=== PATIENT | male | born 1940 | race Caucasian/White ===

== ENCOUNTER 2020-01-28 10:15 | Outpatient (REF) | payer MEDICARE, OTHER, SELFPAY ==
[2020-01-28 11:51] LABS: Glucose Urine UA NEG (NEG); Leukocyte Esterase Urine NEG (NEG); Nitrite Urine NEG (NEG); PH 6.5 (5.0-8.0); Urine Blood NEG (NEG); Urine Ketones NEG (NEG); Urine Protein NEG (NEG-TRACE)
[2020-01-28 11:57] LABS: Appearance Urine CLEAR; Color Urine YELLOW; UACC Culture Trigger NO
== END 2020-01-28 10:16 | disposition home or self-care (01) ==
LOC: HO.HMGCLDS 10:15
PROVIDERS: PCP Internal Medicine; Visit Provider Internal Medicine
DX: R35.1 Nocturia (principal)
CPT/HCPCS: 81003

== ENCOUNTER → 2020-03-16 13:49 | Outpatient (BNVA) | payer MEDICARE, OTHER, SELFPAY | PROVIDERS: PCP Internal Medicine; Referring Provider Internal Medicine; Visit Provider Urology | DX: N40.1 Benign prostatic hyperplasia with lower urinary tract symptoms (principal); N13.8 Other obstructive and reflux uropathy; R35.1 Nocturia | CPT/HCPCS: 51798; 99202 ==

== ENCOUNTER 2020-06-16 10:33 | Outpatient (REF) | payer MEDICARE, OTHER, SELFPAY ==
[2020-06-16 14:46] LABS: Alanine Aminotransferase 9 U/L (0-40); Albumin Level 4.1 g/dL (3.5-5.0); Alkaline Phosphatase 71 U/L (39-117); Anion Gap 13 (12-20); Aspartate Amino Transferase 17 U/L (5-37); Bilirubin Total 1.1 mg/dL (0.0-1.0); Blood Urea Nitrogen 14 mg/dL (9-16); Calcium 9.3 mg/dL (8.4-10.2); Carbon Dioxide 30 mmol/L (22-29); Chloride 104 mmol/L (96-108); Cholesterol 141 mg/dL; Estimated Glomerular Filt Rate > 60; Glucose Fasting 78 mg/dL (60-99); HDL Cholesterol 42 mg/dL; LDL Cholesterol Calculated 85 mg/dl; Potassium 4.9 mmol/L (3.3-5.1); Sodium 142 mmol/L (135-145); Total Protein 6.8 g/dL (6.5-8.0); Triglycerides 72 mg/dL
[2020-06-16 15:07] LABS: TSH reflex Free T4 0.63 uIU/mL (0.32-4.0)
== END 2020-06-16 10:34 | disposition home or self-care (01) ==
LOC: HO.HMGCLDS 10:33
PROVIDERS: PCP Internal Medicine; Visit Provider Internal Medicine
DX: E78.9 Disorder of lipoprotein metabolism, unspecified (principal); E03.8 Other specified hypothyroidism; I10 Essential (primary) hypertension
CPT/HCPCS: 36415; 80053; 80061; 84443

== ENCOUNTER 2020-07-05 08:11 | Outpatient (REF) | payer MEDICARE, OTHER, SELFPAY ==
--- NOTE | ~2020-07-05 | XR_ITS ---
EXAMINATION: XR SHOULDER, RIGHT CLINICAL INFORMATION: Right shoulder pain. COMPARISON: None TECHNIQUE: Three views of the right shoulder. FINDINGS: The bony alignments are intact. The cortices are intact. Mild osteophyte formation is noted at the articular surface of the glenohumeral joint. Soft tissues are unremarkable. Subacromial osteophyte formation is present. XR/XR shoulder RT min 2V IMPRESSION: 1. 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 2. Subacromial osteophyte.
== END 2020-07-05 08:12 | disposition home or self-care (01) ==
LOC: HO.HOSX 08:11
PROVIDERS: Visit Provider Orthopaedic Surgery
DX: M25.511 Pain in right shoulder (principal)
CPT/HCPCS: 73030; 99202

== ENCOUNTER 2020-08-19 13:00 | Outpatient (RCR) | payer MEDICARE, OTHER, SELFPAY ==
--- NOTE | 2020-07-22 14:34 | MHC.PT.EP ---
[facility] [place] Office [place] Office [place] Office [address] [phone] F: [phone] F: [phone] F: [phone] F: [phone] Physical Therapy Plan of Care Date of Evaluation: Date of Surgery: n/a Diagnosis: R rotator cuff tear Assessment: Patient is a 79 year old R handed male who presents with s/s consistent with rotator cuff tear R shoulder. 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 Patient past medical history includes HTN. Otherwise, PMH is non-contributory. Current impairments include pain, ROM, strength, safety, independence, activity tolerance and functional mobility. Functional limitations include decreased ability to walk, stand, transfer, negotiate stairs, and perform weight bearing activities.. Patient is motivated with good rehab potential. Skilled PT will address impairments and functional limitations in order to achieve goals. Frequency and Duration: The patient will be seen 2x/week for 5 weeks Short Term Goals: I with HEP - 2weeks flexion and abd to 140, pain free - 3 weeks minor pec tightness - 3 weeks Choke Setter Goals: SPADI 30/130 or less - 5 weeks Strength 4-/5 ER and abd - 5 weeks Max pain with ADLs 2/10 - 5 weeks Treatment Plan: Modalities to reduce pain, spasms and effusion. Manual therapy to restore motion and function. Therapeutic exercise to improve strength and flexibility. Neuromuscular re-education for posture and balance. Therapeutic activities to return to functional activities of daily living. Electronically signed by: Dimitris Laguna, PT Please sign and return to therapist. Thank you for your referral.
--- NOTE | 2020-08-19 14:10 | MHC.PT.DC ---
[facility] [place] Office [place] Office [place] Office [address] Corinna Sorai [address] [phone] F: [phone] F: [phone] F: [phone] F: [phone] Physical Therapy Discharge Report Diagnosis: R rotator cuff tear Date of Surgery: n/a Date of Evaluation: 07/22/20 Date of Discharge: 08/19/20 Treatments to Date: 9 Cancellations to Date: 0 No Shows to Date: 0 Discharge Status: Improved Function Independent with HEP Discharge Summary: Pt demonstrates compliance with HEP and good technique. Minimal-no cues needed. He has met most of his goals. His AROM in standing is ~100 and in supine is WFL. He is now able to perform grooming and reaching into overhead cabinets. Pt to be d/c to I HEP. Electronically signed by: Daysi Ashford PT Please sign and return to therapist. Thank you for your referral.
== END 2020-08-19 14:11 | disposition home or self-care (01) ==
LOC: HO.PTCHIC 13:00
PROVIDERS: PCP Internal Medicine; Visit Provider Orthopaedic Surgery
DX: M75.101 Unspecified rotator cuff tear or rupture of right shoulder, not specified as traumatic (principal)
CPT/HCPCS: 97110; 97140; 97161

== ENCOUNTER 2021-01-07 12:35 | Outpatient (REF) | payer MEDICARE, OTHER, SELFPAY ==
[2021-01-07 13:42] LABS: MANUAL DIFF FLAG NO
[2021-01-07 13:51] LABS: Basophils Absolute Auto 0.1 X10*3/uL (0.0-0.2); Eosinophils Absolute Auto 0.3 X10*3/uL (0.0-0.4); Eosinophils Percent Auto 3.6 % (0-4); Hemoglobin 11.3 g/dl (14.0-18.0); Imm Gran Abs Auto 0.02 X10*3/uL (0.00-0.03); Imm Gran Pct Auto 0.3 % (0.0-0.4); Lymphocytes Percent Auto 28.5 % (20-40); Mean Corpuscular HGB Conc 30.5 g/dl (31.0-36.0); Mean Corpuscular Hemoglobin 25.2 pg (27.0-33.0); Mean Corpuscular Volume 82.4 fL (80-98); Mean Platelet Volume 10.1 fL (9.4-12.4); Monocytes Absolute Auto 0.6 X10*3/uL (0.1-1.2); Monocytes Percent Auto 8.3 % (2-11); Neutrophils Absolute Auto 4.1 X10*3/uL (2.0-8.3); Neutrophils Percent Auto 58.3 % (45-73); Platelet Count 276 X10*3/uL (160-400); Red Blood Count 4.49 X10*6/uL (4.60-5.80); Red Cell Distribution Width 15.9 % (11.0-16.0)
[2021-01-07 14:28] LABS: Alanine Aminotransferase 12 U/L (0-40); Albumin Level 4.1 g/dL (3.5-5.0); Alkaline Phosphatase 68 U/L (39-117); Anion Gap 9 (12-20); Aspartate Amino Transferase 20 U/L (5-37); Bilirubin Total 0.6 mg/dL (0.0-1.0); Blood Urea Nitrogen 18 mg/dL (9-16); Calcium 9.4 mg/dL (8.4-10.2); Carbon Dioxide 28 mmol/L (22-29); Chloride 110 mmol/L (96-108); Estimated Glomerular Filt Rate > 60; Glucose Random 83 mg/dL (60-115); Iron 23 mcg/dL (45-160); Percent Iron Saturation 7 % (15-50); Potassium 4.4 mmol/L (3.3-5.1); Sodium 143 mmol/L (135-145); Total Iron Binding Capacity 338 mcg/dL (228-428); Total Protein 6.8 g/dL (6.5-8.0); Unsaturated Iron Binding 315 ug/dL
[2021-01-07 14:45] LABS: TSH reflex Free T4 0.36 uIU/mL (0.32-4.0)
[2021-01-07 15:09] LABS: Vitamin B12 158 pg/mL (200-900)
== END 2021-01-07 12:36 | disposition home or self-care (01) ==
LOC: HO.HMGCLDS 12:35
PROVIDERS: PCP Internal Medicine; Visit Provider Internal Medicine
DX: D64.9 Anemia, unspecified (principal); D35.2 Benign neoplasm of pituitary gland; E03.8 Other specified hypothyroidism; E78.9 Disorder of lipoprotein metabolism, unspecified; I10 Essential (primary) hypertension
CPT/HCPCS: 36415; 80053; 82607; 83540; 84443; 85025

== ENCOUNTER → 2021-02-07 14:05 | Outpatient (BNVA) | payer MEDICARE, OTHER, SELFPAY | PROVIDERS: PCP Internal Medicine; Visit Provider Orthopaedic Surgery | DX: M75.101 Unspecified rotator cuff tear or rupture of right shoulder, not specified as traumatic (principal) | CPT/HCPCS: 99212 ==

== ENCOUNTER 2021-03-10 12:11 | Outpatient (REF) | payer MEDICARE, OTHER, SELFPAY ==
[2021-03-10 14:33] LABS: Prostate Specific Antigen 1.41 ng/mL (<0.05-4.0)
== END 2021-03-10 12:12 | disposition home or self-care (01) ==
LOC: HO.HMGCLDS 12:11
PROVIDERS: PCP Internal Medicine; Visit Provider Urology
DX: Z12.5 Encounter for screening for malignant neoplasm of prostate (principal); N40.1 Benign prostatic hyperplasia with lower urinary tract symptoms; N13.8 Other obstructive and reflux uropathy
CPT/HCPCS: 36415; 84153

== ENCOUNTER → 2021-03-17 11:25 | Outpatient (BNVA) | payer MEDICARE, OTHER, SELFPAY | PROVIDERS: PCP Internal Medicine; Visit Provider Urology | DX: N40.1 Benign prostatic hyperplasia with lower urinary tract symptoms (principal); N13.8 Other obstructive and reflux uropathy; R35.1 Nocturia | CPT/HCPCS: 99212 ==

== ENCOUNTER 2021-07-08 11:57 | Outpatient (REF) | payer MEDICARE, OTHER, SELFPAY ==
[2021-07-08 13:42] LABS: MANUAL DIFF FLAG NO
[2021-07-08 13:43] LABS: Basophils Absolute Auto 0.1 X10*3/uL (0.0-0.2); Basophils Percent Auto 0.9 % (0-2); Eosinophils Absolute Auto 0.3 X10*3/uL (0.0-0.4); Eosinophils Percent Auto 3.9 % (0-4); Hematocrit 46.4 % (42.0-52.0); Imm Gran Abs Auto 0.02 X10*3/uL (0.00-0.03); Imm Gran Pct Auto 0.3 % (0.0-0.4); Mean Corpuscular HGB Conc 32.3 g/dl (31.0-36.0); Mean Corpuscular Hemoglobin 29.8 pg (27.0-33.0); Mean Corpuscular Volume 92.2 fL (80.0-98.0); Mean Platelet Volume 9.6 fL (9.4-12.4); Monocytes Absolute Auto 0.5 X10*3/uL (0.1-1.2); Monocytes Percent Auto 7.1 % (2-11); Neutrophils Percent Auto 58.8 % (45-73); Platelet Count 219 X10*3/uL (160-400); Red Blood Count 5.03 X10*6/uL (4.60-5.80); Red Cell Distribution Width 14.6 % (11.0-16.0); White Blood Count 6.9 X10*3/uL (4.8-10.8)
[2021-07-08 14:06] LABS: Alanine Aminotransferase 17 U/L (0-40); Albumin Level 3.9 g/dL (3.5-5.0); Alkaline Phosphatase 67 U/L (39-117); Anion Gap 10 (12-20); Aspartate Amino Transferase 19 U/L (5-37); Bilirubin Total 0.8 mg/dL (0.0-1.0); Blood Urea Nitrogen 19 mg/dL (9-16); Calcium 9.6 mg/dL (8.4-10.2); Carbon Dioxide 28 mmol/L (22-29); Chloride 108 mmol/L (96-108); Estimated Glomerular Filt Rate > 60; Glucose Random 113 mg/dL (60-115); Potassium 4.1 mmol/L (3.3-5.1); Sodium 142 mmol/L (135-145); Total Protein 6.6 g/dL (6.5-8.0)
[2021-07-08 14:21] LABS: Vitamin B12 755 pg/mL (200-900)
[2021-07-08 14:31] LABS: Ferritin 81 ng/mL (20-250); TSH reflex Free T4 0.44 uIU/mL (0.32-4.0)
== END 2021-07-08 11:58 | disposition home or self-care (01) ==
LOC: HO.HMGCLDS 11:57
PROVIDERS: Visit Provider Internal Medicine
DX: D64.9 Anemia, unspecified (principal); D35.2 Benign neoplasm of pituitary gland; E03.8 Other specified hypothyroidism; E66.09 Other obesity due to excess calories; E78.9 Disorder of lipoprotein metabolism, unspecified; I10 Essential (primary) hypertension; R35.1 Nocturia
CPT/HCPCS: 36415; 80053; 82607; 82728; 84443; 85025

== ENCOUNTER 2022-02-07 09:00 | Outpatient (REF) | payer MEDICARE, OTHER, SELFPAY ==
[2022-02-07 11:32] LABS: MANUAL DIFF FLAG NO
[2022-02-07 11:42] LABS: Basophils Absolute Auto 0.1 X10*3/uL (0.0-0.2); Basophils Percent Auto 0.8 % (0-2); Eosinophils Absolute Auto 0.3 X10*3/uL (0.0-0.4); Eosinophils Percent Auto 4.3 % (0-4); Hematocrit 49.4 % (42.0-52.0); Hemoglobin 15.8 g/dl (14.0-18.0); Imm Gran Abs Auto 0.01 X10*3/uL (0.00-0.03); Imm Gran Pct Auto 0.2 % (0.0-0.4); Lymphocytes Absolute Auto 1.7 X10*3/uL (1.2-4.9); Lymphocytes Percent Auto 26.4 % (20-40); Mean Corpuscular Hemoglobin 30.4 pg (27.0-33.0); Mean Corpuscular Volume 95.2 fL (80.0-98.0); Mean Platelet Volume 9.7 fL (9.4-12.4); Monocytes Absolute Auto 0.6 X10*3/uL (0.1-1.2); Monocytes Percent Auto 8.4 % (2-11); Neutrophils Absolute Auto 3.9 x10*3/uL (2.0-8.3); Neutrophils Percent Auto 59.9 % (45-73); Platelet Count 199 X10*3/uL (160-400); Red Blood Count 5.19 X10*6/uL (4.60-5.80); Red Cell Distribution Width 13.2 % (11.0-16.0); White Blood Count 6.6 X10*3/uL (4.8-10.8)
[2022-02-07 12:04] LABS: Alanine Aminotransferase 16 U/L (0-40); Albumin Level 4.4 g/dL (3.5-5.0); Alkaline Phosphatase 70 U/L (39-117); Anion Gap 12 (12-20); Aspartate Amino Transferase 18 U/L (5-37); Bilirubin Total 0.9 mg/dL (0.0-1.0); Blood Urea Nitrogen 22 mg/dL (9-16); Calcium 10.6 mg/dL (8.4-10.2); Carbon Dioxide 31 mmol/L (22-29); Chloride 105 mmol/L (96-108); Cholesterol 148 mg/dL; Estimated Glomerular Filt Rate > 60; Glucose Fasting 97 mg/dL (60-99); HDL Cholesterol 47 mg/dL; LDL Cholesterol Calculated 92 mg/dl; Potassium 4.6 mmol/L (3.3-5.1); Sodium 143 mmol/L (135-145); Total Protein 7.3 g/dL (6.5-8.0); Triglycerides 46 mg/dL
[2022-02-07 12:19] LABS: Ferritin 61 ng/mL (20-250)
[2022-02-07 12:32] LABS: Vitamin B12 341 pg/mL (200-900)
[2022-02-11 14:07] LABS: Vitamin D 25-OH, D2 <4 ng/mL; Vitamin D 25-OH, D3 31 ng/mL; Vitamin D 25-OH, Total 31 ng/mL (30-100)
== END 2022-02-07 09:01 | disposition home or self-care (01) ==
LOC: HO.HMGCLDS 09:00
PROVIDERS: PCP Internal Medicine; Visit Provider Internal Medicine
DX: D35.2 Benign neoplasm of pituitary gland (principal); D64.9 Anemia, unspecified; E03.8 Other specified hypothyroidism; E53.8 Deficiency of other specified B group vitamins; E55.9 Vitamin D deficiency, unspecified; E66.09 Other obesity due to excess calories; E78.9 Disorder of lipoprotein metabolism, unspecified; R35.1 Nocturia; I10 Essential (primary) hypertension
CPT/HCPCS: 36415; 80053; 80061; 82306; 82607; 82728; 84443; 85025

== ENCOUNTER 2022-03-16 09:23 | Outpatient (REF) | payer MEDICARE, OTHER, SELFPAY ==
[2022-03-17 07:26] LABS: Urine Cytology See Pathology rpt
== END 2022-03-16 09:24 | disposition home or self-care (01) ==
LOC: HO.LAB 09:23
PROVIDERS: PCP Internal Medicine; Visit Provider Nurse Practitioner Family
DX: R31.29 Other microscopic hematuria (principal); N40.1 Benign prostatic hyperplasia with lower urinary tract symptoms; N13.8 Other obstructive and reflux uropathy
CPT/HCPCS: 51798; 88112; 99212

== ENCOUNTER 2022-03-24 14:55 | Outpatient (REF) | payer MEDICARE, OTHER, SELFPAY ==
[2022-03-24 17:13] LABS: PSA,Total (Free>4and<10) 1.59 ng/mL (0.00-4.00)
== END 2022-03-24 14:56 | disposition home or self-care (01) ==
LOC: HO.HMGCLDS 14:55
PROVIDERS: PCP Internal Medicine; Visit Provider Nurse Practitioner Family
DX: E11.69 Type 2 diabetes mellitus with other specified complication (principal); N52.1 Erectile dysfunction due to diseases classified elsewhere; Z12.5 Encounter for screening for malignant neoplasm of prostate
CPT/HCPCS: 36415; 84153

== ENCOUNTER 2022-04-21 15:29 | Outpatient (REF) | payer MEDICARE, OTHER, SELFPAY ==
--- NOTE | ~2022-04-21 | XR_ITS ---
EXAMINATION: XR HIP, LEFT CLINICAL INFORMATION: Left hip pain COMPARISON: None TECHNIQUE: Two views of the left hip. FINDINGS: No fracture or dislocation. The hip is well aligned. Mild degenerative change with osteophyte formation. The left pelvis is intact. Phleboliths noted. XR/XR hip LT min 2V IMPRESSION: Mild degenerative changes of the left hip.
== END 2022-04-21 15:30 | disposition home or self-care (01) ==
LOC: HO.HMGCX 15:29
PROVIDERS: Visit Provider Internal Medicine
DX: M25.552 Pain in left hip (principal)
CPT/HCPCS: 73502

== ENCOUNTER 2022-05-30 14:07 | Outpatient (REF) | payer MEDICARE, OTHER, SELFPAY ==
--- NOTE | ~2022-05-30 | XR_ITS ---
EXAMINATION: XR PELVIS CLINICAL INFORMATION: Hip pain. COMPARISON: 04/21/2022 TECHNIQUE: AP view of the pelvis. FINDINGS: Mild bilateral hip degenerative joint changes are seen. There is no acute fracture or dislocation. The bony pelvis is intact. Mild transitional anatomy is seen on the right at L5 with articulation of the right transverse process with the right sacrum. XR/XR pelvis 1-2V IMPRESSION: 1. Mild bilateral hip osteoarthritis with similar appearance. 2. Mild transitional anatomy on the right at L5 with articulation of the right transverse process with the right sacrum.
== END 2022-05-30 14:08 | disposition home or self-care (01) ==
LOC: HO.HOSX 14:07
PROVIDERS: Visit Provider Physician Assistant
DX: M54.16 Radiculopathy, lumbar region (principal)
CPT/HCPCS: 72170; 99202

== ENCOUNTER → 2022-06-26 08:16 | Outpatient (BNVA) | payer MEDICARE, OTHER, SELFPAY | PROVIDERS: PCP Internal Medicine; Visit Provider Internal Medicine | DX: Q76.49 Other congenital malformations of spine, not associated with scoliosis (principal); M54.16 Radiculopathy, lumbar region; M75.101 Unspecified rotator cuff tear or rupture of right shoulder, not specified as traumatic | CPT/HCPCS: 99202 ==

== ENCOUNTER 2022-07-04 14:00 | Outpatient (RCR) | payer MEDICARE, OTHER, SELFPAY ==
--- NOTE | 2022-06-09 14:59 | MHC.PT.EP ---
[facility] [place] Office [place] Office [place] Office [address] Corinna Soria [address] [phone] F: [phone] F: [phone] F: [phone] F: [phone] Physical Therapy Plan of Care Date of Evaluation: Date of Surgery: n/a Diagnosis: lumbar radiculopathy Assessment: Patient is a 81 year old male presenting to PT with complaints of pain in his L hip/low back area. Pt reports onset of pain began Fall 2021 due to insidious onset. He presents today with impairments in pain, hip ROM, quad muscle length, core strength, hip strength. Pt's current occupation is retired, with baseline physical activities including ADLs, exercise class, volunteering, sleep, stair negotiation. 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 Clinical presentation today is most consistent with signs and sx associated with possible hip pain with possible contribution from low back and pt will benefit from skilled PT 2 week x 4 weeks to address the following problems and impairments noted upon evaluation: pain, hip ROM, quad muscle length, core strength, hip strength. These problems limit the patient with the following functional activities: ADLs, exercise class, volunteering, sleep, stair negotiation. The prescribed treatment plan of care is medically necessary. Co-morbidities of HTN were identified and taken into considerations of plan of care. Pt was educated on HEP, role of PT, prognosis, POC. Frequency and Duration: The patient will be seen 2 x week x 4 weeks Short Term Goals: Pt will demonstrate improved hip MMT strength by 1/3 grade in 2 weeks. Pt will demonstrate improved quad muscle length in 2 weeks. Pt will demonstrate ability to perform L hip ROM with no discomfort in 2 weeks. Director Of First Impressions Goals: Pt will demonstrate improved Soha score by 5% in 4 weeks for improved functional mobility. Pt will demonstrate ability to sleep on his R side with min to no pain or trouble sleeping in 4 weeks for improved QOL. Pt will demonstrate reports of improved ability to ascend stairs with the L leg in 4 weeks for improved ability to complete ADLs (laundry). Treatment Plan: Modalities to reduce pain, spasms and effusion. Manual therapy to restore motion and function. Therapeutic exercise to improve strength and flexibility. Neuromuscular re-education for posture and balance. Therapeutic activities to return to functional activities of daily living. Electronically signed by: Robyn Costa PT, DPT, ATC Please sign and return to therapist. Thank you for your referral.
--- NOTE | 2022-07-04 14:52 | MHC.PT.DC ---
[facility] [place] Office [place] Office [place] Office [address] Corinna Soria [address] [phone] F: [phone] F: [phone] F: [phone] F: [phone] Physical Therapy Discharge Report Diagnosis: lumbar radiculopathy Date of Surgery: n/a Date of Evaluation: 06/09/22 Date of Discharge: 07/04/22 Treatments to Date: 7 Cancellations to Date: 0 No Shows to Date: 0 Discharge Status: Achieved Goals Improved Function Independent with HEP Discharge Summary: 07/04/2022: Pt has made good progress since beginning skilled PT. He is no longer experiencing pain at the same severity. He is able to sleep without pain which was his biggest complaint initially. He is independent and compliant with his HEP at this time and he feels comfortable continuing with this at home. I feel he is ready for d/c to HEP and reviewed recommendation to continue half-way to maintain all gains. Electronically signed by: Robyn Costa, PT, DPT, ATC Please sign and return to therapist. Thank you for your referral.
== END 2022-07-04 14:52 | disposition home or self-care (01) ==
LOC: HO.PTCHIC 14:00
PROVIDERS: PCP Internal Medicine; Visit Provider Physician Assistant
DX: M54.16 Radiculopathy, lumbar region (principal)
CPT/HCPCS: 97110; 97161; 97530

== ENCOUNTER 2022-07-24 09:54 | Outpatient (REF) | payer MEDICARE, OTHER, SELFPAY ==
[2022-07-24 11:29] LABS: MANUAL DIFF FLAG NO
[2022-07-24 11:38] LABS: Basophils Absolute Auto 0.1 X10*3/uL (0.0-0.2); Eosinophils Absolute Auto 0.3 X10*3/uL (0.0-0.4); Eosinophils Percent Auto 4.2 % (0-4); Hematocrit 48.1 % (42.0-52.0); Hemoglobin 15.7 g/dl (14.0-18.0); Imm Gran Abs Auto 0.02 X10*3/uL (0.00-0.03); Imm Gran Pct Auto 0.3 % (0.0-0.4); Lymphocytes Absolute Auto 2.7 X10*3/uL (1.2-4.9); Lymphocytes Percent Auto 38.8 % (20-40); Mean Corpuscular HGB Conc 32.6 g/dl (31.0-36.0); Mean Corpuscular Hemoglobin 30.7 pg (27.0-33.0); Mean Corpuscular Volume 94.1 fL (80.0-98.0); Mean Platelet Volume 9.3 fL (9.4-12.4); Monocytes Absolute Auto 0.5 X10*3/uL (0.1-1.2); Monocytes Percent Auto 7.8 % (2-11); Neutrophils Absolute Auto 3.3 x10*3/uL (2.0-8.3); Neutrophils Percent Auto 47.9 % (45-73); Platelet Count 196 X10*3/uL (160-400); Red Blood Count 5.11 X10*6/uL (4.60-5.80); Red Cell Distribution Width 13.5 % (11.0-16.0); White Blood Count 6.9 X10*3/uL (4.8-10.8)
[2022-07-24 12:46] LABS: Alanine Aminotransferase 17 U/L (0-40); Albumin Level 3.9 g/dL (3.5-5.0); Alkaline Phosphatase 61 U/L (39-117); Anion Gap 9 (12-20); Aspartate Amino Transferase 19 U/L (5-37); Blood Urea Nitrogen 16 mg/dL (9-16); Calcium 9.6 mg/dL (8.4-10.2); Carbon Dioxide 32 mmol/L (22-29); Chloride 107 mmol/L (96-108); Cholesterol 150 mg/dL; Estimated Glomerular Filt Rate > 60; Glucose Fasting 88 mg/dL (60-99); HDL Cholesterol 43 mg/dL; LDL Cholesterol Calculated 96 mg/dl; Potassium 4.3 mmol/L (3.3-5.1); Sodium 144 mmol/L (135-145); Total Protein 6.6 g/dL (6.5-8.0); Triglycerides 59 mg/dL
[2022-07-24 13:03] LABS: TSH reflex Free T4 1.24 uIU/mL (0.32-4.0); Vitamin B12 286 pg/mL (200-900)
[2022-07-29 15:43] LABS: Vitamin D 25-OH, D2 <4 ng/mL; Vitamin D 25-OH, D3 22 ng/mL; Vitamin D 25-OH, Total 22 ng/mL (30-100)
== END 2022-07-24 09:55 | disposition home or self-care (01) ==
LOC: HO.HMGCLDS 09:54
PROVIDERS: PCP Internal Medicine; Visit Provider Internal Medicine
DX: E03.8 Other specified hypothyroidism (principal); E53.8 Deficiency of other specified B group vitamins; E55.9 Vitamin D deficiency, unspecified; E66.09 Other obesity due to excess calories; E78.9 Disorder of lipoprotein metabolism, unspecified; I10 Essential (primary) hypertension; R35.1 Nocturia; D35.2 Benign neoplasm of pituitary gland
CPT/HCPCS: 36415; 80053; 80061; 82306; 82607; 84443; 85025

== ENCOUNTER 2022-10-20 12:38 | Outpatient (AMB) | payer MEDICARE, OTHER, SELFPAY ==
--- NOTE | 2022-10-20 12:40 | MHC.PC.OV ---
Vital Signs 10/20/22 12:41 Height 5 ft 11 in Weight 212 lb BMI 29.6 BP 138/78 Blood Pressure Location Lt brachial Position Sitting Pulse 60 Pulse Source Pulse Oximeter Pulse Oximetry (%) 97 Intake Visit Reasons: 3m follow up Allergies morphine Allergy (Unknown, Verified 10/20/22 12:42) Unknown ENVIROMENTAL Allergy (Unknown, Uncoded 07/21/22 11:25) POST NASAL DRIP Medication List - Last Reconciled 10/20/22 by Wilfredo Bernard MD aspirin (Adult Aspirin Regimen) 81 mg PO DAILY bromocriptine 5 mg (2 x 2.5 mg) PO BEDTIME calcium carbonate-vitamin D3 600 mg-5 mcg (200 unit) 1 tab PO BID cetirizine (Allergy Relief (cetirizine)) 10 mg PO DAILY cholecalciferol (vitamin D3) 25 mcg PO DAILY levothyroxine 100 mcg PO QAM losartan 100 mg PO DAILY metoprolol succinate ER 50 mg PO DAILY 90 days pravastatin 40 mg PO DAILY tamsulosin 0.4 mg PO BEDTIME Tobacco use date assessed: 04/21/22 Fall risk assessment: No Falls in past year Last assessed Fall Risk: 10/20/22 Dental Screening Dental Screen Date: 10/20/22 Did you have a dental visit in the last 12 months?: Yes Did you have a dental problem in the last 6 months where you did not have access to dental care?: No Was dental information given to patient?: Patient has dentist HPI 3m follow up HPI Details Patient is 82-year-old gentleman came in today for his regular follow-up, he was recently at [facility] due to hypovolemia secondary to diarrhea He is doing well now back to his baseline however patient says that he does not have as much stamina as he used to last year. 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 Mother Colon cancer Brother No problems noted. Brother No problems noted. Sister No problems noted. Social History Housing: House Alcohol intake: never Patient Tobacco Use Status: Former Tobacco user Quit Date: 1984 e-Cigarette/Vaping Use: Never Used service: Yes Current occupational status: retired Cognitive needs: No Hearing needs: No Vision needs: No Questionnaire PHQ-9 Over the last 2 weeks, how often have you been bothered by any of the following problems? 1. Little interest or pleasure in doing things: not at all 2. Feeling down, depressed, or hopeless: not at all 3. Trouble falling or staying asleep, or sleeping too much: not at all 4. Feeling tired or having little energy: not at all 5. Poor appetite or overeating: not at all 6. Feeling bad about yourself - or that you are a failure or have let yourself or your family down: not at all 7. Trouble concentrating on things, such as reading the newspaper or watching television: not at all 8. Moving or speaking so slowly that other people could have noticed. Or the opposite - being so fidgety or restless that you have been moving around a lot more than usual: not at all 9. Thoughts that you would be better off or of hurting yourself in some way: not at all Total score: 0 Depression Screening Interpretation: Negative 71359 - PHQ-9 Billing: Yes Source: Developed by Drs. Judah Isabel, Willa Geiger, Farhad Malcolm and colleagues, with an educational maritza from [employer] Thrive Questionnaire Date Thrive assessed: 10/20/22 I am a: Patient What is your living situation today?: I have a steady place to live Within the past 12 months, did the food you bought not last and you didn't have the money to get more?: Never true Within the past 12 months, did you worry whether your food would run out before you got money to buy more?: Never true Do you have trouble paying for medicines?: No Do you have trouble getting transportation to medical appointments?: No Do you have trouble paying your heating and electricity bill?: No Do you have trouble taking care of your child, family member or friend?: No Do you have trouble with day-to-day activities such as bathing, preparing meals, shopping, managing finances, etc.?: No Are you currently unemployed and looking for a job?: No Are you interested in more education?: No Please select the resources that you would like help with: None Currently or been in a relationship where the following occur: no concerns reported DIPAK-7 AMB Questionnaire DIPAK-7 Date DIPAK - 7 assessed: 10/20/22 Feeling nervous, anxious, or on edge: 0 = Not at all Not being able to stop or control worryin = Not at all Worrying too much about different things: 0 = Not at all Trouble relaxin = Several days Being so restless that it is hard to sit still: 0 = Not at all Becoming easily annoyed or irritable: 0 = Not at all Feeling afraid as if something awful might happen: 0 = Not at all Total DIPAK-7 score (0-4 normal; 5-9 mild; 10-14 moderate; 15-21 severe): 1 Source: Developed by Drs. Judah Isabel, Willa Geiger, Farhad Malcolm and colleagues, with an educational maritza from [employer]). DIPAK-7 Assessment Billing DIPAK-7 Assessment Tool: DIPAK-7 Assessment 14873 Review of Systems Const Denies chills and Denies fever(s) ENT Denies epistaxis and Denies nasal discharge Card Denies chest pain Resp Denies chest congestion, Denies cough and Denies hemoptysis GI Denies diarrhea and Denies nausea Skin/Breast Denies rash Neuro Reports no additional complaints Psych Reports no additional complaints Endo Reports no additional complaints Physical exam (Primary Care) Vital Signs: Last Vital Signs Pulse 60 10/20/22 12:41 BP 138/78 10/20/22 12:41 Pulse Ox 97 10/20/22 12:41 BMI result Body Mass Index 29.6 Tobacco/Smoking Status: Tobacco use Status Tobacco use date assessed 04/21/22 10/20/22 12:43 Patient Tobacco Use Status Former Tobacco user 10/20/22 12:43 e-Cigarette/Vaping Use Never Used 10/20/22 12:43 PHQ-9: PHQ-9 Score PHQ-9: Total score 0 10/20/22 12:46 Depression Screening Interpretation: Negative Thrive Assessment: Date of Thrive Assessment Date Thrive assessed 10/20/22 10/20/22 12:46 Currently or been in a relationship where the following occur: no concerns reported Const General: cooperative, comfortable and no acute distress Orientation/consciousness: patient oriented x3 HENMT Head: Yes normocephalic Eyes General: appearance normal, both eyes and all related structures Neck Neck: Yes supple Resp Effort & Inspection: normal respiratory effort, no cough and no stridor Cardio Rhythm: regular rhythm Heart sounds: S1 normal heart sound present and S2 normal heart sound present Skin General skin exam: turgor normal Neuro General: patient oriented x3, tone normal and moves all extremities Extrem Right lower extremity: no edema Left lower extremity: no edema Assessment and Plan Assessment & Plan (1) Hypertension, essential: Code(s): I10 - Essential (primary) hypertension (2) 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 (3) Other specified hypothyroidism: Code(s): E03.8 - Other specified hypothyroidism (4) Lipid disorder: Code(s): E78.9 - Disorder of lipoprotein metabolism, unspecified (5) Nocturia: Code(s): R35.1 - Nocturia (6) Obesity due to excess calories: Code(s): E66.09 - Other obesity due to excess calories (7) B12 deficiency: Code(s): E53.8 - Deficiency of other specified B group vitamins (8) Vitamin D deficiency: Code(s): E55.9 - Vitamin D deficiency, unspecified (9) AAA (abdominal aortic aneurysm): Code(s): I71.40 - Abdominal aortic aneurysm, without rupture, unspecified (10) Family history of coronary artery disease: Code(s): Z82.49 - Family history of ischemic heart disease and other diseases of the circulatory system Plan Patient is 82-year-old gentleman came in today for his regular follow-up, he was recently at [facility] due to hypovolemia secondary to diarrhea He is doing well now back to his baseline however patient says that he does not have as much stamina as he used to last year. 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 Follow-up 3 months Orders: Referrals Cardiology Referral I71.40 - Abdominal aortic aneurysm, without rupture, unspecified, Z82.49 - Family history of ischemic heart disease and other diseases of the circulatory system Coding Level of Care Code Est Pt Level 4 (44880) Diagnoses Hypertension, essential I10 Prolactinoma D35.2 Other specified hypothyroidism E03.8 Lipid disorder E78.9 Nocturia R35.1 Obesity due to excess calories E66.09 B12 deficiency E53.8 Vitamin D deficiency E55.9 AAA (abdominal aortic aneurysm) I71.40 Family history of coronary artery disease Z82.49 Additional Codes DIPAK-7 Assessment Billing - DIPAK-7 Assessment Tool: DIPAK-7 Assessment [id number] ([id number])
[2022-10-20 12:41] VITALS: BP 138/78; PULSE 60; O2SAT 97; BMI 29.6
== END 2022-10-20 13:03 | disposition home or self-care (01) ==
PROVIDERS: PCP Internal Medicine; Visit Provider Internal Medicine
DX: I10 Essential (primary) hypertension (principal); D35.2 Benign neoplasm of pituitary gland; E03.8 Other specified hypothyroidism; I71.40 Abdominal aortic aneurysm, without rupture, unspecified; E66.09 Other obesity due to excess calories; R35.1 Nocturia; Z68.29 Body mass index [BMI] 29.0-29.9, adult; E78.9 Disorder of lipoprotein metabolism, unspecified; E53.8 Deficiency of other specified B group vitamins; E55.9 Vitamin D deficiency, unspecified; Z82.49 Family history of ischemic heart disease and other diseases of the circulatory system
CPT/HCPCS: 99214

== ENCOUNTER 2022-11-29 11:23 | Outpatient (AMB) | payer MEDICARE, OTHER, SELFPAY ==
[2022-11-29 11:31] VITALS: BP 110/76; PULSE 62; BMI 29.5
--- NOTE | 2022-11-29 11:31 | A.OFFVIS_ITS ---
Intake Vital Signs 11/29/22 11:31 Height 5 ft 11 in Weight 211 lb 10.3 oz BMI 29.5 BP 110/76 Blood Pressure Location Lt brachial Pulse 62 Intake Visit Reasons: Dr. garima Villalobos/ abdominal aortic aneurysm Intake Note: New patient Dr Tai dx AAA seen screening has grown c/o having trouble exercising [employer] Required: No Allergies morphine Allergy (Unknown, Verified 10/20/22 12:42) Unknown ENVIROMENTAL Allergy (Unknown, Uncoded 07/21/22 11:25) POST NASAL DRIP Medication List - Last Reconciled 11/29/22 by Regulo Kelly MD aspirin (Adult Aspirin Regimen) 81 mg PO DAILY bromocriptine 5 mg (2 x 2.5 mg) PO BEDTIME calcium carbonate-vitamin D3 600 mg-5 mcg (200 unit) 1 tab PO BID cetirizine (Allergy Relief (cetirizine)) 10 mg PO DAILY cholecalciferol (vitamin D3) 25 mcg PO DAILY levothyroxine 100 mcg PO QAM losartan 100 mg PO DAILY metoprolol succinate ER 50 mg PO DAILY 90 days pravastatin 40 mg PO DAILY tamsulosin 0.4 mg PO BEDTIME HPI HPI Comments History of Present Illness Details Thank you Delfo in cardiology consultation today for management of abdominal aortic aneurysm. He has [facility] and recently was noted to have increased abdominal aortic aneurysm size to 4.6 cm. He was recommended follow-up abdominal ultrasound in 6 months to see if there was rapid expansion that would require intervention. He has no abdominal discomfort. However he has noted that with exertion activity his functional capacity is quite diminished over the last many months. He complains of increasing exertional fatigue and shortness of breath. He has noted on EKG to have left bundle-branch block, he was not aware of the same. He is worried as he has strong family history of atherosclerotic heart disease in his brother. He also has prior history of hyperlipidemia. He also has longstanding history of hypertension which is currently treated. He is currently on low intensity statin therapy. 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 Mother Colon cancer Brother No problems noted. Brother No problems noted. Sister No problems noted. Social History Housing: House Alcohol intake: never Patient Tobacco Use Status: Former Tobacco user Quit Date: 1984 e-Cigarette/Vaping Use: Never Used service: Yes Current occupational status: retired Cognitive needs: No Hearing needs: No Vision needs: No Review of Systems Const Denies chills, Denies daytime sleepiness, Denies fatigue, Denies fever(s), Denies frequent falls, Denies poor appetite, Denies snoring, Denies stops breathing during sleep, Denies weakness, Denies weight gain and Denies weight loss Eyes Denies loss of vision ENT Denies dizziness and Denies hearing loss Card Denies chest pain, Denies claudication, Denies leg edema, Denies lightheadedness, Denies palpitations, Denies dyspnea, Denies dyspnea on exertion and Denies orthopnea Resp Denies cough, Denies excessive phlegm production, Denies dyspnea, Denies dyspnea on exertion, Denies snoring and Denies wheezing GI Denies abdominal pain, Denies hematochezia, Denies change in bowel habits, Denies nausea and Denies vomiting Denies dysuria and Denies urinary frequency Musc Denies arthralgias, Denies muscle weakness, Denies numbness and Denies other (frequent falls) Skin/Breast Denies nail changes and Denies rash Neuro Denies Abnormal speech present, Denies dizziness, Denies frequent falls, Denies loss of vision, Denies memory loss, Denies numbness and Denies weakness Psych Denies depression and Denies memory loss Endo Denies fatigue and Denies palpitations Ben/Lymph Reports easy bruising and Reports other (anemia) Aller/Immun Denies wheezing Physical Exam Vital Signs: Last Vital Signs Pulse 62 11/29/22 11:31 BP 110/76 11/29/22 11:31 BMI result Body Mass Index 29.5 Const General: cooperative, comfortable, no acute distress, alert, awake and well groomed Nutritional Appearance: overweight Orientation/consciousness: patient oriented x3 Limitations: no limitations HEENT Head: Yes normocephalic and Yes atraumatic Neck Neck: Yes trachea midline, Yes supple and Yes no JVD Resp Effort & Inspection: normal respiratory effort Auscultation: clear to auscultation bilaterally Cardio Jugular venous distension: no JVD Palpation: normal PMI Rate: regular rate Rhythm: regular rhythm Heart sounds: S1 normal heart sound present, S2 normal heart sound present, no click, no gallops, no murmurs and no rubs GI Auscultation: normal bowel sounds Skin General skin exam: no rashes or lesions noted Neuro General: patient oriented x3 and no focal motor deficits Speech: No Abnormal speech present Extrem General: Yes no clubbing, cyanosis or edema Psych Appearance: grossly normal Office Procedures EKG Details: EKG shows normal sinus rhythm with left bundle-branch block at 62 beats per minute [id number], Complete Assessment & Plan Assessment & Plan (1) LBBB (left bundle branch block): Code(s): I44.7 - Left bundle-branch block, unspecified Plan: Patient with left bundle-branch block of unclear duration. He was not aware of this. We discussed about pathophysiology of left bundle-branch block. Given symptoms exertional fatigue and shortness of breath as well as multiple risk factors including his own history of abdominal aortic aneurysm, hypertension, hyperlipidemia, family history as well as advanced age structural heart disease needs to be ruled out. There is high likelihood of underlying obstructive coronary artery disease. Would suggest him to undergo a vasodilating myocardial perfusion imaging in near future. Also suggest echocardiogram to evaluate LV systolic and diastolic function to evaluate for left ventricular hypertrophy. This was discussed with him. He understands agrees. Further treatment based on the findings. (2) AAA (abdominal aortic aneurysm): Code(s): I71.40 - Abdominal aortic aneurysm, without rupture, unspecified Plan: Abdominal aortic aneurysm being followed at outside facility. Agree with follow-up in the near future with abdominal ultrasound. If there is sudden increase in the size he will require repair of his abdominal aortic aneurysm and most likely with endovascular repair. This was discussed with him. Continue aggressive risk factor modification. Low-dose aspirin therapy is advised continue aggressive blood pressure control which is currently well optimized. LDL is not well optimized will switch him to Crestor 20 mg daily to target his goal LDL to less than 70 mg/dL. Follow up in the clinic after above-mentioned test. Thank you for allowing me to partake in his care Orders: Orders CA echo transthoracic complete 11/29/22 I44.7 - Left bundle-branch block, unspecified ECG 3 day holter monitor 11/29/22 I44.7 - Left bundle-branch block, unspecified Lipid Panel 6 Weeks I25.10 - Atherosclerotic heart disease of [place] coronary artery without angina pectoris, I71.40 - Abdominal aortic aneurysm, without rupture, unspecified CA lexiscan stress w soledad 11/29/22 I44.7 - Left bundle-branch block, unspecified Medications: New rosuvastatin (Crestor) 20 mg PO DAILY 30 tabs 5RF Discontinued pravastatin Discontinued Reason: Doctor's Order 40 mg PO DAILY 90 tabs 0RF Coding Level of Care Code New Pt Level 4 (97913) Diagnoses LBBB (left bundle branch block) I44.7 AAA (abdominal aortic aneurysm) I71.40 CPT Codes EKG - CPT: 20031-[id number], Complete ([id number])
== END 2022-11-29 12:16 | disposition home or self-care (01) ==
PROVIDERS: PCP Internal Medicine; Visit Provider Internal Medicine Cardiovascular Disease
DX: I44.7 Left bundle-branch block, unspecified (principal); I71.40 Abdominal aortic aneurysm, without rupture, unspecified
CPT/HCPCS: 93010; 99204

== ENCOUNTER → 2022-11-29 11:23 | Outpatient (BNVA) | payer MEDICARE, OTHER, SELFPAY | PROVIDERS: PCP Internal Medicine; Visit Provider Internal Medicine Cardiovascular Disease | DX: I71.40 Abdominal aortic aneurysm, without rupture, unspecified (principal); I44.7 Left bundle-branch block, unspecified; Z79.82 Long term (current) use of aspirin; Z79.899 Other long term (current) drug therapy | CPT/HCPCS: 93005; 99202 ==

== ENCOUNTER → 2022-12-28 07:49 | Outpatient (REF) | payer MEDICARE, OTHER, SELFPAY ==
--- NOTE | 2022-12-28 07:55 | HM_ITS ---
* Total monitoring time 3 days. * Underlying rhythm is sinus. Ventricular rate 63/Min. Range 39-104/Min. * Rare supraventricular ectopy with low burden. Very brief runs noted, upto 10 beats. * Rare ventricular ectopy with low burden. * No sustained arrhythmias. * No significant pauses or AV blocks. * No patient markers or events in diary. MTDD
== END ==
LOC: HO.CARD 07:49
PROVIDERS: PCP Internal Medicine; Visit Provider Internal Medicine Cardiovascular Disease
DX: I44.7 Left bundle-branch block, unspecified (principal)
CPT/HCPCS: 78452; 93017; 93242; 93306; A9500; J0280; J2785; Q9957

== ENCOUNTER → 2022-12-28 07:55 | Outpatient (BNV) | payer MEDICARE, OTHER, SELFPAY | PROVIDERS: PCP Internal Medicine; Visit Provider Nurse Practitioner Family | DX: I47.10 Supraventricular tachycardia, unspecified (principal) | CPT/HCPCS: 78452; 93016; 93018; 93244; 93306 ==

== ENCOUNTER 2023-01-04 08:38 | Outpatient (REF) | payer MEDICARE, OTHER, SELFPAY ==
[2023-01-04 12:11] LABS: Cholesterol 109 mg/dL (<200); HDL Cholesterol 40 mg/dL (>40); LDL Cholesterol Calculated 58 mg/dL (<100); Triglycerides 57 mg/dL (<150)
== END 2023-01-04 08:39 | disposition home or self-care (01) ==
LOC: HO.HMGCLDS 08:38
PROVIDERS: PCP Internal Medicine; Visit Provider Internal Medicine Cardiovascular Disease
DX: I25.10 Atherosclerotic heart disease of native coronary artery without angina pectoris (principal); I71.40 Abdominal aortic aneurysm, without rupture, unspecified
CPT/HCPCS: 36415; 80061

== ENCOUNTER 2023-01-08 13:26 | Outpatient (AMB) | payer MEDICARE, OTHER, SELFPAY ==
[2023-01-08 13:27] VITALS: BP 114/72; PULSE 67; BMI 29.5
--- NOTE | 2023-01-08 13:27 | MHC.OFFVIS ---
Intake Vital Signs 01/08/23 13:27 Height 5 ft 11 in Weight 211 lb 10.3 oz BMI 29.5 BP 114/72 Blood Pressure Location Lt brachial Position Sitting Pulse 67 Pulse Source Pulse Oximeter Intake Visit Reasons: 6 wk fu after mibi/echo/holter/lipids Intake Note: 6wk f/u after testing [employer] Inspector Required: No Allergies morphine Allergy (Unknown, Verified 01/08/23 13:30) Unknown ENVIROMENTAL Allergy (Unknown, Uncoded 07/21/22 11:25) POST NASAL DRIP Medication List - Last Reconciled 01/08/23 by Marsha Dominguez NP-C aspirin (Adult Aspirin Regimen) 81 mg PO DAILY bromocriptine 5 mg (2 x 2.5 mg) PO BEDTIME calcium carbonate-vitamin D3 600 mg-5 mcg (200 unit) 1 tab PO BID cetirizine (Allergy Relief (cetirizine)) 10 mg PO DAILY cholecalciferol (vitamin D3) 25 mcg PO DAILY levothyroxine 100 mcg PO QAM losartan 100 mg PO DAILY metoprolol succinate ER 50 mg PO DAILY 90 days rosuvastatin (Crestor) 20 mg PO DAILY tamsulosin 0.4 mg PO BEDTIME HPI 6 wk fu after mibi/echo/holter/lipids HPI Details Bandar is an 82-year-old male with past medical history of hypertension, hyperlipidemia, abdominal aortic aneurysm, left bundle branch block who presents for follow-up after recent echocardiogram and stress test. Today he reports that his primary complaint has been increasing fatigue with his same physical activity. He tells me that 2 years ago he was able to walk 10,000 steps. Now he is able to walk 5000 steps and needs to stop as he is fatigued. He denies having chest discomfort at rest or with activity. He says his breathing is primarily comfortable. No PND, orthopnea or edema. No palpitations, presyncope, syncope, falls. He is taking his meds as directed. He is concerned about his abdominal aortic aneurysm and states the last time it was checked was March. He has an appointment to have it reached checked in February at the [place] would prefer to have it checked here at [facility] [place]. [facility] Medical History Painful arc syndrome of right shoulder Nocturia Lipid disorder Other specified hypothyroidism Prolactinoma Hypertension, essential Surgical History History of biopsy History of surgery Family History Father No problems noted. Mother Colon cancer Brother No problems noted. Brother No problems noted. Sister No problems noted. Social History Housing: House Alcohol intake: never Patient Tobacco Use Status: Former Tobacco user Quit Date: 1984 e-Cigarette/Vaping Use: Never Used service: Yes Current occupational status: retired Cognitive needs: No Hearing needs: No Vision needs: No Review of Systems Const Details: Getting fatigued with physical activity such as walking over 5000 steps All systems reviewed & are unremarkable except as noted in HPI and below ENT Denies dizziness Card Denies chest pain, Denies chest pain at rest, Denies chest pain with activity, Denies rapid heart rate, Denies pedal edema, Denies edema, Denies leg edema, Denies lightheadedness, Denies palpitations, Denies dyspnea, Denies dyspnea on exertion and Denies orthopnea Resp Denies cough, Denies dyspnea and Denies dyspnea on exertion GI Denies hematochezia and Denies change in stool character Musc Denies abnormal gait, Denies limited range of motion, Denies muscle cramps, Denies muscle weakness, Denies numbness, Denies radiating pain into limb, Denies stiffness and Denies tingling Neuro Denies abnormal gait, Denies dizziness, Denies numbness and Denies tingling Endo Denies palpitations Physical Exam Vital Signs: Last Vital Signs Pulse 67 01/08/23 13:27 BP 114/72 01/08/23 13:27 BMI result Body Mass Index 29.5 Const General: cooperative, healthy appearing, comfortable and no acute distress Orientation/consciousness: patient oriented x3 Neck Neck: Yes normal visual inspection Resp Effort & Inspection: normal respiratory effort Auscultation: clear to auscultation bilaterally, no crackles, no rales, no rhonchi and no wheezes Cardio Jugular venous distension: no JVD Rate: regular rate Rhythm: regular rhythm Heart sounds: S1 normal heart sound present, S2 normal heart sound present, no murmurs and no rubs Neuro General: patient oriented x3 Extrem General: Yes normal to inspection Psych Appearance: grossly normal Mental Status: mental status grossly normal Speech and movement: Normal speech and movement present Assessment & Plan Assessment & Plan (1) AAA (abdominal aortic aneurysm): Code(s): I71.40 - Abdominal aortic aneurysm, without rupture, unspecified Plan: History of abdominal aortic aneurysm. According to last visit, per [place] records, abdominal aortic aneurysm 4.6 cm early this year. His next ultrasound is planned for February at the [place]. He is requesting to have the ultrasound here at [facility] since we will be following his aneurysm and treating it accordingly. Blood pressure is well controlled. LDL well controlled with rosuvastatin. No reports of abdominal discomfort. Will check abdominal ultrasound to assess aortic aneurysm. Plan to call him with results. Instructed on no heavy lifting. Light physical activity as tolerated. (2) LBBB (left bundle branch block): Code(s): I44.7 - Left bundle-branch block, unspecified Plan: Present on EKG. Echocardiogram done 12/28/2022 shows EF 54%, no valve abnormalities, mild increase in the LV wall thickness. Nuclear stress test done 12/29/2022 shows no clear ischemia or infarct, perfusion defects in the septum and inferior wall probably related to known left bundle branch block, normal EF. Reviewed results with him in detail. (3) Activity intolerance related to fatigue: Code(s): R53.83 - Other fatigue Plan: Cardiac testing done as above for reports of fatigue and decreased activity tolerance compared to prior levels. In the past he could walk 10,000 steps and feel good. Now he walks 5000 steps and feels fatigued. No anginal sounding symptoms. EF is normal and nuclear stress test shows no ischemia or infarct. Offered reassurance. He will continue to try to increase his walking. Orders: Orders US abdominal aortic aneurysm Today I71.40 - Abdominal aortic aneurysm, without rupture, unspecified Coding Level of Care Code Est Pt Level 3 (88008) Diagnoses AAA (abdominal aortic aneurysm) I71.40 LBBB (left bundle branch block) I44.7 Activity intolerance related to fatigue R53.83 Time Spent (min) 24
== END 2023-01-08 14:13 | disposition home or self-care (01) ==
PROVIDERS: PCP Internal Medicine; Visit Provider Nurse Practitioner Family
DX: I71.40 Abdominal aortic aneurysm, without rupture, unspecified (principal); I44.7 Left bundle-branch block, unspecified; R53.83 Other fatigue
CPT/HCPCS: 99213

== ENCOUNTER → 2023-01-08 13:26 | Outpatient (BNVA) | payer MEDICARE, OTHER, SELFPAY | PROVIDERS: PCP Internal Medicine; Visit Provider Nurse Practitioner Family | DX: I71.40 Abdominal aortic aneurysm, without rupture, unspecified (principal); I44.7 Left bundle-branch block, unspecified; R53.83 Other fatigue | CPT/HCPCS: 99212 ==

== ENCOUNTER 2023-01-10 08:47 | Outpatient (AMB) | payer MEDICARE, OTHER, SELFPAY ==
[2023-01-10 08:53] VITALS: BP 138/80; PULSE 59; O2SAT 95; BMI 29.9
--- NOTE | 2023-01-10 08:53 | A.OFFVIS_ITS ---
Intake Vital Signs 01/10/23 08:53 Height 5 ft 11 in Weight 214 lb 4 oz BMI 29.9 BP 138/80 Blood Pressure Location Lt brachial Position Sitting Pulse 59 Pulse Source Pulse Oximeter Pulse Oximetry (%) 95 Oxygen Delivery Method Room Air Intake Visit Reasons: V G0438 Allergies morphine Allergy (Unknown, Verified 01/10/23 08:53) Unknown ENVIROMENTAL Allergy (Unknown, Uncoded 07/21/22 11:25) POST NASAL DRIP Medication List - Last Reconciled 01/10/23 by Wilfredo Bernard MD aspirin (Adult Aspirin Regimen) 81 mg PO DAILY bromocriptine 5 mg (2 x 2.5 mg) PO BEDTIME calcium carbonate-vitamin D3 600 mg-5 mcg (200 unit) 1 tab PO BID cetirizine (Allergy Relief (cetirizine)) 10 mg PO DAILY cholecalciferol (vitamin D3) 25 mcg PO DAILY levothyroxine 100 mcg PO QAM losartan 100 mg PO DAILY metoprolol succinate ER 50 mg PO DAILY 90 days rosuvastatin (Crestor) 20 mg PO DAILY tamsulosin 0.4 mg PO BEDTIME HPI [facility] G0438 HPI Details Patient is 82-year-old male came in today for a follow-up appointment and Medicare wellness visit 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 Kelly for AAA size of 4.6 cm and left bundle branch block For the testing was ordered in the form of echocardiogram and [facility] imaging His lipid medication was changed to Crestor 20 mg He had lipid profile through Cardiology however other labs were missing so I have ordered those for the patient Hypertension:? Patient is on metoprolol to 50 mg daily he is to continue losartan 100 BPH stable with Flomax , seeing urologist Hypothyroidism: Continue levothyroxine 100 mcg daily . He is also taking bromocriptine 2.5 mg 2 tablets at night?for prolactinoma Follow-up 3 months HPI Comments History of Present Illness Details AWV Medical/social history reviewed Past medical history reviewed Kiana of care / care team list updated Surgical/ hospitalization history reviewed Current medications including OTC and supplements reviewed Family history reviewed Tobacco controlled form updated Alcohol use form updated Illicit drug use in social history reviewed Current diagnosis of depression ?screening updated Appropriate PHQ 2/PHQ-9 completed . Vital signs reviewed Alcohol tobacco drug use reviewed and discussed . MMSE completed . ? Fall risk: ?Assessed Fall history: ?None Have you had any falls with injury in the past year?? No Have you had 2 or more falls in the past year?? No Fall risk assessment completed Home safety discussed with the patient Functional ability assessed and discussed and documented Activities of daily living reviewed and appropriate actions taken . HRA filled out by the patient and reviewed by provider and scanned . Appropriate written screening schedule established . Any health advise needed provided . Advance care planning discussed with the patient , patient was not able to make a decision today so he took the paper with him Paperwork explained to patient in detail. Examination IPPE/AWE: Balance intact Romberg intact Tandem walk intact walk-in turn intact rise from sit to stand intact . ?Hearing ?whisper test pass . Medication list reviewed, patient is stable on medications All other providers patient is seeing discussed and noted . [facility] Medical History Painful arc syndrome of right shoulder Nocturia Lipid disorder Other specified hypothyroidism Prolactinoma Hypertension, essential Surgical History (Reviewed 01/10/23 @ :24 by Wilfredo Bernard MD) History of biopsy History of surgery Family History Father No problems noted. Mother Colon cancer Brother No problems noted. Brother No problems noted. Sister No problems noted. Social History Housing: House Alcohol intake: never Patient Tobacco Use Status: Former Tobacco user Quit Date: 1984 e-Cigarette/Vaping Use: Never Used service: Yes Current occupational status: retired Cognitive needs: No Hearing needs: No Vision needs: No Questionnaire Medicare Wellness Checkup What is your age?: 82 or older What gender do you identify with?: male During the past 4 weeks, how much have you been bothered by emotional problems such as feeling anxious, depressed, irritable, sad or downhearted, and blue?: not at all During the past 4 weeks, has your physical & emotional health limited your social activities with family, friends, neighbors, or groups?: not at all During the past 4 weeks, how much bodily pain have you generally had?: very mild pain During the past 4 weeks, was someone available to help you if you needed & wanted help?: yes, as much as I wanted During the past 4 weeks, what was the hardest physical activity you could do for at least 2 minutes?: moderate Can you get to places out of walking distance without help? (For eg., can you travel alone on buses, taxis or drive your car?): Yes Can you go shopping for groceries or clothes without someone's help?: Yes Can you prepare your own meals?: Yes Can you do your housework without help?: Yes Because of any health problems, do you need the help of another person with your personal care needs such as eating, bathing, dressing or getting around the house?: No Can you handle your own money without help?: Yes During the past 4 weeks, how would you rate your health in general?: very good During the past 4 weeks how have things been going for you?: very well; could hardly better Are you having difficulties driving your car?: no Do you always fasten your seat belt when you are in a car?: yes, usually During past 4 weeks, have you been bothered by the following: never: Falling or dizzy when standing up, Sexual problems?, Trouble eating well?, Teeth or denture problems? and Problems using the telephone? and sometimes: Tiredness or fatigue? Have you fallen 2 or more times in the past year?: No Are you afraid of falling?: No Are you a smoker?: no During the past 4 weeks, how many drinks of wine, beer, or other alcoholic beverages did you have?: 1 drink or less per week Do you exercise for about 20 minutes 3 or more times a week?: yes, most of the time Have you been given information to help with the following?: no: Hazards in your house that might hurt you? and no: Keeping track of your medications? How often do you have trouble taking medicines the way you have been told to take them?: I always take medicine as prescribed How confident are you that you can control & manage most of your health problems?: very confident What is your race?: White Mini Mental State Exam (MMSE) Orientation What is the (year) (season) (date) (day) (month)?: year, season, date, day and month Where are we (state) (county) (town or city) (hospital) (floor)?: state, county, town or city, hospital/clinic and floor Score Score: 10 Activity of Daily Living Bathing - sponge bath, tub bath or shower: receives no assistance (gets in/out by self, if usual bathing means Dressing - getting clothes from closets & drawers, including inner/outer garments & fasteners.: gets clothes & gets completely dressed without help Toileting - going to the 'toilet room' for urine/bowel elimination & cleaning self/arranging clothes: goes to toilet room, cleans self, arranges clothes without help Transfer: moves in & out of bed and chair without help (may use support object) Continence: controls urination/bowel movements completely by self Feeding: feeds self without help Total Score: 0 Information obtained from: patient Using telephone: independent Traveling: independent Shopping: independent Preparing meals: independent Housework: independent Taking medicine: independent Managing money: independent PHQ-9 Over the last 2 weeks, how often have you been bothered by any of the following problems? 1. Little interest or pleasure in doing things: not at all 2. Feeling down, depressed, or hopeless: not at all 3. Trouble falling or staying asleep, or sleeping too much: several days 4. Feeling tired or having little energy: several days 5. Poor appetite or overeating: not at all 6. Feeling bad about yourself - or that you are a failure or have let yourself or your family down: not at all 7. Trouble concentrating on things, such as reading the newspaper or watching television: not at all 8. Moving or speaking so slowly that other people could have noticed. Or the opposite - being so fidgety or restless that you have been moving around a lot more than usual: not at all 9. Thoughts that you would be better off or of hurting yourself in some way: not at all Total score: 2 Depression Screening Interpretation: Negative Depression Screening Done: Yes 93482 - PHQ-9 Billing: Yes Source: Developed by Drs. Judah Isabel, Willa Geiger, Farhad Malcolm and colleagues, with an educational maritza from [employer]. Review of Systems Const Denies chills and Denies fever(s) ENT Denies epistaxis and Denies nasal discharge Card Denies chest pain Resp Denies chest congestion, Denies cough and Denies hemoptysis GI Denies diarrhea and Denies nausea Skin/Breast Denies rash Neuro Reports no additional complaints Psych Reports no additional complaints Endo Reports no additional complaints Physical Exam Vital Signs: Last Vital Signs Pulse 59 01/10/23 08:53 BP 138/80 01/10/23 08:53 Pulse Ox 95 01/10/23 08:53 Oxygen Delivery Method Room Air 01/10/23 08:53 BMI result Body Mass Index 29.9 Const General: cooperative, comfortable and no acute distress Orientation/consciousness: patient oriented x3 HEENT Head: Yes normocephalic Eyes General: appearance normal, both eyes and all related structures Neck Other: Supple Neck: Yes supple Resp Effort & Inspection: normal respiratory effort, no cough and no stridor Cardio Rhythm: regular rhythm Heart sounds: S1 normal heart sound present and S2 normal heart sound present Skin General skin exam: turgor normal Neuro Other: Motor sensory intact General: patient oriented x3, tone normal and moves all extremities Extrem Other: No lower extremity swelling. 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 Kelly for AAA size of 4.6 cm and left bundle branch block For the testing was ordered in the form of echocardiogram and [facility] imaging His lipid medication was changed to Crestor 20 mg He had lipid profile through Cardiology however other labs were missing so I have ordered those for the patient Hypertension:? Patient is on metoprolol to 50 mg daily he is to continue losartan 100 BPH stable with Flomax , seeing urologist Hypothyroidism: Continue levothyroxine 100 mcg daily . He is also taking bromocriptine 2.5 mg 2 tablets at night?for prolactinoma Follow-up 3 months Orders: Orders Complete Blood Count Auto Diff Today D35.2 - Benign neoplasm of pituitary gland, E03.8 - Other specified hypothyroidism, E66.09 - Other obesity due to excess calories, E78.9 - Disorder of lipoprotein metabolism, unspecified, I10 - Essential (primary) hypertension Vitamin D 25-OH (D2 and D3) Today E53.8 - Deficiency of other specified B group vitamins, E55.9 - Vitamin D deficiency, unspecified Comprehensive Met. Panel Today D35.2 - Benign neoplasm of pituitary gland, E03.8 - Other specified hypothyroidism, E66.09 - Other obesity due to excess calories, E78.9 - Disorder of lipoprotein metabolism, unspecified, I10 - Essential (primary) hypertension TSH reflex Free T4 Today D35.2 - Benign neoplasm of pituitary gland, E03.8 - Other specified hypothyroidism, E66.09 - Other obesity due to excess calories, E78.9 - Disorder of lipoprotein metabolism, unspecified, I10 - Essential (primary) hypertension Transglutaminase Ab IgG Today E53.8 - Deficiency of other specified B group vitamins, E55.9 - Vitamin D deficiency, unspecified, K90.41 - Non-celiac gluten sensitivity Vitamin B12 Today E53.8 - Deficiency of other specified B group vitamins, E55.9 - Vitamin D deficiency, unspecified Quality Reporting (2019) Depression/Bipolar (159/160/161/177) PHQ-9: Total score: 2 Coding Level of Care Code Medicare First (G0438) Est Pt Level 4 (81369) Diagnoses Hypertension, essential I10 Prolactinoma D35.2 Other specified hypothyroidism E03.8 Lipid disorder E78.9 B12 deficiency E53.8 Vitamin D deficiency E55.9 CPT Codes Advance Care Planning - Time spent: 1-15 minutes, not on file ([id number]) Advance Care Planning Forms completed: Health Care Proxy and MOLST Time spent: 1-15 minutes, not on file
== END 2023-01-10 10:56 | disposition home or self-care (01) ==
PROVIDERS: Visit Provider Internal Medicine
DX: Z00.00 Encounter for general adult medical examination without abnormal findings (principal); I10 Essential (primary) hypertension; D35.2 Benign neoplasm of pituitary gland; E03.8 Other specified hypothyroidism; E78.9 Disorder of lipoprotein metabolism, unspecified; E53.8 Deficiency of other specified B group vitamins; E55.9 Vitamin D deficiency, unspecified
CPT/HCPCS: 1124F; G0439

== ENCOUNTER 2023-01-10 09:15 | Outpatient (REF) | payer MEDICARE, OTHER, SELFPAY ==
[2023-01-10 11:09] LABS: MANUAL DIFF FLAG NO
[2023-01-10 11:29] LABS: Basophils Absolute Auto 0.1 X10*3/uL (0.0-0.2); Basophils Percent Auto 0.9 % (0-2); Eosinophils Absolute Auto 0.3 X10*3/uL (0.0-0.4); Eosinophils Percent Auto 4.8 % (0-4); Hemoglobin 15.2 g/dl (14.0-18.0); Imm Gran Abs Auto 0.02 X10*3/uL (0.00-0.03); Imm Gran Pct Auto 0.3 % (0.0-0.4); Lymphocytes Percent Auto 30.4 % (20-40); Mean Corpuscular HGB Conc 32.3 g/dl (31.0-36.0); Mean Corpuscular Hemoglobin 30.8 pg (27.0-33.0); Mean Corpuscular Volume 95.1 fL (80.0-98.0); Mean Platelet Volume 9.6 fL (9.4-12.4); Monocytes Absolute Auto 0.5 X10*3/uL (0.1-1.2); Monocytes Percent Auto 7.2 % (2-11); Neutrophils Absolute Auto 3.8 x10*3/uL (2.0-8.3); Neutrophils Percent Auto 56.4 % (45-73); Platelet Count 199 X10*3/uL (160-400); Red Blood Count 4.94 X10*6/uL (4.60-5.80); Red Cell Distribution Width 13.2 % (11.0-16.0); White Blood Count 6.7 X10*3/uL (4.8-10.8)
[2023-01-10 11:44] LABS: Alanine Aminotransferase 23 U/L (0-40); Alkaline Phosphatase 69 U/L (39-117); Anion Gap 12 (12-20); Aspartate Amino Transferase 27 U/L (5-37); Bilirubin Total 0.9 mg/dL (0.0-1.0); Blood Urea Nitrogen 13 mg/dL (9-16); Calcium 10.3 mg/dL (8.4-10.2); Carbon Dioxide 28 mmol/L (22-29); Chloride 106 mmol/L (96-108); Estimated Glomerular Filt Rate > 60; Glucose Random 90 mg/dL (60-115); Potassium 4.2 mmol/L (3.3-5.1); Sodium 142 mmol/L (135-145); Total Protein 7.2 g/dL (6.5-8.0)
[2023-01-10 11:57] LABS: Vitamin B12 303 pg/mL (200-900)
[2023-01-11 17:59] LABS: Transglutaminase Ab IgG <1.0 U/mL
[2023-01-14 14:24] LABS: Vitamin D 25-OH, D2 <4 ng/mL; Vitamin D 25-OH, D3 34 ng/mL; Vitamin D 25-OH, Total 34 ng/mL (30-100)
== END 2023-01-10 09:16 | disposition home or self-care (01) ==
LOC: HO.HMGCLDS 09:15
PROVIDERS: PCP Internal Medicine; Visit Provider Internal Medicine
DX: I10 Essential (primary) hypertension (principal); D35.2 Benign neoplasm of pituitary gland; E03.8 Other specified hypothyroidism; E78.9 Disorder of lipoprotein metabolism, unspecified; E66.09 Other obesity due to excess calories; K90.41 Non-celiac gluten sensitivity; E53.8 Deficiency of other specified B group vitamins; E55.9 Vitamin D deficiency, unspecified
CPT/HCPCS: 36415; 80053; 82306; 82607; 84443; 85025; 86364

== ENCOUNTER 2023-01-25 08:37 | Outpatient (REF) | payer MEDICARE, OTHER, SELFPAY ==
--- NOTE | ~2023-01-25 | US_ITS ---
EXAMINATION: US RETROPERITONEAL LIMITED (AORTA) CLINICAL INFORMATION: Abdominal aortic aneurysm, without rupture, surveillance. COMPARISON: None available. TECHNIQUE: [place]-scale, color Doppler and spectral Doppler evaluation of the abdominal aorta. FINDINGS: The aorta is atherosclerotic. The measurements of the aorta in maximum AP and transverse dimensions respectively are as follows: Proximal: 3.1 x 2.9 cm. Mid: 2.1 x 1.8 cm. Distal: 4.7 x 4.4 cm. PSV: 117 cm/s. The measurements of the common iliac arteries in maximum AP and TRV dimensions are as follows: Right Common Iliac Artery: 1.5 x 0.8 cm. Left Common Iliac Artery: 1.2 x 1.1 cm. US/US abdominal aortic aneurysm IMPRESSION: 4.7 cm infrarenal abdominal aortic aneurysm. Best Practice Recommendation: Based on published guidelines in J Am Maxx Radiol 2013; 10(10):789-794 and J Vasc Surg. 2018; 67:2-77, the recommendation for an abdominal aortic aneurysm with diameter 4.5-5.4 cm is vascular consultation and subsequent follow-up every 6 months.
== END 2023-01-25 08:38 | disposition home or self-care (01) ==
LOC: HO.HMGCX 08:37
PROVIDERS: PCP Internal Medicine; Visit Provider Nurse Practitioner Family
DX: I71.40 Abdominal aortic aneurysm, without rupture, unspecified (principal)
CPT/HCPCS: 76706

== ENCOUNTER 2023-02-27 14:32 | Outpatient (AMB) | payer MEDICARE, OTHER, SELFPAY ==
--- NOTE | 2023-02-27 14:34 | MHC.OFFVIS ---
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 This was initially discovered as a screening ultrasound at the [facility] several years prior at 3 cm. It was lost to follow-up and again screened at the [facility] at 4.6 cm he presented to our cardiology team wound astutely ordered a repeat ultrasound noted to be at 4.7 cm. He is asymptomatic from this. He is being maintained on aspirin and statin. Now presents to us for vascular evaluation. [facility] Medical History Painful arc syndrome of right shoulder Nocturia Lipid disorder Other specified hypothyroidism Prolactinoma Hypertension, essential Surgical History History of biopsy History of surgery Family History Father No problems noted. Mother Colon cancer Brother No problems noted. Brother No problems noted. Sister No problems noted. Social History Housing: House Alcohol intake: never Patient Tobacco Use Status: Former Tobacco user Quit Date: 1984 e-Cigarette/Vaping Use: Never Used service: Yes Current occupational status: retired Cognitive needs: No Hearing needs: No Vision needs: No Review of Systems Const All systems reviewed & are unremarkable except as noted in HPI and below Reports no additional complaints ENT Reports Normal hearing present Card Denies chest pain, Denies chest pain at rest, Denies chest pain with activity and Denies pedal edema Resp Denies cough GI Denies abdominal pain Musc Denies abnormal gait, Denies muscle cramps and Denies radiating pain into limb Skin/Breast Denies skin ulcer and Denies wounds Neuro Reports Normal hearing present and Denies abnormal gait Psych Reports no additional complaints Physical Exam Vital Signs: BMI result Body Mass Index 30.0 Const General: cooperative, healthy appearing and comfortable Orientation/consciousness: oriented to person, oriented to place and oriented to time HEENT Head: Yes normal to inspection Neck Neck: Yes normal visual inspection Carotids: no bruits Chest Chest palpation & inspection: normal inspection of the chest Resp Effort & Inspection: normal respiratory effort and able to speak in complete sentences Auscultation: clear to auscultation bilaterally, no crackles, no rales, no rhonchi and no wheezes Cardio Rate: regular rate Rhythm: regular rhythm Heart sounds: S1 normal heart sound present and S2 normal heart sound present Bruits: no carotid bruits Peripheral pulses: Peripheral pulses 2+ throughout GI Inspection: Yes normal to inspection Skin Wounds: no wounds Hair: normal Neuro General: oriented to person, oriented to place and oriented to time Cranial nerves: Yes CN's II-XII intact bilaterally and Yes Normal hearing present Cognition (Neuro): normal cognition Motor exam (neuro): 5/5 motor strength present throughout Extrem Other: venous exam: No significant superficial varicosities or spider telangiectasias, minimal edema General: No clubbing, No cyanosis and No edema Psych Appearance: grossly normal Mental Status: mental status grossly normal Speech and movement: Normal speech and movement present Results Reviewed Results Reviewed: Ultrasound dated 01/25/2023 demonstrates a 4.7 cm infrarenal abdominal aortic aneurysm Assessment & Plan Assessment & Plan (1) AAA (abdominal aortic aneurysm): Code(s): I71.40 - Abdominal aortic aneurysm, without rupture, unspecified Qualifiers: Abdominal aorta location: infrarenal aorta Presence of rupture: without rupture Qualified Code(s): I71.43 - Infrarenal abdominal aortic aneurysm, without rupture Plan: In short patient has radiologic evidence of a AAA on 4.7 cm on ultrasound. We have discussed the pathophysiology of aortic aneurysms and the risk of ruptures. We have discussed rupture risk based on size. In addition we have discussed conservative measures and risk factor modification for prevention of increase in size of the aneurysm. In order to get a true estimate of this aneurysm I have taken the liberty of ordering a CT angiogram to better elucidate the true sac size and the morphology of this aneurysm. Thank you for allowing us to participate in the care of this patient Orders: Orders Blood Urea Nitrogen Today I71.43 - Infrarenal abdominal aortic aneurysm, without rupture Creatinine Today I71.43 - Infrarenal abdominal aortic aneurysm, without rupture CT angio abdomen pelvis 3 Days I71.43 - Infrarenal abdominal aortic aneurysm, without rupture Coding Level of Care Code New Pt Level 4 (88732) Diagnoses Infrarenal abdominal aortic aneurysm (AAA) without rupture I71.43 Abdominal aorta location: infrarenal aorta Presence of rupture: without rupture
== END 2023-02-27 14:56 | disposition home or self-care (01) ==
PROVIDERS: PCP Internal Medicine; Visit Provider Surgery Vascular Surgery
DX: I71.43 Infrarenal abdominal aortic aneurysm, without rupture (principal)
CPT/HCPCS: 99204

== ENCOUNTER → 2023-02-27 14:32 | Outpatient (BNVA) | payer MEDICARE, OTHER, SELFPAY | PROVIDERS: PCP Internal Medicine; Visit Provider Surgery Vascular Surgery | DX: I71.43 Infrarenal abdominal aortic aneurysm, without rupture (principal) | CPT/HCPCS: 99202 ==

== ENCOUNTER 2023-03-05 12:47 | Outpatient (REF) | payer MEDICARE, OTHER, SELFPAY ==
--- NOTE | ~2023-03-05 | CT_ITS ---
EXAMINATION: CTA ABDOMEN AND PELVIS CLINICAL INFORMATION: Infrarenal abdominal aortic aneurysm without rupture TECHNIQUE: Multiple axial images were obtained through the abdomen and pelvis before and after administration of 80 mL of Omnipaque intravenously. Images were evaluated on independent dedicated 3-D workstation and 3-D images were reconstructed with concurrent radiologist supervision and subsequently interpreted. Specific vascular measurements are placed directly on the 3-D rendered images and are documented and stored in PACS. This CT examination was performed using dose optimization techniques as appropriate, variously including the following: *Automated exposure control. *Adjustment of mA and/or kV according to patient size (this includes techniques or standardized protocols for targeted exams where dose is matched to indication/reason for exam, i.e., extremities or head). *Use of iterative reconstruction technique. COMPARISON: None DLP: 335 mGy-cm. FINDINGS: VASCULAR: Abdominal aorta: Infrarenal abdominal aortic aneurysm measuring 4.5 cm in diameter. Iliac arteries: Patent and normal in caliber. Coarse vascular calcifications Mesenteric arteries: The celiac artery is patent. The SMA is patent. The TRINA is patent. Renal arteries: Patent single bilateral renal arteries NONVASCULAR: Lung Bases: The lungs are clear with no evidence of inflammation or nodules. Liver, Gallbladder, Biliary Tree: The liver is normal in size, shape, and attenuation. Hyperenhancing lesion in the inferior right lobe with peripheral nodular enhancement suggestive of a hemangioma. The gallbladder is unremarkable with no evidence of radiopaque gallstones, gallbladder wall thickening, or pericholecystic inflammatory changes. Pancreas: Unremarkable. Spleen: Unremarkable. Adrenal Glands: Unremarkable. Kidneys and Ureters: The kidneys are normal in size, shape, and attenuation. No hydronephrosis or hydroureter or calculi seen. No perinephric stranding. Bladder: Multiple stones layering dependently within the gallbladder along the right posterior wall Gastrointestinal Tract: Moderate colonic diverticulosis. Large stool ball in the rectum. The large and small bowel are normal in caliber. Abdominal Wall: No hernia is demonstrated. Lymph Nodes: Normal. Pelvic Viscera: The prostate is enlarged. Osseous Structures: Multilevel degenerative changes throughout the thoracolumbar spine. Age indeterminate anterior height loss at L1 CT/CT angio abdomen pelvis IMPRESSION: Infrarenal abdominal aortic aneurysm measuring 4.5 cm in diameter. Recommend follow-up every 6 months and vascular specialist care. Reference: J Am Maxx Radiol 2013; 10 (10): 789-794.
[2023-03-05 14:31] LABS: Blood Urea Nitrogen 16 mg/dL (9-16); Estimated Glomerular Filt Rate > 60
[2023-03-05] MEDS: iohexoL 350 MG/ML 100 ML INFUS..BTL 85 ML IV (15:17)
== END 2023-03-05 12:48 | disposition home or self-care (01) ==
LOC: HO.CT 12:47
PROVIDERS: PCP Internal Medicine; Visit Provider Surgery Vascular Surgery
DX: I71.43 Infrarenal abdominal aortic aneurysm, without rupture (principal)
CPT/HCPCS: 36415; 74174; 82565; 84520; Q9967

== ENCOUNTER 2023-03-16 09:49 | Outpatient (AMB) | payer MEDICARE, OTHER, SELFPAY ==
--- NOTE | 2023-03-16 09:57 | A.OFFVIS_ITS ---
Intake Intake Visit Reasons: 1yr follow up/PSA Intake Note: Patient is present for BPH w urinary obs/LUTS/Nocturia Urology Medication: Tamsulosin Blood Thinner: Aspirin Post Void Residual: 39ml's J2Ee Android Developer Required: No Allergies morphine Allergy (Unknown, Verified 03/16/23 10:49) Unknown ENVIROMENTAL Allergy (Unknown, Uncoded 03/16/23 10:49) POST NASAL DRIP Medication List - Last Reconciled 03/16/23 by DEIDRE Deluna- aspirin (Adult Aspirin Regimen) 81 mg PO DAILY bromocriptine 5 mg (2 x 2.5 mg) PO BEDTIME calcium carbonate-vitamin D3 600 mg-5 mcg (200 unit) 1 tab PO BID cetirizine (Allergy Relief (cetirizine)) 10 mg PO DAILY cholecalciferol (vitamin D3) 25 mcg PO DAILY levothyroxine 100 mcg PO QAM lisinopril 5 mg PO DAILY losartan 100 mg PO DAILY metoprolol succinate ER 50 mg PO DAILY 90 days rosuvastatin (Crestor) 20 mg PO DAILY tamsulosin 0.4 mg PO BEDTIME HPI HPI Comments History of Present Illness Details Bandar is a pleasant 82 year old male patient who is a patient of Dr. Bernard. He has a past medical history of hypertension, prolactinoma, hyperlipidemia, and BPH. He presents to the office today for follow-up of his BPH and nocturia. When asked patient reports to be doing and feeling well. He reports compliance with Flomax 0.4 mg daily. He does report intermittent episodes of urinary urgency and frequency however does not find this bothersome as it is not consistent. He denies hematuria, dysuria, foul smelling urine, flank pain, fever, and or chills. He is happy with her current voiding parameters on 0.4mg of FLomax daily. He does report urinary dribbling. In office urinalysis results reviewed with the patient today. PVR--39ml's. He does discuss his ED however does not find this bothersome as he discusses his and him do not find this to be an issue. Patient offers no urological issues at this time. PSAs are as follows: 03/15--1.4 03/16--1.6 03/17--1.6 [facility] Medical History Painful arc syndrome of right shoulder Nocturia Lipid disorder Other specified hypothyroidism Prolactinoma Hypertension, essential Surgical History History of biopsy History of surgery Family History Father No problems noted. Mother Colon cancer Brother No problems noted. Brother No problems noted. Sister No problems noted. Social History Housing: House Alcohol intake: never Patient Tobacco Use Status: Former Tobacco user Quit Date: 1984 e-Cigarette/Vaping Use: Never Used service: Yes Current occupational status: retired Cognitive needs: No Hearing needs: No Vision needs: No Review of Systems Const Reports no additional complaints Eyes Reports no additional complaints ENT Reports no additional complaints Card Reports as per HPI Resp Reports no additional complaints GI Reports no additional complaints Reports as per HPI Musc Details: Reports no additional complaints Neuro Reports no additional complaints Physical Exam Const General: cooperative, comfortable, no acute distress, well developed, alert and awake Orientation/consciousness: patient oriented x3 HEENT Head: Yes normal to inspection, Yes normocephalic and Yes atraumatic Eyes General: appearance normal, both eyes and all related structures Neck Neck: Yes normal visual inspection and Yes trachea midline Chest Chest palpation & inspection: normal inspection of the chest Resp Effort & Inspection: normal respiratory effort and able to speak in complete sentences Cardio Rhythm: regular rhythm GI Inspection: Yes normal to inspection General: Yes no CVA tenderness Back/Spine/Pelvis Back: no CVA tenderness Neuro General: patient oriented x3 Psych Appearance: grossly normal and well kempt Mental Status: mental status grossly normal Speech and movement: Normal speech and movement present and Clear speech present Affect: normal affect Attitude: cooperative Thought process: Normal thought process present Thought content: Normal thought content present Insight: Fair insight present (Psych) Judgement: Fair judgement present (Psych) Office Procedures Post Void Residual Post Residual Void Post Void Residual (PVR): 39 [id number] Void Residual by ultrasound Results AMB Urinalysis, Automated UA Leukoctes 0 Foster/uL Last Edit by Kristel Marcelino on 03/16/23 10:37 UA Nitrite Negative Last Edit by Kristel Marcelino on 03/16/23 10:37 UA Urobilinogen 0.2 mg/dL Last Edit by Kristel Marcelino on 03/16/23 10:37 UA Protein 0 mg/dL Last Edit by Kristel Marcelino on 03/16/23 10:37 UA pH 7.0 Last Edit by Kristel Marcelino on 03/16/23 10:37 UA Blood 0 Tony/uL Last Edit by Kristel Marcelino on 03/16/23 10:37 UA Specific [place] 1.015 Last Edit by Kristel Marcelino on 03/16/23 10:37 UA Ketone Negative Last Edit by Kristel Marcelino on 03/16/23 10:37 UA Bilirubin 0 mg/dL Last Edit by Kristel Marcelino on 03/16/23 10:37 UA Glucose 0 mg/dL Last Edit by Kristel Marcelino on 03/16/23 10:37 Results Reviewed Results Reviewed: Laboratory Last Values Urine pH (Auto) 7.0 03/16/23 09:59 Specific [place] (Auto) 1.015 03/16/23 09:59 Urine Protein (Auto) 0 mg/dL 03/16/23 09:59 Glucose (UA)(Auto) 0 mg/dL 03/16/23 09:59 Urine Ketones (Auto) Negative 03/16/23 09:59 Urine Blood (Auto) 0 Tony/uL 03/16/23 09:59 Urine Nitrite (Auto) Negative 03/16/23 09:59 Urine Bilirubin (Auto) 0 mg/dL 03/16/23 09:59 Urine Urobilinogen (Auto) 0.2 mg/dL 03/16/23 09:59 Leukocyte Esterase (Auto) 0 Foster/uL 03/16/23 09:59 Assessment & Plan Assessment & Plan (1) BPH w urinary obs/LUTS: Code(s): N40.1 - Benign prostatic hyperplasia with lower urinary tract symptoms; N13.8 - Other obstructive and reflux uropathy (2) Nocturia: Code(s): R35.1 - Nocturia Plan In office urinalysis results reviewed with the patient today; as noted above. Cold PVR 39 mL. Continue Flomax 0.4 mg daily as discussed and prescribed. Patient reports be happy with current voiding parameters on 0.4 mg of Flomax daily. Discussed at length bladder triggers/irritants. Discussed limiting fluids 2-3 hours prior to bed to assist with decreasing episodes of nocturia. Information provided regarding pelvic floor exercises for men to assist with urinary dribbling Patient does report ED however is not interested in therapy at this time or further workup PSA results reviewed with the patient today; as noted above. Patient denies any bothersome urinary issues or concerns. Will obtain PSA in 1 year Follow-up in 1 year with PVR and lab or sooner with any issues, concerns, and or questions. Orders: Orders Prostate Specific Antigen 364 Days N13.8 - Other obstructive and reflux uropathy, N40.1 - Benign prostatic hyperplasia with lower urinary tract symptoms AMB Urinalysis Automated 03/16/23 Z13.9 - Encounter for screening, unspecified AMB Post Void Residual by ultrasound 03/16/23 N13.8 - Other obstructive and reflux uropathy, N40.1 - Benign prostatic hyperplasia with lower urinary tract symptoms Patient Instructions: The patient had an opportunity to ask questions regarding the treatment plan. All questions were answered. Physical exam, labs, and imaging were discussed and reviewed in detail. As well as risks, benefits, and discussion of treatment choices. No major barriers to understanding were identified. The patient expressed understanding and agreement with the above treatment plan. The patient was made aware they should contact our office by phone for worsening of their current condition, the appearance of new symptoms, or with any questions or concerns. Compliance is encouraged with any medications and follow up testing that is ordered. It is a privilege to be allowed the opportunity to participate in? your urological care.? Again, if you have any questions or concerns If you have any questions or concerns please do not hesitate to contact me. The office is [phone]. This note is constructed using voice recognition software. While every effort has been made to ensure accuracy triage nurse errors may have been included. Yours sincerely, GALINDO Deluna Coding Level of Care Code Est Pt Level 3 (84472) Diagnoses BPH w urinary obs/LUTS N40.1; N13.8 Nocturia R35.1 CPT Codes Post Residual Void - PVR CPT Code: 61388-Rtfg Void Residual by ultrasound ([id number])
== END 2023-03-16 10:49 | disposition home or self-care (01) ==
PROVIDERS: Visit Provider Nurse Practitioner Family
DX: N40.1 Benign prostatic hyperplasia with lower urinary tract symptoms (principal); N13.8 Other obstructive and reflux uropathy; R35.1 Nocturia
CPT/HCPCS: 99213

== ENCOUNTER → 2023-03-16 09:49 | Outpatient (BNVA) | payer MEDICARE, OTHER, SELFPAY | PROVIDERS: Visit Provider Nurse Practitioner Family | DX: N40.1 Benign prostatic hyperplasia with lower urinary tract symptoms (principal); N13.8 Other obstructive and reflux uropathy; R35.1 Nocturia | CPT/HCPCS: 51798; 81003; 99212 ==

== ENCOUNTER 2023-03-27 14:46 | Outpatient (AMB) | payer MEDICARE, OTHER, SELFPAY ==
[2023-03-27 14:55] VITALS: BP 148/80; PULSE 73; O2SAT 96; BMI 29.3
--- NOTE | 2023-03-27 14:55 | MHC.OFFVIS ---
Intake Vital Signs 03/27/23 14:55 Height 5 ft 11 in Weight 210 lb BMI 29.3 BP 148/80 H Blood Pressure Location Rt brachial Position Sitting Pulse 73 Pulse Source Pulse Oximeter Pulse Oximetry (%) 96 Oxygen Delivery Method Room Air Intake Visit Reasons: FU CTA ABD and Pelvis Intake Note: Pt presents to the office today for a follow up CTA ABD and pelvis. Pt states he is feeling well but states he tends to be tired more often. Allergies morphine Allergy (Unknown, Verified 03/27/23 14:55) Unknown ENVIROMENTAL Allergy (Unknown, Uncoded 03/27/23 14:55) POST NASAL DRIP HPI FU CTA ABD and Pelvis HPI Details Very pleasant 82-year-old gentleman presents for follow-up evaluation regarding abdominal aortic aneurysm. He had originally been [facility] to have [facility]. He had a repeat test by Cardiology team which noted that it was nearly 4.7 cm. In order to get a more accurate sizing and morphology of this aneurysm he has undergone CT angiogram. Now presents for follow-up. He has had no interval issues clinically. [facility] Medical History Painful arc syndrome of right shoulder Nocturia Lipid disorder Other specified hypothyroidism Prolactinoma Hypertension, essential Surgical History History of biopsy History of surgery Family History Father No problems noted. Mother Colon cancer Brother No problems noted. Brother No problems noted. Sister No problems noted. Social History Housing: House Alcohol intake: never Patient Tobacco Use Status: Former Tobacco user Quit Date: 1984 e-Cigarette/Vaping Use: Never Used service: Yes Current occupational status: retired Cognitive needs: No Hearing needs: No Vision needs: No Review of Systems Const All systems reviewed & are unremarkable except as noted in HPI and below Reports no additional complaints ENT Reports Normal hearing present Card Denies chest pain, Denies chest pain at rest, Denies chest pain with activity and Denies pedal edema Resp Denies cough GI Denies abdominal pain Musc Denies abnormal gait, Denies muscle cramps and Denies radiating pain into limb Skin/Breast Denies skin ulcer and Denies wounds Neuro Reports Normal hearing present and Denies abnormal gait Psych Reports no additional complaints Physical Exam Vital Signs: Last Vital Signs Pulse 73 03/27/23 14:55 BP 148/80 H 03/27/23 14:55 Pulse Ox 96 03/27/23 14:55 Oxygen Delivery Method Room Air 03/27/23 14:55 BMI result Body Mass Index 29.3 Const General: cooperative, healthy appearing and comfortable Orientation/consciousness: oriented to person, oriented to place and oriented to time HEENT Head: Yes normal to inspection Neck Neck: Yes normal visual inspection Carotids: no bruits Chest Chest palpation & inspection: normal inspection of the chest Resp Effort & Inspection: normal respiratory effort and able to speak in complete sentences Auscultation: clear to auscultation bilaterally, no crackles, no rales, no rhonchi and no wheezes Cardio Rate: regular rate Rhythm: regular rhythm Heart sounds: S1 normal heart sound present and S2 normal heart sound present Bruits: no carotid bruits Peripheral pulses: Peripheral pulses 2+ throughout GI Inspection: Yes normal to inspection Skin Wounds: no wounds Hair: normal Neuro General: oriented to person, oriented to place and oriented to time Cranial nerves: Yes CN's II-XII intact bilaterally and Yes Normal hearing present Cognition (Neuro): normal cognition Motor exam (neuro): 5/5 motor strength present throughout Extrem Other: venous exam: No significant superficial varicosities or spider telangiectasias, minimal edema General: No clubbing, No cyanosis and No edema Psych Appearance: grossly normal Mental Status: mental status grossly normal Speech and movement: Normal speech and movement present Results Reviewed Results Reviewed: CT angiogram dated 03/05/2023 demonstrates infrarenal abdominal aortic aneurysm measuring 4.5 cm. Assessment & Plan Assessment & Plan (1) AAA (abdominal aortic aneurysm): Code(s): I71.40 - Abdominal aortic aneurysm, without rupture, unspecified Qualifiers: Abdominal aorta location: infrarenal aorta Presence of rupture: without rupture Qualified Code(s): I71.43 - Infrarenal abdominal aortic aneurysm, without rupture Plan: In short patient has radiologic evidence of a AAA on CT scan of 4.5 cm. We have discussed the pathophysiology of aortic aneurysms and the risk of ruptures. We have discussed rupture risk based on size. In addition we have discussed conservative measures and risk factor modification for prevention of increase in size of the aneurysm. the patient is scheduled for surveillance follow-up in approximately 6 months with surveillance ultrasound. Thank you for allowing us to participate in the care of this patient Orders: Orders US abdominal aortic aneurysm 6 Months I71.43 - Infrarenal abdominal aortic aneurysm, without rupture Coding Level of Care Code Est Pt Level 4 (60897) Diagnoses Infrarenal abdominal aortic aneurysm (AAA) without rupture I71.43 Abdominal aorta location: infrarenal aorta Presence of rupture: without rupture
== END 2023-03-27 15:23 | disposition home or self-care (01) ==
PROVIDERS: PCP Internal Medicine; Visit Provider Surgery Vascular Surgery
DX: I71.43 Infrarenal abdominal aortic aneurysm, without rupture (principal)
CPT/HCPCS: 99213

== ENCOUNTER → 2023-03-27 14:46 | Outpatient (BNVA) | payer MEDICARE, OTHER, SELFPAY | PROVIDERS: PCP Internal Medicine; Visit Provider Surgery Vascular Surgery | DX: I71.43 Infrarenal abdominal aortic aneurysm, without rupture (principal) | CPT/HCPCS: 99212 ==

== ENCOUNTER 2023-04-24 09:48 | Outpatient (AMB) | payer MEDICARE, OTHER, SELFPAY ==
--- NOTE | 2023-04-24 09:52 | MHC.PC.OV ---
Vital Signs 04/24/23 09:53 Height 5 ft 11 in Weight 214 lb 4 oz BMI 29.9 BP 132/76 Blood Pressure Location Rt brachial Position Sitting Pulse 67 Pulse Source Pulse Oximeter Pulse Oximetry (%) 97 Oxygen Delivery Method Room Air Intake Visit Reasons: 6m Allergies morphine Allergy (Unknown, Verified 04/24/23 09:54) Unknown ENVIROMENTAL Allergy (Unknown, Uncoded 03/27/23 14:55) POST NASAL DRIP Medication List - Last Reconciled 04/24/23 by Wilfredo Bernard MD aspirin (Adult Aspirin Regimen) 81 mg PO DAILY bromocriptine 5 mg (2 x 2.5 mg) PO BEDTIME calcium carbonate-vitamin D3 600 mg-5 mcg (200 unit) 1 tab PO BID cetirizine (Allergy Relief (cetirizine)) 10 mg PO DAILY cholecalciferol (vitamin D3) 25 mcg PO DAILY levothyroxine 100 mcg PO QAM lisinopril 5 mg PO DAILY losartan 100 mg PO DAILY metoprolol succinate ER 50 mg PO DAILY 90 days rosuvastatin (Crestor) 20 mg PO DAILY tamsulosin 0.4 mg PO BEDTIME Tobacco use date assessed: 04/24/23 Fall risk assessment: No Falls in past year Last assessed Fall Risk: 04/24/23 Dental Screening Dental Screen Date: 04/24/23 Did you have a dental visit in the last 12 months?: Yes Did you have a dental problem in the last 6 months where you did not have access to dental care?: No Was dental information given to patient?: Patient has dentist HPI 6m HPI Details Patient is 82-year-old gentleman with a history of AAA, left bundle branch block, BPH, ED, lumbar radiculopathy, vitamin-D deficiency, vitamin-B deficiency and slightly low hemoglobin, Lipid disorder, hypothyroidism, prolactinoma, hypertension Came in today for his regular follow-up appointment Labs were done December of last year new set of lab order placed to be done before next visit in June Patient is in his usual state of health and offer no new complaint Taking all medications, medication list reviewed, no side effects BMI is elevated patient is having difficulty losing weight Providers patient seeing our Urology [facility] Cardiology [facility] Follow-up in June [facility] Medical History Painful arc syndrome of right shoulder Nocturia Lipid disorder Other specified hypothyroidism Prolactinoma Hypertension, essential Surgical History History of biopsy History of surgery Family History Father No problems noted. Mother Colon cancer Brother No problems noted. Brother No problems noted. Sister No problems noted. Social History Housing: House Alcohol intake: never Patient Tobacco Use Status: Former Tobacco user Quit Date: 1984 e-Cigarette/Vaping Use: Never Used service: Yes Current occupational status: retired Cognitive needs: No Hearing needs: No Vision needs: No Questionnaire PHQ-9 Over the last 2 weeks, how often have you been bothered by any of the following problems? 1. Little interest or pleasure in doing things: not at all 2. Feeling down, depressed, or hopeless: not at all 3. Trouble falling or staying asleep, or sleeping too much: several days 4. Feeling tired or having little energy: several days 5. Poor appetite or overeating: not at all 6. Feeling bad about yourself - or that you are a failure or have let yourself or your family down: not at all 7. Trouble concentrating on things, such as reading the newspaper or watching television: not at all 8. Moving or speaking so slowly that other people could have noticed. Or the opposite - being so fidgety or restless that you have been moving around a lot more than usual: not at all 9. Thoughts that you would be better off or of hurting yourself in some way: not at all Total score: 2 Depression Screening Interpretation: Negative Depression Screening Done: Yes 66610 - PHQ-9 Billing: Yes Source: Developed by Drs. Judah Isabel, Willa Geiger, Farhad Malcolm and colleagues, with an educational maritza from [employer]. Thrive Questionnaire Date Thrive assessed: 04/24/23 I am a: Patient What is your living situation today?: I have a steady place to live Within the past 12 months, did the food you bought not last and you didn't have the money to get more?: Never true Within the past 12 months, did you worry whether your food would run out before you got money to buy more?: Never true Do you have trouble paying for medicines?: No Do you have trouble getting transportation to medical appointments?: No Do you have trouble paying your heating and electricity bill?: No Do you have trouble taking care of your child, family member or friend?: No Do you have trouble with day-to-day activities such as bathing, preparing meals, shopping, managing finances, etc.?: No Are you currently unemployed and looking for a job?: No Are you interested in more education?: No Please select the resources that you would like help with: None Currently or been in a relationship where the following occur: no concerns reported THRIVE Score: 0 AUDIT C Alcohol Use Questionnaire (AUDIT-C) 1. How often do you have a drink containing alcohol?: Never 3. How often do you have six or more drinks on one occasion?: Never Total Score: 0 Score Reviewed/Action Taken: Yes DIPAK-7 AMB Questionnaire DIPAK-7 Date DIPAK - 7 assessed: 04/24/23 Feeling nervous, anxious, or on edge: 0 = Not at all Not being able to stop or control worryin = Not at all Worrying too much about different things: 0 = Not at all Trouble relaxin = Several days Being so restless that it is hard to sit still: 0 = Not at all Becoming easily annoyed or irritable: 0 = Not at all Feeling afraid as if something awful might happen: 0 = Not at all Total DIPAK-7 score (0-4 normal; 5-9 mild; 10-14 moderate; 15-21 severe): 1 Source: Developed by Drs. Judah Isabel, Willa Geiger, Farhad Malcolm and colleagues, with an educational maritza from [employer]. DIPAK-7 Assessment Billing DIPAK-7 Assessment Tool: DIPAK-7 Assessment 37466 Review of Systems Const Denies chills and Denies fever(s) ENT Denies epistaxis and Denies nasal discharge Card Denies chest pain Resp Denies chest congestion, Denies cough and Denies hemoptysis GI Denies diarrhea and Denies nausea Skin/Breast Denies rash Neuro Reports no additional complaints Psych Reports no additional complaints Endo Reports no additional complaints Physical exam (Primary Care) Vital Signs: Last Vital Signs Pulse 67 04/24/23 09:53 BP 132/76 04/24/23 09:53 Pulse Ox 97 04/24/23 09:53 Oxygen Delivery Method Room Air 04/24/23 09:53 BMI result Body Mass Index 29.9 Tobacco/Smoking Status: Tobacco use Status Tobacco use date assessed 04/24/23 04/24/23 09:57 Patient Tobacco Use Status Former Tobacco user 04/24/23 09:53 e-Cigarette/Vaping Use Never Used 04/24/23 09:53 PHQ-9: PHQ-9 Score PHQ-9: Total score 2 04/24/23 10:00 Depression Screening Interpretation: Negative Thrive Assessment: Date of Thrive Assessment Date Thrive assessed 04/24/23 04/24/23 10:00 Currently or been in a relationship where the following occur: no concerns reported Const General: cooperative, comfortable and no acute distress Orientation/consciousness: patient oriented x3 HENMT Head: Yes normocephalic Eyes General: appearance normal, both eyes and all related structures Neck Neck: Yes supple Resp Effort & Inspection: normal respiratory effort, no cough and no stridor Cardio Rhythm: regular rhythm Heart sounds: S1 normal heart sound present and S2 normal heart sound present Skin General skin exam: turgor normal Neuro General: patient oriented x3, tone normal and moves all extremities Extrem Right lower extremity: no edema Left lower extremity: no edema Assessment and Plan Assessment & Plan (1) Hypertension, essential: Code(s): I10 - Essential (primary) hypertension (2) 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 (3) Other specified hypothyroidism: Code(s): E03.8 - Other specified hypothyroidism (4) Lipid disorder: Code(s): E78.9 - Disorder of lipoprotein metabolism, unspecified (5) BPH w urinary obs/LUTS: Code(s): N40.1 - Benign prostatic hyperplasia with lower urinary tract symptoms; N13.8 - Other obstructive and reflux uropathy (6) B12 deficiency: Code(s): E53.8 - Deficiency of other specified B group vitamins (7) Vitamin D deficiency: Code(s): E55.9 - Vitamin D deficiency, unspecified (8) Low hemoglobin: Code(s): D64.9 - Anemia, unspecified (9) AAA (abdominal aortic aneurysm): Code(s): I71.40 - Abdominal aortic aneurysm, without rupture, unspecified Qualifiers: Abdominal aorta location: infrarenal aorta Presence of rupture: without rupture Qualified Code(s): I71.43 - Infrarenal abdominal aortic aneurysm, without rupture (10) LBBB (left bundle branch block): Code(s): I44.7 - Left bundle-branch block, unspecified Plan Patient is 82-year-old gentleman with a history of AAA, left bundle branch block, BPH, ED, lumbar radiculopathy, vitamin-D deficiency, vitamin-B deficiency and slightly low hemoglobin, Lipid disorder, hypothyroidism, prolactinoma, hypertension Came in today for his regular follow-up appointment Labs were done December of last year new set of lab order placed to be done before next visit in June Patient is in his usual state of health and offer no new complaint Taking all medications, medication list reviewed, no side effects BMI is elevated patient is having difficulty losing weight Providers patient seeing our Urology [facility] Cardiology [facility] Follow-up in June Orders: Orders TSH reflex Free T4 2 Months D35.2 - Benign neoplasm of pituitary gland, D64.9 - Anemia, unspecified, E03.8 - Other specified hypothyroidism, E53.8 - Deficiency of other specified B group vitamins, E55.9 - Vitamin D deficiency, unspecified, E66.09 - Other obesity due to excess calories, E78.9 - Disorder of lipoprotein metabolism, unspecified, I10 - Essential (primary) hypertension, I44.7 - Left bundle-branch block, unspecified, I71.40 - Abdominal aortic aneurysm, without rupture, unspecified, N13.8 - Other obstructive and reflux uropathy, N40.1 - Benign prostatic hyperplasia with lower urinary tract symptoms, N52.9 - Male erectile dysfunction, unspecified Lipid Panel 2 Months D35.2 - Benign neoplasm of pituitary gland, D64.9 - Anemia, unspecified, E03.8 - Other specified hypothyroidism, E53.8 - Deficiency of other specified B group vitamins, E55.9 - Vitamin D deficiency, unspecified, E66.09 - Other obesity due to excess calories, E78.9 - Disorder of lipoprotein metabolism, unspecified, I10 - Essential (primary) hypertension, I44.7 - Left bundle-branch block, unspecified, I71.40 - Abdominal aortic aneurysm, without rupture, unspecified, N13.8 - Other obstructive and reflux uropathy, N40.1 - Benign prostatic hyperplasia with lower urinary tract symptoms, N52.9 - Male erectile dysfunction, unspecified Vitamin B12 Today E53.8 - Deficiency of other specified B group vitamins, E55.9 - Vitamin D deficiency, unspecified Vitamin D 25-OH (D2 and D3) Today E53.8 - Deficiency of other specified B group vitamins, E55.9 - Vitamin D deficiency, unspecified Complete Blood Count Auto Diff 2 Months D35.2 - Benign neoplasm of pituitary gland, D64.9 - Anemia, unspecified, E03.8 - Other specified hypothyroidism, E53.8 - Deficiency of other specified B group vitamins, E55.9 - Vitamin D deficiency, unspecified, E66.09 - Other obesity due to excess calories, E78.9 - Disorder of lipoprotein metabolism, unspecified, I10 - Essential (primary) hypertension, I44.7 - Left bundle-branch block, unspecified, I71.40 - Abdominal aortic aneurysm, without rupture, unspecified, N13.8 - Other obstructive and reflux uropathy, N40.1 - Benign prostatic hyperplasia with lower urinary tract symptoms, N52.9 - Male erectile dysfunction, unspecified Comprehensive [place]. Panel Fast 2 Months D35.2 - Benign neoplasm of pituitary gland, D64.9 - Anemia, unspecified, E03.8 - Other specified hypothyroidism, E53.8 - Deficiency of other specified B group vitamins, E55.9 - Vitamin D deficiency, unspecified, E66.09 - Other obesity due to excess calories, E78.9 - Disorder of lipoprotein metabolism, unspecified, I10 - Essential (primary) hypertension, I44.7 - Left bundle-branch block, unspecified, I71.40 - Abdominal aortic aneurysm, without rupture, unspecified, N13.8 - Other obstructive and reflux uropathy, N40.1 - Benign prostatic hyperplasia with lower urinary tract symptoms, N52.9 - Male erectile dysfunction, unspecified Prostate Specific Antigen Today N13.8 - Other obstructive and reflux uropathy, N40.1 - Benign prostatic hyperplasia with lower urinary tract symptoms Coding Level of Care Code Est Pt Level 4 (97532) Diagnoses Hypertension, essential I10 Prolactinoma D35.2 Other specified hypothyroidism E03.8 Lipid disorder E78.9 BPH w urinary obs/LUTS N40.1; N13.8 B12 deficiency E53.8 Vitamin D deficiency E55.9 Low hemoglobin D64.9 Infrarenal abdominal aortic aneurysm (AAA) without rupture I71.43 Abdominal aorta location: infrarenal aorta Presence of rupture: without rupture LBBB (left bundle branch block) I44.7 Additional Codes DIPAK-7 Assessment Billing - DIPAK-7 Assessment Tool: DIPAK-7 Assessment 41311 ([id number])
[2023-04-24 09:53] VITALS: BP 132/76; PULSE 67; O2SAT 97; BMI 29.9
== END 2023-04-24 16:20 | disposition home or self-care (01) ==
PROVIDERS: PCP Internal Medicine; Visit Provider Internal Medicine
DX: I10 Essential (primary) hypertension (principal); D35.2 Benign neoplasm of pituitary gland; I71.43 Infrarenal abdominal aortic aneurysm, without rupture; E03.8 Other specified hypothyroidism; E78.9 Disorder of lipoprotein metabolism, unspecified; N40.1 Benign prostatic hyperplasia with lower urinary tract symptoms; N13.8 Other obstructive and reflux uropathy; E53.8 Deficiency of other specified B group vitamins; E55.9 Vitamin D deficiency, unspecified; D64.9 Anemia, unspecified; I44.7 Left bundle-branch block, unspecified
CPT/HCPCS: 99214

== ENCOUNTER 2023-07-17 07:56 | Outpatient (AMB) | payer MEDICARE, OTHER, SELFPAY ==
[2023-07-17 08:11] VITALS: BP 136/62; PULSE 70; BMI 29.5
--- NOTE | 2023-07-17 08:11 | A.OFFVIS_ITS ---
Vital Signs 07/17/23 08:11 Height 5 ft 11 in Weight 211 lb 10.3 oz BMI 29.5 BP 136/62 Blood Pressure Location Lt brachial Position Sitting Pulse 70 Pulse Source Pulse Oximeter Intake Visit Reasons: 6 mth f/up [employer] Required: No Accompanied by: Spouse Allergies morphine Allergy (Unknown, Verified 04/24/23 09:54) Unknown ENVIROMENTAL Allergy (Unknown, Uncoded 03/27/23 14:55) POST NASAL DRIP Medication List - Last Reconciled 07/17/23 by FELI CamachoC aspirin (Adult Aspirin Regimen) 81 mg PO DAILY bromocriptine 5 mg (2 x 2.5 mg) PO BEDTIME calcium carbonate-vitamin D3 600 mg-5 mcg (200 unit) 1 tab PO BID cetirizine (Allergy Relief (cetirizine)) 10 mg PO DAILY cholecalciferol (vitamin D3) 25 mcg PO DAILY levothyroxine 100 mcg PO QAM lisinopril 5 mg PO DAILY losartan 100 mg PO DAILY metoprolol succinate ER 50 mg PO DAILY 90 days rosuvastatin 20 mg PO DAILY tamsulosin 0.4 mg PO BEDTIME HPI HPI 6 mth f/up: Details: Bandar is an 82-year-old male with past medical history of hypertension, hyperlipidemia, abdominal aortic aneurysm, left bundle branch block who presents for follow-up. Today he reports that he is noticing increasing activity intolerance. Used to be able to do walking for exercise and now states he has fatigue and inability to push himself. Expresses concern about his heart due to family history of CAD. He tells me his younger brother recently had three-vessel coronary artery bypass grafting. His other brother and his sister each have coronary stents. Has no chest discomfort at rest or with activity. No heart palpitations, lightheadedness, shortness of breath, PND, orthopnea or edema. Takes his meds as directed. is present. [facility]LY [facility] Medical History Painful arc syndrome of right shoulder Nocturia Lipid disorder Other specified hypothyroidism Prolactinoma Hypertension, essential Surgical History History of biopsy History of surgery Family History Father No problems noted. Mother Colon cancer Brother No problems noted. Brother No problems noted. Sister No problems noted. Social History Housing: House Alcohol intake: never Patient Tobacco Use Status: Former Tobacco user Quit Date: 1984 e-Cigarette/Vaping Use: Never Used service: Yes Current occupational status: retired Cognitive needs: No Hearing needs: No Vision needs: No Review of Systems Const Details: decreased activity tolerance All systems reviewed & are unremarkable except as noted in HPI and below Denies chills, Denies fatigue, Denies fever(s), Denies frequent falls, Reports lethargy, Denies weakness, Denies weight gain and Denies weight loss ENT Denies dizziness Card Denies chest pain, Denies leg edema, Denies lightheadedness, Denies palpitations, Denies dyspnea and Denies dyspnea on exertion Resp Denies cough, Denies dyspnea and Denies dyspnea on exertion GI Denies hematochezia Musc Denies abnormal gait, Denies muscle weakness, Denies numbness, Denies radiating pain into limb and Denies tingling Neuro Denies abnormal gait, Denies dizziness, Denies frequent falls, Denies numbness, Denies tingling and Denies weakness Endo Denies fatigue and Denies palpitations Physical Exam Vital Signs: Last Vital Signs Pulse 70 07/17/23 08:11 BP 136/62 07/17/23 08:11 BMI result Body Mass Index 29.5 Const General: cooperative, healthy appearing, comfortable and no acute distress Orientation/consciousness: patient oriented x3 Neck Neck: Yes normal visual inspection and Yes no JVD Resp Effort & Inspection: normal respiratory effort Auscultation: clear to auscultation bilaterally, no crackles, no rales, no rhonchi and no wheezes Cardio Jugular venous distension: no JVD Rate: regular rate Rhythm: regular rhythm Heart sounds: S1 normal heart sound present, S2 normal heart sound present, no murmurs and no rubs Neuro General: patient oriented x3 Extrem General: Yes normal to inspection and No no pedal edema Psych Appearance: grossly normal Mental Status: mental status grossly normal Speech and movement: Normal speech and movement present Assessment & Plan Assessment & Plan (1) Activity intolerance related to fatigue: Code(s): R53.83 - Other fatigue Category: Medical Plan: Patient reports decreasing activity tolerance over the last year. He used to be able to walk up to 10,000 steps daily. Now he is doing only about 3000. He states he is not able to condition himself to do more. He has no chest discomfort or concerning shortness of breath. His EKG shows left bundle branch block which is not new. Echocardiogram done 12/28/2022 shows EF 54%, no valve abnormalities, mild increase in the LV wall thickness. Nuclear stress test done 12/29/2022 shows no clear ischemia or infarct, perfusion defects in the septum and inferior wall probably related to known left bundle branch block, normal EF. He describes family history of CAD in each of his 3 siblings. Cardiac risk factors of family history, age, hypertension, hyperlipidemia. Will check a CTA of the coronary arteries to evaluate for obstructive coronary disease. Will check a BMP prior to this test. Rationale for testing reviewed with him in de tail. He is agreeable to proceed. Continue aspirin, rosuvastatin, metoprolol. Current med list includes lisinopril and losartan. Instructed him to stop the lisinopril and further discuss with PCP. If blood pressure becomes elevated then amlodipine can be added. Cardiology follow-up 3 months, sooner if needed. ED care if ever needed for concerning symptoms. (2) LBBB (left bundle branch block): Code(s): I44.7 - Left bundle-branch block, unspecified Category: Medical Plan: Present on EKG. EKG nondiagnostic for ischemia. (3) AAA (abdominal aortic aneurysm): Code(s): I71.40 - Abdominal aortic aneurysm, without rupture, unspecified Category: Medical Qualifiers: Abdominal aorta location: infrarenal aorta Presence of rupture: without rupture Qualified Code(s): I71.43 - Infrarenal abdominal aortic aneurysm, without rupture Plan: History of abdominal aortic aneurysm. Abdominal ultrasound done 01/25/2023 showed a 4.7 infrarenal abdominal aortic aneurysm. A CTA of the abdomen and pelvis was done on 03/05/2023 showing abdominal aortic aneurysm 4.5 cm. Was evaluated by Dr. Odonnell in March. He is on aspirin and statin. [place] LDL goal less than 70. Labs done 01/04/2023 showed LDL 58. He will continue follow with Dr. Odonnell. Reviewed light physical activity and no heavy lifting. Orders: Orders CT Cardiac Coronary Angio Today I44.7 - Left bundle-branch block, unspecified, R53.83 - Other fatigue, Z82.49 - Family history of ischemic heart disease and other diseases of the circulatory system Basic Metabolic Panel Today I44.7 - Left bundle-branch block, unspecified, R53.83 - Other fatigue
== END 2023-07-17 08:46 | disposition home or self-care (01) ==
PROVIDERS: PCP Internal Medicine; Visit Provider Nurse Practitioner Family
DX: R53.83 Other fatigue (principal); I44.7 Left bundle-branch block, unspecified; I71.43 Infrarenal abdominal aortic aneurysm, without rupture
CPT/HCPCS: 99214

== ENCOUNTER → 2023-07-17 07:56 | Outpatient (BNVA) | payer MEDICARE, OTHER, SELFPAY | PROVIDERS: PCP Internal Medicine; Visit Provider Nurse Practitioner Family | DX: R53.83 Other fatigue (principal); I44.7 Left bundle-branch block, unspecified; I71.43 Infrarenal abdominal aortic aneurysm, without rupture; Z82.49 Family history of ischemic heart disease and other diseases of the circulatory system | CPT/HCPCS: 99212 ==

== ENCOUNTER 2023-07-20 09:21 | Outpatient (REF) | payer MEDICARE, OTHER, SELFPAY ==
[2023-07-20 10:20] LABS: MANUAL DIFF FLAG NO
[2023-07-20 10:33] LABS: Basophils Absolute Auto 0.1 X10*3/uL (0.0-0.2); Basophils Percent Auto 0.7 % (0-2); Eosinophils Absolute Auto 0.6 X10*3/uL (0.0-0.4); Eosinophils Percent Auto 8.7 % (0-4); Hematocrit 45.9 % (42.0-52.0); Hemoglobin 14.9 g/dl (14.0-18.0); Imm Gran Abs Auto 0.02 X10*3/uL (0.00-0.03); Imm Gran Pct Auto 0.3 % (0.0-0.4); Lymphocytes Absolute Auto 2.3 X10*3/uL (1.2-4.9); Lymphocytes Percent Auto 33.8 % (20-40); Mean Corpuscular HGB Conc 32.5 g/dl (31.0-36.0); Mean Corpuscular Hemoglobin 30.8 pg (27.0-33.0); Mean Corpuscular Volume 94.8 fL (80.0-98.0); Mean Platelet Volume 9.3 fL (9.4-12.4); Monocytes Absolute Auto 0.5 X10*3/uL (0.1-1.2); Monocytes Percent Auto 7.4 % (2-11); Neutrophils Absolute Auto 3.4 x10*3/uL (2.0-8.3); Neutrophils Percent Auto 49.1 % (45-73); Platelet Count 172 X10*3/uL (160-400); Red Blood Count 4.84 X10*6/uL (4.60-5.80); Red Cell Distribution Width 13.6 % (11.0-16.0); White Blood Count 6.9 X10*3/uL (4.8-10.8)
[2023-07-20 11:07] LABS: Alanine Aminotransferase 29 U/L (0-40); Albumin Level 3.9 g/dL (3.5-5.0); Alkaline Phosphatase 59 U/L (39-117); Anion Gap 8 (12-20); Aspartate Amino Transferase 31 U/L (5-37); Bilirubin Total 0.6 mg/dL (0.0-1.0); Blood Urea Nitrogen 18 mg/dL (9-16); Calcium 9.5 mg/dL (8.4-10.2); Carbon Dioxide 33 mmol/L (22-29); Chloride 107 mmol/L (96-108); Cholesterol 112 mg/dL (<200); Estimated Glomerular Filt Rate > 60; Glucose Fasting 97 mg/dL (60-99); HDL Cholesterol 42 mg/dL (>40); LDL Cholesterol Calculated 61 mg/dL (<100); Potassium 4.5 mmol/L (3.3-5.1); Sodium 143 mmol/L (135-145); TSH reflex Free T4 0.57 uIU/mL (0.32-4.0); Total Protein 6.9 g/dL (6.5-8.0); Triglycerides 47 mg/dL (<150)
[2023-07-20 12:33] LABS: Prostate Specific Antigen 1.37 ng/mL (<0.05-4.0); Vitamin B12 269 pg/mL (200-900)
[2023-07-25 13:34] LABS: Vitamin D 25-OH, D2 <4 ng/mL; Vitamin D 25-OH, D3 34 ng/mL; Vitamin D 25-OH, Total 34 ng/mL (30-100)
== END 2023-07-20 09:22 | disposition home or self-care (01) ==
LOC: HO.HMGCLDS 09:21
PROVIDERS: PCP Internal Medicine; Visit Provider Internal Medicine
DX: I10 Essential (primary) hypertension (principal); D35.2 Benign neoplasm of pituitary gland; E03.8 Other specified hypothyroidism; E78.9 Disorder of lipoprotein metabolism, unspecified; N40.1 Benign prostatic hyperplasia with lower urinary tract symptoms; N13.8 Other obstructive and reflux uropathy; E66.09 Other obesity due to excess calories; E53.8 Deficiency of other specified B group vitamins; E55.9 Vitamin D deficiency, unspecified; D64.9 Anemia, unspecified; I71.40 Abdominal aortic aneurysm, without rupture, unspecified; I44.7 Left bundle-branch block, unspecified; N52.9 Male erectile dysfunction, unspecified; Z12.5 Encounter for screening for malignant neoplasm of prostate
CPT/HCPCS: 36415; 80053; 80061; 82306; 82607; 84153; 84443; 85025

== ENCOUNTER 2023-07-24 10:14 | Outpatient (AMB) | payer MEDICARE, OTHER, SELFPAY ==
[2023-07-24 10:17] VITALS: BP 136/64; PULSE 69; O2SAT 96; BMI 29.8
--- NOTE | 2023-07-24 10:17 | A.OFFPC_ITS ---
Vital Signs 07/24/23 10:17 Height 5 ft 11 in Weight 214 lb BMI 29.8 BP 136/64 Blood Pressure Location Rt brachial Position Sitting Pulse 69 Pulse Source Pulse Oximeter Pulse Oximetry (%) 96 Oxygen Delivery Method Room Air Intake Visit Reasons: 9m Allergies morphine Allergy (Unknown, Verified 07/24/23 10:17) Unknown ENVIROMENTAL Allergy (Unknown, Uncoded 03/27/23 14:55) POST NASAL DRIP Medication List - Last Reconciled 07/24/23 by Wilfredo Bernard MD aspirin (Adult Aspirin Regimen) 81 mg PO DAILY bromocriptine 5 mg (2 x 2.5 mg) PO BEDTIME calcium carbonate-vitamin D3 600 mg-5 mcg (200 unit) 1 tab PO BID cetirizine (Allergy Relief (cetirizine)) 10 mg PO DAILY cholecalciferol (vitamin D3) 25 mcg PO DAILY levothyroxine 100 mcg PO QAM losartan 100 mg PO DAILY metoprolol succinate ER 50 mg PO DAILY 90 days rosuvastatin 20 mg PO DAILY tamsulosin 0.4 mg PO BEDTIME Tobacco use date assessed: 07/24/23 Fall risk assessment: No Falls in past year Last assessed Fall Risk: 07/24/23 Dental Screening Dental Screen Date: 07/24/23 Did you have a dental visit in the last 12 months?: Yes Did you have a dental problem in the last 6 months where you did not have access to dental care?: No Was dental information given to patient?: Patient has dentist HPI 9m HPI Details Patient is 82-year-old gentleman with a history of AAA, left bundle branch block, BPH, ED, lumbar radiculopathy, vitamin-D deficiency, vitamin-B deficiency and slightly low hemoglobin, Lipid disorder, hypothyroidism, prolactinoma, hypertension Patient recently had sleep study done through [facility] found to have mild sleep apnea He has appointment with fire fighting equipment specialist to discuss that further. Cardiology visit was recent Note reviewed Patient have ejection fraction of 56%, his stress nuclear test was negative last year However he continued to feel tired, CTA has been ordered to further evaluate Labs done recently reviewed, some of them are still pending His B12 level is 269, patient will get that [id number] and start taking that BMI is elevated patient is having difficulty losing weight Providers patient seeing are Urology [facility] Cardiology [facility] BPH: Patient is on tamsulosin 0.4 mg continued to have dribbling Had recent visit with Urology and pelvic floor exercises were recommended which patient already has been doing I have had it finasteride 5 mg to give it a try, if patient benefitted he will reach out to Urology for refill Follow-up in 4 [facility] Medical History Painful arc syndrome of right shoulder Nocturia Lipid disorder Other specified hypothyroidism Prolactinoma Hypertension, essential Surgical History History of biopsy History of surgery Family History Father No problems noted. Mother Colon cancer Brother No problems noted. Brother No problems noted. Sister No problems noted. Social History Housing: House Alcohol intake: never Patient Tobacco Use Status: Former Tobacco user Quit Date: 1984 e-Cigarette/Vaping Use: Never Used service: Yes Current occupational status: retired Cognitive needs: No Hearing needs: No Vision needs: No Questionnaire Thrive Questionnaire Date Thrive assessed: 04/24/23 AUDIT C Alcohol Use Questionnaire (AUDIT-C) 1. How often do you have a drink containing alcohol?: Monthly or less 2. How many drinks containing alcohol do you have on a typical day when you are drinking?: 1 or 2 3. How often do you have six or more drinks on one occasion?: Never Total Score: 1 Score Reviewed/Action Taken: Yes DIPAK-7 AMB Questionnaire DIPAK-7 Date DIPAK - 7 assessed: 04/24/23 Source: Developed by Drs. Judah Isabel, Willa Geiger, Farhad Malcolm and colleagues, with an educational maritza from [employer]. Review of Systems Const Denies chills and Denies fever(s) ENT Denies epistaxis and Denies nasal discharge Card Denies chest pain Resp Denies chest congestion, Denies cough and Denies hemoptysis GI Denies diarrhea and Denies nausea Skin/Breast Denies rash Neuro Reports no additional complaints Psych Reports no additional complaints Endo Reports no additional complaints Physical exam (Primary Care) Vital Signs: Last Vital Signs Pulse 69 07/24/23 10:17 BP 136/64 07/24/23 10:17 Pulse Ox 96 07/24/23 10:17 Oxygen Delivery Method Room Air 07/24/23 10:17 BMI result Body Mass Index 29.8 Tobacco/Smoking Status: Tobacco use Status Tobacco use date assessed 07/24/23 07/24/23 10:20 Patient Tobacco Use Status Former Tobacco user 07/24/23 10:20 e-Cigarette/Vaping Use Never Used 07/24/23 10:20 Thrive Assessment: Date of Thrive Assessment Date Thrive assessed 04/24/23 07/24/23 10:20 Const General: cooperative, comfortable and no acute distress Orientation/consciousness: patient oriented x3 HENMT Head: Yes normocephalic Eyes General: appearance normal, both eyes and all related structures Neck Neck: Yes supple Resp Effort & Inspection: normal respiratory effort, no cough and no stridor Cardio Rhythm: regular rhythm Heart sounds: S1 normal heart sound present and S2 normal heart sound present Skin General skin exam: turgor normal Neuro General: patient oriented x3, tone normal and moves all extremities Extrem Right lower extremity: no edema Left lower extremity: no edema Assessment and Plan Assessment & Plan (1) Hypertension, essential: Code(s): I10 - Essential (primary) hypertension (2) 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 (3) Other specified hypothyroidism: Code(s): E03.8 - Other specified hypothyroidism (4) Lipid disorder: Code(s): E78.9 - Disorder of lipoprotein metabolism, unspecified (5) BPH w urinary obs/LUTS: Code(s): N40.1 - Benign prostatic hyperplasia with lower urinary tract symptoms; N13.8 - Other obstructive and reflux uropathy (6) B12 deficiency: Code(s): E53.8 - Deficiency of other specified B group vitamins (7) Vitamin D deficiency: Code(s): E55.9 - Vitamin D deficiency, unspecified (8) AAA (abdominal aortic aneurysm): Code(s): I71.40 - Abdominal aortic aneurysm, without rupture, unspecified Qualifiers: Abdominal aorta location: infrarenal aorta Presence of rupture: without rupture Qualified Code(s): I71.43 - Infrarenal abdominal aortic aneurysm, without rupture (9) LBBB (left bundle branch block): Code(s): I44.7 - Left bundle-branch block, unspecified Plan Patient is 82-year-old gentleman with a history of AAA, left bundle branch block, BPH, ED, lumbar radiculopathy, vitamin-D deficiency, vitamin-B deficiency and slightly low hemoglobin, Lipid disorder, hypothyroidism, prolactinoma, hypertension Patient recently had sleep study done through [facility] found to have mild sleep apnea He has appointment with fire fighting equipment specialist to discuss that further. Cardiology visit was recent Note reviewed Patient have ejection fraction of 56%, his stress nuclear test was negative last year However he continued to feel tired, CTA has been ordered to further evaluate Labs done recently reviewed, some of them are still pending His B12 level is 269, patient will get that [id number] and start taking that BMI is elevated patient is having difficulty losing weight Providers patient seeing are Urology [facility] Cardiology [facility] BPH: Patient is on tamsulosin 0.4 mg continued to have dribbling Had recent visit with Urology and pelvic floor exercises were recommended which patient already has been doing I have had it finasteride 5 mg to give it a try, if patient benefitted he will reach out to Urology for refill Follow-up in 4 M Medications: New finasteride 5 mg PO DAILY 30 tabs 0RF Coding Level of Care Code Est Pt Level 4 (17049) Diagnoses Hypertension, essential I10 Prolactinoma D35.2 Other specified hypothyroidism E03.8 Lipid disorder E78.9 BPH w urinary obs/LUTS N40.1; N13.8 B12 deficiency E53.8 Vitamin D deficiency E55.9 Infrarenal abdominal aortic aneurysm (AAA) without rupture I71.43 Abdominal aorta location: infrarenal aorta Presence of rupture: without rupture LBBB (left bundle branch block) I44.7
== END 2023-07-24 10:43 | disposition home or self-care (01) ==
PROVIDERS: PCP Internal Medicine; Visit Provider Internal Medicine
DX: I10 Essential (primary) hypertension (principal); D35.2 Benign neoplasm of pituitary gland; I71.43 Infrarenal abdominal aortic aneurysm, without rupture; E03.8 Other specified hypothyroidism; E78.9 Disorder of lipoprotein metabolism, unspecified; N40.1 Benign prostatic hyperplasia with lower urinary tract symptoms; N13.8 Other obstructive and reflux uropathy; E53.8 Deficiency of other specified B group vitamins; E55.9 Vitamin D deficiency, unspecified; I44.7 Left bundle-branch block, unspecified
CPT/HCPCS: 99214

== ENCOUNTER 2023-09-25 08:16 | Outpatient (REF) | payer MEDICARE, OTHER, SELFPAY ==
--- NOTE | ~2023-09-25 | US_ITS ---
EXAMINATION: US RETROPERITONEAL LIMITED (AORTA) CLINICAL INFORMATION: Infrarenal abdominal aortic aneurysm, without rupture. Previous CT scan measures 4.5 cm. COMPARISON: CTA abdomen and pelvis 03/05/2023. Ultrasound retroperitoneal limited (aorta) 01/25/2023. TECHNIQUE: [place]-scale, color Doppler and spectral Doppler evaluation of the abdominal aorta. FINDINGS: Atherosclerotic plaque in the abdominal aorta. The measurements of the aorta in maximum AP and transverse dimensions respectively are as follows: Proximal: 2.9 x 3.1 cm. Mid: 3.2 x 3.3 cm. Distal: 4.4 x 4.3 cm. PSV: 115 cm/s. The measurements of the common iliac arteries in maximum AP and TRV dimensions are as follows: Right Common Iliac Artery: 1.1 x 0.88 cm. Left Common Iliac Artery: 1.1 x 1.2 cm. US/US abdominal aortic aneurysm IMPRESSION: Infrarenal abdominal aortic aneurysm measuring 4.4 cm, similar to prior exam. Best Practice Recommendation: Based on published guidelines in J Am Maxx Radiol 2013; 10(10):789-794 and J Vasc Surg. 2018; 67:2-77, the recommendation for an abdominal aortic aneurysm with diameter 4.0-4.4 cm is vascular consultation and subsequent follow-up every 12 months.
== END 2023-09-25 08:17 | disposition home or self-care (01) ==
LOC: HO.HMGCX 08:16
PROVIDERS: PCP Internal Medicine; Visit Provider Surgery Vascular Surgery
DX: I71.43 Infrarenal abdominal aortic aneurysm, without rupture (principal)
CPT/HCPCS: 76706

== ENCOUNTER 2023-10-09 10:43 | Outpatient (REF) | payer MEDICARE, OTHER, SELFPAY ==
[2023-10-09 13:25] LABS: Anion Gap 11 (12-20); Blood Urea Nitrogen 16 mg/dL (9-16); Calcium 9.9 mg/dL (8.4-10.2); Carbon Dioxide 28 mmol/L (22-29); Chloride 107 mmol/L (96-108); Estimated Glomerular Filt Rate > 60; Glucose Random 95 mg/dL (60-115); Sodium 142 mmol/L (135-145)
== END 2023-10-09 10:44 | disposition home or self-care (01) ==
LOC: HO.HMGCLDS 10:43
PROVIDERS: PCP Internal Medicine; Visit Provider Nurse Practitioner Family
DX: I44.7 Left bundle-branch block, unspecified (principal); R53.83 Other fatigue
CPT/HCPCS: 36415; 80048

== ENCOUNTER 2023-10-26 13:04 | Outpatient (AMB) | payer MEDICARE, OTHER, SELFPAY ==
--- NOTE | 2023-10-26 13:06 | A.OFFVIS_ITS ---
Vital Signs 10/26/23 13:07 Height 5 ft 11 in Weight 216 lb BMI 30.1 BP 130/68 Blood Pressure Location Lt brachial Position Sitting Pulse 64 Pulse Source Pulse Oximeter Intake Visit Reasons: 3 mth s/p cta at [facility] Allergies morphine Allergy (Unknown, Verified 07/24/23 10:17) Unknown ENVIROMENTAL Allergy (Unknown, Uncoded 03/27/23 14:55) POST NASAL DRIP Medication List - Last Reconciled 10/26/23 by Marsha Dominguez NP-C aspirin (Adult Aspirin Regimen) 81 mg PO DAILY bromocriptine 5 mg (2 x 2.5 mg) PO BEDTIME calcium carbonate-vitamin D3 600 mg-5 mcg (200 unit) 1 tab PO BID cetirizine (Allergy Relief (cetirizine)) 10 mg PO DAILY cholecalciferol (vitamin D3) 25 mcg PO DAILY finasteride 5 mg PO DAILY levothyroxine 100 mcg PO QAM losartan 100 mg PO DAILY metoprolol succinate ER 50 mg PO DAILY 90 days rosuvastatin 20 mg PO DAILY tamsulosin 0.4 mg PO BEDTIME HPI HPI 3 mth s/p cta at [facility]: Details: Bandar is an 83-year-old male with past medical history of hypertension, hyperlipidemia, abdominal aortic aneurysm, left bundle branch block who reported decreased activity tolerance and recently had a CTA of the coronaries and now presents for follow-up. Today he reports that he has been doing well since his last visit. He still believes his activity tolerance is lower than it had been. He currently walks about 5000 steps per day. Is trying to increase his walking to a goal of 10,000 steps per day. He does have some daytime fatigue but tells me he was recently diagnosed with sleep apnea. He now has a mask which he just got the other day. He is unsure yet if the mask is helpful. Has no chest discomfort at rest or w ith activity. No heart palpitations, lightheadedness, shortness of breath, PND, orthopnea or edema. Takes his meds as directed. is present. [facility] Medical History Painful arc syndrome of right shoulder Nocturia Lipid disorder Other specified hypothyroidism Prolactinoma Hypertension, essential Surgical History History of biopsy History of surgery Family History Father No problems noted. Mother Colon cancer Brother No problems noted. Brother No problems noted. Sister No problems noted. Social History Housing: House Alcohol intake: never Patient Tobacco Use Status: Former Tobacco user e-Cigarette/Vaping Use: Never Used service: Yes Current occupational status: retired Cognitive needs: No Hearing needs: No Vision needs: No Review of Systems Const All systems reviewed & are unremarkable except as noted in HPI and below Denies weakness ENT Denies dizziness Card Denies chest pain, Denies chest pain with activity, Denies syncope, Denies rapid heart rate, Denies pedal edema, Denies edema, Denies leg edema, Denies lightheadedness, Denies palpitations, Denies dyspnea, Denies dyspnea on exertion and Denies orthopnea Resp Denies cough, Denies dyspnea and Denies dyspnea on exertion GI Denies hematochezia and Denies change in stool character Musc Denies abnormal gait, Denies muscle cramps, Denies muscle weakness, Denies numbness, Denies radiating pain into limb and Denies tingling Neuro Denies abnormal gait, Denies dizziness, Denies syncope, Denies numbness, Denies tingling and Denies weakness Endo Denies palpitations Physical Exam Vital Signs: Last Vital Signs Pulse 64 10/26/23 13:07 BP 130/68 10/26/23 13:07 BMI result Body Mass Index 30.1 Const General: cooperative, healthy appearing, comfortable and no acute distress Orientation/consciousness: patient oriented x3 Neck Neck: Yes normal visual inspection and Yes no JVD Resp Effort & Inspection: normal respiratory effort Auscultation: clear to auscultation bilaterally, no crackles, no rales, no rhonchi and no wheezes Cardio Jugular venous distension: no JVD Rate: regular rate Rhythm: regular rhythm Heart sounds: S1 normal heart sound present, S2 normal heart sound present, no gallops, no murmurs and no rubs Peripheral pulses: Peripheral pulses 2+ throughout Neuro General: patient oriented x3 Extrem General: Yes normal to inspection and No no pedal edema Psych Appearance: grossly normal Mental Status: mental status grossly normal Speech and movement: Normal speech and movement present Assessment & Plan Assessment & Plan (1) Activity intolerance related to fatigue: Code(s): R53.83 - Other fatigue Category: Medical Plan: On prior visits Patient reported decreasing activity tolerance over the last year. He counts his steps and has been doing less than he had been in the past. He did not have reports of chest discomfort or shortness of breath. He has a strong family history of CAD in 3 of his siblings. His EKG shows left bundle branch block which is not new. Echocardiogram done 12/28/2022 shows EF 54%, no valve abnormalities, mild increase in the LV wall thickness. Nuclear stress test done 12/29/2022 shows no clear ischemia or infarct, perfusion defects in the septum and inferior wall probably related to known left bundle branch block, normal EF. Cardiac risk factors of family history, age, hypertension, hyperlipidemia. A CTA of the coronary arteries was done on 10/17/2023 showing nonobstructive coronary artery disease with minimal stenosis of the left main, mild stenosis of the proximal LAD and minimal stenosis of the mid LAD, mild scattered atherosclerotic plaque in the descending thoracic aorta. Test results reviewed with him in detail. Copy of the report provided to him. Informed of the diagnosis of nonobstructive coronary artery disease. He has no anginal symptoms. He is working on increasing his activity tolerance. Will continue on aspirin indefinitely. Continue rosuvastatin with ideal LDL goal less than 70. Continue metoprolol. Signs and symptoms of angina reviewed with him. Cardiology follow-up in 6 months, sooner if needed. (2) LBBB (left bundle branch block): Code(s): I44.7 - Left bundle-branch block, unspecified Category: Medical Plan: Present on EKG. Not new. EKG nondiagnostic for ischemia. (3) AAA (abdominal aortic aneurysm): Code(s): I71.40 - Abdominal aortic aneurysm, without rupture, unspecified Category: Medical Qualifiers: Abdominal aorta location: infrarenal aorta Presence of rupture: without rupture Qualified Code(s): I71.43 - Infrarenal abdominal aortic aneurysm, without rupture Plan: History of abdominal aortic aneurysm. Abdominal ultrasound done 01/25/2023 showed a 4.7 infrarenal abdominal aortic aneurysm. A CTA of the abdomen and pelvis was done on 03/05/2023 showing abdominal aortic aneurysm 4.5 cm. Was evaluated by Dr. Odonnell in March. He is on aspirin and statin. [place] LDL goal less than 70. Labs done 01/04/2023 showed LDL 58. He will continue follow with Dr. Odonnell. Reviewed light physical activity and no heavy lifting. Plan Time spent on chart review, documentation, interview and assessment Coding Level of Care Code Est Pt Level 3 (48888) Diagnoses Activity intolerance related to fatigue R53.83 LBBB (left bundle branch block) I44.7 Infrarenal abdominal aortic aneurysm (AAA) without rupture I71.43 Abdominal aorta location: infrarenal aorta Presence of rupture: without rupture Time Spent (min) 24
[2023-10-26 13:07] VITALS: BP 130/68; PULSE 64; BMI 30.1
== END 2023-10-26 14:09 | disposition home or self-care (01) ==
PROVIDERS: PCP Internal Medicine; Visit Provider Nurse Practitioner Family
DX: R53.83 Other fatigue (principal); I44.7 Left bundle-branch block, unspecified; I71.43 Infrarenal abdominal aortic aneurysm, without rupture
CPT/HCPCS: 99213

== ENCOUNTER → 2023-10-26 13:04 | Outpatient (BNVA) | payer MEDICARE, OTHER, SELFPAY | PROVIDERS: PCP Internal Medicine; Visit Provider Nurse Practitioner Family | DX: R53.83 Other fatigue (principal); I44.7 Left bundle-branch block, unspecified; I71.43 Infrarenal abdominal aortic aneurysm, without rupture | CPT/HCPCS: 99212 ==

== ENCOUNTER 2023-10-30 13:46 | Outpatient (AMB) | payer MEDICARE, OTHER, SELFPAY ==
[2023-10-30 13:49] VITALS: BP 136/84; BMI 30.1
--- NOTE | 2023-10-30 13:49 | A.OFFVIS_ITS ---
Vital Signs 10/30/23 13:49 Height 5 ft 11 in Weight 216 lb BMI 30.1 BP 136/84 Blood Pressure Location Rt brachial Position Sitting Intake Visit Reasons: 6m follow up s/p AAA US 09/25/23 Intake Note: Bandar is a 83 year old male who presents to the office today for a 6 month follow up s/p AAA US 09/25/23. Pt states his only complaint is being tired most of the time. Allergies morphine Allergy (Unknown, Verified 10/30/23 13:51) Unknown ENVIROMENTAL Allergy (Unknown, Uncoded 10/30/23 13:51) POST NASAL DRIP HPI HPI 6m follow up s/p AAA US 09/25/23: Details: Very pleasant 83-year-old gentleman presents for surveillance follow-up regarding aortic aneurysm. He was originally noted to have an [facility] on a [facility]. And then subsequently followed up with a CT scan. He has had no interval changes. He reports he is doing fairly well and fairly active. He is actually planning a trip to the [place] next year. Now for routine follow- up. [facility] Medical History Painful arc syndrome of right shoulder Nocturia Lipid disorder Other specified hypothyroidism Prolactinoma Hypertension, essential Surgical History History of biopsy History of surgery Family History Father No problems noted. Mother Colon cancer Brother No problems noted. Brother No problems noted. Sister No problems noted. Social History Housing: House Alcohol intake: never Patient Tobacco Use Status: Former Tobacco user e-Cigarette/Vaping Use: Never Used service: Yes Current occupational status: retired Cognitive needs: No Hearing needs: No Vision needs: No Review of Systems Const All systems reviewed & are unremarkable except as noted in HPI and below Reports no additional complaints ENT Reports Normal hearing present Card Denies chest pain, Denies chest pain at rest, Denies chest pain with activity and Denies pedal edema Resp Denies cough GI Denies abdominal pain Musc Denies abnormal gait, Denies muscle cramps and Denies radiating pain into limb Skin/Breast Denies skin ulcer and Denies wounds Neuro Reports Normal hearing present and Denies abnormal gait Psych Reports no additional complaints Physical Exam Vital Signs: Last Vital Signs BP 136/84 10/30/23 13:49 BMI result Body Mass Index 30.1 Const General: cooperative, healthy appearing and comfortable Orientation/consciousness: oriented to person, oriented to place and oriented to time HEENT Head: Yes normal to inspection Neck Neck: Yes normal visual inspection Carotids: no bruits Chest Chest palpation & inspection: normal inspection of the chest Resp Effort & Inspection: normal respiratory effort and able to speak in complete sentences Auscultation: clear to auscultation bilaterally, no crackles, no rales, no rhonchi and no wheezes Cardio Rate: regular rate Rhythm: regular rhythm Heart sounds: S1 normal heart sound present and S2 normal heart sound present Bruits: no carotid bruits Peripheral pulses: Peripheral pulses 2+ throughout GI Inspection: Yes normal to inspection Skin Wounds: no wounds Hair: normal Neuro General: oriented to person, oriented to place and oriented to time Cranial nerves: Yes CN's II-XII intact bilaterally and Yes Normal hearing presen t Cognition (Neuro): normal cognition Motor exam (neuro): 5/5 motor strength present throughout Extrem Other: venous exam: No significant superficial varicosities or spider telangiectasias, minimal edema General: No clubbing, No cyanosis and No edema Psych Appearance: grossly normal Mental Status: mental status grossly normal Speech and movement: Normal speech and movement present Results Reviewed Results Reviewed: Arterial ultrasound dated 09/25/2023 demonstrates aortic aneurysm of 4.4 cm. Written report and images were reviewed. Assessment & Plan Assessment & Plan (1) AAA (abdominal aortic aneurysm): Code(s): I71.40 - Abdominal aortic aneurysm, without rupture, unspecified Category: Medical Qualifiers: Abdominal aorta location: infrarenal aorta Presence of rupture: without rupture Qualified Code(s): I71.43 - Infrarenal abdominal aortic aneurysm, without rupture Plan: In short patient has radiologic evidence of a AAA on 4.5 cm on ultrasound. We have discussed the pathophysiology of aortic aneurysms and the risk of ruptures. We have discussed rupture risk based on size. In addition we have discussed conservative measures and risk factor modification for prevention of increase in size of the aneurysm. the patient is scheduled for surveillance follow-up in approximately 1 year. Thank you for allowing us to participate in the care of this patient Orders: Orders US abdominal aortic aneurysm 1 Year I71.43 - Infrarenal abdominal aortic aneurysm, without rupture Coding Level of Care Code Est Pt Level 4 (51974) Diagnoses Infrarenal abdominal aortic aneurysm (AAA) without rupture I71.43 Abdominal aorta location: infrarenal aorta Presence of rupture: without rupture
== END 2023-10-30 14:43 | disposition home or self-care (01) ==
PROVIDERS: PCP Internal Medicine; Visit Provider Surgery Vascular Surgery
DX: I71.43 Infrarenal abdominal aortic aneurysm, without rupture (principal)
CPT/HCPCS: 99214

== ENCOUNTER → 2023-10-30 13:46 | Outpatient (BNVA) | payer MEDICARE, OTHER, SELFPAY | PROVIDERS: PCP Internal Medicine; Visit Provider Surgery Vascular Surgery | DX: I71.43 Infrarenal abdominal aortic aneurysm, without rupture (principal) | CPT/HCPCS: 99212 ==

== ENCOUNTER 2023-11-06 09:37 | Outpatient (AMB) | payer MEDICARE, OTHER, SELFPAY ==
--- NOTE | 2023-11-06 09:41 | MHC.PC.OV ---
Vital Signs 11/06/23 09:42 Height 5 ft 11 in Weight 216 lb BMI 30.1 BP 132/70 Blood Pressure Location Rt brachial Position Sitting Pulse 64 Pulse Source Pulse Oximeter Pulse Oximetry (%) 97 Oxygen Delivery Method Room Air Intake Visit Reasons: 4M F/U Allergies morphine Allergy (Unknown, Verified 11/06/23 09:44) Unknown ENVIROMENTAL Allergy (Unknown, Uncoded 10/30/23 13:51) POST NASAL DRIP Medication List - Last Reconciled 11/06/23 by Wilfredo Bernard MD aspirin (Adult Aspirin Regimen) 81 mg PO DAILY bromocriptine 5 mg (2 x 2.5 mg) PO BEDTIME calcium carbonate-vitamin D3 600 mg-5 mcg (200 unit) 1 tab PO BID cetirizine (Allergy Relief (cetirizine)) 10 mg PO DAILY cholecalciferol (vitamin D3) 25 mcg PO DAILY finasteride 5 mg PO DAILY levothyroxine 100 mcg PO QAM losartan 100 mg PO DAILY metoprolol succinate ER 50 mg PO DAILY 90 days rosuvastatin 20 mg PO DAILY tamsulosin 0.4 mg PO BEDTIME Tobacco use date assessed: 11/06/23 Fall risk assessment: No Falls in past year Last assessed Fall Risk: 11/06/23 Dental Screening Dental Screen Date: 11/06/23 Did you have a dental visit in the last 12 months?: Yes Did you have a dental problem in the last 6 months where you did not have access to dental care?: No Was dental information given to patient?: Patient has dentist HPI 4M F/U HPI Details Patient is 83-year-old gentleman with a history of AAA, left bundle branch block, BPH, ED, lumbar radiculopathy, vitamin-D deficiency, vitamin-B deficiency and slightly low hemoglobin, Lipid disorder, hypothyroidism, prolactinoma, hypertension Recently had cataract surgery, doing well Labs are needed before next visit order placed Patient got sleep apnea machine however the mask is not fitting optimally and still having difficulty sleeping at night Continued to feel tired and sleepy during the day, he is in process of getting a new mask Patient is also seeing Cardiology, ejection fraction is 56% BMI is elevated patient is having difficulty losing weight BPH: Patient is taking tamsulosin and finasteride and is doing well Obesity: Having difficulty losing weight BMI is 30.1 Follow-up in 4 [facility] Medical History Painful arc syndrome of right shoulder Nocturia Lipid disorder Other specified hypothyroidism Prolactinoma Hypertension, essential Surgical History History of biopsy History of surgery Family History Father No problems noted. Mother Colon cancer Brother No problems noted. Brother No problems noted. Sister No problems noted. Social History Housing: House Alcohol intake: never Patient Tobacco Use Status: Former Tobacco user e-Cigarette/Vaping Use: Never Used service: Yes Current occupational status: retired Cognitive needs: No Hearing needs: No Vision needs: No Questionnaire PHQ-9 Over the last 2 weeks, how often have you been bothered by any of the following problems? 1. Little interest or pleasure in doing things: not at all 2. Feeling down, depressed, or hopeless: not at all 3. Trouble falling or staying asleep, or sleeping too much: not at all 4. Feeling tired or having little energy: several days 5. Poor appetite or overeating: not at all 6. Feeling bad about yourself - or that you are a failure or have let yourself or your family down: not at all 7. Trouble concentrating on things, such as reading the newspaper or watching television: not at all 8. Moving or speaking so slowly that other people could have noticed. Or the opposite - being so fidgety or restless that you have been moving around a lot more than usual: not at all 9. Thoughts that you would be better off or of hurting yourself in some way: not at all Total score: 1 Depression Screening Interpretation: Negative Depression Screening Done: Yes [id number] - PHQ-9 Billing: Yes Source: Developed by Drs. Judah Isabel, Willa Geiger, Farhad Malcolm and colleagues, with an educational maritza from [employer]. Thrive Questionnaire Date Thrive assessed: 11/06/23 I am a: Patient What is your living situation today?: I have a steady place to live Within the past 12 months, did the food you bought not last and you didn't have the money to get more?: Never true Within the past 12 months, did you worry whether your food would run out before you got money to buy more?: Never true Do you have trouble paying for medicines?: No Do you have trouble getting transportation to medical appointments?: No Do you have trouble paying your heating and electricity bill?: No Do you have trouble taking care of your child, family member or friend?: No Do you have trouble with day-to-day activities such as bathing, preparing meals, shopping, managing finances, etc.?: No Are you currently unemployed and looking for a job?: No Are you interested in more education?: No Please select the resources that you would like help with: Housing/[facility] Currently or been in a relationship where the following occur: No concerns reported THRIVE Score: 0 AUDIT C Alcohol Use Questionnaire (AUDIT-C) 1. How often do you have a drink containing alcohol?: Monthly or less 2. How many drinks containing alcohol do you have on a typical day when you are drinking?: 1 or 2 3. How often do you have six or more drinks on one occasion?: Never Total Score: 1 Score Reviewed/Action Taken: Yes DIPAK-7 AMB Questionnaire DIPAK-7 Date DIPAK - 7 assessed: 11/06/23 Feeling nervous, anxious, or on edge: 0 = Not at all Not being able to stop or control worryin = Not at all Worrying too much about different things: 0 = Not at all Trouble relaxin = Not at all Being so restless that it is hard to sit still: 0 = Not at all Becoming easily annoyed or irritable: 0 = Not at all Feeling afraid as if something awful might happen: 0 = Not at all Total DIPAK-7 score (0-4 normal; 5-9 mild; 10-14 moderate; 15-21 severe): 0 Source: Developed by Drs. Judah Isabel, Willa Geiger, Farhad Malcolm and colleagues, with an educational maritza from [employer]. DIPAK-7 Assessment Billing DIPAK-7 Assessment Tool: DIPAK-7 Assessment 41017 Review of Systems Const Denies chills and Denies fever(s) ENT Denies epistaxis and Denies nasal discharge Card Denies chest pain Resp Denies chest congestion, Denies cough and Denies hemoptysis GI Denies diarrhea and Denies nausea Skin/Breast Denies rash Neuro Reports no additional complaints Psych Reports no additional complaints Endo Reports no additional complaints Physical exam (Primary Care) Vital Signs: Last Vital Signs Pulse 64 11/06/23 09:42 BP 132/70 11/06/23 09:42 Pulse Ox 97 11/06/23 09:42 Oxygen Delivery Method Room Air 11/06/23 09:42 BMI result Body Mass Index 30.1 Tobacco/Smoking Status: Tobacco use Status Tobacco use date assessed 11/06/23 11/06/23 09:45 Patient Tobacco Use Status Former Tobacco user 11/06/23 09:45 e-Cigarette/Vaping Use Never Used 11/06/23 09:45 PHQ-9: PHQ-9 Score PHQ-9: Total score 1 11/06/23 10:09 Depression Screening Interpretation: Negative Thrive Assessment: Date of Thrive Assessment Date Thrive assessed 11/06/23 11/06/23 09:45 Currently or been in a relationship where the following occur: No concerns reported Const General: cooperative, comfortable and no acute distress Orientation/consciousness: patient oriented x3 HENMT Head: Yes normocephalic Eyes General: appearance normal, both eyes and all related structures Neck Neck: Yes supple Resp Effort & Inspection: normal respiratory effort, no cough and no stridor Cardio Rhythm: regular rhythm Heart sounds: S1 normal heart sound present and S2 normal heart sound present Skin General skin exam: turgor normal Neuro General: patient oriented x3, tone normal and moves all extremities Extrem Right lower extremity: no edema Left lower extremity: no edema Assessment and Plan Assessment & Plan (1) Hypertension, essential: Code(s): I10 - Essential (primary) hypertension (2) 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 (3) Other specified hypothyroidism: Code(s): E03.8 - Other specified hypothyroidism (4) Lipid disorder: Code(s): E78.9 - Disorder of lipoprotein metabolism, unspecified (5) BPH w urinary obs/LUTS: Code(s): N40.1 - Benign prostatic hyperplasia with lower urinary tract symptoms; N13.8 - Other obstructive and reflux uropathy (6) B12 deficiency: Code(s): E53.8 - Deficiency of other specified B group vitamins (7) Vitamin D deficiency: Code(s): E55.9 - Vitamin D deficiency, unspecified (8) AAA (abdominal aortic aneurysm): Code(s): I71.40 - Abdominal aortic aneurysm, without rupture, unspecified Qualifiers: Abdominal aorta location: infrarenal aorta Presence of rupture: without rupture Qualified Code(s): I71.43 - Infrarenal abdominal aortic aneurysm, without rupture (9) LBBB (left bundle branch block): Code(s): I44.7 - Left bundle-branch block, unspecified (10) Diet-controlled diabetes mellitus: Code(s): E11.9 - Type 2 diabetes mellitus without complications Plan Patient is 83-year-old gentleman with a history of AAA, left bundle branch block, BPH, ED, lumbar radiculopathy, vitamin-D deficiency, vitamin-B deficiency and slightly low hemoglobin, Lipid disorder, hypothyroidism, prolactinoma, hypertension Recently had cataract surgery, doing well Labs are needed before next visit order placed Patient got sleep apnea machine however the mask is not fitting optimally and still having difficulty sleeping at night Continued to feel tired and sleepy during the day, he is in process of getting a new mask Patient is also seeing Cardiology, ejection fraction is 56% BMI is elevated patient is having difficulty losing weight BPH: Patient is taking tamsulosin and finasteride and is doing well Obesity: Having difficulty losing weight BMI is 30.1 Follow-up in 4 M Orders: Orders Complete Blood Count Auto Diff Today E03.8 - Other specified hypothyroidism, E11.9 - Type 2 diabetes mellitus without complications, E78.9 - Disorder of lipoprotein metabolism, unspecified, I10 - Essential (primary) hypertension, N13.8 - Other obstructive and reflux uropathy, N40.1 - Benign prostatic hyperplasia with lower urinary tract symptoms Comprehensive [place]. Panel Fast Today E03.8 - Other specified hypothyroidism, E11.9 - Type 2 diabetes mellitus without complications, E78.9 - Disorder of lipoprotein metabolism, unspecified, I10 - Essential (primary) hypertension, N13.8 - Other obstructive and reflux uropathy, N40.1 - Benign prostatic hyperplasia with lower urinary tract symptoms Prostate Specific Antigen Today E03.8 - Other specified hypothyroidism, E11.9 - Type 2 diabetes mellitus without complications, E78.9 - Disorder of lipoprotein metabolism, unspecified, I10 - Essential (primary) hypertension, N13.8 - Other obstructive and reflux uropathy, N40.1 - Benign prostatic hyperplasia with lower urinary tract symptoms Lipid Panel Today E03.8 - Other specified hypothyroidism, E11.9 - Type 2 diabetes mellitus without complications, E78.9 - Disorder of lipoprotein metabolism, unspecified, I10 - Essential (primary) hypertension, N13.8 - Other obstructive and reflux uropathy, N40.1 - Benign prostatic hyperplasia with lower urinary tract symptoms TSH reflex Free T4 Today E03.8 - Other specified hypothyroidism, E11.9 - Type 2 diabetes mellitus without complications, E78.9 - Disorder of lipoprotein metabolism, unspecified, I10 - Essential (primary) hypertension, N13.8 - Other obstructive and reflux uropathy, N40.1 - Benign prostatic hyperplasia with lower urinary tract symptoms Hemoglobin A1c Today E11.9 - Type 2 diabetes mellitus without complications, E53.8 - Deficiency of other specified B group vitamins, E55.9 - Vitamin D deficiency, unspecified Vitamin D 25-OH (D2 and D3) Today E11.9 - Type 2 diabetes mellitus without complications, E53.8 - Deficiency of other specified B group vitamins, E55.9 - Vitamin D deficiency, unspecified Vitamin B12 Today E11.9 - Type 2 diabetes mellitus without complications, E53.8 - Deficiency of other specified B group vitamins, E55.9 - Vitamin D deficiency, unspecified Coding Level of Care Code Est Pt Level 4 (48816) Complex EM visit Add On G2211 Diagnoses Hypertension, essential I10 Prolactinoma D35.2 Other specified hypothyroidism E03.8 Lipid disorder E78.9 BPH w urinary obs/LUTS N40.1; N13.8 B12 deficiency E53.8 Vitamin D deficiency E55.9 Infrarenal abdominal aortic aneurysm (AAA) without rupture I71.43 Abdominal aorta location: infrarenal aorta Presence of rupture: without rupture LBBB (left bundle branch block) I44.7 Diet-controlled diabetes mellitus E11.9 Additional Codes DIPAK-7 Assessment Billing - DIPAK-7 Assessment Tool: DIPAK-7 Assessment [id number] ([id number])
[2023-11-06 09:42] VITALS: BP 132/70; PULSE 64; O2SAT 97; BMI 30.1
== END 2023-11-06 10:15 | disposition home or self-care (01) ==
PROVIDERS: PCP Internal Medicine; Visit Provider Internal Medicine
DX: I10 Essential (primary) hypertension (principal); D35.2 Benign neoplasm of pituitary gland; I71.43 Infrarenal abdominal aortic aneurysm, without rupture; E11.9 Type 2 diabetes mellitus without complications; E03.8 Other specified hypothyroidism; E78.9 Disorder of lipoprotein metabolism, unspecified; N40.1 Benign prostatic hyperplasia with lower urinary tract symptoms; N13.8 Other obstructive and reflux uropathy; E53.8 Deficiency of other specified B group vitamins; E55.9 Vitamin D deficiency, unspecified; I44.7 Left bundle-branch block, unspecified
CPT/HCPCS: 99214; G2211

== ENCOUNTER 2024-01-16 07:12 | Outpatient (REF) | payer MEDICARE, OTHER, SELFPAY ==
[2024-01-16 10:08] LABS: MANUAL DIFF FLAG NO
[2024-01-16 10:19] LABS: Basophils Absolute Auto 0.1 X10*3/uL (0.0-0.2); Eosinophils Absolute Auto 0.3 X10*3/uL (0.0-0.4); Eosinophils Percent Auto 4.7 % (0-4); Hematocrit 45.5 % (42.0-52.0); Hemoglobin 14.7 g/dl (14.0-18.0); Imm Gran Abs Auto 0.02 X10*3/uL (0.00-0.03); Imm Gran Pct Auto 0.3 % (0.0-0.4); Lymphocytes Absolute Auto 2.4 X10*3/uL (1.2-4.9); Lymphocytes Percent Auto 35.5 % (20-40); Mean Corpuscular HGB Conc 32.3 g/dl (31.0-36.0); Mean Corpuscular Hemoglobin 30.6 pg (27.0-33.0); Mean Corpuscular Volume 94.8 fL (80.0-98.0); Mean Platelet Volume 9.7 fL (9.4-12.4); Monocytes Absolute Auto 0.6 X10*3/uL (0.1-1.2); Monocytes Percent Auto 8.3 % (2-11); Neutrophils Absolute Auto 3.4 x10*3/uL (2.0-8.3); Neutrophils Percent Auto 50.2 % (45-73); Platelet Count 179 X10*3/uL (160-400); Red Cell Distribution Width 13.5 % (11.0-16.0); White Blood Count 6.7 X10*3/uL (4.8-10.8)
[2024-01-16 10:37] LABS: Estimated Average Glucose 100 mg/dL; Hemoglobin A1c % 5.1 % (<6.0); Total Hemoglobin (HGBA1C) 3568.4379 umol/L
[2024-01-16 12:06] LABS: Alanine Aminotransferase 32 U/L (0-40); Alkaline Phosphatase 62 U/L (39-117); Anion Gap 10 (12-20); Aspartate Amino Transferase 37 U/L (5-37); Bilirubin Total 0.7 mg/dL (0.0-1.0); Blood Urea Nitrogen 19 mg/dL (9-16); Calcium 10.1 mg/dL (8.4-10.2); Carbon Dioxide 31 mmol/L (22-29); Chloride 109 mmol/L (96-108); Cholesterol 121 mg/dL (<200); Estimated Glomerular Filt Rate > 60; Glucose Fasting 90 mg/dL (60-99); HDL Cholesterol 49 mg/dL (>40); LDL Cholesterol Calculated 63 mg/dL (<100); Potassium 3.8 mmol/L (3.3-5.1); Sodium 146 mmol/L (135-145); Total Protein 6.8 g/dL (6.5-8.0); Triglycerides 48 mg/dL (<150); Vitamin B12 526 pg/mL (200-900)
[2024-01-16 12:27] LABS: TSH reflex Free T4 0.91 uIU/mL (0.32-4.0)
[2024-01-20 16:59] LABS: Vitamin D 25-OH, D2 <4 ng/mL; Vitamin D 25-OH, D3 31 ng/mL; Vitamin D 25-OH, Total 31 ng/mL (30-100)
== END 2024-01-16 07:13 | disposition home or self-care (01) ==
LOC: HO.HMGCLDS 07:12
PROVIDERS: PCP Internal Medicine; Visit Provider Internal Medicine
DX: I10 Essential (primary) hypertension (principal); E03.8 Other specified hypothyroidism; E78.9 Disorder of lipoprotein metabolism, unspecified; E11.9 Type 2 diabetes mellitus without complications; N40.1 Benign prostatic hyperplasia with lower urinary tract symptoms; N13.8 Other obstructive and reflux uropathy; E55.9 Vitamin D deficiency, unspecified; E53.8 Deficiency of other specified B group vitamins; Z12.5 Encounter for screening for malignant neoplasm of prostate
CPT/HCPCS: 36415; 80053; 80061; 82306; 82607; 83036; 84153; 84443; 85025

== ENCOUNTER 2024-01-22 08:46 | Outpatient (AMB) | payer MEDICARE, OTHER, SELFPAY ==
[2024-01-22 08:49] VITALS: BP 130/74; PULSE 66; O2SAT 96; BMI 30.3
--- NOTE | 2024-01-22 08:49 | A.OFFVIS_ITS ---
Intake Vital Signs 01/22/24 08:49 Height 5 ft 11 in Weight 217 lb 2 oz BMI 30.3 BP 130/74 Blood Pressure Location Lt brachial Position Sitting Pulse 66 Pulse Source Pulse Oximeter Pulse Oximetry (%) 96 Oxygen Delivery Method Room Air Intake Visit Reasons: V [id number] Allergies morphine Allergy (Unknown, Verified 01/22/24 08:49) Unknown ENVIROMENTAL Allergy (Unknown, Uncoded 10/30/23 13:51) POST NASAL DRIP Medication List - Last Reconciled 01/22/24 by Wilfredo Bernard MD aspirin (Adult Aspirin Regimen) 81 mg PO DAILY bromocriptine 5 mg (2 x 2.5 mg) PO BEDTIME calcium carbonate-vitamin D3 600 mg-5 mcg (200 unit) 1 tab PO BID cetirizine (Allergy Relief (cetirizine)) 10 mg PO DAILY cholecalciferol (vitamin D3) 25 mcg PO DAILY finasteride 5 mg PO DAILY levothyroxine 100 mcg PO QAM losartan 100 mg PO DAILY metoprolol succinate ER 50 mg PO DAILY 90 days rosuvastatin 20 mg PO DAILY tamsulosin 0.4 mg PO BEDTIME Do you need a note to return to daycare/school/sports/work: No HPI [facility] [id number] HPI Details Patient is 83-year-old gentleman with a history of AAA, left bundle branch block, BPH, ED, lumbar radiculopathy, vitamin-D deficiency, vitamin-B deficiency and slightly low hemoglobin, Lipid disorder, hypothyroidism, prolactinoma, hypertension Patient is doing well, he is in his usual state of health Keeping up with all his appointments, eye exam was September Still working on his CPAP machine, he has appointment coming up with a specialist Continued to feel little bit more tired than usual Patient is also seeing Cardiology, ejection fraction is 56% BMI is elevated patient is aware of it and is trying to lose weight BPH: Patient is taking tamsulosin and finasteride and is doing well Labs done recently reviewed Follow-up in 4 M HPI Comments History of Present Illness Details AWV Medical/social history reviewed Past medical history reviewed False Pass of care / care team list updated Surgical/ hospitalization history reviewed Current medications including OTC and supplements reviewed Family history reviewed Tobacco controlled form updated Alcohol use form updated Illicit drug use in social history reviewed Current diagnosis of depression ?screening updated Appropriate PHQ 2/PHQ-9 completed . Vital signs reviewed Alcohol tobacco drug use reviewed and discussed . MMSE completed . ? Fall risk: ?Assessed Fall history: ?None Have you had any falls with injury in the past year?? No Have you had 2 or more falls in the past year?? No Fall risk assessment completed Home safety discussed with the patient Functional ability assessed and discussed and documented Activities of daily living reviewed and appropriate actions taken . HRA filled out by the patient and reviewed by provider and scanned . Appropriate written screening schedule established . Any health advise needed provided . Advance care planning discussed with the patient , necessary paperwork filled Examination IPPE/AWE: Balance intact Romberg intact Tandem walk failed walk-in turn intact rise from sit to stand intact . ?Hearing ?whisper test pass . Medication list reviewed, patient is stable on medications All other providers patient is seeing discussed and noted . [facility] Medical History Painful arc syndrome of right shoulder Nocturia Lipid disorder Other specified hypothyroidism Prolactinoma Hypertension, essential Surgical History History of biopsy History of surgery Family History Father No problems noted. Mother Colon cancer Brother No problems noted. Brother No problems noted. Sister No problems noted. Social History Housing: House Alcohol intake: never Patient Tobacco Use Status: Former Tobacco user e-Cigarette/Vaping Use: Never Used service: Yes Current occupational status: retired Cognitive needs: No Hearing needs: No Vision needs: No Questionnaire Medicare Wellness Checkup What is your age?: 82 or older What gender do you identify with?: male During the past 4 weeks, how much have you been bothered by emotional problems such as feeling anxious, depressed, irritable, sad or downhearted, and blue?: not at all During the past 4 weeks, has your physical & emotional health limited your social activities with family, friends, neighbors, or groups?: not at all During the past 4 weeks, how much bodily pain have you generally had?: very mild pain During the past 4 weeks, was someone available to help you if you needed & wanted help?: yes, as much as I wanted During the past 4 weeks, what was the hardest physical activity you could do for at least 2 minutes?: moderate Can you get to places out of walking distance without help? (For eg., can you travel alone on buses, taxis or drive your car?): Yes Can you go shopping for groceries or clothes without someone's help?: Yes Can you prepare your own meals?: Yes Can you do your housework without help?: Yes Because of any health problems, do you need the help of another person with your personal care needs such as eating, bathing, dressing or getting around the house?: No Can you handle your own money without help?: Yes During the past 4 weeks, how would you rate your health in general?: very good During the past 4 weeks how have things been going for you?: very well; could hardly better Are you having difficulties driving your car?: no Do you always fasten your seat belt when you are in a car?: yes, usually During past 4 weeks, have you been bothered by the following: never: Falling or dizzy when standing up, Sexual problems?, Trouble eating well?, Teeth or denture problems? and Problems using the telephone? and sometimes: Tiredness or fatigue? Have you fallen 2 or more times in the past year?: No Are you afraid of falling?: No Are you a smoker?: no During the past 4 weeks, how many drinks of wine, beer, or other alcoholic beverages did you have?: 1 drink or less per week Do you exercise for about 20 minutes 3 or more times a week?: yes, most of the time Have you been given information to help with the following?: no: Hazards in your house that might hurt you? and no: Keeping track of your medications? How often do you have trouble taking medicines the way you have been told to take them?: I always take medicine as prescribed How confident are you that you can control & manage most of your health problems?: very confident What is your race?: White Mini Mental State Exam (MMSE) Orientation What is the (year) (season) (date) (day) (month)?: year, season, date, day and month Where are we (state) (county) (town or city) (hospital) (floor)?: state, county, town or city, hospital/clinic and floor Score Score: 10 Activity of Daily Living Bathing - sponge bath, tub bath or shower: receives no assistance (gets in/out by self, if usual bathing means Dressing - getting clothes from closets & drawers, including inner/outer garments & fasteners.: gets clothes & gets completely dressed without help Toileting - going to the 'toilet room' for urine/bowel elimination & cleaning self/arranging clothes: goes to toilet room, cleans self, arranges clothes wit hout help Transfer: moves in & out of bed and chair without help (may use support object) Continence: has occasional 'accidents' Feeding: feeds self without help Total Score: 0 Information obtained from: patient Using telephone: independent Traveling: independent Shopping: independent Preparing meals: independent Housework: independent Taking medicine: independent Managing money: independent PHQ-9 Over the last 2 weeks, how often have you been bothered by any of the following problems? 1. Little interest or pleasure in doing things: not at all 2. Feeling down, depressed, or hopeless: not at all 3. Trouble falling or staying asleep, or sleeping too much: not at all 4. Feeling tired or having little energy: several days 5. Poor appetite or overeating: not at all 6. Feeling bad about yourself - or that you are a failure or have let yourself or your family down: not at all 7. Trouble concentrating on things, such as reading the newspaper or watching television: not at all 8. Moving or speaking so slowly that other people could have noticed. Or the opposite - being so fidgety or restless that you have been moving around a lot more than usual: not at all 9. Thoughts that you would be better off or of hurting yourself in some way: not at all Total score: 1 Depression Screening Interpretation: Negative Depression Screening Done: Yes 40737 - PHQ-9 Billing: Yes Source: Developed by Drs. Judah Isabel, Willa Geiger, Farhad Malcolm and colleagues, with an educational maritza from [employer]. Review of Systems Const Denies chills and Denies fever(s) ENT Denies epistaxis and Denies nasal discharge Card Denies chest pain Resp Denies chest congestion, Denies cough and Denies hemoptysis GI Denies diarrhea and Denies nausea Skin/Breast Denies rash Neuro Reports no additional complaints Psych Reports no additional complaints Endo Reports no additional complaints Physical Exam Vital Signs: Last Vital Signs Pulse 66 01/22/24 08:49 BP 130/74 01/22/24 08:49 Pulse Ox 96 01/22/24 08:49 Oxygen Delivery Method Room Air 01/22/24 08:49 BMI result Body Mass Index 30.3 Const General: cooperative, comfortable and no acute distress Orientation/consciousness: patient oriented x3 HEENT Head: Yes normocephalic Eyes General: appearance normal, both eyes and all related structures Neck Other: Supple Neck: Yes supple Resp Effort & Inspection: normal respiratory effort, no cough and no stridor Cardio Rhythm: regular rhythm Heart sounds: S1 normal heart sound present and S2 normal heart sound present Skin General skin exam: turgor normal Neuro Other: Motor sensory intact General: patient oriented x3, tone normal and moves all extremities Extrem Other: No lower extremity swelling. Right lower extremity: no edema Left lower extremity: no edema Psych Other: Normal effect, speech clear Assessment & Plan Assessment & Plan (1) Medicare annual wellness visit, subsequent: Code(s): Z00.00 - Encounter for general adult medical examination without abnormal findings (2) Diet-controlled diabetes mellitus: Code(s): E11.9 - Type 2 diabetes mellitus without complications (3) Hypertension, essential: Code(s): I10 - Essential (primary) hypertension (4) 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 (5) Other specified hypothyroidism: Code(s): E03.8 - Other specified hypothyroidism (6) Lipid disorder: Code(s): E78.9 - Disorder of lipoprotein metabolism, unspecified (7) BPH w urinary obs/LUTS: Code(s): N40.1 - Benign prostatic hyperplasia with lower urinary tract symptoms; N13.8 - Other obstructive and reflux uropathy (8) Obesity due to excess calories: Code(s): E66.09 - Other obesity due to excess calories Qualifiers: Body mass index: BMI 30.0-30.9 Obesity classification: adult class 1 (BMI 30 - 34.9) Serious obesity comorbidity presence: with serious comorbidity Qualified Code(s): E66.811 - Obesity, class 1; E66.09 - Other obesity due to excess calories; Z68.30 - Body mass index [BMI] 30.0-30.9, adult (9) AAA (abdominal aortic aneurysm): Code(s): I71.40 - Abdominal aortic aneurysm, without rupture, unspecified Qualifiers: Abdominal aorta location: infrarenal aorta Presence of rupture: without rupture Qualified Code(s): I71.43 - Infrarenal abdominal aortic aneurysm, without rupture Plan Patient is 83-year-old gentleman with a history of AAA, left bundle branch block, BPH, ED, lumbar radiculopathy, vitamin-D deficiency, vitamin-B deficiency , Lipid disorder, hypothyroidism, prolactinoma, hypertension Patient is doing well, he is in his usual state of health Keeping up with all his appointments, eye exam was in September of this year Still working on his CPAP machine, he has appointment coming up with a specialist Continued to feel little bit more tired than usual Patient is also seeing Cardiology, ejection fraction is 56% BMI is elevated patient is aware of it and is trying to lose weight BPH: Patient is taking tamsulosin and finasteride and is doing well Labs done recently reviewed Follow-up in 4 M Orders: Orders TSH reflex Free T4 3 Months E03.8 - Other specified hypothyroidism, E11.9 - Type 2 diabetes mellitus without complications, E78.9 - Disorder of lipoprotein metabolism, unspecified, I10 - Essential (primary) hypertension Complete Blood Count Auto Diff 3 Months E03.8 - Other specified hypothyroidism, E11.9 - Type 2 diabetes mellitus without complications, E78.9 - Disorder of lipoprotein metabolism, unspecified, I10 - Essential (primary) hypertension Hemoglobin A1c 3 Months E03.8 - Other specified hypothyroidism, E11.9 - Type 2 diabetes mellitus without complications, E78.9 - Disorder of lipoprotein metabolism, unspecified, I10 - Essential (primary) hypertension Comprehensive Met. Panel 3 Months E03.8 - Other specified hypothyroidism, E11.9 - Type 2 diabetes mellitus without complications, E78.9 - Disorder of lipoprotein metabolism, unspecified, I10 - Essential (primary) hypertension Quality Reporting (2019) Depression/Bipolar (159/160/161/177) PHQ-9: Total score: 1 Coding Level of Care Code Medicare Subsequent (G0439) Est Pt Level 3 (44523) Diagnoses Medicare annual wellness visit, subsequent Z00.00 Diet-controlled diabetes mellitus E11.9 Hypertension, essential I10 Prolactinoma D35.2 Other specified hypothyroidism E03.8 Lipid disorder E78.9 BPH w urinary obs/LUTS N40.1; N13.8 Class 1 obesity due to excess calories with serious comorbidity and body mass index (BMI) of 30.0 to 30.9 in adult E66.811; E66.09; Z68.30 Body mass index: BMI 30.0-30.9 Obesity classification: adult class 1 (BMI 30 - 34.9) Serious obesity comorbidity presence: with serious comorbidity Infrarenal abdominal aortic aneurysm (AAA) without rupture I71.43 Abdominal aorta location: infrarenal aorta Presence of rupture: without rupture CPT Codes Advance Care Planning - Time spent: 1-15 minutes, not on file ([id number]) Advance Care Planning Advance Care Planning discussion: Completed/Scanned Forms completed: MOLST Time spent: 1-15 minutes, not on file
== END 2024-01-22 09:33 | disposition home or self-care (01) ==
LOC: HO.HMCC 08:47
PROVIDERS: PCP Internal Medicine; Visit Provider Internal Medicine
DX: Z00.00 Encounter for general adult medical examination without abnormal findings (principal); E11.9 Type 2 diabetes mellitus without complications; D35.2 Benign neoplasm of pituitary gland; I71.43 Infrarenal abdominal aortic aneurysm, without rupture; I10 Essential (primary) hypertension; E03.8 Other specified hypothyroidism; E78.9 Disorder of lipoprotein metabolism, unspecified; N40.1 Benign prostatic hyperplasia with lower urinary tract symptoms; N13.8 Other obstructive and reflux uropathy; E66.811 Obesity, class 1; Z68.30 Body mass index [BMI] 30.0-30.9, adult

== ENCOUNTER → 2024-01-22 08:46 | Outpatient (BNVA) | payer MEDICARE, OTHER, SELFPAY | PROVIDERS: PCP Internal Medicine; Visit Provider Internal Medicine ==

== ENCOUNTER 2024-02-06 11:21 | Outpatient (AMB) | payer MEDICARE, OTHER, SELFPAY ==
--- NOTE | 2024-02-06 11:27 | MHC.PC.OV ---
Vital Signs 02/06/24 11:28 Height 5 ft 11 in Weight 218 lb BMI 30.4 BP 140/80 H Blood Pressure Location Lt brachial Position Sitting Pulse 58 Pulse Source Pulse Oximeter Pulse Oximetry (%) 97 Oxygen Delivery Method Room Air Intake Visit Reasons: Pain left leg , cannot walk Allergies morphine Allergy (Unknown, Verified 01/22/24 08:49) Unknown ENVIROMENTAL Allergy (Unknown, Uncoded 10/30/23 13:51) POST NASAL DRIP Medication List - Last Reconciled 02/06/24 by Wilfredo Bernard MD aspirin (Adult Aspirin Regimen) 81 mg PO DAILY bromocriptine 5 mg (2 x 2.5 mg) PO BEDTIME calcium carbonate-vitamin D3 600 mg-5 mcg (200 unit) 1 tab PO BID cetirizine (Allergy Relief (cetirizine)) 10 mg PO DAILY cholecalciferol (vitamin D3) 25 mcg PO DAILY finasteride 5 mg PO DAILY levothyroxine 100 mcg PO QAM losartan 100 mg PO DAILY metoprolol succinate ER 50 mg PO DAILY 90 days rosuvastatin 20 mg PO DAILY tamsulosin 0.4 mg PO BEDTIME Tobacco use date assessed: 02/06/24 Fall risk assessment: No Falls in past year Last assessed Fall Risk: 02/06/24 Dental Screening Dental Screen Date: 02/06/24 Did you have a dental visit in the last 12 months?: Yes Did you have a dental problem in the last 6 months where you did not have access to dental care?: Yes Was dental information given to patient?: Patient has dentist HPI Pain left leg , cannot walk HPI Details Patient is 83-year-old gentleman who has long history of lumbar radiculitis to left leg He was evaluated by pain management June of last year Note reviewed Patient says that he had done lot of activities recently He went to a museum as well after 3 days of activities requiring lot of walking He started having lumbar pain radiating to left leg. At 1 point he could not even lift his leg Patient took Excedrin which did help however he stopped because it in wanted to continue taking medication Today his exam is benign, he is having slight discomfort starting lower lumbar area radiating to left thigh posteriorly Plan: I have sent naproxen 500 mg to be taken with food b.i.d. for 7-10 days Was advised to cancel is activities for next 7-10 days until his pain is better. PFSH Medical History Painful arc syndrome of right shoulder Nocturia Lipid disorder Other specified hypothyroidism Prolactinoma Hypertension, essential Surgical History History of biopsy History of surgery Family History Father No problems noted. Mother Colon cancer Brother No problems noted. Brother No problems noted. Sister No problems noted. Social History Housing: House Alcohol intake: never Patient Tobacco Use Status: Former Tobacco user e-Cigarette/Vaping Use: Never Used service: Yes Current occupational status: retired Cognitive needs: No Hearing needs: No Vision needs: No Questionnaire Thrive Questionnaire Date Thrive assessed: 11/06/23 I am a: Patient What is your living situation today?: I have a steady place to live Within the past 12 months, did the food you bought not last and you didn't have the money to get more?: Never true Within the past 12 months, did you worry whether your food would run out before you got money to buy more?: Never true Do you have trouble paying for medicines?: No Do you have trouble getting transportation to medical appointments?: No Do you have trouble paying your heating and electricity bill?: No Do you have trouble taking care of your child, family member or friend?: No Do you have trouble with day-to-day activities such as bathing, preparing meals, shopping, managing finances, etc.?: No Are you currently unemployed and looking for a job?: No Are you interested in more education?: No Please select the resources that you would like help with: None Currently or been in a relationship where the following occur: No concerns reported THRIVE Score: 0 DIPAK-7 AMB Questionnaire DIPAK-7 Date DIPAK - 7 assessed: 11/06/23 Source: Developed by Drs. Judah Isabel, Willa Geiger, Farhad Malcolm and colleagues, with an educational maritza from [employer]. Review of Systems Const Denies chills and Denies fever(s) ENT Denies epistaxis and Denies nasal discharge Card Denies chest pain Resp Denies chest congestion, Denies cough and Denies hemoptysis GI Denies diarrhea and Denies nausea Skin/Breast Denies rash Neuro Reports no additional complaints Psych Reports no additional complaints Endo Reports no additional complaints Physical exam (Primary Care) Vital Signs: Last Vital Signs Pulse 58 02/06/24 11:28 BP 140/80 H 02/06/24 11:28 Pulse Ox 97 02/06/24 11:28 Oxygen Delivery Method Room Air 02/06/24 11:28 BMI result Body Mass Index 30.4 Tobacco/Smoking Status: Tobacco use Status Tobacco use date assessed 02/06/24 02/06/24 11:31 Patient Tobacco Use Status Former Tobacco user 02/06/24 11:27 e-Cigarette/Vaping Use Never Used 02/06/24 11:27 Thrive Assessment: Date of Thrive Assessment Date Thrive assessed 11/06/23 02/06/24 11:27 Currently or been in a relationship where the following occur: No concerns reported Const General: cooperative, comfortable and no acute distress Orientation/consciousness: patient oriented x3 HENMT Head: Yes normocephalic Eyes General: appearance normal, both eyes and all related structures Neck Neck: Yes supple Resp Effort & Inspection: normal respiratory effort, no cough and no stridor Cardio Rhythm: regular rhythm Heart sounds: S1 normal heart sound present and S2 normal heart sound present Back/Spine/Pelvis Other: No pain with lumbar spine percussion no pain over SI joint Skin General skin exam: turgor normal Neuro Other: Straight leg negative General: patient oriented x3, tone normal and moves all extremities Extrem Right lower extremity: no edema Left lower extremity: no edema Coding Level of Care Code Est Pt Level 3 (73522) Diagnoses Left lumbar radiculitis M54.16 Assessment & Plan Assessment & Plan (1) Left lumbar radiculitis: Code(s): M54.16 - Radiculopathy, lumbar region Category: Medical Plan Patient is 83-year-old gentleman who has long history of lumbar radiculitis to left leg He was evaluated by pain management June of last year Note reviewed Patient says that he had done lot of activities recently He went to a museum as well after 3 days of activities requiring lot of walking He started having lumbar pain radiating to left leg. At 1 point he could not even lift his leg Patient took Excedrin which did help however he stopped because it in wanted to continue taking medication Today his exam is benign, he is having slight discomfort starting lower lumbar area radiating to left thigh posteriorly Plan: I have sent naproxen 500 mg to be taken with food b.i.d. for 7-10 days Was advised to cancel is activities for next 7-10 days until his pain is better. Medications: New naproxen 500 mg PO BID 10 days 20 tabs 0RF pain
[2024-02-06 11:28] VITALS: BP 140/80; PULSE 58; O2SAT 97; BMI 30.4
== END 2024-02-06 15:47 | disposition home or self-care (01) ==
PROVIDERS: PCP Internal Medicine; Visit Provider Internal Medicine
DX: M54.16 Radiculopathy, lumbar region (principal)

== ENCOUNTER → 2024-02-06 11:21 | Outpatient (BNVA) | payer MEDICARE, OTHER, SELFPAY | PROVIDERS: PCP Internal Medicine; Visit Provider Internal Medicine | DX: M54.16 Radiculopathy, lumbar region (principal) | CPT/HCPCS: 99212 ==

== ENCOUNTER 2024-02-29 08:33 | Outpatient (REF) | payer MEDICARE, OTHER, SELFPAY ==
--- NOTE | ~2024-02-29 | XR_ITS ---
EXAMINATION: XR LEFT KNEE CLINICAL INFORMATION: Pain in left knee M25.562. COMPARISON: XR Knee bilateral 01/16/2013. TECHNIQUE: Two views of the left knee. FINDINGS: No acute fracture or dislocation. No significant joint space narrowing. Tiny patellofemoral compartment marginal osteophytes. No osseous erosion. Superior patellar enthesophyte. No joint effusion. XR/XR knee LT 2V IMPRESSION: Minimal patellofemoral arthrosis. Electronically signed by: Chris Mathias MD 03/21/2024 10:35 AM CHELSI DURAN
--- OUTSIDE RECORDS SUMMARY | 2024-03-05 06:02 | XMS_ITS | Encounter Summary ---
Author Name [facility] [place] [facility] [place] [facility] [place] Address [address] [place] [address] Care Team Providers Care Radiation Control Health Physicist Name Role Phone LEN MENDOZA Primary Care Provider Unavaila ble Insurance Providers: All historical and current Section Date Range: From patient's date of to the date document was created. This section includes the names of all active insurance providers for the patient. Insurance Provider Type of Coverage Plan Name Start of Policy Coverage End of Policy Coverage Group Number Member ID Insurance Provider's Telephone Number Policy Ybarra's Name Patient's Relationship to Policy Ybarra MEDICARE (WNR) MEDICARE (M) PART B Sep 23, 2014 PART B [id number] HARMONY MCCALL JR PATIENT MEDICARE (WNR) MEDICARE (M) PART A July 25, 2007 PART A [id number] HARMONY MCCALL JR PATIENT MEDICARE (WNR) MEDICARE (M) PART B July 25, 2007 PART B [id number] HARMONY MCCALL JR PATIENT MEDICARE (WNR) MEDICARE (M) PART A July 25, 2007 PART A [id number] HARMONY MCCALL JR PATIENT [facility] (OPT/PROF ) [facility] [place] * Jan 24, 2015 [id number] CAROLE MCCALL SPOUSE Selected Encounter This section includes the information on record at [place] for the Encounter. Date/Time Encounter Type Encounter Description Reason Provider Source Mar 05, 2023 11:30 AM SELF-MGMT EDUC & TRAIN 1 PT SLEEP MEDICINE ICD-10-CM G47.33 Obstructive sleep apnea (adult) (pediatric) SHELBI,CHRISTIANO E Encounter Template Text not used by [place] Assessments - Encounter Diagnoses This section includes the primary and secondary diagnoses documented for the Encounter. Date/Time Primary/Secondary Diagnosis Diagnosis Name Provider Source Mar 20, 2023 10:54 AM PRIMARY Obstructive sleep apnea (adult) (pediatric) SHELBI[facility]IANO [facility] Plan of Treatment: Future Appointments (+ 6 months) and Future Tests (+/- 45 days) The Plan of Treatment section includes future care activities for the patient from all [place] treatmentfacilities. This section includes future appointments and future orders which are active, pending or scheduled. Future Appointments This section includes appointments that were scheduled to occur 6 months from the date of the Encounter, up to a maximum of 20 appointments. The data comes from all [place] treatment facilities. Appointment Date/Time Appointment Type Appointme nt Facility Name Mar 08, 2023 11:00 AM [facility]ATORY - NONE [facility] Mar 15, 2023 11:00 AM [facility]ULATORY - NONE [facility] Mar 27, 2023 10:00 AM [facility]ONE [facility] Mar 29, 2023 11:00 AM AMBULATORY - NONE [facility] [facility] Apr 05, 2023 11:00 AM AMBULATORY - NONE [facility] Apr 10, 2023 10:00 AM [facility]ULATORY [facility] NONE [facility] [place] [facility] Apr 12, 2023 11:00 AM AMBULATORY - NONE [facility] [facility] Apr 19, 2023 11:00 AM AMBULATORY - NONE [facility] Apr 26, 2023 11:00 AM AMBULATORY - NONE [facility] [facility] May 03, 2023 11:00 AM AMBULATORY - NONE [facility] May 10, 2023 11:00 AM AMBULATORY - NONE [facility] May 15, 2023 10:00 AM [facility]ORY [facility]ONE [facility] [place] [facility] May 17, 2023 11:00 AM AMBULATORY - NONE [facility] [facility] May 24, 2023 11:00 AM AMBULATORY - NONE [facility] May 29, 2023 10:00 AM AM[facility]ULATORY - [facility]ONE [facility] [place] [facility] May 31, 2023 11:00 AM AMBULATORY - NONE [facility] Jun 07, 2023 11:00 AM AMBULATORY - NONE [facility] Jun 12, 2023 10:00 AM AM[facility]ULATORY - NONE [facility] [place] [facility] Jun 14, 2023 11:00 AM AMBULATORY - NONE [facility] Jun 21, 2023 11:00 AM AMBULATORY - NONE [facility] Social History: Smoking Status (Most current) and Tobacco Use (All prior to encounter date) This section includes the most current, and the historical, smoking and tobacco- related health factors from the [place] facility where the Encounter took place. Current Smoking Status This section includes the most current smoking, or tobacco-related health factor, from the [place] facility where the Encounter took place. Date/Time Current Smoking Status Comment Facil ity Jan 26, 2023 01:30 PM VA-TOBACCO FORMER USER [facility] [place] [facility] Tobacco Use History This section includes a history of the smoking, or tobacco-related health factors, that were collected on or before the date of the Encounter. The data comes from the [place] facility where the Encounter took place. Date/Time Smoking Status/Tobacco Use Comment F acility Jan 26, 2023 01:30 PM VA-TOBACCO QUIT 15 YRS OR MORE [facility] [place] [facility] Jan 27, 2022 11:00 AM VA-TOBACCO FORMER USER [facility] [place] [facility] Jan 27, 2022 11:00 AM VA-TOBACCO QUIT 15 YRS OR MORE [facility] [place] [facility] Sep 17, 2020 09:00 AM VA-TOBACCO FORMER USER [facility] [place] [facility] Sep 17, 2020 09:00 AM VA-TOBACCO QUIT 15 YRS OR MORE [facility] [place] [facility] Jun 04, 2019 02:57 PM VA-TOBACCO NEVER USED [facility] [place] [facility] Mar 14, 2018 11:23 AM VA-TOBACCO FORMER USER [facility] [place] [facility] Mar 14, 2018 11:23 AM VA-TOBACCO QUIT 15 YRS OR MORE [facility] Apr 04, 2017 12:30 PM QUIT TOBACCO USE > 7 YEARS AGO [facility] Apr 05, 2016 01:02 PM QUIT TOBACCO USE > 7 YEARS AGO quit in 1984 [facility] Encounter Notes: All associated encounter notes This section contains the clinical notes associated to the Encounter. Date/Time Encounter Note(s) Provider Source Mar 05, 2023 11:30 AM SLEEP MEDICINE CON SULT: LOCAL TITLE: SLEEP STUDY/CONSULT REPORT STANDARD TITLE: SLEEP MEDICINE CONSULT DATE OF NOTE: MAR 05, 2023@11:30 ENTRY DATE: MAR 05, 2023@14:05:29 AUTHOR: CHRISTIANO MARIO EXP COSIGNER: URGENCY: STATUS: COMPLETED Service Location [facility] [place] [address] Device Information DeviceName: [id number] DeviceSerialNumber: [id number] Education was provided about what sleep apnea is, how home sleep apnea testing is used to diagnose sleep apnea, and what treatment options are most commonly used to treat it. Patient attended an individual appointment for instruction on use of home sleep testing equipment. Device was given to patient with written instructions and contact information included. All questions were answered and the patient expressed understanding of the provided instructions and care plan. Other notes DIAGNOSIS-FATIGUE Restless sleeper To BR 3-4x/pm, a.m. fatigue, Occas. wakes gasping Minutes professional time spent providing care.: 30 min /johanny/ [employer] Signed: 03/05/2023 14:05 CHRISTIANO MARIO [facility]
--- OUTSIDE RECORDS SUMMARY | 2024-03-05 06:02 | XMS_ITS | Encounter Summary ---
Author Name [facility] [place] [facility] [place] Address [address] [place] [id number] Care Team Providers Care Utility Bill Collector Name Role Phone LEN MENDOZA Primary Care [...] PART B Sep 23, 2014 PART B [id number] [phone] HARMONY MCCALL JR PATIENT MEDICARE (WNR) MEDICARE (M) PART A July 25, 2007 PART A [id number] [phone] HARMONY MCCALL JR PATIENT MEDICARE (WNR) MEDICARE (M) PART B July 25, 2007 PART B [id number] HARMONY MCCALL JR PATIENT MEDICARE (WNR) MEDICARE (M) PART A July 25, 2007 PART A [id number] HARMONY MCCALL JR PATIENT [facility] MEDICAL EXPENSE (OPT/PROF ) [facility] [place] * Jan 24, 2015 [id number] CAROLE MCCALL SPOUSE Selected Encounter This section includes the information on record at [place] for the Encounter. Date/Time Encounter Type Encounter Description Reason Provider Source Mar 05, 2023 10:28 AM EXERCISE CLASS HEALTH/WELLBEING [facility] ICD-10-CM Z72.3 Lack of physical exercise JANIE LAZCANO [facility] Encounter Template Text not used by [place] Assessments - Encounter Diagnoses This section includes the primary and secondary diagnoses documented for the Encounter. Date/Time Primary/Secondary Diagnosis Diagnosis Name Provider Source Mar 05, 2023 11:03 AM PRIMARY Lack of physical exercise JANIE LAZCANO [facility] Plan of Treatment: Future Appointments (+ 6 months) and Future Tests (+/- 45 days) The Plan of Treatment section includes future care activities for the patient from all [place] treatmentfacilities. This section includes future appointments and future orders which are active, pending or scheduled. Future Appointments This section includes appointments that were scheduled to occur 6 months from the date of the Encounter, up to a maximum of 20 appointments. The data comes from all [place] treatment facilities. Appointment Date/Time Appointment Type Appointme nt Facility Name Mar 08, 2023 11:00 AM AMBULATORY - NONE [facility] Mar 15, 2023 11:00 AM [facility]ATORY - NONE [facility] Mar 27, 2023 10:00 AM [facility] Mar 29, 2023 11:00 AM [facility]ORY - NONE [facility] [facility] Apr 05, 2023 11:00 AM AMBULATORY - NONE [facility] [facility] Apr 10, 2023 10:00 AM AMBULATORY - NONE [facility] [place] [facility] Apr 12, 2023 11:00 AM AMBULATORY - NONE [facility] [facility] Apr 19, 2023 11:00 AM AMBULATORY - NONE [facility] [facility] Apr 26, 2023 11:00 AM AMBULATORY - NONE [facility] [facility] May 03, 2023 11:00 AM AMBULATORY - NONE [facility] [facility] May 10, 2023 11:00 AM AM[facility]ULATORY - NONE [facility] [facility] May 15, 2023 10:00 AM [facility] May 17, 2023 11:00 AM AM[facility]ATORY - NONE [facility] [facility] May 24, 2023 11:00 AM AMBULATORY - NONE [facility] [facility] May 29, 2023 10:00 AM AM[facility]ULATORY - NONE [facility] [place] [facility] May 31, 2023 11:00 AM AMBULATORY - NONE [facility] [facility] Jun 07, 2023 11:00 AM AMBULATORY - NONE [facility] [facility] Jun 12, 2023 10:00 AM AM[facility]ULATORY - NONE [facility] [place] [facility] Jun 14, 2023 11:00 AM AMBULATORY - NONE [facility] [facility] Jun 21, 2023 11:00 AM AMBULATORY - NONE [facility] Social History: Smoking Status (Most current) and Tobacco Use (All prior to encounter date) This section includes the most current, and the historical, smoking and tobacco- related health factors from the [place] facility where the Encounter took place. Current Smoking Status This section includes the most current smoking, or tobacco-related health factor, from the [place] facility where the Encounter took place. Date/Time Current Smoking Status Comment Facil ity Jan 26, 2023 01:30 PM VA-TOBACCO FORMER USER [facility] [facility] Tobacco Use History This section includes a history of the smoking, or tobacco-related health factors, that were collected on or before the date of the Encounter. The data comes from the [place] facility where the Encounter took place. Date/Time Smoking Status/Tobacco Use Comment F acility Jan 26, 2023 01:30 PM VA-TOBACCO QUIT 15 YRS OR MORE [facility] [place] [facility] Jan 27, 2022 11:00 AM VA-TOBACCO FORMER USER [facility] [place] [facility] Jan 27, 2022 11:00 AM VA-TOBACCO QUIT 15 YRS OR MORE [facility] [place] [facility] Sep 17, 2020 09:00 AM VA-TOBACCO FORMER USER [facility] [place] [facility] Sep 17, 2020 09:00 AM VA-TOBACCO QUIT 15 YRS OR MORE [facility] [place] [facility] Jun 04, 2019 02:57 PM VA-TOBACCO NEVER USED [facility] [place] [facility] Mar 14, 2018 11:23 AM VA-TOBACCO FORMER USER [facility] [place] [facility] Mar 14, 2018 11:23 AM VA-TOBACCO QUIT 15 YRS OR MORE [facility] Apr 04, 2017 12:30 PM QUIT TOBACCO USE > 7 YEARS AGO [facility] Apr 05, 2016 01:02 PM QUIT TOBACCO USE > 7 YEARS AGO quit in 1984 [facility] Encounter Notes: All associated encounter notes This section contains the clinical notes associated to the Encounter. Date/Time Encounter Note(s) Provider Source Mar 05, 2023 11:00 AM PHYSICAL MEDICINE REHAB NOTE: LOCAL TITLE: GEROFIT-SUPERVISED EXERCISE NOTE STANDARD TITLE: PHYSICAL MEDICINE REHAB NOTE DATE OF NOTE: MAR 05, 2023@11:00 ENTRY DATE: MAR 05, 2023@11:00:47 AUTHOR: JANIE LAZCANO EXP COSIGNER: URGENCY: STATUS: COMPLETED participated in the [facility] exercise program today. Activities were focused on progression of their individual exercise prescription (cardiorespiratory fitness training, strength training, etc.) and group based exercise sessions to include, but not limited to: flexibility training, balance training, functional circuit training, Curt Chi for arthritis, and other functional strength and neuromotor exercises. Exercise participation was supervised by [facility] staff and any questions/concerns were addressed with the patient. Modifications were made to programming as appropriate to suit Veterans individual needs, preferences, and whole health concerns. /es/ Janie Lazcano PT,DPT PHYSICAL THERAPIST Signed: 03/05/2023 11:08 JANIE LAZCANO [facility]
--- OUTSIDE RECORDS SUMMARY | 2024-03-05 06:02 | XMS_ITS | Continuity of Care Document ---
Author Name [facility] Organization [facility] Care Team Providers Care Toe Former Stitchdowns Name Role Phone [facility] Unavailable Unavailable Problems Combined list of problems from Department of Defense and Veterans Affairs facilities. It does not include entries that were removed or entered in error. Problem Status Onset Date Problem Type Date of Resolution Comments Source Abdominal aortic aneurysm Active Condition Feb 08, 2018 Entered By: Guzman MENDOZA Comment: FOLLOW UP UA due July 2018De2022 Entered By: Guzman MENDOZA Comment: non [place] U/S AAA AAA 4.7CM, follow up July 2023 [facility] Allergic rhinitis Active Condition [facility] Benign hypertension Active Condition [facility] COVID-19 Active Condition [facility] Exposure to potentially hazardous substance Active Condition [facility]astroesophageal reflux disease Active Condition [facility] Hypercholesterolemia Active Condition [facility] Hypothyroidism [facility] Iron deficiency anemia [facility] Osteoarthritis Active Condition [facility] Prolactinoma Active Condition [facility] Sleep apnea Active Condition [facility] Diagnosis: ICD-10-CM Z68.30 Body mass index [BMI] 30.0-30.9, adult Active Diagnosis [facility] Diagnosis: ICD-10-CM G47.33 Obstructive sleep apnea (adult) (pediatric) Active Diagnosis [facility] Diagnosis: ICD-10-CM E66.811 Obesity, class 1 Active Diagnosis [facility] Diagnosis: ICD-10-CM G47.30 Sleep apnea, unspecified Active Diagnosis [facility] Diagnosis: ICD-10-CM E66.09 Other obesity due to excess calories Active Diagnosis [facility] Diagnosis: ICD-10-CM Z71.3 Dietary counseling and surveillance Active Diagnosis [facility] Diagnosis: ICD-10-CM Z72.3 Lack of physical exercise Active Diagnosis [facility] Diagnosis: ICD-10-CM Z73.3 Stress, not elsewhere classified Active Diagnosis [facility] Diagnosis: ICD-10-CM Z68.29 Body mass index [BMI] 29.0-29.9, adult Active Diagnosis [facility] Diagnosis: ICD-10-CM Z46.0 Encounter for fit/adjst of spectacles and contact lenses Active Diagnosis [facility] Diagnosis: ICD-10-CM L71.8 Other rosacea Active Diagnosis [facility] Diagnosis: ICD-10-CM E66.3 Overweight Active Diagnosis [facility] Diagnosis: ICD-10-CM K21.9 Gastro-esophageal reflux disease without esophagitis Active Diagnosis [facility] Diagnosis: ICD-10-CM Z02.89 Encounter for other administrative examinations Active Diagnosis [facility] Diagnosis: ICD-10-CM M17.9 Osteoarthritis of knee, unspecified Active Diagnosis [facility] Medications Combined list of outpatient medications from Department of Defense and Veterans Affairs facilities.Medications provided include 1) outpatient medications from the last 15 months, and 2) patient-reported medications. Medication Details Route Status Patient Instructions Prescription Expires Prescription Number Last Dispense Date Ordering Provider Order Date Order Qty Source ASPIRIN 81MG TAB,CHEWABL E CHEW ONE TABLET BY MOUTH DAILY ORAL ACTIVE BRITT,2016 [facility] BROMOCRIPTI NE MESYLATE 0.8MG TAB TAKE THREE TABLETS BY MOUTH ONCE DAILY ORAL ACTIVE ,2016 [facility] CALCIUM 200MG (CA CITRATE-950 MG) TAB TAKE THREE TABLETS BY MOUTH DAILY ORAL ACTIVE ,2016 [facility] CARBOXYMETH YLCELLULOSE NA 0.5% SOLN,OPH INSTILL 1 DROP INTO EACH EYE FOUR TIMES A DAY FOR DRY EYE OPHTHA LMIC ACTIVE 09/25/2024 [id number] Cecily GEE ICHELE 2023 45 [facility] CETIRIZINE HCL 10MG TAB TAKE ONE TABLET BY MOUTH DAILY ORAL ACTIVE BRITT, [facility] CHOLECALCIF FORTINO 25MCG (1,000UNIT) TAB TAKE ONE TABLET BY MOUTH DAILY ORAL ACTIVE BRITT, [facility] LEVOTHYROXI NE NA 125MCG TAB (SYNTHROID) TAKE ONE TABLET BY MOUTH EVERY MORNING 30 MINUTES BEFORE BREAKFAS T ORAL ACTIVE LEN MENDOZA 2023 [facility] LISINOPRIL 5MG TAB TAKE ONE TABLET BY MOUTH ONCE DAILY TO CONTROL BLOOD PRESSURE ORAL 01/27/2024 [id number] LEN MENDOZA 2022 90 [facility] [place] POTASSIUM 100MG TAB TAKE ONE TABLET BY MOUTH ONCE DAILY ORAL ACTIVE LEN MENDOZA 2017 [facility] METOPROLOL SUCCINATE 50MG TAB,SA TAKE ONE TABLET BY MOUTH ONCE DAILY ORAL ACTIVE LEN MENDOZA 2022 [facility] OTHER CAP/TAB TAKE 5 MG BY MOUTH DAILY ORAL ACTIVE BALWINDER, [facility] 2016 [facility] TAMSULOSIN HCL 0.4MG CAP TAKE 1 CAPSULE BY MOUTH ONCE DAILY ORAL ACTIVE LEN MENDOZA 2019 [facility] IELD Immunizations Combined list of available immunizations from the Department of Defense and Veterans Affairs facilities. Immunization Series Date Given Administered By Site Reaction Lot Number CVX Code Drug Package Collector Status Comments Source INFLUENZA, HIGH-DOSE, TRIVALENT, PF 2023 SHE REID SSA H RIGHT DELTO ID [id number] 135 complet ed [facility] INFLUENZA, HIGH-DOSE, QUADRIVALENT 2022 BIENVENIDO BANKS LEFT DELTO ID [id number] 197 complet ed [facility] COVID-19 (MODERNA), MRNA, LNP-S, PF, 100 MCG/0.5ML DOSE OR 50 MCG/0.25ML DOSE 3 2021 207 complet ed MOD; [id number]; 2 [facility] COVID-19 (MODERNA), MRNA, LNP-S, PF, 100 MCG OR 50 MCG DOSE 3 2020 207 complet ed MOD; [id number]; 2 [facility] INFLUENZA VACCINE, QUADRIVALENT, ADJUVANTED 2020 205 complet ed [facility] COVID-19 (MODERNA), MRNA, LNP-S, PF, 100 MCG/0.5 ML DOSE 2 2020 207 complet ed MOD; [id number]; 1 [facility] COVID-19 (MODERNA), MRNA, LNP-S, PF, 100 MCG/0.5 ML DOSE 1 2020 207 complet ed MOD; [id number]; 1 [facility] INFLUENZA, INJECTABLE, QUADRIVALENT, PRESERVATIVE FREE 2019 150 complet ed [facility] ZOSTER RECOMBINANT 2 2019 187 complet ed [facility] INFLUENZA, INJECTABLE, QUADRIVALENT, PRESERVATIVE FREE 2018 150 complet ed Site: Right Deltoid [facility] PNEUMOCOCCAL POLYSACCHARID E PPV23 2018 33 complet ed [facility] INFLUENZA, SEASONAL, INJECTABLE 2017 141 complet ed Site: Left Deltoid [facility] INFLUENZA, SEASONAL, INJECTABLE 2017 141 complet ed Site: Left Deltoid [facility] [place] PNEUMOCOCCAL CONJUGATE PCV 13 2017 133 complet ed [facility] DTAP 2016 20 complet ed Site: Left Deltoid [facility] FLU,3 YRS (HISTORICAL) 2016 88 complet ed Site: Left Deltoid [facility] Results Combined list of recent chemistry, hematology and other laboratory results from Department of Defense and Veterans Affairs, ranging from 15 months to all on record, depending upon the facility. Order Name Results Value Reference Range Date Interpretation Specimen Comments Source BASIC METABOLIC PANEL (non-fast ing) UREA NITROGEN [MASS/VOLUM E] IN SERUM OR PLASMA 19 mg/dL 7 - 25 07/18 Specimen Type: SERUM No comment entered. Ordering Provider: ORACIO MENDOZA Report Released Date/Time: Jul 12, 2023 10:12 AM Reporting Lab: [facility] [address] Performing Lab: [facility] [place] [facility] [address] [facility] [address] [facility] BASIC METABOLIC PANEL (non-fast ing) GLUCOSE [MASS/VOLUM E] IN SERUM OR PLASMA 95 mg/dL 65 - 100 07/18 Specimen Type: SERUM No comment entered. Ordering Provider: ORACIO MENDOZA Report Released Date/Time: Jul 12, 2023 10:12 AM Reporting Lab: [facility] [address] Performing Lab: [facility] [place] [address] [address] [facility] [place] [facility] BASIC METABOLIC PANEL (non-fast ing) SODIUM [MOLES/VOLU ME] IN SERUM OR PLASMA 142 mmol/L 135 - 145 07/18 Specimen Type: SERUM No comment entered. Ordering Provider: ORACIO MENDOZA Report Released Date/Time: Jul 12, 2023 10:12 AM Reporting Lab: [facility] [address] Performing Lab: [facility] [place] [facility] [address] [facility] [address] [facility] BASIC METABOLIC PANEL (non-fast ing) POTASSIUM [MOLES/VOLU ME] IN SERUM OR PLASMA 4.7 mmol/L 3.5 - 5.0 07/18 Specimen Type: SERUM No comment entered. Ordering Provider: ORACIO MENDOZA Report Released Date/Time: Jul 12, 2023 10:12 AM Reporting Lab: [facility]TRN [facility] [address] [facility] [address] Performing Lab: [facility]ITAL[facility]N [facility] [address] [facility] [address] [facility] BASIC METABOLIC PANEL (non-fast ing) CHLORIDE [MOLES/VOLU ME] IN SERUM OR PLASMA 107 mmol/L 100 - 110 07/18 Specimen Type: SERUM No comment entered. Ordering Provider: ORACIO MENDOZA Report Released Date/Time: Jul 12, 2023 10:12 AM Reporting Lab: [facility] [address] [facility] [address] Performing Lab: [facility] [address] [facility] [address] [facility] BASIC METABOLIC PANEL (non-fast ing) CARBON DIOXIDE, TOTAL [MOLES/VOLU ME] IN SERUM OR PLASMA 28 meq/L 20 - 30 07/18 Specimen Type: SERUM No comment entered. Ordering Provider: ORACIO MENDOZA Report Released Date/Time: Jul 12, 2023 10:12 AM Reporting Lab: [facility]TRN [facility] [address] [facility] [address] Performing Lab: [facility]N [facility] [address] [facility] [address] [facility] BASIC METABOLIC PANEL (non-fast ing) CREATININE [MASS/VOLUM E] IN SERUM OR PLASMA 0.90 mg/dL 0.50 - 1.40 07/18 Specimen Type: SERUM No comment entered. Ordering Provider: ORACIO MENDOZA Report Released Date/Time: Jul 12, 2023 10:12 AM Reporting Lab: [facility] [place] [facility] [address] [facility] [address] Performing Lab: [facility] [place] [facility] [address] [facility] [address] [facility] [facility] BASIC METABOLIC PANEL (non-fast ing) GLOMERULAR FILTRATION RATE/1.73 SQ M.PREDICTED [VOLUME RATE/AREA] IN SERUM, PLASMA OR BLOOD BY CREATININE- BASED FORMULA (CKD-EPI 2020) 86 mL/min 60 07/18 Specimen Type: SERUM No comment entered. Ordering Provider: ORACIO MENDOZA Report Released Date/Time: Jul 12, 2023 10:12 AM Reporting Lab: [facility] [place] [address] [address] Performing Lab: [facility] [place] [address] [address] [facility] [facility] CBC LEUKOCYTES [#/VOLUME] IN BLOOD BY AUTOMATED COUNT 7.33 10*3/u L 4.50 - 11.00 07/18 Specimen Type: BLOOD No comment entered. Ordering Provider: ORACIO MENDOZA Report Released Date/Time: Jul 12, 2023 10:12 AM Reporting Lab: [facility] [place] [address] [address] Performing Lab: [facility] [place] [address] [address] [facility] [facility] CBC ERYTHROCYTE S [#/VOLUME] IN BLOOD BY AUTOMATED COUNT 4.94 10*6/u L 4.23 - 5.66 07/18 Specimen Type: BLOOD No comment entered. Ordering Provider: ORACIO MENDOZA Report Released Date/Time: Jul 12, 2023 10:12 AM Reporting Lab: [facility] [place] [address] [address] Performing Lab: [facility] [place] [address] [place] [address] [facility] [place] [facility] CBC HEMOGLOBIN [MASS/VOLUM E] IN BLOOD 15.1 g/dL 12.8 - 17 07/18 Specimen Type: BLOOD No comment entered. Ordering Provider: ORACIO MENDOZA Report Released Date/Time: Jul 12, 2023 10:12 AM Reporting Lab: [facility] [place] [facility] [address] [facility] [address] Performing Lab: [facility] [place] [facility] [address] [facility] [address] [facility] [facility] CBC HEMATOCRIT [VOLUME FRACTION] OF BLOOD BY AUTOMATED COUNT 46.2 39.2 - 50.4 07/18 Specimen Type: BLOOD No comment entered. Ordering Provider: ORACIO MENDOZA Report Released Date/Time: Jul 12, 2023 10:12 AM Reporting Lab: [facility] [place] [address] [address] Performing Lab: [facility] [place] [address] [address] [place] [facility] [place] [facility] CBC MCV [ENTITIC VOLUME] BY AUTOMATED COUNT 93.5 fL 82 - 99 07/18 Specimen Type: BLOOD No comment entered. Ordering Provider: ORACIO MENDOZA Report Released Date/Time: Jul 12, 2023 10:12 AM Reporting Lab: [facility] [place] [address] [address] Performing Lab: [facility] [place] [address] [address] [facility] [place] [facility] CBC MCHC [MASS/VOLUM E] BY AUTOMATED COUNT 32.7 g/dL 30.8 - 35.1 07/18 Specimen Type: BLOOD No comment entered. Ordering Provider: ORACIO MENDOZA Report Released Date/Time: Jul 12, 2023 10:12 AM Reporting Lab: [facility] [place] [address] [address] Performing Lab: [facility] [facility] [address] [facility] [address] [facility] CBC PLATELETS [#/VOLUME] IN BLOOD BY AUTOMATED COUNT 181 10*3/u L 140 - 360 07/18 Specimen Type: BLOOD No comment entered. Ordering Provider: ORACIO MENDOZA Report Released Date/Time: Jul 12, 2023 10:12 AM Reporting Lab: [facility] [address] [facility] [address] Performing Lab: [facility] [address] [facility] [address] [facility] [place] [facility] CBC ERYTHROCYTE DISTRIBUTIO N WIDTH [RATIO] BY AUTOMATED COUNT 13.2 12.0 - 16.0 07/18 Specimen Type: BLOOD No comment entered. Ordering Provider: ORACIO MENDOZA Report Released Date/Time: Jul 12, 2023 10:12 AM Reporting Lab: [facility] [address] [facility] [address] Performing Lab: [facility] [address] [facility] [address] [facility] [place] [facility] CBC MCH [ENTITIC MASS] BY AUTOMATED COUNT 30.6 pg 26.2 - 32.6 07/18 Specimen Type: BLOOD No comment entered. Ordering Provider: ORACIO MENDOZA Report Released Date/Time: Jul 12, 2023 10:12 AM Reporting Lab: [facility] [address] [facility] [address] Performing Lab: [facility] [address] [facility] [address] [facility] [place] [facility] LIPID PANEL, NON FASTING CHOLESTEROL [MASS/VOLUM E] IN SERUM OR PLASMA 119 mg/dL 07/18 Specimen Type: SERUM No comment entered. Ordering Provider: ORACIO MENDOZA Report Released Date/Time: Jul 12, 2023 10:12 AM Reporting Lab: [facility] [address] [facility] [address] Performing Lab: [facility]TRN [facility] [address] [facility] [address] [facility]ITAL[facility]N [facility] LIPID PANEL, NON FASTING TRIGLYCERID E [MASS/VOLUM E] IN SERUM OR PLASMA 48 mg/dL 0 - 150 07/18 Specimen Type: SERUM No comment entered. Ordering Provider: ORACIO MENDOZA Report Released Date/Time: Jul 12, 2023 10:12 AM Reporting Lab: [facility] TRN [facility] [address] [facility] [address] Performing Lab: [facility]ITAL[facility]AB [facility]N [facility] [address] [facility] [address] [facility] LIPID PANEL, NON FASTING CHOLESTEROL IN LDL [MASS/VOLUM E] IN SERUM OR PLASMA BY CALCULATION 63 mg/dL 0 - 129 07/18 Specimen Type: SERUM No comment entered. Ordering Provider: ORACIO MENDOZA Report Released Date/Time: Jul 12, 2023 10:12 AM Reporting Lab: [facility]N [facility] [address] [facility] [address] Performing Lab: [facility]N [facility] [address] [facility] [address] [facility] LIPID PANEL, NON FASTING CHOLESTEROL .TOTAL/CHOL ESTEROL IN HDL [MASS RATIO] IN SERUM OR PLASMA 2.6 07/18 Specimen Type: SERUM No comment entered. Ordering Provider: ORACIO MENDOZA Report Released Date/Time: Jul 12, 2023 10:12 AM Reporting Lab: [facility]ENTERTRN [facility] [address] [facility] [address] Performing Lab: [facility]RN[facility]ENTERTRN [facility] [address] [facility] [address] [facility] LIPID PANEL, NON FASTING CHOLESTEROL IN HDL [MASS/VOLUM E] IN SERUM OR PLASMA 46 mg/dL 40 - 60 07/18 Specimen Type: SERUM No comment entered. Ordering Provider: ORACIO MENDOZA Report Released Date/Time: Jul 12, 2023 10:12 AM Reporting Lab: [facility] [place] [facility] [address] [facility] [address] Performing Lab: [facility] [place] [facility] [address] [facility] [address] [facility] [place] LIVER FUNCTION PROTEIN [MASS/VOLUM E] IN SERUM OR PLASMA 6.7 g/dL 6.0 - 8.3 07/18 Specimen Type: SERUM No comment entered. Ordering Provider: ORACIO MENDOZA Report Released Date/Time: Jul 12, 2023 10:12 AM Reporting Lab: [facility] [place] [facility] [address] [facility] [address] Performing Lab: [facility] [place] [facility] [address] [facility] [address] [place] [facility] [place] [facility] LIVER FUNCTION ALBUMIN [MASS/VOLUM E] IN SERUM OR PLASMA 3.8 g/dL 3.5 - 5.0 07/18 Specimen Type: SERUM No comment entered. Ordering Provider: ORACIO MENDOZA Report Released Date/Time: Jul 12, 2023 10:12 AM Reporting Lab: [facility] [place] [facility] [address] [facility] [address] Performing Lab: [facility] [place] [facility] [address] [facility] [address] [place] [facility] [place] [facility] LIVER FUNCTION ALKALINE PHOSPHATASE [ENZYMATIC ACTIVITY/VO LUME] IN SERUM OR PLASMA 55 U/L 40 - 150 07/18 Specimen Type: SERUM No comment entered. Ordering Provider: ORACIO MENDOZA Report Released Date/Time: Jul 12, 2023 10:12 AM Reporting Lab: [facility] [place] [facility] [address] [facility] [address] Performing Lab: [facility] [place] [facility] [address] [facility] [address] [facility] [place] [facility] LIVER FUNCTION ASPARTATE AMINOTRANSF ERASE [ENZYMATIC ACTIVITY/VO LUME] IN SERUM OR PLASMA 26 U/L 5 - 34 07/18 Specimen Type: SERUM No comment entered. Ordering Provider: ORACIO MENDOZA Report Released Date/Time: Jul 12, 2023 10:12 AM Reporting Lab: [facility] [place] [facility] [address] [facility] [address] Performing Lab: [facility] [place] [facility] [address] [facility] [address] [facility] [place] [facility] LIVER FUNCTION ALANINE AMINOTRANSF ERASE [ENZYMATIC ACTIVITY/VO LUME] IN SERUM OR PLASMA 26 U/L 07/18 Specimen Type: SERUM No comment entered. Ordering Provider: ORACIO MENDOZA Report Released Date/Time: Jul 12, 2023 10:12 AM Reporting Lab: [facility] [place] [facility] [address] [facility] [address] Performing Lab: [facility] [place] [address] [address] [place] [facility] [place] [facility] LIVER FUNCTION BILIRUBIN.T OTAL [MASS/VOLUM E] IN SERUM OR PLASMA 0.6 mg/dL 0.2 - 1.2 07/18 Specimen Type: SERUM No comment entered. Ordering Provider: ORACIO MENDOZA Report Released Date/Time: Jul 12, 2023 10:12 AM Reporting Lab: [facility] [place] [address] [address] Performing Lab: [facility] [place] [facility] [address] [facility] [address] [facility] [place] [facility] TSH THYROTROPIN [UNITS/VOLU ME] IN SERUM OR PLASMA 0.67 u[IU]/ mL 0.35 - 5.00 07/18 Specimen Type: SERUM No comment entered. Ordering Provider: ORACIO MENDOZA Report Released Date/Time: Jul 12, 2023 10:12 AM Reporting Lab: [facility] [place] [address] [address] Performing Lab: [facility] [place] [address] [address] [facility] BASIC METABOLIC PANEL (fasting) UREA NITROGEN [MASS/VOLUM E] IN SERUM OR PLASMA 17 mg/dL 7 - 25 01/24 Specimen Type: SERUM No comment entered. Ordering Provider: ORACIO MENDOZA Report Released Date/Time: Jan 15, 2023 04:07 PM Reporting Lab: [facility]ENTERTRN [facility] [address] Performing Lab: [facility]ITALRL W[facility]N [facility] [address] [facility]ITALRUAB [facility]N [facility] BASIC METABOLIC PANEL (fasting) GLUCOSE [MASS/VOLUM E] IN SERUM OR PLASMA 94 mg/dL 65 - 100 01/24 Specimen Type: SERUM No comment entered. Ordering Provider: ORACIO MENDOZA Report Released Date/Time: Jan 15, 2023 04:07 PM Reporting Lab: [facility]RNORT[facility]ENTERTRN [facility] [address] Performing Lab: [facility] [address] [facility] BASIC METABOLIC PANEL (fasting) SODIUM [MOLES/VOLU ME] IN SERUM OR PLASMA 141 mmol/L 135 - 145 01/24 Specimen Type: SERUM No comment entered. Ordering Provider: ORACIO MENDOZA Report Released Date/Time: Jan 15, 2023 04:07 PM Reporting Lab: [facility] TRN [id number] [address] Performing Lab: [facility] [address] [address] [facility]ITALRUAB [facility]ITALN [facility] BASIC METABOLIC PANEL (fasting) POTASSIUM [MOLES/VOLU ME] IN SERUM OR PLASMA 3.8 mmol/L 3.5 - 5.0 01/24 Specimen Type: SERUM No comment entered. Ordering Provider: ORACIO MENDOZA Report Released Date/Time: Jan 15, 2023 04:07 PM Reporting Lab: [facility] TRN [id number] [address] Performing Lab: [facility] [address] [facility] [address] [facility] [facility] BASIC METABOLIC PANEL (fasting) CHLORIDE [MOLES/VOLU ME] IN SERUM OR PLASMA 107 mmol/L 100 - 110 01/24 Specimen Type: SERUM No comment entered. Ordering Provider: ORACIO MENDOZA Report Released Date/Time: Jan 15, 2023 04:07 PM Reporting Lab: [facility] [place] [facility] [address] [facility] [address] Performing Lab: [facility] [address] [facility] [address] [facility] BASIC METABOLIC PANEL (fasting) CARBON DIOXIDE, TOTAL [MOLES/VOLU ME] IN SERUM OR PLASMA 27 meq/L 20 - 30 01/24 Specimen Type: SERUM No comment entered. Ordering Provider: ORACIO MENDOZA Report Released Date/Time: Jan 15, 2023 04:07 PM Reporting Lab: [facility] [address] Performing Lab: [facility] [address] [facility] [address] [facility] BASIC METABOLIC PANEL (fasting) CREATININE [MASS/VOLUM E] IN SERUM OR PLASMA 0.90 mg/dL 0.50 - 1.40 01/24 Specimen Type: SERUM No comment entered. Ordering Provider: ORACIO MENDOZA Report Released Date/Time: Jan 15, 2023 04:07 PM Reporting Lab: [facility] [place] [facility] [address] [facility] [address] Performing Lab: [place] [facility] [facility] [address] [facility] BASIC METABOLIC PANEL (fasting) GLOMERULAR FILTRATION RATE/1.73 SQ M.PREDICTED [VOLUME RATE/AREA] IN SERUM, PLASMA OR BLOOD BY CREATININE- BASED FORMULA (CKD-EPI 2020) 86 mL/min 60 01/24 Specimen Type: SERUM No comment entered. Ordering Provider: ORACIO MENDOZA Report Released Date/Time: Jan 15, 2023 04:07 PM Reporting Lab: [facility] [place] [facility] [address] [facility] [address] Performing Lab: [facility] [place] [facility] [address] [facility] [address] [facility] [place] [facility] CBC LEUKOCYTES [#/VOLUME] IN BLOOD BY AUTOMATED COUNT 6.50 10*3/u L 4.50 - 11.00 01/24 Specimen Type: BLOOD No comment entered. Ordering Provider: ORACIO MENDOZA Report Released Date/Time: Jan 15, 2023 04:07 PM Reporting Lab: [facility] [place] [facility] [address] [facility] [address] Performing Lab: [facility] [place] [address] [address] [place] [facility] [facility] CBC ERYTHROCYTE S [#/VOLUME] IN BLOOD BY AUTOMATED COUNT 4.73 10*6/u L 4.23 - 5.66 01/24 Specimen Type: BLOOD No comment entered. Ordering Provider: ORACIO MENDOZA Report Released Date/Time: Jan 15, 2023 04:07 PM Reporting Lab: [facility] [place] [address] [address] Performing Lab: [facility] [place] [address] [address] [facility] [place] [facility] CBC HEMOGLOBIN [MASS/VOLUM E] IN BLOOD 14.7 g/dL 12.8 - 17 01/24 Specimen Type: BLOOD No comment entered. Ordering Provider: ORACIO MENDOZA Report Released Date/Time: Jan 15, 2023 04:07 PM Reporting Lab: [facility] [place] [address] [address] Performing Lab: [facility] [place] [address] [address] [facility] [place] [facility] CBC HEMATOCRIT [VOLUME FRACTION] OF BLOOD BY AUTOMATED COUNT 44.2 39.2 - 50.4 01/24 Specimen Type: BLOOD No comment entered. Ordering Provider: ORACIO MENDOZA Report Released Date/Time: Jan 15, 2023 04:07 PM Reporting Lab: [place] [facility] [address] [address] Performing Lab: [place] [facility] [place] [facility] [address] [facility] [address] [place] [facility] [facility] [facility] CBC MCV [ENTITIC VOLUME] BY AUTOMATED COUNT 93.4 fL 82 - 99 01/24 Specimen Type: BLOOD No comment entered. Ordering Provider: ORACIO MENDOZA Report Released Date/Time: Jan 15, 2023 04:07 PM Reporting Lab: [facility] [place] [address] [address] Performing Lab: [place] [facility] [address] [address] [facility] [place] [facility] CBC MCHC [MASS/VOLUM E] BY AUTOMATED COUNT 33.3 g/dL 30.8 - 35.1 01/24 Specimen Type: BLOOD No comment entered. Ordering Provider: ORACIO MENDOZA Report Released Date/Time: Jan 15, 2023 04:07 PM Reporting Lab: [facility] [place] [address] [address] Performing Lab: [place] [facility] [address] [address] [facility] [place] [facility] CBC PLATELETS [#/VOLUME] IN BLOOD BY AUTOMATED COUNT 194 10*3/u L 140 - 360 01/24 Specimen Type: BLOOD No comment entered. Ordering Provider: ORACIO MENDOZA Report Released Date/Time: Jan 15, 2023 04:07 PM Reporting Lab: [facility] [place] [address] [address] Performing Lab: [place] [facility] [address] [address] [facility] [facility] CBC ERYTHROCYTE DISTRIBUTIO N WIDTH [RATIO] BY AUTOMATED COUNT 13.0 12.0 - 16.0 01/24 Specimen Type: BLOOD No comment entered. Ordering Provider: ORACIO MENDOZA Report Released Date/Time: Jan 15, 2023 04:07 PM Reporting Lab: [facility] [place] [facility] [address] [facility] [address] Performing Lab: [facility] [facility] [address] [facility] [address] [facility] [place] [facility] CBC MCH [ENTITIC MASS] BY AUTOMATED COUNT 31.1 pg 26.2 - 32.6 01/24 Specimen Type: BLOOD No comment entered. Ordering Provider: ORACIO MENDOZA Report Released Date/Time: Jan 15, 2023 04:07 PM Reporting Lab: [facility] [place] [facility] [address] [facility] [address] Performing Lab: [facility] [facility] [address] [facility] [address] [place] [facility] [facility] THYROID T4 FREE(FT4) THYROXINE (T4) FREE [MASS/VOLUM E] IN SERUM OR PLASMA 1.30 ng/dL 0.6 - 1.6 01/24 Specimen Type: SERUM No comment entered. Ordering Provider: ORACIO MENDOZA Report Released Date/Time: Jan 15, 2023 04:07 PM Reporting Lab: [facility] [place] [facility] [address] [facility] [address] Performing Lab: [facility] [place] [facility] [address] [facility] [address] [facility] [place] [facility] TSH THYROTROPIN [UNITS/VOLU ME] IN SERUM OR PLASMA 0.36 u[IU]/ mL 0.35 - 5.00 01/24 Specimen Type: SERUM No comment entered. Ordering Provider: ORACIO MENDOZA Report Released Date/Time: Jan 15, 2023 04:07 PM Reporting Lab: [facility] [place] [facility] [address] [facility] [address] Performing Lab: [facility] [address] [facility] [address] [facility] VITAMIN D (25-OH) 25-HYDROXYV ITAMIN D3 [MASS/VOLUM E] IN SERUM OR PLASMA 46 ng/mL 20 - 50 01/24 Specimen Type: SERUM No comment entered. Ordering Provider: ORACIO MENDOZA Report Released Date/Time: Jan 15, 2023 04:07 PM Reporting Lab: [facility] [address] [facility] [address] Performing Lab: [facility] [address] [facility] [address] [facility] Vital Signs Combined list of inpatient and outpatient Vital Signs from Department of Defense and Veterans Affairs, ranging from 12 months to all on record, depending upon the facility. Vital Sign Value Date Comments Source WEIGHT 214.6 02/28/2024 11:00:00 [place] BMI 33kg/m2 02/28/2024 11:00:00 [place] WEIGHT 215.3 02/14/2024 12:02:24 [place] BMI 33kg/m2 02/14/2024 12:02:24 [place] WEIGHT 212.1 02/07/2024 11:41:04 [place] BMI 32kg/m2 02/07/2024 11:41:04 [place] WEIGHT 211.3 01/31/2024 14:49:37 [place] BMI 32kg/m2 01/31/2024 14:49:37 [place] WEIGHT 212 01/24/2024 12:45:59 [place] BMI 32kg/m2 01/24/2024 12:45:59 [place] Encounters Combined list of: 1) Encounters from Department of Veterans Affairs facilities going back up to thelast 18 months. 2) Encounters from the Department of Defense facilities going back up to 280 months. Location Location Details Encounter Type Encounter Number Reason For Visit Attending Provider ADM Date DC Date Status Disposition Source [facility] EXERCISE CLASS [id number] 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
CRISTAL LAZCANO 09/04 [facility] [place] EXERCISE CLASS [id number] 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
Cecily ONEILL SHANICE 09/06 [facility] [place] [facility] GROUP BEHAVE COUNS 2-10 [id number] Diagnos is: ICD-10- CM E66.09 Other obesity due to excess calorie s
EVAN KRAMER 09/07 [place] [facility] EXERCISE CLASS [id number] 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
Cecily ONEILL SHANICE 09/13 [facility] [place] [facility] WEIGHT MGMT CLASS [id number] Diagnos is: ICD-10- CM Z68.29 Body mass index [BMI] 29.0-29 .9, adult<b r/> GORDON PATHAK 09/14 [place] [facility] EXERCISE CLASS [id number] 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
CRISTAL LAZCANO LLY M 09/15 [facility] [place] [facility] [place] [facility] EXERCISE CLASS [id number] 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
CRISTAL LAZCANO LLY M 09/18 [facility] [place] [facility] [place] [facility] EXERCISE CLASS [id number] 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
Cecily ONEILL 09/20 [facility] [place] [facility] [place] GROUP BEHAVE COUNS 2-10 [id number] Diagnos is: ICD-10- CM E66.09 Other obesity due to excess calorie s
EVAN KRAMER P 09/21 [place] [facility] [place] [facility] EXERCISE CLASS [id number] 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
ILIANA UNDERWOOD 09/21 [facility] [place] [facility] [place] [facility] EXERCISE CLASS [id number] 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
Cecily ONEILL SHANICE 09/22 [facility] [place] [facility] [place] [facility] EXERCISE CLASS [id number] 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
CRISTAL LAZCANO LLCourtney M 09/25 [facility] [place] EXERCISE CLASS [id number] 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
CRISTAL LAZCANO M 10/02 [facility] [place] Out[facility] Encounter [id number] 10/03 [facility] [place] [place] En[facility] [id number] Guzman MENDOZA 10/03 [facility] [place] [facility] LD GROUP BEHAVE COUNS 2-10 [id number] Diagnos is: ICD-10- CM E66.09 Other obesity due to excess calorie s
EVAN KRAMER 10/05 [place] [facility] EXERCISE CLASS [id number] 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
CRISTAL LAZCANO M 10/06 [facility] [place] [facility] LD WEIGHT MGMT CLASS [id number] Diagnos is: ICD-10- CM E66.3 Overwei ght<br/ > GORDON PATHAK 10/12 [place] [facility] EXERCISE CLASS [id number] 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
CRISTAL LAZCANO M 10/16 [facility] [place] [place] EXERCISE CLASS [id number] 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
Cecily ONEILL 10/18 [facility] [place] [facility] [place] WEIGHT MGMT CLASS [id number] Diagnos is: ICD-10- CM Z68.29 Body mass index [BMI] 29.0-29 .9, adult<b r/> GORDON PATHAK 10/19 [place] [facility] EXERCISE CLASS [id number] 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
LARISA COATES 10/20 [facility] [place] [facility] [place] EXERCISE CLASS [id number] 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
LARISA COATES 10/23 [facility] [place] [facility] [place] [facility] NUTRITION CLASS [id number] Diagnos is: ICD-10- CM Z71.3 Dietary career development counselor ing and surveil nancy<b r/> RAKESH GRACIA 10/24 [facility] [place] [facility] [place] [facility] UNLISTED PHYSCL MED/[place] PX [id number] 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
LARISA COATES 10/24 [facility] [place] [facility] [place] EXERCISE CLASS [id number] 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
Cecily ONEILL 10/25 [facility] [place] [facility] WEIGHT MGMT CLASS [id number] Diagnos is: ICD-10- CM Z68.29 Body mass index [BMI] 29.0-29 .9, adult<b r/> GORDON PATHAK 10/26 [facility] [place] [facility] EXERCISE CLASS [id number] 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
LARISA COATES 10/27 [facility] [place] EXERCISE CLASS [id number] 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
Cecily ONEILL 10/30 [facility] Encounter [id number] 10/31 [facility] [place] EXERCISE CLASS [id number] 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
Cecily ONEILL 11/01 [facility] [place] EXERCISE CLASS [id number] 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
ILIANA UNDERWOOD 11/03 [facility] [place] EXERCISE CLASS [id number] 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
CRISTAL LAZCANO 11/06 [facility] [place] [facility] NUTRITION CLASS [id number] Diagnos is: ICD-10- CM Z71.3 Dietary career development counselor ing and surveil nancy<b r/> RAKESH GRACIA 11/07 [facility] [place] [facility] LD GROUP BEHAVE COUNS 2-10 [id number] Diagnos is: ICD-10- CM E66.09 Other obesity due to excess calorie s
EVAN KRAMER P 11/09 [facility] [place] [facility] EXERCISE CLASS [id number] 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
Cecily ONEILL 11/15 [facility] [place] [facility] WEIGHT MGMT CLASS [id number] Diagnos is: ICD-10- CM Z68.29 Body mass index [BMI] 29.0-29 .9, adult<b r/> GORDON PATHAK 11/16 [facility] [place] [facility] [place] EXERCISE CLASS [id number] 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
LARISA COATES 11/17 [facility] [place] [facility] EXERCISE CLASS [id number] 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
CRISTAL LAZCANO 11/20 [facility] [place] [facility] EXERCISE CLASS [id number] 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
Cecily ONEILL SHANICE 11/22 [facility] [place] [facility] LD GROUP BEHAVE COUNS 2-10 [id number] Diagnos is: ICD-10- CM E66.3 Overwei ght<br/ > EVAN KRAMER P 11/23 [place] [facility] [place] [facility] EXERCISE CLASS [id number] 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
ILIANA UNDERWOOD 11/23 [facility] [place] [facility] [place] [facility] NUTRITION CLASS [id number] Diagnos is: ICD-10- CM Z71.3 Dietary career development counselor ing and surveil nancy<b r/> RAKESH GRACIA 11/28 [facility] [place] [facility] [place] [facility] EXERCISE CLASS [id number] 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
CRISTAL LAZCANO 11/29 [facility] [place] [facility] Outpatient Encounter [id number] 11/29 [facility] [place] [facility] WEIGHT MGMT CLASS [id number] Diagnos is: ICD-10- CM Z68.29 Body mass index [BMI] 29.0-29 .9, adult<b r/> GORDON PATHAK 11/30 [facility] BEHAVE COUNS 2-10 [id number] Diagnos is: ICD-10- CM E66.3 Overwei ght<br/ > EVAN KRAMER P 12/07 [place] [facility] EXERCISE CLASS [id number] 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
Cecily ONEILL 12/13 [facility] [place] [facility] [place] WEIGHT MGMT CLASS [id number] Diagnos is: ICD-10- CM Z68.29 Body mass index [BMI] 29.0-29 .9, adult<b r/> [facility]AK [facility] EX[facility] CLASS [id number] 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
CHALLET,KE LLY M 12/15 [facility] EXERCISE CLASS [id number] 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
CHALLET,KE LLY M 12/18 [facility] EXERCISE CLASS [id number] 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
LARISA COATES B 12/20 [facility] [place] [facility] [place] WEIGHT MGMT CLASS [id number] Diagnos is: ICD-10- CM Z68.29 Body mass index [BMI] 29.0-29 .9, adult<b r/> GORDON PATHAK 12/21 [facility] [place] [facility] EXERCISE CLASS [id number] 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
CHALLET,KE LLY M 12/25 [facility] [place] Out[facility]counter [id number] 12/28 [facility] [place] [facility] [place] WEIGHT MGMT CLASS [id number] Diagnos is: ICD-10- CM Z68.29 Body mass index [BMI] 29.0-29 .9, adult<b r/> GORDON PATHAK 01/04 [facility] BEHAVE COUNS 2-10 [id number] Diagnos is: ICD-10- CM E66.3 Overwei ght<br/ > NIAEVAN CH CHAEL P 01/11 [facility] [place] [facility] EXERCISE CLASS [id number] 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
CRISTAL LAZCANO LLY M 01/12 [facility] EXERCISE CLASS [id number] 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
CRISTAL LAZCANO LLCourtney M 01/15 [facility] EXERCISE CLASS [id number] 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
Cecily ONEILL 01/17 [facility] LD GROUP BEHAVE COUNS 2-10 [id number] Diagnos is: ICD-10- CM E66.3 Overwei ght<br/ > NIAEVAN SORIANO CHAEL P 01/18 [facility] EXERCISE CLASS [id number] 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
ILIANA UNDERWOOD 01/18 [facility] Outpatient Encounter [id number] 01/18 [facility] EXERCISE CLASS [id number] 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
LARISA COATES 01/19 [facility] EXERCISE CLASS [id number] 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
Cecily ONEILL 01/24 [facility] Outpatient Encounter [id number] 01/25 [facility] [place] WEIGHT MGMT CLASS [id number] Diagnos is: ICD-10- CM Z68.29 Body mass index [BMI] 29.0-29 .9, adult<b r/> GORDON PATHAK Hellen 01/25 [place] [facility] EXERCISE CLASS [id number] 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
CRISTAL LAZCANO 01/26 [facility] OFFICE O/P EST MOD 30-39 MIN [id number] Diagnos is: ICD-10- CM M17.9 Osteoar thritis of knee, unspeci fied
Guzman MENDOZA 01/26 [facility] EXERCISE CLASS [id number] 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
CRISTAL LAZCANO M 01/29 [facility] PT EDUCATION NOC GROUP [id number] Diagnos is: ICD-10- CM Z71.3 Dietary career development counselor ing and surveil nancy<b r/> RAKESH GRACIA CHENTE 01/30 [facility] LD GROUP BEHAVE COUNS 2-10 [id number] [id number] Diagnos is: ICD-10- CM E66.09 Other obesity due to excess calorie s
NIAEVAN JOSH P 02/01 [facility] EXERCISE CLASS [id number] 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
CRISTAL LAZCANO M 02/05 [facility] EXERCISE CLASS [id number] [id number] 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
Cecily ONEILL 02/07 [facility] WEIGHT MGMT CLASS [id number] Diagnos is: ICD-10- CM Z68.29 Body mass index [BMI] 29.0-29 .9, adult<b r/> GORDON PATHAK 02[facility] EXERCISE CLASS [id number] 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
CRISTAL LAZCANO M 02/09 [facility] EXERCISE CLASS [id number] 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
CRISTAL LAZCANO M 02/12 [facility] SELF-MGMT EDUC/TRAIN 2-4 [place] [address]-4.63 [id number] Diagnos is: ICD-10- CM Z71.3 Dietary career development counselor ing and surveil nancy<b r/> RAKESH GRACIA 02/13 [facility] EXERCISE CLASS [id number] [id number] 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
Cecily ONEILL 02/14 [facility] EXERCISE CLASS 39295-9.63 [id number] 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
CRISTAL LAZCANO 02/19 [facility] EXERCISE CLASS [id number] [id number] 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
Cecily ONEILL 02/21 [facility] Outpatient Encounter [id number] [id number] Diagnos is: ICD-10- CM Z02.89 Encount er for other adminis trative examina tions<b r/> ZANDER SANCHEZ A 02/22 [facility] [place] WEIGHT MGMT CLASS 75222-1.63 [id number] Diagnos is: ICD-10- CM Z68.29 Body mass index [BMI] 29.0-29 .9, adult<b r/> GORDON PATHAK A 02/22 [place] [facility] EXERCISE CLASS 88746-2.63 [id number] 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
LARISA COATES 02/23 [facility] EXERCISE CLASS 91622-6.63 [id number] 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
CRISTAL LAZCANO LLY M 02/26 [facility] EXERCISE CLASS 09151-6.63 [id number] 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
LARISA COATES 02/27 [facility] EXERCISE CLASS 91343-6.63 [id number] 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
Cecily ONEILL 02/28 [facility] WEIGHT MGMT CLASS 08658-4.63 [id number] Diagnos is: ICD-10- CM Z68.29 Body mass index [BMI] 29.0-29 .9, adult<b r/> GORDON PATHAK 03/01 [place] [facility] Outpatient Encounter [id number] [id number] 03/05 [facility] EXERCISE CLASS 99439-4.63 [id number] 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
CRISTAL LAZCANO LLY M 03/05 [facility] Out[facility] Encounter [id number] [id number] 03/05 [facility] SELF-MGMT EDUC & TRAIN 1 [place] [address]-763 [id number] Diagnos is: ICD-10- CM G47.33 Obstruc tive sleep apnea (adult) ([facility])
SHELBIMATTEO Montoya AMPARO 03/05 [facility] EXERCISE CLASS 52299-2.63 [id number] 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
ILIANA UNDERWOOD 03/07 [facility] LD GROUP BEHAVE COUNS 2-10 18736-0.63 [id number] Diagnos is: ICD-10- CM E66.09 Other obesity due to excess calorie s
EVAN KRAMER P 03/08 [place] [facility] EXERCISE CLASS 66883-2.63 [id number] 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
LARISA COATES 03/09 [facility] EXERCISE CLASS 47284-0.63 [id number] 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
Cecily ONEILL 03/14 [facility] LD GROUP BEHAVE COUNS 2-10 56667-3.63 [id number] Diagnos is: ICD-10- CM E66.3 Overwei ght<br/ > EVAN KRAMER P 03/15 [place] [facility] SLEEP STUDY UNATT&RESP EFFT 37618-7.63 [id number] Diagnos is: ICD-10- CM G47.33 Obstruc tive sleep apnea (adult) ([facility])
SHELBIMATTEO AMPARO 03/16 [facility] EXERCISE CLASS 48212-4.63 [id number] 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
Cecily ONEILL SHANICE 03/21 [facility] EXERCISE CLASS [id number] [id number] 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
LARISA COATES 03/23 [facility] PT EDUCATION NOC GROUP 50282-2.63 [id number] Diagnos is: ICD-10- CM Z71.3 Dietary career development counselor ing and surveil nancy<b r/> RAKESH GRACIA 03/27 [facility] EXERCISE CLASS 03638-5.63 [id number] 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
Cecily ONEILL 03/28 [facility] SLEEP STUDY UNATT&RESP EFFT 69193-6.68 [id number] Diagnos is: ICD-10- CM G47.33 Obstruc tive sleep apnea (adult) ([facility] [place])
CURIOSO-UY VILMA 03/28 [facility] [place] LD GROUP BEHAVE COUNS 2-10 51839-4.63 [id number] Diagnos is: ICD-10- CM E66.3 Overwei ght<br/ > EVAN KRAMER P 03/29 [place] [facility] EXERCISE CLASS 12526-4.63 [id number] 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
Cecily ONEILL SHANICE 04/04 [facility] LD GROUP BEHAVE COUNS 2-10 46106-8.63 [id number] Diagnos is: ICD-10- CM E66.09 Other obesity due to excess calorie s
EVAN KRAMER P 04/05 [place] [facility] LD GROUP BEHAVE COUNS 2-10 72289-7.63 [id number] Diagnos is: ICD-10- CM E66.3 Overwei ght<br/ > EVAN KRAMER JOSH P 04/05 [facility] PT EDUCATION NOC GROUP [id number] [id number] Diagnos is: ICD-10- CM Z71.3 Dietary career development counselor ing and surveil nancy<b r/> RAKESH GRACIA 04/10 [facility] WEIGHT MGMT CLASS 85078-9.63 [id number] Diagnos is: ICD-10- CM Z68.29 Body mass index [BMI] 29.0-29 .9, adult<b r/> GORDON PATHAK 04/12 [facility] [place] [facility] EXERCISE CLASS 56781-2.63 [id number] 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
Cecily ONEILL SHANICE 04/18 [facility] WEIGHT MGMT CLASS 48322-3.63 [id number] Diagnos is: ICD-10- CM Z68.29 Body mass index [BMI] 29.0-29 .9, adult<b r/> GORDON PATHAK 04[facility]19 [facility] EXERCISE CLASS 24310-3.63 [id number] 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
ILIANA UNDERWOOD GEORGE 04/20 [facility] EXERCISE CLASS 31714-0.63 [id number] 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
Cecily ONEILL SHANICE 04/25 [facility] [place] WEIGHT MGMT CLASS 02142-0.63 [id number] Diagnos is: ICD-10- CM Z68.29 Body mass index [BMI] 29.0-29 .9, adult<b r/> GORDON PATHAK 04/26 [facility] [place] [facility] EXERCISE CLASS [id number] [id number] 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
CRISTAL LAZCANO M 04/27 [facility] EXERCISE CLASS [id number] [id number] 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
CRISTAL LAZCANO M 04/30 [facility] EXERCISE CLASS 30728-0.63 [id number] 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
Cecily ONEILL SHANICE 05/02 [facility] [place] WEIGHT MGMT CLASS 30346-7.63 [id number] Diagnos is: ICD-10- CM Z68.29 Body mass index [BMI] 29.0-29 .9, adult<b r/> PATHAKGORDON 05/03 [place] [facility] EXERCISE CLASS [id number] [id number] 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
LARISA COATES B 05/04 [facility] EXERCISE CLASS 58582-4.63 [id number] 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
CRISTAL LAZCANO M 05/07 [facility] EXERCISE CLASS 27091-7.63 [id number] 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
Cecily ONEILLIN 05/09 [facility] LD GROUP BEHAVE COUNS 2-10 37183-7.63 [id number] Diagnos is: ICD-10- CM E66.09 Other obesity due to excess calorie s
EVAN KRAMER P 05/10 [place] [facility] EXERCISE CLASS 86166-4.63 [id number] 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
NENOCRISTAL M 05/11 [facility] PT EDUCATION NOC GROUP 54721-7.63 [id number] Diagnos is: ICD-10- CM Z71.3 Dietary career development counselor ing and surveil nancy<b r/> RAKESH GRACIA 05/15 [facility] EXERCISE CLASS [id number] [id number] 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
Cecily ONEILL SHANICE 05/16 [facility] WEIGHT MGMT CLASS 26672-6.63 [id number].[id number] Diagnos is: ICD-10- CM Z68.29 Body mass index [BMI] 29.0-29 .9, adult<b r/> GORDON PATHAK 05/17 [facility] [place] [facility] EXERCISE CLASS 60908-7.63 [id number] 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
CRISTAL LAZCANO 05/21 [facility] LD GROUP BEHAVE COUNS 2-10 [id number] [id number] Diagnos is: ICD-10- CM E66.09 Other obesity due to excess calorie s
NIAEVAN CH [facility]OBBY [facility] PT EDUCATION NOC GROUP 94018-7.63 [id number] Diagnos is: ICD-10- CM Z71.3 Dietary career development counselor ing and surveil nancy<b r/> RAKESH GRACIA CHENTE 05/28 [facility] GROUP BEHAVE COUNS 2-10 83532-5.63 [id number] Diagnos is: ICD-10- CM E66.09 Other obesity due to excess calorie s
NIAEVAN CH CHABOBBY P 05/30 [facility] LD GROUP BEHAVE COUNS 2-10 22637-2.63 [id number] Diagnos is: ICD-10- CM E66.09 Other obesity due to excess calorie s
NIAEVAN CH CHABOBBY P 06/06 [facility] [place] [facility] PT EDUCATION NOC GROUP 27521-4.63 [id number] Diagnos is: ICD-10- CM Z71.3 Dietary career development counselor ing and surveil nancy<b r/> RAKESH GRACIA CHENTE 06/11 [facility] WEIGHT MGMT CLASS 20065-8.63 [id number] Diagnos is: ICD-10- CM E66.3 Overwei ght<br/ > GORDON PATHAK 06/13 [facility] WEIGHT MGMT CLASS 67196-2.63 [id number] Diagnos is: ICD-10- CM Z68.29 Body mass index [BMI] 29.0-29 .9, adult<b r/> GORDON PATHAK 06/20 [facility] PT EDUCATION NOC GROUP 04122-6.63 [id number] Diagnos is: ICD-10- CM 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 LD GROUP BEHAVE COUNS 2-10 20125-1.63 [id number].[id number] Diagnos is: ICD-10- CM E66.3 Overwei ght<br/ > EVAN KRAMER 07/04 [facility] [place] WEIGHT MGMT CLASS 66092-0.63 [id number].[id number] Diagnos is: ICD-10- CM Z68.29 Body mass index [BMI] 29.0-29 .9, adult<b r/> GORDON PATHAK 07/18 [facility] OFFICE O/P EST MOD 30 MIN 03888-5.63 [id number] Diagnos is: ICD-10- CM K21.9 Gastro- esophag eal reflux disease without esophag itis
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
Cecily ONEILL 08/21 [facility] LD WEIGHT MGMT CLASS 44015-3.63 [id number].[id number] Diagnos is: ICD-10- CM Z68.29 Body mass index [BMI] 29.0-29 .9, adult<b r/> GORDON PATHAK A 08/22 [place] [facility] EXERCISE CLASS 50183-3.63 [id number] 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
LARISA COATES 08/23 [facility] EXERCISE CLASS [id number] [id number] 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
Cecily ONEILL SHANICE 08/26 [facility] 49863-6.63 [id number] Diagnos is: ICD-10- CM Z68.29 Body mass index [BMI] 29.0-29 .9, adult<b r/> PATHAKGORDON Hellen 08[facility]29 [facility] EXERCISE CLASS [id number] [id number] 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
CHALLET,KE LLY M 08/30 [facility] EXERCISE CLASS 87421-7.63 [id number] 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
Cecily ONEILL SHANICE 09/04 [facility] WEIGHT MGMT CLASS 69549-1.63 [id number].[id number] Diagnos is: ICD-10- CM E66.09 Other obesity due to excess calorie s
LAWSON GORDON Hellen 09/05 [facility] EXERCISE CLASS 83255-1.63 [id number] 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
CHALLET,KE LLY M 09/06 [facility] [place] [place] [facility] LD GROUP BEHAVE COUNS 2-10 03483-0.63 [id number].[id number] Diagnos is: ICD-10- CM E66.09 Other obesity due to excess calorie s
EVAN KRAMER P 09/12 [facility] EXERCISE CLASS 63233-9.63 [id number] 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
LARISA COATES 09/20 [facility] EXERCISE CLASS 69287-3.63 [id number] 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
CRISTAL LAZCANO 09/23 [facility] COMPRE OPH EXAM EST PT /> 91693-8.63 [id number] Diagnos is: ICD-10- CM L71.8 Other rosacea
EVAN GEE OSMAN 09/24 [facility] FIT SPECTACLES MONOFOCAL 63679-5.63 [id number] Diagnos is: ICD-10- CM Z46.0 Encount er for fit/adj st of spectac les and contact lenses< br/> EVAN GEE OSMAN 09/24 [facility] EXERCISE CLASS 01072-2.63 [id number] 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
Cecily ONEILL 09/25 [facility] EXERCISE CLASS 51051-7.63 [id number] 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
CHALLET,KE LLY M 09/30 [facility] [place] [place] [facility] LD GROUP BEHAVE COUNS 2-10 26217-4.63 [id number] Diagnos is: ICD-10- CM E66.09 Other obesity due to excess calorie s
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
CHALLETKE LLY M 10/14 [facility] EXERCISE CLASS 35575-5.63 [id number] 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
Cecily ONEILL 10/16 [facility] [place] GROUP BEHAVE COUNS 2-10 98249-5.63 [id number] Diagnos is: ICD-10- CM E66.09 Other obesity due to excess calorie s
NIAEVAN CH CHAEL P 10/17 [place] [facility] EXERCISE CLASS 18023-5.63 [id number] 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
CHALLET,KE LLY M 10/18 [facility] [place] EXERCISE CLASS 41723-8.63 1. 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
CRISTAL LAZCANO 10/21 [facility] Outpatient Encounter [id number] [id number] Guzman MENDOZA 10/22 [facility] POS AIRWAY PRESSURE FILTER 00308-3.63 1. Diagnos is: ICD-10- CM G47.30 Sleep apnea, unspeci fied
KATHARINA PUCKETT E P 10/22 [facility] EXERCISE CLASS 23754-0.63 1. 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
Cecily ONEILL 10/23 [facility] [place] HLTH BHV IVNTJ GRP EA ADDL 79287-4.63 [id number] Diagnos is: ICD-10- CM Z68.30 Body mass index [BMI] 30.0-30 .9, adult<b r/> GORDON PATHAK 10/24 [place] [facility] UNLISTED PHYSCL MED/[place] PX [id number] [id number] 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
LARISA COATES 10/25 [facility] EXERCISE CLASS 77929-4.63 1. 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
CRISTAL LAZCANO M 10/25 [facility] Outpatient Encounter [id number] [id number] 10/25 [facility] Outpatient Encounter [id number] [id number] 10/25 [facility] EXERCISE CLASS 29617-9.63 [id number] 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
NENOKE LLY M 10/28 [facility] COLLJ & INTERPJ DATA EA 30 D 35917-4.63 [id number] Diagnos is: ICD-10- CM G47.30 Sleep apnea, unspeci fied
ST AMDAVID,KATHARINA E P 10/29 [facility] EXERCISE CLASS [id number] [id number] 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
Cecily ONEILL 10/30 [facility] [place] [place] [facility] BHV IVNTJ GRP EA ADDL 91548-9.63 [id number] Diagnos is: ICD-10- CM Z68.30 Body mass index [BMI] 30.0-30 .9, adult<b r/> LAWSON GORDON A 10/31 [place] [facility] EXERCISE CLASS 93627-5.63 [id number] 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
CRISTAL LAZCANO LLY M 11/01 [facility] EXERCISE CLASS 64196-9.63 [id number] 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
CRISTAL LAZCANO LLY M 11/04 [facility] [place] EXERCISE CLASS 73231-7.63 [id number] 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
MAI,M SHANICE 11/06 [facility] [place] GROUP BEHAVE COUNS 2-10 35624-8.63 [id number] Diagnos is: ICD-10- CM E66.09 Other obesity due to excess calorie s
EVAN KRAMER P 11[facility]07 [facility] [place] [facility] EXERCISE CLASS 92630-5.63 1. 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
MAI,M SHANICE 11/13 [facility] [place] HLTH BHV IVNTJ GRP EA ADDL 58395-3.63 [id number] Diagnos is: ICD-10- CM Z68.30 Body mass index [BMI] 30.0-30 .9, adult<b r/> GORDON PATHAK A 11[facility]14 [facility] EXERCISE CLASS 19671-5.63 [id number] 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
MAI,M SHANICE 11/15 [facility] [place] EXERCISE CLASS [id number] [id number] 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
CRISTAL LAZCANO LLY M 11/18 [facility] [place] EXERCISE CLASS 83362-4.63 1. 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
MAICecily SHANICE 11/20 [facility] [place] GROUP BEHAVE COUNS 2-10 15942-8.63 [id number] Diagnos is: ICD-10- CM E66.09 Other obesity due to excess calorie s
EVAN KRAMER P 11/21 [place] [facility] EXERCISE CLASS 23260-4.63 1. 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
Cecily ONEILL SHANICE 11/27 [facility] [place] HLTH BHV IVNTJ GRP EA ADDL 10729-4.63 [id number] Diagnos is: ICD-10- CM Z68.30 Body mass index [BMI] 30.0-30 .9, adult<b r/> [place]ON PATHAK [place] [facility] EXERCISE CLASS 99274-7.63 1. 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
LARISA COATES 11/29 [facility] [place] EXERCISE CLASS 79029-9.63 1. 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
CRISTAL LAZCANO M 12/02 [facility] [place] [facility] COLLJ & INTERPJ DATA EA 30 D 22575-9.63 [id number] Diagnos is: ICD-10- CM G47.30 Sleep apnea, unspeci fied
ST AMANT,KATHARINA E P 12/02 [facility] EXERCISE CLASS 76899-1.63 1. 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
CRISTAL LAZCANO M 12/04 [facility] [place] [facility] [place] [facility] BEHAVE COUNS 2-10 43352-1.63 [id number] Diagnos is: ICD-10- CM E66.09 Other obesity due to excess calorie s
NIAEVAN MORENO P 12/05 [place] [facility] PT EDUCATION NOC GROUP 29550-0.63 1. 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
CRISTAL LAZCANO M 12/16 [facility] [place] [facility] ADDL [id number] Diagnos is: ICD-10- CM Z68.30 Body mass index [BMI] 30.0-30 .9, adult<b r/> GORDON PATHAK 12/19 [facility] [place] [facility] PT EDUCATION NOC GROUP [id number] 1. 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
EVAN KRAMER CHAEL P 12/26 [facility]ELD [facility] LD ON LICENSE OF [facility] IVNTJ GRP EA ADDL [id number] Diagnos is: ICD-10- CM Z68.30 Body mass index [BMI] 30.0-30 .9, adult<b r/> GORDON PATHAK 01/02 [facility] [place] [facility] [place] [facility] PT EDUCATION NOC GROUP [id number] 1. 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 38 Diagnos is: ICD-10- CM E66.09 Other obesity due to excess calorie s
EVAN KRAMER CHAEL P 01[facility]09 [facility] IVNTJ GRP EA ADDL [id number] Diagnos is: ICD-10- CM Z68.30 Body mass index [BMI] 30.0-30 .9, adult<b r/> GORDON PATHAK Hellen 01/16 [facility] [place] [facility] OFFICE O/P EST MOD 30 MIN [id number] 1. Diagnos is: ICD-10- CM G47.30 Sleep apnea, unspeci fied
Guzman MENDOZA 01/20 [facility] [place] [facility] OFFICE O/P EST MOD 30 MIN [id number] Diagnos is: ICD-10- CM G47.33 Obstruc tive sleep apnea (adult) (pediat amparo)
NUNO,ARELIS 01/21 [place] [facility] [place] [facility] Outpatient Encounter [id number] Diagnos is: ICD-10- CM G47.33 Obstruc tive sleep apnea (adult) (pediat amparo)
NUNO,ARELIS 01/21 [place] [facility] [place] [facility] LD GROUP BEHAVE COUNS 2-10 [id number] 1BY. 47 Diagnos is: ICD-10- CM E66.811 Obesity , class 1
NIA,MI CHAEL P 01/23 [facility] LD GROUP BEHAVE COUNS 2-10 [id number] Diagnos is: ICD-10- CM E66.811 Obesity , class 1
NIA,MI CHAEL P 01/30 [facility] IVNTJ GRP EA ADDL [id number] Diagnos is: ICD-10- CM Z68.30 Body mass index [BMI] 30.0-30 .9, adult<b r/> GORDON PATHAK 02/06 [facility]P EA ADDL [id number] Diagnos is: ICD-10- CM Z68.30 Body mass index [BMI] 30.0-30 .9, adult<b r/> GORDON PATHAK 02[facility]13 [facility] MOD 30 MIN [id number] Diagnos is: ICD-10- CM G47.33 Obstruc tive sleep apnea (adult) (pediat amparo)
NUNO,ARELIS 02/25 [facility] [place] [facility] Outpatient Encounter [id number] Diagnos is: ICD-10- CM G47.33 Obstruc tive sleep apnea (adult) (pediat amparo)
ARELIS NUNO 02/25 [place] [facility] [place] [facility] IVNTJ GRP EA ADDL [id number] Diagnos is: ICD-10- CM Z68.30 Body mass index [BMI] 30.0-30 .9, adult<b r/> GORDON PATHAK 02/27 [facility] IELD Social History Combined list of available smoking, tobacco, and other social history from Department of Defense and Veterans Affairs facilities. Social History Type Response Date Comment Sourc e Tobacco smoking status NHIS VA-TOBACCO FORMER USER 01/21/2024 [place] [facility] [facility] of [facility] 01/21/2024 [place] [facility] [place] [facility] History of tobacco use [place]-TOBACCO FORMER USER 01/26/2023 [place] [facility] History of tobacco use TX-TOBACCO FORMER USER 01/27/2022 [place] [facility] [place] [facility] History of tobacco use VA-TOBACCO FORMER USER 09/17/2020 [place] [facility] [place] [facility] History of tobacco use TX-TOBACCO NEVER USED 06/04/2019 [place] [facility] [place] [facility] History of tobacco use TX-TOBACCO FORMER USER 03/14/2018 [place] [facility] [facility] History of tobacco use QUIT TOBACCO USE > 7 YEARS AGO 04/04/2017 [place] [facility] History of tobacco use QUIT TOBACCO USE > 7 YEARS AGO 04/05/2016 quit in 1984 [place] [facility] Plan of Care List of future care activities from Department of Veterans Affairs facilities. Additional future care activities may be listed in the Assessment and Plan section. Date/Time Care Activity Care Activity Detail Facili ty 07/21/2024 AMBULATORY - MEDICINE AMBULATORY - MEDICI NE [place] [facility]
--- OUTSIDE RECORDS SUMMARY | 2024-03-05 06:02 | XMS_ITS | Encounter Summary ---
Author Name [facility] [place] [facility] [place] Address [address] [place] [address] Care Team Providers Care Business Operations Coordinator Name Role Phone LUCAS STRATTON Primary Care Provider Unavaila ble Insurance Providers: [...] PART B Sep 23, 2014 PART B [id number] HARMONY MCCALL JR PATIENT MEDICARE (WNR) MEDICARE (M) PART A July 25, 2007 PART A [id number] [phone] HARMONY MCCALL JR PATIENT MEDICARE (WNR) MEDICARE (M) PART B July 25, 2007 PART B [id number] [phone] HARMONY MCCALL JR PATIENT MEDICARE (WNR) MEDICARE (M) PART A July 25, 2007 PART A [id number] HARMONY MCCALL JR PATIENT [facility] MEDICAL EXPENSE (OPT/PROF ) [facility] * Jan 24, 2015 [id number] CAROLE MCCALL SPOUSE Selected Encounter This section includes the information on record at [place] for the Encounter. Date/Time Encounter Type Encounter Description Reason Pro vider Source Mar 05, 2023 10:51 AM Outpatient Encounter PRIMARY CARE/MEDICINE IHE Encounter Template Text not used by [place] Plan of Treatment: Future Appointments (+ 6 months) and Future Tests (+/- 45 days) The Plan of Treatment section includes future care activities for the patient from all [place] treatmentfacilities. This section includes future appointments and future orders which are active, pending or scheduled. Future Appointments This section includes appointments that were scheduled to occur 6 months from the date of the Encounter, up to a maximum of 20 appointments. The data comes from all [place] treatment facilities. Appointment Date/Time Appointment Type Appointme nt Facility Name Mar 08, 2023 11:00 AM [facility]ORY [facility] [place] Mar 15, 2023 11:00 AM [facility]ATORY - N[place] Mar 27, 2023 10:00 AM AMBULATORY - NONE [facility] [place] [facility] Mar 29, 2023 11:00 AM [facility]ATORY [place] Apr 05, 2023 11:00 AM [facility]ATORY - NONE [place] Apr 10, 2023 10:00 AM AMBULATORY - NONE [facility] [place] [facility] Apr 12, 2023 11:00 AM AM[facility]ATORY - NONE [place] Apr 19, 2023 11:00 AM [facility]ATORY - NONE [place] Apr 26, 2023 11:00 AM [facility]ATORY - NONE [place] May 03, 2023 11:00 AM [facility]ATORY - NONE [place] May 10, 2023 11:00 AM [facility]ATORY - NONE [place] May 15, 2023 10:00 AM AMBULATORY - NONE [facility] [place] [facility] May 17, 2023 11:00 AM [facility]ATORY - NONE [place] May 24, 2023 11:00 AM AM[facility]ATORY - NONE [place] May 29, 2023 10:00 AM AMBULATORY - NONE [facility] [place] [facility] May 31, 2023 11:00 AM AM[facility]ATORY - NONE [place] Jun 07, 2023 11:00 AM [facility]ATORY - NONE [place] Jun 12, 2023 10:00 AM AMBULATORY - NONE [facility] [place] [facility] Jun 14, 2023 11:00 AM [facility]ATORY - NONE [place] Jun 21, 2023 11:00 AM [facility]ORY - [place]ONE [place] Social History: Smoking Status (Most current) and Tobacco Use (All prior to encounter date) This section includes the most current, and the historical, smoking and tobacco- related health factors from the [place] facility where the Encounter took place. Current Smoking Status This section includes the most current smoking, or tobacco-related health factor, from the [place] facility where the Encounter took place. Date/Time Current Smoking Status Comment Facil ity Jan 26, 2023 01:30 PM VA-TOBACCO FORMER USER [facility] [place] [facility] Tobacco Use History This section includes a history of the smoking, or tobacco-related health factors, that were collected on or before the date of the Encounter. The data comes from the [place] facility where the Encounter took place. Date/Time Smoking Status/Tobacco Use Comment F acility Jan 26, 2023 01:30 PM VA-TOBACCO QUIT 15 YRS OR MORE [facility] [place] [facility] Jan 27, 2022 11:00 AM VA-TOBACCO FORMER USER [facility] [place] [facility] Jan 27, 2022 11:00 AM VA-TOBACCO QUIT 15 YRS OR MORE [facility] [place] [facility] Sep 17, 2020 09:00 AM VA-TOBACCO FORMER USER [facility] [place] [facility] Sep 17, 2020 09:00 AM VA-TOBACCO QUIT 15 YRS OR MORE [facility] [place] [facility] Jun 04, 2019 02:57 PM VA-TOBACCO NEVER USED [facility] [place] [facility] Mar 14, 2018 11:23 AM VA-TOBACCO FORMER USER [facility] [place] [facility] Mar 14, 2018 11:23 AM VA-TOBACCO QUIT 15 YRS OR MORE [facility] [place] [facility] Apr 04, 2017 12:30 PM QUIT TOBACCO USE > 7 YEARS AGO [facility] [place] [facility] Apr 05, 2016 01:02 PM QUIT TOBACCO USE > 7 YEARS AGO quit in 1984 [place] [facility] [facility] Encounter Notes: All associated encounter notes This section contains the clinical notes associated to the Encounter. Date/Time Encounter Note(s) Provider Source Mar 05, 2023 10:51 AM ADMINISTRATIVE NOTE: LOCAL TITLE: FAX/MAIL RECEIVED STANDARD TITLE: ADMINISTRATIVE NOTE DATE OF NOTE: MAR 05, 2023@10:51 ENTRY DATE: MAR 05, 2023@10:51:51 AUTHOR: KAREN GARCIA EXP COSIGNER: URGENCY: STATUS: COMPLETED Document Received On: Feb Document Type: Lab Results/ULTRASOUND REPORT FOR REVIEW Date of Service: Feb Facility and or Provider: Contact Information: PCP of Record: LUCAS STRATTON Next visit with PCP: 03/05/2023 11:30 CWM/NO/HOMESLEEP 1 07/23/2023 14:30 CWM/NO/PACT 7 Primary Care May keep copies of this document for up to 14 days and send the original for scanning. /johanny/ KAREN GARCIA AMSA Signed: 03/05/2023 10:56 Receipt Acknowledged By: 03/05/2023 11:46 /johanny/ Lucas Stratton DNP, LUGGER-BC, CNL Primary Care Nurse Practitioner KAREN GARCIA [facility]
--- OUTSIDE RECORDS SUMMARY | 2024-03-05 06:02 | XMS_ITS | Encounter Summary ---
Author Name [facility] [place] [facility] [place] Address [address] [place] [id number] Care Team Providers Care Grain Sampler Name Role Phone LEN MENDOZA Primary Care [...] PART B Sep 23, 2014 PART B [id number] HARMONY MCCALL JR PATIENT MEDICARE (WNR) MEDICARE (M) PART A July 25, 2007 PART A [id number] HARMONY MCCALL JR PATIENT MEDICARE (WNR) MEDICARE (M) PART B July 25, 2007 PART B [id number] HARMONY MCCALL JR PATIENT MEDICARE (WNR) MEDICARE (M) PART A July 25, 2007 PART A [id number] [phone] [id number] HARMONY MCCALL JR PATIENT [facility] MEDICAL EXPENSE (OPT/PROF ) [facility] * Jan 24, 2015 [id number] CAROLE MCCALL SPOUSE Selected Encounter This section includes the information on record at [place] for the Encounter. Date/Time Encounter Type Encounter Description Reason Provider Source Oct 15, 2023 08:00 AM EXERCISE CLASS HEALTH/WELLBEING [facility] ICD-10-CM Z72.3 Lack of physical exercise JANIE LAZCANO IHErin Encounter Template Text not used by [facility] Assessments - Encounter Diagnoses This section includes the primary and secondary diagnoses documented for the Encounter. Date/Time Primary/Secondary Diagnosis Diagnosis Name Provider Source Oct 15, 2023 10:45 AM PRIMARY Lack of physical exercise DAMON ONEILL [place] [facility] [place] [facility] Plan of Treatment: Future Appointments (+ 6 months) and Future Tests (+/- 45 days) The Plan of Treatment section includes future care activities for the patient from all [place] treatmentfacilities. This section includes future appointments and future orders which are active, pending or scheduled. Future Appointments This section includes appointments that were scheduled to occur 6 months from the date of the Encounter, up to a maximum of 20 appointments. The data comes from all [place] treatment facilities. Appointment Date/Time Appointment Type Appointme nt Facility Name Oct 18, 2023 11:00 AM AM[facility]ULATORY - NONE [place] Oct 23, 2023 09:00 AM AMBULATORY - NONE [facility] [place] [facility] Oct 25, 2023 11:00 AM AMBULATORY - NONE [place] Nov 01, 2023 11:00 AM AMBULATORY - NONE [place] Nov 08, 2023 11:00 AM AMBULATORY - NONE [place] Nov 15, 2023 11:00 AM AMBULATORY - NONE [place] Nov 22, 2023 11:00 AM AMBULATORY - NONE [place] Nov 29, 2023 11:00 AM AMBULATORY - NONE [place] Dec 03, 2023 02:00 PM AMBULATORY - NONE [facility] [place] [facility] Dec 06, 2023 11:00 AM AM[facility]ULATORY - NONE [place] Dec 11, 2023 10:00 AM AMBULATORY - NONE [facility] [place] [facility] Dec 11, 2023 01:00 PM AMBULATORY - MEDICINE [facility] [place] [place] [facility] Dec 13, 2023 11:00 AM AM[facility]ATORY - NONE [place] Dec 20, 2023 11:00 AM AMBULATORY - NONE [place] Dec 25, 2023 10:00 AM AMBULATORY - NONE [facility] [place] [facility] Dec 27, 2023 11:00 AM AMBULATORY - NONE [place] Jan 03, 2024 11:00 AM AMBULATORY - NONE [place] Jan 08, 2024 10:00 AM AMBULATORY - NONE [facility] [place] [facility] Jan 10, 2024 11:00 AM AMB[facility]ATORY - NONE [place] Jan 17, 2024 11:00 AM AM[place]ATORY - NONE [place] Social History: Smoking Status (Most current) and Tobacco Use (All prior to encounter date) This section includes the most current, and the historical, smoking and tobacco- related health factors from the [place] facility where the Encounter took place. Current Smoking Status This section includes the most current smoking, or tobacco-related health factor, from the [place] facility where the Encounter took place. Date/Time Current Smoking Status Comment Facil ity Jan 26, 2023 01:30 PM VA-TOBACCO FORMER USER [facility] [place] [facility] Tobacco Use History This section includes a history of the smoking, or tobacco-related health factors, that were collected on or before the date of the Encounter. The data comes from the [place] facility where the Encounter took place. Date/Time Smoking Status/Tobacco Use Comment F acility Jan 26, 2023 01:30 PM VA-TOBACCO QUIT 15 YRS OR MORE [facility] [place] [facility] Jan 27, 2022 11:00 AM VA-TOBACCO FORMER USER [facility] [place] [facility] Jan 27, 2022 11:00 AM VA-TOBACCO QUIT 15 YRS OR MORE [facility] [place] [facility] Sep 17, 2020 09:00 AM VA-TOBACCO FORMER USER [facility] [place] [facility] Sep 17, 2020 09:00 AM VA-TOBACCO QUIT 15 YRS OR MORE [facility] [place] [facility] Jun 04, 2019 02:57 PM VA-TOBACCO NEVER USED [facility] [place] [facility] Mar 14, 2018 11:23 AM VA-TOBACCO FORMER USER [facility] [place] [facility] Mar 14, 2018 11:23 AM VA-TOBACCO QUIT 15 YRS OR MORE [facility] [place] [facility] Apr 04, 2017 12:30 PM QUIT TOBACCO USE > 7 YEARS AGO [facility] Apr 05, 2016 01:02 PM QUIT TOBACCO USE > 7 YEARS AGO quit in 1984 [facility] Encounter Notes: All associated encounter notes This section contains the clinical notes associated to the Encounter. Date/Time Encounter Note(s) Provider Source Oct 15, 2023 10:44 AM GERIATRIC MEDICINE NOTE: LOCAL TITLE: GEROFIT VCM/VVC/VOD TELEHEALTH SUPERVISED EXERCISE STANDARD TITLE: GERIATRIC MEDICINE NOTE DATE OF NOTE: OCT 15, 2023@10:44 ENTRY DATE: OCT 15, 2023@10:44:17 AUTHOR: DOUG ONEILL COSIGNER: URGENCY: STATUS: COMPLETED GEROFIT VVC/VCM/VOD Telehealth Supervised Exercise NOTE [place] Provided informed consent to receive treatment via Telehealth., [place] mailed and has been made verbally aware of [facility] [place] practices. [place]'s Location: address on record unless specified below. Emergency Contact: on record unless specified below. participated remotely in the [facility] exercise program today through [place] [employer]. Activities were focused on progression of their individual exercise prescription (cardiorespiratory fitness training, strength training, etc.) and group-based exercise sessions to include, but not limited to: flexibility training, balance training & functional circuit training. Exercise participation was supervised remotely by [facility] staff and any questions/concerns were addressed with the patient. Modifications were made to programming as appropriate to suit Veterans individual needs, preferences, and whole health concerns. /johanny/ VIOLETTA FINK LICENSE SERVICE LINE BUS CLEANER Signed: 10/15/2023 10:51 DOUG ONEILL [facility]
--- OUTSIDE RECORDS SUMMARY | 2024-03-05 06:02 | XMS_ITS | Encounter Summary ---
Author Name [facility] [place] Organization [facility] [place] Address [address] [place] [address] Care Team Providers Care Waste Management Engineer Name Role Phone LEN MENDOZA Primary Care [...] PART B Sep 23, 2014 PART B [id number] HARMONY MCCALL JR PATIENT MEDICARE (WNR) MEDICARE (M) PART A July 25, 2007 PART A [id number] HARMONY MCCALL JR PATIENT MEDICARE (WNR) MEDICARE (M) PART B July 25, 2007 PART B [id number] HARMONY MCCALL JR PATIENT MEDICARE (WNR) MEDICARE (M) PART A July 25, 2007 PART A [id number] [id number] HARMONY MCCALL JR PATIENT [facility] MEDICAL EXPENSE (OPT/PROF ) [facility] * Jan 24, 2015 [id number] 18 CAROLE MCCALL SPOUSE Selected Encounter This section includes the information on record at [place] for the Encounter. Date/Time Encounter Type Encounter Description Reason Provider Source Oct 17, 2023 08:00 AM EXERCISE CLASS HEALTH/WELLBEING [facility] ICD-10-CM Z72.3 Lack of physical exercise DAMON ONEILL IHE Encounter Template Text not used by [place] Assessments - Encounter Diagnoses This section includes the primary and secondary diagnoses documented for the Encounter. Date/Time Primary/Secondary Diagnosis Diagnosis Name Provider Source Oct 17, 2023 10:55 AM PRIMARY Lack of physical exercise DAMON ONEILL [place] [facility] [place] [facility] Plan of Treatment: Future Appointments (+ 6 months) and Future Tests (+/- 45 days) The Plan of Treatment section includes future care activities for the patient from all [place] treatmentfacilities. This section includes future appointments and future orders which are active, pending or scheduled. Future Appointments This section includes appointments that were scheduled to occur 6 months from the date of the Encounter, up to a maximum of 20 appointments. The data comes from all [place] treatment facilities. Appointment Date/Time Appointment Type Appointme nt Facility Name Oct 18, 2023 11:00 AM AMBULATORY - NONE [facility] Oct 23, 2023 09:00 AM AMBULATORY - NONE [facility] [place] [facility] Oct 25, 2023 11:00 AM AMBULATORY - [...] AMBULATORY - NONE [facility] [place] [facility] Dec 06, 2023 11:00 AM AMBULATORY - NONE [facility] [facility] Dec 11, 2023 10:00 AM AMBULATORY - NONE [facility] [place] [facility] Dec 11, 2023 01:00 PM AMBULATORY - MEDICINE [facility] [place] [facility] Dec 13, 2023 11:00 AM AMBULATORY - NONE [facility] [facility] Dec 20, 2023 11:00 AM AMBULATORY - NONE [facility] [facility] Dec 25, 2023 10:00 AM AMBULATORY - NONE [facility] [place] [facility] Dec 27, 2023 11:00 AM AMBULATORY - NONE [facility] [facility] Jan 03, 2024 11:00 AM AMBULATORY - NONE [facility] [facility] Jan 08, 2024 10:00 AM AMBULATORY - NONE [facility] [place] [facility] Jan 10, 2024 11:00 AM AMBULATORY - NONE [facility] [facility] Jan 17, 2024 11:00 AM AMBULATORY - NONE [place] [facility] Social History: Smoking Status (Most current) and Tobacco Use (All prior to encounter date) This section includes the most current, and the historical, smoking and tobacco- related health factors from the [place] facility where the Encounter took place. Current Smoking Status This section includes the most current smoking, or tobacco-related health factor, from the [place] facility where the Encounter took place. Date/Time Current Smoking Status Comment Facil ity Jan 26, 2023 01:30 PM VA-TOBACCO FORMER USER [facility] [place] [facility] Tobacco Use History This section includes a history of the smoking, or tobacco-related health factors, that were collected on or before the date of the Encounter. The data comes from the [place] facility where the Encounter took place. Date/Time Smoking Status/Tobacco Use Comment F acility Jan 26, 2023 01:30 PM VA-TOBACCO QUIT 15 YRS OR MORE [facility] [place] [facility] Jan 27, 2022 11:00 AM VA-TOBACCO FORMER USER [facility] [place] [facility] Jan 27, 2022 11:00 AM VA-TOBACCO QUIT 15 YRS OR MORE [facility] [place] [facility] Sep 17, 2020 09:00 AM VA-TOBACCO FORMER USER [facility] [place] [facility] Sep 17, 2020 09:00 AM VA-TOBACCO QUIT 15 YRS OR MORE [facility] [place] [facility] Jun 04, 2019 02:57 PM VA-TOBACCO NEVER USED [facility] [place] [facility] Mar 14, 2018 11:23 AM VA-TOBACCO FORMER USER [facility] [place] [facility] Mar 14, 2018 11:23 AM VA-TOBACCO QUIT 15 YRS OR MORE [facility] Apr 04, 2017 12:30 PM QUIT TOBACCO USE > 7 YEARS AGO [facility] Apr 05, 2016 01:02 PM QUIT TOBACCO USE > 7 YEARS AGO quit in 1984 [facility] Encounter Notes: All associated encounter notes This section contains the clinical notes associated to the Encounter. Date/Time Encounter Note(s) Provider Source Oct 17, 2023 10:53 AM GERIATRIC MEDICINE NOTE: LOCAL TITLE: GEROFIT VCM/VVC/VOD TELEHEALTH SUPERVISED EXERCISE STANDARD TITLE: GERIATRIC MEDICINE NOTE DATE OF NOTE: OCT 17, 2023@10:53 ENTRY DATE: OCT 17, 2023@10:53:21 AUTHOR: DOUG ONEILL COSIGNER: URGENCY: STATUS: COMPLETED GEROFIT VVC/VCM/VOD Telehealth Supervised Exercise NOTE [place] Provided informed consent to receive treatment via Telehealth., [place] mailed and has been made verbally aware of [facility] [place] practices. [place]'s Location: address on record unless specified below. Emergency Contact: on record unless specified below. [place] participated remotely in the [facility] exercise program today through [place] Virtual Tongue Carrier. Activities were focused on progression of their [...] whole health concerns. /johanny/ VIOLETTA FINK LICENSE ENVIRONMENTAL STUDIES DEPARTMENT CHAIR Signed: 10/17/2023 11:09 DOUG ONEILL [facility]
--- OUTSIDE RECORDS SUMMARY | 2024-03-05 06:03 | XMS_ITS ---
Author Name [facility] [place] [place] Organization [facility] [place] Address [address] [place] [address] Care Team Providers Care Gasfitter Name Role Phone LEN MENDOZA Primary Care Provider Unavail ble Insurance Providers: All historical and current [...] PART B Sep 23, 2014 PART B [id number] HARMONY MCCALL JR PATIENT MEDICARE (WNR) MEDICARE (M) PART A July 25, 2007 PART A [id number] HARMONY MCCALL JR PATIENT MEDICARE (WNR) MEDICARE (M) PART B July 25, 2007 PART B [id number] [id number] HARMONY MCCALL JR PATIENT MEDICARE (WNR) MEDICARE (M) PART A July 25, 2007 PART A [id number] HARMONY MCCALL JR PATIENT [facility] MEDICAL EXPENSE (OPT/PROF ) [facility] * Jan 24, 2015 [id number] 18 CAROLE MCCALL SPOUSE Selected Encounter This section includes the information on record at [place] for the Encounter. Date/Time Encounter Type Encounter Description Reason Provider Source Mar 16, 2023 09:20 AM SLEEP STUDY UNATT&RESP EFFT SLEEP STUDY ICD-10-CM G47.33 Obstructive sleep apnea (adult) (pediatric) SHELBI,CHRISTIANO IHE Encounter Template Text not used by [place] Assessments - Encounter Diagnoses This section includes the primary and secondary diagnoses documented for the Encounter. Date/Time Primary/Secondary Diagnosis Diagnosis Name Provider Source Mar 16, 2023 09:20 AM PRIMARY Obstructive sleep apnea (adult) (pediatric) SHELBI,CHRISTIANO [facility] Plan of Treatment: Future Appointments (+ 6 months) and Future Tests (+/- 45 days) The Plan of Treatment section includes future care activities for the patient from all [place] treatmentfacilities. This section includes future appointments and future orders which are active, pending or scheduled. Future Appointments This section includes appointments that were scheduled to occur 6 months from the date of the Encounter, up to a maximum of 20 appointments. The data comes from all [place] treatment facilities. Appointment Date/Time Appointment Type Appointme nt Facility Name Mar 27, 2023 10:00 AM [facility]ORY - NONE [place] [facility] Mar 29, 2023 11:00 AM AMBULATORY - NONE [facility] [facility] Apr 05, 2023 11:00 AM AMBULATORY - NONE [facility] [facility] Apr 10, 2023 10:00 AM [facility] Apr 12, 2023 11:00 AM AMBULATORY - NONE [facility] Apr 19, 2023 11:00 AM AMBULATORY - NONE [facility] [facility] Apr 26, 2023 11:00 AM AMBULATORY - NONE [facility] [facility] May 03, 2023 11:00 AM AMBULATORY - NONE [place] May 10, 2023 11:00 AM AMBULATORY - NONE [place] May 15, 2023 10:00 AM AMBULATORY - NONE [facility] [place] [facility] May 17, 2023 11:00 AM AMBULATORY - NONE [place] May 24, 2023 11:00 AM AMBULATORY - NONE [place] May 29, 2023 10:00 AM AMBULATORY - NONE [facility] [place] [facility] May 31, 2023 11:00 AM AMBULATORY - NONE [place] Jun 07, 2023 11:00 AM AMBULATORY - NONE [place] Jun 12, 2023 10:00 AM AMBULATORY - NONE [facility] [place] [facility] Jun 14, 2023 11:00 AM AMBULATORY - NONE [place] Jun 21, 2023 11:00 AM AMBULATORY - NONE [facility] Jun 26, 2023 10:00 AM AMBULATORY - NONE [facility] [place] [facility] Jun 28, 2023 11:00 AM AMBULATORY - NONE [place] Social History: Smoking Status (Most current) and Tobacco Use (All prior to encounter date) This section includes the most current, and the historical, smoking and tobacco- related health factors from the [place] facility where the Encounter took place. Current Smoking Status This section includes the most current smoking, or tobacco-related health factor, from the [place] facility where the Encounter took place. Date/Time Current Smoking Status Comment Facil ity Jan 26, 2023 01:30 PM VA-TOBACCO FORMER USER [facility] [place] [facility] Tobacco Use History This section includes a history of the smoking, or tobacco-related health factors, that were collected on or before the date of the Encounter. The data comes from the [place] facility where the Encounter took place. Date/Time Smoking Status/Tobacco Use Comment F acility Jan 26, 2023 01:30 PM VA-TOBACCO QUIT 15 YRS OR MORE [facility] [place] [facility] Jan 27, 2022 11:00 AM VA-TOBACCO FORMER USER [facility] [place] [facility] Jan 27, 2022 11:00 AM VA-TOBACCO QUIT 15 YRS OR MORE [facility] [place] [facility] Sep 17, 2020 09:00 AM VA-TOBACCO FORMER USER [facility] [place] [facility] Sep 17, 2020 09:00 AM VA-TOBACCO QUIT 15 YRS OR MORE [facility] [place] [facility] Jun 04, 2019 02:57 PM VA-TOBACCO NEVER USED [facility] [place] [facility] Mar 14, 2018 11:23 AM VA-TOBACCO FORMER USER [facility] [place] [facility] Mar 14, 2018 11:23 AM VA-TOBACCO QUIT [facility] YRS OR [facility] Apr 04, 2017 12:30 PM QUIT TOBACCO USE > 7 YEARS AGO [facility] Apr 05, 2016 01:02 PM QUIT TOBACCO USE > 7 YEARS AGO quit in 1984 [facility] Encounter Notes: All associated encounter notes This section contains the clinical notes associated to the Encounter. Date/Time Encounter Note(s) Provider Source Mar 16, 2023 09:20 AM SLEEP MEDICINE NOT E: LOCAL TITLE: SLEEP TEST SFT DATA UPLOAD STANDARD TITLE: SLEEP MEDICINE NOTE DATE OF NOTE: MAR 16, 2023@09:20:26 ENTRY DATE: MAR 16, 2023@09:20:27 AUTHOR: CHRISTIANO MARIO EXP COSIGNER: URGENCY: STATUS: COMPLETED Home sleep testing was completed by the patient and the device was returned. The data has been uploaded and reviewed for quality.: Data quality is: Acceptable Study to be scored and reviewed for interpretation Time spent: 30 min /johanny/ HERO BROOKS BAND SINGER Signed: 03/16/2023 09:20 CHRISTIANO MARIO [facility]
--- OUTSIDE RECORDS SUMMARY | 2024-03-05 06:03 | XMS_ITS | Encounter Summary ---
Author Name [facility] [place] Organization [facility] [place] Address [address] [place] [address] Care Team Providers Care Capacity Analyst Name Role Phone ELN MENDOZA Primary Care Provider Unavaila ble Insurance [...] PART B Sep 23, 2014 PART B [id number] [id number] HARMONY MCCALL JR PATIENT MEDICARE (WNR) MEDICARE (M) PART A July 25, 2007 PART A [id number] [id number] HARMONY MCCALL JR PATIENT MEDICARE (WNR) MEDICARE (M) PART B July 25, 2007 PART B [id number] [id number] HARMONY MCCALL JR PATIENT MEDICARE (WNR) MEDICARE (M) PART A July 25, 2007 PART A [id number] [id number] HARMONY MCCALL JR PATIENT [facility] MEDICAL EXPENSE (OPT/PROF ) [facility] * Jan 24, 2015 [id number] CAROLE MCCALL SPOUSE Selected Encounter This section includes the information on record at [place] for the Encounter. Date/Time Encounter Type Encounter Description Reason Provider Source Mar 07, 2023 08:00 AM EXERCISE CLASS HEALTH/WELLBEING [facility] ICD-10-CM Z72.3 Lack of physical exercise AMINATA UNDERWOOD IHE Encounter Template Text not used by [place] Assessments - Encounter Diagnoses This section includes the primary and secondary diagnoses documented for the Encounter. Date/Time Primary/Secondary Diagnosis Diagnosis Name Provider Source Mar 07, 2023 10:33 AM PRIMARY Lack of physical exercise AMINATA UNDERWOOD [facility] Plan of Treatment: Future Appointments (+ 6 months) and Future Tests (+/- 45 days) The Plan of Treatment section includes future care activities for the patient from all [place] treatmentfacilities. This section includes future appointments and future orders which are active, pending or scheduled. Future Appointments This section includes appointments that were scheduled to occur 6 months from the date of the Encounter, up to a maximum of 20 appointments. The data comes from all [place] treatment facilities. Appointment Date/Time Appointment Type Appointme nt Facility Name Mar 08, 2023 11:00 AM AMBULATORY - NONE [facility] [facility] Mar 15, 2023 11:00 AM AMBULATORY - NONE [facility] [facility] Mar 27, 2023 10:00 AM AMBULATORY - NONE [place] [facility] [place] [facility] Mar 29, 2023 11:00 AM AMBULATORY - NONE [place] Apr 05, 2023 11:00 AM AMBULATORY - NONE [place] Apr 10, 2023 10:00 AM AMBULATORY - NONE [facility] [place] [facility] Apr 12, 2023 11:00 AM AMBULATORY - NONE [place] Apr 19, 2023 11:00 AM AMBULATORY - NONE [place] Apr 26, 2023 11:00 AM AMBULATORY - NONE [facility] [facility] May 03, 2023 11:00 AM AMBULATORY - NONE [place] May 10, 2023 11:00 AM AMBULATORY - NONE [facility] May 15, 2023 10:00 AM AMBULATORY - NONE [place] [facility] [place] [facility] May 17, 2023 11:00 AM AMBULATORY - NONE [place] May 24, 2023 11:00 AM AMBULATORY - NONE [facility] May 29, 2023 10:00 AM AMBULATORY - NONE [facility] [place] [facility] May 31, 2023 11:00 AM AMBULATORY - NONE [place] Jun 07, 2023 11:00 AM AMBULATORY - NONE [place] Jun 12, 2023 10:00 AM AMBULATORY - NONE [facility] [place] [facility] Jun 14, 2023 11:00 AM AMBULATORY - NONE [facility] Jun 21, 2023 11:00 AM AMBULATORY - NONE [facility] Social History: Smoking Status (Most current) and Tobacco Use (All prior to encounter date) This section includes the most current, and the historical, smoking and tobacco- related health factors from the [place] facility where the Encounter took place. Current Smoking Status This section includes the most current smoking, or tobacco-related health factor, from the [place] facility where the Encounter took place. Date/Time Current Smoking Status Comment Facil ity Jan 26, 2023 01:30 PM VA-TOBACCO QUIT 15 YRS OR MORE [place] [facility] [place] [facility] Tobacco Use History This section includes a history of the smoking, or tobacco-related health factors, that were collected on or before the date of the Encounter. The data comes from the [place] facility where the Encounter took place. Date/Time Smoking Status/Tobacco Use Comment F acility Jan 26, 2023 01:30 PM VA-TOBACCO QUIT 15 YRS OR MORE [facility] [place] [facility] Jan 27, 2022 11:00 AM VA-TOBACCO FORMER USER [facility] [place] [facility] Jan 27, 2022 11:00 AM VA-TOBACCO QUIT 15 YRS OR MORE [facility] [place] [facility] Sep 17, 2020 09:00 AM VA-TOBACCO FORMER USER [facility] [place] [facility] Sep 17, 2020 09:00 AM VA-TOBACCO QUIT 15 YRS OR MORE [facility] [place] [facility] Jun 04, 2019 02:57 PM VA-TOBACCO NEVER USED [facility] [place] [facility] Mar 14, 2018 11:23 AM VA-TOBACCO FORMER USER [facility] [place] [facility] Mar 14, 2018 11:23 AM VA-TOBACCO QUIT 15 YRS OR MORE [facility] [place] [facility] Apr 04, 2017 12:30 PM QUIT TOBACCO USE > 7 YEARS AGO [facility] Apr 05, 2016 01:02 PM QUIT TOBACCO USE > 7 YEARS AGO quit in 1984 [facility] Encounter Notes: All associated encounter notes This section contains the clinical notes associated to the Encounter. Date/Time Encounter Note(s) Provider Source Mar 07, 2023 10:32 AM GERIATRIC MEDICINE NOTE: LOCAL TITLE: GEROFIT VCM/VVC/VOD TELEHEALTH SUPERVISED EXERCISE STANDARD TITLE: GERIATRIC MEDICINE NOTE DATE OF NOTE: MAR 07, 2023@10:32 ENTRY DATE: MAR 07, 2023@10:32:24 AUTHOR: AMINATA UNDERWOOD EXP COSIGNER: URGENCY: STATUS: COMPLETED Provided informed consent to receive treatment via Telehealth., [place] mailed and has been made verbally aware of [facility] [place] practices. 's Location: address on record unless specified below. Emergency Contact: on record unless specified below. participated remotely in the [facility] exercise program today through [place] Virtual Morphology Teacher. Activities were focused on progression of their individual exercise prescription (cardiorespiratory fitness training, strength training, etc.) and group-based exercise sessions to include, but not limited to: flexibility training, balance training & functional circuit training. Exercise participation was supervised remotely by [facility] staff and any questions/concerns were addressed with the patient. Modifications were made to programming as appropriate to suit Veterans individual needs, preferences, and whole health concerns. /johanny/ AMINATA UNDERWOOD PT PHYSICAL THERAPIST Signed: 03/07/2023 10:37 AMINATA UNDERWOOD [facility]
--- OUTSIDE RECORDS SUMMARY | 2024-03-05 06:03 | XMS_ITS | Encounter Summary ---
Author Name [place] Organization [place] Address [address] [place] [id number] Care Team Providers Care Handkerchief Cutter Name Role Phone LEN MENDOZA Primary Care [...] PART B Sep 23, 2014 PART B [id number] HARMONY MCCALL JR PATIENT MEDICARE (WNR) MEDICARE (M) PART A July 25, 2007 PART A [id number] HARMONY MCCALL JR PATIENT MEDICARE (WNR) MEDICARE (M) PART B July 25, 2007 PART B [id number] [id number] HARMONY MCCALL JR PATIENT MEDICARE (WNR) MEDICARE (M) PART A July 25, 2007 PART A [id number] HARMONY MCCALL JR PATIENT [facility] MEDICAL EXPENSE (OPT/PROF ) [facility] * Jan 24, 2015 [id number] 18 CAROLE MCCALL SPOUSE Selected Encounter This section includes the information on record at [place] for the Encounter. Date/Time Encounter Type Encounter Description Reason Provider Source Mar 14, 2023 08:00 AM EXERCISE CLASS HEALTH/WELLBEING SRVS ICD-10-CM Z72.3 Lack of physical exercise DAMON ONEILL IHE Encounter Template Text not used by [place] Assessments - Encounter Diagnoses This section includes the primary and secondary diagnoses documented for the Encounter. Date/Time Primary/Secondary Diagnosis Diagnosis Name Provider Source Mar 14, 2023 11:08 AM PRIMARY Lack of physical exercise [facility]ILL [facility] Plan of Treatment: Future Appointments (+ 6 months) and Future Tests (+/- 45 days) The Plan of Treatment section includes future care activities for the patient from all [place] treatmentfacilities. This section includes future appointments and future orders which are active, pending or scheduled. Future Appointments This section includes appointments that were scheduled to occur 6 months from the date of the Encounter, up to a maximum of 20 appointments. The data comes from all [place] treatment facilities. Appointment Date/Time Appointment Type Appointme nt Facility Name Mar 15, 2023 11:00 AM AMBULATORY - NONE [facility] Mar 27, 2023 10:00 AM AMBULATORY - NONE [facility] [place] [facility] Mar 29, 2023 11:00 AM AMBULATORY - NONE [facility] Apr 05, 2023 11:00 AM AMBULATORY - NONE [facility] Apr 10, 2023 10:00 AM AMBULATORY - NONE [facility] [place] [facility] Apr 12, 2023 11:00 AM AMBULATORY - NONE [facility] Apr 19, 2023 11:00 AM AMBULATORY - NONE [facility] Apr 26, 2023 11:00 AM AMBULATORY - NONE [facility] May 03, 2023 11:00 AM AMBULATORY - NONE [facility] May 10, 2023 11:00 AM AMBULATORY - NONE [facility] May 15, 2023 10:00 AM AMBULATORY - NONE [facility] [place] [facility] May 17, 2023 11:00 AM AMBULATORY - NONE [facility] May 24, 2023 11:00 AM AMBULATORY - NONE [facility] May 29, 2023 10:00 AM AMBULATORY - NONE [facility] [place] [facility] May 31, 2023 11:00 AM AMBULATORY - NONE [facility] Jun 07, 2023 11:00 AM AMBULATORY - NONE [facility] Jun 12, 2023 10:00 AM AMBULATORY - NONE [facility] [place] [facility] Jun 14, 2023 11:00 AM AMBULATORY - NONE [facility] Jun 21, 2023 11:00 AM AMBULATORY - NONE [facility] Jun 26, 2023 10:00 AM AMBULATORY - NONE [facility] [place] [facility] Social History: Smoking Status (Most current) and Tobacco Use (All prior to encounter date) This section includes the most current, and the historical, smoking and tobacco- related health factors from the [place] facility where the Encounter took place. Current Smoking Status This section includes the most current smoking, or tobacco-related health factor, from the [place] facility where the Encounter took place. Date/Time Current Smoking Status Comment Facil ity Jan 26, 2023 01:30 PM VA-TOBACCO FORMER USER [facility] [place] [facility] Tobacco Use History This section includes a history of the smoking, or tobacco-related health factors, that were collected on or before the date of the Encounter. The data comes from the [place] facility where the Encounter took place. Date/Time Smoking Status/Tobacco Use Comment F acility Jan 26, 2023 01:30 PM VA-TOBACCO QUIT 15 YRS OR MORE [facility] [place] [facility] Jan 27, 2022 11:00 AM VA-TOBACCO FORMER USER [facility] [place] [facility] Jan 27, 2022 11:00 AM VA-TOBACCO QUIT 15 YRS OR MORE [facility] [place] [facility] Sep 17, 2020 09:00 AM VA-TOBACCO FORMER USER [facility] [place] [facility] Sep 17, 2020 09:00 AM VA-TOBACCO QUIT 15 YRS OR MORE [facility] [place] [facility] Jun 04, 2019 02:57 PM VA-TOBACCO NEVER USED [facility] [place] [facility] Mar 14, 2018 11:23 AM VA-TOBACCO FORMER USER [facility] [place] [facility] Mar 14, 2018 11:23 AM VA-TOBACCO QUIT 15 YRS OR MORE [facility] Apr 04, 2017 12:30 PM QUIT TOBACCO USE > 7 YEARS AGO [facility] Apr 05, 2016 01:02 PM QUIT TOBACCO USE > 7 YEARS AGO quit in 1984 [facility] Encounter Notes: All associated encounter notes This section contains the clinical notes associated to the Encounter. Date/Time Encounter Note(s) Provider Source Mar 14, 2023 11:07 AM GERIATRIC MEDICINE NOTE: LOCAL TITLE: GEROFIT VCM/VVC/VOD TELEHEALTH SUPERVISED EXERCISE STANDARD TITLE: GERIATRIC MEDICINE NOTE DATE OF NOTE: MAR 14, 2023@11:07 ENTRY DATE: MAR 14, 2023@11:07:19 AUTHOR: DOUG ONEILL COSIGNER: URGENCY: STATUS: COMPLETED GEROFIT VVC/VCM/VOD Telehealth Supervised Exercise NOTE Provided informed consent to receive treatment via Telehealth., [place] mailed and has been made verbally aware of Telehealth Group [place] practices. 's Location: address on record unless specified below. Emergency Contact: on record unless specified below. [place] participated remotely in the Gerofit exercise program today through [place] Virtual Apartment Rental Clerk. Activities were focused on progression of their individual exercise prescription (cardiorespiratory fitness training, strength training, etc.) and group-based exercise sessions to include, but not limited to: flexibility training, balance training & functional circuit training. Exercise participation was supervised remotely by Gerofit staff and any questions/concerns were addressed with the patient. Modifications were made to programming as appropriate to suit Veterans individual needs, preferences, and whole health concerns. /johanny/ VIOLETTA FINK [employer] MACHINE OPERATOR Signed: 03/14/2023 11:13 DOUG ONEILL [facility]
--- OUTSIDE RECORDS SUMMARY | 2024-03-05 06:03 | XMS_ITS | Encounter Summary ---
Author Name Department [place] Organization [place] Address [address] [place] [address] Care Team Providers Care Tape Transferrer Name Role Phone LEN MENDOZA Primary Care [...] PART B Sep 23, 2014 PART B [id number] HARMONY MCCALL JR PATIENT MEDICARE (WNR) MEDICARE (M) PART A July 25, 2007 PART A [id number] [phone] HARMONY MCCALL JR PATIENT MEDICARE (WNR) MEDICARE (M) PART B July 25, 2007 PART B [id number] HARMONY MCCALL JR PATIENT MEDICARE (WNR) MEDICARE (M) PART A July 25, 2007 PART A [id number] HARMONY MCCALL JR PATIENT [facility] MEDICAL EXPENSE (OPT/PROF ) [facility] * Jan 24, 2015 [id number] CAROLE MCCALL SPOUSE Selected Encounter This section includes the information on record at [place] for the Encounter. Date/Time Encounter Type Encounter Description Reason Provider Source Mar 08, 2023 11:00 AM GROUP BEHAVE COUNS 2-10 WEIGHT MGMT & MOVE! PROG - GRP ICD-10-CM E66.09 Other obesity due to excess calories MIGUEL KRAMER Erin Encounter Template Text not used by [place] Assessments - Encounter Diagnoses This section includes the primary and secondary diagnoses documented for the Encounter. Date/Time Primary/Secondary Diagnosis Diagnosis Name Provider Source Mar 11, 2023 07:02 PM PRIMARY Other obesity due to excess calories SANTIAGO KRAMER Plan of Treatment: Future Appointments (+ 6 [...] 27, 2023 10:00 [facility] Mar 29, 2023 11:00 AM AMBULATORY - NONE [facility] Apr 05, 2023 11:00 AM AMBULATORY - NONE [facility] Apr 10, 2023 10:00 AM [facility] Apr 12, 2023 11:00 AM AMBULATORY - NONE [facility] Apr 19, 2023 11:00 AM AMBULATORY - NONE [facility] Apr 26, 2023 11:00 AM AMBULATORY - NONE [facility] May 03, 2023 11:00 AM AMBULATORY - NONE [facility] May 10, 2023 11:00 AM AMBULATORY - NONE [facility] May 15, 2023 10:00 AM AMBULATORY - NONE [facility] [place] [facility] May 17, 2023 11:00 AM AMBULATORY - NONE [facility] [facility] May 24, 2023 11:00 AM AMBULATORY - NONE [facility] May 29, 2023 10:00 AM AMBULATORY - NONE [facility] [place] [facility] May 31, 2023 11:00 AM AMBULATORY - NONE [facility] [facility] Jun 07, 2023 11:00 AM AMBULATORY - NONE [facility] Jun 12, 2023 10:00 AM AMBULATORY - NONE [facility] [place] [facility] Jun 14, 2023 11:00 AM AMBULATORY - NONE [facility] Jun 21, 2023 11:00 AM AMBULATORY - NONE [facility] Jun 26, 2023 10:00 AM AMBULATORY - NONE [facility] [place] [facility] Encounter Notes: All associated encounter notes This section contains the clinical notes associated to the Encounter. Date/Time Encounter Note(s) Provider Source Mar 08, 2023 11:00 AM MOVE NOTE: LOCAL TITLE: WEIGHT MANAGEMENT/MOVE! OUTPATIENT GROUP NOTE STANDARD TITLE: MOVE NOTE DATE OF NOTE: MAR 08, 2023@11:00 ENTRY DATE: MAR 11, 2023@18:30:37 AUTHOR: SANTIAGO KRAMER EXP COSIGNER: URGENCY: STATUS: COMPLETED participated in MOVE! Group Counseling via [facility] on March 08, 2023. The was provided with information on [facility] and has given verbal consent to use group V[place] services for their healthcare. The copy of the Group Telehealth Agreement has been mailed to the . The Veterans location/emergency contact number were confirmed. The Emergency Call Relay Center (E911) was available. The visit was locked for security and privacy. [place] identified with 2 identifiers: [ ] Full Name [ ] Address Veterans attended the [facility] MOVE! group session on this date. MOVE! is a program designed to provide education about weight management skills to overweight and obese Veterans. Group members combined to lose 6 pounds since their last attended group. Group members began today's session discussing goals for the holiday season. One group member had a question on managing diabetes and hyperglycemia. Majority of the session was spent reviewing the factors that influence blood glucose including medications, exercise and carbohydrates. Faciliators spent most time dicsussing different sources of carbohydrates and tips for increasing exercise. The next [facility] MOVE! group meeting will be held on February @ 11:00am. did not provide their ewight this wei. Dx: e66.3, z68.28 /es/ SANTIAGO KRAMER STAFF DIETITIAN Signed: 03/11/2023 19:02 Receipt Acknowledged By: 03/12/2023 11:24 /es/ GORDON PATHAK, Ph.D. CLINICAL PSYCHOLOGIST SANTIAGO KRAMERFIELD
--- OUTSIDE RECORDS SUMMARY | 2024-03-05 06:03 | XMS_ITS | Encounter Summary ---
Author Name Department of [place] Organization [place] Address [address] [place] [address] Care Team Providers Care Machine Specialist Name Role Phone LEN MENDOZA Primary Care [...] PART B Sep 23, 2014 PART B [id number] HARMONY MCCALL JR PATIENT MEDICARE (WNR) MEDICARE (M) PART A July 25, 2007 PART A [id number] HARMONY MCCALL JR PATIENT MEDICARE (WNR) MEDICARE (M) PART B July 25, 2007 PART B [id number] [phone] HARMONY MCCALL JR PATIENT MEDICARE (WNR) MEDICARE (M) PART A July 25, 2007 PART A [id number] HARMONY MCCALL JR PATIENT [facility] MEDICAL EXPENSE (OPT/PROF ) [facility] * Jan 24, 2015 [id number] 18 CAROLE MCCALL SPOUSE Selected Encounter This section includes the information on record at [place] for the Encounter. Date/Time Encounter Type Encounter Description Reason Provider Source Mar 09, 2023 08:00 AM EXERCISE CLASS HEALTH/WELLBEING SRVS ICD-10-CM Z72.3 Lack of physical exercise TERRY COATES E Encounter Template Text not used by [place] Assessments - Encounter Diagnoses This section includes the primary and secondary diagnoses documented for the Encounter. Date/Time Primary/Secondary Diagnosis Diagnosis Name Provider Source Mar 09, 2023 11:00 AM PRIMARY Lack of physical exercise TERRY COATES [facility] Plan of Treatment: Future Appointments (+ 6 months) and Future Tests (+/- 45 days) The Plan of Treatment section includes future care activities for the patient from all [place] treatmentfacilities. This section includes future appointments and future orders which are active, pending or scheduled. Future Appointments This section includes appointments that were scheduled to occur 6 months from the date of the Encounter, up to a maximum of 20 appointments. The data comes from all [place] treatment facilities. Appointment Date/Time Appointment Type Appointme nt Facility Name Mar 15, 2023 11:00 AM AMBULATORY - NONE [facility] Mar 27, 2023 10:00 AM AMBULATORY - NONE [facility] [place] [facility] Mar 29, 2023 11:00 AM AMBULATORY - NONE [facility] [facility] Apr 05, 2023 11:00 AM AMBULATORY - NONE [facility] Apr 10, 2023 10:00 AM AMBULATORY - NONE [facility] [place] [facility] Apr 12, 2023 11:00 AM [...] AMBULATORY - NONE [facility] [place] [facility] May 17, 2023 11:00 AM AMBULATORY - NONE [facility] May 24, 2023 11:00 AM AMBULATORY - NONE [facility] May 29, 2023 10:00 AM AMBULATORY - NONE [facility] [place] [facility] May 31, 2023 11:00 AM AMBULATORY - NONE [facility] Jun 07, 2023 11:00 AM AMBULATORY - NONE [facility] Jun 12, 2023 10:00 AM AMBULATORY - NONE [facility] [place] [facility] Jun 14, 2023 11:00 AM AMBULATORY - NONE [facility] Jun 21, 2023 11:00 AM AMBULATORY - NONE [facility] Jun 26, 2023 10:00 AM AMBULATORY - NONE [facility] [place] [facility] Social History: Smoking Status (Most current) and Tobacco Use (All prior to encounter date) This section includes the most current, and the historical, smoking and tobacco- related health factors from the [place] facility where the Encounter took place. Current Smoking Status This section includes the most current smoking, or tobacco-related health factor, from the [place] facility where the Encounter took place. Date/Time Current Smoking Status Comment Facil ity Jan 26, 2023 01:30 PM VA-TOBACCO QUIT 15 YRS OR MORE [facility] [place] [facility] Tobacco Use History This section includes a history of the smoking, or tobacco-related health factors, that were collected on or before the date of the Encounter. The data comes from the [place] facility where the Encounter took place. Date/Time Smoking Status/Tobacco Use Comment F acility Jan 26, 2023 01:30 PM VA-TOBACCO QUIT 15 YRS OR MORE [facility] [place] [facility] Jan 27, 2022 11:00 AM VA-TOBACCO FORMER USER [facility] [place] [facility] Jan 27, 2022 11:00 AM VA-TOBACCO QUIT 15 YRS OR MORE [facility] [place] [facility] Sep 17, 2020 09:00 AM VA-TOBACCO FORMER USER [facility] [place] [facility] Sep 17, 2020 09:00 AM VA-TOBACCO QUIT 15 YRS OR MORE [facility] [place] [facility] Jun 04, 2019 02:57 PM VA-TOBACCO NEVER USED [facility] [place] [facility] Mar 14, 2018 11:23 AM VA-TOBACCO FORMER USER [facility] [place] [facility] Mar 14, 2018 11:23 AM VA-TOBACCO QUIT 15 YRS OR MORE [facility] [place] [facility] Apr 04, 2017 12:30 PM QUIT TOBACCO USE > 7 YEARS AGO [facility] Apr 05, 2016 01:02 PM QUIT TOBACCO USE > 7 YEARS AGO quit in 1984 [facility] Encounter Notes: All associated encounter notes This section contains the clinical notes associated to the Encounter. Date/Time Encounter Note(s) Provider Source Mar 09, 2023 10:58 AM GERIATRIC MEDICINE NOTE: LOCAL TITLE: GEROFIT VCM/VVC/VOD TELEHEALTH SUPERVISED EXERCISE STANDARD TITLE: GERIATRIC MEDICINE NOTE DATE OF NOTE: MAR 09, 2023@10:58 ENTRY DATE: MAR 09, 2023@10:59:16 AUTHOR: TERRY COATES COSIGNER: URGENCY: STATUS: COMPLETED GEROFIT VVC/VCM/VOD Telehealth Supervised Exercise NOTE [place] Provided informed consent to receive treatment via Telehealth., mailed and has been made verbally aware of Telehealth Group [place] practices. [place]'s Location: address on record unless specified below. Emergency Contact: on record unless specified below. participated remotely in the Gerofit exercise program today through [place] Virtual [employer] Presser. Activities were focused on progression of their individual exercise prescription (cardiorespiratory fitness training, strength training, etc.) and group-based exercise sessions to include, but not limited to: flexibility training, balance training & functional circuit training. Exercise participation [facility] supervised [facility] and any questions/concerns were addressed with the patient. Modifications were made to programming as appropriate to suit Veterans individual needs, preferences, and whole health concerns. /johanny/ TERRY COATES, PT, DPT PHYSICAL THERAPIST Signed: 03/09/2023 11:04 TERRY COATES [facility]
--- OUTSIDE RECORDS SUMMARY | 2024-03-05 06:04 | XMS_ITS | Encounter Summary ---
Author Name [facility] [place] Organization [place] Address [address] [place] [address] Care Team Providers Care Behavioral Health Rn Name Role Phone LEN MENDOZA Primary Care [...] PART B Sep 23, 2014 PART B [id number] [id number] HARMONY MCCALL JR PATIENT MEDICARE (WNR) MEDICARE (M) PART A July 25, 2007 PART A [id number] [id number] HARMONY MCCALL JR PATIENT MEDICARE (WNR) MEDICARE (M) PART B July 25, 2007 PART B [id number] [id number] HARMONY MCCALL JR PATIENT MEDICARE (WNR) MEDICARE (M) PART A July 25, 2007 PART A [id number] [id number] HARMONY MCCALL JR PATIENT [facility] (OPT[facility]PROF ) [facility] * Jan 24, 2015 [id number] [phone] CAROLE MCCALL SPOUSE Selected Encounter This section includes the information on record at [place] for the Encounter. Date/Time Encounter Type Encounter Description Reason Provider Source Mar 15, 2023 11:00 AM GROUP BEHAVE COUNS 2-10 WEIGHT MGMT & MOVE! PROG - GRP ICD-10-CM E66.3 Overweight NIAMIGUEL IHErin Encounter Template Text not used by [place] Assessments - Encounter Diagnoses This section includes the primary and secondary diagnoses documented for the Encounter. Date/Time Primary/Secondary Diagnosis Diagnosis Name Provider Source Mar 16, 2023 09:30 AM PRIMARY Overweight SANTIAGO KRAMER Mar 16, 2023 09:30 AM SECONDARY Body mass index [BMI] 29.0-29.9, adult SANTIAGO KRAMER Plan of Treatment: Future Appointments (+ 6 months) and Future Tests (+/- 45 days) The Plan of Treatment section includes future care activities for the patient from all [place] treatmentfacilities. This section includes future appointments and future orders which are active, pending or scheduled. Future Appointments This section includes appointments that were scheduled to occur 6 months from the date of the Encounter, up to a maximum of 20 appointments. The data comes from all [place] treatment facilities. Appointment Date/Time Appointment Type Appointme nt Facility Name Mar 27, 2023 10:00 AM AMBULATORY - NONE [facility] Mar 29, 2023 11:00 AM AMBULATORY - NONE [facility] Apr 05, 2023 11:00 AM AMBULATORY - NONE [facility] Apr 10, 2023 10:00 AM AM[facility]UL[facility]ORY - [facility]ONE [facility] Apr 12, 2023 11:00 AM AMBULATORY - NONE [facility] Apr 19, 2023 11:00 AM AMBULATORY - NONE [facility] [facility] Apr 26, 2023 11:00 AM AMBULATORY - NONE [facility] [facility] May 03, 2023 11:00 AM AMBULATORY - NONE [facility] [facility] May 10, 2023 11:00 AM AMBULATORY - NONE [facility] [facility] May 15, 2023 10:00 AM [facility]ONE [facility] May 17, 2023 11:00 AM AMBULATORY - NONE [facility] [facility] May 24, 2023 11:00 AM AMBULATORY - NONE [facility] [facility] May 29, 2023 10:00 AM AMBULATORY - NONE [facility] [place] [facility] May 31, 2023 11:00 AM AMBULATORY - NONE [place] Jun 07, 2023 11:00 AM AMBULATORY - NONE [facility] [facility] Jun 12, 2023 10:00 AM AMBULATORY - NONE [facility] [place] [facility] Jun 14, 2023 11:00 AM AMBULATORY - NONE [place] Jun 21, 2023 11:00 AM AMBULATORY - NONE [facility] Jun 26, 2023 10:00 AM AMBULATORY - NONE [facility] [place] [facility] Jun 28, 2023 11:00 AM AMBULATORY - NONE [facility] Encounter Notes: All associated encounter notes This section contains the clinical notes associated to the Encounter. Date/Time Encounter Note(s) Provider Source Mar 15, 2023 11:00 AM MOVE NOTE: LOCAL TITLE: WEIGHT MANAGEMENT/MOVE! OUTPATIENT GROUP NOTE STANDARD TITLE: MOVE NOTE DATE OF NOTE: MAR 15, 2023@11:00 ENTRY DATE: MAR 16, 2023@09:22:24 AUTHOR: SANTIAGO KRAMER COSIGNER: URGENCY: STATUS: COMPLETED [place] participated in MOVE! Group Counseling via [facility] on March 15, 2023. The [place] was provided with information on [facility] and has given verbal consent to use group [facility] services for their healthcare. The copy of the Group Telehealth Agreement has been mailed to the . The Veterans location/emergency contact number were confirmed. The Emergency Call Relay Center (E911) was available. The visit was locked for security and privacy. [place] identified with 2 identifiers: [ ] Full Name [ ] Address Veterans attended the [facility] MOVE! group session on this date. MOVE! is a program designed to provide education about weight management skills to overweight and obese Veterans. Group members combined to gain 2.5 pounds since their last attended group. Group members began today's session discussing goals for the holiday season. Facilitators led a discussion on tips to maintain weight during the holidays. Group members shared their plans and facilitators encouraged them to focus more on the people and less on the food. Facilitators wished group members a happy holiday and reviewed the schedule after the new year. The next [facility] MOVE! group meeting will be held on March @ 11:00am. Wt: 205.9 lbs [place] lost 0.5 lb since last session attended. Dx: e66.3, z68.29 /johanny/ SANTIAGO KRAMER STAFF DIETITIAN Signed: 03/16/2023 09:30 Receipt Acknowledged By: 03/16/2023 14:38 /johanny/ GORDON PATHAK, Ph.D. CLINICAL PSYCHOLOGIST SANTIAGO KRAMERFIELD
--- OUTSIDE RECORDS SUMMARY | 2024-03-05 06:05 | XMS_ITS | Encounter Summary ---
Author Name [facility] [place] [place] Organization [facility] [place] [facility] [place] Address [address] [place] [id number] Care Team Providers Care Director Of Vendor Management Name Role Phone LEN MENDOZA Primary Care [...] PART B Sep 23, 2014 PART B [id number] HARMONY MCCALL JR PATIENT MEDICARE (WNR) MEDICARE (M) PART A July 25, 2007 PART A [id number] HARMONY CMCALL JR PATIENT MEDICARE (WNR) MEDICARE (M) PART B July 25, 2007 PART B [id number] HARMONY MCCALL JR PATIENT MEDICARE (WNR) MEDICARE (M) PART A July 25, 2007 PART A [id number] HARMONY MCCALL JR PATIENT [facility] MEDICAL EXPENSE (OPT/PROF ) [facility] * Jan 24, 2015 [id number] 18 CAROLE MCCALL SPOUSE Selected Encounter This section includes the information on record at [place] for the Encounter. Date/Time Encounter Type Encounter Description Reason Provider Source Mar 23, 2023 08:00 AM EXERCISE CLASS HEALTH/WELLBEING [facility] ICD-10-CM Z72.3 Lack of physical exercise TERRY COATES [facility] Encounter Template Text not used by [place] Assessments - Encounter Diagnoses This section includes the primary and secondary diagnoses documented for the Encounter. Date/Time Primary/Secondary Diagnosis Diagnosis Name Provider Source Mar 23, 2023 10:27 AM PRIMARY Lack of physical exercise DAMON ONEILL [facility] [place] [facility] Plan of Treatment: Future Appointments (+ 6 months) and Future Tests (+/- 45 days) The Plan of Treatment section includes future care activities for the patient from all [place] treatmentfacilities. This section includes future appointments and future orders which are active, pending or scheduled. Future Appointments This section includes appointments that were scheduled to occur 6 months from the date of the Encounter, up to a maximum of 20 appointments. The data comes from all [place] treatment facilities. Appointment Date/Time Appointment Type Appointme nt Facility Name Mar 27, 2023 10:00 AM AMBULATORY - NONE [facility] [place] [facility] Mar 29, 2023 11:00 AM AMBULATORY - NONE [place] Apr 05, 2023 11:00 AM AMBULATORY - NONE [place] Apr 10, 2023 10:00 AM AMBULATORY - NONE [facility] [place] [facility] Apr 12, 2023 11:00 AM AMBULATORY - NONE [place] Apr 19, 2023 11:00 AM AMBULATORY - NONE [place] Apr 26, 2023 11:00 AM AMBULATORY - NONE [place] May 03, 2023 11:00 AM AMBULATORY - NONE [place] May 10, 2023 11:00 AM AMBULATORY - NONE [place] May 15, 2023 10:00 AM AMBULATORY - NONE [facility] [place] [facility] May 17, 2023 11:00 AM AMBULATORY - NONE [place] May 24, 2023 11:00 AM AMBULATORY - NONE [place] May 29, 2023 10:00 AM AMBULATORY - NONE [facility] [place] [facility] May 31, 2023 11:00 AM AMBULATORY - NONE [place] Jun 07, 2023 11:00 AM AMBULATORY - NONE [place] Jun 12, 2023 10:00 AM AMBULATORY - NONE [facility] [place] [facility] Jun 14, 2023 11:00 AM AMBULATORY - NONE [place] Jun 21, 2023 11:00 AM AMBULATORY - NONE [place] Jun 26, 2023 10:00 AM AMBULATORY - NONE [facility] [place] [facility] Jun 28, 2023 11:00 AM AMBULATORY - NONE [place] Social History: Smoking Status (Most current) and Tobacco Use (All prior to encounter date) This section includes the most current, and the historical, smoking and tobacco- related health factors from the [place] facility where the Encounter took place. Current Smoking Status This section includes the most current smoking, or tobacco-related health factor, from the [place] facility where the Encounter took place. Date/Time Current Smoking Status Comment Facil ity Jan 26, 2023 01:30 PM VA-TOBACCO QUIT 15 YRS OR MORE [facility] [place] [facility] Tobacco Use History This section includes a history of the smoking, or tobacco-related health factors, that were collected on or before the date of the Encounter. The data comes from the [place] facility where the Encounter took place. Date/Time Smoking Status/Tobacco Use Comment F acility Jan 26, 2023 01:30 PM VA-TOBACCO QUIT 15 YRS OR MORE [facility] [place] [facility] Jan 27, 2022 11:00 AM VA-TOBACCO FORMER USER [facility] [place] [facility] Jan 27, 2022 11:00 AM VA-TOBACCO QUIT 15 YRS OR MORE [facility] [place] [facility] Sep 17, 2020 09:00 AM VA-TOBACCO FORMER USER [facility] [place] [facility] Sep 17, 2020 09:00 AM VA-TOBACCO QUIT 15 YRS OR MORE [facility] [place] [facility] Jun 04, 2019 02:57 PM VA-TOBACCO NEVER USED [facility] [place] [facility] Mar 14, 2018 11:23 AM VA-TOBACCO FORMER USER [facility] [place] [facility] Mar 14, 2018 11:23 AM VA-TOBACCO QUIT 15 YRS OR MORE [facility] Apr 04, 2017 12:30 PM QUIT TOBACCO USE > 7 YEARS AGO [facility] Apr 05, 2016 01:02 PM QUIT TOBACCO USE > 7 YEARS AGO quit in 1984 [facility] Encounter Notes: All associated encounter notes This section contains the clinical notes associated to the Encounter. Date/Time Encounter Note(s) Provider Source Mar 23, 2023 10:26 AM GERIATRIC MEDICINE NOTE: LOCAL TITLE: GEROFIT VCM/VVC/VOD TELEHEALTH SUPERVISED EXERCISE STANDARD TITLE: GERIATRIC MEDICINE NOTE DATE OF NOTE: MAR 23, 2023@10:26 ENTRY DATE: MAR 23, 2023@10:26:24 AUTHOR: DOUG ONEILL COSIGNER: URGENCY: STATUS: COMPLETED GEROFIT VVC/VCM/VOD Telehealth Supervised Exercise NOTE Tropic Provided informed consent to receive treatment via Telehealth., Tropic mailed and has been made verbally aware of Telehealth Group [place] practices. 's Location: address on record unless specified below. Emergency Contact: on record unless specified below. Tropic participated remotely in the Gerofit exercise program today through [place] [facility]. Activities were focused on progression of their [...] whole health concerns. /johanny/ VIOLETTA FINK LICENSE OPINION POLLS SURVEY WORKER Signed: 03/23/2023 10:32 DOUG ONEILL [facility]
--- OUTSIDE RECORDS SUMMARY | 2024-03-05 06:05 | XMS_ITS | Encounter Summary ---
Author Name [facility] [place] Organization [place] Address [address] [place] [address] Care Team Providers Care Waiter/Waitress Tavern Name Role Phone LEN MENDOZA Primary Care [...] PART B Sep 23, 2014 PART B [id number] [id number] HARMONY MCCALL JR PATIENT MEDICARE (WNR) MEDICARE (M) PART A July 25, 2007 PART A [id number] [id number] [phone] HARMONY MCCALL JR PATIENT MEDICARE (WNR) MEDICARE (M) PART B July 25, 2007 PART B [id number] [id number] [phone] HARMONY MCCALL JR PATIENT MEDICARE (WNR) MEDICARE (M) PART A July 25, 2007 PART A [id number] [id number] HARMONY MCCALL JR PATIENT [facility] MEDICAL EXPENSE (OPT/PROF ) [facility] * Jan 24, 2015 [id number] 18 CAROLE MCCALL SPOUSE Selected Encounter This section includes the information on record at [place] for the Encounter. Date/Time Encounter Type Encounter Description Reason Provider Source Mar 27, 2023 10:00 AM PT EDUCATION NOC GROUP NUTRITION/DIETETI CS-GROUP ICD-10-CM Z71.3 Dietary counseling and surveillance CURTIS GRACIA Erin Encounter Template Text not used by [place] Assessments - Encounter Diagnoses This section includes the primary and secondary diagnoses documented for the Encounter. Date/Time Primary/Secondary Diagnosis Diagnosis Name Provider Source Mar 27, 2023 12:20 PM PRIMARY Dietary counseling and surveillance CURTIS GRACIA [facility] Plan of Treatment: Future Appointments (+ 6 months) and Future Tests (+/- 45 days) The Plan of Treatment section includes future care activities for the patient from all [place] treatmentfacilities. This section includes future appointments and future orders which are active, pending or scheduled. Future Appointments This section includes appointments that were scheduled to occur 6 months from the date of the Encounter, up to a maximum of 20 appointments. The data comes from all [place] treatment facilities. Appointment Date/Time Appointment Type Appointme nt Facility Name Mar 29, 2023 11:00 AM AMBULATORY - NONE [place] Apr 05, 2023 11:00 AM AMBULATORY - NONE [place] Apr 10, 2023 10:00 AM AMBULATORY - NONE [facility] [place] [facility] Apr 12, 2023 11:00 AM AMBULATORY - NONE [place] Apr 19, 2023 11:00 AM AMBULATORY - NONE [place] Apr 26, 2023 11:00 AM AMBULATORY - NONE [place] May 03, 2023 11:00 AM AMBULATORY - NONE [place] May 10, 2023 11:00 AM AMBULATORY - NONE [place] May 15, 2023 10:00 AM AMBULATORY - NONE [facility] [place] [facility] May 17, 2023 11:00 AM AMBULATORY - NONE [place] May 24, 2023 11:00 AM AMBULATORY - NONE [place] May 29, 2023 10:00 AM AMBULATORY - NONE [place] [facility] [place] [facility] May 31, 2023 11:00 AM AMBULATORY - NONE [place] Jun 07, 2023 11:00 AM AMBULATORY - NONE [place] Jun 12, 2023 10:00 AM AMBULATORY - NONE [facility] [place] [facility] Jun 14, 2023 11:00 AM AMBULATORY - NONE [place] Jun 21, 2023 11:00 AM AMBULATORY - NONE [place] Jun 26, 2023 10:00 AM AMBULATORY - NONE [facility] [facility] Jun 28, 2023 11:00 AM AMBULATORY - NONE [place] Jul 05, 2023 11:00 AM AMBULATORY - NONE [place] Social History: Smoking Status (Most current) and Tobacco Use (All prior to encounter date) This section includes the most current, and the historical, smoking and tobacco- related health factors from the [place] facility where the Encounter took place. Current Smoking Status This section includes the most current smoking, or tobacco-related health factor, from the [place] facility where the Encounter took place. Date/Time Current Smoking Status Comment Facil ity Jan 26, 2023 01:30 PM VA-TOBACCO QUIT 15 YRS OR MORE [facility] [place] [facility] Tobacco Use History This section includes a history of the smoking, or tobacco-related health factors, that were collected on or before the date of the Encounter. The data comes from the [place] facility where the Encounter took place. Date/Time Smoking Status/Tobacco Use Comment F acility Jan 26, 2023 01:30 PM VA-TOBACCO QUIT 15 YRS OR MORE [facility] [place] [facility] Jan 27, 2022 11:00 AM VA-TOBACCO FORMER USER [facility] [place] [facility] Jan 27, 2022 11:00 AM VA-TOBACCO QUIT 15 YRS OR MORE [facility] [facility] Sep 17, 2020 09:00 AM VA-TOBACCO FORMER USER [facility] [place] [facility] Sep 17, 2020 09:00 AM VA-TOBACCO QUIT 15 YRS OR MORE [facility] [place] [facility] Jun 04, 2019 02:57 PM VA-TOBACCO NEVER USED [facility] [place] [facility] Mar 14, 2018 11:23 AM VA-TOBACCO FORMER USER [facility] [place] [facility] Mar 14, 2018 11:23 AM VA-TOBACCO QUIT 15 YRS OR MORE [facility] Apr 04, 2017 12:30 PM QUIT TOBACCO USE > 7 YEARS AGO [facility] Apr 05, 2016 01:02 PM QUIT TOBACCO USE > 7 YEARS AGO quit in 1984 [facility] Encounter Notes: All associated encounter notes This section contains the clinical notes associated to the Encounter. Date/Time Encounter Note(s) Provider Source Mar 27, 2023 10:00 AM NUTRITION GROUP COUNSELING NOTE: LOCAL TITLE: NUTRITION GROUP NOTE STANDARD TITLE: NUTRITION GROUP COUNSELING NOTE DATE OF NOTE: MAR 27, 2023@10:00 ENTRY DATE: MAR 27, 2023@12:17:35 AUTHOR: CUTRIS GRACIA EXP COSIGNER: URGENCY: STATUS: COMPLETED Veterans participated in HTK via [facility] on: 03/27/23. The was provided with information on [facility] and has given verbal consent to use group [facility] services for their healthcare. The copy of the Group Telehealth Agreement has been mailed to the Gleason. The 's location/emergency contact number were confirmed. The Emergency Call Relay Center (E911) was available. The visit was locked for security and privacy. Gleason identified with 2 identifiers: [x] Full Name [x] Address This class was taught by one Registered Dietitian with one co-host dietitian Dx: Z71.3 Time Spent: 60 minutes Participants: 6 Veterans Nutrition Education Topics: Intro to [facility] HTK, Nutrient content of recipe ingredients Cooking demonstration: Cabbage Soup, Baked Chicken Veterans attended the 64th class of the [facility] Healthy Teaching Kitchen. Today we went over the Group Telehealth Agreement, how HTK via [facility] works, food safety, knife safety, and creating delicious food by balancing different basic taste and textures. All Veterans were mailed a copy of the Group Telehealth Agreement and copies of the recipes created during todays class. The recipes today were reviewed and the nutrients contained within the ingredients were explained. We discussed ways to alter the recipes to customize it to the Veterans preference. Next Class: 04/10/23 Participation was: [ ] minimal [ x ] active and appropriate [ ] over-productive /es/ CURTIS GRACIA, MS, RDN, LDN Staff Dietitian Signed: 03/27/2023 12:22 CURTIS GRACIA [facility]
--- OUTSIDE RECORDS SUMMARY | 2024-03-05 06:07 | XMS_ITS ---
Author Name [place] Address [address] [place] [address] Care Team Providers Care Advertising Rep Name Role Phone LEN MENDOZA Primary Care [...] PART B Sep 23, 2014 PART B [id number] HARMONY MCCALL JR PATIENT MEDICARE (WNR) MEDICARE (M) PART A July 25, 2007 PART A [id number] [id number] HARMONY MCCALL JR PATIENT MEDICARE (WNR) MEDICARE (M) PART B July 25, 2007 PART B [id number] [id number] HARMONY MCCALL JR PATIENT MEDICARE (WNR) MEDICARE (M) PART A July 25, 2007 PART A [id number] [id number] HARMONY MCCALL JR PATIENT [facility] MEDICAL EXPENSE (OPT/PROF ) [facility] * Jan 24, 2015 [id number] 18 CAROLE MCCALL SPOUSE Selected Encounter This section includes the information on record at [place] for the Encounter. Date/Time Encounter Type Encounter Description Reason Provider Source Apr 10, 2023 10:00 AM PT EDUCATION NOC GROUP NUTRITION/DIETETI CS-GROUP ICD-10-CM Z71.3 Dietary counseling and surveillance CURTIS GRACIA Erin Encounter Template Text not used by [place] Assessments - Encounter Diagnoses This section includes the primary and secondary diagnoses documented for the Encounter. Date/Time Primary/Secondary Diagnosis Diagnosis Name Provider Source Apr 11, 2023 03:18 PM PRIMARY Dietary counseling and surveillance [facility] Plan of Treatment: Future Appointments (+ 6 months) and Future Tests (+/- 45 days) The Plan of Treatment section includes future care activities for the patient from all [place] treatmentfacilities. This section includes future appointments and future orders which are active, pending or scheduled. Future Appointments This section includes appointments that were scheduled to occur 6 months from the date of the Encounter, up to a maximum of 20 appointments. The data comes from all [place] treatment facilities. Appointment Date/Time Appointment Type Appointme nt Facility Name Apr 12, 2023 11:00 AM AMBULATORY - NONE [place] Apr 19, 2023 11:00 AM AMBULATORY - NONE [place] Apr 26, 2023 11:00 AM AMBULATORY - NONE [place] May 03, 2023 11:00 AM AMBULATORY - NONE [place] May 10, 2023 11:00 AM AMBULATORY - NONE [place] May 15, 2023 10:00 AM AMBULATORY - NONE [facility] [place] [facility] May 17, 2023 11:00 AM AMBULATORY - NONE [place] May 24, 2023 11:00 AM AMBULATORY - NONE [place] May 29, 2023 10:00 AM AMBULATORY - NONE [facility] [place] [facility] May 31, 2023 11:00 AM AMBULATORY - NONE [place] Jun 07, 2023 11:00 AM AMBULATORY - NONE [place] Jun 12, 2023 10:00 AM AMBULATORY - NONE [facility] [place] [facility] Jun 14, 2023 11:00 AM AMBULATORY - NONE [place] Jun 21, 2023 11:00 AM AMBULATORY - NONE [place] Jun 26, 2023 10:00 AM AMBULATORY - NONE [facility] [facility] Jun 28, 2023 11:00 AM AMBULATORY - NONE [place] Jul 05, 2023 11:00 AM AMBULATORY - NONE [place] Jul 19, 2023 11:00 AM AMBULATORY - NONE [place] Jul 23, 2023 02:30 PM AMBULATORY - MEDICINE [facility] [place] [facility] July 26, 2023 11:00 AM AMBULATORY - NONE [place] Social History: Smoking Status (Most current) and Tobacco Use (All prior to encounter date) This section includes the most current, and the historical, smoking and tobacco- related health factors from the [place] facility where the Encounter took place. Current Smoking Status This section includes the most current smoking, or tobacco-related health factor, from the [place] facility where the Encounter took place. Date/Time Current Smoking Status Comment Facil ity Jan 26, 2023 01:30 PM VA-TOBACCO FORMER USER [facility] [place] [facility] Tobacco Use History This section includes a history of the smoking, or tobacco-related health factors, that were collected on or before the date of the Encounter. The data comes from the [place] facility where the Encounter took place. Date/Time Smoking Status/Tobacco Use Comment F acility Jan 26, 2023 01:30 PM VA-TOBACCO QUIT 15 YRS OR MORE [facility] [place] [facility] Jan 27, 2022 11:00 AM VA-TOBACCO FORMER USER [facility] [place] [facility] Jan 27, 2022 11:00 AM VA-TOBACCO QUIT 15 YRS OR MORE [facility] [place] [facility] Sep 17, 2020 09:00 AM VA-TOBACCO FORMER USER [facility] [facility] Sep 17, 2020 09:00 AM VA-TOBACCO QUIT 15 YRS OR MORE [facility] [place] [facility] Jun 04, 2019 02:57 PM VA-TOBACCO NEVER USED [facility] [place] [facility] Mar 14, 2018 11:23 AM VA-TOBACCO FORMER USER [facility] [place] [facility] Mar 14, 2018 11:23 AM VA-TOBACCO QUIT 15 YRS OR MORE [facility] [place] [facility] Apr 04, 2017 12:30 PM QUIT TOBACCO USE > 7 YEARS AGO [facility] Apr 05, 2016 01:02 PM QUIT TOBACCO USE > 7 YEARS AGO quit in 1984 [facility] Encounter Notes: All associated encounter notes This section contains the clinical notes associated to the Encounter. Date/Time Encounter Note(s) Provider Source Apr 10, 2023 10:00 AM NUTRITION GROUP COUNSELING NOTE: LOCAL TITLE: NUTRITION GROUP NOTE STANDARD TITLE: NUTRITION GROUP COUNSELING NOTE DATE OF NOTE: APR 10, 2023@10:00 ENTRY DATE: APR 11, 2023@15:16:45 AUTHOR: CURTIS GRACIA EXP COSIGNER: URGENCY: STATUS: COMPLETED Veterans participated in HTK via [facility] on: 04/10/23. The was provided with information on [facility] and has given verbal consent to use group [facility] services for their healthcare. The copy of the Group Telehealth Agreement has been mailed to the . The Sylvester's location/emergency contact number were confirmed. The Emergency Call Relay Center (E911) was available. The visit was locked for security and privacy. identified with 2 identifiers: [x] Full Name [x] Address This class was taught by one Registered Dietitian with one co-host dietitian Dx: Z71.3 Time Spent: 60 minutes Participants: 6 Veterans Nutrition Education Topics: Intro to [facility] HTK, Nutrient content of recipe ingredients Cooking demonstration: Vegan Cashew Queso, Guacamole, Baked Black Frausto Tacos Veterans attended the 64th class of the [facility] Healthy Teaching Kitchen. Today we went over the Group Telehealth Agreement, how HTK via [facility] works, food safety, knife safety, and [...] it to the Veterans preference. Next Class: 05/15/23 Participation was: [ ] minimal [ x ] active and appropriate [ ] over-productive /es/ CURTIS GRACIA, MS, RDN, LDN Staff Dietitian Signed: 04/11/2023 15:[address] [facility]
--- OUTSIDE RECORDS SUMMARY | 2024-03-05 06:07 | XMS_ITS | Encounter Summary ---
Author Name [facility] [place] Address [address] [place] [address] Care Team Providers Care Last Remodeler Repairer Name Role Phone LEN MENDOZA Primary Care [...] PART B Sep 23, 2014 PART B [id number] [phone] 4 HARMONY MCCALL JR PATIENT MEDICARE (WNR) MEDICARE (M) PART A July 25, 2007 PART A [id number] [id number] HARMONY MCCALL JR PATIENT MEDICARE (WNR) MEDICARE (M) PART B July 25, 2007 PART B [id number] [id number] HARMONY MCCALL JR PATIENT MEDICARE (WNR) MEDICARE (M) PART A July 25, 2007 PART A [id number] [id number] [id number] HARMONY MCCALL JR PATIENT [facility] MEDICAL EXPENSE (OPT/PROF ) [facility] * Jan 24, 2015 [id number] [phone] CAROLE MCCALL SPOUSE Selected Encounter This section includes the information on record at [place] for the Encounter. Date/Time Encounter Type Encounter Description Reason Provider Source Apr 05, 2023 11:00 AM GROUP BEHAVE COUNS 2-10 WEIGHT MGMT & MOVE! PROG - GRP ICD-10-CM E66.09 Other obesity due to excess calories MIGUEL KRAMER Erin Encounter Template Text not used by [place] Assessments - Encounter Diagnoses This section includes the primary and secondary diagnoses documented for the Encounter. Date/Time Primary/Secondary Diagnosis Diagnosis Name Provider Source Apr 05, 2023 11:00 AM PRIMARY Other obesity due to excess calories [...] Appointment Type Appointme nt Facility Name Apr 10, 2023 10:00 AM AMBULATORY - NONE [facility] [place] [facility] Apr 12, 2023 11:00 AM [...] AMBULATORY - NONE [facility] [place] [facility] May 17, 2023 11:00 AM AMBULATORY - NONE [place] May 24, 2023 11:00 AM AMBULATORY - NONE [place] May 29, 2023 10:00 AM AMBULATORY - NONE [facility] [place] [facility] May 31, 2023 11:00 AM AMBULATORY - NONE [place] Jun 07, 2023 11:00 AM AMBULATORY - NONE [place] Jun 12, 2023 10:00 AM AMBULATORY - NONE [facility] [place] [facility] Jun 14, 2023 11:00 AM AMBULATORY - NONE [place] Jun 21, 2023 11:00 AM AMBULATORY - NONE [place] Jun 26, 2023 10:00 AM AMBULATORY - NONE [facility] Jun 28, 2023 11:00 AM AMBULATORY - NONE [place] Jul 05, 2023 11:00 AM AMBULATORY - NONE [place] Jul 19, 2023 11:00 AM AMBULATORY - NONE [place] Jul 23, 2023 02:30 PM AMBULATORY - MEDICINE [facility]
--- OUTSIDE RECORDS SUMMARY | 2024-03-05 06:07 | XMS_ITS | Encounter Summary ---
Author Name [facility] [place] Organization [place] Address [address] [place] [id number] Care Team Providers Care Blunger Name Role Phone LEN MENDOZA Primary Care [...] PART B Sep 23, 2014 PART B [id number] HARMONY MCCALL JR PATIENT MEDICARE (WNR) MEDICARE (M) PART A July 25, 2007 PART A [id number] HARMONY MCCALL JR PATIENT MEDICARE (WNR) MEDICARE (M) PART B July 25, 2007 PART B [id number] HARMONY MCCALL JR PATIENT MEDICARE (WNR) MEDICARE (M) PART A July 25, 2007 PART A [id number] HARMONY MCCALL JR PATIENT [facility] MED[facility] EXPENSE (OPT/PROF ) [facility] * Jan 24, 2015 [id number] CAROLE MCCALL SPOUSE Selected Encounter This section includes the information on record at [place] for the Encounter. Date/Time Encounter Type Encounter Description Reason Provider Source Mar 28, 2023 08:00 AM EXERCISE CLASS HEALTH/WELLBEING SRVS ICD-10-CM Z72.3 Lack of physical exercise DAMON ONEILL IHE Encounter Template Text not used by [place] Assessments - Encounter Diagnoses This section includes the primary and secondary diagnoses documented for the Encounter. Date/Time Primary/Secondary Diagnosis Diagnosis Name Provider Source Mar 28, 2023 12:41 PM PRIMARY Lack of physical exercise DAMON ONEILL [place] [facility] [place] [facility] Plan of Treatment: Future Appointments (+ 6 months) and Future Tests (+/- 45 days) The Plan of Treatment section includes future care activities for the patient from all [place] treatmentfacilities. This section includes future appointments and future orders which are active, pending or scheduled. Future Appointments This section includes appointments that were scheduled to occur 6 months from the date of the Encounter, up to a maximum of 20 appointments. The data comes from all [place] treatment facilities. Appointment Date/Time Appointment Type Appointme nt Facility Name Mar 29, 2023 11:00 AM AMBULATORY - NONE [place] Apr 05, 2023 11:00 AM AMBULATORY - NONE [place] Apr 10, 2023 10:00 AM AMBULATORY - NONE [facility] [place] [facility] Apr 12, 2023 11:00 AM [...] AMBULATORY - NONE [facility] [place] [facility] May 17, 2023 11:00 AM AMBULATORY - NONE [place] May 24, 2023 11:00 AM AMBULATORY - NONE [place] May 29, 2023 10:00 AM AMBULATORY - NONE [facility] [place] [facility] May 31, 2023 11:00 AM AMBULATORY - NONE [place] Jun 07, 2023 11:00 AM AMBULATORY - NONE [place] Jun 12, 2023 10:00 AM AMBULATORY - NONE [facility] [place] [facility] Jun 14, 2023 11:00 AM AMBULATORY - NONE [place] Jun 21, 2023 11:00 AM AMBULATORY - NONE [place] Jun 26, 2023 10:00 AM AMBULATORY - NONE [facility] [place] [facility] Jun 28, 2023 11:00 AM AMBULATORY - NONE [place] Jul 05, 2023 11:00 AM AMBULATORY - NONE [place] Social History: Smoking Status (Most current) and Tobacco Use (All prior to encounter date) This section includes the most current, and the historical, smoking and tobacco- related health factors from the [place] facility where the Encounter took place. Current Smoking Status This section includes the most current smoking, or tobacco-related health factor, from the [place] facility where the Encounter took place. Date/Time Current Smoking Status Comment Facil ity Jan 26, 2023 01:30 PM VA-TOBACCO FORMER USER [facility] [place] [facility] Tobacco Use History This section includes a history of the smoking, or tobacco-related health factors, that were collected on or before the date of the Encounter. The data comes from the [place] facility where the Encounter took place. Date/Time Smoking Status/Tobacco Use Comment F acility Jan 26, 2023 01:30 PM VA-TOBACCO QUIT 15 YRS OR MORE [facility] [place] [facility] Jan 27, 2022 11:00 AM VA-TOBACCO FORMER USER [facility] [place] [facility] Jan 27, 2022 11:00 AM VA-TOBACCO QUIT 15 YRS OR MORE [facility] [place] [facility] Sep 17, 2020 09:00 AM VA-TOBACCO FORMER USER [facility] [place] [facility] Sep 17, 2020 09:00 AM VA-TOBACCO QUIT 15 YRS OR MORE [facility] [place] [facility] Jun 04, 2019 02:57 PM VA-TOBACCO NEVER USED [facility] [place] [facility] Mar 14, 2018 11:23 AM VA-TOBACCO FORMER USER [facility] [place] [facility] Mar 14, 2018 11:23 AM VA-TOBACCO QUIT 15 YRS OR MORE [facility] [place] [facility] Apr 04, 2017 12:30 PM QUIT TOBACCO USE > 7 YEARS AGO [facility] Apr 05, 2016 01:02 PM QUIT TOBACCO USE > 7 YEARS AGO quit in 1984 [facility] Encounter Notes: All associated encounter notes This section contains the clinical notes associated to the Encounter. Date/Time Encounter Note(s) Provider Source Mar 28, 2023 12:39 PM GERIATRIC MEDICINE NOTE: LOCAL TITLE: GEROFIT VCM/VVC/VOD TELEHEALTH SUPERVISED EXERCISE STANDARD TITLE: GERIATRIC MEDICINE NOTE DATE OF NOTE: MAR 28, 2023@12:39 ENTRY DATE: MAR 28, 2023@12:40:07 AUTHOR: DOUG ONEILL COSIGNER: URGENCY: STATUS: COMPLETED GEROFIT VVC/VCM/VOD Telehealth Supervised Exercise NOTE Provided informed consent to receive treatment via Telehealth., [place] mailed and has been made verbally aware of Telehealth Group [place] practices. 's Location: address on record unless specified below. Emergency Contact: on record unless specified below. participated remotely in the Gerofit exercise program today through [place] Virtual Retail Sales Advisor. Activities were focused on progression of their individual exercise prescription (cardiorespiratory fitness training, strength training, etc.) and group-based exercise sessions to include, but not limited to: flexibility training, balance training & functional circuit training. Exercise participation was supervised [facility] and any questions/concerns were addressed with the patient. Modifications were made to programming as appropriate to suit Veterans individual needs, preferences, and whole health concerns. /johanny/ VIOLETTA FINK LICENSE SPEED BELT SANDER TENDER Signed: 03/28/2023 12:47 DOUG ONEILL [facility]
--- OUTSIDE RECORDS SUMMARY | 2024-03-05 06:07 | XMS_ITS | Encounter Summary ---
Author Name [facility] [place] Organization [place] Address [address] [place] [address] Care Team Providers Care Career Education Teacher Name Role Phone LEN MENDOZA Primary Care [...] PART B Sep 23, 2014 PART B [id number] [id number] [phone] 4 HARMONY MCCALL JR PATIENT MEDICARE (WNR) MEDICARE (M) PART A July 25, 2007 PART A [id number] [id number] HARMONY MCCALL JR PATIENT MEDICARE (WNR) MEDICARE (M) PART B July 25, 2007 PART B [id number] [id number] HARMONY MCCALL JR PATIENT MEDICARE (WNR) MEDICARE (M) PART A July 25, 2007 PART A [id number] [phone] 4 HARMONY MCCALL JR PATIENT COUNT INCLUDES [facility] MEDICAL EXPENSE (OPT/PROF ) [facility] * Jan 24, 2015 [id number] [phone] CAROLE MCCALL SPOUSE Selected Encounter This section includes the information on record at [place] for the Encounter. Date/Time Encounter Type Encounter Description Reason Provider Source Mar 29, 2023 11:00 AM GROUP BEHAVE COUNS 2-10 WEIGHT MGMT & MOVE! PROG - GRP ICD-10-CM E66.3 Overweight NIAMIGUEL Jarvis IHErin Encounter Template Text not used by [place] Assessments - Encounter Diagnoses This section includes the primary and secondary diagnoses documented for the Encounter. Date/Time Primary/Secondary Diagnosis Diagnosis Name Provider Source Mar 30, 2023 11:11 AM PRIMARY Overweight NIASANTIAGO Plan of Treatment: Future Appointments (+ 6 [...] Appointment Type Appointme nt Facility Name Apr 05, 2023 11:00 AM AMBULATORY - NONE [place] Apr 10, 2023 10:00 AM AMBULATORY - NONE [facility] [place] [facility] Apr 12, 2023 11:00 AM [...] AMBULATORY - NONE [facility] [place] [facility] May 17, 2023 11:00 AM AMBULATORY - NONE [place] May 24, 2023 11:00 AM AMBULATORY - NONE [place] May 29, 2023 10:00 AM AMBULATORY - NONE [facility] [place] [facility] May 31, 2023 11:00 AM AMBULATORY - NONE [place] Jun 07, 2023 11:00 AM AMBULATORY - NONE [place] Jun 12, 2023 10:00 AM AMBULATORY - NONE [facility] [place] [facility] Jun 14, 2023 11:00 AM AMBULATORY - NONE [place] Jun 21, 2023 11:00 AM AMBULATORY - NONE [place] Jun 26, 2023 10:00 AM AMBULATORY - NONE [facility] [place] [facility] Jun 28, 2023 11:00 AM AMBULATORY - NONE [place] Jul 05, 2023 11:00 AM AMBULATORY - NONE [place] Jul 19, 2023 11:00 AM AMBULATORY - NONE [place] Vital Signs: All taken on the encounter date This section contains inpatient and outpatient Vital Signs collected on the date of the Encounter. Date/Time Temperature Pulse Blood Pressure Respiratory Rate SP02 Pain Height Weight Body Mass Index Source Mar 29, 2023 11:17 AM 207.2 lb 32 [place] Encounter Notes: All associated encounter notes This section contains the clinical notes associated to the Encounter. Date/Time Encounter Note(s) Provider Source Mar 29, 2023 11:00 AM MOVE NOTE: LOCAL TITLE: WEIGHT MANAGEMENT/MOVE! OUTPATIENT GROUP NOTE STANDARD TITLE: MOVE NOTE DATE OF NOTE: MAR 29, 2023@11:00 ENTRY DATE: MAR 30, 2023@10:33:13 AUTHOR: SANTIAGO KRAMER COSIGNER: URGENCY: STATUS: COMPLETED [place] participated in MOVE! Group Counseling via [facility] on March 29, 2023. The [place] was provided with information on [facility] and has given verbal consent to use group VV services for their healthcare. The copy of the Group Telehealth Agreement has been mailed to the [place]. The Veterans location/emergency contact number were confirmed. The Emergency Call Relay Center ([phone]) was available. The visit was locked for security and privacy. identified with 2 identifiers: [ ] Full Name [ ] Address Veterans attended the [facility] MOVE! group session on this date. MOVE! is a program designed to provide education about weight management skills to overweight and obese Veterans. Facilitators welcomed group members back to the new year. New group members were introduced and group members took the time to introduce themselves. Group members shared their success and struggles with weight loss. Facilitators encouraged group members to set goals for the new if they wanted. Some group members shared their upcoming goals. The next [facility] MOVE! group meeting will be held on March @ 11:00am. Wt: 207.2 lbs Dx: e66.3, z68.29 /johanny/ SANTIAGO KRAMER STAFF DIETITIAN Signed: 03/30/2023 11:11 Receipt Acknowledged By: 04/10/2023 15:12 /johanny/ GORDON PATHAK, Ph.D. CLINICAL PSYCHOLOGIST [place] [place]
--- OUTSIDE RECORDS SUMMARY | 2024-03-05 06:07 | XMS_ITS | Encounter Summary ---
Author Name [place] Organization [place] Address [address] [place] [address] Care Team Providers Care Cigar Patcher Name Role Phone LEN MENDOZA Primary Care [...] PART B Sep 23, 2014 PART B [id number] [id number] [phone] 4 HARMONY MCCALL JR PATIENT MEDICARE (WNR) MEDICARE (M) PART A July 25, 2007 PART A [id number] [id number] HARMONY MCCALL JR PATIENT MEDICARE (WNR) MEDICARE (M) PART B July 25, 2007 PART B [id number] [id number] HARMONY MCCALL JR PATIENT MEDICARE (WNR) MEDICARE (M) PART A July 25, 2007 PART A [id number] [id number] HARMONY MCCALL JR PATIENT [facility] MEDICAL EXPENSE (OPT/PROF ) [facility] * Jan 24, 2015 [id number] CAROLE MCCALL SPOUSE Selected Encounter This section includes the information on record at [place] for the Encounter. Date/Time Encounter Type Encounter Description Reason Provider Source Apr 04, 2023 08:00 AM EXERCISE CLASS HEALTH/WELLBEING SRVS ICD-10-CM Z72.3 Lack of physical exercise DAMON ONEILL IHE Encounter Template Text not used by [place] Assessments - Encounter Diagnoses This section includes the primary and secondary diagnoses documented for the Encounter. Date/Time Primary/Secondary Diagnosis Diagnosis Name Provider Source Apr 04, 2023 11:00 AM PRIMARY Lack of physical exercise DAMON ONEILL [place] [facility] [place] [facility] Plan of Treatment: Future Appointments (+ 6 months) and Future Tests (+/- 45 days) The Plan of Treatment section includes future care activities for the patient from all [place] treatmentfacilities. This section includes future appointments and future orders which are active, pending or scheduled. Future Appointments This section includes appointments that were scheduled to occur 6 months from the date of the Encounter, up to a maximum of 20 appointments. The data comes from all [place] treatment facilities. Appointment Date/Time Appointment Type Appointme nt Facility Name Apr 05, 2023 11:00 AM AMBULATORY - NONE [place] Apr 10, 2023 10:00 AM AMBULATORY - NONE [facility] [place] [facility] Apr 12, 2023 11:00 [...] [facility] [place] [facility] Jun 28, 2023 11:00 AM AMBULATORY - NONE [place] Jul 05, 2023 11:00 AM AMBULATORY - NONE [place] Jul 19, 2023 11:00 AM AMBULATORY - NONE [place] Social History: Smoking Status (Most current) and Tobacco Use (All prior to encounter date) This section includes the most current, and the historical, smoking and tobacco- related health factors from the [place] facility where the Encounter took place. Current Smoking Status This section includes the most current smoking, or tobacco-related health factor, from the [place] facility where the Encounter took place. Date/Time Current Smoking Status Comment Facil ity Jan 26, 2023 01:30 PM VA-TOBACCO QUIT 15 YRS OR MORE [place] [facility] [place] [facility] Tobacco Use History This section includes a history of the smoking, or tobacco-related health factors, that were collected on or before the date of the Encounter. The data comes from the [place] facility where the Encounter took place. Date/Time Smoking Status/Tobacco Use Comment F acility Jan 26, 2023 01:30 PM VA-TOBACCO QUIT 15 YRS OR MORE [facility] [place] [facility] Jan 27, 2022 11:00 AM VA-TOBACCO FORMER USER [facility] [place] [facility] Jan 27, 2022 11:00 AM VA-TOBACCO QUIT 15 YRS OR MORE [facility] [place] [facility] Sep 17, 2020 09:00 AM VA-TOBACCO FORMER USER [facility] [place] [facility] Sep 17, 2020 09:00 AM VA-TOBACCO QUIT 15 YRS OR MORE [facility] [place] [facility] Jun 04, 2019 02:57 PM VA-TOBACCO NEVER USED [facility] [place] [facility] Mar 14, 2018 11:23 AM VA-TOBACCO FORMER USER [facility] [place] [facility] Mar 14, 2018 11:23 AM VA-TOBACCO QUIT 15 YRS OR MORE [facility] Apr 04, 2017 12:30 PM QUIT TOBACCO USE > [facility] A[facility] Apr 05, 2016 01:02 PM QUIT TOBACCO USE > 7 YEARS AGO quit in 1984 [facility] Encounter Notes: All associated encounter notes This section contains the clinical notes associated to the Encounter. Date/Time Encounter Note(s) Provider Source Apr 04, 2023 10:56 AM GERIATRIC MEDICINE NOTE: LOCAL TITLE: GEROFIT VCM/VVC/VOD TELEHEALTH SUPERVISED EXERCISE STANDARD TITLE: GERIATRIC MEDICINE NOTE DATE OF NOTE: APR 04, 2023@10:56 ENTRY DATE: APR 04, 2023@10:56:47 AUTHOR: DOUG ONEILL COSIGNER: URGENCY: STATUS: COMPLETED GEROFIT VVC/VCM/VOD Telehealth Supervised Exercise NOTE Provided informed consent to receive treatment via Telehealth., mailed and has been made verbally aware of [facility] [place] practices. 's Location: address on record unless specified below. Emergency Contact: on record unless specified below. [place] participated remotely in the Gerofit exercise program today through [place] Virtual Residential Monitor. Activities were focused on progression of their [...] whole health concerns. /johanny/ VIOLETTA FINK LICENSE LOAN EXPEDITOR Signed: 04/04/2023 11:08 DOUG ONEILL [facility]
--- OUTSIDE RECORDS SUMMARY | 2024-03-05 06:08 | XMS_ITS | Encounter Summary ---
Author Name [place] Address [address] [place] [id number] Care Team Providers Care Mangle Roll Operator Name Role Phone LEN MENDOZA Primary Care [...] PART B Sep 23, 2014 PART B [id number] [id number] HARMONY MCCALL JR PATIENT MEDICARE (WNR) MEDICARE (M) PART A July 25, 2007 PART A [id number] [id number] HARMONY MCCALL JR PATIENT MEDICARE (WNR) MEDICARE (M) PART B July 25, 2007 PART B [id number] [id number] HARMONY MCCALL JR PATIENT MEDICARE (WNR) MEDICARE (M) PART A July 25, 2007 PART A [id number] [id number] HARMONY MCCALL JR PATIENT [facility] MEDICAL EXPENSE (OPT/PROF ) [facility] * Jan 24, 2015 [id number] CAROLE MCCALL SPOUSE Selected Encounter This section includes the information on record at [place] for the Encounter. Date/Time Encounter Type Encounter Description Reason Provider Source Apr 18, 2023 08:00 AM EXERCISE CLASS HEALTH/WELLBEING SRVS ICD-10-CM Z72.3 Lack of physical exercise DAMON ONEILL IHE Encounter Template Text not used by CT Assessments - Encounter Diagnoses This section includes the primary and secondary diagnoses documented for the Encounter. Date/Time Primary/Secondary Diagnosis Diagnosis Name Provider Source Apr 18, 2023 10:49 AM PRIMARY Lack of physical exercise DAMON ONEILL [facility] [place] [facility] Plan of Treatment: Future Appointments (+ 6 months) and Future Tests (+/- 45 days) The Plan of Treatment section includes future care activities for the patient from all [place] treatmentfacilities. This section includes future appointments and future orders which are active, pending or scheduled. Future Appointments This section includes appointments that were scheduled to occur 6 months from the date of the Encounter, up to a maximum of 20 appointments. The data comes from all [place] treatment facilities. Appointment Date/Time Appointment Type Appointme nt Facility Name Apr 19, 2023 11:00 AM AMBULATORY - NONE [place] Apr 26, 2023 11:00 AM AMBULATORY - NONE [place] May 03, 2023 11:00 AM AMBULATORY - NONE [place] May 10, 2023 11:00 AM AMBULATORY - NONE [place] May 15, 2023 10:00 AM AMBULATORY - NONE [facility] [place] [facility] May 17, 2023 11:00 AM AMBULATORY - NONE [place] May 24, 2023 11:00 AM AMBULATORY - NONE [place] May 29, 2023 10:00 AM AMBULATORY - NONE [facility] [place] [facility] May 31, 2023 11:00 AM AMBULATORY - NONE [place] Jun 07, 2023 11:00 AM AMBULATORY - NONE [place] Jun 12, 2023 10:00 AM AMBULATORY - NONE [facility] [place] [facility] Jun 14, 2023 11:00 AM AMBULATORY - NONE [place] Jun 21, 2023 11:00 AM AMBULATORY - NONE [place] Jun 26, 2023 10:00 AM AMBULATORY - NONE [facility] [place] [facility] Jun 28, 2023 11:00 AM AMBULATORY - NONE [place] Jul 05, 2023 11:00 AM AMBULATORY - NONE [place] Jul 19, 2023 11:00 AM AMBULATORY - NONE [place] Jul 23, 2023 02:30 PM AMBULATORY - MEDICINE [facility] [place] [facility] July 26, 2023 11:00 AM AMBULATORY - NONE [place] July 31, 2023 10:00 AM AMBULATORY - NONE [facility] [place] [facility] Social History: Smoking Status (Most current) and Tobacco Use (All prior to encounter date) This section includes the most current, and the historical, smoking and tobacco- related health factors from the [place] facility where the Encounter took place. Current Smoking Status This section includes the most current smoking, or tobacco-related health factor, from the [place] facility where the Encounter took place. Date/Time Current Smoking Status Comment Facil ity Jan 26, 2023 01:30 PM VA-TOBACCO FORMER USER [facility] [place] [facility] Tobacco Use History This section includes a history of the smoking, or tobacco-related health factors, that were collected on or before the date of the Encounter. The data comes from the [place] facility where the Encounter took place. Date/Time Smoking Status/Tobacco Use Comment F acility Jan 26, 2023 01:30 PM VA-TOBACCO QUIT 15 YRS OR MORE [facility] [place] [facility] Jan 27, 2022 11:00 AM VA-TOBACCO FORMER USER [facility] [place] [facility] Jan 27, 2022 11:00 AM VA-TOBACCO QUIT 15 YRS OR MORE [facility] [place] [facility] Sep 17, 2020 09:00 AM VA-TOBACCO FORMER USER [facility] [place] [facility] Sep 17, 2020 09:00 AM VA-TOBACCO QUIT 15 YRS OR MORE [facility] [place] [facility] Jun 04, 2019 02:57 PM VA-TOBACCO NEVER USED [facility] [place] [facility] Mar 14, 2018 11:23 AM VA-TOBACCO FORMER USER [facility] [place] [facility] Mar 14, 2018 11:23 AM VA-TOBACCO QUIT 15 YRS OR MORE [facility] Apr 04, 2017 12:30 PM QUIT TOBACCO USE > 7 YEARS AGO [facility] Apr 05, 2016 01:02 PM QUIT TOBACCO USE > 7 YEARS AGO quit in 1984 [facility] Encounter Notes: All associated encounter notes This section contains the clinical notes associated to the Encounter. Date/Time Encounter Note(s) Provider Source Apr 18, 2023 10:47 AM GERIATRIC MEDICINE NOTE: LOCAL TITLE: GEROFIT VCM/VVC/VOD TELEHEALTH SUPERVISED EXERCISE STANDARD TITLE: GERIATRIC MEDICINE NOTE DATE OF NOTE: APR 18, 2023@10:47 ENTRY DATE: APR 18, 2023@10:47:57 AUTHOR: DOUG ONEILL COSIGNER: URGENCY: STATUS: COMPLETED GEROFIT VVC/VCM/VOD Telehealth Supervised Exercise NOTE [place] Provided informed consent to receive treatment via Telehealth., [place] mailed and has been made verbally aware of Telehealth Group [place] practices. [place]'s Location: address on record unless specified below. Emergency Contact: on record unless specified below. [place] participated remotely in the Gerofit exercise program today through [place] Virtual Director Of Rehabilitative Services. Activities were focused on progression of their [...] whole health concerns. /johanny/ VIOLETTA FINK LICENSE HEALTH EDUCATION DIRECTOR Signed: 04/18/2023 10:55 DOUG ONEILL [facility]
--- OUTSIDE RECORDS SUMMARY | 2024-03-05 06:08 | XMS_ITS | Encounter Summary ---
Author Name [facility] [place] [facility] [place] Organization [facility] [facility] [place] Address [address] [place] [id number] Care Team Providers Care Affirmative Action Specialist Name Role Phone LEN MENDOZA Primary [...] PART B Sep 23, 2014 PART B [id number] HARMONY MCCALL JR PATIENT MEDICARE (WNR) MEDICARE (M) PART A July 25, 2007 PART A [id number] HARMONY MCCALL JR PATIENT MEDICARE (WNR) MEDICARE (M) PART B July 25, 2007 PART B [id number] [phone] HARMONY MCCALL JR PATIENT MEDICARE (WNR) MEDICARE (M) PART A July 25, 2007 PART A [id number] HARMONY MCCALL JR PATIENT [facility] MEDICAL EXPENSE (OPT/PROF ) [facility] * Jan 24, 2015 [id number] 18 CAROLE MCCALL SPOUSE Selected Encounter This section includes the information on record at OR for the Encounter. Date/Time Encounter Type Encounter Description Reason Provider Source Apr 12, 2023 11:00 AM WEIGHT MGMT CLASS WEIGHT MGMT & MOVE! PROG - GRP ICD-10-CM Z68.29 Body mass index [BMI] 29.0-29.9, adult GORDON PATHAK [facility] Encounter Template Text not used by [facility] Assessments - Encounter Diagnoses This section includes the primary and secondary diagnoses documented for the Encounter. Date/Time Primary/Secondary Diagnosis Diagnosis Name Provider Source Apr 14, 2023 02:02 PM PRIMARY Body mass index [BMI] 29.0-29.9, adult GORDON PATHAK Apr 14, 2023 02:02 PM SECONDARY Overweight GORDON PATHAK Plan of Treatment: Future Appointments (+ 6 months) and Future Tests (+/- 45 days) The Plan of Treatment section includes future care activities for the patient from all [place] treatmentfacilities. This section includes future appointments and future orders which are active, pending or scheduled. Future Appointments This section includes appointments that were scheduled to occur 6 months from the date of the Encounter, up to a maximum of 20 appointments. The data comes from all [place] treatment facilities. Appointment Date/Time Appointment Type Appointme nt Facility Name Apr 19, 2023 11:00 AM AMBULATORY - NONE [place] Apr 26, 2023 11:00 AM AMBULATORY - NONE [place] May 03, 2023 11:00 AM AMBULATORY - NONE [place] May 10, 2023 11:00 AM AMBULATORY - NONE [place] May 15, 2023 10:00 AM [facility] [place] [facility] May 17, 2023 11:00 AM AMBULATORY - NONE [place] May 24, 2023 11:00 AM AMBULATORY - NONE [place] May 29, 2023 10:00 AM AM[facility]UL[facility]ORY [facility]ONE [facility] [place] [facility] May 31, 2023 11:00 AM AMBULATORY - NONE [place] Jun 07, 2023 11:00 AM AMBULATORY - NONE [place] Jun 12, 2023 10:00 AM AM[facility]UL[facility]ORY [facility]ONE [facility] [place] [facility] Jun 14, 2023 11:00 AM AMBULATORY - NONE [place] Jun 21, 2023 11:00 AM AMBULATORY - NONE [place] Jun 26, 2023 10:00 AM AM[facility]ULATORY [facility]ONE [facility] [place] [facility] Jun 28, 2023 11:00 AM AMBULATORY - NONE [place] Jul 05, 2023 11:00 AM AMBULATORY - NONE [place] Jul 19, 2023 11:00 AM AMBULATORY - NONE [place] Jul 23, 2023 02:30 PM AMBULATORY [facility]ICINE [facility] [place] [facility] July 26, 2023 11:00 AM AMBULATORY - NONE [place] July 31, 2023 10:00 AM AMBULATORY - NONE [facility] [place] [facility] Vital Signs: All taken on the encounter date This section contains inpatient and outpatient Vital Signs collected on the date of the Encounter. Date/Time Temperature Pulse Blood Pressure Respiratory Rate SP02 Pain Height Weight Body Mass Index Source Apr 12, 2023 11:21 AM 207 lb 32 [place] Encounter Notes: All associated encounter notes This section contains the clinical notes associated to the Encounter. Date/Time Encounter Note(s) Provider Source Apr 14, 2023 01:57 PM MOVE NOTE: LOCAL TITLE: WEIGHT MANAGEMENT/MOVE! OUTPATIENT GROUP NOTE STANDARD TITLE: MOVE NOTE DATE OF NOTE: APR 14, 2023@13:57 ENTRY DATE: APR 14, 2023@13:57:15 AUTHOR: GORDON PATHAK COSIGNER: URGENCY: STATUS: COMPLETED participated in MOVE! Group Counseling via VV on April 12, 2023. The was provided with information on [facility] and has given verbal consent to use group VVC services for their healthcare. The copy of the Group Telehealth Agreement has been mailed to the [place]. The Veterans location/emergency contact number were confirmed. The Emergency Call Relay Center (E911) was available. The visit was locked for security and privacy. [place] identified with 2 identifiers: [ ] Full Name [ ] Address Veterans attended the [facility] MOVE! group session on this date. MOVE! is a program designed to provide education about weight management skills to overweight and obese Veterans. Group members combined to gain 5.1 pounds since their last attended group. Group members began today's session asking about the health of one of the group members who was recently hospitalized due to heart problems. The [place] later joined the group to tell them that he is recovering and will be released from the hospital to return home later today. Veterans wanted to discuss the importance of eating three meals a day or is it ok to eat fewer meals. Group facilitators emphasized the importance of reducing high caloric foods and eating when one is hungry. The group talked about fiber and the foods which contain higher amounts of this nutrient. Group members shared their individual goals for the next week. The next [facility] MOVE! group meeting will be held on March @ 11:00am. [place]'s reported weight was 207.0 lbs. and lost 0.9 pounds since last group attended. Dx: Overweight Obesity E66.3 BMI 29.0-29.9 The session lasted for 1 hour in duration. /johanny/ GORDON PATHAK, Ph.D. CLINICAL PSYCHOLOGIST Signed: 04/14/2023 14:07 Receipt Acknowledged By: 04/17/2023 10:47 /johanny/ SANTIAGO KRAMER STAFF DIETITIAN GORDON PATHAK
--- OUTSIDE RECORDS SUMMARY | 2024-03-05 06:10 | XMS_ITS | Encounter Summary ---
Author Name [facility] [place] [facility] [place] Address [address] [place] [id number] Care Team Providers Care [employer] Safety Engineer Name Role Phone LEN MENDOZA Primary [...] PART B Sep 23, 2014 PART B [id number] HARMONY MCCALL JR PATIENT MEDICARE (WNR) MEDICARE (M) PART A July 25, 2007 PART A [id number] HARMONY MCCALL JR PATIENT MEDICARE (WNR) MEDICARE (M) PART B July 25, 2007 PART B [id number] [phone] HARMONY MCCALL JR PATIENT MEDICARE (WNR) MEDICARE (M) PART A July 25, 2007 PART A [id number] HARMONY MCCALL JR PATIENT [facility] MEDICAL EXPENSE (OPT/PROF ) [facility] * Jan 24, 2015 [id number] CAROLE MCCALL SPOUSE Selected Encounter This section includes the information on record at [place] for the Encounter. Date/Time Encounter Type Encounter Description Reason Provider Source Apr 27, 2023 10:56 AM EXERCISE CLASS HEALTH/WELLBEING [facility] ICD-10-CM Z72.3 Lack of physical exercise JANIE LAZCANO [facility] Encounter Template Text not used by [place] Assessments - Encounter Diagnoses This section includes the primary and secondary diagnoses documented for the Encounter. Date/Time Primary/Secondary Diagnosis Diagnosis Name Provider Source Apr 27, 2023 11:29 AM PRIMARY Lack of physical exercise JANIE LAZCANO [facility] [place] [facility] Plan of Treatment: Future Appointments [...] Date/Time Appointment Type Appointme nt Facility Name May 03, 2023 11:00 AM AMBULATORY - NONE [place] May 10, 2023 11:00 AM AMBULATORY - NONE [place] May 15, 2023 10:00 AM AM[facility] NONE [facility] [place] [facility] May 17, 2023 11:00 AM AMBULATORY - NONE [place] May 24, 2023 11:00 AM AMBULATORY - NONE [place] May 29, 2023 10:00 AM AMBULATORY - NONE [facility] [place] [facility] May 31, 2023 11:00 AM AMBULATORY - NONE [place] Jun 07, 2023 11:00 AM AMBULATORY - NONE [place] Jun 12, 2023 10:00 AM AMBULATORY - NONE [facility] [place] [facility] Jun 14, 2023 11:00 AM AMBULATORY - NONE [place] Jun 21, 2023 11:00 AM AMBULATORY - NONE [place] Jun 26, 2023 10:00 AM AMBULATORY - NONE [facility] [place] [facility] Jun 28, 2023 11:00 AM AMBULATORY - NONE [place] Jul 05, 2023 11:00 AM AMBULATORY - NONE [place] Jul 19, 2023 11:00 AM AMBULATORY - NONE [place] Jul 23, 2023 02:30 PM AMBULATORY - MEDICINE [facility] [place] [facility] July 26, 2023 11:00 AM AMBULATORY - NONE [place] July 31, 2023 10:00 AM AMBULATORY - NONE [facility] [place] [facility] August 02, 2023 11:00 AM AMBULATORY - NONE [place] August 09, 2023 11:00 AM AM[facility]ULATORY - NONE [place] [...] VA-TOBACCO FORMER USER [facility] [place] [facility] Tobacco Use History This section includes a history of the smoking, or tobacco-related health factors, that were collected on or before the date of the Encounter. The data comes from the [place] facility where the Encounter took place. Date/Time Smoking Status/Tobacco Use Comment F acility Jan 26, 2023 01:30 PM VA-TOBACCO QUIT 15 YRS OR MORE [facility] [place] [facility] Jan 27, 2022 11:00 AM VA-TOBACCO FORMER USER [facility] [place] [facility] Jan 27, 2022 11:00 AM VA-TOBACCO QUIT 15 YRS OR MORE [facility] [place] [facility] Sep 17, 2020 09:00 AM VA-TOBACCO FORMER USER [facility] [place] [facility] Sep 17, 2020 09:00 AM VA-TOBACCO QUIT 15 YRS OR MORE [facility] [place] [facility] Jun 04, 2019 02:57 PM VA-TOBACCO NEVER USED [facility] [place] [facility] Mar 14, 2018 11:23 AM VA-TOBACCO FORMER USER [facility] [place] [facility] Mar 14, 2018 11:23 AM VA-TOBACCO QUIT 15 YRS OR MORE [facility] [place] [facility] Apr 04, 2017 12:30 PM QUIT TOBACCO USE > 7 YEARS AGO [facility] Apr 05, 2016 01:02 PM QUIT TOBACCO USE > 7 YEARS AGO quit in 1984 [facility] Encounter Notes: All associated encounter notes This section contains the clinical notes associated to the Encounter. Date/Time Encounter Note(s) Provider Source Apr 27, 2023 11:25 AM GERIATRIC MEDICINE NOTE: LOCAL TITLE: GEROFIT VCM/VVC/VOD TELEHEALTH SUPERVISED EXERCISE STANDARD TITLE: GERIATRIC MEDICINE NOTE DATE OF NOTE: APR 27, 2023@11:25 ENTRY DATE: APR 27, 2023@11:25:30 AUTHOR: JANIE LAZCANO EXP COSIGNER: URGENCY: STATUS: COMPLETED [place] Provided informed consent to receive treatment via Telehealth., mailed and has been made verbally aware of Telehealth Group [place] practices. 's Location: address on record unless specified below. Emergency Contact: on record unless specified below. [place] participated remotely in the [facility] exercise program today through [place] Virtual Shoulder [employer]. Activities were focused on progression of their individual exercise prescription (cardiorespiratory fitness training, strength training, etc.) and group-based exercise sessions to include, but not limited to: flexibility training, balance training & functional circuit training. Exercise participation was supervised remotely by [facility] staff and any questions/concerns were addressed with the patient. Modifications were made to programming as appropriate to suit Veterans individual needs, preferences, and whole health concerns. /es/ Janie Lazcano PT,DPT PHYSICAL THERAPIST Signed: 04/27/2023 11:38 JANIE LAZCANO [facility]
--- OUTSIDE RECORDS SUMMARY | 2024-03-05 06:10 | XMS_ITS | Encounter Summary ---
Author Name [facility] [place] [facility] [place] Organization [facility] [place] Address [address] [place] [id number] Care Team Providers Care Agricultural Production Engineer Name Role Phone LEN MENDOZA Primary [...] PART B Sep 23, 2014 PART B [id number] [id number] [phone] [id number] HARMONY MCCALL JR PATIENT MEDICARE (WNR) MEDICARE (M) PART A July 25, 2007 PART A [id number] [phone] HARMONY MCCALL JR PATIENT MEDICARE (WNR) MEDICARE (M) PART B July 25, 2007 PART B [id number] HARMONY MCCALL JR PATIENT MEDICARE (WNR) MEDICARE (M) PART A July 25, 2007 PART A [id number] HARMONY MCCALL JR PATIENT [facility] MEDICAL EXPENSE (OPT/PROF ) [facility] * Jan 24, 2015 [id number] 18 CAROLE MCCALL SPOUSE Selected Encounter This section includes the information on record at [place] for the Encounter. Date/Time Encounter Type Encounter Description Reason Provider Source Apr 26, 2023 11:00 AM WEIGHT MGMT CLASS WEIGHT MGMT & MOVE! PROG - GRP ICD-10-CM Z68.29 Body mass index [BMI] 29.0-29.9, adult GORDON PATHAK [facility] Encounter Template Text not used by VA Assessments - Encounter Diagnoses This section includes the primary and secondary diagnoses documented for the Encounter. Date/Time Primary/Secondary Diagnosis Diagnosis Name Provider Source Apr 26, 2023 02:19 PM PRIMARY Body mass index [BMI] 29.0-29.9, adult GORDON PATHAK Apr 26, 2023 02:19 PM SECONDARY Overweight GORDON PATHAK [facility] Plan of Treatment: Future Appointments (+ 6 months) and Future Tests (+/- 45 days) The Plan of Treatment section includes future care activities for the patient from all [place] treatmentfacilities. This section includes future appointments and future orders which are active, pending or scheduled. Future Appointments This section includes appointments that were scheduled to occur 6 months from the date of the Encounter, up to a maximum of 20 appointments. The data comes from all [place] treatment facilities. Appointment Date/Time Appointment Type Appointme nt Facility Name May 03, 2023 11:00 AM AMBULATORY - NONE [place] May 10, 2023 11:00 AM AMBULATORY - NONE [place] May 15, 2023 10:00 AM AM[facility]ONE [facility] [place] [facility] May 17, 2023 11:00 AM AMBULATORY - NONE [place] May 24, 2023 11:00 AM AMBULATORY - NONE [place] May 29, 2023 10:00 AM AMBULATORY - NONE [facility] [place] [facility] May 31, 2023 11:00 AM AMBULATORY - NONE [place] Jun 07, 2023 11:00 AM AMBULATORY - NONE [place] Jun 12, 2023 10:00 AM AMBULATORY - NONE [facility] [place] [facility] Jun 14, 2023 11:00 AM AMBULATORY - NONE [place] Jun 21, 2023 11:00 AM AMBULATORY - NONE [place] Jun 26, 2023 10:00 AM AMBULATORY - NONE [facility] [place] [facility] Jun 28, 2023 11:00 AM AMBULATORY - NONE [place] Jul 05, 2023 11:00 AM AMBULATORY - NONE [place] Jul 19, 2023 11:00 AM AMBULATORY - NONE [place] Jul 23, 2023 02:30 PM AMBULATORY - MEDICINE [facility] [place] [facility] July 26, 2023 11:00 AM AMBULATORY - NONE [place] July 31, 2023 10:00 AM AMBULATORY - NONE [place] [facility] [place] [facility] August 02, 2023 11:00 AM AMBULATORY - NONE [place] August 09, 2023 11:00 AM AMBULATORY - NONE [place] Encounter Notes: All associated encounter notes This section contains the clinical notes associated to the Encounter. Date/Time Encounter Note(s) Provider Source Apr 26, 2023 02:14 PM MOVE NOTE: LOCAL TITLE: WEIGHT MANAGEMENT/MOVE! OUTPATIENT GROUP NOTE STANDARD TITLE: MOVE NOTE DATE OF NOTE: APR 26, 2023@14:14 ENTRY DATE: APR 26, 2023@14:14:28 AUTHOR: GORDON PATHAK COSIGNER: URGENCY: STATUS: COMPLETED [place] participated in MOVE! Group Counseling via [facility] on April 26, 2023. The [place] was provided with information on [facility] and has given verbal consent to use group VV services for their healthcare. The copy of the Group Telehealth Agreement has been mailed to the . The Veterans location/emergency contact number were confirmed. The Emergency Call Relay Center (E911) was available. The visit was locked for security and privacy. [place] identified with 2 identifiers: [ ] Full Name [ ] Address Veterans attended the [facility] MOVE! group session on this date. MOVE! is a program designed to provide education about weight management skills to overweight and obese Veterans. Group members combined to gained 2.2 pounds since their last attended group. Group members began today's session talking about the lower level of energy and motivation that they experience during the winter. Group members talked about seasonal affective disorder and benefits of light therapy. Veterans also talked about the challenges of watching the Super Bowl without giving into temptation for Red- Light foods. Some group members talked about the difficulty they have with their spouses bringing tempting unhealthy foods into the house. Group facilitators recommended talking to family members about their concerns. Group members shared their individual goals for the next week. The next [facility] MOVE! group meeting will be held on April @ 11:00am. [place]'s reported weight was 205.0 lbs. and lost 0.9 pounds since last group attended. Dx: Overweight Obesity E66.3 BMI 29.0-29.9 The session lasted for 1 hour in duration. /johanny/ GORDON PATHAK, Ph.D. CLINICAL PSYCHOLOGIST Signed: 04/26/2023 14:24 Receipt Acknowledged By: 04/30/2023 12:38 /johanny/ SANTIAGO KRAMER STAFF DIETITIAN GORDON PATHAK Apr 05, 2023 11:00 AM MOVE NOTE: LOCAL TITLE: WEIGHT MANAGEMENT/MOVE! OUTPATIENT GROUP NOTE STANDARD TITLE: MOVE NOTE DATE OF NOTE: APR 05, 2023@11:00 ENTRY DATE: APR 30, 2023@07:39:03 AUTHOR: SANTIAGO KRAMER EXP COSIGNER: URGENCY: STATUS: COMPLETED [place] participated in MOVE! Group Counseling via [facility] on April 05, 2023. The was provided with information on [facility] and has given verbal consent to use group VVC services for their healthcare. The copy of the Group Telehealth Agreement has been mailed to the . The Veterans location/emergency contact number were confirmed. The Emergency Call Relay Center (E911) was available. The visit was locked for security and privacy. [place] identified with 2 identifiers: [ ] Full Name [ ] Address Veterans attended the [facility] MOVE! group session on this date. MOVE! is a program designed to provide education about weight management skills to overweight and obese Veterans. Group members started the session discussing their progress over past week. Facilitators led a discussion on motivation and how to get on track or started with weight loss. Facilitators discussed options for keeping a food and beverage log. The next [facility] MOVE! group meeting will be held on March @ 11:00am. Wt: 207.9 lbs lost 0.7 lbs. since last session. Dx: e66.3, z68.29 /johanny/ SANTIAGO KRAMER STAFF DIETITIAN Signed: 04/30/2023 07:40 SANTIAGO KRAMER
--- OUTSIDE RECORDS SUMMARY | 2024-03-05 06:10 | XMS_ITS | Encounter Summary ---
Author Name [facility] [place] Address [address] [place] [id number] Care Team Providers Care Research Clerk Name Role Phone LEN MENDOZA Primary Care [...] PART B Sep 23, 2014 PART B [id number] HARMONY MCCLAL JR PATIENT MEDICARE (WNR) MEDICARE (M) PART A July 25, 2007 PART A [id number] [phone] HARMONY MCCALL JR PATIENT MEDICARE (WNR) MEDICARE (M) PART B July 25, 2007 PART B [id number] HARMONY MCCALL JR PATIENT MEDICARE (WNR) MEDICARE (M) PART A July 25, 2007 PART A [id number] HARMONY MCCALL JR PATIENT [facility] MEDICAL EXPENSE (OPT/PROF ) [facility] * Jan 24, 2015 [id number] 18 CAROLE MCCALL SPOUSE Selected Encounter This section includes the information on record at [place] for the Encounter. Date/Time Encounter Type Encounter Description Reason Provider Source Apr 20, 2023 08:00 AM EXERCISE CLASS HEALTH/WELLBEING SRVS ICD-10-CM Z72.3 Lack of physical exercise AMINATA UNDERWOOD IHE Encounter Template Text not used by [place] Assessments - Encounter Diagnoses This section includes the primary and secondary diagnoses documented for the Encounter. Date/Time Primary/Secondary Diagnosis Diagnosis Name Provider Source Apr 20, 2023 11:09 AM PRIMARY Lack of physical exercise AMINATA UNDERWOOD [place] [facility] [place] [facility] Plan of Treatment: Future Appointments (+ 6 months) and Future Tests (+/- 45 days) The Plan of Treatment section includes future care activities for the patient from all [place] treatmentfacilities. This section includes future appointments and future orders which are active, pending or scheduled. Future Appointments This section includes appointments that were scheduled to occur 6 months from the date of the Encounter, up to a maximum of 20 appointments. The data comes from all [place] treatment facilities. Appointment Date/Time Appointment Type Appointme nt Facility Name Apr 26, 2023 11:00 AM [facility]ULATORY - NONE [place] [facility] May 03, 2023 11:00 AM AMBULATORY - NONE [place] May 10, 2023 11:00 AM AMBULATORY - NONE [place] May 15, 2023 10:00 AM AMBULATORY - NONE [facility] [place] [facility] May 17, 2023 11:00 AM AMBULATORY - NONE [place] May 24, 2023 11:00 AM AMBULATORY - NONE [place] May 29, 2023 10:00 AM AMBULATORY - NONE [facility] [place] [facility] May 31, 2023 11:00 AM AMBULATORY - NONE [place] Jun 07, 2023 11:00 AM AMBULATORY - NONE [place] Jun 12, 2023 10:00 AM AMBULATORY - NONE [facility] [place] [facility] Jun 14, 2023 11:00 AM AMBULATORY - NONE [place] Jun 21, 2023 11:00 AM AMBULATORY - NONE [place] Jun 26, 2023 10:00 AM AMBULATORY - NONE [facility] [place] [facility] Jun 28, 2023 11:00 AM AMBULATORY - NONE [place] Jul 05, 2023 11:00 AM AMBULATORY - NONE [place] Jul 19, 2023 11:00 AM AMBULATORY - NONE [place] Jul 23, 2023 02:30 PM AMBULATORY - MEDICINE [facility] [place] [facility] July 26, 2023 11:00 AM AMBULATORY - NONE [place] July 31, 2023 10:00 AM AMBULATORY - NONE [facility] [place] [facility] August 02, 2023 11:00 AM AMBULATORY - NONE [place] Social History: Smoking Status (Most current) and Tobacco Use (All prior to encounter date) This section includes the most current, and the historical, smoking and tobacco- related health factors from the [place] facility where the Encounter took place. Current Smoking Status This section includes the most current smoking, or tobacco-related health factor, from the [place] facility where the Encounter took place. Date/Time Current Smoking Status Comment Facil ity Jan 26, 2023 01:30 PM VA-TOBACCO QUIT 15 YRS OR MORE [place] [facility] [place] [facility] Tobacco Use History This section includes a history of the smoking, or tobacco-related health factors, that were collected on or before the date of the Encounter. The data comes from the [place] facility where the Encounter took place. Date/Time Smoking Status/Tobacco Use Comment F acility Jan 26, 2023 01:30 PM VA-TOBACCO QUIT 15 YRS OR MORE [facility] [place] [facility] Jan 27, 2022 11:00 AM VA-TOBACCO FORMER USER [facility] [place] [facility] Jan 27, 2022 11:00 AM VA-TOBACCO QUIT 15 YRS OR MORE [facility] [place] [facility] Sep 17, 2020 09:00 AM VA-TOBACCO FORMER USER [facility] [place] [facility] Sep 17, 2020 09:00 AM VA-TOBACCO QUIT 15 YRS OR MORE [facility] [place] [facility] Jun 04, 2019 02:57 PM VA-TOBACCO NEVER USED [facility] [place] [facility] Mar 14, 2018 11:23 AM VA-TOBACCO FORMER USER [facility] [place] [facility] Mar 14, 2018 11:23 AM VA-TOBACCO QUIT 15 YRS OR MORE [facility] Apr 04, 2017 12:30 PM QUIT TOBACCO USE > 7 YEARS AGO [facility] Apr 05, 2016 01:02 PM QUIT TOBACCO USE > 7 YEARS AGO quit in 1985 [facility] Encounter Notes: All associated encounter notes This section contains the clinical notes associated to the Encounter. Date/Time Encounter Note(s) Provider Source Apr 20, 2023 10:58 AM GERIATRIC MEDICINE NOTE: LOCAL TITLE: GEROFIT VCM/VVC/VOD TELEHEALTH SUPERVISED EXERCISE STANDARD TITLE: GERIATRIC MEDICINE NOTE DATE OF NOTE: APR 20, 2023@10:58 ENTRY DATE: APR 20, 2023@10:59:24 AUTHOR: AMINATA UNDERWOOD EXP COSIGNER: URGENCY: STATUS: COMPLETED GEROFIT VVC/VCM/VOD Telehealth Supervised Exercise NOTE [place] Provided informed consent to receive treatment via Telehealth., [place] mailed and has been made verbally aware of [facility] [place] practices. [place]'s Location: address on record unless specified below. Emergency Contact: on record unless specified below. [facility] through [place] Virtual Social Worker. Activities were focused on progression of their individual exercise prescription (cardiorespiratory fitness training, strength training, etc.) and group-based exercise sessions to include, but not limited to: flexibility training, balance training & functional circuit training. Exercise participation was supervised remotely by [facility] staff and any questions/concerns were addressed with the patient. Modifications were made to programming as appropriate to suit Veterans individual needs, preferences, and whole health concerns. /johanny/ AMINATA UNDERWOOD PT PHYSICAL THERAPIST Signed: 04/20/2023 11:12 AMINATA UNDERWOOD [facility]
--- OUTSIDE RECORDS SUMMARY | 2024-03-05 06:10 | XMS_ITS | Encounter Summary ---
Author Name [place] Address [address] [place] [id number] Care Team Providers Care Boil Off Machine Operator Cloth Name Role Phone LEN MENDOZA Primary Care [...] PART B Sep 23, 2014 PART B [id number] HARMONY MCCALL JR PATIENT MEDICARE (WNR) MEDICARE (M) PART A July 25, 2007 PART A [id number] [phone] HARMONY MCCALL JR PATIENT MEDICARE (WNR) MEDICARE (M) PART B July 25, 2007 PART B [id number] HARMONY MCCALL JR PATIENT MEDICARE (WNR) MEDICARE (M) PART A July 25, 2007 PART A [id number] HARMONY MCCALL JR PATIENT [facility] MEDICAL EXPENSE (OPT/PROF ) [facility] * Jan 24, 2015 [id number] CAROLE MCCALL SPOUSE Selected Encounter This section includes the information on record at [place] for the Encounter. Date/Time Encounter Type Encounter Description Reason Provider Source Apr 30, 2023 10:18 AM EXERCISE CLASS HEALTH/WELLBEING SRVS ICD-10-CM Z72.3 Lack of physical exercise JANIE LAZCANO [facility] Encounter Template Text not used by [place] Assessments - Encounter Diagnoses This section includes the primary and secondary diagnoses documented for the Encounter. Date/Time Primary/Secondary Diagnosis Diagnosis Name Provider Source Apr 30, 2023 10:35 AM PRIMARY Lack of physical exercise JANIE LAZCANO [place] [facility] [place] [facility] Plan of Treatment: Future Appointments (+ 6 months) and Future Tests (+/- 45 days) The Plan of Treatment section includes future care activities for the patient from all [place] treatmentfacilities. This section includes future appointments and future orders which are active, pending or scheduled. Future Appointments This section includes appointments that were scheduled to occur 6 months from the date of the Encounter, up to a maximum of 20 appointments. The data comes from all [place] treatment facilities. Appointment Date/Time Appointment Type Appointme nt Facility Name May 03, 2023 11:00 AM AMBULATORY - NONE [place] May 10, 2023 11:00 AM AMBULATORY - NONE [place] May 15, 2023 10:00 AM AMBULATORY - NONE [facility] [place] [facility] May 17, 2023 11:00 AM AMBULATORY - NONE [place] May 24, 2023 11:00 AM AMBULATORY - NONE [place] May 29, 2023 10:00 AM AMBULATORY - NONE [facility] [place] [facility] May 31, 2023 11:00 AM AMBULATORY - NONE [place] Jun 07, 2023 11:00 AM AMBULATORY - NONE [place] Jun 12, 2023 10:00 AM AMBULATORY - NONE [facility] [place] [facility] Jun 14, 2023 11:00 AM AMBULATORY - NONE [place] Jun 21, 2023 11:00 AM AMBULATORY - NONE [place] Jun 26, 2023 10:00 AM AMBULATORY - NONE [facility] [place] [facility] Jun 28, 2023 11:00 AM AMBULATORY - NONE [place] Jul 05, 2023 11:00 AM AMBULATORY - NONE [place] Jul 19, 2023 11:00 AM AMBULATORY - NONE [place] Jul 23, 2023 02:30 PM AMBULATORY - MEDICINE [facility] [place] [facility] July 26, 2023 11:00 AM AMBULATORY - NONE [place] July 31, 2023 10:00 AM AMBULATORY - NONE [facility] [place] [facility] August 02, 2023 11:00 AM AMBULATORY - NONE [place] August 09, 2023 11:00 AM AMBULATORY - NONE [place] Social History: Smoking Status (Most current) and Tobacco Use (All prior to encounter date) This section includes the most current, and the historical, smoking and tobacco- related health factors from the [place] facility where the Encounter took place. Current Smoking Status This section includes the most current smoking, or tobacco-related health factor, from the [place] facility where the Encounter took place. Date/Time Current Smoking Status Comment Facil ity Jan 26, 2023 01:30 PM VA-TOBACCO FORMER USER [facility] [place] [facility] Tobacco Use History This section includes a history of the smoking, or tobacco-related health factors, that were collected on or before the date of the Encounter. The data comes from the [place] facility where the Encounter took place. Date/Time Smoking Status/Tobacco Use Comment F acility Jan 26, 2023 01:30 PM VA-TOBACCO QUIT 15 YRS OR MORE [facility] [place] [facility] Jan 27, 2022 11:00 AM VA-TOBACCO FORMER USER [facility] [place] [facility] Jan 27, 2022 11:00 AM VA-TOBACCO QUIT 15 YRS OR MORE [facility] [place] [facility] Sep 17, 2020 09:00 AM VA-TOBACCO FORMER USER [facility] [place] [facility] Sep 17, 2020 09:00 AM VA-TOBACCO QUIT 15 YRS OR MORE [facility] [place] [facility] Jun 04, 2019 02:57 PM VA-TOBACCO NEVER USED [facility] [place] [facility] Mar 14, 2018 11:23 AM VA-TOBACCO FORMER USER [facility] [place] [facility] Mar 14, 2018 11:23 AM VA-TOBACCO QUIT 15 YRS OR MORE [facility] [place] [facility] Apr 04, 2017 12:30 PM QUIT TOBACCO USE > 7 YEARS AGO [facility] Apr 05, 2016 01:02 PM QUIT TOBACCO USE > 7 YEARS AGO quit in 1984 [facility] Encounter Notes: All associated encounter notes This section contains the clinical notes associated to the Encounter. Date/Time Encounter Note(s) Provider Source Apr 30, 2023 10:32 AM GERIATRIC MEDICINE NOTE: LOCAL TITLE: GEROFIT VCM/VVC/VOD TELEHEALTH SUPERVISED EXERCISE STANDARD TITLE: GERIATRIC MEDICINE NOTE DATE OF NOTE: APR 30, 2023@10:32 ENTRY DATE: APR 30, 2023@10:33:44 AUTHOR: JANIE LAZCANO EXP COSIGNER: URGENCY: STATUS: COMPLETED [place] Provided informed consent to receive treatment via Telehealth., mailed and has been made verbally aware of [facility] [place] practices. 's Location: address on record unless specified below. Emergency Contact: on record unless specified below. [place] participated remotely in the [facility] exercise program today through [place] Virtual Outdoor Advertising Leasing Agent. Activities were focused on progression of their individual exercise prescription (cardiorespiratory fitness training, strength training, etc.) and group-based exercise sessions to include, but not limited to: flexibility training, balance training & functional circuit training. Exercise participation was supervised remotely by [facility] staff and any questions/concerns were addressed with the patient. Modifications were made to programming as appropriate to suit Veterans individual needs, preferences, and whole health concerns. /es/ Janie Lazcano PT,DPT PHYSICAL THERAPIST Signed: 04/30/2023 10:42 JANIE LAZCANO [facility]
--- OUTSIDE RECORDS SUMMARY | 2024-03-05 06:10 | XMS_ITS | Encounter Summary ---
Author Name [place] Address [address] [place] [id number] Care Team Providers Care Scale Assembly Set Up Worker Name Role Phone LEN MENDOZA Primary Care [...] PART B Sep 23, 2014 PART B [id number] HARMONY MCCALL JR PATIENT MEDICARE (WNR) MEDICARE (M) PART A July 25, 2007 PART A [id number] HARMONY MCCALL JR PATIENT MEDICARE (WNR) MEDICARE (M) PART B July 25, 2007 PART B [id number] [phone] HARMONY MCCALL JR PATIENT MEDICARE (WNR) MEDICARE (M) PART A July 25, 2007 PART A [id number] HARMONY MCCALL JR PATIENT [facility] MEDICAL EXPENSE (OPT/PROF ) [facility] * Jan 24, 2015 [id number] 18 CAROLE MCCALL SPOUSE Selected Encounter This section includes the information on record at [place] for the Encounter. Date/Time Encounter Type Encounter Description Reason Provider Source Apr 25, 2023 08:00 AM EXERCISE CLASS HEALTH/WELLBEING SRVS ICD-10-CM Z72.3 Lack of physical exercise DAMON ONEILL IHE Encounter Template Text not used by [place] Assessments - Encounter Diagnoses This section includes the primary and secondary diagnoses documented for the Encounter. Date/Time Primary/Secondary Diagnosis Diagnosis Name Provider Source Apr 25, 2023 11:44 AM PRIMARY Lack of physical exercise DAMON ONEILL [place] [facility] [place] [facility] Plan of Treatment: Future Appointments (+ 6 months) and Future Tests (+/- 45 days) The Plan of Treatment section includes future care activities for the patient from all [place] treatmentfacilities. This section includes future appointments and future orders which are active, pending or scheduled. Future Appointments This section includes appointments that were scheduled to occur 6 months from the date of the Encounter, up to a maximum of 20 appointments. The data comes from all [place] treatment facilities. Appointment Date/Time Appointment Type Appointme nt Facility Name Apr 26, 2023 11:00 AM AMBULATORY - NONE [place] May 03, 2023 11:00 AM AMBULATORY - NONE [place] May 10, 2023 11:00 AM AMBULATORY - NONE [place] May 15, 2023 10:00 AM AMBULATORY - NONE [facility] [place] [facility] May 17, 2023 11:00 AM AMBULATORY - NONE [place] May 24, 2023 11:00 AM AMBULATORY - NONE [place] May 29, 2023 10:00 AM AMBULATORY - NONE [facility] [place] [facility] May 31, 2023 11:00 AM AMBULATORY - NONE [place] Jun 07, 2023 11:00 AM AMBULATORY - NONE [place] Jun 12, 2023 10:00 AM AMBULATORY - NONE [facility] [place] [facility] Jun 14, 2023 11:00 AM AMBULATORY - NONE [place] Jun 21, 2023 11:00 AM AMBULATORY - NONE [place] Jun 26, 2023 10:00 AM AMBULATORY - NONE [facility] [place] [facility] Jun 28, 2023 11:00 AM AMBULATORY - NONE [place] Jul 05, 2023 11:00 AM AMBULATORY - NONE [place] Jul 19, 2023 11:00 AM AMBULATORY - NONE [place] Jul 23, 2023 02:30 PM AMBULATORY - MEDICINE [facility] [place] [facility] July 26, 2023 11:00 AM AMBULATORY - NONE [place] July 31, 2023 10:00 AM AMBULATORY - NONE [facility] [place] [facility] August 02, 2023 11:00 AM AMBULATORY - NONE [place] Social History: Smoking Status (Most current) and Tobacco Use (All prior to encounter date) This section includes the most current, and the historical, smoking and tobacco- related health factors from the [place] facility where the Encounter took place. Current Smoking Status This section includes the most current smoking, or tobacco-related health factor, from the [place] facility where the Encounter took place. Date/Time Current Smoking Status Comment Facil ity Jan 26, 2023 01:30 PM VA-TOBACCO FORMER USER [facility] [place] [facility] Tobacco Use History This section includes a history of the smoking, or tobacco-related health factors, that were collected on or before the date of the Encounter. The data comes from the [place] facility where the Encounter took place. Date/Time Smoking Status/Tobacco Use Comment F acility Jan 26, 2023 01:30 PM VA-TOBACCO QUIT 15 YRS OR MORE [facility] [place] [facility] Jan 27, 2022 11:00 AM VA-TOBACCO FORMER USER [facility] [place] [facility] Jan 27, 2022 11:00 AM VA-TOBACCO QUIT 15 YRS OR MORE [facility] [place] [facility] Sep 17, 2020 09:00 AM VA-TOBACCO FORMER USER [facility] [place] [facility] Sep 17, 2020 09:00 AM VA-TOBACCO QUIT 15 YRS OR MORE [facility] [place] [facility] Jun 04, 2019 02:57 PM VA-TOBACCO NEVER USED [facility] [place] [facility] Mar 14, 2018 11:23 AM VA-TOBACCO FORMER USER [facility] [place] [facility] Mar 14, 2018 11:23 AM VA-TOBACCO QUIT 15 YRS OR MORE [facility] Apr 04, 2017 12:30 PM QUIT TOBACCO USE > 7 YEARS AGO [facility] Apr 05, 2016 01:02 PM QUIT TOBACCO USE > 7 YEARS AGO quit in 1984 [facility] Encounter Notes: All associated encounter notes This section contains the clinical notes associated to the Encounter. Date/Time Encounter Note(s) Provider Source Apr 25, 2023 11:41 AM GERIATRIC MEDICINE NOTE: LOCAL TITLE: GEROFIT VCM/VVC/VOD TELEHEALTH SUPERVISED EXERCISE STANDARD TITLE: GERIATRIC MEDICINE NOTE DATE OF NOTE: APR 25, 2023@11:41 ENTRY DATE: APR 25, 2023@11:42:04 AUTHOR: DOUG ONEILL COSIGNER: URGENCY: STATUS: COMPLETED GEROFIT VVC/VCM/VOD Telehealth Supervised Exercise NOTE [place] Provided informed consent to receive treatment via Telehealth., [place] mailed and has been made verbally aware of [facility] [place] practices. [place]'s Location: address on record unless specified below. Emergency Contact: on record unless specified below. [place] participated remotely in the [facility] exercise program today through [place] Virtual Administration Dean. Activities were focused on progression of their [...] whole health concerns. /johanny/ VIOLETTA FINK LICENSE ESL TUTOR Signed: 04/25/2023 11:53 DOUG ONEILL [facility]
--- OUTSIDE RECORDS SUMMARY | 2024-03-05 06:10 | XMS_ITS | Encounter Summary ---
Author Name [facility] [place] [facility] [place] Address [address] [place] [id number] Care Team Providers Care Survey Coordinator Name Role Phone LEN MENDOZA Primary Care [...] PART B Sep 23, 2014 PART B [id number] HARMONY MCCALL JR PATIENT MEDICARE (WNR) MEDICARE (M) PART A July 25, 2007 PART A [id number] HARMONY MCCALL JR PATIENT MEDICARE (WNR) MEDICARE (M) PART B July 25, 2007 PART B [id number] [phone] HARMONY MCCALL JR PATIENT MEDICARE (WNR) MEDICARE (M) PART A July 25, 2007 PART A [id number] HARMONY MCCALL JR PATIENT [facility] EXPENSE (OPT/PROF ) [facility] * Jan 24, 2015 [id number] CAROLE MCCALL SPOUSE Selected Encounter This section includes the information on record at [place] for the Encounter. Date/Time Encounter Type Encounter Description Reason Provider Source Apr 19, 2023 11:00 AM WEIGHT MGMT CLASS WEIGHT MGMT & MOVE! PROG - GRP ICD-10-CM Z68.29 Body mass index [BMI] 29.0-29.9, adult GORDON PATHAK [facility] Encounter Template Text not used by [facility] Assessments - Encounter Diagnoses This section includes the primary and secondary diagnoses documented for the Encounter. Date/Time Primary/Secondary Diagnosis Diagnosis Name Provider Source Apr 20, 2023 09:10 AM PRIMARY Body mass index [BMI] 29.0-29.9, adult GORDON PATHAK Apr 20, 2023 09:10 AM SECONDARY Overweight GORDON PATHAK Plan of Treatment: Future Appointments (+ 6 months) and Future Tests (+/- 45 days) The Plan of Treatment section includes future care activities for the patient from all [place] treatmentfacilities. This section includes future appointments and future orders which are active, pending or scheduled. Future Appointments This section includes appointments that were scheduled to occur 6 months from the date of the Encounter, up to a maximum of 20 appointments. The data comes from all [place] treatment facilities. Appointment Date/Time Appointment Type Appointme nt Facility Name Apr 26, 2023 11:00 AM AMBULATORY - NONE [place] May 03, 2023 11:00 AM AMBULATORY - NONE [place] May 10, 2023 11:00 AM AMBULATORY - NONE [place] May 15, 2023 10:00 AM AM[facility]ULATORY [facility] NONE [facility] [place] [facility] May 17, 2023 11:00 AM AMBULATORY - NONE [place] May 24, 2023 11:00 AM AMBULATORY - NONE [place] May 29, 2023 10:00 AM AMBULATORY - NONE [facility] [place] [facility] May 31, 2023 11:00 AM AMBULATORY - NONE [place] Jun 07, 2023 11:00 AM AMBULATORY - NONE [place] Jun 12, 2023 10:00 AM AMBULATORY - NONE [facility] [place] [facility] Jun 14, 2023 11:00 AM AMBULATORY - NONE [place] Jun 21, 2023 11:00 AM AMBULATORY - NONE [place] Jun 26, 2023 10:00 AM AMBULATORY - NONE [facility] [place] [facility] Jun 28, 2023 11:00 AM AMBULATORY - NONE [place] Jul 05, 2023 11:00 AM AMBULATORY - NONE [place] Jul 19, 2023 11:00 AM AMBULATORY - NONE [place] Jul 23, 2023 02:30 PM AMBULATORY - MEDICINE [facility] [place] [facility] July 26, 2023 11:00 AM AMBULATORY - NONE [place] July 31, 2023 10:00 AM AMBULATORY - NONE [facility] [place] [facility] August 02, 2023 11:00 AM AMBULATORY - NONE [place] Encounter Notes: All associated encounter notes This section contains the clinical notes associated to the Encounter. Date/Time Encounter Note(s) Provider Source Apr 20, 2023 08:55 AM MOVE NOTE: LOCAL TITLE: WEIGHT MANAGEMENT/MOVE! OUTPATIENT GROUP NOTE STANDARD TITLE: MOVE NOTE DATE OF NOTE: APR 20, 2023@08:55 ENTRY DATE: APR 20, 2023@08:55:25 AUTHOR: GORDON PATHAK COSIGNER: URGENCY: STATUS: COMPLETED [place] participated in MOVE! Group Counseling via [facility] on April 19, 2023. The [place] was provided with information on [facility] and has given verbal consent to use group VVC services for their healthcare. The copy of the Group Telehealth Agreement has been mailed to the . The Veterans location/emergency contact number were confirmed. The Emergency Call Relay Center (E911) was available. The visit was locked for security and privacy. [place] identified with 2 identifiers: [ ] Full Name [ ] Address Veterans attended the [facility] MOVE! group session on this date. MOVE! is a program designed to provide education about weight management skills to overweight and obese Veterans. Group members combined to lose 9.4 pounds since their last attended group. Group members began today's session talking about the dual challenge of trying to lose weight while also managing other health concerns like improving blood glucose levels with diabetes. Facilitators and Veterans both had suggestions of swaps that one could make with food choices to tackle both tasks like substitutions of cauliflower rice and vegetable pasta instead of traditional high calorie/high carbohydrate options. Finding ways to incorporate more nonstarchy vegetables into one's diet was highlighted as a way to get more bites of food with lower calories and more fiber which will also better control blood glucose readings. Group members shared their individual goals for the next week. The next [facility] MOVE! group meeting will be held on April @ 11:00am. 's reported weight was 205.9 lbs. and lost 1.1 pounds since last group attended. Dx: Overweight Obesity E66.3 BMI 29.0-29.9 The session lasted for 1 hour in duration. /johanny/ GORDON PATHAK, Ph.D. CLINICAL PSYCHOLOGIST Signed: 04/20/2023 09:22 Receipt Acknowledged By: 04/24/2023 10:40 /es/ SANTIAGO KRAMER STAFF DIETITIAN GORDON PATHAK
--- OUTSIDE RECORDS SUMMARY | 2024-03-05 06:10 | XMS_ITS | Encounter Summary ---
Author Name [facility] [place] [facility] [place] [facility] [place] Address [address] [place] [address] Care Team Providers Care Foster Parent Name Role Phone LEN MENDOZA Primary Care [...] PART B Sep 23, 2014 PART B [id number] HARMONY MCCALL JR PATIENT MEDICARE (WNR) MEDICARE (M) PART A July 25, 2007 PART A [id number] [phone] HARMONY MCCALL JR PATIENT MEDICARE (WNR) MEDICARE (M) PART B July 25, 2007 PART B [id number] HARMONY MCCALL JR PATIENT MEDICARE (WNR) MEDICARE (M) PART A July 25, 2007 PART A [id number] HARMONY MCCALL JR PATIENT [facility] MEDICAL EXPENSE (OPT/PROF ) [facility] * Jan 24, 2015 [id number] [phone] CAROLE MCCALL SPOUSE Selected Encounter This section includes the information on record at [place] for the Encounter. Date/Time Encounter Type Encounter Description Reason Provider Source Apr 05, 2023 11:00 AM GROUP BEHAVE COUNS 2-10 WEIGHT MGMT & MOVE! PROG - GRP ICD-10-CM E66.3 Overweight NIAMIGUEL Jarvis IHErin Encounter Template Text not used by [place] Assessments - Encounter Diagnoses This section includes the primary and secondary diagnoses documented for the Encounter. Date/Time Primary/Secondary Diagnosis Diagnosis Name Provider Source May 03, 2023 08:45 AM PRIMARY Overweight NIASANTIAGO TIAN Plan of Treatment: Future Appointments (+ 6 months) and Future Tests (+/- 45 days) The Plan of Treatment section includes future care activities for the patient from all [place] treatmentfacilities. This section includes future appointments and future orders which are active, pending or scheduled. Future Appointments This section includes appointments that were scheduled to occur 6 months from the date of the Encounter, up to a maximum of 20 appointments. The data comes from all [place] treatment facilities. Appointment Date/Time Appointment Type Appointme nt Facility Name Apr 10, 2023 10:00 AM AMBULATORY [facility] NONE [facility] [place] [facility] Apr 12, 2023 11:00 AM [...] AMBULATORY - NONE [facility] [place] [facility] May 17, 2023 11:00 AM AMBULATORY - NONE [place] May 24, 2023 11:00 AM AMBULATORY - NONE [place] May 29, 2023 10:00 AM AMBULATORY - NONE [facility] [place] [facility] May 31, 2023 11:00 AM AMBULATORY - NONE [place] Jun 07, 2023 11:00 AM AMBULATORY - NONE [place] Jun 12, 2023 10:00 AM AMBULATORY - NONE [facility] [place] [facility] Jun 14, 2023 11:00 AM AMBULATORY - NONE [place] Jun 21, 2023 11:00 AM AMBULATORY - NONE [place] Jun 26, 2023 10:00 AM AMBULATORY - NONE [place] [facility] Jun 28, 2023 11:00 AM AMBULATORY - NONE [place] Jul 05, 2023 11:00 AM AMBULATORY - NONE [place] Jul 19, 2023 11:00 AM AMBULATORY - NONE [place] Jul 23, 2023 02:30 PM AMBULATORY - MEDICINE [facility] Encounter Notes: All associated encounter notes This section contains the clinical notes associated to the Encounter. Date/Time Encounter Note(s) Provider Source Apr 05, 2023 11:00 AM MOVE NOTE: LOCAL TITLE: WEIGHT MANAGEMENT/MOVE! OUTPATIENT GROUP NOTE STANDARD TITLE: MOVE NOTE DATE OF NOTE: APR 05, 2023@11:00 ENTRY DATE: APR 06, 2023@09:30:51 AUTHOR: SANTIAGO KRAMER COSIGNER: URGENCY: STATUS: COMPLETED [place] participated in MOVE! Group Counseling via [facility] on April 05, 2023. The was provided with information on [facility] and has given verbal consent to use group VVC services for their healthcare. The copy of the Group Telehealth Agreement has been mailed to the [place]. The Veterans location/emergency contact number were confirmed. The Emergency Call Relay Center (E911) was available. The visit was locked for security and privacy. identified with 2 identifiers: [ ] Full Name [ ] Address Veterans attended the [facility] MOVE! group session on this [...] a food and beverage log. The next [facility] MOVE! group meeting will be held on March @ 11:00am. Wt: 207.9 lbs lost 0.7 lbs. since last session. Dx: e66.3, z68.29 /es/ SANTIAGO KRAMER STAFF DIETITIAN Signed: 04/06/2023 09:59 SANTIAGO KRAMER [place]
--- OUTSIDE RECORDS SUMMARY | 2024-03-05 06:11 | XMS_ITS | Encounter Summary ---
Author Name [facility] [place] Organization [facility] [place] Address [address] [place] [address] Care Team Providers Care Orientor Name Role Phone LEN MENDOZA Primary Care [...] PART B Sep 23, 2014 PART B [id number] HARMONY MCCALL JR PATIENT MEDICARE (WNR) MEDICARE (M) PART A July 25, 2007 PART A [id number] [id number] [phone] HARMONY MCCALL JR PATIENT MEDICARE (WNR) MEDICARE (M) PART B July 25, 2007 PART B [id number] [phone] HARMONY MCCALL JR PATIENT MEDICARE (WNR) MEDICARE (M) PART A July 25, 2007 PART A [id number] HARMONY MCCALL JR PATIENT [facility] MEDICAL EXPENSE (OPT/PROF ) [facility] * Jan 24, 2015 [id number] CAROLE MCCALL SPOUSE Selected Encounter This section includes the information on record at [place] for the Encounter. Date/Time Encounter Type Encounter Description Reason Provider Source May 07, 2023 08:00 AM EXERCISE CLASS HEALTH/WELLBEING [facility] ICD-10-CM Z72.3 Lack of physical exercise JANIE LAZCANO E Encounter Template Text not used by [place] Assessments - Encounter Diagnoses This section includes the primary and secondary diagnoses documented for the Encounter. Date/Time Primary/Secondary Diagnosis Diagnosis Name Provider Source May 07, 2023 10:46 AM PRIMARY Lack of physical exercise DAMON ONEILL [place] [facility] [place] [facility] Plan of Treatment: Future Appointments (+ [...] Appointment Type Appointme nt Facility Name May 10, 2023 11:00 AM AMBULATORY - NONE [place] May 15, 2023 10:00 AM AMBULATORY - NONE [facility] [place] [facility] May 17, 2023 11:00 AM AMBULATORY - NONE [place] May 24, 2023 11:00 AM AMBULATORY - NONE [place] May 29, 2023 10:00 AM AMBULATORY - NONE [facility] [place] [facility] May 31, 2023 11:00 AM AMBULATORY - NONE [place] Jun 07, 2023 11:00 AM AMBULATORY - NONE [place] Jun 12, 2023 10:00 AM AMBULATORY - NONE [facility] [place] [facility] Jun 14, 2023 11:00 AM AMBULATORY - NONE [place] Jun 21, 2023 11:00 AM AMBULATORY - NONE [place] Jun 26, 2023 10:00 AM AMBULATORY - NONE [facility] [place] [facility] Jun 28, 2023 11:00 AM AMBULATORY - NONE [place] Jul 05, 2023 11:00 AM AMBULATORY - NONE [place] Jul 19, 2023 11:00 AM AMBULATORY - NONE [place] Jul 23, 2023 02:30 PM AMBULATORY - MEDICINE [facility] [place] [facility] July 26, 2023 11:00 AM AMBULATORY - NONE [place] July 31, 2023 10:00 AM AMBULATORY - NONE [facility] [place] [facility] August 02, 2023 11:00 AM AMBULATORY - NONE [place] August 09, 2023 11:00 AM AMBULATORY - NONE [place] August 23, 2023 11:00 AM AMBULATORY - NONE [place] Social History: Smoking Status (Most current) and Tobacco Use (All prior to encounter date) This section includes the most current, and the historical, smoking and tobacco- related health factors from the [place] facility where the Encounter took place. Current Smoking Status This section includes the most current smoking, or tobacco-related health factor, from the [place] facility where the Encounter took place. Date/Time Current Smoking Status Comment Facil ity Jan 26, 2023 01:30 PM VA-TOBACCO FORMER USER [facility] [place] [facility] Tobacco Use History This section includes a history of the smoking, or tobacco-related health factors, that were collected on or before the date of the Encounter. The data comes from the [place] facility where the Encounter took place. Date/Time Smoking Status/Tobacco Use Comment F acility Jan 26, 2023 01:30 PM VA-TOBACCO QUIT 15 YRS OR MORE [facility] [place] [facility] Jan 27, 2022 11:00 AM VA-TOBACCO FORMER USER [facility] [place] [facility] Jan 27, 2022 11:00 AM VA-TOBACCO QUIT 15 YRS OR MORE [facility] [place] [facility] Sep 17, 2020 09:00 AM VA-TOBACCO FORMER USER [facility] [place] [facility] Sep 17, 2020 09:00 AM VA-TOBACCO QUIT 15 YRS OR MORE [facility] [place] [facility] Jun 04, 2019 02:57 PM VA-TOBACCO NEVER USED [facility] [place] [facility] Mar 14, 2018 11:23 AM VA-TOBACCO FORMER USER [facility] [place] [facility] Mar 14, 2018 11:23 AM VA-TOBACCO QUIT 15 YRS OR MORE [facility] [place] [facility] Apr 04, 2017 12:30 PM QUIT TOBACCO USE > 7 YEARS AGO [facility] Apr 05, 2016 01:02 PM QUIT TOBACCO USE > 7 YEARS AGO quit in 1984 [facility] Encounter Notes: All associated encounter notes This section contains the clinical notes associated to the Encounter. Date/Time Encounter Note(s) Provider Source May 07, 2023 10:45 AM GERIATRIC MEDICINE NOTE: LOCAL TITLE: GEROFIT VCM/VVC/VOD TELEHEALTH SUPERVISED EXERCISE STANDARD TITLE: GERIATRIC MEDICINE NOTE DATE OF NOTE: MAY 07, 2023@10:45 ENTRY DATE: MAY 07, 2023@10:45:32 AUTHOR: DOUG ONEILL COSIGNER: URGENCY: STATUS: COMPLETED GEROFIT VVC/VCM/VOD Telehealth Supervised Exercise NOTE [place] Provided informed consent to receive treatment via Telehealth., [place] mailed and has been made verbally aware of Telehealth Group [place] practices. [place]'s Location: address on record unless specified below. Emergency Contact: on record unless specified below. participated remotely in the Gerofit exercise program today through [place] Virtual Research Administrator. Activities were focused on progression of their [...] whole health concerns. /johanny/ VIOLETTA FINK LICENSE SOIL CHEMIST Signed: 05/07/2023 10:55 DOUG ONEILL [facility]
--- OUTSIDE RECORDS SUMMARY | 2024-03-05 06:11 | XMS_ITS | Encounter Summary ---
Author Name [facility] [place] Address [address] [place] [address] Care Team Providers Care Annual Campaign Manager Name Role Phone LEN MENDOZA Primary Care [...] PART B Sep 23, 2014 PART B [id number] HARMONY MCCALL JR PATIENT MEDICARE (WNR) MEDICARE (M) PART A July 25, 2007 PART A [id number] [id number] [phone] 00 HARMONY MCCALL JR PATIENT MEDICARE (WNR) MEDICARE (M) PART B July 25, 2007 PART B [id number] HARMONY MCCALL JR PATIENT MEDICARE (WNR) MEDICARE (M) PART A July 25, 2007 PART A [id number] HARMONY MCCALL JR PATIENT [facility] MEDICAL EXPENSE (OPT/PROF ) [facility] * Jan 24, 2015 [id number] CAROLE MCCALL SPOUSE Selected Encounter This section includes the information on record at [place] for the Encounter. Date/Time Encounter Type Encounter Description Reason Provider Source May 03, 2023 11:00 AM WEIGHT MGMT CLASS WEIGHT MGMT & MOVE! PROG - GRP ICD-10-CM Z68.29 Body mass index [BMI] 29.0-29.9, adult GORDON PATHAK [facility] Encounter Template Text not used by [place] Assessments - Encounter Diagnoses This section includes the primary and secondary diagnoses documented for the Encounter. Date/Time Primary/Secondary Diagnosis Diagnosis Name Provider Source May 04, 2023 09:43 AM PRIMARY Body mass index [BMI] 29.0-29.9, adult GORDON PATHAK May 04, 2023 09:43 AM SECONDARY Overweight GORDON PATHAK Plan of Treatment: Future Appointments (+ 6 months) and Future Tests (+/- 45 days) The Plan of Treatment section includes future care activities for the patient from all [place] treatmentfacilities. This section includes future appointments and future orders which are active, pending or scheduled. Future Appointments This section includes appointments that were scheduled to occur 6 months from the date of the Encounter, up to a maximum of 20 appointments. The data comes from all [place] treatment facilities. Appointment Date/Time Appointment Type Appointme nt Facility Name May 10, 2023 11:00 AM AMBULATORY - NONE [place] May 15, 2023 10:00 AM AMBULATORY - NONE [facility] [place] [facility] May 17, 2023 11:00 AM AMBULATORY - NONE [place] May 24, 2023 11:00 AM AMBULATORY - NONE [place] May 29, 2023 10:00 AM AMBULATORY - NONE [facility] [place] [facility] May 31, 2023 11:00 AM AMBULATORY - NONE [place] Jun 07, 2023 11:00 AM AMBULATORY - NONE [place] Jun 12, 2023 10:00 AM AMBULATORY - NONE [facility] [place] [facility] Jun 14, 2023 11:00 AM AMBULATORY - NONE [place] Jun 21, 2023 11:00 AM AMBULATORY - NONE [place] Jun 26, 2023 10:00 AM AMBULATORY - NONE [facility] [place] [facility] Jun 28, 2023 11:00 AM AMBULATORY - NONE [place] Jul 05, 2023 11:00 AM AMBULATORY - NONE [place] Jul 19, 2023 11:00 AM AMBULATORY - NONE [place] Jul 23, 2023 02:30 PM AMBULATORY - MEDICINE [place] [facility] July 26, 2023 11:00 AM AMBULATORY - NONE [place] July 31, 2023 10:00 AM AMBULATORY - NONE [place] [facility] August 02, 2023 11:00 AM AMBULATORY - NONE [place] August 09, 2023 11:00 AM AMBULATORY - NONE [place] August 23, 2023 11:00 AM AMBULATORY - NONE [place] Encounter Notes: All associated encounter notes This section contains the clinical notes associated to the Encounter. Date/Time Encounter Note(s) Provider Source May 04, 2023 09:34 AM MOVE NOTE: LOCAL TITLE: WEIGHT MANAGEMENT/MOVE! OUTPATIENT GROUP NOTE STANDARD TITLE: MOVE NOTE DATE OF NOTE: MAY 04, 2023@09:34 ENTRY DATE: MAY 04, 2023@09:34:54 AUTHOR: GORDON PATHAK COSIGNER: URGENCY: STATUS: COMPLETED [place] participated in MOVE! Group Counseling via [facility] on May 03, 2023. The [place] was provided with information on [facility] and has given verbal consent to use group [place] services for their healthcare. The copy of the Group Telehealth Agreement has been mailed to the . The Veterans location/emergency contact number were confirmed. The Emergency Call Relay Center (E911) was available. The visit was locked for security and privacy. [place] identified with 2 identifiers: [ ] Full Name [ ] Address Veterans attended the [facility] MOVE! group session on this date. MOVE! is a program designed to provide education about weight management skills to overweight and obese Veterans. Group members combined to lost 0.9 pounds since their last attended group. Group members began today's session talking about the upcoming Super Bowl and ways to adhere to their healthy eating plan despite the temptations that come with the event. Veterans plan to treat the day as any other and increase their physical activity in the coming week. Group members asked about Ozempic and if there is any benefit from weighing yourself every day. Veterans discussed the desire to lose a lot of weight quickly but recognized the need to make lasting changes to habits in order to see long-term consistent weight loss. Group members shared their individual goals for the next week. The next [facility] MOVE! group meeting will be held on April @ 11:00am. 's reported weight was 206.3 lbs. and gained 1.3 pounds since last group attended. Dx: Overweight Obesity E66.3 BMI 29.0-29.9 The session lasted for 1 hour in duration. /johanny/ GORDON PATHAK, Ph.D. CLINICAL PSYCHOLOGIST Signed: 05/04/2023 09:52 Receipt Acknowledged By: 05/08/2023 08:41 /johanny/ SANTIAGO KRAMER STAFF DIETITIAN GORDON PATHAK
--- OUTSIDE RECORDS SUMMARY | 2024-03-05 06:11 | XMS_ITS | Encounter Summary ---
Author Name Department of Vetera Affairs ([place]) Organization [facility] [place] [place] [facility] [place] Address [address] [place] [id number] Care Team Providers Care Pacu Nurse Name Role Phone LEN MENDOZA Primary Care [...] PART B Sep 23, 2014 PART B [id number] HARMONY MCCALL JR PATIENT MEDICARE (WNR) MEDICARE (M) PART A July 25, 2007 PART A [id number] HARMONY MCCALL JR PATIENT MEDICARE (WNR) MEDICARE (M) PART B July 25, 2007 PART B [id number] HARMONY MCCALL JR PATIENT MEDICARE (WNR) MEDICARE (M) PART A July 25, 2007 PART A [id number] HARMONY MCCALL JR PATIENT [facility] MEDICAL EXPENSE (OPT/PROF ) [facility] * Jan 24, 2015 [id number] 18 CAROLE MCCALL SPOUSE Selected Encounter This section includes the information on record at ID for the Encounter. Date/Time Encounter Type Encounter Description Reason Provider Source May 04, 2023 08:00 AM EXERCISE CLASS HEALTH/WELLBEING SRVS ICD-10-CM Z72.3 Lack of physical exercise TERRY COATES [facility] Encounter Template Text not used by [place] Assessments - Encounter Diagnoses This section includes the primary and secondary diagnoses documented for the Encounter. Date/Time Primary/Secondary Diagnosis Diagnosis Name Provider Source May 04, 2023 10:48 AM PRIMARY Lack of physical exercise TERRY COATES [place] [facility] [place] [facility] Plan of Treatment: Future Appointments (+ [...] [facility] [place] [facility] May 17, 2023 11:00 AM AMBULATORY [...] - MEDICINE [facility] [place] [facility] July 26, 2023 11:00 AM AMBULATORY - NONE [place] July 31, 2023 10:00 AM AMBULATORY - NONE [facility] [place] [facility] August 02, 2023 11:00 AM AMBULATORY [...] VA-TOBACCO FORMER USER [facility] [place] [facility] Tobacco Use History This section includes a history of the smoking, or tobacco-related health factors, that were collected on or before the date of the Encounter. The data comes from the ID facility where the Encounter took place. Date/Time Smoking Status/Tobacco Use Comment F acility Jan 26, 2023 01:30 PM VA-TOBACCO QUIT 15 YRS OR MORE [facility] [place] [facility] Jan 27, 2022 11:00 AM VA-TOBACCO FORMER USER [facility] [place] [facility] Jan 27, 2022 11:00 AM VA-TOBACCO QUIT 15 YRS OR MORE [facility] [place] [facility] Sep 17, 2020 09:00 AM VA-TOBACCO FORMER USER [facility] [place] [facility] Sep 17, 2020 09:00 AM VA-TOBACCO QUIT 15 YRS OR MORE [facility] [place] [facility] Jun 04, 2019 02:57 PM VA-TOBACCO NEVER USED [facility] [place] [facility] Mar 14, 2018 11:23 AM VA-TOBACCO FORMER USER [facility] [place] [facility] Mar 14, 2018 11:23 AM VA-TOBACCO QUIT 15 YRS OR MORE [facility] Apr 04, 2017 12:30 PM QUIT TOBACCO USE > 7 YEARS AGO [facility] Apr 05, 2016 01:02 PM QUIT TOBACCO USE > 7 YEARS AGO quit in 1984 [facility] Encounter Notes: All associated encounter notes This section contains the clinical notes associated to the Encounter. Date/Time Encounter Note(s) Provider Source May 04, 2023 10:45 AM GERIATRIC MEDICINE NOTE: LOCAL TITLE: GEROFIT VCM/VVC/VOD TELEHEALTH SUPERVISED EXERCISE STANDARD TITLE: GERIATRIC MEDICINE NOTE DATE OF NOTE: MAY 04, 2023@10:45 ENTRY DATE: MAY 04, 2023@10:45:19 AUTHOR: TERRY COATES COSIGNER: URGENCY: STATUS: COMPLETED GEROFIT VVC/VCM/VOD Telehealth Supervised Exercise NOTE [place] Provided informed consent to receive treatment via Telehealth., mailed and has been made verbally aware of Telehealth Group [place] practices. [place]'s Location: address on record unless specified below. Emergency Contact: on record unless specified below. [place] participated remotely in the Gerofit exercise program today through [place] Virtual Traffic Maintenance Officer. Activities were focused on progression of their individual exercise prescription (cardiorespiratory fitness training, strength training, etc.) and group-based exercise sessions to include, but not limited to: flexibility training, balance training & functional circuit training. Exercise participation was supervised remotely by [facility] staff and any questions/concerns were addressed with the patient. Modifications were made to programming as appropriate to suit Veterans individual needs, preferences, and whole health concerns. /johanny/ TERRY COATES PT, DPT PHYSICAL THERAPIST Signed: 05/04/2023 10:50 TERRY COATES [facility]
--- OUTSIDE RECORDS SUMMARY | 2024-03-05 06:13 | XMS_ITS | Encounter Summary ---
Author Name Department of Vetera Affairs ([place]) Organization Department of Veter[place] Address [address] [place] [id number] Care Team Providers Care Bow Making Machine Operator Name Role Phone LEN MENDOZA Primary [...] PART B Sep 23, 2014 PART B [id number] HARMONY MCCALL JR PATIENT MEDICARE (WNR) MEDICARE (M) PART A July 25, 2007 PART A [id number] [id number] HARMONY MCCALL JR PATIENT MEDICARE (WNR) MEDICARE (M) PART B July 25, 2007 PART B [id number] [id number] HARMONY MCCALL JR PATIENT MEDICARE (WNR) MEDICARE (M) PART A July 25, 2007 PART A [id number] HARMONY MCCALL JR PATIENT [facility] MEDICAL EXPENSE (OPT/PROF ) [facility] * Jan 24, 2015 [id number] [id number] 18 CAROLE MCCALL SPOUSE Selected Encounter This section includes the information on record at [place] for the Encounter. Date/Time Encounter Type Encounter Description Reason Provider Source May 11, 2023 10:20 AM EXERCISE CLASS HEALTH/WELLBEING SRVS ICD-10-CM Z72.3 Lack of physical exercise JANIE LAZCANO [facility] Encounter Template Text not used by [place] Assessments - Encounter Diagnoses This section includes the primary and secondary diagnoses documented for the Encounter. Date/Time Primary/Secondary Diagnosis Diagnosis Name Provider Source May 11, 2023 10:29 AM PRIMARY Lack of physical exercise JANIE LAZCANO [place] [facility] [place] [facility] Plan of Treatment: Future Appointments (+ [...] Appointment Type Appointme nt Facility Name May 15, 2023 10:00 AM AMBULATORY - [...] [facility] [place] [facility] Jun 28, 2023 11:00 AM AMBULATORY - NONE [place] Jul 05, 2023 11:00 AM AMBULATORY - NONE [place] Jul 19, 2023 11:00 AM AMBULATORY - NONE [place] Jul 23, 2023 02:30 PM AMBULATORY - MEDICINE [facility] [place] [facility] July 26, 2023 11:00 AM AMBULATORY - NONE [place] July 31, 2023 10:00 AM AMBULATORY - NONE [facility] [place] [facility] August 02, 2023 11:00 AM AMBULATORY - NONE [place] August 09, 2023 11:00 AM AMBULATORY - NONE [place] August 23, 2023 11:00 AM AMBULATORY - NONE [place] Aug 30, 2023 11:00 AM AMBULATORY - NONE [place] Social History: Smoking Status (Most current) and Tobacco Use (All prior to encounter date) This section includes the most current, and the historical, smoking and tobacco- related health factors from the [place] facility where the Encounter took place. Current Smoking Status This section includes the most current smoking, or tobacco-related health factor, from the [place] facility where the Encounter took place. Date/Time Current Smoking Status Comment Facil ity Jan 26, 2023 01:30 PM VA-TOBACCO QUIT 15 YRS OR MORE [place] [facility] [place] [facility] Tobacco Use History This section includes a history of the smoking, or tobacco-related health factors, that were collected on or before the date of the Encounter. The data comes from the [place] facility where the Encounter took place. Date/Time [...] AM VA-TOBACCO QUIT 15 YRS OR MORE [facility] Apr 04, 2017 12:30 PM QUIT TOBACCO USE > 7 YEARS AGO [facility] Apr 05, 2016 01:02 PM QUIT TOBACCO USE > 7 YEARS AGO quit in 1984 [facility] Encounter Notes: All associated encounter notes This section contains the clinical notes associated to the Encounter. Date/Time Encounter Note(s) Provider Source May 11, 2023 10:26 AM GERIATRIC MEDICINE NOTE: LOCAL TITLE: GEROFIT VCM/VVC/VOD TELEHEALTH SUPERVISED EXERCISE STANDARD TITLE: GERIATRIC MEDICINE NOTE DATE OF NOTE: MAY 11, 2023@10:26 ENTRY DATE: MAY 11, 2023@10:27:13 AUTHOR: JANIE LAZCANO EXP COSIGNER: URGENCY: STATUS: COMPLETED Provided informed consent to receive treatment via Telehealth., [place] mailed and has been made verbally aware of Telehealth Group [place] practices. 's Location: address on record unless specified below. Emergency Contact: on record unless specified below. [place] participated remotely in the [facility] exercise program today through [place] Virtual Sleeve Maker. Activities were focused on progression of their individual exercise prescription (cardiorespiratory fitness training, strength training, etc.) and group-based exercise sessions to include, but not limited to: flexibility training, balance training & functional circuit training. Exercise participation was supervised remotely by [facility] staff and any questions/concerns were addressed with the patient. Modifications were made to programming as appropriate to suit Veterans individual needs, preferences, and whole health concerns. /es/ Janie Lazcano PT,DPT PHYSICAL THERAPIST Signed: 05/11/2023 10:36 JANIE LAZCANO [facility]
--- OUTSIDE RECORDS SUMMARY | 2024-03-05 06:13 | XMS_ITS | Encounter Summary ---
Author Name Department of [place] Organization [place] Address [address] [place] [id number] Care Team Providers Care Hall Director Name Role Phone LEN MENDOZA Primary Care [...] PART B Sep 23, 2014 PART B [id number] HARMONY MCCALL JR PATIENT MEDICARE (WNR) MEDICARE (M) PART A July 25, 2007 PART A [id number] [id number] HARMONY MCCALL JR PATIENT MEDICARE (WNR) MEDICARE (M) PART B July 25, 2007 PART B [id number] [id number] HARMONY MCCALL JR PATIENT MEDICARE (WNR) MEDICARE (M) PART A July 25, 2007 PART A [id number] [id number] HARMONY MCCALL JR PATIENT [facility] MEDICAL EXPENSE (OPT/PROF ) [facility] * Jan 24, 2015 [id number] 18 CAROLE MCCALL SPOUSE Selected Encounter This section includes the information on record at [place] for the Encounter. Date/Time Encounter Type Encounter Description Reason Provider Source May 09, 2023 08:00 AM EXERCISE CLASS HEALTH/WELLBEING SRVS ICD-10-CM Z72.3 Lack of physical exercise DAMON ONEILL [facility] Encounter Template Text not used by [place] Assessments - Encounter Diagnoses This section includes the primary and secondary diagnoses documented for the Encounter. Date/Time Primary/Secondary Diagnosis Diagnosis Name Provider Source May 09, 2023 10:57 AM PRIMARY Lack of physical exercise DAMON ONEILL [place] [facility] [place] [facility] Plan of Treatment: Future Appointments (+ 6 months) and Future Tests (+/- 45 days) The Plan of Treatment section includes future care activities for the patient from all [place] treatmentfacilities. This section includes future appointments and future orders which are active, pending or scheduled. Future Appointments This section includes appointments that were scheduled to occur 6 months from the date of the Encounter, up to a maximum of 20 appointments. The data comes from all [place] treatment facilities. Appointment Date/Time Appointment Type Appointme nt Facility Name May 10, 2023 11:00 AM AMBULATORY - NONE [place] May 15, 2023 10:00 AM AMBULATORY - NONE [facility] [place] [facility] May 17, 2023 11:00 AM AMBULATORY - NONE [place] May 24, 2023 11:00 AM AMBULATORY - NONE [place] May 29, 2023 10:00 AM AMBULATORY - NONE [facility] [place] [facility] May 31, 2023 11:00 AM AMBULATORY - NONE [place] Jun 07, 2023 11:00 AM AMBULATORY - NONE [place] Jun 12, 2023 10:00 AM AMBULATORY - NONE [facility] [place] [facility] Jun 14, 2023 11:00 AM AMBULATORY - NONE [place] Jun 21, 2023 11:00 AM AMBULATORY - NONE [place] Jun 26, 2023 10:00 AM AMBULATORY - NONE [facility] [place] [facility] Jun 28, 2023 11:00 AM AMBULATORY - NONE [place] Jul 05, 2023 11:00 AM AMBULATORY - NONE [place] Jul 19, 2023 11:00 AM AMBULATORY - NONE [place] Jul 23, 2023 02:30 PM AMBULATORY - MEDICINE [facility] [place] [facility] July 26, 2023 11:00 AM AMBULATORY - NONE [place] July 31, 2023 10:00 AM AMBULATORY - NONE [facility] [place] [facility] August 02, 2023 11:00 AM AMBULATORY - NONE [place] August 09, 2023 11:00 AM AMBULATORY - NONE [place] August 23, 2023 11:00 AM AMBULATORY - NONE [place] Social History: Smoking Status (Most current) and Tobacco Use (All prior to encounter date) This section includes the most current, and the historical, smoking and tobacco- related health factors from the [place] facility where the Encounter took place. Current Smoking Status This section includes the most current smoking, or tobacco-related health factor, from the [place] facility where the Encounter took place. Date/Time Current Smoking Status Comment Facil ity Jan 26, 2023 01:30 PM VA-TOBACCO FORMER USER [facility] [place] [facility] Tobacco Use History This section includes a history of the smoking, or tobacco-related health factors, that were collected on or before the date of the Encounter. The data comes from the [place] facility where the Encounter took place. Date/Time Smoking Status/Tobacco Use Comment F acility Jan 26, 2023 01:30 PM VA-TOBACCO QUIT 15 YRS OR MORE [facility] [place] [facility] Jan 27, 2022 11:00 AM VA-TOBACCO FORMER USER [facility] [place] [facility] Jan 27, 2022 11:00 AM VA-TOBACCO QUIT 15 YRS OR MORE [facility] [place] [facility] Sep 17, 2020 09:00 AM VA-TOBACCO FORMER USER [facility] [place] [facility] Sep 17, 2020 09:00 AM VA-TOBACCO QUIT 15 YRS OR MORE [facility] [place] [facility] Jun 04, 2019 02:57 PM VA-TOBACCO NEVER USED [facility] [place] [facility] Mar 14, 2018 11:23 AM VA-TOBACCO FORMER USER [facility] [place] [facility] Mar 14, 2018 11:23 AM VA-TOBACCO QUIT 15 YRS OR MORE [facility] Apr 04, 2017 12:30 PM QUIT TOBACCO USE > 7 YEARS AGO [facility] Apr 05, 2016 01:02 PM QUIT TOBACCO USE > 7 YEARS AGO quit in 1984 [facility] Encounter Notes: All associated encounter notes This section contains the clinical notes associated to the Encounter. Date/Time Encounter Note(s) Provider Source May 09, 2023 10:56 AM GERIATRIC MEDICINE NOTE: LOCAL TITLE: GEROFIT VCM/VVC/VOD TELEHEALTH SUPERVISED EXERCISE STANDARD TITLE: GERIATRIC MEDICINE NOTE DATE OF NOTE: MAY 09, 2023@10:56 ENTRY DATE: MAY 09, 2023@10:56:35 AUTHOR: DOUG ONEILL COSIGNER: URGENCY: STATUS: COMPLETED GEROFIT VVC/VCM/VOD Telehealth Supervised Exercise NOTE [place] Provided informed consent to receive treatment via Telehealth., [place] mailed and has been made verbally aware of [facility] [place] practices. [place]'s Location: address on record unless specified below. Emergency Contact: on record unless specified below. [place] participated remotely in the Gerofit exercise program today through [place] Virtual Chief Mechanical Officer. Activities were focused on progression of [...] whole health concerns. /johanny/ VIOLETTA FINK LICENSE WASH PLANT OPERATOR Signed: 05/09/2023 11:05 DOUG ONEILL [facility]
--- OUTSIDE RECORDS SUMMARY | 2024-03-05 06:14 | XMS_ITS | Encounter Summary ---
Author Name Department of [place] Organization [place] Address [address] [place] [address] Care Team Providers Care Banner Painter Name Role Phone LEN MENDOZA Primary Care [...] PART B Sep 23, 2014 PART B [id number] HARMONY MCCALL JR PATIENT MEDICARE (WNR) MEDICARE (M) PART A July 25, 2007 PART A [id number] [phone] HARMONY MCCALL JR PATIENT MEDICARE (WNR) MEDICARE (M) PART B July 25, 2007 PART B [id number] [phone] HARMONY MCCALL JR PATIENT MEDICARE (WNR) MEDICARE (M) PART A July 25, 2007 PART A [id number] HARMONY MCCALL JR PATIENT [facility] MEDICAL EXPENSE (OPT/PROF ) [facility] * Jan 24, 2015 [id number] 18 CAROLE MCCALL SPOUSE Selected Encounter This section includes the information on record at [place] for the Encounter. Date/Time Encounter Type Encounter Description Reason Provider Source May 15, 2023 10:00 AM PT EDUCATION NOC GROUP NUTRITION/DIETETI CS-GROUP ICD-10-CM Z71.3 Dietary counseling and surveillance CURTIS GRACIA Erin Encounter Template Text not used by [place] Assessments - Encounter Diagnoses This section includes the primary and secondary diagnoses documented for the Encounter. Date/Time Primary/Secondary Diagnosis Diagnosis Name Provider Source May 15, 2023 12:50 PM PRIMARY Dietary counseling and surveillance CURTIS GRACIA [place] [facility] [place] [facility] Plan of Treatment: Future Appointments (+ 6 months) and Future Tests (+/- 45 days) The Plan of Treatment section includes future care activities for the patient from all [place] treatmentfacilities. This section includes future appointments and future orders which are active, pending or scheduled. Future Appointments This section includes appointments that were scheduled to occur 6 months from the date of the Encounter, up to a maximum of 20 appointments. The data comes from all [place] treatment facilities. Appointment Date/Time Appointment Type Appointme nt Facility Name May 17, 2023 11:00 AM AMBULATORY - NONE [place] May 24, 2023 11:00 AM AMBULATORY - NONE [place] May 29, 2023 10:00 AM AMBULATORY - NONE [place] [facility] [place] [facility] May [...] 11:00 AM AMBULATORY - NONE [place] Sep 06, 2023 11:00 AM AMBULATORY - NONE [place] Social History: Smoking Status (Most current) and Tobacco Use (All prior to encounter date) This section includes the most current, and the historical, smoking and tobacco- related health factors from the [place] facility where the Encounter took place. Current Smoking Status This section includes the most current smoking, or tobacco-related health factor, from the [place] facility where the Encounter took place. Date/Time Current Smoking Status Comment Facil ity Jan 26, 2023 01:30 PM VA-TOBACCO FORMER USER [place] [facility] [place] [facility] Tobacco Use History This section includes a history of the smoking, or tobacco-related health factors, that were collected on or before the date of the Encounter. The data comes from the [place] facility where the Encounter took place. Date/Time [...] TOBACCO USE > 7 YEARS AGO [facility] Apr 05, 2016 01:02 PM QUIT TOBACCO USE > 7 YEARS AGO quit in 1984 [facility] Encounter Notes: All associated encounter notes This section contains the clinical notes associated to the Encounter. Date/Time Encounter Note(s) Provider Source May 15, 2023 10:00 AM NUTRITION GROUP COUNSELING NOTE: LOCAL TITLE: NUTRITION GROUP NOTE STANDARD TITLE: NUTRITION GROUP COUNSELING NOTE DATE OF NOTE: MAY 15, 2023@10:00 ENTRY DATE: MAY 15, 2023@12:48:41 AUTHOR: CURTIS GRACIA EXP COSIGNER: URGENCY: STATUS: COMPLETED Veterans participated in HTK via [facility] on: 05/15/23. The was provided with information on [facility] and has given verbal consent to use group [facility] services for their healthcare. The copy of the Group Telehealth Agreement has been mailed to the . The [place]'s location/emergency contact number were confirmed. The Emergency Call Relay Center ([phone]) was available. The visit was locked for security and privacy. identified with 2 identifiers: [x] Full Name [x] Address This class was taught by one Registered Dietitian with one co-host dietitian Dx: Z71.3 Time Spent: 60 minutes Participants: 15 Veterans Nutrition Education Topics: Intro to [facility] HTK, Nutrient content of recipe ingredients Cooking demonstration: Sesame Noodles with Wilted Greens, Roasted Phillips Cauliflower Veterans attended the 65th class of the [facility] Healthy Teaching Kitchen. Today we went over the Group Telehealth Agreement, how HTK via [facility] works, food safety, knife safety, and creating [...] it to the Veterans preference. Next Class: 05/29/23 Participation was: [ ] minimal [ x ] active and appropriate [ ] over-productive /es/ CURTIS GRACIA, MS, RDN, LDN Staff Dietitian Signed: 05/15/2023 12:52 [facility] GRACIA [facility]
--- OUTSIDE RECORDS SUMMARY | 2024-03-05 06:14 | XMS_ITS | Encounter Summary ---
Author Name [facility] [place] Address [address] [place] [id number] Care Team Providers Care Cna Name Role Phone LEN MENDOZA Primary Care [...] PART B Sep 23, 2014 PART B [id number] HARMONY MCCALL JR PATIENT MEDICARE (WNR) MEDICARE (M) PART A July 25, 2007 PART A [id number] HARMONY MCCALL JR PATIENT MEDICARE (WNR) MEDICARE (M) PART B July 25, 2007 PART B [id number] [id number] HARMONY MCCALL JR PATIENT MEDICARE (WNR) MEDICARE (M) PART A July 25, 2007 PART A [id number] HARMONY MCCALL JR PATIENT [facility] MEDICAL EXPENSE (OPT/PROF ) [facility] [place] * Jan 24, 2015 [id number] CAROLE MCCALL SPOUSE Selected Encounter This section includes the information on record at [place] for the Encounter. Date/Time Encounter Type Encounter Description Reason Provider Source May 16, 2023 08:00 AM EXERCISE CLASS HEALTH/WELLBEING [facility] ICD-10-CM Z72.3 Lack of physical exercise DAMON ONEILL IHE Encounter Template Text not used by [place] Assessments - Encounter Diagnoses This section includes the primary and secondary diagnoses documented for the Encounter. Date/Time Primary/Secondary Diagnosis Diagnosis Name Provider Source May 16, 2023 10:56 AM PRIMARY Lack of physical exercise DAMON ONEILL [place] [facility] [place] [facility] Plan of Treatment: Future Appointments (+ 6 months) and Future Tests (+/- 45 days) The Plan of Treatment section includes future care activities for the patient from all [place] treatmentfacilities. This section includes future appointments and future orders which are active, pending or scheduled. Future Appointments This section includes appointments that were scheduled to occur 6 months from the date of the Encounter, up to a maximum of 20 appointments. The data comes from all [place] treatment facilities. Appointment Date/Time Appointment Type Appointme nt Facility Name May 17, 2023 11:00 AM AMBULATORY - NONE [facility] [facility] May 24, 2023 11:00 AM AMBULATORY - NONE [place] [facility] May 29, 2023 10:00 AM AMBULATORY - NONE [facility] [place] [facility] May 31, 2023 11:00 AM AMBULATORY - NONE [place] Jun 07, 2023 11:00 AM AMBULATORY - NONE [place] Jun 12, 2023 10:00 AM AMBULATORY - NONE [facility] [place] [facility] Jun 14, 2023 11:00 AM AMBULATORY - NONE [place] Jun 21, 2023 11:00 AM AMBULATORY - NONE [place] Jun 26, 2023 10:00 AM AMBULATORY - NONE [facility] [place] [facility] Jun 28, 2023 11:00 AM AMBULATORY - NONE [place] Jul 05, 2023 11:00 AM AMBULATORY - NONE [place] Jul 19, 2023 11:00 AM AMBULATORY - NONE [place] Jul 23, 2023 02:30 PM AMBULATORY - MEDICINE [facility] [place] [facility] July 26, 2023 11:00 AM AMBULATORY - NONE [place] July 31, 2023 10:00 AM AMBULATORY - NONE [facility] [place] [facility] August 02, 2023 11:00 AM [...] and tobacco- related health factors from the [place] facility where the Encounter took place. Current Smoking Status This section includes the most current smoking, or tobacco-related health factor, from the [place] facility where the Encounter took place. Date/Time Current Smoking Status Comment Facil ity Jan 26, 2023 01:30 PM VA-TOBACCO FORMER USER [facility] [place] [facility] Tobacco Use History This section includes a history of the smoking, or tobacco-related health factors, that were collected on or before the date of the Encounter. The data comes from the [place] facility where the Encounter took place. Date/Time Smoking Status/Tobacco Use Comment F acility Jan 26, 2023 01:30 PM VA-TOBACCO QUIT 15 YRS OR MORE [facility] [place] [facility] Jan 27, 2022 11:00 AM VA-TOBACCO FORMER USER [facility] [place] [facility] Jan 27, 2022 11:00 AM VA-TOBACCO QUIT 15 YRS OR MORE [facility] [place] [facility] Sep 17, 2020 09:00 AM VA-TOBACCO FORMER USER [facility] [place] [facility] Sep 17, 2020 09:00 AM VA-TOBACCO QUIT 15 YRS OR MORE [facility] [place] [facility] Jun 04, 2019 02:57 PM VA-TOBACCO NEVER USED [facility] [place] [facility] Mar 14, 2018 11:23 AM VA-TOBACCO FORMER USER [facility] [place] [facility] Mar 14, 2018 11:23 AM VA-TOBACCO QUIT 15 YRS OR MORE [facility] [place] [facility] Apr 04, 2017 12:30 PM [facility] Apr 05, 2016 01:02 PM QUIT TOBACCO USE > 7 YEARS AGO quit in 1984 [facility] Encounter Notes: All associated encounter notes This section contains the clinical notes associated to the Encounter. Date/Time Encounter Note(s) Provider Source May 16, 2023 10:55 AM GERIATRIC MEDICINE NOTE: LOCAL TITLE: GEROFIT VCM/VVC/VOD TELEHEALTH SUPERVISED EXERCISE STANDARD TITLE: GERIATRIC MEDICINE NOTE DATE OF NOTE: MAY 16, 2023@10:55 ENTRY DATE: MAY 16, 2023@10:55:42 AUTHOR: DOUG ONEILL COSIGNER: URGENCY: STATUS: COMPLETED GEROFIT VVC/VCM/VOD Telehealth Supervised Exercise NOTE Provided informed consent to receive treatment via Telehealth., [place] mailed and has been made verbally aware of [facility] [place] practices. 's Location: address on record unless specified below. Emergency Contact: on record unless specified below. [place] participated remotely in the Gerofit exercise program today through [place] [employer]. Activities were focused on progression of [...] whole health concerns. /johanny/ VIOLETTA FINK LICENSE DANCE ENTERTAINER Signed: 05/16/2023 11:02 DOUG ONEILL [facility]
--- OUTSIDE RECORDS SUMMARY | 2024-03-05 06:14 | XMS_ITS | Encounter Summary ---
Author Name [facility] [place] Organization [place] Address [address] [place] [id number] Care Team Providers Care Hvac Technician Name Role Phone LEN MENDOZA Primary Care [...] PART B Sep 23, 2014 PART B [id number] HARMONY MCCALL JR PATIENT MEDICARE (WNR) MEDICARE (M) PART A July 25, 2007 PART A [id number] [id number] HARMONY MCCALL JR PATIENT MEDICARE (WNR) MEDICARE (M) PART B July 25, 2007 PART B [id number] [id number] HARMONY MCCALL JR PATIENT MEDICARE (WNR) MEDICARE (M) PART A July 25, 2007 PART A [id number] HARMONY MCCALL JR [facility]IENT [facility] ([facility]PROF ) [facility] [place] * Jan 24, 2015 [id number] CAROLE MCCALL SPOUSE Selected Encounter This section includes the information on record at [place] for the Encounter. Date/Time Encounter Type Encounter Description Reason Provider Source May 21, 2023 10:17 AM EXERCISE CLASS HEALTH/WELLBEING [facility] ICD-10-CM Z72.3 Lack of physical exercise JANIE LAZCANO [facility] Encounter Template Text not used by [place] Assessments - Encounter Diagnoses This section includes the primary and secondary diagnoses documented for the Encounter. Date/Time Primary/Secondary Diagnosis Diagnosis Name Provider Source May 21, 2023 10:32 AM PRIMARY Lack of physical exercise JANIE LAZCANO [place] [facility] [place] [facility] Plan of Treatment: Future Appointments (+ 6 months) and Future Tests (+/- 45 days) The Plan of Treatment section includes future care activities for the patient from all [place] treatmentfacilities. This section includes future appointments and future orders which are active, pending or scheduled. Future Appointments This section includes appointments that were scheduled to occur 6 months from the date of the Encounter, up to a maximum of 20 appointments. The data comes from all [place] treatment facilities. Appointment Date/Time Appointment Type Appointme nt Facility Name May 24, 2023 11:00 AM AMBULATORY - NONE [facility] May 29, 2023 10:00 AM AMBULATORY - NONE [facility] [place] [facility] May 31, 2023 11:00 AM AMBULATORY - NONE [place] Jun 07, 2023 11:00 AM AMBULATORY - NONE [place] Jun 12, 2023 10:00 AM AMBULATORY - NONE [facility] [place] [facility] Jun 14, 2023 11:00 AM AMBULATORY - NONE [place] Jun 21, 2023 11:00 AM AMBULATORY - NONE [place] Jun 26, 2023 10:00 AM AMBULATORY - NONE [facility] [place] [facility] Jun 28, 2023 11:00 AM AMBULATORY - NONE [place] Jul 05, 2023 11:00 AM AMBULATORY - NONE [place] Jul 19, 2023 11:00 AM AMBULATORY - NONE [place] Jul 23, 2023 02:30 PM AMBULATORY - MEDICINE [facility] [place] [facility] July 26, 2023 11:00 AM AMBULATORY - NONE [place] July 31, 2023 10:00 AM AMBULATORY - NONE [facility] [place] [facility] August 02, 2023 11:00 AM AMBULATORY - NONE [place] August 09, 2023 11:00 AM AMBULATORY - NONE [place] August 23, 2023 11:00 AM AMBULATORY - NONE [place] Aug 30, 2023 11:00 AM AMBULATORY - NONE [place] Sep 06, 2023 11:00 AM AMBULATORY - NONE [place] Sep 13, 2023 11:00 AM AMBULATORY - NONE [place] Social History: Smoking Status (Most current) and Tobacco Use (All prior to encounter date) This section includes the most current, and the historical, smoking and tobacco- related health factors from the [place] facility where the Encounter took place. Current Smoking Status This section includes the most current smoking, or tobacco-related health factor, from the [place] facility where the Encounter took place. Date/Time Current Smoking Status Comment Facil ity Jan 26, 2023 01:30 PM VA-TOBACCO QUIT 15 YRS OR MORE [place] [facility] [place] [facility] Tobacco Use History This section includes a history of the smoking, or tobacco-related health factors, that were collected on or before the date of the Encounter. The data comes from the [place] facility where the Encounter took place. Date/Time Smoking Status/Tobacco Use Comment F acility Jan 26, 2023 01:30 PM VA-TOBACCO QUIT 15 YRS OR MORE [facility] [place] [facility] Jan 27, 2022 11:00 AM VA-TOBACCO FORMER USER [facility] [place] [facility] Jan 27, 2022 11:00 AM VA-TOBACCO QUIT 15 YRS OR MORE [facility] [place] [facility] Sep 17, 2020 09:00 AM VA-TOBACCO FORMER USER [facility] [place] [facility] Sep 17, 2020 09:00 AM VA-TOBACCO QUIT 15 YRS OR MORE [facility] [place] [facility] Jun 04, 2019 02:57 PM VA-TOBACCO NEVER USED [facility] [place] [facility] Mar 14, 2018 11:23 AM VA-TOBACCO FORMER USER [facility] [place] [facility] Mar 14, 2018 11:23 AM VA-TOBACCO QUIT 15 YRS OR MORE [facility] [place] [facility] Apr 04, 2017 12:30 PM QUIT TOBACCO USE > 7 YEARS AGO [place] [facility] [place] [place] [facility] Apr 05, 2016 01:02 PM QUIT TOBACCO USE > 7 YEARS AGO [facility] Encounter Notes: All associated encounter notes This section contains the clinical notes associated to the Encounter. Date/Time Encounter Note(s) Provider Source August 14, 2023 04:06 PM ADDENDUM: LOCAL TITLE: Addendum STANDARD TITLE: ADDENDUM DATE OF NOTE: AUGUST 14, 2023@16:06:06 ENTRY DATE: AUGUST 14, 2023@16:06:08 AUTHOR: JANIE LAZCANO EXP COSIGNER: URGENCY: STATUS: COMPLETED Called pt to discuss Gerofit, hasn't been to class recently. Pt reports he is on a later sleep schedule and plans to begin waking up early again to attend Gerofit classes. Reports he's on a bad schedule and is still motivated to participate. Plans to try to attend in the next few weeks. /johanny/ Janie Lazcano PT,DPT PHYSICAL THERAPIST Signed: 08/14/2023 16:10 Receipt Acknowledged By: 08/15/2023 07:11 /johanny/ TERRY COATES PT DPT PHYSICAL THERAPIST === --- Original Document --- 05/21/23 GEROFIT VCM/VVC/VOD TELEHEALTH SUPERVISED EXERCISE NOTE: [place] Provided informed consent to receive treatment via Telehealth., [place] mailed and has been made verbally aware of [facility] [place] practices. 's Location: address on record unless specified below. Emergency Contact: on record unless specified below. participated remotely in the Gerofit exercise program today through [place] Virtual Weed [employer]. Activities were focused on progression of their [...] individual needs, preferences, and whole health concerns. /evie Lazcano PT,DPT PHYSICAL THERAPIST Signed: 05/21/2023 10:36 JANIE LAZCANO [facility] [place] [facility] May 21, 2023 10:29 AM GERIATRIC MEDICINE NOTE: LOCAL TITLE: GEROFIT VCM/VVC/VOD TELEHEALTH SUPERVISED EXERCISE STANDARD TITLE: GERIATRIC MEDICINE NOTE DATE OF NOTE: MAY 21, 2023@10:29 ENTRY DATE: MAY 21, 2023@10:29:42 AUTHOR: JANIE LAZCANO EXP COSIGNER: URGENCY: STATUS: COMPLETED GEROFIT VCM/VVC/VOD TELEHEALTH SUPERVISED EXERCISE NOTE Has ADDENDA [place] Provided informed consent to receive treatment via Telehealth., [place] mailed and has been made verbally aware of [facility] [place] practices. 's Location: address on record unless specified below. Emergency Contact: on record unless specified below. participated remotely in the Gerofit exercise program today through [place] Virtual Weed [employer]. Activities were focused on progression of their [...] individual needs, preferences, and whole health concerns. /evie Lazcano PT,DPT PHYSICAL THERAPIST Signed: 05/21/2023 10:36 08/14/2023 ADDENDUM STATUS: COMPLETED Called pt to discuss Gerofit, hasn't been to class recently. Pt reports he is on a later sleep schedule and plans to begin waking up early again to attend Gerofit classes. Reports he's on a bad schedule and is still motivated to participate. Plans to try to attend in the next few weeks. /evie Lazcano PT,DPT PHYSICAL THERAPIST Signed: 08/14/2023 16:10 Receipt Acknowledged By: * AWAITING SIGNATURE * TERRY COATES KELLY M [facility]
--- OUTSIDE RECORDS SUMMARY | 2024-03-05 06:14 | XMS_ITS | Encounter Summary ---
Author Name [facility] [place] Organization [place] Address [address] [place] [address] Care Team Providers Care Security Researcher Name Role Phone LEN MENDOZA Primary Care [...] PART B Sep 23, 2014 PART B [id number] HARMONY MCCALL JR PATIENT MEDICARE (WNR) MEDICARE (M) PART A July 25, 2007 PART A [id number] [id number] HARMONY MCCALL JR PATIENT MEDICARE (WNR) MEDICARE (M) PART B July 25, 2007 PART B [id number] [id number] HARMONY MCCALL JR PATIENT MEDICARE (WNR) MEDICARE (M) PART A July 25, 2007 PART A [id number] HARMONY MCCALL JR PATIENT [facility] MEDICAL EXPENSE (OPT/PROF ) [facility] [place] * Jan 24, 2015 [id number] [phone] CAROLE MCCALL SPOUSE Selected Encounter This section includes the information on record at [place] for the Encounter. Date/Time Encounter Type Encounter Description Reason Provider Source May 24, 2023 11:00 AM GROUP BEHAVE COUNS 2-10 WEIGHT MGMT & MOVE! PROG - GRP ICD-10-CM E66.09 Other obesity due to excess calories MIGUEL KRAMER Erin Encounter Template Text not used by [place] Assessments - Encounter Diagnoses This section includes the primary and secondary diagnoses documented for the Encounter. Date/Time Primary/Secondary Diagnosis Diagnosis Name Provider Source May 27, 2023 07:29 PM PRIMARY Other obesity due to excess calories SANTIAGO KRAMER Plan of Treatment: Future Appointments (+ 6 months) and Future Tests (+/- 45 days) The Plan of Treatment section includes future care activities for the patient from all [place] treatmentfacilities. This section includes future appointments and future orders which are active, pending or scheduled. Future Appointments This section includes appointments that were scheduled to occur 6 months from the date of the Encounter, up to a maximum of 20 appointments. The data comes from all [place] treatment facilities. Appointment Date/Time Appointment Type Appointme nt Facility Name May 29, 2023 10:00 AM AMBULATORY - NONE [facility] [place] [facility] May 31, 2023 11:00 AM AMBULATORY - NONE [place] Jun 07, 2023 11:00 AM AMBULATORY - NONE [place] Jun 12, 2023 10:00 AM AMBULATORY - NONE [facility] [place] [facility] Jun 14, 2023 11:00 AM AMBULATORY - NONE [place] Jun 21, 2023 11:00 AM AMBULATORY - NONE [place] Jun 26, 2023 10:00 AM AMBULATORY - NONE [facility] [place] [facility] Jun 28, 2023 11:00 AM AMBULATORY - NONE [place] Jul 05, 2023 11:00 AM AMBULATORY - NONE [place] Jul 19, 2023 11:00 AM AMBULATORY - NONE [place] Jul 23, 2023 02:30 PM AMBULATORY - MEDICINE [facility] [place] [facility] July 26, 2023 11:00 AM AMBULATORY - NONE [place] July 31, 2023 10:00 AM AMBULATORY - NONE [facility] [place] [facility] August 02, 2023 11:00 AM AMBULATORY - NONE [place] August 09, 2023 11:00 AM AMBULATORY - NONE [place] August 23, 2023 11:00 AM AMBULATORY - NONE [place] Aug 30, 2023 11:00 AM AMBULATORY - NONE [place] Sep 06, 2023 11:00 AM AMBULATORY - NONE [place] Sep 13, 2023 11:00 AM AMBULATORY - NONE [place] Sep 20, 2023 11:00 AM AMBULATORY - NONE [place] Vital Signs: All taken on the encounter date This section contains inpatient and outpatient Vital Signs collected on the date of the Encounter. Date/Time Temperature Pulse Blood Pressure Respiratory Rate SP02 Pain Height Weight Body Mass Index Source May 24, 2023 11:28 AM 204.4 31 [place] Encounter Notes: All associated encounter notes This section contains the clinical notes associated to the Encounter. Date/Time Encounter Note(s) Provider Source May 24, 2023 11:00 AM MOVE NOTE: LOCAL TITLE: WEIGHT MANAGEMENT/MOVE! OUTPATIENT GROUP NOTE STANDARD TITLE: MOVE NOTE DATE OF NOTE: MAY 24, 2023@11:00 ENTRY DATE: MAY 27, 2023@19:04:30 AUTHOR: SANTIAGO KRAMER COSIGNER: URGENCY: STATUS: COMPLETED [place] participated in MOVE! Group Counseling via [facility] on May 17, 2023. The was provided with information on [facility] and has given verbal consent to use group VV services for their healthcare. The copy of the Group Telehealth Agreement has been mailed to the [place]. The Veterans location/emergency contact number were confirmed. The Emergency Call Relay Center ([phone]) was available. The visit was locked for security and privacy. identified with 2 identifiers: [ ] Full Name [ ] Address Veterans attended the [facility] MOVE! group session on this date. MOVE! is a program designed to provide education about weight management skills to overweight and obese Veterans. Group members combined to gain 5.3 pounds since their last attended group. Group members began today's session talking about their struggles this past week. Some members were suprised with their weight gain over past week. Faciliatators led a discussion on getting back on track. Overall the group was pretty quite. The next [facility] MOVE! group meeting will be held on 2023 @ 11:00am. 's reported weight was 204.4 lbs. and gained 0.1 pounds since last group attended. Dx: e66.3 z68.29 The session lasted for 30 minutes in duration. /johanny/ SANTIAGO KRAMER STAFF DIETITIAN Signed: 05/27/2023 19:29 Receipt Acknowledged By: 05/31/2023 11:38 /johanny/ GORDON PATHAK, Ph.D. CLINICAL PSYCHOLOGIST [place] [place]
--- OUTSIDE RECORDS SUMMARY | 2024-03-05 06:14 | XMS_ITS | Encounter Summary ---
Author Name [facility] [facility] [place] [facility] [place] Address [address] [place] [id number] Care Team Providers Care Industrial Rehabilitation Consultant Name Role Phone LEN MENDOZA Primary Care [...] PART B Sep 23, 2014 PART B [id number] HARMONY MCCALL JR PATIENT MEDICARE (WNR) MEDICARE (M) PART A July 25, 2007 PART A [id number] HARMONY MCCALL JR PATIENT MEDICARE (WNR) MEDICARE (M) PART B July 25, 2007 PART B [id number] HARMONY MCCALL JR PATIENT MEDICARE (WNR) MEDICARE (M) PART A July 25, 2007 PART A [id number] HARMONY MCCALL JR PATIENT [facility] MEDICAL EXPENSE (OPT/PROF ) [facility] * Jan 24, 2015 [id number] 18 CAROLE MCCALL SPOUSE Selected Encounter This section includes the information on record at [place] for the Encounter. Date/Time Encounter Type Encounter Description Reason Provider Source May 17, 2023 11:00 AM WEIGHT MGMT CLASS WEIGHT MGMT & MOVE! PROG - GRP ICD-10-CM Z68.29 Body mass index [BMI] 29.0-29.9, adult GORDON PATHAK [facility] Encounter Template Text not used by [facility] Assessments - Encounter Diagnoses This section includes the primary and secondary diagnoses documented for the Encounter. Date/Time Primary/Secondary Diagnosis Diagnosis Name Provider Source May 18, 2023 03:22 PM PRIMARY Body mass index [BMI] 29.0-29.9, adult GORDON PATHAK May 18, 2023 03:22 PM SECONDARY Overweight GORDON PATHAK Plan of Treatment: Future Appointments (+ 6 months) and Future Tests (+/- 45 days) The Plan of Treatment section includes future care activities for the patient from all [place] treatmentfacilities. This section includes future appointments and future orders which are active, pending or scheduled. Future Appointments This section includes appointments that were scheduled to occur 6 months from the date of the Encounter, up to a maximum of 20 appointments. The data comes from all [place] treatment facilities. Appointment Date/Time Appointment Type Appointme nt Facility Name May 24, 2023 11:00 AM AMBULATORY - NONE [place] May 29, 2023 10:00 AM AMBULATORY - NONE [place] [facility] [place] [facility] May 31, 2023 11:00 AM AMBULATORY - NONE [place] Jun 07, 2023 11:00 AM AMBULATORY - NONE [place] Jun 12, 2023 10:00 AM AMBULATORY - NONE [facility] [place] [facility] Jun 14, 2023 11:00 AM AMBULATORY - NONE [place] Jun 21, 2023 11:00 AM AMBULATORY - NONE [place] Jun 26, 2023 10:00 AM AMBULATORY - NONE [facility] [place] [facility] Jun 28, 2023 11:00 AM AMBULATORY - NONE [place] Jul 05, 2023 11:00 AM AMBULATORY - NONE [place] Jul 19, 2023 11:00 AM AMBULATORY - NONE [place] Jul 23, 2023 02:30 PM AM[facility]UL[facility] July 26, 2023 11:00 AM AM[facility]ULATORY - NONE [place] July 31, 2023 10:00 AM [facility] August 02, 2023 11:00 AM AMBULATORY [...] Encounter. Date/Time Encounter Note(s) Provider Source May 18, 2023 03:13 PM MOVE NOTE: LOCAL TITLE: WEIGHT MANAGEMENT/MOVE! OUTPATIENT GROUP NOTE STANDARD TITLE: MOVE NOTE DATE OF NOTE: MAY 18, 2023@15:13 ENTRY DATE: MAY 18, 2023@15:13:05 AUTHOR: GORDON PATHAK COSIGNER: URGENCY: STATUS: COMPLETED [place] participated in MOVE! Group Counseling via [facility] on May 17, 2023. The [place] was provided with information on [facility] and has given verbal consent to [...] Name [ ] Address Veterans attended the [facility] MOVE! group session on this date. MOVE! is a program designed to provide education about weight management skills to overweight and obese Veterans. Group members combined to lost 10.6 pounds since their last attended group. Group members began today's session talking about how being fit feels better than one's favorite unhealthy snack. Veterans talked about how difficult it is to really embrace a healthier lifestyle and keep it going once you've reached your goal weight. They discussed some of the challenges that they face such as nighttime snacking. Some group members have noticed a ripple effect that the MOVE program has had on their family members who are starting to eat healthier and bring healthier food options to cookouts and family meals. Veterans talked about recent examples where their primary care doctors treated them as equals in a Shared Decision Making approach and how much they liked that way of communicating. Group members shared their individual goals for the next week. The next [facility] MOVE! group meeting will be held on May 24, 2023 @ 11:00am. 's reported weight was 203.3 lbs. and lost 3.0 pounds since last group attended. Dx: Overweight Obesity E66.3 BMI 29.0-29.9 The session lasted for 1 hour in duration. /johanny/ GORDON PATHAK, Ph.D. CLINICAL PSYCHOLOGIST Signed: 05/18/2023 15:35 GORDON PATHAK
--- OUTSIDE RECORDS SUMMARY | 2024-03-05 06:15 | XMS_ITS ---
Author Name [facility] [place] Address [address] [place] [address] Care Team Providers Care Hardware Manager Name Role Phone LEN MENDOZA Primary [...] PART B Sep 23, 2014 PART B [id number] HARMONY MCCALL JR PATIENT MEDICARE (WNR) MEDICARE (M) PART A July 25, 2007 PART A [id number] HARMONY MCCALL JR PATIENT MEDICARE (WNR) MEDICARE (M) PART B July 25, 2007 PART B [id number] [phone] HARMONY MCCALL JR PATIENT MEDICARE (WNR) MEDICARE (M) PART A July 25, 2007 PART A [id number] HARMONY MCCALL JR PATIENT [facility] MEDICAL EXPENSE (OPT/PROF ) [facility] * Jan 24, 2015 [id number] CAROLE MCCALL SPOUSE Selected Encounter This section includes the information on record at [place] for the Encounter. Date/Time Encounter Type Encounter Description Reason Provider Source May 29, 2023 10:00 AM PT EDUCATION NOC GROUP NUTRITION/DIETETI CS-GROUP ICD-10-CM Z71.3 Dietary counseling and surveillance CURTIS GRACIA Erin Encounter Template Text not used by [place] Assessments - Encounter Diagnoses This section includes the primary and secondary diagnoses documented for the Encounter. Date/Time Primary/Secondary Diagnosis Diagnosis Name Provider Source May 31, 2023 09:04 AM PRIMARY Dietary counseling and surveillance [facility]TIS [facility]ACIA [facility] Plan of Treatment: Future Appointments (+ 6 months) and Future Tests (+/- 45 days) The Plan of Treatment section includes future care activities for the patient from all [place] treatmentfacilities. This section includes future appointments and future orders which are active, pending or scheduled. Future Appointments This section includes appointments that were scheduled to occur 6 months from the date of the Encounter, up to a maximum of 20 appointments. The data comes from all [place] treatment facilities. Appointment Date/Time Appointment Type Appointme nt Facility Name May 31, 2023 11:00 AM AMBULATORY - NONE [place] Jun 07, 2023 11:00 AM AMBULATORY - NONE [place] Jun 12, 2023 10:00 AM AMBULATORY - NONE [place] [facility] [place] [facility] Jun 14, 2023 11:00 AM AMBULATORY - NONE [place] Jun 21, 2023 11:00 AM AMBULATORY - NONE [place] Jun 26, 2023 10:00 AM AMBULATORY - NONE [facility] [place] [facility] Jun 28, 2023 11:00 AM AMBULATORY - NONE [place] Jul 05, 2023 11:00 AM AMBULATORY - NONE [place] Jul 19, 2023 11:00 AM AMBULATORY - NONE [place] Jul 23, 2023 02:30 PM AMBULATORY - MEDICINE [place] [facility] [place] [facility] July 26, 2023 11:00 AM AMBULATORY - NONE [place] July 31, 2023 10:00 AM AMBULATORY - NONE [facility] [place] [facility] August 02, 2023 11:00 AM AMBULATORY - NONE [place] August 09, 2023 11:00 AM AM[facility]ATORY - NONE [place] August 23, 2023 11:00 AM AM[facility]ATORY - NONE [place] Aug 30, 2023 11:00 AM AM[facility]ORY - NONE [place] Sep 06, 2023 11:00 AM AMBULATORY - NONE [place] Sep 13, 2023 11:00 AM AM[facility]ORY - NONE [place] Sep 20, 2023 11:00 AM AM[facility]ORY - NONE [place] Sep 25, 2023 11:30 AM AMBULATORY - MEDICINE [facility] [place] [facility] Social History: Smoking Status (Most current) and Tobacco Use (All prior to encounter date) This section includes the most current, and the historical, smoking and tobacco- related health factors from the [place] facility where the Encounter took place. Current Smoking Status This section includes the most current smoking, or tobacco-related health factor, from the [place] facility where the Encounter took place. Date/Time Current Smoking Status Comment Facil ity Jan 26, 2023 01:30 PM VA-TOBACCO FORMER USER [facility] [place] [facility] Tobacco Use History This section includes a history of the smoking, or tobacco-related health factors, that were collected on or before the date of the Encounter. The data comes from the [place] facility where the Encounter took place. Date/Time Smoking Status/Tobacco Use Comment F acility Jan 26, 2023 01:30 PM VA-TOBACCO QUIT 15 YRS OR MORE [facility] [place] [facility] Jan 27, 2022 11:00 AM VA-TOBACCO FORMER USER [facility] [place] [facility] Jan 27, 2022 11:00 AM VA-TOBACCO QUIT 15 YRS OR MORE [facility] [place] [facility] Sep 17, 2020 09:00 AM VA-TOBACCO FORMER USER [facility] [place] [facility] Sep 17, 2020 09:00 AM VA-TOBACCO QUIT 15 YRS OR MORE [facility] [place] [facility] Jun 04, 2019 02:57 PM VA-TOBACCO NEVER USED [facility] [place] [facility] Mar 14, 2018 11:23 AM VA-TOBACCO FORMER USER [facility] [place] [facility] Mar 14, 2018 11:23 AM VA-TOBACCO QUIT 15 YRS OR MORE [facility] [place] [facility] Apr 04, 2017 12:30 PM QUIT TOBACCO USE > 7 YEARS AGO [facility] Apr 05, 2016 01:02 PM QUIT TOBACCO USE > 7 YEARS AGO quit in 1984 [facility] Encounter Notes: All associated encounter notes This section contains the clinical notes associated to the Encounter. Date/Time Encounter Note(s) Provider Source May 29, 2023 10:00 AM NUTRITION GROUP COUNSELING NOTE: LOCAL TITLE: NUTRITION GROUP NOTE STANDARD TITLE: NUTRITION GROUP COUNSELING NOTE DATE OF NOTE: MAY 29, 2023@10:00 ENTRY DATE: MAY 31, 2023@09:03:21 AUTHOR: CURTIS GRACIA EXP COSIGNER: URGENCY: STATUS: COMPLETED Veterans participated in HTK via [facility] on: 05/29/23. The was provided with information on [facility] and has given verbal consent to use group [facility] services for their healthcare. The copy of the Group Telehealth Agreement has been mailed to the [place]. The [place]'s location/emergency contact number were confirmed. The Emergency Call Relay Center (E911) was available. The visit was locked for security and privacy. [place] identified with 2 identifiers: [x] Full Name [x] Address This class was taught by one Registered Dietitian with one co-host dietitian Dx: Z71.3 Time Spent: 60 minutes Participants: 8 Veterans Nutrition Education Topics: Intro to [facility] HTK, Nutrient content of recipe ingredients Cooking demonstration: Lemon Poppy Seed Muffins, Shrimp and Broccoli Pasta, HTK [place] Veterans attended the 66th class of the [facility] Healthy Teaching Kitchen. Today we went over the Group Telehealth Agreement, how HTK via [facility] works, food safety, knife safety, and [...] it to the Veterans preference. Next Class: 06/12/23 Participation was: [ ] minimal [ x ] active and appropriate [ ] over-productive /es/ CURTIS GRACIA, MS, RDN, LDN Staff Dietitian Signed: 05/31/2023 09:05 CURTIS GRACIA [facility]
--- OUTSIDE RECORDS SUMMARY | 2024-03-05 06:17 | XMS_ITS | Encounter Summary ---
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 Operator Name Role Phone LEN MENDOZA [...] PART B Sep 23, 2014 PART B [id number] HARMONY MCCALL JR PATIENT MEDICARE (WNR) MEDICARE (M) PART A July 25, 2007 PART A [id number] HARMONY MCCALL JR PATIENT MEDICARE (WNR) MEDICARE (M) PART B July 25, 2007 PART B [id number] [phone] [id number] HARMONY MCCALL JR PATIENT MEDICARE (WNR) MEDICARE (M) PART A July 25, 2007 PART A [id number] HARMONY MCCALL JR PATIENT [facility] MEDICAL EXPENSE (OPT/PROF ) [facility] * Jan 24, 2015 [id number] 18 CAROLE MCCALL SPOUSE Selected Encounter This section includes the information on record at [place] for the Encounter. Date/Time Encounter Type Encounter Description Reason Provider Source Jun 21, 2023 11:00 AM WEIGHT MGMT CLASS WEIGHT MGMT & MOVE! PROG - GRP ICD-10-CM Z68.29 Body mass index [BMI] 29.0-29.9, adult GORDON PATHAK [facility] Encounter Template Text not used by [place] Assessments - Encounter Diagnoses This section includes the primary and secondary diagnoses documented for the Encounter. Date/Time Primary/Secondary Diagnosis Diagnosis Name Provider Source Jun 22, 2023 07:03 PM PRIMARY Body mass index [BMI] 29.0-29.9, adult GORDON PATHAK Jun 22, 2023 07:03 PM SECONDARY Overweight GORDON PATHAK Plan of Treatment: Future Appointments (+ 6 months) and Future Tests (+/- 45 days) The Plan of Treatment section includes future care activities for the patient from all [place] treatmentfacilities. This section includes future appointments and future orders which are active, pending or scheduled. Future Appointments This section includes appointments that were scheduled to occur 6 months from the date of the Encounter, up to a maximum of 20 appointments. The data comes from all [place] treatment facilities. Appointment Date/Time Appointment Type Appointme nt Facility Name Jun 26, 2023 10:00 [facility] Jun 28, 2023 11:00 AM AM[facility]ATORY - NONE [place] Jul 05, 2023 11:00 AM AMBULATORY - NONE [place] Jul 19, 2023 11:00 AM AM[facility]ULATORY - NONE [place] Jul 23, 2023 02:30 PM [facility] July 26, 2023 11:00 AM [facility]ORY - NONE [place] July 31, 2023 10:00 AM [facility] August 02, 2023 11:00 AM AMBULATORY [...] AM AMBULATORY - NONE [place] Sep 25, 2023 11:30 AM AMBULATORY - MEDICINE [facility] [place] [facility] Oct 04, 2023 11:00 AM AMBULATORY - NONE [place] Oct 11, 2023 11:00 AM AMBULATORY - NONE [place] Oct 18, 2023 11:00 AM AMBULATORY - NONE [place] Oct 23, 2023 09:00 AM AMBULATORY - NONE [facility] [place] [facility] Oct 25, 2023 11:00 AM AMBULATORY - NONE [place] Lab Results: +/- 30 days of the encounter This section includes the Chemistry and Hematology Lab Results on record with [place] for the patient. Radiology Reports and Pathology Reports are provided separately, in subsequent sections. Lab Results This section contains the Chemistry/Hematology Results that were resulted 30 days before or 30 daysafter the date of the Encounter. Date/Time Source Result Type Result - Unit Interpretation Reference Range Comment Jul 19, 2023 09:25 AM [facility] TSH Specimen Type: SERUM No comment entered. Ordering Provider: JANE MENDOZA Report Released Date/Time: Jul 12, 2023 10:12 AM Reporting Lab: [facility]ITALRUN[facility]N [facility] [address] [facility] [address] Performing Lab: [facility]ITALRBRY[facility]ITALTRN [facility] [address] [facility] [address] TSH 0.67 u[IU]/mL 0.35-5.00 Jul 19, 2023 09:25 AM [facility]ITALRUN[facility]ITALN [facility] LIPID PANEL, NON FASTING Specimen Type: SERUM No comment entered. Ordering Provider: JANE MENDOZA Report Released Date/Time: Jul 12, 2023 10:12 AM Reporting Lab: [facility]ITALRUNITED [facility]INE HOSPITALN [facility]USE[facility] [address] [facility] [address] Performing Lab: [facility] [address] [facility] [address] CHOLESTEROL 119 mg/dL TRIGLYCERIDE 48 mg/dL 0-150 LDL calculated 63 mg/dL 0-129 CHOL/HDL 2.6 HDL CHOLESTEROL 46 mg/dL 40-60 Jul 19, 2023 09:25 AM [facility] LIVER FUNCTION Specimen Type: SERUM No comment entered. Ordering Provider: JANE MENDOZA Report Released Date/Time: Jul 12, 2023 10:12 AM Reporting Lab: [facility] [address] [facility] [address] Performing Lab: [facility] [address] [facility] [address] PROTEIN,TOTAL 6.7 g/dL 6.0-8.3 ALBUMIN 3.8 g/dL 3.5-5.0 ALKALINE PHOSPHATASE 55 U/L 40-150 AST 26 U/L 5-34 ALT 26 U/L BILIRUBIN, TOTAL 0.6 mg/dL 0.2-1.2 Jul 19, 2023 09:25 AM [facility] BASIC METABOLIC PANEL (non-fasting) Specimen Type: SERUM No comment entered. Ordering Provider: JANE MENDOZA Report Released Date/Time: Jul 12, 2023 10:12 AM Reporting Lab: [facility] [address] [facility] [address] Performing Lab: [facility] [address] [facility] [address] UREA NITROGEN 19 mg/dL 7-25 GLUCOSE 95 mg/dL 65-100 SODIUM 142 mmol/L 135-145 POTASSIUM 4.7 mmol/L 3.5-5.0 CHLORIDE 107 mmol/L 100-110 CO2 28 meq/L 20-30 CREATININE, Serum 0.90 mg/dL 0.50-1.40 eGFR(CKD-EPI 2020) 86 mL/min >60 Jul 19, 2023 09:25 AM [facility] CBC Specimen Type: BLOOD No comment entered. Ordering Provider: JANE MENDOZA Report Released Date/Time: Jul 12, 2023 10:12 AM Reporting Lab: [facility] [address] [facility] [address] Performing Lab: [address] [address] WBC 7.33 10*3/uL 4.50-11.00 RBC 4.94 10*6/uL 4.23-5.66 HGB 15.1 g/dL 12.8-17 HCT 46.2 39.2-50.4 MCV 93.5 fL 82-99 MCHC 32.7 g/dL 30.8-35.1 PLT 181 10*3/uL 140-360 RDW-CV 13.2 12.0-16.0 MCH 30.6 pg 26.2-32.6 Vital Signs: All taken on the encounter date This section contains inpatient and outpatient Vital Signs collected on the date of the Encounter. Date/Time Temperature Pulse Blood Pressure Respiratory Rate SP02 Pain Height Weight Body Mass Index Source Jun 21, 2023 11:22 AM 204.4 31 [place] Encounter Notes: All associated encounter notes This section contains the clinical notes associated to the Encounter. Date/Time Encounter Note(s) Provider Source Jun 22, 2023 06:57 PM MOVE NOTE: LOCAL TITLE: WEIGHT MANAGEMENT/MOVE! OUTPATIENT GROUP NOTE STANDARD TITLE: MOVE NOTE DATE OF NOTE: JUN 22, 2023@18:57 ENTRY DATE: JUN 22, 2023@18:58 AUTHOR: GORDON PATHAK COSIGNER: URGENCY: STATUS: COMPLETED participated in MOVE! Group Counseling via [facility] on June 21, 2023. The [place] was provided with information on [facility] and has given verbal consent to use group [facility] services for their healthcare. The copy of the Group Telehealth Agreement has been mailed to the . The Veterans location/emergency contact number were confirmed. The Emergency Call Relay Center (E911) was available. The visit was locked for security and privacy. identified with 2 identifiers: [ ] Full Name [ ] Address Veterans attended the [facility] MOVE! group session on this date. MOVE! is a program designed to provide education about weight management skills to overweight and obese Veterans. Group members combined to lost 1.0 pound since their last attended group. Group members began today's session talking about health concerns related to diabetes and heart conditions. Some Veterans wanted to discuss strategies for overcoming the temptations associated with holidays like the upcoming . Group members asked for data comparing their weight loss success for the first three months of 2023 vs. the first three months of 2022. In 2022, the group lost approximately 75 pounds during the first three months and this year the group is up approximately 2 pounds. Group members discussed these results and related them to their differing goals. Some Veterans are looking to maintain their weight while others have significant weight loss that they hope to achieve. Group members shared their individual goals for the next week. The next [facility] MOVE! group meeting will be held on June @ 11:00am. 's reported weight was 204.4 lbs. and lost 0.4 pounds since last group attended. Dx: Overweight Obesity E66.3 BMI 29.0-29.9 The session lasted for 1 hour in duration. /johanny/ GORDON PATHAK, Ph.D. CLINICAL PSYCHOLOGIST Signed: 06/22/2023 19:09 Receipt Acknowledged By: 06/26/2023 11:45 /johanny/ SANTIAGO KRAMER STAFF DIETITIAN GORDON PATHAK
--- OUTSIDE RECORDS SUMMARY | 2024-03-05 06:17 | XMS_ITS | Encounter Summary ---
Author Name [facility] [place] Address [address] [place] [address] Care Team Providers Care Research Agricultural Engineer Name Role Phone LEN MENDOZA Primary [...] PART B Sep 23, 2014 PART B [id number] HARMONY MCCALL JR PATIENT MEDICARE (WNR) MEDICARE (M) PART A July 25, 2007 PART A [id number] HARMONY MCCALL JR PATIENT MEDICARE (WNR) MEDICARE (M) PART B July 25, 2007 PART B [id number] HARMONY MCCALL JR PATIENT MEDICARE (WNR) MEDICARE (M) PART A July 25, 2007 PART A [id number] HARMONY MCCALL JR PATIENT [facility] MEDICAL EXPENSE (OPT/PROF ) [facility] * Jan 24, 2015 [id number] 18 CAROLE MCCALL SPOUSE Selected Encounter This section includes the information on record at [place] for the Encounter. Date/Time Encounter Type Encounter Description Reason Provider Source Jun 26, 2023 10:00 AM PT EDUCATION NOC GROUP NUTRITION/DIETETI CS-GROUP ICD-10-CM Z71.3 Dietary counseling and surveillance CURTIS GRACIA [facility] Encounter Template Text not used by [place] Assessments - Encounter Diagnoses This section includes the primary and secondary diagnoses documented for the Encounter. Date/Time Primary/Secondary Diagnosis Diagnosis Name Provider Source Jun 26, 2023 12:43 PM PRIMARY Dietary counseling and surveillance CURTIS GRACIA [facility] Plan of Treatment: Future Appointments [...] Appointment Type Appointme nt Facility Name Jun 28, 2023 11:00 AM AMBULATORY - NONE [place] Jul 05, 2023 11:00 AM AMBULATORY - NONE [place] Jul 19, 2023 11:00 AM AMBULATORY - NONE [place] Jul 23, 2023 02:30 PM AMBULATORY - MEDICINE [facility] July 26, 2023 11:00 AM AMBULATORY - NONE [place] July 31, 2023 10:00 AM AMBULATORY - NONE [facility] August 02, 2023 11:00 AM AMBULATORY [...] - MEDICINE [facility] [place] [facility] Oct 04, 2023 11:00 AM AMBULATORY - NONE [place] Oct 11, 2023 11:00 AM AMBULATORY - NONE [place] Oct 18, 2023 11:00 AM AMBULATORY - NONE [place] Oct 23, 2023 09:00 AM AMBULATORY - NONE [facility] [place] [facility] Oct 25, 2023 11:00 AM AMBULATORY - NONE [place] Nov 01, 2023 11:00 AM AMBULATORY - NONE [place] Lab Results: +/- 30 days of the encounter This section includes the Chemistry and Hematology Lab Results on record with [place] for the patient. Radiology Reports and Pathology Reports are provided separately, in subsequent sections. Lab Results This section contains the Chemistry/Hematology Results that were resulted 30 days before or 30 daysafter the date of the Encounter. Date/Time Source Result Type Result - Unit Interpretation Reference Range Comment Jul 19, 2023 09:25 AM [place] [facility] TSH Specimen Type: SERUM No comment entered. Ordering Provider: JANE MENDOZA Report Released Date/Time: Jul 12, 2023 10:12 AM Reporting Lab: [place] [facility] [address] [facility] [address] Performing Lab: [place] [facility] [address] [facility] [address] TSH 0.67 u[IU]/mL 0.35-5.00 Jul 19, 2023 09:25 AM [facility] LIPID PANEL, NON FASTING Specimen Type: SERUM No comment entered. Ordering Provider: JANE MENDOZA Report Released Date/Time: Jul 12, 2023 10:12 AM Reporting Lab: [facility] [address] [facility] [address] Performing Lab: [facility] [address] [facility] [address] CHOLESTEROL 119 mg/dL TRIGLYCERIDE 48 mg/dL 0-150 LDL calculated 63 mg/dL 0-129 CHOL/HDL 2.6 HDL CHOLESTEROL 46 mg/dL 40-60 Jul 19, 2023 09:25 AM [facility] LIVER FUNCTION Specimen Type: SERUM No comment entered. Ordering Provider: JANE MENDOZA Report Released Date/Time: Jul 12, 2023 10:12 AM Reporting Lab: [facility] [address] [facility] [address] Performing Lab: [address] [address] PROTEIN,TOTAL 6.7 g/dL 6.0-8.3 ALBUMIN 3.8 g/dL 3.5-5.0 ALKALINE PHOSPHATASE 55 U/L 40-150 AST 26 U/L 5-34 ALT 26 U/L BILIRUBIN, TOTAL 0.6 mg/dL 0.2-1.2 Jul 19, 2023 09:25 AM [facility] BASIC METABOLIC PANEL (non-fasting) Specimen Type: SERUM No comment entered. Ordering Provider: JANE MENDOZA Report Released Date/Time: Jul 12, 2023 10:12 AM Reporting Lab: [address] [address] Performing Lab: [address] [address] UREA NITROGEN 19 mg/dL 7-25 GLUCOSE 95 mg/dL 65-100 SODIUM 142 mmol/L 135-145 POTASSIUM 4.7 mmol/L 3.5-5.0 CHLORIDE 107 mmol/L 100-110 CO2 28 meq/L 20-30 CREATININE, Serum 0.90 mg/dL 0.50-1.40 eGFR(CKD-EPI 2020) 86 mL/min >60 Jul 19, 2023 09:25 AM [facility] CBC Specimen Type: BLOOD No comment entered. Ordering Provider: JANE MENDOZA Report Released Date/Time: Jul 12, 2023 10:12 AM Reporting Lab: [address] [address] Performing Lab: [address] [address] WBC 7.33 10*3/uL 4.50-11.00 RBC 4.94 10*6/uL 4.23-5.66 HGB 15.1 g/dL 12.8-17 HCT 46.2 39.2-50.4 MCV 93.5 fL 82-99 MCHC 32.7 g/dL 30.8-35.1 PLT 181 10*3/uL 140-360 RDW-CV 13.2 12.0-16.0 MCH 30.6 pg 26.2-32.6 Social History: Smoking Status (Most current) and [...] 26, 2023 01:30 PM VA-TOBACCO FORMER USER [place] [facility] [place] [facility] Tobacco Use History This section includes a history of the smoking, or tobacco-related health factors, that were collected on or before the date of the Encounter. The data comes from the [place] facility where the Encounter took place. Date/Time Smoking Status/Tobacco Use Comment F acility Jan 26, 2023 01:30 PM VA-TOBACCO QUIT 15 YRS OR MORE [facility] [place] [facility] Jan 27, 2022 11:00 AM VA-TOBACCO FORMER USER [facility] [place] [facility] Jan 27, 2022 11:00 AM VA-TOBACCO QUIT 15 YRS OR MORE [facility] [place] [facility] Sep 17, 2020 09:00 AM VA-TOBACCO FORMER USER [facility] [place] [facility] Sep 17, 2020 09:00 AM VA-TOBACCO QUIT 15 YRS OR MORE [facility] [place] [facility] Jun 04, 2019 02:57 PM VA-TOBACCO NEVER USED [facility] [place] [facility] Mar 14, 2018 11:23 AM VA-TOBACCO FORMER USER [facility] [place] [facility] Mar 14, 2018 11:23 AM VA-TOBACCO QUIT 15 YRS OR MORE [facility] [place] [facility] Apr 04, 2017 12:30 PM QUIT TOBACCO USE > 7 YEARS AGO [facility] [place] [facility] Apr 05, 2016 01:02 PM QUIT TOBACCO USE > 7 YEARS AGO quit in 1984 [facility] Encounter Notes: All associated encounter notes This section contains the clinical notes associated to the Encounter. Date/Time Encounter Note(s) Provider Source Jun 26, 2023 10:00 AM NUTRITION GROUP COUNSELING NOTE: LOCAL TITLE: NUTRITION GROUP NOTE STANDARD TITLE: NUTRITION GROUP COUNSELING NOTE DATE OF NOTE: JUN 26, 2023@10:00 ENTRY DATE: JUN 26, 2023@12:40:02 AUTHOR: CURTIS GRACIA EXP COSIGNER: URGENCY: STATUS: COMPLETED Veterans participated in HTK via VVC on: 06/26/23. The was provided with information on [facility] and has given verbal consent to use group [facility] services for their healthcare. The copy of the Group Telehealth Agreement has been mailed to the [place]. The 's location/emergency contact number were confirmed. The Emergency Call Relay Center (E911) was available. The visit was locked for security and privacy. [place] identified with 2 identifiers: [x] Full Name [x] Address This class was taught by one Registered Dietitian with one co-host dietitian Dx: Z71.3 Time Spent: 60 minutes Participants: 13 Veterans, 2 collaterals Nutrition Education Topics: Intro to [facility] HTK, Nutrient content of recipe ingredients Cooking demonstration: Crispy Garlic-Johanny Tofu, Mediterranean Quinoa Salad Veterans attended the 68th class of the [facility] Healthy Teaching Kitchen. Today we went over the Group Telehealth Agreement, how HTK via VVC works, food safety, knife safety, and creating [...] it to the Veterans preference. Next Class: 07/10/23 Participation was: [ ] minimal [ x ] active and appropriate [ ] over-productive /es/ CURTIS GRACIA MS, RDN, LDN Staff Dietitian Signed: 06/26/2023 12:45 CURTIS GRACIA [facility]
--- OUTSIDE RECORDS SUMMARY | 2024-03-05 06:17 | XMS_ITS | Encounter Summary ---
Author Name [facility] [place] Organization [place] Address [address] [place] [id number] Care Team Providers Care Tobacco Sample Puller Name Role Phone LEN MENDOZA Primary Care [...] PART B Sep 23, 2014 PART B [id number] HARMONY MCCALL JR PATIENT MEDICARE (WNR) MEDICARE (M) PART A July 25, 2007 PART A [id number] HARMONY MCCALL JR PATIENT MEDICARE (WNR) MEDICARE (M) PART B July 25, 2007 PART B [id number] [phone] [id number] HARMONY MCCALL JR PATIENT MEDICARE (WNR) MEDICARE (M) PART A July 25, 2007 PART A [id number] HARMONY MCCALL JR PATIENT [facility] MEDICAL EXPENSE (OPT/PROF ) [facility] * Jan 24, 2015 [id number] 18 CAROLE MCCALL SPOUSE Selected Encounter This section includes the information on record at [place] for the Encounter. Date/Time Encounter Type Encounter Description Reason Provider Source Jun 14, 2023 11:00 AM WEIGHT MGMT CLASS WEIGHT MGMT & MOVE! PROG - GRP ICD-10-CM E66.3 Overweight GORDON PATHAK [facility] Encounter Template Text not used by [facility] Assessments - Encounter Diagnoses This section includes the primary and secondary diagnoses documented for the Encounter. Date/Time Primary/Secondary Diagnosis Diagnosis Name Provider Source Jun 14, 2023 03:52 PM PRIMARY Overweight GORDON PATHAK ASMITA Jun 14, 2023 03:52 PM SECONDARY Body mass index [BMI] 29.0-29.9, adult LAWSONGORDON Hellen ASMITA Plan of Treatment: Future Appointments (+ [...] Appointment Type Appointme nt Facility Name Jun 21, 2023 11:00 AM AMBULATORY - NONE [place] Jun 26, 2023 10:00 [facility] Jun 28, 2023 11:00 AM AMBULATORY - NONE [place] Jul 05, 2023 11:00 AM AMBULATORY - NONE [place] Jul 19, 2023 11:00 AM AMBULATORY - NONE [place] Jul 23, 2023 02:30 PM [facility] July 26, 2023 11:00 AM AMBULATORY - NONE [place] July 31, 2023 10:00 AM AMBULATORY - NONE [facility] August 02, 2023 11:00 AM [...] 25, 2023 11:30 AM AM[facility]UL[facility] Oct 04, 2023 11:00 AM AMBULATORY - NONE [place] Oct 11, 2023 11:00 AM AMBULATORY - NONE [place] Oct 18, 2023 11:00 AM AMBULATORY - NONE [place] Oct 23, 2023 09:00 AM AMBULATORY - NONE [facility] Vital Signs: All taken on the encounter date This section contains inpatient and outpatient Vital Signs collected on the date of the Encounter. Date/Time Temperature Pulse Blood Pressure Respiratory Rate SP02 Pain Height Weight Body Mass Index Source Jun 14, 2023 11:17 AM 204.8 31 [place] Encounter Notes: All associated encounter notes This section contains the clinical notes associated to the Encounter. Date/Time Encounter Note(s) Provider Source Jun 14, 2023 03:34 PM MOVE NOTE: LOCAL TITLE: WEIGHT MANAGEMENT/MOVE! OUTPATIENT GROUP NOTE STANDARD TITLE: MOVE NOTE DATE OF NOTE: JUN 14, 2023@15:34 ENTRY DATE: JUN 14, 2023@15:35:01 AUTHOR: GORDON PATHAK COSIGNER: URGENCY: STATUS: COMPLETED [place] participated in MOVE! Group Counseling via VV on June 14, 2023. The [place] was provided with information on [facility] and has given verbal consent to use group [facility] services for their healthcare. The copy of the Group Telehealth Agreement has been mailed to the [place]. The Veterans location/emergency contact number were confirmed. The Emergency Call Relay Center (E911) was available. The visit was locked for security and privacy. [place] identified with 2 identifiers: [ ] Full Name [ ] Address Veterans attended the [facility] MOVE! group session on this date. MOVE! is a program designed to provide education about weight management skills to overweight and obese Veterans. Group members combined to lost 6.9 pounds since their last attended group. Group members began today's session talking about the beginning of spring and becoming more active. Veterans utilized the group mostly to catch up with one another, talking about sports and real estate. Folks talked about how it is satisfying to maintain one's weight during weeks where they have indulged quite a bit due to special events like eating out, vacation, birthdays, and holidays. A couple of group members have important medical appointments coming up in the near future and talked about their feelings about that. Group members showed their appreciation for the presentation given last week by the dietitian editing internship and shared positive feedback. Group members shared their individual goals for the next week. The next [facility] MOVE! group meeting will be held on May @ 11:00am. [place]'s reported weight was 204.8 lbs. and gained 2.2 pounds since last group attended. Dx: Overweight Obesity E66.3 BMI 29.0-29.9 The session lasted for 1 hour in duration. /johanny/ GORDON PATHAK, Ph.D. CLINICAL PSYCHOLOGIST Signed: 06/14/2023 15:57 Receipt Acknowledged By: 06/19/2023 09:59 /johanny/ SANTIAGO KRAMER STAFF DIETITIAN GORDON PATHAK
--- OUTSIDE RECORDS SUMMARY | 2024-03-05 06:17 | XMS_ITS ---
Author Name [place] Address [address] [place] [address] Care Team Providers Care Laborer [place] Name Role Phone LEN MENDOZA Primary Care [...] PART B Sep 23, 2014 PART B [id number] [phone] [id number] HARMONY MCCALL JR PATIENT MEDICARE (WNR) MEDICARE (M) PART A July 25, 2007 PART A [id number] [phone] HARMONY MCCALL JR PATIENT MEDICARE (WNR) MEDICARE (M) PART B July 25, 2007 PART B [id number] HARMONY MCCALL JR PATIENT MEDICARE (WNR) MEDICARE (M) PART A July 25, 2007 PART A [id number] HARMONY MCCALL JR PATIENT [facility] MEDICAL EXPENSE (OPT/PROF ) [facility] * Jan 24, 2015 [id number] 18 CAROLE MCCALL SPOUSE Selected Encounter This section includes the information on record at [place] for the Encounter. Date/Time Encounter Type Encounter Description Reason Provider Source Jun 12, 2023 10:00 AM PT EDUCATION NOC GROUP NUTRITION/DIETETI CS-GROUP ICD-10-CM Z71.3 Dietary counseling and surveillance CURTIS GRACIA Erin Encounter Template Text not used by [place] Assessments - Encounter Diagnoses This section includes the primary and secondary diagnoses documented for the Encounter. Date/Time Primary/Secondary Diagnosis Diagnosis Name Provider Source Jun 12, 2023 03:57 PM PRIMARY Dietary counseling and surveillance [facility] Plan of Treatment: Future Appointments [...] Appointment Type Appointme nt Facility Name Jun 14, 2023 11:00 AM AMBULATORY - NONE [place] Jun 21, 2023 11:00 AM AMBULATORY - NONE [place] Jun 26, 2023 10:00 [facility] [place] [facility] Jun 28, 2023 11:00 AM AMBULATORY - NONE [place] Jul 05, 2023 11:00 AM AMBULATORY - NONE [place] Jul 19, 2023 11:00 AM AMBULATORY - NONE [place] Jul 23, 2023 02:30 PM AMBULATORY - MEDICINE [facility] [place] [facility] July 26, 2023 11:00 AM AMBULATORY - NONE [place] July 31, 2023 10:00 AM AMBULATORY - NONE [place] [facility] [facility] [facility] August 02, 2023 11:00 AM [...] - MEDICINE [facility] [place] [facility] Oct 04, 2023 11:00 AM AMBULATORY - NONE [place] Oct 11, 2023 11:00 AM AMBULATORY - NONE [place] Oct 18, 2023 11:00 AM AMBULATORY - NONE [place] Social History: Smoking Status (Most current) and Tobacco Use (All prior to encounter date) This section includes the most current, and the historical, smoking and tobacco- related health factors from the [place] facility where the Encounter took place. Current Smoking Status This section includes the most current smoking, or tobacco-related health factor, from the [place] facility where the Encounter took place. Date/Time Current Smoking Status Comment Facil ity Jan 26, 2023 01:30 PM VA-TOBACCO FORMER USER [facility] [place] [facility] Tobacco Use History This section includes a history of the smoking, or tobacco-related health factors, that were collected on or before the date of the Encounter. The data comes from the [place] facility where the Encounter took place. Date/Time Smoking Status/Tobacco Use Comment F acility Jan 26, 2023 01:30 PM VA-TOBACCO QUIT 15 YRS OR MORE [facility] [place] [facility] Jan 27, 2022 11:00 AM VA-TOBACCO FORMER USER [facility] [place] [facility] Jan 27, 2022 11:00 AM VA-TOBACCO QUIT 15 YRS OR MORE [facility] [place] [facility] Sep 17, 2020 09:00 AM VA-TOBACCO FORMER USER [facility] [place] [facility] Sep 17, 2020 09:00 AM VA-TOBACCO QUIT 15 YRS OR MORE [facility] [place] [facility] Jun 04, 2019 02:57 PM VA-TOBACCO NEVER USED [facility] [place] [facility] Mar 14, 2018 11:23 AM VA-TOBACCO FORMER USER [facility] [place] [facility] Mar 14, 2018 11:23 AM VA-TOBACCO QUIT 15 YRS OR MORE [facility] [place] [facility] Apr 04, 2017 12:30 PM QUIT TOBACCO USE > 7 [facility] Apr 05, 2016 01:02 PM QUIT TOBACCO USE > 7 YEARS AGO quit in 1984 [facility] Encounter Notes: All associated encounter notes This section contains the clinical notes associated to the Encounter. Date/Time Encounter Note(s) Provider Source Jun 12, 2023 10:00 AM NUTRITION GROUP COUNSELING NOTE: LOCAL TITLE: NUTRITION GROUP NOTE STANDARD TITLE: NUTRITION GROUP COUNSELING NOTE DATE OF NOTE: JUN 12, 2023@10:00 ENTRY DATE: JUN 12, 2023@15:53:19 AUTHOR: CURTIS GRACIA EXP COSIGNER: URGENCY: STATUS: COMPLETED Veterans participated in HTK via [facility] on: 06/12/23. The [place] was provided with information on [facility] and has given verbal consent to use group [facility] services for their healthcare. The copy of the Group Telehealth Agreement has been mailed to the [place]. The 's location/emergency contact number were confirmed. The Emergency Call Relay Center (E911) was available. The visit was locked for security and privacy. [place] identified with 2 identifiers: [x] Full Name [x] Address This class was taught by one Registered Dietitian with one co-host dietitian Dx: Z71.3 Time Spent: 60 minutes Participants: 13 Veterans, 2 collaterals Nutrition Education Topics: Intro to [facility] HTK, Nutrient content of recipe ingredients Cooking demonstration: Mini Meatloaf with Roasted Vegetables, Microwave Vegetable Omelet, Microwave Flax Seed [place] Veterans attended the 67th class of the [facility] Healthy Teaching Kitchen. Today we went over the Group Telehealth Agreement, how HTK via [facility] works, food safety, knife safety, [...] it to the Veterans preference. Next Class: 06/26/23 Participation was: [ ] minimal [ x ] active and appropriate [ ] over-productive /es/ CURTIS GRACIA, MS, RDN, LDN Staff Dietitian Signed: 06/12/2023 15:58 CURTIS GRACIA [facility]
--- OUTSIDE RECORDS SUMMARY | 2024-03-05 06:18 | XMS_ITS | Encounter Summary ---
Author Name [facility] [facility] [place] [facility] [place] Address [address] [place] [id number] Care Team Providers Care Hoist Operator Name Role Phone LEN MENDOZA Primary [...] PART B Sep 23, 2014 PART B [id number] HARMONY MCCALL JR PATIENT MEDICARE (WNR) MEDICARE (M) PART A July 25, 2007 PART A [id number] HARMONY MCCALL JR PATIENT MEDICARE (WNR) MEDICARE (M) PART B July 25, 2007 PART B [id number] HARMONY MCCALL JR PATIENT MEDICARE (WNR) MEDICARE (M) PART A July 25, 2007 PART A [id number] HARMONY MCCALL JR PATIENT [facility] MEDICAL EXPENSE (OPT/PROF ) [facility] * Jan 24, 2015 [id number] CAROLE MCCALL SPOUSE Selected Encounter This section includes the information on record at [place] for the Encounter. Date/Time Encounter Type Encounter Description Reason Provider Source Jul 19, 2023 11:00 AM WEIGHT MGMT CLASS WEIGHT MGMT & MOVE! PROG - GRP ICD-10-CM Z68.29 Body mass index [BMI] 29.0-29.9, adult GORDON PATHAK [facility] Encounter Template Text not used by [place] Assessments - Encounter Diagnoses This section includes the primary and secondary diagnoses documented for the Encounter. Date/Time Primary/Secondary Diagnosis Diagnosis Name Provider Source Jul 20, 2023 03:18 PM PRIMARY Body mass index [BMI] 29.0-29.9, adult GORDON PATHAK Jul 20, 2023 03:18 PM SECONDARY Overweight GORDON PATHAK Plan of Treatment: Future Appointments (+ 6 months) and Future Tests (+/- 45 days) The Plan of Treatment section includes future care activities for the patient from all [place] treatmentfacilities. This section includes future appointments and future orders which are active, pending or scheduled. Future Appointments This section includes appointments that were scheduled to occur 6 months from the date of the Encounter, up to a maximum of 20 appointments. The data comes from all [place] treatment facilities. Appointment Date/Time Appointment Type Appointme nt Facility Name Jul 23, 2023 02:30 PM [facility] July 26, 2023 11:00 AM AMBULATORY - NONE [place] July 31, 2023 10:00 AM [facility] August 02, 2023 11:00 AM AMBULATORY [...] 25, 2023 11:30 AM [facility] Oct 04, 2023 11:00 AM AMBULATORY - NONE [place] Oct 11, 2023 11:00 AM AMBULATORY - NONE [place] Oct 18, 2023 11:00 AM AMBULATORY - NONE [place] Oct 23, 2023 09:00 AM [facility] Oct 25, 2023 11:00 AM AMBULATORY [...] and Hematology Lab Results on record with [place] for the patient. Radiology Reports and Pathology Reports are provided separately, in subsequent sections. Lab Results This section contains the Chemistry/Hematology Results that were resulted 30 days before or 30 daysafter the date of the Encounter. Date/Time Source Result Type Result - Unit Interpretation Reference Range Comment Jul 19, 2023 09:25 AM [facility] CBC Specimen Type: BLOOD No comment entered. Ordering Provider: JANE MENDOZA Report Released Date/Time: Jul 12, 2023 10:12 AM Reporting Lab: [facility] [address] [facility] [address] Performing Lab: [address] [address] WBC 7.33 10*3/uL 4.50-11.00 RBC 4.94 10*6/uL 4.23-5.66 HGB 15.1 g/dL 12.8-17 HCT 46.2 39.2-50.4 MCV 93.5 fL 82-99 MCHC 32.7 g/dL 30.8-35.1 PLT 181 10*3/uL 140-360 RDW-CV 13.2 12.0-16.0 MCH 30.6 pg 26.2-32.6 Jul 19, 2023 09:25 AM [facility] BASIC METABOLIC PANEL (non-fasting) Specimen Type: SERUM No comment entered. Ordering Provider: JANE MENDOZA Report Released Date/Time: Jul 12, 2023 10:12 AM Reporting Lab: [facility] [address] [facility] [address] Performing Lab: [facility] [address] [facility] [address] UREA NITROGEN 19 mg/dL 7-25 GLUCOSE 95 mg/dL 65-100 SODIUM 142 mmol/L 135-145 POTASSIUM 4.7 mmol/L 3.5-5.0 CHLORIDE 107 mmol/L 100-110 CO2 28 meq/L 20-30 CREATININE, Serum 0.90 mg/dL 0.50-1.40 eGFR(CKD-EPI 2020) 86 mL/min >60 Jul 19, 2023 09:25 AM [facility] LIPID PANEL, NON FASTING Specimen Type: SERUM No comment entered. Ordering Provider: JANE MENDOZA Report Released Date/Time: Jul 12, 2023 10:12 AM Reporting Lab: [address] [address] Performing Lab: [address] [address] CHOLESTEROL 119 mg/dL TRIGLYCERIDE 48 mg/dL 0-150 LDL calculated 63 mg/dL 0-129 CHOL/HDL 2.6 HDL CHOLESTEROL 46 mg/dL 40-60 Jul 19, 2023 09:25 AM [facility] LIVER FUNCTION Specimen Type: SERUM No comment entered. Ordering Provider: JANE MENDOZA Report Released Date/Time: Jul 12, 2023 10:12 AM Reporting Lab: [facility] [address] [facility] [address] Performing Lab: [address] [address] PROTEIN,TOTAL 6.7 g/dL 6.0-8.3 ALBUMIN 3.8 g/dL 3.5-5.0 ALKALINE PHOSPHATASE 55 U/L 40-150 AST 26 U/L 5-34 ALT 26 U/L BILIRUBIN, TOTAL 0.6 mg/dL 0.2-1.2 Jul 19, 2023 09:25 AM [facility] TSH Specimen Type: SERUM No comment entered. Ordering Provider: JANE MENDOZA Report Released Date/Time: Jul 12, 2023 10:12 AM Reporting Lab: [facility] [address] [facility] [address] Performing [facility]: [facility] [address] [facility] [address] TSH 0.67 u[IU]/mL 0.35-5.00 Vital Signs: All taken on the encounter date This section contains inpatient and outpatient Vital Signs collected on the date of the Encounter. Date/Time Temperature Pulse Blood Pressure Respiratory Rate SP02 Pain Height Weight Body Mass Index Source Jul 19, 2023 11:00 AM 207.2 32 [place] Encounter Notes: All associated encounter notes This section contains the clinical notes associated to the Encounter. Date/Time Encounter Note(s) Provider Source Jul 20, 2023 03:10 PM MOVE NOTE: LOCAL TITLE: WEIGHT MANAGEMENT/MOVE! OUTPATIENT GROUP NOTE STANDARD TITLE: MOVE NOTE DATE OF NOTE: JUL 20, 2023@15:10 ENTRY DATE: JUL 20, 2023@15:10:15 AUTHOR: GORDON PATHAK COSIGNER: URGENCY: STATUS: COMPLETED participated in MOVE! Group Counseling via [facility] on July 19, 2023. [place] was provided with information on [facility] and has given verbal consent [...] Name [ ] Address Veterans attended the [facility] MOVE! group session on this date. MOVE! is a program designed to provide education about weight management skills to overweight and obese Veterans. Group members combined to gain 7.5 pounds since their last attended group. Group members were introduced to a phd internship who will be joining the group for the next two weeks. Veterans were asked about topics that they would be interested in learning more about that she could present to them next week. Veterans agreed that they would like to hear more about weight loss medications, how they work, potential side effects, what reasonable weight loss goals could be expected, and how long people are recommended to continue to take them. Veterans talked about upcoming medical appointments that they have in the next month and began talking about weight loss goals to set for the rest of the calendar year. Group members were also encouraged by facilitators to invite their loved ones, significant others, or friends to join them in group for additional support. Group members shared their individual goals for the next week. The next [facility] MOVE! group meeting will be held on July @ 11:00am. 's reported weight was 207.2 lbs. and gained 2.2 pounds since last group attended. Dx: Overweight Obesity E66.3 BMI 29.0-29.9 The session lasted for 1 hour in duration. /johanny/ GORDON PATHAK, Ph.D. CLINICAL PSYCHOLOGIST Signed: 07/20/2023 15:29 Receipt Acknowledged By: 07/23/2023 09:50 /johanny/ SANTIAGO KRAMER STAFF DIETITIAN GORDON PATHAK
--- OUTSIDE RECORDS SUMMARY | 2024-03-05 06:18 | XMS_ITS | Encounter Summary ---
Author Name [facility] [place] [facility] [place] [facility] [place] Address [address] [place] [id number] Care Team Providers Care Culture Manager Name Role Phone LEN MENDZOA Primary Care Provider Unavaila ble Insurance Providers: [...] PART B Sep 23, 2014 PART B [id number] PK04 [phone] HARMONY MCCALL JR PATIENT MEDICARE (WNR) MEDICARE (M) PART A July 25, 2007 PART A [id number] HARMONY MCCALL JR PATIENT MEDICARE (WNR) MEDICARE (M) PART B July 25, 2007 PART B [id number] HARMONY MCCALL JR PATIENT MEDICARE (WNR) MEDICARE (M) PART A July 25, 2007 PART A [id number] HARMONY MCCALL JR PATIENT [facility] MEDICAL EXPENSE (OPT/PROF ) [facility] * Jan 24, 2015 [id number] CAROLE MCCALL SPOUSE Selected Encounter This section includes the information on record at [place] for the Encounter. Date/Time Encounter Type Encounter Description Reason Provider Source Jun 28, 2023 11:00 AM WEIGHT MGMT CLASS WEIGHT MGMT & MOVE! PROG - GRP ICD-10-CM Z68.29 Body mass index [BMI] 29.0-29.9, adult GORDON PATHAK [facility] Encounter Template Text not used by [place] Assessments - Encounter Diagnoses This section includes the primary and secondary diagnoses documented for the Encounter. Date/Time Primary/Secondary Diagnosis Diagnosis Name Provider Source Jun 28, 2023 03:49 PM PRIMARY Body mass index [BMI] 29.0-29.9, adult GORDON PATHAK Jun 28, 2023 03:49 PM SECONDARY Overweight GORDON PATHAK Plan of Treatment: Future Appointments (+ 6 months) and Future Tests (+/- 45 days) The Plan of Treatment section includes future care activities for the patient from all [place] treatmentfacilities. This section includes future appointments and future orders which are active, pending or scheduled. Future Appointments This section includes appointments that were scheduled to occur 6 months from the date of the Encounter, up to a maximum of 20 appointments. The data comes from all [place] treatment facilities. Appointment Date/Time Appointment Type Appointme nt Facility Name Jul 05, 2023 11:00 AM AMBULATORY - NONE [place] Jul 19, 2023 11:00 AM AMBULATORY - NONE [place] Jul 23, 2023 02:30 PM AMBULATORY - MEDICINE [facility] July 26, 2023 11:00 AM AMBULATORY - NONE [place] July 31, 2023 10:00 AM AMBULATORY - NONE [facility] August 02, 2023 11:00 AM AMBULATORY [...] [facility] [place] [facility] Oct 04, 2023 11:00 AM AMBULATORY - NONE [place] Oct 11, 2023 11:00 AM AMBULATORY - NONE [place] Oct 18, 2023 11:00 AM AMBULATORY - NONE [place] Oct 23, 2023 09:00 AM [facility] [place] [facility] Oct 25, 2023 11:00 AM AMBULATORY - NONE [place] Nov 01, 2023 11:00 AM AMBULATORY - NONE [place] Nov 08, 2023 11:00 AM AMBULATORY - NONE [place] Lab Results: +/- 30 days of the encounter This section includes the Chemistry and Hematology Lab Results on record with [place] for the patient. Radiology Reports and Pathology Reports are provided separately, in subsequent sections. Lab Results This section contains the Chemistry/Hematology Results that were resulted 30 days before or 30 daysafter the date of the Encounter. Date/Time Source Result Type Result - Unit Interpretation Reference Range Comment Jul 19, 2023 09:25 AM [facility] TSH Specimen Type: SERUM No comment entered. Ordering Provider: JANE MENDOZA Report Released Date/Time: Jul 12, 2023 10:12 AM Reporting Lab: [facility] [address] [facility] [address] Performing Lab: [place] [facility] [place] [facility] [address] [facility] [address] TSH 0.67 u[IU]/mL 0.35-5.00 Jul 19, 2023 09:25 AM [facility] LIPID PANEL, NON FASTING Specimen Type: SERUM No comment entered. Ordering Provider: JANE MENDOZA Report Released Date/Time: Jul 12, 2023 10:12 AM Reporting Lab: [facility] [address] [facility] [address] Performing Lab: [facility] [address] [facility] [address] CHOLESTEROL 119 mg/dL TRIGLYCERIDE 48 mg/dL 0-150 LDL calculated 63 mg/dL 0-129 CHOL/HDL 2.6 HDL CHOLESTEROL 46 mg/dL 40-60 Jul 19, 2023 09:25 AM [facility] LIVER FUNCTION Specimen Type: SERUM No comment entered. Ordering Provider: JANE MENDOZA Report Released Date/Time: Jul 12, 2023 10:12 AM Reporting Lab: [facility] [address] [facility] [address] Performing Lab: [address] [address] PROTEIN,TOTAL 6.7 g/dL 6.0-8.3 ALBUMIN 3.8 g/dL 3.5-5.0 ALKALINE PHOSPHATASE 55 U/L 40-150 AST 26 U/L 5-34 ALT 26 U/L BILIRUBIN, TOTAL 0.6 mg/dL 0.2-1.2 Jul 19, 2023 09:25 AM [facility] BASIC METABOLIC PANEL (non-fasting) Specimen Type: SERUM No comment entered. Ordering Provider: JANE MENDOZA Report Released Date/Time: Jul 12, 2023 10:12 AM Reporting Lab: [facility] [address] [facility] [address] Performing Lab: [address] [address] UREA NITROGEN 19 mg/dL 7-25 GLUCOSE 95 mg/dL 65-100 SODIUM 142 mmol/L 135-145 POTASSIUM 4.7 mmol/L 3.5-5.0 CHLORIDE 107 mmol/L 100-110 CO2 28 meq/L 20-30 CREATININE, Serum 0.90 mg/dL 0.50-1.40 eGFR(CKD-EPI 2020) 86 mL/min >60 Jul 19, 2023 09:25 AM [facility] CBC Specimen Type: BLOOD No comment entered. Ordering Provider: JANE MENDOZA Report Released Date/Time: Jul 12, 2023 10:12 AM Reporting Lab: [facility] [address] [facility] [address] Performing Lab: [address] [address] WBC 7.33 10*3/uL 4.50-11.00 RBC 4.94 10*6/uL [...] Height Weight Body Mass Index Source Jun 28, 2023 11:27 AM 204.4 31 [place] Encounter Notes: All associated encounter notes This section contains the clinical notes associated to the Encounter. Date/Time Encounter Note(s) Provider Source Jun 28, 2023 03:33 PM MOVE NOTE: LOCAL TITLE: WEIGHT MANAGEMENT/MOVE! OUTPATIENT GROUP NOTE STANDARD TITLE: MOVE NOTE DATE OF NOTE: JUN 28, 2023@15:33 ENTRY DATE: JUN 28, 2023@15:34:01 AUTHOR: GORDON PATHAK COSIGNER: URGENCY: STATUS: COMPLETED participated in MOVE! Group Counseling via [facility] on June 28, 2023. The [place] was provided with information on [facility] and has given verbal consent [...] Name [ ] Address Veterans attended the [facility] MOVE! group session on this date. MOVE! is a program designed to provide education about weight management skills to overweight and obese Veterans. Group members combined to gained 3.0 pounds since their last attended group. Group members began today's session talking about exercising less due to the wintry weather and eating more calories this past week due to the holiday. Group members talked about how some of them still want to lose weight while others wish to maintain their current weight loss. Facilitators emphasized the importance of turning to daily treats and sources of entertainment to replace the need to snack on unhealthy, high caloric foods. Group members shared their individual goals for the next week. The next [facility] MOVE! group meeting will be held on June @ 11:00am. 's reported weight was 204.4 lbs. and maintained the same weight since last group attended. Dx: Overweight Obesity E66.3 BMI 29.0-29.9 The session lasted for 1 hour in duration. /johanny/ GORDON PATHAK, Ph.D. CLINICAL PSYCHOLOGIST Signed: 06/28/2023 15:59 Receipt Acknowledged By: 07/03/2023 10:19 /johanny/ SANTIAGO KRAMER STAFF DIETITIAN GORDON PATHAK
--- OUTSIDE RECORDS SUMMARY | 2024-03-05 06:18 | XMS_ITS | Encounter Summary ---
Author Name [facility] [place] Organization [facility] [place] [place] [facility] [place] Address [address] [place] [address] Care Team Providers Care Corn Husk Baler Name Role Phone LUCAS TSRATTON Primary Care Provider Unavaila ble Insurance Providers: [...] PART B Sep 23, 2014 PART B [id number] HARMONY MCCALL JR PATIENT MEDICARE (WNR) MEDICARE (M) PART A July 25, 2007 PART A [id number] [phone] HARMONY MCCALL JR PATIENT MEDICARE (WNR) MEDICARE (M) PART B July 25, 2007 PART B [id number] [phone] HARMONY MCCALL JR PATIENT MEDICARE (WNR) MEDICARE (M) PART A July 25, 2007 PART A [id number] [phone] HARMONY MCCALL JR PATIENT [facility] MEDICAL EXPENSE (OPT/PROF ) [facility] * Jan 24, 2015 [id number] CAROLE MCCALL SPOUSE Selected Encounter This section includes the information on record at [place] for the Encounter. Date/Time Encounter Type Encounter Description Reason Provider Source Jul 23, 2023 02:30 PM OFFICE O/P EST MOD 30 MIN PRIMARY CARE/MEDICINE ICD-10-CM K21.9 Gastro-esophageal reflux disease without esophagitis ELIAN STRATTON AM Erin Encounter Template Text not used by [place] Assessments - Encounter Diagnoses This section includes the primary and secondary diagnoses documented for the Encounter. Date/Time Primary/Secondary Diagnosis Diagnosis Name Provider Source August 13, 2023 03:32 PM PRIMARY Gastro-esophageal reflux disease without esophagitis STRATTON,[facility]ILL [facility] August 13, 2023 03:32 PM SECONDARY Abdominal aortic aneurysm, without rupture, unspecified STRATTON,WILL [facility] August 13, 2023 03:32 PM SECONDARY Contact with and exposure to other hazardous substances STRATTON,WILL [facility] August 13, 2023 03:32 PM SECONDARY Essential (primary) hypertension STRATTON,WILL [facility] August 13, 2023 03:32 PM SECONDARY Hypothyroidism, unspecified STRATTON,WILL [facility] August 13, 2023 03:32 PM SECONDARY Sleep apnea, unspecified STRATTON,WILL [facility] Plan of Treatment: Future Appointments (+ 6 months) and Future Tests (+/- 45 days) The Plan of Treatment section includes future care activities for the patient from all [place] treatmentcilities. This section includes future appointments and future orders which are active, pending or scheduled. Future Appointments This section includes appointments that were scheduled to occur 6 months from the date of the Encounter, up to a maximum of 20 appointments. The data comes from all [facility] facilities. Appointment Date/Time Appointment Type Appointme nt Facility Name July 26, 2023 11:00 AM [facility] July 31, 2023 10:00 AM AMBULATORY - NONE [facility] August 02, 2023 11:00 AM AMBULATORY [...] - MEDICINE [facility] [place] [facility] Oct 04, 2023 11:00 AM AMBULATORY - NONE [facility] [facility] Oct 11, 2023 11:00 AM AMBULATORY - NONE [place] Oct 18, 2023 11:00 AM [facility]ATORY - NONE [place] Oct 23, 2023 09:00 AM AMBULATORY - NONE [facility] [place] [facility] Oct 25, 2023 11:00 AM [...] and Hematology Lab Results on record with MS for the patient. Radiology Reports and Pathology Reports are provided separately, in subsequent sections. Lab Results This section contains the Chemistry/Hematology Results that were resulted 30 days before or 30 daysafter the date of the Encounter. Date/Time Source Result Type Result - Unit Interpretation Reference Range Comment Jul 19, 2023 09:25 AM [facility] LIPID PANEL, NON FASTING Specimen Type: SERUM No comment entered. Ordering Provider: JANE STRATTON Report Released Date/Time: Jul 12, 2023 10:12 AM Reporting Lab: [facility] [address] [facility] [address] Performing Lab: [facility] [address] [address] CHOLESTEROL 119 mg/dL TRIGLYCERIDE 48 mg/dL 0-150 LDL calculated 63 mg/dL 0-129 CHOL/HDL 2.6 HDL CHOLESTEROL 46 mg/dL 40-60 Jul 19, 2023 09:25 AM [facility] TSH Specimen Type: SERUM No comment entered. Ordering Provider: JANE STRATTON Report Released Date/Time: Jul 12, 2023 10:12 AM Reporting Lab: [address] [address] Performing Lab: [address] [address] TSH 0.67 u[IU]/mL 0.35-5.00 Jul 19, 2023 09:25 AM [facility] LIVER FUNCTION Specimen Type: SERUM No comment entered. Ordering Provider: JANE STRATTON Report Released Date/Time: Jul 12, 2023 10:12 AM Reporting Lab: [address] [address] Performing Lab: [address] [address] PROTEIN,TOTAL 6.7 g/dL 6.0-8.3 ALBUMIN 3.8 g/dL 3.5-5.0 ALKALINE PHOSPHATASE 55 U/L 40-150 AST 26 U/L 5-34 ALT 26 U/L BILIRUBIN, TOTAL 0.6 mg/dL 0.2-1.2 Jul 19, 2023 09:25 AM [facility] BASIC METABOLIC PANEL (non-fasting) Specimen Type: SERUM No comment entered. Ordering Provider: JANE STRATTON Report Released Date/Time: Jul 12, 2023 10:12 AM Reporting Lab: [address] [address] Performing Lab: [address] [address] UREA NITROGEN 19 mg/dL 7-25 GLUCOSE 95 mg/dL 65-100 SODIUM 142 mmol/L 135-145 POTASSIUM 4.7 mmol/L 3.5-5.0 CHLORIDE 107 mmol/L 100-110 CO2 28 meq/L 20-30 CREATININE, Serum 0.90 mg/dL 0.50-1.40 eGFR(CKD-EPI 2020) 86 mL/min >60 Jul 19, 2023 09:25 AM [facility] CBC Specimen Type: BLOOD No comment entered. Ordering Provider: JANE STRATTON Report Released Date/Time: Jul 12, 2023 10:12 AM Reporting Lab: [facility] [address] [facility] [address] Performing Lab: [facility] [address] [facility] [address] WBC 7.33 10*3/uL 4.50-11.00 RBC 4.94 10*6/uL [...] Height Weight Body Mass Index Source Jul 23, 2023 02:43 PM 138/74 [facility] Jul 23, 2023 02:09 PM 98.2 66 146/73 20 96 2 68 214 33 [facility] Social History: Smoking Status (Most current) and Tobacco Use (All prior to encounter date) This section includes the most current, and the historical, smoking and tobacco- related health factors from the [place] facility where the Encounter took place. Current Smoking Status This section includes the most current smoking, or tobacco-related health factor, from the [place] facility where the Encounter took place. Date/Time Current Smoking Status Comment Mary cerrato Jan 26, 2023 01:30 PM VA-TOBACCO FORMER USER [facility] Tobacco Use History This section includes a history of the smoking, or tobacco-related health factors, that were collected on or before the date of the Encounter. The data comes from the [place] facility where the Encounter took place. Date/Time Smoking Status/Tobacco Use Comment F acility Jan 26, 2023 01:30 PM VA-TOBACCO QUIT 15 YRS OR MORE [facility] [place] [facility] Jan 27, 2022 11:00 AM VA-TOBACCO FORMER USER [facility] [place] [facility] Jan 27, 2022 11:00 AM VA-TOBACCO QUIT 15 YRS OR MORE [facility] [place] [facility] Sep 17, 2020 09:00 AM VA-TOBACCO FORMER USER [facility] [place] [facility] Sep 17, 2020 09:00 AM VA-TOBACCO QUIT 15 YRS OR MORE [facility] [place] [facility] Jun 04, 2019 02:57 PM VA-TOBACCO NEVER USED [facility] [place] [facility] Mar 14, 2018 11:23 AM VA-TOBACCO FORMER USER [facility] [place] [facility] Mar 14, 2018 11:23 AM VA-TOBACCO QUIT 15 YRS OR MORE [facility] [place] [facility] Apr 04, 2017 12:30 PM QUIT TOBACCO USE > 7 YEARS AGO [facility] [place] [facility] Apr 05, 2016 01:02 PM QUIT TOBACCO USE > 7 YEARS AGO quit in 1984 [facility] [place] [facility] Encounter Notes: All associated encounter notes This section contains the clinical notes associated to the Encounter. Date/Time Encounter Note(s) Provider Source Jul 23, 2023 02:36 PM PRIMARY CARE NURSE PRACTITIONER OUTPATIENT NOTE: LOCAL TITLE: NURSE PRACTITIONER OUTPATIENT NOTE STANDARD TITLE: PRIMARY CARE NURSE PRACTITIONER OUTPATIENT NOTE DATE OF NOTE: JUL 23, 2023@14:36 ENTRY DATE: JUL 23, 2023@14:36:54 AUTHOR: LUCAS STRATTON COSIGNER: URGENCY: STATUS: COMPLETED Chief complaint: Patient is a 82 year old [place]. HPI: Pleasant male [place] here to follow up. He notes slowing down... He reports he gets tired more easily. He is followed by non va cardiology and testing so far has been fine. It sounds like he has some nuclear imaging scheduled. We did get a sleep study showing mild sleep apnea and with htn history cpap recommended. He is in agreement with trial. Allergies: Patient has answered NKA The following VA and Non-VA meds were reconciled with patient. The patient was educated on the use of the medications including indication and side effects. Active and Recently Outpatient Medications (excluding Supplies): Active Outpatient Medications Status 1) LISINOPRIL 5MG TAB TAKE ONE TABLET BY MOUTH ONCE ACTIVE DAILY TO CONTROL BLOOD PRESSURE Active Non-VA Medications Status 1) Non-VA ASPIRIN 81MG CHEW TAB 81MG BY MOUTH DAILY ACTIVE 2) Non-VA BROMOCRIPTINE MESYLATE 0.8MG TAB 2.4MG BY ACTIVE MOUTH ONCE DAILY 3) Non-VA CALCIUM 200MG (CA CITRATE-950MG) TAB 600 MG BY ACTIVE MOUTH DAILY 4) Non-VA CETIRIZINE HCL 10MG TAB 10MG BY MOUTH DAILY ACTIVE 5) Non-VA CHOLECALCIF 25MCG (D3-1,000UNIT) TAB 1000UNIT ACTIVE BY MOUTH DAILY 6) Non-VA LEVOTHYROXINE NA (SYNTHROID) 125MCG TAB 125MCG ACTIVE BY MOUTH EVERY MORNING 30 MINUTES BEFORE BREAKFAST 7) Non-VA LOSARTAN 100MG TAB 100MG BY MOUTH ONCE DAILY ACTIVE 8) Non-VA METOPROLOL SUCCINATE 50MG SA TAB 50MG BY MOUTH ACTIVE ONCE DAILY 9) Non-VA OTHER CAP/TAB 5 MG BY MOUTH DAILY ACTIVE 10) Non-VA TAMSULOSIN HCL 0.4MG CAP 0.4MG BY MOUTH ONCE ACTIVE DAILY 11 Total Medications Review of Systems: Constitutional: (-)for Fevers, chills, weakness, nights sweats On examination: 98.2 F [36.8 C] (07/23/2023 14:09)146/73 (07/23/2023 14:09)66 (07/23/2023 14:09) 20 (07/23/2023 14:09)2 (07/23/2023 14:09)BMI: 32.6214 lb [97.07 kg] (07/23/2023 14:09) is alert and oriented X3 Neck: supple without masses, trachea midline, ln not palpable, no thyromegaly Cardiovasc: 2plus carotids without bruits, no JVD Heart Reguler rate and rhythm NL S1S2 no S3 or murmur Respiration: Normal respiratory effort, lungs clear ABD: Benign normal active bowel sounds no HSM no rebound or referred pain EXT: no clubbing, edema, or cyanosis All diagnostics from past month were reviewed with patient. Assessment/plan: Active problems - Computerized Problem List is the source for the followin. Abdominal aortic aneurysm - follows with imaging every 6 mos, non va cardiology. 2. Gastroesophageal reflux disease - stable 3. Benign hypertension - repeat 138/74 4. Hypothyroidism - euthroid 5. sleep apnea - see above Review of medial record = 5mins Time spent with Patient including shared decision making = 20 mins Post visit documentation = 5mins Total time = 30 mins Follow up visit in 6 mos. Alert to PACT RN - Labs as necessary to address clinical status. 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 Printed information was offered and provided if desired. /caregiver has no health or medical concerns related to their concern of environmental exposure. No questions at this time [place]/caregiver was informed of local points of contact. Contact information for local resources: Benefits/Claim for Disability Compensation Questions:National VBA [place] Healthcare Enrollment: [facility] Eligibility direct dialed at [phone] Registry: [facility] Coordinator ext [phone] The following connections were provided to the /caregiver: No connections needed at this time HTN Assess for Elevated BP>=140/90: Repeat blood pressure: 138/74 The patient's blood pressure is usually adequately controlled. No medication changes are indicated at this time. Medication Reconciliation: Outpatient: Has the patient been taking medications as documented in the EMLR? YES: The patient has been taking medications as documented in the EMLR. Essential Medication List for Review used to complete this medication reconciliation. INCLUDED IN THIS LIST: Alphabetical list of active outpatient prescriptions dispensed from this [place] (local) and dispensed from another VA or DoD facility (remote) as well as inpatient orders (local, pending and active), local clinic medications, locally documented non-VA medications, and local prescriptions that have or been discontinued in the past 90 days. - All changes in medications, including all non-VA/Herbal/OTC medications were entered into CPRS. - If there were any medications the patient should no longer take, they were discontinued. - The patient/caregiver was instructed to update this list, discard old lists, and take this list to the next appointment, whether with a VA or non-VA provider. /johanny/ Lucas Stratton DNP, SOCCER PLAYER-BC, CNL Primary Care Nurse Practitioner Signed: 07/23/2023 14:43 LUCAS STRATTON [facility] [place] [facility] Jul 23, 2023 02:12 PM PREVENTIVE MEDICINE NURSING NOTE: LOCAL TITLE: CLINICAL REMINDERS/NURSING STANDARD TITLE: PREVENTIVE MEDICINE NURSING NOTE DATE OF NOTE: JUL 23, 2023@14:12 ENTRY DATE: JUL 23, 2023@14:12:07 AUTHOR: ARRON AUGUSTINIGNER: URGENCY: STATUS: COMPLETED Suicide Screen: C-SSRS Screening [place]-Suicide Severity Rating Scale (C-SSRS Screener) 1. Over the past month, have you wished you were or wished you could go to sleep and not wake up? No 2. Over the past month, have you had any actual thoughts of killing yourself? No 3. Over the past month, have you been thinking about how you might do this? Response not required due to responses to other questions. 4. Over the past month, have you had these thoughts and had some intention of acting on them? Response not required due to responses to other questions. 5. Over the past month, have you started to work out or worked out the details of how to kill yourself? Response not required due to responses to other questions. 6. If yes, at any time in the past month did you intend to carry out this plan? Response not required due to responses to other questions. 7. In your lifetime, have you ever done anything, started to do anything, or prepared to do anything to end your life (for example, collected pills, obtained a gun, gave away valuables, went to the roof but didn't jump)? No 8. If YES, was this within the past 3 months? Response not required due to responses to other questions. Homelessness/Food Insecurity Screen: In the past 2 months, have you been living in stable housing that you own, rent, or stay in as part of a household? Yes - Living in stable housing. Are you worried or concerned that in the next 2 months you may NOT have stable housing that you own, rent, or stay in as part of a household? No - Not worried about housing near future The reports the following: Within the past 12 months, you worried whether your food would run out before you got money to buy more. Never true Within the past 12 months, the food you bought just didn't last and you didn't have money to get more. Never true /johanny/ Arron [facility] Slice Cutting Machine Operator SOFTWARE DEVELOPMENT COORDINATOR,PRIMARY CARE Signed: 07/23/2023 14:13 ARRON AUGUSTIN [facility]
--- OUTSIDE RECORDS SUMMARY | 2024-03-05 06:18 | XMS_ITS | Encounter Summary ---
Author Name [facility] [place] Organization [facility] [place] Address [address] [place] [address] Care Team Providers Care Hand Trimmer Name Role Phone LEN MENDOZA Primary Care [...] PART B Sep 23, 2014 PART B [id number] HARMONY MCCALL JR PATIENT MEDICARE (WNR) MEDICARE (M) PART A July 25, 2007 PART A [id number] HARMONY MCCALL JR PATIENT MEDICARE (WNR) MEDICARE (M) PART B July 25, 2007 PART B [id number] HARMONY MCCALL JR PATIENT MEDICARE (WNR) MEDICARE (M) PART A July 25, 2007 PART A [id number] HARMONY MCCALL JR PATIENT [facility] MEDICAL EXPENSE (OPT/PROF ) [facility] * Jan 24, 2015 [id number] [phone] CAROLE MCCALL SPOUSE Selected Encounter This section includes the information on record at [place] for the Encounter. Date/Time Encounter Type Encounter Description Reason Provider Source Jul 05, 2023 11:00 AM GROUP BEHAVE COUNS 2-10 WEIGHT MGMT & MOVE! PROG - GRP ICD-10-CM E66.3 Overweight NIA,MIGUEL Jarvis IHErin Encounter Template Text not used by [place] Assessments - Encounter Diagnoses This section includes the primary and secondary diagnoses documented for the Encounter. Date/Time Primary/Secondary Diagnosis Diagnosis Name Provider Source Jul 06, 2023 01:14 PM PRIMARY Overweight SANTIAGO KRAMER Jul 06, 2023 01:14 PM SECONDARY Body mass index [BMI] 29.0-29.9, [...] Appointment Type Appointme nt Facility Name Jul 19, 2023 11:00 AM AMBULATORY - NONE [facility] [facility] Jul 23, 2023 02:30 PM AMBULATORY - MEDICINE [facility] July 26, 2023 11:00 AM AMBULATORY - NONE [place] July 31, 2023 10:00 AM AMBULATORY - NONE [facility] August 02, 2023 11:00 AM [...] 25, 2023 11:30 AM AMBULATORY - MEDICINE [facility] Oct 04, 2023 11:00 AM AMBULATORY - NONE [place] Oct 11, 2023 11:00 AM AMBULATORY - NONE [place] Oct 18, 2023 11:00 AM AMBULATORY - NONE [place] Oct 23, 2023 09:00 AM AMBULATORY - NONE [facility] [place] [facility] Oct 25, 2023 11:00 AM AMBULATORY - NONE [place] Nov 01, 2023 11:00 AM AMBULATORY - NONE [place] Nov 08, 2023 11:00 AM AMBULATORY - NONE [place] Nov 15, 2023 11:00 AM AMBULATORY - NONE [facility] [facility] Lab Results: +/- 30 days of the encounter This section includes the Chemistry and Hematology Lab Results on record with VA for the patient. Radiology Reports and Pathology Reports are provided separately, in subsequent sections. Lab Results This section contains the Chemistry/Hematology Results that were resulted 30 days before or 30 daysafter the date of the Encounter. Date/Time Source Result Type Result - Unit Interpretation Reference Range Comment Jul 19, 2023 09:25 AM [facility] TSH Specimen Type: SERUM No comment entered. Ordering Provider: JANE MENDOZA Report Released Date/Time: Jul 12, 2023 10:12 AM Reporting Lab: [facility] [address] [facility] [address] Performing Lab: [facility] [address] [facility] [address] TSH 0.67 u[IU]/mL 0.35-5.00 Jul 19, 2023 09:25 AM [facility] LIPID PANEL, NON FASTING Specimen Type: SERUM No comment entered. Ordering Provider: JANE MENDOZA Report Released Date/Time: Jul 12, 2023 10:12 AM Reporting Lab: [facility] [address] [facility] [address] Performing Lab: [facility] [address] [facility] [address] CHOLESTEROL 119 mg/dL TRIGLYCERIDE 48 mg/dL 0-150 LDL calculated 63 mg/dL 0-129 CHOL/HDL 2.6 HDL CHOLESTEROL 46 mg/dL 40-60 Jul 19, 2023 09:25 AM [facility] LIVER FUNCTION Specimen Type: SERUM No comment entered. Ordering Provider: JANE MENDOZA Report Released Date/Time: Jul 12, 2023 10:12 AM Reporting Lab: [facility] [address] [facility] [address] Performing Lab: [address] [address] PROTEIN,TOTAL 6.7 g/dL 6.0-8.3 ALBUMIN 3.8 g/dL 3.5-5.0 ALKALINE PHOSPHATASE 55 U/L 40-150 AST 26 U/L 5-34 ALT 26 U/L BILIRUBIN, TOTAL 0.6 mg/dL 0.2-1.2 Jul 19, 2023 09:25 AM [facility] BASIC METABOLIC PANEL (non-fasting) Specimen Type: SERUM No comment entered. Ordering Provider: JANE MENDOZA Report Released Date/Time: Jul 12, 2023 10:12 AM Reporting Lab: [facility] [address] [facility] [address] Performing Lab: [address] [address] UREA NITROGEN 19 mg/dL 7-25 GLUCOSE 95 mg/dL 65-100 SODIUM 142 mmol/L 135-145 POTASSIUM 4.7 mmol/L 3.5-5.0 CHLORIDE 107 mmol/L 100-110 CO2 28 meq/L 20-30 CREATININE, Serum 0.90 mg/dL 0.50-1.40 eGFR(CKD-EPI 2020) 86 mL/min >60 Jul 19, 2023 09:25 AM [facility] CBC Specimen Type: BLOOD No comment entered. Ordering Provider: JANE MENDOZA Report Released Date/Time: Jul 12, 2023 10:12 AM Reporting Lab: [facility] [address] [facility] [address] Performing Lab: [address] [address] WBC 7.33 10*3/uL 4.50-11.00 RBC 4.94 10*6/uL 4.23-5.66 HGB 15.1 g/dL 12.8-17 HCT 46.2 39.2-50.4 MCV 93.5 fL 82-99 MCHC 32.7 g/dL 30.8-35.1 PLT 181 10*3/uL 140-360 RDW-CV 13.2 12.0-16.0 MCH 30.6 pg 26.2-32.6 Encounter Notes: All associated encounter notes This section contains the clinical notes associated to the Encounter. Date/Time Encounter Note(s) Provider Source Jul 05, 2023 11:00 AM MOVE NOTE: LOCAL TITLE: WEIGHT MANAGEMENT/MOVE! OUTPATIENT GROUP NOTE STANDARD TITLE: MOVE NOTE DATE OF NOTE: JUL 05, 2023@11:00 ENTRY DATE: JUL 06, 2023@09:44:27 AUTHOR: SANTIAGO KRAMER COSIGNER: URGENCY: STATUS: COMPLETED participated in MOVE! Group Counseling via VV on July 05, 2023. The was provided with information on [facility] and has given verbal consent to use group VV services for their healthcare. The copy of the Group Telehealth Agreement has been mailed to the [place]. The Veterans location/emergency contact number were confirmed. The Emergency Call Relay Center (E911) was available. The visit was locked for security and privacy. [place] identified with 2 identifiers: [ ] Full Name [ ] Address Veterans attended the [facility] MOVE! group session on this date. MOVE! is a program designed to provide education about weight management skills to overweight and obese Veterans. Group members combined to gained 1.9 pounds since their last attended group. Group members began today's session talking about their past week and some members shared their current health concerns. Some group members shared their experience with the eclipse and led to a discussion about eating out of the house. Facilitators encouraged veterans to focus on the variables the can control like exercising. Overall group members were rather quiet today. The next [facility] MOVE! group meeting will be held on June @ 11:00am. [place]'s reported weight was 205 lbs. and gained 0.6 lbs since last group attended. Dx: Overweight E66.3 BMI 29.0-29.9 The session lasted for 1 hour in duration. WHOLE HEALTH ====== WHOLE HEALTH EDUCATION ====== Whole Health Education was provided. /johanny/ SANTIAGO KRAMER STAFF DIETITIAN Signed: 07/06/2023 13:15 Receipt Acknowledged By: 07/09/2023 14:10 /johanny/ GORDON PATHAK, Ph.D. CLINICAL PSYCHOLOGIST SANTIAGO KRAMER
--- OUTSIDE RECORDS SUMMARY | 2024-03-05 06:19 | XMS_ITS ---
Author Name [place] Address [address] [place] [address] Care Team Providers Care Lockstitch Binder Name Role Phone LEN MENDOZA Primary Care [...] PART B Sep 23, 2014 PART B [id number] HARMONY MCCALL JR PATIENT MEDICARE (WNR) MEDICARE (M) PART A July 25, 2007 PART A [id number] [phone] HARMONY MCCALL JR PATIENT MEDICARE (WNR) MEDICARE (M) PART B July 25, 2007 PART B [id number] [phone] HARMONY MCCALL JR PATIENT MEDICARE (WNR) MEDICARE (M) PART A July 25, 2007 PART A [id number] HARMONY MCCALL JR PATIENT [facility] (OPT/PROF ) [facility] * Jan 24, 2015 [id number] CAROLE MCCALL SPOUSE Selected Encounter This section includes the information on record at [place] for the Encounter. Date/Time Encounter Type Encounter Description Reason Provider Source July 31, 2023 10:00 AM PT EDUCATION NOC GROUP NUTRITION/DIETETI CS-GROUP ICD-10-CM Z71.3 Dietary counseling and surveillance CURTIS GRACIA [facility] Encounter Template Text not used by [place] Assessments - Encounter Diagnoses This section includes the primary and secondary diagnoses documented for the Encounter. Date/Time Primary/Secondary Diagnosis Diagnosis Name Provider Source July 31, 2023 03:34 PM PRIMARY Dietary counseling and surveillance CURTIS GRACIA [facility] Plan of Treatment: Future Appointments [...] Date/Time Appointment Type Appointme nt Facility Name August 02, 2023 11:00 AM AMBULATORY - [...] 25, 2023 11:30 AM [facility] Oct 04, 2023 11:00 AM AMBULATORY - NONE [place] Oct 11, 2023 11:00 AM AMBULATORY - NONE [place] Oct 18, 2023 11:00 AM AMBULATORY - NONE [place] Oct 23, 2023 09:00 AM [facility] [place] [facility] Oct 25, 2023 11:00 AM [...] 2023 02:00 PM [facility]UL[facility] - NONE [facility] [place] [facility] Dec 06, 2023 11:00 AM AMBULATORY - NONE [place] Lab Results: +/- 30 days of the encounter This section includes the Chemistry and Hematology Lab Results on record with [place] for the patient. Radiology Reports and Pathology Reports are provided separately, in subsequent sections. Lab Results This section contains the Chemistry/Hematology Results that were resulted 30 days before or 30 daysafter the date of the Encounter. Date/Time Source Result Type Result - Unit Interpretation Reference Range Comment Jul 19, 2023 09:25 AM [facility] LIPID PANEL, NON FASTING Specimen Type: SERUM No comment entered. Ordering Provider: JANE MENDOZA Report Released Date/Time: Jul 12, 2023 10:12 AM Reporting Lab: [facility] [address] [address] Performing Lab: [facility] [address] [address] CHOLESTEROL 119 mg/dL TRIGLYCERIDE 48 mg/dL 0-150 LDL calculated 63 mg/dL 0-129 CHOL/HDL 2.6 HDL CHOLESTEROL 46 mg/dL 40-60 Jul 19, 2023 09:25 AM [facility] TSH Specimen Type: SERUM No comment entered. Ordering Provider: JANE MENDOZA Report Released Date/Time: Jul 12, 2023 10:12 AM Reporting Lab: [facility] [place] [facility] [address] [address] Performing Lab: [facility] [address] [address] TSH 0.67 u[IU]/mL 0.35-5.00 Jul 19, 2023 09:25 AM [facility] LIVER FUNCTION Specimen Type: SERUM No comment entered. Ordering Provider: JANE MENDOZA Report Released Date/Time: Jul 12, 2023 10:12 AM Reporting Lab: [facility] [address] [address] Performing Lab: [address] [address] PROTEIN,TOTAL 6.7 g/dL 6.0-8.3 ALBUMIN 3.8 g/dL 3.5-5.0 ALKALINE PHOSPHATASE 55 U/L 40-150 AST 26 U/L 5-34 ALT 26 U/L BILIRUBIN, TOTAL 0.6 mg/dL 0.2-1.2 Jul 19, 2023 09:25 AM [facility] BASIC METABOLIC PANEL (non-fasting) Specimen Type: SERUM No comment entered. Ordering Provider: JANE MENDOZA Report Released Date/Time: Jul 12, 2023 10:12 AM Reporting Lab: [address] [address] Performing Lab: [address] [address] UREA NITROGEN 19 mg/dL 7-25 GLUCOSE 95 mg/dL 65-100 SODIUM 142 mmol/L 135-145 POTASSIUM 4.7 mmol/L 3.5-5.0 CHLORIDE 107 mmol/L 100-110 CO2 28 meq/L 20-30 CREATININE, Serum 0.90 mg/dL 0.50-1.40 eGFR(CKD-EPI 2020) 86 mL/min >60 Jul 19, 2023 09:25 AM [facility] CBC Specimen Type: BLOOD No comment entered. Ordering Provider: JANE MENDOZA Report Released Date/Time: Jul 12, 2023 10:12 AM Reporting Lab: [address] [address] Performing Lab: [address] [address] WBC 7.33 10*3/uL 4.50-11.00 RBC 4.94 10*6/uL [...] and tobacco- related health factors from the [place] facility where the Encounter took place. Current Smoking Status This section includes the most current smoking, or tobacco-related health factor, from the [place] facility where the Encounter took place. Date/Time Current Smoking Status Comment Facil ity Jan 26, 2023 01:30 PM VA-TOBACCO FORMER USER [place] [facility] [place] [facility] Tobacco Use History This section includes a history of the smoking, or tobacco-related health factors, that were collected on or before the date of the Encounter. The data comes from the [place] facility where the Encounter took place. Date/Time Smoking Status/Tobacco Use Comment F acility Jan 26, 2023 01:30 PM VA-TOBACCO QUIT 15 YRS OR MORE [place] [facility] [place] [facility] Jan 27, 2022 11:00 AM VA-TOBACCO FORMER USER [facility] [place] [facility] Jan 27, 2022 11:00 AM VA-TOBACCO QUIT 15 YRS OR MORE [facility] [facility] Sep 17, 2020 09:00 AM VA-TOBACCO FORMER USER [facility] [facility] Sep 17, 2020 09:00 AM VA-TOBACCO QUIT 15 YRS OR MORE [facility] [place] [facility] Jun 04, 2019 02:57 PM VA-TOBACCO NEVER USED [facility] [place] [facility] Mar 14, 2018 11:23 AM VA-TOBACCO FORMER USER [facility] [place] [facility] Mar 14, 2018 11:23 AM VA-TOBACCO QUIT 15 YRS OR MORE [facility] [place] [facility] Apr 04, 2017 12:30 PM QUIT TOBACCO USE > 7 YEARS AGO [facility] [place] [facility] Apr 05, 2016 01:02 PM QUIT TOBACCO USE > 7 YEARS AGO quit in 1984 [facility] Encounter Notes: All associated encounter notes This section contains the clinical notes associated to the Encounter. Date/Time Encounter Note(s) Provider Source July 31, 2023 10:00 AM NUTRITION GROUP COUNSELING NOTE: LOCAL TITLE: NUTRITION GROUP NOTE STANDARD TITLE: NUTRITION GROUP COUNSELING NOTE DATE OF NOTE: JULY 31, 2023@10:00 ENTRY DATE: JULY 31, 2023@15:32:43 AUTHOR: CURTIS GRACIA EXP COSIGNER: URGENCY: STATUS: COMPLETED Veterans participated in HTK via VV on: 07/31/23. The [place] was provided with information on [facility] and has given verbal consent to use group [facility] services for their healthcare. The copy of the Group Telehealth Agreement has been mailed to the . The 's location/emergency contact number were confirmed. The Emergency Call Relay Center (E911) was available. The visit was locked for security and privacy. identified with 2 identifiers: [x] Full Name [x] Address This class was taught by one Registered Dietitian with one co-host dietitian Dx: Z71.3 Time Spent: 60 minutes Participants: 7 Veterans, 1 collaterals Nutrition Education Topics: Intro to [facility] HTK, Nutrient content of recipe ingredients Cooking demonstration: Cheesy Broccoli Rice, Blackened [place] [employer] Veterans attended the 69th class of the [facility] Healthy Teaching Kitchen. Today we went over the Group Telehealth Agreement, how HTK via VV works, food safety, knife safety, and creating [...] it to the Veterans preference. Next Class: 08/14/23 Participation was: [ ] minimal [ x ] active and appropriate [ ] over-productive /es/ CURTIS GRACIA, MS, RDN, LDN Staff Dietitian Signed: 07/31/2023 15:36 CURTIS GRACIA [facility]
--- OUTSIDE RECORDS SUMMARY | 2024-03-05 06:19 | XMS_ITS | Encounter Summary ---
Author Name [facility] [place] Address [address] [place] [address] Care Team Providers Care Social Media Designer Name Role Phone LEN MENDOZA Primary Care [...] PART B Sep 23, 2014 PART B [id number] HARMONY MCCALL JR PATIENT MEDICARE (WNR) MEDICARE (M) PART A July 25, 2007 PART A [id number] [phone] HARMONY MCCALL JR PATIENT MEDICARE (WNR) MEDICARE (M) PART B July 25, 2007 PART B [id number] HARMONY MCCALL JR PATIENT MEDICARE (WNR) MEDICARE (M) PART A July 25, 2007 PART A [id number] HARMONY MCCALL JR PATIENT [facility] (OPT/PROF ) [facility] * Jan 24, 2015 [id number] [phone] CAROLE MCCALL SPOUSE Selected Encounter This section includes the information on record at [place] for the Encounter. Date/Time Encounter Type Encounter Description Reason Provider Source July 26, 2023 11:00 AM GROUP BEHAVE COUNS 2-10 WEIGHT MGMT & MOVE! PROG - GRP ICD-10-CM E66.3 Overweight NIAMIGUEL IHErin Encounter Template Text not used by [place] Assessments - Encounter Diagnoses This section includes the primary and secondary diagnoses documented for the Encounter. Date/Time Primary/Secondary Diagnosis Diagnosis Name Provider Source July 27, 2023 10:02 AM PRIMARY Overweight SANTIAGO KRAMER July 27, 2023 10:02 AM SECONDARY Body mass index [BMI] 29.0-29.9, [...] Appointment Type Appointme nt Facility Name July 31, 2023 10:00 AM [facility] August 02, 2023 11:00 AM AMBULATORY [...] 25, 2023 11:30 AM [facility] Oct 04, 2023 11:00 AM AMBULATORY - NONE [place] Oct 11, 2023 11:00 AM AMBULATORY - NONE [place] Oct 18, 2023 11:00 AM AMBULATORY - NONE [place] Oct 23, 2023 09:00 AM AMBULATORY - NONE [facility] [place] [facility] Oct [...] 2023 02:00 PM [facility] - NONE [facility] Lab Results: +/- 30 days of the encounter This section includes the Chemistry and Hematology Lab Results on record with [place] for the patient. Radiology Reports and Pathology Reports are provided separately, in subsequent sections. Lab Results This section contains the Chemistry/Hematology Results that were resulted 30 days before or 30 daysafter the date of the Encounter. Date/Time Source Result Type Result - Unit Interpretation Reference Range Comment Jul 19, 2023 09:25 AM [facility] TSH Specimen Type: SERUM No comment entered. Ordering Provider: JANE MENDOZA Report Released Date/Time: Jul 12, 2023 10:12 AM Reporting Lab: [facility] [address] [address] Performing Lab: [facility] [address] [address] TSH 0.67 u[IU]/mL 0.35-5.00 Jul 19, 2023 09:25 AM [facility] LIPID PANEL, NON FASTING Specimen Type: SERUM No comment entered. Ordering Provider: JANE MENDOZA Report Released Date/Time: Jul 12, 2023 10:12 AM Reporting Lab: [facility] [address] [address] Performing Lab: [facility] [address] [address] CHOLESTEROL 119 mg/dL TRIGLYCERIDE 48 mg/dL 0-150 LDL calculated 63 mg/dL 0-129 CHOL/HDL 2.6 HDL CHOLESTEROL 46 mg/dL 40-60 Jul 19, 2023 09:25 AM [facility] LIVER FUNCTION Specimen Type: SERUM No comment entered. Ordering Provider: JANE MENDOZA Report Released Date/Time: Jul 12, 2023 10:12 AM Reporting Lab: [facility] [address] [address] Performing Lab: [address] [address] PROTEIN,TOTAL 6.7 g/dL 6.0-8.3 ALBUMIN 3.8 g/dL 3.5-5.0 ALKALINE PHOSPHATASE 55 U/L 40-150 AST 26 U/L 5-34 ALT 26 U/L BILIRUBIN, TOTAL 0.6 mg/dL 0.2-1.2 Jul 19, 2023 09:25 AM [facility] BASIC METABOLIC PANEL (non-fasting) Specimen Type: SERUM No comment entered. Ordering Provider: JANE MENDOZA Report Released Date/Time: Jul 12, 2023 10:12 AM Reporting Lab: [facility] [address] [address] Performing Lab: [address] [address] UREA NITROGEN 19 mg/dL 7-25 GLUCOSE 95 mg/dL 65-100 SODIUM 142 mmol/L 135-145 POTASSIUM 4.7 mmol/L 3.5-5.0 CHLORIDE 107 mmol/L 100-110 CO2 28 meq/L 20-30 CREATININE, Serum 0.90 mg/dL 0.50-1.40 eGFR(CKD-EPI 2020) 86 mL/min >60 Jul 19, 2023 09:25 AM [facility] CBC Specimen Type: BLOOD No comment entered. Ordering Provider: JANE MENDOZA Report Released Date/Time: Jul 12, 2023 10:12 AM Reporting Lab: [facility] [address] [address] Performing Lab: [address] [address] WBC 7.33 10*3/uL 4.50-11.00 RBC 4.94 10*6/uL [...] Pain Height Weight Body Mass Index Source July 26, 2023 11:00 AM 208.1 [address] [place] Encounter Notes: All associated encounter notes This section contains the clinical notes associated to the Encounter. Date/Time Encounter Note(s) Provider Source July 26, 2023 11:00 AM MOVE NOTE: LOCAL TITLE: WEIGHT MANAGEMENT/MOVE! OUTPATIENT GROUP NOTE STANDARD TITLE: MOVE NOTE DATE OF NOTE: JULY 26, 2023@11:00 ENTRY DATE: JULY 27, 2023@09:56:24 AUTHOR: SANTIAGO KRAMER COSIGNER: URGENCY: STATUS: COMPLETED participated in MOVE! Group Counseling via [facility] on July 19, 2023. The was provided with information on [facility] and has given verbal consent to use group [facility] services for their healthcare. The copy of the Group Telehealth Agreement has been mailed to the . The Veterans location/emergency contact number were confirmed. The Emergency Call Relay Center (E911) was available. The visit was locked for security and privacy. [place] identified with 2 identifiers: [ ] Full Name [ ] Address Veterans attended the [facility] MOVE! group session on this date. MOVE! is a program designed to provide education about weight management skills to overweight and obese Veterans. Group members combined to gain 7.7 pounds since their last attended group. Group members initially discussed their past week's successes and areas for improvement. sport intern then presented on weight loss medications. Group members asked questions. One group members shared their experience and success using weight loss meds. Faciliators reminded veterans if they are interested to discuss with their provider. Faciliators also encouraged lifestyle changes in addition to using these medications. The next [facility] MOVE! group meeting will be held on July @ 11:00am. eteran's reported weight was 208.1 lbs. and gained 0.9 pounds since last group attended. Dx: Overweight E66.3 BMI 29.0-29.9 The session lasted for 1 hour in duration. /johanny/ SANTIAGO KRAMER STAFF DIETITIAN Signed: 07/27/2023 10:03 Receipt Acknowledged By: 08/02/2023 23:07 /johanny/ GORDON PATHAK, Ph.D. CLINICAL PSYCHOLOGIST SANTIAGO KRAMERFIELD
--- OUTSIDE RECORDS SUMMARY | 2024-03-05 06:19 | XMS_ITS | Encounter Summary ---
Author Name [facility] [place] Address [address] [place] [address] Care Team Providers Care Tool Builder Name Role Phone LEN MENDOZA Primary Care Provider Unavailcamryn ble Insurance Providers: All historical and current [...] PART B Sep 23, 2014 PART B [id number] HARMONY MCCALL JR PATIENT MEDICARE (WNR) MEDICARE (M) PART A July 25, 2007 PART A [id number] HARMONY MCCALL JR PATIENT MEDICARE (WNR) MEDICARE (M) PART B July 25, 2007 PART B [id number] [id number] HARMONY MCCALL JR PATIENT MEDICARE (WNR) MEDICARE (M) PART A July 25, 2007 PART A [id number] [id number] HARMONY MCCALL JR [facility] ) [facility] * Jan 24, 2015 [id number] CAROLE MCCALL SPOUSE Selected Encounter This section includes the information on record at [place] for the Encounter. Date/Time Encounter Type Encounter Description Reason Pro vider Source Jul 24, 2023 11:39 AM Outpatient Encounter ADMIN PAT ACTIVTIES (MASNONCT) IHE Encounter Template Text not used by [place] Plan of Treatment: Future Appointments (+ 6 [...] 31, 2023 10:00 AM AMBULATORY - NONE [facility] August 02, 2023 11:00 AM AMBULATORY [...] 25, 2023 11:30 AM [facility] Oct 04, 2023 11:00 AM AMBULATORY - NONE [place] Oct 11, 2023 11:00 AM AMBULATORY - NONE [place] Oct 18, 2023 11:00 AM AMBULATORY - NONE [place] Oct 23, 2023 09:00 AM [facility] Oct 25, 2023 11:00 AM AMBULATORY - [...] Range Comment Jul 19, 2023 09:25 AM [facility] TSH Specimen Type: SERUM No comment entered. Ordering Provider: JANE MENDOZA Report Released Date/Time: Jul 12, 2023 10:12 AM Reporting Lab: [facility] [place] [facility] [address] [address] Performing Lab: [facility] [address] TSH 0.67 u[IU]/mL 0.35-5.00 Jul 19, 2023 09:25 AM [facility] LIPID PANEL, NON FASTING Specimen Type: SERUM No comment entered. Ordering Provider: JANE MENDOZA Report Released Date/Time: Jul 12, 2023 10:12 AM Reporting Lab: [facility] [place] [facility] [address] [facility] [address] Performing Lab: [facility] [address] [address] CHOLESTEROL 119 mg/dL TRIGLYCERIDE 48 mg/dL 0-150 LDL calculated 63 mg/dL 0-129 CHOL/HDL 2.6 HDL CHOLESTEROL 46 mg/dL 40-60 Jul 19, 2023 09:25 AM [facility] LIVER FUNCTION Specimen Type: SERUM No comment entered. Ordering Provider: JANE MENDOZA Report Released Date/Time: Jul 12, 2023 10:12 AM Reporting Lab: [facility] [address] [address] Performing Lab: [facility] [address] [address] PROTEIN,TOTAL 6.7 g/dL 6.0-8.3 ALBUMIN 3.8 g/dL 3.5-5.0 ALKALINE PHOSPHATASE 55 U/L 40-150 AST 26 U/L 5-34 ALT 26 U/L BILIRUBIN, TOTAL 0.6 mg/dL 0.2-1.2 Jul 19, 2023 09:25 AM [facility] BASIC METABOLIC PANEL (non-fasting) Specimen Type: SERUM No comment entered. Ordering Provider: JANE MENDOZA Report Released Date/Time: Jul 12, 2023 10:12 AM Reporting Lab: [address] [address] Performing Lab: [address] [address] UREA NITROGEN 19 mg/dL 7-25 GLUCOSE 95 mg/dL 65-100 SODIUM 142 mmol/L 135-145 POTASSIUM 4.7 mmol/L 3.5-5.0 CHLORIDE 107 mmol/L 100-110 CO2 28 meq/L 20-30 CREATININE, Serum 0.90 mg/dL 0.50-1.40 eGFR(CKD-EPI 2020) 86 mL/min >60 Jul 19, 2023 09:25 AM [facility] CBC Specimen Type: BLOOD No comment entered. Ordering Provider: JANE MENDOZA Report Released Date/Time: Jul 12, 2023 10:12 AM Reporting Lab: [address] [address] Performing Lab: [address] [address] WBC 7.33 10*3/uL 4.50-11.00 RBC 4.94 10*6/uL [...] 2023 01:30 PM VA-TOBACCO FORMER USER [place] [facility] [place] [facility] Tobacco Use History This section includes a history of the smoking, or tobacco-related health factors, that were collected on or before the date of the Encounter. The data comes from the [place] facility where the Encounter took place. Date/Time Smoking Status/Tobacco Use Comment F acility Jan 26, 2023 01:30 PM VA-TOBACCO QUIT 15 YRS OR MORE [place] [facility] [place] [facility] Jan 27, 2022 11:00 AM VA-TOBACCO FORMER USER [place] [facility] [place] [facility] Jan 27, 2022 11:00 AM VA-TOBACCO QUIT 15 YRS OR MORE [place] [facility] [place] [facility] Sep 17, 2020 09:00 AM VA-TOBACCO FORMER USER [place] [facility] [place] [facility] Sep 17, 2020 09:00 AM VA-TOBACCO QUIT 15 YRS OR MORE [place] [facility] [place] [facility] Jun 04, 2019 02:57 PM VA-TOBACCO NEVER USED [place] [facility] [place] [facility] Mar 14, 2018 11:23 AM VA-TOBACCO FORMER USER [place] [facility] [place] [facility] Mar 14, 2018 11:23 AM VA-TOBACCO QUIT 15 YRS OR MORE [place] [facility] [place] [facility] Apr 04, 2017 12:30 PM QUIT TOBACCO USE > 7 YEARS AGO [place] [facility] [place] [facility] Apr 05, 2016 01:02 PM QUIT TOBACCO USE > 7 YEARS AGO quit in 1984 [place] [facility] [place] [facility] Encounter Notes: All associated encounter notes This section contains the clinical notes associated to the Encounter. Date/Time Encounter Note(s) Provider Source Jul 24, 2023 11:39 AM ADMINISTRATIVE NOTE: LOCAL TITLE: CCC: SCHEDULING ADMINISTRATION STANDARD TITLE: ADMINISTRATIVE NOTE DATE OF NOTE: JUL 24, 2023@11:39:23 ENTRY DATE: JUL 24, 2023@11:39:23 AUTHOR: ARTURO BHATT COSIGNER: URGENCY: STATUS: COMPLETED CCC: SCHEDULING ADMINISTRATION Has ADDENDA Patient Demographics Patient Name: HARMONY MCCALL Patient Primary Phone: [phone] Patient Primary [address] [address] [place] [address] Patient : 1940 Patient Age: 82 Caller/Recipient Relation to Patient: Self Administrative Administrative Note Reason: Paperwork Request /johanny/ ARTURO BHATT VISFaina 1 CCC AMSA Signed: 07/24/2023 11:39 Receipt Acknowledged By: 07/30/2023 11:25 /johanny/ Arron Olmedo, [facility] [employer] [place] Truck Driver CLINICAL COURIER,PRIMARY CARE 07/24/2023 13:25 /johanny/ Terri GARCIA RN CNL Primary Care RN 07/24/2023 ADDENDUM STATUS: COMPLETED Vet needs documentation of influenza vaccine this year. RN printed documentation and mailed to [facility]. /johanny/ Terri Finn MSN RN CNL Primary Care RN Signed: 07/24/2023 13:25 [facility]ATT [facility]
--- OUTSIDE RECORDS SUMMARY | 2024-03-05 06:20 | XMS_ITS | Encounter Summary ---
Author Name [facility] Organization [facility] [place] Address [address] [place] [address] Care Team Providers Care Cosmetic Counselor Name Role Phone LEN MENDOZA Primary Care [...] PART B Sep 23, 2014 PART B [id number] [phone] 4 HARMONY MCCALL JR PATIENT MEDICARE (WNR) MEDICARE (M) PART A July 25, 2007 PART A [id number] HARMONY MCCALL JR PATIENT MEDICARE (WNR) MEDICARE (M) PART B July 25, 2007 PART B [id number] HARMONY MCCALL JR PATIENT MEDICARE (WNR) MEDICARE (M) PART A July 25, 2007 PART A [id number] HARMONY MCCALL JR PATIENT [facility] MEDICAL EXPENSE (OPT/PROF ) [facility] * Jan 24, 2015 [id number] 18 CAROLE MCCALL SPOUSE Selected Encounter This section includes the information on record at [place] for the Encounter. Date/Time Encounter Type Encounter Description Reason Provider Source August 09, 2023 11:00 AM GROUP BEHAVE COUNS 2-10 WEIGHT MGMT & MOVE! PROG - GRP ICD-10-CM E66.3 Overweight NIAMIGUEL IHErin Encounter Template Text not used by [place] Assessments - Encounter Diagnoses This section includes the primary and secondary diagnoses documented for the Encounter. Date/Time Primary/Secondary Diagnosis Diagnosis Name Provider Source August 10, 2023 09:05 AM PRIMARY Overweight SANTIAGO KRAMER August 10, 2023 09:05 AM SECONDARY Body mass index [BMI] 29.0-29.9, [...] Appointment Type Appointme nt Facility Name August 23, 2023 11:00 AM AMBULATORY - NONE [place] Aug 30, 2023 11:00 AM AMBULATORY - NONE [place] Sep 06, 2023 11:00 AM AMBULATORY - NONE [place] Sep 13, 2023 11:00 AM AMBULATORY - NONE [place] Sep 20, 2023 11:00 AM AMBULATORY - NONE [place] Sep 25, 2023 11:30 AM [facility] Oct 04, 2023 11:00 AM AMBULATORY - NONE [place] Oct 11, 2023 11:00 AM AMBULATORY - NONE [place] Oct 18, 2023 11:00 AM AMBULATORY - NONE [place] Oct 23, 2023 09:00 AM AMBULATORY - NONE [facility] [place] [facility] Oct 25, 2023 11:00 AM AMBULATORY [...] AMBULATORY - NONE [facility] [place] [facility] Dec 06, 2023 11:00 AM AMBULATORY - NONE [place] Dec 11, 2023 10:00 AM AMBULATORY - NONE [facility] [place] [facility] Dec 11, 2023 01:00 PM AMBULATORY - MEDICINE [facility] [place] [facility] Lab Results: +/- 30 days of the encounter This section includes the Chemistry and Hematology Lab Results on record with [place] for the patient. Radiology Reports and Pathology Reports are provided separately, in subsequent sections. Lab Results This section contains the Chemistry/Hematology Results that were resulted 30 days before or 30 daysafter the date of the Encounter. Date/Time Source Result Type Result - Unit Interpretation Reference Range Comment Jul 19, 2023 09:25 AM [facility] TSH Specimen Type: SERUM No comment entered. Ordering Provider: JANE MENDOZA Report Released Date/Time: Jul 12, 2023 10:12 AM Reporting Lab: [facility] [address] [facility] [id number] Performing Lab: [facility] [address] [facility] [id number] TSH 0.67 u[IU]/mL 0.35-5.00 Jul 19, 2023 09:25 AM [facility] LIPID PANEL, NON FASTING Specimen Type: SERUM No comment entered. Ordering Provider: JANE MENDOZA Report Released Date/Time: Jul 12, 2023 10:12 AM Reporting Lab: [facility] [address] [facility] [address] Performing Lab: [facility] [address] [facility] [address] CHOLESTEROL 119 mg/dL TRIGLYCERIDE 48 mg/dL 0-150 LDL calculated 63 mg/dL 0-129 CHOL/HDL 2.6 HDL CHOLESTEROL 46 mg/dL 40-60 Jul 19, 2023 09:25 AM [facility] LIVER FUNCTION Specimen Type: SERUM No comment entered. Ordering Provider: JANE MENDOZA Report Released Date/Time: Jul 12, 2023 10:12 AM Reporting Lab: [facility] [address] [facility] [phone] Performing Lab: [facility] [address] [facility] [address] PROTEIN,TOTAL 6.7 g/dL 6.0-8.3 ALBUMIN 3.8 g/dL 3.5-5.0 ALKALINE PHOSPHATASE 55 U/L 40-150 AST 26 U/L 5-34 ALT 26 U/L BILIRUBIN, TOTAL 0.6 mg/dL 0.2-1.2 Jul 19, 2023 09:25 AM [facility] BASIC METABOLIC PANEL (non-fasting) Specimen Type: SERUM No comment entered. Ordering Provider: JANE MENDOZA Report Released Date/Time: Jul 12, 2023 10:12 AM Reporting Lab: [facility] [address] [facility] [address] Performing Lab: [facility] [address] [facility] [address] UREA NITROGEN 19 mg/dL 7-25 GLUCOSE 95 mg/dL 65-100 SODIUM 142 mmol/L 135-145 POTASSIUM 4.7 mmol/L 3.5-5.0 CHLORIDE 107 mmol/L 100-110 CO2 28 meq/L 20-30 CREATININE, Serum 0.90 mg/dL 0.50-1.40 eGFR(CKD-EPI 2020) 86 mL/min >60 Jul 19, 2023 09:25 AM [facility] CBC Specimen Type: BLOOD No comment entered. Ordering Provider: JANE MENDOZA Report Released Date/Time: Jul 12, 2023 10:12 AM Reporting Lab: [facility] [address] [facility] [address] Performing Lab: [address] [address] WBC 7.33 10*3/uL 4.50-11.00 RBC 4.94 10*6/uL [...] Pain Height Weight Body Mass Index Source August 09, 2023 11:00 AM 208.3 32 [place] Encounter Notes: All associated encounter notes This section contains the clinical notes associated to the Encounter. Date/Time Encounter Note(s) Provider Source August 09, 2023 11:00 AM MOVE NOTE: LOCAL TITLE: WEIGHT MANAGEMENT/MOVE! OUTPATIENT GROUP NOTE STANDARD TITLE: MOVE NOTE DATE OF NOTE: AUGUST 09, 2023@11:00 ENTRY DATE: AUGUST 10, 2023@08:59:06 AUTHOR: SANTIAGO KRAMER COSIGNER: URGENCY: STATUS: COMPLETED [place] participated in MOVE! Group Counseling via VV on August 09, 2023. The [place] was provided with information on VV and has given verbal consent to use group VVC services for their healthcare. The copy of the Group Telehealth Agreement has been mailed to the [place]. The Veterans location/emergency contact number were confirmed. The Emergency Call Relay Center (E911) was available. The visit was locked for security and privacy. identified with 2 identifiers: [ ] Full Name [ ] Address Veterans attended the [facility] MOVE! group session on this date. MOVE! is a program designed to provide education about weight management skills to overweight and obese Veterans. Group members combined to lose 4.1 pounds since their last attended group. Facilitators welcomed back group members and introduced new group members. Last weeks topic on [place] 3 and [place] 6 fatty acids was reviewed. Group members shared their goals from last week and results. 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 Facilitators encouraged group members to set goals for healthy eating and exercise for the next week. The next [facility] MOVE! group meeting will be held on July @ 11:00am. [place]'s reported weight was 208.3 lbs. and gained 0.6 pounds since last group attended. Dx: Overweight E66.3 z 68.29 The session lasted for 1 hour in duration. /johanny/ SANTIAGO KRAMER STAFF DIETITIAN Signed: 08/10/2023 09:05 SANTIAGO KRAMER [place]
--- OUTSIDE RECORDS SUMMARY | 2024-03-05 06:20 | XMS_ITS | Encounter Summary ---
Author Name [facility] [place] Organization [place] Address [address] [place] [address] Care Team Providers Care Latin American Studies Director Name Role Phone LEN MENDOZA Primary [...] PART B Sep 23, 2014 PART B [id number] [id number] HARMONY MCCALL JR PATIENT MEDICARE (WNR) MEDICARE (M) PART A July 25, 2007 PART A [id number] [id number] HARMONY MCCALL JR PATIENT MEDICARE (WNR) MEDICARE (M) PART B July 25, 2007 PART B [id number] [id number] HARMONY MCCALL JR PATIENT MEDICARE (WNR) MEDICARE (M) PART A July 25, 2007 PART A [id number] [id number] HARMONY MCCALL JR PATIENT [facility] MEDICAL EXPENSE (OPT/PROF ) [facility] * Jan 24, 2015 [id number] 18 CAROLE MCCALL SPOUSE Selected Encounter This section includes the information on record at [place] for the Encounter. Date/Time Encounter Type Encounter Description Reason Provider Source August 22, 2023 08:00 AM EXERCISE CLASS HEALTH/WELLBEING SRVS ICD-10-CM Z72.3 Lack of physical exercise DAMON ONEILL IHE Encounter Template Text not used by [place] Assessments - Encounter Diagnoses This section includes the primary and secondary diagnoses documented for the Encounter. Date/Time Primary/Secondary Diagnosis Diagnosis Name Provider Source August 22, 2023 11:02 AM PRIMARY Lack of physical exercise DAMON ONEILL [facility] Plan of Treatment: Future Appointments (+ [...] 25, 2023 11:30 AM AMBULATORY - MEDICINE [facility] [place] [facility] Oct 04, 2023 11:00 AM AMBULATORY - NONE [place] Oct 11, 2023 11:00 AM AMBULATORY - NONE [place] Oct 18, 2023 11:00 AM AMBULATORY - NONE [place] Oct 23, 2023 09:00 AM AMBULATORY - NONE [place] [facility] [place] [facility] Oct 25, 2023 11:00 AM AMBULATORY [...] AMBULATORY - NONE [facility] [place] [facility] Dec 06, 2023 11:00 AM AMBULATORY - NONE [place] Dec 11, 2023 10:00 AM AMBULATORY - NONE [facility] [place] [facility] Dec 11, 2023 01:00 PM AMBULATORY - MEDICINE [facility] [place] [facility] Social History: Smoking Status (Most current) [...] VA-TOBACCO FORMER USER [facility] [place] [facility] Tobacco Use History This section includes a history of the smoking, or tobacco-related health factors, that were collected on or before the date of the Encounter. The data comes from the [place] facility where the Encounter took place. Date/Time Smoking Status/Tobacco Use Comment F acility Jan 26, 2023 01:30 PM VA-TOBACCO QUIT 15 YRS OR MORE [facility] [place] [facility] Jan 27, 2022 11:00 AM VA-TOBACCO FORMER USER [facility] [place] [facility] Jan 27, 2022 11:00 AM VA-TOBACCO QUIT 15 YRS OR MORE [facility] [place] [facility] Sep 17, 2020 09:00 AM VA-TOBACCO FORMER USER [facility] [place] [facility] Sep 17, 2020 09:00 AM VA-TOBACCO QUIT 15 YRS OR MORE [facility] [place] [facility] Jun 04, 2019 02:57 PM VA-TOBACCO NEVER USED [facility] [place] [facility] Mar 14, 2018 11:23 AM VA-TOBACCO FORMER USER [facility] [place] [facility] Mar 14, 2018 11:23 AM VA-TOBACCO QUIT 15 YRS OR MORE [facility] [place] [facility] Apr 04, 2017 12:30 PM QUIT TOBACCO USE > 7 YEARS AGO [facility] Apr 05, 2016 01:02 PM QUIT TOBACCO USE > 7 YEARS AGO quit in 1984 [facility] Encounter Notes: All associated encounter notes This section contains the clinical notes associated to the Encounter. Date/Time Encounter Note(s) Provider Source August 22, 2023 11:00 AM GERIATRIC MEDICINE NOTE: LOCAL TITLE: GEROFIT VCM/VVC/VOD TELEHEALTH SUPERVISED EXERCISE STANDARD TITLE: GERIATRIC MEDICINE NOTE DATE OF NOTE: AUGUST 22, 2023@11:00 ENTRY DATE: AUGUST 22, 2023@11:01:06 AUTHOR: DOUG ONEILL EXP COSIGNER: URGENCY: STATUS: COMPLETED GEROFIT VVC/VCM/VOD Telehealth Supervised Exercise NOTE Provided informed consent to receive treatment via Telehealth., mailed and has been made verbally aware of Telehealth Group [place] practices. [place]'s Location: address on record unless specified below. Emergency Contact: on record unless specified below. [place] participated remotely in the [facility] exercise program today through [place] Virtual Formal Service Waiter. Activities were focused on progression of their individual exercise prescription (cardiorespiratory fitness training, strength training, etc.) and group-based exercise sessions to include, but not limited to: flexibility training, balance training & functional circuit training. Exercise participation was supervised [facility] and any questions/concerns were addressed with the patient. Modifications were made to programming as appropriate to suit Veterans individual needs, preferences, and whole health concerns. /johanny/ VIOLETTA FINK LICENSE FACTORY SUPERINTENDENT Signed: 08/22/2023 11:07 DOUG ONEILL [facility]
--- OUTSIDE RECORDS SUMMARY | 2024-03-05 06:21 | XMS_ITS | Encounter Summary ---
Author Name [facility] [place] Address [address] [place] [address] Care Team Providers Care Metal Sponge Making Machine Operator Name Role Phone LEN [...] PART B Sep 23, 2014 PART B [id number] HARMONY MCCALL JR PATIENT MEDICARE (WNR) MEDICARE (M) PART A July 25, 2007 PART A [id number] [id number] HARMONY MCCALL JR PATIENT MEDICARE (WNR) MEDICARE (M) PART B July 25, 2007 PART B [id number] HARMONY MCCALL JR PATIENT MEDICARE (WNR) MEDICARE (M) PART A July 25, 2007 PART A [id number] [id number] HARMONY MCCALL JR PATIENT [facility] MEDICAL EXPENSE (OPT/PROF ) [facility] * Jan 24, 2015 [id number] 18 CAROLE MCCALL SPOUSE Selected Encounter This section includes the information on record at [place] for the Encounter. Date/Time Encounter Type Encounter Description Reason Provider Source August 23, 2023 11:00 AM WEIGHT MGMT CLASS WEIGHT MGMT & MOVE! PROG - GRP ICD-10-CM Z68.29 Body mass index [BMI] 29.0-29.9, adult GORDON PATHAK [facility] Encounter Template Text not used by [place] Assessments - Encounter Diagnoses This section includes the primary and secondary diagnoses documented for the Encounter. Date/Time Primary/Secondary Diagnosis Diagnosis Name Provider Source August 24, 2023 05:45 PM PRIMARY Body mass index [BMI] 29.0-29.9, adult GORDON PATHAK August 24, 2023 05:45 PM SECONDARY Overweight GORDON PATHAK Plan of [...] Date/Time Appointment Type Appointme nt Facility Name Aug 30, 2023 11:00 AM AMBULATORY - NONE [place] Sep 06, 2023 11:00 AM AMBULATORY - NONE [place] Sep 13, 2023 11:00 AM AMBULATORY - NONE [place] Sep 20, 2023 11:00 AM AMBULATORY - NONE [place] Sep 25, 2023 11:30 AM [facility] Oct 04, 2023 11:00 AM AMBULATORY - NONE [place] Oct 11, 2023 11:00 AM AMBULATORY - NONE [place] Oct 18, 2023 11:00 AM AMBULATORY - NONE [place] Oct 23, 2023 09:00 AM AMBULATORY - NONE [facility] [place] [facility] Oct 25, 2023 11:00 AM AMBULATORY [...] AMBULATORY - NONE [facility] [place] [facility] Dec 06, 2023 11:00 AM AMBULATORY - NONE [place] Dec 11, 2023 10:00 AM AMBULATORY - NONE [facility] [place] [facility] Dec 11, 2023 01:00 PM AMBULATORY - MEDICINE [facility] [place] [facility] Dec 13, 2023 11:00 AM AMBULATORY - NONE [place] Vital Signs: All taken on the encounter date This section contains inpatient and outpatient Vital Signs collected on the date of the Encounter. Date/Time Temperature Pulse Blood Pressure Respiratory Rate SP02 Pain Height Weight Body Mass Index Source August 23, 2023 11:44 AM 208.5 32 [place] Encounter Notes: All associated encounter notes This section contains the clinical notes associated to the Encounter. Date/Time Encounter Note(s) Provider Source August 24, 2023 05:33 PM MOVE NOTE: LOCAL TITLE: WEIGHT MANAGEMENT/MOVE! OUTPATIENT GROUP NOTE STANDARD TITLE: MOVE NOTE DATE OF NOTE: AUGUST 24, 2023@17:33 ENTRY DATE: AUGUST 24, 2023@17:33:54 AUTHOR: GORDON PATHAK COSIGNER: URGENCY: STATUS: COMPLETED [place] participated in MOVE! Group Counseling via [facility] on August 23, 2023. The was provided with information on VV and [...] Name [ ] Address Veterans attended the [facility] MOVE! group session on this date. MOVE! is a program designed to provide education about weight management skills to overweight and obese Veterans. Group members combined to gained 1.2 pounds since their last attended group. Group members were quieter than usual in today's session. 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 Group members shared that they struggled staying away from high calorie Red-Light foods over the long weekend. Group members talked about sporting events (particularly the Celtics' playoff run) and the economy. Group members asked about hearing more about the benefits and concerns around a vegetarian diet which will be discussed in a future session. Group members shared their individual goals for the next week. The next [facility] MOVE! group meeting will be held on August @ 11:00am. [place]'s reported weight was 208.5 lbs. and gained 0.2 pounds since last group attended. Dx: Overweight Obesity E66.3 BMI 29.0-29.9 The session lasted for 1 hour in duration. /johanny/ GORDON PATHAK, Ph.D. CLINICAL PSYCHOLOGIST Signed: 08/24/2023 17:51 Receipt Acknowledged By: 08/28/2023 10:40 /johanny/ SANTIAGO KRAMER STAFF DIETITIAN GORDON PATHAK
--- OUTSIDE RECORDS SUMMARY | 2024-03-05 06:21 | XMS_ITS | Encounter Summary ---
Author Name [facility] [place] Organization [place] Address [address] [place] [address] Care Team Providers Care Brick Mason Name Role Phone LEN MENDOZA Primary Care [...] PART B Sep 23, 2014 PART B [id number] [id number] HARMONY MCCALL JR PATIENT MEDICARE (WNR) MEDICARE (M) PART A July 25, 2007 PART A [id number] [id number] HARMONY MCCALL JR PATIENT MEDICARE (WNR) MEDICARE (M) PART B July 25, 2007 PART B [id number] [id number] HARMONY MCCALL JR PATIENT MEDICARE (WNR) MEDICARE (M) PART A July 25, 2007 PART A [id number] [id number] HARMONY MCCALL JR PATIENT [facility] MEDICAL EXPENSE (OPT/PROF ) [facility] * Jan 24, 2015 [id number] 18 CAROLE MCCALL SPOUSE Selected Encounter This section includes the information on record at [place] for the Encounter. Date/Time Encounter Type Encounter Description Reason Provider Source August 24, 2023 08:00 AM EXERCISE CLASS HEALTH/WELLBEING SRVS ICD-10-CM Z72.3 Lack of physical exercise TERRY COATES [facility] Encounter Template Text not used by [place] Assessments - Encounter Diagnoses This section includes the primary and secondary diagnoses documented for the Encounter. Date/Time Primary/Secondary Diagnosis Diagnosis Name Provider Source August 24, 2023 10:40 AM PRIMARY Lack of physical exercise TERRY COATES [facility] Plan of Treatment: Future Appointments (+ [...] 25, 2023 11:30 AM [facility] [place] [facility] Oct 04, 2023 11:00 AM AMBULATORY - NONE [place] Oct 11, 2023 11:00 AM AMBULATORY - NONE [place] Oct 18, 2023 11:00 AM AMBULATORY - NONE [place] Oct 23, 2023 09:00 AM AMBULATORY - NONE [place] [facility] [place] [facility] Oct 25, 2023 11:00 AM AMBULATORY [...] AMBULATORY - NONE [facility] [place] [facility] Dec 06, 2023 11:00 AM AMBULATORY - NONE [place] Dec 11, 2023 10:00 AM AMBULATORY - NONE [facility] [place] [facility] Dec 11, 2023 01:00 PM AMBULATORY - MEDICINE [facility] [place] [facility] Dec 13, 2023 11:00 AM AMBULATORY - NONE [place] Social History: Smoking Status (Most current) and Tobacco Use (All prior to encounter date) This section includes the most current, and the historical, smoking and tobacco- related health factors from the [place] facility where the Encounter took place. Current Smoking Status This section includes the most current smoking, or tobacco-related health factor, from the [place] facility where the Encounter took place. Date/Time Current Smoking Status Comment Facil ity Jan 26, 2023 01:30 PM VA-TOBACCO FORMER USER [facility] [place] [facility] Tobacco Use History This section includes a history of the smoking, or tobacco-related health factors, that were collected on or before the date of the Encounter. The data comes from the [place] facility where the Encounter took place. Date/Time Smoking Status/Tobacco Use Comment F acility Jan 26, 2023 01:30 PM VA-TOBACCO QUIT 15 YRS OR MORE [facility] [place] [facility] Jan 27, 2022 11:00 AM VA-TOBACCO FORMER USER [facility] [place] [facility] Jan 27, 2022 11:00 AM VA-TOBACCO QUIT 15 YRS OR MORE [facility] [place] [facility] Sep 17, 2020 09:00 AM VA-TOBACCO FORMER USER [facility] [place] [facility] Sep 17, 2020 09:00 AM VA-TOBACCO QUIT 15 YRS OR MORE [facility] [place] [facility] Jun 04, 2019 02:57 PM VA-TOBACCO NEVER USED [facility] [place] [facility] Mar 14, 2018 11:23 AM VA-TOBACCO FORMER USER [facility] [place] [facility] Mar 14, 2018 11:23 AM VA-TOBACCO QUIT 15 YRS OR MORE [facility] [place] [facility] Apr 04, 2017 12:30 PM QUIT TOBACCO USE > 7 YEARS AGO [facility] Apr 05, 2016 01:02 PM QUIT TOBACCO USE > 7 YEARS AGO quit in 1985 [facility] Encounter Notes: All associated encounter notes This section contains the clinical notes associated to the Encounter. Date/Time Encounter Note(s) Provider Source August 24, 2023 10:39 AM GERIATRIC MEDICINE NOTE: LOCAL TITLE: GEROFIT VCM/VVC/VOD TELEHEALTH SUPERVISED EXERCISE STANDARD TITLE: GERIATRIC MEDICINE NOTE DATE OF NOTE: AUGUST 24, 2023@10:39 ENTRY DATE: AUGUST 24, 2023@10:39:42 AUTHOR: TERRY COATES EXP COSIGNER: URGENCY: STATUS: COMPLETED [place] Provided informed consent to receive treatment via Telehealth., [place] mailed and has been made verbally aware of Telehealth Group [place] practices. [place]'s Location: address on record unless specified below. Emergency Contact: on record unless specified below. [place] participated remotely in the [facility] exercise program today through [place] Virtual Trekking Guide. Activities were focused on progression of their individual exercise prescription (cardiorespiratory fitness training, strength training, etc.) and group-based exercise sessions to include, but not limited to: flexibility training, balance training & functional circuit training. Exercise participation was supervised remotely by [facility] staff and any questions/concerns were addressed with the patient. Modifications were made to programming as appropriate to suit Veterans individual needs, preferences, and whole health concerns. /johanny/ TERRY COATES PT, DPT PHYSICAL THERAPIST Signed: 08/24/2023 10:42 TERRY COATES [facility]
--- OUTSIDE RECORDS SUMMARY | 2024-03-05 06:21 | XMS_ITS | Encounter Summary ---
Author Name [place] Address [address] [place] [id number] Care Team Providers Care Project Mgr Name Role Phone LEN MENDOZA Primary Care [...] PART B Sep 23, 2014 PART B [id number] HARMONY MCCALL JR PATIENT MEDICARE (WNR) MEDICARE (M) PART A July 25, 2007 PART A [id number] [phone] HARMONY MCCALL JR PATIENT MEDICARE (WNR) MEDICARE (M) PART B July 25, 2007 PART B [id number] HARMONY MCCALL JR PATIENT MEDICARE (WNR) MEDICARE (M) PART A July 25, 2007 PART A [id number] HARMONY MCCALL JR [facility]IENT [facility] (OPT/PROF ) [facility] * Jan 24, 2015 [id number] 18 CAROLE MCCALL SPOUSE Selected Encounter This section includes the information on record at [place] for the Encounter. Date/Time Encounter Type Encounter Description Reason Provider Source Aug 27, 2023 08:00 AM EXERCISE CLASS HEALTH/WELLBEING SRVS ICD-10-CM Z72.3 Lack of physical exercise DAMON ONEILL IHE Encounter Template Text not used by [place] Assessments - Encounter Diagnoses This section includes the primary and secondary diagnoses documented for the Encounter. Date/Time Primary/Secondary Diagnosis Diagnosis Name Provider Source Aug 27, 2023 10:48 AM PRIMARY Lack of physical exercise DAMON ONEILL [facility] Plan of Treatment: Future Appointments (+ 6 [...] 25, 2023 11:30 AM AMBULATORY - MEDICINE [facility] [place] [facility] Oct 04, 2023 11:00 AM AMBULATORY - NONE [place] Oct 11, 2023 11:00 AM AMBULATORY - NONE [place] Oct 18, 2023 11:00 AM AMBULATORY - NONE [place] Oct 23, 2023 09:00 AM AMBULATORY - NONE [place] [facility] Oct 25, 2023 11:00 AM AMBULATORY [...] AMBULATORY - NONE [facility] [place] [facility] Dec 06, 2023 11:00 AM AMBULATORY - NONE [place] Dec 11, 2023 10:00 AM AMBULATORY - NONE [facility] [place] [facility] Dec 11, 2023 01:00 PM AMBULATORY - MEDICINE [facility] [place] [facility] Dec 13, 2023 11:00 AM AMBULATORY - NONE [place] Social History: Smoking Status (Most current) [...] YRS OR MORE [facility] [place] [place] [facility] Tobacco Use History This section includes a history of the smoking, or tobacco-related health factors, that were collected on or before the date of the Encounter. The data comes from the [place] facility where the Encounter took place. Date/Time Smoking Status/Tobacco Use Comment F acility Jan 26, 2023 01:30 PM VA-TOBACCO QUIT 15 YRS OR MORE [facility] [place] [facility] Jan 27, 2022 11:00 AM VA-TOBACCO FORMER USER [facility] [place] [facility] Jan 27, 2022 11:00 AM VA-TOBACCO QUIT 15 YRS OR MORE [facility] [place] [facility] Sep 17, 2020 09:00 AM VA-TOBACCO FORMER USER [facility] [place] [facility] Sep 17, 2020 09:00 AM VA-TOBACCO QUIT 15 YRS OR MORE [facility] [place] [facility] Jun 04, 2019 02:57 PM VA-TOBACCO NEVER USED [facility] [place] [facility] Mar 14, 2018 11:23 AM VA-TOBACCO FORMER USER [facility] [place] [facility] Mar 14, 2018 11:23 AM VA-TOBACCO QUIT 15 YRS OR MORE [facility] [place] [facility] Apr 04, 2017 12:30 PM QUIT TOBACCO USE > 7 YEARS AGO [facility] Apr 05, 2016 01:02 PM QUIT TOBACCO USE > 7 YEARS AGO quit in 1985 [facility] Encounter Notes: All associated encounter notes This section contains the clinical notes associated to the Encounter. Date/Time Encounter Note(s) Provider Source Aug 27, 2023 10:47 AM GERIATRIC MEDICINE NOTE: LOCAL TITLE: GEROFIT VCM/VVC/VOD TELEHEALTH SUPERVISED EXERCISE STANDARD TITLE: GERIATRIC MEDICINE NOTE DATE OF NOTE: AUG 27, 2023@10:47 ENTRY DATE: AUG 27, 2023@10:47:26 AUTHOR: DOUG ONEILL COSIGNER: URGENCY: STATUS: COMPLETED GEROFIT VVC/VCM/VOD Telehealth Supervised Exercise NOTE Provided informed consent to receive treatment via Telehealth., [place] mailed and has been made verbally aware of [facility] [place] practices. 's Location: address on record unless specified below. Emergency Contact: on record unless specified below. [place] participated remotely in the Gerofit exercise program today through [place] Virtual Recovery Assistant. Activities were focused on progression of their individual exercise prescription (cardiorespiratory fitness training, strength training, etc.) and group-based exercise sessions to include, but not limited to: flexibility training, balance training & functional circuit training. Exercise participation was supervised remotely by [facility] staff and any questions/concerns were addressed with the patient. Modifications were made to programming as appropriate to suit Veterans individual needs, preferences, and whole health concerns. /johanny/ VIOLETTA FINK LICENSE CIGAR BINDER Signed: 08/27/2023 10:57 DOUG ONEILL [facility]
--- OUTSIDE RECORDS SUMMARY | 2024-03-05 06:22 | XMS_ITS | Encounter Summary ---
Author Name [facility] [place] Address [address] [place] [address] Care Team Providers Care Lime Vat Tender Name Role Phone LEN MENDOZA Primary Care [...] PART B Sep 23, 2014 PART B [id number] HARMONY MCCALL JR PATIENT MEDICARE (WNR) MEDICARE (M) PART A July 25, 2007 PART A [id number] HARMONY MCCALL JR PATIENT MEDICARE (WNR) MEDICARE (M) PART B July 25, 2007 PART B [id number] [phone] HARMONY MCCALL JR PATIENT MEDICARE (WNR) MEDICARE (M) PART A July 25, 2007 PART A [id number] HARMONY MCCALL JR PATIENT [facility] (OPT/PROF ) [facility] * Jan 24, 2015 [id number] 18 CAROLE MCCALL SPOUSE Selected Encounter This section includes the information on record at [place] for the Encounter. Date/Time Encounter Type Encounter Description Reason Provider Source Aug 30, 2023 11:00 AM WEIGHT MGMT CLASS WEIGHT MGMT & MOVE! PROG - GRP ICD-10-CM Z68.29 Body mass index [BMI] 29.0-29.9, adult GORDON PATHAK [facility] Encounter Template Text not used by [place] Assessments - Encounter Diagnoses This section includes the primary and secondary diagnoses documented for the Encounter. Date/Time Primary/Secondary Diagnosis Diagnosis Name Provider Source Sep 02, 2023 12:04 PM PRIMARY Body mass index [BMI] 29.0-29.9, adult GORDON PATHAK [facility] Sep 02, 2023 12:04 PM SECONDARY Overweight GORDON PATHAK [place] Plan of Treatment: Future Appointments (+ 6 [...] Date/Time Appointment Type Appointme nt Facility Name Sep 06, 2023 11:00 AM AMBULATORY - NONE [place] Sep 13, 2023 11:00 AM AMBULATORY - NONE [place] Sep 20, 2023 11:00 AM AMBULATORY - NONE [place] Sep 25, 2023 11:30 AM [facility] Oct 04, 2023 11:00 AM AMBULATORY - NONE [place] Oct 11, 2023 11:00 AM AMBULATORY - NONE [place] Oct 18, 2023 11:00 AM AMBULATORY - NONE [place] Oct 23, 2023 09:00 AM [facility] Oct 25, 2023 11:00 AM AMBULATORY [...] AMBULATORY - NONE [facility] [place] [facility] Dec 06, 2023 11:00 AM AMBULATORY - NONE [place] Dec 11, 2023 10:00 AM AMBULATORY - NONE [facility] [place] [facility] Dec 11, 2023 01:00 PM AMBULATORY - MEDICINE [facility] [place] [facility] Dec 13, 2023 11:00 AM AMBULATORY - NONE [place] Dec 20, 2023 11:00 AM AMBULATORY - NONE [place] Encounter Notes: All associated encounter notes This section contains the clinical notes associated to the Encounter. Date/Time Encounter Note(s) Provider Source Sep 02, 2023 11:58 AM MOVE NOTE: LOCAL TITLE: WEIGHT MANAGEMENT/MOVE! OUTPATIENT GROUP NOTE STANDARD TITLE: MOVE NOTE DATE OF NOTE: SEP 02, 2023@11:58 ENTRY DATE: SEP 02, 2023@11:58:33 AUTHOR: GORDON PATHAK COSIGNER: URGENCY: STATUS: COMPLETED [place] participated in MOVE! Group Counseling via [facility] on August 30, 2023. The [place] was provided with information on [facility] and has given verbal consent to use group [facility] services for their healthcare. The copy of the Group Telehealth Agreement has been mailed to the . The Veterans location/emergency contact number were confirmed. The Emergency Call Relay Center ([phone]) was available. The visit was locked for security and privacy. identified with 2 identifiers: [ ] Full Name [ ] Address Veterans attended the [facility] MOVE! group session on this date. MOVE! is a program designed to provide education about weight management skills to overweight and obese Veterans. Group members combined to gained 8.4 pounds since their last attended group. Group members focused discussion around the Healthy Plate model of meals. They wanted to discuss what they usually eat for breakfast and how they might alter their meals to close the gap between what they are currently consuming and what the ideal plate of food should look like in order to maximize their health. They became aware of the lack of protein and non-starchy vegetables in many of their traditional breakfast meals. Facilitators focused upon showing progress rather than focusing on changing everything at once. The valdovinos is to find changes that are improvements that one is happy to continue indefinitely. Group members played around with some possibilities of what they will work on during the coming week. Group members shared their individual goals for the next week. The next [facility] MOVE! group meeting will be held on August @ 11:00am. [place]'s reported weight was 208.3 lbs. and lost 0.2 pounds since last group attended. Dx: Overweight Obesity E66.3 BMI 29.0-29.9 The session lasted for 1 hour in duration. /johanny/ GORDON PATHAK, Ph.D. CLINICAL PSYCHOLOGIST Signed: 09/02/2023 12:10 Receipt Acknowledged By: 09/04/2023 10:44 /johanny/ SANTIAGO KRAMER STAFF DIETITIAN GORDON PATHAK
--- OUTSIDE RECORDS SUMMARY | 2024-03-05 06:23 | XMS_ITS | Encounter Summary ---
Author Name [facility] [place] Address [address] [place] [address] Care Team Providers Care Farm Boss Name Role Phone LEN MENDOZA Primary Care [...] Policy Ybarra's Name Patient's Relationship to Policy Byarra MEDICARE (WNR) MEDICARE (M) PART B Sep 23, 2014 PART B [id number] HARMONY MCCALL JR PATIENT MEDICARE (WNR) MEDICARE (M) PART A July 25, 2007 PART A [id number] HARMONY MCCALL JR PATIENT MEDICARE (WNR) MEDICARE (M) PART B July 25, 2007 PART B [id number] [phone] HARMONY MCCALL JR PATIENT MEDICARE (WNR) MEDICARE (M) PART A July 25, 2007 PART A [id number] HARMONY MCCALL JR PATIENT [facility] MEDICAL EXPENSE (OPT/PROF ) [facility] * Jan 24, 2015 [id number] 18 CAROLE MCCALL SPOUSE Selected Encounter This section includes the information on record at [place] for the Encounter. Date/Time Encounter Type Encounter Description Reason Provider Source Sep 07, 2023 11:02 AM EXERCISE CLASS HEALTH/WELLBEING SRVS ICD-10-CM Z72.3 Lack of physical exercise JANIE LAZCANO [facility] Encounter Template Text not used by [place] Assessments - Encounter Diagnoses This section includes the primary and secondary diagnoses documented for the Encounter. Date/Time Primary/Secondary Diagnosis Diagnosis Name Provider Source Sep 07, 2023 11:22 AM PRIMARY Lack of physical exercise [facility] Plan of Treatment: Future Appointments (+ [...] Appointment Type Appointme nt Facility Name Sep 13, 2023 11:00 AM AMBULATORY - NONE [place] Sep 20, 2023 11:00 AM AMBULATORY - NONE [place] Sep 25, 2023 11:30 AM [facility] [place] [facility] Oct 04, 2023 11:00 AM AMBULATORY - NONE [place] Oct 11, 2023 11:00 AM AMBULATORY - NONE [place] Oct 18, 2023 11:00 AM AMBULATORY - NONE [place] Oct 23, 2023 09:00 AM [facility] [place] [facility] Oct 25, 2023 11:00 AM AMBULATORY [...] 03, 2023 02:00 PM AMBULATORY - NONE [place] [facility] [place] [facility] Dec 06, 2023 11:00 AM AMBULATORY - NONE [place] Dec 11, 2023 10:00 AM AMBULATORY - NONE [facility] [place] [facility] Dec 11, 2023 01:00 PM AMBULATORY - MEDICINE [facility] [place] [facility] Dec 13, 2023 11:00 AM AMBULATORY - NONE [place] Dec 20, 2023 11:00 AM AMBULATORY - NONE [place] Dec 25, 2023 10:00 AM AMBULATORY - NONE [facility] [place] [facility] Social History: Smoking Status (Most current) [...] VA-TOBACCO FORMER USER [facility] [facility] Tobacco Use History This section includes a history of the smoking, or tobacco-related health factors, that were collected on or before the date of the Encounter. The data comes from the [place] facility where the Encounter took place. Date/Time Smoking Status/Tobacco Use Comment F acility Jan 26, 2023 01:30 PM VA-TOBACCO QUIT 15 YRS OR MORE [facility] [place] [facility] Jan 27, 2022 11:00 AM VA-TOBACCO FORMER USER [facility] [facility] Jan 27, 2022 11:00 AM VA-TOBACCO QUIT 15 YRS OR MORE [facility] [place] [facility] Sep 17, 2020 09:00 AM VA-TOBACCO FORMER USER [facility] [place] [facility] Sep 17, 2020 09:00 AM VA-TOBACCO QUIT 15 YRS OR MORE [facility] [place] [facility] Jun 04, 2019 02:57 PM VA-TOBACCO NEVER USED [facility] [place] [facility] Mar 14, 2018 11:23 AM VA-TOBACCO FORMER USER [facility] [facility] Mar 14, 2018 11:23 AM VA-TOBACCO QUIT 15 YRS OR MORE [facility] [place] [facility] Apr 04, 2017 12:30 PM QUIT TOBACCO USE > 7 YEARS AGO [facility] Apr 05, 2016 01:02 PM QUIT TOBACCO USE > 7 YEARS AGO quit in 1984 [facility] Encounter Notes: All associated encounter notes This section contains the clinical notes associated to the Encounter. Date/Time Encounter Note(s) Provider Source Sep 07, 2023 11:15 AM GERIATRIC MEDICINE NOTE: LOCAL TITLE: GEROFIT VCM/VVC/VOD TELEHEALTH SUPERVISED EXERCISE STANDARD TITLE: GERIATRIC MEDICINE NOTE DATE OF NOTE: SEP 07, 2023@11:15 ENTRY DATE: SEP 07, 2023@11:16:12 AUTHOR: JANIE LAZCANO EXP COSIGNER: URGENCY: STATUS: COMPLETED [place] Provided informed consent to receive treatment via Telehealth., [place] mailed and has been made verbally aware of [facility] [place] practices. [place]'s Location: address on record unless specified below. Emergency Contact: on record unless specified below. [place] participated remotely in the [facility] exercise program today through [place] Virtual Obstetrical Anesthesiologist. Activities were focused on progression of their individual exercise prescription (cardiorespiratory fitness training, strength training, etc.) and group-based exercise sessions to include, but not limited to: flexibility training, balance training & functional circuit training. Exercise participation was supervised remotely by [facility] staff and any questions/concerns were addressed with the patient. Modifications were made to programming as appropriate to suit Veterans individual needs, preferences, and whole health concerns. /es/ Janie Lazcano PT,DPT PHYSICAL THERAPIST Signed: 09/07/2023 11:26 JANIE LAZCANO [facility]
--- OUTSIDE RECORDS SUMMARY | 2024-03-05 06:24 | XMS_ITS | Encounter Summary ---
Author Name [place] Address [address] [place] [address] Care Team Providers Care Welding Production Supervisor Name Role Phone LEN MENDOZA Primary Care [...] PART B Sep 23, 2014 PART B [id number] HARMONY MCCALL JR PATIENT MEDICARE (WNR) MEDICARE (M) PART A July 25, 2007 PART A [id number] HARMONY MCCALL JR PATIENT MEDICARE (WNR) MEDICARE (M) PART B July 25, 2007 PART B [id number] [id number] HARMONY MCCALL JR PATIENT MEDICARE (WNR) MEDICARE (M) PART A July 25, 2007 PART A [id number] [id number] [phone] [id number] HARMONY MCCALL JR PATIENT [facility] MEDICAL EXPENSE (OPT/PROF ) [facility] * Jan 24, 2015 [id number] 18 CAROLE MCCALL SPOUSE Selected Encounter This section includes the information on record at [place] for the Encounter. Date/Time Encounter Type Encounter Description Reason Provider Source Sep 21, 2023 08:00 AM EXERCISE CLASS HEALTH/WELLBEING SRVS ICD-10-CM Z72.3 Lack of physical exercise TERRY COATES [facility] Encounter Template Text not used by [place] Assessments - Encounter Diagnoses This section includes the primary and secondary diagnoses documented for the Encounter. Date/Time Primary/Secondary Diagnosis Diagnosis Name Provider Source Sep 21, 2023 10:42 AM PRIMARY Lack of physical exercise [facility] Plan of Treatment: Future Appointments (+ [...] Appointment Type Appointme nt Facility Name Sep 25, 2023 11:30 AM AMBULATORY - MEDICINE [facility] Oct 04, 2023 11:00 AM AMBULATORY - NONE [place] Oct 11, 2023 11:00 AM AMBULATORY - NONE [place] Oct 18, 2023 11:00 AM AMBULATORY - NONE [place] Oct 23, 2023 09:00 AM AMBULATORY - NONE [place] [facility] [facility] Oct 25, [...] 03, 2023 02:00 PM AMBULATORY - NONE [place] [facility] [place] [facility] Dec 06, 2023 11:00 AM AMBULATORY - NONE [place] Dec 11, 2023 10:00 AM AMBULATORY - NONE [facility] [place] [facility] Dec 11, 2023 01:00 PM AMBULATORY - MEDICINE [facility] [place] [facility] Dec 13, 2023 11:00 AM [place] [place] Dec 20, 2023 11:00 AM AMBULATORY - NONE [place] Dec 25, 2023 10:00 AM AMBULATORY - NONE [facility] [place] [facility] Dec 27, 2023 11:00 AM AMBULATORY - NONE [place] Jan 03, 2024 11:00 [facility] Social History: Smoking Status (Most current) and Tobacco Use (All prior to encounter date) This section includes the most current, and the historical, smoking and tobacco- related health factors from the [place] facility where the Encounter took place. Current Smoking Status This section includes the most current smoking, or tobacco-related health factor, from the [place] facility where the Encounter took place. Date/Time Current Smoking Status Comment Facil ity Jan 26, 2023 01:30 PM VA-TOBACCO QUIT 15 YRS OR MORE [place] [facility] [place] [facility] Tobacco Use History This section includes a history of the smoking, or tobacco-related health factors, that were collected on or before the date of the Encounter. The data comes from the [place] facility where the Encounter took place. Date/Time [...] 15 YRS OR MORE [facility] Apr 04, 2017 12:30 PM QUIT TOBACCO USE > 7 YEARS AGO [facility] Apr 05, 2016 01:02 PM QUIT TOBACCO USE > 7 YEARS AGO quit in 1984 [facility] Encounter Notes: All associated encounter notes This section contains the clinical notes associated to the Encounter. Date/Time Encounter Note(s) Provider Source Sep 21, 2023 10:40 AM GERIATRIC MEDICINE NOTE: LOCAL TITLE: GEROFIT VCM/VVC/VOD TELEHEALTH SUPERVISED EXERCISE STANDARD TITLE: GERIATRIC MEDICINE NOTE DATE OF NOTE: SEP 21, 2023@10:40 ENTRY DATE: SEP 21, 2023@10:41:26 AUTHOR: DOUG ONEILL COSIGNER: URGENCY: STATUS: COMPLETED GEROFIT VVC/VCM/VOD Telehealth Supervised Exercise NOTE Provided informed consent to receive treatment via Telehealth., mailed and has been made verbally aware of [facility] [place] practices. [place]'s Location: address on record unless specified below. Emergency Contact: on record unless specified below. participated remotely in the Gerofit exercise program today through [place] Virtual Die Cutting Machine Operator. Activities were focused on progression of their [...] whole health concerns. /johanny/ VIOLETTA FINK LICENSE WOOD BORING MACHINE OPERATOR Signed: 09/21/2023 10:48 DOUG ONEILL [facility]
--- OUTSIDE RECORDS SUMMARY | 2024-03-05 06:24 | XMS_ITS | Encounter Summary ---
Author Name [facility] [facility] [place] Organization [facility] [place] [facility] [place] Address [address] [place] [address] Care Team Providers Care Bricklayer Tender Name Role Phone LEN MENDOZA Primary [...] PART B Sep 23, 2014 PART B [id number] HARMONY MCCALL JR PATIENT MEDICARE (WNR) MEDICARE (M) PART A July 25, 2007 PART A [id number] [phone] HARMONY MCCALL JR PATIENT MEDICARE (WNR) MEDICARE (M) PART B July 25, 2007 PART B [id number] [phone] HARMONY MCCALL JR PATIENT MEDICARE (WNR) MEDICARE (M) PART A July 25, 2007 PART A [id number] HARMONY MCCALL JR PATIENT [facility] (OPT/PROF ) [facility] * Jan 24, 2015 [id number] CAROLE MCCALL SPOUSE Selected Encounter This section includes the information on record at [place] for the Encounter. Date/Time Encounter Type Encounter Description Reason Provider Source Sep 20, 2023 11:00 AM WEIGHT MGMT CLASS WEIGHT MGMT & MOVE! PROG - GRP ICD-10-CM Z68.30 Body mass index [BMI] 30.0-30.9, adult GORDON PATHAK [facility] Encounter Template Text not used by [place] Assessments - Encounter Diagnoses This section includes the primary and secondary diagnoses documented for the Encounter. Date/Time Primary/Secondary Diagnosis Diagnosis Name Provider Source Sep 21, 2023 10:03 AM PRIMARY Body mass index [BMI] 30.0-30.9, adult GORDON PATHAK Sep 21, 2023 10:03 AM SECONDARY Other obesity due to excess calories GORDON PATHAK Plan of Treatment: Future Appointments [...] 25, 2023 11:30 AM AMBULATORY - MEDICINE [facility] Oct 04, 2023 11:00 AM AMBULATORY - NONE [place] Oct 11, 2023 11:00 AM AMBULATORY - NONE [place] Oct 18, 2023 11:00 AM AMBULATORY - NONE [place] Oct 23, 2023 09:00 AM AMBULATORY - NONE [facility] Oct 25, 2023 11:00 AM AMBULATORY [...] 03, 2023 02:00 PM [facility] Dec 06, 2023 11:00 AM AMBULATORY - NONE [place] Dec 11, 2023 10:00 AM [facility] [place] [facility] Dec 11, 2023 01:00 PM AMBULATORY [facility] [place] [facility] Dec 13, 2023 11:00 AM AMBULATORY - NONE [place] Dec 20, 2023 11:00 AM AMBULATORY - NONE [place] Dec 25, 2023 10:00 AM AMBULATORY [facility] NONE [facility] [place] [facility] Dec 27, 2023 11:00 AM AMBULATORY - NONE [place] Jan 03, 2024 11:00 AM AMBULATORY - NONE [place] Vital Signs: All taken on the encounter date This section contains inpatient and outpatient Vital Signs collected on the date of the Encounter. Date/Time Temperature Pulse Blood Pressure Respiratory Rate SP02 Pain Height Weight Body Mass Index Source Sep 20, 2023 11:17 AM 210.1 32 [place] Encounter Notes: All associated encounter notes This section contains the clinical notes associated to the Encounter. Date/Time Encounter Note(s) Provider Source Sep 21, 2023 09:56 AM MOVE NOTE: LOCAL TITLE: WEIGHT MANAGEMENT/MOVE! OUTPATIENT GROUP NOTE STANDARD TITLE: MOVE NOTE DATE OF NOTE: SEP 21, 2023@09:56 ENTRY DATE: SEP 21, 2023@09:56:20 AUTHOR: GORDON PATHAK COSIGNER: URGENCY: STATUS: COMPLETED participated in MOVE! Group Counseling via [facility] on September 20, 2023. The was provided with information on [facility] and has given verbal consent to use group VV services for their healthcare. The copy of the Group Telehealth Agreement has been mailed to the [place]. The Veterans location/emergency contact number were confirmed. The Emergency Call Relay Center (E911) was available. The visit was locked for security and privacy. identified with 2 identifiers: [ ] Full Name [ ] Address Veterans attended the [facility] MOVE! group session on this date. MOVE! is a program designed to provide education about weight management skills to overweight and obese Veterans. Group members combined to lose 0.7 pounds since their last attended group. Group members began today's discussion with one expressing concern about potentially losing too much weight. Facilitators recommended having a conversation with their provider to set healthy weight loss goals. Group talked about medical conditions that could cause excessive weight loss and dietitian shared some strategies of how to gain weight in such circumstances. One strategy involved consumption of peanut butter which surprised group members who eat it while trying to lose weight. One [place] shared that he plans to throw out his peanut butter because it might be contributing to his weight being higher than he wants it to be. Group discussed strategies to recommit to weight loss including returning to food tracking and the Healthy Plate model for meals. Group members shared their individual goals for the next week. The next [facility] MOVE! group meeting will be held on September @ 11:00am due to the September 26 holiday falling on a next week. Veterans were made aware of the schedule change in today's group. 's reported weight was 210.1 lbs. and gained 0.6 pounds since last group attended. Dx: Obesity d/t Excess Calories Obesity E66.09 BMI 30.0-30.9 The session lasted for 1 hour in duration. /johanny/ GORDON PATHAK, Ph.D. CLINICAL PSYCHOLOGIST Signed: 09/21/2023 10:08 Receipt Acknowledged By: 09/24/2023 10:32 /es/ SANTIAGO KRAMER STAFF DIETITIAN GORDON PATHAK
--- OUTSIDE RECORDS SUMMARY | 2024-03-05 06:24 | XMS_ITS | Encounter Summary ---
Author Name [facility] [place] Organization [facility] [place] Address [address] [place] [id number] Care Team Providers Care Dispensing Optician Apprentice Name Role Phone LEN MENDOZA Primary Care [...] PART B Sep 23, 2014 PART B [id number] HARMONY MCCALL JR PATIENT MEDICARE (WNR) MEDICARE (M) PART A July 25, 2007 PART A [id number] HARMONY MCCALL JR PATIENT MEDICARE (WNR) MEDICARE (M) PART B July 25, 2007 PART B [id number] HARMONY MCCALL JR PATIENT MEDICARE (WNR) MEDICARE (M) PART A July 25, 2007 PART A [id number] [id number] HARMONY MCCALL JR PATIENT [facility] MEDICAL EXPENSE (OPT/PROF ) [facility] * Jan 24, 2015 [id number] CAROLE MCCALL SPOUSE Selected Encounter This section includes the information on record at [place] for the Encounter. Date/Time Encounter Type Encounter Description Reason Provider Source Sep 14, 2023 08:00 AM EXERCISE CLASS HEALTH/WELLBEING SRVS ICD-10-CM Z72.3 Lack of physical exercise TERRY COATES [facility] Encounter Template Text not used by [place] Assessments - Encounter Diagnoses This section includes the primary and secondary diagnoses documented for the Encounter. Date/Time Primary/Secondary Diagnosis Diagnosis Name Provider Source Sep 14, 2023 11:03 AM PRIMARY Lack of physical exercise [facility] Plan of Treatment: Future Appointments (+ [...] Appointment Type Appointme nt Facility Name Sep 20, 2023 11:00 AM AMBULATORY - NONE [place] Sep 25, 2023 11:30 AM AMBULATORY - MEDICINE [facility] [place] [place] [facility] Oct 04, 2023 11:00 AM AMBULATORY - NONE [place] Oct 11, 2023 11:00 AM AMBULATORY - NONE [place] Oct 18, 2023 11:00 AM AMBULATORY - NONE [place] Oct 23, 2023 09:00 AM AMBULATORY [facility] NONE [facility] [place] [facility] Oct 25, 2023 11:00 AM AMBULATORY - [...] 03, 2023 02:00 PM AMBULATORY - NONE [facility] [place] [facility] Dec 06, 2023 11:00 AM AMBULATORY - NONE [place] Dec 11, 2023 10:00 AM AMBULATORY - NONE [facility] [place] [facility] Dec 11, 2023 01:00 PM AMBULATORY [facility] MEDICINE [facility] [place] [facility] Dec 13, 2023 11:00 AM AMBULATORY - NONE [place] Dec 20, 2023 11:00 AM AMBULATORY - NONE [place] Dec 25, 2023 10:00 AM AMBULATORY - NONE [facility] [place] [facility] Dec 27, 2023 11:00 AM AMBULATORY - NONE [place] Social History: Smoking Status (Most current) and Tobacco Use (All prior to encounter date) This section includes the most current, and the historical, smoking and tobacco- related health factors from the [place] facility where the Encounter took place. Current Smoking Status This section includes the most current smoking, or tobacco-related health factor, from the [place] facility where the Encounter took place. Date/Time Current Smoking Status Comment Facil ity Jan 26, 2023 01:30 PM VA-TOBACCO QUIT 15 YRS OR MORE [facility] [place] [facility] Tobacco Use History This section includes a history of the smoking, or tobacco-related health factors, that were collected on or before the date of the Encounter. The data comes from the [place] facility where the Encounter took place. Date/Time Smoking Status/Tobacco Use Comment F acility Jan 26, 2023 01:30 PM VA-TOBACCO QUIT 15 YRS OR MORE [facility] [place] [facility] Jan 27, 2022 11:00 AM VA-TOBACCO FORMER USER [facility] [place] [facility] Jan 27, 2022 11:00 AM VA-TOBACCO QUIT 15 YRS OR MORE [facility] [place] [facility] Sep 17, 2020 09:00 AM VA-TOBACCO FORMER USER [facility] [place] [facility] Sep 17, 2020 09:00 AM VA-TOBACCO QUIT 15 YRS OR MORE [facility] [place] [facility] Jun 04, 2019 02:57 PM VA-TOBACCO NEVER USED [facility] [place] [facility] Mar 14, 2018 11:23 AM VA-TOBACCO FORMER USER [facility] [place] [facility] Mar 14, 2018 11:23 AM VA-TOBACCO QUIT 15 YRS OR MORE [facility] [place] [facility] Apr 04, 2017 12:30 PM QUIT TOBACCO USE > 7 YEARS AGO [facility] Apr 05, 2016 01:02 PM QUIT TOBACCO USE > 7 YEARS AGO quit in 1984 [facility] Encounter Notes: All associated encounter notes This section contains the clinical notes associated to the Encounter. Date/Time Encounter Note(s) Provider Source Sep 14, 2023 11:01 AM GERIATRIC MEDICINE NOTE: LOCAL TITLE: GEROFIT VCM/VVC/VOD TELEHEALTH SUPERVISED EXERCISE STANDARD TITLE: GERIATRIC MEDICINE NOTE DATE OF NOTE: SEP 14, 2023@11:01 ENTRY DATE: SEP 14, 2023@11:01:24 AUTHOR: TERRY COATES COSIGNER: URGENCY: STATUS: COMPLETED TIMO FIT VVC/VCM/VOD Telehealth Supervised Exercise NOTE [place] Provided informed consent to receive treatment via Telehealth., [place] mailed and has been made verbally aware of Telehealth Group [place] practices. [place]'s Location: address on record unless specified below. Emergency Contact: on record unless specified below. [place] participated remotely in the [facility] exercise program today through [place] Virtual Bulb Grader. Activities were focused on progression of their [...] TERRY COATES, PT, DPT PHYSICAL THERAPIST Signed: 09/14/2023 11:05 TERRY COATES [facility]
--- OUTSIDE RECORDS SUMMARY | 2024-03-05 06:24 | XMS_ITS | Encounter Summary ---
Author Name [facility] of [place] Organization [place] Address [address] [place] [address] Care Team Providers Care Computer Aided Drafter Name Role Phone LEN MENDOZA Primary Care [...] PART B Sep 23, 2014 PART B [id number] HARMONY MCCALL JR PATIENT MEDICARE (WNR) MEDICARE (M) PART A July 25, 2007 PART A [id number] HARMONY MCCALL JR PATIENT MEDICARE (WNR) MEDICARE (M) PART B July 25, 2007 PART B [id number] [id number] HARMONY MCCALL JR PATIENT MEDICARE (WNR) MEDICARE (M) PART A July 25, 2007 PART A [id number] HARMONY MCCALL JR PATIENT [facility] MEDICAL EXPENSE (OPT/PROF ) [facility] * Jan 24, 2015 [id number] [phone] CAROLE MCCALL SPOUSE Selected Encounter This section includes the information on record at [place] for the Encounter. Date/Time Encounter Type Encounter Description Reason Provider Source Sep 13, 2023 11:00 AM GROUP BEHAVE COUNS 2-10 WEIGHT MGMT & MOVE! PROG - GRP ICD-10-CM E66.09 Other obesity due to excess calories MIGUEL KRAMER Erin Encounter Template Text not used by [place] Assessments - Encounter Diagnoses This section includes the primary and secondary diagnoses documented for the Encounter. Date/Time Primary/Secondary Diagnosis Diagnosis Name Provider Source Sep 16, 2023 06:17 PM PRIMARY Other obesity due to excess calories SANTIAGO KRAMER Sep 16, 2023 06:17 PM SECONDARY Body mass index [BMI] 30.0-30.9, adult SANTIAGO KRAMER Plan of Treatment: Future Appointments (+ 6 months) and Future Tests (+/- 45 days) The Plan of Treatment section includes future care activities for the patient from all [place] treatmentfacilities. This section includes future appointments and future orders which are active, pending or scheduled. Future Appointments This section includes appointments that were scheduled to occur 6 months from the date of the Encounter, up to a maximum of 20 appointments. The data comes from all [place] treatment facilities. Appointment Date/Time Appointment Type Appointme nt Facility Name Sep 20, 2023 11:00 AM AMBULATORY - NONE [place] Sep 25, 2023 11:30 AM AM[facility]UL[facility] - MED[facility] Oct 04, 2023 11:00 AM AMBULATORY - NONE [place] Oct 11, 2023 11:00 AM AMBULATORY - NONE [place] Oct 18, 2023 11:00 AM AMBULATORY - NONE [place] Oct 23, 2023 09:00 AM [facility]ONE [facility] Oct 25, 2023 11:00 AM AMBULATORY - [...] AMBULATORY - NONE [facility] [place] [facility] Dec 06, 2023 11:00 AM AMBULATORY - NONE [place] Dec 11, 2023 10:00 AM AMBULATORY - NONE [facility] [place] [facility] Dec 11, 2023 01:00 PM AMBULATORY [facility] MEDICINE [facility] [place] [facility] Dec 13, 2023 11:00 AM AMBULATORY - NONE [place] Dec 20, 2023 11:00 AM AMBULATORY - NONE [place] Dec 25, 2023 10:00 AM AMBULATORY - NONE [facility] [place] [facility] Dec 27, 2023 11:00 AM AMBULATORY - NONE [place] Vital Signs: All taken on the encounter date This section contains inpatient and outpatient Vital Signs collected on the date of the Encounter. Date/Time Temperature Pulse Blood Pressure Respiratory Rate SP02 Pain Height Weight Body Mass Index Source Sep 13, 2023 12:14 PM 209.5 32 [place] Encounter Notes: All associated encounter notes This section contains the clinical notes associated to the Encounter. Date/Time Encounter Note(s) Provider Source Sep 13, 2023 11:00 AM MOVE NOTE: LOCAL TITLE: WEIGHT MANAGEMENT/MOVE! OUTPATIENT GROUP NOTE STANDARD TITLE: MOVE NOTE DATE OF NOTE: SEP 13, 2023@11:00 ENTRY DATE: SEP 16, 2023@17:58:30 AUTHOR: SANTIAGO KRAMER COSIGNER: URGENCY: STATUS: COMPLETED [place] participated in MOVE! Group Counseling via [facility] on September 13, 2023. The was provided with information on [facility] and has given verbal consent to use group VVC services for their healthcare. The copy of the Group Telehealth Agreement has been mailed to the . The Veterans location/emergency contact number were confirmed. The Emergency Call Relay Center (E911) was available. The visit was locked for security and privacy. [place] identified with 2 identifiers: [ ] Full Name [ ] Address Veterans attended the [facility] MOVE! group session on this date. MOVE! is a program designed to provide education about weight management skills to overweight and obese Veterans. Group members combined to gained 8.2 pounds since their last attended group. Group members began today's discussion talking about their challenges over past week in particular with exercise. They note their overall weight trending up and some made a committment to increasing their exercise this upcoming week. Facilitators presented on plant based foods. The next [facility] MOVE! group meeting will be held on August @ 11:00am. [place]'s reported weight was 209.5 lbs. and gained 1.2 pounds since last group attended. Dx: e66.09 z68.30 The session lasted for 1 hour in duration. /johanny/ SANTIAGO KRAMER STAFF DIETITIAN Signed: 09/16/2023 18:18 SANTIAGO KRAMER [place]
--- OUTSIDE RECORDS SUMMARY | 2024-03-05 06:25 | XMS_ITS | Encounter Summary ---
Author Name [place] Organization [place] Address [address] [place] [address] Care Team Providers Care Thin Film Technician Name Role Phone LEN MENDOZA Primary [...] PART B Sep 23, 2014 PART B [id number] [phone] HARMONY MCCALL JR PATIENT MEDICARE (WNR) MEDICARE (M) PART A July 25, 2007 PART A [id number] HARMONY MCCALL JR PATIENT MEDICARE (WNR) MEDICARE (M) PART B July 25, 2007 PART B [id number] [phone] HARMONY MCCALL JR PATIENT MEDICARE (WNR) MEDICARE (M) PART A July 25, 2007 PART A [id number] [phone] HARMONY MCCALL JR PATIENT [facility] MEDICAL EXPENSE (OPT/PROF ) [facility] * Jan 24, 2015 [id number] CAROLE MCCALL SPOUSE Selected Encounter This section includes the information on record at [place] for the Encounter. Date/Time Encounter Type Encounter Description Reason Provider Source Sep 24, 2023 08:00 AM EXERCISE CLASS HEALTH/WELLBEING SRVS ICD-10-CM Z72.3 Lack of physical exercise JANIE LAZCANO E Encounter Template Text not used by [place] Assessments - Encounter Diagnoses This section includes the primary and secondary diagnoses documented for the Encounter. Date/Time Primary/Secondary Diagnosis Diagnosis Name Provider Source Sep 24, 2023 10:25 AM PRIMARY Lack of physical exercise DAMON ONEILL [facility] Plan of Treatment: Future Appointments (+ [...] 25, 2023 11:30 AM [facility]UL[facility] Oct 04, 2023 11:00 AM AMBULATORY - NONE [place] Oct 11, 2023 11:00 AM AMBULATORY - NONE [place] Oct 18, 2023 11:00 AM AMBULATORY - NONE [place] Oct 23, 2023 09:00 AM AMBULATORY - NONE [facility] Oct 25, 2023 11:00 AM AMBULATORY [...] 03, 2023 02:00 PM AMBULATORY - NONE [place] [facility] [place] [facility] Dec 06, 2023 11:00 AM AMBULATORY - NONE [place] Dec 11, 2023 10:00 AM AMBULATORY - NONE [facility] [place] [facility] Dec 11, 2023 01:00 PM AMBULATORY - MEDICINE [facility] [place] [place] [facility] Dec 13, 2023 11:00 AM AM[place]ULATORY - NONE [place] Dec 20, 2023 11:00 AM AMBULATORY - NONE [place] Dec 25, 2023 10:00 AM AMBULATORY - NONE [facility] [place] [facility] Dec 27, 2023 11:00 AM AM[facility]ATORY - NONE [place] Jan 03, 2024 11:00 [facility] Social History: Smoking Status (Most current) [...] QUIT TOBACCO USE > 7 YEARS AGO [facility] Apr 05, 2016 01:02 PM QUIT TOBACCO USE > 7 YEARS AGO quit in 1984 [facility] Encounter Notes: All associated encounter notes This section contains the clinical notes associated to the Encounter. Date/Time Encounter Note(s) Provider Source Sep 24, 2023 10:24 AM GERIATRIC MEDICINE NOTE: LOCAL TITLE: GEROFIT VCM/VVC/VOD TELEHEALTH SUPERVISED EXERCISE STANDARD TITLE: GERIATRIC MEDICINE NOTE DATE OF NOTE: SEP 24, 2023@10:24 ENTRY DATE: SEP 24, 2023@10:24:47 AUTHOR: DOUG ONEILL COSIGNER: URGENCY: STATUS: COMPLETED GEROFIT VVC/VCM/VOD Telehealth Supervised Exercise NOTE [place] Provided informed consent to receive treatment via Telehealth., mailed and has been made verbally aware of Telehealth Group [place] practices. 's Location: address on record unless specified below. Emergency Contact: on record unless specified below. [place] participated remotely in the [facility] exercise program today through [place] Virtual Digital Art Director. Activities were focused on progression of their [...] whole health concerns. /johanny/ VIOLETTA FINK LICENSE DIE CUT OPERATOR Signed: 09/24/2023 10:34 DOUG ONEILL [facility]
--- OUTSIDE RECORDS SUMMARY | 2024-03-05 06:26 | XMS_ITS ---
Author Name [place] Address [address] [place] [address] Care Team Providers Care Passenger Representative Name Role Phone LEN MENDOZA Primary Care [...] PART B Sep 23, 2014 PART B [id number] [phone] HARMONY MCCALL JR PATIENT MEDICARE (WNR) MEDICARE (M) PART A July 25, 2007 PART A [id number] HARMONY MCCALL JR PATIENT MEDICARE (WNR) MEDICARE (M) PART B July 25, 2007 PART B [id number] [phone] HARMONY MCCALL JR PATIENT MEDICARE (WNR) MEDICARE (M) PART A July 25, 2007 PART A [id number] HARMONY MCCALL JR [facility] ([facility]PROF ) [facility] * Jan 24, 2015 [id number] CAROLE MCCALL SPOUSE Selected Encounter This section includes the information on record at [place] for the Encounter. Date/Time Encounter Type Encounter Description Reason Provider Source Sep 25, 2023 12:22 PM FIT SPECTACLES MONOFOCAL OPTOMETRY ICD-10-CM Z46.0 Encounter for fit/adjst of spectacles and contact lenses NIMO GEE Erin Encounter Template Text not used by [place] Assessments - Encounter Diagnoses This section includes the primary and secondary diagnoses documented for the Encounter. Date/Time Primary/Secondary Diagnosis Diagnosis Name Provider Source Sep 25, 2023 12:22 PM PRIMARY Encounter for fit/adjst of spectacles and contact lenses CARYN MARIA [facility] Plan of Treatment: Future Appointments (+ 6 [...] Appointment Type Appointme nt Facility Name Oct 04, 2023 11:00 AM AMBULATORY - NONE [place] Oct 11, 2023 11:00 AM AMBULATORY - NONE [place] Oct 18, 2023 11:00 AM AMBULATORY - NONE [place] Oct 23, 2023 09:00 [facility] Oct 25, 2023 11:00 AM AMBULATORY [...] 03, 2023 02:00 PM AMBULATORY - NONE [place] [facility] [place] [facility] Dec 06, 2023 11:00 AM AMBULATORY - NONE [place] Dec 11, 2023 10:00 AM AMBULATORY - NONE [place] [facility] [place] [facility] Dec 11, 2023 01:00 PM AMBULATORY - MEDICINE [place] [facility] [place] [facility] Dec 13, 2023 11:00 AM AMBULATORY - NONE [place] Dec 20, 2023 11:00 AM AMBULATORY - NONE [place] Dec 25, 2023 10:00 AM AMBULATORY - NONE [facility] [place] [facility] Dec 27, 2023 11:00 AM AMBULATORY - NONE [place] Jan 03, 2024 11:00 AM AMBULATORY - NONE [place] Jan 08, 2024 10:00 AM AMBULATORY - NONE [place] [facility] [place] [facility] Social History: Smoking Status (Most [...] FORMER USER [facility] [place] [facility] Tobacco Use History This [...] OR MORE [facility] [place] [facility] Jan 27, 2022 11:00 AM VA-TOBACCO FORMER USER [facility] [place] [facility] Jan 27, 2022 11:00 AM VA-TOBACCO QUIT 15 YRS OR MORE [facility] [place] [facility] Sep 17, 2020 09:00 AM VA-TOBACCO FORMER USER [facility] [place] [facility] Sep 17, 2020 09:00 AM VA-TOBACCO QUIT 15 YRS OR MORE [facility] [place] [facility] Jun 04, 2019 02:57 PM VA-TOBACCO NEVER USED [facility] [place] [facility] Mar 14, 2018 11:23 AM VA-TOBACCO FORMER USER [facility] [place] [facility] Mar 14, 2018 11:23 AM VA-TOBACCO QUIT 15 YRS OR MORE [place] [facility] [place] [facility] Apr 04, 2017 12:30 PM QUIT TOBACCO USE > 7 YEARS AGO [place] [facility] [place] [facility] Apr 05, 2016 01:02 PM QUIT TOBACCO USE > 7 YEARS AGO quit in 1984 [place] [facility] [place] [facility] Encounter Notes: All associated encounter notes This section contains the clinical notes associated to the Encounter. Date/Time Encounter Note(s) Provider Source Sep 25, 2023 12:22 PM OPTOMETRY NOTE: LOCAL TITLE: OPTOMETRY NOTE STANDARD TITLE: OPTOMETRY NOTE DATE OF NOTE: SEP 25, 2023@12:22 ENTRY DATE: SEP 25, 2023@12:22:15 AUTHOR: SILVANA HUSTON EXP COSIGNER: URGENCY: STATUS: COMPLETED OPTOMETRY NOTE Has ADDENDA The quote provided below is for informational purposes only. Please verify prior to the creation of a purchase order. [facility] 4038 RX INFORMATION OD +2.50 0.00 X Add:0.00 Pzm:0.00 Dir: Prz2:0.00 Dir2: OS +2.50 0.00 X Add:0.00 Pzm:0.00 Dir: Prz2:0.00 Dir2: FITTING INFORMATION FPD:59 NPD:59 [place]:R: L: SEG HT:R: L: Tint:None Shade:None VA Billable Items FRAME: US59 BLACK [id number] Right Lens: POLY SINGLE VISION 1.586 POLY Left Lens: POLY SINGLE VISION 1.586 POLY /johanny/ BRIANA MCINTYRE SPECIAL DELIVERY CLERK Signed: 09/25/2023 12:22 Receipt Acknowledged By: 09/25/2023 13:00 /johanny/ Chata Hendrickson [facility] Electronic News Gathering Editor 09/25/2023 ADDENDUM STATUS: COMPLETED PDS compressor assembler fit 1 SV eyeglasses on 09/25/2023. OPT HT entered consult(s) as requested for provider signature. /johanny/ Caryn Maria LPN Licensed Practical Nurse Signed: 09/25/2023 12:54 SILVANA HUSTON [place] [facility] [place] [facility]
--- OUTSIDE RECORDS SUMMARY | 2024-03-05 06:27 | XMS_ITS | Encounter Summary ---
Author Name [place] Address [address] [place] [id number] Care Team Providers Care Employee Development Director Name Role Phone LEN MENDOZA Primary [...] PART B Sep 23, 2014 PART B [id number] HARMONY MCCALL JR PATIENT MEDICARE (WNR) MEDICARE (M) PART A July 25, 2007 PART A [id number] HARMONY MCCALL JR PATIENT MEDICARE (WNR) MEDICARE (M) PART B July 25, 2007 PART B [id number] HARMONY MCCALL JR PATIENT MEDICARE (WNR) MEDICARE (M) PART A July 25, 2007 PART A [id number] [id number] [phone] [id number] HARMONY MCCALL JR PATIENT COUNTS INCLUDE 234 BEDS AT [facility] MEDICAL EXPENSE (OPT/PROF ) [facility] * Jan 24, 2015 [id number] 18 CAROLE MCCALL SPOUSE Selected Encounter This section includes the information on record at [place] for the Encounter. Date/Time Encounter Type Encounter Description Reason Provider Source Oct 01, 2023 08:00 AM EXERCISE CLASS HEALTH/WELLBEING [facility]VS ICD-10-CM Z72.3 Lack of physical exercise JANIE LAZCANO Erin Encounter Template Text not used by [place] Assessments - Encounter Diagnoses This section includes the primary and secondary diagnoses documented for the Encounter. Date/Time Primary/Secondary Diagnosis Diagnosis Name Provider Source Oct 01, 2023 10:52 AM PRIMARY Lack of physical exercise DAMON ONEILL [place] [facility] [place] [facility] Plan of Treatment: Future Appointments (+ 6 months) and Future Tests (+/- 45 days) The Plan of Treatment section includes future care activities for the patient from all [place] treatmentfacilities. This section includes future appointments and future orders which are active, pending or scheduled. Future Appointments This section includes appointments that were scheduled to occur 6 months from the date of the Encounter, up to a maximum of 20 appointments. The data comes from all [place] treatment facilities. Appointment Date/Time Appointment Type Appointme nt Facility Name Oct 04, 2023 11:00 AM AMBULATORY - NONE [place] Oct 11, 2023 11:00 AM AMBULATORY - NONE [place] Oct 18, 2023 11:00 AM AMBULATORY - NONE [place] Oct 23, 2023 09:00 AM AMBULATORY - NONE [place] [facility] [place] [facility] Oct 25, 2023 11:00 AM [...] - NONE [place] [facility] [place] [facility] Dec 06, 2023 11:00 AM AMBULATORY - NONE [place] Dec 11, 2023 10:00 AM AMBULATORY - NONE [facility] [place] [facility] Dec 11, 2023 01:00 PM AMBULATORY - MEDICINE [facility] [place] [facility] Dec 13, 2023 11:00 AM AMBULATORY - NONE [place] Dec 20, 2023 11:00 AM AMBULATORY - NONE [place] Dec 25, 2023 10:00 AM AMBULATORY - NONE [facility] [place] [facility] Dec 27, 2023 11:00 AM AMBULATORY - NONE [place] Jan 03, 2024 11:00 AM AMBULATORY - NONE [place] Jan 08, 2024 10:00 AM AMBULATORY - NONE [place] [facility] [place] [facility] Social History: Smoking Status (Most current) and Tobacco Use (All prior to encounter date) This section includes the most current, and the historical, smoking and tobacco- related health factors from the [place] facility where the Encounter took place. Current Smoking Status This section includes the most current smoking, or tobacco-related health factor, from the [place] facility where the Encounter took place. Date/Time Current Smoking Status Comment Facil ity Jan 26, 2023 01:30 PM VA-TOBACCO QUIT 15 YRS OR MORE [place] [facility] [place] [facility] Tobacco Use History This section includes a history of the smoking, or tobacco-related health factors, that were collected on or before the date of the Encounter. The data comes from the [place] facility where the Encounter took place. Date/Time Smoking Status/Tobacco Use Comment F acility Jan 26, 2023 01:30 PM VA-TOBACCO QUIT 15 YRS OR MORE [facility] [place] [facility] Jan 27, 2022 11:00 AM VA-TOBACCO FORMER USER [facility] [place] [facility] Jan 27, 2022 11:00 AM VA-TOBACCO QUIT 15 YRS OR MORE [facility] [place] [facility] Sep 17, 2020 09:00 AM VA-TOBACCO FORMER USER [facility] [place] [facility] Sep 17, 2020 09:00 AM VA-TOBACCO QUIT 15 YRS OR MORE [facility] [place] [facility] Jun 04, 2019 02:57 PM VA-TOBACCO NEVER USED [facility] [place] [facility] Mar 14, 2018 11:23 AM VA-TOBACCO FORMER USER [facility] [place] [facility] Mar 14, 2018 11:23 AM VA-TOBACCO QUIT 15 YRS OR MORE [facility] Apr 04, 2017 12:30 PM QUIT TOBACCO USE > 7 [facility] A[facility] Apr 05, 2016 01:02 PM QUIT TOBACCO USE > 7 YEARS AGO quit in 1984 [facility] Encounter Notes: All associated encounter notes This section contains the clinical notes associated to the Encounter. Date/Time Encounter Note(s) Provider Source Oct 01, 2023 10:50 AM GERIATRIC MEDICINE NOTE: LOCAL TITLE: GEROFIT VCM/VVC/VOD TELEHEALTH SUPERVISED EXERCISE STANDARD TITLE: GERIATRIC MEDICINE NOTE DATE OF NOTE: OCT 01, 2023@10:50 ENTRY DATE: OCT 01, 2023@10:50:52 AUTHOR: DOUG ONEILL COSIGNER: URGENCY: STATUS: COMPLETED GEROFIT VVC/VCM/VOD Telehealth Supervised Exercise NOTE Provided informed consent to receive treatment via Telehealth., [place] mailed and has been made verbally aware of Telehealth Group [place] practices. [place]'s Location: address on record unless specified below. Emergency Contact: on record unless specified below. [place] participated remotely in the Gerofit exercise program today through [place] Virtual Postal Support Employee. Activities were focused on progression of their [...] whole health concerns. /johanny/ VIOLETTA FINK LICENSE HYDROMETEOROLOGIST Signed: 10/01/2023 10:59 DOUG ONEILL [facility]
--- OUTSIDE RECORDS SUMMARY | 2024-03-05 06:27 | XMS_ITS | Encounter Summary ---
Author Name Department [place] Organization [place] Address [address] [place] [id number] Care Team Providers Care Pig Farmer Name Role Phone LEN MENDOZA Primary Care [...] PART B Sep 23, 2014 PART B [id number] HARMONY MCCALL JR PATIENT MEDICARE (WNR) MEDICARE (M) PART A July 25, 2007 PART A [id number] HARMONY MCCALL JR PATIENT MEDICARE (WNR) MEDICARE (M) PART B July 25, 2007 PART B [id number] [id number] HARMONY MCCALL JR PATIENT MEDICARE (WNR) MEDICARE (M) PART A July 25, 2007 PART A [id number] [id number] HARMONY MCCALL JR PATIENT [facility] MEDICAL EXPENSE (OPT/PROF ) [facility] * Jan 24, 2015 [id number] CAROLE MCCALL SPOUSE Selected Encounter This section includes the information on record at [place] for the Encounter. Date/Time Encounter Type Encounter Description Reason Provider Source Sep 26, 2023 08:00 AM EXERCISE CLASS HEALTH/WELLBEING SRVS ICD-10-CM Z72.3 Lack of physical exercise DAMON ONEILL IHE Encounter Template Text not used by [place] Assessments - Encounter Diagnoses This section includes the primary and secondary diagnoses documented for the Encounter. Date/Time Primary/Secondary Diagnosis Diagnosis Name Provider Source Sep 26, 2023 10:42 AM PRIMARY Lack of physical exercise DAMON ONEILL [place] [facility] [place] [facility] Plan of Treatment: Future Appointments (+ 6 [...] AMBULATORY - NONE [place] [facility] [place] [facility] Oct 25, 2023 11:00 AM AMBULATORY - [...] AMBULATORY - NONE [place] [facility] [place] [facility] Dec 06, 2023 11:00 AM AMBULATORY - NONE [place] Dec 11, 2023 10:00 AM AMBULATORY - NONE [facility] [place] [facility] Dec 11, 2023 01:00 PM AMBULATORY - MEDICINE [facility] [place] [facility] Dec 13, 2023 11:00 AM AMBULATORY - NONE [place] Dec 20, 2023 11:00 AM AMBULATORY - NONE [place] Dec 25, 2023 10:00 AM AMBULATORY - NONE [facility] [place] [facility] Dec 27, 2023 11:00 AM AMBULATORY - NONE [place] Jan 03, 2024 11:00 AM AMBULATORY - NONE [place] Jan 08, 2024 10:00 AM AMBULATORY - NONE [place] [facility] [place] [facility] Social History: Smoking Status (Most current) and [...] VA-TOBACCO FORMER USER [facility] [place] [facility] Tobacco Use History This section includes a history of the smoking, or tobacco-related health factors, that were collected on or before the date of the Encounter. The data comes from the [place] facility where the Encounter took place. Date/Time Smoking Status/Tobacco Use Comment F acility Jan 26, 2023 01:30 PM VA-TOBACCO QUIT 15 YRS OR MORE [facility] [place] [facility] Jan 27, 2022 11:00 AM VA-TOBACCO FORMER USER [facility] [place] [facility] Jan 27, 2022 11:00 AM VA-TOBACCO QUIT 15 YRS OR MORE [facility] [place] [facility] Sep 17, 2020 09:00 AM VA-TOBACCO FORMER USER [facility] [place] [facility] Sep 17, 2020 09:00 AM VA-TOBACCO QUIT 15 YRS OR MORE [facility] [place] [facility] Jun 04, 2019 02:57 PM VA-TOBACCO NEVER USED [facility] [place] [facility] Mar 14, 2018 11:23 AM VA-TOBACCO FORMER USER [facility] [place] [facility] Mar 14, 2018 11:23 AM VA-TOBACCO QUIT 15 YRS OR MORE [facility] Apr 04, 2017 12:30 PM QUIT TOBACCO USE > [facility] Apr 05, 2016 01:02 PM QUIT TOBACCO USE > 7 YEARS AGO quit in 1984 [facility] Encounter Notes: All associated encounter notes This section contains the clinical notes associated to the Encounter. Date/Time Encounter Note(s) Provider Source Sep 26, 2023 10:41 AM GERIATRIC MEDICINE NOTE: LOCAL TITLE: GEROFIT VCM/VVC/VOD TELEHEALTH SUPERVISED EXERCISE STANDARD TITLE: GERIATRIC MEDICINE NOTE DATE OF NOTE: SEP 26, 2023@10:41 ENTRY DATE: SEP 26, 2023@10:41:42 AUTHOR: DOUG ONEILL COSIGNER: URGENCY: STATUS: COMPLETED GEROFIT VVC/VCM/VOD Telehealth Supervised Exercise NOTE [place] Provided informed consent to receive treatment via Telehealth., [place] mailed and has been made verbally aware of Telehealth Group [place] practices. [place]'s Location: address on record unless specified below. Emergency Contact: on record unless specified below. [place] participated remotely in the Gerofit exercise program today through [place] Virtual Blending Coordinator. Activities were focused on progression of their [...] whole health concerns. /johanny/ VIOLETTA FINK LICENSE MANAGER FOREIGN Signed: 09/26/2023 10:47 DOUG ONEILL [facility]
--- OUTSIDE RECORDS SUMMARY | 2024-03-05 06:27 | XMS_ITS | Encounter Summary ---
Author Name [facility] [place] Address [address] [place] [address] Care Team Providers Care Inpatient Services Rn Name Role Phone LEN MENDOZA Primary [...] PART B Sep 23, 2014 PART B [id number] [phone] 4 HARMONY MCCALL JR PATIENT MEDICARE (WNR) MEDICARE ([place]) PART A July 25, 2007 PART A [id number] HARMONY MCCALL JR PATIENT MEDICARE (WNR) MEDICARE ([place]) PART B July 25, 2007 PART B [id number] [id number] HARMONY MCCALL JR PATIENT MEDICARE (WNR) MEDICARE (M) PART A July 25, 2007 PART A [id number] [phone] 4 HARMONY MCCALL JR PATIENT [facility] MEDICAL EXPENSE (OPT/PROF ) [facility] * Jan 24, 2015 [id number] [phone] CAROLE MCCALL SPOUSE Selected Encounter This section includes the information on record at [place] for the Encounter. Date/Time Encounter Type Encounter Description Reason Provider Source Oct 04, 2023 11:00 AM GROUP BEHAVE COUNS 2-10 WEIGHT MGMT & MOVE! PROG - GRP ICD-10-CM E66.09 Other obesity due to excess calories MIGUEL KRAMER Erin Encounter Template Text not used by [place] Assessments - Encounter Diagnoses This section includes the primary and secondary diagnoses documented for the Encounter. Date/Time Primary/Secondary Diagnosis Diagnosis Name Provider Source Oct 05, 2023 12:47 PM PRIMARY Other obesity due to excess calories SANTIAGO KRAMER Oct 05, 2023 12:47 PM SECONDARY Body mass index [BMI] 30.0-30.9, [...] Appointment Type Appointme nt Facility Name Oct 11, 2023 11:00 AM AMBULATORY - NONE [place] Oct 18, 2023 11:00 AM AMBULATORY - NONE [place] Oct 23, 2023 09:00 AM [facility] Oct 25, 2023 11:00 AM AMBULATORY [...] 03, 2023 02:00 PM [facility] NONE [facility] Dec 06, 2023 11:00 AM AMBULATORY - NONE [place] Dec 11, 2023 10:00 AM AMBULATORY - NONE [place] [facility] [place] [facility] Dec 11, 2023 01:00 PM AMBULATORY - MEDICINE [facility] [place] [facility] Dec 13, 2023 11:00 AM AMBULATORY - NONE [place] Dec 20, 2023 11:00 AM AMBULATORY - NONE [place] Dec 25, 2023 10:00 AM AMBULATORY - NONE [facility] [place] [facility] Dec 27, 2023 11:00 AM AMBULATORY - NONE [place] Jan 03, 2024 11:00 AM AMBULATORY - NONE [place] Jan 08, 2024 10:00 AM AMBULATORY - NONE [facility] [place] [facility] Jan 10, 2024 11:00 AM AMBULATORY - NONE [place] Vital Signs: All taken on the encounter date This section contains inpatient and outpatient Vital Signs collected on the date of the Encounter. Date/Time Temperature Pulse Blood Pressure Respiratory Rate SP02 Pain Height Weight Body Mass Index Source Oct 04, 2023 11:00 AM 209 32 [place] Encounter Notes: All associated encounter notes This section contains the clinical notes associated to the Encounter. Date/Time Encounter Note(s) Provider Source Oct 04, 2023 11:00 AM MOVE NOTE: LOCAL TITLE: WEIGHT MANAGEMENT/MOVE! OUTPATIENT GROUP NOTE STANDARD TITLE: MOVE NOTE DATE OF NOTE: OCT 04, 2023@11:00 ENTRY DATE: OCT 05, 2023@12:36:35 AUTHOR: SANTIAGO KRAMER COSIGNER: URGENCY: STATUS: COMPLETED [place] participated in MOVE! Group Counseling via [facility] on October 04, 2023. The was provided with information on [facility] and has given verbal consent [...] Name [ ] Address Veterans attended the [facility] MOVE! group session on this date. MOVE! is a program designed to provide education about weight management skills to overweight and obese Veterans. Group members combined to lose 5.4 pounds since their last attended group. Group members began today's discussion with their success over past couple of weeks. Members shared there 26 of September experiences. Faciliators led a discussion on in season fruits and vegetables available now. Group members shared their individual goals for the next week. The next [facility] MOVE! group meeting will be held on September @ 11:00am due to the September 26 holiday falling on a next week. Veterans were made aware of the schedule change in today's group. [place]'s reported weight was 209 lbs. and lost 1.1 pounds since last group attended. Dx: e66.09 z68.30 The session lasted for 1 hour in duration. /johanny/ SANTIAGO KRAMER STAFF DIETITIAN Signed: 10/05/2023 12:48 SANTIAGO KRAMER [place]
--- OUTSIDE RECORDS SUMMARY | 2024-03-05 06:30 | XMS_ITS | Encounter Summary ---
Author Name [facility] [place] Address [address] [place] [address] Care Team Providers Care Equipment Maintenance Engineer Name Role Phone LEN MENDOZA Primary [...] PART B Sep 23, 2014 PART B [id number] HARMONY MCCALL JR PATIENT MEDICARE (WNR) MEDICARE (M) PART A July 25, 2007 PART A [id number] HARMONY MCCALL JR PATIENT MEDICARE (WNR) MEDICARE (M) PART B July 25, 2007 PART B [id number] [id number] HARMONY MCCALL JR PATIENT MEDICARE (WNR) MEDICARE (M) PART A July 25, 2007 PART A [id number] [id number] HARMONY MCCALL JR PATIENT [facility] MEDICAL EXPENSE (OPT/PROF ) [facility] * Jan 24, 2015 [id number] 18 CAROLE MCCALL SPOUSE Selected Encounter This section includes the information on record at [place] for the Encounter. Date/Time Encounter Type Encounter Description Reason Provider Source Feb 07, 2024 11:00 AM HLTH BHV IVNTJ GRP EA ADDL WEIGHT MGMT & MOVE! PROG - GRP ICD-10-CM Z68.30 Body mass index [BMI] 30.0-30.9, adult GORDON PATHAK [facility] Encounter Template Text not used by [place] Assessments - Encounter Diagnoses This section includes the primary and secondary diagnoses documented for the Encounter. Date/Time Primary/Secondary Diagnosis Diagnosis Name Provider Source Feb 08, 2024 12:42 PM PRIMARY Body mass index [BMI] 30.0-30.9, adult GORDON PATHAK ASM[facility] Feb 08, 2024 12:42 PM SECONDARY Obesity, class 1 GORDON PATHAK Plan of Treatment: Future Appointments (+ 6 months) and Future Tests (+/- 45 days) The Plan of Treatment section includes future care activities for the patient from all [place] [facility]. This section includes future appointments and future orders which are active, pending or scheduled. Future Appointments This section includes appointments that were scheduled to occur 6 months from the date of the Encounter, up to a maximum of 20 appointments. The data comes from all [place] treatment facilities. Appointment Date/Time Appointment Type Appointme nt Facility Name Feb 14, 2024 11:00 AM AMBULATORY - NONE [facility] Feb 26, 2024 08:30 [facility] Feb 26, 2024 08:30 AM AM[facility]UL[facility] - MEDICINE [facility] Feb 28, 2024 11:00 AM AMBULATORY - NONE [facility] Jul 21, 2024 10:00 AM AM[place]ULATORY - [place]ICINE [place] [facility] Active, Pending, and Scheduled Orders This section includes a listing of several types of active, pending, and scheduled orders, including clinic medications orders, diagnostic test orders, procedure orders and consult orders; where the start date of the order is 45 days before the date of the Encounter or 45 days after the date of theEncounter. The data comes from all [place] treatment [facility]. Test Date/Time Test Type Test Details Facility Name Jan 10, 2024 12:00 AM Laboratory - Chemi stry Order LIVER FUNCTION BLOOD (SST-SERUM) [facility] Jan 10, 2024 12:00 AM Laboratory - Chemi stry Order CBC BLOOD (LAV-BLOOD) [facility] Jan 10, 2024 12:00 AM Laboratory - Chemi stry Order BASIC METABOLIC PANEL (non-fasting) BLOOD (SST-SERUM) [facility] Jan 10, 2024 12:00 AM Laboratory - Chemi stry Order LIPID PANEL, NON FASTING BLOOD (SST-SERUM) [facility] Jan 10, 2024 12:00 AM Laboratory - Chemi stry Order TSH BLOOD (SST-SERUM) [facility] Jan 10, 2024 12:00 AM Laboratory - Chemi stry Order FERRITIN BLOOD (SST-SERUM) [facility] Jan 10, 2024 12:00 AM Laboratory - Chemi stry Order VITAMIN B12 BLOOD (SST-SERUM) [facility] Jan 10, 2024 12:00 AM Laboratory - Chemi stry Order IRON & TIBC PANEL BLOOD (SST-SERUM) [facility] Vital Signs: All taken on the encounter date This section contains inpatient and outpatient Vital Signs collected on the date of the Encounter. Date/Time Temperature Pulse Blood Pressure Respiratory Rate SP02 Pain Height Weight Body Mass Index Source Feb 07, 2024 11:41 AM 212.1 32 [place] Encounter Notes: All associated encounter notes This section contains the clinical notes associated to the Encounter. Date/Time Encounter Note(s) Provider Source Feb 08, 2024 12:36 PM MOVE NOTE: LOCAL TITLE: WEIGHT MANAGEMENT/MOVE! OUTPATIENT GROUP NOTE STANDARD TITLE: MOVE NOTE DATE OF NOTE: FEB 08, 2024@12:36 ENTRY DATE: FEB 08, 2024@12:36:46 AUTHOR: GORDON PATHAK COSIGNER: URGENCY: STATUS: COMPLETED [place] participated in MOVE! Group Counseling via [facility] on February 07, 2024. The [place] was provided with information on [facility] and has given verbal consent to use group [facility] services for their healthcare. The copy of the Group Telehealth Agreement has been mailed to the [place]. The Veterans location/emergency contact number were confirmed. The Emergency Call Relay Center (E911) was available. The visit was locked for security and privacy. [place] identified with 2 identifiers: [ ] Full Name [ ] Address Veterans attended the [facility] MOVE! group session on this date. MOVE! is a program designed to provide education about weight management skills to overweight and obese Veterans. Group members combined to gain 1.4 pounds since their last attended group. Group members began talking about poor food choices that they made this past week during 's Day with some partaking in free meals in restaurants. The trend of weight gain for the group continued this past week. Veterans shared that they think they will continue this pattern through the cold months to come. Facilitators shared that some of our most successful groups occurred during the winter months and reminded Veterans to focus on what they can control-- specifically, exercising and eating healthy. Facilitators reminded Veterans about the importance of modeling meals and snacks off of the Healthy Plate model which recommends a half of the plate contain non-starchy vegetables. The next [facility] MOVE! group meeting will be held on January @ 11:00am. [place]'s reported weight was 212.1 lbs. and gained 0.8 pounds since last group attended. Dx: Obesity Class 1 BMI 30.0-30.9 The session lasted for 1 hour in duration. /johanny/ GORDON PATHAK, Ph.D. CLINICAL PSYCHOLOGIST Signed: 02/08/2024 12:55 Receipt Acknowledged By: 02/11/2024 08:09 /johanny/ SANTIAGO KRAMER STAFF DIETITIAN GORDON PATHAK
--- OUTSIDE RECORDS SUMMARY | 2024-03-05 06:30 | XMS_ITS | Encounter Summary ---
Author Name [facility] [place] Organization [facility] [place] Address [address] [place] [address] Care Team Providers Care Holistic Nutritionist Name Role Phone LEN MENDOZA Primary Care [...] PART B Sep 23, 2014 PART B [id number] [id number] HARMONY MCCALL JR PATIENT MEDICARE (WNR) MEDICARE (M) PART A July 25, 2007 PART A [id number] [id number] HARMONY MCCALL JR PATIENT MEDICARE (WNR) MEDICARE (M) PART B July 25, 2007 PART B [id number] [id number] HARMONY MCCALL JR PATIENT MEDICARE (WNR) MEDICARE (M) PART A July 25, 2007 PART A [id number] PK04 HARMONY MCCALL JR PATIENT [facility] MEDICAL EXPENSE (OPT/PROF ) [facility] * Jan 24, 2015 [id number] 18 CAROLE MCCALL SPOUSE Selected Encounter This section includes the information on record at [place] for the Encounter. Date/Time Encounter Type Encounter Description Reason Provider Source Feb 14, 2024 11:00 AM HLTH BHV IVNTJ GRP EA ADDL WEIGHT MGMT & MOVE! PROG - GRP ICD-10-CM Z68.30 Body mass index [BMI] 30.0-30.9, adult GORDON PATHAK [facility] Encounter Template Text not used by [place] Assessments - Encounter Diagnoses This section includes the primary and secondary diagnoses documented for the Encounter. Date/Time Primary/Secondary Diagnosis Diagnosis Name Provider Source Feb 15, 2024 10:10 AM PRIMARY Body mass index [BMI] 30.0-30.9, adult GORDON PATHAK Feb 15, 2024 10:10 AM SECONDARY Obesity, class 1 GORDON PATHAK Plan of Treatment: Future Appointments (+ 6 months) and Future Tests (+/- 45 days) The Plan of Treatment section includes future care activities for the patient from all [place] [facility] This section includes future appointments and future orders which are active, pending or scheduled. Future Appointments This section includes appointments that were scheduled to occur 6 months from the date of the Encounter, up to a maximum of 20 appointments. The data comes from all [place] treatment facilities. Appointment Date/Time Appointment Type Appointme nt Facility Name Feb 26, 2024 08:30 AM AMBULATORY - NONE [facility] Feb 26, 2024 08:30 AM AMBULATORY - MEDICINE [facility] Feb 28, 2024 11:00 AM AMBULATORY - NONE [facility] Jul 21, 2024 10:00 AM AMBULATORY - MEDICINE [facility] Active, Pending, and Scheduled Orders This section includes a listing of several types of active, pending, and scheduled orders, including clinic medications orders, diagnostic test orders, procedure orders and consult orders; where the start date of the order is 45 days before the date of the Encounter or 45 days after the date of theEncounter. The data comes from all [place] treatment [facility]. Test Date/Time Test Type Test Details Facility Name Jan 10, 2024 12:00 AM Laboratory - Chemi stry Order CBC BLOOD (LAV-BLOOD) [facility] Jan 10, 2024 12:00 AM Laboratory - Chemi stry Order BASIC METABOLIC PANEL (non-fasting) BLOOD (SST-SERUM) [facility] Jan 10, 2024 12:00 AM Laboratory - Chemi stry Order LIPID PANEL, NON FASTING BLOOD (SST-SERUM) [facility] Jan 10, 2024 12:00 AM Laboratory - Chemi stry Order LIVER FUNCTION BLOOD (SST-SERUM) [facility] Jan 10, 2024 12:00 AM Laboratory - Chemi stry Order TSH BLOOD (SST-SERUM) [facility] Jan 10, 2024 12:00 AM Laboratory - Chemi stry Order FERRITIN BLOOD (SST-SERUM) [facility] Jan 10, 2024 12:00 AM Laboratory - Chemi stry Order VITAMIN B12 BLOOD (SST-SERUM) [facility] Jan 10, 2024 12:00 AM Laboratory - Chemi stry Order IRON & TIBC PANEL BLOOD (SST-SERUM) [facility] Vital Signs: All taken on the encounter date This section contains inpatient and outpatient Vital Signs collected on the date of the Encounter. Date/Time Temperature Pulse Blood Pressure Respiratory Rate SP02 Pain Height Weight Body Mass Index Source Feb 14, 2024 12:02 PM 215.3 33 [place] Encounter Notes: All associated encounter notes This section contains the clinical notes associated to the Encounter. Date/Time Encounter Note(s) Provider Source Feb 15, 2024 10:02 AM MOVE NOTE: LOCAL TITLE: WEIGHT MANAGEMENT/MOVE! OUTPATIENT GROUP NOTE STANDARD TITLE: MOVE NOTE DATE OF NOTE: FEB 15, 2024@10:02 ENTRY DATE: FEB 15, 2024@10:02:40 AUTHOR: GORDON PATHAK COSIGNER: URGENCY: STATUS: COMPLETED participated in MOVE! Group Counseling via [facility] on February 14, 2024. The was provided with information on [facility] and has given verbal consent to use group [facility] services for their healthcare. The copy of the Group Telehealth Agreement has been mailed to the . The Veterans location/emergency contact number were confirmed. The Emergency Call Relay Center (E911) was available. The visit was locked for security and privacy. [place] identified with 2 identifiers: [ ] Full Name [ ] Address Veterans attended the [facility] MOVE! group session on this date. MOVE! is a program designed to provide education about weight management skills to overweight and obese Veterans. Group members combined to lost 4.9 pounds since their last attended group. Group members began today's discussion talking about difficult it is to lose weight while rehabbing from an injury. Veterans noticed the lack of normal physical activity takes a toll on one's ability to burn calories and facilitate the weight loss process. Veterans asked questions and discussed the merits of joining a gym or an exercise program like [employer]. Those individuals who have participated in such programs answered questions and supported the idea as they found such opportunities very helpful in the past. Veterans shared their plans for the upcoming and concerns that such a special occasion might derail their healthier eating habits. Due to the upcoming next , the next [facility] MOVE! group meeting will be held on February @ 11:00am. [place]'s reported weight was 215.3 lbs. and gained 3.2 pounds since last group attended. Dx: Obesity Class 1 BMI 30.0-30.9 The session lasted for 1 hour in duration. /johanny/ GORDON PATHAK, Ph.D. CLINICAL PSYCHOLOGIST Signed: 02/15/2024 10:16 Receipt Acknowledged By: 02/17/2024 20:44 /johanny/ SANTIAGO KRAMER STAFF DIETITIAN GORDON PATHAK
--- OUTSIDE RECORDS SUMMARY | 2024-03-05 06:30 | XMS_ITS | Encounter Summary ---
Author Name [facility] [place] Address [address] [place] [address] Care Team Providers Care Mixer Tender Name Role Phone LEN MENDOZA Primary [...] PART B Sep 23, 2014 PART B [id number] HARMONY MCCALL JR PATIENT MEDICARE (WNR) MEDICARE (M) PART A July 25, 2007 PART A [id number] HARMONY MCCALL JR PATIENT MEDICARE (WNR) MEDICARE (M) PART B July 25, 2007 PART B [id number] [id number] HARMONY MCCALL JR PATIENT MEDICARE (WNR) MEDICARE (M) PART A July 25, 2007 PART A [id number] [id number] HARMONY MCCALL JR PATIENT [facility] MEDICAL EXPENSE (OPT/PROF ) [facility] * Jan 24, 2015 [id number] 18 CAROLE MCCALL SPOUSE Selected Encounter This section includes the information on record at [place] for the Encounter. Date/Time Encounter Type Encounter Description Reason Pro vider Source Mar 05, 2023 12:00 AM Outpatient Encounter EVENT (HISTORICAL) [facility] Encounter Template Text not used by [place] Plan of Treatment: Future Appointments (+ 6 months) and Future Tests (+/- 45 days) The Plan of Treatment section includes future care activities for the patient from all [place] treatment[facility]. This section includes future appointments and [...] AMBULATORY - NONE [facility] [place] [facility] Mar 29, 2023 11:00 AM AMBULATORY - NONE [place] Apr 05, 2023 11:00 AM AMBULATORY - NONE [place] Apr 10, 2023 10:00 AM AMBULATORY [facility] NONE [facility] [place] [facility] Apr 12, 2023 11:00 AM AMBULATORY - NONE [place] Apr 19, 2023 11:00 AM AMBULATORY - NONE [place] Apr 26, 2023 11:00 AM AMBULATORY - NONE [place] May 03, 2023 11:00 AM AMBULATORY - NONE [place] May 10, 2023 11:00 AM AMBULATORY - NONE [place] May 15, 2023 10:00 AM AMBULATORY [facility]ONE [facility] [place] [facility] May 17, 2023 11:00 AM AMBULATORY - NONE [place] May 24, 2023 11:00 AM AMBULATORY - NONE [place] May 29, 2023 10:00 AM AMBULATORY [facility] NONE [facility] [place] [facility] May 31, 2023 11:00 AM AMBULATORY - NONE [place] Jun 07, 2023 11:00 AM AMBULATORY - NONE [place] Jun 12, 2023 10:00 AM AMBULATORY [facility] NONE [facility] [place] [facility] Jun 14, 2023 11:00 AM AMBULATORY [...] YRS OR MORE [place] [facility] [place] [facility] Tobacco Use History This section includes a history of the smoking, or tobacco-related health factors, that were collected on or before the date of the Encounter. The data comes from the [place] facility where the Encounter took place. Date/Time Smoking Status/Tobacco Use Comment F acility Jan 26, 2023 01:30 PM VA-TOBACCO QUIT 15 YRS OR MORE [facility] [place] [facility] Jan 27, 2022 11:00 AM VA-TOBACCO FORMER USER [facility] [place] [facility] Jan 27, 2022 11:00 AM VA-TOBACCO QUIT 15 YRS OR MORE [facility] [place] [facility] Sep 17, 2020 09:00 AM VA-TOBACCO FORMER USER [facility] [place] [facility] Sep 17, 2020 09:00 AM VA-TOBACCO QUIT 15 YRS OR MORE [facility] [place] [facility] Jun 04, 2019 02:57 PM VA-TOBACCO NEVER USED [facility] [place] [facility] Mar 14, 2018 11:23 AM VA-TOBACCO FORMER USER [facility] [place] [facility] Mar 14, 2018 11:23 AM VA-TOBACCO QUIT 15 YRS OR MORE [facility] [place] [facility] Apr 04, 2017 12:30 PM QUIT TOBACCO USE > 7 YEARS AGO [facility] [place] [facility] Apr 05, 2016 01:02 PM QUIT TOBACCO USE > 7 YEARS AGO quit in 1984 [place] [facility] [place] [facility] Encounter Notes: All associated encounter notes This section contains the clinical notes associated to the Encounter. Date/Time Encounter Note(s) Provider Source Mar 05, 2023 12:00 AM RADIOLOGY NONVA NO TE: LOCAL TITLE: NON-VA RADIOLOGY STANDARD TITLE: RADIOLOGY NONVA NOTE DATE OF NOTE: MAR 05, 2023 ENTRY DATE: FEB 15, 2024@06:20:36 AUTHOR: MELISSA DONOVAN EXP COSIGNER: URGENCY: STATUS: COMPLETED VistA Imaging - Scanned Document SCANNED DOCUMENT SIGNATURE NOT REQUIRED Electronically Filed: 02/15/2024 by: MELISSA PARKS [place] [facility]
--- OUTSIDE RECORDS SUMMARY | 2024-03-05 06:31 | XMS_ITS | Encounter Summary ---
Author Name [facility] [place] Address [address] [place] [address] Care Team Providers Care Hand Fur Cleaner Name Role Phone LEN MENDOZA Primary Care [...] PART B Sep 23, 2014 PART B [id number] HARMONY MCCALL JR PATIENT MEDICARE (WNR) MEDICARE (M) PART A July 25, 2007 PART A [id number] [phone] HARMONY MCCALL JR PATIENT MEDICARE (WNR) MEDICARE (M) PART B July 25, 2007 PART B [id number] [phone] HARMONY MCCALL JR PATIENT MEDICARE (WNR) MEDICARE (M) PART A July 25, 2007 PART A [id number] HARMONY MCCALL JR PATIENT [facility] MEDICAL EXPENSE (OPT/PROF ) [facility] * Jan 24, 2015 [id number] 18 CAROLE MCCALL SPOUSE Selected Encounter This section includes the information on record at [place] for the Encounter. Date/Time Encounter Type Encounter Description Reason Provider Source Feb 28, 2024 11:00 AM HLTH BHV IVNTJ GRP EA ADDL WEIGHT MGMT & MOVE! PROG - GRP ICD-10-CM Z68.30 Body mass index [BMI] 30.0-30.9, adult GORDON PATHAK [facility] Encounter Template Text not used by [place] Assessments - Encounter Diagnoses This section includes the primary and secondary diagnoses documented for the Encounter. Date/Time Primary/Secondary Diagnosis Diagnosis Name Provider Source Feb 29, 2024 01:42 PM PRIMARY Body mass index [BMI] 30.0-30.9, adult GORDON PATHAK Feb 29, 2024 01:42 PM SECONDARY Obesity, class 1 GORDON PATHAK [...] Appointment Type Appointme nt Facility Name Jul 21, 2024 10:00 AM [place]UL[place]ORY [place] [facility] Vital Signs: All taken on the encounter date This section contains inpatient and outpatient Vital Signs collected on the date of the Encounter. Date/Time Temperature Pulse Blood Pressure Respiratory Rate SP02 Pain Height Weight Body Mass Index Source Feb 28, 2024 11:00 AM 214.6 33 [place] Encounter Notes: All associated encounter notes This section contains the clinical notes associated to the Encounter. Date/Time Encounter Note(s) Provider Source Feb 29, 2024 01:28 PM MOVE NOTE: LOCAL TITLE: WEIGHT MANAGEMENT/MOVE! OUTPATIENT GROUP NOTE STANDARD TITLE: MOVE NOTE DATE OF NOTE: FEB 29, 2024@13:28 ENTRY DATE: FEB 29, 2024@13:28:56 AUTHOR: GORDON PATHAK EXP COSIGNER: URGENCY: STATUS: COMPLETED participated in MOVE! Group Counseling via [facility] on February 28, 2024. The [place] was provided with information on [facility] and has given verbal consent to use group [facility] services for their healthcare. The copy of the Group Telehealth Agreement has been mailed to the [place]. The Veterans location/emergency contact number were confirmed. The Emergency Call Relay Center (E911) was available. The visit was locked for security and privacy. identified with 2 identifiers: [ ] Full Name [ ] Address Veterans attended the [facility] MOVE! group session on this date. MOVE! is a program designed to provide education about weight management skills to overweight and obese Veterans. Group members combined to lose 4.9 pounds since their last attended group. Group members began today's discussion talking about their successes in managing their food intake over the previous week's . They reported that it is particularly important to do so given the cold weather and their relative inactivity compared to warmer months of the year. Facilitators introduced a new manager of international who is attemding this group for two weeks as a part of her training. Group members shared that they would like her to present on the nutrition facts and recommendations concerning nuts and seeds during next week's group discussion. Veterans shared their strategies for the upcoming week. The next [facility] MOVE! group meeting will be held on February @ 11:00am. [place]'s reported weight was 214.6 lbs. and lost 0.7 pounds since last group attended. Dx: Obesity Class 1 BMI 30.0-30.9 The session lasted for 1 hour in duration. /johanny/ GORDON PATHAK, Ph.D. CLINICAL PSYCHOLOGIST Signed: 02/29/2024 13:46 Receipt Acknowledged By: 03/03/2024 08:02 /johanny/ SANTIAGO KRAMER STAFF DIETITIAN GORDON PATHAK
--- OUTSIDE RECORDS SUMMARY | 2024-03-05 06:31 | XMS_ITS | Encounter Summary ---
Author Name [facility] [place] [facility] [place] [facility] [place] Address [address] [place] [id number] Care Team Providers Care Test Carrier Name Role Phone LEN MENDOZA Primary Care [...] PART B Sep 23, 2014 PART B [id number] [phone] HARMONY MCCALL JR PATIENT MEDICARE (WNR) MEDICARE (M) PART A July 25, 2007 PART A [id number] HARMONY MCCALL JR PATIENT MEDICARE (WNR) MEDICARE (M) PART B July 25, 2007 PART B [id number] [phone] HARMONY MCCALL JR PATIENT MEDICARE (WNR) MEDICARE (M) PART A July 25, 2007 PART A [id number] [phone] HARMONY MCCALL JR PATIENT [facility] MEDICAL EXPENSE (OPT/PROF ) [facility] * Jan 24, 2015 [id number] CRAOLE MCCALL SPOUSE Selected Encounter This section includes the information on record at [place] for the Encounter. Date/Time Encounter Type Encounter Description Reason Provider Source Oct 19, 2023 10:22 AM EXERCISE CLASS HEALTH/WELLBEING [facility] ICD-10-CM Z72.3 Lack of physical exercise JANIE LAZCANO E Encounter Template Text not used by [facility] Assessments - Encounter Diagnoses This section includes the primary and secondary diagnoses documented for the Encounter. Date/Time Primary/Secondary Diagnosis Diagnosis Name Provider Source Oct 19, 2023 10:36 AM PRIMARY Lack of physical exercise JANIE LAZCANO [place] [facility] [place] [facility] Plan of Treatment: Future Appointments [...] Appointment Type Appointme nt Facility Name Oct 23, 2023 09:00 AM AMBULATORY - NONE [facility] [place] [facility] Oct 25, 2023 11:00 AM [...] [place] [facility] Dec 06, 2023 11:00 AM [...] AM AMBULATORY - NONE [place] [facility] Jan 21, 2024 11:00 AM AMBULATORY - MEDICINE [facility] [place] [facility] Social History: Smoking Status (Most [...] VA-TOBACCO FORMER USER [facility] [place] [facility] Tobacco Use History This section includes a history of the smoking, or tobacco-related health factors, that were collected on or before the date of the Encounter. The data comes from the [place] facility where the Encounter took place. Date/Time Smoking Status/Tobacco Use Comment F acility Jan 26, 2023 01:30 PM VA-TOBACCO QUIT 15 YRS OR MORE [facility] [place] [facility] Jan 27, 2022 11:00 AM VA-TOBACCO FORMER USER [facility] [place] [facility] Jan 27, 2022 11:00 AM VA-TOBACCO QUIT 15 YRS OR MORE [facility] [place] [facility] Sep 17, 2020 09:00 AM VA-TOBACCO FORMER USER [facility] [place] [facility] Sep 17, 2020 09:00 AM VA-TOBACCO QUIT 15 YRS OR MORE [facility] [place] [facility] Jun 04, 2019 02:57 PM VA-TOBACCO NEVER USED [facility] [place] [facility] Mar 14, 2018 11:23 AM VA-TOBACCO FORMER USER [facility] [place] [facility] Mar 14, 2018 11:23 AM VA-TOBACCO QUIT 15 YRS OR MORE [facility] Apr 04, 2017 12:30 PM QUIT TOBACCO USE > 7 YEARS AGO [facility] Apr 05, 2016 01:02 PM QUIT TOBACCO USE > 7 YEARS AGO quit in 1984 [facility] Encounter Notes: All associated encounter notes This section contains the clinical notes associated to the Encounter. Date/Time Encounter Note(s) Provider Source Oct 19, 2023 10:29 AM GERIATRIC MEDICINE NOTE: LOCAL TITLE: GEROFIT VCM/VVC/VOD TELEHEALTH SUPERVISED EXERCISE STANDARD TITLE: GERIATRIC MEDICINE NOTE DATE OF NOTE: OCT 19, 2023@10:29 ENTRY DATE: OCT 19, 2023@10:30:03 AUTHOR: JANIE LAZCANO EXP COSIGNER: URGENCY: STATUS: COMPLETED GEROFIT VVC/VCM/VOD Telehealth Supervised Exercise NOTE Provided informed consent to receive treatment via Telehealth., mailed and has been made verbally aware of [facility] [place] practices. 's Location: address on record unless specified below. Emergency Contact: on record unless specified below. [place] participated remotely in the Gerofit exercise program today through [place] [facility] [employer]. Activities were focused on progression of their [...] /es/ Janie Lazcano PT,DPT PHYSICAL THERAPIST Signed: 10/19/2023 10:39 JANIE LAZCANO [facility]
--- OUTSIDE RECORDS SUMMARY | 2024-03-05 06:31 | XMS_ITS | Encounter Summary ---
Author Name [facility] [place] Organization [facility] [place] Address [address] [place] [address] Care Team Providers Care Unit Manager Rn Name Role Phone LNE MENDOZA Primary Care Provider Unavailcamryn ble Insurance [...] PART B Sep 23, 2014 PART B [id number] HARMONY MCCALL JR PATIENT MEDICARE (WNR) MEDICARE (M) PART A July 25, 2007 PART A [id number] HARMONY MCCALL JR PATIENT MEDICARE (WNR) MEDICARE (M) PART B July 25, 2007 PART B [id number] HARMONY MCCALL JR PATIENT MEDICARE (WNR) MEDICARE (M) PART A July 25, 2007 PART A [id number] HARMON[facility]CCALL JR [facility] * Jan 24, 2015 [id number] CAROLE MCCALL SPOUSE Selected Encounter This section includes the information on record at [place] for the Encounter. Date/Time Encounter Type Encounter Description Reason Provider Source Feb 26, 2024 08:30 AM Outpatient Encounter ADMIN PAT ACTIVTIES (MASNONCT) ICD-10-CM G47.33 Obstructive sleep apnea (adult) (pediatric) ARELIS NUNO Erin Encounter Template Text not used by [place] Assessments - Encounter Diagnoses This section includes the primary and secondary diagnoses documented for the Encounter. Date/Time Primary/Secondary Diagnosis Diagnosis Name Provider Source Feb 26, 2024 10:26 AM PRIMARY Obstructive sleep apnea (adult) (pediatric) ARELIS NUNO [facility] Plan of Treatment: Future Appointments (+ [...] Appointment Type Appointme nt Facility Name Feb 28, 2024 11:00 AM AMBULATORY - NONE [facility] Jul 21, 2024 10:00 AM AMBULATORY - MEDICINE [facility] Social History: Smoking Status (Most current) and Tobacco Use (All prior to encounter date) This section includes the most current, and the historical, smoking and tobacco- related health factors from the [place] facility where the Encounter took place. Current Smoking Status This section includes the most current smoking, or tobacco-related health factor, from the [place] facility where the Encounter took place. Date/Time Current Smoking Status Comment Facil ity Jan 21, 2024 11:00 AM [place]-TOBACCO FORMER USER [facility] Tobacco Use History This section includes a history of the smoking, or tobacco-related health factors, that were collected on or before the date of the Encounter. The data comes from the [place] facility where the Encounter took place. Date/Time Smoking Status/Tobacco Use Comment F acility Jan 21, 2024 11:00 AM VA-TOBACCO QUIT 15 YRS OR MORE [facility] [place] [facility] Jan 26, 2023 01:30 PM VA-TOBACCO FORMER USER [facility] [place] [facility] Jan 26, 2023 01:30 PM VA-TOBACCO QUIT 15 YRS OR MORE [facility] [place] [facility] Jan 27, 2022 11:00 AM VA-TOBACCO FORMER USER [facility] [place] [facility] Jan 27, 2022 11:00 AM VA-TOBACCO QUIT 15 YRS OR MORE [facility] [place] [facility] Sep 17, 2020 09:00 AM VA-TOBACCO FORMER USER [facility] [place] [facility] Sep 17, 2020 09:00 AM VA-TOBACCO QUIT 15 YRS OR MORE [facility] [place] [facility] Jun 04, 2019 02:57 PM VA-TOBACCO NEVER USED [place] [facility] [place] [facility] Mar 14, 2018 11:23 AM VA-TOBACCO FORMER USER [facility] [place] [facility] Mar 14, 2018 11:23 AM VA-TOBACCO QUIT 15 YRS OR MORE [facility] [place] [facility] Apr 04, 2017 12:30 PM QUIT TOBACCO USE > 7 YEARS AGO [facility] [place] [facility] Apr 05, 2016 01:02 PM QUIT TOBACCO USE > 7 YEARS AGO quit in 1984 [place] [facility] [place] [facility] Encounter Notes: All associated encounter notes This section contains the clinical notes associated to the Encounter. Date/Time Encounter Note(s) Provider Source Feb 26, 2024 10:26 AM SLEEP MEDICINE NOT E: LOCAL TITLE: SLEEP DISORDER FOLLOW UP NOTE STANDARD TITLE: SLEEP MEDICINE NOTE DATE OF NOTE: FEB 26, 2024@10:26 ENTRY DATE: FEB 26, 2024@10:26:06 AUTHOR: ARELIS NUNO EXP COSIGNER: URGENCY: STATUS: COMPLETED SLEEP MEDICINE TELEMEDICINE FOLLOW UP (VVC) This visit was conducted in [facility] clinic. -Consent for video telehealth visit obtained from /caregiver -Address on file as well as 's current location were confirmed -Phone number ( ) current as posted in [facility] demographics -Pt is located at home -Safety and emergency procedures addressed during visit -Environment surveyed for participants -[facility] conference locked [place] identified with 2 identifiers: [X] Full Name [X] Date of [ ] VA ID Card HPI: The patient is a 83 year old with a history of elevated BMI (32), HTN, AAA, hypothyroidism, and mild YARELI on PAP who presents for 1 month follow up. He initially presented in 01/22/24 with the chief complaint of excessive daytime sleepiness. He was initially referred to have a sleep study due to restless sleep, EDS (ESS 15). HSAT done on 03/06/2023 which revealed mild YARELI with JENNIFER of 12/hr, mean SpO2 of 91.3%, billy 84%, and T<90% of 101 min (22%). He was set up with APAP 5-20 cmH20 on 10/23/2023. Download at our visit in December showed only 16/30 days of usage, avg use 2h40m, residual AHI of 0.9/hr. He reports that when he was using CPAP, he found it waking him up after about 4 hours (according to the download, it was closer to 2hr before usage would cease). He recalls that the mask would start leaking around the edges. During the time he did use CPAP, he did not perceive any improvements. He went to CPAP clinic and was referred to sleep clinic. His only sleep-related concern is that he can feel quite sleepy when he's not active. He reports that he would easily fall asleep if sedentary during the day (i.e., sitting in a chair). He generally stays active during the day, participates in multiple volunteer roles. His does not complain about his snoring. Interval History: At our last visit, his APAP pressures were narrowed from 5-20 to 5-10 cmH20, and he was asked to use CPAP consistently for a month and decide whether he is noticing improvement in daytime sleepiness. Download shows 100% usage, averaging 6h15m with a residual AHI of 1.6/hr. He reports improvement in daytime sleepiness. Before he would fall asleep if he sits in the chair, now he infrequently does so. He is tolerating therapy well, and the mask is comfortable, and leaks have subsided with the lower pressures and tightening of the straps. Current sleep-wake cycle (updated): Frequently will fall asleep in chair between MN-1am, will wake up and go to bed around 2am Bedtime: see above Sleep latency: quickly half the time the other half of the time, i may be fretting about something # of awakenings/how lon-3x/night to urinate, SL quick Rise time: 8-9am Bedpartner: Napping: much less dozing off in the chair Drowsy Driving: No EPWORTH SLEEPINESS SCALE: TOTAL 05/19 Sitting and Reading 0 score Watching Television 1 score Sitting inactive in a public place 0 score Sitting as a passenger in a car 1 hour without a break 1 score Lying down to rest in the afternoon _0 score Sitting and talking to someone ___ 0 score Sitting quietly after lunch without alcohol 0 score In a car, stopped for a few minutes in traffic 0 score Pertinent Social Hx: Caffeine: 1 cup of coffee in the AM ETOH: occasional social Smoking: no Occupation: retired, but involved in many volunteer activities Marital Status: PMH: Exposure to potentially hazardous substance Sleep apnea (disorder) Abdominal aortic aneurysm (disorder) COVID-19 Iron deficiency anemia (disorder) Hypothyroidism (disorder) Hypercholesterolemia (disorder) Allergic rhinitis (disorder) Osteoarthritis (disorder) Gastroesophageal reflux disease (disorder) Prolactinoma (disorder) Benign hypertension (disorder) MEDS: CARBOXYMETHYLCELLULOSE NA 0.5% OPH SOLN BROMOCRIPTINE (CYCLOSET) TAB, NON-VA (Patient/Family Reported) VITAMIN D3 (CHOLECALCIFEROL) TAB, NON-VA (Patient/Family Reported) CALCIUM CITRATE TAB, NON-VA (Patient/Family Reported) ASPIRIN TAB,CHEWABLE, NON-VA (Patient/Family Reported) CETIRIZINE HCL TAB, NON-VA (Patient/Family Reported) OTHER CAP/TAB, NON-VA (Patient/Family Reported) LOSARTAN POTASSIUM TAB, NON-VA (Patient/Family Reported) TAMSULOSIN (1ST LINE ALPHA KARL) CAP,ORAL, NON-VA (Patient/Family Reported) METOPROLOL SUCCINATE TAB,SA, NON-VA (Patient/Family Reported) LEVOTHYROXINE NA (SYNTHROID) TAB, NON-VA (Patient/Family Reported) ALLERGIES: NKDA PE: 02/14/24 12:02 Wt: 215.30 lb (97.66 kg) Body Mass Index: 33* GEN: well appearing, in NAD NEURO: awake, alert PSYCH: normal mood and affect PRIOR SLEEP STUDIES: HOME SLEEP APNEA TEST- NOX T3 DEVICE Name (Last, First): HARMONY MCCALL : 1940 Study date: 03/06/2023 Requesting Provider: LEN MENDOZA PATIENT HISTORY: 82 year old Male with BMI of 31 (weight 207 lbs, height 68 inches) ESS: 15 Symptoms: restless sleep, daytme tiredness Co-Morbidities: Hypertension, Obesity, Hypothyroidism Medication(s): LISINOPRIL 5MG TAB, ASPIRIN TAB,CHEWABLE, BROMOCRIPTINE (CYCLOSET) TAB, CALCIUM CITRATE TAB, CETIRIZINE HCL TAB, LEVOTHYROXINE NA (SYNTHROID) TAB, LOSARTAN POTASSIUM TAB, METOPROLOL SUCCINATE TAB,SA, OTHER CAP/TAB, TAMSULOSIN (1ST LINE ALPHA KARL) CAP,ORAL, VITAMIN D3 (CHOLECALCIFEROL) TAB STUDY DETAILS: - Total recording time was 600.0 minutes - Valid monitoring time (MT) was 472.7 minutes - Study start time was 12:13 AM - Study stop time was 8:05 AM BODY POSITION - Supine sleep was 133.3 minutes (28.2% of MT) - Non-Supine sleep was 335.4 minutes (71.0% of MT) RESPIRATORY PARAMETERS: - Respiratory Event Index (HST-JENNIFER 3%) was 12.3 events per hour. - Supine HST-JENNIFER was 18.0 events per hour. - Non-Supine HST-JENNIFER was 10.0 events per hour. - Central Apnea Index was 0.0 events per hour. - Total respiratory events included 94 hypopneas (3% rule), 1 obstructive apneas, 1 mixed apneas, and 0 central apneas. - Patient snored for 6.6 minutes during the study. - NEWTON-3% was 12.2 per hour. - Mean Oxygen Saturation was 91.3% - Lowest Oxygen Saturation was 84.0% - Saturations < 90%: 101.4 minutes (21.6% of MT) - Saturations <= 88%: 40.4 minutes (8.6% of MT) HEART RATE STATISTICS (BPM) - Mean: 57.4; Min: 44.0; Max: 86.0 IMPRESSION: - Mild Obstructive Sleep apnea (YARELI). This study showed an overall JENNIFER of 12.3 events per hour. The mean arterial oxygen saturation was 91.3% with billy saturation of 84.0%. The saturations < 90% was 101.4 minutes and 21.6% of recording time. - Study demonstrated adequate sampling of recording time with sufficient technical quality. HARMONY MCCALL 01/26/2024 - 02/24/2024 : 1940 Age: 83 years [place] Compliance Report Compliance Payor [facility] Usage 01/26/2024 - 02/24/2024 Usage days 30/30 days (100%) >= 4 hours 28 days (93%) < 4 hours 2 days (7%) Usage hours 187 hours 38 minutes Average usage (total days) 6 hours 15 minutes Average usage (days used) 6 hours 15 minutes Median usage (days used) 6 hours 17 minutes Total used hours (value since last reset - 02/24/2024) 256 hours AirSense 11 AutoSet Serial number [id number] Mode AutoSet Min Pressure 5 cmH2O Max Pressure 10 cmH2O EPR Fulltime EPR level 3 Response Soft Therapy Pressure - cmH2O Median: 7.2 95th percentile: 9.5 Maximum: 9.8 Leaks - L/min Median: 0.1 95th percentile: 0.2 Maximum: 3.2 Events per hour AI: 1.0 HI: 0.6 AHI: 1.6 Apnea Index Central: 0.3 Obstructive: 0.7 Unknown: 0.0 RERA Index 0.1 Brandyn-Lind respiration (average duration per night) 0 minutes (0%) Impression: 83 year old with 1) Mild YARELI with daytime sleepiness. He was initiated on APAP which he initially tried and stopped using due the mask waking him up during the night. We've since reduced his pressure settings to APAP 5-10 cmh20 and he's tightened his mask, and now tolerating therapy very well. He is 100% adherent and his residual AHI is low. He is also noticing significant improvement in his daytime sleepiness, no longer nodding off on the recliner. His ESS score is down from 15 to 2. Plan: - cont with excellent use of PAP - reviewed proper cleaning of supplies - ordered more AirFit F20 large mask/cushions and discussed interval of replacement RTC in 12 months. Total time spent during this encounter 30 min. /johanny/ ARELIS NUNO MD ATTENDING Signed: 02/26/2024 10:26 ARELIS NUNO [facility]
--- OUTSIDE RECORDS SUMMARY | 2024-03-05 06:31 | XMS_ITS | Encounter Summary ---
Author Name [facility] [place] Organization [facility] [place] Address [address] [place] [id number] Care Team Providers Care Water Meter Mechanic Name Role Phone LEN MENDOZA Primary Care [...] PART B Sep 23, 2014 PART B [id number] HARMONY MCCALL JR PATIENT MEDICARE (WNR) MEDICARE (M) PART A July 25, 2007 PART A [id number] HARMONY MCCALL JR PATIENT MEDICARE (WNR) MEDICARE (M) PART B July 25, 2007 PART B [id number] [phone] HARMONY MCCALL JR PATIENT MEDICARE (WNR) MEDICARE (M) PART A July 25, 2007 PART A [id number] HARMONY MCCALL JR PATIENT [facility] MEDICAL EXPENSE (OPT/PROF ) [facility] * Jan 24, 2015 [id number] 18 CAROLE MCCALL SPOUSE Selected Encounter This section includes the information on record at [place] for the Encounter. Date/Time Encounter Type Encounter Description Reason Pro vider Source IHE Encounter Template Text not used by VA
--- OUTSIDE RECORDS SUMMARY | 2024-03-05 06:31 | XMS_ITS | Encounter Summary ---
Author Name [facility] [place] Address [address] [place] [id number] Care Team Providers Care Base Wad Operator Adjuster Name Role Phone LEN MENDOZA Primary Care [...] PART B Sep 23, 2014 PART B [id number] HARMONY MCCALL JR PATIENT MEDICARE (WNR) MEDICARE (M) PART A July 25, 2007 PART A [id number] HARMONY MCCALL JR PATIENT MEDICARE (WNR) MEDICARE (M) PART B July 25, 2007 PART B [id number] HARMONY MCCALL JR PATIENT MEDICARE (WNR) MEDICARE (M) PART A July 25, 2007 PART A [id number] HARMONY MCCALL JR PATIENT [facility] MEDICAL EXPENSE (OPT/PROF ) [facility] * Jan 24, 2015 [id number] CAROLE MCCALL SPOUSE Selected Encounter This section includes the information on record at [place] for the Encounter. Date/Time Encounter Type Encounter Description Reason Provider Source Jan 22, 2024 11:00 AM OFFICE O/P EST MOD 30 MIN SLEEP MEDICINE ICD-10-CM G47.33 Obstructive sleep apnea (adult) (pediatric) ARELIS NUNO Erin Encounter Template Text not used by [place] Assessments - Encounter Diagnoses This section includes the primary and secondary diagnoses documented for the Encounter. Date/Time Primary/Secondary Diagnosis Diagnosis Name Provider Source Jan 22, 2024 12:18 PM PRIMARY Obstructive sleep apnea (adult) (pediatric) ARELIS NUNO [facility] Plan of Treatment: Future Appointments (+ 6 months) and Future Tests (+/- 45 days) The Plan of Treatment section includes future care activities for the patient from all [place] treatmentfacilities. This section includes future appointments and future orders which are active, pending or scheduled. Future Appointments This section includes appointments that were scheduled to occur 6 months from the date of the Encounter, up to a maximum of 20 appointments. The data comes from all [place] treatment facilities. Appointment Date/Time Appointment Type Appointme nt Facility Name Jan 24, 2024 11:00 AM AMBULATORY - NONE [facility] Jan 31, 2024 11:00 AM AMBULATORY - NONE [facility] Feb 07, 2024 11:00 AM AMBULATORY - NONE [facility] Feb 14, 2024 11:00 AM AMBULATORY - NONE [facility] [facility] Feb 26, 2024 08:30 AM AM[place] [place]ONE [place] [facility] Feb 26, 2024 08:30 AM AMBULATORY - MEDICINE [facility] Feb 28, 2024 11:00 AM AMBULATORY - NONE [facility] [facility] Jul 21, 2024 10:00 AM AMBULATORY - [place]ICINE [place] [facility] Active, Pending, and Scheduled Orders This section includes a listing of several types of active, pending, and scheduled orders, including clinic medications orders, diagnostic test orders, procedure orders and consult orders; where the start date of the order is 45 days before the date of the Encounter or 45 days after the date of theEncounter. The data comes from all [place] treatment facilities. Test Date/Time Test Type Test Details Facility Name Jan 10, 2024 12:00 AM Laboratory - Chemi stry Order CBC BLOOD (LAV-BLOOD) [facility] Jan 10, 2024 12:00 AM Laboratory - Chemi stry Order LIPID PANEL, NON FASTING BLOOD (SST-SERUM) [facility] Jan 10, 2024 12:00 AM Laboratory - Chemi stry Order BASIC METABOLIC PANEL (non-fasting) BLOOD (SST-SERUM) [facility] Jan 10, 2024 12:00 AM Laboratory - Chemi stry Order LIVER FUNCTION BLOOD (SST-SERUM) [facility] Jan 10, 2024 12:00 AM Laboratory - Chemi stry Order TSH BLOOD (SST-SERUM) [facility] Jan 10, 2024 12:00 AM Laboratory - Chemi stry Order FERRITIN BLOOD (SST-SERUM) [facility] Jan 10, 2024 12:00 AM Laboratory - Chemi stry Order VITAMIN B12 BLOOD (SST-SERUM) [facility] Jan 10, 2024 12:00 AM Laboratory - Chemi stry Order IRON & TIBC PANEL BLOOD (SST-SERUM) [facility] Encounter Notes: All associated encounter notes This section contains the clinical notes associated to the Encounter. Date/Time Encounter Note(s) Provider Source Jan 22, 2024 11:18 AM SLEEP MEDICINE CON SULT: LOCAL TITLE: SLEEP DISORDER INITIAL CONSULT NOTE STANDARD TITLE: SLEEP MEDICINE CONSULT DATE OF NOTE: JAN 22, 2024@11:18 ENTRY DATE: JAN 22, 2024@11:18:59 AUTHOR: ARELIS NUNO EXP COSIGNER: URGENCY: STATUS: COMPLETED SLEEP MEDICINE TELEMEDICINE CONSULT (VVC) This visit was conducted in VVC clinic. -Consent for video telehealth visit obtained from /caregiver -Address on file as well as 's current location were confirmed -Phone number ( ) current as posted in CPRS demographics -Pt is located at home -Safety and emergency procedures addressed during visit -Environment surveyed for participants -VVC conference locked [place] identified with 2 identifiers: [X] Full Name [X] Date of [ ] [facility] ID Card Reason for referral: has many questions regarding his sleep apnea, weight loss, need for treatment, expectations of treatment. He stopped use after 16 days as he did not feel any different. HPI: The patient is a 83 year old with a history of elevated BMI (32), HTN, AAA, hypothyroidism, and mild YARELI who presents with the main sleep-related concern(s) of excessive daytime sleepiness. He was initially referred to have a sleep study due to restless sleep, daytme tiredness (ESS 15). HSAT done on 03/06/2023 which revealed mild YARELI with JENNIFER of 12/hr, mean SpO2 of 91.3%, billy 84%, and T<90% of 101 min (22%). He was set up with APAP 5-20 cmH20 on 10/23/2023. Download shows days of usage, avg use 2h40m, residual [...] His does not complain about his snoring. Current sleep-wake cycle: Frequently will fall asleep in chair between MN-1am, will wake up and go to bed around 2-2:30am Bedtime: see above Sleep latency: quickly half the time the other half of the time, i may be fretting about something # of awakenings/how lonx/night to urinate, SL quick Rise time: 8-9am Bedpartner: Napping: sometimes, if sedentary, will fall asleep in the chair Drowsy Driving: No Pertinent Social Hx: Caffeine: 1 cup of [...] (disorder) MEDS: CARBOXYMETHYLCELLULOSE NA 0.5% OPH SOLN LISINOPRIL 5MG TAB BROMOCRIPTINE (CYCLOSET) TAB, NON-VA (Patient/Family Reported) VITAMIN [...] TAB, NON-VA (Patient/Family Reported) ALLERGIES: NKDA PE: 01/21/24 Ht: 68.00 in (172.72 cm) Wt: 212.00 lb (96.16 kg) Body Mass Index: 32*GEN: well appearing, in NAD NEURO: awake, alert PSYCH: normal mood and affect PERTINENT LABS: bicarb 28 PRIOR SLEEP STUDIES: HOME SLEEP APNEA TEST- [...] time with sufficient technical quality. HARMONY MCCALL 10/20/2023 - 11/18/2023 : 1940 Age: 83 years [place] Compliance Report Compliance Payor [facility] Usage 10/20/2023 - 11/18/2023 Usage days 16/30 days (53%) >= 4 hours 4 days (13%) < 4 hours 12 days (40%) Usage hours 42 hours 33 minutes Average usage (total days) 1 hours 25 minutes Average usage (days used) 2 hours 40 minutes Median usage (days used) 2 hours 1 minutes Total used hours (value since last reset - 11/18/2023) 42 hours AirSense 11 AutoSet Serial number [id number] Mode AutoSet Min Pressure 5 cmH2O Max Pressure 20 cmH2O EPR Fulltime EPR level 3 Response Soft Therapy Pressure - cmH2O Median: 6.6 95th percentile: 8.1 Maximum: 9.2 Leaks - L/min Median: 0.4 95th percentile: 1.7 Maximum: 9.1 Events per hour AI: 0.6 HI: 0.3 AHI: 0.9 Apnea Index Central: 0.4 Obstructive: 0.2 Unknown: 0.0 RERA Index 0.0 Brandyn-Lind respiration (average duration per night) 0 minutes (0%) Impression: 83 year old with 1) Mild YARELI with daytime sleepiness. He was initiated on APAP which he used for 16 days (averaging only 2-3 hr of use time), stopped using due the mask waking him up during the night. We discussed that the role of CPAP in mild YARELI is only to ameliorate symptoms related to YARELI. That said, he would like to try CPAP consistently to see if he can feel less sleepy during the day. We spent 20 minutes reviewing the proper application of his AirFit F20 mask (size large), ensuring that the straps are tightened, that the seal rests just below the lower lip. I provided him with a video to reinforce the proper appication of the Resmed AirFit F20 mask. Plan: - trial of CPAP with consistent use for 1 month - APAP pressures were narrowed from 5-20 to 5-10 cmH20 - provided video for reinforcement (https://[email or web address]/watch?v=[email or web address]) - if no improvement in daytime sleepiness after 1 month of consistent use, he may discontinue CPAP RTC in 1 months. Total time spent during this encounter 45 min. /johanny/ ARELIS NUNO MD ATTENDING Signed: 01/22/2024 12:18 ARELIS NUNO [facility]
--- OUTSIDE RECORDS SUMMARY | 2024-03-05 06:31 | XMS_ITS | Encounter Summary ---
Author Name [facility] [place] [facility] [place] Address [address] [place] [address] Care Team Providers Care Prepress Technician Name Role Phone LEN MENDOZA Primary [...] PART B Sep 23, 2014 PART B [id number] HARMONY MCCALL JR PATIENT MEDICARE (WNR) MEDICARE (M) PART A July 25, 2007 PART A [id number] HARMONY MCCALL JR PATIENT MEDICARE (WNR) MEDICARE (M) PART B July 25, 2007 PART B [id number] HARMONY MCCALL JR PATIENT MEDICARE (WNR) MEDICARE (M) PART A July 25, 2007 PART A [id number] HARMONY MCCALL JR PATIENT [facility] MEDICAL EXPENSE (OPT/PROF ) [facility] * Jan 24, 2015 [id number] [phone] CAROLE MCCALL SPOUSE Selected Encounter This section includes the information on record at [place] for the Encounter. Date/Time Encounter Type Encounter Description Reason Provider Source Oct 18, 2023 11:00 AM GROUP BEHAVE COUNS 2-10 WEIGHT MGMT & MOVE! PROG - GRP ICD-10-CM E66.09 Other obesity due to excess calories MIGUEL KRAMER Erin Encounter Template Text not used by [place] Assessments - Encounter Diagnoses This section includes the primary and secondary diagnoses documented for the Encounter. Date/Time Primary/Secondary Diagnosis Diagnosis Name Provider Source Oct 19, 2023 09:32 AM PRIMARY Other obesity due to excess calories SANTIAGO KRAMER Oct 19, 2023 09:32 AM SECONDARY Body mass index [BMI] 30.0-30.9, adult [...] AMBULATORY - NONE [facility] [place] [facility] Oct 25, 2023 11:00 AM [...] AMBULATORY - NONE [facility] [place] Dec 06, 2023 11:00 AM AMBULATORY - NONE [facility] [facility] Dec 11, 2023 10:00 AM AMBULATORY - NONE [facility] Dec 11, 2023 01:00 PM AMBULATORY - MEDICINE [facility] [place] Dec 13, 2023 11:00 AM AMBULATORY - NONE [facility] [facility] Dec 20, 2023 11:00 AM AMBULATORY - NONE [facility] [facility] Dec 25, 2023 10:00 AM AMBULATORY - NONE [facility] [place] Dec 27, 2023 11:00 AM AMBULATORY - NONE [facility] [facility] Jan 03, 2024 11:00 AM AMBULATORY - NONE [facility] [facility] Jan 08, 2024 10:00 AM AMBULATORY - NONE [facility] Jan 10, 2024 11:00 AM AMBULATORY - NONE [facility] [facility] Jan 17, 2024 11:00 AM AMBULATORY - NONE [facility] [facility] Jan 21, 2024 11:00 AM AM[facility]ORY [facility]ICINE [facility] Encounter Notes: All associated encounter notes This section contains the clinical notes associated to the Encounter. Date/Time Encounter Note(s) Provider Source Oct 18, 2023 11:00 AM MOVE NOTE: LOCAL TITLE: WEIGHT MANAGEMENT/MOVE! OUTPATIENT GROUP NOTE STANDARD TITLE: MOVE NOTE DATE OF NOTE: OCT 18, 2023@11:00 ENTRY DATE: OCT 19, 2023@09:16:38 AUTHOR: SANTIAGO KRAMER COSIGNER: URGENCY: STATUS: COMPLETED [place] participated in MOVE! Group Counseling via [facility] on October 18, 2023. The was provided with information on [facility] and has given verbal consent to use group [facility] services for their healthcare. The copy of the Group Telehealth Agreement has been mailed to the . The Veterans location/emergency contact number were confirmed. The Emergency Call Relay Center ([phone]) was available. The visit was locked for security and privacy. [place] identified with 2 identifiers: [ ] Full Name [ ] Address Veterans attended the [facility] MOVE! group session on this date. MOVE! is a program designed to provide education about weight management skills to overweight and obese Veterans. Group members combined to lose 1.3 pounds since their last attended group. Group members began today's discussion by discussing their past week struggles with eating out of the house at family functions. Group members asked questions on dragon fruit and purple potatoes. Facilitators provided info and feedback. Group members shared their individual goals for the next week. The next [facility] MOVE! group meeting will be held on October @ 11:00am. Taiban's reported weight was 209.5 lbs. and gained 0.9 pounds since last group attended. Dx:e66.09 z68.30 The session lasted for 1 hour in duration. /johanny/ SANTIAGO KRAMRE STAFF DIETITIAN Signed: 10/19/2023 09:33 Receipt Acknowledged By: 10/19/2023 23:19 /johanny/ GORDON PATHAK, Ph.D. CLINICAL PSYCHOLOGIST SANTIAGO KRAMERFIELD
--- OUTSIDE RECORDS SUMMARY | 2024-03-05 06:31 | XMS_ITS | Encounter Summary ---
Author Name [place] Address [address] [place] [address] Care Team Providers Care Route Sales Delivery Drivers Supervisor Name Role Phone LEN MENDOZA Primary [...] PART B Sep 23, 2014 PART B [id number] [phone] HARMONY MCCALL JR PATIENT MEDICARE (WNR) MEDICARE (M) PART A July 25, 2007 PART A [id number] HARMONY MCCALL JR PATIENT MEDICARE (WNR) MEDICARE (M) PART B July 25, 2007 PART B [id number] [id number] [phone] HARMONY MCCALL JR PATIENT MEDICARE (WNR) MEDICARE (M) PART A July 25, 2007 PART A [id number] HARMONY MCCALL JR PATIENT [facility] MEDICAL EXPENSE (OPT/PROF ) [facility] * Jan 24, 2015 [id number] CAROLE MCCALL SPOUSE Selected Encounter This section includes the information on record at [place] for the Encounter. Date/Time Encounter Type Encounter Description Reason Provider Source Feb 26, 2024 08:30 AM OFFICE O/P EST MOD 30 MIN SLEEP MEDICINE ICD-10-CM G47.33 Obstructive sleep apnea (adult) (pediatric) ARELIS NUNO E Encounter Template Text not used by [place] Assessments - Encounter Diagnoses This section includes the primary and secondary diagnoses documented for the Encounter. Date/Time Primary/Secondary Diagnosis Diagnosis Name Provider Source Feb 26, 2024 10:25 AM PRIMARY Obstructive sleep apnea (adult) (pediatric) ARELIS NUNO [facility] Plan of Treatment: Future Appointments (+ [...] 28, 2024 11:00 AM AMBULATORY - NONE [facility] Jul 21, 2024 10:00 AM [facility] Encounter Notes: All associated encounter notes This section contains the clinical notes associated to the Encounter. Date/Time Encounter Note(s) Provider Source Feb 26, 2024 08:51 AM SLEEP MEDICINE NOT E: LOCAL TITLE: SLEEP DISORDER FOLLOW-UP NOTE STANDARD TITLE: SLEEP MEDICINE NOTE DATE OF NOTE: FEB 26, 2024@08:51 ENTRY DATE: FEB 26, 2024@08:52 AUTHOR: ARELIS NUNO EXP COSIGNER: URGENCY: STATUS: COMPLETED SLEEP MEDICINE TELEMEDICINE FOLLOW UP (VVC) This visit was conducted in VVC clinic. -Consent for video telehealth visit obtained from /caregiver -Address on file as well as 's current location were confirmed -Phone number ( ) current as posted in CPRS demographics -Pt is located at home -Safety and emergency procedures addressed during visit -Environment surveyed for participants -VV conference locked [place] identified with 2 identifiers: [X] Full Name [X] Date of [ ] [place] ID Card HPI: The patient is a 83 year old with a history of elevated BMI (32), HTN, AAA, hypothyroidism, and mild YAREIL on PAP who presents for 1 month [...] Lying down to rest in the afternoon 0 score Sitting and talking to someone 0 score Sitting quietly after lunch without [...] - 02/24/2024 : 1940 Age: 83 years 631-[place] Compliance Report Compliance Payor [place] [facility] Usage 01/26/2024 - 02/24/2024 Usage days [...] 256 hours AirSense 11 AutoSet Serial number [id number] Mode AutoSet Min Pressure 5 cmH2O Max [...] /johanny/ ARELIS NUNO MD ATTENDING Signed: 02/26/2024 10:25 ARELIS NUNO [facility]
--- OUTSIDE RECORDS SUMMARY | 2024-03-05 06:32 | XMS_ITS | Encounter Summary ---
Author Name Department of [place] [place] Organization [facility] [place] Address [address] [place] [address] Care Team Providers Care Call Center Supervisor Name Role Phone LEN MENDOZA Primary [...] PART B Sep 23, 2014 PART B [id number] HARMONY MCCALL JR PATIENT MEDICARE (WNR) MEDICARE (M) PART A July 25, 2007 PART A [id number] [phone] HARMONY MCCALL JR PATIENT MEDICARE (WNR) MEDICARE (M) PART B July 25, 2007 PART B [id number] [phone] HARMONY MCCALL JR PATIENT MEDICARE (WNR) MEDICARE (M) PART A July 25, 2007 PART A [id number] HARMONY MCCALL JR PATIENT [facility] MEDICAL EXPENSE (OPT/PROF ) [facility] * Jan 24, 2015 [id number] CAROLE MCCALL SPOUSE Selected Encounter This section includes the information on record at [place] for the Encounter. Date/Time Encounter Type Encounter Description Reason Provider Source Oct 23, 2023 09:00 AM POS AIRWAY PRESSURE FILTER SLEEP MEDICINE ICD-10-CM G47.[address], [address] [facility],CURTIS P IHE Encounter Template Text not used by [place] Assessments - Encounter Diagnoses This section includes the primary and secondary diagnoses documented for the Encounter. Date/Time Primary/Secondary Diagnosis Diagnosis Name Provider Source Nov 19, 2023 08:19 AM PRIMARY Sleep apnea, unspecified [facility] AMANT[facility]TIS P [place] [facility] [place] [facility] Plan of Treatment: Future Appointments (+ 6 [...] Appointment Type Appointme nt Facility Name Oct 25, 2023 11:00 AM AMBULATORY - [...] AMBULATORY - NONE [facility] [place] [facility] Dec 06, 2023 11:00 AM AMBULATORY - NONE [facility] [facility] Dec 11, 2023 10:00 AM AMBULATORY - NONE [facility] [place] [facility] Dec 11, 2023 01:00 PM AMBULATORY - MEDICINE [facility] [place] [facility] Dec 13, 2023 11:00 AM AMBULATORY - NONE [place] Dec 20, 2023 11:00 AM AMBULATORY - NONE [facility] Dec 25, 2023 10:00 AM AMBULATORY - NONE [facility] [place] [facility] Dec 27, 2023 11:00 AM AMBULATORY - NONE [place] Jan 03, 2024 11:00 AM AMBULATORY - NONE [facility] [facility] Jan 08, 2024 10:00 AM AMBULATORY - NONE [facility] [place] [facility] Jan 10, 2024 11:00 AM AMBULATORY - NONE [place] Jan 17, 2024 11:00 AM AMBULATORY - NONE [facility] Jan 21, 2024 11:00 AM AMBULATORY - MEDICINE [facility] [place] [facility] Jan 22, 2024 11:00 AM AMBULATORY - MEDICINE [facility] Social History: Smoking Status (Most current) and [...] VA-TOBACCO FORMER USER [facility] [place] [facility] Tobacco Use History This section includes a history of the smoking, or tobacco-related health factors, that were collected on or before the date of the Encounter. The data comes from the [place] facility where the Encounter took place. Date/Time Smoking Status/Tobacco Use Comment F acility Jan 26, 2023 01:30 PM VA-TOBACCO QUIT 15 YRS OR MORE [facility] [place] [facility] Jan 27, 2022 11:00 AM VA-TOBACCO FORMER USER [facility] [place] [facility] Jan 27, 2022 11:00 AM VA-TOBACCO QUIT 15 YRS OR MORE [facility] [place] [facility] Sep 17, 2020 09:00 AM VA-TOBACCO FORMER USER [facility] [place] [facility] Sep 17, 2020 09:00 AM VA-TOBACCO QUIT 15 YRS OR MORE [facility] [place] [facility] Jun 04, 2019 02:57 PM VA-TOBACCO NEVER USED [facility] [place] [facility] Mar 14, 2018 11:23 AM VA-TOBACCO FORMER USER [facility] [place] [facility] Mar 14, 2018 11:23 AM VA-TOBACCO QUIT 15 YRS OR MORE [facility] Apr 04, 2017 12:30 PM QUIT TOBACCO USE > 7 YEARS AGO [facility] Apr 05, 2016 01:02 PM QUIT TOBACCO USE > 7 YEARS AGO quit in 1984 [facility] Encounter Notes: All associated encounter notes This section contains the clinical notes associated to the Encounter. Date/Time Encounter Note(s) Provider Source Oct 23, 2023 10:09 AM RESPIRATORY THERAP Y CONSULT: LOCAL TITLE: CONSULT REPORT/RESPIRATORY THERAPY STANDARD TITLE: RESPIRATORY THERAPY CONSULT DATE OF NOTE: OCT 23, 2023@10:09 ENTRY DATE: OCT 23, 2023@10:09:10 AUTHOR: CURTIS PUCKETT EXP COSIGNER: URGENCY: STATUS: COMPLETED [place] with diagnosis of sleep apnea was seen in clinic for Auto-CPAP set up. Home sleep test on 03/06/2023 with AHI 12.3. As recommended Vet was issued a ResMed Airsense 11 set to APAP @ 5-20 cmH2O, with tub, tubing and filters. [place] instructed on proper operation and cleaning of all equipment and given manuals. Vet was fit with F20 largeand instructed in application and adjustments. [place] demonstrated understanding of all instructions. We discussed ways to acclimate to therapy and the dangers of untreated sleep apnea. [place] will have 1&4 week data checks in AirView. Self-alert placed for yearly renewal. Written instructions for care and cleaning and contact information for department was given. [place] was encouraged to call with any issues. Vet will be added to Airview. RTC placed for follow up. /johanny/ CURTIS PUCKETT RESPIRATORY THERAPIST Signed: 10/23/2023 10:15 Receipt Acknowledged By: 10/24/2023 11:07 /johanny/ CURTIS COLLINS [facility]
--- OUTSIDE RECORDS SUMMARY | 2024-03-05 06:32 | XMS_ITS | Encounter Summary ---
Author Name [facility] [place] Address [address] [place] [id number] Care Team Providers Care Operations Research Group Manager Name Role Phone LEN MENDOZA Primary [...] PART B Sep 23, 2014 PART B [id number] HARMONY MCCALL JR PATIENT MEDICARE (WNR) MEDICARE (M) PART A July 25, 2007 PART A [id number] [phone] HARMONY MCCALL JR PATIENT MEDICARE (WNR) MEDICARE (M) PART B July 25, 2007 PART B [id number] HARMONY MCCALL JR PATIENT MEDICARE (WNR) MEDICARE (M) PART A July 25, 2007 PART A [id number] [id number] HARMONY MCCALL JR PATIENT [facility]MERLY [facility] MEDICAL EXPENSE (OPT/PROF ) [facility] * Jan 24, 2015 [id number] CAROLE MCCALL SPOUSE Selected Encounter This section includes the information on record at [place] for the Encounter. Date/Time Encounter Type Encounter Description Reason Provider Source Oct 24, 2023 08:00 AM EXERCISE CLASS HEALTH/WELLBEING SRVS ICD-10-CM Z72.3 Lack of physical exercise DAMON ONEILL I[facility] Encounter Template Text not used by [place] Assessments - Encounter Diagnoses This section includes the primary and secondary diagnoses documented for the Encounter. Date/Time Primary/Secondary Diagnosis Diagnosis Name Provider Source Oct 24, 2023 10:52 AM PRIMARY Lack of physical exercise DAMON ONEILL [place] [facility] [place] [facility] Plan of Treatment: Future Appointments (+ [...] - NONE [facility] [place] [facility] Dec 06, 2023 11:00 AM AM[place]ULATORY - NONE [place] Dec 11, 2023 10:00 AM AMBULATORY - NONE [facility] [place] [facility] Dec 11, 2023 01:00 PM AMBULATORY - MEDICINE [facility] [place] [facility] Dec 13, 2023 11:00 AM AMBULATORY - NONE [place] Dec 20, 2023 11:00 AM AMBULATORY - NONE [place] Dec 25, 2023 10:00 AM AMBULATORY - NONE [facility] [place] [facility] Dec 27, 2023 11:00 AM AMBULATORY - NONE [place] Jan 03, 2024 11:00 AM AMBULATORY - NONE [place] Jan 08, 2024 10:00 AM AMBULATORY - NONE [facility] [place] [facility] Jan 10, 2024 11:00 AM AMBULATORY - NONE [place] Jan 17, 2024 11:00 AM AMBULATORY - NONE [place] Jan 21, 2024 11:00 AM AMBULATORY - MEDICINE [facility] [place] [facility] Jan 22, 2024 11:00 AM AMBULATORY - MEDICINE [facility] Social History: Smoking Status (Most current) and Tobacco Use (All prior to encounter date) This section includes the most current, and the historical, smoking and tobacco- related health factors from the [place] facility where the Encounter took place. Current Smoking Status This section includes the most current smoking, or tobacco-related health factor, from the [place] facility where the Encounter took place. Date/Time Current Smoking Status Comment Facil ity Jan 26, 2023 01:30 PM VA-TOBACCO FORMER USER [facility] [place] [facility] Tobacco Use History This section includes a history of the smoking, or tobacco-related health factors, that were collected on or before the date of the Encounter. The data comes from the [place] facility where the Encounter took place. Date/Time Smoking Status/Tobacco Use Comment F acility Jan 26, 2023 01:30 PM VA-TOBACCO QUIT 15 YRS OR MORE [facility] [place] [facility] Jan 27, 2022 11:00 AM VA-TOBACCO FORMER USER [facility] [place] [facility] Jan 27, 2022 11:00 AM VA-TOBACCO QUIT 15 YRS OR MORE [facility] [place] [facility] Sep 17, 2020 09:00 AM VA-TOBACCO FORMER USER [facility] [place] [facility] Sep 17, 2020 09:00 AM VA-TOBACCO QUIT 15 YRS OR MORE [facility] [place] [facility] Jun 04, 2019 02:57 PM VA-TOBACCO NEVER USED [facility] [place] [facility] Mar 14, 2018 11:23 AM VA-TOBACCO FORMER USER [facility] [place] [facility] Mar 14, 2018 11:23 AM VA-TOBACCO QUIT 15 YRS OR MORE [facility] Apr 04, 2017 12:30 PM QUIT TOBACCO USE > 7 [facility]ARS AGO [facility] Apr 05, 2016 01:02 PM QUIT TOBACCO USE > 7 YEARS AGO quit in 1984 [facility] Encounter Notes: All associated encounter notes This section contains the clinical notes associated to the Encounter. Date/Time Encounter Note(s) Provider Source Oct 24, 2023 10:51 AM GERIATRIC MEDICINE NOTE: LOCAL TITLE: GEROFIT VCM/VVC/VOD TELEHEALTH SUPERVISED EXERCISE STANDARD TITLE: GERIATRIC MEDICINE NOTE DATE OF NOTE: OCT 24, 2023@10:51 ENTRY DATE: OCT 24, 2023@10:51:10 AUTHOR: DOUG ONEILL COSIGNER: URGENCY: STATUS: COMPLETED GEROFIT VVC/VCM/VOD Telehealth Supervised Exercise NOTE Provided informed consent to receive treatment via Telehealth., mailed and has been made verbally aware of Telehealth Group [place] practices. [place] Location: address on record unless specified below. Emergency Contact: on record unless specified below. participated remotely in the Gerofit exercise program today through [place] Virtual Underground [employer] Section Foreman. Activities were focused on progression of their [...] whole health concerns. /johanny/ VIOLETTA FINK LICENSE COMMAND AND CONTROL Signed: 10/24/2023 10:57 DOUG ONEILL [facility]
--- OUTSIDE RECORDS SUMMARY | 2024-03-05 06:33 | XMS_ITS | Encounter Summary ---
Author Name [facility] [place] Organization [place] Address [address] [place] [address] Care Team Providers Care Wet End Helper Name Role Phone LUCAS STRATTON Primary Care Provider Unavail ble Insurance Providers: [...] PART B Sep 23, 2014 PART B [id number] HARMONY MCCALL JR PATIENT MEDICARE (WNR) MEDICARE (M) PART A July 25, 2007 PART A [id number] HARMONY MCCALL JR PATIENT MEDICARE (WNR) MEDICARE (M) PART B July 25, 2007 PART B [id number] AHRMONY MCCALL JR PATIENT MEDICARE (WNR) MEDICARE (M) PART A July 25, 2007 PART A [id number] HARMONY MCCALL JR PATIENT [facility] MEDICAL EXPENSE (OPT/PROF ) [facility] * Jan 24, 2015 [id number] 18 CAROLE MCCALL SPOUSE Selected Encounter This section includes the information on record at [place] for the Encounter. Date/Time Encounter Type Encounter Description Reason Provider Source Oct 26, 2023 10:00 AM UNLISTED PHYSCL MED/REHAB PX HEALTH/WELLBEING SRVS ICD-10-CM Z72.3 Lack of physical exercise TERRY COATES [facility] Encounter Template Text not used by [place] Assessments - Encounter Diagnoses This section includes the primary and secondary diagnoses documented for the Encounter. Date/Time Primary/Secondary Diagnosis Diagnosis Name Provider Source Oct 26, 2023 10:44 AM PRIMARY Lack of physical exercise TERRY COATES [place] [facility] [place] [facility] Plan of Treatment: Future Appointments (+ 6 months) and Future Tests (+/- 45 days) The Plan of Treatment section includes future care activities for the patient from all [place] treatmentfacilities. This section includes future appointments and future orders which are active, pending or scheduled. Future Appointments This section includes appointments that were scheduled to occur 6 months from the date of the Encounter, up to a maximum of 20 appointments. The data comes from all [place] treatment facilities. Appointment Date/Time Appointment Type Appointme nt Facility Name Nov 01, 2023 11:00 AM AMBULATORY - [...] [facility] [place] [facility] Dec 06, 2023 11:00 AM AMBULATORY - NONE [place] Dec 11, 2023 10:00 AM AMBULATORY - NONE [facility] [place] [facility] Dec 11, 2023 01:00 PM AMBULATORY - MEDICINE [facility] [place] [facility] Dec 13, 2023 11:00 AM AMBULATORY - NONE [place] Dec 20, 2023 11:00 AM AMBULATORY - NONE [place] Dec 25, 2023 10:00 AM AMBULATORY - NONE [facility] [place] [facility] Dec 27, 2023 11:00 AM AMBULATORY - NONE [place] Jan 03, 2024 11:00 AM AMBULATORY - NONE [place] Jan 08, 2024 10:00 AM AMBULATORY - NONE [facility] [place] [facility] Jan 10, 2024 11:00 AM AMBULATORY - NONE [place] Jan 17, 2024 11:00 AM AMBULATORY - NONE [place] Jan 21, 2024 11:00 AM AMBULATORY - MEDICINE [facility] [place] [facility] Jan 22, 2024 11:00 AM AM[facility]ORY - [place]IC[place] [facility] [place] [facility] Jan 22, 2024 11:00 AM AMBULATORY - NONE [facility] [place] [facility] Social History: Smoking Status (Most current) and Tobacco Use (All prior to encounter date) This section includes the most current, and the historical, smoking and tobacco- related health factors from the [place] facility where the Encounter took place. Current Smoking Status This section includes the most current smoking, or tobacco-related health factor, from the [place] facility where the Encounter took place. Date/Time Current Smoking Status Comment Facil ity Jan 26, 2023 01:30 PM VA-TOBACCO QUIT 15 YRS OR MORE [place] [facility] [place] [facility] Tobacco Use History This section includes a history of the smoking, or tobacco-related health factors, that were collected on or before the date of the Encounter. The data comes from the [place] facility where the Encounter took place. Date/Time [...] AM VA-TOBACCO QUIT 15 YRS OR MORE [facility] Apr 04, 2017 12:30 PM QUIT TOBACCO USE > 7 YEARS AGO [facility] Apr 05, 2016 01:02 PM QUIT TOBACCO USE > 7 YEARS AGO quit in 1984 [facility] Encounter Notes: All associated encounter notes This section contains the clinical notes associated to the Encounter. Date/Time Encounter Note(s) Provider Source Oct 26, 2023 10:56 AM INTEGRATIVE HEALTH NOTE: LOCAL TITLE: WHOLE HEALTH PERSONAL HEALTH INVENTORY STANDARD TITLE: INTEGRATIVE HEALTH NOTE DATE OF NOTE: OCT 26, 2023@10:56 ENTRY DATE: OCT 26, 2023@10:56:40 AUTHOR: TERRY COATES: URGENCY: STATUS: COMPLETED Q33. What really matters most to you in your life? 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 Q34. What activities would you like (or need) to do, that you are currently having difficulties with? I do not have any truly needed activies that I can not do. Q35. What are you trying to be healthy for? Family events and travel to see the [place] and the world. Q36. Please rate yourself on a scale of 1 (low) to 5 (high) where you are now and where you would like to be: Q37. Working on the body: How physically active are you? Where are you now? 3 - moderate Where would you like to be? 4 Q38. Recharge: How well do you sleep, relax and recover? Where are you now? 4 Where would you like to be? 5 - High Q39. Food and Drink: Do you consider your eating habits healthy? Where are you now? 4 Where would you like to be? 4 Q40. Power of the mind: How well do you maintain a positive outlook, healthy relationships and caring for your mental health? Where are you now? 4 Where would you like to be? 5 - High Q41. What are your Gerofit exercise goal(s) in the next 3 months? Make the goal specific, measurable, achievable, relevant, time-based. Just make the classes every time. If I maintain the programs, I am fine. When I schedule out and lose the routine I slow down and it takes more effort to start again. Q45. Whole Health Coaching is designed to assist Veterans who may be struggling with motivation to make changes: such as, exercise, diet, mindfulness, personal development etc. Coaching will include brief individual and/or group meetings to help support the Criders with reaching their desired goals. Are you interested in receiving Whole Health Coaching outside of the GeroFit program? Yes /johanny/ TERRY COATES PT, DPT PHYSICAL THERAPIST Signed: 10/26/2023 11:00 TERRY COATES [place] [facility] Oct 26, 2023 10:38 AM GERIATRIC MEDICINE NOTE: LOCAL TITLE: GEROFIT REMOTE PHYSICAL FUNCTIONAL TESTING NOTE STANDARD TITLE: GERIATRIC MEDICINE NOTE DATE OF NOTE: OCT 26, 2023@10:38 ENTRY DATE: OCT 26, 2023@10:38:45 AUTHOR: TERRY COATES COSIGNER: URGENCY: STATUS: COMPLETED GEROFIT REMOTE PHYSICAL FUNCTIONAL TESTING NOTE Has ADDENDA GEROFIT REMOTE PHYSICAL FUNCTIONAL TESTING We like to keep the patient's primary care provider involved with veterans participation in the Gerofit Exercise Program. HARMONY MCCALL JR completed their Annual physical function test for Gerofit. These tasks measure strength and endurance by assessing different components of physical activity done throughout the day. HARMONY York JR ranked as follows: Test What it measures Percentile Ranking Arm curl Upper body strength 95 Above normal Chair stands Leg strength 40 Normal range 2-minute step Endurance 15 Below average In general, these tasks indicate Maintenance from previous tests. The Gerofit team will work with this patient to improve veterans current functional status developing a personally tailored exercise prescription that addresses their underlying functional status and integrates evidenced based components of physical activity programming to achieve optimal fitness and functioning. They will be encouraged to attend remotely via telehealth technology 3 times per week as schedule permits. PROVIDER: Is this patients health status appropriate to participate in the Gerofit exercise program this coming year? After signing this note, please addend YES or NO. /evie COATES PT, DPT PHYSICAL THERAPIST Signed: 10/26/2023 10:44 Receipt Acknowledged By: 10/29/2023 09:27 /johanny/ Lucas Stratton DNP, LOCOMOTIVE MECHANIC APPRENTICE-BC, CNL Primary Care Nurse Practitioner 10/29/2023 ADDENDUM STATUS: COMPLETED yes /es/ Lucas Stratton DNP, LOCOMOTIVE MECHANIC APPRENTICE-BC, CNL Primary Care Nurse Practitioner Signed: 10/29/2023 09:27 TERRY COATES [facility]
--- OUTSIDE RECORDS SUMMARY | 2024-03-05 06:33 | XMS_ITS | Encounter Summary ---
Author Name Department of [place] Organization [place] Address [address] [place] [address] Care Team Providers Care Cloth Finishing Range Operator Chief Name Role Phone LEN MENDOZA Primary Care [...] PART B Sep 23, 2014 PART B [id number] HARMONY MCCALL JR PATIENT MEDICARE (WNR) MEDICARE (M) PART A July 25, 2007 PART A [id number] HARMONY MCCALL JR PATIENT MEDICARE (WNR) MEDICARE (M) PART B July 25, 2007 PART B [id number] [phone] HARMONY MCCALL JR PATIENT MEDICARE (WNR) MEDICARE (M) PART A July 25, 2007 PART A [id number] HARMONY MCCALL JR PATIENT PENDING SALE TO [facility] MEDICAL EXPENSE (OPT/PROF ) [facility] * Jan 24, 2015 [id number] 18 CAROLE MCCALL SPOUSE Selected Encounter This section includes the information on record at [place] for the Encounter. Date/Time Encounter Type Encounter Description Reason Pro vider Source Oct 26, 2023 02:30 PM Outpatient Encounter HEALTH/WELLBEING [facility] IHE Encounter Template Text not used by [place] Plan of Treatment: Future Appointments (+ 6 [...] AMBULATORY - NONE [facility] [place] [facility] Dec 06, 2023 11:00 AM AMBULATORY - NONE [place] Dec 11, 2023 10:00 AM AMBULATORY - NONE [facility] [place] [facility] Dec 11, 2023 01:00 PM AMBULATORY - MEDICINE [facility] [place] [facility] Dec 13, 2023 11:00 AM AMBULATORY - NONE [place] Dec 20, 2023 11:00 AM AMBULATORY - NONE [place] Dec 25, 2023 10:00 AM AMBULATORY - NONE [facility] [place] [facility] Dec 27, 2023 11:00 AM AMBULATORY - NONE [place] Jan 03, 2024 11:00 AM AMBULATORY - NONE [place] Jan 08, 2024 10:00 AM AMBULATORY - NONE [facility] [place] [facility] Jan 10, 2024 11:00 AM AMBULATORY - NONE [place] Jan 17, 2024 11:00 AM AMBULATORY - NONE [place] Jan 21, 2024 11:00 AM AMBULATORY - MEDICINE [facility] [place] [facility] Jan 22, 2024 11:00 AM [facility]ORY - [facility] Jan 22, 2024 11:00 AM AMBULATORY - NONE [facility] [place] [facility] Social History: Smoking Status (Most current) and [...] YRS OR MORE [facility] [place] [facility] Tobacco Use History This section includes a history of the smoking, or tobacco-related health factors, that were collected on or before the date of the Encounter. The data comes from the [place] facility where the Encounter took place. Date/Time Smoking Status/Tobacco Use Comment F acility Jan 26, 2023 01:30 PM VA-TOBACCO QUIT 15 YRS OR MORE [facility] [place] [facility] Jan 27, 2022 11:00 AM VA-TOBACCO FORMER USER [facility] [place] [facility] Jan 27, 2022 11:00 AM VA-TOBACCO QUIT 15 YRS OR MORE [facility] [place] [facility] Sep 17, 2020 09:00 AM VA-TOBACCO FORMER USER [facility] [place] [facility] Sep 17, 2020 09:00 AM VA-TOBACCO QUIT 15 YRS OR MORE [facility] [place] [facility] Jun 04, 2019 02:57 PM VA-TOBACCO NEVER USED [facility] [place] [facility] Mar 14, 2018 11:23 AM VA-TOBACCO FORMER USER [facility] [place] [facility] Mar 14, 2018 11:23 AM VA-TOBACCO QUIT 15 YRS OR MORE [facility] [place] [facility] Apr 04, 2017 12:30 PM QUIT TOBACCO USE > 7 YEARS AGO [facility] [place] [facility] Apr 05, 2016 01:02 PM QUIT TOBACCO USE > 7 YEARS AGO quit in 1984 [facility] [place] [facility] Encounter Notes: All associated encounter notes This section contains the clinical notes associated to the Encounter. Date/Time Encounter Note(s) Provider Source Oct 26, 2023 02:30 PM LETTERS: LOCAL TITLE: PATIENT LETTER (B) STANDARD TITLE: LETTERS DATE OF NOTE: OCT 26, 2023@14:30 ENTRY DATE: OCT 26, 2023@14:30:44 AUTHOR: JOSI TALBERT EXP COSIGNER: URGENCY: STATUS: COMPLETED [facility] Toll Free Number [facility] scheduling can be reached at ext. [phone] [facility]- ext. [phone] [facility]- ext. [phone] [facility]- ext. [phone] OCT 26, 2023 HARMONY MCCALL [address] [place] [id number] Dear HARMONY MCCALL JR We would like to assist you in scheduling a Whole Health Coaching COnsult appointment at the ID. We have been unable to reach you by phone. To schedule this appointment please call us at [phone]. [phone]. Our booking appointment hours are Sunday through Sunday from 8:00 am to 4:00 pm. Please leave a message if you receive voicemail and let us know a good time and telephone number where we can reach you. If we dont hear back from you within 14 days from the date of this letter we will discontinue the request. If you have already scheduled this appointment, please disregard this letter. Your health is important to us. Sincerely, [facility] [address] [facility] [address] [place] [address] [place] [address] [facility] [address] [facility] [address] [place] [address] [place] [address] ext. [phone] [facility] [address] [facility] [address] [place] [address] [place] [address] ext. [phone] [address] ext. [phone] JOSI TALBERT [facility]
--- OUTSIDE RECORDS SUMMARY | 2024-03-05 06:33 | XMS_ITS ---
Author Name [facility] [place] Address [address] [place] [id number] Care Team Providers Care Deputy Sheriff Lieutenant Name Role Phone LEN MENDOZA Primary Care [...] PART B Sep 23, 2014 PART B [id number] [phone] HARMONY MCCALL JR PATIENT MEDICARE (WNR) MEDICARE (M) PART A July 25, 2007 PART A [id number] HARMONY MCCALL JR PATIENT MEDICARE (WNR) MEDICARE (M) PART B July 25, 2007 PART B [id number] [phone] HARMONY MCCALL JR PATIENT MEDICARE (WNR) MEDICARE (M) PART A July 25, 2007 PART A [id number] HARMONY MCCALL JR PATIENT ON LICENSE OF [facility] MEDICAL EXPENSE (OPT/PROF ) [facility] * Jan 24, 2015 [id number] 18 CAROLE MCCALL SPOUSE Selected Encounter This section includes the information on record at [place] for the Encounter. Date/Time Encounter Type Encounter Description Reason Provider Source Oct 30, 2023 12:42 PM COLLJ & INTERPJ DATA EA 30 D SLEEP MEDICINE ICD-10-CM G47.[address], [address] CURTIS ARVIZU IHE Encounter Template Text not used by [place] Assessments - Encounter Diagnoses This section includes the primary and secondary diagnoses documented for the Encounter. Date/Time Primary/Secondary Diagnosis Diagnosis Name Provider Source Oct 30, 2023 12:43 PM PRIMARY Sleep apnea, unspecified CURTIS PUCKETT [place] [facility] [place] [facility] Plan of Treatment: Future Appointments [...] - NONE [facility] [place] [facility] Dec 06, 2023 11:00 AM AMBULATORY - NONE [place] Dec 11, 2023 10:00 AM AMBULATORY - NONE [facility] [place] [facility] Dec 11, 2023 01:00 PM AMBULATORY - MEDICINE [facility] [place] [facility] Dec 13, 2023 11:00 AM AMBULATORY - NONE [place] Dec 20, 2023 11:00 AM AMBULATORY - NONE [place] Dec 25, 2023 10:00 AM AMBULATORY - NONE [facility] [place] [facility] Dec 27, 2023 11:00 AM AMBULATORY - NONE [place] Jan 03, 2024 11:00 AM AMBULATORY - NONE [place] Jan 08, 2024 10:00 AM AMBULATORY - NONE [facility] [place] [facility] Jan 10, 2024 11:00 AM AMBULATORY - NONE [place] Jan 17, 2024 11:00 AM AMBULATORY - NONE [place] Jan 21, 2024 11:00 AM AMBULATORY - MEDICINE [facility] [place] [facility] Jan 22, 2024 11:00 AM AM[place]ORY - [place]IC[place] [facility] Jan 22, 2024 11:00 AM AMBULATORY - NONE [facility] [place] [facility] Social History: Smoking Status (Most [...] FORMER USER [facility] [place] [facility] Tobacco Use History This section includes a history of the smoking, or tobacco-related health factors, that were collected on or before the date of the Encounter. The data comes from the [place] facility where the Encounter took place. Date/Time Smoking Status/Tobacco Use Comment F acility Jan 26, 2023 01:30 PM VA-TOBACCO QUIT 15 YRS OR MORE [facility] [place] [facility] Jan 27, 2022 11:00 AM VA-TOBACCO FORMER USER [facility] [place] [facility] Jan 27, 2022 11:00 AM VA-TOBACCO QUIT 15 YRS OR MORE [facility] [place] [facility] Sep 17, 2020 09:00 AM VA-TOBACCO FORMER USER [facility] [place] [facility] Sep 17, 2020 09:00 AM VA-TOBACCO QUIT 15 YRS OR MORE [facility] [place] [facility] Jun 04, 2019 02:57 PM VA-TOBACCO NEVER USED [facility] [place] [facility] Mar 14, 2018 11:23 AM VA-TOBACCO FORMER USER [facility] [place] [facility] Mar 14, 2018 11:23 AM VA-TOBACCO QUIT 15 YRS OR MORE [place] [facility] Apr 04, 2017 12:30 PM QUIT TOBACCO USE > 7 YEARS AGO [place] [facility] Apr 05, 2016 01:02 PM QUIT TOBACCO USE > 7 YEARS AGO quit in [facility] Encounter Notes: All associated encounter notes This section contains the clinical notes associated to the Encounter. Date/Time Encounter Note(s) Provider Source Oct 30, 2023 12:42 PM RESPIRATORY THERAP Y NOTE: LOCAL TITLE: RESPIRATORY THERAPY NOTE(BLANK) STANDARD TITLE: RESPIRATORY THERAPY NOTE DATE OF NOTE: OCT 30, 2023@12:42 ENTRY DATE: OCT 30, 2023@12:42:38 AUTHOR: CURTIS PUCKETT EXP COSIGNER: URGENCY: STATUS: COMPLETED diagnosed with sleep apnea had Airview data download 1 week after set up appointment. AirView Compliance Report Usage 10/23/2023 - 10/29/2023 Usage days 7/7 days (100%) >= 4 hours 1 days (14%) < 4 hours 6 days (86%) Usage hours 14 hours 35 minutes Average usage (total days) 2 hours 5 minutes Average usage (days used) 2 hours 5 minutes Median usage (days used) 1 hours 40 minutes Total used hours (value since last reset - 10/29/2023) 14 hours AirSense 11 AutoSet Serial number [id number] Mode AutoSet Min Pressure 5 cmH2O Max Pressure 20 cmH2O EPR Fulltime EPR level 3 Response Soft Therapy Pressure - cmH2O Median: 6.7 95th percentile: 8.4 Maximum: 9.0 Leaks - L/min Median: 0.9 95th percentile: 2.2 Maximum: 9.1 Events per hour AI: 0.3 HI: 0.2 AHI: 0.5 Apnea Index Central: 0.3 Obstructive: 0.1 Unknown: 0.0 RERA Index 0.0 Brandyn-Lind respiration (average duration per night) 0 minutes (0%) /johanny/ CURTIS PUCKETT RESPIRATORY THERAPIST Signed: 10/30/2023 12:43 CURTIS PUCKETT [facility]
--- OUTSIDE RECORDS SUMMARY | 2024-03-05 06:33 | XMS_ITS | Encounter Summary ---
Author Name [facility] [place] Organization [place] Address [address] [place] [address] Care Team Providers Care Casing Soaker Name Role Phone LEN MENDOZA Primary Care Provider [facility] Insurance Providers: All historical and current Section Date Range: From patient's date of to the date document was created. This section includes the names of all active insurance providers for the patient. Insurance Provider Type of Coverage Plan Name Start of Policy Coverage End of Policy Coverage Group Number Member ID Insurance Provider's Telephone Number Policy Ybarra's Name Patient's Relationship to Policy Ybarar MEDICARE (WNR) MEDICARE (M) PART B Sep 23, 2014 PART B [id number] HARMONY MCCALL JR PATIENT MEDICARE (WNR) MEDICARE (M) PART A July 25, 2007 PART A [id number] HARMONY MCCALL JR PATIENT MEDICARE (WNR) MEDICARE (M) PART B July 25, 2007 PART B [id number] [phone] HARMONY MCCALL JR PATIENT MEDICARE (WNR) MEDICARE (M) PART A July 25, 2007 PART A [id number] HARMONY MCCALL JR PATIENT [facility] MEDICAL EXPENSE (OPT/PROF ) [facility] * Jan 24, 2015 [id number] 18 CAROLE MCCALL SPOUSE Selected Encounter This section includes the information on record at [place] for the Encounter. Date/Time Encounter Type Encounter Description Reason Pro vider Source Oct 26, 2023 01:24 PM Outpatient Encounter TELEPHONE/ANCILLARY IHE Encounter Template Text not used by [place] Plan of Treatment: Future Appointments (+ 6 [...] AMBULATORY - NONE [facility] [place] [facility] Dec 06, 2023 11:00 AM AMBULATORY - NONE [place] Dec 11, 2023 10:00 AM AMBULATORY - NONE [facility] [place] [facility] Dec 11, 2023 01:00 PM AMBULATORY - MEDICINE [place] [facility] [place] [facility] Dec 13, 2023 11:00 AM AMBULATORY - NONE [place] Dec 20, 2023 11:00 AM AMBULATORY - NONE [place] Dec 25, 2023 10:00 AM AMBULATORY - NONE [facility] [place] [facility] Dec 27, 2023 11:00 AM AMBULATORY - NONE [place] Jan 03, 2024 11:00 AM AMBULATORY - NONE [place] Jan 08, 2024 10:00 AM AMBULATORY - NONE [facility] [place] [facility] Jan 10, 2024 11:00 AM AMBULATORY - NONE [place] Jan 17, 2024 11:00 AM AMBULATORY - NONE [place] Jan 21, 2024 11:00 AM AMBULATORY - MEDICINE [place] [facility] [place] [facility] Jan 22, 2024 11:00 AM AM[place]ULATORY - [place]IC[place] [facility] Jan 22, 2024 11:00 AM AMBULATORY - NONE [place] [facility] [place] [facility] Social History: Smoking Status (Most [...] PM VA-TOBACCO QUIT 15 YRS OR MORE [place] [facility] Tobacco Use History This section includes a history of the smoking, or tobacco-related health factors, that were collected on or before the date of the Encounter. The data comes from the [place] facility where the Encounter took place. Date/Time Smoking Status/Tobacco Use Comment F acility Jan 26, 2023 01:30 PM VA-TOBACCO QUIT 15 YRS OR MORE [place] [facility] [place] [facility] Jan 27, 2022 11:00 AM VA-TOBACCO FORMER USER [place] [facility] [place] [facility] Jan 27, 2022 11:00 AM VA-TOBACCO QUIT 15 YRS OR MORE [place] [facility] [place] [facility] Sep 17, 2020 09:00 AM VA-TOBACCO FORMER USER [place] [facility] [place] [facility] Sep 17, 2020 09:00 AM VA-TOBACCO QUIT 15 YRS OR MORE [place] [facility] [place] [facility] Jun 04, 2019 02:57 PM VA-TOBACCO NEVER USED [facility] [place] [facility] Mar 14, 2018 11:23 AM VA-TOBACCO FORMER USER [place] [facility] [place] [facility] Mar 14, 2018 11:23 AM VA-TOBACCO QUIT 15 YRS OR MORE [place] [facility] [place] [facility] Apr 04, 2017 12:30 PM QUIT TOBACCO USE > 7 YEARS AGO [place] [facility] [place] [facility] Apr 05, 2016 01:02 PM QUIT TOBACCO USE > 7 YEARS AGO quit in 1984 [place] [facility] [place] [facility]
--- OUTSIDE RECORDS SUMMARY | 2024-03-05 06:33 | XMS_ITS | Encounter Summary ---
Author Name [place] Address [address] [place] [address] Care Team Providers Care Electrical Technology Instructor Name Role Phone LEN MENDOZA Primary Care [...] PART B Sep 23, 2014 PART B [id number] HARMONY MCCALL JR PATIENT MEDICARE (WNR) MEDICARE (M) PART A July 25, 2007 PART A [id number] HARMONY MCCALL JR PATIENT MEDICARE (WNR) MEDICARE (M) PART B July 25, 2007 PART B [id number] HARMONY MCCALL JR PATIENT MEDICARE (WNR) MEDICARE (M) PART A July 25, 2007 PART A [id number] [phone] [id number] HARMONY MCCALL JR PATIENT [facility] MEDICAL EXPENSE (OPT/PROF ) [facility] * Jan 24, 2015 [id number] 18 CAROLE MCCALL SPOUSE Selected Encounter This section includes the information on record at [place] for the Encounter. Date/Time Encounter Type Encounter Description Reason Provider Source Oct 26, 2023 10:32 AM EXERCISE CLASS HEALTH/WELLBEING SRVS ICD-10-CM Z72.3 Lack of physical exercise JANIE LAZCANO [facility] Encounter Template Text not used by [place] Assessments - Encounter Diagnoses This section includes the primary and secondary diagnoses documented for the Encounter. Date/Time Primary/Secondary Diagnosis Diagnosis Name Provider Source Oct 26, 2023 11:01 AM PRIMARY Lack of physical exercise JANIE LAZCANO [place] [facility] [place] [facility] Plan of [...] [place] [facility] [place] [facility] Dec 06, 2023 11:00 AM AMBULATORY - NONE [place] Dec 11, 2023 10:00 AM AMBULATORY - NONE [place] [facility] [place] [facility] Dec 11, 2023 01:00 PM AMBULATORY - MEDICINE [place] [facility] [place] [facility] Dec 13, 2023 11:00 AM AMBULATORY - NONE [place] Dec 20, 2023 11:00 AM AMBULATORY - NONE [place] Dec 25, 2023 10:00 AM AMBULATORY - NONE [place] [facility] [place] [facility] Dec 27, 2023 11:00 AM AMBULATORY - NONE [place] Jan 03, 2024 11:00 AM AMBULATORY - NONE [place] Jan 08, 2024 10:00 AM AMBULATORY - NONE [place] [facility] [place] [facility] Jan 10, 2024 11:00 AM AMBULATORY - NONE [place] Jan 17, 2024 11:00 AM AMBULATORY - NONE [place] Jan 21, 2024 11:00 AM AMBULATORY - MEDICINE [place] [facility] [place] [facility] Jan 22, 2024 11:00 AM AMBULATORY - [place]IC[place] [facility] Jan 22, 2024 11:00 AM AMBULATORY - NONE [place] [facility] [place] [facility] Social History: Smoking Status (Most current) [...] AM VA-TOBACCO QUIT 15 YRS OR MORE [facility] Apr 04, 2017 12:30 PM QUIT TOBACCO USE > 7 YEARS AGO [facility] Apr 05, 2016 01:02 PM QUIT TOBACCO USE > 7 YEARS AGO quit in 1984 [facility] Encounter Notes: All associated encounter notes This section contains the clinical notes associated to the Encounter. Date/Time Encounter Note(s) Provider Source Oct 26, 2023 10:59 AM GERIATRIC MEDICINE NOTE: LOCAL TITLE: GEROFIT VCM/VVC/VOD TELEHEALTH SUPERVISED EXERCISE STANDARD TITLE: GERIATRIC MEDICINE NOTE DATE OF NOTE: OCT 26, 2023@10:59 ENTRY DATE: OCT 26, 2023@10:59:20 AUTHOR: JANIE LAZCANO EXP COSIGNER: URGENCY: STATUS: COMPLETED Provided informed consent to receive treatment via Telehealth., [place] mailed and has been made verbally aware of [facility] [place] practices. 's Location: address on record unless specified below. Emergency Contact: on record unless specified below. participated remotely in the [facility] exercise program today through [place] [employer]. Activities were focused on progression of their individual exercise prescription (cardiorespiratory fitness training, strength training, etc.) and group-based exercise sessions to include, but not limited to: flexibility training, balance training & functional circuit training. Exercise participation was supervised [facility] and any questions/concerns were addressed with the patient. Modifications were made to programming as appropriate to suit Veterans individual needs, preferences, and whole health concerns. /es/ Janie Lazcano PT,DPT PHYSICAL THERAPIST Signed: 10/26/2023 11:03 JANIE LAZCANO [facility]
--- OUTSIDE RECORDS SUMMARY | 2024-03-05 06:33 | XMS_ITS | Encounter Summary ---
Author Name Department of [place] Organization [place] Address [address] [place] [id number] Care Team Providers Care Media Executive Name Role Phone LEN MENDOZA Primary Care [...] PART B Sep 23, 2014 PART B [id number] HARMONY MCCALL JR PATIENT MEDICARE (WNR) MEDICARE (M) PART A July 25, 2007 PART A [id number] [phone] HARMONY MCCALL JR PATIENT MEDICARE (WNR) MEDICARE (M) PART B July 25, 2007 PART B [id number] HARMONY MCCALL JR PATIENT MEDICARE (WNR) MEDICARE (M) PART A July 25, 2007 PART A [id number] HARMONY MCCALL JR PATIENT [facility] MEDICAL EXPENSE (OPT/PROF ) [facility] * Jan 24, 2015 [id number] 18 CAROLE MCCALL SPOUSE Selected Encounter This section includes the information on record at [place] for the Encounter. Date/Time Encounter Type Encounter Description Reason Provider Source Oct 29, 2023 08:00 AM EXERCISE CLASS HEALTH/WELLBEING SRVS ICD-10-CM Z72.3 Lack of physical exercise JANIE LAZCANO E Encounter Template Text not used by [place] Assessments - Encounter Diagnoses This section includes the primary and secondary diagnoses documented for the Encounter. Date/Time Primary/Secondary Diagnosis Diagnosis Name Provider Source Oct 29, 2023 10:32 AM PRIMARY Lack of physical exercise DAMON ONEILL [place] [facility] [place] [facility] Plan of Treatment: Future Appointments [...] AMBULATORY - NONE [place] [facility] [place] [facility] Dec 06, 2023 11:00 AM AMBULATORY - NONE [place] Dec 11, 2023 10:00 AM AMBULATORY - NONE [place] [facility] [place] [facility] Dec 11, 2023 01:00 PM AMBULATORY - MEDICINE [place] [facility] [place] [facility] Dec 13, 2023 11:00 AM AMBULATORY - NONE [place] Dec 20, 2023 11:00 AM AMBULATORY - NONE [place] Dec 25, 2023 10:00 AM AMBULATORY - NONE [place] [facility] [place] [facility] Dec 27, 2023 11:00 AM AMBULATORY - NONE [place] Jan 03, 2024 11:00 AM AMBULATORY - NONE [place] Jan 08, 2024 10:00 AM AMBULATORY - NONE [place] [facility] [place] [facility] Jan 10, 2024 11:00 AM AMBULATORY - NONE [place] Jan 17, 2024 11:00 AM AMBULATORY - NONE [place] Jan 21, 2024 11:00 AM AMBULATORY - MEDICINE [place] [facility] [place] [facility] Jan 22, 2024 11:00 AM AM[place]ULATORY - [place]IC[place] [facility] Jan 22, 2024 11:00 AM AMBULATORY - NONE [place] [facility] [place] [facility] Social History: Smoking Status (Most [...] YRS OR MORE [place] [facility] [place] [facility] Tobacco Use History This section includes a history of the smoking, or tobacco-related health factors, that were collected on or before the date of the Encounter. The data comes from the [place] facility where the Encounter took place. Date/Time Smoking Status/Tobacco Use Comment F acility Jan 26, 2023 01:30 PM VA-TOBACCO QUIT 15 YRS OR MORE [place] [facility] [facility] Jan 27, 2022 11:00 AM VA-TOBACCO FORMER USER [facility] [facility] Jan 27, 2022 11:00 AM VA-TOBACCO QUIT 15 YRS OR MORE [place] [facility] [place] [facility] Sep 17, 2020 09:00 AM VA-TOBACCO FORMER USER [place] [facility] [place] [facility] Sep 17, 2020 09:00 AM VA-TOBACCO QUIT 15 YRS OR MORE [facility] [place] [facility] Jun 04, 2019 02:57 PM VA-TOBACCO NEVER USED [place] [facility] [place] [facility] Mar 14, 2018 11:23 AM VA-TOBACCO FORMER USER [facility] [place] [facility] Mar 14, 2018 11:23 AM VA-TOBACCO QUIT 15 YRS OR MORE [facility] Apr 04, 2017 12:30 PM QUIT TOBACCO USE > 7 YEARS AGO [facility] Apr 05, 2016 01:02 PM QUIT TOBACCO USE > 7 YEARS AGO quit in 1984 [facility] Encounter Notes: All associated encounter notes This section contains the clinical notes associated to the Encounter. Date/Time Encounter Note(s) Provider Source Oct 29, 2023 10:30 AM GERIATRIC MEDICINE NOTE: LOCAL TITLE: GEROFIT VCM/VVC/VOD TELEHEALTH SUPERVISED EXERCISE STANDARD TITLE: GERIATRIC MEDICINE NOTE DATE OF NOTE: OCT 29, 2023@10:30 ENTRY DATE: OCT 29, 2023@10:30:34 AUTHOR: DOUG ONEILL COSIGNER: URGENCY: STATUS: COMPLETED GEROFIT VVC/VCM/VOD Telehealth Supervised Exercise NOTE [place] Provided informed consent to receive treatment via Telehealth., [place] mailed and has been made verbally aware of [facility] [place] practices. 's Location: address on record unless specified below. Emergency Contact: on record unless specified below. participated remotely in the [facility] exercise program today through [place] [employer]. Activities were focused on progression of their [...] whole health concerns. /johanny/ VIOLETTA FINK LICENSE ASSET ACCOUNTANT Signed: 10/29/2023 10:42 DOUG ONEILL [facility]
--- OUTSIDE RECORDS SUMMARY | 2024-03-05 06:33 | XMS_ITS | Encounter Summary ---
Author Name [facility] [place] Address [address] [place] [id number] Care Team Providers Care Urban Anthropologist Name Role Phone LEN MENDOZA Primary Care [...] PART B Sep 23, 2014 PART B [id number] HARMONY MCCALL JR PATIENT MEDICARE (WNR) MEDICARE (M) PART A July 25, 2007 PART A [id number] HARMONY MCCALL JR PATIENT MEDICARE (WNR) MEDICARE (M) PART B July 25, 2007 PART B [id number] [phone] HARMONY MCCALL JR PATIENT MEDICARE (WNR) MEDICARE (M) PART A July 25, 2007 PART A [id number] HARMONY MCCALL JR PATIENT [facility] MEDICAL EXPENSE (OPT/PROF ) [facility] * Jan 24, 2015 [id number] [id number] 18 CAROLE MCCALL SPOUSE Selected Encounter This section includes the information on record at [place] for the Encounter. Date/Time Encounter Type Encounter Description Reason Provider Source Oct 25, 2023 11:00 AM HLTH BHV IVNTJ GRP EA ADDL WEIGHT MGMT & MOVE! PROG - GRP ICD-10-CM Z68.30 Body mass index [BMI] 30.0-30.9, adult GORDON PATHAK [facility] Encounter Template Text not used by [place] Assessments - Encounter Diagnoses This section includes the primary and secondary diagnoses documented for the Encounter. Date/Time Primary/Secondary Diagnosis Diagnosis Name Provider Source Oct 27, 2023 06:20 PM PRIMARY Body mass index [BMI] 30.0-30.9, adult GORDON PATHAK [place] Oct 27, 2023 06:20 PM SECONDARY Other obesity due to excess calories GORDON PATHAKFIELD Plan of Treatment: Future Appointments (+ 6 months) and Future Tests (+/- 45 days) The Plan of Treatment section includes future care activities for the patient from all [place] treatmentfacilities. This section includes future appointments and future orders which are active, pending or scheduled. Future Appointments This section includes appointments that were scheduled to occur 6 months from the date of the Encounter, up to a maximum of 20 appointments. The data comes from all [place] treatment facilities. Appointment Date/Time Appointment Type Appointme [...] AMBULATORY - NONE [facility] [place] [facility] Dec 06, 2023 11:00 AM AMBULATORY - NONE [place] Dec 11, 2023 10:00 AM AMBULATORY - NONE [facility] [place] [facility] Dec 11, 2023 01:00 PM AMBULATORY - MEDICINE [facility] [place] [facility] Dec 13, 2023 11:00 AM AMBULATORY - NONE [place] Dec 20, 2023 11:00 AM AMBULATORY - NONE [place] Dec 25, 2023 10:00 AM AMBULATORY - NONE [facility] [place] [facility] Dec 27, 2023 11:00 AM AMBULATORY - NONE [place] Jan 03, 2024 11:00 AM AMBULATORY - NONE [place] Jan 08, 2024 10:00 AM AMBULATORY - NONE [facility] [place] [facility] Jan 10, 2024 11:00 AM AMBULATORY - NONE [place] Jan 17, 2024 11:00 AM AMBULATORY - NONE [place] Jan 21, 2024 11:00 AM AM[facility]ULATORY [facility]ICINE [facility] [place] [facility] Jan 22, 2024 11:00 AM [place] [facility] Jan 22, 2024 11:00 AM AMBULATORY - NONE [facility] [place] [facility] Vital Signs: All taken on the encounter date This section contains inpatient and outpatient Vital Signs collected on the date of the Encounter. Date/Time Temperature Pulse Blood Pressure Respiratory Rate SP02 Pain Height Weight Body Mass Index Source Oct 25, 2023 11:41 AM 211 32 IELD Encounter Notes: All associated encounter notes This section contains the clinical notes associated to the Encounter. Date/Time Encounter Note(s) Provider Source Oct 27, 2023 06:12 PM MOVE NOTE: LOCAL TITLE: WEIGHT MANAGEMENT/MOVE! OUTPATIENT GROUP NOTE STANDARD TITLE: MOVE NOTE DATE OF NOTE: OCT 27, 2023@18:12 ENTRY DATE: OCT 27, 2023@18:12:20 AUTHOR: GORDON PATHAK COSIGNER: URGENCY: STATUS: COMPLETED participated in MOVE! Group Counseling via [facility] on October 25, 2023. The was provided with information on [facility] and has given verbal consent to use group VVC services for their healthcare. The copy of the Group Telehealth Agreement has been mailed to the [place]. The Veterans location/emergency contact number were confirmed. The Emergency Call Relay Center ([id number]) was available. The visit was locked for security and privacy. [place] identified with 2 identifiers: [ ] Full Name [ ] Address Veterans attended the [facility] MOVE! group session on this date. MOVE! is a program designed to provide education about weight management skills to overweight and obese Veterans. Group members combined to gain 3.0 pounds since their last attended group. Group members began today's discussion by sharing the importance of not bringing high caloric foods into the house. It is important to complete grocery shopping when feeling particularly motivated to lose weight and make healthy choices. Veterans wanted to talk about ways to relieve stress that do not involve eating. Group members shared that when they feel stressed they also feel helpless at times, angry, depressed, and scared. They shared that when they eat to deal with these emotions they never feel accomplished in reducing their anxiety or depression and often feel worse for having coped by overeating. When asked what strategies have worked successfully, Veterans shared talking to a friend or therapist, this group, going for a walk, engaging in a fun hobby and distracting oneself with entertainment. Veterans welcomed practicing such strategies this week. Group members shared their individual goals for the next week. The next [facility] MOVE! group meeting will be held on October @ 11:00am. 's reported weight was 211.0 lbs. and gained 1.5 pounds since last group attended. Dx: Obesity d/t Excess Calories Obesity E66.09 BMI 30.0-30.9 The session lasted for 1 hour in duration. /johanny/ GORDON PATHAK, Ph.D. CLINICAL PSYCHOLOGIST Signed: 10/27/2023 18:25 Receipt Acknowledged By: 10/28/2023 20:58 /johanny/ SANTIAGO KRAMER STAFF DIETITIAN GORDON PATHAK
--- OUTSIDE RECORDS SUMMARY | 2024-03-05 06:34 | XMS_ITS | Encounter Summary ---
Author Name [facility] [place] Address [address] [place] [id number] Care Team Providers Care Comb Winder Name Role Phone LEN MENDOZA Primary Care [...] PART B Sep 23, 2014 PART B [id number] [id number] [phone] HARMONY MCCALL JR PATIENT MEDICARE (WNR) MEDICARE (M) PART A July 25, 2007 PART A [id number] [phone] HARMONY MCCALL JR PATIENT MEDICARE (WNR) MEDICARE (M) PART B July 25, 2007 PART B [id number] HARMONY MCCALL JR PATIENT MEDICARE (WNR) MEDICARE (M) PART A July 25, 2007 PART A [id number] HARMONY MCCALL JR PATIENT [facility] MEDICAL EXPENSE (OPT/PROF ) [facility] * Jan 24, 2015 [id number] 18 CAROLE MCCALL SPOUSE Selected Encounter This section includes the information on record at [place] for the Encounter. Date/Time Encounter Type Encounter Description Reason Provider Source Oct 31, 2023 08:00 AM EXERCISE CLASS HEALTH/WELLBEING SRVS ICD-10-CM Z72.3 Lack of physical exercise DAMON ONEILL [facility] Encounter Template Text not used by [place] Assessments - Encounter Diagnoses This section includes the primary and secondary diagnoses documented for the Encounter. Date/Time Primary/Secondary Diagnosis Diagnosis Name Provider Source Oct 31, 2023 10:57 AM PRIMARY Lack of physical exercise DAMON ONEILL [place] [facility] [place] [facility] Plan of Treatment: Future Appointments (+ [...] AMBULATORY - NONE [facility] [place] [facility] Dec 06, 2023 11:00 AM AMBULATORY - NONE [place] Dec 11, 2023 10:00 AM AMBULATORY - NONE [facility] [place] [facility] Dec 11, 2023 01:00 PM AMBULATORY - MEDICINE [facility] [place] [facility] Dec 13, 2023 11:00 AM AMBULATORY - NONE [place] Dec 20, 2023 11:00 AM AMBULATORY - NONE [place] Dec 25, 2023 10:00 AM AMBULATORY - NONE [facility] [place] [facility] Dec 27, 2023 11:00 AM AMBULATORY - NONE [place] Jan 03, 2024 11:00 AM AMBULATORY - NONE [place] Jan 08, 2024 10:00 AM AMBULATORY - NONE [facility] [place] [facility] Jan 10, 2024 11:00 AM AMBULATORY - NONE [place] Jan 17, 2024 11:00 AM AMBULATORY - NONE [place] Jan 21, 2024 11:00 AM AMBULATORY [facility] MEDICINE [facility] [place] [facility] Jan 22, 2024 11:00 AM [facility] [place] [facility] Jan 22, 2024 11:00 AM AMBULATORY - NONE [facility] [place] [facility] Social History: Smoking Status (Most current) and Tobacco Use (All prior to encounter date) This section includes the most current, and the historical, smoking and tobacco- related health factors from the [place] facility where the Encounter took place. Current Smoking Status This section includes the most current smoking, or tobacco-related health factor, from the [place] facility where the Encounter took place. Date/Time Current Smoking Status Comment Facil ity Jan 26, 2023 01:30 PM VA-TOBACCO FORMER USER [facility] [place] [facility] Tobacco Use History This section includes a history of the smoking, or tobacco-related health factors, that were collected on or before the date of the Encounter. The data comes from the [place] facility where the Encounter took place. Date/Time Smoking Status/Tobacco Use Comment F acility Jan 26, 2023 01:30 PM VA-TOBACCO QUIT 15 YRS OR MORE [facility] [place] [facility] Jan 27, 2022 11:00 AM VA-TOBACCO FORMER USER [facility] [place] [facility] Jan 27, 2022 11:00 AM VA-TOBACCO QUIT 15 YRS OR MORE [facility] [place] [facility] Sep 17, 2020 09:00 AM VA-TOBACCO FORMER USER [facility] [place] [facility] Sep 17, 2020 09:00 AM VA-TOBACCO QUIT 15 YRS OR MORE [facility] [place] [facility] Jun 04, 2019 02:57 PM VA-TOBACCO NEVER USED [facility] [place] [facility] Mar 14, 2018 11:23 AM VA-TOBACCO FORMER USER [facility] [place] [facility] Mar 14, 2018 11:23 AM VA-TOBACCO QUIT 15 YRS OR MORE [facility] Apr 04, 2017 12:30 PM QUIT TOBACCO USE > 7 YEARS AGO [facility] Apr 05, 2016 01:02 PM QUIT TOBACCO USE > 7 YEARS AGO quit in 1984 [facility] Encounter Notes: All associated encounter notes This section contains the clinical notes associated to the Encounter. Date/Time Encounter Note(s) Provider Source Oct 31, 2023 10:56 AM GERIATRIC MEDICINE NOTE: LOCAL TITLE: GEROFIT VCM/VVC/VOD TELEHEALTH SUPERVISED EXERCISE STANDARD TITLE: GERIATRIC MEDICINE NOTE DATE OF NOTE: OCT 31, 2023@10:56 ENTRY DATE: OCT 31, 2023@10:57:03 AUTHOR: DOUG ONEILL COSIGNER: URGENCY: STATUS: COMPLETED GEROFIT VVC/VCM/VOD Telehealth Supervised Exercise NOTE [place] Provided informed consent to receive treatment via Telehealth., mailed and has been made verbally aware of Telehealth Group [place] practices. [place]'s Location: address on record unless specified below. Emergency Contact: on record unless specified below. participated remotely in the Gerofit exercise program today through [place] [employer]. Activities were focused on progression of their [...] whole health concerns. /johanny/ VIOLETTA FINK LICENSE [employer]ARD[employer] Signed: 10/31/2023 11:03 DOUG ONEILL [facility]
--- OUTSIDE RECORDS SUMMARY | 2024-03-05 06:35 | XMS_ITS | Encounter Summary ---
Author Name [facility] [place] Organization [place] Address [address] [place] [address] Care Team Providers Care Aerologist Name Role Phone LEN MENDOZA Primary Care [...] PART B Sep 23, 2014 PART B [id number] HARMONY MCCALL JR PATIENT MEDICARE (WNR) MEDICARE (M) PART A July 25, 2007 PART A [id number] [id number] [phone] HARMONY MCCALL JR PATIENT MEDICARE (WNR) MEDICARE (M) PART B July 25, 2007 PART B [id number] HARMONY MCCALL JR PATIENT MEDICARE (WNR) MEDICARE (M) PART A July 25, 2007 PART A [id number] HARMONY MCCALL JR PATIENT [facility] MEDICAL EXPENSE (OPT/PROF ) [facility] [place] * Jan 24, 2015 [id number] 18 CAROLE MCCALL SPOUSE Selected Encounter This section includes the information on record at [place] for the Encounter. Date/Time Encounter Type Encounter Description Reason Provider Source Nov 01, 2023 11:00 AM HLTH BHV IVNTJ GRP EA ADDL WEIGHT MGMT & MOVE! PROG - GRP ICD-10-CM Z68.30 Body mass index [BMI] 30.0-30.9, adult GORDON PATHAK [facility] Encounter Template Text not used by [place] Assessments - Encounter Diagnoses This section includes the primary and secondary diagnoses documented for the Encounter. Date/Time Primary/Secondary Diagnosis Diagnosis Name Provider Source Nov 02, 2023 05:28 PM PRIMARY Body mass index [BMI] 30.0-30.9, adult GORDON PATHAK [place] Nov 02, 2023 05:28 PM SECONDARY Other obesity due to excess calories GORDON PATHAK [place] Plan of Treatment: Future Appointments (+ 6 [...] Appointment Type Appointme nt Facility Name Nov 08, 2023 11:00 AM AMBULATORY - NONE [place] Nov 15, 2023 11:00 AM AMBULATORY - NONE [place] Nov 22, 2023 11:00 AM AMBULATORY - NONE [place] Nov 29, 2023 11:00 AM AMBULATORY - NONE [place] Dec 03, 2023 02:00 PM AMBULATORY - NONE [facility] [place] [facility] Dec 06, 2023 11:00 AM AMBULATORY - NONE [place] Dec 11, 2023 10:00 AM AMBULATORY - NONE [facility] [place] [facility] Dec 11, 2023 01:00 PM AMBULATORY - MEDICINE [facility] [place] [facility] Dec 13, 2023 11:00 AM AMBULATORY - NONE [place] Dec 20, 2023 11:00 AM AMBULATORY - NONE [place] Dec 25, 2023 10:00 AM AMBULATORY - NONE [facility] [place] [facility] Dec 27, 2023 11:00 AM AMBULATORY - NONE [place] Jan 03, 2024 11:00 AM AMBULATORY - NONE [place] Jan 08, 2024 10:00 AM AMBULATORY - NONE [facility] [place] [facility] Jan 10, 2024 11:00 AM AMBULATORY - NONE [place] Jan 17, 2024 11:00 AM AMBULATORY - NONE [place] Jan 21, 2024 11:00 AM AMBULATORY [facility] MEDICINE [facility] [place] [facility] Jan 22, 2024 11:00 AM AM[facility]ORY - [place]IC[place] [facility] Jan 22, 2024 11:00 AM AMBULATORY - NONE [facility] [place] [facility] Jan 24, 2024 11:00 AM AMBULATORY - NONE [place] Encounter Notes: All associated encounter notes This section contains the clinical notes associated to the Encounter. Date/Time Encounter Note(s) Provider Source Nov 02, 2023 05:20 PM MOVE NOTE: LOCAL TITLE: WEIGHT MANAGEMENT/MOVE! OUTPATIENT GROUP NOTE STANDARD TITLE: MOVE NOTE DATE OF NOTE: NOV 02, 2023@17:20 ENTRY DATE: NOV 02, 2023@17:20:51 AUTHOR: GORDON PATHAK COSIGNER: URGENCY: STATUS: COMPLETED [place] participated in MOVE! Group Counseling via [facility] on November 01, 2023. The [place] was provided with information on [facility] and has given verbal consent to use group VVC services for their healthcare. The copy of the Group Telehealth Agreement has been mailed to the [place]. The Veterans location/emergency contact number were confirmed. The Emergency Call Relay Center ([phone]) was available. The visit was locked for security and privacy. [place] identified with 2 identifiers: [ ] Full Name [ ] Address Veterans attended the [facility] MOVE! group session on this date. MOVE! is a program designed to provide education about weight management skills to overweight and obese Veterans. Group members combined to gain 2.6 pounds since their last attended group. Group members began today's discussion by asking how their weight has trended since the beginning of the calendar year. School Crossing Guard shared that the group has gained over 30 pounds during the past seven months. Group members attributed this weight gain to less physical activity and overeating at night. Veterans shared that they are certain that they would have gained considerably more weight during the same time span if not for this support group. Veterans shared some healthy alternatives for late night snacking including carrots and cauliflower. School Crossing Guard shared the importance of a paradigm shift specifically suggesting that any unnecessary food should be avoided. The group was able to redefine hunger to include hunger for fun, companionship, entertainment, relaxation, etc. and learned that food will not cure any of these human needs. One [place] shared that eating when depressed doesn't make them feel less depressed (rather they are more depressed and ashamed of their coping strategy). Group members had difficulty identifying activities that would be fun in which to participate and stated that they would work this week on performing some of them. Group members shared their individual goals for the next week. The next [facility] MOVE! group meeting will be held on October @ 11:00am. [place]'s reported weight was 209.7 lbs. and lost 1.3 pounds since last group attended. Dx: Obesity d/t Excess Calories Obesity E66.09 BMI 30.0-30.9 The session lasted for 1 hour in duration. /johanny/ GORDON PATHAK, Ph.D. CLINICAL PSYCHOLOGIST Signed: 11/02/2023 17:32 GORDON PATHAK
--- OUTSIDE RECORDS SUMMARY | 2024-03-05 06:35 | XMS_ITS | Encounter Summary ---
Author Name [facility] [place] Organization [facility] [place] Address [address] [place] [address] Care Team Providers Care Middle School Director Name Role Phone LEN MENDOZA Primary [...] PART B Sep 23, 2014 PART B [id number] HARMONY MCCALL JR PATIENT MEDICARE (WNR) MEDICARE (M) PART A July 25, 2007 PART A [id number] [phone] HARMONY MCCALL JR PATIENT MEDICARE (WNR) MEDICARE (M) PART B July 25, 2007 PART B [id number] [phone] HARMONY MCCALL JR PATIENT MEDICARE (WNR) MEDICARE (M) PART A July 25, 2007 PART A [id number] HARMONY MCCALL JR PATIENT [facility] MEDICAL EXPENSE (OPT/PROF ) [facility] [place] * Jan 24, 2015 [id number] 18 CAROLE MCCALL SPOUSE Selected Encounter This section includes the information on record at [place] for the Encounter. Date/Time Encounter Type Encounter Description Reason Provider Source Nov 02, 2023 10:34 AM EXERCISE CLASS HEALTH/WELLBEING SRVS ICD-10-CM Z72.3 Lack of physical exercise JAINE LAZCANO E Encounter Template Text not used by [place] Assessments - Encounter Diagnoses This section includes the primary and secondary diagnoses documented for the Encounter. Date/Time Primary/Secondary Diagnosis Diagnosis Name Provider Source Nov 02, 2023 10:40 AM PRIMARY Lack of physical exercise JANIE LAZCANO [place] [facility] [place] [facility] [place] [facility] Jan 22, 2024 11:00 AM AM[place]ORY - [place]IC[place] [facility] Jan 22, 2024 11:00 AM AMBULATORY - NONE [facility] [place] [facility] Jan 24, 2024 11:00 AM AMBULATORY - [...] AM VA-TOBACCO QUIT 15 YRS OR MORE [facility] Apr 04, 2017 12:30 PM QUIT TOBACCO USE > 7 YEARS AGO [facility] Apr 05, 2016 01:02 PM QUIT TOBACCO USE > 7 YEARS AGO quit in 1984 [facility] Encounter Notes: All associated encounter notes This section contains the clinical notes associated to the Encounter. Date/Time Encounter Note(s) Provider Source Nov 02, 2023 10:34 AM GERIATRIC MEDICINE NOTE: LOCAL TITLE: GEROFIT VCM/VVC/VOD TELEHEALTH SUPERVISED EXERCISE STANDARD TITLE: GERIATRIC MEDICINE NOTE DATE OF NOTE: NOV 02, 2023@10:34 ENTRY DATE: NOV 02, 2023@10:35:03 AUTHOR: JANIE LAZCANO EXP COSIGNER: URGENCY: STATUS: COMPLETED Provided informed consent to receive treatment via Telehealth., [place] mailed and has been made verbally aware of Telehealth Group [place] practices. 's Location: address on record unless specified below. Emergency Contact: on record unless specified below. participated remotely in the [facility] exercise program today through [place] [employer]. Activities were focused on progression of their individual exercise prescription (cardiorespiratory fitness training, strength training, etc.) and group-based exercise sessions to include, but not limited to: flexibility training, balance training & functional circuit training. Exercise participation was supervised remotely by [facility] staff and any questions/concerns were addressed with the patient. Modifications were made to programming as appropriate to suit Veterans individual needs, preferences, and whole health concerns. /es/ Janie Lazcano PT,DPT PHYSICAL THERAPIST Signed: 11/02/2023 10:44 JANIE LAZCANO [facility]
--- OUTSIDE RECORDS SUMMARY | 2024-03-05 06:36 | XMS_ITS | Encounter Summary ---
Author Name [facility] [place] Organization [place] Address [address] [place] [id number] Care Team Providers Care Windows Phone Developer Name Role Phone LEN MENDOZA Primary Care [...] PART B Sep 23, 2014 PART B [id number] [phone] 4 HARMONY MCCALL JR PATIENT MEDICARE (WNR) MEDICARE (M) PART A July 25, 2007 PART A [id number] HARMONY MCACLL JR PATIENT MEDICARE (WNR) MEDICARE (M) PART B July 25, 2007 PART B [id number] [id number] HARMONY MCCALL JR PATIENT MEDICARE (WNR) MEDICARE (M) PART A July 25, 2007 PART A [id number] [id number] [phone] 4 HARMONY MCCALL JR PATIENT PENDING SALE TO [facility] MEDICAL EXPENSE (OPT/PROF ) [facility] * Jan 24, 2015 [id number] 18 CAROLE MCCALL SPOUSE Selected Encounter This section includes the information on record at [place] for the Encounter. Date/Time Encounter Type Encounter Description Reason Provider Source Nov 07, 2023 08:00 AM EXERCISE CLASS HEALTH/WELLBEING SRVS ICD-10-CM Z72.3 Lack of physical exercise DAMON ONEILL IHE Encounter Template Text not used by [place] Assessments - Encounter Diagnoses This section includes the primary and secondary diagnoses documented for the Encounter. Date/Time Primary/Secondary Diagnosis Diagnosis Name Provider Source Nov 07, 2023 11:24 AM PRIMARY Lack of physical exercise DAMON ONEILL [place] [facility] [place] [facility] Plan of Treatment: Future Appointments (+ 6 months) and Future Tests (+/- 45 days) The Plan of Treatment section includes future care activities for the patient from all [place] treatmentfacilities. This section includes future appointments and future orders which are active, pending or scheduled. Future Appointments This section includes appointments that were scheduled to occur 6 months from the date of the Encounter, up to a maximum of 20 appointments. The data comes from all [place] treatment facilities. Appointment Date/Time Appointment Type Appointme nt Facility Name Nov 08, 2023 11:00 AM AMBULATORY - NONE [place] Nov 15, 2023 11:00 AM AMBULATORY - NONE [place] Nov 22, 2023 11:00 AM AMBULATORY - NONE [place] Nov 29, 2023 11:00 AM AMBULATORY - NONE [place] Dec 03, 2023 02:00 PM AMBULATORY - NONE [facility] [place] [facility] Dec 06, 2023 11:00 AM AMBULATORY - NONE [place] Dec 11, 2023 10:00 AM AMBULATORY - NONE [facility] [place] [facility] Dec 11, 2023 01:00 PM AMBULATORY - MEDICINE [facility] [place] [facility] Dec 13, 2023 11:00 AM AMBULATORY - NONE [place] Dec 20, 2023 11:00 AM AMBULATORY - NONE [place] Dec 25, 2023 10:00 AM AMBULATORY - NONE [facility] [place] [facility] Dec 27, 2023 11:00 AM AMBULATORY - NONE [place] Jan 03, 2024 11:00 AM AMBULATORY - NONE [place] Jan 08, 2024 10:00 AM AMBULATORY - NONE [facility] [place] [facility] Jan 10, 2024 11:00 AM AMBULATORY - NONE [place] Jan 17, 2024 11:00 AM AMBULATORY - NONE [place] Jan 21, 2024 11:00 AM AMBULATORY - MEDICINE [facility] [place] [facility] Jan 22, 2024 11:00 AM AM[place]ORY - [place]IC[place] [facility] Jan 22, 2024 11:00 AM AMBULATORY - NONE [facility] [place] [facility] Jan 24, 2024 11:00 AM AMBULATORY - NONE [place] Social History: Smoking Status (Most current) and Tobacco Use (All prior to encounter date) This section includes the most current, and the historical, smoking and tobacco- related health factors from the [place] facility where the Encounter took place. Current Smoking Status This section includes the most current smoking, or tobacco-related health factor, from the [place] facility where the Encounter took place. Date/Time Current Smoking Status Comment Facil ity Jan 26, 2023 01:30 PM VA-TOBACCO FORMER USER [facility] [place] [facility] Tobacco Use History This section includes a history of the smoking, or tobacco-related health factors, that were collected on or before the date of the Encounter. The data comes from the [place] facility where the Encounter took place. Date/Time Smoking Status/Tobacco Use Comment F acility Jan 26, 2023 01:30 PM VA-TOBACCO QUIT 15 YRS OR MORE [facility] [place] [facility] Jan 27, 2022 11:00 AM VA-TOBACCO FORMER USER [facility] [place] [facility] Jan 27, 2022 11:00 AM VA-TOBACCO QUIT 15 YRS OR MORE [facility] [place] [facility] Sep 17, 2020 09:00 AM VA-TOBACCO FORMER USER [facility] [place] [facility] Sep 17, 2020 09:00 AM VA-TOBACCO QUIT 15 YRS OR MORE [facility] [place] [facility] Jun 04, 2019 02:57 PM VA-TOBACCO NEVER USED [facility] [place] [facility] Mar 14, 2018 11:23 AM VA-TOBACCO FORMER USER [facility] [place] [facility] Mar 14, 2018 11:23 AM VA-TOBACCO QUIT 15 YRS OR MORE [facility] Apr 04, 2017 12:30 PM QUIT TOBACCO USE > 7 YEARS AGO [facility] Apr 05, 2016 01:02 PM QUIT TOBACCO USE > 7 YEARS AGO quit in 1984 [facility] Encounter Notes: All associated encounter notes This section contains the clinical notes associated to the Encounter. Date/Time Encounter Note(s) Provider Source Nov 07, 2023 11:22 AM GERIATRIC MEDICINE NOTE: LOCAL TITLE: GEROFIT VCM/VVC/VOD TELEHEALTH SUPERVISED EXERCISE STANDARD TITLE: GERIATRIC MEDICINE NOTE DATE OF NOTE: NOV 07, 2023@11:22 ENTRY DATE: NOV 07, 2023@11:22:34 AUTHOR: DOUG ONEILL COSIGNER: URGENCY: STATUS: COMPLETED GEROFIT VVC/VCM/VOD Telehealth Supervised Exercise NOTE [place] Provided informed consent to receive treatment via Telehealth., mailed and has been made verbally aware of [facility] [place] practices. [place]'s Location: address on record unless specified below. Emergency Contact: on record unless specified below. participated remotely in the Gerofit exercise program today through [place] Virtual Senior Infrastructure Engineer. Activities were focused on progression of their [...] health concerns. /johanny/ VIOLETTA FINK LICENSE MANAGER COMMUNITY OUTREACH Signed: 11/07/2023 11:27 DOUG ONEILL [facility]
--- OUTSIDE RECORDS SUMMARY | 2024-03-05 06:37 | XMS_ITS | Encounter Summary ---
Author Name [place] Address [address] [place] [address] Care Team Providers Care Regulatory Specialist Name Role Phone LEN MENDOZA Primary [...] PART B Sep 23, 2014 PART B [id number] [id number] HARMONY MCCALL JR PATIENT MEDICARE (WNR) MEDICARE (M) PART A July 25, 2007 PART A [id number] [id number] HARMONY MCCALL JR PATIENT MEDICARE (WNR) MEDICARE (M) PART B July 25, 2007 PART B [id number] [id number] HARMONY MCCALL JR PATIENT MEDICARE (WNR) MEDICARE (M) PART A July 25, 2007 PART A [id number] [id number] [id number] HARMONY MCCALL JR PATIENT [facility] MEDICAL EXPENSE (OPT/PROF ) [facility] * Jan 24, 2015 [id number] [id number] 18 CAROLE MCCALL SPOUSE Selected Encounter This section includes the information on record at [place] for the Encounter. Date/Time Encounter Type Encounter Description Reason Provider Source Nov 14, 2023 08:00 AM EXERCISE CLASS HEALTH/WELLBEING SRVS ICD-10-CM Z72.3 Lack of physical exercise DAMON ONEILL IHE Encounter Template Text not used by [place] Assessments - Encounter Diagnoses This section includes the primary and secondary diagnoses documented for the Encounter. Date/Time Primary/Secondary Diagnosis Diagnosis Name Provider Source Nov 14, 2023 10:58 AM PRIMARY Lack of physical exercise DAMON ONEILL [place] [facility] [place] [facility] Plan of Treatment: Future Appointments (+ 6 months) and Future Tests (+/- 45 days) The Plan of Treatment section includes future care activities for the patient from all [place] treatmentfacilities. This section includes future appointments and future orders which are active, pending or scheduled. Future Appointments This section includes appointments that were scheduled to occur 6 months from the date of the Encounter, up to a maximum of 20 appointments. The data comes from all [place] treatment facilities. Appointment Date/Time Appointment Type Appointme nt Facility Name Nov 15, 2023 11:00 AM AMBULATORY - NONE [place] Nov 22, 2023 11:00 AM AMBULATORY - NONE [place] Nov 29, 2023 11:00 AM AMBULATORY - NONE [place] Dec 03, 2023 02:00 PM AMBULATORY - NONE [facility] [place] [facility] Dec 06, 2023 11:00 AM AMBULATORY - NONE [place] Dec 11, 2023 10:00 AM AMBULATORY - NONE [facility] [place] [facility] Dec 11, 2023 01:00 PM AMBULATORY - MEDICINE [facility] [place] [place] [facility] Dec 13, 2023 11:00 AM AMBULATORY - NONE [place] Dec 20, 2023 11:00 AM AMBULATORY - NONE [place] Dec 25, 2023 10:00 AM AMBULATORY - NONE [facility] [place] [facility] Dec 27, 2023 11:00 AM AMBULATORY - NONE [place] Jan 03, 2024 11:00 AM AMBULATORY - NONE [place] Jan 08, 2024 10:00 AM AMBULATORY - NONE [facility] [place] [facility] Jan 10, 2024 11:00 AM AMBULATORY - NONE [place] Jan 17, 2024 11:00 AM AMBULATORY - NONE [place] Jan 21, 2024 11:00 AM AMBULATORY - MEDICINE [facility] [place] [place] [facility] Jan 22, 2024 11:00 AM AM[place]ULATORY - [place]IC[place] [facility] Jan 22, 2024 11:00 AM AMBULATORY - NONE [facility] [place] [facility] Jan 24, 2024 11:00 AM AMBULATORY - NONE [place] Jan 31, 2024 11:00 AM AMBULATORY - NONE [place] Social History: Smoking Status (Most current) and Tobacco Use (All prior to encounter date) This section includes the most current, and the historical, smoking and tobacco- related health factors from the [place] facility where the Encounter took place. Current Smoking Status This section includes the most current smoking, or tobacco-related health factor, from the [place] facility where the Encounter took place. Date/Time Current Smoking Status Comment Facil ity Jan 26, 2023 01:30 PM VA-TOBACCO FORMER USER [facility] [place] [facility] Tobacco Use History This section includes a history of the smoking, or tobacco-related health factors, that were collected on or before the date of the Encounter. The data comes from the [place] facility where the Encounter took place. Date/Time Smoking Status/Tobacco Use Comment F acility Jan 26, 2023 01:30 PM VA-TOBACCO QUIT 15 YRS OR MORE [facility] [place] [facility] Jan 27, 2022 11:00 AM VA-TOBACCO FORMER USER [facility] [place] [facility] Jan 27, 2022 11:00 AM VA-TOBACCO QUIT 15 YRS OR MORE [facility] [place] [facility] Sep 17, 2020 09:00 AM VA-TOBACCO FORMER USER [facility] [place] [facility] Sep 17, 2020 09:00 AM VA-TOBACCO QUIT 15 YRS OR MORE [facility] [place] [facility] Jun 04, 2019 02:57 PM VA-TOBACCO NEVER USED [facility] [place] [facility] Mar 14, 2018 11:23 AM VA-TOBACCO FORMER USER [facility] [place] [facility] Mar 14, 2018 11:23 AM VA-TOBACCO QUIT 15 YRS OR [facility] Apr 04, 2017 12:30 PM QUIT TOBACCO USE > 7 [facility] AGO [facility] Apr 05, 2016 01:02 PM QUIT TOBACCO USE > 7 YEARS AGO quit in 1984 [facility] Encounter Notes: All associated encounter notes This section contains the clinical notes associated to the Encounter. Date/Time Encounter Note(s) Provider Source Nov 14, 2023 10:56 AM GERIATRIC MEDICINE NOTE: LOCAL TITLE: GEROFIT VCM/VVC/VOD TELEHEALTH SUPERVISED EXERCISE STANDARD TITLE: GERIATRIC MEDICINE NOTE DATE OF NOTE: NOV 14, 2023@10:56 ENTRY DATE: NOV 14, 2023@10:56:44 AUTHOR: DOUG ONEILL COSIGNER: URGENCY: STATUS: COMPLETED GEROFIT VVC/VCM/VOD Telehealth Supervised Exercise NOTE [place] Provided informed consent to receive treatment via Telehealth., mailed and has been made verbally aware of [facility] [place] practices. [place]'s Location: address on record unless specified below. Emergency Contact: on record unless specified below. participated remotely in the Gerofit exercise program today through [place] Virtual Commercial Illustrator. Activities were focused on progression of their [...] whole health concerns. /johanny/ VIOLETTA FINK LICENSE FIRE CLAIMS ADJUSTER Signed: 11/14/2023 11:07 DOUG ONEILL [facility]
--- OUTSIDE RECORDS SUMMARY | 2024-03-05 06:38 | XMS_ITS | Encounter Summary ---
Author Name [place] Address [address] [place] [address] Care Team Providers Care Commercial Housekeeper Name Role Phone LEN MENDOZA Primary Care [...] PART B Sep 23, 2014 PART B [id number] HARMONY MCCALL JR PATIENT MEDICARE (WNR) MEDICARE (M) PART A July 25, 2007 PART A [id number] [id number] HARMONY MCCALL JR PATIENT MEDICARE (WNR) MEDICARE (M) PART B July 25, 2007 PART B [id number] [id number] HARMONY MCCALL JR PATIENT MEDICARE (WNR) MEDICARE (M) PART A July 25, 2007 PART A [id number] [id number] HARMONY MCCALL JR PATIENT [facility] MEDICAL EXPENSE (OPT/PROF ) [facility] * Jan 24, 2015 [id number] 18 CAROLE MCCALL SPOUSE Selected Encounter This section includes the information on record at [place] for the Encounter. Date/Time Encounter Type Encounter Description Reason Provider Source Nov 21, 2023 08:00 AM EXERCISE CLASS HEALTH/WELLBEING SRVS ICD-10-CM Z72.3 Lack of physical exercise DAMON ONEILL IHE Encounter Template Text not used by [place] Assessments - Encounter Diagnoses This section includes the primary and secondary diagnoses documented for the Encounter. Date/Time Primary/Secondary Diagnosis Diagnosis Name Provider Source Nov 21, 2023 10:58 AM PRIMARY Lack of physical exercise DAMON ONEILL [place] [facility] [place] [place] [facility] Plan of Treatment: Future Appointments [...] Appointment Type Appointme nt Facility Name Nov 22, 2023 11:00 AM AMBULATORY - NONE [place] Nov 29, 2023 11:00 AM AMBULATORY - NONE [place] Dec 03, 2023 02:00 PM AMBULATORY - NONE [facility] [place] [place] [facility] Dec 06, 2023 11:00 AM AMBULATORY - NONE [place] Dec 11, 2023 10:00 AM AMBULATORY - NONE [facility] [place] [place] [facility] Dec 11, 2023 01:00 PM AMBULATORY - MEDICINE [facility] [place] [place] [facility] Dec 13, 2023 11:00 AM AMBULATORY - NONE [place] Dec 20, 2023 11:00 AM AMBULATORY - NONE [place] Dec 25, 2023 10:00 AM AMBULATORY - NONE [facility] [place] [place] [facility] Dec 27, 2023 11:00 AM AMBULATORY - NONE [place] Jan 03, 2024 11:00 AM AMBULATORY - NONE [place] Jan 08, 2024 10:00 AM AMBULATORY - NONE [facility] [place] [facility] Jan 10, 2024 11:00 AM AMBULATORY - NONE [place] Jan 17, 2024 11:00 AM AMBULATORY - NONE [place] Jan 21, 2024 11:00 AM AMBULATORY - MEDICINE [facility] [place] [place] [facility] Jan 22, 2024 11:00 AM AMBULATORY - [place]ICINE [place] [facility] Jan 22, 2024 11:00 AM AMBULATORY - NONE [facility] [place] [facility] Jan 24, 2024 11:00 AM [...] PM VA-TOBACCO QUIT 15 YRS OR MORE [place] [facility] [place] [facility] Tobacco Use History This section includes a history of the smoking, or tobacco-related health factors, that were collected on or before the date of the Encounter. The data comes from the [place] facility where the Encounter took place. Date/Time Smoking Status/Tobacco Use Comment F acility Jan 26, 2023 01:30 PM VA-TOBACCO QUIT 15 YRS OR MORE [facility] [place] [facility] Jan 27, 2022 11:00 AM VA-TOBACCO FORMER USER [facility] [place] [facility] Jan 27, 2022 11:00 AM VA-TOBACCO QUIT 15 YRS OR MORE [facility] [place] [facility] Sep 17, 2020 09:00 AM VA-TOBACCO FORMER USER [facility] [place] [facility] Sep 17, 2020 09:00 AM VA-TOBACCO QUIT 15 YRS OR MORE [facility] [place] [facility] Jun 04, 2019 02:57 PM VA-TOBACCO NEVER USED [facility] [place] [facility] Mar 14, 2018 11:23 AM VA-TOBACCO FORMER USER [facility] [place] [facility] Mar 14, 2018 11:23 AM VA-TOBACCO QUIT 15 YRS OR MORE [facility] Apr 04, 2017 12:30 PM QUIT TOBACCO USE > 7 YEARS AGO [facility] Apr 05, 2016 01:02 PM QUIT TOBACCO USE > 7 YEARS AGO quit in 1984 [facility] Encounter Notes: All associated encounter notes This section contains the clinical notes associated to the Encounter. Date/Time Encounter Note(s) Provider Source Nov 21, 2023 10:57 AM GERIATRIC MEDICINE NOTE: LOCAL TITLE: GEROFIT VCM/VVC/VOD TELEHEALTH SUPERVISED EXERCISE STANDARD TITLE: GERIATRIC MEDICINE NOTE DATE OF NOTE: NOV 21, 2023@10:57 ENTRY DATE: NOV 21, 2023@10:57:55 AUTHOR: DOUG ONEILL COSIGNER: URGENCY: STATUS: COMPLETED GEROFIT VVC/VCM/VOD Telehealth Supervised Exercise NOTE [place] Provided informed consent to receive treatment via Telehealth., [place] mailed and has been made verbally aware of [facility] [place] practices. 's Location: address on record unless specified below. Emergency Contact: on record unless specified below. [facility] through [place] Virtual Parts Sales Representative. Activities were focused on progression of their individual exercise prescription (cardiorespiratory fitness training, strength training, etc.) and group-based exercise sessions to include, but not limited to: flexibility training, balance training & functional circuit training. Exercise participation was supervised remotely by [facility] staff and any questions/concerns were addressed with the patient. Modifications were made to programming as appropriate to suit Veterans individual needs, preferences, and whole health concerns. /johanny/ VIOLETTA FINK LICENSE ASSISTANT PROFESSOR SCULPTURE Signed: 11/21/2023 11:04 DOUG ONEILL [facility]
--- OUTSIDE RECORDS SUMMARY | 2024-03-05 06:38 | XMS_ITS | Encounter Summary ---
Author Name [place] Address [address] [place] [address] Care Team Providers Care Export Traffic Department Manager Name Role Phone LEN MENDOZA Primary [...] PART B Sep 23, 2014 PART B [id number] [id number] [phone] 4 HARMONY MCCALL JR PATIENT MEDICARE (WNR) MEDICARE (M) PART A July 25, 2007 PART A [id number] [phone] HARMONY MCCALL JR PATIENT MEDICARE (WNR) MEDICARE (M) PART B July 25, 2007 PART B [id number] [id number] [phone] HARMONY MCCALL JR PATIENT MEDICARE (WNR) MEDICARE (M) PART A July 25, 2007 PART A [id number] HARMONY MCCALL JR PATIENT [facility] MEDICAL EXPENSE (OPT/PROF ) [facility] * Jan 24, 2015 [id number] 18 CAROLE MCCALL SPOUSE Selected Encounter This section includes the information on record at [place] for the Encounter. Date/Time Encounter Type Encounter Description Reason Provider Source Nov 15, 2023 11:00 AM HLTH BHV IVNTJ GRP EA ADDL WEIGHT MGMT & MOVE! PROG - GRP ICD-10-CM Z68.30 Body mass index [BMI] 30.0-30.9, adult GORDON PATHAK [facility] Encounter Template Text not used by [place] Assessments - Encounter Diagnoses This section includes the primary and secondary diagnoses documented for the Encounter. Date/Time Primary/Secondary Diagnosis Diagnosis Name Provider Source Nov 17, 2023 02:15 PM PRIMARY Body mass index [BMI] 30.0-30.9, adult GORDON PATHAK [place] Nov 17, 2023 02:15 PM SECONDARY Other obesity due to excess [...] [facility] [place] [facility] Dec 06, 2023 11:00 AM AMBULATORY - NONE [place] Dec 11, 2023 10:00 AM AMBULATORY - NONE [facility] [place] [facility] Dec 11, 2023 01:00 PM AMBULATORY - MEDICINE [facility] [place] [facility] Dec 13, 2023 11:00 AM AMBULATORY - NONE [place] Dec 20, 2023 11:00 AM AMBULATORY - NONE [place] Dec 25, 2023 10:00 AM AMBULATORY - NONE [facility] [place] [facility] Dec 27, 2023 11:00 AM AMBULATORY - NONE [place] Jan 03, 2024 11:00 AM AMBULATORY - NONE [place] Jan 08, 2024 10:00 AM AMBULATORY - NONE [facility] [place] [facility] Jan 10, 2024 11:00 AM AMBULATORY - NONE [place] Jan 17, 2024 11:00 AM AMBULATORY - NONE [place] Jan 21, 2024 11:00 AM AMBULATORY - MEDICINE [facility] [place] [facility] Jan 22, 2024 11:00 AM AMBULATORY - [place]ICINE [place] [facility] Jan 22, 2024 11:00 AM AMBULATORY - NONE [facility] [place] [facility] Jan 24, 2024 11:00 AM [...] Pain Height Weight Body Mass Index Source Nov 15, 2023 12:23 PM 210.1 32 [place] Encounter Notes: All associated encounter notes This section contains the clinical notes associated to the Encounter. Date/Time Encounter Note(s) Provider Source Nov 17, 2023 02:10 PM MOVE NOTE: LOCAL TITLE: WEIGHT MANAGEMENT/MOVE! OUTPATIENT GROUP NOTE STANDARD TITLE: MOVE NOTE DATE OF NOTE: NOV 17, 2023@14:10 ENTRY DATE: NOV 17, 2023@14:10:19 AUTHOR: GORDON PATHAK COSIGNER: URGENCY: STATUS: COMPLETED [place] participated in MOVE! Group Counseling via [facility] on November 15, 2023. The was provided with information on [facility] and has given verbal consent to use group VVC services for their healthcare. The copy of the Group Telehealth Agreement has been mailed to the [place]. The Veterans location/emergency contact number were confirmed. The Emergency Call Relay Center ([id number]) was available. The visit was locked for security and privacy. [place] identified with 2 identifiers: [ ] Full Name [ ] Address Veterans attended the [facility] MOVE! group session on this date. MOVE! is a program designed to provide education about weight management skills to overweight and obese Veterans. Group members combined to gain 3.1 pounds since their last attended group. Group members began today's discussion by different strategies that they would be working on this coming week in order to turn around the group trend of weight gain. Some talked about exercising more and inquired about the FitVet and GeroFit groups. Others talked about weight loss drugs and how to proceed in discussing such possibilities with their providers. Some Veterans shared their desire to purchase healthier foods and cut down on portion sizes. Group members shared their individual goals for the next week. The next [facility] MOVE! group meeting will be held on October @ 11:00am. 's reported weight was 210.1 lbs. and gained 1.3 pounds since last group attended. Dx: Obesity d/t Excess Calories Obesity E66.09 BMI 30.0-30.9 The session lasted for 1 hour in duration. /johanny/ GORDON PATHAK, Ph.D. CLINICAL PSYCHOLOGIST Signed: 11/17/2023 14:19 Receipt Acknowledged By: 11/20/2023 09:59 /johanny/ SANTIAGO KRAMER STAFF DIETITIAN GORDON PATHAK
--- OUTSIDE RECORDS SUMMARY | 2024-03-05 06:38 | XMS_ITS | Encounter Summary ---
Author Name [facility] [place] [facility] [place] Organization [place] Address [address] [place] [id number] Care Team Providers Care Project Engineering Manager Name Role Phone LEN MENDOZA Primary [...] PART B Sep 23, 2014 PART B [id number] [phone] 4 HARMONY MCCALL JR PATIENT MEDICARE (WNR) MEDICARE (M) PART A July 25, 2007 PART A [id number] HARMONY MCCALL JR PATIENT MEDICARE (WNR) MEDICARE (M) PART B July 25, 2007 PART B [id number] [id number] HARMONY MCCALL JR PATIENT MEDICARE (WNR) MEDICARE (M) PART A July 25, 2007 PART A [id number] HARMONY MCCALL JR PATIENT [facility] MEDICAL EXPENSE (OPT/PROF ) [facility] [place] * Jan 24, 2015 [id number] CAROLE MCCALL SPOUSE Selected Encounter This section includes the information on record at [place] for the Encounter. Date/Time Encounter Type Encounter Description Reason Pro vider Source IHE Encounter Template Text not used by VA
--- OUTSIDE RECORDS SUMMARY | 2024-03-05 06:38 | XMS_ITS | Encounter Summary ---
Author Name [place] Address [address] [place] [id number] Care Team Providers Care Electrotype Servicer Name Role Phone LEN MENDOZA Primary Care [...] PART B Sep 23, 2014 PART B [id number] HARMONY MCCALL JR PATIENT MEDICARE (WNR) MEDICARE (M) PART A July 25, 2007 PART A [id number] [id number] HARMONY MCCALL JR PATIENT MEDICARE (WNR) MEDICARE (M) PART B July 25, 2007 PART B [id number] [id number] HARMONY MCCALL JR PATIENT MEDICARE (WNR) MEDICARE (M) PART A July 25, 2007 PART A [id number] [id number] HARMONY MCCALL JR PATIENT [facility] MEDICAL EXPENSE (OPT/PROF ) [facility] [place] * Jan 24, 2015 [id number] 18 CAROLE MCCALL SPOUSE Selected Encounter This section includes the information on record at [place] for the Encounter. Date/Time Encounter Type Encounter Description Reason Provider Source Nov 30, 2023 08:00 AM EXERCISE CLASS HEALTH/WELLBEING [facility] ICD-10-CM Z72.3 Lack of physical exercise TERRY COATES IHE Encounter Template Text not used by [facility] Assessments - Encounter Diagnoses This section includes the primary and secondary diagnoses documented for the Encounter. Date/Time Primary/Secondary Diagnosis Diagnosis Name Provider Source Nov 30, 2023 01:47 PM PRIMARY Lack of physical exercise JAXONTERRY [place] [facility] [place] [facility] Plan of Treatment: Future Appointments (+ 6 [...] Date/Time Appointment Type Appointme nt Facility Name Dec 03, 2023 02:00 PM AMBULATORY - NONE [facility] [place] [facility] Dec 06, 2023 11:00 AM AMBULATORY - NONE [place] Dec 11, 2023 10:00 AM AMBULATORY - NONE [facility] [place] [facility] Dec 11, 2023 01:00 PM AMBULATORY - MEDICINE [facility] [place] [facility] Dec 13, 2023 11:00 AM AMBULATORY - NONE [place] Dec 20, 2023 11:00 AM AMBULATORY - NONE [place] Dec 25, 2023 10:00 AM AMBULATORY - NONE [facility] [place] [facility] Dec 27, 2023 11:00 AM AMBULATORY - NONE [place] Jan 03, 2024 11:00 AM AMBULATORY - NONE [place] Jan 08, 2024 10:00 AM AMBULATORY - NONE [facility] [place] [facility] Jan 10, 2024 11:00 AM AMBULATORY - NONE [place] Jan 17, 2024 11:00 AM AMBULATORY - NONE [place] Jan 21, 2024 11:00 AM AMBULATORY - MEDICINE [facility] [place] [facility] Jan 22, 2024 11:00 AM AMBULATORY - MEDICINE [facility] [place] Jan 22, 2024 11:00 AM AMBULATORY - NONE [facility] Jan 24, 2024 11:00 AM AMBULATORY - NONE [place] Jan 31, 2024 11:00 AM AMBULATORY - NONE [place] Feb 07, 2024 11:00 AM AMBULATORY - NONE [place] Feb 14, 2024 11:00 AM AMBULATORY - NONE [place] Feb 26, 2024 08:30 AM [facility] Active, Pending, and Scheduled Orders This section includes a listing of several types of active, pending, and scheduled orders, including clinic medications orders, diagnostic test orders, procedure orders and consult orders; where the start date of the order is 45 days before the date of the Encounter or 45 days after the date of theEncounter. The data comes from all [place] treatment facilities. Test Date/Time Test Type Test Details Facility Name Jan 10, 2024 12:00 AM Laboratory - Chemi stry Order [facility] Jan 10, 2024 12:00 AM Laboratory - Chemi stry Order LIPID PANEL, NON FASTING BLOOD (SST-SERUM) [facility] Jan 10, 2024 12:00 AM Laboratory - Chemi stry Order BASIC METABOLIC PANEL (non-fasting) BLOOD (SST-SERUM) [facility] Jan 10, 2024 12:00 AM Laboratory - Chemi stry Order TSH BLOOD (SST-SERUM) [facility] Jan 10, 2024 12:00 AM Laboratory - Chemi stry Order LIVER FUNCTION BLOOD (SST-SERUM) [facility] Jan 10, 2024 12:00 AM Laboratory - Chemi stry Order FERRITIN BLOOD (SST-SERUM) [facility] Jan 10, 2024 12:00 AM Laboratory - Chemi stry Order VITAMIN B12 BLOOD (SST-SERUM) [facility] Jan 10, 2024 12:00 AM Laboratory - Chemi stry Order IRON & TIBC PANEL BLOOD (SST-SERUM) [facility] [place] [facility] [place] [facility] Social History: Smoking Status (Most current) and [...] 26, 2023 01:30 PM VA-TOBACCO FORMER USER [place] [facility] Tobacco Use History This section includes a history of the smoking, or tobacco-related health factors, that were collected on or before the date of the Encounter. The data comes from the [place] facility where the Encounter took place. Date/Time Smoking Status/Tobacco Use Comment F acility Jan 26, 2023 01:30 PM VA-TOBACCO QUIT 15 YRS OR MORE [place] [facility] [place] [facility] Jan 27, 2022 11:00 AM VA-TOBACCO FORMER USER [place] [facility] [place] [facility] Jan 27, 2022 11:00 AM VA-TOBACCO QUIT 15 YRS OR MORE [facility] [place] [facility] Sep 17, 2020 09:00 AM VA-TOBACCO FORMER USER [place] [facility] [place] [facility] Sep 17, 2020 09:00 AM VA-TOBACCO QUIT 15 YRS OR MORE [facility] [place] [facility] Jun 04, 2019 02:57 PM VA-TOBACCO NEVER USED [place] [facility] [place] [facility] Mar 14, 2018 11:23 AM VA-TOBACCO FORMER USER [place] [facility] [place] [facility] Mar 14, 2018 11:23 AM VA-TOBACCO QUIT 15 YRS OR MORE [facility] [place] [facility] Apr 04, 2017 12:30 PM QUIT TOBACCO USE > 7 YEARS AGO [facility] [place] [facility] Apr 05, 2016 01:02 PM QUIT TOBACCO USE > 7 YEARS AGO quit in 1984 [place] [facility] [place] [facility] Encounter Notes: All associated encounter notes This section contains the clinical notes associated to the Encounter. Date/Time Encounter Note(s) Provider Source Nov 30, 2023 01:46 PM GERIATRIC MEDICINE NOTE: LOCAL TITLE: GEROFIT VCM/VVC/VOD TELEHEALTH SUPERVISED EXERCISE STANDARD TITLE: GERIATRIC MEDICINE NOTE DATE OF NOTE: NOV 30, 2023@13:46 ENTRY DATE: NOV 30, 2023@13:46:34 AUTHOR: TERRY COATES COSIGNER: URGENCY: STATUS: COMPLETED Provided informed consent to receive treatment via Telehealth., [place] mailed and has been made verbally aware of Telehealth Group [place] practices. 's Location: address on record unless specified below. Emergency Contact: on record unless specified below. participated remotely in the Gerofit exercise program today through [place] Virtual Director Of Channel Marketing. Activities were focused on progression of their [...] TERRY COATES PT, DPT PHYSICAL THERAPIST Signed: 11/30/2023 13:48 TERRY COATES [place] [facility]
--- OUTSIDE RECORDS SUMMARY | 2024-03-05 06:38 | XMS_ITS | Encounter Summary ---
Author Name [facility] [place] Address [address] [place] [address] Care Team Providers Care Turntable Engineer Name Role Phone LEN MENDOZA Primary [...] PART B Sep 23, 2014 PART B [id number] HARMONY MCCALL JR PATIENT MEDICARE (WNR) MEDICARE (M) PART A July 25, 2007 PART A [id number] [id number] HARMONY MCCALL JR PATIENT MEDICARE (WNR) MEDICARE (M) PART B July 25, 2007 PART B [id number] [id number] HAROMNY MCCALL JR PATIENT MEDICARE (WNR) MEDICARE (M) PART A July 25, 2007 PART A [id number] [id number] HARMONY MCCALL JR PATIENT [facility] MEDICAL EXPENSE (OPT/PROF ) [facility] [place] * Jan 24, 2015 [id number] 18 CAROLE MCCALL SPOUSE Selected Encounter This section includes the information on record at [place] for the Encounter. Date/Time Encounter Type Encounter Description Reason Provider Source Nov 22, 2023 11:00 AM GROUP BEHAVE COUNS 2-10 WEIGHT MGMT & MOVE! PROG - GRP ICD-10-CM E66.09 Other obesity due to excess calories MIGUEL KRAMER Erin Encounter Template Text not used by [place] Assessments - Encounter Diagnoses This section includes the primary and secondary diagnoses documented for the Encounter. Date/Time Primary/Secondary Diagnosis Diagnosis Name Provider Source Nov 23, 2023 08:48 AM PRIMARY Other obesity due to excess calories SANTIAGO KRAMER Nov 23, 2023 08:48 AM SECONDARY Body mass index [BMI] 30.0-30.9, [...] Appointment Type Appointme nt Facility Name Nov 29, 2023 11:00 AM AMBULATORY - NONE [place] Dec 03, 2023 02:00 PM AMBULATORY - NONE [facility] [place] [facility] Dec 06, 2023 11:00 AM AMBULATORY - NONE [place] Dec 11, 2023 10:00 AM AMBULATORY - NONE [facility] [place] [facility] Dec 11, 2023 01:00 PM AMBULATORY - MEDICINE [facility] [place] [facility] Dec 13, 2023 11:00 AM AMBULATORY - NONE [place] Dec 20, 2023 11:00 AM AMBULATORY - NONE [place] Dec 25, 2023 10:00 AM AMBULATORY - NONE [facility] [place] [facility] Dec 27, 2023 11:00 AM AMBULATORY - NONE [place] Jan 03, 2024 11:00 AM AMBULATORY - NONE [place] Jan 08, 2024 10:00 AM AMBULATORY - NONE [facility] [place] [facility] Jan 10, 2024 11:00 AM AMBULATORY - NONE [place] Jan 17, 2024 11:00 AM AMBULATORY - NONE [place] Jan 21, 2024 11:00 AM AMBULATORY - MEDICINE [facility] [place] [facility] Jan 22, 2024 11:00 AM AMBULATORY - [place]ICINE [place] [facility] Jan 22, 2024 11:00 AM AMBULATORY - NONE [facility] [place] [facility] Jan 24, 2024 11:00 AM AMBULATORY - NONE [place] Jan 31, 2024 11:00 AM AMBULATORY - NONE [place] Feb 07, 2024 11:00 AM AMBULATORY - NONE [place] Feb 14, 2024 11:00 AM AMBULATORY - NONE [place] Encounter Notes: All associated encounter notes This section contains the clinical notes associated to the Encounter. Date/Time Encounter Note(s) Provider Source Nov 22, 2023 11:00 AM MOVE NOTE: LOCAL TITLE: WEIGHT MANAGEMENT/MOVE! OUTPATIENT GROUP NOTE STANDARD TITLE: MOVE NOTE DATE OF NOTE: NOV 22, 2023@11:00 ENTRY DATE: NOV 23, 2023@08:28:19 AUTHOR: SANTIAGO KRAMER COSIGNER: URGENCY: STATUS: COMPLETED participated in MOVE! Group Counseling via [facility] on November 22, 2023. The [place] was provided with information on [facility] and has given verbal consent to use group [facility] services for their healthcare. The copy of the Group Telehealth Agreement has been mailed to the [place]. The Veterans location/emergency contact number were confirmed. The Emergency Call Relay Center ([phone]) was available. The visit was locked for security and privacy. identified with 2 identifiers: [ ] Full Name [ ] Address Veterans attended the [facility] MOVE! group session on this date. MOVE! is a program designed to provide education about weight management skills to overweight and obese Veterans. Group members combined to gain 10 pounds since their last attended group. Group members began today's discussion by discussing their recent weight gain. Members stated plans to get back on track. Group members then shared their different volunteer positions and organizations. Group members also shared their different hobbies and interests. Facilitators noted thatn when group members are doing the activities they care about they are not thinking about food and doing more of these can help with weight loss. The next [facility] MOVE! group meeting will be held on November @ 11:00am. 's reported weight was 210.5 lbs. and gained 0.4 pounds since last group attended. Dx: Obesity d/t Excess Calories Obesity E66.09 BMI 30.0-30.9 The session lasted for 1 hour in duration. /johanny/ SANTIAGO KRAMER STAFF DIETITIAN Signed: 11/23/2023 08:49 Receipt Acknowledged By: 11/30/2023 10:00 /johanny/ GORDON PATHAK, Ph.D. CLINICAL PSYCHOLOGIST SANTIAGO KRAMERFIELD
--- OUTSIDE RECORDS SUMMARY | 2024-03-05 06:38 | XMS_ITS | Encounter Summary ---
Author Name [facility] [place] Address [address] [place] [address] Care Team Providers Care Ship Joiner Name Role Phone LEN MENDOZA Primary Care [...] PART B Sep 23, 2014 PART B [id number] [id number] HARMONY MCCALL JR PATIENT MEDICARE (WNR) MEDICARE (M) PART A July 25, 2007 PART A [id number] [id number] HARMONY MCCALL JR PATIENT MEDICARE (WNR) MEDICARE (M) PART B July 25, 2007 PART B [id number] [id number] HARMONY MCCALL JR PATIENT MEDICARE (WNR) MEDICARE (M) PART A July 25, 2007 PART A [id number] [phone] 4 HARMONY MCCALL JR PATIENT [facility] MEDICAL EXPENSE (OPT/PROF ) [facility] [place] * Jan 24, 2015 [id number] 18 CAROLE MCCALL SPOUSE Selected Encounter This section includes the information on record at [place] for the Encounter. Date/Time Encounter Type Encounter Description Reason Provider Source Nov 29, 2023 11:00 AM HLTH BHV IVNTJ GRP EA ADDL WEIGHT MGMT & MOVE! PROG - GRP ICD-10-CM Z68.30 Body mass index [BMI] 30.0-30.9, adult GORDON PATHAK [facility] Encounter Template Text not used by [place] Assessments - Encounter Diagnoses This section includes the primary and secondary diagnoses documented for the Encounter. Date/Time Primary/Secondary Diagnosis Diagnosis Name Provider Source Nov 30, 2023 10:21 AM PRIMARY Body mass index [BMI] 30.0-30.9, adult GORDON PATHAK [place] Nov 30, 2023 10:21 AM SECONDARY Other obesity due to excess calories GORDON PATHAK [place] Plan of Treatment: Future Appointments (+ 6 [...] AMBULATORY - NONE [facility] [place] [facility] Dec 06, 2023 11:00 AM AMBULATORY - NONE [place] Dec 11, 2023 10:00 AM AMBULATORY - NONE [facility] [place] [facility] Dec 11, 2023 01:00 PM AMBULATORY - MEDICINE [facility] [place] [facility] Dec 13, 2023 11:00 AM AMBULATORY - NONE [place] Dec 20, 2023 11:00 AM AMBULATORY - NONE [place] Dec 25, 2023 10:00 AM AMBULATORY - NONE [facility] [place] [facility] Dec 27, 2023 11:00 AM AMBULATORY - NONE [place] Jan 03, 2024 11:00 AM AMBULATORY - NONE [place] Jan 08, 2024 10:00 AM AMBULATORY - NONE [facility] [place] [facility] Jan 10, 2024 11:00 AM AMBULATORY - NONE [place] Jan 17, 2024 11:00 AM AMBULATORY - NONE [place] Jan 21, 2024 11:00 AM AMBULATORY [place] MEDICINE [facility] [place] [place] [facility] Jan 22, 2024 11:00 AM AMBULATORY - [place]ICINE [place] [facility] Jan 22, 2024 11:00 AM AMBULATORY - NONE [facility] [place] [facility] Jan 24, 2024 11:00 AM AMBULATORY - NONE [place] Jan 31, 2024 11:00 AM AMBULATORY - NONE [place] Feb 07, 2024 11:00 AM AMBULATORY - NONE [place] Feb 14, 2024 11:00 AM AMBULATORY - NONE [place] Feb 26, 2024 08:30 AM AMBULATORY - NONE [facility] Active, Pending, and Scheduled Orders This section includes a listing of several types of active, pending, and scheduled orders, including clinic medications orders, diagnostic test orders, procedure orders and consult orders; where the start date of the order is 45 days before the date of the Encounter or 45 days after the date of theEncounter. The data comes from all [place] treatment facilities. Test Date/Time Test Type Test Details Facility Name Jan 10, 2024 12:00 AM Laboratory - Chemi stry Order BASIC METABOLIC PANEL (non-fasting) BLOOD (SST-SERUM) [facility] Jan 10, 2024 12:00 AM Laboratory - Chemi stry Order CBC BLOOD (LAV-BLOOD) [facility] [place] [facility] Jan 10, 2024 12:00 AM Laboratory - Chemi stry Order LIVER FUNCTION BLOOD (SST-SERUM) [facility] [place] [facility] Jan 10, 2024 12:00 AM Laboratory - Chemi stry Order TSH BLOOD (SST-SERUM) [facility] [place] [facility] Jan 10, 2024 12:00 AM Laboratory - Chemi stry Order LIPID PANEL, NON FASTING BLOOD (SST-SERUM) [facility] Jan 10, 2024 12:00 AM Laboratory - Chemi stry Order FERRITIN BLOOD (SST-SERUM) [facility] Jan 10, 2024 12:00 AM Laboratory - Chemi stry Order VITAMIN B12 BLOOD (SST-SERUM) [facility] Jan 10, 2024 12:00 AM Laboratory - Chemi stry Order IRON & TIBC PANEL BLOOD (SST-SERUM) [facility] Vital Signs: All taken on the encounter date This section contains inpatient and outpatient Vital Signs collected on the date of the Encounter. Date/Time Temperature Pulse Blood Pressure Respiratory Rate SP02 Pain Height Weight Body Mass Index Source Nov 29, 2023 11:24 AM 211 32 [place] Encounter Notes: All associated encounter notes This section contains the clinical notes associated to the Encounter. Date/Time Encounter Note(s) Provider Source Nov 30, 2023 10:10 AM MOVE NOTE: LOCAL TITLE: WEIGHT MANAGEMENT/MOVE! OUTPATIENT GROUP NOTE STANDARD TITLE: MOVE NOTE DATE OF NOTE: NOV 30, 2023@10:10 ENTRY DATE: NOV 30, 2023@10:10:42 AUTHOR: GORDON PATHAK COSIGNER: URGENCY: STATUS: COMPLETED [place] participated in MOVE! Group Counseling via [facility] on November 29, 2023. The [place] was provided with information on [facility] and has given verbal consent [...] Name [ ] Address Veterans attended the [facility] MOVE! group session on this date. MOVE! is a program designed to provide education about weight management skills to overweight and obese Veterans. Group members combined to gain 2.9 pounds since their last attended group. Group members began today's discussion expressing concern that their collective weight has been trending up in the last several months. Facilitators shared that their perception was accurate and that the total weight gain of the group was over 50 pounds since the start of the calendar year. Veterans appeared to believe that such weight gain was somewhat out of their control. Upon further review, however, each group member was able to identify specific actions and choices that they routinely make which contributes to their lack of weight loss. Some members shared that they want to do something about it immediately. With the advice of taking one week at a time to establish healthier habits, facilitators reminded group members about the importance of daily exercise and modeling their meals after the healthy plate model. Veterans were encouraged to participate in the grocery shopping and meal preparation process. Group members shared their individual goals for the next week. The next [facility] MOVE! group meeting will be held on November @ 11:00am. 's reported weight was 211.0 lbs. and gained 0.5 pounds since last group attended. Dx: Obesity d/t Excess Calories Obesity E66.09 BMI 30.0-30.9 The session lasted for 1 hour in duration. /johanny/ GORDON PATHAK, Ph.D. CLINICAL PSYCHOLOGIST Signed: 11/30/2023 10:26 Receipt Acknowledged By: 11/30/2023 15:29 /johanny/ SANTIAGO KRAMER STAFF DIETITIAN GORDON PATHAK
--- OUTSIDE RECORDS SUMMARY | 2024-03-05 06:38 | XMS_ITS | Encounter Summary ---
Author Name [place] Address [address] [place] [address] Care Team Providers Care Racing Driver Name Role Phone LEN MENDOZA Primary Care [...] PART B Sep 23, 2014 PART B [id number] HARMONY MCCALL JR PATIENT MEDICARE (WNR) MEDICARE (M) PART A July 25, 2007 PART A [id number] HARMONY MCCALL JR PATIENT MEDICARE (WNR) MEDICARE (M) PART B July 25, 2007 PART B [id number] HARMONY MCCALL JR PATIENT MEDICARE (WNR) MEDICARE (M) PART A July 25, 2007 PART A [id number] HARMONY MCCALL JR PATIENT [facility] MEDICAL EXPENSE (OPT/PROF ) [facility] * Jan 24, 2015 [id number] CAROLE MCCALL SPOUSE Selected Encounter This section includes the information on record at [place] for the Encounter. Date/Time Encounter Type Encounter Description Reason Provider Source Nov 16, 2023 08:00 AM EXERCISE CLASS HEALTH/WELLBEING SRVS ICD-10-CM Z72.3 Lack of physical exercise DAMON ONEILL IHE Encounter Template Text not used by [place] Assessments - Encounter Diagnoses This section includes the primary and secondary diagnoses documented for the Encounter. Date/Time Primary/Secondary Diagnosis Diagnosis Name Provider Source Nov 16, 2023 10:46 AM PRIMARY Lack of physical exercise DAMON ONEILL [place] [facility] [place] [facility] Plan of Treatment: Future Appointments (+ [...] [facility] [place] [facility] Dec 27, 2023 11:00 AM AM[place]ULATORY - NONE [place] Jan 03, 2024 11:00 AM AMBULATORY - NONE [place] Jan 08, 2024 10:00 AM AMBULATORY - NONE [place] [facility] [place] [facility] Jan 10, 2024 11:00 AM AMBULATORY - NONE [place] Jan 17, 2024 11:00 AM AMBULATORY - NONE [place] Jan 21, 2024 11:00 AM AMBULATORY - MEDICINE [facility] [place] [facility] Jan 22, 2024 11:00 AM AM[place]ULATORY - [place]IC[place] [facility] Jan 22, 2024 11:00 AM AMBULATORY - NONE [place] [facility] [place] [facility] Jan 24, 2024 11:00 AM AMBULATORY [...] YRS OR MORE [place] [facility] [place] [facility] Tobacco Use History This section includes a history of the smoking, or tobacco-related health factors, that were collected on or before the date of the Encounter. The data comes from the [place] facility where the Encounter took place. Date/Time Smoking Status/Tobacco Use Comment F acility Jan 26, 2023 01:30 PM VA-TOBACCO QUIT 15 YRS OR MORE [facility] [place] [facility] Jan 27, 2022 11:00 AM VA-TOBACCO FORMER USER [facility] [place] [facility] Jan 27, 2022 11:00 AM VA-TOBACCO QUIT 15 YRS OR MORE [facility] [place] [facility] Sep 17, 2020 09:00 AM VA-TOBACCO FORMER USER [facility] [place] [facility] Sep 17, 2020 09:00 AM VA-TOBACCO QUIT 15 YRS OR MORE [facility] [place] [facility] Jun 04, 2019 02:57 PM VA-TOBACCO NEVER USED [facility] [place] [facility] Mar 14, 2018 11:23 AM VA-TOBACCO FORMER USER [facility] [place] [facility] Mar 14, 2018 11:23 AM VA-TOBACCO QUIT 15 YRS OR MORE [facility] Apr 04, 2017 12:30 PM QUIT TOBACCO USE > 7 YEARS AGO [facility] Apr 05, 2016 01:02 PM QUIT TOBACCO USE > 7 YEARS AGO quit in 1984 [facility] Encounter Notes: All associated encounter notes This section contains the clinical notes associated to the Encounter. Date/Time Encounter Note(s) Provider Source Nov 16, 2023 10:45 AM GERIATRIC MEDICINE NOTE: LOCAL TITLE: GEROFIT VCM/VVC/VOD TELEHEALTH SUPERVISED EXERCISE STANDARD TITLE: GERIATRIC MEDICINE NOTE DATE OF NOTE: NOV 16, 2023@10:45 ENTRY DATE: NOV 16, 2023@10:45:19 AUTHOR: DOUG ONEILL COSIGNER: URGENCY: STATUS: COMPLETED GEROFIT VVC/VCM/VOD Telehealth Supervised Exercise NOTE [place] Provided informed consent to receive treatment via Telehealth., [place] mailed and has been made verbally aware of [facility] [place] practices. 's Location: address on record unless specified below. Emergency Contact: on record unless specified below. [facility] today through [place] Virtual Gymnastic Teacher. Activities were focused on progression of their individual exercise prescription (cardiorespiratory fitness training, strength training, etc.) and group-based exercise sessions to include, but not limited to: flexibility training, balance training & functional circuit training. Exercise participation was supervised remotely by [facility] staff and any questions/concerns were addressed with the patient. Modifications were made to programming as appropriate to suit Veterans individual needs, preferences, and whole health concerns. /johanny/ VIOLETTA FINK LICENSE WAREHOUSING TECHNICIAN Signed: 11/16/2023 10:51 DOUG ONEILL [facility]
--- OUTSIDE RECORDS SUMMARY | 2024-03-05 06:38 | XMS_ITS | Encounter Summary ---
Author Name [place] Address [address] [place] [address] Care Team Providers Care Cloud Subject Matter Expert Name Role Phone LEN MENDOZA Primary Care [...] PART B Sep 23, 2014 PART B [id number] HARMONY MCCALL JR PATIENT MEDICARE (WNR) MEDICARE (M) PART A July 25, 2007 PART A [id number] [phone] HARMONY MCCALL JR PATIENT MEDICARE (WNR) MEDICARE (M) PART B July 25, 2007 PART B [id number] HARMONY MCCALL JR PATIENT MEDICARE (WNR) MEDICARE (M) PART A July 25, 2007 PART A [id number] [id number] HARMONY MCCALL JR PATIENT [facility] MEDICAL EXPENSE (OPT/PROF ) [facility] * Jan 24, 2015 [id number] 18 CAROLE MCCALL SPOUSE Selected Encounter This section includes the information on record at [place] for the Encounter. Date/Time Encounter Type Encounter Description Reason Provider Source Nov 28, 2023 08:00 AM EXERCISE CLASS HEALTH/WELLBEING SRVS ICD-10-CM Z72.3 Lack of physical exercise DAMON ONEILL IHE Encounter Template Text not used by CT Assessments - Encounter Diagnoses This section includes the primary and secondary diagnoses documented for the Encounter. Date/Time Primary/Secondary Diagnosis Diagnosis Name Provider Source Nov 28, 2023 11:36 AM PRIMARY Lack of physical exercise DAMON ONEILL [place] [facility] [place] [facility] Plan of Treatment: Future Appointments (+ [...] AMBULATORY - NONE [place] [facility] [place] [facility] Dec 06, 2023 11:00 AM AMBULATORY - NONE [place] Dec 11, 2023 10:00 AM AMBULATORY - NONE [place] [facility] [place] [facility] Dec 11, 2023 01:00 PM AMBULATORY - MEDICINE [place] [facility] [place] [facility] Dec 13, 2023 11:00 AM AMBULATORY - NONE [place] Dec 20, 2023 11:00 AM AMBULATORY - NONE [place] Dec 25, 2023 10:00 AM AMBULATORY - NONE [place] [facility] [place] [place] [facility] Dec 27, 2023 11:00 AM AMBULATORY - NONE [place] Jan 03, 2024 11:00 AM AMBULATORY - NONE [place] Jan 08, 2024 10:00 AM AMBULATORY - NONE [place] [facility] [place] [facility] Jan 10, 2024 11:00 AM AMBULATORY - NONE [place] Jan 17, 2024 11:00 AM AMBULATORY - NONE [place] Jan 21, 2024 11:00 AM AMBULATORY - MEDICINE [facility] [place] [facility] Jan 22, 2024 11:00 AM AMBULATORY - [place]ICINE [place] [facility] Jan 22, 2024 11:00 AM AMBULATORY - NONE [place] [facility] [place] [facility] Jan 24, 2024 11:00 AM AMBULATORY - NONE [place] Jan 31, 2024 11:00 AM AMBULATORY - NONE [place] Feb 07, 2024 11:00 AM [place]ORY - [place] Feb 14, 2024 11:00 AM AMBULATORY - NONE [place] Active, Pending, and Scheduled Orders This section includes a listing of several types of active, pending, and scheduled orders, including clinic medications orders, diagnostic test orders, procedure orders and consult orders; where the start date of the order is 45 days before the date of the Encounter or 45 days after the date of theEncounter. The data comes from all [place] treatment facilities. Test Date/Time Test Type Test Details Facility Name Jan 10, 2024 12:00 AM Laboratory - Chemi stry Order BASIC METABOLIC PANEL (non-fasting) BLOOD (SST-SERUM) [facility] Jan 10, 2024 12:00 AM Laboratory - Chemi stry Order LIVER FUNCTION BLOOD (SST-SERUM) [facility] [facility] Jan 10, 2024 12:00 AM Laboratory - Chemi stry Order LIPID PANEL, NON FASTING BLOOD (SST-SERUM) [facility] Jan 10, 2024 12:00 AM Laboratory - Chemi stry Order CBC BLOOD (LAV-BLOOD) [facility] Jan 10, 2024 12:00 AM Laboratory - Chemi stry Order TSH BLOOD (SST-SERUM) [facility] Jan 10, 2024 12:00 AM Laboratory - Chemi stry Order FERRITIN BLOOD (SST-SERUM) [facility] Jan 10, 2024 12:00 AM Laboratory - Chemi stry Order VITAMIN B12 BLOOD (SST-SERUM) [facility] [facility] Jan 10, 2024 12:00 AM Laboratory - Chemi stry Order IRON & TIBC PANEL BLOOD (SST-SERUM) SP [place] [facility] [place] [facility] Social History: Smoking Status (Most current) [...] PM VA-TOBACCO QUIT [address] [facility] Tobacco Use History This section includes a history of the smoking, or tobacco-related health factors, that were collected on or before the date of the Encounter. The data comes from the [place] facility where the Encounter took place. Date/Time Smoking Status/Tobacco Use Comment F acility Jan 26, 2023 01:30 PM VA-TOBACCO QUIT [address] [facility] [place] [facility] Jan 27, 2022 11:00 AM VA-TOBACCO FORMER USER [place] [facility] [place] [facility] Jan 27, 2022 11:00 AM VA-TOBACCO QUIT [address] [facility] [place] [facility] Sep 17, 2020 09:00 AM VA-TOBACCO FORMER USER [place] [facility] [place] [facility] Sep 17, 2020 09:00 AM VA-TOBACCO QUIT [address] [facility] [place] [facility] Jun 04, 2019 02:57 PM VA-TOBACCO NEVER USED CT [facility] [place] [place] [facility] Mar 14, 2018 11:23 AM VA-TOBACCO FORMER USER CT [facility] [place] [facility] Mar 14, 2018 11:23 AM VA-TOBACCO QUIT 15 YRS OR MORE [facility] [facility] Apr 04, 2017 12:30 PM QUIT TOBACCO USE > 7 YEARS AGO [facility] [facility] Apr 05, 2016 01:02 PM QUIT TOBACCO USE > 7 YEARS AGO [place] [address] [place] [facility] [place] [facility] Encounter Notes: All associated encounter notes This section contains the clinical notes associated to the Encounter. Date/Time Encounter Note(s) Provider Source Nov 28, 2023 11:35 AM GERIATRIC MEDICINE NOTE: LOCAL TITLE: GEROFIT VCM/VVC/VOD TELEHEALTH SUPERVISED EXERCISE STANDARD TITLE: GERIATRIC MEDICINE NOTE DATE OF NOTE: NOV 28, 2023@11:35 ENTRY DATE: NOV 28, 2023@11:35:10 AUTHOR: DOUG ONEILL COSIGNER: URGENCY: STATUS: COMPLETED GEROFIT VVC/VCM/VOD Telehealth Supervised Exercise NOTE [place] Provided informed consent to receive treatment via Telehealth., mailed and has been made verbally aware of [facility] [place] practices. [place]'s Location: address on record unless specified below. Emergency Contact: on record unless specified below. participated remotely in the Gerofit exercise program today through [place] Virtual Mining Speculator. Activities were focused on progression of their [...] whole health concerns. /johanny/ VIOLETTA FINK LICENSE HOURLY SHIFT MANAGER Signed: 11/28/2023 11:[address] [facility]
--- OUTSIDE RECORDS SUMMARY | 2024-03-05 06:38 | XMS_ITS | Encounter Summary ---
Author Name Department [place] Organization [place] Address [address] [place] [address] Care Team Providers Care Scientist/Engineer Name Role Phone LEN MENDOZA Primary Care [...] PART B Sep 23, 2014 PART B [id number] HARMONY MCCALL JR PATIENT MEDICARE (WNR) MEDICARE (M) PART A July 25, 2007 PART A [id number] HARMONY MCCALL JR PATIENT MEDICARE (WNR) MEDICARE (M) PART B July 25, 2007 PART B [id number] HARMONY MCCALL JR PATIENT MEDICARE (WNR) MEDICARE (M) PART A July 25, 2007 PART A [id number] [id number] [id number] HARMONY MCCALL JR PATIENT [facility] MEDICAL EXPENSE (OPT/PROF ) [facility] * Jan 24, 2015 [id number] 18 CAROLE MCCALL SPOUSE Selected Encounter This section includes the information on record at [place] for the Encounter. Date/Time Encounter Type Encounter Description Reason Provider Source Nov 19, 2023 08:00 AM EXERCISE CLASS HEALTH/WELLBEING SRVS ICD-10-CM Z72.3 Lack of physical exercise JANIE LAZCANO Erin Encounter Template Text not used by [place] Assessments - Encounter Diagnoses This section includes the primary and secondary diagnoses documented for the Encounter. Date/Time Primary/Secondary Diagnosis Diagnosis Name Provider Source Nov 19, 2023 11:27 AM PRIMARY Lack of physical exercise DAMON ONEILL [place] [facility] [place] [facility] Plan of Treatment: Future Appointments (+ [...] [facility] [place] [place] [facility] Dec 06, 2023 11:00 AM AMBULATORY - NONE [place] Dec 11, 2023 10:00 AM AMBULATORY - NONE [place] [facility] [place] [facility] Dec 11, 2023 01:00 PM AMBULATORY - MEDICINE [place] [facility] [place] [facility] Dec 13, 2023 11:00 AM AMBULATORY - NONE [place] Dec 20, 2023 11:00 AM AMBULATORY - NONE [place] Dec 25, 2023 10:00 AM AMBULATORY - NONE [place] [facility] [place] [facility] Dec 27, 2023 11:00 AM AMBULATORY - NONE [place] Jan 03, 2024 11:00 AM AMBULATORY - NONE [place] Jan 08, 2024 10:00 AM AMBULATORY - NONE [place] [facility] [place] [facility] Jan 10, 2024 11:00 AM AMBULATORY - NONE [place] Jan 17, 2024 11:00 AM AMBULATORY - NONE [place] Jan 21, 2024 11:00 AM AMBULATORY - MEDICINE [place] [place] [facility] Jan 22, 2024 11:00 AM AMBULATORY - [place]ICINE [place] [facility] Jan 22, 2024 11:00 AM AMBULATORY - NONE [place] [facility] [place] [facility] Jan 24, 2024 11:00 AM AMBULATORY [...] YRS OR MORE [place] [facility] [place] [facility] Tobacco Use History This section [...] CNTRL [place] [facility] Jan 27, 2022 11:00 AM VA-TOBACCO FORMER USER [facility] [place] [facility] Jan 27, 2022 11:00 AM VA-TOBACCO QUIT 15 YRS OR MORE [facility] [place] [facility] Sep 17, 2020 09:00 AM VA-TOBACCO FORMER USER [place] [facility] [place] [facility] Sep 17, 2020 09:00 AM VA-TOBACCO QUIT 15 YRS OR MORE [facility] [place] [facility] Jun 04, 2019 02:57 PM VA-TOBACCO NEVER USED [place] [facility] [facility] Mar 14, 2018 11:23 AM VA-TOBACCO FORMER USER [facility] [facility] Mar 14, 2018 11:23 AM VA-TOBACCO QUIT 15 YRS OR MORE [facility] Apr 04, 2017 12:30 PM QUIT TOBACCO USE > 7 YEARS AGO [facility] Apr 05, 2016 01:02 PM QUIT TOBACCO USE > 7 YEARS AGO quit in 1985 [facility] Encounter Notes: All associated encounter notes This section contains the clinical notes associated to the Encounter. Date/Time Encounter Note(s) Provider Source Nov 19, 2023 11:26 AM GERIATRIC MEDICINE NOTE: LOCAL TITLE: GEROFIT VCM/VVC/VOD TELEHEALTH SUPERVISED EXERCISE STANDARD TITLE: GERIATRIC MEDICINE NOTE DATE OF NOTE: NOV 19, 2023@11:26 ENTRY DATE: NOV 19, 2023@11:26:21 AUTHOR: DOUG ONEILL COSIGNER: URGENCY: STATUS: COMPLETED GEROFIT VVC/VCM/VOD Telehealth Supervised Exercise NOTE [place] Provided informed consent to receive treatment via Telehealth., [place] mailed and has been made verbally aware of [facility] [place] practices. 's Location: address on record unless specified below. Emergency Contact: on record unless specified below. participated remotely in the Gerofit exercise program today through [place] Virtual Technical Support Manager. Activities were focused on progression of their [...] whole health concerns. /johanny/ VIOLETTA FINK LICENSE ACQUISITION SPECIALIST Signed: 11/19/2023 11:33 DOUG ONEILL [facility]
--- OUTSIDE RECORDS SUMMARY | 2024-03-05 06:40 | XMS_ITS | Encounter Summary ---
Author Name [place] Organization [place] Address [address] [place] [address] Care Team Providers Care Department Secretary Name Role Phone LEN MENDOZA Primary Care [...] PART B Sep 23, 2014 PART B [id number] PK04 [phone] 4 HARMONY MCCALL JR PATIENT MEDICARE (WNR) MEDICARE (M) PART A July 25, 2007 PART A [id number] [id number] [phone] HARMONY MCCALL JR PATIENT MEDICARE (WNR) MEDICARE (M) PART B July 25, 2007 PART B [id number] [phone] HARMONY MCCALL JR PATIENT MEDICARE (WNR) MEDICARE (M) PART A July 25, 2007 PART A [id number] [id number] [phone] 4 HARMONY MCCALL JR PATIENT [facility] MEDICAL EXPENSE (OPT/PROF ) [facility] * Jan 24, 2015 [id number] [phone] CAROLE MCCALL SPOUSE Selected Encounter This section includes the information on record at [place] for the Encounter. Date/Time Encounter Type Encounter Description Reason Provider Source Dec 06, 2023 11:00 AM GROUP BEHAVE COUNS 2-10 WEIGHT MGMT & MOVE! PROG - GRP ICD-10-CM E66.09 Other obesity due to excess calories MIGUEL KRAMRE Erin Encounter Template Text not used by [place] Assessments - Encounter Diagnoses This section includes the primary and secondary diagnoses documented for the Encounter. Date/Time Primary/Secondary Diagnosis Diagnosis Name Provider Source Dec 06, 2023 02:04 PM PRIMARY Other obesity due to excess [...] Appointment Type Appointme nt Facility Name Dec 11, 2023 10:00 AM AMBULATORY - NONE [place] [facility] [facility] Dec 11, 2023 01:00 PM AMBULATORY - MEDICINE [place] [facility] Dec 13, 2023 11:00 AM AMBULATORY - NONE [place] Dec 20, 2023 11:00 AM AMBULATORY - NONE [place] Dec 25, 2023 10:00 AM AMBULATORY - NONE [facility] [place] [facility] Dec 27, 2023 11:00 AM AMBULATORY - NONE [place] Jan 03, 2024 11:00 AM AMBULATORY - NONE [place] Jan 08, 2024 10:00 AM AMBULATORY - NONE [facility] [place] [facility] Jan 10, 2024 11:00 AM AMBULATORY - NONE [place] Jan 17, 2024 11:00 AM AMBULATORY - NONE [place] Jan 21, 2024 11:00 AM AMBULATORY - MEDICINE [facility] [place] [facility] Jan 22, 2024 11:00 AM AMBULATORY - NONE [facility] [place] [facility] Jan 22, 2024 11:00 AM [facility] [place]IC[facility] [place] [facility] Jan 24, 2024 11:00 AM AMBULATORY - NONE [place] Jan 31, 2024 11:00 AM AMBULATORY - NONE [place] Feb 07, 2024 11:00 AM AMBULATORY - NONE [place] Feb 14, 2024 11:00 AM AMBULATORY - NONE [place] Feb 26, 2024 08:30 [facility] Feb 26, 2024 08:30 AM [facility] - [facility]IC[facility] [place] [facility] Feb 28, 2024 11:00 AM AMBULATORY - NONE [place] Active, Pending, and Scheduled Orders This section includes a listing of several types of active, pending, and scheduled orders, including clinic medications orders, diagnostic test orders, procedure orders and consult orders; where the start date of the order is 45 days before the date of the Encounter or 45 days after the date of theEncounter. The data comes from all [place] treatment facilities. Test Date/Time Test Type Test Details Facility Name Jan 10, 2024 12:00 AM Laboratory - Chemi stry Order CBC BLOOD (LAV-BLOOD) [facility] Jan 10, 2024 12:00 AM Laboratory - Chemi stry Order BASIC METABOLIC PANEL (non-fasting) BLOOD (SST-SERUM) [facility] Jan 10, 2024 12:00 AM Laboratory - Chemi stry Order LIPID PANEL, NON FASTING BLOOD (SST-SERUM) [facility] Jan 10, 2024 12:00 AM Laboratory - Chemi stry Order LIVER FUNCTION BLOOD (SST-SERUM) [facility] Jan 10, 2024 12:00 AM Laboratory - Chemi stry Order TSH BLOOD (SST-SERUM) [facility] Jan 10, 2024 12:00 AM Laboratory - Chemi stry Order FERRITIN BLOOD (SST-SERUM) [facility] Jan 10, 2024 12:00 AM Laboratory - Chemi stry Order VITAMIN B12 BLOOD (SST-SERUM) [facility] Jan 10, 2024 12:00 AM Laboratory - Chemi stry Order IRON & TIBC PANEL BLOOD (SST-SERUM) SP [place] [facility] [place] [facility] Encounter Notes: All associated encounter notes This section contains the clinical notes associated to the Encounter. Date/Time Encounter Note(s) Provider Source Dec 06, 2023 11:00 AM MOVE NOTE: LOCAL TITLE: WEIGHT MANAGEMENT/MOVE! OUTPATIENT GROUP NOTE STANDARD TITLE: MOVE NOTE DATE OF NOTE: DEC 06, 2023@11:00 ENTRY DATE: DEC 06, 2023@13:32:30 AUTHOR: SANTIAGO KRAMER EXP COSIGNER: URGENCY: STATUS: COMPLETED [place] participated in MOVE! Group Counseling via [facility] on December 06, 2023. The [place] was provided with information on [facility] and has given verbal consent to use group VVC services for their healthcare. The copy of the Group Telehealth Agreement has been mailed to the [place]. The Veterans location/emergency contact number were confirmed. The Emergency Call Relay Center ([phone]) was available. The visit was locked for security and privacy. [place] identified with 2 identifiers: [ ] Full Name [ ] Address Veterans attended the [facility] MOVE! group session on this date. MOVE! is a program designed to provide education about weight management skills to overweight and obese Veterans. Group members combined to lose 4.8 pounds since their last attended group. Group members began today's discussion expressing concern that their collective weight has been trending up in the last several months. Facilitators discussed meal planning and meal patterns. The healthy plate food groups were reviewed with examples of foods that Veterans should get more of and foods to limit. Group members shared their individual goals for the next week. The next [facility] MOVE! group meeting will be held on November @ 11:00am. 's reported weight was 211.0 lbs. and gained 0.5 pounds since last group attended. Dx: e66.09 z68.30 The session lasted for 1 hour in duration. /johanny/ SANTIAGO KRAMER STAFF DIETITIAN Signed: 12/06/2023 14:04 Receipt Acknowledged By: 12/14/2023 17:58 /johanny/ GORDON PATHAK, Ph.D. CLINICAL PSYCHOLOGIST SANTIAGO KRAMERFIELD
--- OUTSIDE RECORDS SUMMARY | 2024-03-05 06:40 | XMS_ITS ---
Author Name [facility] [place] Organization [place] Address [address] [place] [address] Care Team Providers Care Biofuels Manager Name Role Phone LEN MENDOZA Primary [...] PART B Sep 23, 2014 PART B [id number] HARMONY MCCALL JR PATIENT MEDICARE (WNR) MEDICARE (M) PART A July 25, 2007 PART A [id number] [phone] HARMONY MCCALL JR PATIENT MEDICARE (WNR) MEDICARE (M) PART B July 25, 2007 PART B [id number] HARMONY MCCALL JR PATIENT MEDICARE (WNR) MEDICARE (M) PART A July 25, 2007 PART A [id number] HARMONY MCCALL JR PATIENT [facility] MEDICAL EXPENSE (OPT/PROF ) [facility] [place] * Jan 24, 2015 [id number] CAROLE MCCALL SPOUSE Selected Encounter This section includes the information on record at [place] for the Encounter. Date/Time Encounter Type Encounter Description Reason Provider Source Dec 11, 2023 10:00 AM PT EDUCATION NOC GROUP NUTRITION/DIETETI CS-GROUP ICD-10-CM Z71.3 Dietary counseling and surveillance CURTIS GRACIA Erin Encounter Template Text not used by [place] Assessments - Encounter Diagnoses This section includes the primary and secondary diagnoses documented for the Encounter. Date/Time Primary/Secondary Diagnosis Diagnosis Name Provider Source Dec 11, 2023 12:47 PM PRIMARY Dietary counseling and surveillance CURTIS [facility] Plan of Treatment: Future Appointments (+ 6 [...] Appointment Type Appointme nt Facility Name Dec 13, 2023 11:00 AM AMBULATORY - NONE [place] Dec 20, 2023 11:00 AM AMBULATORY - NONE [place] Dec 25, 2023 10:00 AM AMBULATORY - NONE [facility] [place] [facility] Dec 27, 2023 11:00 AM AMBULATORY - NONE [place] Jan 03, 2024 11:00 AM AMBULATORY - NONE [place] Jan 08, 2024 10:00 AM AMBULATORY - NONE [facility] [place] [facility] Jan 10, 2024 11:00 AM AMBULATORY - NONE [place] Jan 17, 2024 11:00 AM AMBULATORY - NONE [place] Jan 21, 2024 11:00 AM AMBULATORY - MEDICINE [place] [facility] [place] [facility] Jan 22, 2024 11:00 AM AMBULATORY - MEDICINE [facility] [place] [facility] Jan 22, 2024 11:00 AM AMBULATORY - NONE [facility] [place] [facility] Jan 24, 2024 11:00 AM AMBULATORY - NONE [place] Jan 31, 2024 11:00 AM AMBULATORY - NONE [place] Feb 07, 2024 11:00 AM AMBULATORY - NONE [place] Feb 14, 2024 11:00 AM AMBULATORY - NONE [place] Feb 26, 2024 08:30 AM AMBULATORY - NONE [facility] Feb 26, 2024 08:30 AM AMBULATORY - MEDICINE [facility] [place] [facility] Feb 28, 2024 11:00 AM AMBULATORY - NONE [place] Active, Pending, and Scheduled Orders This section includes a listing of several types of active, pending, and scheduled orders, including clinic medications orders, diagnostic test orders, procedure orders and consult orders; where the start date of the order is 45 days before the date of the Encounter or 45 days after the date of theEncounter. The data comes from all [place] treatment facilities. Test Date/Time Test Type Test Details Facility Name Jan 10, 2024 12:00 AM Laboratory - Chemi stry Order BASIC METABOLIC PANEL (non-fasting) BLOOD (SST-SERUM) [facility] Jan 10, 2024 12:00 AM Laboratory - Chemi stry Order LIVER FUNCTION BLOOD (SST-SERUM) [facility] Jan 10, 2024 12:00 AM Laboratory - Chemi stry Order LIPID PANEL, NON FASTING BLOOD (SST-SERUM) [facility] Jan 10, 2024 12:00 AM Laboratory - Chemi stry Order CBC BLOOD (LAV-BLOOD) [facility] Jan 10, 2024 12:00 AM Laboratory - Chemi stry Order TSH BLOOD (SST-SERUM) [facility] Jan 10, 2024 12:00 AM Laboratory - Chemi stry Order FERRITIN BLOOD (SST-SERUM) [facility] Jan 10, 2024 12:00 AM Laboratory - Chemi stry Order VITAMIN B12 BLOOD (SST-SERUM) [facility] Jan 10, 2024 12:00 AM Laboratory - Chemi stry Order IRON & TIBC PANEL BLOOD (SST-SERUM) [facility] Social History: Smoking Status (Most current) [...] place. Date/Time Current Smoking Status Comment Mary ity Jan 26, 2023 01:30 PM VA-TOBACCO QUIT 15 YRS OR MORE [facility] Tobacco Use History This section includes a history of the smoking, or tobacco-related health factors, that were collected on or before the date of the Encounter. The data comes from the [place] facility where the Encounter took place. Date/Time Smoking Status/Tobacco Use Comment F acility Jan 26, 2023 01:30 PM VA-TOBACCO QUIT 15 YRS OR MORE [place] [facility] [place] [facility] Jan 27, 2022 11:00 AM VA-TOBACCO FORMER USER [place] [facility] [facility] Jan 27, 2022 11:00 AM VA-TOBACCO QUIT 15 YRS OR MORE [place] [facility] [place] [facility] Sep 17, 2020 09:00 AM VA-TOBACCO FORMER USER [place] [facility] [facility] Sep 17, 2020 09:00 AM VA-TOBACCO QUIT 15 YRS OR MORE [place] [facility] [place] [facility] Jun 04, 2019 02:57 PM VA-TOBACCO NEVER USED [place] [facility] [facility] Mar 14, 2018 11:23 AM VA-TOBACCO FORMER USER [place] [facility] [facility] Mar 14, 2018 11:23 AM VA-TOBACCO QUIT 15 YRS OR MORE [place] [facility] [place] [place] [facility] Apr 04, 2017 12:30 PM QUIT TOBACCO USE > 7 YEARS AGO [place] [facility] [place] [facility] Apr 05, 2016 01:02 PM QUIT TOBACCO USE > 7 YEARS AGO quit in 1984 [place] [facility] [facility] Encounter Notes: All associated encounter notes This section contains the clinical notes associated to the Encounter. Date/Time Encounter Note(s) Provider Source Dec 11, 2023 10:00 AM NUTRITION GROUP COUNSELING NOTE: LOCAL TITLE: NUTRITION GROUP NOTE STANDARD TITLE: NUTRITION GROUP COUNSELING NOTE DATE OF NOTE: DEC 11, 2023@10:00 ENTRY DATE: DEC 11, 2023@12:45:39 AUTHOR: CURTIS GRACIA [facility] COSIGNER: URGENCY: STATUS: COMPLETED Veterans participated in HTK via [facility] on: 12/11/23. The was provided with information on [facility] and has given verbal consent to use group [facility] services for their healthcare. The copy of the Group Telehealth Agreement has been mailed to the [place]. The [place]'s location/emergency contact number were confirmed. The Emergency Call Relay Center (E911) was available. The visit was locked for security and privacy. [place] identified with 2 identifiers: [x] Full Name [x] Address This class was taught by one Registered Dietitian with one co-host dietitian Dx: Z71.3 Time Spent: 60 minutes Participants: 14 Veterans, 2 collaterals Nutrition Education Topics: Intro to [facility] HTK, Nutrient content of recipe ingredients Cooking demonstration: Sheet Goldman Balsamic Chicken and Vegetables, Baked Balsamic Tofu Veterans attended the 76th class of the [facility] Healthy Teaching Kitchen. Today we went over the Group Telehealth Agreement, how HTK via [facility] works, food safety, knife safety, [...] it to the Veterans preference. Next Class: 12/25/23 Participation was: [ ] minimal [ x ] active and appropriate [ ] over-productive /es/ CURTIS GRACIA, MS, RDN, LDN Staff Dietitian Signed: 12/11/2023 12:49 CURTIS GRACIA [place] [facility]
--- OUTSIDE RECORDS SUMMARY | 2024-03-05 06:40 | XMS_ITS | Encounter Summary ---
Author Name [facility] [place] Address [address] [place] [address] Care Team Providers Care Plaster Die Maker Name Role Phone LEN MENDOZA Primary Care [...] PART B Sep 23, 2014 PART B [id number] [phone] HARMONY MCCALL JR PATIENT MEDICARE (WNR) MEDICARE (M) PART A July 25, 2007 PART A [id number] HARMONY MCCALL JR PATIENT MEDICARE (WNR) MEDICARE (M) PART B July 25, 2007 PART B [id number] [phone] HARMONY MCCALL JR PATIENT MEDICARE (WNR) MEDICARE (M) PART A July 25, 2007 PART A [id number] HARMONY MCCALL JR PATIENT [facility] MEDICAL EXPENSE (OPT/PROF ) [facility] [place] * Jan 24, 2015 [id number] 18 CAROLE MCCALL SPOUSE Selected Encounter This section includes the information on record at [place] for the Encounter. Date/Time Encounter Type Encounter Description Reason Provider Source Dec 03, 2023 02:00 PM COLLJ & INTERPJ DATA EA 30 D SLEEP MEDICINE ICD-10-CM G47.[address], [address] AMANTCURTIS Erin Encounter Template Text not used by [place] Assessments - Encounter Diagnoses This section includes the primary and secondary diagnoses documented for the Encounter. Date/Time Primary/Secondary Diagnosis Diagnosis Name Provider Source Dec 14, 2023 11:28 AM PRIMARY Sleep apnea, unspecified [facility] [place] Plan of Treatment: Future Appointments (+ 6 months) and Future Tests (+/- 45 days) The Plan of Treatment section includes future care activities for the patient from all [place] treatmentfacilities. This section includes future appointments and future orders which are active, pending or scheduled. Future Appointments This section includes appointments that were scheduled to occur 6 months from the date of the Encounter, up to a maximum of 20 appointments. The data comes from all [place] treatment facilities. Appointment Date/Time Appointment Type Appointme nt Facility Name Dec 06, 2023 11:00 AM AMBULATORY - NONE [place] Dec 11, 2023 10:00 AM AMBULATORY - NONE [facility] [place] [facility] Dec 11, 2023 01:00 PM AMBULATORY - MEDICINE [place] [facility] [place] [facility] Dec 13, 2023 11:00 AM AMBULATORY - NONE [place] Dec 20, 2023 11:00 AM AMBULATORY - NONE [place] Dec 25, 2023 10:00 AM AMBULATORY - NONE [facility] [place] [facility] Dec 27, 2023 11:00 AM AMBULATORY - NONE [place] Jan 03, 2024 11:00 AM AMBULATORY - NONE [place] Jan 08, 2024 10:00 AM AMBULATORY - NONE [facility] [place] [facility] Jan 10, 2024 11:00 AM AMBULATORY - NONE [place] Jan 17, 2024 11:00 AM AMBULATORY - NONE [place] Jan 21, 2024 11:00 AM AMBULATORY - MEDICINE [place] [place] [facility] Jan 22, 2024 11:00 AM AMBULATORY - NONE [facility] Jan 22, 2024 11:00 AM AMBULATORY - MEDICINE [place] [facility] Jan 24, 2024 11:00 AM AMBULATORY - NONE [place] Jan 31, 2024 11:00 AM AMBULATORY - NONE [place] Feb 07, 2024 11:00 AM AMBULATORY - NONE [place] Feb 14, 2024 11:00 AM AMBULATORY - NONE [place] Feb 26, 2024 08:30 AM AMBULATORY - NONE [facility] Feb 26, 2024 08:30 AM AMBULATORY - MEDICINE [place] [facility] Active, Pending, and Scheduled Orders This section includes a listing of several types of active, pending, and scheduled orders, including clinic medications orders, diagnostic test orders, procedure orders and consult orders; where the start date of the order is 45 days before the date of the Encounter or 45 days after the date of theEncounter. The data comes from all [place] treatment facilities. Test Date/Time Test Type Test Details Facility Name Jan 10, 2024 12:00 AM Laboratory - Chemi stry Order CBC BLOOD (LAV-BLOOD) [facility] GARCIAFaina [facility] Jan 10, 2024 12:00 AM Laboratory - Chemi stry Order BASIC METABOLIC PANEL (non-fasting) BLOOD (SST-SERUM) [facility] Jan 10, 2024 12:00 AM Laboratory - Chemi stry Order LIPID PANEL, NON FASTING BLOOD (SST-SERUM) [facility] Jan 10, 2024 12:00 AM Laboratory - Chemi stry Order LIVER FUNCTION BLOOD (SST-SERUM) [facility] Jan 10, 2024 12:00 AM Laboratory - Chemi stry Order TSH BLOOD (SST-SERUM) [facility] Jan 10, 2024 12:00 AM Laboratory - Chemi stry Order FERRITIN BLOOD (SST-SERUM) [facility] Jan 10, 2024 12:00 AM Laboratory - Chemi stry Order VITAMIN B12 BLOOD (SST-SERUM) [facility] Jan 10, 2024 12:00 AM Laboratory - Chemi stry Order IRON & TIBC PANEL BLOOD (SST-SERUM) [facility] [place] [facility] [place] [facility] Encounter Notes: All associated encounter notes This section contains the clinical notes associated to the Encounter. Date/Time Encounter Note(s) Provider Source Dec 03, 2023 02:29 PM RESPIRATORY THERAP Y NOTE: LOCAL TITLE: RESPIRATORY THERAPY NOTE(BLANK) STANDARD TITLE: RESPIRATORY THERAPY NOTE DATE OF NOTE: DEC 03, 2023@14:29 ENTRY DATE: DEC 03, 2023@14:29:59 AUTHOR: CURTIS PUCKETT EXP COSIGNER: URGENCY: STATUS: COMPLETED [place] diagnosed with sleep apnea seen for follow up regarding his APAP 5-20 cmH2O. We reviewed compliance data. He has been non-compliant using only 16/45 days. states he used his device 16 days then stopped and felt no different. He is aware his apnea is classified as mild. He also stated he had nights where the pressure went very high and the mask leaked. Likely caused by positional mask leak with further explanation. [place] has also lost weight since initial testing and feels this may have reversed his sleep apnea. Radha was offered and is agreeable [facility] Compliance Report Usage 10/23/2023 - 12/03/2023 Usage days 16/42 days (38%) >= 4 hours 4 days (10%) < 4 hours 12 days (29%) Usage hours 42 hours 33 minutes Average usage (total days) 1 hours 1 minutes Average usage (days used) 2 hours 40 minutes Median usage (days used) 2 hours 1 minutes Total used hours (value since last reset - 12/03/2023) 42 hours AirSense 11 AutoSet Serial number [id number] Mode AutoSet Min Pressure 5 cmH2O Max [...] (0%) /johanny/ CURTIS PUCKETT RESPIRATORY THERAPIST Signed: 12/03/2023 14:40 CURTIS PUCKETT [place]
--- OUTSIDE RECORDS SUMMARY | 2024-03-05 06:40 | XMS_ITS | Encounter Summary ---
Author Name Department [place] Organization [place] Address [address] [place] [address] Care Team Providers Care Chronic Disease Epidemiologist Name Role Phone LEN MENDOZA Primary Care [...] PART B Sep 23, 2014 PART B [id number] HARMONY MCCALL JR PATIENT MEDICARE (WNR) MEDICARE (M) PART A July 25, 2007 PART A [id number] [phone] HARMONY MCCALL JR PATIENT MEDICARE (WNR) MEDICARE (M) PART B July 25, 2007 PART B [id number] HARMONY MCCALL JR PATIENT MEDICARE (WNR) MEDICARE (M) PART A July 25, 2007 PART A [id number] HARMONY MCCALL JR PATIENT [facility] MED[facility] (OPT[facility]PROF ) [facility] [place] * Jan 24, 2015 [id number] 18 CAROLE MCCALL SPOUSE Selected Encounter This section includes the information on record at [place] for the Encounter. Date/Time Encounter Type Encounter Description Reason Provider Source Dec 05, 2023 10:23 AM EXERCISE CLASS HEALTH/WELLBEING SRVS ICD-10-CM Z72.3 Lack of physical exercise JANIE LAZCANO [facility] Encounter Template Text not used by [place] Assessments - Encounter Diagnoses This section includes the primary and secondary diagnoses documented for the Encounter. Date/Time Primary/Secondary Diagnosis Diagnosis Name Provider Source Dec 05, 2023 10:44 AM PRIMARY Lack of physical exercise JANIE LAZCANO [facility] Plan of Treatment: Future Appointments [...] AMBULATORY - NONE [facility] [place] [facility] Dec 11, 2023 01:00 PM AMBULATORY - MEDICINE [place] C [facility] [place] [facility] Dec 13, 2023 11:00 AM AMBULATORY - NONE [place] Dec 20, 2023 11:00 AM AMBULATORY - NONE [place] Dec 25, 2023 10:00 AM AMBULATORY - NONE [place] [facility] [place] [facility] Dec 27, 2023 11:00 AM AMBULATORY - NONE [place] Jan 03, 2024 11:00 AM AMBULATORY - NONE [place] Jan 08, 2024 10:00 AM AMBULATORY - NONE [place] [facility] [place] [facility] Jan 10, 2024 11:00 AM AMBULATORY - NONE [place] Jan 17, 2024 11:00 AM AMBULATORY - NONE [place] Jan 21, 2024 11:00 AM AMBULATORY - MEDICINE [place] [place] [facility] Jan 22, 2024 11:00 AM AMBULATORY - [place]ICINE [place] [facility] Jan 22, 2024 11:00 AM AMBULATORY - NONE [facility] Jan 24, 2024 11:00 AM AMBULATORY - NONE [place] Jan 31, 2024 11:00 AM AMBULATORY - NONE [place] Feb 07, 2024 11:00 AM AMBULATORY - NONE [place] Feb 14, 2024 11:00 AM AMBULATORY - NONE [place] Feb 26, 2024 08:30 AM AMBULATORY - NONE [facility] Feb 26, 2024 08:30 AM AMBULATORY - MEDICINE [facility] Active, Pending, and Scheduled Orders This section includes a listing of several types of active, pending, and scheduled orders, including clinic medications orders, diagnostic test orders, procedure orders and consult orders; where the start date of the order is 45 days before the date of the Encounter or 45 days after the date of theEncounter. The data comes from all [place] treatment facilities. Test Date/Time Test Type Test Details Facility Name Jan 10, 2024 12:00 AM Laboratory - Chemi stry Order BASIC METABOLIC PANEL (non-fasting) BLOOD (SST-SERUM) [facility] Jan 10, 2024 12:00 AM Laboratory - Chemi stry Order CBC BLOOD (LAV-BLOOD) [facility] Jan 10, 2024 12:00 AM Laboratory - Chemi stry Order LIPID PANEL, NON FASTING BLOOD (SST-SERUM) [facility] Jan 10, 2024 12:00 AM Laboratory - Chemi stry Order TSH BLOOD (SST-SERUM) [facility] Jan 10, 2024 12:00 AM Laboratory - Chemi stry Order LIVER FUNCTION BLOOD (SST-SERUM) [facility] Jan 10, 2024 12:00 AM Laboratory - Chemi stry Order FERRITIN BLOOD (SST-SERUM) [facility] Jan 10, 2024 12:00 AM Laboratory - Chemi stry Order VITAMIN B12 BLOOD (SST-SERUM) [facility] Jan 10, 2024 12:00 AM Laboratory - Chemi stry Order IRON & TIBC PANEL BLOOD (SST-SERUM) [place] [facility] [place] [facility] Social History: Smoking Status (Most [...] PM VA-TOBACCO QUIT 15 YRS OR MORE [facility] Tobacco Use History This section includes a history of the smoking, or tobacco-related health factors, that were collected on or before the date of the Encounter. The data comes from the [place] facility where the Encounter took place. Date/Time Smoking Status/Tobacco Use Comment F acility Jan 26, 2023 01:30 PM VA-TOBACCO QUIT 15 YRS OR MORE [place] [facility] [place] [facility] Jan 27, 2022 11:00 AM VA-TOBACCO FORMER USER [place] [facility] [place] [facility] Jan 27, 2022 11:00 AM VA-TOBACCO QUIT 15 YRS OR MORE [place] [facility] [place] [facility] Sep 17, 2020 09:00 AM VA-TOBACCO FORMER USER [place] [facility] [place] [facility] Sep 17, 2020 09:00 AM VA-TOBACCO QUIT 15 YRS OR MORE [place] [facility] [place] [facility] Jun 04, 2019 02:57 PM VA-TOBACCO NEVER USED [place] [facility] [place] [facility] Mar 14, 2018 11:23 AM VA-TOBACCO FORMER USER [place] [facility] [place] [facility] Mar 14, 2018 11:23 AM VA-TOBACCO QUIT 15 YRS OR MORE [place] [facility] [place] [facility] Apr 04, 2017 12:30 PM QUIT TOBACCO USE > 7 YEARS AGO [place] [facility] [place] [facility] Apr 05, 2016 01:02 PM QUIT TOBACCO USE > 7 YEARS AGO quit in 1984 [place] [facility] [place] [facility] Encounter Notes: All associated encounter notes This section contains the clinical notes associated to the Encounter. Date/Time Encounter Note(s) Provider Source Dec 05, 2023 10:31 AM GERIATRIC MEDICINE NOTE: LOCAL TITLE: GEROFIT VCM/VVC/VOD TELEHEALTH SUPERVISED EXERCISE STANDARD TITLE: GERIATRIC MEDICINE NOTE DATE OF NOTE: DEC 05, 2023@10:31 ENTRY DATE: DEC 05, 2023@10:32:05 AUTHOR: JANIE LAZCANO EXP COSIGNER: URGENCY: STATUS: COMPLETED Provided informed consent to receive treatment via Telehealth., mailed and has been made verbally aware of [facility] [place] practices. 's Location: address on record unless specified below. Emergency Contact: on record unless specified below. [place] participated remotely in the Gerofit exercise program today through [place] [employer]. Activities were focused on progression of their [...] /es/ Janie Lazcano PT,DPT PHYSICAL THERAPIST Signed: 12/05/2023 10:56 JANIE LAZCANO [place] [facility]
--- OUTSIDE RECORDS SUMMARY | 2024-03-05 06:41 | XMS_ITS | Encounter Summary ---
Author Name [facility] [place] Address [address] [place] [address] Care Team Providers Care Scudding Inspector Name Role Phone LEN MENDOZA Primary Care [...] PART B Sep 23, 2014 PART B [id number] [id number] HARMONY MCCALL JR PATIENT MEDICARE (WNR) MEDICARE (M) PART A July 25, 2007 PART A [id number] HARMONY MCCALL JR PATIENT MEDICARE (WNR) MEDICARE (M) PART B July 25, 2007 PART B [id number] [id number] [phone] [id number] HARMONY MCCALL JR PATIENT MEDICARE (WNR) MEDICARE (M) PART A July 25, 2007 PART A [id number] [id number] HARMONY MCCALL JR PATIENT [facility] MEDICAL EXPENSE (OPT/PROF ) [facility] [place] * Jan 24, 2015 [id number] CAROLE MCCALL SPOUSE Selected Encounter This section includes the information on record at [place] for the Encounter. Date/Time Encounter Type Encounter Description Reason Pro vider Source IHE Encounter Template Text not used by [place]
--- OUTSIDE RECORDS SUMMARY | 2024-03-05 06:41 | XMS_ITS | Encounter Summary ---
Author Name [facility] [place] Address [address] [place] [id number] Care Team Providers Care Production Maintenance Technician Name Role Phone LEN MENDOZA Primary [...] PART B Sep 23, 2014 PART B [id number] HARMONY MCCALL JR PATIENT MEDICARE (WNR) MEDICARE (M) PART A July 25, 2007 PART A [id number] [phone] HARMONY MCCALL JR PATIENT MEDICARE (WNR) MEDICARE (M) PART B July 25, 2007 PART B [id number] [phone] HARMONY MCCALL JR PATIENT MEDICARE (WNR) MEDICARE (M) PART A July 25, 2007 PART A [id number] HARMONY MCCALL JR PATIENT [facility] MEDICAL EXPENSE (OPT/PROF ) [facility] * Jan 24, 2015 [id number] 18 CAROLE MCCALL SPOUSE Selected Encounter This section includes the information on record at [place] for the Encounter. Date/Time Encounter Type Encounter Description Reason Provider Source Dec 13, 2023 11:00 AM HLTH BHV IVNTJ GRP EA ADDL WEIGHT MGMT & MOVE! PROG - GRP ICD-10-CM Z68.30 Body mass index [BMI] 30.0-30.9, adult GORDON PATHAK [facility] Encounter Template Text not used by [place] Assessments - Encounter Diagnoses This section includes the primary and secondary diagnoses documented for the Encounter. Date/Time Primary/Secondary Diagnosis Diagnosis Name Provider Source Dec 14, 2023 06:09 PM PRIMARY Body mass index [BMI] 30.0-30.9, adult GORDON PATHAK [place] Dec 14, 2023 06:09 PM SECONDARY Other obesity due to excess calories GORDON PATHAK [place] Plan of Treatment: Future Appointments (+ 6 [...] Appointment Type Appointme nt Facility Name Dec 20, 2023 11:00 AM AMBULATORY - [...] [place] [place] [facility] Jan 24, 2024 11:00 AM AMBULATORY - NONE [place] Jan 31, 2024 11:00 AM AMBULATORY - NONE [place] Feb 07, 2024 11:00 AM AMBULATORY - NONE [place] Feb 14, 2024 11:00 AM AMBULATORY - NONE [place] Feb 26, 2024 08:30 AM [facility]UL[facility] NONE [facility] Feb 26, 2024 08:30 AM [facility] Feb 28, 2024 11:00 AM AMBULATORY - NONE [place] Active, Pending, and Scheduled Orders This [...] METABOLIC PANEL (non-fasting) BLOOD (SST-SERUM) [facility] Jan 10, 2024 12:00 AM Laboratory - Chemi stry Order LIVER FUNCTION BLOOD (SST-SERUM) [facility] Jan 10, 2024 12:00 AM Laboratory - Chemi stry Order LIPID PANEL, NON FASTING BLOOD (SST-SERUM) [facility] Jan 10, 2024 12:00 AM Laboratory - Chemi stry Order CBC BLOOD (LAV-BLOOD) [facility] Jan 10, 2024 12:00 AM Laboratory - Chemi stry Order TSH BLOOD (SST-SERUM) [facility] Jan 10, 2024 12:00 AM Laboratory - Chemi stry Order FERRITIN BLOOD (SST-SERUM) [facility] Jan 10, 2024 12:00 AM Laboratory - Chemi stry Order VITAMIN B12 BLOOD (SST-SERUM) [facility] Jan 10, 2024 12:00 AM Laboratory - Chemi stry Order IRON & TIBC PANEL BLOOD (SST-SERUM) [facility] [place] [facility] Vital Signs: All taken on the encounter date This section contains inpatient and outpatient Vital Signs collected on the date of the Encounter. Date/Time Temperature Pulse Blood Pressure Respiratory Rate SP02 Pain Height Weight Body Mass Index Source Dec 13, 2023 11:19 AM 210.1 32 [place] Encounter Notes: All associated encounter notes This section contains the clinical notes associated to the Encounter. Date/Time Encounter Note(s) Provider Source Dec 14, 2023 06:04 PM MOVE NOTE: LOCAL TITLE: WEIGHT MANAGEMENT/MOVE! OUTPATIENT GROUP NOTE STANDARD TITLE: MOVE NOTE DATE OF NOTE: DEC 14, 2023@18:04 ENTRY DATE: DEC 14, 2023@18:04:59 AUTHOR: GORDON PATHAK COSIGNER: URGENCY: STATUS: COMPLETED participated in MOVE! Group Counseling via VVC on December 13, 2023. The [place] was provided with information on VVC and has given verbal consent to use group VVC services for their healthcare. The copy of the Group Telehealth Agreement has been mailed to the [place]. The Veterans location/emergency contact number were confirmed. The Emergency Call Relay Center (E911) was available. The visit was locked for security and privacy. [place] identified with 2 identifiers: [ ] Full Name [ ] Address Veterans attended the [facility] MOVE! group session on this date. MOVE! is a program designed to provide education about weight management skills to overweight and obese Veterans. Group members combined to gain 4.6 pounds since their last attended group. Group members shared that they enjoy this group so that they can socialize with one another and receive weight loss support from others who are experiencing the same challenges. Veterans talked about making significant changes to their eating and exercising years ago when they lost most of their weight. Currently, they are recognizing that they are slipping somewhat and no longer tracking food or measuring portion sizes as careful, thus resulting in small amounts of weight gain over the past several months. Group members talked about changes that they are willing to implement this week and group members shared their individual goals for the next week. The next [facility] MOVE! group meeting will be held on November @ 11:00am. [place]'s reported weight was 210.1 lbs. and lost 0.9 pounds since last group attended. Dx: Obesity d/t Excess Calories Obesity E66.09 BMI 30.0-30.9 The session lasted for 1 hour in duration. /johanny/ GORDON PATHAK, Ph.D. CLINICAL PSYCHOLOGIST Signed: 12/14/2023 18:17 Receipt Acknowledged By: 12/18/2023 08:47 /johanny/ SANTIAGO KRAMER STAFF DIETITIAN GORDON PATHAK
--- OUTSIDE RECORDS SUMMARY | 2024-03-05 06:42 | XMS_ITS ---
Author Name [facility] [place] Address [address] [place] [address] Care Team Providers Care Bookmaker'S Clerk Name Role Phone LEN MENDOZA Primary [...] PART B Sep 23, 2014 PART B [id number] HARMONY MCCALL JR PATIENT MEDICARE (WNR) MEDICARE (M) PART A July 25, 2007 PART A [id number] [phone] HARMONY MCCALL JR PATIENT MEDICARE (WNR) MEDICARE (M) PART B July 25, 2007 PART B [id number] [phone] HARMONY MCCALL JR PATIENT MEDICARE (WNR) MEDICARE (M) PART A July 25, 2007 PART A [id number] [phone] HARMONY MCCALL JR PATIENT COUNT INCLUDES THE [facility] MEDICAL EXPENSE (OPT/PROF ) [facility] * Jan 24, 2015 [id number] CAROLE MCCALL SPOUSE Selected Encounter This section includes the information on record at [place] for the Encounter. Date/Time Encounter Type Encounter Description Reason Provider Source Dec 25, 2023 10:00 AM PT EDUCATION NOC GROUP NUTRITION/DIETETI CS-GROUP ICD-10-CM Z71.3 Dietary counseling and surveillance CURTIS GRACIA [place] Encounter Template Text not used by [place] Assessments - Encounter Diagnoses This section includes the primary and secondary diagnoses documented for the Encounter. Date/Time Primary/Secondary Diagnosis Diagnosis Name Provider Source Dec 25, 2023 12:57 PM PRIMARY Dietary counseling and surveillance CURTIS GRACIA [facility] Plan of Treatment: Future Appointments (+ 6 [...] Appointment Type Appointme nt Facility Name Dec 27, 2023 11:00 AM AMBULATORY - NONE [place] Jan 03, 2024 11:00 AM AMBULATORY - NONE [place] Jan 08, 2024 10:00 AM AMBULATORY - NONE [place] [facility] Jan 10, 2024 11:00 AM AMBULATORY - NONE [place] Jan 17, 2024 11:00 AM AMBULATORY - NONE [place] Jan 21, 2024 11:00 AM AMBULATORY - MEDICINE [facility] [place] [facility] Jan 22, 2024 11:00 AM AMBULATORY - MEDICINE [facility] [place] [facility] Jan 22, 2024 11:00 AM AMBULATORY - NONE [place] [facility] [place] [facility] Jan 24, 2024 11:00 AM AMBULATORY - NONE [place] Jan 31, 2024 11:00 AM AMBULATORY - NONE [place] Feb 07, 2024 11:00 AM AMBULATORY - NONE [place] Feb 14, 2024 11:00 AM AMBULATORY - NONE [place] Feb 26, 2024 08:30 AM [facility] Feb 26, 2024 08:30 AM [facility] Feb 28, 2024 11:00 AM AMBULATORY [...] of theEncounter. The data comes from all [facility] facilities. Test Date/Time Test Type Test Details Facility Name Jan 10, 2024 12:00 AM Laboratory - Chemi stry Order BASIC METABOLIC PANEL (non-fasting) BLOOD (SST-SERUM) [facility] Jan 10, 2024 12:00 AM Laboratory - Chemi stry Order CBC BLOOD (LAV-BLOOD) [facility] Jan 10, 2024 12:00 AM Laboratory - Chemi stry Order LIPID PANEL, NON FASTING BLOOD (SST-SERUM) [facility] Jan 10, 2024 12:00 AM Laboratory - Chemi stry Order TSH BLOOD (SST-SERUM) [facility] Jan 10, 2024 12:00 AM Laboratory - Chemi stry Order LIVER FUNCTION BLOOD (SST-SERUM) [facility] Jan 10, 2024 12:00 AM Laboratory - Chemi stry Order FERRITIN BLOOD (SST-SERUM) [facility] Jan 10, 2024 12:00 AM Laboratory - Chemi stry Order VITAMIN B12 BLOOD (SST-SERUM) [facility] Jan 10, 2024 12:00 AM Laboratory - Chemi stry Order IRON & TIBC PANEL BLOOD (SST-SERUM) [facility] Social History: Smoking Status (Most current) and Tobacco Use (All prior to encounter date) This section includes the most current, and the historical, smoking and tobacco- related health factors from the [place] facility where the Encounter took place. Current Smoking Status This section includes the most current smoking, or tobacco-related health factor, from the [place] facility where the Encounter took place. Date/Time Current Smoking Status Comment Mary ity Jan 26, 2023 01:30 PM [facility]-TOBACCO [facility] 15 YRS [facility] Tobacco Use History This section includes a history of the smoking, or tobacco-related health factors, that were collected on or before the date of the Encounter. The data comes from the [place] facility where the Encounter took place. Date/Time Smoking Status/Tobacco Use Comment F acility Jan 26, 2023 01:30 PM VA-TOBACCO QUIT 15 YRS OR MORE [place] [facility] [place] [facility] Jan 27, 2022 11:00 AM VA-TOBACCO FORMER USER [place] [facility] [place] [facility] Jan 27, 2022 11:00 AM VA-TOBACCO QUIT 15 YRS OR MORE [place] [facility] [place] [facility] Sep 17, 2020 09:00 AM VA-TOBACCO FORMER USER [place] [facility] [place] [facility] Sep 17, 2020 09:00 AM VA-TOBACCO QUIT 15 YRS OR MORE [place] [facility] [place] [facility] Jun 04, 2019 02:57 PM VA-TOBACCO NEVER USED [place] [facility] [place] [facility] Mar 14, 2018 11:23 AM VA-TOBACCO FORMER USER [place] [facility] [place] [facility] Mar 14, 2018 11:23 AM VA-TOBACCO QUIT 15 YRS OR MORE [facility] [place] [facility] Apr 04, 2017 12:30 PM QUIT TOBACCO USE > 7 YEARS AGO [facility] [place] [facility] Apr 05, 2016 01:02 PM QUIT TOBACCO USE > 7 YEARS AGO quit in 1984 [place] [facility] [place] [facility] Encounter Notes: All associated encounter notes This section contains the clinical notes associated to the Encounter. Date/Time Encounter Note(s) Provider Source Dec 25, 2023 10:00 AM NUTRITION GROUP COUNSELING NOTE: LOCAL TITLE: NUTRITION GROUP NOTE STANDARD TITLE: NUTRITION GROUP COUNSELING NOTE DATE OF NOTE: DEC 25, 2023@10:00 ENTRY DATE: DEC 25, 2023@12:56:22 AUTHOR: CURTIS GRACIA EXP COSIGNER: URGENCY: STATUS: COMPLETED Veterans participated in HTK via VVC on: 12/25/23. The [place] was provided with information on VVC and has given verbal consent to use group [facility] services for their healthcare. The copy of the Group Telehealth Agreement has been mailed to the [place]. The [place]'s location/emergency contact number were confirmed. The Emergency Call Relay Center (E911) was available. The visit was locked for security and privacy. identified with 2 identifiers: [x] Full Name [x] Address This class was taught by one Registered Dietitian with one co-host dietitian Dx: Z71.3 Time Spent: 60 minutes Participants: 8 Veterans, 1 collaterals Nutrition Education Topics: Intro to [facility] HTK, Nutrient content of recipe ingredients Cooking demonstration: Slow Cooker Apple Sauce or Apple Butter, Pecan Apple Chickpea Salad, Homemade Fish Sticks Veterans attended the 77th class of the [facility] Healthy Teaching Kitchen. Today we went over the Group Telehealth Agreement, how HTK via [facility] works, food safety, knife safety, [...] it to the Veterans preference. Next Class: 01/08/24 Participation was: [ ] minimal [ x ] active and appropriate [ ] over-productive /es/ CURTIS GRACIA MS, RDN, LDN Staff Dietitian Signed: 12/25/2023 12:58 CURTIS GRACIA [place] [facility]
--- OUTSIDE RECORDS SUMMARY | 2024-03-05 06:44 | XMS_ITS | Encounter Summary ---
Author Name [facility] [place] Organization [place] Address [address] [place] [address] Care Team Providers Care Pelletizer Operator Name Role Phone LEN MENDOZA Primary [...] PART B Sep 23, 2014 PART B [id number] HARMONY MCCALL JR PATIENT MEDICARE (WNR) MEDICARE (M) PART A July 25, 2007 PART A [id number] [phone] HARMONY MCCALL JR PATIENT MEDICARE (WNR) MEDICARE (M) PART B July 25, 2007 PART B [id number] HARMONY MCCALL JR PATIENT MEDICARE (WNR) MEDICARE (M) PART A July 25, 2007 PART A [id number] [id number] [phone] [id number] HARMONY MCCALL JR PATIENT [facility] MEDICAL EXPENSE (OPT/PROF ) [facility] * Jan 24, 2015 [id number] 18 CAROLE MCCALL SPOUSE Selected Encounter This section includes the information on record at [place] for the Encounter. Date/Time Encounter Type Encounter Description Reason Provider Source Jan 08, 2024 10:00 AM PT EDUCATION NOC GROUP NUTRITION/DIETETI CS-GROUP ICD-10-CM Z71.3 Dietary counseling and surveillance CURTIS GRACIA Erin Encounter Template Text not used by [place] Assessments - Encounter Diagnoses This section includes the primary and secondary diagnoses documented for the Encounter. Date/Time Primary/Secondary Diagnosis Diagnosis Name Provider Source Jan 08, 2024 12:44 PM PRIMARY Dietary counseling and surveillance CURTIS GRACIA [facility] Plan of Treatment: Future Appointments [...] Appointment Type Appointme nt Facility Name Jan 10, 2024 11:00 AM AMBULATORY - NONE [place] Jan 17, 2024 11:00 AM AMBULATORY - NONE [place] Jan 21, 2024 11:00 AM [facility] Jan 22, 2024 11:00 AM [facility] Jan 22, 2024 11:00 AM AMBULATORY - [facility]IC[facility] [place] [facility] Jan 24, 2024 11:00 AM AMBULATORY - NONE [place] Jan 31, 2024 11:00 AM AMBULATORY - NONE [place] Feb 07, 2024 11:00 AM AMBULATORY - NONE [place] Feb 14, 2024 11:00 AM AMBULATORY - NONE [place] Feb 26, 2024 08:30 AM [facility] Feb 26, 2024 08:30 AM AMBULATORY - [facility]ICINE [place] [place] [facility] Feb 28, 2024 11:00 AM AMBULATORY [...] of theEncounter. The data comes from all [facility] facilities. Test Date/Time Test Type Test Details Facility Name Jan 10, 2024 12:00 AM Laboratory - Chemi stry Order CBC BLOOD (LAV-BLOOD) [facility] Jan 10, 2024 12:00 AM Laboratory - Chemi stry Order BASIC METABOLIC PANEL (non-fasting) BLOOD (SST-SERUM) [facility] Jan 10, 2024 12:00 AM Laboratory - Chemi stry Order LIPID PANEL, NON FASTING BLOOD (SST-SERUM) [facility] Jan 10, 2024 12:00 AM Laboratory - Chemi stry Order LIVER FUNCTION BLOOD (SST-SERUM) [facility] Jan 10, 2024 12:00 AM Laboratory - Chemi stry Order TSH BLOOD (SST-SERUM) [facility] Jan 10, 2024 12:00 AM Laboratory - Chemi stry Order FERRITIN BLOOD (SST-SERUM) [facility] Jan 10, 2024 12:00 AM Laboratory - Chemi stry Order VITAMIN B12 BLOOD (SST-SERUM) [facility] Jan 10, 2024 12:00 AM Laboratory - Chemi stry Order IRON & TIBC PANEL BLOOD (SST-SERUM) [facility] Social History: Smoking Status (Most current) [...] 26, 2023 01:30 PM VA-TOBACCO FORMER USER [facility] Tobacco Use History This section includes a history of the smoking, or tobacco-related health factors, that were collected on or before the date of the Encounter. The data comes from the [place] facility where the Encounter took place. Date/Time Smoking Status/Tobacco Use Comment F acility Jan 26, 2023 01:30 PM VA-TOBACCO QUIT 15 YRS OR MORE [place] [facility] Jan 27, 2022 11:00 AM VA-TOBACCO FORMER USER [place] [facility] Jan 27, 2022 11:00 AM VA-TOBACCO QUIT 15 YRS OR MORE [place] [facility] Sep 17, 2020 09:00 AM VA-TOBACCO FORMER USER [place] [facility] Sep 17, 2020 09:00 AM VA-TOBACCO QUIT 15 YRS OR MORE [place] [facility] Jun 04, 2019 02:57 PM VA-TOBACCO NEVER USED [place] [facility] Mar 14, 2018 11:23 AM VA-TOBACCO FORMER USER [place] [facility] Mar 14, 2018 11:23 AM VA-TOBACCO QUIT 15 YRS OR MORE [place] [facility] Apr 04, 2017 12:30 PM QUIT TOBACCO USE > 7 YEARS AGO [place] [facility] Apr 05, 2016 01:02 PM QUIT TOBACCO USE > 7 YEARS AGO quit in 1984 [place] [facility] Encounter Notes: All associated encounter notes This section contains the clinical notes associated to the Encounter. Date/Time Encounter Note(s) Provider Source Jan 08, 2024 12:40 PM NUTRITION GROUP COUNSELING NOTE: LOCAL TITLE: NUTRITION GROUP NOTE STANDARD TITLE: NUTRITION GROUP COUNSELING NOTE DATE OF NOTE: JAN 08, 2024@12:40 ENTRY DATE: JAN 08, 2024@12:43:11 AUTHOR: CURTIS GRACIA EXP COSIGNER: URGENCY: STATUS: COMPLETED Veterans participated in HTK via VVC on: 01/08/24. The [place] was provided with information on VVC and has given verbal consent to use group VVC services for their healthcare. The copy of the Group Telehealth Agreement has been mailed to the [place]. The [place]'s location/emergency contact number were confirmed. The Emergency Call Relay Center (E911) was available. The visit was locked for security and privacy. identified with 2 identifiers: [x] Full Name [x] Address This class was taught by one Registered Dietitian with one co-host dietitian Dx: Z71.3 Time Spent: 60 minutes Participants: 13 Veterans, 2 collaterals Nutrition Education Topics: Intro to [facility] HTK, Nutrient content of recipe ingredients Cooking demonstration: [place] Pumpkin Pasta with [place] Sausage, Savory Roasted [place] Squash Veterans attended the 78th class of the [facility] Healthy Teaching Kitchen. Today we went over the Group Telehealth Agreement, how HTK via [facility] works, food safety, knife safety, [...] it to the Veterans preference. Next Class: 01/29/24 Participation was: [ ] minimal [ x ] active and appropriate [ ] over-productive /es/ CURTIS GRACIA, MS, RDN, LDN Staff Dietitian Signed: 01/08/2024 12:47 CURTIS GRACIA [place] [facility]
--- OUTSIDE RECORDS SUMMARY | 2024-03-05 06:44 | XMS_ITS | Encounter Summary ---
Author Name [facility] [place] [facility] [place] Address [address] [place] [id number] Care Team Providers Care Granite Polisher Apprentice Name Role Phone LEN MENDOZA Primary [...] PART B Sep 23, 2014 PART B [id number] HARMONY MCCALL JR PATIENT MEDICARE (WNR) MEDICARE (M) PART A July 25, 2007 PART A [id number] HARMONY MCCALL JR PATIENT MEDICARE (WNR) MEDICARE (M) PART B July 25, 2007 PART B [id number] HARMONY MCCALL JR PATIENT MEDICARE (WNR) MEDICARE (M) PART A July 25, 2007 PART A [id number] HARMONY MCCALL JR PATIENT [facility] MEDICAL EXPENSE (OPT/PROF ) [facility] * Jan 24, 2015 [id number] CAROLE MCCALL SPOUSE Selected Encounter This section includes the information on record at [place] for the Encounter. Date/Time Encounter Type Encounter Description Reason Provider Source Jan 03, 2024 11:00 AM HLTH BHV IVNTJ GRP EA ADDL WEIGHT MGMT & MOVE! PROG - GRP ICD-10-CM Z68.30 Body mass index [BMI] 30.0-30.9, adult GORDON PATHAK [facility] Encounter Template Text not used by [place] Assessments - Encounter Diagnoses This section includes the primary and secondary diagnoses documented for the Encounter. Date/Time Primary/Secondary Diagnosis Diagnosis Name Provider Source Jan 03, 2024 05:49 PM PRIMARY Body mass index [BMI] 30.0-30.9, adult GORDON PATHAK [place] Jan 03, 2024 05:49 PM SECONDARY Other obesity due to excess calories GORDON PATHAK [place] Plan of Treatment: Future Appointments (+ 6 [...] Appointment Type Appointme nt Facility Name Jan 08, 2024 10:00 AM [facility]ULATORY [facility] NONE [facility] [place] [facility] Jan 10, 2024 11:00 AM AMBULATORY - NONE [place] Jan 17, 2024 11:00 AM AMBULATORY - NONE [place] Jan 21, 2024 11:00 AM AMBULATORY [facility]IC[facility] [place] [facility] Jan 22, 2024 11:00 AM AMBULATORY - NONE [facility] [place] [facility] Jan 22, 2024 11:00 AM AMBULATORY - MEDICINE [facility] Jan 24, 2024 11:00 AM AMBULATORY - NONE [place] Jan 31, 2024 11:00 AM AMBULATORY - NONE [place] Feb 07, 2024 11:00 AM AMBULATORY - NONE [place] Feb 14, 2024 11:00 AM AMBULATORY - NONE [place] Feb 26, 2024 08:30 AM AM[facility]ULATORY [facility] NONE [facility] [place] [facility] Feb 26, 2024 08:30 AM AMBULATORY - MEDICINE [facility] Feb 28, 2024 11:00 AM AMBULATORY - NONE [facility] Active, Pending, and Scheduled Orders This section includes a listing of several types of active, pending, and scheduled orders, including clinic medications orders, diagnostic test orders, procedure orders and consult orders; where the start date of the order is 45 days before the date of the Encounter or 45 days after the date of theEncounter. The data comes from all [facility] facilities. Test Date/Time Test Type Test Details Facility Name Jan 10, 2024 12:00 AM Laboratory - Chemi stry Order CBC BLOOD (LAV-BLOOD) [facility] Jan 10, 2024 12:00 AM Laboratory - Chemi stry Order BASIC METABOLIC PANEL (non-fasting) BLOOD (SST-SERUM) [facility] Jan 10, 2024 12:00 AM Laboratory - Chemi stry Order LIPID PANEL, NON FASTING BLOOD (SST-SERUM) [facility] Jan 10, 2024 12:00 AM Laboratory - Chemi stry Order LIVER FUNCTION BLOOD (SST-SERUM) [facility] Jan 10, 2024 12:00 AM Laboratory - Chemi stry Order TSH BLOOD (SST-SERUM) [facility] Jan 10, 2024 12:00 AM Laboratory - Chemi stry Order FERRITIN BLOOD (SST-SERUM) [facility] Jan 10, 2024 12:00 AM Laboratory - Chemi stry Order VITAMIN B12 BLOOD (SST-SERUM) [facility] Jan 10, 2024 12:00 AM Laboratory - Chemi stry Order IRON & TIBC PANEL BLOOD (SST-SERUM) [facility] Vital Signs: All taken on the encounter date This section contains inpatient and outpatient Vital Signs collected on the date of the Encounter. Date/Time Temperature Pulse Blood Pressure Respiratory Rate SP02 Pain Height Weight Body Mass Index Source Jan 03, 2024 03:08 PM 211.1 32 [place] Encounter Notes: All associated encounter notes This section contains the clinical notes associated to the Encounter. Date/Time Encounter Note(s) Provider Source Jan 03, 2024 05:40 PM MOVE NOTE: LOCAL TITLE: WEIGHT MANAGEMENT/MOVE! OUTPATIENT GROUP NOTE STANDARD TITLE: MOVE NOTE DATE OF NOTE: JAN 03, 2024@17:40 ENTRY DATE: JAN 03, 2024@17:40:53 AUTHOR: GORDON PATHAK COSIGNER: URGENCY: STATUS: COMPLETED [place] participated in MOVE! Group Counseling via [facility] on January 03, 2024. The was provided with information on [facility] and has given verbal consent to use group VV services for their healthcare. The copy of the Group Telehealth Agreement has been mailed to the [place]. The Veterans location/emergency contact number were confirmed. The Emergency Call Relay Center (E911) was available. The visit was locked for security and privacy. [place] identified with 2 identifiers: [ ] Full Name [ ] Address Veterans attended the [facility] MOVE! group session on this date. MOVE! is a program designed to provide education about weight management skills to overweight and obese Veterans. Group members combined to lose 2.7 pounds since their last attended group. Group members began today's discussion picking up on the theme from last week's group concerning the amount of screen time in which they typically engage. One [place] challenged himself with calculating how many hours he spent during the past week on his phone, computer, and watching television. He shared that it totalled to 55 hours for the week and he believes that the total might be a little lower than he is used to. He noticed that when he was actively engaged (e.g., doing work or playing online games) that he did not even think about eating or snacking. But during the many hours of passive screen time where he was watching television he often consumed large amounts of food even when he wasn't necessarily hungry. Other Veterans shared that they even eat their meals in front of the television. Some Veterans challenged themselves to eat at the dining room table this week in order to become more mindful and aware of the choices that they are making. Other Veterans will try to record their screen time and try to reduce it by engaging in more meaningful and active pursuits. Veterans will report next week on progress with these stated goals and assess whether such experiments produced weight loss. The next [facility] MOVE! group meeting will be held on December @ 11:00am. 's reported weight was 211.1 lbs. and lost 0.3 pounds since last group attended. Dx: Obesity d/t Excess Calories Obesity E66.09 BMI 30.0-30.9 The session lasted for 1 hour in duration. /johanny/ GORDON PATHAK, Ph.D. CLINICAL PSYCHOLOGIST Signed: 01/03/2024 17:54 Receipt Acknowledged By: 01/08/2024 08:04 /johanny/ SANTIAGO KRAMER STAFF DIETITIAN GORDON PATHAKFIELD
--- OUTSIDE RECORDS SUMMARY | 2024-03-05 06:44 | XMS_ITS | Encounter Summary ---
Author Name [facility] [place] Organization [facility] [place] Address [address] [place] [address] Care Team Providers Care Correspondent Name Role Phone LEN MENDOZA Primary Care [...] PART B Sep 23, 2014 PART B [id number] [id number] HARMONY MCCALL JR PATIENT MEDICARE (WNR) MEDICARE (M) PART A July 25, 2007 PART A [id number] [id number] HARMONY MCCALL JR PATIENT MEDICARE (WNR) MEDICARE (M) PART B July 25, 2007 PART B [id number] [id number] HARMONY MCCALL JR PATIENT MEDICARE (WNR) MEDICARE (M) PART A July 25, 2007 PART A [id number] [phone] [id number] HARMONY MCCALL JR PATIENT [facility] MEDICAL EXPENSE (OPT/PROF ) [facility] * Jan 24, 2015 [id number] [phone] CAROLE MCCALL SPOUSE Selected Encounter This section includes the information on record at [place] for the Encounter. Date/Time Encounter Type Encounter Description Reason Provider Source Jan 10, 2024 11:00 AM GROUP BEHAVE COUNS 2-10 WEIGHT MGMT & MOVE! PROG - GRP ICD-10-CM E66.09 Other obesity due to excess calories MIGUEL KRAMER Erin Encounter Template Text not used by [facility] Assessments - Encounter Diagnoses This section includes the primary and secondary diagnoses documented for the Encounter. Date/Time Primary/Secondary Diagnosis Diagnosis Name Provider Source Jan 11, 2024 12:05 PM PRIMARY Other obesity due to excess [...] Appointment Type Appointme nt Facility Name Jan 17, 2024 11:00 AM AMBULATORY - NONE [place] Jan 21, 2024 11:00 AM AM[facility] - [facility] Jan 22, 2024 11:00 AM AMBULATORY - MEDICINE [facility] Jan 22, 2024 11:00 AM AM[facility]UL[facility]ORY - NONE [facility] Jan 24, 2024 11:00 AM AMBULATORY - NONE [place] Jan 31, 2024 11:00 AM AMBULATORY - NONE [place] Feb 07, 2024 11:00 AM AMBULATORY - NONE [place] Feb 14, 2024 11:00 AM AMBULATORY - NONE [place] Feb 26, 2024 08:30 [facility] Feb 26, 2024 08:30 AM AMBULATORY - MEDICINE [facility] Feb 28, 2024 11:00 AM AMBULATORY [...] theEncounter. The data comes from all [facility] facilities. Test Date/Time Test Type Test Details Facility Name Jan 10, 2024 12:00 AM Laboratory - Chemi stry Order CBC BLOOD (LAV-BLOOD) [facility] Jan 10, 2024 12:00 AM Laboratory - Chemi stry Order LIPID PANEL, NON FASTING BLOOD (SST-SERUM) [facility] Jan 10, 2024 12:00 AM Laboratory - Chemi stry Order LIVER FUNCTION BLOOD (SST-SERUM) [facility] Jan 10, 2024 12:00 AM Laboratory - Chemi stry Order BASIC METABOLIC PANEL (non-fasting) BLOOD (SST-SERUM) [facility] Jan 10, 2024 12:00 AM Laboratory - Chemi stry Order FERRITIN BLOOD (SST-SERUM) [facility] Jan 10, 2024 12:00 AM Laboratory - Chemi stry Order TSH BLOOD (SST-SERUM) [facility] Jan 10, 2024 12:00 AM Laboratory - Chemi stry Order VITAMIN B12 BLOOD (SST-SERUM) [facility] Jan 10, 2024 12:00 AM Laboratory - Chemi stry Order IRON & TIBC PANEL BLOOD (SST-SERUM) [facility] Vital Signs: All taken on the encounter date This section contains inpatient and outpatient Vital Signs collected on the date of the Encounter. Date/Time Temperature Pulse Blood Pressure Respiratory Rate SP02 Pain Height Weight Body Mass Index Source Jan 10, 2024 11:00 AM 210 32 [place] Encounter Notes: All associated encounter notes This section contains the clinical notes associated to the Encounter. Date/Time Encounter Note(s) Provider Source Jan 10, 2024 11:00 AM MOVE NOTE: LOCAL TITLE: WEIGHT MANAGEMENT/MOVE! OUTPATIENT GROUP NOTE STANDARD TITLE: MOVE NOTE DATE OF NOTE: JAN 10, 2024@11:00 ENTRY DATE: JAN 11, 2024@11:42:47 AUTHOR: NIA,SANTIAGO P EXP COSIGNER: URGENCY: STATUS: COMPLETED [place] participated in MOVE! Group Counseling via [facility] on January 10, 2024. The was provided with information on [facility] and has given verbal consent to use group [facility] services for their healthcare. The copy of the Group Telehealth Agreement has been mailed to the [place]. The Veterans location/emergency contact number were confirmed. The Emergency Call Relay Center (E911) was available. The visit was locked for security and privacy. identified with 2 identifiers: [ ] Full Name [ ] Address Veterans attended the [facility] MOVE! group session on this date. MOVE! is a program designed to provide education about weight management skills to overweight and obese Veterans. Group members combined to gain 1.9 pounds since their last attended group. Group members began today's discussion picking up on the theme from last week's group concerning the amount of screen time in which they typically engage. Only one challenged himself with calculating how many hours he spent during the past week on his phone, computer, and watching television. He shared that it totalled to 48 hours for the week. Group members shared their overall frustration with not losing any weight recently. They shared their initial experience with losing weight and share how it is different for them currently. Facilitators encouraged veterans to define why they woudl want to lose weight currently. The next [facility] MOVE! group meeting will be held on December @ 11:00am. 's reported weight was 211.1 lbs. and lost 0.3 pounds since last group attended. Dx: Obesity d/t Excess Calories Obesity E66.09 BMI 30.0-30.9 The session lasted for 1 hour in duration. [place]'s reported weight was 210 lbs. and lost 1.1 pounds since last group attended. Dx: Obesity d/t Excess Calories Obesity E66.09 BMI 30.0-30.9 The session lasted for 1 hour in duration. /johanny/ SANTIAGO KRAMER STAFF DIETITIAN Signed: 01/11/2024 12:05 SANTIAGO KRAMER [place]
--- OUTSIDE RECORDS SUMMARY | 2024-03-05 06:46 | XMS_ITS | Encounter Summary ---
Author Name [facility] [place] Organization [facility] [place] [facility] [place] Address [address] [place] [address] Care Team Providers Care Homebirth Midwife Name Role Phone LUCAS STRATTON Primary Care [...] PART B Sep 23, 2014 PART B [id number] [phone] HARMONY MCCALL JR PATIENT MEDICARE (WNR) MEDICARE (M) PART A July 25, 2007 PART A [id number] [phone] HARMONY MCCALL JR PATIENT MEDICARE (WNR) MEDICARE (M) PART B July 25, 2007 PART B [id number] HARMONY MCCALL JR PATIENT MEDICARE (WNR) MEDICARE (M) PART A July 25, 2007 PART A [id number] HARMONY MCCALL JR PATIENT [facility] MEDICAL EXPENSE (OPT/PROF ) [facility] * Jan 24, 2015 [id number] CAROLE MCCALL SPOUSE Selected Encounter This section includes the information on record at [place] for the Encounter. Date/Time Encounter Type Encounter Description Reason Provider Source Jan 21, 2024 11:00 AM OFFICE O/P EST MOD 30 MIN PRIMARY CARE/MEDICINE ICD-10-CM G47.30 Sleep apnea, unspecified ELIAN STRATTON AM IHErin Encounter Template Text not used by [place] Assessments - Encounter Diagnoses This section includes the primary and secondary diagnoses documented for the Encounter. Date/Time Primary/Secondary Diagnosis Diagnosis Name Provider Source Feb 02, 2024 06:03 AM PRIMARY Sleep apnea, unspecified STRATTON,WILL MYRIAM Ferrell [facility] Feb 02, 2024 06:03 AM SECONDARY Encounter for immunization [facility] [place] [facility] [place] [facility] Feb 02, 2024 06:03 AM SECONDARY Essential (primary) hypertension STRATTON,WILL MYRIAM J [place] [facility] [place] [facility] Feb 02, 2024 06:03 AM SECONDARY Hypothyroidism, unspecified STRATTON[facility]WILL MY[facility] Plan of Treatment: Future Appointments (+ 6 months) and Future Tests (+/- 45 days) The Plan of Treatment section includes future care activities for the patient from all [place] treatmentfacilities. This section includes future appointments and future orders which are active, pending or scheduled. Future Appointments This section includes appointments that were scheduled to occur 6 months from the date of the Encounter, up to a maximum of 20 appointments. The data comes from all [place] treatment facilities. Appointment Date/Time Appointment Type Appointme nt Facility Name Jan 22, 2024 11:00 AM AMBULATORY - MEDICINE [place] [facility] Jan 22, 2024 11:00 AM AMBULATORY - NONE [place] [facility] [facility] Jan 24, 2024 11:00 AM AM[place]ULATORY - NONE [place] Jan 31, 2024 11:00 AM AMBULATORY - NONE [place] Feb 07, 2024 11:00 AM AMBULATORY - NONE [place] Feb 14, 2024 11:00 AM AMBULATORY - NONE [place] Feb 26, 2024 08:30 AM AMBULATORY - NONE [place] [facility] [place] [facility] Feb 26, 2024 08:30 AM AM[facility]ULATORY - MEDICINE [facility] [place] [facility] Feb 28, 2024 11:00 AM AMBULATORY - NONE [place] Jul 21, 2024 10:00 AM AMBULATORY - MEDICINE [facility] Active, Pending, and Scheduled Orders This section includes a listing of several types of active, pending, and scheduled orders, including clinic medications orders, diagnostic test orders, procedure orders and consult orders; where the start date of the order is 45 days before the date of the Encounter or 45 days after the date of theEncounter. The data comes from all [place] treatment facilities. Test Date/Time Test Type Test Details Facility Name Jan 10, 2024 12:00 AM Laboratory - Chemi stry Order [facility]LO[facility] Jan 10, 2024 12:00 AM Laboratory - Chemi stry Order LIPID PANEL, NON FASTING BLOOD (SST-SERUM) [facility] Jan 10, 2024 12:00 AM Laboratory - Chemi stry Order BASIC METABOLIC PANEL (non-fasting) BLOOD (SST-SERUM) [facility] Jan 10, 2024 12:00 AM Laboratory - Chemi stry Order LIVER FUNCTION BLOOD (SST-SERUM) [facility] Jan 10, 2024 12:00 AM Laboratory - Chemi stry Order FERRITIN BLOOD (SST-SERUM) [facility] Jan 10, 2024 12:00 AM Laboratory - Chemi stry Order TSH BLOOD (SST-SERUM) [facility] Jan 10, 2024 12:00 AM Laboratory - Chemi stry Order VITAMIN B12 BLOOD (SST-SERUM) [facility] Jan 10, 2024 12:00 AM Laboratory - Chemi stry Order IRON & TIBC PANEL BLOOD (SST-SERUM) [facility] Vital Signs: All taken on the encounter date This section contains inpatient and outpatient Vital Signs collected on the date of the Encounter. Date/Time Temperature Pulse Blood Pressure Respiratory Rate SP02 Pain Height Weight Body Mass Index Source Jan 21, 2024 10:55 AM 136/74 [place] [facility] Jan 21, 2024 10:52 AM 98.1 63 151/78 20 97 0 68 212 32 [place] [facility] Immunizations: All administered on the encounter date This section contains immunizations associated to the Encounter. Immunization Series Date Issued Reaction Comments INFLUENZA, HIGH-DOSE, TRIVALENT, PF Jan 20 Social History: Smoking Status (Most current) and Tobacco Use (All prior to encounter date) This section includes the most current, and the historical, smoking and tobacco- related health factors from the NE facility where the Encounter took place. Current Smoking Status This section includes the most current smoking, or tobacco-related health factor, from the NE facility where the Encounter took place. Date/Time Current Smoking Status Comment Mary ity Jan 21, 2024 11:00 AM VA-TOBACCO FORMER USER [place] [facility] [place] [facility] Tobacco Use History This section includes a history of the smoking, or tobacco-related health factors, that were collected on or before the date of the Encounter. The data comes from the NE facility where the Encounter took place. Date/Time Smoking Status/Tobacco Use Comment F acility Jan 21, 2024 11:00 AM VA-TOBACCO QUIT 15 YRS OR MORE [facility] [place] [facility] Jan 26, 2023 01:30 PM VA-TOBACCO FORMER USER [facility] [facility] Jan 26, 2023 01:30 PM VA-TOBACCO QUIT 15 YRS OR MORE [facility] [place] [facility] Jan 27, 2022 11:00 AM VA-TOBACCO FORMER USER [place] [facility] [place] [facility] Jan 27, 2022 11:00 AM VA-TOBACCO QUIT 15 YRS OR MORE [facility] [place] [facility] Sep 17, 2020 09:00 AM VA-TOBACCO FORMER USER [facility] [place] [facility] Sep 17, 2020 09:00 AM VA-TOBACCO QUIT 15 YRS OR MORE [facility] [facility] Jun 04, 2019 02:57 PM VA-TOBACCO NEVER USED [place] [facility] [place] [facility] Mar 14, 2018 11:23 AM VA-TOBACCO FORMER USER [facility] [facility] Mar 14, 2018 11:23 AM VA-TOBACCO QUIT 15 [facility] OR [facility] [place] [facility] Apr 04, 2017 12:30 PM QUIT TOBACCO USE > 7 YEARS AGO [place] [facility] [place] [facility] Apr 05, 2016 01:02 PM QUIT TOBACCO USE > 7 YEARS AGO [facility] 1984 [facility] Encounter Notes: All associated encounter notes This section contains the clinical notes associated to the Encounter. Date/Time Encounter Note(s) Provider Source Jan 21, 2024 12:30 PM PRIMARY CARE NURSE PRACTITIONER OUTPATIENT NOTE: LOCAL TITLE: NURSE PRACTITIONER OUTPATIENT NOTE STANDARD TITLE: PRIMARY CARE NURSE PRACTITIONER OUTPATIENT NOTE DATE OF NOTE: JAN 21, 2024@12:30 ENTRY DATE: JAN 21, 2024@12:30:32 AUTHOR: LUCAS STRATTON COSIGNER: URGENCY: STATUS: COMPLETED Chief complaint: Patient is a 83 year old . HPI: Pleasant male [place] here to follow up. Feeling well. He is also followed closely with his community PCP. Allergies: Patient has answered NKA The following VA and Non-VA meds were reconciled with patient. The patient was educated on the use of the medications including indication and side effects. Active and Recently Outpatient Medications (excluding Supplies): Active Outpatient Medications Status 1) CARBOXYMETHYLCELLULOSE NA 0.5% OPH SOLN INSTILL 1 ACTIVE DROP INTO EACH EYE FOUR TIMES A DAY FOR DRY EYE 2) LISINOPRIL 5MG TAB TAKE ONE TABLET BY [...] CAP 0.4MG BY MOUTH ONCE ACTIVE DAILY 12 Total Medications Review of Systems: Constitutional: (-)for Fevers, chills, weakness, nights sweats On examination: 98.1 F [36.7 C] (01/21/2024 10:52)151/78 (01/21/2024 10:52)63 (01/21/2024 10:52)20 (01/21/2024 10:52)0 (01/21/2024 10:52)BMI: 32.3212 lb [96.16 kg] (01/21/2024 10:52) is alert and oriented X3 Cardiovasc: 2plus carotids without bruits, no JVD [...] List is the source for the followin. Sleep apnea - Did not tolerate cpap mask, has appt with sleep specialist 2. Abdominal aortic aneurysm - this is followed by [facility], stable 3. Benign hypertension - repeat 136/74 4. Hypothyroidism - euthroid Health Care Maintenance: flu+ given, he declined the covid today Review of medial record = 5mins Time spent with Patient including shared decision making = 20 mins Post visit documentation = 5mins Total time = 30 mins Follow up visit in 6 mos. Medication Reconciliation: Outpatient: Has the patient been taking medications as documented in the EMLR? YES: The patient has been taking medications as documented in the EMLR. Essential Medication List for Review used to complete this medication reconciliation. INCLUDED IN THIS LIST: Alphabetical list of active outpatient prescriptions dispensed from this NE (local) and dispensed from another VA or [facility] facility (remote) as well as inpatient orders [...] whether with a VA or non-VA provider. Sexual Orientation: The patient thinks of their sexual orientation as: Straight or Heterosexual /es/ Lucas Stratton [facility], BIODIESEL PRODUCT MANAGER-BC, CNL Primary Care Nurse Practitioner Signed: 01/21/2024 12:34 LUCAS STRATTON [facility] Jan 21, 2024 10:54 AM PREVENTIVE MEDICINE NURSING NOTE: LOCAL TITLE: CLINICAL REMINDERS/NURSING STANDARD TITLE: PREVENTIVE MEDICINE NURSING NOTE DATE OF NOTE: JAN 21, 2024@10:54 ENTRY DATE: JAN 21, 2024@10:54:34 AUTHOR: ARRON AUGUSTIN COSIGNER: URGENCY: STATUS: COMPLETED CLINICAL REMINDERS/NURSING Has ADDENDA Advance Directive Screen MH AD: Patient does not have an Advance Directive completed and is requesting more information. A consult was sent to Social Work Services at this visit so that an appointment can be made with the patient to review the advance directive. The patient received education about Advance Directives and written notification of his/her rights. Depression Screening: Perform PHQ-2 A PHQ-2 screen was performed. The score was 0 which is a negative screen for depression. Over the past two weeks, how often have you been bothered by the following problems? 1. Little interest or pleasure in doing things Not at all 2. Feeling down, depressed, or hopeless Not at all Falls & Incontinence Screen: Falls Screen: 4. No falls within the past year. Incontinence Screen No incontinence. Tobacco Use Screening: The patient is a former tobacco user. The patient quit fifteen or more years ago. Alcohol Use Screen (AUDIT-C): Alcohol Screen: SCREEN FOR ALCOHOL (AUDIT-C) An alcohol screening test (AUDIT-C) was negative (score=1). 1. How often did you have a drink containing alcohol in the past year? Consider a drink to be a 12 ounce can or bottle of regular beer, 8 ounces of malt liquor, a 5 ounce glass of table wine, or a 1.5 ounce shot of liquor (like scotch, gin, or vodka). Monthly or less 2. How many drinks containing alcohol did you have on a typical day when you were drinking in the past year? One or two drinks 3. How often did you have six or more drinks on one occasion in the past year? Never RHS Screen: RHS Screen Session Format: Face to Face Environmental Check Upon inquiry, the individual reports that the environment is safe to proceed. Informed Consent to Screen and Document The individual consents to proceed with screening. The individual consents to documentation of responses. PRIMARY SCREEN: In the past 12 months, how often did a current or former intimate partner (e.g., boyfriend, girlfriend, , , sexual partner): 1. Scream or curse at you Never 2. Insult or talk down to you Never 3. Threaten you with harm Never 4. Physically hurt you Never 5. Force or pressure you to have sexual contact against your will, or when you were unable to say no Never ?? The HITS tool (items 1-4 above) is [place] copyright protected by Colt Rosales MD, and the user has full rights to use it throughout the [place] system. PRIMARY SCREEN RESULT: The Primary Screen is NEGATIVE. The individual answered never to all forms of IPV above (i.e., answered never to all 5 items) The individual accepts education and/or resources: No EDUCATION: Other: not interested at this time /johanny/ Arron Augustin Health Manager Research Development PUBLIC ADDRESS SYSTEM INSTALLER,PRIMARY CARE Signed: 01/21/2024 10:57 01/21/2024 ADDENDUM STATUS: COMPLETED Influenza Immunization: Influenza, High-Dose, Trivalent, Preservative Free (Fluzone-Syringe) Administered: INFLUENZA, HIGH-DOSE, TRIVALENT, PF Date Administered: Jan 21, 2024 11:00 General Education Professor: SANOFI PASTEUR Lot: [id number] Exp Date: Sep 22, 2024 [facility]: [phone] Admin Route/Site: INTRAMUSCULAR/RIGHT DELTOID Dosage: 0.5mL Vaccine Information Statement(s): INFLUENZA(FLU) VACC(INACTIVATED OR RECOMBINANT)VIS Oct 29, 2020 ([place]) Order By: Policy Administered By: Terri Davey The Influenza Vaccine Information Statement (VIS) was reviewed with the patient/caregiver which lists the benefits and risks of the vaccine and the risks of not receiving the Influenza vaccine. The patient/caregiver denied any prior severe reaction to this vaccine or its components or a severe allergic reaction, such as anaphylaxis, to any vaccine or any injectable therapy. The patient/caregiver gave verbal consent to receive the vaccine. COVID-19 Immunization: Refused Moderna Monovalent COVID-19 vaccine Immunization: COVID-19 (MODERNA), MRNA, LNP-S, PF, 50 MCG/0.5 ML (AGES 12+ YEARS) Refusal Reason: PATIENT DECISION Patient refuses all immunization(s) in the COVID-19 group Date Documented: 01/21/24 11:30 /johanny/ TERRI DAVEY REGISTERED NURSE Signed: 01/21/2024 11:31 ARRON AUGUSTIN CNTRL [facility]
--- OUTSIDE RECORDS SUMMARY | 2024-03-05 06:47 | XMS_ITS | Encounter Summary ---
Author Name [facility] [place] Organization [facility] [place] Address [address] [place] [address] Care Team Providers Care Record Tabulating Clerk Name Role Phone LEN MENDOZA Primary [...] PART B Sep 23, 2014 PART B [id number] [phone] HARMONY MCCALL JR PATIENT MEDICARE (WNR) MEDICARE (M) PART A July 25, 2007 PART A [id number] HARMONY MCCALL JR PATIENT MEDICARE (WNR) MEDICARE (M) PART B July 25, 2007 PART B [id number] HARMONY MCCALL JR PATIENT MEDICARE (WNR) MEDICARE (M) PART A July 25, 2007 PART A [id number] HARMONY MCCALL JR PATIENT [facility] MEDICAL EXPENSE (OPT/PROF ) [facility] * Jan 24, 2015 [id number] [phone] CAROLE MCCALL SPOUSE Selected Encounter This section includes the information on record at ID for the Encounter. Date/Time Encounter Type Encounter Description Reason Provider Source Jan 24, 2024 11:00 AM GROUP BEHAVE COUNS 2-10 WEIGHT MGMT & MOVE! 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 Date/Time Primary/Secondary Diagnosis Diagnosis Name Provider Source Jan 25, 2024 10:43 AM PRIMARY Obesity, class 1 SANTIAGO KRAMER EDMON[place] Plan of Treatment: Future Appointments (+ 6 months) and Future Tests (+/- 45 days) The Plan of Treatment section includes future care activities for the patient from all [facility]. This section includes future appointments and future orders which are active, pending or scheduled. Future Appointments This section includes appointments that were scheduled to occur 6 months from the date of the Encounter, up to a maximum of 20 appointments. The data comes from all ID treatment facilities. Appointment Date/Time Appointment Type Appointme nt Facility Name Jan 31, 2024 11:00 AM AMBULATORY - NONE [place] [facility] Feb 07, 2024 11:00 AM [facility] [place]ONE [facility] Feb 14, 2024 11:00 AM AMBULATORY - NONE [facility] Feb 26, 2024 08:30 AM [facility]ORY - [facility] Feb 26, 2024 08:30 AM AMBULATORY - MEDICINE [facility] Feb 28, 2024 11:00 [facility], [facility] 10:00 AM [facility]ULATORY - MEDICINE [facility] Active, Pending, and Scheduled Orders This section includes a listing of several types of active, pending, and scheduled orders, including clinic medications orders, diagnostic test orders, procedure orders and consult orders; where the start date of the order is 45 days before the date of the Encounter or 45 days after the date of theEncounter. The data comes from all ID treatment [facility]. Test Date/Time Test Type Test Details Facility Name Jan 10, 2024 12:00 AM Laboratory - Chemi stry Order CBC BLOOD (LAV-BLOOD) [facility] Jan 10, 2024 12:00 AM Laboratory - Chemi stry Order LIPID PANEL, NON FASTING [facility]LO[facility] ([facility]UM[facility] Jan 10, 2024 12:00 AM Laboratory - Chemi stry Order BASIC METABOLIC PANEL (non-fasting) BLOOD (SST-SERUM) [facility] Jan 10, 2024 12:00 AM Laboratory - Chemi stry Order LIVER FUNCTION BLOOD (SST-SERUM) [facility] Jan 10, 2024 12:00 AM Laboratory - Chemi stry Order FERRITIN BLOOD (SST-SERUM) [facility] Jan 10, 2024 12:00 AM Laboratory - Chemi stry Order TSH BLOOD (SST-SERUM) [facility] Jan 10, 2024 12:00 AM Laboratory - Chemi stry Order VITAMIN B12 BLOOD (SST-SERUM) [facility] Jan 10, 2024 12:00 AM Laboratory - Chemi stry Order IRON & TIBC PANEL BLOOD (SST-SERUM) [facility] Vital Signs: All taken on the encounter date This section contains inpatient and outpatient Vital Signs collected on the date of the Encounter. Date/Time Temperature Pulse Blood Pressure Respiratory Rate SP02 Pain Height Weight Body Mass Index Source Jan 24, 2024 12:[address] [place] [address] [place] Encounter Notes: All associated encounter notes This section contains the clinical notes associated to the Encounter. Date/Time Encounter Note(s) Provider Source Jan 24, 2024 11:00 AM MOVE NOTE: LOCAL TITLE: WEIGHT MANAGEMENT/MOVE! OUTPATIENT GROUP NOTE STANDARD TITLE: MOVE NOTE DATE OF NOTE: JAN 24, 2024@11:00 ENTRY DATE: JAN 25, 2024@10:37:32 AUTHOR: SANTIAGO KRAMER COSIGNER: URGENCY: STATUS: COMPLETED participated in MOVE! Group Counseling via VVC on January 24, 2024. The was provided with information on VVC and has given verbal consent to use group VVC services for their healthcare. The copy of the Group Telehealth Agreement has been mailed to the [place]. The Veterans location/emergency contact number were confirmed. The Emergency Call Relay Center (E911) was available. The visit was locked for security and privacy. [place] identified with 2 identifiers: [ ] Full Name [ ] Address Veterans attended the [facility] MOVE! group session on this date. MOVE! is a program designed to provide education about weight management skills to overweight and obese Veterans. Group members combined to lose 3.7 pounds since their last attended group. Group members began today's discussion talking about concern going into the holiday season and specifically mentioned consuming large amounts of candy for Halloween. Facilitators shared with group members the trend of the group over past year has been up. Group members shared their concerns about this trend. Faciliators encouraged veterans to set gaols for themselves to reverse this trend and get back on track witht their weight loss. The next [facility] MOVE! group meeting will be held on January @ 11:00am. [place]'s reported weight was 212.0 lbs. and was stable since last group attended. Dx: e66.811 z68.30 The session lasted for 1 hour in duration. /johanny/ SANTIAGO KRAMER STAFF DIETITIAN Signed: 01/25/2024 10:45 Receipt Acknowledged By: 01/28/2024 16:18 /johanny/ GORDON PATHAK, Ph.D. CLINICAL PSYCHOLOGIST SANTIAGO KRAMERFIELD
--- OUTSIDE RECORDS SUMMARY | 2024-03-05 06:47 | XMS_ITS | Encounter Summary ---
Author Name [facility] [place] Organization [place] Address [address] [place] [address] Care Team Providers Care Manager Payer Name Role Phone LEN MENDOZA Primary Care [...] PART B Sep 23, 2014 PART B [id number] [phone] 4 HARMONY MCCALL JR PATIENT MEDICARE (WNR) MEDICARE (M) PART A July 25, 2007 PART A [id number] HARMONY MCCALL JR PATIENT MEDICARE (WNR) MEDICARE (M) PART B July 25, 2007 PART B [id number] [id number] HARMONY MCCALL JR PATIENT MEDICARE (WNR) MEDICARE (M) PART A July 25, 2007 PART A [id number] HARMONY MCCALL JR PATIENT [facility] MEDICAL EXPENSE (OPT/PROF ) [facility] * Jan 24, 2015 [id number] [phone] CAROLE MCCALL SPOUSE Selected Encounter This section includes the information on record at [place] for the Encounter. Date/Time Encounter Type Encounter Description Reason Provider Source Jan 31, 2024 11:00 AM GROUP BEHAVE COUNS 2-10 WEIGHT MGMT & MOVE! PROG - GRP ICD-10-CM E66.811 Obesity, class 1 SANTIAGO KRAMER Erin Encounter Template Text not used by [place] Assessments - Encounter Diagnoses This section includes the primary and secondary diagnoses documented for the Encounter. Date/Time Primary/Secondary Diagnosis Diagnosis Name Provider Source Feb 01, 2024 10:47 AM PRIMARY Obesity, class 1 SANTIAGO KRAMER Feb 01, 2024 10:47 AM SECONDARY Body mass index [BMI] 30.0-30.9, [...] Appointment Type Appointme nt Facility Name Feb 07, 2024 11:00 AM AMBULATORY - NONE [facility] Feb 14, 2024 11:00 AM [facility] Feb 26, 2024 08:30 AM [facility] Feb 26, 2024 08:30 AM AM[facility] Feb 28, 2024 11:00 AM [facility] Jul 21, 2024 10:00 AM AMBULATORY - MEDICINE [place] [facility] Active, Pending, and Scheduled Orders This section includes a listing of several types of active, pending, and scheduled orders, including clinic medications orders, diagnostic test orders, procedure orders and consult orders; where the start date of the order is 45 days before the date of the Encounter or 45 days after the date of theEncounter. The data comes from all [place] treatment facilities. Test Date/Time Test Type Test Details Facility Name Jan 10, 2024 12:00 AM Laboratory - Chemi stry Order BASIC METABOLIC PANEL (non-fasting) BLOOD (SST-SERUM) [facility] Jan 10, 2024 12:00 AM Laboratory - Chemi stry Order LIPID PANEL, NON FASTING BLOOD (SST-SERUM) [facility] Jan 10, 2024 12:00 AM Laboratory - Chemi stry Order LIVER FUNCTION BLOOD (SST-SERUM) [facility] Jan 10, 2024 12:00 AM Laboratory - Chemi stry Order TSH BLOOD (SST-SERUM) [facility] Jan 10, 2024 12:00 AM Laboratory - Chemi stry Order CBC BLOOD (LAV-BLOOD) [facility] Jan 10, 2024 12:00 AM Laboratory - Chemi stry Order FERRITIN BLOOD (SST-SERUM) [facility] Jan 10, 2024 12:00 AM Laboratory - Chemi stry Order VITAMIN B12 BLOOD (SST-SERUM) [facility] Jan 10, 2024 12:00 AM Laboratory - Chemi stry Order IRON & TIBC PANEL BLOOD (SST-SERUM) [facility] Vital Signs: All taken on the encounter date This section contains inpatient and outpatient Vital Signs collected on the date of the Encounter. Date/Time Temperature Pulse Blood Pressure Respiratory Rate SP02 Pain Height Weight Body Mass Index Source Jan 31, 2024 02:49 PM 211.3 [address] [place] Encounter Notes: All associated encounter notes This section contains the clinical notes associated to the Encounter. Date/Time Encounter Note(s) Provider Source Jan 31, 2024 11:00 AM MOVE NOTE: LOCAL TITLE: WEIGHT MANAGEMENT/MOVE! OUTPATIENT GROUP NOTE STANDARD TITLE: MOVE NOTE DATE OF NOTE: JAN 31, 2024@11:00 ENTRY DATE: FEB 01, 2024@10:20:24 AUTHOR: SANTIAGO KRAMER COSIGNER: URGENCY: STATUS: COMPLETED participated in MOVE! Group Counseling via VVC on January 31, 2024. The [place] was provided with information on VVC and has given verbal consent to use group VVC services for their healthcare. The copy of the Group Telehealth Agreement has been mailed to the . The Veterans location/emergency contact number were confirmed. The Emergency Call Relay [facility] ([phone]) was available. The visit was locked for security and privacy. [place] identified with 2 identifiers: [ ] Full Name [ ] Address Veterans attended the [facility] MOVE! group session on this date. MOVE! is a program designed to provide education about weight management skills to overweight and obese Veterans. Group members combined to gain 3.4 pounds since their last attended group. Group members began today's discussion asking if they are consuming enough protein daily. Faciliators reviewed sources of protein and goal per day. One group member shared their food log and found that the most common food they were consuming was butter. Facilitators reviewed how to read a nutrition facts label and share different products that are lower in calories including reduced fat spread and sugar free jelly. Faciliators encouraged veterans to set goals for themselves to reverse this trend and get back on track with their weight loss. The next [facility] MOVE! group meeting will be held on January @ 11:00am. 's reported weight was 211.3 lbs. and lost 0.7 lb since last group attended. Dx: e66.811 z68.30 The session lasted for 1 hour in duration. /johanny/ SANTIAGO KRAMER STAFF DIETITIAN Signed: 02/01/2024 10:49 Receipt Acknowledged By: 02/08/2024 12:25 /johanny/ GORDON PATHAK, Ph.D. CLINICAL PSYCHOLOGIST SANTIAGO KRAMER NOCATEE
== END 2024-02-29 08:34 | disposition home or self-care (01) ==
LOC: HO.HMGCX 08:33
PROVIDERS: PCP Internal Medicine; Visit Provider Internal Medicine
DX: M25.562 Pain in left knee (principal)
CPT/HCPCS: 73560; 99212

== ENCOUNTER 2024-02-29 08:33 | Outpatient (AMB) | payer MEDICARE, OTHER, SELFPAY ==
[2024-02-29 08:42] VITALS: BP 144/78; PULSE 66; O2SAT 95; BMI 30.8
--- NOTE | 2024-02-29 08:42 | MHC.PC.OV ---
Vital Signs 02/29/24 08:42 Height 5 ft 11 in Weight 221 lb BMI 30.8 BP 144/78 H Blood Pressure Location Rt brachial Position Sitting Pulse 66 Pulse Source Pulse Oximeter Pulse Oximetry (%) 95 Oxygen Delivery Method Room Air Intake Visit Reasons: swollen left knee Allergies morphine Allergy (Unknown, Verified 02/29/24 08:46) Unknown ENVIROMENTAL Allergy (Unknown, Uncoded 10/30/23 13:51) POST NASAL DRIP Medication List - Last Reconciled 02/29/24 by Wilfredo Bernard MD aspirin (Adult Aspirin Regimen) 81 mg PO DAILY bromocriptine 5 mg (2 x 2.5 mg) PO BEDTIME calcium carbonate-vitamin D3 600 mg-5 mcg (200 unit) 1 tab PO BID cetirizine (Allergy Relief (cetirizine)) 10 mg PO DAILY cholecalciferol (vitamin D3) 25 mcg PO DAILY finasteride 5 mg PO DAILY levothyroxine 100 mcg PO QAM losartan 100 mg PO DAILY metoprolol succinate ER 50 mg PO DAILY 90 days rosuvastatin 20 mg PO DAILY tamsulosin 0.4 mg PO BEDTIME Tobacco use date assessed: 02/29/24 Fall risk assessment: No Falls in past year Last assessed Fall Risk: 02/29/24 Dental Screening Dental Screen Date: 02/29/24 Did you have a dental visit in the last 12 months?: No Did you have a dental problem in the last 6 months where you did not have access to dental care?: No Was dental information given to patient?: No HPI swollen left knee HPI Details Chief Complaint Persistent knee pain and swelling for approximately one month. Assessment and Plan 83-year-old male with a history of osteoarthritis presenting with recent onset of knee pain and swelling. The patient reports persistent symptoms for about one month, initially noticed after a period of immobility due to back pain. The knee pain notably worsens with movement and activity and is associated with swelling and warmth, especially at night. The patient's previous back issue has resolved, and naproxen provided minimal relief for the knee. Current examination reveals mild swelling without signs of infection, likely indicating an osteoarthritis flare-up. Differential includes worsening osteoarthritis and potential knee effusion. An x-ray is ordered to further evaluate the extent of osteoarthritis and to assess for any additional joint changes. 1. Possible Knee Effusion Due to swelling and warmth in the knee, possible effusion related to osteoarthritis is suspected. An orthopedic consultation is recommended for further evaluation and potential intervention including corticosteroid injections if appropriate. 2. Osteoarthritis An x-ray of the knee is ordered to assess the severity of osteoarthritis and other possible changes within the joint. Advise limiting physical activities that exacerbate pain, but maintain light movements as tolerated to prevent stiffness. Consider continuation of naproxen for pain management, although it has shown minimal effect. Contingent upon x-ray findings, consider prescribing prednisone if arthritic changes are confirmed. Problem List - Osteoarthritis - Possible Knee Effusion Patient Instructions - Undergo the recommended x-ray for the knee. - Maintain light mobility as tolerated, avoid excessive activity. - Continue taking naproxen as directed, noting limited effectiveness. - Await x-ray results and instructions regarding potential prednisone prescription. - Plan for orthopedic consultation for further management and discussion of possible corticosteroid injection. - Use heat application rather than cold for symptom relief. - Monitor for any worsening symptoms and seek care if necessary. [facility] Medical History Painful arc syndrome of right shoulder Nocturia Lipid disorder Other specified hypothyroidism Prolactinoma Hypertension, essential Surgical History History of biopsy History of surgery Family History Father No problems noted. Mother Colon cancer Brother No problems noted. Brother No problems noted. Sister No problems noted. Social History Housing: House Alcohol intake: never Patient Tobacco Use Status: Former Tobacco user e-Cigarette/Vaping Use: Never Used service: Yes Current occupational status: retired Cognitive needs: No Hearing needs: No Vision needs: No Questionnaire Thrive Questionnaire Date Thrive assessed: 02/29/24 I am a: Patient What is your living situation today?: I have a steady place to live Within the past 12 months, did the food you bought not last and you didn't have the money to get more?: Never true Within the past 12 months, did you worry whether your food would run out before you got money to buy more?: Never true Do you have trouble paying for medicines?: No Do you have trouble getting transportation to medical appointments?: No Do you have trouble paying your heating and electricity bill?: No Do you have trouble taking care of your child, family member or friend?: No Do you have trouble with day-to-day activities such as bathing, preparing meals, shopping, managing finances, etc.?: No Are you currently unemployed and looking for a job?: No Are you interested in more education?: No Please select the resources that you would like help with: None Currently or been in a relationship where the following occur: No concerns reported THRIVE Score: 0 AUDIT C Alcohol Use Questionnaire (AUDIT-C) 1. How often do you have a drink containing alcohol?: Monthly or less 2. How many drinks containing alcohol do you have on a typical day when you are drinking?: 1 or 2 3. How often do you have six or more drinks on one occasion?: Never Total Score: 1 Score Reviewed/Action Taken: Yes DIPAK-7 AMB Questionnaire DIPAK-7 Date DIPAK - 7 assessed: 11/06/23 Source: Developed by Drs. Judah Isabel, Willa Geiger, Farhad Malcolm and colleagues, with an educational maritza from [employer]. Review of Systems Const Denies chills and Denies fever(s) ENT Denies epistaxis and Denies nasal discharge Card Denies chest pain Resp Denies chest congestion, Denies cough and Denies hemoptysis GI Denies diarrhea and Denies nausea Skin/Breast Denies rash Neuro Reports no additional complaints Psych Reports no additional complaints Endo Reports no additional complaints Physical exam (Primary Care) Vital Signs: Last Vital Signs Pulse 66 02/29/24 08:42 BP 144/78 H 02/29/24 08:42 Pulse Ox 95 02/29/24 08:42 Oxygen Delivery Method Room Air 02/29/24 08:42 BMI result Body Mass Index 30.8 Tobacco/Smoking Status: Tobacco use Status Tobacco use date assessed 02/29/24 02/29/24 08:47 Patient Tobacco Use Status Former Tobacco user 02/29/24 08:43 e-Cigarette/Vaping Use Never Used 02/29/24 08:43 Thrive Assessment: Date of Thrive Assessment Date Thrive assessed 02/29/24 02/29/24 08:47 Currently or been in a relationship where the following occur: No concerns reported Const General: cooperative, comfortable and no acute distress Orientation/consciousness: patient oriented x3 HENMT Head: Yes normocephalic Eyes General: appearance normal, both eyes and all related structures Neck Neck: Yes supple Resp Effort & Inspection: normal respiratory effort, no cough and no stridor Skin General skin exam: turgor normal Neuro General: patient oriented x3, tone normal and moves all extremities Extrem Elbow/forearm/wrist images: 1. Mild swelling noticed medially, range of motion is intact, no pain with palpation Coding Level of Care Code Est Pt Level 3 (54293) Diagnoses Acute pain of left knee M25.562 Chronicity: acute Assessment & Plan Assessment & Plan (1) Knee pain, left: Code(s): M25.562 - Pain in left knee Category: Medical Qualifiers: Chronicity: acute Qualified Code(s): M25.562 - Pain in left knee Plan Chief Complaint Persistent knee pain and swelling for approximately one month. Assessment and Plan 83-year-old male with a history of osteoarthritis presenting with recent onset of knee pain and swelling. The patient reports persistent symptoms for about one month, initially noticed after a period of immobility due to back pain. The knee pain notably worsens with movement and activity and is associated with swelling and warmth, especially at night. The patient's previous back issue has resolved, and naproxen provided minimal relief for the knee. Current examination reveals mild swelling without signs of infection, likely indicating an osteoarthritis flare-up. Differential includes worsening osteoarthritis and potential knee effusion. An x-ray is ordered to further evaluate the extent of osteoarthritis and to assess for any additional joint changes. 1. Possible Knee Effusion Due to swelling and warmth in the knee, possible effusion related to osteoarthritis is suspected. An orthopedic consultation is recommended for further evaluation and potential intervention including corticosteroid injections if appropriate. 2. Osteoarthritis An x-ray of the knee is ordered to assess the severity of osteoarthritis and other possible changes within the joint. Advise limiting physical activities that exacerbate pain, but maintain light movements as tolerated to prevent stiffness. Consider continuation of naproxen for pain management, although it has shown minimal effect. Contingent upon x-ray findings, consider prescribing prednisone if arthritic changes are confirmed. Problem List - Osteoarthritis - Possible Knee Effusion Patient Instructions - Undergo the recommended x-ray for the knee. - Maintain light mobility as tolerated, avoid excessive activity. - Continue taking naproxen as directed, noting limited effectiveness. - Await x-ray results and instructions regarding potential prednisone prescription. - Plan for orthopedic consultation for further management and discussion of possible corticosteroid injection. - Use heat application rather than cold for symptom relief. - Monitor for any worsening symptoms and seek care if necessary. Orders: Orders XR knee LT 2V Today M25.562 - Pain in left knee Referrals Orthopedics Referral M25.562 - Pain in left knee
== END 2024-02-29 10:00 | disposition home or self-care (01) ==
PROVIDERS: PCP Internal Medicine; Visit Provider Internal Medicine
DX: M25.562 Pain in left knee (principal)

== ENCOUNTER 2024-03-21 08:01 | Outpatient (AMB) | payer MEDICARE, OTHER, SELFPAY ==
--- OUTSIDE RECORDS SUMMARY | 2024-03-21 08:03 | XMS_ITS | Encounter Summary ---
Author Name [facility] [place] Organization [place] Address [address] [place] [id number] Care Team Providers Care Mellowing Machine Operator Name Role Phone LEN MENDOZA [...] PART B Sep 23, 2014 PART B [id number] [id number] [phone] 4 HARMONY MCCALL JR PATIENT MEDICARE (WNR) MEDICARE (M) PART A July 25, 2007 PART A [id number] [id number] HARMONY MCCALL JR PATIENT MEDICARE (WNR) MEDICARE (M) PART B July 25, 2007 PART B [id number] [id number] HARMONY MCCALL JR PATIENT MEDICARE (WNR) MEDICARE (M) PART A July 25, 2007 PART A [id number] [id number] HARMONY MCCALL JR PATIENT [facility] MEDICAL EXPENSE (OPT/PROF ) [facility] * Jan 24, 2015 [id number] CAROLE MCCALL SPOUSE Selected Encounter This section includes the information on record at [place] for the Encounter. Date/Time Encounter Type Encounter Description Reason Provider Source Mar 21, 2023 08:00 AM EXERCISE CLASS HEALTH/WELLBEING SRVS ICD-10-CM Z72.3 Lack of physical exercise DAMON ONEILL IHE Encounter Template Text not used by CT Assessments - Encounter Diagnoses This section includes the primary and secondary diagnoses documented for the Encounter. Date/Time Primary/Secondary Diagnosis Diagnosis Name Provider Source Mar 21, 2023 10:51 AM PRIMARY Lack of physical exercise DAMON ONEILL [facility] Plan of Treatment: Future Appointments [...] AMBULATORY - NONE [facility] [place] [facility] Mar 29, 2023 11:00 AM AMBULATORY - NONE [place] Apr 05, 2023 11:00 AM AMBULATORY - NONE [place] Apr 10, 2023 10:00 AM AMBULATORY - NONE [facility] [place] [facility] Apr 12, 2023 11:00 AM [...] AMBULATORY - NONE [facility] [place] [facility] May 17, 2023 11:00 AM AMBULATORY - NONE [place] May 24, 2023 11:00 AM AMBULATORY - NONE [place] May 29, 2023 10:00 AM AMBULATORY - NONE [facility] [place] [facility] May 31, 2023 11:00 AM AMBULATORY - NONE [place] Jun 07, 2023 11:00 AM AMBULATORY - NONE [place] Jun 12, 2023 10:00 AM AMBULATORY - NONE [facility] [place] [facility] Jun 14, 2023 11:00 AM AMBULATORY - NONE [place] Jun 21, 2023 11:00 AM AMBULATORY - NONE [place] Jun 26, 2023 10:00 AM AMBULATORY - NONE [facility] [place] [facility] Jun 28, [...] AM [facility]-TOBACCO [facility]IT 15 YRS [facility] Apr 04, 2017 12:30 PM QUIT TOBACCO USE > 7 YEARS AGO [facility] Apr 05, 2016 01:02 PM QUIT TOBACCO USE > 7 YEARS AGO quit in 1984 [facility] Encounter Notes: All associated encounter notes This section contains the clinical notes associated to the Encounter. Date/Time Encounter Note(s) Provider Source Mar 21, 2023 10:49 AM GERIATRIC MEDICINE NOTE: LOCAL TITLE: GEROFIT VCM/VVC/VOD TELEHEALTH SUPERVISED EXERCISE STANDARD TITLE: GERIATRIC MEDICINE NOTE DATE OF NOTE: MAR 21, 2023@10:49 ENTRY DATE: MAR 21, 2023@10:49:20 AUTHOR: DOUG ONEILL COSIGNER: URGENCY: STATUS: COMPLETED GEROFIT VVC/VCM/VOD Telehealth Supervised Exercise NOTE Provided informed consent to receive treatment via Telehealth., [place] mailed and has been made verbally aware of Telehealth Group [place] practices. 's Location: address on record unless specified below. Emergency Contact: on record unless specified below. [place] participated remotely in the Gerofit exercise program today through [place] Virtual Travelers' Aid Worker. Activities were focused on progression of [...] whole health concerns. /johanny/ VIOLETTA FINK LICENSE NUT THREADER Signed: 03/21/2023 10:56 DOUG ONEILL [facility]
--- OUTSIDE RECORDS SUMMARY | 2024-03-21 08:03 | XMS_ITS | Encounter Summary ---
Author Name [place] Organization [place] Address [address] [place] [id number] Care Team Providers Care Weatherstrip Machine Operator Name Role Phone LEN MENDOZA [...] PART B Sep 23, 2014 PART B [id number] [id number] HARMONY MCCALL JR PATIENT MEDICARE (WNR) MEDICARE (M) PART A July 25, 2007 PART A [id number] [id number] HARMONY MCCALL JR PATIENT MEDICARE (WNR) MEDICARE (M) PART B July 25, 2007 PART B [id number] PK04 HARMONY MCCALL JR PATIENT MEDICARE (WNR) MEDICARE (M) PART A July 25, 2007 PART A [id number] PK04 HARMONY MCCALL JR PATIENT [facility] MEDICAL EXPENSE (OPT/PROF ) [facility] * Jan 24, 2015 [id number] CAROLE MCCALL SPOUSE Selected Encounter This [...] exercise DAMON ONEILL [place] [facility] [place] [facility] Plan of Treatment: Future Appointments (+ 6 [...] AMBULATORY - NONE [facility] [place] [facility] Oct 25, 2023 11:00 AM AMBULATORY - [...] AMBULATORY - NONE [facility] [place] [facility] Dec 06, 2023 11:00 AM AMBULATORY - NONE [place] Dec 11, 2023 10:00 AM AMBULATORY - NONE [facility] [place] [facility] Dec 11, 2023 01:00 PM AMBULATORY - MEDICINE [facility] [place] [facility] Dec 13, 2023 11:00 AM AMBULATORY - NONE [place] Dec 20, 2023 11:00 AM AMBULATORY - NONE [place] Dec 25, 2023 10:00 AM AMBULATORY - NONE [facility] [place] [facility] Dec 27, 2023 11:00 AM AMBULATORY - NONE [place] Jan 03, 2024 11:00 AM AMBULATORY - NONE [place] Jan 08, 2024 10:00 AM AMBULATORY - NONE [facility] [place] [facility] Jan 10, 2024 11:00 AM AMBULATORY - [...] YRS OR MORE [place] [facility] [place] [facility] Tobacco Use History This section includes a history of the smoking, or tobacco-related health factors, that were collected on or before the date of the Encounter. The data comes from the [place] facility where the Encounter took place. Date/Time Smoking Status/Tobacco Use Comment F acility Jan 26, 2023 01:30 PM VA-TOBACCO QUIT 15 YRS OR MORE [facility] [place] [facility] Jan 27, 2022 11:00 AM VA-TOBACCO FORMER USER [facility] [place] [facility] Jan 27, 2022 11:00 AM VA-TOBACCO QUIT 15 YRS OR MORE [facility] [place] [facility] Sep 17, 2020 09:00 AM VA-TOBACCO FORMER USER [facility] [place] [facility] Sep 17, 2020 09:00 AM VA-TOBACCO QUIT 15 YRS OR MORE [facility] [place] [facility] Jun 04, 2019 02:57 PM VA-TOBACCO NEVER USED [facility] [place] [facility] Mar 14, 2018 11:23 AM VA-TOBACCO FORMER USER [facility] [place] [facility] Mar 14, 2018 11:23 AM VA-TOBACCO QUIT 15 YRS OR MORE [facility] Apr 04, 2017 12:30 PM QUIT TOBACCO USE [facility] Apr 05, 2016 01:02 PM QUIT TOBACCO USE > 7 YEARS AGO quit in 1984 [facility] Encounter Notes: All associated encounter notes This [...] informed consent to receive treatment via Telehealth., [place] mailed and has been made verbally aware of [facility] [place] practices. [place]'s Location: address on record unless specified below. Emergency Contact: on record unless specified below. [place] participated remotely in the Gerofit exercise program today through [place] Virtual Silk Screener. Activities were focused on progression of their [...] whole health concerns. /johanny/ VIOLETTA FINK LICENSE CHECK PILOT Signed: 10/15/2023 10:51 DOUG ONEILL [facility]
--- OUTSIDE RECORDS SUMMARY | 2024-03-21 08:03 | XMS_ITS | Encounter Summary ---
Author Name [place] Organization [place] Address [address] [place] [address] Care Team Providers Care Vp Product Name Role Phone LEN MENDOZA Primary Care [...] PART B Sep 23, 2014 PART B [id number] PK04 [phone] 4 HARMONY MCCALL JR PATIENT MEDICARE (WNR) MEDICARE (M) PART A July 25, 2007 PART A [id number] [id number] HARMONY MCCALL JR PATIENT MEDICARE (WNR) MEDICARE (M) PART B July 25, 2007 PART B [id number] PK04 HARMONY MCCALL JR PATIENT MEDICARE (WNR) MEDICARE (M) PART A July 25, 2007 PART A [id number] PK04 HARMONY MCCALL JR PATIENT [facility] (OPT[facility]PROF ) [facility] * Jan 24, 2015 [id number] CAROLE MCCALL SPOUSE Selected Encounter This section includes the information on record at [place] for the Encounter. Date/Time Encounter Type Encounter Description Reason Provider Source Oct 17, 2023 08:00 AM EXERCISE CLASS HEALTH/WELLBEING SRVS ICD-10-CM Z72.3 Lack of physical exercise DAMON ONEILL IHE Encounter Template Text not used by [place] Assessments - Encounter Diagnoses This section includes the primary and secondary diagnoses documented for the Encounter. Date/Time Primary/Secondary Diagnosis Diagnosis Name Provider Source Oct 17, 2023 10:55 AM PRIMARY Lack of physical exercise DAMON ONEILL [place] [facility] [place] [facility] Plan of Treatment: Future Appointments (+ [...] - NONE [facility] [place] [facility] Oct 25, 2023 11:00 AM AMBULATORY [...] - NONE [facility] [place] [facility] Dec 06, 2023 11:00 AM AMBULATORY - NONE [place] Dec 11, 2023 10:00 AM AMBULATORY - NONE [facility] [place] [facility] Dec 11, 2023 01:00 PM AMBULATORY - MEDICINE [facility] [place] [facility] Dec 13, 2023 11:00 AM AMBULATORY - NONE [place] Dec 20, 2023 11:00 AM AMBULATORY - NONE [place] Dec 25, 2023 10:00 AM AMBULATORY - NONE [facility] [place] [facility] Dec 27, 2023 11:00 AM AMBULATORY - NONE [place] Jan 03, 2024 11:00 AM AMBULATORY - NONE [place] Jan 08, 2024 10:00 AM AMBULATORY - NONE [facility] [place] [facility] Jan 10, 2024 11:00 AM AMBULATORY [...] VA-TOBACCO FORMER USER [facility] [place] [facility] Tobacco Use History This section includes a history of the smoking, or tobacco-related health factors, that were collected on or before the date of the Encounter. The data comes from the [place] facility where the Encounter took place. Date/Time Smoking Status/Tobacco Use Comment F acility Jan 26, 2023 01:30 PM VA-TOBACCO QUIT 15 YRS OR MORE [facility] [place] [facility] Jan 27, 2022 11:00 AM VA-TOBACCO FORMER USER [facility] [place] [facility] Jan 27, 2022 11:00 AM VA-TOBACCO QUIT 15 YRS OR MORE [facility] [place] [facility] Sep 17, 2020 09:00 AM VA-TOBACCO FORMER USER [facility] [place] [facility] Sep 17, 2020 09:00 AM VA-TOBACCO QUIT 15 YRS OR MORE [facility] [place] [facility] Jun 04, 2019 02:57 PM VA-TOBACCO NEVER USED [facility] [place] [facility] Mar 14, 2018 11:23 AM VA-TOBACCO FORMER USER [facility] [place] [facility] Mar 14, 2018 11:23 AM VA-TOBACCO QUIT 15 YRS OR MORE [facility] Apr 04, 2017 12:30 PM QUIT TOBACCO USE > [facility] Apr 05, 2016 01:02 PM QUIT TOBACCO USE > 7 YEARS AGO quit in 1984 [facility] Encounter Notes: All associated encounter [...] COMPLETED GEROFIT VVC/VCM/VOD Telehealth Supervised Exercise NOTE [place] Provided informed consent to receive treatment via Telehealth., [place] mailed and has been made verbally aware of [facility] [place] practices. [place]'s Location: address on record unless specified below. Emergency Contact: on record unless specified below. [place] participated remotely in the Gerofit exercise program today through [place] Virtual Budget Counselor. Activities were focused on progression of their [...] whole health concerns. /johanny/ VIOLETTA FINK LICENSE BATTER SCALER Signed: 10/17/2023 11:09 DOUG ONEILL [facility]
--- OUTSIDE RECORDS SUMMARY | 2024-03-21 08:03 | XMS_ITS | Continuity of Care Document ---
Author Name [facility] Organization [facility] Care Team Providers Care Poolroom Table Attendant Name Role Phone [facility] Unavailable Unavailable Problems Combined list of problems [...] [facility] [place] [facility] Diagnosis: ICD-10-CM E66.811 Obesity, class 1 Active Diagnosis [facility] Diagnosis: ICD-10-CM Z68.30 Body mass index [BMI] 30.0-30.9, adult Active Diagnosis [facility] Diagnosis: ICD-10-CM G47.33 Obstructive sleep apnea (adult) (pediatric) Active Diagnosis [facility] Diagnosis: ICD-10-CM G47.30 Sleep apnea, unspecified Active Diagnosis [facility] [place] Diagnosis: ICD-10-CM E66.09 Other obesity due to excess calories Active Diagnosis [facility] Diagnosis: ICD-10-CM Z71.3 Dietary counseling and surveillance Active Diagnosis [facility] Diagnosis: ICD-10-CM Z72.3 Lack of physical exercise Active Diagnosis [facility] Diagnosis: ICD-10-CM Z73.3 Stress, not elsewhere classified Active Diagnosis [facility] Diagnosis: ICD-10-CM Z68.29 Body mass index [BMI] 29.0-29.9, adult Active Diagnosis [facility] Diagnosis: ICD-10-CM Z46.0 Encounter for fit/adjst of [...] TABLET BY MOUTH DAILY [facility]AL [facility] BROMOCRIPTI NE MESYLATE 0.8MG TAB TAKE THREE TABLETS BY MOUTH ONCE DAILY ORAL ACTIVE ,2016 [facility] CALCIUM 200MG (CA CITRATE-950 MG) TAB TAKE THREE TABLETS BY MOUTH DAILY ORAL ACTIVE ,2016 [facility] CARBOXYMETH YLCELLULOSE NA 0.5% SOLN,OPH INSTILL 1 DROP INTO EACH EYE FOUR TIMES A DAY FOR DRY EYE OPHTHA LMIC ACTIVE 09/25/2024 [id number] Cecily GEE ICHELE 2023 45 [facility] CETIRIZINE HCL 10MG TAB TAKE ONE TABLET BY MOUTH DAILY ORAL ACTIVE BRITT, [facility] CHOLECALCIF FORTINO 25MCG (1,000UNIT) TAB TAKE ONE TABLET BY MOUTH DAILY ORAL ACTIVE BRITT, [facility] LEVOTHYROXI NE NA 125MCG TAB (SYNTHROID) TAKE ONE TABLET BY MOUTH EVERY MORNING 30 MINUTES BEFORE BREAKFAS T ORAL ACTIVE [facility]EN [facility] LISINOPRIL 5MG TAB TAKE ONE TABLET BY MOUTH ONCE DAILY TO CONTROL BLOOD PRESSURE ORAL 01/27/2024 [id number] LEN MENDOZA 2022 90 [facility] [place] POTASSIUM 100MG TAB TAKE ONE TABLET BY MOUTH ONCE DAILY ORAL ACTIVE LEN MENDOZA 2017 [facility] METOPROLOL SUCCINATE 50MG TAB,SA TAKE ONE TABLET BY MOUTH ONCE DAILY ORAL ACTIVE LEN MENDOZA 2022 [facility] OTHER CAP/TAB TAKE 5 MG BY MOUTH DAILY ORAL ACTIVE BALWINDER, [facility] 2016 [facility] TAMSULOSIN HCL 0.4MG CAP TAKE 1 CAPSULE BY MOUTH ONCE DAILY ORAL ACTIVE LEN MENDOZA 2019 [facility] IELD Immunizations Combined list of available immunizations from the Department of Defense and Veterans Affairs facilities. Immunization Series Date Given Administered By Site Reaction Lot Number CVX Code Drug Instructional Design Manager Status Comments Source INFLUENZA, HIGH-DOSE, TRIVALENT, PF 2023 SHE REID SSA H RIGHT DELTO ID [id number] 135 complet ed [facility] INFLUENZA, HIGH-DOSE, QUADRIVALENT 2022 BIENVENIDO BANKS LEFT DELTO ID [id number] 197 complet ed [facility] COVID-19 (MODERNA), MRNA, LNP-S, PF, 100 MCG/0.5ML DOSE OR 50 MCG/0.25ML DOSE 3 2021 207 complet ed MOD; [id number]; 2 [facility] COVID-19 (MODERNA), MRNA, LNP-S, PF, 100 MCG OR 50 MCG DOSE 3 2020 207 complet ed MOD; [id number]; 2 [facility] INFLUENZA VACCINE, QUADRIVALENT, ADJUVANTED 2020 205 complet ed [facility] COVID-19 (MODERNA), MRNA, LNP-S, PF, 100 MCG/0.5 ML DOSE 2 2020 207 complet ed MOD; [id number]; 1 [facility] [place] COVID-19 (MODERNA), MRNA, LNP-S, PF, 100 MCG/0.5 ML DOSE 1 2020 207 complet ed MOD; [id number]; 1 [facility] [...] Left Deltoid [facility] [place] [facility] PNEUMOCOCCAL CONJUGATE PCV 13 2017 133 complet [...] Reference Range Date Interpretation Specimen Comments Source TSH THYROTROPIN [UNITS/VOLU ME] IN SERUM OR PLASMA 0.67 u[IU]/ mL 0.35 - 5.00 07/18 Specimen Type: SERUM No comment entered. Ordering Provider: ORACIO MENDOZA Report Released Date/Time: Jul 12, 2023 10:12 AM Reporting Lab: [facility] [place] [address] [address] Performing [facility]: [facility] [place] [facility] [address] [facility] [address] [facility] [place] [facility] LIPID PANEL, NON FASTING CHOLESTEROL [MASS/VOLUM E] IN SERUM OR PLASMA 119 mg/dL 07/18 Specimen Type: SERUM No comment entered. Ordering Provider: ORACIO MENDOZA Report Released Date/Time: Jul 12, 2023 10:12 AM Reporting Lab: [facility] [place] [address] [address] Performing Lab: [facility] [place] [facility] [address] [facility] [address] [facility] [place] [facility] LIPID PANEL, NON FASTING TRIGLYCERID E [MASS/VOLUM E] IN SERUM OR PLASMA 48 mg/dL 0 - 150 07/18 Specimen Type: SERUM No comment entered. Ordering Provider: ORACIO MENDOZA Report Released Date/Time: Jul 12, 2023 10:12 AM Reporting Lab: [facility] [place] [address] [address] Performing Lab: [facility] [place] [facility] [address] [facility] [address] [facility] LIPID PANEL, NON FASTING CHOLESTEROL IN LDL [MASS/VOLUM E] IN SERUM OR PLASMA BY CALCULATION 63 mg/dL 0 - 129 07/18 Specimen Type: SERUM No comment entered. Ordering Provider: ORACIO MENDOZA Report Released Date/Time: Jul 12, 2023 10:12 AM Reporting Lab: [facility] [place] [facility] [address] [facility] [address] Performing Lab: [facility] [address] [facility] [address] [facility]N [facility] LIPID PANEL, NON FASTING CHOLESTEROL .TOTAL/CHOL ESTEROL IN HDL [MASS RATIO] IN SERUM OR PLASMA 2.6 07/18 Specimen Type: SERUM No comment entered. Ordering Provider: ORACIO MENDOZA Report Released Date/Time: Jul 12, 2023 10:12 AM Reporting Lab: [facility] [place] [facility] [address] [facility] [address] Performing Lab: [facility] [address] [facility] [address] [facility] LIPID PANEL, NON FASTING CHOLESTEROL IN HDL [MASS/VOLUM E] IN SERUM OR PLASMA 46 mg/dL 40 - 60 07/18 Specimen Type: SERUM No comment entered. Ordering Provider: ORACIO MENDOZA Report Released Date/Time: Jul 12, 2023 10:12 AM Reporting Lab: [facility] [place] [facility] [address] [facility] [address] Performing Lab: [facility] [place] [facility] [address] [facility] [address] [facility] [place] [facility] LIVER FUNCTION PROTEIN [MASS/VOLUM E] IN SERUM OR PLASMA 6.7 g/dL 6.0 - 8.3 07/18 Specimen Type: SERUM No comment entered. Ordering Provider: ORACIO MENDOZA Report Released Date/Time: Jul 12, 2023 10:12 AM Reporting Lab: [facility] [place] [facility] [address] [facility] [address] Performing Lab: [facility] [place] [facility] [address] [facility] [address] [facility] [place] [facility] LIVER FUNCTION ALBUMIN [MASS/VOLUM E] IN SERUM OR PLASMA 3.8 g/dL 3.5 - 5.0 07/18 Specimen Type: SERUM No comment entered. Ordering Provider: ORACIO MENDOZA Report Released Date/Time: Jul 12, 2023 10:12 AM Reporting Lab: [facility] [place] [facility] [address] [facility] [address] Performing Lab: [facility] [place] [facility] [address] [facility] [address] [facility] [place] [facility] LIVER FUNCTION ALKALINE PHOSPHATASE [ENZYMATIC ACTIVITY/VO LUME] IN SERUM OR PLASMA 55 U/L 40 - 150 07/18 Specimen Type: SERUM No comment entered. Ordering Provider: ORACIO MENDOZA Report Released Date/Time: Jul 12, 2023 10:12 AM Reporting Lab: [facility] [place] [facility] [address] [facility] [address] Performing Lab: [facility] [place] [facility] [address] [facility] [address] [facility] [place] [facility] LIVER FUNCTION ASPARTATE AMINOTRANSF ERASE [ENZYMATIC ACTIVITY/VO LUME] IN SERUM OR PLASMA 26 U/L 5 - 34 07/18 Specimen Type: SERUM No comment entered. Ordering Provider: ORACIO MENDOZA Report Released Date/Time: Jul 12, 2023 10:12 AM Reporting Lab: [facility] [place] [facility] [address] [facility] [address] Performing Lab: [facility] [place] [facility] [address] [facility] [address] [facility] [place] [facility] LIVER FUNCTION ALANINE AMINOTRANSF ERASE [ENZYMATIC ACTIVITY/VO LUME] IN SERUM OR PLASMA 26 U/L 07/18 Specimen Type: SERUM No comment entered. Ordering Provider: ORACIO MENDOZA Report Released Date/Time: Jul 12, 2023 10:12 AM Reporting Lab: [facility] [place] [facility] [address] [facility] [address] Performing Lab: [facility] [place] [facility] [address] [facility] [address] [facility] [place] [facility] LIVER FUNCTION BILIRUBIN.T OTAL [MASS/VOLUM E] IN SERUM OR PLASMA 0.6 mg/dL 0.2 - 1.2 07/18 Specimen Type: SERUM No comment entered. Ordering Provider: ORACOI MENDOZA Report Released Date/Time: Jul 12, 2023 10:12 AM Reporting Lab: [facility] [place] [facility] [address] [facility] [address] Performing Lab: [facility] [place] [address] [address] [facility] [place] [facility] BASIC METABOLIC PANEL (non-fast ing) UREA NITROGEN [MASS/VOLUM E] IN SERUM OR PLASMA 19 mg/dL 7 - 07/18 Specimen Type: SERUM No comment entered. Ordering Provider: ORACIO MENDOZA Report Released Date/Time: Jul 12, 2023 10:12 AM Reporting Lab: [facility] [place] [facility] [address] [facility] [address] Performing Lab: [facility] [place] [address] [address] [facility] [place] [facility] BASIC METABOLIC PANEL (non-fast ing) GLUCOSE [MASS/VOLUM E] IN SERUM OR PLASMA 95 mg/dL 65 - 100 07/18 Specimen Type: SERUM No comment entered. Ordering Provider: ORACIO MENDOZA Report Released Date/Time: Jul 12, 2023 10:12 AM Reporting Lab: [facility] [place] [facility] [address] [facility] [address] Performing Lab: [facility] [place] [address] [address] [facility] [place] [facility] BASIC METABOLIC PANEL (non-fast ing) SODIUM [MOLES/VOLU ME] IN SERUM OR PLASMA 142 mmol/L 135 - 145 07/18 Specimen Type: SERUM No comment entered. Ordering Provider: ORACIO MENDOZA Report Released Date/Time: Jul 12, 2023 10:12 AM Reporting Lab: [facility]ENTERTRN [facility]ITALUSE[address] [address] Performing Lab: [facility]RJ[facility] CENTERTRN [facility]ITALUSE[address] [address] [facility]RCL[facility]OSPITALN [facility]OS[facility]ITALUSE [facility] BASIC METABOLIC PANEL (non-fast ing) POTASSIUM [MOLES/VOLU ME] IN SERUM OR PLASMA 4.7 mmol/L 3.5 - 5.0 07/18 Specimen Type: SERUM No comment entered. Ordering Provider: ORACIO MENDOZA Report Released Date/Time: Jul 12, 2023 10:12 AM Reporting Lab: [facility]RJ[facility]ENTERTRN [facility]PITALUSE[address] [address] Performing Lab: [facility] TRN [facility]ITALUSE[address] [address] [facility] BASIC METABOLIC PANEL (non-fast ing) CHLORIDE [MOLES/VOLU ME] IN SERUM OR PLASMA 107 mmol/L 100 - 110 07/18 Specimen Type: SERUM No comment entered. Ordering Provider: ORACIO MENDOZA Report Released Date/Time: Jul 12, 2023 10:12 AM Reporting Lab: [facility]N [place] [address] Performing Lab: [facility] TRN [facility]ITALUSE[address] [address] [facility]RCL[facility]OSPITALN [facility]OSPITALUSE [facility] BASIC METABOLIC PANEL (non-fast ing) CARBON DIOXIDE, TOTAL [MOLES/VOLU ME] IN SERUM OR PLASMA 28 meq/L 20 - 30 07/18 Specimen Type: SERUM No comment entered. Ordering Provider: ORACIO MENDOZA Report Released Date/Time: Jul 12, 2023 10:12 AM Reporting Lab: [facility] [place] [address] Performing Lab: [facility] [place] [facility] [address] [facility] [address] [facility] [place] [facility] BASIC METABOLIC PANEL (non-fast ing) CREATININE [MASS/VOLUM E] IN SERUM OR PLASMA 0.90 mg/dL 0.50 - 1.40 07/18 Specimen Type: SERUM No comment entered. Ordering Provider: ORACIO MENDOZA Report Released Date/Time: Jul 12, 2023 10:12 AM Reporting Lab: [facility] [place] [facility] [address] [facility] [address] Performing Lab: [facility] [place] [facility] [address] [facility] [address] [facility] [place] [facility] BASIC METABOLIC PANEL (non-fast ing) GLOMERULAR FILTRATION RATE/1.73 SQ M.PREDICTED [VOLUME RATE/AREA] IN SERUM, PLASMA OR BLOOD BY CREATININE- BASED FORMULA (CKD-EPI 2020) 86 mL/min 60 07/18 Specimen Type: SERUM No comment entered. Ordering Provider: ORACIO MENDOZA Report Released Date/Time: Jul 12, 2023 10:12 AM Reporting Lab: [facility] [place] [facility] [address] [facility] [address] Performing Lab: [facility] [place] [address] [address] [facility] [place] [facility] CBC LEUKOCYTES [#/VOLUME] IN BLOOD BY AUTOMATED COUNT 7.33 10*3/u L 4.50 - 11.00 07/18 Specimen Type: BLOOD No comment entered. Ordering Provider: ORACIO MENDOZA Report Released Date/Time: Jul 12, 2023 10:12 AM Reporting Lab: [facility] [place] [facility] [address] [facility] [address] Performing Lab: [facility] [place] [address] [address] [facility] [place] [facility] CBC ERYTHROCYTE S [#/VOLUME] IN BLOOD BY AUTOMATED COUNT 4.94 10*6/u L 4.23 - 5.66 07/18 Specimen Type: BLOOD No comment entered. Ordering Provider: ORACIO MENDOZA Report Released Date/Time: Jul 12, 2023 10:12 AM Reporting Lab: [facility] [place] [facility] [address] [facility] [address] Performing Lab: [facility] [place] [facility] [address] [facility] [address] [facility] [place] [facility] CBC HEMOGLOBIN [MASS/VOLUM E] IN BLOOD 15.1 g/dL 12.8 - 17 07/18 Specimen Type: BLOOD No comment entered. Ordering Provider: ORACIO MENDOZA Report Released Date/Time: Jul 12, 2023 10:12 AM Reporting Lab: [facility] [place] [facility] [address] [facility] [address] Performing Lab: [facility] [place] [address] [address] [facility] [place] [facility] CBC HEMATOCRIT [VOLUME FRACTION] OF BLOOD BY AUTOMATED COUNT 46.2 39.2 - 50.4 07/18 Specimen Type: BLOOD No comment entered. Ordering Provider: ORACIO MENDOZA Report Released Date/Time: Jul 12, 2023 10:12 AM Reporting Lab: [facility] [place] [facility] [address] [facility] [address] Performing Lab: [facility] [place] [facility] [address] [facility] [address] [facility] [place] [facility] CBC MCV [ENTITIC VOLUME] BY AUTOMATED COUNT 93.5 fL 82 - 99 07/18 Specimen Type: BLOOD No comment entered. Ordering Provider: ORACIO MENDOZA Report Released Date/Time: Jul 12, 2023 10:12 AM Reporting Lab: [facility] [place] [facility] [address] [facility] [address] Performing Lab: [facility] [place] [facility] [address] [facility] [address] [facility] [place] [facility] CBC MCHC [MASS/VOLUM E] BY AUTOMATED COUNT 32.7 g/dL 30.8 - 35.1 07/18 Specimen Type: BLOOD No comment entered. Ordering Provider: ORACIO MENDOZA Report Released Date/Time: Jul 12, 2023 10:12 AM Reporting Lab: [facility] [place] [facility] [address] [facility] [address] Performing Lab: [facility] [place] [facility] [address] [facility] [address] [facility] [place] [facility] CBC PLATELETS [#/VOLUME] IN BLOOD BY AUTOMATED COUNT 181 10*3/u L 140 - 360 07/18 Specimen Type: BLOOD No comment entered. Ordering Provider: ORACIO MENDOZA Report Released Date/Time: Jul 12, 2023 10:12 AM Reporting Lab: [facility] [place] [address] [address] Performing Lab: [facility] [place] [address] [address] [facility] [place] [facility] CBC ERYTHROCYTE DISTRIBUTIO N WIDTH [RATIO] BY AUTOMATED COUNT 13.2 12.0 - 16.0 07/18 Specimen Type: BLOOD No comment entered. Ordering Provider: ORACIO MENDOZA Report Released Date/Time: Jul 12, 2023 10:12 AM Reporting Lab: [facility] [place] [address] [address] Performing Lab: [facility] [place] [address] [address] [facility] [place] [facility] CBC MCH [ENTITIC MASS] BY AUTOMATED COUNT 30.6 pg 26.2 - 32.6 07/18 Specimen Type: BLOOD No comment entered. Ordering Provider: ORACIO MENDOZA Report Released Date/Time: Jul 12, 2023 10:12 AM Reporting Lab: [facility] [place] [address] [address] Performing Lab: [facility] [place] [address] [address] [facility] [place] [facility] THYROID T4 FREE(FT4) THYROXINE (T4) FREE [MASS/VOLUM E] IN SERUM OR PLASMA 1.30 ng/dL 0.6 - 1.6 01/24 Specimen Type: SERUM No comment entered. Ordering Provider: ORACIO MENDOZA Report Released Date/Time: Jan 15, 2023 04:07 PM Reporting Lab: [facility] [place] [facility] [address] [facility] [address] Performing Lab: [facility] [place] [facility] [address] [facility] [address] [facility]ITALN [place] [facility] TSH THYROTROPIN [UNITS/VOLU ME] IN SERUM OR PLASMA 0.36 u[IU]/ mL 0.35 - 5.00 01/24 Specimen Type: SERUM No comment entered. Ordering Provider: ORACIO MENDOZA Report Released Date/Time: Jan 15, 2023 04:07 PM Reporting Lab: [facility] [place] [facility] [address] [facility] [address] Performing Lab: [facility]RJ[facility] CENTERTRN [facility] HOSPITALUSETS [facility] [address] [facility] [address] [facility]RCL[facility]ITALN [facility]ITALUSE [facility] VITAMIN D (25-OH) 25-HYDROXYV ITAMIN D3 [MASS/VOLUM E] IN SERUM OR PLASMA 46 ng/mL 20 - 50 01/24 Specimen Type: SERUM No comment entered. Ordering Provider: ORACIO MENDOZA Report Released Date/Time: Jan 15, 2023 04:07 PM Reporting Lab: [facility] [place] [facility] [address] [facility] [address] Performing Lab: [facility]RJ[facility]ENTERTRN [facility] HOSPITALUSETS [address] [address] [facility]RCL[facility]ITALN [facility]USE [facility] LIPID PANEL FASTING CHOLESTEROL [MASS/VOLUM E] IN SERUM OR PLASMA 109 mg/dL 01/24 Specimen Type: SERUM No comment entered. Ordering Provider: ORACIO MENDOZA Report Released Date/Time: Jan 15, 2023 04:07 PM Reporting Lab: [facility] [place] [facility] [address] [facility] [address] Performing Lab: [facility] [place] [facility] [address] [facility] [address] [facility] [place] [facility] LIPID PANEL FASTING TRIGLYCERID E [MASS/VOLUM E] IN SERUM OR PLASMA 50 mg/dL 0 - 150 01/24 Specimen Type: SERUM No comment entered. Ordering Provider: ORACIO MENDOZA Report Released Date/Time: Jan 15, 2023 04:07 PM Reporting Lab: [facility] [place] [facility] [address] [facility] [address] Performing Lab: [facility] [place] [facility] [address] [facility] [address] [facility]RJ[facility]ENTERTRN [facility]USE [facility] LIPID PANEL FASTING CHOLESTEROL IN LDL [MASS/VOLUM E] IN SERUM OR PLASMA BY CALCULATION 59 mg/dL 0 - 129 01/24 Specimen Type: SERUM No comment entered. Ordering Provider: ORACIO MENDOZA Report Released Date/Time: Jan 15, 2023 04:07 PM Reporting Lab: [facility] [place] [facility] [address] [facility] [address] Performing Lab: [facility] [place] [facility] [address] [facility] [address] [facility]RJ[facility]ENTERTRN [facility]USE [facility] LIPID PANEL FASTING CHOLESTEROL .TOTAL/CHOL ESTEROL IN HDL [MASS RATIO] IN SERUM OR PLASMA 2.7 01/24 Specimen Type: SERUM No comment entered. Ordering Provider: ORACIO MENDOZA Report Released Date/Time: Jan 15, 2023 04:07 PM Reporting Lab: [facility] [place] [facility] [address] [facility] [address] Performing Lab: [facility] [place] [facility] [address] [facility] [address] [facility] LIPID PANEL FASTING CHOLESTEROL IN HDL [MASS/VOLUM E] IN SERUM OR PLASMA 40 mg/dL 40 - 60 01/24 Specimen Type: SERUM No comment entered. Ordering Provider: ORACIO MENDOZA Report Released Date/Time: Jan 15, 2023 04:07 PM Reporting Lab: [facility] [place] [facility] [address] [facility] [address] Performing Lab: [facility] [place] [facility] [address] [facility] [address] [facility] CBC LEUKOCYTES [#/VOLUME] IN BLOOD BY AUTOMATED COUNT 6.50 10*3/u L 4.50 - 11.00 01/24 Specimen Type: BLOOD No comment entered. Ordering Provider: ORACIO MENDOZA Report Released Date/Time: Jan 15, 2023 04:07 PM Reporting Lab: [facility] [place] [facility] [address] [facility] [address] Performing Lab: [facility] [place] [facility] [address] [facility] [address] [facility] [place] CBC ERYTHROCYTE S [#/VOLUME] IN BLOOD BY AUTOMATED COUNT 4.73 10*6/u L 4.23 - 5.66 01/24 Specimen Type: BLOOD No comment entered. Ordering Provider: ORACIO MENDOZA Report Released Date/Time: Jan 15, 2023 04:07 PM Reporting Lab: [facility] [place] [facility] [address] [facility] [address] Performing Lab: [facility] [place] [facility] [address] [place] [id number] [facility] [place] [facility] CBC HEMOGLOBIN [MASS/VOLUM E] IN BLOOD 14.7 g/dL 12.8 - 17 01/24 Specimen Type: BLOOD No comment entered. Ordering Provider: ORACIO MENDOZA Report Released Date/Time: Jan 15, 2023 04:07 PM Reporting Lab: [facility] [place] [facility] [address] [facility] [address] Performing Lab: [facility] [place] [facility] [address] [place] [phone] [facility] [place] CBC HEMATOCRIT [VOLUME FRACTION] OF BLOOD BY AUTOMATED COUNT 44.2 39.2 - 50.4 01/24 Specimen Type: BLOOD No comment entered. Ordering Provider: ORACIO MENDOZA Report Released Date/Time: Jan 15, 2023 04:07 PM Reporting Lab: [facility] [address] [facility] [address] Performing Lab: [facility] [address] [facility] [address] [facility] CBC MCV [ENTITIC VOLUME] BY AUTOMATED COUNT 93.4 fL 82 - 99 01/24 Specimen Type: BLOOD No comment entered. Ordering Provider: ORACIO MENDOZA Report Released Date/Time: Jan 15, 2023 04:07 PM Reporting Lab: [facility] [address] [facility] [address] Performing Lab: [facility] [place] [address] [facility] [address] [facility] CBC MCHC [MASS/VOLUM E] BY AUTOMATED COUNT 33.3 g/dL 30.8 - 35.1 01/24 Specimen Type: BLOOD No comment entered. Ordering Provider: ORACIO MENDOZA Report Released Date/Time: Jan 15, 2023 04:07 PM Reporting Lab: [facility] [place] [address] [facility] [address] Performing Lab: [facility] [place] [facility] [address] [facility] [address] [facility] CBC PLATELETS [#/VOLUME] IN BLOOD BY AUTOMATED COUNT 194 10*3/u L 140 - 360 01/24 Specimen Type: BLOOD No comment entered. Ordering Provider: ORACIO MENDOZA Report Released Date/Time: Jan 15, 2023 04:07 PM Reporting Lab: [facility] [place] [facility] [address] [facility] [address] Performing Lab: [facility] [address] [address] [facility] CBC ERYTHROCYTE DISTRIBUTIO N WIDTH [RATIO] BY AUTOMATED COUNT 13.0 12.0 - 16.0 01/24 Specimen Type: BLOOD No comment entered. Ordering Provider: ORACIO MENDOZA Report Released Date/Time: Jan 15, 2023 04:07 PM [facility] [place] [facility] [address] [facility] [address] Performing Lab: [facility] [place] [facility] [address] [facility] [address] [facility] CBC MCH [ENTITIC MASS] BY AUTOMATED COUNT 31.1 pg 26.2 - 32.6 01/24 Specimen Type: BLOOD No comment entered. Ordering Provider: ORACIO MENDOZA Report Released Date/Time: Jan 15, 2023 04:07 PM [facility] [place] [facility] [address] [facility] [address] Performing [facility]: [facility] [place] [facility] [address] [facility] [address] [facility] [place] [facility] Vital Signs Combined list of inpatient and outpatient Vital Signs from Department of Defense and Veterans Affairs, ranging from 12 months to all on record, depending upon the facility. Vital Sign Value Date Comments Source WEIGHT 213 03/13/2024 11:16:32 [place] BMI 32kg/m2 03/13/2024 11:16:32 [place] WEIGHT 213.2 03/06/2024 15:47:02 [place] BMI 32kg/m2 03/06/2024 15:47:02 [place] WEIGHT 214.6 02/28/2024 11:00:00 [place] BMI 33kg/m2 02/28/2024 11:00:00 [place] WEIGHT 215.3 02/14/2024 12:02:24 [place] BMI 33kg/m2 02/14/2024 12:02:24 [place] WEIGHT 212.1 02/07/2024 11:41:04 [place] BMI 32kg/m2 02/07/2024 11:41:04 [place] Encounters Combined list of: 1) Encounters from Department of [facility] 2) Encounters from the Department of Defense facilities going back up to 280 months. Location Location Details Encounter Type Encounter Number Reason For Visit Attending Provider ADM Date DC Date Status Disposition Source [facility] EXERCISE CLASS [id number] 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
Cecily ONEILLIN 09/20 [facility] [place] GROUP BEHAVE COUNS 2-10 [id number] Diagnos is: ICD-10- CM E66.09 Other obesity due to excess calorie s
EVAN KRAMER P 09/21 [place] [facility] EXERCISE CLASS [id number] 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
ILIANA UNDERWOOD 09/21 [facility] EXERCISE CLASS [id number] 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
Cecily ONEILL SHANICE 09/22 [facility] EXERCISE CLASS [id number] 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
CRISTAL LAZCANO LLCourtney M 09/25 [facility] EXERCISE CLASS [id number] 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
CRISTAL LAZCANO LLY M 10/02 [facility] Outpatient Encounter [id number] 10/03 [facility] Outpatient Encounter [id number] REJIGuzman JON Ghassan 10/03 [facility] [place] GROUP BEHAVE COUNS 2-10 [id number] [id number] Diagnos is: ICD-10- CM E66.09 Other obesity due to excess calorie s
EVAN KRAMER P 10/05 [place] [facility] EXERCISE CLASS [id number] 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
CRISTAL LAZCANO M 10/06 [facility] WEIGHT MGMT CLASS [id number] Diagnos is: ICD-10- CM E66.3 Overwei ght<br/ > GORDON PATHAK 10/12 [place] [facility] EXERCISE CLASS [id number] 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
LARISA COATES 10/20 [facility] EXERCISE CLASS [id number] 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
LARISA COATES 10/23 [facility] NUTRITION CLASS [id number] Diagnos is: ICD-10- CM Z71.3 Dietary peer counselor ing and surveil nancy<b r/> RAKESH GRACIA 10/24 [facility] UNLISTED PHYSCL MED/[place] PX [id number] 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
LARISA COATES 10/24 [facility] [place] EXERCISE CLASS [id number] 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
Cecily ONEILL 10/25 [facility] [place] [place] WEIGHT MGMT CLASS [id number] [id number] Diagnos is: ICD-10- CM Z68.29 Body mass index [BMI] 29.0-29 .9, adult<b r/> GORDON PATHAK 10/26 [place] [facility] EXERCISE CLASS [id number] [id number] 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
LARISA COATES 10/27 [facility] [place] EXERCISE CLASS [id number] [id number] 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
Cecily ONEILL SHANICE 10/30 [facility] Outpatient Encounter [id number] 10/31 [facility] EXERCISE CLASS [id number] [id number] 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
MAICecily SHANICE 11/01 [facility] [place] EXERCISE CLASS [id number] 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
ILIANA UNDERWOOD 11/03 [facility] [place] EXERCISE CLASS [id number] 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
CRISTAL LAZCANO 11/06 [facility] [place] NUTRITION CLASS [id number] Diagnos is: ICD-10- CM Z71.3 Dietary peer counselor ing and surveil nancy<b r/> RAKESH GRACIA 11/07 [facility] [place] [place] GROUP BEHAVE COUNS 2-10 [id number] [id number] Diagnos is: ICD-10- CM E66.09 Other obesity due to excess calorie s
EVAN KRAMER 11/09 [place] [facility] EXERCISE CLASS [id number] [id number] 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
Cecily ONEILLIN 11/15 [facility] [place] LD WEIGHT MGMT CLASS [id number] Diagnos is: ICD-10- CM Z68.29 Body mass index [BMI] 29.0-29 .9, adult<b r/> GORDON PATHAK 11[facility]16 [facility] [place] [facility] EXERCISE CLASS [id number] 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
LARISA COATES 11/17 [facility] [place] EXERCISE CLASS [id number] [id number] 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
CRISTAL LAZCANO 11/20 [facility] [place] EXERCISE CLASS [id number] 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
Cecily ONEILL 11/22 [facility] [place] GROUP BEHAVE COUNS 2-10 [id number] [id number] Diagnos is: ICD-10- CM E66.3 Overwei ght<br/ > EVAN KRAMER 11/23 [facility] [place] [facility] [place] [facility] EXERCISE CLASS [id number] [id number] 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
ILIANA UNDERWOOD 11/23 [facility] NUTRITION CLASS [id number] Diagnos is: ICD-10- CM Z71.3 Dietary peer counselor ing and surveil nancy<b r/> RAKESH GRACIA 11/28 [facility] EXERCISE CLASS [id number] [id number] 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
CRISTAL LAZCANO 11/29 [facility] Out[facility] En[facility] [id number] 11/29 [facility] [place] WEIGHT MGMT CLASS [id number] Diagnos is: ICD-10- CM Z68.29 Body mass index [BMI] 29.0-29 .9, adult<b r/> GORDON PATHAK 11/30 [place] GROUP BEHAVE COUNS 2-10 [id number] [id number] Diagnos is: ICD-10- CM E66.3 Overwei ght<br/ > EVAN KRAMER 12/07 [place] [facility] EXERCISE CLASS [id number] [id number] 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
Cecily ONEILL 12/13 [facility] [place] WEIGHT MGMT CLASS [id number] [id number] Diagnos is: ICD-10- CM Z68.29 Body mass index [BMI] 29.0-29 .9, adult<b r/> GORDON PATHAK 12/14 [place] [facility] EXERCISE CLASS [id number] [id number] 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
CRISTAL LAZCANO M 12/15 [facility] [place] EXERCISE CLASS [id number] [id number] 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
CRISTAL LAZCANO M 12/18 [facility] EXERCISE CLASS [id number] [id number] 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
LARISA COATES B 12/20 [facility] [place] [place] WEIGHT MGMT CLASS [id number] Diagnos is: ICD-10- CM Z68.29 Body mass index [BMI] 29.0-29 .9, adult<b r/> GORDON PATHAK 12/21 [place] [facility] EXERCISE CLASS [id number] [id number] 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
CRISTAL LAZCANO M 12/25 [facility] [place] [place] Outpatient Encounter [id number] 12/28 [facility] [place] [place] WEIGHT MGMT CLASS [id number] [id number] Diagnos is: ICD-10- CM Z68.29 Body mass index [BMI] 29.0-29 .9, adult<b r/> GORDON PATHAK 01/04 [place] [facility] GROUP BEHAVE COUNS 2-10 [id number] [id number] Diagnos is: ICD-10- CM E66.3 Overwei ght<br/ > EVAN KRAMER 01/11 [place] [facility] EXERCISE CLASS [id number] [id number] 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
CRISTAL LAZCANO LLY M 01/12 [facility] EXERCISE CLASS [id number] 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
CRISTAL LAZCANO LLY M 01/15 [facility] EXERCISE CLASS [id number] [id number] 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
Cecily ONEILL 01/17 [facility] [place] LD GROUP BEHAVE COUNS 2-10 [id number] [id number] Diagnos is: ICD-10- CM E66.3 Overwei ght<br/ > NAIEVAN P 01/18 [facility] [place] [facility] EXERCISE CLASS [id number] [id number] 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
ILIANA UNDERWOOD 01/18 [facility] Out[facility] Encounter [id number] 01/18 [facility] EXERCISE CLASS [id number] [id number] 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
LARISA COATES 01/19 [facility] EXERCISE CLASS [id number] [id number] 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
Cecily ONEILL 01/24 [facility] [place] Outpatient Encounter [id number] 01/25 [facility] [place] WEIGHT MGMT CLASS [id number] [id number] Diagnos is: ICD-10- CM Z68.29 Body mass index [BMI] 29.0-29 .9, adult<b r/> GORDON PATHAK 01/25 [place] [facility] EXERCISE CLASS [id number] [id number] 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
CRISTAL LAZCANO 01/26 [facility] [place] OFFICE O/P EST MOD 30-39 MIN [id number] [id number] Diagnos is: ICD-10- CM M17.9 Osteoar thritis of knee, unspeci fied
Guzman MENDOZA 01/26 [facility] [place] EXERCISE CLASS [id number] [id number] 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
CRISTAL LAZCANO M 01/29 [facility] [place] PT EDUCATION NOC GROUP [id number] [id number] Diagnos is: ICD-10- CM Z71.3 Dietary peer counselor ing and surveil nancy<b r/> RAKESH GRACIA 01/30 [facility] [place] GROUP BEHAVE COUNS 2-10 [id number] [id number] Diagnos is: ICD-10- CM E66.09 Other obesity due to excess calorie s
EVAN KRAMER P 02/01 [facility] [place] [facility] EXERCISE CLASS [id number] [id number] 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
CRISTAL LAZCANO M 02/05 [facility] [place] [place] EXERCISE CLASS [id number] [id number] 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
Cecily ONEILL 02/07 [facility] [place] [facility] WEIGHT MGMT CLASS [id number] [id number] Diagnos is: ICD-10- CM Z68.29 Body mass index [BMI] 29.0-29 .9, adult<b r/> GORDON PATHAK 02/08 [facility] [place] [facility] EXERCISE CLASS [id number] [id number] 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
CRISTAL LAZCANO M 02/09 [facility] [place] [place] [place] [facility] EXERCISE CLASS [id number] [id number] 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
CRISTAL LAZCANO M 02/12 [facility] [place] [place] [place] [facility] SELF-MGMT EDUC/TRAIN 2-4 [place] [id number] [id number] Diagnos is: ICD-10- CM Z71.3 Dietary peer counselor ing and surveil nancy<b r/> RAKESH GRACIA 02/13 [facility] EXERCISE CLASS [id number] [id number] 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
Cecily ONEILL SHANICE 02/14 [facility] EXERCISE CLASS [id number] [id number] 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
NENOCRISTAL HONG M 02/19 [facility] EXERCISE CLASS [id number] [id number] 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
Cecily ONEILL SHANICE 02/21 [facility] Outpatient Encounter [id number] Diagnos is: ICD-10- CM Z02.89 Encount er for other adminis trative examina tions<b r/> ZANDER SANCHEZ A 02/22 [facility] [place] [place] [place] WEIGHT MGMT CLASS [id number] [id number] Diagnos is: ICD-10- CM Z68.29 Body mass index [BMI] 29.0-29 .9, adult<b r/> GORDON PATHAK A 02/22 [place] [facility] EXERCISE CLASS [id number] [id number] 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
LARISA COATES 02/23 [facility] EXERCISE CLASS [id number] [id number] 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
CRISTAL LAZCANO M 02/26 [facility] EXERCISE CLASS [id number] [id number] 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
LARISA COATES B 02/27 [facility] EXERCISE CLASS [id number] [id number] 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
Cecily ONEILL 02/28 [facility] [place] [place] WEIGHT MGMT CLASS [id number] [id number] Diagnos is: ICD-10- CM Z68.29 Body mass index [BMI] 29.0-29 .9, adult<b r/> GORDON PATHAK 03/01 [place] [facility] Out[facility] [id number] 03/05 [facility] [place] EXERCISE CLASS [id number] [id number] 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
SYDNEYCRISTAL LEAL M 03/05 [facility] [place] En[facility] [id number] 03/05 [facility] SELF-MGMT EDUC & TRA[place] 1 [place] [id number] [id number] Diagnos is: ICD-10- CM G47.33 Obstruc tive sleep apnea (adult) (pediat amparo)
SHELBIMATTEO AMPARO 03/05 [facility] EXERCISE CLASS [id number] [id number] 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
ILIANA UNDERWOOD 03/07 [facility] [place] LD GROUP BEHAVE COUNS 2-10 [id number] [id number] Diagnos is: ICD-10- CM E66.09 Other obesity due to excess calorie s
EVAN KRAMER P 03/08 [place] [facility] EXERCISE CLASS 57213-5.63 [id number] 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
LARISA COATES 03/09 [facility] [place] [place] [facility] EXERCISE CLASS [id number] [id number] 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
Cecily ONEILL 03/14 [facility] [place] [facility] GROUP BEHAVE COUNS 2-10 27079-8.63 [id number] Diagnos is: ICD-10- CM E66.3 Overwei ght<br/ > EVAN KRAMER CHABOBBY P 03/15 [place] [facility] SLEEP STUDY UNATT&RESP EFFT 89256-8.63 [id number] Diagnos is: ICD-10- CM G47.33 Obstruc tive sleep apnea (adult) (pediat amparo)
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
Cecily ONEILL SHANICE 03/21 [facility] [place] [place] [facility] EXERCISE CLASS 30017-6.63 [id number] 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
LARISA COATES 03/23 [facility] [place] [facility] PT EDUCATION NOC GROUP 15815-2.63 [id number] Diagnos is: ICD-10- CM Z71.3 Dietary peer counselor ing and surveil nancy<b r/> RAKESH GRACIA 03/27 [facility] [place] [place] [facility] EXERCISE CLASS 14140-2.63 [id number] 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
Cecily ONEILL 03/28 [facility] [place] [facility] SLEEP STUDY UNATT&RESP EFFT 90622-3.68 [id number] Diagnos is: ICD-10- CM G47.33 Obstruc tive sleep apnea (adult) (pediat amparo)
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
Cecily ONEILL 04/04 [facility] [place] [facility] LD GROUP BEHAVE COUNS 2-10 36508-4.63 [id number] Diagnos is: ICD-10- CM E66.09 Other obesity due to excess calorie s
EVAN KRAMER P 04/05 [place] [facility] LD GROUP BEHAVE COUNS 2-10 93565-8.63 [id number] Diagnos is: ICD-10- CM E66.3 Overwei ght<br/ > EVAN KRAMER P 04/05 [place] [facility] PT EDUCATION NOC GROUP 15520-2.63 [id number] Diagnos is: ICD-10- CM Z71.3 Dietary peer counselor ing and surveil nancy<b r/> RAKESH GRACIA 04/10 [facility] [place] [facility] WEIGHT MGMT CLASS 13206-0.63 [id number] Diagnos is: ICD-10- CM Z68.29 Body mass index [BMI] 29.0-29 .9, adult<b r/> GORDON PATHAK 04/12 [facility] [place] [facility] EXERCISE CLASS 53377-3.63 [id number] 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
Cecily ONEILL 04/18 [facility] [place] [facility] WEIGHT MGMT CLASS 98020-3.63 [id number] Diagnos is: ICD-10- CM Z68.29 Body mass index [BMI] 29.0-29 .9, adult<b r/> GORDON PATHAK 04/19 [place] [facility] CLASS 87404-5.63 [id number] 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
Cecily ONEILL 04/25 [facility] [place] [facility] LD WEIGHT MGMT CLASS 92129-6.63 [id number] Diagnos is: ICD-10- CM Z68.29 Body mass index [BMI] 29.0-29 .9, adult<b r/> GORDON PATHAK 04/26 [facility] EX[facility] CLASS 66407-5.63 [id number] 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
CHALLET,KE LLY M 04/27 [facility] [place] [facility] CLASS 55025-7.63 [id number] 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
CHALLET,KE LLY M 04/30 [facility] EXERCISE CLASS 48442-7.63 [id number] 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
Cecily ONEILL 05/02 [facility] [place] [place] [facility] WEIGHT MGMT CLASS 62185-1.63 [id number] Diagnos is: ICD-10- CM Z68.29 Body mass index [BMI] 29.0-29 .9, adult<b r/> GORDON PATHAK 05/03 [facility] EXERCISE CLASS 25457-2.63 [id number] 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
LARISA COATES 05/04 [facility] [place] EXERCISE CLASS 77141-5.63 [id number] 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
CHALLET,KE LLY M 05/07 [facility] EXERCISE CLASS 84194-7.63 [id number] 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
Cecily ONEILL SHANICE 05/09 [facility] [place] LD GROUP BEHAVE COUNS 2-10 58720-6.63 [id number] Diagnos is: ICD-10- CM E66.09 Other obesity due to excess calorie s
EVAN KRAMER P 05/10 [facility] [place] [facility] EXERCISE CLASS 54476-6.63 [id number] 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
CRISTAL LAZCANO 05/11 [facility] PT EDUCATION NOC GROUP 31636-4.63 [id number] Diagnos is: ICD-10- CM Z71.3 Dietary peer counselor ing and surveil nancy<b r/> RAKESH GRACIA 05/15 [facility] [place] EXERCISE CLASS 28672-2.63 [id number] 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
eCcily ONEILL SHANICE 05/16 [facility] [place] [place] WEIGHT MGMT CLASS 10196-7.63 [id number] Diagnos is: ICD-10- CM Z68.29 Body mass index [BMI] 29.0-29 .9, adult<b r/> GORDON PATHAK 05/17 [place] [facility] EXERCISE CLASS 23161-5.63 [id number] 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
CRISTAL LAZCANO M 05/21 [facility] [place] LD GROUP BEHAVE COUNS 2-10 71085-7.63 [id number] Diagnos is: ICD-10- CM E66.09 Other obesity due to excess calorie s
EVAN KRAMER P [place] [facility] PT EDUCATION NOC GROUP 14882-0.63 [id number] Diagnos is: ICD-10- CM Z71.3 Dietary peer counselor ing and surveil nancy<b r/> RAKESH GRACIA LIE CHENTE 05/28 [facility] [place] GROUP BEHAVE COUNS 2-10 25563-6.63 [id number].[id number] Diagnos is: ICD-10- CM E66.09 Other obesity due to excess calorie s
EVAN KRAMER CHABOBBY P 05/30 [facility] LD GROUP BEHAVE COUNS 2-10 23173-7.63 1BY.[id number] Diagnos is: ICD-10- CM E66.09 Other obesity due to excess calorie s
EVAN KRAMER CHABOBBY P 06/06 [facility] PT EDUCATION NOC GROUP 18503-6.63 [id number] Diagnos is: ICD-10- CM Z71.3 Dietary peer counselor ing and surveil nancy<b r/> RAKESH GRACIA LIE CHENTE 06/11 [facility] [place] LD WEIGHT MGMT CLASS 29944-1.63 [id number] Diagnos is: ICD-10- CM E66.3 Overwei ght<br/ > GORDON PATHAK 06/13 [facility] LD WEIGHT MGMT CLASS 12977-3.63 [id number] Diagnos is: ICD-10- CM Z68.29 Body mass index [BMI] 29.0-29 .9, adult<b r/> GORDON PATHAK 06/20 [facility] [place] [facility] PT EDUCATION NOC GROUP 00446-9.63 [id number] Diagnos is: ICD-10- CM Z71.3 Dietary peer counselor ing and surveil nancy<b r/> RAKESH GRACIA 06/25 [facility] [place] [place] LD WEIGHT MGMT CLASS 33183-1.63 [id number] Diagnos is: ICD-10- CM Z68.29 Body mass index [BMI] 29.0-29 .9, adult<b r/> GORDON PATHAK A 06/27 [facility] LD GROUP BEHAVE COUNS 2-10 07999-8.63 [id number].[id number] Diagnos is: ICD-10- CM E66.3 Overwei ght<br/ > EVAN KRAMER P 07/04 [facility] WEIGHT MGMT CLASS 61291-9.63 [id number].[id number] Diagnos is: ICD-10- CM Z68.29 Body mass index [BMI] 29.0-29 .9, adult<b r/> GORDON PATHAK 07/18 [place] [facility] [place] OFFICE O/P EST MOD 30 MIN 81317-7.63 [id number] Diagnos is: ICD-10- CM K21.9 Gastro- esophag eal reflux disease without esophag itis
Guzman MENDOZA 07/22 [facility] [place] Outpatient Encounter [id number] [id number] 07/23 [facility] [place] [facility] GROUP BEHAVE COUNS 2-10 13355-2.63 [id number].[id number] Diagnos is: ICD-10- CM E66.3 Overwei ght<br/ > EVAN KRAMER P 07/25 [place] [facility] PT EDUCATION NOC GROUP 82697-7.63 [id number] Diagnos is: ICD-10- CM Z71.3 Dietary peer counselor ing and surveil nancy<b r/> RAKESH GRACIA 07/30 [facility] [place] [place] LD GROUP BEHAVE COUNS 2-10 25862-5.63 1BY.[id number] Diagnos is: ICD-10- CM E66.3 Overwei ght<br/ > EVAN KRAMER P 08/01 [facility] BEHAVE COUNS 2-10 01521-5.63 [id number].[id number] Diagnos is: ICD-10- CM E66.3 Overwei ght<br/ > EVAN KRAMER JOSH P 08/08 [facility] [place] [facility] EXERCISE CLASS 36003-9.63 [id number] 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
Cecily ONEILL 08/21 [facility] [place] [place] WEIGHT MGMT CLASS 58148-8.63 [id number].[id number] Diagnos is: ICD-10- CM Z68.29 Body mass index [BMI] 29.0-29 .9, adult<b r/> GORDON PATHAK 08/22 [facility] EXERCISE CLASS 39096-3.63 [id number] 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
LARISA COATES 08/23 [facility] [place] [place] EXERCISE CLASS 36700-9.63 [id number] 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
Cecily ONEILL 08/26 [facility] [place] LD WEIGHT MGMT CLASS 48500-5.63 [id number].[id number] Diagnos is: ICD-10- CM Z68.29 Body mass index [BMI] 29.0-29 .9, adult<b r/> GORDON PATHAK 08/29 [facility] [place] [facility] [place] [facility] EXERCISE CLASS 21512-8.63 [id number] 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
NENOCRISTAL M 08/30 [facility] [place] EXERCISE CLASS 59546-1.63 [id number] 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
Cecily ONEILL 09/04 [facility] [place] [place] [facility] [place] WEIGHT MGMT CLASS 15437-4.63 [id number].[id number] Diagnos is: ICD-10- CM E66.09 Other obesity due to excess calorie s
GORDON PATHAK 09/05 [facility] [place] [facility] [place] EXERCISE CLASS 63910-7.63 [id number] 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
CRISTAL LAZCANO M 09/06 [facility] [place] [place] [place] [facility] LD GROUP BEHAVE COUNS 2-10 17895-1.63 [id number].[id number] Diagnos is: ICD-10- CM E66.09 Other obesity due to excess calorie s
EVAN KRAMER 09/12 [facility] [place] [facility] [place] [facility] EXERCISE CLASS 59374-3.63 [id number] 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
LARISA COATES 09/13 [facility] [place] [place] [place] WEIGHT MGMT CLASS 57704-9.63 [id number].[id number] Diagnos is: ICD-10- CM Z68.30 Body mass index [BMI] 30.0-30 .9, adult<b r/> GORDON PATHAK 09/19 [place] [facility] EXERCISE CLASS 47332-8.63 [id number] 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
LARISA COATES 09/20 [facility] EXERCISE CLASS 81294-7.63 [id number] 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
CRISTAL LAZCANO M 09/23 [facility] [place] [address]-3.63 [id number] Diagnos is: ICD-10- CM L71.8 Other rosacea
EVAN GEE OSMAN 09/24 [facility] FIT SPECTACLES MONOFOCAL 83447-7.63 [id number] Diagnos is: ICD-10- CM Z46.0 Encount er for fit/adj st of spectac les and contact lenses< br/> EVAN GEE OSMAN 09/24 [facility] EXERCISE CLASS 01344-2.63 [id number] 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
Cecily ONEILL 09/25 [facility] EXERCISE CLASS 59542-2.63 [id number] 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
CRISTAL LAZCANO M 09/30 [facility] [place] [facility] [place] LD GROUP BEHAVE COUNS 2-10 57001-3.63 1BY.[id number] Diagnos is: ICD-10- CM E66.09 Other obesity due to excess calorie s
EVAN KRAMER P 10/03 [facility] WEIGHT MGMT CLASS 34326-8.63 [id number].[id number] Diagnos is: ICD-10- CM Z68.29 Body mass index [BMI] 29.0-29 .9, adult<b r/> GORDON PATHAK A 10/10 [facility] [place]CS EXERCISE CLASS 15499-7.63 [id number] 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
CRISTAL LACZANO LLY M 10/14 [facility] [place] EXERCISE CLASS 76288-0.63 1. 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
Cecily ONEILL 10/16 [facility] [place] [facility] GROUP BEHAVE COUNS 2-10 11290-4.63 [id number].[id number] Diagnos is: ICD-10- CM E66.09 Other obesity due to excess calorie s
EVAN KRAMER P 10/17 [facility] EXERCISE CLASS 65069-3.63 [id number] 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
CRISTAL LAZCANO LLY M 10/18 [facility] EXERCISE CLASS 77792-8.63 1. 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
NENOKE LLY M 10/21 [facility] [place] [place] Outpatient Encounter [id number] [id number] Guzman MENDOZA 10/22 [facility] POS AIRWAY PRESSURE FILTER 92601-5.63 1. Diagnos is: ICD-10- CM G47.30 Sleep apnea, unspeci fied
ST KATHARINA ARVIZU E P 10/22 [facility] EXERCISE CLASS 80527-7.63 1. 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
Cecily ONEILL 10/23 [facility] [place] [facility] BHV IVNTJ GRP EA ADDL 65945-0.63 [id number].[id number] Diagnos is: ICD-10- CM Z68.30 Body mass index [BMI] 30.0-30 .9, adult<b r/> GORDON PATHAK 10/24 [place] [facility] UNLISTED PHYSCL MED/[place] PX [address]93-2.63 [id number] 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
LARISA COATES 10/25 [facility] EXERCISE CLASS 23563-9.63 1. 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
CRISTAL LAZCANO 10/25 [facility] Outpatient Encounter [id number] [id number] 10/25 [facility] Outpatient Encounter [id number] [id number] 10/25 [facility] EXERCISE CLASS 68835-5.63 [id number] 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
CRISTAL LAZCANO M 10/28 [facility] [place] COLLJ & INTERPJ DATA EA 30 D 93681-4.63 [id number] Diagnos is: ICD-10- CM G47.30 Sleep apnea, unspeci fied
ST AMANT,KATHARINA E P 10/29 [facility] [place] EXERCISE CLASS 15124-8.63 [id number] 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
Cecily ONEILL 10/30 [facility] [place] [facility] [place] [facility] BHV IVNTJ GRP EA ADDL 87826-5.63 [id number] Diagnos is: ICD-10- CM Z68.30 Body mass index [BMI] 30.0-30 .9, adult<b r/> GORDON PATHAK A 10/31 [place] [facility] [place] [facility] EXERCISE CLASS 64257-6.63 [id number] 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
CRISTAL LAZCANO M 11/01 [facility] [place] EXERCISE CLASS 03018-7.63 [id number] 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
CRISTAL LAZCANO M 11/04 [facility] [place] EXERCISE CLASS [id number] [id number] 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
Cecily ONEILL SHANICE 11/06 [facility] [place] LD GROUP BEHAVE COUNS 2-10 17253-8.63 [id number] Diagnos is: ICD-10- CM E66.09 Other obesity due to excess calorie s
EVAN KRAMER P 11/07 [facility] [facility] EXERCISE CLASS 82458-5.63 1. 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
Cecily ONEILL SHANICE 11/13 [facility] [place] LD HLTH BHV IVNTJ GRP EA ADDL 83803-5.63 [id number] Diagnos is: ICD-10- CM Z68.30 Body mass index [BMI] 30.0-30 .9, adult<b r/> GORDON PATHAK 11/14 [facility] EXERCISE CLASS 88693-9.63 1. 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
Cecily ONEILL SHANICE 11/15 [facility] [place] EXERCISE CLASS [id number] [id number] 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
CRISTAL LAZCANO 11/18 [facility] [place] [place] EXERCISE CLASS 69637-8.63 1. 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
Cecily ONEILL SHANICE 11/20 [facility] [place] LD GROUP BEHAVE COUNS 2-10 06594-4.63 [id number] Diagnos is: ICD-10- CM E66.09 Other obesity due to excess calorie s
EVAN KRAMER P 11/21 [facility] [place] [facility] EXERCISE CLASS 70779-6.63 1. 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
MAICecily SHANICE 11/27 [facility] [place] HLTH BHV IVNTJ GRP EA ADDL 62702-1.63 [id number] Diagnos is: ICD-10- CM Z68.30 Body mass index [BMI] 30.0-30 .9, adult<b r/> GORDON PATHAK A 11/28 [facility] [place] [facility] EXERCISE CLASS 57704-2.63 1. 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
LARISA COATES 11/29 [facility] [place] [place] EXERCISE CLASS 18677-9.63 1. 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
CRISTAL LAZCANO M 12/02 [facility] [place] [facility] COLLJ & INTERPJ DATA EA 30 D 55075-5.63 [id number] Diagnos is: ICD-10- CM G47.30 Sleep apnea, unspeci fied
ST AMANT,KATHARINA E P 12/02 [facility] EXERCISE CLASS 68945-7.63 1. 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
CRISTAL LAZCANO M 12/04 [facility] [place] [facility] GROUP BEHAVE COUNS 2-10 82009-7.63 [id number].[id number] Diagnos is: ICD-10- CM E66.09 Other obesity due to excess calorie s
NIA,NY CHAEL P 12/05 [place] [facility] PT EDUCATION NOC GROUP 56765-1.63 [id number] Diagnos is: ICD-10- CM Z71.3 Dietary peer counselor ing and surveil nancy<b r/> RAKESH GRACIA LIE CHENTE 12/10 [facility] [place] IV[facility] EA ADDL [id number] [id number] Diagnos is: ICD-10- CM Z73.3 Stress, not elsewhe re classif ied<br/ > CHALOJOSE ALBERTO CORCORAN RA 12/10 [facility] [place] [facility] [place] [facility] [id number] [id number].[id number] Diagnos is: ICD-10- CM Z68.30 Body mass index [BMI] 30.0-30 .9, adult<b r/> GORDON PATHAK 12/12 [place] [facility] [place] [facility] EXERCISE CLASS 28533-4.63 [id number] Diagnos is: ICD-10- CM Z72.3 Lack of physica l exercis e
CRISTAL LAZCANO M 12/16 [facility] [place] [facility] [place] [facility] IVNTJ GRP EA ADDL [id number] [id number].[id number] Diagnos is: ICD-10- CM Z68.30 Body mass index [BMI] 30.0-30 .9, adult<b r/> GORDON PATHAK 12/19 [place] [facility] [place] [facility] PT EDUCATION NOC GROUP 82983-5.63 [id number] Diagnos is: ICD-10- CM Z71.3 Dietary peer counselor ing and surveil nancy<b r/> RAKESH GRACIA CHENTE 12/24 [facility] [place] [facility] [place] GROUP BEHAVE COUNS 2-10 68513-3.63 [id number] Diagnos is: ICD-10- CM E66.09 Other obesity due to excess calorie s
EVAN KRAMER CHAEL P 12/[address] [place] [facility] IV[facility]P EA ADDL 30598-2.63 [id number] Diagnos is: ICD-10- CM Z68.30 Body mass index [BMI] 30.0-30 .9, adult<b r/> GORDON PATHAK A 01/02 [place] [facility] [place] [facility] PT EDUCATION NOC GROUP 54691-3.63 1. Diagnos is: ICD-10- CM Z71.3 Dietary peer counselor ing and surveil nancy<b r/> RAKESH GRACIA 01/07 [place] [facility] [place] [facility] GROUP BEHAVE COUNS 2-10 44177-1.63 1BY. 38 Diagnos is: ICD-10- CM E66.09 Other obesity due to excess calorie s
EVAN KRAMER CHAEL P 01/09 [facility] IVNTJ GRP EA ADDL [id number] [id number].[id number] Diagnos is: ICD-10- CM Z68.30 Body mass index [BMI] 30.0-30 .9, adult<b r/> GORDON PATHAK A 01/16 [facility] [place] [facility] [place] [facility] OFFICE O/P EST MOD 30 MIN 18099-4.63 1. Diagnos is: ICD-10- CM G47.30 Sleep apnea, unspeci fied
Guzman MENDOZA 01/20 [facility] [place] OFFICE O/P EST MOD 30 MIN 88143-0.68 [id number] Diagnos is: ICD-10- CM G47.33 Obstruc tive sleep apnea (adult) (pediat amparo)
ARELIS NUNO 01/21 [facility] Outpatient Encounter [id number] [id number] Diagnos is: ICD-10- CM G47.33 Obstruc tive sleep apnea (adult) (pediat amparo)
NUNO,ARELIS 01/21 [facility] [place] [facility] [facility] [place] GROUP BEHAVE COUNS 2-10 87783-0.63 [id number].[id number] Diagnos is: ICD-10- CM E66.811 Obesity , class 1
NIA,MI CHAEL P 01/23 [place] [facility] LD GROUP BEHAVE COUNS 2-10 81795-3.63 [id number] Diagnos is: ICD-10- CM E66.811 Obesity , class 1
NIA,MI CHAEL P 01/30 [place] [facility] BHV IVNTJ GRP EA ADDL 82598-6.63 [id number] Diagnos is: ICD-10- CM Z68.30 Body mass index [BMI] 30.0-30 .9, adult<b r/> GORDON PATHAK A 02/06 [place] [facility] LD HLTH BHV IVNTJ GRP EA ADDL [id number] [id number] Diagnos is: ICD-10- CM Z68.30 Body mass index [BMI] 30.0-30 .9, adult<b r/> GORDON PATHAK A 02/13 [place] [facility] OFFICE O/P EST MOD 30 MIN 03821-3.68 [id number] Diagnos is: ICD-10- CM G47.33 Obstruc tive sleep apnea (adult) (pediat amparo)
NUNO,ARELIS 02/25 [facility] Outpatient Encounter [id number] Diagnos is: ICD-10- CM G47.33 Obstruc tive sleep apnea (adult) (pediat amparo)
NUNO,ARELIS 02/25 [facility] IVNTJ GRP EA ADDL [id number] Diagnos is: ICD-10- CM Z68.30 Body mass index [BMI] 30.0-30 .9, adult<b r/> GORDON PATHAK A 02/27 [facility] S[facility] LD GROUP BEHAVE COUNS 2-10 [id number] Diagnos is: ICD-10- CM E66.811 Obesity , class 1
EVAN KRAMER P 03/06 [facility] SANGErin LD GROUP BEHAVE COUNS 2-10 [id number] Diagnos is: ICD-10- CM E66.811 Obesity , class 1
EVAN KRAMER P 03/13 [facility] Social History Combined list of available smoking, tobacco, and other social history from [facility] Defense and [facility] facilities. Social History Type Response Date Comment Sourc e Tobacco smoking status RIIS VA-[facility]BACCO FORMER USER 01/21/2024 [facility] [place] [facility] History of tobacco use AL-TOBACCO QUIT 15 YRS OR MORE 01/21/2024 [facility] History of tobacco use VA-TOBACCO FORMER USER 01/26/2023 [facility] History of tobacco use VA-TOBACCO FORMER USER 01/27/2022 [facility] History of tobacco use VA-TOBACCO FORMER USER 09/17/2020 [facility] History of tobacco use VA-TOBACCO NEVER USED 06/04/2019 [facility] History of tobacco use VA-TOBACCO FORMER USER 03/14/2018 [facility] History of tobacco use QUIT TOBACCO USE > 7 YEARS AGO 04/04/2017 [facility] History of tobacco use QUIT TOBACCO USE > 7 YEARS AGO 04/05/2016 quit in 1984 [facility] [place] [facility] Plan of Care List of future care activities from Department of Veterans Affairs facilities. Additional future care activities may be listed in the Assessment and Plan section. Date/Time Care Activity Care Activity Detail Facili ty 07/21/2024 AMBULATORY - MEDICINE AM[facility]ULATORY - [facility]
--- OUTSIDE RECORDS SUMMARY | 2024-03-21 08:04 | XMS_ITS | Encounter Summary ---
Author Name [facility] [place] Organization [facility] [place] Address [address] [place] [address] Care Team Providers Care Cascara Bark Cutter Name Role Phone LEN MENDOZA Primary [...] PART B Sep 23, 2014 PART B [id number] [phone] HARMONY MCCALL JR PATIENT MEDICARE (WNR) MEDICARE (M) PART A July 25, 2007 PART A [id number] [phone] HARMONY MCCALL JR PATIENT MEDICARE (WNR) MEDICARE (M) PART B July 25, 2007 PART B [id number] HARMONY MCCALL JR PATIENT MEDICARE (WNR) MEDICARE (M) PART A July 25, 2007 PART A [id number] HARMONY MCCALL JR PATIENT [facility] MEDICAL EXPENSE (OPT/PROF ) [facility] * Jan 24, 2015 [id number] [phone] CAROLE MCCALL SPOUSE Selected Encounter This section includes the information on record at [place] for the Encounter. Date/Time Encounter Type Encounter Description Reason Provider Source Mar 29, 2023 11:00 AM GROUP BEHAVE COUNS 2-10 WEIGHT MGMT & MOVE! PROG - GRP ICD-10-CM E66.3 Overweight NIAMIGUEL Jarvis IHErin Encounter Template Text not used by [place] [...] AMBULATORY - NONE [facility] [place] [facility] Apr 12, 2023 11:00 AM AMBULATORY - NONE [place] Apr 19, 2023 11:00 AM AMBULATORY - NONE [place] Apr 26, 2023 11:00 AM AMBULATORY - NONE [place] May 03, 2023 11:00 AM AMBULATORY - NONE [place] May 10, 2023 11:00 AM AMBULATORY - NONE [place] May 15, 2023 10:00 AM AMBULATORY - NONE [facility] [place] [facility] May 17, 2023 11:00 AM AMBULATORY - NONE [place] May 24, 2023 11:00 AM AMBULATORY - NONE [place] May 29, 2023 10:00 AM AMBULATORY - NONE [facility] [place] [facility] May 31, 2023 11:00 AM AMBULATORY - NONE [place] Jun 07, 2023 11:00 AM AMBULATORY - NONE [place] Jun 12, 2023 10:00 AM AMBULATORY - NONE [facility] [place] [facility] Jun 14, 2023 11:00 AM AMBULATORY - NONE [place] Jun 21, 2023 11:00 AM AMBULATORY - NONE [place] Jun 26, 2023 10:00 AM AMBULATORY - NONE [facility] [place] [facility] Jun 28, 2023 11:00 AM AMBULATORY - [...] AUTHOR: SANTIAGO KRAMER COSIGNER: URGENCY: STATUS: COMPLETED [place] participated in MOVE! Group Counseling via [facility] on March 29, 2023. The [place] was provided with information on [facility] and has given verbal consent to use group VV services for their healthcare. The copy of the Group Telehealth Agreement has been mailed to the [place]. The Veterans location/emergency contact number were confirmed. The Emergency Call Relay Center (E911) was available. The visit was locked for security and privacy. identified with 2 identifiers: [ ] Full Name [ ] Address Veterans attended the [facility] MOVE! group session on this [...] members shared their upcoming goals. The next [facility] MOVE! group meeting will be held on March @ 11:00am. Wt: 207.2 lbs Dx: e66.3, z68.29 /johanny/ SANTIAGO KRAMER STAFF DIETITIAN Signed: 03/30/2023 11:11 Receipt Acknowledged By: 04/10/2023 15:12 /johanny/ GORDON PATHAK, Ph.D. CLINICAL PSYCHOLOGIST SANTIAGO KRAMERFIELD
--- OUTSIDE RECORDS SUMMARY | 2024-03-21 08:04 | XMS_ITS | Encounter Summary ---
Author Name [place] Address [address] [place] [address] Care Team Providers Care Product Development Specialist Name Role Phone LEN MENDOZA Primary [...] PART B Sep 23, 2014 PART B [id number] HARMONY MCCALL JR PATIENT MEDICARE (WNR) MEDICARE (M) PART A July 25, 2007 PART A [id number] [id number] [phone] HARMONY MCCALL JR PATIENT MEDICARE (WNR) MEDICARE (M) PART B July 25, 2007 PART B [id number] [phone] HARMONY MCCALL JR PATIENT MEDICARE (WNR) MEDICARE (M) PART A July 25, 2007 PART A [id number] [id number] [phone] HARMONY MCCALL JR PATIENT [facility] MEDICAL EXPENSE (OPT/PROF ) [facility] IN[facility] * Jan 24, 2015 [id number] CAROLE MCCALL SPOUSE Selected Encounter This section includes the information on record at [place] for the Encounter. Date/Time Encounter Type Encounter Description Reason Provider Source Apr 12, 2023 11:00 AM WEIGHT MGMT CLASS WEIGHT MGMT & MOVE! PROG - GRP ICD-10-CM Z68.29 Body mass index [BMI] 29.0-29.9, adult GORDON PATHAK [facility] Encounter Template Text not used by [place] [...] AMBULATORY - NONE [facility] [place] [facility] May 17, 2023 11:00 AM AMBULATORY - NONE [place] May 24, 2023 11:00 AM AMBULATORY - NONE [place] May 29, 2023 10:00 AM AMBULATORY - NONE [facility] [place] [facility] May 31, 2023 11:00 AM AMBULATORY - NONE [place] Jun 07, 2023 11:00 AM AMBULATORY - NONE [place] Jun 12, 2023 10:00 AM AMBULATORY - NONE [facility] [place] [facility] Jun 14, 2023 11:00 AM AMBULATORY - NONE [place] Jun 21, 2023 11:00 AM AMBULATORY - NONE [place] Jun 26, 2023 10:00 AM AMBULATORY - NONE [facility] [place] [facility] Jun 28, 2023 11:00 AM AMBULATORY - NONE [place] Jul 05, 2023 11:00 AM AMBULATORY - NONE [place] Jul 19, 2023 11:00 AM AMBULATORY - NONE [place] Jul 23, 2023 02:30 PM AMBULATORY - MEDICINE [facility] [place] [facility] July 26, 2023 11:00 AM AMBULATORY - NONE [place] July 31, 2023 10:00 AM AMBULATORY - NONE [facility] [place] [facility] Vital Signs: All taken on [...] 2023. The was provided with information on [facility] and has given verbal consent to use group VVC services for their healthcare. The copy of the Group Telehealth Agreement has been mailed to the [place]. The Veterans location/emergency contact number were confirmed. The Emergency Call Relay Center (E911) was available. The visit was locked for security and privacy. [place] identified with 2 identifiers: [ ] Full Name [ ] Address Veterans attended the [facility] MOVE! group session on this date. MOVE! is a program designed to provide education about weight management skills to overweight and obese Veterans. Group members combined to gain 5.1 pounds since their last attended group. Group members began today's session asking about the health of one of the group members who was recently hospitalized due to heart problems. The [place] later joined the group to tell them [...] goals for the next week. The next [facility] MOVE! group meeting will be held on March @ 11:00am. [place]'s reported weight was 207.0 lbs. and lost 0.9 pounds since last group attended. Dx: Overweight Obesity E66.3 BMI 29.0-29.9 The session lasted for 1 hour in duration. /johanny/ GORDON PATHAK, Ph.D. CLINICAL PSYCHOLOGIST Signed: 04/14/2023 14:07 Receipt Acknowledged By: 04/17/2023 10:47 /johanny/ SANTIAGO KRAMER STAFF DIETITIAN GORDON PATHAK
--- OUTSIDE RECORDS SUMMARY | 2024-03-21 08:04 | XMS_ITS | Encounter Summary ---
Author Name [facility] [place] Organization [place] Address [address] [place] [address] Care Team Providers Care Automobile Engine Assembler Name Role Phone LEN MENDOZA Primary Care [...] PART B Sep 23, 2014 PART B [id number] [id number] HARMONY MCCALL JR PATIENT MEDICARE (WNR) MEDICARE (M) PART A July 25, 2007 PART A [id number] [id number] HARMONY MCCALL JR PATIENT MEDICARE (WNR) MEDICARE (M) PART B July 25, 2007 PART B [id number] [id number] HARMONY MCCALL JR PATIENT MEDICARE (WNR) MEDICARE (M) PART A July 25, 2007 PART A [id number] [id number] HARMONY MCCALL JR PATIENT [facility] MEDICAL EXPENSE (OPT/PROF ) [facility] IN[facility] * Jan 24, 2015 [id number] CAROLE MCCALL SPOUSE Selected Encounter This [...] PRIMARY Dietary counseling and surveillance CURTIS GRACIA [facility] Plan of Treatment: Future Appointments (+ 6 [...] 10, 2023 10:00 AM AMBULATORY - NONE [facility] [place] [facility] Apr 12, 2023 11:00 AM AMBULATORY - NONE [place] Apr 19, 2023 11:00 AM AMBULATORY - NONE [place] Apr 26, 2023 11:00 AM AMBULATORY - NONE [place] May 03, 2023 11:00 AM AMBULATORY - NONE [place] May 10, 2023 11:00 AM AMBULATORY - NONE [place] May 15, 2023 10:00 AM AMBULATORY - NONE [place] [facility] [place] [facility] May 17, 2023 11:00 AM AMBULATORY - NONE [place] May 24, 2023 11:00 AM AMBULATORY - NONE [place] May 29, 2023 10:00 AM AMBULATORY - NONE [place] [facility] [facility] May 31, 2023 [...] TOBACCO USE > 7 YEARS AGO [facility] Apr 05, 2016 01:02 PM QUIT TOBACCO USE > 7 YEARS AGO quit in 1984 [facility] Encounter Notes: All associated encounter notes This section contains the clinical notes associated to the Encounter. Date/Time Encounter Note(s) Provider Source Mar 27, 2023 10:00 AM NUTRITION GROUP COUNSELING NOTE: LOCAL TITLE: NUTRITION GROUP NOTE STANDARD TITLE: NUTRITION GROUP COUNSELING NOTE DATE OF NOTE: MAR 27, 2023@10:00 ENTRY DATE: MAR 27, 2023@12:17:35 AUTHOR: CURTIS GRACIA EXP COSIGNER: URGENCY: STATUS: COMPLETED Veterans participated in HTK via [facility] on: 03/27/23. The was provided with information on [facility] and has given verbal consent to use group [facility] services for their healthcare. The copy of the Group Telehealth Agreement has been mailed to the . The [place]'s location/emergency contact number were confirmed. The Emergency Call Relay Center (E911) was available. The visit was locked for security and privacy. [place] identified with 2 identifiers: [x] Full Name [x] Address This class was taught by one Registered Dietitian with one co-host dietitian Dx: Z71.3 Time Spent: 60 minutes Participants: 6 Veterans Nutrition Education Topics: Intro to [facility] HTK, Nutrient content of recipe ingredients Cooking demonstration: Cabbage Soup, Baked Chicken Veterans attended the 64th class of the [facility] Healthy Teaching Kitchen. Today we went over the Group Telehealth Agreement, how HTK via [facility] works, food safety, knife safety, [...] Dietitian Signed: 03/27/2023 12:22 CURTIS GRACIA [facility]
--- OUTSIDE RECORDS SUMMARY | 2024-03-21 08:04 | XMS_ITS | Encounter Summary ---
Author Name [facility] [place] [place] [facility] [place] Organization [facility] [place] Address [address] [place] [address] Care Team Providers Care Meter Mechanic Name Role Phone LEN MENDOZA [...] PART B Sep 23, 2014 PART B [id number] HARMONY MCCALL JR PATIENT MEDICARE (WNR) MEDICARE (M) PART A July 25, 2007 PART A [id number] [phone] HARMONY MCCALL JR PATIENT MEDICARE (WNR) MEDICARE (M) PART B July 25, 2007 PART B [id number] HARMONY MCCALL JR PATIENT MEDICARE (WNR) MEDICARE (M) PART A July 25, 2007 PART A [id number] [id number] HARMONY MCCALL JR PATIENT [facility] MEDICAL EXPENSE (OPT/PROF ) [facility] INDEM * Jan 24, 2015 [id number] [phone] CAROLE MCCALL SPOUSE Selected Encounter This section includes the information on record at [place] for the Encounter. Date/Time Encounter Type Encounter Description Reason Provider Source Apr 05, 2023 11:00 AM GROUP BEHAVE COUNS 2-10 WEIGHT MGMT & MOVE! PROG - GRP ICD-10-CM E66.09 Other obesity due to excess calories MIGUEL KRAMER Erin Encounter Template Text not used by [place] [...] AMBULATORY - NONE [facility] [place] [facility] Apr 12, 2023 11:00 AM AMBULATORY - NONE [place] Apr 19, 2023 11:00 AM AMBULATORY - NONE [place] Apr 26, 2023 11:00 AM AMBULATORY - NONE [place] May 03, 2023 11:00 AM AMBULATORY - NONE [place] May 10, 2023 11:00 AM AMBULATORY - NONE [place] May 15, 2023 10:00 AM AMBULATORY - NONE [facility] [place] [facility] May 17, 2023 11:00 AM AMBULATORY - NONE [place] May 24, 2023 11:00 AM AMBULATORY - NONE [place] May 29, 2023 10:00 AM AMBULATORY - NONE [facility] [place] [facility] May 31, 2023 11:00 AM AMBULATORY - NONE [place] Jun 07, 2023 11:00 AM AMBULATORY - NONE [place] Jun 12, 2023 10:00 AM AMBULATORY - NONE [facility] [place] [facility] Jun 14, 2023 11:00 AM AMBULATORY - NONE [place] Jun 21, 2023 11:00 AM AMBULATORY - NONE [place] Jun 26, 2023 10:00 AM AMBULATORY - NONE [place] [facility] Jun 28, 2023 11:00 AM AMBULATORY - NONE [place] Jul 05, 2023 11:00 AM AMBULATORY - NONE [place] Jul 19, 2023 11:00 AM AMBULATORY - NONE [place] Jul 23, 2023 02:30 PM AMBULATORY - MEDICINE [facility]
--- OUTSIDE RECORDS SUMMARY | 2024-03-21 08:04 | XMS_ITS | Encounter Summary ---
Author Name [facility] [place] Organization [place] Address [address] [place] [id number] Care Team Providers Care Inspector Optical Instrument Name Role Phone LEN MENDOZA Primary Care [...] PART B Sep 23, 2014 PART B [id number] HARMONY MCCALL JR PATIENT MEDICARE (WNR) MEDICARE (M) PART A July 25, 2007 PART A [id number] [phone] HARMONY MCCALL JR PATIENT MEDICARE (WNR) MEDICARE (M) PART B July 25, 2007 PART B [id number] [id number] HARMONY MCCALL JR PATIENT MEDICARE (WNR) MEDICARE (M) PART A July 25, 2007 PART A [id number] [id number] HARMONY MCCALL JR PATIENT [facility] MEDICAL EXPENSE (OPT/PROF ) [facility] IN[facility] * Jan 24, 2015 [id number] CAROLE MCCALL SPOUSE Selected Encounter This section includes the information on record at [place] for the Encounter. Date/Time Encounter Type Encounter Description Reason Provider Source Mar 28, 2023 08:00 AM EXERCISE CLASS HEALTH/WELLBEING SRVS ICD-10-CM Z72.3 Lack of physical exercise DAMON ONEILL IHE Encounter Template Text not used by [place] Assessments - Encounter Diagnoses This section includes the primary and secondary diagnoses documented for the Encounter. Date/Time Primary/Secondary Diagnosis Diagnosis Name Provider Source Mar 28, 2023 12:41 PM PRIMARY Lack of physical exercise DAMON ONEILL [place] [facility] [place] [facility] Plan of Treatment: Future Appointments (+ 6 months) and Future Tests (+/- 45 days) The Plan of Treatment section includes future care activities for the patient from all [place] treatmentfacilities. This section includes future appointments and future orders which are active, pending or scheduled. Future Appointments This section includes appointments that were scheduled to occur 6 months from the date of the Encounter, up to a maximum of 20 appointments. The data comes from all [place] treatment facilities. Appointment Date/Time Appointment Type Appointme nt Facility Name Mar 29, 2023 11:00 AM AMBULATORY - NONE [place] Apr 05, 2023 11:00 AM AMBULATORY - NONE [place] Apr 10, 2023 10:00 AM AMBULATORY - NONE [facility] [place] [facility] Apr 12, 2023 11:00 AM AMBULATORY - NONE [place] Apr 19, 2023 11:00 AM AMBULATORY - NONE [place] Apr 26, 2023 11:00 AM AMBULATORY - NONE [place] May 03, 2023 11:00 AM AMBULATORY - NONE [place] May 10, 2023 11:00 AM AMBULATORY - NONE [place] May 15, 2023 10:00 AM AMBULATORY - NONE [facility] [place] [facility] May 17, 2023 11:00 AM AMBULATORY - NONE [place] May 24, 2023 11:00 AM AMBULATORY - NONE [place] May 29, 2023 10:00 AM AMBULATORY - NONE [facility] [place] [facility] May 31, 2023 11:00 AM AMBULATORY - NONE [place] Jun 07, 2023 11:00 AM AMBULATORY - NONE [place] Jun 12, 2023 10:00 AM AMBULATORY - NONE [facility] [place] [facility] Jun 14, 2023 11:00 AM AMBULATORY - NONE [place] Jun 21, 2023 11:00 AM AMBULATORY - NONE [place] Jun 26, 2023 10:00 AM AMBULATORY - NONE [facility] [place] [facility] Jun 28, 2023 11:00 AM AMBULATORY - NONE [place] Jul 05, 2023 11:00 AM AMBULATORY - NONE [place] Social History: Smoking Status (Most current) and Tobacco Use (All prior to encounter date) This section includes the most current, and the historical, smoking and tobacco- related health factors from the [place] facility where the Encounter took place. Current Smoking Status This section includes the most current smoking, or tobacco-related health factor, from the [place] facility where the Encounter took place. Date/Time Current Smoking Status Comment Facil ity Jan 26, 2023 01:30 PM VA-TOBACCO FORMER USER [facility] [place] [facility] Tobacco Use History This section includes a history of the smoking, or tobacco-related health factors, that were collected on or before the date of the Encounter. The data comes from the [place] facility where the Encounter took place. Date/Time Smoking Status/Tobacco Use Comment F acility Jan 26, 2023 01:30 PM VA-TOBACCO QUIT 15 YRS OR MORE [facility] [place] [facility] Jan 27, 2022 11:00 AM VA-TOBACCO FORMER USER [facility] [place] [facility] Jan 27, 2022 11:00 AM VA-TOBACCO QUIT 15 YRS OR MORE [facility] [place] [facility] Sep 17, 2020 09:00 AM VA-TOBACCO FORMER USER [facility] [place] [facility] Sep 17, 2020 09:00 AM VA-TOBACCO QUIT 15 YRS OR MORE [facility] [place] [facility] Jun 04, 2019 02:57 PM VA-TOBACCO NEVER USED [facility] [place] [facility] Mar 14, 2018 11:23 AM VA-TOBACCO FORMER USER [facility] [place] [facility] Mar 14, 2018 11:23 AM VA-TOBACCO QUIT 15 YRS OR MORE [facility] [place] [facility] Apr 04, 2017 12:30 PM QUIT TOBACCO USE > 7 YEARS AGO [facility] Apr 05, 2016 01:02 PM QUIT TOBACCO USE > 7 YEARS AGO quit in 1984 [facility] Encounter Notes: All associated encounter notes This [...] informed consent to receive treatment via Telehealth., [place] mailed and has been made verbally aware of Telehealth Group [place] practices. 's Location: address on record unless specified below. Emergency Contact: on record unless specified below. participated remotely in the Gerofit exercise program today through [place] Virtual Material Assembler. Activities were focused on progression of their individual exercise prescription (cardiorespiratory fitness training, strength training, etc.) and group-based exercise sessions to include, but not limited to: flexibility training, balance training & functional circuit training. Exercise participation was supervised remotely by [facility] staff and any questions/concerns were addressed with the patient. Modifications were made to programming as appropriate to suit Veterans individual needs, preferences, and whole health concerns. /johanny/ VIOLETTA FINK LICENSE DATA COMMUNICATIONS TECHNICIAN Signed: 03/28/2023 12:47 DOUG ONEILL [facility]
--- OUTSIDE RECORDS SUMMARY | 2024-03-21 08:04 | XMS_ITS | Encounter Summary ---
Author Name [place] Organization [place] Address [address] [place] [address] Care Team Providers Care Sewing Line Baler Name Role Phone LEN MENDOZA Primary Care [...] PART B Sep 23, 2014 PART B [id number] [id number] HARMONY MCCALL JR PATIENT MEDICARE (WNR) MEDICARE (M) PART A July 25, 2007 PART A [id number] [id number] HARMONY MCCALL JR PATIENT MEDICARE (WNR) MEDICARE (M) PART B July 25, 2007 PART B [id number] [phone] HARMONY MCCALL JR PATIENT MEDICARE (WNR) MEDICARE (M) PART A July 25, 2007 PART A [id number] [id number] HARMONY MCCALL JR PATIENT [facility] MEDICAL EXPENSE (OPT/PROF ) [facility] IN[facility] * Jan 24, 2015 [id number] CAROLE MCCALL SPOUSE Selected Encounter This section includes the information on record at [place] for the Encounter. Date/Time Encounter Type Encounter Description Reason Provider Source Mar 23, 2023 08:00 AM EXERCISE CLASS HEALTH/WELLBEING SRVS ICD-10-CM Z72.3 Lack of physical exercise TERRY COATES IHErin Encounter Template Text not used by [place] Assessments - Encounter Diagnoses This section includes the primary and secondary diagnoses documented for the Encounter. Date/Time Primary/Secondary Diagnosis Diagnosis Name Provider Source Mar 23, 2023 10:27 AM PRIMARY Lack of physical exercise DAMON ONEILL [place] [facility] [place] [facility] [place] [facility] Mar 29, 2023 11:00 AM AMBULATORY - NONE [place] Apr 05, 2023 11:00 AM AMBULATORY - NONE [place] Apr 10, 2023 10:00 AM AMBULATORY - NONE [place] [facility] [place] [facility] Apr 12, 2023 11:00 AM [...] [place] [facility] May 17, 2023 11:00 AM AMBULATORY - NONE [place] May 24, 2023 11:00 AM AMBULATORY - NONE [place] May 29, 2023 10:00 AM AMBULATORY - NONE [place] [facility] [place] [facility] May 31, 2023 11:00 AM AMBULATORY - NONE [place] Jun 07, 2023 11:00 AM AMBULATORY - NONE [place] Jun 12, 2023 10:00 AM AMBULATORY - NONE [facility] [place] [facility] Jun 14, 2023 11:00 AM AMBULATORY - NONE [place] Jun 21, 2023 11:00 AM AMBULATORY - NONE [place] Jun 26, 2023 10:00 AM AMBULATORY - NONE [facility] [place] [facility] Jun 28, 2023 11:00 AM AMBULATORY [...] 15 YRS OR MORE [facility] Apr 04, 2017 12:30 PM QUIT TOBACCO USE > 7 YEARS AGO [facility] Apr 05, 2016 01:02 PM QUIT TOBACCO USE > 7 YEARS AGO quit in 1984 [facility] Encounter Notes: All associated encounter notes This [...] COMPLETED GEROFIT VVC/VCM/VOD Telehealth Supervised Exercise NOTE [place] Provided informed consent to receive treatment via Telehealth., mailed and has been made verbally aware of Telehealth Group [place] practices. [place]'s Location: address on record unless specified below. Emergency Contact: on record unless specified below. participated remotely in the Gerofit exercise program today through [place] Virtual Seamer Elastic Band. Activities were focused on progression of their [...] whole health concerns. /johanny/ VIOLETTA FINK LICENSE KAIAKO KOHANGA REO Signed: 03/23/2023 10:32 DOUG ONEILL [facility]
--- OUTSIDE RECORDS SUMMARY | 2024-03-21 08:04 | XMS_ITS | Encounter Summary ---
Author Name [place] Address [address] [place] [address] Care Team Providers Care Floral Designer Name Role Phone LEN MENDOZA Primary [...] PART B Sep 23, 2014 PART B [id number] HARMONY MCCALL JR PATIENT MEDICARE (WNR) MEDICARE (M) PART A July 25, 2007 PART A [id number] [phone] HARMONY MCCALL JR PATIENT MEDICARE (WNR) MEDICARE (M) PART B July 25, 2007 PART B [id number] HARMONY MCCALL JR PATIENT MEDICARE (WNR) MEDICARE (M) PART A July 25, 2007 PART A [id number] HARMONY MCCALL JR PATIENT [facility] MEDICAL EXPENSE (OPT/PROF ) [facility] * Jan 24, 2015 [id number] [id number] 18 CAROLE MCCALL SPOUSE Selected Encounter This section includes the information on record at [place] for the Encounter. Date/Time Encounter Type Encounter Description Reason Provider Source Apr 10, 2023 10:00 AM PT EDUCATION NOC GROUP NUTRITION/DIETETI CS-GROUP ICD-10-CM Z71.3 Dietary counseling and surveillance CURTIS GRACIA Erin Encounter Template Text not used by [place] Assessments - Encounter Diagnoses This section includes the primary and secondary diagnoses documented for the Encounter. Date/Time Primary/Secondary Diagnosis Diagnosis Name Provider Source Apr 11, 2023 03:18 PM PRIMARY Dietary counseling and surveillance [facility] Plan of Treatment: Future Appointments [...] AMBULATORY - NONE [facility] [place] [facility] May 17, 2023 11:00 AM AMBULATORY - NONE [place] May 24, 2023 11:00 AM AMBULATORY - NONE [place] May 29, 2023 10:00 AM AMBULATORY - NONE [facility] [place] [facility] May 31, 2023 11:00 AM AMBULATORY - NONE [place] Jun 07, 2023 11:00 AM AMBULATORY - NONE [place] Jun 12, 2023 10:00 AM AMBULATORY - NONE [facility] [place] [facility] Jun 14, 2023 11:00 AM AMBULATORY - NONE [place] Jun 21, 2023 11:00 AM AMBULATORY - NONE [place] Jun 26, 2023 10:00 AM AMBULATORY - NONE [facility] [place] [facility] Jun 28, 2023 11:00 AM AMBULATORY - NONE [place] Jul 05, 2023 11:00 AM AMBULATORY - NONE [place] Jul 19, 2023 11:00 AM AMBULATORY - NONE [place] Jul 23, 2023 02:30 PM AMBULATORY - MEDICINE [facility] [place] [facility] July 26, 2023 11:00 AM AMBULATORY [...] VA-TOBACCO FORMER USER [facility] [place] [facility] Tobacco Use History This section includes a history of the smoking, or tobacco-related health factors, that were collected on or before the date of the Encounter. The data comes from the [place] facility where the Encounter took place. Date/Time Smoking Status/Tobacco Use Comment F acility Jan 26, 2023 01:30 PM VA-TOBACCO QUIT 15 YRS OR MORE [facility] [place] [facility] Jan 27, 2022 11:00 AM VA-TOBACCO FORMER USER [facility] [place] [facility] Jan 27, 2022 11:00 AM VA-TOBACCO QUIT 15 YRS OR MORE [facility] [place] [facility] Sep 17, 2020 09:00 AM VA-TOBACCO FORMER USER [facility] [place] [facility] Sep 17, 2020 09:00 AM VA-TOBACCO QUIT 15 YRS OR MORE [facility] [place] [facility] Jun 04, 2019 02:57 PM VA-TOBACCO NEVER USED [facility] [place] [facility] Mar 14, 2018 11:23 AM VA-TOBACCO FORMER USER [facility] [place] [facility] Mar 14, 2018 11:23 AM VA-TOBACCO QUIT 15 YRS OR MORE [facility] [place] [facility] Apr 04, 2017 12:30 PM QUIT TOBACCO USE > 7 YEARS AGO [facility] Apr 05, 2016 01:02 PM QUIT TOBACCO USE > 7 YEARS AGO quit in 1984 [facility] Encounter Notes: All associated encounter notes This [...] STATUS: COMPLETED Veterans participated in HTK via [facility] on: 04/10/23. The was provided with information on [facility] and has given verbal consent to use group [facility] services for their healthcare. The copy of the Group Telehealth Agreement has been mailed to the . The [place]'s location/emergency contact number were confirmed. The Emergency Call Relay Center (E911) was available. The visit was locked for security and privacy. identified with 2 identifiers: [x] Full Name [x] Address This class was taught by one Registered Dietitian with one co-host dietitian Dx: Z71.3 Time Spent: 60 minutes Participants: 6 Veterans Nutrition Education Topics: Intro to [facility] HTK, Nutrient content of recipe ingredients Cooking demonstration: Vegan Cashew Queso, Guacamole, Baked Black Frausto Tacos Veterans attended the 64th class of the [facility] Healthy Teaching Kitchen. Today we went over the Group Telehealth Agreement, how HTK via [facility] works, food safety, knife safety, and [...] Staff Dietitian Signed: 04/11/2023 15:20 [facility]
--- OUTSIDE RECORDS SUMMARY | 2024-03-21 08:04 | XMS_ITS | Encounter Summary ---
Author Name Department [place] Address [address] [place] [address] Care Team Providers Care Die Sinker Name Role Phone LEN MENDOZA Primary Care [...] PART B Sep 23, 2014 PART B [id number] HARMONY MCCALL JR PATIENT MEDICARE (WNR) MEDICARE (M) PART A July 25, 2007 PART A [id number] [id number] HARMONY MCCALL JR PATIENT MEDICARE (WNR) MEDICARE (M) PART B July 25, 2007 PART B [id number] [phone] HARMONY MCCALL JR PATIENT MEDICARE (WNR) MEDICARE (M) PART A July 25, 2007 PART A [id number] HARMONY MCCALL JR PATIENT [facility] MEDICAL EXPENSE (OPT/PROF ) [facility] * Jan 24, 2015 [id number] 18 CAROLE MCCALL SPOUSE Selected Encounter This [...] Lack of physical exercise DAMON ONEILL [place] [facility] [place] [facility] Plan of Treatment: Future Appointments (+ [...] NONE [facility] [place] [facility] Apr 12, 2023 11:00 AM AMBULATORY [...] NONE [facility] [place] [facility] May 17, 2023 11:00 AM AMBULATORY - NONE [place] May 24, 2023 11:00 AM AMBULATORY - NONE [place] May 29, 2023 10:00 AM AMBULATORY - NONE [facility] [place] [facility] May 31, 2023 11:00 AM AMBULATORY - NONE [place] Jun 07, 2023 11:00 AM AMBULATORY - NONE [place] Jun 12, 2023 10:00 AM AMBULATORY - NONE [facility] [place] [facility] Jun 14, 2023 11:00 AM AMBULATORY - NONE [place] Jun 21, 2023 11:00 AM AMBULATORY - NONE [place] Jun 26, 2023 10:00 AM AMBULATORY - NONE [facility] [place] [facility] Jun 28, 2023 11:00 AM AMBULATORY [...] QUIT TOBACCO USE > 7 YEARS AGO [facility] Apr 05, 2016 01:02 PM QUIT TOBACCO USE > 7 YEARS AGO quit in 1985 [facility] Encounter Notes: All associated encounter notes This [...] informed consent to receive treatment via Telehealth., [place] mailed and has been made verbally aware of [facility]health Group [place] practices. 's Location: address on record unless specified below. Emergency Contact: on record unless specified below. [place] participated remotely in the [facility] exercise program today through [place] [employer]. Activities were focused on progression of their individual exercise prescription (cardiorespiratory fitness training, strength training, etc.) and group-based exercise sessions to include, but not limited to: flexibility training, balance training & functional circuit training. Exercise participation was supervised remotely by [facility] staff and any questions/concerns were addressed with the patient. Modifications were made to programming as appropriate to suit Veterans individual needs, preferences, and whole health concerns. /johanny/ VIOLETTA FINK LICENSE SPECIAL EVENTS ASSISTANT Signed: 04/04/2023 11:08 DOUG ONEILL [facility]
--- OUTSIDE RECORDS SUMMARY | 2024-03-21 08:05 | XMS_ITS | Encounter Summary ---
Author Name Department [place] Organization [place] Address [address] [place] [address] Care Team Providers Care Visual Merchandise Manager Name Role Phone LEN MENDOZA Primary [...] PART B Sep 23, 2014 PART B [id number] [id number] HARMONY MCCALL JR PATIENT MEDICARE (WNR) MEDICARE (M) PART A July 25, 2007 PART A [id number] [id number] HARMONY MCCALL JR PATIENT MEDICARE (WNR) MEDICARE (M) PART B July 25, 2007 PART B [id number] [id number] HARMONY MCCALL JR PATIENT MEDICARE (WNR) MEDICARE (M) PART A July 25, 2007 PART A [id number] [id number] HARMONY MCCALL JR PATIENT [facility] MEDICAL EXPENSE (OPT/PROF ) [facility] * Jan 24, 2015 [id number] 18 CAROLE MCCALL SPOUSE Selected Encounter This section includes the information on record at [place] for the Encounter. Date/Time Encounter Type Encounter Description Reason Provider Source Apr 27, 2023 10:56 AM EXERCISE CLASS HEALTH/WELLBEING SRVS ICD-10-CM Z72.3 Lack of physical exercise JANIE LAZCANO [facility] Encounter Template Text not used by [place] Assessments - Encounter Diagnoses This section includes the primary and secondary diagnoses documented for the Encounter. Date/Time Primary/Secondary Diagnosis Diagnosis Name Provider Source Apr 27, 2023 11:29 AM PRIMARY Lack of physical exercise JANIE LAZCANO [place] [facility] [place] [facility] Plan of Treatment: Future Appointments (+ [...] AMBULATORY - NONE [facility] [place] [facility] May 17, 2023 11:00 AM AMBULATORY - NONE [place] May 24, 2023 11:00 AM AMBULATORY - NONE [place] May 29, 2023 10:00 AM AMBULATORY - NONE [facility] [place] [facility] May 31, 2023 11:00 AM AMBULATORY - NONE [place] Jun 07, 2023 11:00 AM AMBULATORY - NONE [place] Jun 12, 2023 10:00 AM AMBULATORY - NONE [facility] [place] [facility] Jun 14, 2023 11:00 AM AMBULATORY - NONE [place] Jun 21, 2023 11:00 AM AMBULATORY - NONE [place] Jun 26, 2023 10:00 AM AMBULATORY - NONE [facility] [place] [facility] Jun 28, 2023 11:00 AM AMBULATORY - NONE [place] Jul 05, 2023 11:00 AM AMBULATORY - NONE [place] Jul 19, 2023 11:00 AM AMBULATORY - NONE [place] Jul 23, 2023 02:30 PM AMBULATORY - MEDICINE [facility] [place] [facility] July 26, 2023 11:00 AM AMBULATORY - NONE [place] July 31, 2023 10:00 AM AMBULATORY - NONE [facility] [place] [facility] August 02, 2023 11:00 AM AMBULATORY [...] VA-TOBACCO FORMER USER [facility] [place] [facility] Tobacco Use History This section includes a history of the smoking, or tobacco-related health factors, that were collected on or before the date of the Encounter. The data comes from the [place] facility where the Encounter took place. Date/Time Smoking Status/Tobacco Use Comment F acility Jan 26, 2023 01:30 PM VA-TOBACCO QUIT 15 YRS OR MORE [facility] [place] [facility] Jan 27, 2022 11:00 AM VA-TOBACCO FORMER USER [facility] [place] [facility] Jan 27, 2022 11:00 AM VA-TOBACCO QUIT 15 YRS OR MORE [facility] [place] [facility] Sep 17, 2020 09:00 AM VA-TOBACCO FORMER USER [facility] [place] [facility] Sep 17, 2020 09:00 AM VA-TOBACCO QUIT 15 YRS OR MORE [facility] [place] [facility] Jun 04, 2019 02:57 PM VA-TOBACCO NEVER USED [facility] [place] [facility] Mar 14, 2018 11:23 AM VA-TOBACCO FORMER USER [facility] [place] [facility] Mar 14, 2018 11:23 AM VA-TOBACCO QUIT 15 YRS OR MORE [facility] [place] [facility] Apr 04, 2017 12:30 PM QUIT TOBACCO USE > 7 YEARS AGO [facility] Apr 05, 2016 01:02 PM QUIT TOBACCO USE > 7 YEARS AGO quit in 1984 [facility] Encounter Notes: All associated encounter notes This section contains the clinical notes associated to the Encounter. Date/Time Encounter Note(s) Provider Source Apr 27, 2023 11:25 AM GERIATRIC MEDICINE NOTE: LOCAL TITLE: GEROFIT VCM/VVC/VOD TELEHEALTH SUPERVISED EXERCISE STANDARD TITLE: GERIATRIC MEDICINE NOTE DATE OF NOTE: APR 27, 2023@11:25 ENTRY DATE: APR 27, 2023@11:25:30 AUTHOR: JANIE LAZCANO EXP COSIGNER: URGENCY: STATUS: COMPLETED [place] Provided informed consent to receive treatment via Telehealth., mailed and has been made verbally aware of Telehealth Group [place] practices. 's Location: address on record unless specified below. Emergency Contact: on record unless specified below. [place] participated remotely in the [facility] exercise program today through [place] Virtual Dry Heat Room Attendant. Activities were focused on progression of their individual exercise prescription (cardiorespiratory fitness training, strength training, etc.) and group-based exercise sessions to include, but not limited to: flexibility training, balance training & functional circuit training. Exercise participation was supervised remotely by [facility] staff and any questions/concerns were addressed with the patient. Modifications were made to programming as appropriate to suit Veterans individual needs, preferences, and whole health concerns. /es/ Janie Lazcano PT,DPT PHYSICAL THERAPIST Signed: 04/27/2023 11:38 JANIE LAZCANO [facility]
--- OUTSIDE RECORDS SUMMARY | 2024-03-21 08:05 | XMS_ITS | Encounter Summary ---
Author Name Department [place] Address [address] [place] [address] Care Team Providers Care Industry Operations Investigator Name Role Phone LEN MENDOZA Primary Care [...] PART B Sep 23, 2014 PART B [id number] [id number] HARMONY MCCALL JR PATIENT MEDICARE (WNR) MEDICARE (M) PART A July 25, 2007 PART A [id number] [id number] [phone] HARMONY MCCALL JR PATIENT MEDICARE (WNR) MEDICARE (M) PART B July 25, 2007 PART B [id number] [id number] HARMONY MCCALL JR PATIENT MEDICARE (WNR) MEDICARE (M) PART A July 25, 2007 PART A [id number] [id number] HARMONY MCCALL JR PATIENT [facility] MEDICAL EXPENSE (OPT/PROF ) [facility] * Jan 24, 2015 [id number] [phone] CAROLE MCCALL SPOUSE Selected Encounter This section includes the information on record at [place] for the Encounter. Date/Time Encounter Type Encounter Description Reason Provider Source Apr 05, 2023 11:00 AM GROUP BEHAVE COUNS 2-10 WEIGHT MGMT & MOVE! PROG - GRP ICD-10-CM E66.3 Overweight NIAMIGUEL Jarvis IHErin Encounter Template Text not used by [place] [...] - NONE [facility] [place] [facility] Apr 12, 2023 11:00 AM AMBULATORY - NONE [place] Apr 19, 2023 11:00 AM AMBULATORY - NONE [place] Apr 26, 2023 11:00 AM AMBULATORY - NONE [place] May 03, 2023 11:00 AM AMBULATORY - NONE [place] May 10, 2023 11:00 AM AMBULATORY - NONE [place] May 15, 2023 10:00 AM AMBULATORY - NONE [facility] [place] [facility] May 17, 2023 11:00 AM AMBULATORY - NONE [place] May 24, 2023 11:00 AM AMBULATORY - NONE [place] May 29, 2023 10:00 AM AMBULATORY - NONE [facility] [place] [facility] May 31, 2023 11:00 AM AMBULATORY - NONE [place] Jun 07, 2023 11:00 AM AMBULATORY - NONE [place] Jun 12, 2023 10:00 AM AMBULATORY - NONE [facility] [place] [facility] Jun 14, 2023 11:00 AM AMBULATORY - NONE [place] Jun 21, 2023 11:00 AM AMBULATORY - NONE [place] Jun 26, 2023 10:00 AM [facility] [place] [facility] Jun 28, 2023 11:00 AM AMBULATORY - NONE [place] Jul 05, 2023 11:00 AM AMBULATORY - NONE [place] Jul 19, 2023 11:00 AM AMBULATORY - NONE [place] Jul 23, 2023 02:30 PM [facility] [place] [facility] Encounter Notes: All associated encounter notes This section contains the clinical notes associated to the Encounter. Date/Time Encounter Note(s) Provider Source Apr 05, 2023 11:00 AM MOVE NOTE: LOCAL TITLE: WEIGHT MANAGEMENT/MOVE! OUTPATIENT GROUP NOTE STANDARD TITLE: MOVE NOTE DATE OF NOTE: APR 05, 2023@11:00 ENTRY DATE: APR 06, 2023@09:30:51 AUTHOR: SANTIAGO KRAMER COSIGNER: URGENCY: STATUS: COMPLETED [place] participated in MOVE! Group Counseling via [facility] on April 05, 2023. The was provided with information on [facility] and has given verbal consent to use group VVC services for their healthcare. The copy of the Group Telehealth Agreement has been mailed to the [place]. The Veterans location/emergency contact number were confirmed. [...] a food and beverage log. The next [facility] MOVE! group meeting will be held on March @ 11:00am. Wt: 207.9 lbs lost 0.7 lbs. since last session. Dx: e66.3, z68.29 /es/ SANTIAGO KRAMER STAFF DIETITIAN Signed: 04/06/2023 09:59 SANTIAGO KRAMER [place]
--- OUTSIDE RECORDS SUMMARY | 2024-03-21 08:05 | XMS_ITS | Encounter Summary ---
Author Name [place] Address [address] [place] [address] Care Team Providers Care Road Oiler Name Role Phone LEN MENDOZA Primary Care [...] PART B Sep 23, 2014 PART B [id number] [id number] HARMONY MCCALL JR PATIENT MEDICARE (WNR) MEDICARE (M) PART A July 25, 2007 PART A [id number] [id number] HARMONY MCCALL JR PATIENT MEDICARE (WNR) MEDICARE (M) PART B July 25, 2007 PART B [id number] [id number] [phone] [id number] HARMONY MCCALL JR PATIENT MEDICARE (WNR) MEDICARE (M) PART A July 25, 2007 PART A [id number] [id number] [phone] [id number] HARMONY MCCALL JR PATIENT [facility] MEDICAL EXPENSE (OPT/PROF ) [facility] * Jan 24, 2015 [id number] 18 CAROLE MCCALL SPOUSE Selected Encounter This section includes the information on record at [place] for the Encounter. Date/Time Encounter Type Encounter Description Reason Provider Source Apr 19, 2023 11:00 AM WEIGHT MGMT CLASS WEIGHT MGMT & MOVE! PROG - GRP ICD-10-CM Z68.29 Body mass index [BMI] 29.0-29.9, adult GORDON PATHAK [facility] Encounter Template Text not used by [...] AMBULATORY - NONE [facility] [place] [facility] May 17, 2023 11:00 AM AMBULATORY - NONE [place] May 24, 2023 11:00 AM AMBULATORY - NONE [place] May 29, 2023 10:00 AM AMBULATORY - NONE [facility] [place] [facility] May 31, 2023 11:00 AM AMBULATORY - NONE [place] Jun 07, 2023 11:00 AM AMBULATORY - NONE [place] Jun 12, 2023 10:00 AM AMBULATORY - NONE [facility] [place] [facility] Jun 14, 2023 11:00 AM AMBULATORY - NONE [place] Jun 21, 2023 11:00 AM AMBULATORY - NONE [place] Jun 26, 2023 10:00 AM AMBULATORY - NONE [facility] [facility] Jun 28, 2023 11:00 AM AMBULATORY - NONE [place] Jul 05, 2023 11:00 AM AMBULATORY - NONE [place] Jul 19, 2023 11:00 AM AMBULATORY - NONE [place] Jul 23, 2023 02:30 PM AMBULATORY - MEDICINE [facility] [place] [facility] July 26, 2023 11:00 AM AMBULATORY - NONE [place] July 31, 2023 10:00 AM AMBULATORY - NONE [facility] [place] [facility] August 02, 2023 11:00 AM [...] AUTHOR: GORDON PATHAK COSIGNER: URGENCY: STATUS: COMPLETED [place] participated in MOVE! Group Counseling via [facility] on April 19, 2023. The [place] was provided with information on [facility] and has given verbal consent to use group VVC services for their healthcare. The copy of the Group Telehealth Agreement has been mailed to the . The Veterans location/emergency contact number were confirmed. The Emergency Call Relay Center (E911) was available. The visit was locked for security and privacy. [place] identified with 2 identifiers: [ ] Full Name [ ] Address Veterans attended the [facility] MOVE! group session on this date. [...] goals for the next week. The next [facility] MOVE! group meeting will be held [...]
--- OUTSIDE RECORDS SUMMARY | 2024-03-21 08:05 | XMS_ITS | Encounter Summary ---
Author Name [place] Address [address] [place] [id number] Care Team Providers Care Manager Budget Name Role Phone LEN MENDOZA Primary Care [...] PART B Sep 23, 2014 PART B [id number] [phone] [id number] HARMONY MCCLAL JR PATIENT MEDICARE (WNR) MEDICARE (M) PART A July 25, 2007 PART A [id number] HARMONY MCCALL JR PATIENT MEDICARE (WNR) MEDICARE (M) PART B July 25, 2007 PART B [id number] [id number] HARMONY MCCALL JR PATIENT MEDICARE (WNR) MEDICARE (M) PART A July 25, 2007 PART A [id number] HARMONY MCCALL JR PATIENT [facility]LY [facility] MEDICAL EXPENSE (OPT/PROF ) [facility] [place] * Jan 24, 2015 [id number] 18 CAROLE MCCALL SPOUSE Selected Encounter This [...] exercise DAMON ONEILL [place] [facility] [place] [facility] Plan of Treatment: Future Appointments [...] - NONE [facility] [place] [facility] May 17, 2023 11:00 AM AMBULATORY - NONE [place] May 24, 2023 11:00 AM AMBULATORY - NONE [place] May 29, 2023 10:00 AM AMBULATORY - NONE [facility] [place] [facility] May 31, 2023 11:00 AM AMBULATORY - NONE [place] Jun 07, 2023 11:00 AM AMBULATORY - NONE [place] Jun 12, 2023 10:00 AM AMBULATORY - NONE [facility] [place] [facility] Jun 14, 2023 11:00 AM AMBULATORY - NONE [place] Jun 21, 2023 11:00 AM AMBULATORY - NONE [place] Jun 26, 2023 10:00 AM AMBULATORY - NONE [facility] [place] [facility] Jun 28, 2023 11:00 AM AMBULATORY - NONE [place] Jul 05, 2023 11:00 AM AMBULATORY - NONE [place] Jul 19, 2023 11:00 AM AMBULATORY - NONE [place] Jul 23, 2023 02:30 PM AMBULATORY - MEDICINE [facility] [place] [facility] July 26, 2023 11:00 AM AMBULATORY - NONE [place] July 31, 2023 10:00 AM AMBULATORY - NONE [facility] [place] [facility] Social History: Smoking Status (Most [...] FORMER USER [facility] [place] [facility] Tobacco Use History This section includes a history of the smoking, or tobacco-related health factors, that were collected on or before the date of the Encounter. The data comes from the [place] facility where the Encounter took place. Date/Time Smoking Status/Tobacco Use Comment F acility Jan 26, 2023 01:30 PM VA-TOBACCO QUIT 15 YRS OR MORE [facility] [place] [facility] Jan 27, 2022 11:00 AM VA-TOBACCO FORMER USER [facility] [place] [facility] Jan 27, 2022 11:00 AM VA-TOBACCO QUIT 15 YRS OR MORE [facility] [place] [facility] Sep 17, 2020 09:00 AM VA-TOBACCO FORMER USER [facility] [place] [facility] Sep 17, 2020 09:00 AM VA-TOBACCO QUIT 15 YRS OR MORE [facility] [place] [facility] Jun 04, 2019 02:57 PM VA-TOBACCO NEVER USED [facility] [place] [facility] Mar 14, 2018 11:23 AM VA-TOBACCO FORMER USER [facility] [place] [facility] Mar 14, 2018 11:23 AM VA-TOBACCO QUIT 15 YRS OR MORE [facility] Apr 04, 2017 12:30 PM QUIT TOBACCO USE > 7 YEARS AGO [facility] Apr 05, 2016 01:02 PM QUIT TOBACCO USE > 7 YEARS AGO quit in 1984 [facility] Encounter Notes: All associated encounter notes This [...] COMPLETED GEROFIT VVC/VCM/VOD Telehealth Supervised Exercise NOTE Odanah Provided informed consent to receive treatment via Telehealth., Odanah mailed and has been made verbally aware of [facility] [place] practices. Odanah's Location: address on record unless specified below. Emergency Contact: on record unless specified below. Odanah participated remotely in the Gerofit exercise program today through [place] Virtual Enforcement Officer. Activities were focused on progression of [...] whole health concerns. /johanny/ VIOLETTA FINK LICENSE FULL TIME BABYSITTER Signed: 04/18/2023 10:55 DOUG ONEILL [facility]
--- OUTSIDE RECORDS SUMMARY | 2024-03-21 08:05 | XMS_ITS | Encounter Summary ---
Author Name [place] Address [address] [place] [address] Care Team Providers Care Learning And Development Consultant Name Role Phone LEN MENDOZA Primary [...] PART B Sep 23, 2014 PART B [id number] HARMONY MCCALL JR PATIENT MEDICARE (WNR) MEDICARE (M) PART A July 25, 2007 PART A [id number] HARMONY MCCALL JR PATIENT MEDICARE (WNR) MEDICARE (M) PART B July 25, 2007 PART B [id number] [phone] [id number] HARMONY MCCALL JR PATIENT MEDICARE (WNR) MEDICARE (M) PART A July 25, 2007 PART A [id number] HARMONY MCCALL JR PATIENT [facility]LY [facility] MEDICAL EXPENSE (OPT/PROF ) [facility] [place] * Jan 24, 2015 [id number] 18 CAROLE MCCALL SPOUSE Selected Encounter This section includes the information on record at [place] for the Encounter. Date/Time Encounter Type Encounter Description Reason Provider Source Apr 26, 2023 11:00 AM WEIGHT MGMT CLASS WEIGHT MGMT & MOVE! PROG - GRP ICD-10-CM Z68.29 Body mass index [BMI] 29.0-29.9, adult GORDON PATHAK [facility] Encounter Template Text not used [...] AMBULATORY - NONE [facility] [place] [facility] May 17, 2023 11:00 AM AMBULATORY - NONE [place] May 24, 2023 11:00 AM AMBULATORY - NONE [place] May 29, 2023 10:00 AM AMBULATORY - NONE [facility] [place] [facility] May 31, 2023 11:00 AM AMBULATORY - NONE [place] Jun 07, 2023 11:00 AM AMBULATORY - NONE [place] Jun 12, 2023 10:00 AM AMBULATORY - NONE [facility] [place] [facility] Jun 14, 2023 11:00 AM AMBULATORY - NONE [place] Jun 21, 2023 11:00 AM AMBULATORY - NONE [place] Jun 26, 2023 10:00 AM AMBULATORY - NONE [facility] [place] [facility] Jun 28, 2023 11:00 AM AMBULATORY - NONE [place] Jul 05, 2023 11:00 AM AMBULATORY - NONE [place] Jul 19, 2023 11:00 AM AMBULATORY - NONE [place] Jul 23, 2023 02:30 PM AMBULATORY - MEDICINE [facility] [place] [facility] July 26, 2023 11:00 AM AMBULATORY - NONE [place] July 31, 2023 10:00 AM AMBULATORY - NONE [place] [facility] [place] [facility] August 02, 2023 11:00 AM [...] AUTHOR: GORDON PATHAK COSIGNER: URGENCY: STATUS: COMPLETED Retsof participated in MOVE! Group Counseling via [facility] on April 26, 2023. The Retsof was provided with information on [facility] and has given verbal consent to use group VV services for their healthcare. The copy of the Group Telehealth Agreement has been mailed to the . The Veterans location/emergency contact number were confirmed. The Emergency Call Relay Center (E911) was available. The visit was locked for security and privacy. Retsof identified with 2 identifiers: [ ] Full Name [ ] Address Veterans attended the [facility] MOVE! group session on this date. [...] the next week. The next [facility] MOVE! group meeting will be held on April @ 11:00am. Retsof's reported weight was 205.0 lbs. and lost [...] SANTIAGO KRAMER EXP COSIGNER: URGENCY: STATUS: COMPLETED Retsof participated in MOVE! Group Counseling via [facility] on April 05, 2023. The was provided with information on [facility] and has given verbal consent to use group VVC services for their healthcare. The copy of the Group Telehealth Agreement has been mailed to the . The Veterans location/emergency contact number were confirmed. The Emergency Call Relay Center (E911) was available. The visit was locked for security and privacy. Retsof identified with 2 identifiers: [ ] Full Name [ ] Address Veterans attended the [facility] MOVE! group session on this date. [...] a food and beverage log. The next [facility] MOVE! group meeting will be held on March @ 11:00am. Wt: 207.9 lbs lost 0.7 lbs. since last session. Dx: e66.3, z68.29 /johanny/ SANTIAGO KRAMER STAFF DIETITIAN Signed: 04/30/2023 07:40 SANTIAGO KRAMER
--- OUTSIDE RECORDS SUMMARY | 2024-03-21 08:05 | XMS_ITS | Encounter Summary ---
Author Name [place] Address [address] [place] [address] Care Team Providers Care Electric Welder Helper Name Role Phone LEN MENDOZA Primary Care [...] PART B Sep 23, 2014 PART B [id number] HARMONY MCCALL JR PATIENT MEDICARE (WNR) MEDICARE (M) PART A July 25, 2007 PART A [id number] [phone] HARMONY MCCALL JR PATIENT MEDICARE (WNR) MEDICARE (M) PART B July 25, 2007 PART B [id number] HARMONY MCCALL JR PATIENT MEDICARE (WNR) MEDICARE (M) PART A July 25, 2007 PART A [id number] [id number] HARMONY MCCALL JR PATIENT [facility]LY [facility] MEDICAL EXPENSE (OPT/PROF ) [facility] * Jan 24, 2015 [id number] 18 CAROLE MCCALL SPOUSE Selected Encounter This [...] PRIMARY Lack of physical exercise AMINATA UNDERWOOD [place] [facility] [facility] Plan [...] AM VA-TOBACCO QUIT 15 YRS OR MORE [facility] Apr 04, 2017 12:30 PM QUIT TOBACCO USE > 7 YEARS AGO [facility] Apr 05, 2016 01:02 PM QUIT [...] COMPLETED GEROFIT VVC/VCM/VOD Telehealth Supervised Exercise NOTE Wendel Provided informed consent to receive treatment via Telehealth., mailed and has been made verbally aware of [facility] [place] practices. 's Location: address on record unless specified below. Emergency Contact: on record unless specified below. Wendel participated remotely in the Gerofit exercise program today through [place] Virtual Probation Worker. Activities were focused on progression of their individual exercise prescription (cardiorespiratory fitness training, strength training, etc.) and group-based exercise sessions to include, but not limited to: flexibility training, balance training & functional circuit training. Exercise participation [facility] supervised [facility] and any questions/concerns were addressed with the patient. Modifications were made to programming as appropriate to suit Veterans individual needs, preferences, and whole health concerns. /johanny/ AMINATA UNDERWOOD PT PHYSICAL THERAPIST Signed: 04/20/2023 11:12 AMINATA UNDERWOOD [facility]
--- OUTSIDE RECORDS SUMMARY | 2024-03-21 08:05 | XMS_ITS | Encounter Summary ---
Author Name Department [place] Organization [place] Address [address] [place] [address] Care Team Providers Care Hemodialysis Technician Name Role Phone LEN MENDOZA Primary [...] PART B Sep 23, 2014 PART B [id number] HARMONY MCCALL JR PATIENT MEDICARE (WNR) MEDICARE (M) PART A July 25, 2007 PART A [id number] [phone] HARMONY MCCALL JR PATIENT MEDICARE (WNR) MEDICARE (M) PART B July 25, 2007 PART B [id number] [id number] HARMONY MCCALL JR PATIENT MEDICARE (WNR) MEDICARE (M) PART A July 25, 2007 PART A [id number] [id number] HARMONY MCCALL JR [facility]IENT [facility] MEDICAL EXP[facility] (OPT/PROF ) [facility] [place] * Jan 24, 2015 [id number] 18 CAROLE MCCALL SPOUSE Selected Encounter This [...] Lack of physical exercise DAMON ONEILL [place] [facility] [place] [facility] Plan of Treatment: Future Appointments (+ [...] AMBULATORY - NONE [facility] [place] [facility] May 17, 2023 11:00 AM AMBULATORY - NONE [place] May 24, 2023 11:00 AM AMBULATORY - NONE [place] May 29, 2023 10:00 AM AMBULATORY - NONE [facility] [facility] May 31, 2023 11:00 AM AMBULATORY - NONE [place] Jun 07, 2023 11:00 AM AMBULATORY - NONE [place] Jun 12, 2023 10:00 AM AMBULATORY - NONE [facility] [facility] Jun 14, 2023 11:00 AM AMBULATORY - NONE [place] Jun 21, 2023 11:00 AM AMBULATORY - NONE [place] Jun 26, 2023 10:00 AM AMBULATORY - NONE [facility] [facility] Jun 28, 2023 11:00 AM AMBULATORY - NONE [place] Jul 05, 2023 11:00 AM AMBULATORY - NONE [place] Jul 19, 2023 11:00 AM AMBULATORY - NONE [place] Jul 23, 2023 02:30 PM AMBULATORY - MEDICINE [facility] [place] [facility] July 26, 2023 11:00 AM AMBULATORY - NONE [place] July 31, 2023 10:00 AM AMBULATORY - NONE [facility] [facility] August 02, 2023 11:00 AM AMBULATORY [...] PM VA-TOBACCO QUIT 15 YRS OR MORE [place] [facility] [place] [facility] Tobacco Use History This section includes a history of the smoking, or tobacco-related health factors, that were collected on or before the date of the Encounter. The data comes from the [place] facility where the Encounter took place. Date/Time Smoking Status/Tobacco Use Comment F acility Jan 26, 2023 01:30 PM VA-TOBACCO QUIT 15 YRS OR MORE [facility] [place] [facility] Jan 27, 2022 11:00 AM VA-TOBACCO FORMER USER [facility] [place] [facility] Jan 27, 2022 11:00 AM VA-TOBACCO QUIT 15 YRS OR MORE [facility] [place] [facility] Sep 17, 2020 09:00 AM VA-TOBACCO FORMER USER [facility] [place] [facility] Sep 17, 2020 09:00 AM VA-TOBACCO QUIT 15 YRS OR MORE [facility] [place] [facility] Jun 04, 2019 02:57 PM VA-TOBACCO NEVER USED [facility] [facility] Mar 14, 2018 11:23 AM VA-TOBACCO FORMER USER [facility] [place] [facility] Mar 14, 2018 11:23 AM VA-TOBACCO QUIT 15 YRS OR MORE [facility] Apr 04, 2017 12:30 PM QUIT TOBACCO USE > 7 YEARS AGO [facility] Apr 05, 2016 01:02 PM QUIT TOBACCO USE > 7 YEARS AGO quit in 1984 [facility] Encounter Notes: All associated encounter notes [...] verbally aware of [facility] [place] practices. [place]'s Location: address on record unless specified below. Emergency Contact: on record unless specified below. participated remotely in the Gerofit exercise program today through [place] Virtual Veterans Services Specialist. Activities were focused on progression of their [...] whole health concerns. /johanny/ VIOLETTA FINK LICENSE CIVIL CAD TECH Signed: 04/25/2023 11:53 DOUG ONEILL [facility]
--- OUTSIDE RECORDS SUMMARY | 2024-03-21 08:06 | XMS_ITS | Encounter Summary ---
Author Name Department [place] Organization [place] Address [address] [place] [address] Care Team Providers Care Primer Inserting Machine Adjuster Name Role Phone LEN MENDOZA Primary [...] PART B Sep 23, 2014 PART B [id number] HARMONY MCCALL JR PATIENT MEDICARE (WNR) MEDICARE (M) PART A July 25, 2007 PART A [id number] HARMONY MCCALL JR PATIENT MEDICARE (WNR) MEDICARE (M) PART B July 25, 2007 PART B [id number] [id number] HARMONY MCCALL JR PATIENT MEDICARE (WNR) MEDICARE (M) PART A July 25, 2007 PART A [id number] HARMONY MCCALL JR PATIENT [facility] MEDICAL EXPENSE (OPT/PROF ) [facility] * Jan 24, 2015 [id number] 18 CAROLE MCCALL SPOUSE Selected Encounter This section includes the information on record at [place] for the Encounter. Date/Time Encounter Type Encounter Description Reason Provider Source Apr 30, 2023 10:18 AM EXERCISE CLASS HEALTH/WELLBEING [facility] ICD-10-CM Z72.3 Lack of physical exercise JANIE LAZCANO [facility] Encounter Template Text not used by [place] Assessments - Encounter Diagnoses This section includes the primary and secondary diagnoses documented for the Encounter. Date/Time Primary/Secondary Diagnosis Diagnosis Name Provider Source Apr 30, 2023 10:35 AM PRIMARY Lack of physical exercise JANIE LAZCANO [place] [facility] [place] [facility] Plan of Treatment: Future Appointments (+ 6 [...] AMBULATORY - NONE [facility] [place] [facility] May 17, 2023 11:00 AM AMBULATORY - NONE [place] May 24, 2023 11:00 AM AMBULATORY - NONE [place] May 29, 2023 10:00 AM AMBULATORY - NONE [facility] [facility] May 31, 2023 11:00 AM AMBULATORY - NONE [place] Jun 07, 2023 11:00 AM AMBULATORY - NONE [place] Jun 12, 2023 10:00 AM AMBULATORY - NONE [facility] [place] [facility] Jun 14, 2023 11:00 AM AMBULATORY - NONE [place] Jun 21, 2023 11:00 AM AMBULATORY - NONE [place] Jun 26, 2023 10:00 AM AMBULATORY - NONE [facility] [place] [facility] Jun 28, 2023 11:00 AM AMBULATORY - NONE [place] Jul 05, 2023 11:00 AM AMBULATORY - NONE [place] Jul 19, 2023 11:00 AM AMBULATORY - NONE [place] Jul 23, 2023 02:30 PM AMBULATORY - MEDICINE [facility] [place] [facility] July 26, 2023 11:00 AM AMBULATORY - NONE [place] July 31, 2023 10:00 AM AMBULATORY - NONE [facility] [place] [facility] August 02, 2023 11:00 AM AMBULATORY - [...] VA-TOBACCO FORMER USER [facility] [place] [facility] Tobacco Use History This section includes a history of the smoking, or tobacco-related health factors, that were collected on or before the date of the Encounter. The data comes from the [place] facility where the Encounter took place. Date/Time Smoking Status/Tobacco Use Comment F acility Jan 26, 2023 01:30 PM VA-TOBACCO QUIT 15 YRS OR MORE [facility] [place] [facility] Jan 27, 2022 11:00 AM VA-TOBACCO FORMER USER [facility] [place] [facility] Jan 27, 2022 11:00 AM VA-TOBACCO QUIT 15 YRS OR MORE [facility] [place] [facility] Sep 17, 2020 09:00 AM VA-TOBACCO FORMER USER [facility] [place] [facility] Sep 17, 2020 09:00 AM VA-TOBACCO QUIT 15 YRS OR MORE [facility] [place] [facility] Jun 04, 2019 02:57 PM VA-TOBACCO NEVER USED [facility] [place] [facility] Mar 14, 2018 11:23 AM VA-TOBACCO FORMER USER [facility] [place] [facility] Mar 14, 2018 11:23 AM VA-TOBACCO QUIT 15 YRS OR MORE [facility] [place] [facility] Apr 04, 2017 12:30 PM QUIT TOBACCO USE > 7 YEARS AGO [facility] Apr 05, 2016 01:02 PM QUIT TOBACCO USE > 7 YEARS AGO quit in 1984 [facility] Encounter Notes: All associated encounter notes This section contains the clinical notes associated to the Encounter. Date/Time Encounter Note(s) Provider Source Apr 30, 2023 10:32 AM GERIATRIC MEDICINE NOTE: LOCAL TITLE: GEROFIT VCM/VVC/VOD TELEHEALTH SUPERVISED EXERCISE STANDARD TITLE: GERIATRIC MEDICINE NOTE DATE OF NOTE: APR 30, 2023@10:32 ENTRY DATE: APR 30, 2023@10:33:44 AUTHOR: JANIE LAZCANO EXP COSIGNER: URGENCY: STATUS: COMPLETED [place] Provided informed consent to receive treatment via Telehealth., mailed and has been made verbally aware of [facility] [place] practices. 's Location: address on record unless specified below. Emergency Contact: on record unless specified below. Vernon participated remotely in the [facility] exercise program today through [place] Virtual Edge Burnisher. Activities were focused on progression of their individual exercise prescription (cardiorespiratory fitness training, strength training, etc.) and group-based exercise sessions to include, but not limited to: flexibility training, balance training & functional circuit training. Exercise participation was supervised [facility] and any questions/concerns were addressed with the patient. Modifications were made to programming as appropriate to suit Veterans individual needs, preferences, and whole health concerns. /es/ Janie Lazcano PT,DPT PHYSICAL THERAPIST Signed: 04/30/2023 10:42 JANIE LAZCANO [facility]
--- OUTSIDE RECORDS SUMMARY | 2024-03-21 08:06 | XMS_ITS | Encounter Summary ---
Author Name [facility] [place] Address [address] [place] [id number] Care Team Providers Care Communications Representative Name Role Phone LEN MENDOZA Primary [...] PART B Sep 23, 2014 PART B [id number] [phone] HARMONY MCCALL JR PATIENT MEDICARE (WNR) MEDICARE (M) PART A July 25, 2007 PART A [id number] [phone] HARMONY MCCALL JR PATIENT MEDICARE (WNR) MEDICARE (M) PART B July 25, 2007 PART B [id number] HARMONY MCCALL JR PATIENT MEDICARE (WNR) MEDICARE (M) PART A July 25, 2007 PART A [id number] HARMONY MCCALL JR PATIENT [facility] MEDICAL EXPENSE (OPT/PROF ) [facility] * Jan 24, 2015 [id number] 18 CAROLE MCCALL SPOUSE Selected Encounter This section includes the information on record at [place] for the Encounter. Date/Time Encounter Type Encounter Description Reason Provider Source May 04, 2023 08:00 AM EXERCISE CLASS HEALTH/WELLBEING SRVS ICD-10-CM Z72.3 Lack of physical exercise TERRY COATES [facility] Encounter Template Text not used by [place] Assessments - Encounter Diagnoses This section includes the primary and secondary diagnoses documented for the Encounter. Date/Time Primary/Secondary Diagnosis Diagnosis Name Provider Source May 04, 2023 10:48 AM PRIMARY Lack of physical exercise TERRY COATES [place] [facility] [place] [facility] Plan of Treatment: Future Appointments (+ 6 months) and Future Tests (+/- 45 days) The Plan of Treatment section includes future care activities for the patient from all [place] treatmentfacilities. This section includes future appointments and future orders which are active, pending or scheduled. Future Appointments This section includes appointments that were scheduled to occur 6 months from the date of the Encounter, up to a maximum of 20 appointments. The data comes from all [place] treatment facilities. Appointment Date/Time Appointment Type Appointme nt Facility Name May 10, 2023 11:00 AM AMBULATORY - NONE [facility] May 15, 2023 10:00 AM AMBULATORY - NONE [facility] [place] [facility] May 17, 2023 11:00 AM AMBULATORY - NONE [place] May 24, 2023 11:00 AM AMBULATORY - NONE [facility] [facility] May 29, 2023 10:00 AM AMBULATORY - NONE [facility] [place] [facility] May 31, 2023 11:00 AM AMBULATORY - NONE [facility] [facility] Jun 07, 2023 11:00 AM AMBULATORY - NONE [facility] [facility] Jun 12, 2023 10:00 AM AMBULATORY - NONE [facility] [place] [facility] Jun 14, 2023 11:00 AM AMBULATORY - NONE [place] Jun 21, 2023 11:00 AM AMBULATORY - NONE [facility] [facility] Jun 26, 2023 10:00 AM AMBULATORY - NONE [facility] [place] [facility] Jun 28, 2023 11:00 AM AMBULATORY - NONE [place] Jul 05, 2023 11:00 AM AMBULATORY - NONE [facility] [facility] Jul 19, 2023 11:00 AM AMBULATORY - NONE [place] Jul 23, 2023 02:30 PM AMBULATORY - MEDICINE [facility] [place] [facility] July 26, 2023 11:00 AM AMBULATORY - NONE [place] July 31, 2023 10:00 AM AMBULATORY - NONE [facility] [place] [facility] August 02, 2023 11:00 AM AMBULATORY - NONE [place] August 09, 2023 11:00 AM AMBULATORY - NONE [facility] [facility] August 23, 2023 11:00 AM AMBULATORY - NONE [facility] [facility] Social History: Smoking Status (Most current) and Tobacco Use (All prior to encounter date) This section includes the most current, and the historical, smoking and tobacco- related health factors from the [place] facility where the Encounter took place. Current Smoking Status This section includes the most current smoking, or tobacco-related health factor, from the [place] facility where the Encounter took place. Date/Time Current Smoking Status Comment Facil ity Jan 26, 2023 01:30 PM VA-TOBACCO QUIT 15 YRS OR MORE [place] [facility] [place] [facility] Tobacco Use History This section includes a history of the smoking, or tobacco-related health factors, that were collected on or before the date of the Encounter. The data comes from the [place] facility where the Encounter took place. Date/Time Smoking Status/Tobacco Use Comment F acility Jan 26, 2023 01:30 PM VA-TOBACCO QUIT 15 YRS OR MORE [facility] [place] [facility] Jan 27, 2022 11:00 AM VA-TOBACCO FORMER USER [facility] [place] [facility] Jan 27, 2022 11:00 AM VA-TOBACCO QUIT 15 YRS OR MORE [facility] [place] [facility] Sep 17, 2020 09:00 AM VA-TOBACCO FORMER USER [facility] [place] [facility] Sep 17, 2020 09:00 AM VA-TOBACCO QUIT 15 YRS OR MORE [facility] [place] [facility] Jun 04, 2019 02:57 PM VA-TOBACCO NEVER USED [facility] [place] [facility] Mar 14, 2018 11:23 AM VA-TOBACCO FORMER USER [facility] [place] [facility] Mar 14, 2018 11:23 AM VA-TOBACCO QUIT 15 YRS OR MORE [facility] [place] [facility] Apr 04, 2017 12:30 PM QUIT TOBACCO USE > 7 YEARS AGO [facility] Apr 05, 2016 01:02 PM QUIT TOBACCO USE > 7 YEARS AGO quit in 1984 [facility] Encounter Notes: [...] been made verbally aware of [facility] [place] practices. [place] Location: address on record unless specified below. Emergency Contact: on record unless specified below. [facility] through [place] Virtual Crotch Piece Baster. Activities were focused on progression of their individual exercise prescription (cardiorespiratory fitness training, strength training, etc.) and group-based exercise sessions to include, but not limited to: flexibility training, balance training & functional circuit training. Exercise participation was supervised remotely by [facility] staff and any questions/concerns were addressed with the patient. Modifications were made to programming as appropriate to suit Veterans individual needs, preferences, and whole health concerns. /johanny/ TERRY COATES, PT, DPT PHYSICAL THERAPIST Signed: 05/04/2023 10:50 TERRY COATES [facility]
--- OUTSIDE RECORDS SUMMARY | 2024-03-21 08:06 | XMS_ITS | Encounter Summary ---
Author Name [facility] [place] [facility] [place] Address [address] [place] [id number] Care Team Providers Care Penal Officer Name Role Phone LEN MENDOZA Primary Care [...] PART B Sep 23, 2014 PART B [id number] HARMONY MCCALL JR PATIENT MEDICARE (WNR) MEDICARE (M) PART A July 25, 2007 PART A [id number] HARMONY MCCALL JR PATIENT MEDICARE (WNR) MEDICARE (M) PART B July 25, 2007 PART B [id number] [id number] HARMONY MCCALL JR PATIENT MEDICARE (WNR) MEDICARE (M) PART A July 25, 2007 PART A [id number] [id number] [phone] HARMONY MCCALL JR PATIENT [facility] MEDICAL EXPENSE (OPT/PROF ) [facility] * Jan 24, 2015 [id number] 18 CAROLE MCCALL SPOUSE Selected Encounter This section includes the information on record at [place] for the Encounter. Date/Time Encounter Type Encounter Description Reason Provider Source May 07, 2023 08:00 AM EXERCISE CLASS HEALTH/WELLBEING SRVS ICD-10-CM Z72.3 Lack of physical exercise JANIE LAZCANO E Encounter Template Text not used by [place] Assessments - Encounter Diagnoses This section includes the primary and secondary diagnoses documented for the Encounter. Date/Time Primary/Secondary Diagnosis Diagnosis Name Provider Source May 07, 2023 10:46 AM PRIMARY Lack of physical exercise DAMON ONEILL [place] [facility] [place] [facility] Plan of Treatment: Future Appointments (+ [...] - NONE [facility] [place] [facility] May 17, 2023 11:00 AM AMBULATORY - NONE [facility] [facility] May 24, 2023 11:00 AM AMBULATORY - NONE [place] May 29, 2023 10:00 AM AMBULATORY - NONE [facility] [place] [facility] May 31, 2023 11:00 AM AMBULATORY - NONE [place] Jun 07, 2023 11:00 AM AMBULATORY - NONE [facility] [facility] Jun 12, 2023 10:00 AM AMBULATORY - NONE [facility] [place] [facility] Jun 14, 2023 11:00 AM AMBULATORY - NONE [facility] Jun 21, 2023 11:00 AM AMBULATORY - NONE [facility] [facility] Jun 26, 2023 10:00 AM AMBULATORY - NONE [facility] [place] [facility] Jun 28, 2023 11:00 AM AMBULATORY - NONE [place] Jul 05, 2023 11:00 AM AMBULATORY - NONE [facility] Jul 19, 2023 11:00 AM AMBULATORY - NONE [place] Jul 23, 2023 02:30 PM AMBULATORY - MEDICINE [facility] [place] [facility] July 26, 2023 11:00 AM AMBULATORY - NONE [place] July 31, 2023 10:00 AM AMBULATORY - NONE [facility] [place] [facility] August 02, 2023 11:00 AM AMBULATORY [...] FORMER USER [facility] [place] [facility] Tobacco Use History This section includes a history of the smoking, or tobacco-related health factors, that were collected on or before the date of the Encounter. The data comes from the [place] facility where the Encounter took place. Date/Time Smoking Status/Tobacco Use Comment F acility Jan 26, 2023 01:30 PM VA-TOBACCO QUIT 15 YRS OR MORE [facility] [place] [facility] Jan 27, 2022 11:00 AM VA-TOBACCO FORMER USER [facility] [place] [facility] Jan 27, 2022 11:00 AM VA-TOBACCO QUIT 15 YRS OR MORE [facility] [place] [facility] Sep 17, 2020 09:00 AM VA-TOBACCO FORMER USER [facility] [place] [facility] Sep 17, 2020 09:00 AM VA-TOBACCO QUIT 15 YRS OR MORE [facility] [place] [facility] Jun 04, 2019 02:57 PM VA-TOBACCO NEVER USED [facility] [place] [facility] Mar 14, 2018 11:23 AM VA-TOBACCO FORMER USER [facility] [place] [facility] Mar 14, 2018 11:23 AM VA-TOBACCO QUIT 15 YRS OR MORE [facility] [place] [facility] Apr 04, 2017 12:30 PM QUIT TOBACCO USE > [address] [facility] Apr 05, 2016 01:02 PM QUIT TOBACCO USE > 7 YEARS AGO quit in 1984 [facility] Encounter Notes: All associated encounter [...] COMPLETED GEROFIT VVC/VCM/VOD Telehealth Supervised Exercise NOTE [place] Provided informed consent to receive treatment via Telehealth., [place] mailed and has been made verbally aware of [facility] [place] practices. [place]'s Location: address on record unless specified below. Emergency Contact: on record unless specified below. participated remotely in the Gerofit exercise program today through [place] Virtual Forest Law And Policy Professor. Activities were focused on progression of their [...] health concerns. /johanny/ VIOLETTA FINK LICENSE CIVIL DESIGN SPECIALIST Signed: 05/07/2023 10:55 DOUG ONEILL [facility]
--- OUTSIDE RECORDS SUMMARY | 2024-03-21 08:06 | XMS_ITS | Encounter Summary ---
Author Name [place] Address [address] [place] [id number] Care Team Providers Care Brick Chimney Supervisor Name Role Phone LEN MENDOZA Primary [...] PART B Sep 23, 2014 PART B [id number] HARMONY MCCALL JR PATIENT MEDICARE (WNR) MEDICARE (M) PART A July 25, 2007 PART A [id number] [id number] HARMONY MCCALL JR PATIENT MEDICARE (WNR) MEDICARE (M) PART B July 25, 2007 PART B [id number] [id number] HARMONY MCCALL JR PATIENT MEDICARE (WNR) MEDICARE (M) PART A July 25, 2007 PART A [id number] [id number] HARMONY MCCALL JR [facility]IENT [facility] (OPT/PROF ) [facility] * Jan 24, 2015 [id number] 18 CAROLE MCCALL SPOUSE Selected Encounter This section includes the information on record at [place] for the Encounter. Date/Time Encounter Type Encounter Description Reason Provider Source May 21, 2023 10:17 AM EXERCISE CLASS HEALTH/WELLBEING SRVS ICD-10-CM Z72.3 Lack of physical exercise JANIE LAZCANO [facility] Encounter Template Text not used by [place] Assessments - Encounter Diagnoses This section includes the primary and secondary diagnoses documented for the Encounter. Date/Time Primary/Secondary Diagnosis Diagnosis Name Provider Source May 21, 2023 10:32 AM PRIMARY Lack of physical exercise JANIE LAZCANO [place] [facility] [place] [facility] Plan of Treatment: Future Appointments (+ 6 [...] AMBULATORY - NONE [facility] [place] [facility] May 31, 2023 11:00 AM AMBULATORY - NONE [facility] [facility] Jun 07, 2023 11:00 AM AMBULATORY - NONE [place] Jun 12, 2023 10:00 AM AMBULATORY - NONE [facility] [place] [facility] Jun 14, 2023 11:00 AM AMBULATORY - NONE [facility] [facility] Jun 21, 2023 11:00 AM AMBULATORY - NONE [facility] [facility] Jun 26, 2023 10:00 AM AMBULATORY - NONE [facility] [place] [facility] Jun 28, 2023 11:00 AM AMBULATORY - NONE [facility] Jul 05, 2023 11:00 AM AMBULATORY - NONE [facility] [facility] Jul 19, 2023 11:00 AM AMBULATORY - NONE [facility] [facility] Jul 23, 2023 02:30 PM AMBULATORY - MEDICINE [facility] [place] [facility] July 26, 2023 11:00 AM AMBULATORY - NONE [facility] July 31, 2023 10:00 AM AMBULATORY - NONE [facility] [place] [facility] August 02, 2023 11:00 AM AMBULATORY - NONE [facility] August 09, 2023 11:00 AM AMBULATORY - NONE [facility] [facility] August 23, 2023 11:00 AM AMBULATORY - NONE [facility] [facility] Aug 30, 2023 11:00 AM AMBULATORY - NONE [facility] [facility] Sep 06, 2023 11:00 AM AMBULATORY - NONE [facility] [facility] Sep 13, 2023 11:00 AM AMBULATORY - NONE [facility] Social History: Smoking Status (Most current) [...] YRS OR MORE [place] [facility] [place] [facility] Tobacco Use History This section includes a history of the smoking, or tobacco-related health factors, that were collected on or before the date of the Encounter. The data comes from the [place] facility where the Encounter took place. Date/Time Smoking Status/Tobacco Use Comment F acility Jan 26, 2023 01:30 PM VA-TOBACCO QUIT 15 YRS OR MORE [facility] [place] [facility] Jan 27, 2022 11:00 AM VA-TOBACCO FORMER USER [facility] [place] [facility] Jan 27, 2022 11:00 AM VA-TOBACCO QUIT 15 YRS OR MORE [facility] [place] [facility] Sep 17, 2020 09:00 AM VA-TOBACCO FORMER USER [facility] [place] [facility] Sep 17, 2020 09:00 AM VA-TOBACCO QUIT 15 YRS OR MORE [facility] [place] [facility] Jun 04, 2019 02:57 PM VA-TOBACCO NEVER USED [facility] [place] [facility] Mar 14, 2018 11:23 AM VA-TOBACCO FORMER USER [facility] [place] [facility] Mar 14, 2018 11:23 AM VA-TOBACCO QUIT 15 YRS OR MORE [facility] [place] [facility] Apr 04, 2017 12:30 PM QUIT TOBACCO USE > 7 YEARS AGO [place] [facility] [place] [facility] Apr 05, 2016 01:02 PM QUIT TOBACCO USE > 7 YEARS AGO [facility] Encounter Notes: All associated encounter notes [...] 05/21/23 GEROFIT VCM/VVC/VOD TELEHEALTH SUPERVISED EXERCISE NOTE: [place] Provided informed consent to receive treatment via Telehealth., [place] mailed and has been made verbally aware of [facility] [place] practices. 's Location: address on record unless specified below. Emergency Contact: on record unless specified below. participated remotely in the Gerofit exercise program today through [place] Virtual Noc Engineer. Activities were focused on progression of [...] PHYSICAL THERAPIST Signed: 05/21/2023 10:36 JANIE LAZCANO [facility] [place] [facility] May 21, 2023 10:29 AM GERIATRIC MEDICINE NOTE: LOCAL TITLE: GEROFIT VCM/VVC/VOD TELEHEALTH SUPERVISED EXERCISE STANDARD TITLE: GERIATRIC MEDICINE NOTE DATE OF NOTE: MAY 21, 2023@10:29 ENTRY DATE: MAY 21, 2023@10:29:42 AUTHOR: JANIE LAZCANO EXP COSIGNER: URGENCY: STATUS: COMPLETED GEROFIT VCM/VVC/VOD TELEHEALTH SUPERVISED EXERCISE NOTE Has ADDENDA [place] Provided informed consent to receive treatment via Telehealth., [place] mailed and has been made verbally aware of [facility] [place] practices. 's Location: address on record unless specified below. Emergency Contact: on record unless specified below. participated remotely in the Gerofit exercise program today through [place] Virtual Noc Engineer. Activities were focused on progression of [...] AWAITING SIGNATURE * TERRY COATES KELLY M [facility]
--- OUTSIDE RECORDS SUMMARY | 2024-03-21 08:06 | XMS_ITS | Encounter Summary ---
Author Name [place] Address [address] [place] [address] Care Team Providers Care Cyberathlete Name Role Phone LEN MENDOZA Primary Care [...] PART B Sep 23, 2014 PART B [id number] HARMONY MCCALL JR PATIENT MEDICARE (WNR) MEDICARE (M) PART A July 25, 2007 PART A [id number] [id number] HARMONY MCCALL JR PATIENT MEDICARE (WNR) MEDICARE (M) PART B July 25, 2007 PART B [id number] [id number] HARMONY MCCALL JR PATIENT MEDICARE (WNR) MEDICARE (M) PART A July 25, 2007 PART A [id number] [id number] HARMONY MCCALL JR PATIENT [facility] MEDICAL EXPENSE (OPT/PROF ) [facility] * Jan 24, 2015 [id number] 18 CAROLE MCCALL SPOUSE Selected Encounter This [...] PRIMARY Dietary counseling and surveillance CURTIS GRACIA [place] [facility] [place] [facility] Plan of Treatment: Future [...] 29, 2023 10:00 AM AMBULATORY - NONE [place] [facility] [place] [facility] May 31, 2023 11:00 AM AMBULATORY - NONE [place] Jun 07, 2023 11:00 AM AMBULATORY - NONE [place] Jun 12, 2023 10:00 AM AMBULATORY - NONE [facility] [place] [facility] Jun 14, 2023 11:00 AM AMBULATORY - NONE [place] Jun 21, 2023 11:00 AM AMBULATORY - NONE [place] Jun 26, 2023 10:00 AM AMBULATORY - NONE [facility] [place] [facility] Jun 28, 2023 11:00 AM AMBULATORY - NONE [place] Jul 05, 2023 11:00 AM AMBULATORY - NONE [place] Jul 19, 2023 11:00 AM AMBULATORY - NONE [place] Jul 23, 2023 02:30 PM AMBULATORY - MEDICINE [facility] [place] [facility] July 26, 2023 11:00 AM AMBULATORY - NONE [place] July 31, 2023 10:00 AM AMBULATORY - NONE [facility] [place] [facility] August 02, 2023 11:00 AM [...] YRS OR MORE [place] [facility] [place] [facility] Tobacco Use History This section includes a history of the smoking, or tobacco-related health factors, that were collected on or before the date of the Encounter. The data comes from the [place] facility where the Encounter took place. Date/Time Smoking Status/Tobacco Use Comment F acility Jan 26, 2023 01:30 PM VA-TOBACCO QUIT 15 YRS OR MORE [facility] [place] [facility] Jan 27, 2022 11:00 AM VA-TOBACCO FORMER USER [facility] [place] [facility] Jan 27, 2022 11:00 AM VA-TOBACCO QUIT 15 YRS OR MORE [facility] [place] [facility] Sep 17, 2020 09:00 AM VA-TOBACCO FORMER USER [facility] [place] [facility] Sep 17, 2020 09:00 AM VA-TOBACCO QUIT 15 YRS OR MORE [facility] [place] [facility] Jun 04, 2019 02:57 PM VA-TOBACCO NEVER USED [facility] [place] [facility] Mar 14, 2018 11:23 AM VA-TOBACCO FORMER USER [facility] [place] [facility] Mar 14, 2018 11:23 AM VA-TOBACCO QUIT 15 YRS OR MORE [facility] Apr 04, 2017 12:30 PM QUIT TOBACCO USE > 7 YEARS AGO [facility] Apr 05, [...] STATUS: COMPLETED Veterans participated in HTK via [facility] on: 05/15/23. The [place] was provided with information on [facility] and has given verbal consent to use group [facility] services for their healthcare. The copy of the Group Telehealth Agreement has been mailed to the [place]. The 's location/emergency contact number were confirmed. The Emergency Call Relay Center (E911) was available. The visit was locked for security and privacy. [place] identified with 2 identifiers: [x] Full Name [x] Address This class was taught by one Registered Dietitian with one co-host dietitian Dx: Z71.3 Time Spent: 60 minutes Participants: 15 Veterans Nutrition Education Topics: Intro to [facility] HTK, Nutrient content of recipe ingredients Cooking demonstration: Sesame Noodles with Wilted Greens, Roasted [place] Cauliflower Veterans attended the 65th class of the [facility] Healthy Teaching Kitchen. Today we went over the Group Telehealth Agreement, how HTK via [facility] works, food safety, knife safety, [...] LDN Staff Dietitian Signed: 05/15/2023 12:52 [facility]
--- OUTSIDE RECORDS SUMMARY | 2024-03-21 08:06 | XMS_ITS | Encounter Summary ---
Author Name Department of Vetera Affairs ([place]) Organization [place] Address [address] [place] [address] Care Team Providers Care Extractor Tender Raw Stock Name Role Phone LEN MENDOZA Primary Care [...] PART B Sep 23, 2014 PART B [id number] [phone] HARMONY MCCALL JR PATIENT MEDICARE (WNR) MEDICARE (M) PART A July 25, 2007 PART A [id number] HARMONY MCCALL JR PATIENT MEDICARE (WNR) MEDICARE (M) PART B July 25, 2007 PART B [id number] HARMONY MCCALL JR PATIENT MEDICARE (WNR) MEDICARE (M) PART A July 25, 2007 PART A [id number] [id number] HARMONY MCCALL JR PATIENT [facility] MEDICAL EXPENSE (OPT/PROF ) [facility] * Jan 24, 2015 [id number] CAROLE MCCALL SPOUSE Selected Encounter This section includes the information on record at [place] for the Encounter. Date/Time Encounter Type Encounter Description Reason Provider Source May 16, 2023 08:00 AM EXERCISE CLASS HEALTH/WELLBEING SRVS ICD-10-CM Z72.3 Lack of physical exercise DAMON ONEILL IHE Encounter Template Text not used by DC Assessments - Encounter Diagnoses This section includes the primary and secondary diagnoses documented for the Encounter. Date/Time Primary/Secondary Diagnosis Diagnosis Name Provider Source May 16, 2023 10:56 AM PRIMARY Lack of physical exercise DAMON ONEILL [place] [facility] [place] [facility] Plan of Treatment: Future [...] AMBULATORY - NONE [facility] [place] [facility] May 31, 2023 11:00 AM AMBULATORY - NONE [place] Jun 07, 2023 11:00 AM AMBULATORY - NONE [place] Jun 12, 2023 10:00 AM AMBULATORY - NONE [place] [facility] [place] [facility] Jun 14, 2023 11:00 AM AMBULATORY - NONE [place] Jun 21, 2023 11:00 AM AMBULATORY - NONE [place] Jun 26, 2023 10:00 AM AMBULATORY - NONE [place] [facility] [place] [facility] Jun 28, 2023 11:00 AM AMBULATORY - NONE [place] Jul 05, 2023 11:00 AM AMBULATORY - NONE [place] Jul 19, 2023 11:00 AM AMBULATORY - NONE [place] Jul 23, 2023 02:30 PM AMBULATORY - MEDICINE [place] [facility] [place] [facility] July 26, 2023 11:00 AM AMBULATORY - NONE [place] July 31, 2023 10:00 AM AMBULATORY - NONE [place] [facility] [place] [facility] August 02, 2023 11:00 [...] VA-TOBACCO FORMER USER [facility] [place] [facility] Tobacco Use History This section includes a history of the smoking, or tobacco-related health factors, that were collected on or before the date of the Encounter. The data comes from the [place] facility where the Encounter took place. Date/Time Smoking Status/Tobacco Use Comment F acility Jan 26, 2023 01:30 PM VA-TOBACCO QUIT 15 YRS OR MORE [facility] [place] [facility] Jan 27, 2022 11:00 AM VA-TOBACCO FORMER USER [facility] [place] [facility] Jan 27, 2022 11:00 AM VA-TOBACCO QUIT 15 YRS OR MORE [facility] [place] [facility] Sep 17, 2020 09:00 AM VA-TOBACCO FORMER USER [facility] [place] [facility] Sep 17, 2020 09:00 AM VA-TOBACCO QUIT 15 YRS OR MORE [facility] [place] [facility] Jun 04, 2019 02:57 PM VA-TOBACCO NEVER USED [facility] [place] [facility] Mar 14, 2018 11:23 AM VA-TOBACCO FORMER USER [facility] [place] [facility] Mar 14, 2018 11:23 AM VA-TOBACCO QUIT 15 YRS OR MORE [facility] [place] [facility] Apr 04, 2017 12:30 PM QUIT TOBACCO USE > [facility] Apr 05, 2016 01:02 PM QUIT TOBACCO USE > 7 YEARS AGO quit in 1984 [facility] Encounter Notes: [...] informed consent to receive treatment via Telehealth., [place] mailed and has been made verbally aware of [facility] [place] practices. 's Location: address on record unless specified below. Emergency Contact: on record unless specified below. [place] participated remotely in the Gerofit exercise program today through [place] Virtual Pals Specialist. Activities were focused on progression of [...] whole health concerns. /johanny/ VIOLETTA FINK LICENSE REED DIPPER Signed: 05/16/2023 11:02 DOUG ONEILL [facility]
--- OUTSIDE RECORDS SUMMARY | 2024-03-21 08:06 | XMS_ITS | Encounter Summary ---
Author Name Department of [place] ([place] Organization Department [place] Address [address] [place] [address] Care Team Providers Care Veneer Puller Name Role Phone LEN MENDOZA Primary [...] PART B Sep 23, 2014 PART B [id number] HARMONY MCCALL JR PATIENT MEDICARE (WNR) MEDICARE (M) PART A July 25, 2007 PART A [id number] [id number] HARMONY MCCALL JR PATIENT MEDICARE (WNR) MEDICARE (M) PART B July 25, 2007 PART B [id number] [id number] HARMONY MCCALL JR PATIENT MEDICARE (WNR) MEDICARE (M) PART A July 25, 2007 PART A [id number] [id number] HARMONY MCCALL JR PATIENT [facility] MEDICAL EXPENSE (OPT/PROF ) [facility] * Jan 24, 2015 [id number] CAROLE MCCALL SPOUSE Selected Encounter This section includes the information on record at [place] for the Encounter. Date/Time Encounter Type Encounter Description Reason Provider Source May 11, 2023 10:20 AM EXERCISE CLASS HEALTH/WELLBEING SRVS ICD-10-CM Z72.3 Lack of physical exercise JANIE LAZCANO [facility] Encounter Template Text not used by [place] Assessments - Encounter Diagnoses This section includes the primary and secondary diagnoses documented for the Encounter. Date/Time Primary/Secondary Diagnosis Diagnosis Name Provider Source May 11, 2023 10:29 AM PRIMARY Lack of physical exercise JANIE LAZCANO [place] [facility] [place] [facility] Plan of Treatment: Future Appointments [...] [facility] [place] [facility] May 17, 2023 11:00 AM AMBULATORY - NONE [place] May 24, 2023 11:00 AM AMBULATORY - NONE [place] May 29, 2023 10:00 AM AMBULATORY - NONE [place] [facility] [place] [facility] May 31, 2023 11:00 AM AMBULATORY - NONE [place] Jun 07, 2023 11:00 AM AMBULATORY - NONE [place] Jun 12, 2023 10:00 AM AMBULATORY - NONE [place] [facility] [place] [facility] Jun 14, 2023 11:00 AM AMBULATORY - NONE [place] Jun 21, 2023 11:00 AM AMBULATORY - NONE [place] Jun 26, 2023 10:00 AM AMBULATORY - NONE [place] [facility] [place] [facility] Jun 28, 2023 11:00 AM AMBULATORY - NONE [place] Jul 05, 2023 11:00 AM AMBULATORY - NONE [place] Jul 19, 2023 11:00 AM AMBULATORY - NONE [place] Jul 23, 2023 02:30 PM AMBULATORY - MEDICINE [place] [facility] [place] [facility] July 26, 2023 11:00 AM AMBULATORY - NONE [place] July 31, 2023 10:00 AM AMBULATORY - NONE [place] [facility] [place] [facility] August 02, 2023 11:00 AM [...] YRS OR MORE [place] [facility] [place] [facility] Tobacco [...] VA-TOBACCO QUIT 15 YRS OR MORE [facility] Apr 04, 2017 12:30 PM QUIT TOBACCO USE > 7 YEARS AGO [facility] Apr 05, 2016 01:02 PM QUIT TOBACCO USE > 7 YEARS AGO quit in 1984 [facility] Encounter Notes: All associated encounter notes This [...] informed consent to receive treatment via Telehealth., [place] mailed and has been made verbally aware of [facility] [place] practices. 's Location: address on record unless specified below. Emergency Contact: on record unless specified below. [place] participated remotely in the [facility] exercise program today through [place] Virtual Activity Manager. Activities were focused on progression of their individual exercise prescription (cardiorespiratory fitness training, strength training, etc.) and group-based exercise sessions to include, but not limited to: flexibility training, balance training & functional circuit training. Exercise participation was supervised [facility] by [facility] staff and any questions/concerns were addressed with the patient. Modifications were made to programming as appropriate to suit Veterans individual needs, preferences, and whole health concerns. /es/ Janie Lazcano PT,DPT PHYSICAL THERAPIST Signed: 05/11/2023 10:36 JANIE LAZACNO [facility]
--- OUTSIDE RECORDS SUMMARY | 2024-03-21 08:06 | XMS_ITS | Encounter Summary ---
Author Name Department of [place] Organization [place] Address [address] [place] [address] Care Team Providers Care Glazing Machine Operator Name Role Phone LEN MENDOZA [...] PART B Sep 23, 2014 PART B [id number] HARMONY MCCALL JR PATIENT MEDICARE (WNR) MEDICARE (M) PART A July 25, 2007 PART A [id number] [id number] HARMONY MCCALL JR PATIENT MEDICARE (WNR) MEDICARE (M) PART B July 25, 2007 PART B [id number] [id number] HARMONY MCCALL JR PATIENT MEDICARE (WNR) MEDICARE (M) PART A July 25, 2007 PART A [id number] [id number] HARMONY MCCALL JR [facility]IENT [facility] (OPT/PROF ) [facility] * Jan 24, 2015 [id number] 18 CAROLE MCCALL SPOUSE Selected Encounter This section includes the information on record at [place] for the Encounter. Date/Time Encounter Type Encounter Description Reason Provider Source May 02, 2023 11:23 AM EXERCISE CLASS HEALTH/WELLBEING SRVS ICD-10-CM Z72.3 Lack of physical exercise DAMON ONEILL I[facility] Encounter Template Text not used by [place] Assessments - Encounter Diagnoses This section includes the primary and secondary diagnoses documented for the Encounter. Date/Time Primary/Secondary Diagnosis Diagnosis Name Provider Source May 02, 2023 11:41 AM PRIMARY Lack of physical exercise DAMON ONEILL [place] [facility] [place] [facility] Plan of Treatment: Future Appointments [...] AMBULATORY - NONE [place] [facility] [place] [facility] May 17, 2023 11:00 AM AMBULATORY - NONE [place] May 24, 2023 11:00 AM AMBULATORY - NONE [place] May 29, 2023 10:00 AM AMBULATORY - NONE [place] [facility] [place] [facility] May 31, 2023 11:00 AM AMBULATORY - NONE [place] Jun 07, 2023 11:00 AM AMBULATORY - NONE [place] Jun 12, 2023 10:00 AM AMBULATORY - NONE [place] [facility] [place] [facility] Jun 14, 2023 11:00 AM AMBULATORY - NONE [place] Jun 21, 2023 11:00 AM AMBULATORY - NONE [place] Jun 26, 2023 10:00 AM AMBULATORY - NONE [place] [facility] [place] [facility] Jun 28, 2023 11:00 AM AMBULATORY - NONE [place] Jul 05, 2023 11:00 AM AMBULATORY - NONE [place] Jul 19, 2023 11:00 AM AMBULATORY - NONE [place] Jul 23, 2023 02:30 PM AMBULATORY - MEDICINE [place] [facility] [facility] July 26, 2023 11:00 AM AMBULATORY - NONE [place] July 31, 2023 10:00 AM AMBULATORY - NONE [place] [facility] [place] [facility] August 02, 2023 11:00 AM [...] VA-TOBACCO FORMER USER [facility] [place] [facility] Tobacco Use History This section includes a history of the smoking, or tobacco-related health factors, that were collected on or before the date of the Encounter. The data comes from the [place] facility where the Encounter took place. Date/Time Smoking Status/Tobacco Use Comment F acility Jan 26, 2023 01:30 PM VA-TOBACCO QUIT 15 YRS OR MORE [facility] [place] [facility] Jan 27, 2022 11:00 AM VA-TOBACCO FORMER USER [facility] [place] [facility] Jan 27, 2022 11:00 AM VA-TOBACCO QUIT 15 YRS OR MORE [facility] [place] [facility] Sep 17, 2020 09:00 AM VA-TOBACCO FORMER USER [facility] [place] [facility] Sep 17, 2020 09:00 AM VA-TOBACCO QUIT 15 YRS OR MORE [facility] [place] [facility] Jun 04, 2019 02:57 PM VA-TOBACCO NEVER USED [facility] [place] [facility] Mar 14, 2018 11:23 AM VA-TOBACCO FORMER USER [facility] [place] [facility] Mar 14, 2018 11:23 AM VA-TOBACCO QUIT 15 YRS OR MORE [facility] Apr 04, 2017 12:30 PM QUIT TOBACCO USE > 7 YEARS AGO [facility] Apr 05, 2016 01:02 PM QUIT TOBACCO USE > 7 YEARS AGO quit in 1984 [facility] Encounter Notes: All associated encounter notes This section contains the clinical notes associated to the Encounter. Date/Time Encounter Note(s) Provider Source May 02, 2023 11:39 AM GERIATRIC MEDICINE NOTE: LOCAL TITLE: GEROFIT VCM/VVC/VOD TELEHEALTH SUPERVISED EXERCISE STANDARD TITLE: GERIATRIC MEDICINE NOTE DATE OF NOTE: MAY 02, 2023@11:39 ENTRY DATE: MAY 02, 2023@11:40:07 AUTHOR: DOUG ONEILL COSIGNER: URGENCY: STATUS: COMPLETED GEROFIT VVC/VCM/VOD Telehealth Supervised Exercise NOTE [place] Provided informed consent to receive treatment via Telehealth., [place] mailed and has been made verbally aware of [facility] [place] practices. [place]'s Location: address on record unless specified below. Emergency Contact: on record unless specified below. [place] participated remotely in the Gerofit exercise program today through [place] Virtual Ancillary Specialist. Activities were focused on progression of [...] whole health concerns. /johanny/ VIOLETTA FINK LICENSE SDC TEACHER Signed: 05/02/2023 11:47 DOUG ONEILL [facility]
--- OUTSIDE RECORDS SUMMARY | 2024-03-21 08:06 | XMS_ITS | Encounter Summary ---
Author Name Department of [place] Organization [place] Address [address] [place] [address] Care Team Providers Care Crate Tier Name Role Phone LEN MENDOZA Primary Care [...] PART B Sep 23, 2014 PART B [id number] [id number] [phone] 4 HARMONY MCCALL JR PATIENT MEDICARE (WNR) MEDICARE (M) PART A July 25, 2007 PART A [id number] HARMONY MCCALL JR PATIENT MEDICARE (WNR) MEDICARE (M) PART B July 25, 2007 PART B [id number] [id number] [phone] HARMONY MCCALL JR PATIENT MEDICARE (WNR) MEDICARE (M) PART A July 25, 2007 PART A [id number] [id number] [phone] [id number] HARMONY MCCALL JR PATIENT [facility] MEDICAL EXPENSE (OPT/PROF ) [facility] * Jan 24, 2015 [id number] [phone] CAROLE MCCALL SPOUSE Selected Encounter This section includes the information on record at [place] for the Encounter. Date/Time Encounter Type Encounter Description Reason Provider Source May 31, 2023 11:00 AM GROUP BEHAVE COUNS 2-10 WEIGHT MGMT & MOVE! PROG - GRP ICD-10-CM E66.09 Other obesity due to excess calories MIGUEL KRAMER Erin Encounter Template Text not used by VA Assessments - Encounter Diagnoses This section includes the primary and secondary diagnoses documented for the Encounter. Date/Time Primary/Secondary Diagnosis Diagnosis Name Provider Source Jun 01, 2023 12:11 PM PRIMARY Other obesity due to excess [...] Appointment Type Appointme nt Facility Name Jun 07, 2023 11:00 AM AMBULATORY - NONE [place] Jun 12, 2023 10:00 AM AMBULATORY - NONE [place] [facility] [place] [facility] Jun 14, 2023 11:00 AM AMBULATORY - NONE [place] Jun 21, 2023 11:00 AM AMBULATORY - NONE [place] Jun 26, 2023 10:00 AM AMBULATORY - NONE [place] [facility] [place] [facility] Jun 28, 2023 11:00 AM AMBULATORY - NONE [place] Jul 05, 2023 11:00 AM AMBULATORY - NONE [place] Jul 19, 2023 11:00 AM AMBULATORY - NONE [place] Jul 23, 2023 02:30 PM AMBULATORY - MEDICINE [place] [facility] [place] [facility] July 26, 2023 11:00 AM AMBULATORY - NONE [place] July 31, 2023 10:00 AM AMBULATORY - NONE [place] [facility] [facility] August 02, 2023 11:00 AM AMBULATORY - [...] 25, 2023 11:30 AM AMBULATORY - MEDICINE [place] [facility] [place] [facility] Oct 04, 2023 11:00 AM AMBULATORY - NONE [place] Vital Signs: All taken on the encounter date This section contains inpatient and outpatient Vital Signs collected on the date of the Encounter. Date/Time Temperature Pulse Blood Pressure Respiratory Rate SP02 Pain Height Weight Body Mass Index Source May 31, 2023 11:00 AM 203.5 31 [place] Encounter Notes: All associated encounter notes This section contains the clinical notes associated to the Encounter. Date/Time Encounter Note(s) Provider Source May 31, 2023 11:00 AM MOVE NOTE: LOCAL TITLE: WEIGHT MANAGEMENT/MOVE! OUTPATIENT GROUP NOTE STANDARD TITLE: MOVE NOTE DATE OF NOTE: MAY 31, 2023@11:00 ENTRY DATE: JUN 01, 2023@11:48:30 AUTHOR: SANTIAGO KRAMER COSIGNER: URGENCY: STATUS: COMPLETED [place] participated in MOVE! Group Counseling via [facility] on May. The was provided with information on [facility] and has given verbal consent to use group VV services for their healthcare. The copy of the Group Telehealth Agreement has been mailed to the [place]. The Veterans location/emergency contact number were confirmed. [...] obese Veterans. Group members combined to gain 3.7 pounds since their last attended group. Group members began today's session talking about their success over past week. They were looking forward to the nicer weather with Spring and getting more active. Faciliatators led a discussion on increasing exercise. Group members were introduced to training intern and suggestions were given on topics they could present next week. The next [facility] MOVE! group meeting will be held on 2023 @ 11:00am. 's reported weight was 203.5 lbs. and lost 0.9 pounds since last group attended. Dx: e66.3 z68.29 The session lasted for 60 minutes in duration. /johanny/ SANTIAGO KRAMER STAFF DIETITIAN Signed: 06/01/2023 12:11 SANTIAGO KRAMERFIELD
--- OUTSIDE RECORDS SUMMARY | 2024-03-21 08:06 | XMS_ITS | Encounter Summary ---
Author Name [place] Organization [place] Address [address] [place] [address] Care Team Providers Care Operating Manager Name Role Phone LEN MENDOZA Primary [...] PART B Sep 23, 2014 PART B [id number] PK04 [phone] 4 HARMONY MCCALL JR PATIENT MEDICARE (WNR) MEDICARE (M) PART A July 25, 2007 PART A [id number] HARMONY MCCALL JR PATIENT MEDICARE (WNR) MEDICARE (M) PART B July 25, 2007 PART B [id number] [id number] [phone] HARMONY MCCALL JR PATIENT MEDICARE (WNR) MEDICARE (M) PART A July 25, 2007 PART A [id number] HARMONY MCCALL JR PATIENT [facility] (OPT/PROF ) [facility] * Jan 24, 2015 [id number] CAROLE MCCALL SPOUSE Selected Encounter This section includes the information on record at [place] for the Encounter. Date/Time Encounter Type Encounter Description Reason Provider Source May 03, 2023 11:00 AM WEIGHT MGMT CLASS WEIGHT MGMT & MOVE! PROG - GRP ICD-10-CM Z68.29 Body mass index [BMI] 29.0-29.9, adult GORDON PATHAK [facility] Encounter Template Text not used by VA [...] 23, 2023 02:30 PM AMBULATORY - MEDICINE [place] [facility] July 26, 2023 11:00 AM AMBULATORY - NONE [place] July 31, 2023 10:00 AM AMBULATORY - NONE [place] [facility] August 02, 2023 11:00 AM AMBULATORY - [...] AUTHOR: GORDON PATHAK COSIGNER: URGENCY: STATUS: COMPLETED [place] participated in MOVE! Group Counseling via [facility] on May 03, 2023. The [place] was provided with information on [facility] and has given verbal consent to use group VV services for their healthcare. The copy of the Group Telehealth Agreement has been mailed to the . The Veterans location/emergency contact number were confirmed. The Emergency Call Relay Center ([phone]) was available. The visit was locked for security and privacy. [place] identified with 2 identifiers: [ ] Full Name [ ] Address Veterans attended the [facility] MOVE! group session on [...] goals for the next week. The next [facility] MOVE! group meeting will [...]
--- OUTSIDE RECORDS SUMMARY | 2024-03-21 08:06 | XMS_ITS | Encounter Summary ---
Author Name [place] Address [address] [address] Care Team Providers Care It Coordinator Name Role Phone LEN MENDOZA Primary [...] PART B Sep 23, 2014 PART B [id number] PK04 [phone] 4 HARMONY MCCALL JR PATIENT MEDICARE (WNR) MEDICARE (M) PART A July 25, 2007 PART A [id number] [phone] HARMONY MCCALL JR PATIENT MEDICARE (WNR) MEDICARE (M) PART B July 25, 2007 PART B [id number] [phone] 00 HARMONY MCCALL JR PATIENT MEDICARE (WNR) MEDICARE (M) PART A July 25, 2007 PART A [id number] HARMONY MCCALL JR PATIENT [facility] MEDICAL EXPENSE (OPT/PROF ) [facility] * Jan 24, 2015 [id number] CAROLE MCCALL SPOUSE Selected Encounter This section includes the information on record at [place] for the Encounter. Date/Time Encounter Type Encounter Description Reason Provider Source May 17, 2023 11:00 AM WEIGHT MGMT CLASS WEIGHT MGMT & MOVE! PROG - GRP ICD-10-CM Z68.29 Body mass index [BMI] 29.0-29.9, adult GORDON PATHAK [facility] Encounter Template Text not used [...] 29, 2023 10:00 AM AMBULATORY - NONE [place] [facility] [place] [facility] May 31, 2023 11:00 AM AMBULATORY - NONE [place] Jun 07, 2023 11:00 AM AMBULATORY - NONE [place] Jun 12, 2023 10:00 AM AMBULATORY - NONE [place] [facility] [place] [facility] Jun 14, 2023 11:00 AM AMBULATORY - NONE [place] Jun 21, 2023 11:00 AM AMBULATORY - NONE [place] Jun 26, 2023 10:00 AM AMBULATORY - NONE [place] [facility] [place] [facility] Jun 28, 2023 11:00 AM AMBULATORY - NONE [place] Jul 05, 2023 11:00 AM AMBULATORY - NONE [place] Jul 19, 2023 11:00 AM AMBULATORY - NONE [place] Jul 23, 2023 02:30 PM AM[facility]UL[facility] July 26, 2023 11:00 AM AM[facility]ULATORY - NONE [place] July 31, 2023 10:00 AM AMBULATORY - NONE [facility] August 02, 2023 11:00 AM AMBULATORY [...] AUTHOR: GORDON PATHAK COSIGNER: URGENCY: STATUS: COMPLETED [place] participated in MOVE! Group Counseling via [facility] on May 17, 2023. The [place] was provided with information on [facility] and has given verbal consent to [...] Name [ ] Address Veterans attended the [facility] MOVE! group session on this date. [...] goals for the next week. The next [facility] MOVE! group meeting will be held on May 24, 2023 @ 11:00am. 's reported weight was 203.3 lbs. and lost 3.0 pounds since last group attended. Dx: Overweight Obesity E66.3 BMI 29.0-29.9 The session lasted for 1 hour in duration. /johanny/ GORDON PATHAK, Ph.D. CLINICAL PSYCHOLOGIST Signed: 05/18/2023 15:35 GORDON PATHAK
--- OUTSIDE RECORDS SUMMARY | 2024-03-21 08:06 | XMS_ITS | Encounter Summary ---
Author Name [facility] [place] Organization [place] Address [address] [place] [address] Care Team Providers Care Spar Finisher Name Role Phone LEN MENDOZA Primary Care [...] PART B Sep 23, 2014 PART B [id number] HARMONY MCCALL JR PATIENT MEDICARE (WNR) MEDICARE (M) PART A July 25, 2007 PART A [id number] [phone] HARMONY MCCALL JR PATIENT MEDICARE (WNR) MEDICARE (M) PART B July 25, 2007 PART B [id number] HARMONY MCCALL JR PATIENT MEDICARE (WNR) MEDICARE (M) PART A July 25, 2007 PART A [id number] HARMONY MCCALL JR PATIENT FORMERLY [facility] MEDICAL EXPENSE (OPT/PROF ) [facility] [place] * Jan 24, 2015 [id number] 18 CAROLE MCCALL SPOUSE Selected Encounter This section includes the information on record at [place] for the Encounter. Date/Time Encounter Type Encounter Description Reason Provider Source May 29, 2023 10:00 AM PT EDUCATION NOC GROUP NUTRITION/DIETETI CS-GROUP ICD-10-CM Z71.3 Dietary counseling and surveillance CURTIS GRACIA Erin Encounter Template Text not used by [place] Assessments - Encounter Diagnoses This section includes the primary and secondary diagnoses documented for the Encounter. Date/Time Primary/Secondary Diagnosis Diagnosis Name Provider Source May 31, 2023 09:04 AM PRIMARY Dietary counseling and surveillance CURTIS GRACIA [facility] Plan of Treatment: Future Appointments (+ 6 [...] 2023 10:00 AM AMBULATORY - NONE [place] [facility] [place] [facility] Jun 14, 2023 11:00 AM AM[facility]ULATORY - NONE [place] Jun 21, 2023 11:00 AM AMBULATORY - NONE [place] Jun 26, 2023 10:00 AM AMBULATORY - NONE [facility] [place] [facility] Jun 28, 2023 11:00 AM AMBULATORY - NONE [place] Jul 05, 2023 11:00 AM AMBULATORY - NONE [place] Jul 19, 2023 11:00 AM AMBULATORY - NONE [place] Jul 23, 2023 02:30 PM AMBULATORY - MEDICINE [place] [facility] [place] [place] [facility] July 26, 2023 11:00 AM AMBULATORY - NONE [place] July 31, 2023 10:00 AM AMBULATORY - NONE [facility] [place] [facility] August 02, 2023 11:00 AM AMBULATORY - [...] - MEDICINE [facility] [place] [facility] Social History: Smoking Status (Most current) and [...] VA-TOBACCO FORMER USER [facility] [place] [facility] Tobacco Use History This section includes a history of the smoking, or tobacco-related health factors, that were collected on or before the date of the Encounter. The data comes from the [place] facility where the Encounter took place. Date/Time Smoking Status/Tobacco Use Comment F acility Jan 26, 2023 01:30 PM VA-TOBACCO QUIT 15 YRS OR MORE [facility] [place] [facility] Jan 27, 2022 11:00 AM VA-TOBACCO FORMER USER [facility] [place] [facility] Jan 27, 2022 11:00 AM VA-TOBACCO QUIT 15 YRS OR MORE [facility] [place] [facility] Sep 17, 2020 09:00 AM VA-TOBACCO FORMER USER [facility] [place] [facility] Sep 17, 2020 09:00 AM VA-TOBACCO QUIT 15 YRS OR MORE [facility] [place] [facility] Jun 04, 2019 02:57 PM VA-TOBACCO NEVER USED [facility] [place] [facility] Mar 14, 2018 11:23 AM VA-TOBACCO FORMER USER [facility] [place] [facility] Mar 14, 2018 11:23 AM VA-TOBACCO QUIT 15 YRS OR MORE [facility] [place] [facility] Apr 04, 2017 12:30 PM QUIT TOBACCO USE > 7 [facility] Apr 05, 2016 01:02 PM QUIT TOBACCO USE > 7 YEARS AGO quit in 1984 [facility] Encounter Notes: All associated encounter notes [...] STATUS: COMPLETED Veterans participated in HTK via [facility] on: 05/29/23. The was provided with information on [facility] and has given verbal consent to use group [facility] services for their healthcare. The copy of the Group Telehealth Agreement has been mailed to the [place]. The [place]'s location/emergency contact number were confirmed. The Emergency Call Relay Center (E911) was available. The visit was locked for security and privacy. [place] identified with 2 identifiers: [x] Full Name [x] Address This class was taught by one Registered Dietitian with one co-host dietitian Dx: Z71.3 Time Spent: 60 minutes Participants: 8 Veterans Nutrition Education Topics: Intro to [facility] HTK, Nutrient content of recipe ingredients Cooking demonstration: Lemon Poppy Seed Muffins, Shrimp and Broccoli Pasta, HTK [place] Veterans attended the 66th class of the [facility] Healthy Teaching Kitchen. Today we went over the Group Telehealth Agreement, how HTK via [facility] works, food safety, knife safety, [...] Staff Dietitian Signed: 05/31/2023 09:05 CURTIS GRACIA [facility]
--- OUTSIDE RECORDS SUMMARY | 2024-03-21 08:06 | XMS_ITS | Encounter Summary ---
Author Name [facility] [place] Organization [place] Address [address] [place] [address] Care Team Providers Care Air Conditioner Installer Helper Name Role Phone LEN MENDOZA Primary [...] PART B Sep 23, 2014 PART B [id number] [id number] [phone] [id number] HARMONY MCCALL JR PATIENT MEDICARE (WNR) MEDICARE (M) PART A July 25, 2007 PART A [id number] HARMONY MCCALL JR PATIENT MEDICARE (WNR) MEDICARE (M) PART B July 25, 2007 PART B [id number] [id number] HARMONY MCCALL JR PATIENT MEDICARE (WNR) MEDICARE (M) PART A July 25, 2007 PART A [id number] [id number] HARMONY MCCALL JR PATIENT [facility] MEDICAL EXPENSE (OPT/PROF ) [facility] * Jan 24, 2015 [id number] 18 CAROLE MCCALL SPOUSE Selected Encounter This [...] AMBULATORY - NONE [facility] [place] [facility] May 31, 2023 11:00 AM AMBULATORY - NONE [place] Jun 07, 2023 11:00 AM AMBULATORY - NONE [place] Jun 12, 2023 10:00 AM AMBULATORY - NONE [facility] [place] [facility] Jun 14, 2023 11:00 AM AMBULATORY - NONE [place] Jun 21, 2023 11:00 AM AMBULATORY - NONE [place] Jun 26, 2023 10:00 AM AMBULATORY - NONE [facility] [place] [facility] Jun 28, 2023 11:00 AM AMBULATORY - NONE [place] Jul 05, 2023 11:00 AM AMBULATORY - NONE [place] Jul 19, 2023 11:00 AM AMBULATORY - NONE [place] Jul 23, 2023 02:30 PM AMBULATORY - MEDICINE [facility] [place] [facility] July 26, 2023 11:00 AM AMBULATORY - NONE [place] July 31, 2023 10:00 AM AMBULATORY - NONE [facility] [place] [facility] August 02, 2023 11:00 AM AMBULATORY [...] AUTHOR: SANTIAGO KRAMER COSIGNER: URGENCY: STATUS: COMPLETED [place] participated in MOVE! Group Counseling via [facility] on May 17, 2023. The was provided with information on [facility] and has given verbal consent to use group VV services for their healthcare. The copy of the Group Telehealth Agreement has been mailed to the [place]. The Veterans location/emergency contact number were confirmed. The Emergency Call Relay Center (E911) was available. The visit was locked for security and privacy. identified with 2 identifiers: [ ] Full Name [ ] Address Veterans attended the [facility] MOVE! group session on this [...] the group was pretty quite. The next [facility] MOVE! group meeting will be [...]
--- OUTSIDE RECORDS SUMMARY | 2024-03-21 08:06 | XMS_ITS | Encounter Summary ---
Author Name [place] Address [address] [place] [id number] Care Team Providers Care Cable Technician Name Role Phone LEN MENDOZA Primary [...] PART B Sep 23, 2014 PART B [id number] PK04 [phone] [id number] HARMONY MCCALL JR PATIENT MEDICARE (WNR) MEDICARE (M) PART A July 25, 2007 PART A [id number] [id number] HARMONY MCCALL JR PATIENT MEDICARE (WNR) MEDICARE (M) PART B July 25, 2007 PART B [id number] [id number] HARMONY MCCALL JR PATIENT MEDICARE (WNR) MEDICARE (M) PART A July 25, 2007 PART A [id number] [id number] HARMONY MCCALL JR PATIENT [facility] MEDICAL EXPENSE (OPT/PROF ) [facility] [place] * Jan 24, 2015 [id number] 18 CAROLE MCCALL SPOUSE Selected Encounter This [...] Lack of physical exercise [place] [facility] [place] [facility] Plan of Treatment: Future Appointments (+ [...] AMBULATORY - NONE [facility] [place] [facility] May 17, 2023 11:00 AM AMBULATORY - NONE [place] May 24, 2023 11:00 AM AMBULATORY - NONE [place] May 29, 2023 10:00 AM AMBULATORY - NONE [facility] [place] [facility] May 31, 2023 11:00 AM AMBULATORY - NONE [place] Jun 07, 2023 11:00 AM AMBULATORY - NONE [place] Jun 12, 2023 10:00 AM AMBULATORY - NONE [facility] [place] [facility] Jun 14, 2023 11:00 AM AMBULATORY - NONE [place] Jun 21, 2023 11:00 AM AMBULATORY - NONE [place] Jun 26, 2023 10:00 AM AMBULATORY - NONE [facility] [place] [facility] Jun 28, 2023 11:00 AM AMBULATORY - NONE [place] Jul 05, 2023 11:00 AM AMBULATORY - NONE [place] Jul 19, 2023 11:00 AM AMBULATORY - NONE [place] Jul 23, 2023 02:30 PM AMBULATORY - MEDICINE [facility] [place] [facility] July 26, 2023 11:00 AM AMBULATORY - NONE [place] July 31, 2023 10:00 AM AMBULATORY - NONE [facility] [place] [facility] August 02, 2023 11:00 AM AMBULATORY [...] VA-TOBACCO FORMER USER [facility] [place] [facility] Tobacco Use History This section includes a history of the smoking, or tobacco-related health factors, that were collected on or before the date of the Encounter. The data comes from the [place] facility where the Encounter took place. Date/Time Smoking Status/Tobacco Use Comment F acility Jan 26, 2023 01:30 PM VA-TOBACCO QUIT 15 YRS OR MORE [facility] [place] [facility] Jan 27, 2022 11:00 AM VA-TOBACCO FORMER USER [facility] [place] [facility] Jan 27, 2022 11:00 AM VA-TOBACCO QUIT 15 YRS OR MORE [facility] [place] [facility] Sep 17, 2020 09:00 AM VA-TOBACCO FORMER USER [facility] [place] [facility] Sep 17, 2020 09:00 AM VA-TOBACCO QUIT 15 YRS OR MORE [facility] [place] [facility] Jun 04, 2019 02:57 PM VA-TOBACCO NEVER USED [facility] [place] [facility] Mar 14, 2018 11:23 AM VA-TOBACCO FORMER USER [facility] [place] [facility] Mar 14, 2018 11:23 AM VA-TOBACCO QUIT 15 YRS OR MORE [facility] Apr 04, 2017 12:30 PM QUIT TOBACCO USE > 7 YEARS AGO [facility] Apr 05, 2016 01:02 PM QUIT TOBACCO USE > 7 YEARS AGO quit in 1984 [facility] Encounter Notes: All associated encounter notes [...] COMPLETED GEROFIT VVC/VCM/VOD Telehealth Supervised Exercise NOTE [place] Provided informed consent to receive treatment via Telehealth., [place] mailed and has been made verbally aware of Telehealth Group [place] practices. [place]'s Location: address on record unless specified below. Emergency Contact: on record unless specified below. [place] participated remotely in the Gerofit exercise program today through [place] Virtual Manager Product Design. Activities were focused on progression of their [...] whole health concerns. /johanny/ VIOLETTA FINK LICENSE CURING MACHINE OPERATOR Signed: 05/09/2023 11:05 DOUG ONEILL [facility]
--- OUTSIDE RECORDS SUMMARY | 2024-03-21 08:06 | XMS_ITS | Encounter Summary ---
Author Name Department of [place] Organization [place] Address [address] [place] [address] Care Team Providers Care Rough And Truing Machine Operator Name Role Phone LEN MENDOZA [...] PART B Sep 23, 2014 PART B [id number] [id number] [phone] 4 HARMONY MCCALL JR PATIENT MEDICARE (WNR) MEDICARE (M) PART A July 25, 2007 PART A [id number] HARMONY MCCALL JR PATIENT MEDICARE (WNR) MEDICARE (M) PART B July 25, 2007 PART B [id number] [id number] HARMONY MCCALL JR PATIENT MEDICARE (WNR) MEDICARE (M) PART A July 25, 2007 PART A [id number] PK04 [phone] [id number] HARMONY MCCALL JR PATIENT [facility] MEDICAL EXPENSE (OPT/PROF ) [facility] * Jan 24, 2015 [id number] 18 CAROLE MCCALL SPOUSE Selected Encounter This section includes the information on record at [place] for the Encounter. Date/Time Encounter Type Encounter Description Reason Provider Source May 10, 2023 11:00 AM GROUP BEHAVE COUNS 2-10 WEIGHT MGMT & MOVE! PROG - GRP ICD-10-CM E66.09 Other obesity due to excess calories MIGUEL KRAMER Erin Encounter Template Text not used by [place] Assessments - Encounter Diagnoses This section includes the primary and secondary diagnoses documented for the Encounter. Date/Time Primary/Secondary Diagnosis Diagnosis Name Provider Source May 14, 2023 08:01 PM PRIMARY Other obesity due to excess [...] AMBULATORY - NONE [facility] [place] [facility] May 17, 2023 11:00 AM AMBULATORY - NONE [place] May 24, 2023 11:00 AM AMBULATORY - NONE [place] May 29, 2023 10:00 AM AMBULATORY - NONE [facility] [place] [facility] May 31, 2023 11:00 AM AMBULATORY - NONE [place] Jun 07, 2023 11:00 AM AMBULATORY - NONE [place] Jun 12, 2023 10:00 AM AMBULATORY - NONE [facility] [place] [facility] Jun 14, 2023 11:00 AM AMBULATORY - NONE [place] Jun 21, 2023 11:00 AM AMBULATORY - NONE [place] Jun 26, 2023 10:00 AM AMBULATORY - NONE [facility] [facility] Jun 28, 2023 11:00 AM AMBULATORY - NONE [place] Jul 05, 2023 11:00 AM AMBULATORY - NONE [place] Jul 19, 2023 11:00 AM AMBULATORY - NONE [place] Jul 23, 2023 02:30 PM AMBULATORY - MEDICINE [facility] [place] [place] [facility] July 26, 2023 11:00 AM AMBULATORY - NONE [place] July 31, 2023 10:00 AM AMBULATORY - NONE [facility] [place] [place] [facility] August 02, 2023 11:00 AM AMBULATORY [...] Height Weight Body Mass Index Source May 10, 2023 11:26 AM 204.3 31 [place] Encounter Notes: All associated encounter notes This section contains the clinical notes associated to the Encounter. Date/Time Encounter Note(s) Provider Source May 10, 2023 11:00 AM MOVE NOTE: LOCAL TITLE: WEIGHT MANAGEMENT/MOVE! OUTPATIENT GROUP NOTE STANDARD TITLE: MOVE NOTE DATE OF NOTE: MAY 10, 2023@11:00 ENTRY DATE: MAY 14, 2023@19:36:17 AUTHOR: SANTIAGO KRAMER COSIGNER: URGENCY: STATUS: COMPLETED participated in MOVE! Group Counseling via [facility] on May 10, 2023. The [place] was provided with information on [facility] and has given verbal consent to [...] Name [ ] Address Veterans attended the [facility] MOVE! group session on this date. MOVE! is a program designed to provide education about weight management skills to overweight and obese Veterans. Group members combined to lost 0 pounds since their last attended group. Group members began today's session discussing how they dealt with super bowl and strategies they used to be successful. Faciliators encouraged group members to set goals and come to next session with topics to discuss. The next [facility] MOVE! group meeting will be held on April @ 11:00am. 's reported weight was 204.3 lbs. and lost 2 pounds since last group attended. Dx: e66.3 z68.29 The session lasted for 1 hour in duration. /johanny/ SANTIAGO KRAMER STAFF DIETITIAN Signed: 05/14/2023 20:02 Receipt Acknowledged By: 05/18/2023 11:22 /johanny/ GORDON PATHAK, Ph.D. CLINICAL PSYCHOLOGIST SANTIAGO KRAMERFIELD
--- OUTSIDE RECORDS SUMMARY | 2024-03-21 08:07 | XMS_ITS | Encounter Summary ---
Author Name [place] Organization [place] Address [address] [place] [id number] Care Team Providers Care Sales And Marketing Coordinator Name Role Phone LEN MENDOZA Primary [...] PART B Sep 23, 2014 PART B [id number] HARMONY MCCALL JR PATIENT MEDICARE (WNR) MEDICARE (M) PART A July 25, 2007 PART A [id number] [id number] HARMONY MCCALL JR PATIENT MEDICARE (WNR) MEDICARE (M) PART B July 25, 2007 PART B [id number] [id number] [phone] [id number] HARMONY MCCALL JR PATIENT MEDICARE (WNR) MEDICARE (M) PART A July 25, 2007 PART A [id number] [id number] HARMONY MCCALL JR PATIENT REPLACED BY [facility] MEDICAL EXPENSE (OPT/PROF ) [facility] * Jan 24, 2015 [id number] 18 CAROLE MCCALL SPOUSE Selected Encounter This section includes the information on record at [place] for the Encounter. Date/Time Encounter Type Encounter Description Reason Provider Source Jun 28, 2023 11:00 AM WEIGHT MGMT CLASS WEIGHT MGMT & MOVE! PROG - GRP ICD-10-CM Z68.29 Body mass index [BMI] 29.0-29.9, adult GORDON PATHAK [facility] Encounter Template Text not used by [place] Assessments - Encounter Diagnoses This section includes [...] care activities for the patient from all [place] treatmentfacilities. This section includes future appointments and future orders which are active, pending or scheduled. Future Appointments This section includes appointments that were scheduled to occur 6 months from the date of the Encounter, up to a maximum of 20 appointments. The data comes from all [place] treatment facilities. Appointment Date/Time Appointment Type Appointme nt Facility Name Jul 05, 2023 11:00 AM AMBULATORY - NONE [place] Jul 19, 2023 11:00 AM AMBULATORY - NONE [place] Jul 23, 2023 02:30 PM AMBULATORY - MEDICINE [facility] July 26, 2023 11:00 AM AMBULATORY - NONE [place] July 31, 2023 10:00 AM AMBULATORY - NONE [facility] August 02, 2023 11:00 AM AMBULATORY [...] - MEDICINE [facility] [place] [place] [facility] Oct 04, 2023 11:00 AM AMBULATORY - NONE [place] Oct 11, 2023 11:00 AM AMBULATORY - NONE [place] Oct 18, 2023 11:00 AM AMBULATORY - NONE [place] Oct 23, 2023 09:00 AM AMBULATORY - NONE [facility] [place] [place] [facility] Oct 25, 2023 11:00 AM AMBULATORY - NONE [place] Nov 01, 2023 11:00 AM AMBULATORY - NONE [place] Nov 08, 2023 11:00 AM AMBULATORY - NONE [place] Lab Results: +/- 30 days of the encounter This section includes the Chemistry and Hematology Lab Results on record with [place] for the patient. Radiology Reports and Pathology Reports are provided separately, in subsequent sections. Lab Results This section contains the Chemistry/Hematology Results that were resulted 30 days before or 30 daysafter the date of the Encounter. Date/Time Source Result Type Result - Unit Interpretation Reference Range Comment Jul 19, 2023 09:25 AM [facility] LIPID PANEL, NON FASTING Specimen Type: SERUM No comment entered. Ordering Provider: JANE MENDOZA Report Released Date/Time: Jul 12, 2023 10:12 AM Reporting Lab: [facility] [facility] [address] [facility] [address] Performing Lab: [facility] [address] [facility] [address] CHOLESTEROL 119 mg/dL TRIGLYCERIDE 48 mg/dL 0-150 LDL calculated 63 mg/dL 0-129 CHOL/HDL 2.6 HDL CHOLESTEROL 46 mg/dL 40-60 Jul 19, 2023 09:25 AM [facility] TSH Specimen Type: SERUM No comment entered. Ordering Provider: JANE MENDOZA Report Released Date/Time: Jul 12, 2023 10:12 AM Reporting Lab: [place] [facility] [place] [facility] [address] [facility] [address] Performing Lab: [facility] [address] [facility] [address] TSH 0.67 u[IU]/mL 0.35-5.00 Jul 19, 2023 09:25 AM [facility] LIVER FUNCTION Specimen Type: SERUM No comment entered. Ordering Provider: JANE MENDOZA Report Released Date/Time: Jul 12, 2023 10:12 AM Reporting Lab: [facility] [address] [facility] [address] Performing Lab: [address] [address] PROTEIN,TOTAL 6.7 g/dL 6.0-8.3 ALBUMIN 3.8 g/dL 3.5-5.0 ALKALINE PHOSPHATASE 55 U/L 40-150 AST 26 U/L 5-34 ALT 26 U/L BILIRUBIN, TOTAL 0.6 mg/dL 0.2-1.2 Jul 19, 2023 09:25 AM [facility] BASIC METABOLIC PANEL (non-fasting) Specimen Type: SERUM No comment entered. Ordering Provider: JANE MENDOZA Report Released Date/Time: Jul 12, 2023 10:12 AM Reporting Lab: [facility] [address] [facility] [address] Performing Lab: [address] [address] UREA NITROGEN 19 mg/dL 7-25 GLUCOSE 95 mg/dL 65-100 SODIUM 142 mmol/L 135-145 POTASSIUM 4.7 mmol/L 3.5-5.0 CHLORIDE 107 mmol/L 100-110 CO2 28 meq/L 20-30 CREATININE, Serum 0.90 mg/dL 0.50-1.40 eGFR(CKD-EPI 2020) 86 mL/min >60 Jul 19, 2023 09:25 AM [facility] CBC Specimen Type: BLOOD No comment entered. Ordering Provider: JANE MENDOZA Report Released Date/Time: Jul 12, 2023 10:12 AM Reporting Lab: [facility] [address] [facility] [address] Performing Lab: [address] [address] WBC 7.33 10*3/uL 4.50-11.00 RBC 4.94 10*6/uL [...] COMPLETED participated in MOVE! Group Counseling via [facility] on June 28, 2023. The [place] was provided with information on [facility] and has given verbal consent to use [...] ] Address Veterans attended the [facility] MOVE! group session on this date. MOVE! [...] the next week. The next [facility] MOVE! group meeting will be held on [...]
--- OUTSIDE RECORDS SUMMARY | 2024-03-21 08:07 | XMS_ITS | Encounter Summary ---
Author Name [facility] [place] Organization [place] Address [address] [place] [id number] Care Team Providers Care Power Marketer Name Role Phone LEN MENDOZA Primary Care [...] PART B Sep 23, 2014 PART B [id number] HARMONY MCCALL JR PATIENT MEDICARE (WNR) MEDICARE (M) PART A July 25, 2007 PART A [id number] HARMONY MCCALL JR PATIENT MEDICARE (WNR) MEDICARE (M) PART B July 25, 2007 PART B [id number] HARMONY MCCALL JR PATIENT MEDICARE (WNR) MEDICARE (M) PART A July 25, 2007 PART A [id number] HARMONY MCCALL JR PATIENT [facility] (OPT/PROF ) [facility] * Jan 24, 2015 [id number] CAROLE MCCALL SPOUSE Selected Encounter This section includes the information on record at [place] for the Encounter. Date/Time Encounter Type Encounter Description Reason Provider Source August 24, 2023 08:00 AM EXERCISE CLASS HEALTH/WELLBEING SRVS ICD-10-CM Z72.3 Lack of physical exercise TERRY COATES [facility] Encounter Template Text not used by [place] Assessments - Encounter Diagnoses This section includes the primary and secondary diagnoses documented for the Encounter. Date/Time Primary/Secondary Diagnosis Diagnosis Name Provider Source August 24, 2023 10:40 AM PRIMARY Lack of physical exercise TERRY COATES [facility] Plan of Treatment: Future Appointments (+ [...] 25, 2023 11:30 AM [facility] [place] [facility] Oct 04, 2023 11:00 AM AMBULATORY - NONE [place] Oct 11, 2023 11:00 AM AMBULATORY - NONE [place] Oct 18, 2023 11:00 AM AMBULATORY - NONE [place] Oct 23, 2023 09:00 AM AMBULATORY - NONE [facility] [place] [facility] Oct 25, 2023 11:00 AM AMBULATORY [...] NONE [facility] [place] [facility] Dec 06, 2023 11:00 AM AMBULATORY - NONE [place] Dec 11, 2023 10:00 AM AMBULATORY - NONE [facility] [place] [facility] Dec 11, 2023 01:00 PM AMBULATORY - MEDICINE [facility] [place] [facility] Dec 13, 2023 11:00 AM [facility] Social History: Smoking Status (Most current) and [...] MORE [facility] [place] [facility] Tobacco Use History This section includes a history of the smoking, or tobacco-related health factors, that were collected on or before the date of the Encounter. The data comes from the [place] facility where the Encounter took place. Date/Time Smoking Status/Tobacco Use Comment F acility Jan 26, 2023 01:30 PM VA-TOBACCO QUIT 15 YRS OR MORE [facility] [place] [facility] Jan 27, 2022 11:00 AM VA-TOBACCO FORMER USER [facility] [place] [facility] Jan 27, 2022 11:00 AM VA-TOBACCO QUIT 15 YRS OR MORE [facility] [place] [facility] Sep 17, 2020 09:00 AM VA-TOBACCO FORMER USER [facility] [place] [facility] Sep 17, 2020 09:00 AM VA-TOBACCO QUIT 15 YRS OR MORE [facility] [place] [facility] Jun 04, 2019 02:57 PM VA-TOBACCO NEVER USED [facility] [place] [facility] Mar 14, 2018 11:23 AM VA-TOBACCO FORMER USER [facility] [place] [facility] Mar 14, 2018 11:23 AM VA-TOBACCO QUIT 15 YRS OR MORE [facility] [place] [facility] Apr 04, 2017 12:30 PM QUIT TOBACCO USE > 7 YEARS AGO [facility] Apr 05, 2016 01:02 PM QUIT TOBACCO USE > 7 YEARS AGO quit in 1985 [facility] Encounter Notes: All associated encounter notes This section contains the clinical notes associated to the Encounter. Date/Time Encounter Note(s) Provider Source August 24, 2023 10:39 AM GERIATRIC MEDICINE NOTE: LOCAL TITLE: GEROFIT VCM/VVC/VOD TELEHEALTH SUPERVISED EXERCISE STANDARD TITLE: GERIATRIC MEDICINE NOTE DATE OF NOTE: AUGUST 24, 2023@10:39 ENTRY DATE: AUGUST 24, 2023@10:39:42 AUTHOR: TERRY COATES EXP COSIGNER: URGENCY: STATUS: COMPLETED Provided informed consent to receive treatment via Telehealth., [place] mailed and has been made verbally aware of Telehealth Group [place] practices. [place]'s Location: address on record unless specified below. Emergency Contact: on record unless specified below. [place] participated remotely in the [facility] exercise program today through [place] Virtual Senior Accountant Analyst. Activities were focused on progression of their individual exercise prescription (cardiorespiratory fitness training, strength training, etc.) and group-based exercise sessions to include, but not limited to: flexibility training, balance training & functional circuit training. Exercise participation was supervised remotely by [facility] staff and any questions/concerns were addressed with the patient. Modifications were made to programming as appropriate to suit Veterans individual needs, preferences, and whole health concerns. /johanny/ TERRY COATES, PT, DPT PHYSICAL THERAPIST Signed: 08/24/2023 10:42 TERRY COATES [facility]
--- OUTSIDE RECORDS SUMMARY | 2024-03-21 08:07 | XMS_ITS | Encounter Summary ---
Author Name [place] Address [address] [place] [address] Care Team Providers Care Claim Representative Name Role Phone LEN MENDOZA Primary [...] PART B Sep 23, 2014 PART B [id number] HARMONY MCCALL JR PATIENT MEDICARE (WNR) MEDICARE (M) PART A July 25, 2007 PART A [id number] HARMONY MCCALL JR PATIENT MEDICARE (WNR) MEDICARE (M) PART B July 25, 2007 PART B [id number] [phone] HARMONY MCCALL JR PATIENT MEDICARE (WNR) MEDICARE (M) PART A July 25, 2007 PART A [id number] [phone] [id number] HARMONY MCCALL JR PATIENT [facility] MEDICAL EXPENSE (OPT/PROF ) [facility] [place] * Jan 24, 2015 [id number] CAROLE MCCALL SPOUSE Selected Encounter This section includes the information on record at [place] for the Encounter. Date/Time Encounter Type Encounter Description Reason Provider Source July 31, 2023 10:00 AM PT EDUCATION NOC GROUP NUTRITION/DIETETI CS-GROUP ICD-10-CM Z71.3 Dietary counseling and surveillance CURTIS GRACIA [facility] Encounter Template Text not used by [place] Assessments - Encounter Diagnoses This section includes the primary and secondary diagnoses documented for the Encounter. Date/Time Primary/Secondary Diagnosis Diagnosis Name Provider Source July 31, 2023 03:34 PM PRIMARY Dietary counseling and surveillance CURTIS GRACIA [facility] Plan of Treatment: Future Appointments (+ [...] 25, 2023 11:30 AM [facility] Oct 04, 2023 11:00 AM AMBULATORY - NONE [place] Oct 11, 2023 11:00 AM AMBULATORY - NONE [place] Oct 18, 2023 11:00 AM AMBULATORY - NONE [place] Oct 23, 2023 09:00 AM [facility] [place] [facility] Oct 25, 2023 11:00 AM AMBULATORY [...] 2023 02:00 PM [facility] [place] [facility] Dec 06, 2023 11:00 AM AMBULATORY - NONE [place] Lab Results: +/- 30 days of the encounter This section includes the Chemistry and Hematology Lab Results on record with [place] for the patient. Radiology Reports and Pathology Reports are provided separately, in subsequent sections. Lab Results This section contains the Chemistry/Hematology Results that were resulted 30 days before or 30 daysafter the date of the Encounter. Date/Time Source Result Type Result - Unit Interpretation Reference Range Comment Jul 19, 2023 09:25 AM [facility] TSH Specimen Type: SERUM No comment entered. Ordering Provider: JANE MENDOZA Report Released Date/Time: Jul 12, 2023 10:12 AM Reporting Lab[facility] [place] [facility] [address] [facility] [address] Performing Lab: [facility] [address] [facility] [address] TSH 0.67 u[IU]/mL 0.35-5.00 Jul 19, 2023 09:25 AM [facility] LIPID PANEL, NON FASTING Specimen Type: SERUM No comment entered. Ordering Provider: JANE MENDOZA Report Released Date/Time: Jul 12, 2023 10:12 AM Reporting Lab: [facility] [place] [facility] [address] [facility] [address] Performing Lab: [facility] [address] [facility] [address] CHOLESTEROL 119 mg/dL TRIGLYCERIDE 48 mg/dL 0-150 LDL calculated 63 mg/dL 0-129 CHOL/HDL 2.6 HDL CHOLESTEROL 46 mg/dL 40-60 Jul 19, 2023 09:25 AM [facility] LIVER FUNCTION Specimen Type: SERUM No comment entered. Ordering Provider: JANE MENDOZA Report Released Date/Time: Jul 12, 2023 10:12 AM Reporting Lab: [facility] [address] [facility] [address] Performing Lab: [address] [address] PROTEIN,TOTAL 6.7 g/dL 6.0-8.3 ALBUMIN 3.8 g/dL 3.5-5.0 ALKALINE PHOSPHATASE 55 U/L 40-150 AST 26 U/L 5-34 ALT 26 U/L BILIRUBIN, TOTAL 0.6 mg/dL 0.2-1.2 Jul 19, 2023 09:25 AM [facility] BASIC METABOLIC PANEL (non-fasting) Specimen Type: SERUM No comment entered. Ordering Provider: JANE MENDOZA Report Released Date/Time: Jul 12, 2023 10:12 AM Reporting Lab: [address] [address] Performing Lab: [address] [address] UREA NITROGEN 19 mg/dL 7-25 GLUCOSE 95 mg/dL 65-100 SODIUM 142 mmol/L 135-145 POTASSIUM 4.7 mmol/L 3.5-5.0 CHLORIDE 107 mmol/L 100-110 CO2 28 meq/L 20-30 CREATININE, Serum 0.90 mg/dL 0.50-1.40 eGFR(CKD-EPI 2020) 86 mL/min >60 Jul 19, 2023 09:25 AM [facility] CBC Specimen Type: BLOOD No comment entered. Ordering Provider: JANE MENDOZA Report Released Date/Time: Jul 12, 2023 10:12 AM Reporting Lab: [address] [address] Performing Lab: [address] [address] WBC 7.33 10*3/uL 4.50-11.00 RBC 4.94 10*6/uL [...] 26, 2023 01:30 PM VA-TOBACCO FORMER USER [place] [facility] [place] [facility] Tobacco [...] YRS OR MORE [place] [facility] [place] [facility] Jan [...] CNTRL [facility] [place] [facility] Apr 04, 2017 12:30 PM QUIT TOBACCO USE > 7 YEARS AGO [facility] [place] [facility] Apr 05, 2016 01:02 PM QUIT [...] in HTK via VV on: 07/31/23. The [place] was provided with information on [facility] and has given verbal consent to use group [facility] services for their healthcare. The [...] 1 collaterals Nutrition Education Topics: Intro to [facility] HTK, Nutrient content of recipe ingredients Cooking demonstration: Cheesy Broccoli Rice, Blackened [place] Bites Veterans attended the 69th class of the [facility] Healthy Teaching Kitchen. Today we went [...] Staff Dietitian Signed: 07/31/2023 15:36 CURTIS GRACIA [facility]
--- OUTSIDE RECORDS SUMMARY | 2024-03-21 08:07 | XMS_ITS | Encounter Summary ---
Author Name [place] Organization [place] Address [address] [place] [address] Care Team Providers Care Shaper And Presser Name Role Phone LEN MENDOZA Primary Care [...] PART B Sep 23, 2014 PART B [id number] [id number] [phone] 4 HARMONY MCCALL JR PATIENT MEDICARE (WNR) MEDICARE (M) PART A July 25, 2007 PART A [id number] [phone] HARMONY MCCALL JR PATIENT MEDICARE (WNR) MEDICARE (M) PART B July 25, 2007 PART B [id number] [phone] HARMONY MCCALL JR PATIENT MEDICARE (WNR) MEDICARE (M) PART A July 25, 2007 PART A [id number] [id number] [id number] HARMONY MCCALL JR PATIENT COUNT INCLUDES THE [facility] MEDICAL EXP[facility] (OPT/PROF ) [facility] * Jan 24, 2015 [id number] 18 CAROLE MCCALL SPOUSE Selected Encounter This section includes the information on record at [place] for the Encounter. Date/Time Encounter Type Encounter Description Reason Provider Source Jun 12, 2023 10:00 AM PT EDUCATION NOC GROUP NUTRITION/DIETETI CS-GROUP ICD-10-CM Z71.3 Dietary counseling and surveillance CURTIS GRACIA [place] Encounter Template Text not used by [place] Assessments - Encounter Diagnoses This section includes the primary and secondary diagnoses documented for the Encounter. Date/Time Primary/Secondary Diagnosis Diagnosis Name Provider Source Jun 12, 2023 03:57 PM PRIMARY Dietary counseling and surveillance CURTIS GRACIA [facility] Plan of Treatment: Future Appointments [...] 26, 2023 10:00 AM [facility] [place] [facility] Jun 28, 2023 11:00 AM AMBULATORY - NONE [place] Jul 05, 2023 11:00 AM AMBULATORY - NONE [place] Jul 19, 2023 11:00 AM AMBULATORY - NONE [place] Jul 23, 2023 02:30 PM AMBULATORY - MEDICINE [facility] [place] [facility] July 26, 2023 11:00 AM AMBULATORY - NONE [place] July 31, 2023 10:00 AM AMBULATORY - NONE [place] [facility] [place] [facility] August 02, 2023 11:00 AM AMBULATORY [...] - MEDICINE [facility] [place] [facility] Oct 04, 2023 11:00 AM AMBULATORY [...] VA-TOBACCO FORMER USER [facility] [place] [facility] Tobacco Use History This section includes a history of the smoking, or tobacco-related health factors, that were collected on or before the date of the Encounter. The data comes from the [place] facility where the Encounter took place. Date/Time Smoking Status/Tobacco Use Comment F acility Jan 26, 2023 01:30 PM VA-TOBACCO QUIT 15 YRS OR MORE [facility] [place] [facility] Jan 27, 2022 11:00 AM VA-TOBACCO FORMER USER [facility] [place] [facility] Jan 27, 2022 11:00 AM VA-TOBACCO QUIT 15 YRS OR MORE [facility] [place] [facility] Sep 17, 2020 09:00 AM VA-TOBACCO FORMER USER [facility] [place] [facility] Sep 17, 2020 09:00 AM VA-TOBACCO QUIT 15 YRS OR MORE [facility] [place] [facility] Jun 04, 2019 02:57 PM VA-TOBACCO NEVER USED [facility] [place] [facility] Mar 14, 2018 11:23 AM VA-TOBACCO FORMER USER [facility] [place] [facility] Mar 14, 2018 11:23 AM VA-TOBACCO QUIT 15 YRS OR MORE [facility] [place] [facility] Apr 04, 2017 12:30 PM QUIT TOBACCO USE > 7 YEARS AGO [facility] Apr 05, 2016 01:02 PM QUIT TOBACCO USE > 7 YEARS AGO quit in 1984 [facility] Encounter Notes: All associated [...] STATUS: COMPLETED Veterans participated in HTK via [facility] on: 06/12/23. The [place] was provided with information on [facility] and has given verbal consent to use group [facility] services for their healthcare. The copy of the Group Telehealth Agreement has been mailed to the [place]. The 's location/emergency contact number were confirmed. The Emergency Call Relay Center (E911) was available. The visit was locked for security and privacy. [place] identified with 2 identifiers: [x] Full Name [x] Address This class was taught by one Registered Dietitian with one co-host dietitian Dx: Z71.3 Time Spent: 60 minutes Participants: 13 Veterans, 2 collaterals Nutrition Education Topics: Intro to [facility] HTK, Nutrient content of recipe ingredients Cooking demonstration: Mini Meatloaf with Roasted Vegetables, Microwave Vegetable Omelet, Microwave Flax Seed [place] Veterans attended the 67th class of the [facility] Healthy Teaching Kitchen. Today we went over the Group Telehealth Agreement, how HTK via [facility] works, food safety, knife [...] Signed: 06/12/2023 15:58 CURTIS GRACIA CN[facility]L TRN [facility]
--- OUTSIDE RECORDS SUMMARY | 2024-03-21 08:07 | XMS_ITS ---
Author Name [facility] [place] Organization [place] Address [address] [place] [address] Care Team Providers Care Broadband Installer Name Role Phone LEN MENDOZA Primary Care [...] PART B Sep 23, 2014 PART B [id number] HARMONY MCCALL JR PATIENT MEDICARE (WNR) MEDICARE (M) PART A July 25, 2007 PART A [id number] [phone] HARMONY MCCALL JR PATIENT MEDICARE (WNR) MEDICARE (M) PART B July 25, 2007 PART B [id number] [phone] HARMONY MCCALL JR PATIENT MEDICARE (WNR) MEDICARE (M) PART A July 25, 2007 PART A [id number] HARMONY MCCALL JR PATIENT [facility] MEDICAL EXPENSE (OPT/PROF ) [facility] * Jan 24, 2015 [id number] CAROLE MCCALL SPOUSE Selected Encounter This section includes the information on record at [place] for the Encounter. Date/Time Encounter Type Encounter Description Reason Provider Source Jun 26, 2023 10:00 AM PT EDUCATION NOC GROUP NUTRITION/DIETETI CS-GROUP ICD-10-CM Z71.3 Dietary counseling and surveillance [facility]IS GRACIA [facility] Encounter Template Text not used by [place] Assessments - Encounter Diagnoses This section includes the primary and secondary diagnoses documented for the Encounter. Date/Time Primary/Secondary Diagnosis Diagnosis Name Provider Source Jun 26, 2023 12:43 PM PRIMARY Dietary counseling and surveillance CURTIS GRACIA [facility] Plan of Treatment: Future Appointments (+ 6 months) and Future Tests (+/- 45 days) The Plan of Treatment section includes future care activities for the patient from all [place] treatmentfacilities. This section includes future appointments and future orders which are active, pending or scheduled. Future Appointments This section includes appointments that were scheduled to occur 6 months from the date of the Encounter, up to a maximum of 20 appointments. The data comes from all [place] treatment facilities. Appointment Date/Time Appointment Type Appointme nt Facility Name Jun 28, 2023 11:00 AM AMBULATORY - NONE [place] Jul 05, 2023 11:00 AM AMBULATORY - NONE [place] Jul 19, 2023 11:00 AM AMBULATORY - NONE [place] Jul 23, 2023 02:30 PM AMBULATORY - MEDICINE [facility] July 26, 2023 11:00 AM AMBULATORY - NONE [place] July 31, 2023 10:00 AM AMBULATORY - NONE [facility] [...] - MEDICINE [facility] [place] [facility] Oct 04, 2023 11:00 AM AMBULATORY - NONE [place] Oct 11, 2023 11:00 AM AMBULATORY - NONE [place] Oct 18, 2023 11:00 AM AMBULATORY - NONE [place] Oct 23, 2023 09:00 AM AMBULATORY - NONE [facility] [place] [facility] Oct 25, 2023 11:00 AM AMBULATORY - NONE [place] Nov 01, 2023 11:00 AM AMBULATORY - NONE [place] Lab Results: +/- 30 days of the encounter This section includes the Chemistry and Hematology Lab Results on record with [place] for the patient. Radiology Reports and Pathology Reports are provided separately, in subsequent sections. Lab Results This section contains the Chemistry/Hematology Results that were resulted 30 days before or 30 daysafter the date of the Encounter. Date/Time Source Result Type Result - Unit Interpretation Reference Range Comment Jul 19, 2023 09:25 AM [facility] BASIC METABOLIC PANEL (non-fasting) Specimen Type: SERUM No comment entered. Ordering Provider: JANE MENDOZA Report Released Date/Time: Jul 12, 2023 10:12 AM Reporting [facility] [address] [address] Performing Lab: [address] [address] UREA NITROGEN 19 mg/dL 7-25 GLUCOSE 95 mg/dL 65-100 SODIUM 142 mmol/L 135-145 POTASSIUM 4.7 mmol/L 3.5-5.0 CHLORIDE 107 mmol/L 100-110 CO2 28 meq/L 20-30 CREATININE, Serum 0.90 mg/dL 0.50-1.40 eGFR(CKD-EPI 2020) 86 mL/min >60 Jul 19, 2023 09:25 AM [facility] LIPID PANEL, NON FASTING Specimen Type: SERUM No comment entered. Ordering Provider: JANE MENDOZA Report Released Date/Time: Jul 12, 2023 10:12 AM Reporting Lab: [address] [address] Performing Lab: [address] [place] [address] CHOLESTEROL 119 mg/dL TRIGLYCERIDE 48 mg/dL 0-150 LDL calculated 63 mg/dL 0-129 CHOL/HDL 2.6 HDL CHOLESTEROL 46 mg/dL 40-60 Jul 19, 2023 09:25 AM [facility] LIVER FUNCTION Specimen Type: SERUM No comment entered. Ordering Provider: JANE MENDOZA Report Released Date/Time: Jul 12, 2023 10:12 AM Reporting Lab: [facility] [address] [facility] [address] Performing Lab: [address] [address] PROTEIN,TOTAL 6.7 g/dL 6.0-8.3 ALBUMIN 3.8 g/dL 3.5-5.0 ALKALINE PHOSPHATASE 55 U/L 40-150 AST 26 U/L 5-34 ALT 26 U/L BILIRUBIN, TOTAL 0.6 mg/dL 0.2-1.2 Jul 19, 2023 09:25 AM [facility] TSH Specimen Type: SERUM No comment entered. Ordering Provider: JANE MENDOZA Report Released Date/Time: Jul 12, 2023 10:12 AM Reporting Lab: [address] [address] Performing Lab: [address] [address] TSH 0.67 u[IU]/mL 0.35-5.00 Jul 19, 2023 09:25 AM [facility] CBC Specimen Type: BLOOD No comment entered. Ordering Provider: JANE MENDOZA Report Released Date/Time: Jul 12, 2023 10:12 AM Reporting Lab: [address] [address] Performing Lab: [address] [address] WBC 7.33 10*3/uL 4.50-11.00 RBC 4.94 10*6/uL [...] and tobacco- related health factors from the [place] facility where the Encounter took place. Current Smoking Status This section includes the most current smoking, or tobacco-related health factor, from the [place] facility where the Encounter took place. Date/Time Current Smoking Status Comment Facil ity Jan 26, 2023 01:30 PM VA-TOBACCO QUIT 15 YRS OR MORE [place] [facility] [place] [facility] Tobacco Use History This section includes a history of the smoking, or tobacco-related health factors, that were collected on or before the date of the Encounter. The data comes from the [place] facility where the Encounter took place. Date/Time Smoking Status/Tobacco Use Comment F acility Jan 26, 2023 01:30 PM VA-TOBACCO QUIT 15 YRS OR MORE [facility] [place] [facility] Jan 27, 2022 11:00 AM VA-TOBACCO FORMER USER [facility] [place] [facility] Jan 27, 2022 11:00 AM VA-TOBACCO QUIT 15 YRS OR MORE [facility] [place] [facility] Sep 17, 2020 09:00 AM VA-TOBACCO FORMER USER [facility] [place] [facility] Sep 17, 2020 09:00 AM VA-TOBACCO QUIT 15 YRS OR MORE [facility] [place] [facility] Jun 04, 2019 02:57 PM VA-TOBACCO NEVER USED [facility] [place] [facility] Mar 14, 2018 11:23 AM VA-TOBACCO FORMER USER [facility] [place] [facility] Mar 14, 2018 11:23 AM VA-TOBACCO QUIT 15 YRS OR MORE [facility] [place] [facility] Apr 04, 2017 12:30 PM QUIT TOBACCO USE > 7 YEARS AGO [facility] [place] [facility] Apr 05, 2016 01:02 PM QUIT TOBACCO USE > 7 YEARS AGO quit in 1984 [facility] Encounter Notes: All associated encounter notes [...] 06/26/23. The was provided with information on [facility] and has given verbal consent to use group [facility] services for their healthcare. The copy of the Group Telehealth Agreement has been mailed to the [place]. The [place]'s location/emergency contact number were confirmed. The Emergency Call Relay Center (E911) was available. The visit was locked for security and privacy. identified with 2 identifiers: [x] Full Name [x] Address This class was taught by one Registered Dietitian with one co-host dietitian Dx: Z71.3 Time Spent: 60 minutes Participants: 13 Veterans, 2 collaterals Nutrition Education Topics: Intro to C HTK, Nutrient content of recipe ingredients Cooking demonstration: Crispy Garlic-Johanny Tofu, Mediterranean Quinoa Salad Veterans attended the 68th class of the [facility] Healthy Teaching Kitchen. Today we went over [...] Staff Dietitian Signed: 06/26/2023 12:45 CURTIS GRACIA [facility]
--- OUTSIDE RECORDS SUMMARY | 2024-03-21 08:07 | XMS_ITS | Encounter Summary ---
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 Name Role Phone LEN MENDOZA Primary [...] PART B Sep 23, 2014 PART B [id number] [phone] HARMONY CMCALL JR PATIENT MEDICARE (WNR) MEDICARE (M) PART A July 25, 2007 PART A [id number] HARMONY MCCALL JR PATIENT MEDICARE (WNR) MEDICARE (M) PART B July 25, 2007 PART B [id number] [phone] HARMONY MCCALL JR PATIENT MEDICARE (WNR) MEDICARE (M) PART A July 25, 2007 PART A [id number] HARMONY MCCALL JR PATIENT [facility] MEDICAL EXPENSE (OPT/PROF ) [facility] * Jan 24, 2015 [id number] [phone] CAROLE MCCALL SPOUSE Selected Encounter This section includes the information on record at [place] for the Encounter. Date/Time Encounter Type Encounter Description Reason Provider Source August 02, 2023 11:00 AM GROUP BEHAVE COUNS 2-10 WEIGHT MGMT & MOVE! PROG - GRP ICD-10-CM E66.3 Overweight NIAMIGUEL IHErin Encounter Template Text not used by [place] Assessments - Encounter Diagnoses This section includes the primary and secondary diagnoses documented for the Encounter. Date/Time Primary/Secondary Diagnosis Diagnosis Name Provider Source August 03, 2023 09:38 AM PRIMARY Overweight SANTIAGO KRAMER August 03, 2023 09:38 AM SECONDARY Body mass index [BMI] 29.0-29.9, [...] Appointment Type Appointme nt Facility Name August 09, 2023 11:00 AM AMBULATORY - [...] 2023 11:30 AM [facility] Oct 04, 2023 11:00 AM AMBULATORY - NONE [place] Oct 11, 2023 11:00 AM AMBULATORY - NONE [place] Oct 18, 2023 11:00 AM AMBULATORY - NONE [place] Oct 23, 2023 09:00 AM [facility] Oct 25, 2023 11:00 AM [...] 03, 2023 02:00 PM [facility] Dec 06, 2023 11:00 AM AMBULATORY - NONE [place] Dec 11, 2023 10:00 AM [facility] Lab Results: +/- 30 days of the [...] Range Comment Jul 19, 2023 09:25 AM [facility] BASIC METABOLIC PANEL (non-fasting) Specimen Type: SERUM No comment entered. Ordering Provider: JANE MENDOZA Report Released Date/Time: Jul 12, 2023 10:12 AM Reporting Lab: [address] [address] Performing Lab: [address] [address] UREA NITROGEN 19 mg/dL 7-25 GLUCOSE 95 mg/dL 65-100 SODIUM 142 mmol/L 135-145 POTASSIUM 4.7 mmol/L 3.5-5.0 CHLORIDE 107 mmol/L 100-110 CO2 28 meq/L 20-30 CREATININE, Serum 0.90 mg/dL 0.50-1.40 eGFR(CKD-EPI 2020) 86 mL/min >60 Jul 19, 2023 09:25 AM [facility] LIPID PANEL, NON FASTING Specimen Type: SERUM No comment entered. Ordering Provider: JANE MENDOZA Report Released Date/Time: Jul 12, 2023 10:12 AM Reporting Lab: [address] [address] Performing Lab: [facility] [place] [facility] [address] [facility] [address] CHOLESTEROL 119 mg/dL TRIGLYCERIDE 48 mg/dL 0-150 LDL calculated 63 mg/dL 0-129 CHOL/HDL 2.6 HDL CHOLESTEROL 46 mg/dL 40-60 Jul 19, 2023 09:25 AM [facility] LIVER FUNCTION Specimen Type: SERUM No comment entered. Ordering Provider: JANE MENDOZA Report Released Date/Time: Jul 12, 2023 10:12 AM Reporting Lab: [facility] [address] [facility] [address] Performing Lab: [facility] [address] [facility] [address] PROTEIN,TOTAL 6.7 g/dL 6.0-8.3 ALBUMIN 3.8 g/dL 3.5-5.0 ALKALINE PHOSPHATASE 55 U/L 40-150 AST 26 U/L 5-34 ALT 26 U/L BILIRUBIN, TOTAL 0.6 mg/dL 0.2-1.2 Jul 19, 2023 09:25 AM [facility] TSH Specimen Type: SERUM No comment entered. Ordering Provider: JANE MENDOZA Report Released Date/Time: Jul 12, 2023 10:12 AM Reporting Lab: [facility] [address] [facility] [address] Performing Lab: [facility] [address] [address] TSH 0.67 u[IU]/mL 0.35-5.00 Jul 19, 2023 09:25 AM [facility] CBC Specimen Type: BLOOD No comment entered. Ordering Provider: JANE MENDOZA Report Released Date/Time: Jul 12, 2023 10:12 AM Reporting Lab: [facility] [address] [facility] [address] Performing Lab: [facility] [address] [address] WBC 7.33 10*3/uL 4.50-11.00 RBC 4.94 10*6/uL [...] Height Weight Body Mass Index Source August 02, 2023 11:00 AM 207.7 32 [place] Encounter Notes: All associated encounter notes This section contains the clinical notes associated to the Encounter. Date/Time Encounter Note(s) Provider Source August 02, 2023 11:00 AM MOVE NOTE: LOCAL TITLE: WEIGHT MANAGEMENT/MOVE! OUTPATIENT GROUP NOTE STANDARD TITLE: MOVE NOTE DATE OF NOTE: AUGUST 02, 2023@11:00 ENTRY DATE: AUGUST 03, 2023@09:32:43 AUTHOR: SANTIAGO KRAMER COSIGNER: URGENCY: STATUS: COMPLETED participated in MOVE! Group Counseling via [facility] on August 02, 2023. The [place] was provided with information on [facility] and has given verbal consent to use group VV services for their healthcare. The copy of the Group Telehealth Agreement has been mailed to the . The Veterans location/emergency contact number were confirmed. The Emergency Call Relay Center (E911) was available. The visit was locked for security and privacy. [place] identified with 2 identifiers: [ ] Full Name [ ] Address Veterans attended the [facility] MOVE! group session on this date. MOVE! is a program designed to provide education about weight management skills to overweight and obese Veterans. Group members combined to lose 4.1 pounds since their last attended group. Group members initially discussed their past week's successes and areas for improvement. Facilitators presented on Dietary fats, including choleseterol and fatty acids. Main topic was on omega 3 and omega 6 fatty acids. Veterans asked questions and were encouraged to limit overal fat intake. Increase omega 3 fatty acids from fish and other sources. [place] mentioned wanted a discussion on plant-based diet including pros and cons. Overall veterans were engaged with the group today. The next [facility] MOVE! group meeting will be held on July @ 11:00am. [place]'s reported weight was 207.7 lbs. and lost 0.4 pounds since last group attended. Dx: Overweight E66.3 z 68.29 The session lasted for 1 hour in duration. /johanny/ SANTIAGO KRAMER STAFF DIETITIAN Signed: 08/03/2023 09:39 Receipt Acknowledged By: 08/03/2023 11:58 /johanny/ GORDON PATHAK, Ph.D. CLINICAL PSYCHOLOGIST SANTIAGO KRAMERFIELD
--- OUTSIDE RECORDS SUMMARY | 2024-03-21 08:07 | XMS_ITS | Encounter Summary ---
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 Name Role Phone LEN MENDOZA Primary [...] PART B Sep 23, 2014 PART B [id number] HARMONY MCCALL JR PATIENT MEDICARE (WNR) MEDICARE (M) PART A July 25, 2007 PART A [id number] [phone] HARMONY MCCALL JR PATIENT MEDICARE (WNR) MEDICARE (M) PART B July 25, 2007 PART B [id number] [phone] HARMONY MCCALL JR PATIENT MEDICARE (WNR) MEDICARE (M) PART A July 25, 2007 PART A [id number] HARMONY MCCALL JR PATIENT [facility] MEDICAL EXPENSE (OPT/PROF ) [facility] * Jan 24, 2015 [id number] CAROLE MCCALL SPOUSE Selected Encounter This section includes the information on record at [place] for the Encounter. Date/Time Encounter Type Encounter Description Reason Provider Source August 23, 2023 11:00 AM WEIGHT MGMT CLASS WEIGHT MGMT & MOVE! PROG - GRP ICD-10-CM Z68.29 Body mass index [BMI] 29.0-29.9, adult GORDON PATHAK [facility] Encounter Template Text not used by VA [...] 25, 2023 11:30 AM AMBULATORY - [facility]ICINE [facility] Oct 04, 2023 11:00 AM AMBULATORY - NONE [place] Oct 11, 2023 11:00 AM AMBULATORY - NONE [place] Oct 18, 2023 11:00 AM AMBULATORY - NONE [place] Oct 23, 2023 09:00 AM AMBULATORY - NONE [facility] [place] [place] [facility] Oct 25, 2023 11:00 AM AMBULATORY - [...] - NONE [facility] [place] [place] [facility] Dec 06, 2023 11:00 AM AMBULATORY - NONE [place] Dec 11, 2023 10:00 AM AMBULATORY - NONE [facility] [place] [place] [facility] Dec 11, 2023 01:00 PM AMBULATORY - MEDICINE [facility] [place] [facility] Dec 13, 2023 11:00 AM AMBULATORY - [...] AUTHOR: GORDON PATHAK COSIGNER: URGENCY: STATUS: COMPLETED [place] participated in MOVE! Group Counseling via [facility] on August 23, 2023. The was [...] Name [ ] Address Veterans attended the [facility] MOVE! group session on this date. [...] goals for the next week. The next [facility] MOVE! group meeting will be held on August @ 11:00am. [place]'s reported weight was 208.5 lbs. and gained 0.2 pounds since last group attended. Dx: Overweight Obesity E66.3 BMI 29.0-29.9 The session lasted for 1 hour in duration. /johanny/ GORDON PATHAK, Ph.D. CLINICAL PSYCHOLOGIST Signed: 08/24/2023 17:51 Receipt Acknowledged By: 08/28/2023 10:40 /johanny/ SANTIAGO KRAMER STAFF DIETITIAN GORDON PATHAK
--- OUTSIDE RECORDS SUMMARY | 2024-03-21 08:07 | XMS_ITS | Encounter Summary ---
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 Name Role Phone LEN MENDOZA Primary [...] PART B Sep 23, 2014 PART B [id number] HARMONY MCCALL JR PATIENT MEDICARE (WNR) MEDICARE (M) PART A July 25, 2007 PART A [id number] [phone] HARMONY MCCALL JR PATIENT MEDICARE (WNR) MEDICARE (M) PART B July 25, 2007 PART B [id number] HARMONY MCCALL JR PATIENT MEDICARE (WNR) MEDICARE (M) PART A July 25, 2007 PART A [id number] HARMONY MCCALL JR [facility] * Jan 24, 2015 [id number] CAROLE MCCALL SPOUSE Selected Encounter This section includes the information on record at [place] for the Encounter. Date/Time Encounter Type Encounter Description Reason Pro vider Source Jul 24, 2023 11:39 AM Outpatient Encounter ADMIN PAT ACTIVTIES (MASNONCT) IHE Encounter Template Text not used by [place] Plan of Treatment: Future Appointments (+ 6 [...] 31, 2023 10:00 AM AMBULATORY - NONE [facility] August 02, 2023 11:00 AM AMBULATORY [...] 25, 2023 11:30 AM [facility] Oct 04, 2023 11:00 AM AMBULATORY - NONE [place] Oct 11, 2023 11:00 AM AMBULATORY - NONE [place] Oct 18, 2023 11:00 AM AMBULATORY - NONE [place] Oct 23, 2023 09:00 AM [facility] - [facility] Oct 25, 2023 11:00 AM [...] and Hematology Lab Results on record with [place] for the patient. Radiology Reports and Pathology Reports are provided separately, in subsequent sections. Lab Results This section contains the Chemistry/Hematology Results that were resulted 30 days before or 30 daysafter the date of the Encounter. Date/Time Source Result Type Result - Unit Interpretation Reference Range Comment Jul 19, 2023 09:25 AM [facility] TSH Specimen Type: SERUM No comment entered. Ordering Provider: JANE MENDOZA Report Released Date/Time: Jul 12, 2023 10:12 AM Reporting Lab: [facility] [place] [facility] [address] [facility] [address] Performing Lab: [facility]USE[address] [address] TSH 0.67 u[IU]/mL 0.35-5.00 Jul 19, 2023 09:25 AM [facility] LIPID PANEL, NON FASTING Specimen Type: SERUM No comment entered. Ordering Provider: JANE MENDOZA Report Released Date/Time: Jul 12, 2023 10:12 AM Reporting Lab: [facility] [place] [facility] [address] [facility] [address] Performing Lab: [facility] [address] [facility] [address] CHOLESTEROL 119 mg/dL TRIGLYCERIDE 48 mg/dL 0-150 LDL calculated 63 mg/dL 0-129 CHOL/HDL 2.6 HDL CHOLESTEROL 46 mg/dL 40-60 Jul 19, 2023 09:25 AM [facility] LIVER FUNCTION Specimen Type: SERUM No comment entered. Ordering Provider: JANE MENDOZA Report Released Date/Time: Jul 12, 2023 10:12 AM Reporting Lab: [facility] [address] [address] Performing Lab: [facility] [address] [address] PROTEIN,TOTAL 6.7 g/dL 6.0-8.3 ALBUMIN 3.8 g/dL 3.5-5.0 ALKALINE PHOSPHATASE 55 U/L 40-150 AST 26 U/L 5-34 ALT 26 U/L BILIRUBIN, TOTAL 0.6 mg/dL 0.2-1.2 Jul 19, 2023 09:25 AM [facility] BASIC METABOLIC PANEL (non-fasting) Specimen Type: SERUM No comment entered. Ordering Provider: JANE MENDOZA Report Released Date/Time: Jul 12, 2023 10:12 AM Reporting Lab: [address] [address] Performing Lab: [address] [address] UREA NITROGEN 19 mg/dL 7-25 GLUCOSE 95 mg/dL 65-100 SODIUM 142 mmol/L 135-145 POTASSIUM 4.7 mmol/L 3.5-5.0 CHLORIDE 107 mmol/L 100-110 CO2 28 meq/L 20-30 CREATININE, Serum 0.90 mg/dL 0.50-1.40 eGFR(CKD-EPI 2020) 86 mL/min >60 Jul 19, 2023 09:25 AM [facility] CBC Specimen Type: BLOOD No comment entered. Ordering Provider: JANE MENDOZA Report Released Date/Time: Jul 12, 2023 10:12 AM Reporting Lab: [address] [address] Performing Lab: [address] [address] WBC 7.33 10*3/uL 4.50-11.00 RBC 4.94 10*6/uL [...] 26, 2023 01:30 PM VA-TOBACCO FORMER USER [place] [facility] [place] [facility] Tobacco Use History This section includes a history of the smoking, or tobacco-related health factors, that were collected on or before the date of the Encounter. The data comes from the [place] facility where the Encounter took place. Date/Time Smoking Status/Tobacco Use Comment F acility Jan 26, 2023 01:30 PM VA-TOBACCO QUIT 15 YRS OR MORE [place] [facility] [place] [facility] Jan 27, 2022 11:00 AM VA-TOBACCO FORMER USER [place] [facility] [place] [facility] Jan 27, 2022 11:00 AM VA-TOBACCO QUIT 15 YRS OR MORE [place] [facility] [place] [facility] Sep 17, 2020 09:00 AM VA-TOBACCO FORMER USER [place] [facility] [place] [facility] Sep 17, 2020 09:00 AM VA-TOBACCO QUIT 15 YRS OR MORE [place] [facility] [place] [facility] Jun 04, 2019 02:57 PM VA-TOBACCO NEVER USED CO [facility] [place] [facility] Mar 14, 2018 11:23 AM VA-TOBACCO FORMER USER CO [facility] [place] [facility] Mar 14, 2018 11:23 AM VA-TOBACCO QUIT 15 YRS OR MORE [place] [facility] [place] [facility] Apr 04, 2017 12:30 PM QUIT TOBACCO USE > 7 YEARS AGO CO [facility] [place] [facility] Apr 05, 2016 01:02 PM QUIT TOBACCO USE > 7 YEARS AGO quit in 1984 [place] [facility] [place] [facility] Encounter Notes: All associated [...] Patient Name: HARMONY MCCALL Patient Primary Phone: [phone] Patient Primary Address: [address] [place] [address] Patient : 1940 Patient Age: 82 Caller/Recipient Relation to Patient: Self Administrative Administrative Note Reason: Paperwork Request /johanny/ ARTURO BHATT VISFaina 1 CCC AMSA Signed: 07/24/2023 11:39 Receipt Acknowledged By: 07/30/2023 11:25 /johanny/ Arron Olmedo, Health Outside Sales Inspector CIGARETTE SELLER,PRIMARY CARE 07/24/2023 13:25 /johanny/ Terri GARCIA RN CNL Primary Care RN 07/24/2023 ADDENDUM STATUS: COMPLETED Vet needs documentation of influenza vaccine this year. RN printed documentation [facility]. /johanny/ Terri Finn MSN RN CNL Primary Care RN Signed: 07/24/2023 13:25 ARTURO BHATT [facility]LAWR[facility]
--- OUTSIDE RECORDS SUMMARY | 2024-03-21 08:07 | XMS_ITS | Encounter Summary ---
Author Name Department [facility] [place] Organization [place] Address [address] [place] [address] Care Team Providers Care Sports Cartoonist Name Role Phone LEN MENDOZA Primary Care [...] PART B Sep 23, 2014 PART B [id number] HARMONY MCCALL JR PATIENT MEDICARE (WNR) MEDICARE (M) PART A July 25, 2007 PART A [id number] HARMONY MCCALL JR PATIENT MEDICARE (WNR) MEDICARE (M) PART B July 25, 2007 PART B [id number] [phone] HARMONY MCCALL JR PATIENT MEDICARE (WNR) MEDICARE (M) PART A July 25, 2007 PART A [id number] HARMONY MCCALL JR PATIENT [facility] MEDICAL EXPENSE (OPT/PROF ) [facility] IN[facility] * Jan 24, 2015 [id number] CAROLE MCCALL SPOUSE Selected Encounter This section includes the information on record at [place] for the Encounter. Date/Time Encounter Type Encounter Description Reason Provider Source Jun 21, 2023 11:00 AM WEIGHT MGMT CLASS WEIGHT MGMT & MOVE! PROG - GRP ICD-10-CM Z68.29 Body mass index [BMI] 29.0-29.9, adult GORDON PATHAK [facility] Encounter Template Text not used by [...] [facility] Jun 28, 2023 11:00 AM AMBULATORY - NONE [place] Jul 05, 2023 11:00 AM AMBULATORY - NONE [place] Jul 19, 2023 11:00 AM AMBULATORY - NONE [place] Jul 23, 2023 02:30 PM [facility] July 26, 2023 11:00 AM AMBULATORY - NONE [place] July 31, 2023 10:00 AM [facility] - NONE [facility] August 02, 2023 11:00 AM AMBULATORY [...] [place] [facility] Oct 04, 2023 11:00 AM AMBULATORY - NONE [place] Oct 11, 2023 11:00 AM AMBULATORY - NONE [place] Oct 18, 2023 11:00 AM AMBULATORY - NONE [place] Oct 23, 2023 09:00 AM AMBULATORY - NONE [place] [facility] [place] [facility] Oct 25, 2023 11:00 AM AMBULATORY - NONE [place] Lab Results: +/- 30 days of the encounter This section includes the Chemistry and Hematology Lab Results on record with [place] for the patient. Radiology Reports and Pathology Reports are provided separately, in subsequent sections. Lab Results This section contains the Chemistry/Hematology Results that were resulted 30 days before or 30 daysafter the date of the Encounter. Date/Time Source Result Type Result - Unit Interpretation Reference Range Comment Jul 19, 2023 09:25 AM [facility] TSH Specimen Type: SERUM No comment entered. Ordering Provider: JANE MENDOZA Report Released Date/Time: Jul 12, 2023 10:12 AM Reporting Lab: [facility]ITALRD.[facility]N [facility] [address] [address] Performing Lab: [facility]ITALRCREN[facility]W [facility]OSPITALTRN [facility] [address] [address] TSH 0.67 u[IU]/mL 0.35-5.00 Jul 19, 2023 09:25 AM [facility]N [facility] LIPID PANEL, NON FASTING Specimen Type: SERUM No comment entered. Ordering Provider: JANE MENDOZA Report Released Date/Time: Jul 12, 2023 10:12 AM Reporting Lab: [facility]ITALRD.[facility]OSPITALN [facility]ENTERUSE[facility] [address] [address] Performing Lab: [facility] [address] [address] CHOLESTEROL 119 mg/dL TRIGLYCERIDE 48 mg/dL 0-150 LDL calculated 63 mg/dL 0-129 CHOL/HDL 2.6 HDL CHOLESTEROL 46 mg/dL 40-60 Jul 19, 2023 09:25 AM [facility] LIVER FUNCTION Specimen Type: SERUM No comment entered. Ordering Provider: JANE MENDOZA Report Released Date/Time: Jul 12, 2023 10:12 AM Reporting Lab: [facility] [address] [address] Performing Lab: [facility] [address] [address] PROTEIN,TOTAL 6.7 g/dL 6.0-8.3 ALBUMIN 3.8 g/dL 3.5-5.0 ALKALINE PHOSPHATASE 55 U/L 40-150 AST 26 U/L 5-34 ALT 26 U/L BILIRUBIN, TOTAL 0.6 mg/dL 0.2-1.2 Jul 19, 2023 09:25 AM [facility] BASIC METABOLIC PANEL (non-fasting) Specimen Type: SERUM No comment entered. Ordering Provider: JANE MENDOZA Report Released Date/Time: Jul 12, 2023 10:12 AM Reporting Lab: [facility] [address] [address] Performing Lab: [facility] [address] [address] UREA NITROGEN 19 mg/dL 7-25 GLUCOSE 95 mg/dL 65-100 SODIUM 142 mmol/L 135-145 POTASSIUM 4.7 mmol/L 3.5-5.0 CHLORIDE 107 mmol/L 100-110 CO2 28 meq/L 20-30 CREATININE, Serum 0.90 mg/dL 0.50-1.40 eGFR(CKD-EPI 2020) 86 mL/min >60 Jul 19, 2023 09:25 AM [facility] CBC Specimen Type: BLOOD No comment entered. Ordering Provider: JANE MENDOZA Report Released Date/Time: Jul 12, 2023 10:12 AM Reporting Lab: [facility] [address] [address] Performing Lab: [address] [address] WBC 7.33 10*3/uL 4.50-11.00 RBC 4.94 10*6/uL [...] via VVC on June 21, 2023. The [place] was provided with information on VV and [...] [ ] Address Veterans attended the [facility] MOVE! group session on this [...] for the next week. The next [facility] MOVE! group meeting will be [...]
--- OUTSIDE RECORDS SUMMARY | 2024-03-21 08:07 | XMS_ITS | Encounter Summary ---
Author Name Department [place] Organization [place] Address [address] [place] [address] Care Team Providers Care Genetics Teacher Name Role Phone LEN MENDOZA Primary [...] PART B Sep 23, 2014 PART B [id number] [id number] [phone] HARMONY MCCALL JR PATIENT MEDICARE (WNR) MEDICARE (M) PART A July 25, 2007 PART A [id number] HARMONY MCCALL JR PATIENT MEDICARE (WNR) MEDICARE (M) PART B July 25, 2007 PART B [id number] [id number] HARMONY MCCALL JR PATIENT MEDICARE (WNR) MEDICARE (M) PART A July 25, 2007 PART A [id number] [id number] HARMONY MCCALL JR PATIENT [facility] MEDICAL EXPENSE (OPT/PROF ) [facility] * Jan 24, 2015 [id number] CAROLE MCCALL SPOUSE Selected Encounter This section includes the information on record at [place] for the Encounter. Date/Time Encounter Type Encounter Description Reason Provider Source August 22, 2023 08:00 AM EXERCISE CLASS HEALTH/WELLBEING [facility] ICD-10-CM Z72.3 Lack of physical exercise DAMON ONEILL IHE Encounter Template Text not used by [place] Assessments - Encounter Diagnoses This section includes the primary and secondary diagnoses documented for the Encounter. Date/Time Primary/Secondary Diagnosis Diagnosis Name Provider Source August 22, 2023 11:02 AM PRIMARY Lack of physical exercise [facility]ON ONEILL [facility] Plan of Treatment: Future Appointments (+ [...] 25, 2023 11:30 AM AMBULATORY - MEDICINE [facility] NTR [facility] [place] [facility] Oct 04, 2023 11:00 AM AMBULATORY - NONE [place] Oct 11, 2023 11:00 AM AMBULATORY - NONE [place] Oct 18, 2023 11:00 AM AMBULATORY - NONE [place] Oct 23, 2023 09:00 AM AMBULATORY - NONE [place] [facility] [place] [facility] [place] [facility] Dec 06, 2023 11:00 AM AMBULATORY - NONE [place] Dec 11, 2023 10:00 AM AMBULATORY - NONE [place] [facility] [place] [facility] Dec 11, 2023 01:00 PM AMBULATORY - MEDICINE [place] [facility] [place] [facility] Social History: Smoking Status (Most current) and Tobacco Use (All prior to encounter date) This section includes the most current, and the historical, smoking and tobacco- related health factors from the [place] facility where the Encounter took place. Current Smoking Status This section includes the most current smoking, or tobacco-related health factor, from the [place] facility where the Encounter took place. Date/Time Current Smoking Status Comment Facil ity Jan 26, 2023 01:30 PM VA-TOBACCO FORMER USER [place] [facility] [place] [facility] Tobacco Use History This section includes a history of the smoking, or tobacco-related health factors, that were collected on or before the date of the Encounter. The data comes from the [place] facility where the Encounter took place. Date/Time Smoking Status/Tobacco Use Comment F acility Jan 26, 2023 01:30 PM VA-TOBACCO QUIT 15 YRS OR MORE [place] [facility] [place] [facility] Jan 27, 2022 11:00 AM VA-TOBACCO FORMER USER [place] [facility] [place] [facility] Jan 27, 2022 11:00 AM VA-TOBACCO QUIT 15 YRS OR MORE [place] [facility] [place] [facility] Sep 17, 2020 09:00 AM VA-TOBACCO FORMER USER [facility] [place] [facility] Sep 17, 2020 09:00 AM VA-TOBACCO QUIT 15 YRS OR MORE [facility] [place] [facility] Jun 04, 2019 02:57 PM VA-TOBACCO NEVER USED [place] [facility] [place] [facility] Mar 14, 2018 11:23 AM VA-TOBACCO FORMER USER [facility] [place] [facility] Mar 14, 2018 11:23 AM VA-TOBACCO QUIT 15 YRS OR MORE [facility] [place] [facility] Apr 04, 2017 12:30 PM QUIT TOBACCO USE > 7 YEARS AGO [facility] Apr 05, 2016 01:02 [...] been made verbally aware of Telehealth Group [place] practices. [place]'s Location: address on record unless specified below. Emergency Contact: on record unless specified below. [place] participated remotely in the [employer] exercise program today through [place] Virtual [employer]quet Steward. Activities were focused on progression of their individual exercise prescription (cardiorespiratory fitness training, strength training, etc.) and group-based exercise sessions to include, but not limited to: flexibility training, balance training & functional circuit training. Exercise participation was supervised remotely by [facility] staff and any questions/concerns were addressed with the patient. Modifications were made to programming as appropriate to suit Veterans individual needs, preferences, and whole health concerns. /johanny/ VIOLETTA FINK LICENSE LABORATORY CLERK Signed: 08/22/2023 11:07 DOUG ONEILL [facility]
--- OUTSIDE RECORDS SUMMARY | 2024-03-21 08:07 | XMS_ITS | Encounter Summary ---
Author Name [facility] [place] Address [address] [place] [address] Care Team Providers Care Flight Paramedic Name Role Phone LEN MENDOZA Primary Care [...] PART B Sep 23, 2014 PART B [id number] [id number] [phone] [id number] HARMONY MCCALL JR PATIENT MEDICARE (WNR) MEDICARE (M) PART A July 25, 2007 PART A [id number] HARMONY MCCALL JR PATIENT MEDICARE (WNR) MEDICARE (M) PART B July 25, 2007 PART B [id number] [phone] HARMONY MCCALL JR PATIENT MEDICARE (WNR) MEDICARE (M) PART A July 25, 2007 PART A [id number] HARMONY MCCALL JR PATIENT [facility] MEDICAL EXPENSE (OPT/PROF ) [facility] * Jan 24, 2015 [id number] [phone] CAROLE MCCALL SPOUSE Selected Encounter This section includes the information on record at [place] for the Encounter. Date/Time Encounter Type Encounter Description Reason Provider Source Jun 07, 2023 11:00 AM GROUP BEHAVE COUNS 2-10 WEIGHT MGMT & MOVE! PROG - GRP ICD-10-CM E66.09 Other obesity due to excess calories MIGUEL KRAMER Erin Encounter Template Text not used by [place] Assessments - Encounter Diagnoses This section includes the primary and secondary diagnoses documented for the Encounter. Date/Time Primary/Secondary Diagnosis Diagnosis Name Provider Source Jun 08, 2023 08:56 AM PRIMARY Other obesity due to excess [...] Appointment Type Appointme nt Facility Name Jun 12, 2023 10:00 AM AMBULATORY - NONE [place] [facility] [place] [facility] Jun 14, 2023 11:00 AM AMBULATORY - NONE [place] Jun 21, 2023 11:00 AM AMBULATORY - NONE [place] Jun 26, 2023 10:00 AM AMBULATORY - NONE [place] [facility] [place] [facility] Jun 28, 2023 11:00 AM AMBULATORY - NONE [place] Jul 05, 2023 11:00 AM AMBULATORY - NONE [place] Jul 19, 2023 11:00 AM AMBULATORY - NONE [place] Jul 23, 2023 02:30 PM AMBULATORY - MEDICINE [place] [facility] [place] [facility] July 26, 2023 11:00 AM AMBULATORY - NONE [place] July 31, 2023 10:00 AM AMBULATORY - NONE [place] [facility] [place] [facility] August 02, 2023 11:00 [...] 25, 2023 11:30 AM AMBULATORY - MEDICINE [place] C NTRL [facility] [place] [facility] Oct 04, 2023 11:00 AM AMBULATORY - NONE [place] Oct 11, 2023 11:00 AM AMBULATORY - NONE [place] Vital Signs: All taken on the encounter date This section contains inpatient and outpatient Vital Signs collected on the date of the Encounter. Date/Time Temperature Pulse Blood Pressure Respiratory Rate SP02 Pain Height Weight Body Mass Index Source Jun 07, 2023 01:13 PM 202.6 31 [place] Encounter Notes: All associated encounter notes This section contains the clinical notes associated to the Encounter. Date/Time Encounter Note(s) Provider Source Jun 07, 2023 11:41 AM MOVE NOTE: LOCAL TITLE: WEIGHT MANAGEMENT/MOVE! OUTPATIENT GROUP NOTE STANDARD TITLE: MOVE NOTE DATE OF NOTE: JUN 07, 2023@11:41 ENTRY DATE: JUN 08, 2023@08:41:59 AUTHOR: SANTIAGO KRAMER COSIGNER: URGENCY: STATUS: COMPLETED [place] participated in MOVE! Group Counseling via [facility] on May. The [place] was provided with information on [facility] and has given verbal consent to use group VV services for their healthcare. The copy of the Group Telehealth Agreement has been mailed to the [place]. The Veterans location/emergency contact number were confirmed. The Emergency Call Relay Center (E911) was available. The visit was locked for security and privacy. identified with 2 identifiers: [ ] Full Name [ ] Address Veterans attended the [facility] MOVE! group session on this date. MOVE! is a program designed to provide education about weight management skills to overweight and obese Veterans. Group members combined to gain 3.7 pounds since their last attended group. Group members began today's session talking about their success over past week. Dietitic administration internship presented on combing foods to improve nutrition absorption to the group. Group memberes asked questions. Group member asked everyone else to reassess their goals for the summer.They shared their weight loss experience and success with not only losing weight, but keeping it off. The next [facility] MOVE! group meeting will be held on 2023 @ 11:00am. [place]'s reported weight was 202.6 lbs. and lost 0.9 pounds since last group attended. Dx: e66.3 z68.29 The session lasted for 60 minutes in duration. /johanny/ SANTIAGO KRAMER STAFF DIETITIAN Signed: 06/08/2023 08:56 Receipt Acknowledged By: 06/13/2023 17:34 /johanny/ GORDON PATHAK, Ph.D. CLINICAL PSYCHOLOGIST SANTIAGO KRAMERFIELD
--- OUTSIDE RECORDS SUMMARY | 2024-03-21 08:07 | XMS_ITS | Encounter Summary ---
Author Name [facility] [place] Address [address] [place] [address] Care Team Providers Care Concrete Technician Name Role Phone LEN MENDOZA Primary [...] Policy Ybarra's Name Patient's Relationship to Policy Yabrra MEDICARE (WNR) MEDICARE (M) PART B Sep 23, 2014 PART B [id number] HARMONY MCCALL JR PATIENT MEDICARE (WNR) MEDICARE (M) PART A July 25, 2007 PART A [id number] HARMONY MCCALL JR PATIENT MEDICARE (WNR) MEDICARE (M) PART B July 25, 2007 PART B [id number] HARMONY MCCALL JR PATIENT MEDICARE (WNR) MEDICARE (M) PART A July 25, 2007 PART A [id number] [phone] [id number] HRAMONY MCCALL JR PATIENT [facility] MEDICAL EXPENSE (OPT/PROF ) [facility] * Jan 24, 2015 [id number] [phone] CAROLE MCCALL SPOUSE Selected Encounter This section includes the information on record at [place] for the Encounter. Date/Time Encounter Type Encounter Description Reason Provider Source July 26, 2023 11:00 AM GROUP BEHAVE COUNS 2-10 WEIGHT MGMT & MOVE! PROG - GRP ICD-10-CM E66.3 Overweight NIAMIGUEL IHErin Encounter Template Text not used by [place] Assessments - Encounter Diagnoses This section includes [...] 31, 2023 10:00 AM [facility] August 02, 2023 11:00 AM [...] 25, 2023 11:30 AM [facility] Oct 04, 2023 11:00 AM AMBULATORY - NONE [place] Oct 11, 2023 11:00 AM AMBULATORY - NONE [place] Oct 18, 2023 11:00 AM AMBULATORY - NONE [place] Oct 23, 2023 09:00 AM AMBULATORY - NONE [place] [facility] [place] [facility] Oct 25, 2023 11:00 AM AMBULATORY - [...] 2023 02:00 PM [facility]UL[facility] Lab Results: +/- 30 days of the encounter This section includes the Chemistry and Hematology Lab Results on record with [place] for the patient. Radiology Reports and Pathology Reports are provided separately, in subsequent sections. Lab Results This section contains the Chemistry/Hematology Results that were resulted 30 days before or 30 daysafter the date of the Encounter. Date/Time Source Result Type Result - Unit Interpretation Reference Range Comment Jul 19, 2023 09:25 AM [facility] TSH Specimen Type: SERUM No comment entered. Ordering Provider: JANE MENDOZA Report Released Date/Time: Jul 12, 2023 10:12 AM Reporting Lab: [facility] [address] [facility] [address] Performing Lab: [facility] [address] [facility] [address] TSH 0.67 u[IU]/mL 0.35-5.00 Jul 19, 2023 09:25 AM [facility] LIPID PANEL, NON FASTING Specimen Type: SERUM No comment entered. Ordering Provider: JANE MENDOZA Report Released Date/Time: Jul 12, 2023 10:12 AM Reporting Lab: [facility] [address] [facility] [address] Performing Lab: [facility] [address] [facility] [address] CHOLESTEROL 119 mg/dL TRIGLYCERIDE 48 mg/dL 0-150 LDL calculated 63 mg/dL 0-129 CHOL/HDL 2.6 HDL CHOLESTEROL 46 mg/dL 40-60 Jul 19, 2023 09:25 AM [facility] LIVER FUNCTION Specimen Type: SERUM No comment entered. Ordering Provider: JANE MENDOZA Report Released Date/Time: Jul 12, 2023 10:12 AM Reporting Lab: [facility] [address] [facility] [address] Performing Lab: [address] [address] PROTEIN,TOTAL 6.7 g/dL 6.0-8.3 ALBUMIN 3.8 g/dL 3.5-5.0 ALKALINE PHOSPHATASE 55 U/L 40-150 AST 26 U/L 5-34 ALT 26 U/L BILIRUBIN, TOTAL 0.6 mg/dL 0.2-1.2 Jul 19, 2023 09:25 AM [facility] BASIC METABOLIC PANEL (non-fasting) Specimen Type: SERUM No comment entered. Ordering Provider: JANE MENDOZA Report Released Date/Time: Jul 12, 2023 10:12 AM Reporting Lab: [facility] [address] [facility] [address] Performing Lab: [address] [address] UREA NITROGEN 19 mg/dL 7-25 GLUCOSE 95 mg/dL 65-100 SODIUM 142 mmol/L 135-145 POTASSIUM 4.7 mmol/L 3.5-5.0 CHLORIDE 107 mmol/L 100-110 CO2 28 meq/L 20-30 CREATININE, Serum 0.90 mg/dL 0.50-1.40 eGFR(CKD-EPI 2020) 86 mL/min >60 Jul 19, 2023 09:25 AM [facility] CBC Specimen Type: BLOOD No comment entered. Ordering Provider: JANE MENDOZA Report Released Date/Time: Jul 12, 2023 10:12 AM Reporting Lab: [facility] [address] [facility] [address] Performing Lab: [address] [address] WBC 7.33 10*3/uL 4.50-11.00 RBC 4.94 10*6/uL [...] COMPLETED participated in MOVE! Group Counseling via [facility] on July 19, 2023. The was provided with information on [facility] and has given verbal consent to use group [facility] services for their healthcare. The copy of the Group Telehealth Agreement has been mailed to the . The Veterans location/emergency contact number were confirmed. The Emergency Call Relay Center (E911) was available. The visit was locked for security and privacy. [place] identified with 2 identifiers: [ ] Full Name [ ] Address Veterans attended the [facility] MOVE! group session on this date. MOVE! is a program designed to provide education about weight management skills to overweight and obese Veterans. Group members combined to gain 7.7 pounds since their last attended group. Group members initially discussed their past week's successes and areas for improvement. sales and marketing intern then presented on weight loss medications. Group members asked questions. One group members shared their experience and success using weight loss meds. Faciliators reminded veterans if they are interested to discuss with their provider. Faciliators also encouraged lifestyle changes in addition to using these medications. The next [facility] MOVE! group meeting will be held [...]
--- OUTSIDE RECORDS SUMMARY | 2024-03-21 08:07 | XMS_ITS | Encounter Summary ---
Author Name [facility] [place] Address [address] [place] [address] Care Team Providers Care Fruit And Vegetable Factory Worker Name Role Phone LEN MENDOZA Primary [...] PART B Sep 23, 2014 PART B [id number] HARMONY MCCALL JR PATIENT MEDICARE (WNR) MEDICARE (M) PART A July 25, 2007 PART A [id number] HARMONY MCCALL JR PATIENT MEDICARE (WNR) MEDICARE (M) PART B July 25, 2007 PART B [id number] [id number] HARMONY MCCALL JR PATIENT MEDICARE (WNR) MEDICARE (M) PART A July 25, 2007 PART A [id number] [phone] [id number] HARMONY MCCALL JR PATIENT [facility] MEDICAL EXPENSE (OPT/PROF ) [facility] * Jan 24, 2015 [id number] CAROLE MCCALL SPOUSE Selected Encounter This section includes the information on record at [place] for the Encounter. Date/Time Encounter Type Encounter Description Reason Provider Source Jun 14, 2023 11:00 AM WEIGHT MGMT CLASS WEIGHT MGMT & MOVE! PROG - GRP ICD-10-CM E66.3 Overweight GORDON PATHAK [facility] Encounter Template Text not used by [...] 26, 2023 10:00 AM [facility]ONE [facility] Jun 28, 2023 11:00 AM AMBULATORY - NONE [place] Jul 05, 2023 11:00 AM AMBULATORY - NONE [place] Jul 19, 2023 11:00 AM AMBULATORY - NONE [place] Jul 23, 2023 02:30 PM [facility] July 26, 2023 11:00 AM AMBULATORY - NONE [place] July 31, 2023 10:00 AM AM[facility]UL[facility]ORY - NONE [facility] August 02, 2023 11:00 AM AMBULATORY [...] 2023 11:30 AM AMBULATORY - [facility] Oct 04, 2023 11:00 AM AMBULATORY - NONE [place] Oct 11, 2023 11:00 AM AMBULATORY - NONE [place] Oct 18, 2023 11:00 AM AMBULATORY - NONE [place] Oct 23, 2023 09:00 AM AM[facility]ULATORY - [facility]ONE [facility] Vital Signs: All taken on the [...] AUTHOR: GORDON PATHAK COSIGNER: URGENCY: STATUS: COMPLETED [place] participated in MOVE! Group Counseling via [facility] on June 14, 2023. The [place] was provided with information on [facility] and has given verbal consent to use group [facility] services for their healthcare. The copy of the Group Telehealth Agreement has been mailed to the [place]. The Veterans location/emergency contact number were confirmed. The Emergency Call Relay Center (E911) was available. The visit was locked for security and privacy. [place] identified with 2 identifiers: [ ] Full Name [ ] Address Veterans attended the [facility] MOVE! group session on this date. [...] presentation given last week by the dietitian internal wholesaler and shared positive feedback. Group members shared their individual goals for the next week. The next [facility] MOVE! group meeting will be held on May @ 11:00am. [place]'s reported weight was 204.8 lbs. and gained 2.2 pounds since last group attended. Dx: Overweight Obesity E66.3 BMI 29.0-29.9 The session lasted for 1 hour in duration. /johanny/ GORDON PATHAK, Ph.D. CLINICAL PSYCHOLOGIST Signed: 06/14/2023 15:57 Receipt Acknowledged By: 06/19/2023 09:59 /johanny/ SANTIAGO KRAMER STAFF DIETITIAN GORDON PATHAK
--- OUTSIDE RECORDS SUMMARY | 2024-03-21 08:07 | XMS_ITS | Encounter Summary ---
Author Name [facility] [place] Address [address] [place] [address] Care Team Providers Care Resin Maker Name Role Phone LEN MENDOZA Primary [...] PART B Sep 23, 2014 PART B [id number] [id number] [phone] HARMONY MCCALL JR PATIENT MEDICARE (WNR) MEDICARE (M) PART A July 25, 2007 PART A [id number] [id number] HARMONY MCCALL JR PATIENT MEDICARE (WNR) MEDICARE (M) PART B July 25, 2007 PART B [id number] [id number] HARMONY MCCALL JR PATIENT MEDICARE (WNR) MEDICARE (M) PART A July 25, 2007 PART A [id number] HARMONY MCCALL JR PATIENT [facility] MEDICAL EXPENSE (OPT/PROF ) [facility] * Jan 24, 2015 [id number] CAROLE MCCALL SPOUSE Selected Encounter This [...] 2023 11:30 AM [facility] [place] Oct 04, 2023 11:00 AM AMBULATORY - NONE [place] Oct 11, 2023 11:00 AM AMBULATORY - NONE [place] Oct 18, 2023 11:00 AM AMBULATORY - NONE [place] Oct 23, 2023 09:00 AM AMBULATORY - NONE [facility] [place] Oct 25, 2023 11:00 AM AMBULATORY [...] NONE [facility] [facility] Dec 06, 2023 11:00 AM AMBULATORY - NONE [place] Dec 11, 2023 10:00 AM AMBULATORY - NONE [facility] Dec 11, 2023 01:00 PM AMBULATORY - MEDICINE [facility] Lab Results: +/- 30 days of the encounter This section includes the Chemistry and Hematology Lab Results on record with [place] for the patient. Radiology Reports and Pathology Reports are provided separately, in subsequent sections. Lab Results This section contains the Chemistry/Hematology Results that were resulted 30 days before or 30 daysafter the date of the Encounter. Date/Time Source Result Type Result - Unit Interpretation Reference Range Comment Jul 19, 2023 09:25 AM [place] [facility] LIPID PANEL, NON FASTING Specimen Type: SERUM No comment entered. Ordering Provider: JANE MENDOZA Report Released Date/Time: Jul 12, 2023 10:12 AM Reporting Lab: [place] [facility] [facility] [address] [facility] [address] Performing [facility]: [facility] [place] [address] [facility] [address] CHOLESTEROL 119 mg/dL TRIGLYCERIDE 48 mg/dL 0-150 LDL calculated 63 mg/dL 0-129 CHOL/HDL 2.6 HDL CHOLESTEROL 46 mg/dL 40-60 Jul 19, 2023 09:25 AM [facility] TSH Specimen Type: SERUM No comment entered. Ordering Provider: JANE MENDOZA Report Released Date/Time: Jul 12, 2023 10:12 AM Reporting Lab: [place] [facility] [facility] [address] [facility] [facility] [address] Performing Lab: [facility] [address] [facility] [facility] [address] TSH 0.67 u[IU]/mL 0.35-5.00 Jul 19, 2023 09:25 AM [facility] LIVER FUNCTION Specimen Type: SERUM No comment entered. Ordering Provider: JANE MENDOZA Report Released Date/Time: Jul 12, 2023 10:12 AM Reporting Lab: [facility] [address] [facility] [facility] [address] Performing Lab: [facility] [address] [facility] [facility] [address] PROTEIN,TOTAL 6.7 g/dL 6.0-8.3 ALBUMIN 3.8 g/dL 3.5-5.0 ALKALINE PHOSPHATASE 55 U/L 40-150 AST 26 U/L 5-34 ALT 26 U/L BILIRUBIN, TOTAL 0.6 mg/dL 0.2-1.2 Jul 19, 2023 09:25 AM [facility] BASIC METABOLIC PANEL (non-fasting) Specimen Type: SERUM No comment entered. Ordering Provider: JANE MENDOZA Report Released Date/Time: Jul 12, 2023 10:12 AM Reporting Lab: [facility] [address] [facility] [address] Performing Lab: [facility] [address] [facility] [address] UREA NITROGEN 19 mg/dL 7-25 GLUCOSE 95 [...] AM Reporting Lab: [facility] [address] [facility] [address] Performing Lab: [address] [address] WBC 7.33 10*3/uL 4.50-11.00 RBC 4.94 10*6/uL [...] AUTHOR: SANTIAGO KRAMER COSIGNER: URGENCY: STATUS: COMPLETED [place] participated in MOVE! Group Counseling via [facility] on August 09, 2023. The [place] was provided with information on [facility] and has given verbal consent to use group VVC services for their healthcare. The copy of the Group Telehealth Agreement has been mailed to the [place]. The Veterans location/emergency contact number were confirmed. [...] new group members. Last weeks topic on [place] 3 and [place] 6 fatty acids was reviewed. Group members shared their goals from last week and results. 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 Facilitators encouraged group members to set goals for healthy eating and exercise for the next week. The next [facility] MOVE! group meeting will be held on July @ 11:00am. [place]'s reported weight was 208.3 lbs. and gained 0.6 pounds since last group attended. Dx: Overweight E66.3 z 68.29 The session lasted for 1 hour in duration. /johanny/ SANTIAGO KRAMER STAFF DIETITIAN Signed: 08/10/2023 09:05 SANTIAGO KRAMER [place]
--- OUTSIDE RECORDS SUMMARY | 2024-03-21 08:07 | XMS_ITS | Encounter Summary ---
Author Name [facility] [place] Address [address] [place] [address] Care Team Providers Care Steam And Power Supervisor Name Role Phone LEN MENDOZA Primary [...] PART B Sep 23, 2014 PART B [id number] [id number] [phone] HARMONY MCCALL JR PATIENT MEDICARE (WNR) MEDICARE (M) PART A July 25, 2007 PART A [id number] HARMONY MCCALL JR PATIENT MEDICARE (WNR) MEDICARE (M) PART B July 25, 2007 PART B [id number] [id number] HARMONY MCCALL JR PATIENT MEDICARE (WNR) MEDICARE (M) PART A July 25, 2007 PART A [id number] HARMONY MCCALL JR PATIENT [facility] MEDICAL EXPENSE (OPT/PROF ) [facility] * Jan 24, 2015 [id number] CAROLE MCCALL SPOUSE Selected Encounter This section includes the information on record at [place] for the Encounter. Date/Time Encounter Type Encounter Description Reason Provider Source Jul 19, 2023 11:00 AM WEIGHT MGMT CLASS WEIGHT MGMT & MOVE! PROG - GRP ICD-10-CM Z68.29 Body mass index [BMI] 29.0-29.9, adult GORDON PATHAK [facility] Encounter Template Text not used by [...] 23, 2023 02:30 PM [facility] July 26, 2023 11:00 AM AMBULATORY - NONE [place] July 31, 2023 10:00 AM [facility] August 02, 2023 11:00 AM [...] 25, 2023 11:30 AM [facility] Oct 04, 2023 11:00 AM AMBULATORY - NONE [place] Oct 11, 2023 11:00 AM AMBULATORY - NONE [place] Oct 18, 2023 11:00 AM AMBULATORY - NONE [place] Oct 23, 2023 09:00 AM AMBULATORY - NONE [facility] [place] [facility] Oct 25, 2023 11:00 AM [...] Range Comment Jul 19, 2023 09:25 AM [facility] LIPID PANEL, NON FASTING Specimen Type: SERUM No comment entered. Ordering Provider: JANE MENDOZA Report Released Date/Time: Jul 12, 2023 10:12 AM Reporting Lab: [facility] [address] [facility] [address] Performing Lab: [facility] [address] [facility] [address] CHOLESTEROL 119 mg/dL TRIGLYCERIDE 48 mg/dL 0-150 LDL calculated 63 mg/dL 0-129 CHOL/HDL 2.6 HDL CHOLESTEROL 46 mg/dL 40-60 Jul 19, 2023 09:25 AM [facility] TSH Specimen Type: SERUM No comment entered. Ordering Provider: JANE MENDOZA Report Released Date/Time: Jul 12, 2023 10:12 AM Reporting Lab: [facility] [address] [facility] [address] Performing Lab: [facility] [address] [facility] [address] TSH 0.67 u[IU]/mL 0.35-5.00 Jul 19, 2023 09:25 AM [facility] LIVER FUNCTION Specimen Type: SERUM No comment entered. Ordering Provider: JANE MENDOZA Report Released Date/Time: Jul 12, 2023 10:12 AM Reporting Lab: [facility] [address] [facility] [address] Performing Lab: [address] [address] PROTEIN,TOTAL 6.7 g/dL 6.0-8.3 ALBUMIN 3.8 g/dL 3.5-5.0 ALKALINE PHOSPHATASE 55 U/L 40-150 AST 26 U/L 5-34 ALT 26 U/L BILIRUBIN, TOTAL 0.6 mg/dL 0.2-1.2 Jul 19, 2023 09:25 AM [facility] BASIC METABOLIC PANEL (non-fasting) Specimen Type: SERUM No comment entered. Ordering Provider: JANE MENDOZA Report Released Date/Time: Jul 12, 2023 10:12 AM Reporting Lab: [facility] [address] [facility] [address] Performing Lab: [address] [address] UREA NITROGEN 19 mg/dL 7-25 GLUCOSE 95 mg/dL 65-100 SODIUM 142 mmol/L 135-145 POTASSIUM 4.7 mmol/L 3.5-5.0 CHLORIDE 107 mmol/L 100-110 CO2 28 meq/L 20-30 CREATININE, Serum 0.90 mg/dL 0.50-1.40 eGFR(CKD-EPI 2020) 86 mL/min >60 Jul 19, 2023 09:25 AM [facility] CBC Specimen Type: BLOOD No comment entered. Ordering Provider: JANE MENDOZA Report Released Date/Time: Jul 12, 2023 10:12 AM Reporting Lab: [facility] [address] [facility] [address] Performing Lab: [address] [address] WBC 7.33 10*3/uL 4.50-11.00 RBC 4.94 10*6/uL [...] COMPLETED participated in MOVE! Group Counseling via [facility] on July 19, 2023. The [place] was provided with information on [facility] and has given verbal consent to [...] Name [ ] Address Veterans attended the [facility] MOVE! group session on this date. MOVE! is a program designed to provide education about weight management skills to overweight and obese Veterans. Group members combined to gain 7.5 pounds since their last attended group. Group members were introduced to a buyer internship who will be joining the group [...] goals for the next week. The next [facility] MOVE! group meeting will be held [...]
--- OUTSIDE RECORDS SUMMARY | 2024-03-21 08:07 | XMS_ITS | Encounter Summary ---
Author Name [place] Organization [place] Address [address] [place] [address] Care Team Providers Care Courier Name Role Phone LUCAS STRATTON Primary Care [...] PART B Sep 23, 2014 PART B [id number] HARMONY MCCALL JR PATIENT MEDICARE (WNR) MEDICARE (M) PART A July 25, 2007 PART A [id number] HARMONY MCCALL JR PATIENT MEDICARE (WNR) MEDICARE (M) PART B July 25, 2007 PART B [id number] HARMONY MCCALL JR PATIENT MEDICARE (WNR) MEDICARE (M) PART A July 25, 2007 PART A [id number] [id number] [phone] [id number] HARMONY MCCALL JR PATIENT [facility] MEDICAL EXPENSE (OPT/PROF ) [facility] * Jan 24, 2015 [id number] CAROLE MCCALL SPOUSE Selected Encounter This section includes the information on record at [place] for the Encounter. Date/Time Encounter Type Encounter Description Reason Provider Source Jul 23, 2023 02:30 PM OFFICE O/P EST MOD 30 MIN PRIMARY CARE/MEDICINE ICD-10-CM K21.9 Gastro-esophageal reflux disease without esophagitis ELIAN STRATTON AM Erin Encounter Template Text not used by [place] Assessments - Encounter Diagnoses This section includes the primary and secondary diagnoses documented for the Encounter. Date/Time Primary/Secondary Diagnosis Diagnosis Name Provider Source August 13, 2023 03:32 PM PRIMARY Gastro-esophageal reflux disease without esophagitis STRATTON,WILL [facility] August 13, 2023 03:32 PM SECONDARY Abdominal aortic aneurysm, without rupture, unspecified STRATTON,WILL [facility] August 13, 2023 03:32 PM SECONDARY Contact with and exposure to other hazardous substances STRATTON,WILL [facility] August 13, 2023 03:32 PM SECONDARY Essential (primary) hypertension STRATTON,WILL [facility] August 13, 2023 03:32 PM SECONDARY Hypothyroidism, unspecified STRATTON,WILL [facility] August 13, 2023 03:32 PM SECONDARY Sleep apnea, unspecified STRATTON,WILL [facility] Plan of Treatment: Future Appointments (+ 6 months) and Future Tests (+/- 45 days) The Plan of Treatment section includes future care activities for the patient from all [place] treatmentcilities. This section includes future appointments and future orders which are active, pending or scheduled. Future Appointments This section includes appointments that were scheduled to occur 6 months from the date of the Encounter, up to a maximum of 20 appointments. The data comes from all [facility] facilities. Appointment Date/Time Appointment Type Appointme nt Facility Name July 26, 2023 11:00 AM [facility] July 31, 2023 10:00 AM AMBULATORY - NONE [facility] August 02, 2023 11:00 AM AMBULATORY [...] - MEDICINE [facility] [place] [facility] Oct 04, 2023 11:00 AM AMBULATORY - NONE [facility] [facility] Oct 11, 2023 11:00 AM AMBULATORY - NONE [facility] [facility] Oct 18, 2023 11:00 AM AMBULATORY - NONE [place] Oct 23, 2023 09:00 AM AMBULATORY - NONE [facility] [place] [facility] Oct 25, 2023 11:00 AM AMBULATORY [...] Range Comment Jul 19, 2023 09:25 AM [facility] LIPID PANEL, NON FASTING Specimen Type: SERUM No comment entered. Ordering Provider: JANE STRATTON Report Released Date/Time: Jul 12, 2023 10:12 AM Reporting Lab: [facility] [address] [address] Performing Lab: [facility] [address] [address] CHOLESTEROL 119 mg/dL TRIGLYCERIDE 48 mg/dL 0-150 LDL calculated 63 mg/dL 0-129 CHOL/HDL 2.6 HDL CHOLESTEROL 46 mg/dL 40-60 Jul 19, 2023 09:25 AM [facility] TSH Specimen Type: SERUM No comment entered. Ordering Provider: JANE STRATTON Report Released Date/Time: Jul 12, 2023 10:12 AM Reporting Lab: [address] [address] Performing Lab: [address] [address] TSH 0.67 u[IU]/mL 0.35-5.00 Jul 19, 2023 09:25 AM [facility] LIVER FUNCTION Specimen Type: SERUM No comment entered. Ordering Provider: JANE STRATTON Report Released Date/Time: Jul 12, 2023 10:12 AM Reporting Lab: [address] [address] Performing Lab: [address] [address] PROTEIN,TOTAL 6.7 g/dL 6.0-8.3 ALBUMIN 3.8 g/dL 3.5-5.0 ALKALINE PHOSPHATASE 55 U/L 40-150 AST 26 U/L 5-34 ALT 26 U/L BILIRUBIN, TOTAL 0.6 mg/dL 0.2-1.2 Jul 19, 2023 09:25 AM [facility] BASIC METABOLIC PANEL (non-fasting) Specimen Type: SERUM No comment entered. Ordering Provider: JANE STRATTON Report Released Date/Time: Jul 12, 2023 10:12 AM Reporting Lab: [address] [address] Performing Lab: [address] [address] UREA NITROGEN 19 mg/dL 7-25 GLUCOSE 95 mg/dL 65-100 SODIUM 142 mmol/L 135-145 POTASSIUM 4.7 mmol/L 3.5-5.0 CHLORIDE 107 mmol/L 100-110 CO2 28 meq/L 20-30 CREATININE, Serum 0.90 mg/dL 0.50-1.40 eGFR(CKD-EPI 2020) 86 mL/min >60 Jul 19, 2023 09:25 AM [facility] CBC Specimen Type: BLOOD No comment entered. Ordering Provider: JANE STRATTON Report Released Date/Time: Jul 12, 2023 10:12 AM Reporting Lab: [facility] [address] [address] Performing Lab: [facility] [address] [address] WBC 7.33 10*3/uL 4.50-11.00 RBC 4.94 10*6/uL [...] Source Jul 23, 2023 02:43 PM 138/74 [facility] Jul 23, 2023 02:09 PM 98.2 66 146/73 20 96 2 68 214 33 [facility] Social History: Smoking Status (Most current) [...] 26, 2023 01:30 PM VA-TOBACCO FORMER USER [facility] Tobacco Use History This section includes a history of the smoking, or tobacco-related health factors, that were collected on or before the date of the Encounter. The data comes from the [place] facility where the Encounter took place. Date/Time Smoking Status/Tobacco Use Comment F acility Jan 26, 2023 01:30 PM VA-TOBACCO QUIT 15 YRS OR MORE [place] [facility] [place] [facility] Jan 27, 2022 11:00 AM VA-TOBACCO FORMER USER [facility] [place] [facility] Jan 27, 2022 11:00 AM VA-TOBACCO QUIT 15 YRS OR MORE [facility] [place] [facility] Sep 17, 2020 09:00 AM VA-TOBACCO FORMER USER [place] [facility] [place] [facility] Sep 17, 2020 09:00 AM VA-TOBACCO QUIT 15 YRS OR MORE [place] [facility] [place] [facility] Jun 04, 2019 02:57 PM VA-TOBACCO NEVER USED [place] [facility] [place] [facility] Mar 14, 2018 11:23 AM VA-TOBACCO FORMER USER [place] [facility] [place] [facility] Mar 14, 2018 11:23 AM VA-TOBACCO QUIT 15 YRS OR MORE [place] [facility] [place] [facility] Apr 04, 2017 12:30 PM QUIT TOBACCO USE > 7 YEARS AGO [place] [facility] [place] [facility] Apr 05, 2016 01:02 PM QUIT TOBACCO USE > 7 YEARS AGO quit in 1984 [place] [facility] [place] [facility] Encounter Notes: All associated encounter [...] complaint: Patient is a 82 year old [place]. HPI: Pleasant male Meade here to follow up. He notes slowing [...] address clinical status. 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 Printed information was offered and provided if desired. /caregiver has no health or medical concerns related to their concern of environmental exposure. No questions at this time [place]ade/caregiver was informed of local points of contact. Contact information for local resources: Benefits/Claim for Disability Compensation Questions:National VBA [place] Healthcare Enrollment: [facility] Eligibility direct dialed at [phone] Registry: [facility] Health Coordinator ext [phone] The following connections were provided to the [...] of active outpatient prescriptions dispensed from this [place] (local) and dispensed from another VA or [...] or non-VA provider. /johanny/ Lucas Stratton DNP, ULTRASOUND TESTER-BC, CNL Primary Care Nurse Practitioner Signed: 07/23/2023 14:43 LUCAS STRATTON [place] [facility] [place] [facility] Jul 23, 2023 02:12 PM PREVENTIVE MEDICINE NURSING NOTE: LOCAL TITLE: CLINICAL REMINDERS/NURSING STANDARD TITLE: PREVENTIVE MEDICINE NURSING NOTE DATE OF NOTE: JUL 23, 2023@14:12 ENTRY DATE: JUL 23, 2023@14:12:07 AUTHOR: ARRON AUGUSTINIGNER: URGENCY: STATUS: COMPLETED Suicide Screen: C-SSRS Screening [place]-Suicide Severity Rating Scale (C-SSRS Screener) 1. Over [...] more. Never true /johanny/ Arron Augustin Health Inventory Worker COMPANY MARKER,PRIMARY CARE Signed: 07/23/2023 14:13 ARRON AUGUSTIN [place] [facility]
--- OUTSIDE RECORDS SUMMARY | 2024-03-21 08:07 | XMS_ITS | Encounter Summary ---
Author Name [place] Address [address] [place] [address] Care Team Providers Care Weapons Officer [employer] Name Role Phone LEN MENDOZA Primary Care [...] PART B Sep 23, 2014 PART B [id number] HARMONY MCCALL JR PATIENT MEDICARE (WNR) MEDICARE (M) PART A July 25, 2007 PART A [id number] HARMONY MCCALL JR PATIENT MEDICARE (WNR) MEDICARE (M) PART B July 25, 2007 PART B [id number] [phone] HARMONY MCCALL JR PATIENT MEDICARE (WNR) MEDICARE (M) PART A July 25, 2007 PART A [id number] [id number] [id number] HARMONY MCCALL JR PATIENT [facility] MEDICAL EXPENSE (OPT/PROF ) [facility] * Jan 24, 2015 [id number] [phone] CAROLE MCCALL SPOUSE Selected Encounter This [...] 23, 2023 02:30 PM AMBULATORY - MEDICINE [facility] July 26, 2023 11:00 AM AMBULATORY - NONE [place] July 31, 2023 10:00 AM AMBULATORY - NONE [facility] August 02, 2023 11:00 AM AMBULATORY [...] 25, 2023 11:30 AM AMBULATORY - MEDICINE [facility] Oct 04, 2023 11:00 AM AMBULATORY - NONE [place] Oct 11, 2023 11:00 AM AMBULATORY - NONE [place] Oct 18, 2023 11:00 AM AMBULATORY - NONE [place] Oct 23, 2023 09:00 AM AMBULATORY - NONE [facility] [place] [facility] Oct 25, 2023 11:00 AM [...] Range Comment Jul 19, 2023 09:25 AM [facility] LIPID PANEL, NON FASTING Specimen Type: SERUM No comment entered. Ordering Provider: JANE MENDOZA Report Released Date/Time: Jul 12, 2023 10:12 AM Reporting Lab: [facility] [address] [address] Performing Lab: [facility] [address] [address] CHOLESTEROL 119 mg/dL TRIGLYCERIDE 48 mg/dL 0-150 LDL calculated 63 mg/dL 0-129 CHOL/HDL 2.6 HDL CHOLESTEROL 46 mg/dL 40-60 Jul 19, 2023 09:25 AM [facility] TSH Specimen Type: SERUM No comment entered. Ordering Provider: JANE MENDOZA Report Released Date/Time: Jul 12, 2023 10:12 AM Reporting Lab: [facility] [address] [address] Performing Lab: [facility]ITAL[facility] [address] TSH 0.67 u[IU]/mL 0.35-5.00 Jul 19, 2023 09:25 AM [facility] LIVER FUNCTION Specimen Type: SERUM No comment entered. Ordering Provider: JANE MENDOZA Report Released Date/Time: Jul 12, 2023 10:12 AM Reporting Lab: [facility] [address] [address] Performing Lab: [address] [address] PROTEIN,TOTAL 6.7 g/dL 6.0-8.3 ALBUMIN 3.8 g/dL 3.5-5.0 ALKALINE PHOSPHATASE 55 U/L 40-150 AST 26 U/L 5-34 ALT 26 U/L BILIRUBIN, TOTAL 0.6 mg/dL 0.2-1.2 Jul 19, 2023 09:25 AM [facility] BASIC METABOLIC PANEL (non-fasting) Specimen Type: SERUM No comment entered. Ordering Provider: JANE MENDOZA Report Released Date/Time: Jul 12, 2023 10:12 AM Reporting Lab: [facility] [address] [address] Performing Lab: [address] [address] UREA NITROGEN 19 mg/dL 7-25 GLUCOSE 95 mg/dL 65-100 SODIUM 142 mmol/L 135-145 POTASSIUM 4.7 mmol/L 3.5-5.0 CHLORIDE 107 mmol/L 100-110 CO2 28 meq/L 20-30 CREATININE, Serum 0.90 mg/dL 0.50-1.40 eGFR(CKD-EPI 2020) 86 mL/min >60 Jul 19, 2023 09:25 AM [facility] CBC Specimen Type: BLOOD No comment entered. Ordering Provider: JANE MENDOZA Report Released Date/Time: Jul 12, 2023 10:12 AM Reporting Lab: [facility] [address] [address] Performing Lab: [address] [address] WBC 7.33 10*3/uL 4.50-11.00 RBC 4.94 10*6/uL [...] 2023. The was provided with information on [facility] and has given verbal consent to use group VV services for their healthcare. The copy of the Group Telehealth Agreement has been mailed to the [place]. The Veterans location/emergency contact number were confirmed. The Emergency Call Relay Center (E911) was available. The visit was locked for security and privacy. [place] identified with 2 identifiers: [ ] Full Name [ ] Address Veterans attended the [facility] MOVE! group session on this date. MOVE! [...] members were rather quiet today. The next [facility] MOVE! group meeting will be held on June @ 11:00am. Sheldon's reported weight was 205 lbs. and gained [...]
--- OUTSIDE RECORDS SUMMARY | 2024-03-21 08:08 | XMS_ITS | Encounter Summary ---
Author Name [place] Address [address] [place] [id number] Care Team Providers Care Child Care Education Coordinator Name Role Phone LEN MENDOZA Primary [...] PART B Sep 23, 2014 PART B [id number] HARMONY MCCALL JR PATIENT MEDICARE (WNR) MEDICARE (M) PART A July 25, 2007 PART A [id number] [id number] HARMONY MCCALL JR PATIENT MEDICARE (WNR) MEDICARE (M) PART B July 25, 2007 PART B [id number] [id number] HARMONY MCCALL JR PATIENT MEDICARE (WNR) MEDICARE (M) PART A July 25, 2007 PART A [id number] HARMONY CMCALL JR PATIENT [facility] MEDICAL EXPENSE (OPT/PROF ) [facility] * Jan 24, 2015 [id number] CAROLE MCCALL SPOUSE Selected Encounter This section includes the information on record at [place] for the Encounter. Date/Time Encounter Type Encounter Description Reason Provider Source Sep 24, 2023 08:00 AM EXERCISE CLASS HEALTH/WELLBEING SRVS ICD-10-CM Z72.3 Lack of physical exercise JANIE LAZCANO E Encounter Template Text not used by [place] Assessments - Encounter Diagnoses This section includes the primary and secondary diagnoses documented for the Encounter. Date/Time Primary/Secondary Diagnosis Diagnosis Name Provider Source Sep 24, 2023 10:25 AM PRIMARY Lack of physical exercise DAMON ONEILL [facility] Plan of Treatment: Future Appointments (+ [...] 25, 2023 11:30 AM [facility] Oct 04, 2023 11:00 AM AMBULATORY - NONE [place] Oct 11, 2023 11:00 AM AMBULATORY - NONE [place] Oct 18, 2023 11:00 AM AMBULATORY - NONE [place] Oct 23, 2023 09:00 AM AM[facility] - NONE [facility] Oct 25, 2023 11:00 AM AMBULATORY [...] 03, 2023 02:00 PM AMBULATORY - NONE [place] [facility] [place] [facility] Dec 06, 2023 11:00 AM AMBULATORY - NONE [place] Dec 11, 2023 10:00 AM AMBULATORY - NONE [facility] [place] [facility] Dec 11, 2023 01:00 PM AMBULATORY - MEDICINE [facility] [place] [place] [facility] Dec 13, 2023 11:00 AM [facility]ORY - NONE [facility] Dec 20, 2023 11:00 AM AMBULATORY - NONE [place] Dec 25, 2023 10:00 AM AMBULATORY - NONE [facility] [place] [facility] Dec 27, 2023 11:00 AM AMBULATORY - NONE [facility] Jan 03, 2024 11:00 [facility] Social History: Smoking Status (Most current) and Tobacco Use (All prior to encounter date) This section includes the most current, and the historical, smoking and tobacco- related health factors from the [place] facility where the Encounter took place. Current Smoking Status This section includes the most current smoking, or tobacco-related health factor, from the [place] facility where the Encounter took place. Date/Time Current Smoking Status Comment Facil ity Jan 26, 2023 01:30 PM VA-TOBACCO QUIT 15 YRS OR MORE [place] [facility] [place] [facility] Tobacco Use History This section includes a history of the smoking, or tobacco-related health factors, that were collected on or before the date of the Encounter. The data comes from the [place] facility where the Encounter took place. Date/Time Smoking Status/Tobacco Use Comment F acility Jan 26, 2023 01:30 PM VA-TOBACCO QUIT 15 YRS OR MORE [facility] [place] [place] [facility] Jan 27, 2022 11:00 AM VA-TOBACCO FORMER USER [facility] [place] [facility] Jan 27, 2022 11:00 AM VA-TOBACCO QUIT 15 YRS OR MORE [facility] [place] [place] [facility] Sep 17, 2020 09:00 AM VA-TOBACCO FORMER USER [place] [facility] [place] [facility] Sep 17, 2020 09:00 AM VA-TOBACCO QUIT 15 YRS OR MORE [place] [facility] [place] [facility] Jun 04, 2019 02:57 PM VA-TOBACCO NEVER USED [place] [facility] [place] [facility] Mar 14, 2018 11:23 AM VA-TOBACCO FORMER USER [facility] [facility] Mar 14, 2018 11:23 AM VA-TOBACCO QUIT 15 YRS OR MORE [facility] Apr 04, 2017 12:30 PM QUIT TOBACCO USE > 7 YEARS AGO [facility] Apr 05, 2016 01:02 [...] COMPLETED GEROFIT VVC/VCM/VOD Telehealth Supervised Exercise NOTE [place] Provided informed consent to receive treatment via Telehealth., [place] mailed and has been made verbally aware of Telehealth Group [place] practices. [place]'s Location: address on record unless specified below. Emergency Contact: on record unless specified below. participated remotely in the Gerofit exercise program today through [place] Virtual Trailer Driver. Activities were focused on progression of their [...] whole health concerns. /johanny/ VIOLETTA FINK LICENSE SUPERVISOR INSULATION Signed: 09/24/2023 10:34 DOUG ONEILL [facility]
--- OUTSIDE RECORDS SUMMARY | 2024-03-21 08:08 | XMS_ITS | Encounter Summary ---
Author Name [place] Address [address] [place] [id number] Care Team Providers Care Neonatal Doctor Name Role Phone LEN MENDOZA Primary Care [...] PART B Sep 23, 2014 PART B [id number] [id number] HARMONY MCCALL JR PATIENT MEDICARE (WNR) MEDICARE (M) PART A July 25, 2007 PART A [id number] HARMONY MCCALL JR PATIENT MEDICARE (WNR) MEDICARE (M) PART B July 25, 2007 PART B [id number] [phone] [id number] HARMONY MCCALL JR PATIENT MEDICARE (WNR) MEDICARE (M) PART A July 25, 2007 PART A [id number] HARMONY MCCALL JR PATIENT [facility] MEDICAL EXPENSE (OPT/PROF ) [facility] * Jan 24, 2015 [id number] CAROLE MCCALL SPOUSE Selected Encounter This section includes the information on record at [place] for the Encounter. Date/Time Encounter Type Encounter Description Reason Provider Source Sep 20, 2023 11:00 AM WEIGHT MGMT CLASS WEIGHT MGMT & MOVE! PROG - GRP ICD-10-CM Z68.30 Body mass index [BMI] 30.0-30.9, adult [facility] Encounter Template Text not used by [place] [...] 25, 2023 11:30 AM AMBULATORY - MEDICINE [facility] Oct 04, 2023 11:00 AM AMBULATORY - NONE [place] Oct 11, 2023 11:00 AM AMBULATORY - NONE [place] Oct 18, 2023 11:00 AM AMBULATORY - NONE [place] Oct 23, 2023 09:00 AM AMBULATORY - NONE [facility] Oct 25, 2023 11:00 AM AMBULATORY [...] 03, 2023 02:00 PM [facility] Dec 06, 2023 11:00 AM AMBULATORY - NONE [place] Dec 11, 2023 10:00 AM AMBULATORY - NONE [place] [facility] [place] [facility] Dec 11, 2023 01:00 PM AMBULATORY - MEDICINE [place] [facility] [place] [facility] Dec 13, 2023 11:00 AM AMBULATORY - NONE [place] Dec 20, 2023 11:00 AM AMBULATORY - NONE [place] Dec 25, 2023 10:00 AM AMBULATORY - NONE [place] [facility] [place] [facility] Dec 27, 2023 11:00 AM AMBULATORY - [...] COMPLETED participated in MOVE! Group Counseling via [facility] on September 20, 2023. The was provided with information on [facility] and has given verbal consent to use group VV services for their healthcare. The copy of the Group Telehealth Agreement has been mailed to the [place]. The Veterans location/emergency contact number were confirmed. The Emergency Call Relay Center (E911) was available. The visit was locked for security and privacy. identified with 2 identifiers: [ ] Full Name [ ] Address Veterans attended the [facility] MOVE! group session on this date. [...] it while trying to lose weight. One [place] shared that he plans to throw out his peanut butter because it might be contributing to his weight being higher than he wants it to be. Group discussed strategies to recommit to weight loss including returning to food tracking and the Healthy Plate model for meals. Group members shared their individual goals for the next week. The next [facility] MOVE! group meeting will be held [...]
--- OUTSIDE RECORDS SUMMARY | 2024-03-21 08:08 | XMS_ITS | Encounter Summary ---
Author Name [facility] [place] [facility] [place] Organization [facility] [place] Address [address] [place] [id number] Care Team Providers Care Road Design Draftsperson Name Role Phone LEN MENDOZA Primary Care [...] PART B Sep 23, 2014 PART B [id number] HARMONY MCCALL JR PATIENT MEDICARE (WNR) MEDICARE (M) PART A July 25, 2007 PART A [id number] HARMONY MCCALL JR PATIENT MEDICARE (WNR) MEDICARE (M) PART B July 25, 2007 PART B [id number] HARMONY MCCALL JR PATIENT MEDICARE (WNR) MEDICARE (M) PART A July 25, 2007 PART A [id number] [id number] HARMONY MCCALL JR PATIENT [facility] MEDICAL EXPENSE (OPT/PROF ) [facility] * Jan 24, 2015 [id number] CAROLE MCCALL SPOUSE Selected Encounter This section includes the information on record at [place] for the Encounter. Date/Time Encounter Type Encounter Description Reason Provider Source Sep 14, 2023 08:00 AM EXERCISE CLASS HEALTH/WELLBEING SRVS ICD-10-CM Z72.3 Lack of physical exercise TERRY COATES [facility] Encounter Template Text not used by [place] Assessments - Encounter Diagnoses This section includes the primary and secondary diagnoses documented for the Encounter. Date/Time Primary/Secondary Diagnosis Diagnosis Name Provider Source Sep 14, 2023 11:03 AM PRIMARY Lack of physical exercise [facility] Plan of Treatment: Future Appointments [...] 25, 2023 11:30 AM AMBULATORY - MEDICINE [place] [facility] [place] [facility] Oct 04, 2023 11:00 AM AMBULATORY - NONE [place] Oct 11, 2023 11:00 AM AMBULATORY - NONE [place] Oct 18, 2023 11:00 AM AMBULATORY - NONE [place] Oct 23, 2023 09:00 AM AMBULATORY - NONE [facility] [place] [facility] Oct 25, 2023 11:00 AM AMBULATORY [...] 03, 2023 02:00 PM AMBULATORY - NONE [facility] [place] [facility] Dec 06, 2023 11:00 AM AMBULATORY - NONE [place] Dec 11, 2023 10:00 AM AMBULATORY - NONE [facility] [place] [facility] Dec 11, 2023 01:00 PM AMBULATORY - MEDICINE [facility] [place] [facility] Dec 13, 2023 11:00 AM AMBULATORY - NONE [place] Dec 20, 2023 11:00 AM AMBULATORY - NONE [place] Dec 25, 2023 10:00 AM AMBULATORY - NONE [facility] [place] [facility] Dec 27, 2023 11:00 AM AMBULATORY [...] USER [facility] [place] [facility] Tobacco Use History This section includes a history of the smoking, or tobacco-related health factors, that were collected on or before the date of the Encounter. The data comes from the [place] facility where the Encounter took place. Date/Time Smoking Status/Tobacco Use Comment F acility Jan 26, 2023 01:30 PM VA-TOBACCO QUIT 15 YRS OR MORE [facility] [place] [facility] Jan 27, 2022 11:00 AM VA-TOBACCO FORMER USER [facility] [place] [facility] Jan 27, 2022 11:00 AM VA-TOBACCO QUIT 15 YRS OR MORE [facility] [place] [facility] Sep 17, 2020 09:00 AM VA-TOBACCO FORMER USER [facility] [place] [facility] Sep 17, 2020 09:00 AM VA-TOBACCO QUIT 15 YRS OR MORE [facility] [place] [facility] Jun 04, 2019 02:57 PM VA-TOBACCO NEVER USED [facility] [place] [facility] Mar 14, 2018 11:23 AM VA-TOBACCO FORMER USER [facility] [place] [facility] Mar 14, 2018 11:23 AM VA-TOBACCO QUIT 15 YRS OR MORE [facility] [place] [facility] Apr 04, 2017 12:30 PM QUIT TOBACCO USE > 7 YEARS AGO [facility] Apr 05, 2016 01:02 PM QUIT TOBACCO USE > 7 YEARS AGO quit in 1984 [facility] Encounter Notes: All associated encounter notes This section contains the clinical notes associated to the Encounter. Date/Time Encounter Note(s) Provider Source Sep 14, 2023 11:01 AM GERIATRIC MEDICINE NOTE: LOCAL TITLE: GEROFIT VCM/VVC/VOD TELEHEALTH SUPERVISED EXERCISE STANDARD TITLE: GERIATRIC MEDICINE NOTE DATE OF NOTE: SEP 14, 2023@11:01 ENTRY DATE: SEP 14, 2023@11:01:24 AUTHOR: TERRY COATES EXP COSIGNER: URGENCY: STATUS: COMPLETED TIMO FIT VVC/VCM/VOD Telehealth Supervised Exercise NOTE Provided informed consent to receive treatment via Telehealth., mailed and has been made verbally aware of [facility] [place] practices. 's Location: address on record unless specified below. Emergency Contact: on record unless specified below. [facility] through [facility] [employer]. Activities were focused on progression of their individual exercise prescription (cardiorespiratory fitness training, strength training, etc.) and group-based exercise sessions to include, but not limited to: flexibility training, balance training & functional circuit training. [facility] and any questions/concerns were addressed with the patient. Modifications were made to programming as appropriate to suit Veterans individual needs, preferences, and whole health concerns. /johanny/ TERRY COATES PT, DPT PHYSICAL THERAPIST Signed: 09/14/2023 11:05 TERRY COATES [facility]
--- OUTSIDE RECORDS SUMMARY | 2024-03-21 08:08 | XMS_ITS | Encounter Summary ---
Author Name [facility] [place] [facility] [place] Organization [facility] [place] Address [address] [place] [address] Care Team Providers Care Lead Software Test Engineer Name Role Phone LEN MENDOZA Primary [...] PART B Sep 23, 2014 PART B [id number] HARMONY MCCALL JR PATIENT MEDICARE (WNR) MEDICARE (M) PART A July 25, 2007 PART A [id number] [id number] HARMONY MCCALL JR PATIENT MEDICARE (WNR) MEDICARE (M) PART B July 25, 2007 PART B [id number] [id number] HARMONY MCCALL JR PATIENT MEDICARE (WNR) MEDICARE (M) PART A July 25, 2007 PART A [id number] HARMONY MCCALL JR PATIENT [facility] MEDICAL EXPENSE (OPT/PROF ) [facility] * Jan 24, 2015 [id number] CAROLE MCCALL SPOUSE Selected Encounter This section includes the information on record at [place] for the Encounter. Date/Time Encounter Type Encounter Description Reason Provider Source Sep 25, 2023 11:30 AM COMPRE OPH EXAM EST PT 1/> OPTOMETRY ICD-10-CM L71.8 Other rosacea NIMO GEE E Encounter Template Text not used by [place] Assessments - Encounter Diagnoses This section includes the primary and secondary diagnoses documented for the Encounter. Date/Time Primary/Secondary Diagnosis Diagnosis Name Provider Source Oct 24, 2023 10:16 AM PRIMARY Other rosacea NIMO GEE [facility] [place] [facility] Oct 24, 2023 10:16 AM SECONDARY Benign neoplasm of pituitary gland NIMO GEE [facility] [place] [facility] Oct 24, 2023 10:16 AM SECONDARY Dry eye syndrome of bilateral lacrimal glands NIMO GEE [facility] [place] [facility] Oct 24, 2023 10:16 AM SECONDARY Meibomian gland dysfnct left eye, upper and lower eyelids NIMO GEE [facility] [place] [facility] Oct 24, 2023 10:16 AM SECONDARY Meibomian gland dysfnct right eye, upper and lower eyelids NIMO GEE [facility] [place] [facility] Oct 24, 2023 10:16 AM SECONDARY Presence of intraocular lens NIMO GEE [facility] [place] [facility] Oct 24, 2023 10:16 AM SECONDARY Rhinophyma NIMO GEE [facility] [place] [facility] Plan of Treatment: Future Appointments (+ 6 [...] - NONE [facility] [place] [facility] Oct 25, 2023 11:00 AM AMBULATORY - [...] - NONE [facility] [place] [facility] Dec 06, 2023 11:00 AM AMBULATORY - NONE [place] Dec 11, 2023 10:00 AM AMBULATORY - NONE [facility] [place] [facility] Dec 11, 2023 01:00 PM AMBULATORY - MEDICINE [facility] [place] [facility] Dec 13, 2023 11:00 AM AMBULATORY - NONE [place] Dec 20, 2023 11:00 AM AMBULATORY - NONE [place] Dec 25, 2023 10:00 AM AMBULATORY - NONE [facility] [place] [facility] Dec 27, 2023 11:00 AM AMBULATORY - NONE [place] Jan 03, 2024 11:00 AM AMBULATORY - NONE [place] Jan 08, 2024 10:00 AM AMBULATORY - NONE [facility] [place] [facility] Social History: Smoking Status (Most current) and Tobacco Use (All prior to encounter date) This section includes the most current, and the historical, smoking and tobacco- related health factors from the VA facility where the Encounter took place. Current Smoking Status This section includes the most current smoking, or tobacco-related health factor, from the VA facility where the Encounter took place. Date/Time Current Smoking Status Comment Mary ity Jan 26, 2023 01:30 PM [facility] Tobacco Use History This section includes a history of the smoking, or tobacco-related health factors, that were collected on or before the date of the Encounter. The data comes from the [place] facility where the Encounter took place. Date/Time Smoking Status/Tobacco Use Comment F acility Jan 26, 2023 01:30 PM VA-TOBACCO QUIT 15 YRS OR MORE [facility] [place] [facility] Jan 27, 2022 11:00 AM VA-TOBACCO FORMER USER [facility] [place] [facility] Jan 27, 2022 11:00 AM VA-TOBACCO QUIT 15 YRS OR MORE [facility] [place] [facility] Sep 17, 2020 09:00 AM VA-TOBACCO FORMER USER [facility] [place] [facility] Sep 17, 2020 09:00 AM VA-TOBACCO QUIT 15 YRS OR MORE [facility] [place] [facility] Jun 04, 2019 02:57 PM VA-TOBACCO NEVER USED [facility] [place] [facility] Mar 14, 2018 11:23 AM VA-TOBACCO FORMER USER [facility] [place] [facility] Mar 14, 2018 11:23 AM VA-TOBACCO QUIT 15 YRS OR MORE [facility] [place] [facility] Apr 04, 2017 12:30 PM QUIT TOBACCO USE > 7 YEARS AGO [facility] [place] [facility] Apr 05, 2016 01:02 PM QUIT TOBACCO USE > 7 YEARS AGO quit in 1984 [place] [facility] [place] [facility] Encounter Notes: All associated encounter notes This section contains the clinical notes associated to the Encounter. Date/Time Encounter Note(s) Provider Source Sep 25, 2023 12:04 PM OPTOMETRY NOTE: LOCAL TITLE: OPTOMETRY NOTE STANDARD TITLE: OPTOMETRY NOTE DATE OF NOTE: SEP 25, 2023@12:04 ENTRY DATE: SEP 25, 2023@12:04:38 AUTHOR: GRECIA GEE COSIGNER: URGENCY: STATUS: COMPLETED I saw this patient in conjunction with the student and agree with the stated findings and plan as noted below after reviewing both the history and repeating valdovinos elements of the physical exam now. Patient last seen here November 09, 2020 and referred for bilateral cataract surgery at that time returns today for comprehensive eye examination. He underwent bilateral cataract surgery early 2021 and also has a history of previous bilateral upper lid blepharoplasty. 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 Will order lubricating drops to be used up to 4 times a day each eye with Robert mask 1-2 times a day for 5 minutes. Bilateral pseudophakia looks perfect with well centered PCIOL's each eye with trace capsular haze. 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 Healthy disc appearance without pallor either eye with full confrontation evans to finger counting each eye he is managed by community endocrinology on bromocriptine. Plan: Patient education as noted above. Reviewed exam findings now Ordered new reading glasses today Order lubricating drops for mail out Order Robert mask to be used daily for dry eye disease Return in 12 to 15 months or sooner if need be. Ophthalmic medication reconciliation: Lubricating drops 4 times a day each eye as needed for dry eye disease Medication Reconciliation: Outpatient: Has the patient been taking medications as documented in the EMLR? YES: The patient has been taking medications as documented in the EMLR. Essential Medication List for Review used to complete this medication reconciliation. INCLUDED IN THIS LIST: Alphabetical list of active outpatient prescriptions dispensed from this VA (local) and dispensed from another VA or DoD facility (remote) as well as inpatient orders (local, pending and active), local clinic medications, locally documented non-VA medications, and local prescriptions that have or been discontinued in the past 90 days. - All changes in medications, including all non-VA/Herbal/OTC medications were entered into CPRS. Changes: Lubricating drops 4 times a day each eye - If there were any medications the patient should no longer take, they were discontinued. - The patient/caregiver was instructed to update this list, discard old lists, and take this list to the next appointment, whether with a VA or non-VA provider. JLV Link Data on this list may not be complete. Please check JLV. Allergies/ADRs (Tool #5) FACILITY ALLERGY/ADR -------- No Remote Allergy/ADR Data available for this patient [facility] [place] [facility] No Known Allergies Med Recon NoGlossary (Tool #1) INCLUDED IN THIS LIST: Alphabetical list of active outpatient prescriptions dispensed from this [place] (local) and dispensed from another [place] or [facility] facility (remote) as well as inpatient orders (local pending and active), local clinic medications, locally documented non-VA medications, and local prescriptions that have or been discontinued in the past 90 days. Non-VA Meds Last Documented On: Jul 23, 2023 NOTE The display of VA prescriptions dispensed from another [place] or [facility]D facility (remote) is limited to active outpatient prescription entries matched to National Drug File at the originating site and may not include some items such as investigational drugs, compounds, etc. NOT INCLUDED IN THIS LIST: Medications self-entered by the patient into personal health records (i.e. [employer]) are NOT included in this list. Non-VA medications documented outside this [place], remote inpatient orders (regardless of status) and remote clinic medications are NOT included in this list. The patient and provider must always discuss medications the patient is taking, regardless of where the medication was dispensed or obtained. Non-VA ASPIRIN 81MG CHEW TAB CHEW ONE TABLET BY MOUTH DAILY Non-VA BROMOCRIPTINE MESYLATE 0.8MG TAB TAKE THREE TABLETS BY MOUTH ONCE DAILY Non-VA CALCIUM 200MG (CA CITRATE-950MG) TAB TAKE THREE TABLETS BY MOUTH DAILY OUTPT CARBOXYMETHYLCELLULOSE NA 0.5% OPH SOLN (Status = Pending) INSTILL ONE DROP INTO EACH EYE FOUR TIMES A DAY Login Date: 09/25/23 Qty/Days Supply: Refills Ordered: 3 Non-VA CETIRIZINE HCL 10MG TAB TAKE ONE TABLET BY MOUTH DAILY Non-VA CHOLECALCIF 25MCG (D3-1,000UNIT) TAB TAKE ONE TABLET BY MOUTH DAILY Non-VA LEVOTHYROXINE NA (SYNTHROID) 125MCG TAB TAKE ONE TABLET BY MOUTH EVERY MORNING 30 MINUTES BEFORE BREAKFAST Indication: FOR THYROID OUTPT LISINOPRIL 5MG TAB (Status = Active) TAKE ONE TABLET BY MOUTH ONCE DAILY TO CONTROL BLOOD PRESSURE Rx# [id number] Last Released: 05/11/23 Qty/Days Supply: Rx Expiration Date: 01/27/24 Refills Remainin Indication: FOR HIGH BLOOD PRESSURE Non-VA LOSARTAN 100MG TAB TAKE ONE TABLET BY MOUTH ONCE DAILY Patient wants to buy from Non-VA pharmacy. Medication prescribed by Non-VA provider. Non-VA METOPROLOL SUCCINATE 50MG SA TAB TAKE ONE TABLET BY MOUTH ONCE DAILY Medication prescribed by Non-VA provider. Non-VA OTHER CAP/TAB TAKE 5 MG BY MOUTH DAILY bronocystine Non-VA TAMSULOSIN HCL 0.4MG CAP TAKE 1 CAPSULE BY MOUTH ONCE DAILY Medication prescribed by Non-VA provider. SUPPLIES Declines printed copy of medication list now. /johanny/ Grecia Gee OD CHIEF OF OPTOMETRY Signed: 09/25/2023 12:11 GRECIA GEE [facility] [place] [facility] Sep 25, 2023 07:53 AM OPTOMETRY NOTE: LOCAL TITLE: OPTOMETRY NOTE STANDARD TITLE: OPTOMETRY NOTE DATE OF NOTE: SEP 25, 2023@07:53 ENTRY DATE: SEP 25, 2023@07:53:30 AUTHOR: JM BLAKELY COSIGNER: GRECIA GEE URGENCY: STATUS: COMPLETED Active problems - Computerized Problem List is the source for the followin. Exposure to potentially hazardous substance 2. Sleep apnea 3. COVID-19 4. Iron deficiency anemia 5. Abdominal aortic aneurysm 6. Osteoarthritis 7. Prolactinoma 8. Gastroesophageal reflux disease 9. Benign hypertension 10. Hypothyroidism 11. Hypercholesterolemia 12. Allergic rhinitis Active Outpatient Medications (including Supplies): Active Outpatient Medications Status 1) LISINOPRIL [...] MOUTH ONCE ACTIVE DAILY 11 Total Medications Allergies: Patient has answered NKA All medications including those prescribed by outside VA's, community providers, and all OTC meds were reviewed and reconciled with patient to the best of their abilities. This 83 year old MALE is seen today for CEE Chief Complaint: Pt presents with complaints of haziness that he has noticed a couple of months ago. Pt did have cataract sx done in 2021 OU, reports vision has been very good until now. Ocular comfort is off , pt finds that he can feel his eyes more but denies pain/itching/burning. Finds that he frequently applies pressure to eyes with palms but this does not improve symptoms. Pt is using OTC readers +2.25, no distance correction. Denies use of ATs and compresses. No pertinent family hx reported today. OHx: -MGD and ocular rosacea OU -h/o bilateral blepharoplasty -residual ptosis OD -h/o herpes zoster September 2018 involving RUL without ocular involvement -Pseudophakia OU (-) Pain: (-) CAMEJO: (-) Diplopia: (-) Flashes: (x) Floaters: very rare and no change (-) Amaurosis Fugax/Tia's: (-) Eye Injury: (-) Eye Surgery: UL blepharoplasty OU, CE OU (-) TBI FOHx: (-) Glaucoma/ARMD/Blindness VITALS (most recent, as listed in the electronic record): B/P: 138/74 (07/23/2023 14:43) Pulse: 66 (07/23/2023 14:09) Temperature: 98.2 F [36.8 C] (07/23/2023 14:09) Weight: 210.1 lb [95.30 kg] (09/20/2023 11:17) Height: 68 in [172.7 cm] (07/23/2023 14:09) BMI: BMI: 32.0 PERTINENT LABS: HEMOGLOBIN A1C TREND Collection DT Spec HGBA1c 01/24/2023 10:46 BLOOD 5.0 07/24/2022 10:44 BLOOD 4.8 01/25/2022 08:39 BLOOD 4.8 07/27/2021 11:38 BLOOD 5.0 03/14/2021 09:49 BLOOD 5.3 (-) Smoker/Length of Time/PPD: quit in 1984 [facility] ( x )sc ( )cc OD: 20/20-2 OS: 20/20 Pupils: miotic and minimally reactive pupil OU, (-) APD OU EOMs: SAFE OU, (-)Pain/Diplopia CVF (facial, peripheral): FTFC OU Subjective Refraction: OD: plano sph 20/20-2 OS: plano sph 20/20 Add: +2.50 All the above performed by student, reviewed by attending Anterior segment: Performed by student, repeated by attending Lids: dermatochalasis OU, ptosis OD, MGD OU Conj: trace injection OU Cornea: arcus OU, temporal post-sx scars OU, almost absent tear meniscus OU AC: >1:1 T&N OU Iris: flat and clear OD, 5:00 atrophy OS Lens: PCIOL well-centered with trace PCO OU Tonometry: Goldmann Performed by student, reviewed by attending OD 8 mmHg OS 9 mmHg Time: 11:28am Fundus exam: Dilated: 11:30am Dilating Drops: 1GTT 1 % Tropicamide OU & 1GTT 2.5% Phenylephrine OU(Pt. ed. on side effects, dilation warning given and verbal consent obtained) Patient advised not to drive if they feel they have any symptoms which could affect their ability to drive safely. Patient advised not to engage in any activities which could put themselves or others at risk if they feel they have any symptoms which could affect their ability to perform those activities safely. Performed by student, repeated by attending Vit: clear OU C/D: 0.15/0.15 OD, 0.10/0.10 OS Disc: OD: pink and distinct OS: pink and distinct Macula: flat and clear OU PPole: OD: clear OS: clear Vessels: OD: 2/3 OS: 2/3 Periph: flat and intact (-)holes, tears, detachments 360 OU Assessment/Plan: 1. 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 H/O bilateral upper lid blepharoplasty with mild residual posis OD -no impact to visual function at present -continue to monitor yearly 2. Pseudophakia OU - trace PCO not impacting vision OU - monitor at E 3. 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 Presbyopia OU -Spec Rx updated, order 1 pair NVO per pt request -moniotr annually Return to Clinic 1 year or earlier BEA /johanny/ JM BLAKELY OPTOMETRY STUDENT Signed: 09/25/2023 16:34 /johanny/ Grecia Gee OD CHIEF OF OPTOMETRY Cosigned: 09/26/2023 07:24 JM BLAKELY [facility]
--- OUTSIDE RECORDS SUMMARY | 2024-03-21 08:08 | XMS_ITS | Encounter Summary ---
Author Name [facility] [place] [facility] [place] Address [address] [place] [id number] Care Team Providers Care Supervisor Phosphorus Processing Name Role Phone LEN MENDOZA Primary Care [...] PART B Sep 23, 2014 PART B [id number] [phone] HARMONY MCCALL JR PATIENT MEDICARE (WNR) MEDICARE (M) PART A July 25, 2007 PART A [id number] HARMONY MCCALL JR PATIENT MEDICARE (WNR) MEDICARE (M) PART B July 25, 2007 PART B [id number] [phone] HARMONY MCCALL JR PATIENT MEDICARE (WNR) MEDICARE (M) PART A July 25, 2007 PART A [id number] HARMONY MCCALL JR PATIENT [facility] MEDICAL EXPENSE (OPT/PROF ) [facility] * Jan 24, 2015 [id number] 18 CAROLE MCCALL SPOUSE Selected Encounter This section includes the information on record at [place] for the Encounter. Date/Time Encounter Type Encounter Description Reason Provider Source Aug 30, 2023 11:00 AM WEIGHT MGMT CLASS WEIGHT MGMT & MOVE! PROG - GRP ICD-10-CM Z68.29 Body mass index [BMI] 29.0-29.9, adult GORDON PATHAK [facility] Encounter Template Text not used by [facility] Assessments - Encounter Diagnoses This section includes the primary and secondary diagnoses documented for the Encounter. Date/Time Primary/Secondary Diagnosis Diagnosis Name Provider Source Sep 02, 2023 12:04 PM PRIMARY Body mass index [BMI] 29.0-29.9, adult GORDON PATHAK [place] Sep 02, 2023 12:04 PM SECONDARY Overweight GORDON PATHAK [place] Plan of Treatment: Future Appointments (+ 6 [...] AM [facility] Oct 04, 2023 11:00 AM AMBULATORY - NONE [place] Oct 11, 2023 11:00 AM AMBULATORY - NONE [place] Oct 18, 2023 11:00 AM AMBULATORY - NONE [place] Oct 23, 2023 09:00 AM [facility] Oct 25, 2023 11:00 AM [...] - NONE [place] [facility] [place] [facility] Dec 06, 2023 11:00 AM AMBULATORY - NONE [place] Dec 11, 2023 10:00 AM AMBULATORY - NONE [facility] [place] [facility] Dec 11, 2023 01:00 PM AMBULATORY - MEDICINE [facility] [place] [facility] Dec 13, 2023 11:00 AM [...] AUTHOR: GORDON PATHAK COSIGNER: URGENCY: STATUS: COMPLETED [place] participated in MOVE! Group Counseling via [facility] on August 30, 2023. The [place] was provided with information on [facility] and has given verbal consent to use group [facility] services for their healthcare. The [...] will be held on August @ 11:00am. [place]'s reported weight was 208.3 lbs. and lost 0.2 pounds since last group attended. Dx: Overweight Obesity E66.3 BMI 29.0-29.9 The session lasted for 1 hour in duration. /johanny/ GORDON PATHAK, Ph.D. CLINICAL PSYCHOLOGIST Signed: 09/02/2023 12:10 Receipt Acknowledged By: 09/04/2023 10:44 /johanny/ SANTIAGO KRAMER STAFF DIETITIAN GORDON PATHAK
--- OUTSIDE RECORDS SUMMARY | 2024-03-21 08:08 | XMS_ITS | Encounter Summary ---
Author Name [facility] [place] Address [address] [place] [address] Care Team Providers Care Water Treatment Operator Name Role Phone LEN MENDOZA Primary [...] PART B Sep 23, 2014 PART B [id number] HARMONY MCCALL JR PATIENT MEDICARE (WNR) MEDICARE (M) PART A July 25, 2007 PART A [id number] [id number] [phone] HARMONY MCCALL JR PATIENT MEDICARE (WNR) MEDICARE (M) PART B July 25, 2007 PART B [id number] HARMONY MCCALL JR PATIENT MEDICARE (WNR) MEDICARE (M) PART A July 25, 2007 PART A [id number] HARMONY MCCALL JR PATIENT [facility] MEDICAL EXPENSE (OPT/PROF ) [facility] * Jan 24, 2015 [id number] 18 CAROLE MCCALL SPOUSE Selected Encounter This section includes the information on record at [place] for the Encounter. Date/Time Encounter Type Encounter Description Reason Provider Source Sep 21, 2023 08:00 AM EXERCISE CLASS HEALTH/WELLBEING SRVS ICD-10-CM Z72.3 Lack of physical exercise TERRY COATES [place] Encounter Template Text not used by [place] Assessments - Encounter Diagnoses This section includes the primary and secondary diagnoses documented for the Encounter. Date/Time Primary/Secondary Diagnosis Diagnosis Name Provider Source Sep 21, 2023 10:42 AM PRIMARY Lack of physical exercise DAMON ONEILL [facility] Plan of Treatment: Future Appointments (+ [...] 25, 2023 11:30 AM AMBULATORY - MEDICINE [facility] Oct 04, 2023 11:00 AM AMBULATORY - NONE [place] Oct 11, 2023 11:00 AM AMBULATORY - NONE [place] Oct 18, 2023 11:00 AM AMBULATORY - NONE [place] Oct 23, 2023 09:00 AM AMBULATORY - NONE [place] [facility] [facility] Oct 25, 2023 11:00 AM AMBULATORY - [...] 03, 2023 02:00 PM AMBULATORY - NONE [place] [facility] Dec 06, 2023 11:00 AM AMBULATORY - NONE [place] Dec 11, 2023 10:00 AM AMBULATORY - NONE [place] [facility] [place] [facility] Dec 11, 2023 01:00 PM AMBULATORY - MEDICINE [facility] [place] [facility] Dec 13, 2023 11:00 AM AMBULATORY - NONE [place] Dec 20, 2023 11:00 AM AMBULATORY - NONE [place] Dec 25, 2023 10:00 AM AMBULATORY - NONE [place] [facility] [place] [facility] Dec 27, 2023 11:00 AM AMBULATORY - NONE [place] Jan 03, 2024 11:00 AM AMBULATORY - NONE [place] Social History: Smoking Status (Most current) [...] VA-TOBACCO FORMER USER [facility] [facility] Tobacco Use History This section includes a history of the smoking, or tobacco-related health factors, that were collected on or before the date of the Encounter. The data comes from the [place] facility where the Encounter took place. Date/Time Smoking Status/Tobacco Use Comment F acility Jan 26, 2023 01:30 PM VA-TOBACCO QUIT 15 YRS OR MORE [facility] [place] [facility] Jan 27, 2022 11:00 AM VA-TOBACCO FORMER USER [facility] [place] [facility] Jan 27, 2022 11:00 AM VA-TOBACCO QUIT 15 YRS OR MORE [facility] [place] [facility] Sep 17, 2020 09:00 AM VA-TOBACCO FORMER USER [facility] [facility] Sep 17, 2020 09:00 AM VA-TOBACCO QUIT 15 YRS OR MORE [facility] [place] [facility] Jun 04, 2019 02:57 PM VA-TOBACCO NEVER USED [facility] [place] [facility] Mar 14, 2018 11:23 AM VA-TOBACCO FORMER USER [facility] [facility] Mar 14, 2018 11:23 AM VA-TOBACCO QUIT 15 YRS OR MORE [facility] [place] [facility] Apr 04, 2017 12:30 PM QUIT TOBACCO USE > 7 YEARS AGO [facility] Apr 05, 2016 01:02 PM QUIT TOBACCO USE > 7 YEARS AGO quit in 1984 [facility] Encounter Notes: All associated encounter [...] COMPLETED GEROFIT VVC/VCM/VOD Telehealth Supervised Exercise NOTE [place] Provided informed consent to receive treatment via Telehealth., [place] mailed and has been made verbally aware of [facility] [place] practices. [place]'s Location: address on record unless specified below. Emergency Contact: on record unless specified below. [place] participated remotely in the [facility] exercise program today through [place] Virtual Water/Wastewater Project Manager. Activities were focused on progression of their individual exercise prescription (cardiorespiratory fitness training, strength training, etc.) and group-based exercise sessions to include, but not limited to: flexibility training, balance training & functional circuit training. Exercise participation was supervised remotely by [facility] staff and any questions/concerns were addressed with the patient. Modifications were made to programming as appropriate to suit Veterans individual needs, preferences, and whole health concerns. /johanny/ VIOLETTA FINK LICENSE REAMING PRESS OPERATOR Signed: 09/21/2023 10:48 DOUG ONEILL [facility]
--- OUTSIDE RECORDS SUMMARY | 2024-03-21 08:08 | XMS_ITS | Encounter Summary ---
Author Name [facility] [place] Address [address] [place] [id number] Care Team Providers Care Admissions Rn Name Role Phone LEN MENDOZA Primary [...] PART B Sep 23, 2014 PART B [id number] HARMONY MCCALL JR PATIENT MEDICARE (WNR) MEDICARE (M) PART A July 25, 2007 PART A [id number] HARMONY MCCALL JR PATIENT MEDICARE (WNR) MEDICARE (M) PART B July 25, 2007 PART B [id number] [id number] [phone] HARMONY MCCALL JR PATIENT MEDICARE (WNR) MEDICARE (M) PART A July 25, 2007 PART A [id number] HARMONY MCCALL JR PATIENT [facility] MEDICAL EXPENSE (OPT/PROF ) [facility] * Jan 24, 2015 [id number] CAROLE MCCALL SPOUSE Selected Encounter This section includes the information on record at [place] for the Encounter. Date/Time Encounter Type Encounter Description Reason Provider Source Sep 06, 2023 11:00 AM WEIGHT MGMT CLASS WEIGHT MGMT & MOVE! PROG - GRP ICD-10-CM E66.09 Other obesity due to excess calories GORDON PATHAK [facility] Encounter Template Text not used by VA Assessments - Encounter Diagnoses This section includes the primary and secondary diagnoses documented for the Encounter. Date/Time Primary/Secondary Diagnosis Diagnosis Name Provider Source Sep 07, 2023 06:41 PM PRIMARY Other obesity due to excess calories GORDON PATHAK Sep 07, 2023 06:41 PM SECONDARY Body mass index [BMI] 30.0-30.9, adult GORDON PATHAK Plan of Treatment: Future Appointments [...] 25, 2023 11:30 AM AMBULATORY - MEDICINE [facility] Oct 04, 2023 11:00 AM AMBULATORY - NONE [place] Oct 11, 2023 11:00 AM AMBULATORY - NONE [place] Oct 18, 2023 11:00 AM AMBULATORY - NONE [place] Oct 23, 2023 09:00 AM AMBULATORY - NONE [facility] Oct 25, 2023 11:00 AM AMBULATORY - [...] [place]TRL [place] [facility] Dec 06, 2023 11:00 AM AMBULATORY - NONE [place] Dec 11, 2023 10:00 AM AMBULATORY - NONE [place] [facility] [place] [facility] Dec 11, 2023 01:00 PM AMBULATORY - MEDICINE [facility] [place] [facility] Dec 13, 2023 11:00 AM AMBULATORY - NONE [place] Dec 20, 2023 11:00 AM AMBULATORY - NONE [place] Dec 25, 2023 10:00 AM AMBULATORY - NONE [facility] [place] [facility] Vital Signs: All taken on the encounter date This section contains inpatient and outpatient Vital Signs collected on the date of the Encounter. Date/Time Temperature Pulse Blood Pressure Respiratory Rate SP02 Pain Height Weight Body Mass Index Source Sep 06, 2023 02:19 PM 209.5 32 [place] Encounter Notes: All associated encounter notes This section contains the clinical notes associated to the Encounter. Date/Time Encounter Note(s) Provider Source Sep 07, 2023 06:29 PM MOVE NOTE: LOCAL TITLE: WEIGHT MANAGEMENT/MOVE! OUTPATIENT GROUP NOTE STANDARD TITLE: MOVE NOTE DATE OF NOTE: SEP 07, 2023@18:29 ENTRY DATE: SEP 07, 2023@18:29:38 AUTHOR: GORDON PATHAK COSIGNER: URGENCY: STATUS: COMPLETED participated in MOVE! Group Counseling via [facility] on September 06, 2023. The was provided with information on [facility] and has given verbal [...] Name [ ] Address Veterans attended the [facility] MOVE! group session on this date. MOVE! is a program designed to provide education about weight management skills to overweight and obese Veterans. Group members combined to gained 1.5 pounds since their last attended group. Group members began today's discussion talking about food diaries and the differences between using an rasheed on your phone that gives you direct feedback about calories and a paper log that some described as more beneficial by making one work harder. Veterans discussed the benefits that some have received from participating in physical therapy regarding their pain level. Others talked about recent conversations that they had with their primary care provider concerning the start of weight loss medications. Group members shared their individual goals for the next week. The next [facility] MOVE! group meeting will be held on August @ 11:00am. [place]'s reported weight was 209.5 lbs. and gained 1.2 pounds since last group attended. Dx: Obesity d/t Excess Calories Obesity E66.09 BMI 30.0-30.9 The session lasted for 1 hour in duration. /es/ GORDON PATHAK, Ph.D. CLINICAL PSYCHOLOGIST Signed: 09/07/2023 18:46 GORDON PATHAK
--- OUTSIDE RECORDS SUMMARY | 2024-03-21 08:08 | XMS_ITS | Encounter Summary ---
Author Name [place] Address [address] [place] [address] Care Team Providers Care Diorama Model Maker Name Role Phone LEN MENDOZA Primary [...] PART B Sep 23, 2014 PART B [id number] HARMONY MCCALL JR PATIENT MEDICARE (WNR) MEDICARE (M) PART A July 25, 2007 PART A [id number] [phone] HARMONY MCCALL JR PATIENT MEDICARE (WNR) MEDICARE (M) PART B July 25, 2007 PART B [id number] HARMONY MCCALL JR PATIENT MEDICARE (WNR) MEDICARE (M) PART A July 25, 2007 PART A [id number] [phone] [id number] HARMONY MCCALL JR PATIENT [facility] MEDICAL EXPENSE (OPT/PROF ) [facility] * Jan 24, 2015 [id number] 18 CAROLE MCCALL SPOUSE Selected Encounter This section includes the information on record at [place] for the Encounter. Date/Time Encounter Type Encounter Description Reason Provider Source Sep 07, 2023 11:02 AM EXERCISE CLASS HEALTH/WELLBEING SRVS ICD-10-CM Z72.3 Lack of physical exercise JANIE LAZCANO [facility] Encounter Template Text not used by [place] Assessments - Encounter Diagnoses This section includes the primary and secondary diagnoses documented for the Encounter. Date/Time Primary/Secondary Diagnosis Diagnosis Name Provider Source Sep 07, 2023 11:22 AM PRIMARY Lack of physical exercise [facility] Plan of Treatment: Future Appointments [...] 25, 2023 11:30 AM AMBULATORY - [facility] [place] [facility] Oct 04, 2023 11:00 AM AMBULATORY - NONE [place] Oct 11, 2023 11:00 AM AMBULATORY - NONE [place] Oct 18, 2023 11:00 AM AMBULATORY - NONE [place] Oct 23, 2023 09:00 AM [facility] [place] [facility] Oct 25, 2023 11:00 AM AMBULATORY - [...] 03, 2023 02:00 PM AMBULATORY - NONE [place] [facility] Dec 06, 2023 11:00 AM AMBULATORY - NONE [place] Dec 11, 2023 10:00 AM AMBULATORY - NONE [facility] [place] [facility] Dec 11, 2023 01:00 PM AMBULATORY - MEDICINE [facility] [place] [facility] Dec 13, 2023 11:00 AM AMBULATORY - NONE [place] Dec 20, 2023 11:00 AM AMBULATORY - NONE [place] Dec 25, 2023 10:00 AM AMBULATORY - NONE [facility] [place] [facility] Social History: Smoking Status (Most current) and [...] PM VA-TOBACCO QUIT 15 YRS OR MORE [place] [facility] Tobacco Use History This section includes a history of the smoking, or tobacco-related health factors, that were collected on or before the date of the Encounter. The data comes from the [place] facility where the Encounter took place. Date/Time Smoking Status/Tobacco Use Comment F acility Jan 26, 2023 01:30 PM VA-TOBACCO QUIT 15 YRS OR MORE [facility] [place] [facility] Jan 27, 2022 11:00 AM VA-TOBACCO FORMER USER [facility] [place] [facility] Jan 27, 2022 11:00 AM VA-TOBACCO QUIT 15 YRS OR MORE [facility] [place] [facility] Sep 17, 2020 09:00 AM VA-TOBACCO FORMER USER [facility] [place] [facility] Sep 17, 2020 09:00 AM VA-TOBACCO QUIT 15 YRS OR MORE [facility] [place] [facility] Jun 04, 2019 02:57 PM VA-TOBACCO NEVER USED [facility] [place] [facility] Mar 14, 2018 11:23 AM VA-TOBACCO FORMER USER [facility] [place] [facility] Mar 14, 2018 11:23 AM VA-TOBACCO QUIT 15 YRS OR MORE [facility] [place] [facility] Apr 04, 2017 12:30 PM QUIT TOBACCO USE > 7 YEARS AGO [facility] Apr 05, 2016 01:02 PM QUIT TOBACCO USE > 7 YEARS AGO quit in 1984 [facility] Encounter Notes: All associated encounter notes This section contains the clinical notes associated to the Encounter. Date/Time Encounter Note(s) Provider Source Sep 07, 2023 11:15 AM GERIATRIC MEDICINE NOTE: LOCAL TITLE: GEROFIT VCM/VVC/VOD TELEHEALTH SUPERVISED EXERCISE STANDARD TITLE: GERIATRIC MEDICINE NOTE DATE OF NOTE: SEP 07, 2023@11:15 ENTRY DATE: SEP 07, 2023@11:16:12 AUTHOR: JANIE LAZCANO EXP COSIGNER: URGENCY: STATUS: COMPLETED [place] Provided informed consent to receive treatment via Telehealth., mailed and has been made verbally aware of [facility] [place] practices. [place]'s Location: address on record unless specified below. Emergency Contact: on record unless specified below. [place] participated remotely in the [facility] exercise program today through [place] Virtual Apprentice/Lineman. Activities were focused on progression of their individual exercise prescription (cardiorespiratory fitness training, strength training, etc.) and group-based exercise sessions to include, but not limited to: flexibility training, balance training & functional circuit training. Exercise participation [facility] and any questions/concerns were addressed with the patient. Modifications were made to programming as appropriate to suit Veterans individual needs, preferences, and whole health concerns. /es/ Janie Lazcano PT,DPT PHYSICAL THERAPIST Signed: 09/07/2023 11:26 JANIE LAZCANO [facility]
--- OUTSIDE RECORDS SUMMARY | 2024-03-21 08:08 | XMS_ITS | Encounter Summary ---
Author Name [facility] [place] Address [address] [place] [address] Care Team Providers Care Tool Analyst Name Role Phone LEN MENDOZA Primary Care [...] PART B Sep 23, 2014 PART B [id number] HARMONY MCCALL JR PATIENT MEDICARE (WNR) MEDICARE (M) PART A July 25, 2007 PART A [id number] HARMONY MCCALL JR PATIENT MEDICARE (WNR) MEDICARE (M) PART B July 25, 2007 PART B [id number] HARMONY MCCALL JR PATIENT MEDICARE (WNR) MEDICARE (M) PART A July 25, 2007 PART A [id number] HARMONY MCCALL JR PATIENT [facility] MEDICAL EXPENSE (OPT/PROF ) [facility] * Jan 24, 2015 [id number] 18 CAROLE MCCALL SPOUSE Selected Encounter This section includes the information on record at [place] for the Encounter. Date/Time Encounter Type Encounter Description Reason Provider Source Aug 27, 2023 08:00 AM EXERCISE CLASS HEALTH/WELLBEING SRVS ICD-10-CM Z72.3 Lack of physical exercise DAMON ONEILL I[facility] Encounter Template Text not used by [place] Assessments - Encounter Diagnoses This section includes the primary and secondary diagnoses documented for the Encounter. Date/Time Primary/Secondary Diagnosis Diagnosis Name Provider Source Aug 27, 2023 10:48 AM PRIMARY Lack of physical exercise [facility]ON ONEILL [facility] Plan of Treatment: Future Appointments [...] 25, 2023 11:30 AM AMBULATORY - MEDICINE [facility] [place] [facility] Oct 04, 2023 11:00 AM AMBULATORY - NONE [place] Oct 11, 2023 11:00 AM AMBULATORY - NONE [place] Oct 18, 2023 11:00 AM AMBULATORY - NONE [place] Oct 23, 2023 09:00 AM AMBULATORY - NONE [place] [facility] [place] [facility] Oct 25, 2023 11:00 AM AMBULATORY [...] AMBULATORY - NONE [facility] [place] [facility] Dec 06, 2023 11:00 AM AMBULATORY - NONE [place] Dec 11, 2023 10:00 AM AMBULATORY - NONE [facility] [place] [place] [facility] Dec 11, 2023 01:00 PM AMBULATORY [facility] MEDICINE [facility] [place] [place] [facility] Dec 13, 2023 11:00 AM AMBULATORY - NONE [place] Social History: Smoking Status (Most current) and Tobacco Use (All prior to encounter date) This section includes the most current, and the historical, smoking and tobacco- related health factors from the [place] facility where the Encounter took place. Current Smoking Status This section includes the most current smoking, or tobacco-related health factor, from the [place] facility where the Encounter took place. Date/Time Current Smoking Status Comment Facil ity Jan 26, 2023 01:30 PM VA-TOBACCO FORMER USER [facility] [place] [place] [facility] Tobacco Use History This section includes a history of the smoking, or tobacco-related health factors, that were collected on or before the date of the Encounter. The data comes from the [place] facility where the Encounter took place. Date/Time Smoking Status/Tobacco Use Comment F acility Jan 26, 2023 01:30 PM VA-TOBACCO QUIT 15 YRS OR MORE [facility] [place] [place] [facility] Jan 27, 2022 11:00 AM VA-TOBACCO FORMER USER [facility] [place] [place] [facility] Jan 27, 2022 11:00 AM VA-TOBACCO QUIT 15 YRS OR MORE [facility] [place] [facility] Sep 17, 2020 09:00 AM VA-TOBACCO FORMER USER [facility] [place] [facility] Sep 17, 2020 09:00 AM VA-TOBACCO QUIT 15 YRS OR MORE [facility] [place] [facility] Jun 04, 2019 02:57 PM VA-TOBACCO NEVER USED [facility] [place] [facility] Mar 14, 2018 11:23 AM VA-TOBACCO FORMER USER [facility] [place] [facility] Mar 14, 2018 11:23 AM VA-TOBACCO QUIT 15 YRS OR MORE [facility] [place] [facility] Apr 04, 2017 12:30 PM QUIT TOBACCO USE > 7 YEARS AGO [facility] Apr 05, 2016 01:02 PM QUIT TOBACCO USE > 7 YEARS AGO quit in 1984 [facility] Encounter Notes: All associated encounter notes This section contains the clinical notes associated to the Encounter. Date/Time Encounter Note(s) Provider Source Aug 27, 2023 10:47 AM GERIATRIC MEDICINE NOTE: LOCAL TITLE: GEROFIT VCM/VVC/VOD TELEHEALTH SUPERVISED EXERCISE STANDARD TITLE: GERIATRIC MEDICINE NOTE DATE OF NOTE: AUG 27, 2023@10:47 ENTRY DATE: AUG 27, 2023@10:47:26 AUTHOR: DOUG ONEILL EXP COSIGNER: URGENCY: STATUS: COMPLETED GEROFIT VVC/VCM/VOD Telehealth Supervised Exercise NOTE Provided informed consent to receive treatment via Telehealth., mailed and has been made verbally aware of [facility]health [facility] [place] practices. [place]'s Location: address on record unless specified below. Emergency Contact: on record unless specified below. [place] participated remotely in the [facility] exercise program today through [place] [employer]. Activities were focused on progression of their individual exercise prescription (cardiorespiratory fitness training, strength training, etc.) and group-based exercise sessions to include, but not limited to: flexibility training, balance training & functional circuit training. Exercise participation was supervised remotely [facility] staff and any questions/concerns were addressed with the patient. Modifications were made to programming as appropriate to suit Veterans individual needs, preferences, and whole health concerns. /johanny/ VIOLETTA FINK LICENSE CIAIO LUMITE INJECTOR Signed: 08/27/2023 10:57 DOUG ONEILL [facility]
--- OUTSIDE RECORDS SUMMARY | 2024-03-21 08:08 | XMS_ITS | Encounter Summary ---
Author Name [place] Address [address] [place] [address] Care Team Providers Care Director Motion Picture Name Role Phone LEN MENDOZA Primary Care [...] PART B Sep 23, 2014 PART B [id number] HARMONY MCCALL JR PATIENT MEDICARE (WNR) MEDICARE (M) PART A July 25, 2007 PART A [id number] [phone] HARMONY MCCALL JR PATIENT MEDICARE (WNR) MEDICARE (M) PART B July 25, 2007 PART B [id number] [phone] HARMONY MCCALL JR PATIENT MEDICARE (WNR) MEDICARE (M) PART A July 25, 2007 PART A [id number] HARMONY MCCALL JR PATIENT [facility] MEDICAL EXPENSE (OPT/PROF ) [facility] * Jan 24, 2015 [id number] 18 CAROLE MCCALL SPOUSE Selected Encounter This section includes the information on record at [place] for the Encounter. Date/Time Encounter Type Encounter Description Reason Provider Source Aug 31, 2023 10:36 AM EXERCISE CLASS HEALTH/WELLBEING SRVS ICD-10-CM Z72.3 Lack of physical exercise JANIE LAZCANO [facility] Encounter Template Text not used by [place] Assessments - Encounter Diagnoses This section includes the primary and secondary diagnoses documented for the Encounter. Date/Time Primary/Secondary Diagnosis Diagnosis Name Provider Source Aug 31, 2023 10:45 AM PRIMARY Lack of physical exercise JANIE LAZCANO [facility] Plan of Treatment: Future Appointments [...] 2023 11:30 AM [facility] Oct 04, 2023 11:00 AM AMBULATORY - NONE [place] Oct 11, 2023 11:00 AM AMBULATORY - NONE [place] Oct 18, 2023 11:00 AM AMBULATORY - NONE [place] Oct 23, 2023 09:00 [facility] Oct 25, 2023 11:00 AM AMBULATORY - [...] PM VA-TOBACCO QUIT 15 YRS OR MORE [place] [facility] [place] [facility] Tobacco Use [...] MORE [facility] [facility] Apr 04, 2017 12:30 PM QUIT TOBACCO USE > 7 YEARS AGO [facility] Apr 05, 2016 01:02 PM QUIT TOBACCO USE > 7 YEARS AGO quit in 1984 [facility] Encounter Notes: All associated encounter notes This section contains the clinical notes associated to the Encounter. Date/Time Encounter Note(s) Provider Source Aug 31, 2023 10:41 AM GERIATRIC MEDICINE NOTE: LOCAL TITLE: GEROFIT VCM/VVC/VOD TELEHEALTH SUPERVISED EXERCISE STANDARD TITLE: GERIATRIC MEDICINE NOTE DATE OF NOTE: AUG 31, 2023@10:41 ENTRY DATE: AUG 31, 2023@10:41:57 AUTHOR: JANIE LAZCANO EXP COSIGNER: URGENCY: STATUS: COMPLETED [place] Provided informed consent to receive treatment via Telehealth., [place] mailed and has been made verbally aware of [facility] [place] practices. [place]'s Location: address on record unless specified below. Emergency Contact: on record unless specified below. [place] participated remotely in the [facility] exercise program today through [place] [employer] Eng[employer]. Activities were focused on progression of their individual exercise prescription (cardiorespiratory fitness training, strength training, etc.) and group-based exercise sessions to include, but not limited to: flexibility training, balance training & functional circuit training. Exercise participation was supervised remotely by [facility] staff and any questions/concerns were addressed with the patient. Modifications were made to programming as appropriate to suit Veterans individual needs, preferences, and whole health concerns. /johanny/ Janie Lazcano PT,DPT PHYSICAL THERAPIST Signed: 08/31/2023 11:06 JANIE LAZCANO [facility]
--- OUTSIDE RECORDS SUMMARY | 2024-03-21 08:08 | XMS_ITS | Encounter Summary ---
Author Name [place] Address [address] [place] [address] Care Team Providers Care Thread Spinner Name Role Phone LEN MENDOZA Primary Care [...] PART B Sep 23, 2014 PART B [id number] [id number] HARMONY MCCALL JR PATIENT MEDICARE (WNR) MEDICARE (M) PART A July 25, 2007 PART A [id number] [id number] HARMONY MCCALL JR PATIENT MEDICARE (WNR) MEDICARE (M) PART B July 25, 2007 PART B [id number] [id number] [phone] HARMONY MCCALL JR PATIENT MEDICARE (WNR) MEDICARE (M) PART A July 25, 2007 PART A [id number] HARMONY MCCALL JR PATIENT [facility] MEDICAL EXPENSE (OPT/PROF ) [facility] * Jan 24, 2015 [id number] 18 CAROLE MCCALL SPOUSE Selected Encounter This section includes the information on record at [place] for the Encounter. Date/Time Encounter Type Encounter Description Reason Provider Source Sep 05, 2023 08:00 AM EXERCISE CLASS HEALTH/WELLBEING SRVS ICD-10-CM Z72.3 Lack of physical exercise DAMON ONEILL I[facility] Encounter Template Text not used by [place] Assessments - Encounter Diagnoses This section includes the primary and secondary diagnoses documented for the Encounter. Date/Time Primary/Secondary Diagnosis Diagnosis Name Provider Source Sep 05, 2023 11:12 AM PRIMARY Lack of physical exercise DAMON ONEILL [facility] Plan of Treatment: Future Appointments (+ 6 [...] 25, 2023 11:30 AM AMBULATORY - MEDICINE [facility] Oct 04, 2023 11:00 AM AMBULATORY - NONE [place] Oct 11, 2023 11:00 AM AMBULATORY - NONE [place] Oct 18, 2023 11:00 AM AMBULATORY - NONE [place] Oct 23, 2023 09:00 AM [facility] Oct 25, 2023 11:00 AM [...] [facility] [place] [facility] Dec 06, 2023 11:00 AM AMBULATORY - NONE [place] Dec 11, 2023 10:00 AM AMBULATORY - NONE [facility] [place] [facility] Dec 11, 2023 01:00 PM AMBULATORY - MEDICINE [facility] [place] [place] [facility] Dec 13, 2023 11:00 AM [...] [facility] [place] [facility] Tobacco Use History This section [...] [facility] [place] [facility] Jan 27, 2022 11:00 AM VA-TOBACCO FORMER USER [facility] [place] [place] [facility] Jan 27, 2022 11:00 AM VA-TOBACCO QUIT 15 YRS OR MORE [facility] [place] [place] [facility] Sep 17, 2020 09:00 AM VA-TOBACCO FORMER USER [facility] [place] [facility] Sep 17, 2020 09:00 AM VA-TOBACCO QUIT 15 YRS OR MORE [facility] [place] [facility] Jun 04, 2019 02:57 PM VA-TOBACCO NEVER USED [facility] [place] [facility] Mar 14, 2018 11:23 AM VA-TOBACCO FORMER USER [facility] [place] [facility] Mar 14, 2018 11:23 AM VA-TOBACCO QUIT 15 YRS OR MORE [facility] [place] [place] [facility] Apr 04, 2017 12:30 PM QUIT TOBACCO USE > 7 YEARS AGO [facility] Apr 05, 2016 01:02 PM QUIT TOBACCO USE > 7 YEARS AGO quit in 1984 [facility] Encounter Notes: All associated encounter notes This section contains the clinical notes associated to the Encounter. Date/Time Encounter Note(s) Provider Source Sep 05, 2023 11:10 AM GERIATRIC MEDICINE NOTE: LOCAL TITLE: GEROFIT VCM/VVC/VOD TELEHEALTH SUPERVISED EXERCISE STANDARD TITLE: GERIATRIC MEDICINE NOTE DATE OF NOTE: SEP 05, 2023@11:10 ENTRY DATE: SEP 05, 2023@11:11:05 AUTHOR: DOUG ONEILL EXP COSIGNER: URGENCY: STATUS: COMPLETED GEROFIT VVC/VCM/VOD Telehealth Supervised Exercise NOTE Provided informed consent to receive treatment via Telehealth., mailed and has been made verbally aware of [facility]health Group [place] practices. [place]'s Location: address on record unless specified below. Emergency Contact: on record unless specified below. [place] participated remotely in the Gerofit exercise program today through [place] Virtual Mammalogy Teacher. Activities were focused on progression of their individual exercise prescription (cardiorespiratory fitness training, strength training, etc.) and group-based exercise sessions to include, but not limited to: flexibility training, balance training & functional circuit training. Exercise participation was supervised remotely by [facility] staff and any questions/concerns were addressed with the patient. Modifications were made to programming as appropriate to suit Veterans individual needs, preferences, and whole health concerns. /johanny/ VIOLETTA FINK LICENSE CONDUCTOR ORCHESTRA Signed: 09/05/2023 11:20 DOUG ONEILL [facility]
--- OUTSIDE RECORDS SUMMARY | 2024-03-21 08:09 | XMS_ITS | Encounter Summary ---
Author Name Department [place] Address [address] [place] [address] Care Team Providers Care Job Trainer Name Role Phone LEN MENDOZA Primary Care [...] PART B Sep 23, 2014 PART B [id number] HARMONY MCCALL JR PATIENT MEDICARE (WNR) MEDICARE (M) PART A July 25, 2007 PART A [id number] [phone] HARMONY MCCALL JR PATIENT MEDICARE (WNR) MEDICARE (M) PART B July 25, 2007 PART B [id number] HARMONY MCCALL JR PATIENT MEDICARE (WNR) MEDICARE (M) PART A July 25, 2007 PART A [id number] [phone] [id number] HARMONY MCCALL JR PATIENT [facility] MEDICAL EXPENSE (OPT/PROF ) [facility] * Jan 24, 2015 [id number] 18 CAROLE MCCALL SPOUSE Selected Encounter This section includes the information on record at [place] for the Encounter. Date/Time Encounter Type Encounter Description Reason Provider Source Feb 07, 2024 11:00 AM HLTH BHV IVNTJ GRP EA ADDL WEIGHT MGMT & MOVE! PROG - GRP ICD-10-CM Z68.30 Body mass index [BMI] 30.0-30.9, adult GORDON PATHAK [facility] Encounter Template Text not used by [place] Assessments - Encounter Diagnoses This section includes the primary and secondary diagnoses documented for the Encounter. Date/Time Primary/Secondary Diagnosis Diagnosis Name Provider Source Feb 08, 2024 12:42 PM PRIMARY Body mass index [BMI] 30.0-30.9, adult GORDON PATHAK Feb 08, 2024 12:42 PM SECONDARY Obesity, class 1 GORDON PATHAK Plan of Treatment: Future Appointments (+ 6 months) and Future Tests (+/- 45 days) The Plan of Treatment section includes future care activities for the patient [facility] [place] [facility]. This section includes future appointments and [...] 26, 2024 08:30 AM [facility] Feb 26, 2024 08:30 AM AMBULATORY - MEDICINE [facility] Feb 28, 2024 11:00 AM AMBULATORY - NONE [place] Mar 06, 2024 11:00 AM AMBULATORY - NONE [place] Mar 13, 2024 11:00 AM AMBULATORY - NONE [place] Jul 21, 2024 10:00 AM [facility] Active, Pending, and Scheduled Orders This section includes a listing of several types of active, pending, and scheduled orders, including clinic medications orders, diagnostic test orders, procedure orders and consult orders; where the start date of the order is 45 days before the date of the Encounter or 45 days after the date of theEncounter. The data comes from all [facility]. Test Date/Time Test Type Test Details Facility Name Jan 10, 2024 12:00 AM Laboratory - Chemi stry Order CBC BLOOD (LAV-BLOOD) [facility] Jan 10, 2024 12:00 AM Laboratory - Chemi stry Order BASIC METABOLIC PANEL (non-fasting) BLOOD (SST-SERUM) [facility] Jan 10, 2024 12:00 AM Laboratory - Chemi stry Order LIPID PANEL, NON FASTING BLOOD (SST-SERUM) [facility] Jan 10, 2024 12:00 AM Laboratory - Chemi stry Order LIVER FUNCTION BLOOD (SST-SERUM) [facility] Jan 10, 2024 12:00 AM Laboratory - Chemi stry Order TSH BLOOD (SST-SERUM) [facility] Jan 10, 2024 12:00 AM Laboratory - Chemi stry Order FERRITIN BLOOD (SST-SERUM) [facility] Jan 10, 2024 12:00 AM Laboratory - Chemi stry Order VITAMIN B12 BLOOD (SST-SERUM) [facility] Jan 10, 2024 12:00 AM Laboratory - Chemi stry Order IRON & TIBC PANEL BLOOD (SST-SERUM) [facility] Vital Signs: All taken on the [...] COMPLETED participated in MOVE! Group Counseling via [facility] on February 07, 2024. The was provided with information on [facility] and has given verbal consent to use group [facility] services for their healthcare. The copy of the Group Telehealth Agreement has been mailed to the [place]. The Veterans location/emergency contact number were confirmed. The Emergency Call Relay Center ([phone]) was available. The visit was locked for security and privacy. identified with 2 identifiers: [ ] Full Name [ ] Address Veterans attended the [facility] MOVE! group session on this date. MOVE! is a program designed to provide education about weight management skills to overweight and obese Veterans. Group members combined to gain 1.4 pounds since their last attended group. Group members began talking about poor food choices that they made this past week during [place]'s Day with some partaking in free meals in restaurants. The trend of weight gain for the group continued this past week. Veterans shared that they think they will continue this pattern through the months to come. Facilitators shared that some of our most successful groups occurred during the winter months and reminded Veterans to focus on what they can control-- specifically, exercising and eating healthy. Facilitators reminded Veterans about the importance of modeling meals and snacks off of the Healthy Plate model which recommends a half of the plate contain non-starchy vegetables. The next [facility] MOVE! group meeting will be held on January @ 11:00am. 's reported weight was 212.1 lbs. and gained 0.8 pounds since last group attended. Dx: Obesity Class 1 BMI 30.0-30.9 The session lasted for 1 hour in duration. /johanny/ GORDON PATHAK, Ph.D. CLINICAL PSYCHOLOGIST Signed: 02/08/2024 12:55 Receipt Acknowledged By: 02/11/2024 08:09 /johanny/ SANTIAGO KRAMER STAFF DIETITIAN GORDON PATHAK
--- OUTSIDE RECORDS SUMMARY | 2024-03-21 08:09 | XMS_ITS | Encounter Summary ---
Author Name [facility] [place] Address [address] [place] [address] Care Team Providers Care Marine Oil Terminal Superintendent Name Role Phone LEN MENDOZA Primary Care [...] PART B Sep 23, 2014 PART B [id number] HARMONY MCCALL JR PATIENT MEDICARE (WNR) MEDICARE (M) PART A July 25, 2007 PART A [id number] HARMONY MCCALL JR PATIENT MEDICARE (WNR) MEDICARE (M) PART B July 25, 2007 PART B [id number] [id number] HARMONY MCCALL JR PATIENT MEDICARE (WNR) MEDICARE (M) PART A July 25, 2007 PART A [id number] HARMONY MCCALL JR [facility]IENT [facility] (OPT/PROF ) [facility] [place] * Jan 24, 2015 [id number] 18 CAROLE MCCALL SPOUSE Selected Encounter This section includes the information on record at [place] for the Encounter. Date/Time Encounter Type Encounter Description Reason Provider Source Mar 28, 2023 11:32 PM SLEEP STUDY UNATT&RESP EFFT SLEEP STUDY ICD-10-CM G47.33 Obstructive sleep apnea (adult) (pediatric) CARLOS TONEY Erin Encounter Template Text not used by [place] Assessments - Encounter Diagnoses This section includes the primary and secondary diagnoses documented for the Encounter. Date/Time Primary/Secondary Diagnosis Diagnosis Name Provider Source Mar 28, 2023 11:32 PM PRIMARY Obstructive sleep apnea (adult) (pediatric) [facility] Plan of Treatment: Future Appointments (+ 6 [...] 10, 2023 10:00 AM AMBULATORY - NONE [place] [facility] [place] [facility] Apr 12, 2023 11:00 AM AMBULATORY [...] Encounter Note(s) Provider Source Mar 28, 2023 11:32 PM SLEEP MEDICINE CON LORAT: LOCAL TITLE: Sleep Study Interpretation Consult Note STANDARD TITLE: SLEEP MEDICINE CONSULT DATE OF NOTE: MAR 28, 2023@23:32:27 ENTRY DATE: MAR 28, 2023@23:32:28 AUTHOR: VILMA TONEY COSIGNER: URGENCY: STATUS: COMPLETED [facility] HOME SLEEP APNEA TEST- NOX T3 DEVICE IDENTIFICATION: Name (Last, First): HARMONY MCCALL : 1940 Study date: 03/06/2023 Requesting Provider: LEN MENDOZA STUDY TECHNIQUE AND DEFINITIONS: This home sleep apnea test was performed using an unattended type 3 portable monitor with at least 4 recorded channels of airflow, respiratory excursion, oximetry, and pulse rate. Additional recorded channels may include actigraphy, body position, and snore sensor. - Apnea: drop in peak signal excursion by >=90% of pre-event baseline for >=10 seconds. - Hypopnea: a drop in peak signal excursion by >=30% of pre-event baseline for >=10 seconds associated with either a >=3% or >=3% oxygen desaturation. - Respiratory Event Index-3% (JENNIFER-3%) =number of apneas & hypopneas (using >=3% desaturation) per hour of valid monitoring time (MT). - Oxygen Desaturation Index-3% (NEWTON-3%) = number of >=3% oxygen desaturations per hour of MT. PATIENT HISTORY: 82 year old Male with [...] of recording time with sufficient technical quality. RECOMMENDATIONS: - 1. Current [employer] recommendations for treatment of obstructive sleep apnea includes 1) positive airway pressure (PAP) as initial therapy, and alternative therapy may include oral appliance therapy; ENT evaluation for upper airway surgery; Inspire/hypoglossal nerve stimulator therapy. Treatment also includes weight reduction if BMI is elevated, avoidance of sleeping in the supine position and reduction of alcohol and medications that contribute to upper airway relaxation. Given history of HTN and patient subjective report of daytime tiredness, treatment of mild YARELI is recommended. Can offer treatment with APAP 5-20 cm H20. Close clinical follow up is recommended if started on APAP to assess response to APAP as well as follow up of download data to ensure efficacy and compliance with this therapy. 3. Since this receives his care in the [facility] system, ordering of the CPAP unit should be done by the referring [place] provider. Follow up can occur in [place]. 4. Patient can also be seen in sleep clinic for follow up of sleep disorder,discussion of sleep study and guidance of treatment options. He can be seen at the [facility] (CVT) sleep study clinic or at [facility] in [place]. Please place the sleep clinic consult if is to be seen. 5. Patient should avoid sleeping in supine position. 6. The patient should be instructed to avoid driving and not engage in operating heavy machinery equipment when sleepy, drowsy or fatigued. 7. A copy of this report will be forwarded to the referring provider, LEN MENDOZA/ VILMA TONEY MD ATTENDING Signed: 03/28/2023 23:32 VILMA TONEY [facility]
--- OUTSIDE RECORDS SUMMARY | 2024-03-21 08:09 | XMS_ITS | Encounter Summary ---
Author Name [facility] [place] Address [address] [place] [id number] Care Team Providers Care Spice Fumigator Name Role Phone LEN MENDOZA Primary Care [...] PART B Sep 23, 2014 PART B [id number] [id number] [phone] HARMONY MCCALL JR PATIENT MEDICARE (WNR) MEDICARE (M) PART A July 25, 2007 PART A [id number] HARMONY MCCALL JR PATIENT MEDICARE (WNR) MEDICARE (M) PART B July 25, 2007 PART B [id number] [id number] HARMONY MCCALL JR PATIENT MEDICARE (WNR) MEDICARE (M) PART A July 25, 2007 PART A [id number] [phone] [id number] HARMONY MCCALL JR PATIENT [facility] MEDICAL EXPENSE (OPT/PROF ) [facility] [place] * Jan 24, 2015 [id number] [id number] 18 CAROLE MCCALL SPOUSE Selected Encounter This section includes the information on record at [place] for the Encounter. Date/Time Encounter Type Encounter Description Reason Provider Source Oct 22, 2023 11:11 AM EXERCISE CLASS HEALTH/WELLBEING SRVS ICD-10-CM Z72.3 Lack of physical exercise JANIE LAZCANO E Encounter Template Text not used by [place] Assessments - Encounter Diagnoses This section includes the primary and secondary diagnoses documented for the Encounter. Date/Time Primary/Secondary Diagnosis Diagnosis Name Provider Source Oct 22, 2023 11:34 AM PRIMARY Lack of physical exercise JANIE LAZCANO [place] [facility] [place] [facility] Plan of [...] NONE [place] [facility] [place] [facility] Oct 25, 2023 11:00 AM AMBULATORY [...] NONE [place] [facility] [place] [facility] Dec 06, 2023 11:00 AM AMBULATORY - NONE [facility] [facility] Dec 11, 2023 10:00 AM AMBULATORY - NONE [place] [facility] [place] [facility] Dec 11, 2023 01:00 PM AMBULATORY - MEDICINE [place] [facility] [place] [facility] Dec 13, 2023 11:00 AM AMBULATORY - NONE [place] Dec 20, 2023 11:00 AM AMBULATORY - NONE [place] Dec 25, 2023 10:00 AM AMBULATORY - NONE [place] [facility] [place] [facility] Dec 27, 2023 11:00 AM AMBULATORY - NONE [place] Jan 03, 2024 11:00 AM AMBULATORY - NONE [place] Jan 08, 2024 10:00 AM AMBULATORY - NONE [place] [facility] [place] [facility] Jan 10, 2024 11:00 AM AMBULATORY - NONE [place] Jan 17, 2024 11:00 AM AMBULATORY - NONE [place] Jan 21, 2024 11:00 AM AMBULATORY - MEDICINE [place] [facility] [place] [facility] Social History: Smoking Status (Most current) [...] AM VA-TOBACCO QUIT 15 YRS OR MORE [facility] Apr 04, 2017 12:30 PM QUIT TOBACCO USE > 7 YEARS AGO [facility] Apr 05, 2016 01:02 PM QUIT TOBACCO USE > 7 YEARS AGO quit in 1984 [facility] Encounter Notes: All associated encounter notes This section contains the clinical notes associated to the Encounter. Date/Time Encounter Note(s) Provider Source Oct 22, 2023 11:28 AM GERIATRIC MEDICINE NOTE: LOCAL TITLE: GEROFIT VCM/VVC/VOD TELEHEALTH SUPERVISED EXERCISE STANDARD TITLE: GERIATRIC MEDICINE NOTE DATE OF NOTE: OCT 22, 2023@11:28 ENTRY DATE: OCT 22, 2023@11:28:15 AUTHOR: JANIE LAZCANO EXP COSIGNER: URGENCY: STATUS: COMPLETED [place] Provided informed consent to receive treatment via Telehealth., mailed and has been made verbally aware of [facility] [place] practices. [place]'s Location: address on record unless specified below. Emergency Contact: on record unless specified below. [place] participated remotely in the [facility] exercise program today through [place] Virtual Evs Manager. Activities were focused on progression of their individual exercise prescription (cardiorespiratory fitness training, strength training, etc.) and group-based exercise sessions to include, but not limited to: flexibility training, balance training & functional circuit training. Exercise participation was supervised remotely by [facility] staff and any questions/concerns were addressed with the patient. Modifications were made to programming as appropriate to suit Veterans individual needs, preferences, and whole health concerns. /es/ Janie Lazcano PT,DPT PHYSICAL THERAPIST Signed: 10/22/2023 11:38 JANIE LAZCANO [facility]
--- OUTSIDE RECORDS SUMMARY | 2024-03-21 08:09 | XMS_ITS | Encounter Summary ---
Author Name [facility] [place] [place] [facility] [place] [facility] [place] Address [address] [place] [address] Care Team Providers Care Solutions Operator Name Role Phone LEN MENDOZA Primary [...] PART B Sep 23, 2014 PART B [id number] [id number] HARMONY MCCALL JR PATIENT MEDICARE (WNR) MEDICARE (M) PART A July 25, 2007 PART A [id number] [id number] [phone] HARMONY MCCALL JR PATIENT MEDICARE (WNR) MEDICARE (M) PART B July 25, 2007 PART B [id number] [phone] HARMONY MCCALL JR PATIENT MEDICARE (WNR) MEDICARE (M) PART A July 25, 2007 PART A [id number] [id number] HARMONY MCCALL JR PATIENT [facility] MEDICAL EXPENSE (OPT/PROF ) [facility] [place] * Jan 24, 2015 [id number] [id number] CAROLE MCCALL SPOUSE Selected Encounter This section includes the information on record at [place] for the Encounter. Date/Time Encounter Type Encounter Description Reason Pro vider Source IHE Encounter Template Text not used by [place]
--- OUTSIDE RECORDS SUMMARY | 2024-03-21 08:09 | XMS_ITS | Encounter Summary ---
Author Name [facility] [place] [facility] [place] Organization [facility] [place] Address [address] [place] [address] Care Team Providers Care Header Setup Operator Name Role Phone LEN MENDOZA Primary [...] PART B Sep 23, 2014 PART B [id number] [id number] HARMONY MCCALL JR PATIENT MEDICARE (WNR) MEDICARE (M) PART A July 25, 2007 PART A [id number] [id number] HARMONY MCCALL JR PATIENT MEDICARE (WNR) MEDICARE (M) PART B July 25, 2007 PART B [id number] [id number] HARMONY MCCALL JR PATIENT MEDICARE (WNR) MEDICARE (M) PART A July 25, 2007 PART A [id number] [id number] HARMONY MCCALL JR PATIENT [facility] MEDICAL EXPENSE (OPT/PROF ) [facility] [place] * Jan 24, 2015 [id number] 18 CAROLE MCCALL SPOUSE Selected Encounter This section includes the information on record at [place] for the Encounter. Date/Time Encounter Type Encounter Description Reason Provider Source Feb 28, 2024 11:00 AM HLTH BHV IVNTJ GRP EA ADDL WEIGHT MGMT & MOVE! PROG - GRP ICD-10-CM Z68.30 Body mass index [BMI] 30.0-30.9, adult GORDON PATHAK Encounter Template Text not used by [place] [...] Appointment Type Appointme nt Facility Name Mar 06, 2024 11:00 AM AMBULATORY - NONE [facility] [facility] Mar 13, 2024 11:00 AM AMBULATORY - NONE [facility] Jul 21, 2024 10:00 AM AMBULATORY - MEDICINE [place] [facility] [place] [facility] Vital Signs: All taken on the encounter [...] DATE: FEB 29, 2024@13:28:56 AUTHOR: GORDON PATHAK COSIGNER: URGENCY: STATUS: COMPLETED [place] participated in MOVE! Group Counseling via [facility] on February 28, 2024. The [place] was provided with information on [facility] and has given verbal consent to use group [facility] services for their healthcare. The copy of the Group Telehealth Agreement has been mailed to the [place]. The Veterans location/emergency contact number were confirmed. The Emergency Call Relay Center ([phone]) was available. The visit was locked for security and privacy. [place] identified with 2 identifiers: [ ] Full Name [ ] Address Veterans attended the [facility] MOVE! group session on this date. [...] of the year. Facilitators introduced a new fall internship who is attemding this group for two weeks as a part of her training. Group members shared that they would like her to present on the nutrition facts and recommendations concerning nuts and seeds during next week's group discussion. Veterans shared their strategies for the upcoming week. The next [facility] MOVE! group meeting will be held on February @ 11:00am. [place]'s reported weight was 214.6 lbs. and lost 0.7 pounds since last group attended. Dx: Obesity Class 1 BMI 30.0-30.9 The session lasted for 1 hour in duration. /johanny/ GORDON PATHAK, Ph.D. CLINICAL PSYCHOLOGIST Signed: 02/29/2024 13:46 Receipt Acknowledged By: 03/03/2024 08:02 /johanny/ SANTIAGO KRAMER STAFF DIETITIAN GORDON PATHAK
--- OUTSIDE RECORDS SUMMARY | 2024-03-21 08:09 | XMS_ITS | Encounter Summary ---
Author Name [facility] [place] Address [address] [place] [address] Care Team Providers Care Cellophane Wrapping Examiner Name Role Phone LEN MENDOZA Primary Care [...] PART B Sep 23, 2014 PART B [id number] [id number] HARMONY MCCALL JR PATIENT MEDICARE (WNR) MEDICARE (M) PART A July 25, 2007 PART A [id number] [id number] HARMONY MCCALL JR PATIENT MEDICARE (WNR) MEDICARE (M) PART B July 25, 2007 PART B [id number] [id number] [phone] HARMONY MCCALL JR PATIENT MEDICARE (WNR) MEDICARE (M) PART A July 25, 2007 PART A [id number] [id number] HARMONY MCCALL JR PATIENT [facility]OF ) [facility] [place] * Jan 24, 2015 [id number] [id number] 18 CAROLE MCCALL SPOUSE Selected Encounter This section includes the information on record at [place] for the Encounter. Date/Time Encounter Type Encounter Description Reason Provider Source Sep 25, 2023 12:22 PM FIT SPECTACLES MONOFOCAL OPTOMETRY ICD-10-CM Z46.0 Encounter for fit/adjst of spectacles and contact lenses NIMO GEE Erin Encounter Template Text not used by [place] Assessments - Encounter Diagnoses This section includes the primary and secondary diagnoses documented for the Encounter. Date/Time Primary/Secondary Diagnosis Diagnosis Name Provider Source Sep 25, 2023 12:22 PM PRIMARY Encounter for fit/adjst of spectacles and contact lenses CARYN MARIA [facility] Plan of Treatment: Future Appointments (+ [...] 23, 2023 09:00 AM [facility] Oct 25, 2023 11:00 AM AMBULATORY [...] 03, 2023 02:00 PM AMBULATORY - NONE [place] [facility] [place] [facility] Dec 06, 2023 11:00 AM AMBULATORY - NONE [place] Dec 11, 2023 10:00 AM AMBULATORY - NONE [place] [facility] [place] [facility] Dec 11, 2023 01:00 PM AMBULATORY - MEDICINE [place] [facility] [place] [facility] Dec 13, 2023 11:00 AM AMBULATORY - NONE [place] Dec 20, 2023 11:00 AM AMBULATORY - NONE [place] Dec 25, 2023 10:00 AM AMBULATORY - NONE [place] [facility] [place] [facility] Dec 27, 2023 11:00 AM AMBULATORY - NONE [place] Jan 03, 2024 11:00 AM AMBULATORY - NONE [place] Jan 08, 2024 10:00 AM AMBULATORY - NONE [place] [facility] [place] [facility] Social History: Smoking Status (Most [...] VA-TOBACCO FORMER USER [place] [facility] [place] [facility] Tobacco Use History This section includes a history of the smoking, or tobacco-related health factors, that were collected on or before the date of the Encounter. The data comes from the [place] facility where the Encounter took place. Date/Time Smoking Status/Tobacco Use Comment F acility Jan 26, 2023 01:30 PM VA-TOBACCO QUIT 15 YRS OR MORE [place] [facility] [place] [facility] Jan 27, 2022 11:00 AM VA-TOBACCO FORMER USER [place] [facility] [place] [facility] Jan 27, 2022 11:00 AM VA-TOBACCO QUIT 15 YRS OR MORE [place] [facility] [place] [facility] Sep 17, 2020 09:00 AM VA-TOBACCO FORMER USER [place] [facility] [place] [facility] Sep 17, 2020 09:00 AM VA-TOBACCO QUIT 15 YRS OR MORE [place] [facility] [place] [facility] Jun 04, 2019 02:57 PM VA-TOBACCO NEVER USED [place] [facility] [place] [facility] Mar 14, 2018 11:23 AM VA-TOBACCO FORMER USER [place] [facility] [place] [facility] Mar 14, 2018 11:23 AM VA-TOBACCO QUIT 15 YRS OR MORE [place] [facility] [place] [facility] Apr 04, 2017 12:30 PM QUIT TOBACCO USE > 7 YEARS AGO [place] [facility] [place] [place] [facility] Apr 05, 2016 01:02 PM QUIT TOBACCO USE > 7 YEARS AGO quit in 1984 [place] [facility] [place] [facility] Encounter Notes: All associated encounter [...] to the creation of a purchase order. [facility] 3730 RX INFORMATION OD +2.50 0.00 X Add:0.00 Pzm:0.00 Dir: Prz2:0.00 Dir2: OS +2.50 0.00 X Add:0.00 Pzm:0.00 Dir: Prz2:0.00 Dir2: FITTING INFORMATION FPD:59 NPD:59 [place]:R: L: SEG HT:R: L: Tint:None Shade:None [place] Billable Items FRAME: US59 BLACK [id number] Right Lens: POLY SINGLE VISION 1.586 POLY Left Lens: POLY SINGLE VISION 1.586 POLY /johanny/ BRIANA MCINTYRE ASBESTOS SURVEYOR Signed: 09/25/2023 12:22 Receipt Acknowledged By: 09/25/2023 13:00 /johanny/ Chata Hendrickson Optometry Health Sports Management Intern 09/25/2023 ADDENDUM STATUS: COMPLETED PDS doll wig maker rooted hair fit 1 SV eyeglasses on 09/25/2023. OPT HT entered consult(s) as requested for provider signature. /johanny/ Caryn Maria LPN Licensed Practical Nurse Signed: 09/25/2023 12:54 SILVANA HUSTON [place] [facility] [place] [facility]
--- OUTSIDE RECORDS SUMMARY | 2024-03-21 08:09 | XMS_ITS | Encounter Summary ---
Author Name [facility] [place] Address [address] [place] [address] Care Team Providers Care Crystalizer Operator Name Role Phone LEN MENDOZA Primary [...] PART B Sep 23, 2014 PART B [id number] [id number] HARMONY MCCALL JR PATIENT MEDICARE (WNR) MEDICARE (M) PART A July 25, 2007 PART A [id number] [id number] HARMONY MCCALL JR PATIENT MEDICARE (WNR) MEDICARE (M) PART B July 25, 2007 PART B [id number] [id number] HARMONY MCCALL JR PATIENT MEDICARE (WNR) MEDICARE (M) PART A July 25, 2007 PART A [id number] [id number] HARMONY MCCALL JR PATIENT [facility] MEDICAL EXPENSE (OPT/PROF ) [facility] * Jan 24, 2015 [id number] 18 CAROLE MCCALL SPOUSE Selected Encounter This section includes the information on record at [place] for the Encounter. Date/Time Encounter Type Encounter Description Reason Provider Source Feb 14, 2024 11:00 AM HLTH BHV IVNTJ GRP EA ADDL WEIGHT MGMT & MOVE! PROG - GRP ICD-10-CM Z68.30 Body mass index [BMI] 30.0-30.9, adult GORDON PATHAK [facility] Encounter Template Text not used by [place] [...] activities for the patient from all [place] [facility]. This section includes future appointments and future [...] 26, 2024 08:30 AM AMBULATORY - NONE [place] [facility] [place] [facility] Feb 26, 2024 08:30 AM AMBULATORY - MEDICINE [facility] Feb 28, 2024 11:00 AM AMBULATORY - NONE [facility] Mar 06, 2024 11:00 AM AMBULATORY - NONE [facility] Mar 13, 2024 11:00 AM AMBULATORY - NONE [facility] Jul 21, 2024 10:00 AM AMBULATORY - MEDICINE [facility] Active, Pending, and Scheduled Orders This section includes a listing of several types of active, pending, and scheduled orders, including clinic medications orders, diagnostic test orders, procedure orders and consult orders; where the start date of the order is 45 days before the date of the Encounter or 45 days after the date of theEncounter. The data comes from all [place] treatment facilities. Test Date/Time Test Type Test Details Facility Name Jan 10, 2024 12:00 AM Laboratory - Chemi stry Order CBC BLOOD (LAV-BLOOD) [facility] Jan 10, 2024 12:00 AM Laboratory - Chemi stry Order BASIC METABOLIC PANEL (non-fasting) BLOOD (SST-SERUM) [facility] Jan 10, 2024 12:00 AM Laboratory - Chemi stry Order LIPID PANEL, NON FASTING BLOOD (SST-SERUM) [facility] Jan 10, 2024 12:00 AM Laboratory - Chemi stry Order LIVER FUNCTION BLOOD (SST-SERUM) [facility] Jan 10, 2024 12:00 AM Laboratory - Chemi stry Order TSH BLOOD (SST-SERUM) [facility] Jan 10, 2024 12:00 AM Laboratory - Chemi stry Order FERRITIN BLOOD (SST-SERUM) [facility] Jan 10, 2024 12:00 AM Laboratory - Chemi stry Order VITAMIN B12 BLOOD (SST-SERUM) [facility] Jan 10, 2024 12:00 AM Laboratory - Chemi stry Order IRON & TIBC PANEL BLOOD (SST-SERUM) [facility] Vital Signs: All taken on the encounter [...] via VVC on February 14, 2024. The [place] was provided with information on VVC and [...] Name [ ] Address Veterans attended the [facility] MOVE! group session on this date. [...] a gym or an exercise program like [employer]. Those individuals who have participated in such programs answered questions and supported the idea as they found such opportunities very helpful in the past. Veterans shared their plans for the upcoming and concerns that such a special occasion might derail their healthier eating habits. Due to the upcoming iday next , the next [facility] M[facility] group meeting will be held on February @ 11:00am. [place]'s reported weight was 215.3 lbs. and gained 3.2 pounds since last group attended. Dx: Obesity Class 1 BMI 30.0-30.9 The session lasted for 1 hour in duration. /johanny/ GORDON PATHAK, Ph.D. CLINICAL PSYCHOLOGIST Signed: 02/15/2024 10:16 Receipt Acknowledged By: 02/17/2024 20:44 /johanny/ SANTIAGO KRAMER STAFF DIETITIAN GORDON PATHAK
--- OUTSIDE RECORDS SUMMARY | 2024-03-21 08:09 | XMS_ITS | Encounter Summary ---
Author Name [facility] [place] Address [address] [place] [address] Care Team Providers Care Assignment Officer Name Role Phone LEN MENDOZA Primary [...] PART B Sep 23, 2014 PART B [id number] HARMONY MCCALL JR PATIENT MEDICARE (WNR) MEDICARE (M) PART A July 25, 2007 PART A [id number] HARMONY MCCALL JR PATIENT MEDICARE (WNR) MEDICARE (M) PART B July 25, 2007 PART B [id number] HARMONY MCCALL JR PATIENT MEDICARE (WNR) MEDICARE (M) PART A July 25, 2007 PART A [id number] [id number] HARMONY MCCALL JR PATIENT [facility] MEDICAL EXPENSE (OPT/PROF ) [facility] [place] * Jan 24, 2015 [id number] 18 CAROLE MCCALL SPOUSE Selected Encounter This [...] Obstructive sleep apnea (adult) (pediatric) ARELIS NUNO [facility] Plan of Treatment: Future Appointments (+ [...] 21, 2024 10:00 AM AMBULATORY - MEDICINE [facility] Encounter Notes: All associated [...] -Environment surveyed for participants -VVC conference locked [place] identified with 2 identifiers: [X] Full Name [...] Drowsy Driving: No EPWORTH SLEEPINESS SCALE: TOTAL 24 Sitting and Reading 0 score Watching Television [...] MT) RESPIRATORY PARAMETERS: - Respiratory Event Index (HST-JENINFER 3%) was 12.3 events per hour. - [...] - 02/24/2024 : 1940 Age: 83 years 6[place] Compliance Report Compliance Payor [facility] Usage [...] 256 hours AirSense 11 AutoSet Serial number [id number] Mode AutoSet Min Pressure 5 cmH2O Max [...] MD ATTENDING Signed: 02/26/2024 10:25 ARELIS NUNO [facility]
--- OUTSIDE RECORDS SUMMARY | 2024-03-21 08:09 | XMS_ITS | Encounter Summary ---
Author Name [place] Address [address] [place] [address] Care Team Providers Care Corporate Risk Analyst Name Role Phone LEN MEDNOZA Primary Care Provider Unavaila ble Insurance Providers: [...] PART B Sep 23, 2014 PART B [id number] HARMONY MCCALL JR PATIENT MEDICARE (WNR) MEDICARE (M) PART A July 25, 2007 PART A [id number] HARMONY MCCALL JR PATIENT MEDICARE (WNR) MEDICARE (M) PART B July 25, 2007 PART B [id number] [id number] HARMONY MCCALL JR PATIENT MEDICARE (WNR) MEDICARE (M) PART A July 25, 2007 PART A [id number] [id number] HARMONY MCCALL JR PATIENT [facility] MEDICAL EXPENSE (OPT/PROF ) [facility] [place] * Jan 24, 2015 [id number] 18 CAROLE MCCALL SPOUSE Selected Encounter This section includes the information on record at [place] for the Encounter. Date/Time Encounter Type Encounter Description Reason Provider Source Oct 01, 2023 08:00 AM EXERCISE CLASS HEALTH/WELLBEING [facility]VS ICD-10-CM Z72.3 Lack of physical exercise JANIE LAZCANO Erin Encounter Template Text not used by [place] Assessments - Encounter Diagnoses This section includes the primary and secondary diagnoses documented for the Encounter. Date/Time Primary/Secondary Diagnosis Diagnosis Name Provider Source Oct 01, 2023 10:52 AM PRIMARY Lack of physical exercise DAMON ONEILL [place] [facility] [place] [facility] Plan of Treatment: Future Appointments (+ 6 months) and Future Tests (+/- 45 days) The Plan of Treatment section includes future care activities for the patient from all [place] treatmentfacilities. This section includes future appointments and future orders which are active, pending or scheduled. Future Appointments This section includes appointments that were scheduled to occur 6 months from the date of the Encounter, up to a maximum of 20 appointments. The data comes from all [place] treatment facilities. Appointment Date/Time Appointment Type Appointme nt Facility Name Oct 04, 2023 11:00 AM AMBULATORY - NONE [place] Oct 11, 2023 11:00 AM AMBULATORY - NONE [place] Oct 18, 2023 11:00 AM AMBULATORY - NONE [place] Oct 23, 2023 09:00 AM AMBULATORY - NONE [place] [facility] [place] [facility] Oct 25, 2023 11:00 AM [...] [facility] [place] [facility] Social History: Smoking Status (Most current) and Tobacco Use (All prior to encounter date) This section includes the most current, and the historical, smoking and tobacco- related health factors from the [place] facility where the Encounter took place. Current Smoking Status This section includes the most current smoking, or tobacco-related health factor, from the [place] facility where the Encounter took place. Date/Time Current Smoking Status Comment Facil ity Jan 26, 2023 01:30 PM VA-TOBACCO FORMER USER [facility] [place] [facility] Tobacco Use History This section includes a history of the smoking, or tobacco-related health factors, that were collected on or before the date of the Encounter. The data comes from the [place] facility where the Encounter took place. Date/Time Smoking Status/Tobacco Use Comment F acility Jan 26, 2023 01:30 PM VA-TOBACCO QUIT 15 YRS OR MORE [facility] [place] [facility] Jan 27, 2022 11:00 AM VA-TOBACCO FORMER USER [facility] [place] [facility] Jan 27, 2022 11:00 AM VA-TOBACCO QUIT 15 YRS OR MORE [facility] [place] [facility] Sep 17, 2020 09:00 AM VA-TOBACCO FORMER USER [facility] [place] [facility] Sep 17, 2020 09:00 AM VA-TOBACCO QUIT 15 YRS OR MORE [facility] [place] [facility] Jun 04, 2019 02:57 PM VA-TOBACCO NEVER USED [facility] [place] [facility] Mar 14, 2018 11:23 AM VA-TOBACCO FORMER USER [facility] [place] [facility] Mar 14, 2018 11:23 AM VA-TOBACCO QUIT 15 YRS OR MORE [facility] [place] [facility] Apr 04, 2017 12:30 PM QUIT TOBACCO USE > 7 YEARS AGO [facility] Apr 05, 2016 01:02 [...] COMPLETED GEROFIT VVC/VCM/VOD Telehealth Supervised Exercise NOTE [place] Provided informed consent to receive treatment via Telehealth., [place] mailed and has been made verbally aware of [facility] [place] practices. [place]'s Location: address on record unless specified below. Emergency Contact: on record unless specified below. participated remotely in the Gerofit exercise program today through [place] Virtual Maid Supervisor. Activities were focused on progression of their [...] whole health concerns. /johanny/ VIOLETTA FINK LICENSE REAL ESTATE ASSISTANT Signed: 10/01/2023 10:59 DOUG ONEILL [facility]
--- OUTSIDE RECORDS SUMMARY | 2024-03-21 08:09 | XMS_ITS | Encounter Summary ---
Author Name [facility] [place] Organization [place] Address [address] [place] [address] Care Team Providers Care Traffic Representative Name Role Phone LEN MENDOZA Primary [...] PART B Sep 23, 2014 PART B [id number] HARMONY MCCALL JR PATIENT MEDICARE (WNR) MEDICARE (M) PART A July 25, 2007 PART A [id number] HARMONY MCCALL JR PATIENT MEDICARE (WNR) MEDICARE (M) PART B July 25, 2007 PART B [id number] [id number] HARMONY MCCALL JR PATIENT MEDICARE (WNR) MEDICARE (M) PART A July 25, 2007 PART A [id number] [id number] HARMONY MCCALL JR PATIENT [facility] MEDICAL EXPENSE (OPT/PROF ) [facility] [place] * Jan 24, 2015 [id number] 18 CAROLE MCCALL SPOUSE Selected Encounter This section includes the information on record at [place] for the Encounter. Date/Time Encounter Type Encounter Description Reason Provider Source Sep 26, 2023 08:00 AM EXERCISE CLASS HEALTH/WELLBEING [facility] ICD-10-CM Z72.3 Lack of physical exercise DAMON ONEILL [facility] Encounter Template Text not used by [place] Assessments - Encounter Diagnoses This section includes the primary and secondary diagnoses documented for the Encounter. Date/Time Primary/Secondary Diagnosis Diagnosis Name Provider Source Sep 26, 2023 10:42 AM PRIMARY Lack of physical exercise DAMON ONEILL [place] [facility] [place] [facility] Plan of Treatment: Future Appointments [...] AMBULATORY - NONE [facility] [place] [facility] Oct 25, 2023 11:00 AM [...] - NONE [facility] [place] [facility] Dec 06, 2023 11:00 AM AMBULATORY - NONE [place] Dec 11, 2023 10:00 AM AMBULATORY - NONE [facility] [place] [facility] Dec 11, 2023 01:00 PM AMBULATORY - MEDICINE [facility] [place] [facility] Dec 13, 2023 11:00 AM AMBULATORY - NONE [place] Dec 20, 2023 11:00 AM AMBULATORY - NONE [place] Dec 25, 2023 10:00 AM AMBULATORY - NONE [facility] [place] [facility] Dec 27, 2023 11:00 AM AMBULATORY - NONE [place] Jan 03, 2024 11:00 AM AMBULATORY - NONE [place] Jan 08, 2024 10:00 AM AMBULATORY - NONE [facility] [place] [facility] Social History: Smoking Status (Most [...] FORMER USER [facility] [place] [facility] Tobacco Use History This section includes a history of the smoking, or tobacco-related health factors, that were collected on or before the date of the Encounter. The data comes from the [place] facility where the Encounter took place. Date/Time Smoking Status/Tobacco Use Comment F acility Jan 26, 2023 01:30 PM VA-TOBACCO QUIT 15 YRS OR MORE [facility] [place] [facility] Jan 27, 2022 11:00 AM VA-TOBACCO FORMER USER [facility] [place] [facility] Jan 27, 2022 11:00 AM VA-TOBACCO QUIT 15 YRS OR MORE [facility] [place] [facility] Sep 17, 2020 09:00 AM VA-TOBACCO FORMER USER [facility] [place] [facility] Sep 17, 2020 09:00 AM VA-TOBACCO QUIT 15 YRS OR MORE [facility] [place] [facility] Jun 04, 2019 02:57 PM VA-TOBACCO NEVER USED [facility] [place] [facility] Mar 14, 2018 11:23 AM VA-TOBACCO FORMER USER [facility] [place] [facility] Mar 14, 2018 11:23 AM VA-TOBACCO QUIT 15 YRS OR MORE [facility] Apr 04, 2017 12:30 PM QUIT TOBACCO USE > [address] [facility] Apr 05, 2016 01:02 PM [...] COMPLETED GEROFIT VVC/VCM/VOD Telehealth Supervised Exercise NOTE [place] Provided informed consent to receive treatment via Telehealth., [place] mailed and has been made verbally aware of [facility] [place] practices. [place]'s Location: address on record unless specified below. Emergency Contact: on record unless specified below. [place] participated remotely in the Gerofit exercise program today through [place] Virtual Registered Nurse Practitioner. Activities were focused on progression of their [...] whole health concerns. /johanny/ VIOLETTA FINK LICENSE VP GENETIC Signed: 09/26/2023 10:47 DOUG ONEILL [facility]
--- OUTSIDE RECORDS SUMMARY | 2024-03-21 08:09 | XMS_ITS | Encounter Summary ---
Author Name [facility] [place] Organization [place] Address [address] [place] [address] Care Team Providers Care Film Process Operator Name Role Phone LEN MENDOZA Primary [...] PART B Sep 23, 2014 PART B [id number] HARMONY MCCALL JR PATIENT MEDICARE (WNR) MEDICARE (M) PART A July 25, 2007 PART A [id number] [id number] HARMONY MCCALL JR PATIENT MEDICARE (WNR) MEDICARE (M) PART B July 25, 2007 PART B [id number] [id number] HARMONY MCCALL JR PATIENT MEDICARE (WNR) MEDICARE (M) PART A July 25, 2007 PART A [id number] HARMONY MCCALL JR PATIENT [facility] MEDICAL EXPENSE (OPT/PROF ) [facility] [place] * Jan 24, 2015 [id number] 18 CAROLE MCCALL SPOUSE Selected Encounter This section includes the information on record at [place] for the Encounter. Date/Time Encounter Type Encounter Description Reason Provider Source Oct 11, 2023 11:00 AM WEIGHT MGMT CLASS WEIGHT MGMT & MOVE! PROG - GRP ICD-10-CM Z68.29 Body mass index [BMI] 29.0-29.9, adult GORDON PATHAK [facility] Encounter Template Text not used by [facility] Assessments - Encounter Diagnoses This section includes the primary and secondary diagnoses documented for the Encounter. Date/Time Primary/Secondary Diagnosis Diagnosis Name Provider Source Oct 12, 2023 11:06 AM PRIMARY Body mass index [BMI] 29.0-29.9, adult GORDON PATHAK Oct 12, 2023 11:06 AM SECONDARY Overweight GORDON PATHAK Plan of [...] AMBULATORY - NONE [facility] [place] [facility] Oct 25, 2023 11:00 AM [...] AMBULATORY - NONE [facility] [place] [facility] Dec 06, 2023 11:00 AM AMBULATORY - NONE [place] Dec 11, 2023 10:00 AM AMBULATORY - NONE [facility] [place] [facility] Dec 11, 2023 01:00 PM AMBULATORY - MEDICINE [facility] [place] [facility] Dec 13, 2023 11:00 AM AMBULATORY - NONE [place] Dec 20, 2023 11:00 AM AMBULATORY - NONE [place] Dec 25, 2023 10:00 AM AMBULATORY - NONE [facility] [place] [facility] Dec 27, 2023 11:00 AM AMBULATORY - NONE [place] Jan 03, 2024 11:00 AM AMBULATORY - NONE [place] Jan 08, 2024 10:00 AM AMBULATORY - NONE [facility] [place] [facility] Jan 10, 2024 11:00 AM AMBULATORY - NONE [place] Jan 17, 2024 11:00 AM AMBULATORY - NONE [place] Vital Signs: All taken on the encounter date This section contains inpatient and outpatient Vital Signs collected on the date of the Encounter. Date/Time Temperature Pulse Blood Pressure Respiratory Rate SP02 Pain Height Weight Body Mass Index Source Oct 11, 2023 11:19 AM 208.6 32 [place] Encounter Notes: All associated encounter notes This section contains the clinical notes associated to the Encounter. Date/Time Encounter Note(s) Provider Source Oct 12, 2023 11:00 AM MOVE NOTE: LOCAL TITLE: WEIGHT MANAGEMENT/MOVE! OUTPATIENT GROUP NOTE STANDARD TITLE: MOVE NOTE DATE OF NOTE: OCT 12, 2023@11:00 ENTRY DATE: OCT 12, 2023@11:00:22 AUTHOR: GORDON PATHAK COSIGNER: URGENCY: STATUS: COMPLETED [place] participated in MOVE! Group Counseling via VV on October 11, 2023. The [place] was provided with information on VV and has given verbal consent to use group VVC services for their healthcare. The copy of the Group Telehealth Agreement has been mailed to the [place]. The Veterans location/emergency contact number were confirmed. The Emergency Call Relay Center ([phone]) was available. The visit was locked for security and privacy. [place] identified with 2 identifiers: [ ] Full Name [ ] Address Veterans attended the [facility] MOVE! group session on this date. MOVE! is a program designed to provide education about weight management skills to overweight and obese Veterans. Group members combined to lose 4.1 pounds since their last attended group. Group members began today's discussion by welcoming a new member to the Support group who recently graduated from the 16 week curriculum. Veterans took turns introducing themselves and talking about the supportive culture of this group that has continued for quite a few years. Veterans talked about feeling stuck at their current weight. Facilitators shared some possible ways to become unstuck including beginning to track one's food using an rasheed on the phone or computer, measuring food using measuring cups and food scales, increasing physical activity, and spot- checking to make sure that caloric intake is within the recommended range. Veterans asked questions about the FitVet and GeroFit programs. Group members shared their individual goals for the next week. The next [facility] MOVE! group meeting will be held on September @ 11:00am. 's reported weight was 208.6 lbs. and lost 0.4 pounds since last group attended. Dx: Overweight Obesity E66.3 BMI 29.0-29.9 The session lasted for 1 hour in duration. /johanny/ GORDON PATHAK, Ph.D. CLINICAL PSYCHOLOGIST Signed: 10/12/2023 11:12 Receipt Acknowledged By: 10/19/2023 08:04 /johanny/ SANTIAGO KRAMER STAFF DIETITIAN GORDON PATHAK
--- OUTSIDE RECORDS SUMMARY | 2024-03-21 08:09 | XMS_ITS | Encounter Summary ---
Author Name Department of [place] Organization [place] Address [address] [place] [address] Care Team Providers Care Gun Stock Checker Name Role Phone LEN MENDOZA Primary Care [...] PART B Sep 23, 2014 PART B [id number] HARMONY MCCALL JR PATIENT MEDICARE (WNR) MEDICARE (M) PART A July 25, 2007 PART A [id number] [id number] HARMONY MCCALL JR PATIENT MEDICARE (WNR) MEDICARE (M) PART B July 25, 2007 PART B [id number] [id number] HARMONY MCCALL JR PATIENT MEDICARE (WNR) MEDICARE (M) PART A July 25, 2007 PART A [id number] [id number] HARMONY MCCALL JR PATIENT [facility] MEDICAL EXPENSE (OPT/PROF ) [facility] [place] * Jan 24, 2015 [id number] 18 CAROLE MCCALL SPOUSE Selected Encounter This [...] Obstructive sleep apnea (adult) (pediatric) ARELIS NUNO [facility] Plan of Treatment: [...] 21, 2024 10:00 AM AMBULATORY - MEDICINE [facility] Social History: Smoking Status (Most current) and [...] Facil ity Jan 21, 2024 11:00 AM VA-TOBACCO FORMER USER [facility] Tobacco Use History This section includes a history of the smoking, or tobacco-related health factors, that were collected on or before the date of the Encounter. The data comes from the [place] facility where the Encounter took place. Date/Time Smoking Status/Tobacco Use Comment F acility Jan 21, 2024 11:00 AM VA-TOBACCO QUIT 15 YRS OR MORE [facility] [place] [facility] Jan 26, 2023 01:30 PM VA-TOBACCO FORMER USER [facility] [place] [facility] Jan 26, 2023 01:30 PM VA-TOBACCO QUIT 15 YRS OR MORE [facility] [place] [facility] Jan 27, 2022 11:00 AM VA-TOBACCO FORMER USER [facility] [place] [facility] Jan 27, 2022 11:00 AM VA-TOBACCO QUIT 15 YRS OR MORE [facility] [place] [facility] Sep 17, 2020 09:00 AM VA-TOBACCO FORMER USER [facility] [place] [facility] Sep 17, 2020 09:00 AM VA-TOBACCO QUIT 15 YRS OR MORE [facility] [place] [facility] Jun 04, 2019 02:57 PM VA-TOBACCO NEVER USED [facility] [place] [facility] Mar 14, 2018 11:23 AM VA-TOBACCO FORMER USER [facility] [place] [facility] Mar 14, 2018 11:23 AM VA-TOBACCO QUIT 15 YRS OR MORE [facility] [place] [facility] Apr 04, 2017 12:30 PM QUIT TOBACCO USE > 7 YEARS AGO [facility] [place] [facility] Apr 05, 2016 01:02 PM QUIT TOBACCO USE > 7 YEARS AGO quit in 1984 [place] [facility] [place] [facility] Encounter Notes: All associated encounter [...] number ( ) current as posted in [employer] demographics -Pt is located at home -Safety and emergency procedures addressed during visit -Environment surveyed for participants -VVC conference locked [place] identified with 2 identifiers: [X] Full Name [...] - 02/24/2024 : 1940 Age: 83 years 631-[place] Compliance Report Compliance Payor [place] Healthcare Usage 01/26/2024 - 02/24/2024 Usage days [...] 256 hours AirSense 11 AutoSet Serial number [id number] Mode AutoSet Min Pressure 5 cmH2O Max [...] ATTENDING Signed: 02/26/2024 10:26 ARELIS NUNO [facility]
--- OUTSIDE RECORDS SUMMARY | 2024-03-21 08:09 | XMS_ITS | Encounter Summary ---
Author Name Department [place] Organization [place] Address [address] [place] [id number] Care Team Providers Care Nurse Receptionist Name Role Phone LEN MENDOZA Primary Care [...] PART B Sep 23, 2014 PART B [id number] HARMONY MCCALL JR PATIENT MEDICARE (WNR) MEDICARE (M) PART A July 25, 2007 PART A [id number] [phone] HARMONY MCCALL JR PATIENT MEDICARE (WNR) MEDICARE (M) PART B July 25, 2007 PART B [id number] [phone] HARMONY MCCALL JR PATIENT MEDICARE (WNR) MEDICARE (M) PART A July 25, 2007 PART A [id number] HARMONY MCCALL JR PATIENT [facility] MEDICAL EXPENSE (OPT/PROF ) [facility] [place] * Jan 24, 2015 [id number] 18 CAROLE MCCALL SPOUSE Selected Encounter This [...] Obstructive sleep apnea (adult) (pediatric) ARELIS NUNO [facility] Plan of Treatment: Future Appointments (+ [...] 26, 2024 08:30 AM [facility] Feb 26, 2024 08:30 AM AMBULATORY - MEDICINE [facility] Feb 28, 2024 11:00 AM AMBULATORY - NONE [place] Mar 06, 2024 11:00 AM AMBULATORY - NONE [place] Mar 13, 2024 11:00 AM AMBULATORY - NONE [place] Jul 21, 2024 10:00 AM AMBULATORY - MEDICINE [facility] Active, Pending, and Scheduled Orders This section includes a listing of several types of active, pending, and scheduled orders, including clinic medications orders, diagnostic test orders, procedure orders and consult orders; where the start date of the order is 45 days before the date of the Encounter or 45 days after the date of theEncounter. The data comes from all [place] treatment facilities. Test Date/Time Test Type Test Details Facility Name Jan 10, 2024 12:00 AM Laboratory - Chemi stry Order BASIC METABOLIC PANEL (non-fasting) BLOOD (SST-SERUM) [facility] Jan 10, 2024 12:00 AM Laboratory - Chemi stry Order CBC BLOOD (LAV-BLOOD) [facility] Jan 10, 2024 12:00 AM Laboratory - Chemi stry Order LIPID PANEL, NON FASTING BLOOD (SST-SERUM) [facility] Jan 10, 2024 12:00 AM Laboratory - Chemi stry Order LIVER FUNCTION BLOOD (SST-SERUM) [facility] Jan 10, 2024 12:00 AM Laboratory - Chemi stry Order TSH BLOOD (SST-SERUM) [facility] Jan 10, 2024 12:00 AM Laboratory - Chemi stry Order FERRITIN BLOOD (SST-SERUM) [facility] Jan 10, 2024 12:00 AM Laboratory - Chemi stry Order VITAMIN B12 BLOOD (SST-SERUM) [facility] Jan 10, 2024 12:00 AM Laboratory - Chemi stry Order IRON & TIBC PANEL BLOOD (SST-SERUM) [facility] Encounter Notes: All associated encounter notes This [...] -Environment surveyed for participants -VVC conference locked identified with 2 identifiers: [X] Full Name [...] - 11/18/2023 : 1940 Age: 83 years 631-[place] Compliance Report Compliance Payor [facility] Usage [...] 42 hours AirSense 11 AutoSet Serial number [id number] Mode AutoSet Min Pressure 5 cmH2O Max [...] 5-10 cmH20 - provided video for reinforcement ([email or web address]://[email or web address]/[email or web address]?[email or web address]) - if no improvement in daytime sleepiness after 1 month of consistent use, he may discontinue CPAP RTC in 1 months. Total time spent during this encounter 45 min. /johanny/ ARELIS NUNO [place] ATTENDING Signed: 01/22/2024 12:18 ARELIS NUNO [facility]
--- OUTSIDE RECORDS SUMMARY | 2024-03-21 08:09 | XMS_ITS | Encounter Summary ---
Author Name Department of Vetera Affairs ([place]) Organization [place] Address [address] [place] [address] Care Team Providers Care Ankle Patch Molder Name Role Phone LEN MENDOZA Primary Care [...] PART B Sep 23, 2014 PART B [id number] HARMONY MCCALL JR PATIENT MEDICARE (WNR) MEDICARE (M) PART A July 25, 2007 PART A [id number] HARMONY MCCALL JR PATIENT MEDICARE (WNR) MEDICARE (M) PART B July 25, 2007 PART B [id number] HARMONY MCCALL JR PATIENT MEDICARE (WNR) MEDICARE (M) PART A July 25, 2007 PART A [id number] HARMONY MCCALL JR PATIENT [facility] MEDICAL EXPENSE (OPT/PROF ) [facility] * Jan 24, 2015 [id number] CAORLE MCCALL SPOUSE Selected Encounter This section includes [...] PRIMARY Sleep apnea, unspecified [facility] [place] [facility] Plan of Treatment: Future Appointments [...] - NONE [facility] [place] [facility] Dec 06, 2023 11:00 AM [facility]ATORY - NONE [place] Dec 11, 2023 10:00 AM AMBULATORY - NONE [place] [facility] [place] [facility] Dec 11, 2023 01:00 PM AMBULATORY - MEDICINE [place] [facility] [place] [facility] Dec 13, 2023 11:00 AM AMBULATORY - NONE [place] Dec 20, 2023 11:00 AM AMBULATORY - NONE [place] Dec 25, 2023 10:00 AM AMBULATORY - NONE [place] [facility] [place] [facility] Dec 27, 2023 11:00 AM AMBULATORY - NONE [place] Jan 03, 2024 11:00 AM AMBULATORY - NONE [place] Jan 08, 2024 10:00 AM AMBULATORY - NONE [place] [facility] [place] [facility] Jan 10, 2024 11:00 AM AMBULATORY - NONE [place] Jan 17, 2024 11:00 AM AMBULATORY - NONE [place] Jan 21, 2024 11:00 AM AMBULATORY - MEDICINE [place] [facility] [place] [place] [facility] Jan 22, 2024 11:00 AM AMBULATORY - MEDICINE [facility] Social History: Smoking Status (Most [...] YRS OR MORE CT [facility] [place] [facility] Tobacco Use History This section includes a history of the smoking, or tobacco-related health factors, that were collected on or before the date of the Encounter. The data comes from the [place] facility where the Encounter took place. Date/Time Smoking Status/Tobacco Use Comment F acility Jan 26, 2023 01:30 PM VA-TOBACCO QUIT 15 YRS OR MORE [facility] [place] [facility] Jan 27, 2022 11:00 AM VA-TOBACCO FORMER USER [facility] [place] [facility] Jan 27, 2022 11:00 AM VA-TOBACCO QUIT 15 YRS OR MORE [facility] [facility] Sep 17, 2020 09:00 AM VA-TOBACCO FORMER USER [facility] [place] [facility] Sep 17, 2020 09:00 AM VA-TOBACCO QUIT 15 YRS OR MORE [facility] [place] [facility] Jun 04, 2019 02:57 PM VA-TOBACCO NEVER USED [facility] [place] [facility] Mar 14, 2018 11:23 AM VA-TOBACCO FORMER USER [facility] [place] [facility] Mar 14, 2018 11:23 AM VA-TOBACCO QUIT 15 YRS OR MORE [facility] Apr 04, 2017 12:30 PM QUIT TOBACCO USE > 7 YEARS AGO [facility] Apr 05, 2016 01:02 PM QUIT [...] CURTIS PUCKETT EXP COSIGNER: URGENCY: STATUS: COMPLETED with diagnosis of sleep apnea was seen in clinic for Auto-CPAP set up. Home sleep test on 03/06/2023 with AHI 12.3. As recommended Vet was issued a ResMed Airsense 11 set to APAP @ 5-20 cmH2O, with tub, tubing and filters. Bevier instructed on proper operation and cleaning of all equipment and given manuals. Vet was fit with F20 largeand instructed in application and adjustments. demonstrated understanding of all instructions. We discussed ways to acclimate to therapy and the dangers of untreated sleep apnea. Bevier will have 1&4 week data checks in AirView. Self-alert placed for yearly renewal. Written instructions for care and cleaning and contact information for department was given. Bevier was encouraged to call with any issues. Vet will be added to Airview. RTC placed for follow up. /johanny/ CURTIS PUCKETT RESPIRATORY THERAPIST Signed: 10/23/2023 10:15 Receipt Acknowledged By: 10/24/2023 11:07 /johanny/ CURTIS COLLINS [facility]
--- OUTSIDE RECORDS SUMMARY | 2024-03-21 08:09 | XMS_ITS | Encounter Summary ---
Author Name Department of Vetera ns Affairs ([place]) Organization Department of [place] Address [address] [place] [address] Care Team Providers Care Lap Winder Name Role Phone LEN MENDOZA Primary [...] PART B Sep 23, 2014 PART B [id number] HARMONY MCCALL JR PATIENT MEDICARE (WNR) MEDICARE (M) PART A July 25, 2007 PART A [id number] HARMONY MCCALL JR PATIENT MEDICARE (WNR) MEDICARE (M) PART B July 25, 2007 PART B [id number] HARMONY MCCALL JR PATIENT MEDICARE (WNR) MEDICARE (M) PART A July 25, 2007 PART A [id number] [id number] [id number] HARMONY MCCALL JR PATIENT [facility] MEDICAL EXPENSE (OPT/PROF ) [facility] * Jan 24, 2015 [id number] [phone] CAROLE MCCALL SPOUSE Selected Encounter This section includes the information on record at [place] for the Encounter. Date/Time Encounter Type Encounter Description Reason Provider Source Oct 18, 2023 11:00 AM GROUP BEHAVE COUNS 2-10 WEIGHT MGMT & MOVE! PROG - GRP ICD-10-CM E66.09 Other obesity due to excess calories MIGUEL KRAMER Erin Encounter Template Text not used by [place] [...] AMBULATORY - NONE [facility] [place] [facility] Oct 25, 2023 11:00 AM [...] AMBULATORY - NONE [facility] [facility] Dec 06, 2023 11:00 AM AMBULATORY - NONE [place] Dec 11, 2023 10:00 AM AMBULATORY - NONE [facility] [place] [facility] Dec 11, 2023 01:00 PM AMBULATORY - MEDICINE [place] [facility] [place] [facility] Dec 13, 2023 11:00 AM AMBULATORY - NONE [place] Dec 20, 2023 11:00 AM AMBULATORY - NONE [place] Dec 25, 2023 10:00 AM AMBULATORY - NONE [facility] [place] [facility] Dec 27, 2023 11:00 AM AMBULATORY - NONE [place] Jan 03, 2024 11:00 AM AMBULATORY - NONE [place] Jan 08, 2024 10:00 AM AMBULATORY - NONE [facility] [facility] Jan 10, 2024 11:00 AM AMBULATORY - NONE [place] Jan 17, 2024 11:00 AM AMBULATORY - NONE [place] Jan 21, 2024 11:00 AM AMBULATORY - MEDICINE [facility] Encounter Notes: All associated encounter notes This section contains the clinical notes associated to the Encounter. Date/Time Encounter Note(s) Provider Source Oct 18, 2023 11:00 AM MOVE NOTE: LOCAL TITLE: WEIGHT MANAGEMENT/MOVE! OUTPATIENT GROUP NOTE STANDARD TITLE: MOVE NOTE DATE OF NOTE: OCT 18, 2023@11:00 ENTRY DATE: OCT 19, 2023@09:16:38 AUTHOR: SANTIAGO KRAMER COSIGNER: URGENCY: STATUS: COMPLETED Franklin participated in MOVE! Group Counseling via [facility] on October 18, 2023. The was provided with information on [facility] and has given verbal consent to use group [facility] services for their healthcare. The copy of the Group Telehealth Agreement has been mailed to the . The Veterans location/emergency contact number were confirmed. The Emergency Call Relay Center ([phone]) was available. The visit was locked for security and privacy. Franklin identified with 2 identifiers: [ ] Full Name [ ] Address Veterans attended the [facility] MOVE! group session on this [...] goals for the next week. The next [facility] MOVE! group meeting will be held on October @ 11:00am. Franklin's reported weight was 209.5 lbs. and gained 0.9 pounds since last group attended. Dx:e66.09 z68.30 The session lasted for 1 hour in duration. /johanny/ SANTIAGO KRAMER STAFF DIETITIAN Signed: 10/19/2023 09:33 Receipt Acknowledged By: 10/19/2023 23:19 /johanny/ GORDON PATHAK, Ph.D. CLINICAL PSYCHOLOGIST SANTIAGO KRAMERFIELD
--- OUTSIDE RECORDS SUMMARY | 2024-03-21 08:09 | XMS_ITS | Encounter Summary ---
Author Name Department of Vetera [place] Affairs ([place]) Organization Department [place] Address [address] [place] [address] Care Team Providers Care Ticket Marker Name Role Phone LEN MENDOZA Primary Care [...] PART B Sep 23, 2014 PART B [id number] [id number] [phone] [id number] HARMONY MCCALL JR PATIENT MEDICARE (WNR) MEDICARE (M) PART A July 25, 2007 PART A [id number] HARMONY MCCALL JR PATIENT MEDICARE (WNR) MEDICARE (M) PART B July 25, 2007 PART B [id number] [id number] HARMONY MCCALL JR PATIENT MEDICARE (WNR) MEDICARE (M) PART A July 25, 2007 PART A [id number] [id number] HARMONY MCCALL JR PATIENT [facility] MEDICAL EXPENSE (OPT/PROF ) [facility] * Jan 24, 2015 [id number] [phone] CAROLE MCCALL SPOUSE Selected Encounter This [...] 23, 2023 09:00 AM [facility] Oct 25, 2023 11:00 AM AMBULATORY [...] 03, 2023 02:00 PM [facility] Dec 06, 2023 11:00 AM AMBULATORY - NONE [place] Dec 11, 2023 10:00 AM AMBULATORY - NONE [place] [facility] Dec 11, 2023 01:00 PM AMBULATORY - MEDICINE [place] [facility] [place] [facility] Dec 13, 2023 11:00 AM AMBULATORY - NONE [place] Dec 20, 2023 11:00 AM AMBULATORY - NONE [place] Dec 25, 2023 10:00 AM AMBULATORY - NONE [place] [facility] [place] [facility] Dec 27, 2023 11:00 AM AMBULATORY - NONE [place] Jan 03, 2024 11:00 AM AMBULATORY - NONE [place] Jan 08, 2024 10:00 AM AMBULATORY - NONE [place] [facility] [place] [facility] Jan 10, 2024 11:00 AM [...] AUTHOR: SANTIAGO KRAMER COSIGNER: URGENCY: STATUS: COMPLETED [place] participated in MOVE! Group Counseling via [facility] on October 04, 2023. The was provided with information on [facility] and has given verbal [...] Name [ ] Address Veterans attended the [facility] MOVE! group session on [...] goals for the next week. The next [facility] MOVE! group meeting will be held on September @ 11:00am due to the September 26 holiday falling on a next week. Veterans were made aware of the schedule change in today's group. Mead's reported weight was 209 lbs. and lost 1.1 pounds since last group attended. Dx: e66.09 z68.30 The session lasted for 1 hour in duration. /johanny/ SANTIAGO KRAMER STAFF DIETITIAN Signed: 10/05/2023 12:48 SANTIAGO KRAMER [place]
--- OUTSIDE RECORDS SUMMARY | 2024-03-21 08:09 | XMS_ITS | Encounter Summary ---
Author Name Department [place] Organization [place] Address [address] [place] [address] Care Team Providers Care Window And Siding Craftsman Name Role Phone LEN MENDOZA Primary Care [...] PART B Sep 23, 2014 PART B [id number] HARMONY MCCALL JR PATIENT MEDICARE (WNR) MEDICARE (M) PART A July 25, 2007 PART A [id number] [id number] HARMONY MCCALL JR PATIENT MEDICARE (WNR) MEDICARE (M) PART B July 25, 2007 PART B [id number] [id number] HARMONY MCCALL JR PATIENT MEDICARE (WNR) MEDICARE (M) PART A July 25, 2007 PART A [id number] [phone] [id number] HARMONY MCCALL JR PATIENT [facility] MEDICAL EXPENSE (OPT/PROF ) [facility] * Jan 24, 2015 [id number] CAROLE MCCALL SPOUSE Selected Encounter This [...] PRIMARY Lack of physical exercise JANIE LAZCANO CT [facility] [place] [facility] Plan of Treatment: Future Appointments (+ [...] - NONE [place] [facility] [facility] Oct 25, 2023 11:00 AM AMBULATORY [...] - NONE [place] [facility] [place] [facility] Dec 06, 2023 11:00 AM AMBULATORY - NONE [place] Dec 11, 2023 10:00 AM AMBULATORY - NONE [place] [facility] [place] [facility] Dec 11, 2023 01:00 PM AMBULATORY - MEDICINE [place] [facility] [place] [place] [facility] Dec 13, 2023 11:00 AM AMBULATORY - NONE [place] Dec 20, 2023 11:00 AM AMBULATORY - NONE [place] Dec 25, 2023 10:00 AM AMBULATORY - NONE [place] [facility] [place] [facility] Dec 27, 2023 11:00 AM AMBULATORY - NONE [place] Jan 03, 2024 11:00 AM AMBULATORY - NONE [place] Jan 08, 2024 10:00 AM AMBULATORY - NONE [place] [facility] [place] [facility] Jan 10, 2024 11:00 AM AMBULATORY - NONE [place] Jan 17, 2024 11:00 AM AMBULATORY - NONE [place] Jan 21, 2024 11:00 AM AMBULATORY - MEDICINE [place] [facility] [place] [place] [facility] Social History: Smoking Status (Most current) [...] YRS OR MORE CT [facility] [facility] Tobacco Use History This section includes a history of the smoking, or tobacco-related health factors, that were collected on or before the date of the Encounter. The data comes from the [place] facility where the Encounter took place. Date/Time Smoking Status/Tobacco Use Comment F acility Jan 26, 2023 01:30 PM VA-TOBACCO QUIT 15 YRS OR MORE [facility] [place] [place] [facility] Jan 27, 2022 11:00 AM VA-TOBACCO FORMER USER [place] [facility] [place] [facility] Jan 27, 2022 11:00 AM VA-TOBACCO QUIT 15 YRS OR MORE [place] [facility] [place] [facility] Sep 17, 2020 09:00 AM VA-TOBACCO FORMER USER [place] [facility] [place] [facility] Sep 17, 2020 09:00 AM VA-TOBACCO QUIT 15 YRS OR MORE [place] [facility] [place] [facility] Jun 04, 2019 02:57 PM VA-TOBACCO NEVER USED [facility] [place] [facility] Mar 14, 2018 11:23 AM VA-TOBACCO FORMER USER [place] [facility] [place] [facility] Mar 14, 2018 11:23 AM VA-TOBACCO QUIT 15 YRS OR MORE [facility] Apr 04, 2017 12:30 PM QUIT TOBACCO USE > 7 YEARS AGO [facility] Apr 05, 2016 01:02 PM [...] COMPLETED GEROFIT VVC/VCM/VOD Telehealth Supervised Exercise NOTE [place] Provided informed consent to receive treatment via Telehealth., [place] mailed and has been made verbally aware of Telehealth Group [place] practices. [place]'s Location: address on record unless specified below. Emergency Contact: on record unless specified below. participated remotely in the Gerofit exercise program today through [place] Virtual Corporate Security Officer. Activities were focused on progression of [...] PHYSICAL THERAPIST Signed: 10/19/2023 10:39 JANIE LAZCANO [facility]
--- OUTSIDE RECORDS SUMMARY | 2024-03-21 08:10 | XMS_ITS | Encounter Summary ---
Author Name [place] Organization [place] Address [address] [place] [address] Care Team Providers Care Chief Nursing Executive Name Role Phone LEN MENDOZA Primary Care Provider [facility] Insurance Providers: All historical and [...] PART B Sep 23, 2014 PART B [id number] HARMONY MCCALL JR PATIENT MEDICARE (WNR) MEDICARE (M) PART A July 25, 2007 PART A [id number] [phone] HARMONY MCCALL JR PATIENT MEDICARE (WNR) MEDICARE (M) PART B July 25, 2007 PART B [id number] [id number] HARMONY MCACLL JR PATIENT MEDICARE (WNR) MEDICARE (M) PART A July 25, 2007 PART A [id number] HARMONY MCCALL JR PATIENT [facility] MEDICAL EXPENSE (OPT/PROF ) [facility] * Jan 24, 2015 [id number] CAROLE MCCALL SPOUSE Selected Encounter This section includes the information on record at [place] for the Encounter. Date/Time Encounter Type Encounter Description Reason Pro vider Source Oct 26, 2023 01:24 PM Outpatient Encounter TELEPHONE/ANCILLARY IHE Encounter Template Text not used by [place] Plan of Treatment: Future Appointments (+ 6 [...] AMBULATORY - NONE [place] [facility] [place] [facility] Dec 06, 2023 11:00 AM AMBULATORY - NONE [place] Dec 11, 2023 10:00 AM AMBULATORY - NONE [place] [facility] [place] [facility] Dec 11, 2023 01:00 PM AMBULATORY - MEDICINE [place] [facility] Dec 13, 2023 11:00 AM AMBULATORY - NONE [place] Dec 20, 2023 11:00 AM AMBULATORY - NONE [place] Dec 25, 2023 10:00 AM AMBULATORY - NONE [place] [facility] [place] [facility] Dec 27, 2023 11:00 AM AMBULATORY - NONE [place] Jan 03, 2024 11:00 AM AMBULATORY - NONE [place] Jan 08, 2024 10:00 AM AMBULATORY - NONE [place] [facility] [place] [facility] Jan 10, 2024 11:00 AM AMBULATORY - NONE [place] Jan 17, 2024 11:00 AM AMBULATORY - NONE [place] Jan 21, 2024 11:00 AM AMBULATORY - MEDICINE [place] [facility] Jan 22, 2024 11:00 AM AMBULATORY - MEDICINE [place] [facility] Jan 22, 2024 11:00 AM AMBULATORY - NONE [place] [place] [facility] Social History: Smoking Status (Most current) [...] 26, 2023 01:30 PM VA-TOBACCO FORMER USER [place] [facility] Tobacco Use History This section includes a history of the smoking, or tobacco-related health factors, that were collected on or before the date of the Encounter. The data comes from the [place] facility where the Encounter took place. Date/Time Smoking Status/Tobacco Use Comment F acility Jan 26, 2023 01:30 PM VA-TOBACCO QUIT 15 YRS OR MORE [place] [facility] [place] [facility] Jan 27, 2022 11:00 AM VA-TOBACCO FORMER USER [place] [place] [facility] Jan 27, 2022 11:00 AM VA-TOBACCO QUIT 15 YRS OR MORE [place] [facility] [place] [facility] Sep 17, 2020 09:00 AM VA-TOBACCO FORMER USER [place] [place] [facility] Sep 17, 2020 09:00 AM VA-TOBACCO QUIT 15 YRS OR MORE [place] [facility] [place] [facility] Jun 04, 2019 02:57 PM VA-TOBACCO NEVER USED [place] [facility] [place] [facility] Mar 14, 2018 11:23 AM VA-TOBACCO FORMER USER [place] [facility] [place] [facility] Mar 14, 2018 11:23 AM VA-TOBACCO QUIT 15 YRS OR MORE [place] [facility] [place] [facility] Apr 04, 2017 12:30 PM QUIT TOBACCO USE > 7 YEARS AGO [place] [facility] [place] [facility] Apr 05, 2016 01:02 PM QUIT TOBACCO USE > 7 YEARS AGO quit in 1984 [place] [place] [facility]
--- OUTSIDE RECORDS SUMMARY | 2024-03-21 08:10 | XMS_ITS | Encounter Summary ---
Author Name [place] Organization [place] Address [address] [place] [address] Care Team Providers Care Die Fitter Name Role Phone LEN MENDOZA Primary Care [...] PART B Sep 23, 2014 PART B [id number] [phone] [id number] HARMONY MCCALL JR PATIENT MEDICARE (WNR) MEDICARE (M) PART A July 25, 2007 PART A [id number] HARMONY MCCALL JR PATIENT MEDICARE (WNR) MEDICARE (M) PART B July 25, 2007 PART B [id number] [id number] HARMONY MCCALL JR PATIENT MEDICARE (WNR) MEDICARE (M) PART A July 25, 2007 PART A [id number] [id number] HARMONY MCCALL JR [facility]IENT [facility] (OPT/PROF ) [facility] * Jan 24, 2015 [id number] CAROLE MCCALL SPOUSE Selected Encounter This section includes the information on record at [place] for the Encounter. Date/Time Encounter Type Encounter Description Reason Pro vider Source Oct 26, 2023 02:30 PM Outpatient Encounter HEALTH/WELLBEING [facility] IHE Encounter Template Text not used by [place] Plan of Treatment: Future Appointments (+ 6 [...] [place] [place] [facility] Dec 06, 2023 11:00 AM AMBULATORY - NONE [place] Dec 11, 2023 10:00 AM AMBULATORY - NONE [place] [facility] [place] [facility] Dec 11, 2023 01:00 PM AMBULATORY - MEDICINE [place] [facility] Dec 13, 2023 11:00 AM AMBULATORY - NONE [place] Dec 20, 2023 11:00 AM AMBULATORY - NONE [place] Dec 25, 2023 10:00 AM AMBULATORY - NONE [place] [facility] [place] [facility] Dec 27, 2023 11:00 AM AMBULATORY - NONE [place] Jan 03, 2024 11:00 AM AMBULATORY - NONE [place] Jan 08, 2024 10:00 AM AMBULATORY - NONE [place] [facility] [place] [facility] Jan 10, 2024 11:00 AM AMBULATORY - NONE [place] Jan 17, 2024 11:00 AM AMBULATORY - NONE [place] Jan 21, 2024 11:00 AM AMBULATORY - MEDICINE [place] [facility] Jan 22, 2024 11:00 AM [facility]ORY [facility] Jan 22, 2024 11:00 AM AMBULATORY - NONE [place] [facility] Social History: Smoking Status [...] 26, 2023 01:30 PM VA-TOBACCO FORMER USER [place] [facility] [...] YRS OR MORE [place] [facility] [place] [facility] Jan 27, 2022 11:00 AM VA-TOBACCO FORMER USER [place] [facility] Jan 27, 2022 11:00 AM VA-TOBACCO QUIT 15 YRS OR MORE [place] [facility] [facility] Sep 17, 2020 09:00 AM VA-TOBACCO FORMER USER [place] [facility] Sep 17, 2020 09:00 AM VA-TOBACCO QUIT 15 YRS OR MORE [place] [facility] Jun 04, 2019 02:57 PM VA-TOBACCO NEVER USED [place] [facility] [place] [facility] Mar 14, 2018 11:23 AM VA-TOBACCO FORMER USER [place] [facility] [place] [facility] Mar 14, 2018 11:23 AM VA-TOBACCO QUIT 15 YRS OR MORE [place] [facility] [place] [facility] Apr 04, 2017 12:30 PM QUIT TOBACCO USE > 7 YEARS AGO [place] [facility] [place] [facility] Apr 05, 2016 01:02 PM QUIT TOBACCO USE > 7 YEARS AGO quit in 1984 [place] [facility] Encounter Notes: All associated encounter notes This section contains the clinical notes associated to the Encounter. Date/Time Encounter Note(s) Provider Source Oct 26, 2023 02:30 PM LETTERS: LOCAL TITLE: PATIENT LETTER (B) STANDARD TITLE: LETTERS DATE OF NOTE: OCT 26, 2023@14:30 ENTRY DATE: OCT 26, 2023@14:30:44 AUTHOR: JOSI TALBERT COSIGNER: URGENCY: STATUS: COMPLETED [facility] Toll Free Number [facility] scheduling can be reached at ext. [phone] [facility]- ext. [phone] [facility]- ext. [phone] [facility]- ext. [phone] OCT 26, 2023 HARMONY MCCALL [address] [place] [address] Dear HARMONY MCCALL JR We would like to assist you in scheduling a Whole Health Coaching COnsult appointment at the [place]. We have been unable to reach you by phone. To schedule this appointment please call us at ext. [phone]. Our booking appointment hours are Sunday through [...] Your health is important to us. Sincerely, [facility] [address] [facility] [address] [place] [address] [place] [address] [facility] [address] [facility] [address] [place] [address] [place] [address] ext. [phone] [facility] [address] [facility] [address] [place] [address] [place] [address] [address]. [phone] [phone] ext[address] [phone] JOSI TALBERT [facility]
--- OUTSIDE RECORDS SUMMARY | 2024-03-21 08:10 | XMS_ITS | Encounter Summary ---
Author Name [place] Address [address] [place] [id number] Care Team Providers Care Gun Examiner Name Role Phone LEN MENDOZA Primary [...] PART B Sep 23, 2014 PART B [id number] HARMONY MCCALL JR PATIENT MEDICARE (WNR) MEDICARE (M) PART A July 25, 2007 PART A [id number] [phone] HARMONY MCCALL JR PATIENT MEDICARE (WNR) MEDICARE (M) PART B July 25, 2007 PART B [id number] HARMONY MCCALL JR PATIENT MEDICARE (WNR) MEDICARE (M) PART A July 25, 2007 PART A [id number] HARMONY MCCALL JR PATIENT [facility] MEDICAL EXPENSE (OPT/PROF ) [facility] * Jan 24, 2015 [id number] 18 CAROLE MCCALL SPOUSE Selected Encounter This section includes the information on record at [place] for the Encounter. Date/Time Encounter Type Encounter Description Reason Provider Source Oct 24, 2023 08:00 AM EXERCISE CLASS HEALTH/WELLBEING SRVS ICD-10-CM Z72.3 Lack of physical exercise DAMON ONEILL [facility] Encounter Template Text not used by [place] Assessments - Encounter Diagnoses This section includes the primary and secondary diagnoses documented for the Encounter. Date/Time Primary/Secondary Diagnosis Diagnosis Name Provider Source Oct 24, 2023 10:52 AM PRIMARY Lack of physical exercise DAMON ONEILL [place] [facility] [place] [facility] Plan of Treatment: Future Appointments [...] AMBULATORY - NONE [facility] [place] [facility] Dec 06, 2023 11:00 AM AMBULATORY - NONE [place] Dec 11, 2023 10:00 AM AMBULATORY - NONE [facility] [place] [facility] Dec 11, 2023 01:00 PM AMBULATORY - MEDICINE [facility] [place] [facility] Dec 13, 2023 11:00 AM AMBULATORY - NONE [place] Dec 20, 2023 11:00 AM AMBULATORY - NONE [place] Dec 25, 2023 10:00 AM AMBULATORY - NONE [facility] [place] [facility] Dec 27, 2023 11:00 AM AMBULATORY - NONE [place] Jan 03, 2024 11:00 AM AMBULATORY - NONE [place] Jan 08, 2024 10:00 AM AMBULATORY - NONE [facility] [place] [facility] Jan 10, 2024 11:00 AM AMBULATORY - NONE [place] Jan 17, 2024 11:00 AM AMBULATORY - NONE [place] Jan 21, 2024 11:00 AM AMBULATORY - MEDICINE [facility] [place] [facility] Jan 22, 2024 11:00 AM AMBULATORY - MEDICINE [facility] [place] [facility] Social History: Smoking Status (Most [...] VA-TOBACCO FORMER USER [facility] [place] [facility] Tobacco Use History This section includes a history of the smoking, or tobacco-related health factors, that were collected on or before the date of the Encounter. The data comes from the [place] facility where the Encounter took place. Date/Time Smoking Status/Tobacco Use Comment F acility Jan 26, 2023 01:30 PM VA-TOBACCO QUIT 15 YRS OR MORE [facility] [place] [facility] Jan 27, 2022 11:00 AM VA-TOBACCO FORMER USER [facility] [place] [facility] Jan 27, 2022 11:00 AM VA-TOBACCO QUIT 15 YRS OR MORE [facility] [place] [facility] Sep 17, 2020 09:00 AM VA-TOBACCO FORMER USER [facility] [place] [facility] Sep 17, 2020 09:00 AM VA-TOBACCO QUIT 15 YRS OR MORE [facility] [place] [facility] Jun 04, 2019 02:57 PM VA-TOBACCO NEVER USED [facility] [place] [facility] Mar 14, 2018 11:23 AM VA-TOBACCO FORMER USER [facility] [place] [facility] Mar 14, 2018 11:23 AM VA-TOBACCO QUIT 15 YRS OR MORE [facility] Apr 04, 2017 12:30 PM QUIT TOBACCO USE > [facility] A[facility] Apr 05, 2016 01:02 PM QUIT TOBACCO USE > 7 YEARS AGO quit in 1984 [facility] Encounter Notes: All associated encounter [...] verbally aware of [facility] [place] practices. [place] Location: address on record unless specified below. Emergency Contact: on record unless specified below. participated remotely in the Gerofit exercise program today through [place] Virtual Patch Sander. Activities were focused on progression of their [...] whole health concerns. /johanny/ VIOLETTA FINK LICENSE FOUNDER / CEO Signed: 10/24/2023 10:57 DOUG ONEILL [facility]
--- OUTSIDE RECORDS SUMMARY | 2024-03-21 08:10 | XMS_ITS | Encounter Summary ---
Author Name Department [place] Organization [place] Address [address] [place] [id number] Care Team Providers Care Surface Water Manager Name Role Phone LEN MENDOZA Primary [...] PART B Sep 23, 2014 PART B [id number] HARMONY MCCALL JR PATIENT MEDICARE (WNR) MEDICARE (M) PART A July 25, 2007 PART A [id number] [phone] HARMONY MCCALL JR PATIENT MEDICARE (WNR) MEDICARE (M) PART B July 25, 2007 PART B [id number] HARMONY MCCALL JR PATIENT MEDICARE (WNR) MEDICARE (M) PART A July 25, 2007 PART A [id number] [id number] HARMONY MCCALL JR PATIENT [facility] MEDICAL EXPENSE (OPT/PROF ) [facility] * Jan 24, 2015 [id number] 18 CAROLE MCCALL SPOUSE Selected Encounter This section includes the information on record at [place] for the Encounter. Date/Time Encounter Type Encounter Description Reason Provider Source Oct 26, 2023 10:32 AM EXERCISE CLASS HEALTH/WELLBEING SRVS ICD-10-CM Z72.3 Lack of physical exercise JANIE LAZCANO [facility] Encounter Template Text not used by [place] Assessments - Encounter Diagnoses This section includes the primary and secondary diagnoses documented for the Encounter. Date/Time Primary/Secondary Diagnosis Diagnosis Name Provider Source Oct 26, 2023 11:01 AM PRIMARY Lack of physical exercise JANIE LAZCANO [place] [facility] [place] [facility] Plan of Treatment: Future Appointments [...] AMBULATORY - NONE [facility] [place] [facility] Dec 06, 2023 11:00 AM AMBULATORY - NONE [place] Dec 11, 2023 10:00 AM AMBULATORY - NONE [facility] [place] [facility] Dec 11, 2023 01:00 PM AMBULATORY - MEDICINE [facility] [place] [facility] Dec 13, 2023 11:00 AM AMBULATORY - NONE [place] Dec 20, 2023 11:00 AM AMBULATORY - NONE [place] Dec 25, 2023 10:00 AM AMBULATORY - NONE [facility] [place] [facility] Dec 27, 2023 11:00 AM AMBULATORY - NONE [place] Jan 03, 2024 11:00 AM AMBULATORY - NONE [place] Jan 08, 2024 10:00 AM AMBULATORY - NONE [facility] [place] [facility] Jan 10, 2024 11:00 AM AMBULATORY - NONE [place] Jan 17, 2024 11:00 AM AMBULATORY - NONE [place] Jan 21, 2024 11:00 AM AMBULATORY - MEDICINE [facility] [place] [facility] Jan 22, 2024 11:00 AM AMBULATORY - [place]ICINE [place] [facility] Jan 22, 2024 11:00 AM AMBULATORY - NONE [facility] [place] [facility] Social History: Smoking Status (Most [...] PM VA-TOBACCO QUIT 15 YRS OR MORE [place] [facility] [place] [facility] Tobacco Use History This section includes a history of the smoking, or tobacco-related health factors, that were collected on or before the date of the Encounter. The data comes from the [place] facility where the Encounter took place. Date/Time Smoking Status/Tobacco Use Comment F acility Jan 26, 2023 01:30 PM VA-TOBACCO QUIT 15 YRS OR MORE [facility] [place] [facility] Jan 27, 2022 11:00 AM VA-TOBACCO FORMER USER [facility] [place] [facility] Jan 27, 2022 11:00 AM VA-TOBACCO QUIT 15 YRS OR MORE [facility] [place] [facility] Sep 17, 2020 09:00 AM VA-TOBACCO FORMER USER [facility] [place] [facility] Sep 17, 2020 09:00 AM VA-TOBACCO QUIT 15 YRS OR MORE [facility] [place] [facility] Jun 04, 2019 02:57 PM VA-TOBACCO NEVER USED VA [facility] [place] [facility] Mar 14, 2018 11:23 AM VA-TOBACCO FORMER USER [facility] [place] [facility] Mar 14, 2018 11:23 AM VA-TOBACCO QUIT 15 YRS OR MORE [facility] Apr 04, 2017 12:30 PM QUIT TOBACCO USE > 7 YEARS AGO [facility] Apr 05, 2016 01:02 PM QUIT TOBACCO USE > 7 YEARS AGO quit in 1984 [facility] Encounter Notes: All associated [...] informed consent to receive treatment via Telehealth., [place] mailed and has been made verbally aware of [facility] [place] practices. [place]'s Location: address on record unless specified below. Emergency Contact: on record unless specified below. participated remotely in the [facility] exercise program today through [place] Virtual Chip Mixing Machine Operator. Activities were focused on progression of their individual exercise prescription (cardiorespiratory fitness training, strength training, etc.) and group-based exercise sessions to include, but not limited to: flexibility training, balance training & functional circuit training. Exercise participation was supervised remotely by [facility] health staff and any questions/concerns were addressed with the patient. Modifications were made to programming as appropriate to suit Veterans individual needs, preferences, and whole health concerns. /es/ Janie Lazcano PT,DPT PHYSICAL THERAPIST Signed: 10/26/2023 11:03 JANIE LAZCANO [facility]
--- OUTSIDE RECORDS SUMMARY | 2024-03-21 08:10 | XMS_ITS | Encounter Summary ---
Author Name Department [place] Organization [place] Address [address] [place] [address] Care Team Providers Care Commodity Specialist Name Role Phone LUCAS STRATTON Primary Care [...] PART B Sep 23, 2014 PART B [id number] HARMONY MCCALL JR PATIENT MEDICARE (WNR) MEDICARE (M) PART A July 25, 2007 PART A [id number] [phone] HARMONY MCCALL JR PATIENT MEDICARE (WNR) MEDICARE (M) PART B July 25, 2007 PART B [id number] HARMONY MCCALL JR PATIENT MEDICARE (WNR) MEDICARE (M) PART A July 25, 2007 PART A [id number] HARMONY MCCALL JR PATIENT [facility] MEDICAL EXPENSE (OPT/PROF ) [facility] * Jan 24, 2015 [id number] 18 CAROLE MCCALL SPOUSE Selected Encounter This section includes the information on record at [place] for the Encounter. Date/Time Encounter Type Encounter Description Reason Provider Source Oct 26, 2023 10:00 AM UNLISTED PHYSCL MED/REHAB PX HEALTH/WELLBEING SRVS ICD-10-CM Z72.3 Lack of physical exercise TERRY COATES [facility] Encounter Template Text not used by [place] Assessments - Encounter Diagnoses This section includes the primary and secondary diagnoses documented for the Encounter. Date/Time Primary/Secondary Diagnosis Diagnosis Name Provider Source Oct 26, 2023 10:44 AM PRIMARY Lack of physical exercise TERRY COATES [place] [facility] [facility] Plan of Treatment: Future Appointments (+ 6 [...] [place] [facility] Dec 27, 2023 11:00 AM AMBULATORY - NONE [place] Jan 03, 2024 11:00 AM AMBULATORY - NONE [place] Jan 08, 2024 10:00 AM AMBULATORY - NONE [facility] [place] [facility] Jan 10, 2024 11:00 AM AMBULATORY - NONE [place] Jan 17, 2024 11:00 AM AMBULATORY - NONE [place] Jan 21, 2024 11:00 AM AMBULATORY - MEDICINE [facility] [place] [facility] Jan 22, 2024 11:00 AM AMBULATORY - [place]ICINE [place] [facility] Jan 22, 2024 11:00 AM AMBULATORY - NONE [facility] [place] [facility] Social History: Smoking Status (Most current) and [...] FORMER USER [facility] [place] [facility] Tobacco Use History This section includes a history of the smoking, or tobacco-related health factors, that were collected on or before the date of the Encounter. The data comes from the [place] facility where the Encounter took place. Date/Time Smoking Status/Tobacco Use Comment F acility Jan 26, 2023 01:30 PM VA-TOBACCO QUIT 15 YRS OR MORE [facility] [place] [facility] Jan 27, 2022 11:00 AM VA-TOBACCO FORMER USER [facility] [place] [facility] Jan 27, 2022 11:00 AM VA-TOBACCO QUIT 15 YRS OR MORE [facility] [place] [facility] Sep 17, 2020 09:00 AM VA-TOBACCO FORMER USER [facility] [place] [facility] Sep 17, 2020 09:00 AM VA-TOBACCO QUIT 15 YRS OR MORE [facility] [place] [facility] Jun 04, 2019 02:57 PM VA-TOBACCO NEVER USED [facility] [place] [facility] Mar 14, 2018 11:23 AM VA-TOBACCO FORMER USER [facility] [place] [facility] Mar 14, 2018 11:23 AM VA-TOBACCO QUIT 15 YRS OR MORE [facility] Apr 04, 2017 12:30 PM QUIT TOBACCO USE > 7 YEARS AGO [facility] Apr 05, 2016 01:02 PM QUIT TOBACCO USE > 7 YEARS AGO quit in 1984 [facility] Encounter Notes: All associated encounter [...] and 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 Q34. What activities would you [...] and/or group meetings to help support the with reaching their desired goals. Are you interested in receiving Whole Health Coaching outside of the GeroFit program? Yes /johanny/ TERRY COATES PT, DPT PHYSICAL THERAPIST Signed: 10/26/2023 11:00 TERRY COATES [place] [facility] [facility] Oct 26, 2023 10:38 AM GERIATRIC MEDICINE [...] veterans participation in the Gerofit Exercise Program. [place] HARMONY MCCALL JR completed their Annual physical function [facility]. These tasks measure strength and endurance by [...] this note, please addend YES or NO. /johanny/ TERRY COATES PT, DPT PHYSICAL THERAPIST Signed: 10/26/2023 10:44 Receipt Acknowledged By: 10/29/2023 09:27 /johanny/ Lucas Stratton DNP, CUSTOMER SOLUTIONS SPECIALIST-BC, CNL Primary Care Nurse Practitioner 10/29/2023 ADDENDUM STATUS: COMPLETED yes /es/ Lucas Stratton DNP, CUSTOMER SOLUTIONS SPECIALIST-BC, CNL Primary Care Nurse Practitioner Signed: 10/29/2023 09:27 TERRY COATESRL MICHELLE DIAZ [facility]
--- OUTSIDE RECORDS SUMMARY | 2024-03-21 08:11 | XMS_ITS | Encounter Summary ---
Author Name [place] Address [address] [place] [address] Care Team Providers Care Glass Furnace Operator Name Role Phone LEN MENDOZA Primary [...] PART B Sep 23, 2014 PART B [id number] HARMONY MCCALL JR PATIENT MEDICARE (WNR) MEDICARE (M) PART A July 25, 2007 PART A [id number] HARMONY MCCALL JR PATIENT MEDICARE (WNR) MEDICARE (M) PART B July 25, 2007 PART B [id number] [id number] HARMONY MCCALL JR PATIENT MEDICARE (WNR) MEDICARE (M) PART A July 25, 2007 PART A [id number] HARMONY MCCALL JR PATIENT [facility] MEDICAL EXPENSE (OPT/PROF ) [facility] * Jan 24, 2015 [id number] CAROLE MCCALL SPOUSE Selected Encounter This [...] PRIMARY Lack of physical exercise DAMON ONEILL [place] [facility] [place] [facility] Plan of Treatment: Future Appointments [...] - NONE [place] [facility] [place] [facility] Dec 06, 2023 11:00 AM AMBULATORY - NONE [place] Dec 11, 2023 10:00 AM AMBULATORY - NONE [facility] [place] [facility] Dec 11, 2023 01:00 PM AMBULATORY - MEDICINE [facility] [place] [facility] Dec 13, 2023 11:00 AM AMBULATORY - NONE [place] Dec 20, 2023 11:00 AM AMBULATORY - NONE [place] Dec 25, 2023 10:00 AM AMBULATORY - NONE [facility] [place] [facility] Dec 27, 2023 11:00 AM AMBULATORY - NONE [place] Jan 03, 2024 11:00 AM AMBULATORY - NONE [place] Jan 08, 2024 10:00 AM AMBULATORY - NONE [facility] [place] [facility] Jan 10, 2024 11:00 AM AMBULATORY - NONE [place] Jan 17, 2024 11:00 AM AMBULATORY - NONE [place] Jan 21, 2024 11:00 AM AMBULATORY - MEDICINE [facility] [place] [facility] Jan 22, 2024 11:00 AM AMBULATORY - [place]ICINE [place] [facility] Jan 22, 2024 11:00 AM AMBULATORY - NONE [facility] [place] [facility] Jan 24, 2024 11:00 AM [...] FORMER USER [facility] [place] [facility] Tobacco Use History This section includes a history of the smoking, or tobacco-related health factors, that were collected on or before the date of the Encounter. The data comes from the [place] facility where the Encounter took place. Date/Time Smoking Status/Tobacco Use Comment F acility Jan 26, 2023 01:30 PM VA-TOBACCO QUIT 15 YRS OR MORE [facility] [place] [facility] Jan 27, 2022 11:00 AM VA-TOBACCO FORMER USER [facility] [place] [facility] Jan 27, 2022 11:00 AM VA-TOBACCO QUIT 15 YRS OR MORE [facility] [place] [facility] Sep 17, 2020 09:00 AM VA-TOBACCO FORMER USER [facility] [place] [facility] Sep 17, 2020 09:00 AM VA-TOBACCO QUIT 15 YRS OR MORE [facility] [place] [facility] Jun 04, 2019 02:57 PM VA-TOBACCO NEVER USED VA [facility] [place] [facility] Mar 14, 2018 11:23 AM VA-TOBACCO FORMER USER [facility] [place] [facility] Mar 14, 2018 11:23 AM VA-TOBACCO QUIT 15 YRS OR MORE [facility] Apr 04, 2017 12:30 PM QUIT TOBACCO USE > 7 YEARS AGO [facility] Apr 05, 2016 01:02 PM QUIT [...] GEROFIT VVC/VCM/VOD Telehealth Supervised Exercise NOTE [place] Provided informed consent to receive treatment via Telehealth., mailed and has been made verbally aware of [facility] [place] practices. [place]'s Location: address on record unless specified below. Emergency Contact: on record unless specified below. participated remotely in the Gerofit exercise program today through [place] Virtual Equipment Application Specialist. Activities were focused on progression of [...] whole health concerns. /johanny/ VIOLETTA FINK LICENSE MOPHEAD TRIMMER AND WRAPPER Signed: 11/07/2023 11:27 DOUG ONEILL [facility]
--- OUTSIDE RECORDS SUMMARY | 2024-03-21 08:11 | XMS_ITS | Encounter Summary ---
Author Name [facility] [place] Organization [place] Address [address] [place] [address] Care Team Providers Care Research Geologist Name Role Phone LEN MENDOZA Primary Care [...] PART B Sep 23, 2014 PART B [id number] HARMONY MCCALL JR PATIENT MEDICARE (WNR) MEDICARE (M) PART A July 25, 2007 PART A [id number] [phone] [id number] HARMONY MCCALL JR PATIENT MEDICARE (WNR) MEDICARE (M) PART B July 25, 2007 PART B [id number] HARMONY MCCALL JR PATIENT MEDICARE (WNR) MEDICARE (M) PART A July 25, 2007 PART A [id number] HARMONY MCCALL JR PATIENT [facility] MEDICAL EXPENSE (OPT/PROF ) [facility] * Jan 24, 2015 [id number] 18 CAROLE MCCALL SPOUSE Selected Encounter This section includes the information on record at [place] for the Encounter. Date/Time Encounter Type Encounter Description Reason Provider Source Nov 01, 2023 11:00 AM HLTH BHV IVNTJ GRP EA ADDL WEIGHT MGMT & MOVE! PROG - GRP ICD-10-CM Z68.30 Body mass index [BMI] 30.0-30.9, adult GORDON PATHAK [facility] Encounter Template Text not used by [place] Assessments - Encounter Diagnoses This section includes the primary and secondary diagnoses documented for the Encounter. Date/Time Primary/Secondary Diagnosis Diagnosis Name Provider Source Nov 02, 2023 05:28 PM PRIMARY Body mass index [BMI] 30.0-30.9, adult GORDON PATHAK [facility] Nov 02, 2023 05:28 PM SECONDARY Other obesity due to excess calories GORDON PATHAK [facility] Plan of Treatment: Future Appointments (+ 6 [...] AMBULATORY - NONE [facility] [place] [facility] Dec 06, 2023 11:00 AM AMBULATORY - NONE [place] Dec 11, 2023 10:00 AM AMBULATORY - NONE [facility] [place] [facility] Dec 11, 2023 01:00 PM AMBULATORY - MEDICINE [facility] [place] [place] [facility] Dec 13, 2023 11:00 AM AMBULATORY - NONE [place] Dec 20, 2023 11:00 AM AMBULATORY - NONE [place] Dec 25, 2023 10:00 AM AMBULATORY - NONE [facility] [place] [facility] Dec 27, 2023 11:00 AM AMBULATORY - NONE [place] Jan 03, 2024 11:00 AM AMBULATORY - NONE [place] Jan 08, 2024 10:00 AM AMBULATORY - NONE [facility] [place] [facility] Jan 10, 2024 11:00 AM AMBULATORY - NONE [place] Jan 17, 2024 11:00 AM AMBULATORY - NONE [place] Jan 21, 2024 11:00 AM AMBULATORY - MEDICINE [facility] [place] [facility] Jan 22, 2024 11:00 AM AMBULATORY - [place]ICINE [place] [facility] Jan 22, 2024 11:00 AM AMBULATORY - NONE [facility] [place] [facility] Jan 24, 2024 11:00 [...] AUTHOR: GORDON PATHAK COSIGNER: URGENCY: STATUS: COMPLETED Pioneer participated in MOVE! Group Counseling via [facility] on November 01, 2023. The Pioneer was provided with information on [facility] and has given verbal consent to use group VVC services for their healthcare. The copy of the Group Telehealth Agreement has been mailed to the Pioneer. The Veterans location/emergency contact number were confirmed. The Emergency Call Relay Center ([phone]) was available. The visit was locked for security and privacy. Pioneer identified with 2 identifiers: [ ] Full Name [ ] Address Veterans attended the [facility] MOVE! group session on this date. MOVE! is a program designed to provide education about weight management skills to overweight and obese Veterans. Group members combined to gain 2.6 pounds since their last attended group. Group members began today's discussion by asking how their weight has trended since the beginning of the calendar year. Chief Technician X Ray shared that the group has gained over [...] late night snacking including carrots and cauliflower. Chief Technician X Ray shared the importance of a paradigm shift specifically suggesting that any unnecessary food should be avoided. The group was able to redefine hunger to include hunger for fun, companionship, entertainment, relaxation, etc. and learned that food will not cure any of these human needs. One Pioneer shared that eating when depressed doesn't make them feel less depressed (rather they are more depressed and ashamed of their coping strategy). Group members had difficulty identifying activities that would be fun in which to participate and stated that they would work this week on performing some of them. Group members shared their individual goals for the next week. The next [facility] MOVE! group meeting will be held on October @ 11:00am. Pioneer's reported weight was 209.7 lbs. and lost 1.3 pounds since last group attended. Dx: Obesity d/t Excess Calories Obesity E66.09 BMI 30.0-30.9 The session lasted for 1 hour in duration. /johanny/ GORDON PATHAK, Ph.D. CLINICAL PSYCHOLOGIST Signed: 11/02/2023 17:32 GORDON PATHAK
--- OUTSIDE RECORDS SUMMARY | 2024-03-21 08:11 | XMS_ITS ---
Author Name [facility] [place] [facility] [place] Address [address] [place] [id number] Care Team Providers Care Store Receiving Clerk Name Role Phone LEN MENDOZA Primary [...] PART B Sep 23, 2014 PART B [id number] HARMONY MCCALL JR PATIENT MEDICARE (WNR) MEDICARE (M) PART A July 25, 2007 PART A [id number] HARMONY MCCALL JR PATIENT MEDICARE (WNR) MEDICARE (M) PART B July 25, 2007 PART B [id number] [id number] HARMONY MCCALL JR PATIENT MEDICARE (WNR) MEDICARE (M) PART A July 25, 2007 PART A [id number] [id number] HARMONY MCCALL JR PATIENT [facility] MEDICAL EXPENSE (OPT/PROF ) [facility] * Jan 24, 2015 [id number] 18 CAROLE MCCALL SPOUSE Selected Encounter This section includes the information on record at [place] for the Encounter. Date/Time Encounter Type Encounter Description Reason Provider Source Oct 30, 2023 12:42 PM COLLJ & INTERPJ DATA EA 30 D SLEEP MEDICINE ICD-10-CM G47.[address], [address] CURTIS ARVIUZ IHE Encounter Template Text not used by VA Assessments - Encounter Diagnoses This section includes the primary and secondary diagnoses documented for the Encounter. Date/Time Primary/Secondary Diagnosis Diagnosis Name Provider Source Oct 30, 2023 12:43 PM PRIMARY Sleep apnea, unspecified CURTIS PUCKETT [place] [facility] [place] [facility] Plan of Treatment: Future Appointments [...] AMBULATORY - NONE [place] [facility] [place] [facility] Dec 06, 2023 11:00 AM AMBULATORY - NONE [place] Dec 11, 2023 10:00 AM AMBULATORY - NONE [facility] [place] [facility] Dec 11, 2023 01:00 PM AMBULATORY - MEDICINE [place] [facility] [place] [facility] Dec 13, 2023 11:00 AM AMBULATORY - NONE [place] Dec 20, 2023 11:00 AM AMBULATORY - NONE [place] Dec 25, 2023 10:00 AM AMBULATORY - NONE [facility] [place] [facility] Dec 27, 2023 11:00 AM AMBULATORY - NONE [place] Jan 03, 2024 11:00 AM AMBULATORY - NONE [place] Jan 08, 2024 10:00 AM AMBULATORY - NONE [facility] [place] [facility] Jan 10, 2024 11:00 AM AMBULATORY - NONE [place] Jan 17, 2024 11:00 AM AMBULATORY - NONE [place] Jan 21, 2024 11:00 AM AMBULATORY - MEDICINE [place] [facility] [place] [facility] Jan 22, 2024 11:00 AM AMBULATORY - [place]ICINE [place] [facility] Jan 22, 2024 11:00 AM AMBULATORY - NONE [facility] [place] [facility] Social History: Smoking Status (Most [...] VA-TOBACCO FORMER USER [facility] [place] [facility] Tobacco Use History This section includes a history of the smoking, or tobacco-related health factors, that were collected on or before the date of the Encounter. The data comes from the [place] facility where the Encounter took place. Date/Time Smoking Status/Tobacco Use Comment F acility Jan 26, 2023 01:30 PM VA-TOBACCO QUIT 15 YRS OR MORE [facility] [place] [facility] Jan 27, 2022 11:00 AM VA-TOBACCO FORMER USER [facility] [place] [facility] Jan 27, 2022 11:00 AM VA-TOBACCO QUIT 15 YRS OR MORE [facility] [place] [facility] Sep 17, 2020 09:00 AM VA-TOBACCO FORMER USER [facility] [place] [facility] Sep 17, 2020 09:00 AM VA-TOBACCO QUIT 15 YRS OR MORE [facility] [place] [facility] Jun 04, 2019 02:57 PM VA-TOBACCO NEVER USED [facility] [place] [facility] Mar 14, 2018 11:23 AM VA-TOBACCO FORMER USER [facility] [place] [facility] Mar 14, 2018 11:23 AM VA-TOBACCO QUIT 15 YRS OR MORE [place] [facility] Apr 04, 2017 12:30 PM QUIT TOBACCO USE > 7 YEARS AGO [place] [facility] Apr 05, 2016 01:02 PM QUIT TOBACCO USE > 7 YEARS AGO quit in 1984 [facility] Encounter Notes: All associated encounter [...] 14 hours AirSense 11 AutoSet Serial number [id number] Mode AutoSet Min Pressure 5 cmH2O Max [...] RESPIRATORY THERAPIST Signed: 10/30/2023 12:43 CURTIS PUCKETT [facility]
--- OUTSIDE RECORDS SUMMARY | 2024-03-21 08:11 | XMS_ITS | Encounter Summary ---
Author Name Department [place] Organization [place] Address [address] [place] [address] Care Team Providers Care Web Application Dev Specialist Name Role Phone LEN MENDOZA Primary [...] PART B Sep 23, 2014 PART B [id number] [id number] HARMONY MCCALL JR PATIENT MEDICARE (WNR) MEDICARE (M) PART A July 25, 2007 PART A [id number] [id number] HARMONY MCCALL JR PATIENT MEDICARE (WNR) MEDICARE (M) PART B July 25, 2007 PART B [id number] [id number] HARMONY MCCALL JR PATIENT MEDICARE (WNR) MEDICARE (M) PART A July 25, 2007 PART A [id number] [id number] HARMONY MCCALL JR PATIENT [facility] MEDICAL EXPENSE (OPT/PROF ) [facility] * Jan 24, 2015 [id number] 18 CAROLE MCCALL SPOUSE Selected Encounter This section includes the information on record at [place] for the Encounter. Date/Time Encounter Type Encounter Description Reason Provider Source Oct 31, 2023 08:00 AM EXERCISE CLASS HEALTH/WELLBEING SRVS ICD-10-CM Z72.3 Lack of physical exercise DAMON ONEILL IHE Encounter Template Text not used by [place] Assessments - Encounter Diagnoses This section includes the primary and secondary diagnoses documented for the Encounter. Date/Time Primary/Secondary Diagnosis Diagnosis Name Provider Source Oct 31, 2023 10:57 AM PRIMARY Lack of physical exercise DAMON ONEILL [place] [facility] [place] [facility] Plan of Treatment: Future Appointments (+ [...] [facility] Dec 06, 2023 11:00 AM AMBULATORY - NONE [place] Dec 11, 2023 10:00 AM AMBULATORY - NONE [place] [facility] [place] [facility] Dec 11, 2023 01:00 PM AMBULATORY - MEDICINE [place] [facility] [place] [place] [facility] Dec 13, 2023 11:00 AM AMBULATORY - NONE [place] Dec 20, 2023 11:00 AM AMBULATORY - NONE [place] Dec 25, 2023 10:00 AM AMBULATORY - NONE [facility] [place] [facility] Dec 27, 2023 11:00 AM AMBULATORY - NONE [place] Jan 03, 2024 11:00 AM AMBULATORY - NONE [place] Jan 08, 2024 10:00 AM AMBULATORY - NONE [facility] [place] [facility] Jan 10, 2024 11:00 AM AMBULATORY - NONE [place] Jan 17, 2024 11:00 AM AMBULATORY - NONE [place] Jan 21, 2024 11:00 AM AMBULATORY - MEDICINE [place] [facility] [place] [facility] Jan 22, 2024 11:00 AM AMBULATORY - [place]IC[place] [facility] Jan 22, 2024 11:00 AM AMBULATORY - NONE [facility] [place] [facility] Social History: Smoking Status (Most current) and [...] VA-TOBACCO FORMER USER [facility] [place] [facility] Tobacco Use History This section includes a history of the smoking, or tobacco-related health factors, that were collected on or before the date of the Encounter. The data comes from the [place] facility where the Encounter took place. Date/Time Smoking Status/Tobacco Use Comment F acility Jan 26, 2023 01:30 PM VA-TOBACCO QUIT 15 YRS OR MORE [facility] [place] [facility] Jan 27, 2022 11:00 AM VA-TOBACCO FORMER USER [facility] [place] [facility] Jan 27, 2022 11:00 AM VA-TOBACCO QUIT 15 YRS OR MORE [facility] [place] [facility] Sep 17, 2020 09:00 AM VA-TOBACCO FORMER USER [facility] [place] [facility] Sep 17, 2020 09:00 AM VA-TOBACCO QUIT 15 YRS OR MORE [facility] [place] [facility] Jun 04, 2019 02:57 PM VA-TOBACCO NEVER USED [facility] [place] [facility] Mar 14, 2018 11:23 AM VA-TOBACCO FORMER USER [facility] [place] [facility] Mar 14, 2018 11:23 AM VA-TOBACCO QUIT 15 YRS OR MORE [facility] Apr 04, 2017 12:30 PM QUIT TOBACCO USE > 7 YEARS AGO [facility] Apr 05, 2016 01:02 PM QUIT TOBACCO USE > 7 YEARS AGO quit in 1984 [facility] Encounter Notes: All associated encounter notes [...] COMPLETED GEROFIT VVC/VCM/VOD Telehealth Supervised Exercise NOTE [place] Provided informed consent to receive treatment via Telehealth., mailed and has been made verbally aware of [facility] [place] practices. [place]'s Location: address on record unless specified below. Emergency Contact: on record unless specified below. participated remotely in the Gerofit exercise program today through [place] Virtual Fountain Worker. Activities were focused on progression of [...] whole health concerns. /johanny/ VIOLETTA FINK LICENSE SR. UNIX SYSTEM ADMINISTRATOR Signed: 10/31/2023 11:03 DOUG ONEILL [facility]
--- OUTSIDE RECORDS SUMMARY | 2024-03-21 08:11 | XMS_ITS | Encounter Summary ---
Author Name [place] Address [address] [place] [address] Care Team Providers Care Vascular Specialists Name Role Phone LEN MENDOZA Primary Care [...] PART B Sep 23, 2014 PART B [id number] [id number] HARMONY MCCALL JR PATIENT MEDICARE (WNR) MEDICARE (M) PART A July 25, 2007 PART A [id number] [id number] HARMONY MCCALL JR PATIENT MEDICARE (WNR) MEDICARE (M) PART B July 25, 2007 PART B [id number] [id number] HARMONY MCCALL JR PATIENT MEDICARE (WNR) MEDICARE (M) PART A July 25, 2007 PART A [id number] [id number] HARMONY MCCALL JR PATIENT [facility] MEDICAL EXPENSE (OPT/PROF ) [facility] * Jan 24, 2015 [id number] 18 CAROLE MCCALL SPOUSE Selected Encounter This section includes the information on record at [place] for the Encounter. Date/Time Encounter Type Encounter Description Reason Provider Source Nov 05, 2023 08:00 AM EXERCISE CLASS HEALTH/WELLBEING SRVS ICD-10-CM Z72.3 Lack of physical exercise JANIE LAZCANO Erin Encounter Template Text not used by VA Assessments - Encounter Diagnoses This section includes the primary and secondary diagnoses documented for the Encounter. Date/Time Primary/Secondary Diagnosis Diagnosis Name Provider Source Nov 05, 2023 11:26 AM PRIMARY Lack of physical exercise DAMON ONEILL [place] [facility] [facility] Plan [...] [place] [facility] [place] [facility] Jan 22, 2024 11:00 AM AMBULATORY - [place]ICINE [place] [facility] Jan 22, 2024 11:00 AM AMBULATORY - NONE [place] [facility] [place] [facility] Jan 24, 2024 11:00 AM AMBULATORY [...] AM VA-TOBACCO QUIT 15 YRS OR MORE [facility] Apr 04, 2017 12:30 PM QUIT TOBACCO USE > 7 YEARS AGO [facility] Apr 05, 2016 01:02 PM QUIT TOBACCO USE > 7 YEARS AGO quit in 1984 [facility] Encounter Notes: All associated encounter notes This section contains the clinical notes associated to the Encounter. Date/Time Encounter Note(s) Provider Source Nov 05, 2023 11:24 AM GERIATRIC MEDICINE NOTE: LOCAL TITLE: GEROFIT VCM/VVC/VOD TELEHEALTH SUPERVISED EXERCISE STANDARD TITLE: GERIATRIC MEDICINE NOTE DATE OF NOTE: NOV 05, 2023@11:24 ENTRY DATE: NOV 05, 2023@11:24:47 AUTHOR: DOUG ONEILL COSIGNER: URGENCY: STATUS: COMPLETED GEROFIT VVC/VCM/VOD Telehealth Supervised Exercise NOTE [place] Provided informed consent to receive treatment via Telehealth., mailed and has been made verbally aware of [facility] [place] practices. [place]'s Location: address on record unless specified below. Emergency Contact: on record unless specified below. participated remotely in the Gerofit exercise program today through [place] Virtual Coremaker Experimental. Activities were focused on progression of their [...] whole health concerns. /johanny/ VIOLETTA FINK LICENSE SEED YEAST OPERATOR Signed: 11/05/2023 11:31 DOUG ONEILL [facility]
--- OUTSIDE RECORDS SUMMARY | 2024-03-21 08:11 | XMS_ITS | Encounter Summary ---
Author Name Department of [place] ([place]) Organization [place] Address [address] [place] [address] Care Team Providers Care Pitching Coach Name Role Phone LEN MENDOZA Primary Care [...] PART B Sep 23, 2014 PART B [id number] [id number] HARMONY MCCALL JR PATIENT MEDICARE (WNR) MEDICARE (M) PART A July 25, 2007 PART A [id number] [phone] HARMONY MCCALL JR PATIENT MEDICARE (WNR) MEDICARE (M) PART B July 25, 2007 PART B [id number] [phone] HARMONY MCCALL JR PATIENT MEDICARE (WNR) MEDICARE (M) PART A July 25, 2007 PART A [id number] [id number] HARMONY MCCALL JR PATIENT [facility] MEDICAL EXPENSE (OPT/PROF ) [facility] * Jan 24, 2015 [id number] 18 CAROLE MCCALL SPOUSE Selected Encounter This section includes the information on record at [place] for the Encounter. Date/Time Encounter Type Encounter Description Reason Provider Source Oct 23, 2023 08:28 AM Outpatient Encounter PROSTHETICS/ORTHOTI CS LEN MENDOZA Erin Encounter Template Text not used by [place] Plan of Treatment: Future Appointments (+ 6 [...] NONE [facility] [place] [facility] Dec 06, 2023 11:00 AM AMBULATORY - NONE [place] Dec 11, 2023 10:00 AM AMBULATORY - NONE [facility] [place] [facility] Dec 11, 2023 01:00 PM AMBULATORY - MEDICINE [facility] [place] [facility] Dec 13, 2023 11:00 AM AMBULATORY - NONE [place] Dec 20, 2023 11:00 AM AMBULATORY - NONE [place] Dec 25, 2023 10:00 AM AMBULATORY - NONE [facility] [place] [facility] Dec 27, 2023 11:00 AM AMBULATORY - NONE [place] Jan 03, 2024 11:00 AM AMBULATORY - NONE [place] Jan 08, 2024 10:00 AM AMBULATORY - NONE [facility] [place] [facility] Jan 10, 2024 11:00 AM AMBULATORY - NONE [place] Jan 17, 2024 11:00 AM AMBULATORY - NONE [facility] Jan 21, 2024 11:00 AM AMBUL[place]ORY [place]ICINE [place] [facility] Jan 22, 2024 11:00 AM AMBULATORY - NONE [place] [facility] [place] [facility] Social History: Smoking Status (Most current) [...] 26, 2023 01:30 PM VA-TOBACCO FORMER USER [place] [facility] [facility] Tobacco Use History This section includes a history of the smoking, or tobacco-related health factors, that were collected on or before the date of the Encounter. The data comes from the [place] facility where the Encounter took place. Date/Time Smoking Status/Tobacco Use Comment F acility Jan 26, 2023 01:30 PM VA-TOBACCO QUIT 15 YRS OR MORE [facility] [place] [facility] Jan 27, 2022 11:00 AM VA-TOBACCO FORMER USER [facility] [place] [facility] Jan 27, 2022 11:00 AM VA-TOBACCO QUIT 15 YRS OR MORE [facility] [place] [facility] Sep 17, 2020 09:00 AM VA-TOBACCO FORMER USER [facility] [place] [facility] Sep 17, 2020 09:00 AM VA-TOBACCO QUIT 15 YRS OR MORE [facility] [place] [facility] Jun 04, 2019 02:57 PM VA-TOBACCO NEVER USED [facility] [place] [facility] Mar 14, 2018 11:23 AM VA-TOBACCO FORMER USER [facility] [place] [facility] Mar 14, 2018 11:23 AM VA-TOBACCO QUIT 15 YRS OR MORE [facility] [place] [facility] Apr 04, 2017 12:30 PM QUIT TOBACCO USE > 7 YEARS AGO [facility] [place] [facility] Apr 05, 2016 01:02 PM QUIT TOBACCO USE > 7 YEARS AGO quit in 1984 [facility] [place] [facility]
--- OUTSIDE RECORDS SUMMARY | 2024-03-21 08:11 | XMS_ITS | Encounter Summary ---
Author Name Department [place] Organization [place] Address [address] [place] [address] Care Team Providers Care Director Of Litigation Name Role Phone LEN MENDOZA Primary Care [...] PART B Sep 23, 2014 PART B [id number] HARMONY MCCALL JR PATIENT MEDICARE (WNR) MEDICARE (M) PART A July 25, 2007 PART A [id number] [id number] [phone] HARMONY MCCALL JR PATIENT MEDICARE (WNR) MEDICARE (M) PART B July 25, 2007 PART B [id number] [id number] HARMONY MCCALL JR PATIENT MEDICARE (WNR) MEDICARE (M) PART A July 25, 2007 PART A [id number] [id number] HARMONY MCCALL JR PATIENT [facility] MEDICAL EXPENSE (OPT/PROF ) [facility] * Jan 24, 2015 [id number] 18 CAROLE MCCALL SPOUSE Selected Encounter This section includes the information on record at [place] for the Encounter. Date/Time Encounter Type Encounter Description Reason Provider Source Nov 16, 2023 08:00 AM EXERCISE CLASS HEALTH/WELLBEING SRVS ICD-10-CM Z72.3 Lack of physical exercise DAMON ONEILL IHE Encounter Template Text not used by [place] Assessments - Encounter Diagnoses This section includes the primary and secondary diagnoses documented for the Encounter. Date/Time Primary/Secondary Diagnosis Diagnosis Name Provider Source Nov 16, 2023 10:46 AM PRIMARY Lack of physical exercise DAMON ONEILL [place] [facility] [place] [facility] Plan of Treatment: Future Appointments (+ 6 months) and Future Tests (+/- 45 days) The Plan of Treatment section includes future care activities for the patient from all [place] treatmentfacilities. This section includes future appointments and future orders which are active, pending or scheduled. Future Appointments This section includes appointments that were scheduled to occur 6 months from the date of the Encounter, up to a maximum of 20 appointments. The data comes from all [place] treatment facilities. Appointment Date/Time Appointment Type Appointme nt Facility Name Nov 22, 2023 11:00 AM AMBULATORY - NONE [place] Nov 29, 2023 11:00 AM AMBULATORY - NONE [place] Dec 03, 2023 02:00 PM AMBULATORY - NONE [facility] [place] [facility] Dec 06, 2023 11:00 AM AMBULATORY - NONE [place] Dec 11, 2023 10:00 AM AMBULATORY - NONE [facility] [place] [facility] Dec 11, 2023 01:00 PM AMBULATORY - MEDICINE [facility] [place] [facility] Dec 13, 2023 11:00 AM AMBULATORY - NONE [place] Dec 20, 2023 11:00 AM AMBULATORY - NONE [place] Dec 25, 2023 10:00 AM AMBULATORY - NONE [facility] [facility] Dec 27, 2023 11:00 AM AMBULATORY - NONE [place] Jan 03, 2024 11:00 AM AMBULATORY - NONE [place] Jan 08, 2024 10:00 AM AMBULATORY - NONE [facility] [place] [facility] Jan 10, 2024 11:00 AM AMBULATORY - NONE [place] Jan 17, 2024 11:00 AM AMBULATORY - NONE [place] Jan 21, 2024 11:00 AM AMBULATORY - MEDICINE [facility] [place] [facility] Jan 22, 2024 11:00 AM AMBULATORY - [place]ICINE [place] [facility] Jan 22, 2024 11:00 AM AMBULATORY - NONE [facility] [place] [facility] Jan 24, 2024 11:00 AM AMBULATORY - NONE [place] Jan 31, 2024 11:00 AM AMBULATORY - NONE [place] Feb 07, 2024 11:00 AM AMBULATORY - NONE [place] Social History: Smoking Status (Most current) and Tobacco Use (All prior to encounter date) This section includes the most current, and the historical, smoking and tobacco- related health factors from the [place] facility where the Encounter took place. Current Smoking Status This section includes the most current smoking, or tobacco-related health factor, from the [place] facility where the Encounter took place. Date/Time Current Smoking Status Comment Facil ity Jan 26, 2023 01:30 PM VA-TOBACCO FORMER USER [facility] [facility] Tobacco Use History This section includes a history of the smoking, or tobacco-related health factors, that were collected on or before the date of the Encounter. The data comes from the [place] facility where the Encounter took place. Date/Time Smoking Status/Tobacco Use Comment F acility Jan 26, 2023 01:30 PM VA-TOBACCO QUIT 15 YRS OR MORE [facility] [place] [facility] Jan 27, 2022 11:00 AM VA-TOBACCO FORMER USER [facility] [facility] Jan 27, 2022 11:00 AM VA-TOBACCO QUIT 15 YRS OR MORE [facility] [place] [facility] Sep 17, 2020 09:00 AM VA-TOBACCO FORMER USER [facility] [facility] Sep 17, 2020 09:00 AM VA-TOBACCO QUIT 15 YRS OR MORE [facility] [place] [facility] Jun 04, 2019 02:57 PM VA-TOBACCO NEVER USED [facility] [facility] Mar 14, 2018 11:23 AM VA-TOBACCO FORMER USER [facility] [facility] Mar 14, 2018 11:23 AM VA-TOBACCO QUIT 15 YRS OR MORE [facility] Apr 04, 2017 12:30 PM QUIT TOBACCO USE > 7 YEARS AGO [facility] Apr 05, 2016 01:02 PM QUIT TOBACCO USE > 7 YEARS AGO quit in 1984 [facility] Encounter Notes: All associated encounter notes [...] COMPLETED GEROFIT VVC/VCM/VOD Telehealth Supervised Exercise NOTE [place] Provided informed consent to receive treatment via Telehealth., mailed and has been made verbally aware of [facility] [place] practices. [place]'s Location: address on record unless specified below. Emergency Contact: on record unless specified below. participated remotely in the Gerofit exercise program today through [place] Virtual Data Sme. Activities were focused on progression of their [...] whole health concerns. /johanny/ VIOLETTA FINK LICENSE CATHODE RAY TUBE ASSEMBLER Signed: 11/16/2023 10:51 DOUG ONEILL [facility]
--- OUTSIDE RECORDS SUMMARY | 2024-03-21 08:11 | XMS_ITS | Encounter Summary ---
Author Name Department of [place] Organization [place] Address [address] [place] [address] Care Team Providers Care Molasses And Caramel Operator Name Role Phone LEN MENDOZA Primary [...] PART B Sep 23, 2014 PART B [id number] HARMONY MCCALL JR PATIENT MEDICARE (WNR) MEDICARE (M) PART A July 25, 2007 PART A [id number] [id number] HARMONY MCCALL JR PATIENT MEDICARE (WNR) MEDICARE (M) PART B July 25, 2007 PART B [id number] [id number] HARMONY MCCALL JR PATIENT MEDICARE (WNR) MEDICARE (M) PART A July 25, 2007 PART A [id number] [id number] HARMONY MCCALL JR PATIENT ON LICENSE OF [facility] MEDICAL EXPENSE (OPT/PROF ) [facility] [place] * Jan 24, 2015 [id number] 18 CAROLE MCCALL SPOUSE Selected Encounter This section includes the information on record at [place] for the Encounter. Date/Time Encounter Type Encounter Description Reason Provider Source Oct 25, 2023 11:00 AM HLTH BHV IVNTJ GRP EA ADDL WEIGHT MGMT & MOVE! PROG - GRP ICD-10-CM Z68.30 Body mass index [BMI] 30.0-30.9, adult GORDON PATHAK [facility] Encounter Template Text not used by [place] Assessments - Encounter Diagnoses This section includes the primary and secondary diagnoses documented for the Encounter. Date/Time Primary/Secondary Diagnosis Diagnosis Name Provider Source Oct 27, 2023 06:20 PM PRIMARY Body mass index [BMI] 30.0-30.9, adult GORDON PATHAK [place] Oct 27, 2023 06:20 PM SECONDARY Other [...] - NONE [facility] [place] [facility] Dec 06, 2023 11:00 AM AMBULATORY - NONE [place] Dec 11, 2023 10:00 AM AMBULATORY - NONE [facility] [place] [facility] Dec 11, 2023 01:00 PM AMBULATORY - MEDICINE [facility] [place] [facility] Dec 13, 2023 11:00 AM AMBULATORY - NONE [place] Dec 20, 2023 11:00 AM AMBULATORY - NONE [place] Dec 25, 2023 10:00 AM AMBULATORY - NONE [facility] [facility] Dec 27, 2023 11:00 AM AMBULATORY - NONE [place] Jan 03, 2024 11:00 AM AMBULATORY - NONE [place] Jan 08, 2024 10:00 AM AMBULATORY - NONE [facility] [place] [facility] Jan 10, 2024 11:00 AM AMBULATORY - NONE [place] Jan 17, 2024 11:00 AM AMBULATORY - NONE [place] Jan 21, 2024 11:00 AM AMBULATORY - MEDICINE [facility] [place] [facility] Jan 22, 2024 11:00 AM AMBULATORY - MEDICINE [place] [facility] Jan 22, 2024 11:00 AM AMBULATORY - NONE [facility] [place] [facility] Vital Signs: All taken on [...] COMPLETED participated in MOVE! Group Counseling via [facility] on October 25, 2023. The was provided with information on [facility] and has given verbal consent to use group VVC services for their healthcare. The copy of the Group Telehealth Agreement has been mailed to the [place]. The Veterans location/emergency contact number were confirmed. The Emergency Call Relay Center ([phone]) was available. The visit was locked for security and privacy. [place] identified with 2 identifiers: [ ] Full Name [ ] Address Veterans attended the [facility] MOVE! group session on this [...] for the next week. The next [facility] MOVE! group meeting will be [...]
--- OUTSIDE RECORDS SUMMARY | 2024-03-21 08:11 | XMS_ITS | Encounter Summary ---
Author Name Department [place] Organization [place] Address [address] [place] [address] Care Team Providers Care Internal Communications Writer Name Role Phone LEN MENDOZA Primary Care [...] PART B Sep 23, 2014 PART B [id number] [id number] HARMONY MCCALL JR PATIENT MEDICARE (WNR) MEDICARE (M) PART A July 25, 2007 PART A [id number] [id number] HARMONY MCCALL JR PATIENT MEDICARE (WNR) MEDICARE (M) PART B July 25, 2007 PART B [id number] [id number] HARMONY MCCALL JR PATIENT MEDICARE (WNR) MEDICARE (M) PART A July 25, 2007 PART A [id number] [id number] HARMONY MCCALL JR PATIENT [facility] MEDICAL EXPENSE (OPT/PROF ) [facility] * Jan 24, 2015 [id number] 18 CAROLE MCCALL SPOUSE Selected Encounter This [...] exercise DAMON ONEILL [place] [facility] [place] [facility] Plan of Treatment: Future Appointments (+ [...] [facility] Jan 10, 2024 11:00 AM AMBULATORY - NONE [place] Jan 17, 2024 11:00 AM AMBULATORY - NONE [place] Jan 21, 2024 11:00 AM AMBULATORY - MEDICINE [facility] [place] [facility] Jan 22, 2024 11:00 AM AMBULATORY - MEDICINE [place] [facility] Jan 22, 2024 11:00 AM AMBULATORY - NONE [facility] [place] [facility] Jan 24, 2024 11:00 AM AMBULATORY [...] AM VA-TOBACCO QUIT 15 YRS OR MORE [facility] Apr 04, 2017 12:30 PM QUIT TOBACCO USE > 7 YEARS AGO [facility] Apr 05, 2016 01:02 PM QUIT TOBACCO USE > 7 YEARS AGO quit in 1984 [facility] Encounter Notes: All associated encounter notes [...] COMPLETED GEROFIT VVC/VCM/VOD Telehealth Supervised Exercise NOTE [place] Provided informed consent to receive treatment via Telehealth., mailed and has been made verbally aware of Telehealth Group [place] practices. [place]'s Location: address on record unless specified below. Emergency Contact: on record unless specified below. participated remotely in the Gerofit exercise program today through [place] Virtual Environmental Compliance Specialist. Activities were focused on progression of [...] whole health concerns. /johanny/ VIOLETTA FINK LICENSE ANIMAL CRUELTY INVESTIGATION SUPERVISOR Signed: 11/14/2023 11:07 DOUG ONEILL [facility]
--- OUTSIDE RECORDS SUMMARY | 2024-03-21 08:11 | XMS_ITS | Encounter Summary ---
Author Name Department of Veter[place] Organization [place] Address [address] [place] [address] Care Team Providers Care Safety Instructor Name Role Phone LEN MENDOZA Primary [...] PART B Sep 23, 2014 PART B [id number] HARMONY MCCALL JR PATIENT MEDICARE (WNR) MEDICARE (M) PART A July 25, 2007 PART A [id number] [id number] HARMONY MCCALL JR PATIENT MEDICARE (WNR) MEDICARE (M) PART B July 25, 2007 PART B [id number] [phone] HARMONY MCCALL JR PATIENT MEDICARE (WNR) MEDICARE (M) PART A July 25, 2007 PART A [id number] [id number] HARMONY MCCALL JR PATIENT [facility] MEDICAL EXPENSE (OPT/PROF ) [facility] * Jan 24, 2015 [id number] 18 CAROLE MCCALL SPOUSE Selected Encounter This section includes the information on record at [place] for the Encounter. Date/Time Encounter Type Encounter Description Reason Provider Source Nov 15, 2023 11:00 AM HLTH BHV IVNTJ GRP EA ADDL WEIGHT MGMT & MOVE! PROG - GRP ICD-10-CM Z68.30 Body mass index [BMI] 30.0-30.9, adult GORDON PATHAK [facility] Encounter Template Text not used by [place] Assessments - Encounter Diagnoses This section includes the primary and secondary diagnoses documented for the Encounter. Date/Time Primary/Secondary Diagnosis Diagnosis Name Provider Source Nov 17, 2023 02:15 PM PRIMARY Body mass index [BMI] 30.0-30.9, adult GORDON PATHAK [place] Nov 17, 2023 02:15 PM SECONDARY Other [...] [place] [place] [facility] Jan 10, 2024 11:00 AM AMBULATORY - NONE [place] Jan 17, 2024 11:00 AM AMBULATORY - NONE [place] Jan 21, 2024 11:00 AM AMBULATORY - MEDICINE [facility] [place] [facility] Jan 22, 2024 11:00 AM AMBULATORY - NONE [facility] [place] [facility] Jan 22, 2024 11:00 AM AMBULATORY - [place]ICINE [place] [facility] Jan 24, 2024 11:00 AM AMBULATORY [...] AUTHOR: GORDON PATHAK COSIGNER: URGENCY: STATUS: COMPLETED [place] participated in MOVE! Group Counseling via [facility] on November 15, 2023. The was provided with information on [facility] and has given verbal consent to use group VVC services for their healthcare. The copy of the Group Telehealth Agreement has been mailed to the [place]. The Veterans location/emergency contact number were confirmed. The Emergency Call Relay Center ([phone]) was available. The visit was locked for security and privacy. [place] identified with 2 identifiers: [ ] Full Name [ ] Address Veterans attended the [facility] MOVE! group session on this date. [...] goals for the next week. The next [facility] MOVE! group meeting will be held [...]
--- OUTSIDE RECORDS SUMMARY | 2024-03-21 08:11 | XMS_ITS | Encounter Summary ---
Author Name Department of [place] Organization [place] Address [address] [place] [address] Care Team Providers Care Dry Wall Nailer Name Role Phone LEN MENDOZA Primary Care [...] PART B Sep 23, 2014 PART B [id number] HARMONY MCCALL JR PATIENT MEDICARE (WNR) MEDICARE (M) PART A July 25, 2007 PART A [id number] HRAMONY MCCALL JR PATIENT MEDICARE (WNR) MEDICARE (M) PART B July 25, 2007 PART B [id number] [id number] HARMONY MCCALL JR PATIENT MEDICARE (WNR) MEDICARE (M) PART A July 25, 2007 PART A [id number] [id number] HARMONY MCCALL JR PATIENT [facility] MEDICAL EXPENSE (OPT/PROF ) [facility] * Jan 24, 2015 [id number] 18 CAROLE MCCALL SPOUSE Selected Encounter This [...] PRIMARY Lack of physical exercise DAMON ONEILL [place] [place] [facility] Plan of Treatment: Future Appointments [...] AMBULATORY - NONE [facility] [place] [facility] Dec 06, 2023 11:00 AM AMBULATORY - NONE [place] Dec 11, 2023 10:00 AM AMBULATORY - NONE [facility] [place] [facility] Dec 11, 2023 01:00 PM AMBULATORY - MEDICINE [facility] [place] [facility] Dec 13, 2023 11:00 AM AMBULATORY - NONE [place] Dec 20, 2023 11:00 AM AMBULATORY - NONE [place] Dec 25, 2023 10:00 AM AMBULATORY - NONE [facility] [place] [facility] Dec 27, 2023 11:00 AM AMBULATORY - NONE [place] Jan 03, 2024 11:00 AM AMBULATORY - NONE [place] Jan 08, 2024 10:00 AM AMBULATORY - NONE [facility] [place] [facility] Jan 10, 2024 11:00 AM AMBULATORY - NONE [place] Jan 17, 2024 11:00 AM AMBULATORY - NONE [place] Jan 21, 2024 11:00 AM AMBULATORY - MEDICINE [facility] [place] [facility] Jan 22, 2024 11:00 AM AMBULATORY - [place]ICINE [place] [facility] Jan 22, 2024 11:00 AM AMBULATORY - NONE [facility] [place] [facility] Social History: Smoking Status (Most [...] VA-TOBACCO FORMER USER [facility] [place] [facility] Tobacco Use History This section includes a history of the smoking, or tobacco-related health factors, that were collected on or before the date of the Encounter. The data comes from the [place] facility where the Encounter took place. Date/Time Smoking Status/Tobacco Use Comment F acility Jan 26, 2023 01:30 PM VA-TOBACCO QUIT 15 YRS OR MORE [facility] [place] [facility] Jan 27, 2022 11:00 AM VA-TOBACCO FORMER USER [facility] [place] [facility] Jan 27, 2022 11:00 AM VA-TOBACCO QUIT 15 YRS OR MORE [facility] [place] [facility] Sep 17, 2020 09:00 AM VA-TOBACCO FORMER USER [facility] [place] [facility] Sep 17, 2020 09:00 AM VA-TOBACCO QUIT 15 YRS OR MORE [facility] [place] [facility] Jun 04, 2019 02:57 PM VA-TOBACCO NEVER USED [facility] [place] [facility] Mar 14, 2018 11:23 AM VA-TOBACCO FORMER USER [facility] [place] [facility] Mar 14, 2018 11:23 AM VA-TOBACCO QUIT 15 YRS OR MORE [facility] Apr 04, 2017 12:30 PM QUIT TOBACCO USE > 7 YEARS AGO [facility] Apr 05, 2016 01:02 PM QUIT TOBACCO USE > 7 YEARS AGO quit in 1984 [facility] Encounter Notes: All associated encounter [...] COMPLETED GEROFIT VVC/VCM/VOD Telehealth Supervised Exercise NOTE [place] Provided informed consent to receive treatment via Telehealth., mailed and has been made verbally aware of Telehealth Group [place] practices. [place]'s Location: address on record unless specified below. Emergency Contact: on record unless specified below. participated remotely in the Gerofit exercise program today through [place] Virtual Hog Counter. Activities were focused on progression of their [...] whole health concerns. /johanny/ VIOLETTA FINK LICENSE PRODUCTION SPECIALIST Signed: 10/29/2023 10:42 DOUG ONEILL [facility]
--- OUTSIDE RECORDS SUMMARY | 2024-03-21 08:11 | XMS_ITS | Encounter Summary ---
Author Name Department of [place] Organization [place] Address [address] [place] [address] Care Team Providers Care Spring Floor Service Worker Name Role Phone LEN MENDOZA Primary [...] PART B Sep 23, 2014 PART B [id number] HARMONY MCCALL JR PATIENT MEDICARE (WNR) MEDICARE (M) PART A July 25, 2007 PART A [id number] [id number] HARMONY MCCALL JR PATIENT MEDICARE (WNR) MEDICARE (M) PART B July 25, 2007 PART B [id number] [id number] HARMONY MCCALL JR PATIENT MEDICARE (WNR) MEDICARE (M) PART A July 25, 2007 PART A [id number] [phone] [id number] HARMONY MCCALL JR PATIENT [facility] MEDICAL EXPENSE (OPT/PROF ) [facility] [place] * Jan 24, 2015 [id number] 18 CAROLE MCCALL SPOUSE Selected Encounter This section includes the information on record at [place] for the Encounter. Date/Time Encounter Type Encounter [...] PRIMARY Lack of physical exercise JANIE LAZCANO [place] [facility] Plan of Treatment: Future Appointments (+ 6 months) and Future Tests (+/- 45 days) The Plan of Treatment section includes future care activities for the patient from all [place] treatmentfacilities. This section includes future appointments and future orders which are active, pending or scheduled. Future Appointments This section includes appointments that were scheduled to occur 6 months from the date of the Encounter, up to a maximum of 20 appointments. The data comes from all [place] treatment facilities. Appointment Date/Time Appointment Type Appointme nt Facility Name Nov 08, 2023 11:00 AM AMBULATORY - NONE [place] Nov 15, 2023 11:00 AM AMBULATORY - NONE [place] Nov 22, 2023 11:00 AM AMBULATORY - NONE [place] Nov 29, 2023 11:00 AM AMBULATORY - NONE [place] Dec 03, 2023 02:00 PM AMBULATORY - NONE [facility] [place] [facility] Dec 06, 2023 11:00 AM AMBULATORY - NONE [place] Dec 11, 2023 10:00 AM AMBULATORY - NONE [facility] [place] [facility] Dec 11, 2023 01:00 PM AMBULATORY - MEDICINE [facility] [place] [facility] Dec 13, 2023 11:00 AM AMBULATORY - NONE [place] Dec 20, 2023 11:00 AM AMBULATORY - NONE [place] Dec 25, 2023 10:00 AM AMBULATORY - NONE [facility] [place] [facility] Dec 27, 2023 11:00 AM AMBULATORY - NONE [place] Jan 03, 2024 11:00 AM AMBULATORY - NONE [place] Jan 08, 2024 10:00 AM AMBULATORY - NONE [facility] [place] [facility] Jan 10, 2024 11:00 AM AMBULATORY - NONE [place] Jan 17, 2024 11:00 AM AMBULATORY - NONE [place] Jan 21, 2024 11:00 AM AMBULATORY - MEDICINE [facility] [place] [facility] Jan 22, 2024 11:00 AM AMBULATORY - [place]ICINE [place] [facility] Jan 22, 2024 11:00 AM AMBULATORY - NONE [facility] [place] [facility] Jan 24, 2024 11:00 AM AMBULATORY - NONE [place] Social History: Smoking Status (Most current) and Tobacco Use (All prior to encounter date) This section includes the most current, and the historical, smoking and tobacco- related health factors from the [place] facility where the Encounter took place. Current Smoking Status This section includes the most current smoking, or tobacco-related health factor, from the [place] facility where the Encounter took place. Date/Time Current Smoking Status Comment Facil ity Jan 26, 2023 01:30 PM VA-TOBACCO QUIT 15 YRS OR MORE [place] [facility] [place] [facility] Tobacco Use History This section includes a history of the smoking, or tobacco-related health factors, that were collected on or before the date of the Encounter. The data comes from the [place] facility where the Encounter took place. Date/Time Smoking Status/Tobacco Use Comment F acility Jan 26, 2023 01:30 PM VA-TOBACCO QUIT 15 YRS OR MORE [facility] [place] [facility] Jan 27, 2022 11:00 AM VA-TOBACCO FORMER USER [facility] [place] [facility] Jan 27, 2022 11:00 AM VA-TOBACCO QUIT 15 YRS OR MORE [facility] [place] [facility] Sep 17, 2020 09:00 AM VA-TOBACCO FORMER USER [facility] [place] [facility] Sep 17, 2020 09:00 AM VA-TOBACCO QUIT 15 YRS OR MORE [facility] [place] [facility] Jun 04, 2019 02:57 PM VA-TOBACCO NEVER USED [facility] [place] [facility] Mar 14, 2018 11:23 AM VA-TOBACCO FORMER USER [facility] [place] [facility] Mar 14, 2018 11:23 AM VA-TOBACCO QUIT 15 YRS OR MORE [facility] Apr 04, 2017 12:30 PM QUIT TOBACCO USE > 7 YEARS AGO [facility] Apr 05, 2016 01:02 PM QUIT TOBACCO USE > 7 YEARS AGO quit in 1984 [facility] Encounter Notes: All associated encounter notes [...] informed consent to receive treatment via Telehealth., [place] mailed and has been made verbally aware of Telehealth Group [place] practices. [place]'s Location: address on record unless specified below. Emergency Contact: on record unless specified below. participated remotely in the [facility] exercise program today through [place] Virtual Supervisor Abattoir. Activities were focused on progression of their individual exercise prescription (cardiorespiratory fitness training, strength training, etc.) and group-based exercise sessions to include, but not limited to: flexibility training, balance training & functional circuit training. [facility] participation [facility] and any questions/concerns were addressed with the patient. Modifications were made to programming as appropriate to suit Veterans individual needs, preferences, and whole health concerns. /es/ Janie Lazcano PT,DPT PHYSICAL THERAPIST Signed: 11/02/2023 10:44 JANIE LAZCANO [facility]
--- OUTSIDE RECORDS SUMMARY | 2024-03-21 08:11 | XMS_ITS | Encounter Summary ---
Author Name Department [place] Organization [place] Address [address] [place] [address] Care Team Providers Care Hull Outfit Supervisor Name Role Phone LEN MENDOZA Primary [...] PART B Sep 23, 2014 PART B [id number] [id number] HARMONY MCCALL JR PATIENT MEDICARE (WNR) MEDICARE (M) PART A July 25, 2007 PART A [id number] [id number] HARMONY MCCALL JR PATIENT MEDICARE (WNR) MEDICARE (M) PART B July 25, 2007 PART B [id number] [id number] HARMONY MCCALL JR PATIENT MEDICARE (WNR) MEDICARE (M) PART A July 25, 2007 PART A [id number] [id number] HARMONY MCCALL JR PATIENT [facility] MEDICAL EXPENSE (OPT/PROF ) [facility] * Jan 24, 2015 [id number] [phone] CAROLE MCCALL SPOUSE Selected Encounter This section includes the information on record at [place] for the Encounter. Date/Time Encounter Type Encounter Description Reason Provider Source Nov 08, 2023 11:00 AM GROUP BEHAVE COUNS 2-10 WEIGHT MGMT & MOVE! PROG - GRP ICD-10-CM E66.09 Other obesity due to excess calories MIGUEL KRAMER Erin Encounter Template Text not used by [place] Assessments - Encounter Diagnoses This section includes the primary and secondary diagnoses documented for the Encounter. Date/Time Primary/Secondary Diagnosis Diagnosis Name Provider Source Nov 09, 2023 10:28 AM PRIMARY Other obesity due to excess calories SANTIAGO KRAMER Nov 09, 2023 10:28 AM SECONDARY Body mass index [BMI] 30.0-30.9, [...] AMBULATORY - NONE [facility] [place] [facility] Dec 06, 2023 11:00 AM AMBULATORY - NONE [place] Dec 11, 2023 10:00 AM AMBULATORY - NONE [facility] [place] [facility] Dec 11, 2023 01:00 PM AMBULATORY - MEDICINE [facility] [place] [facility] Dec 13, 2023 11:00 AM AMBULATORY - NONE [place] Dec 20, 2023 11:00 AM AMBULATORY - NONE [place] Dec 25, 2023 10:00 AM AMBULATORY - NONE [facility] [place] [facility] Dec 27, 2023 11:00 AM AMBULATORY - NONE [place] Jan 03, 2024 11:00 AM AMBULATORY - NONE [place] Jan 08, 2024 10:00 AM AMBULATORY - NONE [facility] [place] [facility] Jan 10, 2024 11:00 AM AMBULATORY - NONE [place] Jan 17, 2024 11:00 AM AMBULATORY - NONE [place] Jan 21, 2024 11:00 AM AMBULATORY - MEDICINE [facility] [place] [facility] Jan 22, 2024 11:00 AM AMBULATORY - [place]ICINE [place] [facility] Jan 22, 2024 11:00 AM AMBULATORY - NONE [facility] [place] [facility] Jan 24, 2024 11:00 AM AMBULATORY - NONE [place] Jan 31, 2024 11:00 AM AMBULATORY - NONE [place] Vital Signs: All taken on the encounter date This section contains inpatient and outpatient Vital Signs collected on the date of the Encounter. Date/Time Temperature Pulse Blood Pressure Respiratory Rate SP02 Pain Height Weight Body Mass Index Source Nov 08, 2023 11:30 AM 208.8 32 [place] Encounter Notes: All associated encounter notes This section contains the clinical notes associated to the Encounter. Date/Time Encounter Note(s) Provider Source Nov 08, 2023 11:00 AM MOVE NOTE: LOCAL TITLE: WEIGHT MANAGEMENT/MOVE! OUTPATIENT GROUP NOTE STANDARD TITLE: MOVE NOTE DATE OF NOTE: NOV 08, 2023@11:00 ENTRY DATE: NOV 09, 2023@10:07:34 AUTHOR: SANTIAGO KRAMER COSIGNER: URGENCY: STATUS: COMPLETED participated in MOVE! Group Counseling via VV on November 08, 2023. The was provided with information on [facility] and has given verbal consent to use group VVC services for their healthcare. The copy of the Group Telehealth Agreement has been mailed to the [place]. The Veterans location/emergency contact number were confirmed. The Emergency Call Relay Center ([phone]) was available. The visit was locked for security and privacy. [place] identified with 2 identifiers: [ ] Full Name [ ] Address Veterans attended the [facility] MOVE! group session on this date. MOVE! is a program designed to provide education about weight management skills to overweight and obese Veterans. Group members combined to gain 0.6 pounds since their last attended group. Group members began today's discussion by asking about protein and if peoples protein requirement increases as we age. Facilitators discussed protein recommendations per day. A group member asked about GeroFit and wanted to learn more info about it. Other group members who participate in it answered questions. Facilitators also provided info on the group. Group members started to share stories from their service in [place] for the rest of the time. The next [facility] MOVE! group meeting will be held on October @ 11:00am. 's reported weight was 208.8 lbs. and lost 0.9 pounds since last group attended. Dx: Obesity d/t Excess Calories Obesity E66.09 BMI 30.0-30.9 The session lasted for 1 hour in duration. /johanny/ SANTIAGO KRAMER STAFF DIETITIAN Signed: 11/09/2023 10:29 Receipt Acknowledged By: 11/09/2023 13:01 /johanny/ GORDON PATHAK, Ph.D. CLINICAL PSYCHOLOGIST SANTIAGO KRAMERFIELD
--- OUTSIDE RECORDS SUMMARY | 2024-03-21 08:12 | XMS_ITS | Encounter Summary ---
Author Name [facility] [place] Organization [place] Address [address] [place] [id number] Care Team Providers Care Clerical Adjudicator Name Role Phone LEN MENDOZA Primary Care [...] PART B Sep 23, 2014 PART B [id number] HARMONY MCCALL JR PATIENT MEDICARE (WNR) MEDICARE (M) PART A July 25, 2007 PART A [id number] HARMONY MCCALL JR PATIENT MEDICARE (WNR) MEDICARE (M) PART B July 25, 2007 PART B [id number] HARMONY MCCALL JR PATIENT MEDICARE (WNR) MEDICARE (M) PART A July 25, 2007 PART A [id number] HARMONY MCCALL JR PATIENT [facility] MEDICAL EXPENSE (OPT/PROF ) [facility] IN[facility] * Jan 24, 2015 [id number] CAROLE MCCALL SPOUSE Selected Encounter This [...] exercise DAMON ONEILL [place] [facility] [facility] Plan of Treatment: Future Appointments (+ [...] [facility] [place] [facility] Dec 27, 2023 11:00 AM AMBULATORY - NONE [place] Jan 03, 2024 11:00 AM AMBULATORY - NONE [place] Jan 08, 2024 10:00 AM AMBULATORY - NONE [place] [facility] [place] [facility] Jan 10, 2024 11:00 AM AMBULATORY - NONE [place] Jan 17, 2024 11:00 AM AMBULATORY - NONE [place] Jan 21, 2024 11:00 AM AMBULATORY - MEDICINE [place] [facility] Jan 22, 2024 11:00 AM AMBULATORY - MEDICINE [place] [facility] Jan 22, 2024 11:00 AM AMBULATORY - NONE [place] [facility] [facility] Jan 24, 2024 11:00 AM AMBULATORY - NONE [place] Jan 31, 2024 11:00 AM AMBULATORY - NONE [place] Feb 07, 2024 11:00 AM AMBULATORY - NONE [place] Feb 14, 2024 11:00 AM AMBULATORY - NONE [place] Active, Pending, and Scheduled Orders This section includes a listing of several types of active, pending, and scheduled orders, including clinic medications orders, diagnostic test orders, procedure orders and consult orders; where the start date of the order is 45 days before the date of the Encounter or 45 days after the date of theEncounter. The data comes from all [place] treatment facilities. Test Date/Time Test Type Test Details Facility Name Jan 10, 2024 12:00 AM Laboratory - Chemi stry Order CBC BLOOD (LAV-BLOOD) [facility] Jan 10, 2024 12:00 AM Laboratory - Chemi stry Order LIPID PANEL, NON FASTING BLOOD (SST-SERUM) [facility] Jan 10, 2024 12:00 AM Laboratory - Chemi stry Order TSH BLOOD (SST-SERUM) [facility] Jan 10, 2024 12:00 AM Laboratory - Chemi stry Order LIVER FUNCTION BLOOD (SST-SERUM) [facility] Jan 10, 2024 12:00 AM Laboratory - Chemi stry Order BASIC METABOLIC PANEL (non-fasting) BLOOD (SST-SERUM) [facility] Jan 10, 2024 12:00 AM Laboratory - Chemi stry Order FERRITIN BLOOD (SST-SERUM) [facility] Jan 10, 2024 12:00 AM Laboratory - Chemi stry Order VITAMIN B12 BLOOD (SST-SERUM) [facility] Jan 10, 2024 12:00 AM Laboratory - Chemi stry Order IRON & TIBC PANEL BLOOD (SST-SERUM) SP [place] [facility] [place] [facility] Social History: Smoking Status (Most current) [...] PM VA-TOBACCO QUIT 15 YRS OR MORE [place] [facility] Tobacco Use History This section includes a history of the smoking, or tobacco-related health factors, that were collected on or before the date of the Encounter. The data comes from the [place] facility where the Encounter took place. Date/Time Smoking Status/Tobacco Use Comment F acility Jan 26, 2023 01:30 PM VA-TOBACCO QUIT 15 YRS OR MORE [place] [facility] [place] [facility] Jan 27, 2022 11:00 AM VA-TOBACCO FORMER USER [place] [facility] [place] [facility] Jan 27, 2022 11:00 AM VA-TOBACCO QUIT 15 YRS OR MORE [place] [facility] [place] [facility] Sep 17, 2020 09:00 AM VA-TOBACCO FORMER USER [place] [facility] [place] [facility] Sep 17, 2020 09:00 AM VA-TOBACCO QUIT 15 YRS OR MORE [place] [facility] [place] [facility] Jun 04, 2019 02:57 PM VA-TOBACCO NEVER USED [place] [facility] [place] [facility] Mar 14, 2018 11:23 AM VA-TOBACCO FORMER USER [place] [facility] [place] [facility] Mar 14, 2018 11:23 AM VA-TOBACCO QUIT 15 YRS OR MORE [place] [facility] [place] [facility] Apr 04, 2017 12:30 PM QUIT TOBACCO USE > 7 YEARS AGO [place] [facility] [facility] Apr 05, 2016 01:02 PM QUIT TOBACCO USE > 7 YEARS AGO quit in 1984 [place] [facility] [place] [facility] Encounter Notes: All associated encounter notes [...] COMPLETED GEROFIT VVC/VCM/VOD Telehealth Supervised Exercise NOTE [place] Provided informed consent to receive treatment via Telehealth., mailed and has been made verbally aware of [facility] [place] practices. [place]'s Location: address on record unless specified below. Emergency Contact: on record unless specified below. participated remotely in the Gerofit exercise program today through [place] Virtual Flexboard Operator. Activities were focused on progression of [...] whole health concerns. /johanny/ VIOLETTA FINK LICENSE WAIST CUTTER Signed: 11/28/2023 11:40 DOUG ONEILL [place] [facility]
--- OUTSIDE RECORDS SUMMARY | 2024-03-21 08:12 | XMS_ITS | Encounter Summary ---
Author Name Department of [place] Organization Department [place] Address [address] [place] [address] Care Team Providers Care Veterinary Attendant Name Role Phone LEN MENDOZA Primary Care [...] PART B Sep 23, 2014 PART B [id number] HARMONY MCCALL JR PATIENT MEDICARE (WNR) MEDICARE (M) PART A July 25, 2007 PART A [id number] [phone] HARMONY MCCALL JR PATIENT MEDICARE (WNR) MEDICARE (M) PART B July 25, 2007 PART B [id number] HARMONY MCCALL JR PATIENT MEDICARE (WNR) MEDICARE (M) PART A July 25, 2007 PART A [id number] HARMONY MCCALL JR PATIENT [facility] MEDICAL EXPENSE (OPT/PROF ) [facility] [place] * Jan 24, 2015 [id number] CAROLE MCCALL SPOUSE Selected Encounter This section includes the information on record at [place] for the Encounter. Date/Time Encounter Type Encounter Description Reason Pro vider Source IHE Encounter Template Text not used by VA
--- OUTSIDE RECORDS SUMMARY | 2024-03-21 08:12 | XMS_ITS | Encounter Summary ---
Author Name [place] Organization [place] Address [address] [place] [address] Care Team Providers Care Fast Food Crew Lead Name Role Phone LEN MENDOZA Primary Care [...] PART B Sep 23, 2014 PART B [id number] HARMONY MCCALL JR PATIENT MEDICARE (WNR) MEDICARE (M) PART A July 25, 2007 PART A [id number] HARMONY MCCALL JR PATIENT MEDICARE (WNR) MEDICARE (M) PART B July 25, 2007 PART B [id number] [phone] HARMONY MCCALL JR PATIENT MEDICARE (WNR) MEDICARE (M) PART A July 25, 2007 PART A [id number] HARMONY MCCALL JR PATIENT [facility] MEDICAL EXPENSE (OPT/PROF ) [facility] IN[place] * Jan 24, 2015 [id number] CAROLE MCCALL SPOUSE Selected Encounter This [...] exercise DAMON ONEILL [place] [facility] Plan of Treatment: Future Appointments [...] AMBULATORY - NONE [place] [facility] [place] [facility] Dec 06, 2023 11:00 AM AMBULATORY - NONE [place] Dec 11, 2023 10:00 AM AMBULATORY - NONE [place] [facility] [place] [facility] Dec 11, 2023 01:00 PM AMBULATORY - MEDICINE [place] [facility] Dec 13, 2023 11:00 AM AMBULATORY - NONE [place] Dec 20, 2023 11:00 AM AMBULATORY - NONE [place] Dec 25, 2023 10:00 AM AMBULATORY - NONE [place] [facility] [place] [facility] Dec 27, 2023 11:00 AM AMBULATORY - NONE [place] Jan 03, 2024 11:00 AM AMBULATORY - NONE [place] Jan 08, 2024 10:00 AM AMBULATORY - NONE [place] [facility] [place] [facility] Jan 10, 2024 11:00 AM AMBULATORY - NONE [place] Jan 17, 2024 11:00 AM AMBULATORY - NONE [place] Jan 21, 2024 11:00 AM AMBULATORY - MEDICINE [place] [facility] Jan 22, 2024 11:00 AM AMBULATORY - MEDICINE [place] [facility] Jan 22, 2024 11:00 AM AMBULATORY - NONE [place] [place] [facility] Jan 24, 2024 11:00 AM [...] VA-TOBACCO FORMER USER [place] [facility] [place] [facility] Tobacco Use History This section includes a history of the smoking, or tobacco-related health factors, that were collected on or before the date of the Encounter. The data comes from the [place] facility where the Encounter took place. Date/Time Smoking Status/Tobacco Use Comment F acility Jan 26, 2023 01:30 PM VA-TOBACCO QUIT 15 YRS OR MORE [place] [facility] [place] [facility] Jan 27, 2022 11:00 AM VA-TOBACCO FORMER USER [place] [facility] [place] [facility] Jan 27, 2022 11:00 AM VA-TOBACCO QUIT 15 YRS OR MORE [place] [facility] [place] [facility] Sep 17, 2020 09:00 AM VA-TOBACCO FORMER USER [place] [facility] [place] [facility] Sep 17, 2020 09:00 AM VA-TOBACCO QUIT 15 YRS OR MORE [place] [facility] [place] [facility] Jun 04, 2019 02:57 PM VA-TOBACCO NEVER USED [place] [facility] [place] [facility] Mar 14, 2018 11:23 AM VA-TOBACCO FORMER USER [place] [facility] [place] [facility] Mar 14, 2018 11:23 AM VA-TOBACCO QUIT 15 YRS OR MORE [facility] Apr 04, 2017 12:30 PM QUIT TOBACCO USE > 7 YEARS AGO [facility] Apr 05, 2016 01:02 PM QUIT TOBACCO USE > 7 YEARS AGO quit in 1984 [facility] Encounter Notes: All associated encounter notes [...] COMPLETED GEROFIT VVC/VCM/VOD Telehealth Supervised Exercise NOTE [place] Provided informed consent to receive treatment via Telehealth., mailed and has been made verbally aware of [facility] [place] practices. [place]'s Location: address on record unless specified below. Emergency Contact: on record unless specified below. participated remotely in the Gerofit exercise program today through [place] Virtual Jig Maker. Activities were focused on progression of [...] whole health concerns. /johanny/ VIOLETTA FINK LICENSE LONGWALL SHEARER OPERATOR Signed: 11/19/2023 11:33 DOUG ONEILL [facility]
--- OUTSIDE RECORDS SUMMARY | 2024-03-21 08:12 | XMS_ITS | Encounter Summary ---
Author Name Department of [place] Organization [place] Address [address] [place] [address] Care Team Providers Care Tawer Name Role Phone LEN MENDOZA Primary Care [...] PART B Sep 23, 2014 PART B [id number] HARMONY MCCALL JR PATIENT MEDICARE (WNR) MEDICARE (M) PART A July 25, 2007 PART A [id number] [id number] HARMONY MCCALL JR PATIENT MEDICARE (WNR) MEDICARE (M) PART B July 25, 2007 PART B [id number] [id number] HARMONY MCCALL JR PATIENT MEDICARE (WNR) MEDICARE (M) PART A July 25, 2007 PART A [id number] [id number] HARMONY MCCALL JR PATIENT [facility] MEDICAL EXPENSE (OPT/PROF ) [facility] [place] * Jan 24, 2015 [id number] [phone] CAROLE MCCALL SPOUSE Selected Encounter This section includes the information on record at [place] for the Encounter. Date/Time Encounter Type Encounter Description Reason Provider Source Nov 22, 2023 11:00 AM GROUP BEHAVE COUNS 2-10 WEIGHT MGMT & MOVE! PROG - GRP ICD-10-CM E66.09 Other obesity due to excess calories MIGUEL KRAMER Erin Encounter Template Text not used by [place] [...] AMBULATORY - NONE [place] [place] [facility] Dec 06, 2023 11:00 AM AMBULATORY - NONE [place] Dec 11, 2023 10:00 AM AMBULATORY - NONE [place] [facility] [place] [facility] Dec 11, 2023 01:00 PM AMBULATORY - MEDICINE [place] [facility] Dec 13, 2023 11:00 AM AMBULATORY - NONE [place] Dec 20, 2023 11:00 AM AMBULATORY - NONE [place] Dec 25, 2023 10:00 AM AMBULATORY - NONE [place] [facility] [place] [facility] Dec 27, 2023 11:00 AM AMBULATORY - NONE [place] Jan 03, 2024 11:00 AM AMBULATORY - NONE [place] Jan 08, 2024 10:00 AM AMBULATORY - NONE [place] [facility] [place] [facility] Jan 10, 2024 11:00 AM AMBULATORY - NONE [place] Jan 17, 2024 11:00 AM AMBULATORY - NONE [place] Jan 21, 2024 11:00 AM AMBULATORY - MEDICINE [place] [place] [facility] Jan 22, 2024 11:00 AM AMBULATORY - [place]ICINE [place] [facility] Jan 22, 2024 11:00 AM AMBULATORY - NONE [place] [facility] [place] [facility] Jan 24, 2024 11:00 AM AMBULATORY [...] COMPLETED participated in MOVE! Group Counseling via [facility] on November 22, 2023. The [place] was provided with information on [facility] and has given verbal consent to use group [facility] services for their healthcare. The copy of the Group Telehealth Agreement has been mailed to the [place]. The Veterans location/emergency contact number were confirmed. The Emergency Call Relay Center ([phone]) was available. The visit was locked for security and privacy. identified with 2 identifiers: [ ] Full Name [ ] Address Veterans attended the [facility] MOVE! group session on this date. MOVE! [...] can help with weight loss. The next [facility] MOVE! group meeting will be held on [...]
--- OUTSIDE RECORDS SUMMARY | 2024-03-21 08:12 | XMS_ITS | Encounter Summary ---
Author Name [place] Address [address] [place] [address] Care Team Providers Care Senior Application Security Consultant Name Role Phone LEN MENDOZA Primary [...] PART B Sep 23, 2014 PART B [id number] HARMONY MCCALL JR PATIENT MEDICARE (WNR) MEDICARE (M) PART A July 25, 2007 PART A [id number] [id number] HARMONY MCCALL JR PATIENT MEDICARE (WNR) MEDICARE (M) PART B July 25, 2007 PART B [id number] [id number] HARMONY MCCALL JR PATIENT MEDICARE (WNR) MEDICARE (M) PART A July 25, 2007 PART A [id number] [id number] HARMONY MCCALL JR PATIENT [facility] MEDICAL EXPENSE (OPT/PROF ) [facility] IN[facility] * Jan 24, 2015 [id number] CAROLE MCCALL SPOUSE Selected Encounter This [...] Lack of physical exercise DAMON ONEILL [place] [facility] [place] [facility] Jan 24, 2024 11:00 AM AMBULATORY - [...] AM VA-TOBACCO QUIT 15 YRS OR [facility] Apr 04, 2017 12:30 PM QUIT TOBACCO USE > 7 YEARS AGO [facility] Apr 05, 2016 01:02 PM QUIT [...] COMPLETED GEROFIT VVC/VCM/VOD Telehealth Supervised Exercise NOTE [place] Provided informed consent to receive treatment via Telehealth., mailed and has been made verbally aware of [facility] [place] practices. [place]'s Location: address on record unless specified below. Emergency Contact: on record unless specified below. participated remotely in the Gerofit exercise program today through [place] Virtual Laser Beam Machine Operator. Activities were focused on progression [...] health concerns. /johanny/ VIOLETTA FINK LICENSE WOOD CRAFTSMAN Signed: 11/21/2023 11:04 DOUG ONEILL [facility]
--- OUTSIDE RECORDS SUMMARY | 2024-03-21 08:12 | XMS_ITS | Encounter Summary ---
Author Name Department of [place] Organization [place] Address [address] [place] [address] Care Team Providers Care Oil Analyst Name Role Phone LEN MENDOZA Primary [...] PART B Sep 23, 2014 PART B [id number] HARMONY MCCALL JR PATIENT MEDICARE (WNR) MEDICARE (M) PART A July 25, 2007 PART A [id number] [id number] HARMONY MCCALL JR PATIENT MEDICARE (WNR) MEDICARE (M) PART B July 25, 2007 PART B [id number] [id number] HARMONY MCCALL JR PATIENT MEDICARE (WNR) MEDICARE (M) PART A July 25, 2007 PART A [id number] [id number] [phone] [id number] HARMONY MCCALL JR PATIENT [facility] MEDICAL EXPENSE (OPT/PROF ) [facility] IN[facility]M * Jan 24, 2015 [id number] CAROLE MCCALL SPOUSE Selected Encounter This section includes the information on record at [place] for the Encounter. Date/Time Encounter Type Encounter Description Reason Provider Source Nov 29, 2023 11:00 AM HLTH BHV IVNTJ GRP EA ADDL WEIGHT MGMT & MOVE! PROG - GRP ICD-10-CM Z68.30 Body mass index [BMI] 30.0-30.9, adult GORDON PATHAK [facility] Encounter Template Text not used by [place] Assessments - Encounter Diagnoses This section includes the primary and secondary diagnoses documented for the Encounter. Date/Time Primary/Secondary Diagnosis Diagnosis Name Provider Source Nov 30, 2023 10:21 AM PRIMARY Body mass index [BMI] 30.0-30.9, adult GORDON PATHAK [facility] Nov 30, 2023 10:21 AM SECONDARY Other obesity due to excess calories GORDON PATHAK [facility] Plan of Treatment: Future Appointments (+ 6 [...] AMBULATORY - NONE [place] [place] [facility] Dec 06, 2023 11:00 AM AMBULATORY - NONE [place] Dec 11, 2023 10:00 AM AMBULATORY - NONE [place] [facility] [place] [facility] Dec 11, 2023 01:00 PM AMBULATORY - MEDICINE [place] [place] [facility] Dec 13, 2023 11:00 AM AMBULATORY - NONE [place] Dec 20, 2023 11:00 AM AMBULATORY - NONE [place] Dec 25, 2023 10:00 AM AMBULATORY - NONE [place] [facility] [place] [facility] Dec 27, 2023 11:00 AM AMBULATORY - NONE [place] Jan 03, 2024 11:00 AM AMBULATORY - NONE [place] Jan 08, 2024 10:00 AM AMBULATORY - NONE [place] [facility] [place] [facility] Jan 10, 2024 11:00 AM AMBULATORY - NONE [place] Jan 17, 2024 11:00 AM AMBULATORY - NONE [place] Jan 21, 2024 11:00 AM AMBULATORY - MEDICINE [place] [facility] Jan 22, 2024 11:00 AM AMBULATORY - MEDICINE [place] [facility] Jan 22, 2024 11:00 AM AMBULATORY - NONE [place] [facility] Jan 24, 2024 11:00 AM AMBULATORY - NONE [place] Jan 31, 2024 11:00 AM AMBULATORY - NONE [place] Feb 07, 2024 11:00 AM AMBULATORY - NONE [place] Feb 14, 2024 11:00 AM AMBULATORY - NONE [place] Feb 26, 2024 08:30 AM AMBULATORY - NONE [place] [facility]L [facility] [facility] Active, Pending, and Scheduled Orders This section includes a listing of several types of active, pending, and scheduled orders, including clinic medications orders, diagnostic test orders, procedure orders and consult orders; where the start date of the order is 45 days before the date of the Encounter or 45 days after the date of theEncounter. The data comes from all [place] treatment facilities. Test Date/Time Test Type Test Details Facility Name Jan 10, 2024 12:00 AM Laboratory - Chemi stry Order CBC BLOOD (LAV-BLOOD) [facility] Jan 10, 2024 12:00 AM Laboratory - Chemi stry Order LIPID PANEL, NON FASTING BLOOD (SST-SERUM) [place] [facility] [place] [facility] Jan 10, 2024 12:00 AM Laboratory - Chemi stry Order LIVER FUNCTION BLOOD (SST-SERUM) [place] [facility] [place] [facility] Jan 10, 2024 12:00 AM Laboratory - Chemi stry Order TSH BLOOD (SST-SERUM) [facility] Jan 10, 2024 12:00 AM Laboratory - Chemi stry Order FERRITIN BLOOD (SST-SERUM) [facility] Jan 10, 2024 12:00 AM Laboratory - Chemi stry Order BASIC METABOLIC PANEL (non-fasting) BLOOD (SST-SERUM) [place] [facility] Jan 10, 2024 12:00 AM Laboratory - Chemi stry Order VITAMIN B12 BLOOD (SST-SERUM) [facility] Jan 10, 2024 12:00 AM Laboratory - Chemi stry Order IRON & TIBC PANEL BLOOD (SST-SERUM) [facility] Vital Signs: All taken on the [...] AUTHOR: GORDON PATHAK COSIGNER: URGENCY: STATUS: COMPLETED [place] participated in MOVE! Group Counseling via [facility] on November 29, 2023. The [place] was provided with information on [facility] and has given verbal consent to [...] Name [ ] Address Veterans attended the [facility] MOVE! group session on this date. [...] goals for the next week. The next [facility] MOVE! group meeting will be held [...]
--- OUTSIDE RECORDS SUMMARY | 2024-03-21 08:12 | XMS_ITS | Encounter Summary ---
Author Name [place] Organization [place] Address [address] [place] [address] Care Team Providers Care Bumper And Painter Name Role Phone LEN MENDOZA Primary [...] PART B Sep 23, 2014 PART B [id number] HARMONY MCCALL JR PATIENT MEDICARE (WNR) MEDICARE (M) PART A July 25, 2007 PART A [id number] HARMONY MCCALL JR PATIENT MEDICARE (WNR) MEDICARE (M) PART B July 25, 2007 PART B [id number] [id number] HARMONY MCCALL JR PATIENT MEDICARE (WNR) MEDICARE (M) PART A July 25, 2007 PART A [id number] HARMONY MCCALL JR PATIENT [facility] MEDICAL EXPENSE (OPT/PROF ) [facility] [place] * Jan 24, 2015 [id number] CAROLE MCCALL SPOUSE Selected Encounter This [...] PM PRIMARY Lack of physical exercise JAXONTERRY [place] [facility] Plan of Treatment: Future Appointments [...] AMBULATORY - NONE [place] [facility] [facility] Dec 06, 2023 11:00 AM AMBULATORY - NONE [place] Dec 11, 2023 10:00 AM AMBULATORY - NONE [place] [facility] Dec 11, 2023 01:00 PM AMBULATORY - MEDICINE [place] [facility] Dec 13, 2023 11:00 AM AMBULATORY - NONE [place] Dec 20, 2023 11:00 AM AMBULATORY - NONE [place] Dec 25, 2023 10:00 AM AMBULATORY - NONE [place] [facility] [place] [facility] Dec 27, 2023 11:00 AM AMBULATORY - NONE [place] Jan 03, 2024 11:00 AM AMBULATORY - NONE [place] Jan 08, 2024 10:00 AM AMBULATORY - NONE [place] [facility] [facility] Jan 10, 2024 11:00 AM AMBULATORY - NONE [place] Jan 17, 2024 11:00 AM AMBULATORY - NONE [place] Jan 21, 2024 11:00 AM AMBULATORY - MEDICINE [facility] [place] [facility] Jan 22, 2024 11:00 AM [facility] Jan 22, 2024 11:00 AM AMBULATORY - NONE [place] [facility] Jan 24, 2024 11:00 AM AMBULATORY - NONE [place] Jan 31, 2024 11:00 AM AMBULATORY - NONE [place] Feb 07, 2024 11:00 AM AMBULATORY - NONE [place] Feb 14, 2024 11:00 AM AMBULATORY - NONE [place] Feb 26, 2024 08:30 AM [facility] Active, Pending, and Scheduled Orders This section includes a listing of several types of active, pending, and scheduled orders, including clinic medications orders, diagnostic test orders, procedure orders and consult orders; where the start date of the order is 45 days before the date of the Encounter or 45 days after the date of theEncounter. The data comes from all [place] treatment facilities. Test Date/Time Test Type Test Details Facility Name Jan 10, 2024 12:00 AM Laboratory - Chemi stry Order CBC BLOOD (LAV-BLOOD) [facility] Jan 10, 2024 12:00 AM Laboratory - Chemi stry Order BASIC METABOLIC PANEL (non-fasting) BLOOD (SST-SERUM) [facility] Jan 10, 2024 12:00 AM Laboratory - Chemi stry Order LIPID PANEL, NON FASTING BLOOD (SST-SERUM) [facility] Jan 10, 2024 12:00 AM Laboratory - Chemi stry Order LIVER FUNCTION BLOOD (SST-SERUM) [facility] Jan 10, 2024 12:00 AM Laboratory - Chemi stry Order TSH BLOOD (SST-SERUM) [facility] Jan 10, 2024 12:00 AM Laboratory - Chemi stry Order FERRITIN BLOOD (SST-SERUM) [facility] Jan 10, 2024 12:00 AM Laboratory - Chemi stry Order VITAMIN B12 BLOOD (SST-SERUM) [facility] Jan 10, 2024 12:00 AM Laboratory - Chemi stry Order IRON & TIBC PANEL BLOOD (SST-SERUM) SP [place] [facility] Social History: Smoking Status (Most current) and [...] 26, 2023 01:30 PM VA-TOBACCO FORMER USER [place] [facility] Tobacco Use History This section includes a history of the smoking, or tobacco-related health factors, that were collected on or before the date of the Encounter. The data comes from the [place] facility where the Encounter took place. Date/Time Smoking Status/Tobacco Use Comment F acility Jan 26, 2023 01:30 PM VA-TOBACCO QUIT 15 YRS OR MORE [place] [facility] Jan 27, 2022 11:00 AM VA-TOBACCO FORMER USER [place] [facility] Jan 27, 2022 11:00 AM VA-TOBACCO QUIT 15 YRS OR MORE [place] [facility] Sep 17, 2020 09:00 AM VA-TOBACCO FORMER USER [place] [facility] Sep 17, 2020 09:00 AM VA-TOBACCO QUIT 15 YRS OR MORE [place] [facility] Jun 04, 2019 02:57 PM VA-TOBACCO NEVER USED [place] [facility] Mar 14, 2018 11:23 AM VA-TOBACCO FORMER USER [place] [facility] Mar 14, 2018 11:23 AM VA-TOBACCO QUIT 15 YRS OR MORE [place] [facility] Apr 04, 2017 12:30 PM QUIT TOBACCO USE > 7 YEARS AGO [place] [facility] [facility] Apr 05, 2016 01:02 PM QUIT TOBACCO USE > 7 YEARS AGO quit in 1984 [place] [facility] Encounter Notes: All [...] informed consent to receive treatment via Telehealth., Breaks mailed and has been made verbally aware of [facility] [place] practices. 's Location: address on record unless specified below. Emergency Contact: on record unless specified below. participated remotely in the Gerofit exercise program today through [place] [employer]. Activities were focused on progression of their [...] preferences, and whole health concerns. /johanny/ TERRY CAOTES PT, DPT PHYSICAL THERAPIST Signed: 11/30/2023 13:48 TERRY COATES [place] [facility]
--- OUTSIDE RECORDS SUMMARY | 2024-03-21 08:13 | XMS_ITS | Encounter Summary ---
Author Name Department [place] Organization [place] Address [address] [place] [address] Care Team Providers Care Chemist Inorganic Name Role Phone LEN MENDOZA Primary Care [...] PART B Sep 23, 2014 PART B [id number] [id number] [phone] [id number] HARMONY MCCALL JR PATIENT MEDICARE (WNR) MEDICARE (M) PART A July 25, 2007 PART A [id number] HARMONY MCCALL JR PATIENT MEDICARE (WNR) MEDICARE (M) PART B July 25, 2007 PART B [id number] [phone] HARMONY MCCALL JR PATIENT MEDICARE (WNR) MEDICARE (M) PART A July 25, 2007 PART A [id number] HARMONY MCCALL JR PATIENT [facility] MEDICAL EXPENSE (OPT/PROF ) [facility] [place] * Jan 24, 2015 [id number] 18 CAROLE MCCALL SPOUSE Selected Encounter This section includes the information on record at [place] for the Encounter. Date/Time Encounter Type Encounter Description Reason Pro vider Source IHE Encounter Template Text not used by VA
--- OUTSIDE RECORDS SUMMARY | 2024-03-21 08:13 | XMS_ITS | Encounter Summary ---
Author Name Department of [place] Address [address] [place] [address] Care Team Providers Care Business Services Sales Representative Name Role Phone LEN MENDOZA Primary [...] PART B Sep 23, 2014 PART B [id number] [id number] HARMONY MCCALL JR PATIENT MEDICARE (WNR) MEDICARE (M) PART A July 25, 2007 PART A [id number] [id number] HARMONY MCCALL JR PATIENT MEDICARE (WNR) MEDICARE (M) PART B July 25, 2007 PART B [id number] [id number] HARMONY MCCALL JR PATIENT MEDICARE (WNR) MEDICARE (M) PART A July 25, 2007 PART A [id number] [id number] [id number] HARMONY MCCALL JR [facility]IENT [facility] * Jan 24, 2015 [id number] CAROLE MCCALL SPOUSE Selected Encounter This section includes the information on record at [place] for the Encounter. Date/Time Encounter Type Encounter Description Reason Provider Source Dec 11, 2023 01:00 PM HLTH BHV IVNTJ GRP EA ADDL HEALTH/WELLBEING SRVS ICD-10-CM Z73.3 Stress, not elsewhere classified GELA HANLEY [facility] Encounter Template Text not used by [place] Assessments - Encounter Diagnoses This section includes the primary and secondary diagnoses documented for the Encounter. Date/Time Primary/Secondary Diagnosis Diagnosis Name Provider Source Dec 23, 2023 01:24 PM PRIMARY Stress, not elsewhere classified GELA HANLEY [place] [facility] Plan of Treatment: Future Appointments [...] AMBULATORY - NONE [place] [facility] [place] [facility] Dec 27, 2023 11:00 AM AMBULATORY - NONE [place] Jan 03, 2024 11:00 AM AMBULATORY - NONE [place] Jan 08, 2024 10:00 AM AMBULATORY - NONE [place] [facility] Jan 10, 2024 11:00 AM AMBULATORY - NONE [place] Jan 17, 2024 11:00 AM AMBULATORY - NONE [place] Jan 21, 2024 11:00 AM AMBULATORY - MEDICINE [place] C [place] [facility] Jan 22, 2024 11:00 AM AMBULATORY - NONE [place] [facility] Jan 22, 2024 11:00 AM AMBULATORY - MEDICINE [facility] Jan 24, 2024 11:00 AM AMBULATORY - NONE [place] Jan 31, 2024 11:00 AM AMBULATORY - NONE [place] Feb 07, 2024 11:00 AM AMBULATORY - NONE [place] Feb 14, 2024 11:00 AM AMBULATORY - NONE [place] Feb 26, 2024 08:30 AM AMBULATORY - NONE [facility] Feb 26, 2024 08:30 AM AMBULATORY - MEDICINE [facility] Feb 28, 2024 11:00 AM AMBULATORY [...] data comes from all [place] treatment facilities. Test Date/Time Test Type Test Details Facility Name Jan 10, 2024 12:00 AM Laboratory - Chemi stry Order BASIC METABOLIC PANEL (non-fasting) BLOOD (SST-SERUM) [facility] Jan 10, 2024 12:00 AM Laboratory - Chemi stry Order LIPID PANEL, NON FASTING BLOOD (SST-SERUM) [facility] Jan 10, 2024 12:00 AM Laboratory - Chemi stry Order LIVER FUNCTION BLOOD (SST-SERUM) [facility] Jan 10, 2024 12:00 AM Laboratory - Chemi stry Order TSH BLOOD (SST-SERUM) [facility] Jan 10, 2024 12:00 AM Laboratory - Chemi stry Order CBC BLOOD (LAV-BLOOD) [facility] Jan 10, 2024 12:00 AM Laboratory - Chemi stry Order FERRITIN BLOOD (SST-SERUM) [facility] Jan 10, 2024 12:00 AM Laboratory - Chemi stry Order VITAMIN B12 BLOOD (SST-SERUM) [facility] Jan 10, 2024 12:00 AM Laboratory - Chemi stry Order IRON & TIBC PANEL BLOOD (SST-SERUM) SP [place] [facility] Social History: Smoking Status (Most [...] 26, 2023 01:30 PM VA[facility]TO[facility]ACCO [facility] Tobacco Use History This section includes a history of the smoking, or tobacco-related health factors, that were collected on or before the date of the Encounter. The data comes from the [place] facility where the Encounter took place. Date/Time Smoking Status/Tobacco Use Comment F acility Jan 26, 2023 01:30 PM VA-TOBACCO QUIT 15 YRS OR MORE [place] [facility] Jan 27, 2022 11:00 AM VA-TOBACCO FORMER USER [place] [facility] Jan 27, 2022 11:00 AM VA-TOBACCO QUIT 15 YRS OR MORE [place] [facility] Sep 17, 2020 09:00 AM VA-TOBACCO FORMER USER [place] [facility] Sep 17, 2020 09:00 AM VA-TOBACCO QUIT 15 YRS OR MORE [place] [facility] Jun 04, 2019 02:57 PM VA-TOBACCO NEVER USED [place] [facility] Mar 14, 2018 11:23 AM VA-TOBACCO FORMER USER [place] [facility] Mar 14, 2018 11:23 AM VA-TOBACCO QUIT 15 YRS OR MORE [place] [facility] Apr 04, 2017 12:30 PM QUIT TOBACCO USE > 7 YEARS AGO [place] [facility] [place] [facility] Apr 05, 2016 01:02 PM QUIT TOBACCO USE > 7 YEARS AGO quit in 1984 [place] [facility] Encounter Notes: All associated encounter notes This section contains the clinical notes associated to the Encounter. Date/Time Encounter Note(s) Provider Source Dec 11, 2023 01:00 PM CONSULT: LOCAL TITLE: CONSULT REPORT/WHOLE HEALTH STANDARD TITLE: CONSULT DATE OF NOTE: DEC 11, 2023@13:00 ENTRY DATE: DEC 11, 2023@14:30:08 AUTHOR: GELA HANLEY COSIGNER: URGENCY: STATUS: COMPLETED Date: Nov Number of Veterans attended: 16 Steward/Stewardess Deck/s: Gela Hanley, PhD; Cheyenne Gutierres, Health and Electronic Lab Technician Time: 60 minutes Diagnosis: Stress, not elsewhere classified Group Met: By [place] video connect Visit conducted by clinical video telehealth. Clinician directed use of exam camera. Individual/caregiver verbally consented to visit via telehealth: Yes Individual Contact Details: Best contact number for backup communication with individual: PATIENT PHONE - Emergency contact name/number: Primary NOK: CAROLE MCCALL Relation: [address] [facility] Phone: [place], [place] [phone] Individual Location/Surroundings During Visit: Individual confirmed that he/she is in a private and safe location for visit. Individual location during visit: Home [address] [place] [id number] WHOLE HEALTH GROUP/CLASS Introduction to Whole Health class attended Introduction to Whole Health session. Information was provided to introduce Veterans to the Whole Health approach to care. was supported in considering how to utilize his/her own strengths and abilities to help build a healing partnership with VA to optimize well-being with a focus on what matters most to the . Content included an overview of the [place] of Health/Personal Health Inventory and descriptions of 8 areas of self-care and well-being that address many areas of an individual's life. Facilitators discussed how Whole Health goes beyond illnesses, injuries, or disabilities and supports Veterans' focus on values and aspirations. [place] was encouraged to consider the question What would you do if your health were the best it could be? to assist with setting goals to improve health and well-being. The facilitators provided a description of local service available including, though not limited to: - Enrollment office information - Complementary and Integrative Health approaches - Whole Health Groups - Mental Health services - Whole Health Coaching - Next steps for care referral services (as needed) HANDOUTS: - Whole Health Brochure - Whole Health PHI - Whole Health [place] of [facility] All Veterans were given opportunities to participate and ask questions, and all questions posed were addressed. Veterans were informed of availability of emergency services, including 911 and the local ED, as well as the Crisis Line, [phone]. MISSION, ASPIRATION, PURPOSE (MAP), AND VALUES MAP and values are: Volunteer work, family, maintaining health Participation: [place] expressed understanding of group discussion. was engaged in the discussion. No SI/HI plan or intent expressed. Licensed Independent Practitioners: Clinical Observation was Alert & Oriented x3. Thoughts were normal, coherent, and linear. 's affect appeared full range and congruent with current mood. There was no evidence of perceptual or auditory disturbance observed. 's speech was of normal rate, rhythm, volume with normal content. Follow up: Displayed interest in follow up with: Declined further Whole Health follow up /es/ Gela Hanley, PhD Clinical Psychologist Signed: 12/11/2023 14:34 GELA HANLEY [facility]
--- OUTSIDE RECORDS SUMMARY | 2024-03-21 08:13 | XMS_ITS | Encounter Summary ---
Author Name [place] Organization [place] Address [address] [place] [address] Care Team Providers Care Whiskey Proof Reader Name Role Phone LEN MENDOZA Primary Care [...] PART B Sep 23, 2014 PART B [id number] HARMONY MCCALL JR PATIENT MEDICARE (WNR) MEDICARE (M) PART A July 25, 2007 PART A [id number] [id number] [phone] HARMONY MCCALL JR PATIENT MEDICARE (WNR) MEDICARE (M) PART B July 25, 2007 PART B [id number] [phone] HARMONY MCCALL JR PATIENT MEDICARE (WNR) MEDICARE (M) PART A July 25, 2007 PART A [id number] HARMONY MCCALL JR PATIENT [facility] MEDICAL EXPENSE (OPT/PROF ) [facility] * Jan 24, 2015 [id number] CAROLE MCCALL SPOUSE Selected Encounter This section includes the information on record at [place] for the Encounter. Date/Time Encounter Type Encounter Description Reason Provider Source Dec 03, 2023 10:48 AM EXERCISE CLASS HEALTH/WELLBEING SRVS ICD-10-CM Z72.3 Lack of physical exercise JANIE LAZCANO [facility] Encounter Template Text not used by [place] Assessments - Encounter Diagnoses This section includes the primary and secondary diagnoses documented for the Encounter. Date/Time Primary/Secondary Diagnosis Diagnosis Name Provider Source Dec 03, 2023 11:02 AM PRIMARY Lack of physical exercise JANIE LAZCANO [facility] Plan of Treatment: Future Appointments (+ [...] 11, 2023 01:00 PM AMBULATORY - MEDICINE [place] [place] [facility] 21, 2024 11:00 AM AMBULATORY - MEDICINE [place] [facility] Jan 22, 2024 11:00 AM AMBULATORY - MEDICINE [place] [facility] Jan 22, 2024 11:00 AM AMBULATORY - NONE [facility] Jan 24, 2024 11:00 AM AMBULATORY - NONE [place] Jan 31, 2024 11:00 AM AMBULATORY - NONE [place] Feb 07, 2024 11:00 AM AMBULATORY - NONE [place] Feb 14, 2024 11:00 AM AMBULATORY - NONE [place] Feb 26, 2024 08:30 AM [facility] Feb 26, 2024 08:30 AM [facility] Active, Pending, and Scheduled Orders This section includes a listing of several types of active, pending, and scheduled orders, including clinic medications orders, diagnostic test orders, procedure orders and consult orders; where the start date of the order is 45 days before the date of the Encounter or 45 days after the date of theEncounter. The data comes from all [place] treatment facilities. Test Date/Time Test Type Test Details Facility Name Jan 10, 2024 12:00 AM Laboratory - Chemi stry Order CBC BLOOD (LAV-BLOOD) [facility] Jan 10, 2024 12:00 AM Laboratory - Chemi stry Order BASIC METABOLIC PANEL (non-fasting) BLOOD (SST-SERUM) [facility] Jan 10, 2024 12:00 AM Laboratory - Chemi stry Order LIPID PANEL, NON FASTING BLOOD (SST-SERUM) [facility] Jan 10, 2024 12:00 AM Laboratory - Chemi stry Order LIVER FUNCTION BLOOD (SST-SERUM) [facility] Jan 10, 2024 12:00 AM Laboratory - Chemi stry Order TSH BLOOD (SST-SERUM) [facility] Jan 10, 2024 12:00 AM Laboratory - Chemi stry Order FERRITIN BLOOD (SST-SERUM) [facility] Jan 10, 2024 12:00 AM Laboratory - Chemi stry Order VITAMIN B12 BLOOD (SST-SERUM) [facility] Jan 10, 2024 12:00 AM Laboratory - Chemi stry Order IRON & TIBC PANEL BLOOD (SST-SERUM) [place] [facility] [...] 26, 2023 01:30 PM VA-TOBACCO FORMER USER [place] [facility] Tobacco Use History This section includes a history of the smoking, or tobacco-related health factors, that were collected on or before the date of the Encounter. The data comes from the [place] facility where the Encounter took place. Date/Time Smoking Status/Tobacco Use Comment F acility Jan 26, 2023 01:30 PM VA-TOBACCO QUIT 15 YRS OR MORE [place] [facility] Jan 27, 2022 11:00 AM VA-TOBACCO FORMER USER [place] [facility] Jan 27, 2022 11:00 AM VA-TOBACCO QUIT 15 YRS OR MORE IN [place] [facility] Sep 17, 2020 09:00 AM VA-TOBACCO FORMER USER [place] [facility] Sep 17, 2020 09:00 AM VA-TOBACCO QUIT 15 YRS OR MORE [place] [facility] Jun 04, 2019 02:57 PM VA-TOBACCO NEVER USED IN [place] [facility] Mar 14, 2018 11:23 AM VA-TOBACCO FORMER USER IN [place] [facility] Mar 14, 2018 11:23 AM VA-TOBACCO QUIT 15 YRS OR MORE IN [place] [facility] Apr 04, 2017 12:30 PM QUIT TOBACCO USE > 7 YEARS AGO [place] [facility] [place] [facility] Apr 05, 2016 01:02 PM QUIT TOBACCO USE > 7 YEARS AGO quit in 1984 [place] [facility] Encounter Notes: All associated encounter notes This section contains the clinical notes associated to the Encounter. Date/Time Encounter Note(s) Provider Source Dec 03, 2023 10:57 AM GERIATRIC MEDICINE NOTE: LOCAL TITLE: GEROFIT VCM/VVC/VOD TELEHEALTH SUPERVISED EXERCISE STANDARD TITLE: GERIATRIC MEDICINE NOTE DATE OF NOTE: DEC 03, 2023@10:57 ENTRY DATE: DEC 03, 2023@10:57:35 AUTHOR: JANIE LAZCANO EXP COSIGNER: URGENCY: STATUS: COMPLETED [place] Provided informed consent to receive treatment via Telehealth., mailed and has been made verbally aware of [facility] [place] practices. [place]'s Location: address on record unless specified below. Emergency Contact: on record unless specified below. [place] participated remotely in the Gerofit exercise program today through [place] [employer]. Activities were focused on progression of their [...] /es/ Janie Lazcano PT,DPT PHYSICAL THERAPIST Signed: 12/03/2023 11:07 JANIE LAZCANO IN CNTRL [facility]
--- OUTSIDE RECORDS SUMMARY | 2024-03-21 08:13 | XMS_ITS | Encounter Summary ---
Author Name [facility] [place] Organization [place] Address [address] [place] [id number] Care Team Providers Care Mold Laminator Name Role Phone LEN MENDOZA Primary Care [...] PART B Sep 23, 2014 PART B [id number] [id number] [phone] HARMONY MCCALL JR PATIENT MEDICARE (WNR) MEDICARE (M) PART A July 25, 2007 PART A [id number] HARMONY MCCALL JR PATIENT MEDICARE (WNR) MEDICARE (M) PART B July 25, 2007 PART B [id number] HARMONY MCCALL JR PATIENT MEDICARE (WNR) MEDICARE (M) PART A July 25, 2007 PART A [id number] HARMONY MCCALL JR PATIENT [facility]MERLY [facility] MEDICAL EXPENSE (OPT/PROF ) [facility] * Jan 24, 2015 [id number] CAROLE MCCALL SPOUSE Selected Encounter This section includes the information on record at [place] for the Encounter. Date/Time Encounter Type Encounter Description Reason Provider Source Dec 13, 2023 11:00 AM HLTH BHV IVNTJ GRP EA ADDL WEIGHT MGMT & MOVE! PROG - GRP ICD-10-CM Z68.30 Body mass index [BMI] 30.0-30.9, adult GORDON PATHAK [facility] Encounter Template Text not used by [place] Assessments - Encounter Diagnoses This section includes the primary and secondary diagnoses documented for the Encounter. Date/Time Primary/Secondary Diagnosis Diagnosis Name Provider Source Dec 14, 2023 06:09 PM PRIMARY Body mass index [BMI] 30.0-30.9, adult GORDON PATHAK [place] Dec 14, 2023 06:09 PM SECONDARY Other obesity due to excess calories GORDON PATHAK [place] Plan of Treatment: Future Appointments (+ 6 [...] [place] [facility] Dec 27, 2023 11:00 AM AMBULATORY - NONE [place] Jan 03, 2024 11:00 AM AMBULATORY - NONE [place] Jan 08, 2024 10:00 AM AMBULATORY - NONE [place] [facility] Jan 10, 2024 11:00 AM AMBULATORY - NONE [place] Jan 17, 2024 11:00 AM AMBULATORY - NONE [place] Jan 21, 2024 11:00 AM AMBULATORY - MEDICINE [place] [facility] Jan 22, 2024 11:00 AM AMBULATORY - MEDICINE [facility] [place] [facility] Jan 22, 2024 11:00 AM AMBULATORY - NONE [place] [facility] Jan 24, 2024 11:00 AM AMBULATORY - NONE [place] Jan 31, 2024 11:00 AM AMBULATORY - NONE [place] Feb 07, 2024 11:00 AM AMBULATORY - NONE [place] Feb 14, 2024 11:00 AM AMBULATORY - NONE [place] Feb 26, 2024 08:30 AM AMBULATORY - NONE [facility] Feb 26, 2024 08:30 AM AMBULATORY - MEDICINE [facility] Feb 28, 2024 11:00 AM [...] of theEncounter. The data comes from all [place] treatment facilities. Test Date/Time Test Type Test Details Facility Name Jan 10, 2024 12:00 AM Laboratory - Chemi stry Order CBC BLOOD (LA[facility]OOD) [facility] Jan 10, 2024 12:00 AM Laboratory - Chemi stry Order BASIC METABOLIC PANEL (non-fasting) BLOOD (SST-SERUM) [facility] Jan 10, 2024 12:00 AM Laboratory - Chemi stry Order LIPID PANEL, NON FASTING BLOOD (SST-SERUM) [facility] Jan 10, 2024 12:00 AM Laboratory - Chemi stry Order LIVER FUNCTION BLOOD (SST-SERUM) [facility] Jan 10, 2024 12:00 AM Laboratory - Chemi stry Order TSH BLOOD (SST-SERUM) [facility] Jan 10, 2024 12:00 AM Laboratory - Chemi stry Order FERRITIN BLOOD (SST-SERUM) [facility] Jan 10, 2024 12:00 AM Laboratory - Chemi stry Order VITAMIN B12 BLOOD (SST-SERUM) [facility] Jan 10, 2024 12:00 AM Laboratory - Chemi stry Order IRON & TIBC PANEL BLOOD (SST-SERUM) SP [place] [facility] [facility] Vital Signs: All taken on the encounter [...] via VVC on December 13, 2023. The was provided with information [...] for the next week. The next [facility] MOVE! group meeting will be held on November @ 11:00am. [place]'s reported weight was 210.1 lbs. and lost 0.9 pounds since last group attended. Dx: Obesity d/t Excess Calories Obesity E66.09 BMI 30.0-30.9 The session lasted for 1 hour in duration. /johanny/ GORDON PATHAK, Ph.D. CLINICAL PSYCHOLOGIST Signed: 12/14/2023 18:17 Receipt Acknowledged By: 12/18/2023 08:47 /johanny/ SANTIAGO KRAMER STAFF DIETITIAN GORDON PATHAKFIELD
--- OUTSIDE RECORDS SUMMARY | 2024-03-21 08:13 | XMS_ITS | Encounter Summary ---
Author Name [place] Address [address] [place] [id number] Care Team Providers Care Fuel House Attendant Name Role Phone LEN MENDOZA Primary [...] PART B Sep 23, 2014 PART B [id number] [id number] [phone] [id number] HARMONY MCCALL JR PATIENT MEDICARE (WNR) MEDICARE (M) PART A July 25, 2007 PART A [id number] HARMONY MCCALL JR PATIENT MEDICARE (WNR) MEDICARE (M) PART B July 25, 2007 PART B [id number] HARMONY MCCALL JR PATIENT MEDICARE (WNR) MEDICARE (M) PART A July 25, 2007 PART A [id number] HARMONY MCCALL JR [facility]IENT [facility] (OPT/PROF ) [facility] * Jan 24, 2015 [id number] CAROLE MCCALL SPOUSE Selected Encounter This section includes the information on record at [place] for the Encounter. Date/Time Encounter Type Encounter Description Reason Provider Source Dec 05, 2023 10:23 AM EXERCISE CLASS HEALTH/WELLBEING [facility] ICD-10-CM Z72.3 Lack of physical exercise JANIE LAZCANO [facility] Encounter Template Text not used by [place] Assessments - Encounter Diagnoses This section includes the primary and secondary diagnoses documented for the Encounter. Date/Time Primary/Secondary Diagnosis Diagnosis Name Provider Source Dec 05, 2023 10:44 AM PRIMARY Lack of physical exercise [facility]IE LAZCANO [facility] Plan of Treatment: Future Appointments (+ [...] 11, 2023 01:00 PM AMBULATORY - [place]ICINE [place] [facility] [...] 21, 2024 11:00 AM AMBULATORY - [place]ICINE [place] [facility] Jan 22, 2024 11:00 AM AMBULATORY - [facility]ICINE [facility] [place] [facility] Jan 22, 2024 11:00 AM AMBULATORY - NONE [place] [facility] Jan 24, 2024 11:00 AM AMBULATORY - NONE [place] Jan 31, 2024 11:00 AM AMBULATORY - NONE [place] Feb 07, 2024 11:00 AM AMBULATORY - NONE [place] Feb 14, 2024 11:00 AM AMBULATORY - NONE [place] Feb 26, 2024 08:30 AM [facility] Feb 26, 2024 08:30 AM [facility]UL[facility] Active, Pending, and Scheduled Orders This [...] - Chemi stry Order CBC BLOOD (LAV-BLOOD) [facility] Jan 10, 2024 12:00 AM Laboratory - Chemi stry Order BASIC METABOLIC PANEL (non-fasting) BLOOD (SST-SERUM) [facility] Jan 10, 2024 12:00 AM Laboratory - Chemi stry Order LIPID PANEL, NON FASTING BLOOD (SST-SERUM) [facility] Jan 10, 2024 12:00 AM Laboratory - Chemi stry Order LIVER FUNCTION BLOOD (SST-SERUM) [facility] Jan 10, 2024 12:00 AM Laboratory - Chemi stry Order TSH BLOOD (SST-SERUM) [facility] Jan 10, 2024 12:00 AM Laboratory - Chemi stry Order FERRITIN BLOOD (SST-SERUM) [facility] Jan 10, 2024 12:00 AM Laboratory - Chemi stry Order VITAMIN B12 BLOOD (SST-SERUM) [facility] Jan 10, 2024 12:00 AM Laboratory - Chemi stry Order IRON & TIBC PANEL BLOOD (SST-SERUM) [place] [facility] Social History: Smoking Status (Most current) [...] 26, 2023 01:30 PM VA-TOBACCO FORMER USER [place] [facility] Tobacco Use History This section includes a history of the smoking, or tobacco-related health factors, that were collected on or before the date of the Encounter. The data comes from the [place] facility where the Encounter took place. Date/Time Smoking Status/Tobacco Use Comment F acility Jan 26, 2023 01:30 PM VA-TOBACCO QUIT 15 YRS OR MORE [place] [facility] Jan 27, 2022 11:00 AM VA-TOBACCO FORMER USER [place] [facility] Jan 27, 2022 11:00 AM VA-TOBACCO QUIT 15 YRS OR MORE [place] [facility] Sep 17, 2020 09:00 AM VA-TOBACCO FORMER USER [place] [facility] Sep 17, 2020 09:00 AM VA-TOBACCO QUIT 15 YRS OR MORE [place] [facility] Jun 04, 2019 02:57 PM VA-TOBACCO NEVER USED [place] [facility] Mar 14, 2018 11:23 AM VA-TOBACCO FORMER USER [place] [facility] Mar 14, 2018 11:23 AM VA-TOBACCO QUIT 15 YRS OR MORE [place] [facility] Apr 04, 2017 12:30 PM QUIT TOBACCO USE > 7 YEARS AGO [place] [facility] [place] [facility] Apr 05, 2016 01:02 PM QUIT TOBACCO USE > 7 YEARS AGO quit in 1984 [place] [facility] Encounter Notes: All associated encounter notes This section contains the clinical notes associated to the Encounter. Date/Time Encounter Note(s) Provider Source Dec 05, 2023 10:31 AM GERIATRIC MEDICINE NOTE: LOCAL TITLE: GEROFIT VCM/VVC/VOD TELEHEALTH SUPERVISED EXERCISE STANDARD TITLE: GERIATRIC MEDICINE NOTE DATE OF NOTE: DEC 05, 2023@10:31 ENTRY DATE: DEC 05, 2023@10:32:05 AUTHOR: JANIE LAZCANO EXP COSIGNER: URGENCY: STATUS: COMPLETED [place] Provided informed consent to receive treatment via Telehealth., mailed and has been made verbally aware of Telehealth Group [place] practices. [place]'s Location: address on record unless specified below. Emergency Contact: on record unless specified below. [place] participated remotely in the Gerofit exercise program today through [place] Virtual Volunteer Services Manager. Activities were focused on progression of [...] PHYSICAL THERAPIST Signed: 12/05/2023 10:56 JANIE LAZCANO [place] [facility] [facility]
--- OUTSIDE RECORDS SUMMARY | 2024-03-21 08:13 | XMS_ITS ---
Author Name [place] Address [address] [place] [address] Care Team Providers Care Table Worker Name Role Phone LEN MENDOZA Primary [...] PART B Sep 23, 2014 PART B [id number] HARMONY MCCALL JR PATIENT MEDICARE (WNR) MEDICARE (M) PART A July 25, 2007 PART A [id number] [id number] [phone] HARMONY MCCALL JR PATIENT MEDICARE (WNR) MEDICARE (M) PART B July 25, 2007 PART B [id number] [phone] HARMONY MCCALL JR PATIENT MEDICARE (WNR) MEDICARE (M) PART A July 25, 2007 PART A [id number] [id number] [phone] [id number] HARMONY MCCALL JR PATIENT [facility] MEDICAL EXPENSE (OPT/PROF ) [facility] * Jan 24, 2015 [id number] CAROLE MCCALL SPOUSE Selected Encounter This section includes the information on record at [place] for the Encounter. Date/Time Encounter Type Encounter Description Reason Provider Source Dec 11, 2023 10:00 AM PT EDUCATION NOC GROUP NUTRITION/DIETETI CS-GROUP ICD-10-CM Z71.3 Dietary counseling and surveillance CURTIS GRACIA Erin Encounter Template Text not used by [place] Assessments - Encounter Diagnoses This section includes the primary and secondary diagnoses documented for the Encounter. Date/Time Primary/Secondary Diagnosis Diagnosis Name Provider Source Dec 11, 2023 12:47 PM PRIMARY Dietary counseling and surveillance CURTIS GRACIA [facility] Plan of Treatment: Future Appointments (+ [...] - NONE [place] [place] [facility] Dec 27, 2023 11:00 AM AMBULATORY - NONE [place] Jan 03, 2024 11:00 AM AMBULATORY - NONE [place] Jan 08, 2024 10:00 AM AMBULATORY - NONE [place] [facility] [place] [facility] Jan 10, 2024 11:00 AM AMBULATORY - NONE [place] Jan 17, 2024 11:00 AM AMBULATORY - NONE [place] Jan 21, 2024 11:00 AM AMBULATORY - MEDICINE [place] [facility] Jan 22, 2024 11:00 AM AMBULATORY - NONE [place] [place] [facility] Jan 22, 2024 11:00 AM AMBULATORY - MEDICINE [facility] [place] [facility] Jan 24, 2024 11:00 AM AMBULATORY - NONE [place] Jan 31, 2024 11:00 AM AMBULATORY - NONE [place] Feb 07, 2024 11:00 AM AMBULATORY - NONE [place] Feb 14, 2024 11:00 AM AMBULATORY - NONE [place] Feb 26, 2024 08:30 AM AMBULATORY - NONE [facility] Feb 26, 2024 08:30 AM AMBULATORY - MEDICINE [facility] [place] [facility] Feb 28, 2024 11:00 AM AMBULATORY - NONE [place] Mar 06, 2024 11:00 AM AMBULATORY - NONE [place] Mar 13, 2024 11:00 AM AMBULATORY - NONE [place] [place] Active, Pending, and Scheduled Orders This section includes a listing of several types of active, pending, and scheduled orders, including clinic medications orders, diagnostic test orders, procedure orders and consult orders; where the start date of the order is 45 days before the date of the Encounter or 45 days after the date of theEncounter. The data comes from all [place] treatment facilities. Test Date/Time Test Type Test Details Facility Name Jan 10, 2024 12:00 AM Laboratory - Chemi stry Order BASIC METABOLIC PANEL (non-fasting) BLOOD (SST-SERUM) [facility] Jan 10, 2024 12:00 AM Laboratory - Chemi stry Order LIPID PANEL, NON FASTING BLOOD (SST-SERUM) [facility] Jan 10, 2024 12:00 AM Laboratory - Chemi stry Order LIVER FUNCTION BLOOD (SST-SERUM) [facility] Jan 10, 2024 12:00 AM Laboratory - Chemi stry Order TSH BLOOD (SST-SERUM) [facility] Jan 10, 2024 12:00 AM Laboratory - Chemi stry Order CBC BLOOD (LAV-BLOOD) [facility] Jan 10, 2024 12:00 AM Laboratory - Chemi stry Order FERRITIN BLOOD (SST-SERUM) [facility] Jan 10, 2024 12:00 AM Laboratory - Chemi stry Order VITAMIN B12 BLOOD (SST-SERUM) [facility] Jan 10, 2024 12:00 AM Laboratory - Chemi stry Order IRON & TIBC PANEL BLOOD (SST-SERUM) [place] [facility] Social History: Smoking Status (Most current) and Tobacco Use (All prior to encounter date) This section includes the most current, and the historical, smoking and tobacco- related health factors from the [place] facility where the Encounter took place. Current Smoking Status This section includes the most current smoking, or tobacco-related health factor, from the [place] facility where the Encounter took place. Date/Time Current Smoking Status Comment Facil ity Jan 26, 2023 01:30 PM VA-TOBACCO FORMER USER [place] [facility] Tobacco Use History This section includes a history of the smoking, or tobacco-related health factors, that were collected on or before the date of the Encounter. The data comes from the [place] facility where the Encounter took place. Date/Time Smoking Status/Tobacco Use Comment F acility Jan 26, 2023 01:30 PM VA-TOBACCO QUIT 15 YRS OR MORE [place] [facility] Jan 27, 2022 11:00 AM VA-TOBACCO FORMER USER [place] [facility] Jan 27, 2022 11:00 AM VA-TOBACCO QUIT 15 YRS OR MORE [place] [facility] Sep 17, 2020 09:00 AM VA-TOBACCO FORMER USER [place] [facility] Sep 17, 2020 09:00 AM VA-TOBACCO QUIT 15 YRS OR MORE [place] [facility] Jun 04, 2019 02:57 PM VA-TOBACCO NEVER USED [place] [facility] Mar 14, 2018 11:23 AM VA-TOBACCO FORMER USER [place] [facility] Mar 14, 2018 11:23 AM VA-TOBACCO QUIT 15 YRS OR MORE [place] [facility] Apr 04, 2017 12:30 PM QUIT TOBACCO USE > 7 YEARS AGO [place] [facility] Apr 05, 2016 01:02 PM QUIT TOBACCO USE > 7 YEARS AGO [facility] [place] [facility] Encounter Notes: All associated encounter notes This section contains the clinical notes associated to the Encounter. Date/Time Encounter Note(s) Provider Source Dec 11, 2023 10:00 AM NUTRITION GROUP COUNSELING NOTE: LOCAL TITLE: NUTRITION GROUP NOTE STANDARD TITLE: NUTRITION GROUP COUNSELING NOTE DATE OF NOTE: DEC 11, 2023@10:00 ENTRY DATE: DEC 11, 2023@12:45:39 AUTHOR: CURTIS GRACIA [facility] COSIGNER: URGENCY: STATUS: COMPLETED Veterans participated in HTK via [facility] on: 12/11/23. The was provided with information on [facility] and has given verbal consent to use group [facility] services for their healthcare. The copy of the Group Telehealth Agreement has been mailed to the [place]. The 's location/emergency contact number were confirmed. The Emergency Call Relay Center (E911) was available. The visit was locked for security and privacy. [place] identified with 2 identifiers: [x] Full Name [x] Address This class was taught by one Registered Dietitian with one co-host dietitian Dx: Z71.3 Time Spent: 60 minutes Participants: 14 Veterans, 2 collaterals Nutrition Education Topics: Intro to [facility] HTK, Nutrient content of recipe ingredients Cooking demonstration: Sheet Goldman Balsamic Chicken and Vegetables, Baked Balsamic Tofu Veterans attended the 76th class of the [facility] Healthy Teaching Kitchen. Today we went [...] Staff Dietitian Signed: 12/11/2023 12:49 CURTIS GRACIA [place] [facility]
--- OUTSIDE RECORDS SUMMARY | 2024-03-21 08:13 | XMS_ITS | Encounter Summary ---
Author Name [place] Address [address] [place] [address] Care Team Providers Care Religion Instructor Name Role Phone LEN MENDOZA Primary [...] PART B Sep 23, 2014 PART B [id number] HARMONY MCCALL JR PATIENT MEDICARE (WNR) MEDICARE (M) PART A July 25, 2007 PART A [id number] [id number] HARMONY MCCALL JR PATIENT MEDICARE (WNR) MEDICARE (M) PART B July 25, 2007 PART B [id number] [id number] HARMONY MCCALL JR PATIENT MEDICARE (WNR) MEDICARE (M) PART A July 25, 2007 PART A [id number] [id number] HARMONY MCCALL JR PATIENT [facility] MEDICAL EXPENSE (OPT/PROF ) [facility] * Jan 24, 2015 [id number] [phone] CAROLE MCCALL SPOUSE Selected Encounter This [...] 22, 2024 11:00 AM AMBULATORY - MEDICINE [facility] Jan 22, 2024 11:00 AM AMBULATORY - NONE [place] [facility] Jan 24, 2024 11:00 AM AMBULATORY - NONE [place] Jan 31, 2024 11:00 AM AMBULATORY - NONE [place] Feb 07, 2024 11:00 AM AMBULATORY - NONE [place] Feb 14, 2024 11:00 AM AMBULATORY - NONE [place] Feb 26, 2024 08:30 AM AMBULATORY - NONE [place] [facility] Feb 26, 2024 08:30 AM AMBULATORY - [facility]ICINE [facility] [place] [facility] Feb 28, 2024 11:00 AM AMBULATORY [...] - Chemi stry Order CBC BLOOD (LAV-BLOOD) [facility] Jan 10, 2024 12:00 AM Laboratory - Chemi stry Order LIPID PANEL, NON FASTING BLOOD (SST-SERUM) [facility] Jan 10, 2024 12:00 AM Laboratory - Chemi stry Order LIVER FUNCTION BLOOD (SST-SERUM) [facility] Jan 10, 2024 12:00 AM Laboratory - Chemi stry Order TSH BLOOD (SST-SERUM) [facility] Jan 10, 2024 12:00 AM Laboratory - Chemi stry Order FERRITIN BLOOD (SST-SERUM) [facility] Jan 10, 2024 12:00 AM Laboratory - Chemi stry Order BASIC METABOLIC PANEL (non-fasting) BLOOD (SST-SERUM) [facility] Jan 10, 2024 12:00 AM Laboratory - Chemi stry Order VITAMIN B12 BLOOD (SST-SERUM) [facility] Jan 10, 2024 12:00 AM Laboratory - Chemi stry Order IRON & TIBC PANEL BLOOD (SST-SERUM) [place] [facility] Encounter Notes: All associated encounter notes This section contains the clinical notes associated to the Encounter. Date/Time Encounter Note(s) Provider Source Dec 06, 2023 11:00 AM MOVE NOTE: LOCAL TITLE: WEIGHT MANAGEMENT/MOVE! OUTPATIENT GROUP NOTE STANDARD TITLE: MOVE NOTE DATE OF NOTE: DEC 06, 2023@11:00 ENTRY DATE: DEC 06, 2023@13:32:30 AUTHOR: SANTIAGO KRAMER EXP COSIGNER: URGENCY: STATUS: COMPLETED [place] participated in MOVE! Group Counseling via [facility] on December 06, 2023. The [place] was provided with information on [facility] and has given verbal consent to use group [facility] services for their healthcare. The copy of the Group Telehealth Agreement has been mailed to the [place]. The Veterans location/emergency contact number were confirmed. The Emergency Call Relay Center (E911) was available. The visit was locked for security and privacy. [place] identified with 2 identifiers: [ ] Full Name [ ] Address Veterans attended the [facility] MOVE! group session on [...] goals for the next week. The next [facility] MOVE! group meeting will [...]
--- OUTSIDE RECORDS SUMMARY | 2024-03-21 08:13 | XMS_ITS | Encounter Summary ---
Author Name [facility] [place] Address [address] [place] [id number] Care Team Providers Care Transportation Dispatch Manager Name Role Phone LEN MENDOZA Primary [...] PART B Sep 23, 2014 PART B [id number] HARMONY MCCALL JR PATIENT MEDICARE (WNR) MEDICARE (M) PART A July 25, 2007 PART A [id number] HARMONY MCCALL JR PATIENT MEDICARE (WNR) MEDICARE (M) PART B July 25, 2007 PART B [id number] [phone] HARMONY MCCALL JR PATIENT MEDICARE (WNR) MEDICARE (M) PART A July 25, 2007 PART A [id number] HARMONY MCCALL JR PATIENT [facility] MEDICAL EXPENSE (OPT/PROF ) [facility] [place] * Jan 24, 2015 [id number] 18 CAROLE MCCALL SPOUSE Selected Encounter This section includes the information on record at [place] for the Encounter. Date/Time Encounter Type Encounter Description Reason Provider Source Dec 03, 2023 02:00 PM COLLJ & INTERPJ DATA EA 30 D SLEEP MEDICINE ICD-10-CM G47.[address], [address] [facility] Erin Encounter Template Text not used by [place] Assessments - Encounter Diagnoses This section includes the primary and secondary diagnoses documented for the Encounter. Date/Time Primary/Secondary Diagnosis Diagnosis Name Provider Source Dec 14, 2023 11:28 AM PRIMARY Sleep apnea, unspecified [facility] [place] Plan of Treatment: Future Appointments (+ 6 [...] AMBULATORY - NONE [facility] [place] [facility] Dec 11, 2023 01:00 PM AMBULATORY - MEDICINE [facility] [place] [facility] Dec 13, 2023 11:00 AM AMBULATORY - NONE [place] Dec 20, 2023 11:00 AM AMBULATORY - NONE [place] Dec 25, 2023 10:00 AM AMBULATORY - NONE [facility] [place] [facility] Dec 27, 2023 11:00 AM AMBULATORY - NONE [place] Jan 03, 2024 11:00 AM AMBULATORY - NONE [place] Jan 08, 2024 10:00 AM AMBULATORY - NONE [facility] [place] [facility] Jan 10, 2024 11:00 AM AMBULATORY - NONE [place] Jan 17, 2024 11:00 AM AMBULATORY - NONE [place] Jan 21, 2024 11:00 AM AMBULATORY - MEDICINE [facility] [place] [place] [facility] Jan 22, 2024 11:00 AM AMBULATORY - MEDICINE [place] [facility] Jan 22, 2024 11:00 AM AMBULATORY - NONE [facility] Jan 24, 2024 11:00 AM AMBULATORY - NONE [place] Jan 31, 2024 11:00 AM AMBULATORY - NONE [place] Feb 07, 2024 11:00 AM AMBULATORY - NONE [place] Feb 14, 2024 11:00 AM AMBULATORY - NONE [place] Feb 26, 2024 08:30 AM AMBULATORY - NONE [facility] Feb 26, 2024 08:30 AM AMBULATORY - MEDICINE [facility] [place] [facility] Active, Pending, and Scheduled Orders This section includes a listing of several types of active, pending, and scheduled orders, including clinic medications orders, diagnostic test orders, procedure orders and consult orders; where the start date of the order is 45 days before the date of the Encounter or 45 days after the date of theEncounter. The data comes from all [place] treatment facilities. Test Date/Time Test Type Test Details Facility Name Jan 10, 2024 12:00 AM Laboratory - Chemi stry Order CBC BLOOD (LAV-BLOOD) [facility] Jan 10, 2024 12:00 AM Laboratory - Chemi stry Order LIPID PANEL, NON FASTING BLOOD (SST-SERUM) [facility] Jan 10, 2024 12:00 AM Laboratory - Chemi stry Order LIVER FUNCTION BLOOD (SST-SERUM) [facility] Jan 10, 2024 12:00 AM Laboratory - Chemi stry Order TSH BLOOD (SST-SERUM) [facility] Jan 10, 2024 12:00 AM Laboratory - Chemi stry Order FERRITIN BLOOD ([facility]UM) [facility] Jan 10, 2024 12:00 AM Laboratory - Chemi stry Order BASIC METABOLIC PANEL (non-fasting) BLOOD (SST-SERUM) [facility] Jan 10, 2024 12:00 AM Laboratory - Chemi stry Order VITAMIN B12 BLOOD (SST-SERUM) [facility] Jan 10, 2024 12:00 AM Laboratory - Chemi stry Order IRON & TIBC PANEL BLOOD (SST-SERUM) [facility] [place] [facility] Encounter Notes: All associated encounter notes This section contains the clinical notes associated to the Encounter. Date/Time Encounter Note(s) Provider Source Dec 03, 2023 02:29 PM RESPIRATORY THERAP Y NOTE: LOCAL TITLE: RESPIRATORY THERAPY NOTE(BLANK) STANDARD TITLE: RESPIRATORY THERAPY NOTE DATE OF NOTE: DEC 03, 2023@14:29 ENTRY DATE: DEC 03, 2023@14:29:59 AUTHOR: CURTIS PUCKETT EXP COSIGNER: URGENCY: STATUS: COMPLETED [place] diagnosed with sleep apnea seen for follow [...] by positional mask leak with further explanation. Banner has also lost weight since initial testing and feels this may have reversed his sleep apnea. Radha was offered and is agreeable to [facility]T [facility] Compliance Report Usage [...] 42 hours AirSense 11 AutoSet Serial number [id number] Mode AutoSet Min Pressure 5 cmH2O Max [...] RESPIRATORY THERAPIST Signed: 12/03/2023 14:40 CURTIS PUCKETT [place]
--- OUTSIDE RECORDS SUMMARY | 2024-03-21 08:14 | XMS_ITS | Encounter Summary ---
Author Name [place] Address [address] [place] [address] Care Team Providers Care Parts Administrator Name Role Phone LEN MENDOZA Primary Care [...] PART B Sep 23, 2014 PART B [id number] HARMONY MCCALL JR PATIENT MEDICARE (WNR) MEDICARE (M) PART A July 25, 2007 PART A [id number] [id number] HARMONY MCCALL JR PATIENT MEDICARE (WNR) MEDICARE (M) PART B July 25, 2007 PART B [id number] [id number] HARMONY MCCALL JR PATIENT MEDICARE (WNR) MEDICARE (M) PART A July 25, 2007 PART A [id number] HARMONY MCCALL JR PATIENT [facility] MEDICAL EXPENSE (OPT/PROF ) [facility] [place] * Jan 24, 2015 [id number] 18 CAROLE MCCALL SPOUSE Selected Encounter This section includes the information on record at [place] for the Encounter. Date/Time Encounter Type Encounter Description Reason Provider Source Dec 17, 2023 07:30 AM EXERCISE CLASS HEALTH/WELLBEING [facility] ICD-10-CM Z72.3 Lack of physical exercise JANIE LAZCANO IHErin Encounter Template Text not used by [place] Assessments - Encounter Diagnoses This section includes the primary and secondary diagnoses documented for the Encounter. Date/Time Primary/Secondary Diagnosis Diagnosis Name Provider Source Dec 17, 2023 10:26 AM PRIMARY Lack of physical exercise DAMON ONEILL [place] [facility] [place] [facility] Plan of Treatment: Future Appointments [...] AMBULATORY - NONE [facility] [place] [facility] Dec 27, 2023 11:00 AM AMBULATORY - NONE [place] Jan 03, 2024 11:00 AM AMBULATORY - NONE [place] Jan 08, 2024 10:00 AM AMBULATORY - NONE [facility] [place] [place] [facility] Jan 10, 2024 11:00 AM AMBULATORY - NONE [place] Jan 17, 2024 11:00 AM AMBULATORY - NONE [place] Jan 21, 2024 11:00 AM AMBULATORY - MEDICINE [facility] [place] [facility] Jan 22, 2024 11:00 AM AMBULATORY - MEDICINE [place] [facility] Jan 22, 2024 11:00 AM AMBULATORY - NONE [facility] [facility] Jan 24, 2024 11:00 AM AMBULATORY - NONE [place] Jan 31, 2024 11:00 AM AMBULATORY - NONE [place] Feb 07, 2024 11:00 AM AMBULATORY - NONE [place] Feb 14, 2024 11:00 AM AMBULATORY - NONE [place] Feb 26, 2024 08:30 AM AMBULATORY - NONE [facility] Feb 26, 2024 08:30 AM AMBULATORY - MEDICINE [facility] [place] [facility] Feb 28, 2024 11:00 AM AM[facility]ORY [place]ONE [place] Mar 06, 2024 11:00 AM [facility] Mar 13, 2024 11:00 AM [facility] Active, Pending, and Scheduled Orders This section [...] PANEL (non-fasting) BLOOD (SST-SERUM) [facility] Jan 10, 2024 12:00 AM Laboratory - Chemi stry Order LIPID PANEL, NON FASTING BLOOD (SST-SERUM) [facility] Jan 10, 2024 12:00 AM Laboratory - Chemi stry Order LIVER FUNCTION BLOOD (SST-SERUM) [facility] Jan 10, 2024 12:00 AM Laboratory - Chemi stry Order CBC BLOOD (LAV-BLOOD) [facility] Jan 10, 2024 12:00 AM Laboratory - Chemi stry Order FERRITIN BLOOD (SST-SERUM) [facility] Jan 10, 2024 12:00 AM Laboratory - Chemi stry Order TSH BLOOD (SST-SERUM) [facility] Jan 10, 2024 12:00 AM Laboratory - Chemi stry Order VITAMIN B12 BLOOD (SST-SERUM) [facility] Jan 10, 2024 12:00 AM Laboratory - Chemi stry Order IRON & TIBC PANEL BLOOD (SST-SERUM) [facility] Social History: Smoking Status (Most current) [...] PM VA-TOBACCO FORMER USER [place] [facility] [place] [facility] Tobacco Use History This section includes a history of the smoking, or tobacco-related health factors, that were collected on or before the date of the Encounter. The data comes from the [place] facility where the Encounter took place. Date/Time Smoking Status/Tobacco Use Comment F acility Jan 26, 2023 01:30 PM VA-TOBACCO QUIT 15 YRS OR MORE [place] [facility] [facility] Jan 27, 2022 11:00 AM VA-TOBACCO FORMER USER [place] [facility] [facility] Jan 27, 2022 11:00 AM VA-TOBACCO QUIT 15 YRS OR MORE [place] [facility] [facility] Sep 17, 2020 09:00 AM VA-TOBACCO FORMER USER [place] [facility] [place] [facility] Sep 17, 2020 09:00 AM VA-TOBACCO QUIT 15 YRS OR MORE [place] [facility] [facility] Jun 04, 2019 02:57 PM VA-TOBACCO NEVER USED [place] [facility] [facility] Mar 14, 2018 11:23 AM VA-TOBACCO FORMER USER [facility] [place] [facility] Mar 14, 2018 11:23 AM VA-TOBACCO QUIT 15 YRS OR MORE [facility] [place] [facility] Apr 04, 2017 12:30 PM QUIT TOBACCO USE > 7 YEARS AGO [facility] [place] [facility] Apr 05, 2016 01:02 PM QUIT TOBACCO USE > 7 YEARS AGO quit in 1984 [place] [facility] [place] [facility] Encounter Notes: All associated encounter notes This section contains the clinical notes associated to the Encounter. Date/Time Encounter Note(s) Provider Source Dec 17, 2023 10:23 AM GERIATRIC MEDICINE NOTE: LOCAL TITLE: GEROFIT VCM/VVC/VOD TELEHEALTH SUPERVISED EXERCISE STANDARD TITLE: GERIATRIC MEDICINE NOTE DATE OF NOTE: DEC 17, 2023@10:23 ENTRY DATE: DEC 17, 2023@10:23:55 AUTHOR: DOUG ONEILL COSIGNER: URGENCY: STATUS: COMPLETED GEROFIT VVC/VCM/VOD Telehealth Supervised Exercise NOTE [place] Provided informed consent to receive treatment via Telehealth., mailed and has been made verbally aware of Telehealth Group [place] practices. 's Location: address on record unless specified below. Emergency Contact: on record unless specified below. participated remotely in the Gerofit exercise program today through [place] Virtual Tar Kettle Runner. Activities were focused on progression of their [...] whole health concerns. /johanny/ VIOLETTA FINK LICENSE AQUATIC ECOLOGIST Signed: 12/17/2023 10:34 DOUG ONEILL [place] [facility]
--- OUTSIDE RECORDS SUMMARY | 2024-03-21 08:14 | XMS_ITS | Encounter Summary ---
Author Name [facility] [place] Address [address] [place] [address] Care Team Providers Care Narrow Fabric Calenderer Name Role Phone LEN MENDOZA Primary Care [...] PART B Sep 23, 2014 PART B [id number] [id number] HARMONY MCCALL JR PATIENT MEDICARE (WNR) MEDICARE (M) PART A July 25, 2007 PART A [id number] [id number] HARMONY MCCALL JR PATIENT MEDICARE (WNR) MEDICARE (M) PART B July 25, 2007 PART B [id number] [id number] HARMONY MCCALL JR PATIENT MEDICARE (WNR) MEDICARE (M) PART A July 25, 2007 PART A [id number] [id number] [phone] [id number] HARMONY MCCALL JR PATIENT [facility] MEDICAL EXPENSE (OPT/PROF ) [facility] [place] * Jan 24, 2015 [id number] 18 CAROLE MCCALL SPOUSE Selected Encounter This section includes the information on record at [place] for the Encounter. Date/Time Encounter Type Encounter Description Reason Provider Source Jan 03, 2024 11:00 AM HLTH BHV IVNTJ GRP EA ADDL WEIGHT MGMT & MOVE! PROG - GRP ICD-10-CM Z68.30 Body mass index [BMI] 30.0-30.9, adult GORDON PATHAK [facility] Encounter Template Text not used by [place] Assessments - Encounter Diagnoses This section includes the primary and secondary diagnoses documented for the Encounter. Date/Time Primary/Secondary Diagnosis Diagnosis Name Provider Source Jan 03, 2024 05:49 PM PRIMARY Body mass index [BMI] 30.0-30.9, adult GORDON PATHAK [place] Jan 03, 2024 05:49 PM SECONDARY Other obesity due to excess calories GORDON PATHAK [place] Plan of Treatment: Future Appointments (+ 6 [...] - NONE [facility] [place] [facility] Jan 10, 2024 11:00 AM AMBULATORY - NONE [place] Jan 17, 2024 11:00 AM AMBULATORY - NONE [place] Jan 21, 2024 11:00 AM AMBULATORY - MEDICINE [facility] [place] [facility] Jan 22, 2024 11:00 AM AMBULATORY - MEDICINE [facility] [place] [facility] Jan 22, 2024 11:00 AM AMBULATORY - NONE [facility] [place] [facility] Jan 24, 2024 11:00 AM AMBULATORY [...] 08:30 AM AMBULATORY - MEDICINE [place] [facility] Feb 28, 2024 11:00 AM AMBULATORY - NONE [place] Mar 06, 2024 11:00 AM AMBULATORY - NONE [place] Mar 13, 2024 11:00 AM AMBULATORY - NONE [place] Active, Pending, and Scheduled Orders This [...] - Chemi stry Order [facility] Jan 10, 2024 12:00 AM Laboratory - Chemi stry Order BASIC METABOLIC PANEL (non-fasting) BLOOD (SST-SERUM) [facility] Jan 10, 2024 12:00 AM Laboratory - Chemi stry Order LIPID PANEL, NON FASTING BLOOD (SST-SERUM) [facility] Jan 10, 2024 12:00 AM Laboratory - Chemi stry Order LIVER FUNCTION BLOOD (SST-SERUM) [facility] Jan 10, 2024 12:00 AM Laboratory - Chemi stry Order TSH BLOOD (SST-SERUM) [facility] Jan 10, 2024 12:00 AM Laboratory - Chemi stry Order FERRITIN BLOOD (SST-SERUM) [facility] Jan 10, 2024 12:00 AM Laboratory - Chemi stry Order VITAMIN B12 BLOOD (SST-SERUM) [facility] Jan 10, 2024 12:00 AM Laboratory - Chemi stry Order IRON & TIBC PANEL BLOOD (SST-SERUM) [facility] Vital Signs: All taken on [...] AUTHOR: GORDON PATHAK COSIGNER: URGENCY: STATUS: COMPLETED [place] participated in MOVE! Group Counseling via [facility] on January 03, 2024. The [place] was provided with information on [place] and has given verbal consent to use group VVC services for their healthcare. The copy of the Group Telehealth Agreement has been mailed to the [place]. The Veterans location/emergency contact number were confirmed. The Emergency Call Relay Center (E911) was available. The visit was locked for security and privacy. identified with 2 identifiers: [ ] Full Name [ ] Address Veterans attended the [facility] MOVE! group session on this date. MOVE! is a program designed to provide education about weight management skills to overweight and obese Veterans. Group members combined to lose 2.7 pounds since their last attended group. Group members began today's discussion picking up on the theme from last week's group concerning the amount of screen time in which they typically engage. One challenged himself with calculating how many hours [...] such experiments produced weight loss. The next [facility] MOVE! group meeting will be held on December @ 11:00am. [place]'s reported weight was 211.1 lbs. and lost 0.3 pounds since last group attended. Dx: Obesity d/t Excess Calories Obesity E66.09 BMI 30.0-30.9 The session lasted for 1 hour in duration. /johanny/ GORDON PATHAK, Ph.D. CLINICAL PSYCHOLOGIST Signed: 01/03/2024 17:54 Receipt Acknowledged By: 01/08/2024 08:04 /johanny/ SANTIAGO KRAMER STAFF DIETITIAN GORDON PATHAK
--- OUTSIDE RECORDS SUMMARY | 2024-03-21 08:14 | XMS_ITS | Encounter Summary ---
Author Name [facility] [place] Address [address] [place] [address] Care Team Providers Care Senior Svp Name Role Phone LEN MENDOZA Primary Care [...] PART B Sep 23, 2014 PART B [id number] [id number] HARMONY MCCALL JR PATIENT MEDICARE (WNR) MEDICARE (M) PART A July 25, 2007 PART A [id number] [id number] HARMONY MCCALL JR PATIENT MEDICARE (WNR) MEDICARE (M) PART B July 25, 2007 PART B [id number] [phone] HARMONY MCCALL JR PATIENT MEDICARE (WNR) MEDICARE (M) PART A July 25, 2007 PART A [id number] [id number] HARMONY MCCALL JR [facility]IENT [facility] ([facility]PROF ) [facility] [place] * Jan 24, 2015 [id number] 18 CAROLE MCCALL SPOUSE Selected Encounter This section includes the information on record at [place] for the Encounter. Date/Time Encounter Type Encounter Description Reason Provider Source Dec 27, 2023 11:00 AM GROUP BEHAVE COUNS 2-10 WEIGHT MGMT & MOVE! PROG - GRP ICD-10-CM E66.09 Other obesity due to excess calories MGIUEL KRAMER Erin Encounter Template Text not used by [place] Assessments - Encounter Diagnoses This section includes the primary and secondary diagnoses documented for the Encounter. Date/Time Primary/Secondary Diagnosis Diagnosis Name Provider Source Dec 28, 2023 09:09 AM PRIMARY Other obesity due to excess calories SANTIAGO KRAMER Dec 28, 2023 09:09 AM SECONDARY Body mass index [BMI] 30.0-30.9, [...] Appointment Type Appointme nt Facility Name Jan 03, 2024 11:00 AM AMBULATORY - NONE [place] Jan 08, 2024 10:00 AM AMBULATORY - NONE [place] [facility] [place] [facility] Jan 10, 2024 11:00 AM AMBULATORY - NONE [place] Jan 17, 2024 11:00 AM AMBULATORY - NONE [place] Jan 21, 2024 11:00 AM AMBULATORY - MEDICINE [facility] [place] [facility] Jan 22, 2024 11:00 AM AMBULATORY - MEDICINE [facility] Jan 22, 2024 11:00 AM AMBULATORY - NONE [place] [facility] [place] [facility] Jan 24, 2024 11:00 AM AMBULATORY - NONE [place] Jan 31, 2024 11:00 AM AMBULATORY - NONE [place] Feb 07, 2024 11:00 AM AMBULATORY - NONE [place] Feb 14, 2024 11:00 AM AMBULATORY - NONE [place] Feb 26, 2024 08:30 AM AMBULATORY - NONE [facility] Feb 26, 2024 08:30 AM AMBULATORY - MEDICINE [facility] Feb 28, 2024 11:00 AM [...] of theEncounter. The data comes from all [place] treatment facilities. Test Date/Time Test Type Test Details Facility Name Jan 10, 2024 12:00 AM Laboratory - Chemi stry Order CBC BLOOD (LAV-BLOOD) [facility]L [facility] Jan 10, 2024 12:00 AM Laboratory - Chemi stry Order LIPID PANEL, NON FASTING BLOOD (SST-SERUM) [facility] Jan 10, 2024 12:00 AM Laboratory - Chemi stry Order TSH BLOOD (SST-SERUM) [facility] CNTRL WSN [facility] Jan 10, 2024 12:00 AM Laboratory - Chemi stry Order LIVER FUNCTION BLOOD (SST-SERUM) [facility] Jan 10, 2024 12:00 AM Laboratory - Chemi stry Order BASIC METABOLIC PANEL (non-fasting) BLOOD (SST-SERUM) [facility] Jan 10, 2024 12:00 AM Laboratory - Chemi stry Order FERRITIN BLOOD (SST-SERUM) [facility] Jan 10, 2024 12:00 AM Laboratory - Chemi stry Order VITAMIN B12 BLOOD (SST-SERUM) [facility] CNTRL WSN [facility] Jan 10, 2024 12:00 AM Laboratory - Chemi stry Order IRON & TIBC PANEL BLOOD (SST-SERUM) [facility] Vital Signs: All taken on the encounter date This section contains inpatient and outpatient Vital Signs collected on the date of the Encounter. Date/Time Temperature Pulse Blood Pressure Respiratory Rate SP02 Pain Height Weight Body Mass Index Source Dec 27, 2023 11:38 AM 211.4 32 [place] Encounter Notes: All associated encounter notes This section contains the clinical notes associated to the Encounter. Date/Time Encounter Note(s) Provider Source Dec 27, 2023 11:00 AM MOVE NOTE: LOCAL TITLE: WEIGHT MANAGEMENT/MOVE! OUTPATIENT GROUP NOTE STANDARD TITLE: MOVE NOTE DATE OF NOTE: DEC 27, 2023@11:00 ENTRY DATE: DEC 28, 2023@08:57:53 AUTHOR: SANTIAGO KRAMER COSIGNER: URGENCY: STATUS: COMPLETED [place] participated in MOVE! Group Counseling via [facility] on December 27, 2023. The was provided with information on [facility] and has given verbal consent to use group VV services for their healthcare. The copy of the Group Telehealth Agreement has been mailed to the [place]. The Veterans location/emergency contact number were confirmed. The Emergency Call Relay Center (E911) was available. The visit was locked for security and privacy. [place] identified with 2 identifiers: [ ] Full Name [ ] Address Veterans attended the [facility] MOVE! group session on this date. MOVE! is a program designed to provide education about weight management skills to overweight and obese Veterans. Group members combined to gain 6.2 pounds since their last attended group. Group members began today's discussion expressing concern that their collective weight has been trending up in the last several months and further concern about their difficulty stopping snacking at night. Faciliators led a discussion on finding the triggers that caused them to snack. Group members identified watching tv, tired and bored as being arcelia triggers of snacking. Facilitators challenged group members to keep track of their screen time over next week. Some group members were willing to keep track of it. The next [facility] MOVE! group meeting will be held on December @ 11:00am. 's reported weight was 210.5 lbs. and gained 0.4 pounds since last group attended. Dx: Obesity d/t Excess Calories Obesity E66.09 BMI 30.0-30.9 The session lasted for 1 hour in duration. 's reported weight was 211.4 lbs. and gained 0.9 pounds since last group attended. Dx: E66.09 z68.30 The session lasted for 1 hour in duration. /johanny/ SANTIAGO KRAMER STAFF DIETITIAN Signed: 12/28/2023 09:13 Receipt Acknowledged By: 01/03/2024 10:53 /johanny/ GORDON PATHAK, Ph.D. CLINICAL PSYCHOLOGIST SANTIAGO KRAMERFIELD
--- OUTSIDE RECORDS SUMMARY | 2024-03-21 08:14 | XMS_ITS | Encounter Summary ---
Author Name [facility] [place] Address [address] [place] [address] Care Team Providers Care Department Store Manager Name Role Phone LEN MENDOZA Primary [...] PART B Sep 23, 2014 PART B [id number] HARMONY MCCALL JR PATIENT MEDICARE (WNR) MEDICARE (M) PART A July 25, 2007 PART A [id number] HARMONY MCCALL JR PATIENT MEDICARE (WNR) MEDICARE (M) PART B July 25, 2007 PART B [id number] [id number] HARMONY MCCALL JR PATIENT MEDICARE (WNR) MEDICARE (M) PART A July 25, 2007 PART A [id number] HARMONY MCCALL JR PATIENT [facility] (OPT/PROF ) [facility] * Jan 24, 2015 [id number] CAROLE MCCALL SPOUSE Selected Encounter This [...] PRIMARY Dietary counseling and surveillance CURTIS GRACIA [facility] Plan of Treatment: Future Appointments [...] 21, 2024 11:00 AM AMBULATORY - MEDICINE [facility] Jan 22, 2024 11:00 AM AMBULATORY - MEDICINE [facility] Jan 22, 2024 11:00 AM AMBULATORY - NONE [facility] Jan 24, 2024 11:00 AM AMBULATORY - NONE [place] Jan 31, 2024 11:00 AM AMBULATORY - NONE [place] Feb 07, 2024 11:00 AM AMBULATORY - NONE [place] Feb 14, 2024 11:00 AM AMBULATORY - NONE [place] Feb 26, 2024 08:30 AM [facility] Feb 26, 2024 08:30 AM [facility] [place] [place] [facility] Feb 28, 2024 11:00 AM AMBULATORY - NONE [place] Mar 06, 2024 11:00 AM AMBULATORY - NONE [place] Mar 13, 2024 11:00 AM AMBULATORY - NONE [place] Active, Pending, and Scheduled Orders This section includes a listing of several types of active, pending, and scheduled orders, including clinic medications orders, diagnostic test orders, procedure orders and consult orders; where the start date of the order is 45 days before the date of the Encounter or 45 days after the date of theEncounter. The data comes from all [facility] facilities. Test Date/Time Test Type Test Details Facility Name Jan 10, 2024 12:00 AM Laboratory - Chemi stry Order CBC BLOOD (LAV-BLOOD) [facility] Jan 10, 2024 12:00 AM Laboratory - Chemi stry Order LIPID PANEL, NON FASTING BLOOD (SST-SERUM) [facility] Jan 10, 2024 12:00 AM Laboratory - Chemi stry Order LIVER FUNCTION BLOOD (SST-SERUM) [facility] Jan 10, 2024 12:00 AM Laboratory - Chemi stry Order TSH BLOOD (SST-SERUM) [facility] Jan 10, 2024 12:00 AM Laboratory - Chemi stry Order FERRITIN BLOOD (SST-SERUM) [facility] Jan 10, 2024 12:00 AM Laboratory - Chemi stry Order BASIC METABOLIC PANEL (non-fasting) BLOOD (SST-SERUM) [facility] Jan 10, 2024 12:00 AM Laboratory - Chemi stry Order VITAMIN B12 BLOOD (SST-SERUM) [facility] Jan 10, 2024 12:00 AM Laboratory - Chemi stry Order IRON & TIBC PANEL BLOOD (SST-SERUM) [facility] Social History: Smoking Status (Most current) and [...] VA-TOBACCO FORMER USER [place] [facility] [place] [facility] Tobacco Use History This section includes a history of the smoking, or tobacco-related health factors, that were collected on or before the date of the Encounter. The data comes from the [place] facility where the Encounter took place. Date/Time Smoking Status/Tobacco Use Comment F acility Jan 26, 2023 01:30 PM VA-TOBACCO QUIT 15 YRS OR MORE [place] [facility] [place] [facility] Jan 27, 2022 11:00 AM VA-TOBACCO FORMER USER [place] [facility] [place] [facility] Jan 27, 2022 11:00 AM VA-TOBACCO QUIT 15 YRS OR MORE [place] [facility] [place] [facility] Sep 17, 2020 09:00 AM VA-TOBACCO FORMER USER [place] [facility] [place] [facility] Sep 17, 2020 09:00 AM VA-TOBACCO QUIT 15 YRS OR MORE [place] [facility] [place] [facility] Jun 04, 2019 02:57 PM VA-TOBACCO NEVER USED [place] [facility] [place] [facility] Mar 14, 2018 11:23 AM VA-TOBACCO FORMER USER [place] [facility] [place] [facility] Mar 14, 2018 11:23 AM VA-TOBACCO QUIT 15 YRS OR MORE [place] [facility] [place] [facility] Apr 04, 2017 12:30 PM QUIT TOBACCO USE > 7 YEARS AGO [place] [facility] [place] [facility] Apr 05, 2016 01:02 PM QUIT TOBACCO USE > 7 YEARS AGO quit in 1984 [place] [facility] [place] [facility] Encounter Notes: All associated encounter [...] in HTK via [facility] on: 01/08/24. The [place] was provided with information on [facility] and has given verbal consent to use group [facility] services for their healthcare. The copy of the Group Telehealth Agreement has been mailed to the . The 's location/emergency contact number were confirmed. The Emergency Call Relay Center (E911) was available. The visit was locked for security and privacy. [place] identified with 2 identifiers: [x] Full Name [x] Address This class was taught by one Registered Dietitian with one co-host dietitian Dx: Z71.3 Time Spent: 60 minutes Participants: 13 Veterans, 2 collaterals Nutrition Education Topics: Intro to [facility] HTK, Nutrient content of recipe ingredients Cooking demonstration: Felipe Pumpkin Pasta with [place] Sausage, Savory Roasted Devine Squash Veterans attended the 78th class of the [facility] Healthy Teaching Kitchen. Today we went over the Group Telehealth Agreement, how HTK via [facility] works, food safety, knife safety, [...] Staff Dietitian Signed: 01/08/2024 12:47 CURTIS GRACIA [place] [facility]
--- OUTSIDE RECORDS SUMMARY | 2024-03-21 08:14 | XMS_ITS ---
Author Name [facility] [place] Organization [place] Address [address] [place] [address] Care Team Providers Care Rural Mail Carrier Name Role Phone LEN MENDOZA Primary [...] PART B Sep 23, 2014 PART B [id number] [id number] HARMONY MCCALL JR PATIENT MEDICARE (WNR) MEDICARE (M) PART A July 25, 2007 PART A [id number] [id number] HARMONY MCCALL JR PATIENT MEDICARE (WNR) MEDICARE (M) PART B July 25, 2007 PART B [id number] [phone] HARMONY MCCALL JR PATIENT MEDICARE (WNR) MEDICARE (M) PART A July 25, 2007 PART A [id number] HARMONY MCCALL JR PATIENT [facility] MEDICAL EXPENSE (OPT/PROF ) [facility] * Jan 24, 2015 [id number] CAROLE MCCALL SPOUSE Selected Encounter This section includes the information on record at [place] for the Encounter. Date/Time Encounter Type Encounter Description Reason Provider Source Dec 25, 2023 10:00 AM PT EDUCATION NOC GROUP NUTRITION/DIETETI CS-GROUP ICD-10-CM Z71.3 Dietary counseling and surveillance CURTIS GRACIA [place] Encounter Template Text not used by [place] Assessments - Encounter Diagnoses This section includes the primary and secondary diagnoses documented for the Encounter. Date/Time Primary/Secondary Diagnosis Diagnosis Name Provider Source Dec 25, 2023 12:57 PM PRIMARY Dietary counseling and surveillance CURTIS GRACIA [facility] Plan of Treatment: Future Appointments (+ [...] 08, 2024 10:00 AM AMBULATORY - NONE [place] [facility] [place] [place] [facility] Jan 10, 2024 11:00 AM AMBULATORY - NONE [place] Jan 17, 2024 11:00 AM AMBULATORY - NONE [place] Jan 21, 2024 11:00 AM AMBULATORY - MEDICINE [place] [facility] [place] [facility] Jan 22, 2024 11:00 AM AMBULATORY - MEDICINE [facility] [place] Jan 22, 2024 11:00 AM AMBULATORY - NONE [place] [facility] [place] [facility] Jan 24, 2024 11:00 AM AMBULATORY - NONE [place] Jan 31, 2024 11:00 AM AMBULATORY - NONE [place] Feb 07, 2024 11:00 AM AMBULATORY - NONE [place] Feb 14, 2024 11:00 AM AMBULATORY - NONE [place] Feb 26, 2024 08:30 AM [facility] Feb 26, 2024 08:30 AM [facility] - [place]IC[place] [facility] Feb 28, 2024 11:00 AM [...] of theEncounter. The data comes from all [facility] facilities. Test Date/Time Test Type Test Details Facility Name Jan 10, 2024 12:00 AM Laboratory - Chemi stry Order BASIC METABOLIC PANEL (non-fasting) BLOOD (SST-SERUM) [facility] Jan 10, 2024 12:00 AM Laboratory - Chemi stry Order LIPID PANEL, NON FASTING BLOOD (SST-SERUM) [facility] Jan 10, 2024 12:00 AM Laboratory - Chemi stry Order LIVER FUNCTION BLOOD (SST-SERUM) [facility] Jan 10, 2024 12:00 AM Laboratory - Chemi stry Order CBC BLOOD (LAV-BLOOD) [facility] Jan 10, 2024 12:00 AM Laboratory - Chemi stry Order FERRITIN BLOOD (SST-SERUM) [facility] Jan 10, 2024 12:00 AM Laboratory - Chemi stry Order TSH BLOOD (SST-SERUM) [facility] Jan 10, 2024 12:00 AM Laboratory - Chemi stry Order VITAMIN B12 BLOOD (SST-SERUM) [facility] Jan 10, 2024 12:00 AM Laboratory - Chemi stry Order IRON & TIBC PANEL BLOOD (SST-SERUM) [facility] Social History: Smoking Status (Most current) and [...] 26, 2023 01:30 PM VA-TOBACCO FORMER USER [place] [facility] [place] [facility] Tobacco Use History This section includes a history of the smoking, or tobacco-related health factors, that were collected on or before the date of the Encounter. The data comes from the [place] facility where the Encounter took place. Date/Time Smoking Status/Tobacco Use Comment [place] Jan 26, 2023 01:30 PM VA-TOBACCO QUIT 15 YRS OR MORE [place] [facility] [place] [facility] Jan 27, 2022 11:00 AM VA-TOBACCO FORMER USER [place] [facility] [place] [facility] Jan 27, 2022 11:00 AM VA-TOBACCO QUIT 15 YRS OR MORE [place] [facility] [place] [facility] Sep 17, 2020 09:00 AM VA-TOBACCO FORMER USER [place] [facility] [facility] Sep 17, 2020 09:00 AM VA-TOBACCO QUIT 15 YRS OR MORE [place] [facility] [place] [facility] Jun 04, 2019 02:57 PM VA-TOBACCO NEVER USED [place] [facility] [place] [facility] Mar 14, 2018 11:23 AM VA-TOBACCO FORMER USER [place] [facility] [place] [facility] Mar 14, 2018 11:23 AM VA-TOBACCO QUIT 15 YRS OR MORE [place] [facility] [place] [place] [facility] Apr 04, 2017 12:30 PM QUIT TOBACCO USE > 7 YEARS AGO [place] [facility] [place] [facility] Apr 05, 2016 01:02 PM QUIT TOBACCO USE > 7 YEARS AGO quit in 1984 [place] [facility] [place] [facility] Encounter Notes: All associated [...] STATUS: COMPLETED Veterans participated in HTK via [facility] on: 12/25/23. The [place] was provided with information on [facility] and has given verbal consent to use group [facility] services for their healthcare. The copy of the Group Telehealth Agreement has been mailed to the [place]. The 's location/emergency contact number were confirmed. The Emergency Call Relay Center (E911) was available. The visit was locked for security and privacy. [place] identified with 2 identifiers: [x] Full Name [x] Address This class was taught by one Registered Dietitian with one co-host dietitian Dx: Z71.3 Time Spent: 60 minutes Participants: 8 Veterans, 1 collaterals Nutrition Education Topics: Intro to [facility] HTK, Nutrient content of recipe ingredients Cooking demonstration: Slow Cooker Apple Sauce or Apple Butter, Pecan Apple Chickpea Salad, Homemade Fish Sticks Veterans attended the 77th class of the [facility] Healthy Teaching Kitchen. Today we went over the Group Telehealth Agreement, how HTK via [facility] works, food safety, knife safety, and [...] GRACIA, MS, RDN, LDN Staff Dietitian Signed: 12/25/2023 12:58 [facility]ACIA [facility]
--- OUTSIDE RECORDS SUMMARY | 2024-03-21 08:14 | XMS_ITS | Encounter Summary ---
Author Name [facility] [place] Address [address] [place] [id number] Care Team Providers Care Correspondence Representative Name Role Phone LEN MENDOZA Primary [...] PART B Sep 23, 2014 PART B [id number] [id number] HARMONY MCCALL JR PATIENT MEDICARE (WNR) MEDICARE (M) PART A July 25, 2007 PART A [id number] [id number] HARMONY MCCALL JR PATIENT MEDICARE (WNR) MEDICARE (M) PART B July 25, 2007 PART B [id number] [id number] HARMONY MCCALL JR PATIENT MEDICARE (WNR) MEDICARE (M) PART A July 25, 2007 PART A [id number] [id number] HARMONY MCCALL JR PATIENT [facility] MEDICAL EXPENSE (OPT/PROF ) [facility] * Jan 24, 2015 [id number] CAROLE MCCALL SPOUSE Selected Encounter This section includes the information on record at [place] for the Encounter. Date/Time Encounter Type Encounter Description Reason Provider Source Jan 17, 2024 11:00 AM HLTH BHV IVNTJ GRP EA ADDL WEIGHT MGMT & MOVE! PROG - GRP ICD-10-CM Z68.30 Body mass index [BMI] 30.0-30.9, adult GORDON PATHAK [facility] Encounter Template Text not used by [place] Assessments - Encounter Diagnoses This section includes the primary and secondary diagnoses documented for the Encounter. Date/Time Primary/Secondary Diagnosis Diagnosis Name Provider Source Jan 18, 2024 02:54 PM PRIMARY Body mass index [BMI] 30.0-30.9, adult GORDON PATHAK Jan 18, 2024 02:54 PM SECONDARY Obesity, class 1 GORDON PATHAK [...] Appointment Type Appointme nt Facility Name Jan 21, 2024 11:00 AM [facility] Jan 22, 2024 11:00 AM AMBULATORY - MEDICINE [facility] [place] Jan 22, 2024 11:00 AM AMBULATORY - NONE [facility] Jan 24, 2024 11:00 AM AMBULATORY - NONE [place] Jan 31, 2024 11:00 AM AMBULATORY - NONE [place] Feb 07, 2024 11:00 AM AMBULATORY - NONE [place] Feb 14, 2024 11:00 AM AMBULATORY - NONE [place] Feb 26, 2024 08:30 AM AM[facility]UL[facility]ORY - NONE [facility] Feb 26, 2024 08:30 AM [facility] [place]IC[facility] [place] [facility] Feb 28, 2024 11:00 AM AMBULATORY - [...] of theEncounter. The data comes from all [facility] facilities. Test Date/Time Test Type Test Details Facility Name Jan 10, 2024 12:00 AM Laboratory - Chemi stry Order CBC BLOOD (LAV-BLOOD) [facility] Jan 10, 2024 12:00 AM Laboratory - Chemi stry Order LIPID PANEL, NON FASTING BLOOD (SST-SERUM) [facility] Jan 10, 2024 12:00 AM Laboratory - Chemi stry Order TSH BLOOD (SST-SERUM) [facility] Jan 10, 2024 12:00 AM Laboratory - Chemi stry Order LIVER FUNCTION BLOOD (SST-SERUM) [facility] Jan 10, 2024 12:00 AM Laboratory - Chemi stry Order BASIC METABOLIC PANEL (non-fasting) BLOOD (SST-SERUM) [facility] Jan 10, 2024 12:00 AM Laboratory - Chemi stry Order FERRITIN BLOOD (SST-SERUM) [facility] Jan 10, 2024 12:00 AM Laboratory - Chemi stry Order VITAMIN B12 BLOOD (SST-SERUM) [facility] Jan 10, 2024 12:00 AM Laboratory - Chemi stry Order IRON & TIBC PANEL BLOOD (SST-SERUM) [facility] Vital Signs: All taken on the encounter date This section contains inpatient and outpatient Vital Signs collected on the date of the Encounter. Date/Time Temperature Pulse Blood Pressure Respiratory Rate SP02 Pain Height Weight Body Mass Index Source Jan 17, 2024 11:32 AM 212 32 [place] Encounter Notes: All associated encounter notes This section contains the clinical notes associated to the Encounter. Date/Time Encounter Note(s) Provider Source Jan 18, 2024 02:43 PM MOVE NOTE: LOCAL TITLE: WEIGHT MANAGEMENT/MOVE! OUTPATIENT GROUP NOTE STANDARD TITLE: MOVE NOTE DATE OF NOTE: JAN 18, 2024@14:43 ENTRY DATE: JAN 18, 2024@14:43:34 AUTHOR: GORDON PATHAK COSIGNER: URGENCY: STATUS: COMPLETED [place] participated in MOVE! Group Counseling via [facility] on January 17, 2024. The was provided with information on [facility] and has given verbal consent [...] Name [ ] Address Veterans attended the [facility] MOVE! group session on this date. MOVE! is a program designed to provide education about weight management skills to overweight and obese Veterans. Group members combined to gain 9.9 pounds since their last attended group. Group members began today's discussion talking about how overconsumption of Yellow-Light foods can result in weight gain much like eating small quantities of Red-Light foods. Veterans took turns sharing their most enjoyable foods with the group and how they have been prone to giving into temptation recently. The group was somewhat concerned that as a result they continued to experience an uptick in weight. This has been a theme throughout the 2023 year and this week was no exception. Veterans talked about concern going into the holiday season and specifically mentioned consuming large amounts of chocolate next week during the season. Veterans are not sure how to reverse this disturbing trend and plan to discuss this further next week. The next [facility] MOVE! group meeting will be held on December @ 11:00am. [place]'s reported weight was 212.0 lbs. and gained 2.0 pounds since last group attended. Dx: Obesity Class 1 BMI 30.0-30.9 The session lasted for 1 hour in duration. /johanny/ GORDON PATHAK, Ph.D. CLINICAL PSYCHOLOGIST Signed: 01/18/2024 15:03 Receipt Acknowledged By: 01/22/2024 09:42 /johanny/ SANTIAGO KRAMER STAFF DIETITIAN GORDON PATHAK
--- OUTSIDE RECORDS SUMMARY | 2024-03-21 08:14 | XMS_ITS | Encounter Summary ---
Author Name [facility] [place] Organization [facility] [place] Address [address] [place] [address] Care Team Providers Care Consultant Education Name Role Phone LEN MENDOZA Primary Care [...] PART B Sep 23, 2014 PART B [id number] [phone] 4 HARMONY MCCALL JR PATIENT MEDICARE (WNR) MEDICARE (M) PART A July 25, 2007 PART A [id number] [id number] HARMONY MCCALL JR PATIENT MEDICARE (WNR) MEDICARE (M) PART B July 25, 2007 PART B [id number] [id number] HARMONY MCCALL JR PATIENT MEDICARE (WNR) MEDICARE (M) PART A July 25, 2007 PART A [id number] [id number] HARMONY MCCALL JR PATIENT [facility] MEDICAL EXPENSE (OPT/PROF ) [facility] * Jan 24, 2015 [id number] CAROLE MCCALL SPOUSE Selected Encounter This [...] 21, 2024 11:00 AM AMBULATORY [facility] Jan 22, 2024 11:00 AM AMBULATORY - MEDICINE [facility] Jan 22, 2024 11:00 AM AMBULATORY - NONE [facility] Jan 24, 2024 11:00 AM AMBULATORY - NONE [place] Jan 31, 2024 11:00 AM AMBULATORY - NONE [place] Feb 07, 2024 11:00 AM AMBULATORY - NONE [place] Feb 14, 2024 11:00 AM AMBULATORY - NONE [place] Feb 26, 2024 08:30 AM AM[facility]UL[facility]ORY - NONE [facility] Feb 26, 2024 08:30 AM [facility] Feb 28, 2024 11:00 AM AMBULATORY - [...] of theEncounter. The data comes from all [facility] facilities. Test Date/Time Test Type Test Details Facility Name Jan 10, 2024 12:00 AM Laboratory - Chemi stry Order CBC BLOOD (LAV-BLOOD) [facility] Jan 10, 2024 12:00 AM Laboratory - Chemi stry Order BASIC METABOLIC PANEL (non-fasting) BLOOD (SST-SERUM) [facility] Jan 10, 2024 12:00 AM Laboratory - Chemi stry Order LIPID PANEL, NON FASTING BLOOD (SST-SERUM) [facility] Jan 10, 2024 12:00 AM Laboratory - Chemi stry Order LIVER FUNCTION BLOOD (SST-SERUM) [facility] Jan 10, 2024 12:00 AM Laboratory - Chemi stry Order TSH BLOOD (SST-SERUM) [facility] Jan 10, 2024 12:00 AM Laboratory - Chemi stry Order FERRITIN BLOOD (SST-SERUM) [facility] Jan 10, 2024 12:00 AM Laboratory - Chemi stry Order VITAMIN B12 BLOOD (SST-SERUM) [facility] Jan 10, 2024 12:00 AM Laboratory - Chemi stry Order IRON & TIBC PANEL BLOOD (SST-SERUM) [facility] Vital Signs: All taken on the [...] 2024@11:00 ENTRY DATE: JAN 11, 2024@11:42:47 AUTHOR: SANTIAGO KRAMER COSIGNER: URGENCY: STATUS: COMPLETED participated in MOVE! Group Counseling via [facility] on January 10, 2024. The was provided with information on [facility] and has given verbal consent to use group [facility]VC services for their healthcare. The copy of the Group Telehealth Agreement has been mailed to the [place]. The Veterans location/emergency contact number were confirmed. The Emergency Call Relay Center (E911) was available. The visit was locked for security and privacy. identified with 2 identifiers: [ ] Full Name [ ] Address Veterans attended the [facility] MOVE! group session on this [...] in which they typically engage. Only one [place] challenged himself with calculating how many hours [...] want to lose weight currently. The next [facility] MOVE! group meeting will be held on December @ 11:00am. Sod's reported weight was 211.1 lbs. and lost 0.3 pounds since last group attended. Dx: Obesity d/t Excess Calories Obesity E66.09 BMI 30.0-30.9 The session lasted for 1 hour in duration. 's reported weight was 210 lbs. and lost 1.1 pounds since last group attended. Dx: Obesity d/t Excess Calories Obesity E66.09 BMI 30.0-30.9 The session lasted for 1 hour in duration. /johanny/ SANTIAGO KRAMER STAFF DIETITIAN Signed: 01/11/2024 12:05 SANTIAGO KRAMER [place]
--- OUTSIDE RECORDS SUMMARY | 2024-03-21 08:14 | XMS_ITS | Encounter Summary ---
Author Name [facility] [place] [facility] [place] Organization [facility] [place] Address [address] [place] [id number] Care Team Providers Care Bilingual Receptionist Name Role Phone LEN MENDOZA Primary [...] PART B Sep 23, 2014 PART B [id number] [id number] [phone] HARMONY MCCALL JR PATIENT MEDICARE (WNR) MEDICARE (M) PART A July 25, 2007 PART A [id number] HARMONY MCCALL JR PATIENT MEDICARE (WNR) MEDICARE (M) PART B July 25, 2007 PART B [id number] HARMONY MCCALL JR PATIENT MEDICARE (WNR) MEDICARE (M) PART A July 25, 2007 PART A [id number] HARMONY MCCALL JR [facility]IENT [facility] (OPT/PROF ) [facility] [place] * Jan 24, 2015 [id number] CAROLE MCCALL SPOUSE Selected Encounter This section includes the information on record at [place] for the Encounter. Date/Time Encounter Type Encounter Description Reason Provider Source Dec 20, 2023 11:00 AM HLTH BHV IVNTJ GRP EA ADDL WEIGHT MGMT & MOVE! PROG - GRP ICD-10-CM Z68.30 Body mass index [BMI] 30.0-30.9, adult GORDON PATHAK [facility] Encounter Template Text not used by [place] Assessments - Encounter Diagnoses This section includes the primary and secondary diagnoses documented for the Encounter. Date/Time Primary/Secondary Diagnosis Diagnosis Name Provider Source Dec 21, 2023 03:42 PM PRIMARY Body mass index [BMI] 30.0-30.9, adult GORDON PATHAK [place] Dec 21, 2023 03:42 PM SECONDARY Other obesity due to excess [...] Appointment Type Appointme nt Facility Name Dec 25, 2023 10:00 AM [facility]ONE [facility] [place] [facility] Dec 27, 2023 11:00 AM AMBULATORY - NONE [place] Jan 03, 2024 11:00 AM AMBULATORY - NONE [place] Jan 08, 2024 10:00 AM AMBULATORY [facility] NONE [facility] [place] [facility] Jan 10, 2024 11:00 AM AMBULATORY - NONE [place] Jan 17, 2024 11:00 AM AMBULATORY - NONE [place] Jan 21, 2024 11:00 AM AMBULATORY [facility] MEDICINE [facility] [place] [facility] Jan 22, 2024 11:00 AM [facility] Jan 22, 2024 11:00 AM AMBULATORY - NONE [facility] [place] [facility] Jan 24, 2024 11:00 AM AMBULATORY - NONE [place] Jan 31, 2024 11:00 AM AMBULATORY - NONE [place] Feb 07, 2024 11:00 AM AMBULATORY - NONE [place] Feb 14, 2024 11:00 AM AMBULATORY - NONE [place] Feb 26, 2024 08:30 AM AMBULATORY - NONE [facility] Feb 26, 2024 08:30 AM [facility] Feb 28, 2024 11:00 AM AMBULATORY [...] of theEncounter. The data comes from all [place] treatment facilities. Test Date/Time Test Type Test Details Facility Name Jan 10, 2024 12:00 AM Laboratory - Chemi stry Order CBC BLOOD (LAV-BLOOD) [facility] Jan 10, 2024 12:00 AM Laboratory - Chemi stry Order LIPID PANEL, NON FASTING BLOOD (SST-SERUM) [facility] Jan 10, 2024 12:00 AM Laboratory - Chemi stry Order LIVER FUNCTION BLOOD (SST-SERUM) [facility] Jan 10, 2024 12:00 AM Laboratory - Chemi stry Order TSH BLOOD (SST-SERUM) [facility] Jan 10, 2024 12:00 AM Laboratory - Chemi stry Order FERRITIN BLOOD (SST-SERUM) [facility] Jan 10, 2024 12:00 AM Laboratory - Chemi stry Order BASIC METABOLIC PANEL (non-fasting) BLOOD (SST-SERUM) [facility] Jan 10, 2024 12:00 AM Laboratory - Chemi stry Order VITAMIN B12 BLOOD (SST-SERUM) [facility] Jan 10, 2024 12:00 AM Laboratory - Chemi stry Order IRON & TIBC PANEL BLOOD (SST-SERUM) [facility] [place] [facility] Vital Signs: All taken on the encounter date This section contains inpatient and outpatient Vital Signs collected on the date of the Encounter. Date/Time Temperature Pulse Blood Pressure Respiratory Rate SP02 Pain Height Weight Body Mass Index Source Dec 20, 2023 11:17 AM 210.5 32 [place] Encounter Notes: All associated encounter notes This section contains the clinical notes associated to the Encounter. Date/Time Encounter Note(s) Provider Source Dec 21, 2023 03:25 PM MOVE NOTE: LOCAL TITLE: WEIGHT MANAGEMENT/MOVE! OUTPATIENT GROUP NOTE STANDARD TITLE: MOVE NOTE DATE OF NOTE: DEC 21, 2023@15:25 ENTRY DATE: DEC 21, 2023@15:25:47 AUTHOR: GORDON PATHAK COSIGNER: URGENCY: STATUS: COMPLETED [place] participated in MOVE! Group Counseling via [facility] on December 20, 2023. The [place] was provided with information on [facility] and has given verbal consent to use group [facility] services for their healthcare. The copy of the Group Telehealth Agreement has been mailed to the [place]. The Veterans location/emergency contact number were confirmed. The Emergency Call Relay Center (E911) was available. The visit was locked for security and privacy. identified with 2 identifiers: [ ] Full Name [ ] Address Veterans attended the [facility] MOVE! group session on this date. MOVE! is a program designed to provide education about weight management skills to overweight and obese Veterans. Group members combined to lose 21.3 pounds since their last attended group. Group members began today's discussion expressing concern that their collective weight has been trending up in the last several months and further concern about the upcoming change in weather and the holidays. Facilitators shared that future decisions around food and exercise are completely in their control and to not adopt such a fatalistic approach. Veterans reminded themselves of years prior when they lost weight during the holiday and winter season. They also talked about the importance of socializing during the holidays (, ) instead of relying upon food as the only source of entertainment. Group members shared their individual goals for the next week. The next [facility] MOVE! group meeting will be held on December @ 11:00am. [place]'s reported weight was 210.5 lbs. and gained 0.4 pounds since last group attended. Dx: Obesity d/t Excess Calories Obesity E66.09 BMI 30.0-30.9 The session lasted for 1 hour in duration. /johanny/ GORDON PATHAK, Ph.D. CLINICAL PSYCHOLOGIST Signed: 12/21/2023 15:49 Receipt Acknowledged By: 12/28/2023 10:24 /johanny/ SANTIAGO KRAMER STAFF DIETITIAN GORDON PATHAKFIELD
--- OUTSIDE RECORDS SUMMARY | 2024-03-21 08:15 | XMS_ITS | Encounter Summary ---
Author Name [facility] of [facility] [place] [facility] [place] Organization [facility] [place] Address [address] [place] [address] Care Team Providers Care Nuclear Plant Operator Name Role Phone LEN MENDOZA Primary [...] PART B Sep 23, 2014 PART B [id number] [phone] 4 HARMONY MCCALL JR PATIENT MEDICARE (WNR) MEDICARE (M) PART A July 25, 2007 PART A [id number] HARMONY MCCALL JR PATIENT MEDICARE (WNR) MEDICARE (M) PART B July 25, 2007 PART B [id number] [id number] HARMONY MCCALL JR PATIENT MEDICARE (WNR) MEDICARE (M) PART A July 25, 2007 PART A [id number] [id number] HARMONY MCCALL JR PATIENT [facility] MEDICAL EXPENSE (OPT/PROF ) [facility] * Jan 24, 2015 [id number] [phone] CAROLE MCCALL SPOUSE Selected Encounter This section includes the information on record at [place] for the Encounter. Date/Time Encounter Type Encounter Description Reason Provider Source Mar 06, 2024 11:00 AM GROUP BEHAVE COUNS 2-10 WEIGHT MGMT & MOVE! PROG - GRP ICD-10-CM E66.811 Obesity, class 1 SANTIAGO KRAMER Erin Encounter Template Text not used by [place] Assessments - Encounter Diagnoses This section includes the primary and secondary diagnoses documented for the Encounter. Date/Time Primary/Secondary Diagnosis Diagnosis Name Provider Source Mar 06, 2024 03:44 PM PRIMARY Obesity, class 1 SANTIAGO KRAMER Mar 06, 2024 03:44 PM SECONDARY Body mass index [BMI] 30.0-30.9, [...] Appointment Type Appointme nt Facility Name Mar 13, 2024 11:00 AM AMBULATORY - NONE [facility] Jul 21, 2024 10:00 AM AMBULATORY - MEDICINE [place] [facility] [place] [facility] Vital Signs: All taken on the encounter date This section contains inpatient and outpatient Vital Signs collected on the date of the Encounter. Date/Time Temperature Pulse Blood Pressure Respiratory Rate SP02 Pain Height Weight Body Mass Index Source Mar 06, 2024 03:47 PM 213.2 32 [place] Encounter Notes: All associated encounter notes This section contains the clinical notes associated to the Encounter. Date/Time Encounter Note(s) Provider Source Mar 06, 2024 11:00 AM MOVE NOTE: LOCAL TITLE: WEIGHT MANAGEMENT/MOVE! OUTPATIENT GROUP NOTE STANDARD TITLE: MOVE NOTE DATE OF NOTE: MAR 06, 2024@11:00 ENTRY DATE: MAR 06, 2024@15:22:28 AUTHOR: SANTIAGO KRAMER EXP COSIGNER: URGENCY: STATUS: COMPLETED participated in MOVE! Group Counseling via [facility] on March 06, 2024. The [place] was provided with information on [facility] and has given verbal consent to use group [facility] services for their healthcare. The copy of the Group Telehealth Agreement has been mailed to the [place]. The Veterans location/emergency contact number were confirmed. [...] obese Veterans. Group members combined to lose 6.9 pounds since their last attended group. Group members began by sharing their past week. Facilitators introduced a compensation intern who presented on the nutrition facts and recommendations concerning nuts and seeds. Group members thanked the architect internship for the presentation. Veterans shared their strategies for the upcoming week. The next [facility] MOVE! group meeting will be held on , March 13, 2024 @ 11:00am. 's reported weight was 213.2 lbs. and lost 1.4 pounds since last group attended. Dx: e66.811 z68.30 The session lasted for 1 hour in duration. /johanny/ SANTIAGO KRAMER STAFF DIETITIAN Signed: 03/06/2024 15:45 Receipt Acknowledged By: 03/06/2024 16:21 /johanny/ GORDON PATHAK, Ph.D. CLINICAL PSYCHOLOGIST SANTIAGO KRAMER [place]
--- OUTSIDE RECORDS SUMMARY | 2024-03-21 08:15 | XMS_ITS | Encounter Summary ---
Author Name [facility] of [facility] [place] [facility] [place] Organization [facility] [place] Address [address] [place] [address] Care Team Providers Care Data Capture Specialist Name Role Phone LEN MENDOZA Primary [...] PART B Sep 23, 2014 PART B [id number] HARMONY MCCALL JR PATIENT MEDICARE (WNR) MEDICARE (M) PART A July 25, 2007 PART A [id number] [id number] HARMONY MCCALL JR PATIENT MEDICARE (WNR) MEDICARE (M) PART B July 25, 2007 PART B [id number] [id number] HARMONY MCCALL JR PATIENT MEDICARE (WNR) MEDICARE (M) PART A July 25, 2007 PART A [id number] [id number] HARMONY MCCALL JR [facility] [place] * Jan 24, 2015 [id number] CAROLE MCCALL SPOUSE Selected Encounter This section includes the information on record at [place] for the Encounter. Date/Time Encounter Type Encounter Description Reason Provider Source Jan 22, 2024 11:00 AM Outpatient Encounter ADMIN PAT ACTIVTIES (MASNONCT) ICD-10-CM G47.33 Obstructive sleep apnea (adult) (pediatric) ARELIS NUNO Erin Encounter Template Text not used by [place] Assessments - Encounter Diagnoses This section includes the primary and secondary diagnoses documented for the Encounter. Date/Time Primary/Secondary Diagnosis Diagnosis Name Provider Source Jan 22, 2024 12:19 PM PRIMARY Obstructive sleep apnea (adult) (pediatric) ARELIS NUNO [facility] Plan of Treatment: Future Appointments [...] 26, 2024 08:30 AM AMBULATORY - NONE [place] [facility] [place] [facility] Feb 26, 2024 08:30 AM AMBULATORY - MEDICINE [facility] Feb 28, 2024 11:00 AM AMBULATORY - NONE [place] Mar 06, 2024 11:00 AM AMBULATORY - NONE [place] Mar 13, 2024 11:00 AM AMBULATORY - NONE [place] Jul 21, 2024 10:00 AM [facility] [place] [facility] Active, Pending, and Scheduled Orders This section includes a listing of several types of active, pending, and scheduled orders, including clinic medications orders, diagnostic test orders, procedure orders and consult orders; where the start date of the order is 45 days before the date of the Encounter or 45 days after the date of theEncounter. The data comes from all [facility] facilities. Test Date/Time Test Type Test Details Facility Name Jan 10, 2024 12:00 AM Laboratory - Chemi stry Order CBC BLOOD (LAV-BLOOD) [facility] Jan 10, 2024 12:00 AM Laboratory - Chemi stry Order LIPID PANEL, NON FASTING BLOOD (SST-SERUM) [facility] Jan 10, 2024 12:00 AM Laboratory - Chemi stry Order LIVER FUNCTION BLOOD (SST-SERUM) [facility] Jan 10, 2024 12:00 AM Laboratory - Chemi stry Order TSH BLOOD (SST-SERUM) [facility] Jan 10, 2024 12:00 AM Laboratory - Chemi stry Order FERRITIN BLOOD (SST-SERUM) [facility] Jan 10, 2024 12:00 AM Laboratory - Chemi stry Order BASIC METABOLIC PANEL (non-fasting) BLOOD (SST-SERUM) [facility] Jan 10, 2024 12:00 AM Laboratory - Chemi stry Order VITAMIN B12 BLOOD (SST-SERUM) [facility] Jan 10, 2024 12:00 AM Laboratory - Chemi stry Order IRON & TIBC PANEL BLOOD (SST-SERUM) [facility] Social History: Smoking Status (Most current) [...] 21, 2024 11:00 AM VA-TOBACCO FORMER USER [facility] Tobacco Use History This section includes a history of the smoking, or tobacco-related health factors, that were collected on or before the date of the Encounter. The data comes from the [place] facility where the Encounter took place. Date/Time Smoking Status/Tobacco Use Comment F acility Jan 21, 2024 11:00 AM VA-TOBACCO QUIT 15 YRS OR MORE [facility] [place] [facility] Jan 26, 2023 01:30 PM VA-TOBACCO FORMER USER [facility] [place] [facility] Jan 26, 2023 01:30 PM VA-TOBACCO QUIT 15 YRS OR MORE [facility] [place] [facility] Jan 27, 2022 11:00 AM VA-TOBACCO FORMER USER [facility] [place] [facility] Jan 27, 2022 11:00 AM VA-TOBACCO QUIT 15 YRS OR MORE [facility] [place] [facility] Sep 17, 2020 09:00 AM VA-TOBACCO FORMER USER [facility] [place] [facility] Sep 17, 2020 09:00 AM VA-TOBACCO QUIT 15 YRS OR MORE [facility] [place] [facility] Jun 04, 2019 02:57 PM VA-TOBACCO NEVER USED [facility] [place] [facility] Mar 14, 2018 11:23 AM VA-TOBACCO FORMER USER [facility] [place] [facility] Mar 14, 2018 11:23 AM VA-TOBACCO QUIT 15 YRS OR MORE [facility] [place] [facility] Apr 04, 2017 12:30 PM QUIT TOBACCO USE > 7 YEARS AGO [facility] [place] [facility] Apr 05, 2016 01:02 PM QUIT TOBACCO USE > 7 YEARS AGO quit in 1984 [place] [facility] [place] [facility] Encounter Notes: All associated encounter notes This section contains the clinical notes associated to the Encounter. Date/Time Encounter Note(s) Provider Source Jan 22, 2024 12:18 PM SLEEP MEDICINE NOT E: LOCAL TITLE: SLEEP DISORDER INITIAL CONSULT NOTE STANDARD TITLE: SLEEP MEDICINE NOTE DATE OF NOTE: JAN 22, 2024@12:18 ENTRY DATE: JAN 22, 2024@12:19:01 AUTHOR: ARELIS NUNO EXP COSIGNER: URGENCY: STATUS: [...] - 11/18/2023 : 1940 Age: 83 years 6[place] Compliance Report Compliance Payor [place] [facility] Usage 10/20/2023 - 11/18/2023 Usage days [...] 42 hours AirSense 11 AutoSet Serial number [id number] Mode AutoSet Min Pressure 5 cmH2O Max [...] 5-10 cmH20 - provided video for reinforcement ([email or web address]) - if no improvement in daytime sleepiness after 1 month of consistent use, he may discontinue CPAP RTC in 1 months. Total time spent during this encounter 45 min. /johanny/ ARELIS NUNO MD ATTENDING Signed: 01/22/2024 12:19 ARELIS NUNO [facility]
--- OUTSIDE RECORDS SUMMARY | 2024-03-21 08:15 | XMS_ITS | Encounter Summary ---
Author Name Department of [place] Organization [facility] [place]) Address [address] [place] [address] Care Team Providers Care Staff Trainer Name Role Phone LEN MENDOZA Primary [...] PART B Sep 23, 2014 PART B [id number] [id number] [phone] HARMONY MCCALL JR PATIENT MEDICARE (WNR) MEDICARE (M) PART A July 25, 2007 PART A [id number] HARMONY MCCALL JR PATIENT MEDICARE (WNR) MEDICARE (M) PART B July 25, 2007 PART B [id number] [id number] HARMONY MCCALL JR PATIENT MEDICARE (WNR) MEDICARE (M) PART A July 25, 2007 PART A [id number] [id number] HARMONY MCCALL JR PATIENT [facility] MEDICAL EXPENSE (OPT/PROF ) [facility] * Jan 24, 2015 [id number] [phone] CAROLE MCCALL SPOUSE Selected Encounter This [...] 26, 2024 08:30 AM AM[facility]ULATORY [facility]ONE [place] [facility] Feb 26, 2024 08:30 AM AMBULATORY - MEDICINE [facility] Feb 28, 2024 11:00 AM AMBULATORY - NONE [place] Mar 06, 2024 11:00 AM AMBULATORY - NONE [place] Mar 13, 2024 11:00 AM AMBULATORY - NONE [place] Jul 21, 2024 10:00 AM AMBULATORY - MEDICINE [facility] Active, Pending, and Scheduled Orders This section includes a listing of several types of active, pending, and scheduled orders, including clinic medications orders, diagnostic test orders, procedure orders and consult orders; where the start date of the order is 45 days before the date of the Encounter or 45 days after the date of theEncounter. The data comes from all [facility]. Test Date/Time Test Type Test Details Facility Name Jan 10, 2024 12:00 AM Laboratory - Chemi stry Order CBC BLOOD (LAV-BLOOD) [facility] Jan 10, 2024 12:00 AM Laboratory - Chemi stry Order LIPID PANEL, NON FASTING BLOOD (SST-SERUM) [facility] Jan 10, 2024 12:00 AM Laboratory - Chemi stry Order BASIC METABOLIC PANEL (non-fasting) BLOOD (SST-SERUM) [facility] Jan 10, 2024 12:00 AM Laboratory - Chemi stry Order LIVER FUNCTION BLOOD (SST-SERUM) [facility] Jan 10, 2024 12:00 AM Laboratory - Chemi stry Order TSH BLOOD (SST-SERUM) [facility] Jan 10, 2024 12:00 AM Laboratory - Chemi stry Order FERRITIN BLOOD (SST-SERUM) [facility] Jan 10, 2024 12:00 AM Laboratory - Chemi stry Order VITAMIN B12 BLOOD (SST-SERUM) [facility] Jan 10, 2024 12:00 AM Laboratory - Chemi stry Order IRON & TIBC PANEL BLOOD (SST-SERUM) [facility] Vital Signs: All taken on the [...] AUTHOR: SANTIAGO KRAMER COSIGNER: URGENCY: STATUS: COMPLETED [place] participated in MOVE! Group Counseling via [facility] on January 31, 2024. The was provided with information on [facility] and has given verbal consent to use group [facility] services for their healthcare. The copy of the Group Telehealth Agreement has been mailed to the . The Veterans location/emergency contact number were confirmed. The Emergency Call Relay Center (E911) was available. The visit was locked for security and privacy. [place] identified with 2 identifiers: [ ] Full Name [ ] Address Veterans attended the [facility] MOVE! group session on this date. MOVE! [...] track with their weight loss. The next [facility] MOVE! group meeting will be held on January @ 11:00am. 's reported weight was 211.3 lbs. and lost 0.7 lb since last group attended. Dx: e66.811 z68.30 The session lasted for 1 hour in duration. /johanny/ SANTIAGO KRAMER STAFF DIETITIAN Signed: 02/01/2024 10:49 Receipt Acknowledged By: 02/08/2024 12:25 /johanny/ GORDON PATHAK, Ph.D. CLINICAL PSYCHOLOGIST SANTIAGO KRAMER
--- OUTSIDE RECORDS SUMMARY | 2024-03-21 08:15 | XMS_ITS | Encounter Summary ---
Author Name Department of [place] [place] [facility] [place] Organization [facility] [place] Address [address] [place] [address] Care Team Providers Care Senior Principal Name Role Phone LEN MENDOZA Primary Care [...] PART B Sep 23, 2014 PART B [id number] [id number] [phone] 4 HARMONY MCCALL JR PATIENT MEDICARE (WNR) MEDICARE (M) PART A July 25, 2007 PART A [id number] HARMONY MCCALL JR PATIENT MEDICARE (WNR) MEDICARE (M) PART B July 25, 2007 PART B [id number] [phone] HARMONY MCCALL JR PATIENT MEDICARE (WNR) MEDICARE (M) PART A July 25, 2007 PART A [id number] [id number] [phone] HARMONY MCCALL JR PATIENT [facility] MEDICAL EXPENSE (OPT/PROF ) [facility] * Jan 24, 2015 [id number] [phone] CAROLE MCCALL SPOUSE Selected Encounter This [...] AM PRIMARY Obesity, class 1 SANTIAGO KRAMER [place] Plan of Treatment: Future Appointments (+ 6 months) and Future Tests (+/- 45 days) The Plan of Treatment section includes future care activities for the patient from all [place] treatmentfaciluab hospital. This section includes future appointments and [...] 26, 2024 08:30 AM AMBULATORY - NONE [place] [facility] Feb 26, 2024 08:30 AM AMBULATORY - MEDICINE [facility] Feb 28, 2024 11:00 AM AMBULATORY - NONE [place] Mar 06, 2024 11:00 AM AMBULATORY - NONE [place] Mar 13, 2024 11:00 AM AMBULATORY - NONE [place] Jul 21, 2024 10:00 AM AMBULATORY - MEDICINE [facility] Active, Pending, and Scheduled Orders This [...] - Chemi stry Order CBC BLOOD (LAV-BLOOD) [facility] Jan 10, 2024 12:00 AM Laboratory - Chemi stry Order LIPID PANEL, NON FASTING BLOOD (SST-SERUM) [facility] Jan 10, 2024 12:00 AM Laboratory - Chemi stry Order TSH BLOOD (SST-SERUM) [facility] Jan 10, 2024 12:00 AM Laboratory - Chemi stry Order LIVER FUNCTION BLOOD (SST-SERUM) [facility] Jan 10, 2024 12:00 AM Laboratory - Chemi stry Order BASIC METABOLIC PANEL (non-fasting) BLOOD (SST-SERUM) [facility] Jan 10, 2024 12:00 AM Laboratory - Chemi stry Order FERRITIN BLOOD (SST-SERUM) [facility] Jan 10, 2024 12:00 AM Laboratory - Chemi stry Order VITAMIN B12 BLOOD (SST-SERUM) [facility] Jan 10, 2024 12:00 AM Laboratory - Chemi stry Order IRON & TIBC PANEL BLOOD (SST-SERUM) [facility] Vital Signs: All taken on the encounter date This section contains inpatient and outpatient Vital Signs collected on the date of the Encounter. Date/Time Temperature Pulse Blood Pressure Respiratory Rate SP02 Pain Height Weight Body Mass Index Source Jan 24, 2024 12:[address] [place] [address] [place] Encounter Notes: All associated encounter notes [...] visit was locked for security and privacy. [place] identified with 2 identifiers: [ ] Full [...] track witht their weight loss. The next [facility] MOVE! group meeting will be held on January @ 11:00am. [place]'s reported weight was 212.0 lbs. and was stable since last group attended. Dx: e66.811 z68.30 The session lasted for 1 hour in duration. /johanny/ SANTIAGO KRAMER STAFF DIETITIAN Signed: 01/25/2024 10:45 Receipt Acknowledged By: 01/28/2024 16:18 /johanny/ GORDON PATHAK, Ph.D. CLINICAL PSYCHOLOGIST SANTIAGO KRAMERFIELD
--- OUTSIDE RECORDS SUMMARY | 2024-03-21 08:15 | XMS_ITS | Encounter Summary ---
Author Name [facility] [place] [facility] [place] Address [address] [place] [address] Care Team Providers Care Harness Cleaner Name Role Phone LUCAS STRATTON Primary Care [...] PART B Sep 23, 2014 PART B [id number] HARMONY MCCALL JR PATIENT MEDICARE (WNR) MEDICARE (M) PART A July 25, 2007 PART A [id number] HARMONY MCCALL JR PATIENT MEDICARE (WNR) MEDICARE (M) PART B July 25, 2007 PART B [id number] HARMONY MCCALL JR PATIENT MEDICARE (WNR) MEDICARE (M) PART A July 25, 2007 PART A [id number] HARMONY MCCALL JR PATIENT [facility] MEDICAL EXPENSE (OPT/PROF ) [facility] * Jan 24, 2015 [id number] CAROLE MCCALL SPOUSE Selected Encounter This section includes the information on record at [place] for the Encounter. Date/Time Encounter Type Encounter Description Reason Provider Source Jan 21, 2024 11:00 AM OFFICE O/P EST MOD 30 MIN PRIMARY CARE/MEDICINE ICD-10-CM G47.30 Sleep apnea, unspecified ELIAN STRATTON AM IHErin Encounter Template Text not used by [place] Assessments - Encounter Diagnoses This section includes the primary and secondary diagnoses documented for the Encounter. Date/Time Primary/Secondary Diagnosis Diagnosis Name Provider Source Feb 02, 2024 06:03 AM PRIMARY Sleep apnea, unspecified STRATTON,WILL MYRIAM Ferrell [place] [facility] Feb 02, 2024 06:03 AM SECONDARY Encounter for immunization [facility] [place] [facility] [facility] Feb 02, 2024 06:03 AM SECONDARY Essential (primary) hypertension STRATTON,WILL MYRIAM J [place] [facility] [facility] [facility] Feb 02, 2024 06:03 AM SECONDARY Hypothyroidism, unspecified STRATTON,WILL MYRIAM J [facility] Plan of Treatment: Future Appointments (+ 6 [...] 11:00 AM AMBULATORY - MEDICINE [facility] [place] [facility] Jan 22, 2024 11:00 AM AMBULATORY - NONE [place] [facility] [facility] Jan 24, 2024 11:00 AM AMBULATORY - NONE [place] Jan 31, 2024 11:00 AM AMBULATORY - NONE [place] Feb 07, 2024 11:00 AM AMBULATORY - NONE [place] Feb 14, 2024 11:00 AM AMBULATORY - NONE [place] Feb 26, 2024 08:30 AM AMBULATORY - NONE [place] [facility] [facility] Feb 26, 2024 08:30 AM [facility]UL[facility] [place] Feb 28, 2024 11:00 AM AMBULATORY - NONE [place] Mar 06, 2024 11:00 AM AMBULATORY - NONE [place] Mar 13, 2024 11:00 AM AMBULATORY - NONE [place] Jul 21, 2024 10:00 AM AMBULATORY - MEDICINE [facility] Active, Pending, and Scheduled Orders This section includes a listing of several types of active, pending, and scheduled orders, including clinic medications orders, diagnostic test orders, procedure orders and consult orders; where the start date of the order is 45 days before the date of the Encounter or 45 days after the date of theEncounter. The data comes from all [place] treatment facilities. Test Date/Time Test Type Test Details Facility Name Jan 10, 2024 12:00 AM Laboratory - Chemi stry Order CBC BLOOD (LAV[facility]BLOOD) [facility] Jan 10, 2024 12:00 AM Laboratory - Chemi stry Order LIPID PANEL, NON FASTING BLOOD (SST-SERUM) [facility] Jan 10, 2024 12:00 AM Laboratory - Chemi stry Order LIVER FUNCTION BLOOD (SST-SERUM) [facility] Jan 10, 2024 12:00 AM Laboratory - Chemi stry Order TSH BLOOD (SST-SERUM) [facility] Jan 10, 2024 12:00 AM Laboratory - Chemi stry Order FERRITIN BLOOD (SST-SERUM) [facility] Jan 10, 2024 12:00 AM Laboratory - Chemi stry Order BASIC METABOLIC PANEL (non-fasting) BLOOD (SST-SERUM) [facility] Jan 10, 2024 12:00 AM Laboratory - Chemi stry Order VITAMIN B12 BLOOD (SST-SERUM) [facility] Jan 10, 2024 12:00 AM Laboratory - Chemi stry Order IRON & TIBC PANEL BLOOD (SST-SERUM) [facility] Vital Signs: All taken on the encounter date This section contains inpatient and outpatient Vital Signs collected on the date of the Encounter. Date/Time Temperature Pulse Blood Pressure Respiratory Rate SP02 Pain Height Weight Body Mass Index Source Jan 21, 2024 10:55 AM 136/74 [place] [facility] Jan 21, 2024 10:52 AM 98.1 63 151/78 20 97 0 68 212 32 [place] [facility] Immunizations: All administered on the encounter [...] 21, 2024 11:00 AM VA-TOBACCO FORMER USER [place] [facility] [place] [facility] Tobacco Use History This section includes a history of the smoking, or tobacco-related health factors, that were collected on or before the date of the Encounter. The data comes from the [place] facility where the Encounter took place. Date/Time Smoking Status/Tobacco Use Comment F acility Jan 21, 2024 11:00 AM VA-TOBACCO QUIT 15 YRS OR MORE [facility] [place] [facility] Jan 26, 2023 01:30 PM VA-TOBACCO FORMER USER [place] [facility] [facility] Jan 26, 2023 01:30 PM VA-TOBACCO QUIT 15 YRS OR MORE [place] [facility] [place] [facility] Jan 27, 2022 11:00 AM VA-TOBACCO FORMER USER [place] [facility] [place] [facility] Jan 27, 2022 11:00 AM VA-TOBACCO QUIT 15 YRS OR MORE [place] [facility] [place] [facility] Sep 17, 2020 09:00 AM VA-TOBACCO FORMER USER [place] [facility] [place] [facility] Sep 17, 2020 09:00 AM VA-TOBACCO QUIT 15 YRS OR MORE [place] [facility] [place] [facility] Jun 04, 2019 02:57 PM VA-TOBACCO NEVER USED [place] [facility] [place] [facility] Mar 14, 2018 11:23 AM VA-TOBACCO FORMER USER [place] [facility] [place] [facility] Mar 14, 2018 11:23 AM VA-TOBACCO QUIT 15 YRS OR MORE [place] [facility] [place] [facility] Apr 04, 2017 12:30 PM QUIT TOBACCO USE > 7 YEARS AGO [facility] [place] [facility] Apr 05, 2016 01:02 PM QUIT TOBACCO USE > 7 YEARS AGO quit in 1984 [facility] Encounter Notes: All associated encounter notes [...] complaint: Patient is a 83 year old [place]. HPI: Pleasant male here to follow up. Feeling well. He [...] this [facility] (local) and dispensed from another [place] or [facility] facility (remote) as well as inpatient [...] as: Straight or Heterosexual /es/ Lucas Stratton [place], STOGY MAKER-BC, CNL Primary Care Nurse Practitioner Signed: 01/21/2024 12:34 LUCAS STRATTON [place] [facility] [place] [facility] Jan 21, 2024 10:54 AM PREVENTIVE MEDICINE NURSING NOTE: LOCAL TITLE: CLINICAL REMINDERS/NURSING STANDARD TITLE: PREVENTIVE MEDICINE NURSING NOTE DATE OF NOTE: JAN 21, 2024@10:54 ENTRY DATE: JAN 21, 2024@10:54:34 AUTHOR: ARRON AUGUSTIN EXP COSIGNER: URGENCY: STATUS: COMPLETED CLINICAL REMINDERS/NURSING Has [...] full rights to use it throughout the [place] system. PRIMARY SCREEN RESULT: The Primary Screen is NEGATIVE. The individual answered never to all forms of IPV above (i.e., answered never to all 5 items) The individual accepts education and/or resources: No EDUCATION: Other: not interested at this time /johanny/ Arron Augustin, Health Product Scientist SAP SD ANALYST,PRIMARY CARE Signed: 01/21/2024 10:57 01/21/2024 ADDENDUM STATUS: COMPLETED Influenza Immunization: Influenza, High-Dose, Trivalent, Preservative Free (Fluzone-Syringe) Administered: INFLUENZA, HIGH-DOSE, TRIVALENT, PF Date Administered: Jan 21, 2024 11:00 Smoke Room Operator: SANOFI PASTEUR Lot: [id number] Exp Date: Sep 22, 2024 [facility]: [phone] Admin Route/Site: INTRAMUSCULAR/RIGHT DELTOID Dosage: 0.5mL Vaccine Information Statement(s): INFLUENZA(FLU) VACC(INACTIVATED OR RECOMBINANT)VIS Oct 29, 2020 (ITALIAN) Order By: Policy Administered By: Terri Davey [...] REGISTERED NURSE Signed: 01/21/2024 11:31 ARRON AUGUSTIN CNTDarL [facility]
--- OUTSIDE RECORDS SUMMARY | 2024-03-21 08:15 | XMS_ITS | Encounter Summary ---
Author Name [facility] [place] [facility] [place] Organization [facility] [place] Address [address] [place] [address] Care Team Providers Care Assistant Merchandiser Name Role Phone LEN MENDOZA Primary Care [...] PART B Sep 23, 2014 PART B [id number] [id number] HARMONY MCCALL JR PATIENT MEDICARE (WNR) MEDICARE (M) PART A July 25, 2007 PART A [id number] [id number] HARMONY MCCALL JR PATIENT MEDICARE (WNR) MEDICARE (M) PART B July 25, 2007 PART B [id number] [id number] HARMONY MCCALL JR PATIENT MEDICARE (WNR) MEDICARE (M) PART A July 25, 2007 PART A [id number] HARMONY MCCALL JR PATIENT [facility] MEDICAL EXPENSE (OPT/PROF ) [facility] * Jan 24, 2015 [id number] [phone] CAROLE MCCALL SPOUSE Selected Encounter This section includes the information on record at [place] for the Encounter. Date/Time Encounter Type Encounter Description Reason Provider Source Mar 13, 2024 11:00 AM GROUP BEHAVE COUNS 2-10 WEIGHT MGMT & MOVE! PROG - GRP ICD-10-CM E66.811 Obesity, class 1 SANTIAGO KRAMER Erin Encounter Template Text not used by [place] Assessments - Encounter Diagnoses This section includes the primary and secondary diagnoses documented for the Encounter. Date/Time Primary/Secondary Diagnosis Diagnosis Name Provider Source Mar 13, 2024 03:19 PM PRIMARY Obesity, class 1 SANTIAGO KRAMER Mar 13, 2024 03:19 PM SECONDARY Body mass index [BMI] 30.0-30.9, [...] 21, 2024 10:00 AM AMBULATORY - [place]ICINE [place] [facility] Vital Signs: All taken on the encounter date This section contains inpatient and outpatient Vital Signs collected on the date of the Encounter. Date/Time Temperature Pulse Blood Pressure Respiratory Rate SP02 Pain Height Weight Body Mass Index Source Mar 13, 2024 11:16 AM 213 32 [place] Encounter Notes: All associated encounter notes This section contains the clinical notes associated to the Encounter. Date/Time Encounter Note(s) Provider Source Mar 13, 2024 11:00 AM MOVE NOTE: LOCAL TITLE: WEIGHT MANAGEMENT/MOVE! OUTPATIENT GROUP NOTE STANDARD TITLE: MOVE NOTE DATE OF NOTE: MAR 13, 2024@11:00 ENTRY DATE: MAR 13, 2024@15:12:01 AUTHOR: SANTIAGO KRAMER EXP COSIGNER: URGENCY: STATUS: COMPLETED participated in MOVE! Group Counseling via [facility] on March 13, 2024. The [place] was provided with information on VVC and has given verbal consent to use group VVC services for their healthcare. The copy of the Group Telehealth Agreement has been mailed to the [place]. The Veterans location/emergency contact number were confirmed. The Emergency Call Relay Center ([phone]) was available. The visit was locked for security and privacy. identified with 2 identifiers: [ ] Full Name [ ] Address Veterans attended the [facility] MOVE! group session on this date. MOVE! is a program designed to provide education about weight management skills to overweight and obese Veterans. Group members combined to lose no weight since their last attended group. Group members began by sharing their past week. Facilitators led a discussion on tips to maintain weight during the holidays. Group members shared their plans and facilitators encouraged them to focus more on the people and less on the food. Facilitators wished group members a happy holiday and reviewed the schedule after the new year. The next [facility] MOVE! group meeting will be held on March @ 11:00am. 's reported weight was 213.2 lbs. and was stable since last group attended. Dx: e66.811 z68.30 The session lasted for 1 hour in duration. /johanny/ SANTIAGO KRAMER STAFF DIETITIAN Signed: 03/13/2024 15:20 Receipt Acknowledged By: 03/13/2024 16:44 /johanny/ GORDON PATHAK, Ph.D. CLINICAL PSYCHOLOGIST [place]
--- NOTE | 2024-03-21 08:50 | MHC.OFFWIV ---
Intake Vital Signs 03/21/24 08:51 Height 5 ft 11 in Weight 100.698 kg BMI 31.0 BP 130/90 H Blood Pressure Location Rt brachial Position Sitting Pulse 66 Pulse Source Pulse Oximeter Pulse Oximetry (%) 98 Oxygen Delivery Method Room Air Intake Visit Reasons: EP LT knee/calf swelling hot to touch Intake Note: Patient here for left knee swelling and pain that is going down to the calf which has been present since Nov but has worsened this past week. Patient Tobacco Use Status: Former Tobacco user Allergies morphine Allergy (Unknown, Verified 03/21/24 08:52) Unknown ENVIROMENTAL Allergy (Unknown, Uncoded 03/21/24 08:52) POST NASAL DRIP Do you need a note to return to daycare/school/sports/work: No HPI HPI Comments History of Present Illness Details 0902 83 yo m presents w/ months of progressivly worsening L knee and calf pain. Reports now swelling into his L calf and he has a constant ache/ pain in his LLE. No acute trauma or falls. No hx of PE or DVT. Not on blood thinners. No CP, SOB, CAMEJO, weaknesss, fevers, chills PE- + lance on the left. Negative on the rigt. Palpable pulses. Hx and pe concernig for DVT of LLE vs inflammatory arthritis. Unlikley arterial occlusion or acute threat to limb Plan- labs, STAT DVT study [facility] Medical History Painful arc syndrome of right shoulder Nocturia Lipid disorder Other specified hypothyroidism Prolactinoma Hypertension, essential Surgical History History of biopsy History of surgery Family History Father No problems noted. Mother Colon cancer Brother No problems noted. Brother No problems noted. Sister No problems noted. Social History Housing: House Alcohol intake: never Patient Tobacco Use Status: Former Tobacco user e-Cigarette/Vaping Use: Never Used service: Yes Current occupational status: retired Cognitive needs: No Hearing needs: No Vision needs: No Review of Systems Const Details: Constitutional : No Weight loss, No Fever, No Chills, No Fatigue, No Malaise ENT/Mouth : No sore throat, No Rhinorrhea Eyes: No Eye Pain, No Swelling, No Redness Cardiovascular : No Chest Pain, No SOB, No Dyspnea on Exertion, No Orthopnea, No Edema, No Palpitations Respiratory : No Cough, No Sputum, No Wheezing Gastrointestinal : No Nausea, No Vomiting, No Diarrhea, No Constipation, No abdominal Pain, No Hematochezia, No Melena Genitourinary : No Dysuria, No Urinary Frequency, No Hematuria, Musculoskeletal : No joint pain, No Myalgias, No Joint Swelling Skin : No Skin Lesions, No rash Neuro : No Weakness, No Numbness, No Dizziness, No Headache Psych : No Anxiety/Panic, No Depression All other systems reviewed and are negative All systems reviewed & are unremarkable except as noted in HPI and below Physical Exam Vital Signs: Last Vital Signs Pulse 66 03/21/24 08:51 BP 130/90 H 03/21/24 08:51 Pulse Ox 98 03/21/24 08:51 Oxygen Delivery Method Room Air 03/21/24 08:51 BMI result Body Mass Index 31.0 Appearance: Alert.? Oriented X3.? No acute distress.? Head: Normocephalic, atraumatic, no step-offs or deformities Eyes: Pupils equal, round and reactive to light.? CVS: Normal heart rate and rhythm.? Pulses normal.? Respiratory: No respiratory distress.? Breath sounds normal.? Abdomen: Soft and nontender.? Skin: Skin warm and dry.? Normal skin color.? Normal skin turgor.? Extremities: 2+ non pitting edema to LLE from knee down to foot .? +lance on the left 5/5 strength to bilateral upper and lower extremities Back: No midline tenderness, no C-spine tenderness, full range of motion, no CVA tenderness bilaterally Neuro: Oriented X 3.? No motor deficit.? No sensory deficit. CN 2-12 intact Assessment & Plan Assessment & Plan (1) Swelling of left lower extremity: Code(s): M79.89 - Other specified soft tissue disorders Plan Take your medications as prescribed. If you were prescribed antibiotics today, it is important that you take your medication to their entirety, do not skip any doses, do not finish them early. Follow-up with your primary care provider this week. Return to the emergency department with new or worsening symptoms. In case of emergency call 911 Orders: Orders US venous duplex LE LT Today M79.89 - Other specified soft tissue disorders Prothrombin Time INR Today M79.89 - Other specified soft tissue disorders Complete Blood Count Auto Diff Today M79.89 - Other specified soft tissue disorders Comprehensive Met. Panel Today M79.89 - Other specified soft tissue disorders Coding Level of Care Code Est Pt Level 3 (59546) Diagnoses Swelling of left lower extremity M79.89
[2024-03-21 08:51] VITALS: BP 130/90; PULSE 66; O2SAT 98; BMI 31.0
== END 2024-03-21 10:53 | disposition home or self-care (01) ==
PROVIDERS: PCP Internal Medicine; Visit Provider Physician Assistant
DX: M79.89 Other specified soft tissue disorders (principal)

== ENCOUNTER 2024-03-21 09:22 | Outpatient (REF) | payer MEDICARE, OTHER, SELFPAY ==
--- NOTE | ~2024-03-21 | US_ITS ---
EXAMINATION: US TRIPLEX LOWER EXTREMITY, LEFT CLINICAL INFORMATION: Left lower extremity swelling. Evaluate for deep vein thrombosis. COMPARISON: None available. TECHNIQUE: Color-flow triplex imaging with spectral analysis and compression Doppler were performed on the left lower extremity. FINDINGS: Respiratory variation, normal compression and augmented flow are noted throughout the left lower extremity. The visualized common femoral vein, superficial femoral vein, profunda femoral vein, popliteal vein and midcalf peroneal and posterior tibial venous segments show no evidence of deep venous thrombosis. There is no Rod's cyst. US/US venous duplex LE LT IMPRESSION: No evidence of deep venous thrombosis involving the left lower extremity. Electronically signed by: Chris Mathias MD 03/21/2024 10:25 AM CHELSI DURAN
--- OUTSIDE RECORDS SUMMARY | 2024-03-21 09:39 | XMS_ITS | Continuity of Care Document ---
Author Name [facility] Organization [facility] Care Team Providers Care Aging Room Hand Name Role Phone [facility] Unavailable Unavailable Problems Combined list of problems [...] ICD-10-CM E66.811 Obesity, class 1 Active Diagnosis [facility] Diagnosis: ICD-10-CM Z68.30 Body mass index [BMI] 30.0-30.9, adult Active Diagnosis [facility] Diagnosis: ICD-10-CM G47.33 Obstructive sleep apnea (adult) (pediatric) Active Diagnosis [facility] Diagnosis: ICD-10-CM G47.30 Sleep apnea, unspecified Active Diagnosis [facility] Diagnosis: ICD-10-CM E66.09 Other obesity due to excess calories Active Diagnosis [facility] Diagnosis: ICD-10-CM Z71.3 Dietary counseling and surveillance Active Diagnosis [facility] Diagnosis: ICD-10-CM Z72.3 Lack of physical exercise Active Diagnosis [facility] Diagnosis: ICD-10-CM Z73.3 Stress, not elsewhere classified Active Diagnosis [facility] Diagnosis: ICD-10-CM Z68.29 Body mass index [BMI] 29.0-29.9, adult Active Diagnosis [facility] Diagnosis: ICD-10-CM Z46.0 Encounter for fit/adjst [...] TABLET BY MOUTH DAILY [facility]AL [facility] BROMOCRIPTI NE MESYLATE 0.8MG TAB TAKE THREE TABLETS BY MOUTH ONCE DAILY ORAL ACTIVE ,2016 [facility] CALCIUM 200MG (CA CITRATE-950 MG) TAB TAKE THREE TABLETS BY MOUTH DAILY ORAL ACTIVE ,2016 [facility] CARBOXYMETH YLCELLULOSE NA 0.5% SOLN,OPH INSTILL 1 DROP INTO EACH EYE FOUR TIMES A DAY FOR DRY EYE OPHTHA LMIC ACTIVE 09/25/2024 [id number] Cecily GEE ICHELE 2023 45 [facility] CETIRIZINE HCL 10MG TAB TAKE ONE TABLET BY MOUTH DAILY ORAL ACTIVE BRITT, [facility] CHOLECALCIF FORTINO 25MCG (1,000UNIT) TAB TAKE ONE TABLET BY MOUTH DAILY ORAL ACTIVE BRITT, [facility] LEVOTHYROXI NE NA 125MCG TAB (SYNTHROID) TAKE ONE TABLET BY MOUTH EVERY MORNING 30 MINUTES BEFORE BREAKFAS T ORAL ACTIVE LEN MENDOZA 2023 [facility] LISINOPRIL 5MG TAB TAKE ONE TABLET BY MOUTH ONCE DAILY TO CONTROL BLOOD PRESSURE ORAL 01/27/2024 [id number] LEN MENDOZA 2022 90 [facility] [place] POTASSIUM 100MG TAB TAKE ONE TABLET BY MOUTH ONCE DAILY ORAL ACTIVE LEN MENDOZA 2017 [facility] METOPROLOL SUCCINATE 50MG TAB,SA TAKE ONE TABLET BY MOUTH ONCE DAILY ORAL ACTIVE LEN MENDOZA 2022 [facility] OTHER CAP/TAB TAKE 5 MG BY MOUTH DAILY ORAL ACTIVE BALWINDER, [facility] 2016 [facility] TAMSULOSIN HCL 0.4MG CAP TAKE 1 CAPSULE BY MOUTH ONCE DAILY ORAL ACTIVE LEN MENDOZA 2019 [facility] IELD Immunizations Combined list of available immunizations from the Department of Defense and Veterans Affairs facilities. Immunization Series Date Given Administered By Site Reaction Lot Number CVX Code Drug Sap Pp Consultant Status Comments Source INFLUENZA, HIGH-DOSE, TRIVALENT, PF 2023 SHE REID SSA H RIGHT DELTO ID [id number] 135 complet ed [facility] INFLUENZA, HIGH-DOSE, QUADRIVALENT 2022 [facility]O BANKS LEFT DELTO ID [id number] 197 complet ed [facility] COVID-19 (MODERNA), MRNA, LNP-S, PF, 100 MCG/0.5ML DOSE OR 50 MCG/0.25ML DOSE 3 2021 207 complet ed MOD; [id number]; 2 [facility] COVID-19 (MODERNA), MRNA, LNP-S, PF, 100 MCG OR 50 MCG DOSE 3 2020 207 complet ed MOD; [id number]; 2 [facility] INFLUENZA VACCINE, QUADRIVALENT, ADJUVANTED 2020 205 complet ed [facility] COVID-19 (MODERNA), MRNA, LNP-S, PF, 100 MCG/0.5 ML DOSE 2 2020 207 complet ed MOD; [id number]; 1 [facility] COVID-19 (MODERNA), MRNA, LNP-S, PF, 100 MCG/0.5 ML DOSE 1 2020 207 complet ed MOD; [id number]; 1 [facility] [...] Left Deltoid [facility] PNEUMOCOCCAL CONJUGATE PCV 13 2017 [...] Jul 12, 2023 10:12 AM Reporting Lab: [facility] [address] Performing Lab: [facility] [place] [facility] [address] [facility] [address] [facility] BASIC METABOLIC PANEL (non-fast ing) GLUCOSE [MASS/VOLUM E] IN SERUM OR PLASMA 95 mg/dL 65 - 100 07/18 Specimen Type: SERUM No comment entered. Ordering Provider: ORACIO MENDOZA Report Released Date/Time: Jul 12, 2023 10:12 AM Reporting Lab: [facility] [address] Performing Lab: [facility] [place] [address] [address] [facility] [place] [facility] BASIC METABOLIC PANEL (non-fast ing) SODIUM [MOLES/VOLU ME] IN SERUM OR PLASMA 142 mmol/L 135 - 145 07/18 Specimen Type: SERUM No comment entered. Ordering Provider: ORACIO MENDOZA Report Released Date/Time: Jul 12, 2023 10:12 AM Reporting Lab: [facility] [address] Performing Lab: [facility]TR[facility] [place] [facility] [address] [facility] [address] [facility]ITALRHALE INFIRMARYN [facility]ITALUSE [facility] BASIC METABOLIC PANEL (non-fast ing) POTASSIUM [MOLES/VOLU ME] IN SERUM OR PLASMA 4.7 mmol/L 3.5 - 5.0 07/18 Specimen Type: SERUM No comment entered. Ordering Provider: ORACIO MENDOZA Report Released Date/Time: Jul 12, 2023 10:12 AM Reporting Lab: [facility]ITALRWOODLAND [facility] CENTERTRN [facility]ITALUSEUN[facility] [address] [facility] [address] Performing Lab: [facility]PITALRHALE INFIRMARYN [facility]PITALUSEUN[facility] [address] [facility] [address] [facility]ITALUSE [facility] BASIC METABOLIC PANEL (non-fast ing) CHLORIDE [MOLES/VOLU ME] IN SERUM OR PLASMA 107 mmol/L 100 - 110 07/18 Specimen Type: SERUM No comment entered. Ordering Provider: ORACIO MENDOZA Report Released Date/Time: Jul 12, 2023 10:12 AM Reporting Lab: [facility]PITALUSEUNIV[facility] [address] [facility] [address] Performing Lab: [facility]ITALUSEUN[facility] [address] [facility] [address] [facility] BASIC METABOLIC PANEL (non-fast ing) CARBON DIOXIDE, TOTAL [MOLES/VOLU ME] IN SERUM OR PLASMA 28 meq/L 20 - 30 07/18 Specimen Type: SERUM No comment entered. Ordering Provider: ORACIO MENDOZA Report Released Date/Time: Jul 12, 2023 10:12 AM Reporting Lab: [facility]ITALRWOODLAND MEDICAL CENTERTRN [facility]ITALUSEUN[facility] [address] [facility] [address] Performing Lab: [facility]PITALRHALE INFIRMARYN [facility]PITALUSEUNIV[facility] [address] [facility] [address] [facility] BASIC METABOLIC PANEL (non-fast ing) CREATININE [MASS/VOLUM E] IN SERUM OR PLASMA 0.90 mg/dL 0.50 - 1.40 07/18 Specimen Type: SERUM No comment entered. Ordering Provider: ORACIO MENDOZA Report Released Date/Time: Jul 12, 2023 10:12 AM Reporting Lab: [facility] [facility] [address] [facility] [address] Performing Lab: [facility] [place] [facility] [address] [facility] [address] [facility] BASIC METABOLIC PANEL (non-fast ing) GLOMERULAR FILTRATION RATE/1.73 SQ M.PREDICTED [VOLUME RATE/AREA] IN SERUM, PLASMA OR BLOOD BY CREATININE- BASED FORMULA (CKD-EPI 2020) 86 mL/min 60 07/18 Specimen Type: SERUM No comment entered. Ordering Provider: ORACIO MENDOZA Report Released Date/Time: Jul 12, 2023 10:12 AM Reporting Lab: [facility] [place] [address] [address] Performing Lab: [facility] [place] [address] [address] [facility] CBC LEUKOCYTES [#/VOLUME] IN BLOOD BY AUTOMATED COUNT 7.33 10*3/u L 4.50 - 11.00 07/18 Specimen Type: BLOOD No comment entered. Ordering Provider: ORACIO MENDOZA Report Released Date/Time: Jul 12, 2023 10:12 AM Reporting Lab: [facility] [place] [address] [address] Performing Lab: [facility] [place] [address] [address] [facility] CBC ERYTHROCYTE S [#/VOLUME] IN BLOOD BY AUTOMATED COUNT 4.94 10*6/u L 4.23 - 5.66 07/18 Specimen Type: BLOOD No comment entered. Ordering Provider: ORACIO MENDOZA Report Released Date/Time: Jul 12, 2023 10:12 AM Reporting Lab: [facility] [place] [address] [address] Performing Lab: [facility] [place] [address] [place] [address] [facility] [facility] CBC HEMOGLOBIN [MASS/VOLUM E] IN BLOOD 15.1 g/dL 12.8 - 17 07/18 Specimen Type: BLOOD No comment entered. Ordering Provider: ORACIO MENDOZA Report Released Date/Time: Jul 12, 2023 10:12 AM Reporting Lab: [facility] [place] [facility] [address] [facility] [address] Performing Lab: [facility] [place] [facility] [address] [facility] [address] [facility] CBC HEMATOCRIT [VOLUME FRACTION] OF BLOOD BY AUTOMATED COUNT 46.2 39.2 - 50.4 07/18 Specimen Type: BLOOD No comment entered. Ordering Provider: ORACIO MENDOZA Report Released Date/Time: Jul 12, 2023 10:12 AM Reporting Lab: [facility] [place] [address] [address] Performing Lab: [facility] [place] [address] [address] [facility] [facility] CBC MCV [ENTITIC VOLUME] BY AUTOMATED COUNT 93.5 fL 82 - 99 07/18 Specimen Type: BLOOD No comment entered. Ordering Provider: ORACIO MENDOZA Report Released Date/Time: Jul 12, 2023 10:12 AM Reporting Lab: [facility] [place] [address] [address] Performing Lab: [facility] [place] [address] [address] [facility] [place] [facility] CBC MCHC [MASS/VOLUM E] BY AUTOMATED COUNT 32.7 g/dL 30.8 - 35.1 07/18 Specimen Type: BLOOD No comment entered. Ordering Provider: ORACIO MENDOZA Report Released Date/Time: Jul 12, 2023 10:12 AM Reporting Lab: [facility] [place] [address] [address] Performing Lab: [facility] [address] [facility] [address] [facility] CBC PLATELETS [#/VOLUME] IN BLOOD BY AUTOMATED COUNT 181 10*3/u L 140 - 360 07/18 Specimen Type: BLOOD No comment entered. Ordering Provider: ORACIO MENDOZA Report Released Date/Time: Jul 12, 2023 10:12 AM Reporting Lab: [facility] [address] [facility] [address] Performing Lab: [facility] [address] [facility] [address] [facility] [place] [facility] CBC ERYTHROCYTE DISTRIBUTIO N WIDTH [RATIO] BY AUTOMATED COUNT 13.2 12.0 - 16.0 07/18 Specimen Type: BLOOD No comment entered. Ordering Provider: ORACIO MENDOZA Report Released Date/Time: Jul 12, 2023 10:12 AM Reporting Lab: [facility] [address] [facility] [address] Performing Lab: [facility] [address] [facility] [address] [facility] [place] [facility] CBC MCH [ENTITIC MASS] BY AUTOMATED COUNT 30.6 pg 26.2 - 32.6 07/18 Specimen Type: BLOOD No comment entered. Ordering Provider: ORACIO MENDOZA Report Released Date/Time: Jul 12, 2023 10:12 AM Reporting Lab: [facility] [address] [facility] [address] Performing Lab: [facility] [address] [facility] [address] [facility] [place] [facility] LIPID PANEL, NON FASTING CHOLESTEROL [MASS/VOLUM E] IN SERUM OR PLASMA 119 mg/dL 07/18 Specimen Type: SERUM No comment entered. Ordering Provider: ORACIO MENDOZA Report Released Date/Time: Jul 12, 2023 10:12 AM Reporting Lab: [facility] [address] [facility] [address] Performing Lab: [facility]ITALRWOODLAND MEDICAL CENTERTRN [facility]OSPITALUSETS [facility] [address] [facility] [address] [facility]OSPITALRHALE INFIRMARYN [facility]OSPITALUSE [facility] LIPID PANEL, NON FASTING TRIGLYCERID E [MASS/VOLUM E] IN SERUM OR PLASMA 48 mg/dL 0 - 150 07/18 Specimen Type: SERUM No comment entered. Ordering Provider: ORACIO MENDOZA Report Released Date/Time: Jul 12, 2023 10:12 AM Reporting Lab: [facility] HOSPITALRL TRN [facility]OSPITALUSETS [facility] [address] [facility] [address] Performing Lab: [facility]PITALRHALE INFIRMARYN [facility] [address] [facility] [address] [facility] LIPID PANEL, NON FASTING CHOLESTEROL IN LDL [MASS/VOLUM E] IN SERUM OR PLASMA BY CALCULATION 63 mg/dL 0 - 129 07/18 Specimen Type: SERUM No comment entered. Ordering Provider: ORACIO MENDOZA Report Released Date/Time: Jul 12, 2023 10:12 AM Reporting Lab: [facility]OSPITALRHALE INFIRMARYN [facility]PITALUSEUNIVERSITY [facility] [address] [facility] [address] Performing Lab: [facility]ITALRHALE INFIRMARYN [facility]ITALUSEUNIV[facility] [address] [facility] [address] [facility] LIPID PANEL, NON FASTING CHOLESTEROL .TOTAL/CHOL ESTEROL IN HDL [MASS RATIO] IN SERUM OR PLASMA 2.6 07/18 Specimen Type: SERUM No comment entered. Ordering Provider: ORACIO MENDOZA Report Released Date/Time: Jul 12, 2023 10:12 AM Reporting Lab: [facility]PITALRWOODLAND MEDICAL CENTERTRN [facility]PITALUSEUNIV[facility] [address] [facility] [address] Performing Lab: [facility]ITALRWOODLAND MEDICAL CENTERTRN [facility]PITALUSEUNIVERSITY [facility] [address] [facility] [address] [facility]ITALUSE [facility] LIPID PANEL, NON FASTING CHOLESTEROL IN HDL [MASS/VOLUM E] IN SERUM OR PLASMA 46 mg/dL 40 - 60 07/18 Specimen Type: SERUM No comment entered. Ordering Provider: ORACIO MENDOZA Report Released Date/Time: Jul 12, 2023 10:12 AM Reporting Lab: [facility] [address] [facility] [address] Performing Lab: [facility] [address] [facility] [address] [facility] LIVER FUNCTION PROTEIN [MASS/VOLUM E] IN SERUM OR PLASMA 6.7 g/dL 6.0 - 8.3 07/18 Specimen Type: SERUM No comment entered. Ordering Provider: ORACIO MENDOZA Report Released Date/Time: Jul 12, 2023 10:12 AM Reporting Lab: [facility] [address] [facility] [address] Performing Lab: [facility] [place] [facility] [address] [facility] [address] [facility] [place] [facility] LIVER FUNCTION ALBUMIN [MASS/VOLUM E] IN SERUM OR PLASMA 3.8 g/dL 3.5 - 5.0 07/18 Specimen Type: SERUM No comment entered. Ordering Provider: ORACIO MENDOZA Report Released Date/Time: Jul 12, 2023 10:12 AM Reporting Lab: [facility] [place] [facility] [address] [facility] [address] Performing Lab: [facility] [place] [facility] [address] [facility] [address] [facility] [place] [facility] LIVER FUNCTION ALKALINE PHOSPHATASE [ENZYMATIC ACTIVITY/VO LUME] IN SERUM OR PLASMA 55 U/L 40 - 150 07/18 Specimen Type: SERUM No comment entered. Ordering Provider: ORACIO MENDOZA Report Released Date/Time: Jul 12, 2023 10:12 AM Reporting Lab: [facility] [address] [facility] [address] Performing Lab: [facility] [place] [facility] [address] [facility] [address] [facility] [place] [facility] LIVER FUNCTION ASPARTATE AMINOTRANSF ERASE [ENZYMATIC ACTIVITY/VO LUME] IN SERUM OR PLASMA 26 U/L 5 - 34 07/18 Specimen Type: SERUM No comment entered. Ordering Provider: ORACIO MENDOZA Report Released Date/Time: Jul 12, 2023 10:12 AM Reporting Lab: [facility] [place] [facility] [address] [facility] [address] Performing Lab: [facility] [place] [facility] [address] [facility] [address] [facility] [place] [facility] LIVER FUNCTION ALANINE AMINOTRANSF ERASE [ENZYMATIC ACTIVITY/VO LUME] IN SERUM OR PLASMA 26 U/L 07/18 Specimen Type: SERUM No comment entered. Ordering Provider: ORACIO MENDOZA Report Released Date/Time: Jul 12, 2023 10:12 AM Reporting Lab: [facility] [place] [facility] [address] [facility] [address] Performing Lab: [facility] [place] [address] [address] [facility] [place] [facility] LIVER FUNCTION BILIRUBIN.T OTAL [MASS/VOLUM E] IN SERUM OR PLASMA 0.6 mg/dL 0.2 - 1.2 07/18 Specimen Type: SERUM No comment entered. Ordering Provider: ORACIO MENDOZA Report Released Date/Time: Jul 12, 2023 10:12 AM Reporting Lab: [facility] [place] [address] [address] Performing Lab[facility] [place] [facility] [address] [facility] [address] [facility] [place] [facility] TSH THYROTROPIN [UNITS/VOLU ME] IN SERUM OR PLASMA 0.67 u[IU]/ mL 0.35 - 5.00 07/18 Specimen Type: SERUM No comment entered. Ordering Provider: ORACIO MENDOZA Report Released Date/Time: Jul 12, 2023 10:12 AM Reporting Lab: [facility] [place] [address] [address] Performing Lab: [facility] [place] [address] [address] [facility] [place] [facility] CBC LEUKOCYTES [#/VOLUME] IN BLOOD BY AUTOMATED COUNT 6.50 10*3/u L 4.50 - 11.00 01/24 Specimen Type: BLOOD No comment entered. Ordering Provider: ORACIO MENDOZA Report Released Date/Time: Jan 15, 2023 04:07 PM Reporting Lab: [facility] [place] [facility] [address] [place] [address] Performing Lab: [facility] [place] [facility] [address] [facility] [address] [facility] CBC ERYTHROCYTE S [#/VOLUME] IN BLOOD BY AUTOMATED COUNT 4.73 10*6/u L 4.23 - 5.66 01/24 Specimen Type: BLOOD No comment entered. Ordering Provider: ORACIO MENDOZA Report Released Date/Time: Jan 15, 2023 04:07 PM Reporting Lab: [facility] [place] [address] [address] Performing Lab: [facility] [place] [address] [address] [facility] WSTR[facility] [place] [facility] CBC HEMOGLOBIN [MASS/VOLUM E] IN BLOOD 14.7 g/dL 12.8 - 17 01/24 Specimen Type: BLOOD No comment entered. Ordering Provider: ORACIO MENDOZA Report Released Date/Time: Jan 15, 2023 04:07 PM Reporting Lab: [facility] [place] [facility] [address] [place] [address] Performing Lab: [facility] [place] [facility] [address] [place] [address] [facility] [place] [facility] CBC HEMATOCRIT [VOLUME FRACTION] OF BLOOD BY AUTOMATED COUNT 44.2 39.2 - 50.4 01/24 Specimen Type: BLOOD No comment entered. Ordering Provider: ORACIO MENDOZA Report Released Date/Time: Jan 15, 2023 04:07 PM Reporting Lab: [facility] [place] [address] [address] Performing Lab[facility] [place] [facility] [address] [facility] [address] [facility] [place] [facility] CBC MCV [ENTITIC VOLUME] BY AUTOMATED COUNT 93.4 fL 82 - 99 01/24 Specimen Type: BLOOD No comment entered. Ordering Provider: ORACIO MENDOZA Report Released Date/Time: Jan 15, 2023 04:07 PM Reporting Lab: [facility] [address] [facility] [address] Performing Lab: [facility] [place] [address] [facility] [address] [facility] [place] [facility] CBC MCHC [MASS/VOLUM E] BY AUTOMATED COUNT 33.3 g/dL 30.8 - 35.1 01/24 Specimen Type: BLOOD No comment entered. Ordering Provider: ORACIO MENDOZA Report Released Date/Time: Jan 15, 2023 04:07 PM Reporting Lab: [facility] [address] [facility] [address] Performing Lab: [facility] [place] [facility] [address] [facility] [address] [facility] [place] [facility] CBC PLATELETS [#/VOLUME] IN BLOOD BY AUTOMATED COUNT 194 10*3/u L 140 - 360 01/24 Specimen Type: BLOOD No comment entered. Ordering Provider: ORACIO MENDOZA Report Released Date/Time: Jan 15, 2023 04:07 PM Reporting Lab: [facility] [place] [facility] [address] [facility] [address] Performing Lab: [facility] [place] [facility] [address] [facility] [address] [facility] [place] [facility] CBC ERYTHROCYTE DISTRIBUTIO N WIDTH [RATIO] BY AUTOMATED COUNT 13.0 12.0 - 16.0 01/24 Specimen Type: BLOOD No comment entered. Ordering Provider: ORACIO MENDOZA Report Released Date/Time: Jan 15, 2023 04:07 PM Reporting Lab: [facility] [place] [place] [facility] [address] [facility] [address] Performing [facility] [place] [facility] [address] [facility] [address] [facility] [place] [facility] CBC MCH [ENTITIC MASS] BY AUTOMATED COUNT 31.1 pg 26.2 - 32.6 01/24 Specimen Type: BLOOD No comment entered. Ordering Provider: ORACIO MENDOZA Report Released Date/Time: Jan 15, 2023 04:07 PM Reporting Lab: [facility] [facility] [address] [facility] [address] Performing Lab: [facility] [place] [facility] [address] [facility] [address] [facility] [place] [facility] LIPID PANEL FASTING CHOLESTEROL [MASS/VOLUM E] IN SERUM OR PLASMA 109 mg/dL 01/24 Specimen Type: SERUM No comment entered. Ordering Provider: ORACIO MENDOZA Report Released Date/Time: Jan 15, 2023 04:07 PM Reporting Lab: [facility] [place] [facility] [address] [facility] [address] Performing Lab: [facility] [place] [facility] [address] [facility] [address] [facility] [place] [facility] LIPID PANEL FASTING TRIGLYCERID E [MASS/VOLUM E] IN SERUM OR PLASMA 50 mg/dL 0 - 150 01/24 Specimen Type: SERUM No comment entered. Ordering Provider: ORACIO MENDOZA Report Released Date/Time: Jan 15, 2023 04:07 PM Reporting Lab[facility] [place] [facility] [address] [facility] [address] Performing Lab: [facility] [place] [facility] [address] [facility] [address] [facility] [place] [facility] LIPID PANEL FASTING CHOLESTEROL IN LDL [MASS/VOLUM E] IN SERUM OR PLASMA BY CALCULATION 59 mg/dL 0 - 129 01/24 Specimen Type: SERUM No comment entered. Ordering Provider: ORACIO MENDOZA Report Released Date/Time: Jan 15, 2023 04:07 PM Reporting Lab: [facility] [place] [facility] [address] [facility] [address] Performing Lab: [facility] [place] [facility] [address] [facility] [address] [facility] [place] [facility] LIPID PANEL FASTING CHOLESTEROL .TOTAL/CHOL ESTEROL IN HDL [MASS RATIO] IN SERUM OR PLASMA 2.7 01/24 Specimen Type: SERUM No comment entered. Ordering Provider: ORACIO MENDOZA Report Released Date/Time: Jan 15, 2023 04:07 PM Reporting Lab: [facility] [address] [facility] [address] Performing Lab: [facility]USE[facility] [address] [facility] [address] [facility]ITALRHALE INFIRMARYN [facility]OSPITALUSE [facility] LIPID PANEL FASTING CHOLESTEROL IN HDL [MASS/VOLUM E] IN SERUM OR PLASMA 40 mg/dL 40 - 60 01/24 Specimen Type: SERUM No comment entered. Ordering Provider: ORACIO MENDOZA Report Released Date/Time: Jan 15, 2023 04:07 PM Reporting Lab: [facility]ITALRWOOD[facility] MED[facility] CENTERTRN [facility]PITALUSEUN[facility] [address] [facility] [address] Performing Lab: [facility]ITAL[facility] [address] [facility] [address] [facility]OSPITALUSE [facility] THYROID T4 FREE(FT4) THYROXINE (T4) FREE [MASS/VOLUM E] IN SERUM OR PLASMA 1.30 ng/dL 0.6 - 1.6 01/24 Specimen Type: SERUM No comment entered. Ordering Provider: ORACIO MENDOZA Report Released Date/Time: Jan 15, 2023 04:07 PM Reporting Lab: [facility] [facility] [address] [facility] [address] Performing Lab: [facility] [place] [facility] [address] [facility] [address] [facility] [place] [facility] TSH THYROTROPIN [UNITS/VOLU ME] IN SERUM OR PLASMA 0.36 u[IU]/ mL 0.35 - 5.00 01/24 Specimen Type: SERUM No comment entered. Ordering Provider: ORACIO MENDOZA Report Released Date/Time: Jan 15, 2023 04:07 PM Reporting Lab: [facility] [address] [facility] [address] Performing Lab: [facility] [address] [facility] [address] [facility] VITAMIN D (25-OH) 25-HYDROXYV ITAMIN D3 [MASS/VOLUM E] IN SERUM OR PLASMA 46 ng/mL 20 - 50 01/24 Specimen Type: SERUM No comment entered. Ordering Provider: ORACIO MENDOZA Report Released Date/Time: Jan 15, 2023 04:07 PM Reporting Lab: [facility] [address] [facility] [address] Performing Lab: [address] [address] [facility] Vital Signs Combined list of [...] [facility]) Encounters from the Department of Defense facilities going back up to 280 months. Location Location Details Encounter Type Encounter Number Reason For Visit Attending Provider ADM Date DC Date Status Disposition Source [facility] CLASS [id number] Diagnos is: ICD-10- CM Z72.3 Lack of physica l exercis e
Cecily ONEILLIN 09/20 [facility] [place] [place] [facility] [place] GROUP BEHAVE COUNS 2-10 [id number] Diagnos is: ICD-10- CM E66.09 Other obesity due to excess calorie s
EVAN KRAMER P 09/21 [place] [facility] EX[facility] CLASS [id number] Diagnos is: ICD-10- CM Z72.3 Lack of physica l exercis e
ILIANA UNDERWOOD 09/21 [facility] EX[facility] CLASS [id number] Diagnos is: ICD-10- CM Z72.3 Lack of physica l exercis e
Cecily ONEILL SHANICE 09/22 [facility] [place] EX[facility] CLASS [id number] Diagnos is: ICD-10- CM Z72.3 Lack of physica l exercis e
CRISTAL LAZCANO LLCourtney M 09/25 [facility] [place] EX[facility] CLASS [id number] Diagnos is: ICD-10- CM Z72.3 Lack of physica l exercis e
CRISTAL LAZCANO LLY M 10/02 [facility] [place] [place] [facility] Outpatient Encounter [id number] 10/03 [facility] [place] [place] [facility] Outpatient Encounter [id number] REJIGuzman JON Ghassan 10/03 [facility] [place] [place] [facility] [place] GROUP BEHAVE COUNS 2-10 [id number] Diagnos is: ICD-10- CM E66.09 Other obesity due to excess calorie s
EVAN KRAMER P 10/05 [place] [facility] EXERCISE CLASS [id number] Diagnos is: ICD-10- CM Z72.3 Lack of physica l exercis e
CRISTAL LAZCANO M 10/06 [facility] [place] [facility] CLASS [id number] Diagnos is: ICD-10- CM E66.3 Overwei ght<br/ > GORDON PATHAK 10/12 [place] [facility] EXERCISE CLASS [id number] Diagnos is: ICD-10- CM Z72.3 Lack of physica l exercis e
CRISTAL LAZCANO M 10/16 [facility] [place] [place] [facility] [place] EX[facility] CLASS [id number] Diagnos is: ICD-10- CM Z72.3 Lack of physica l exercis e
Cecily ONEILL 10/18 [facility] [place] [place] [facility] [place] WEIGHT MGMT CLASS [id number] Diagnos is: ICD-10- CM Z68.29 Body mass index [BMI] 29.0-29 .9, adult<b r/> GORDON PATHAK 10/19 [place] [facility] EXERCISE CLASS [id number] Diagnos is: ICD-10- CM Z72.3 Lack of physica l exercis e
LARISA COATES 10/20 [facility] EXERCISE CLASS [id number] [id number] Diagnos is: ICD-10- CM Z72.3 Lack of physica l exercis e
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
EVAN KRAMER 11/09 [place] [facility] [place] [facility] EXERCISE CLASS [id number] Diagnos is: ICD-10- CM Z72.3 Lack of physica l exercis e
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
CRISTAL LAZCANO M 12/25 [facility] [place] [place] [facility] [place] [facility] Outpatient Encounter [id number] 12/28 [facility] [place] [facility] [place]IGHT MGMT CLASS [id number] Diagnos is: ICD-10- CM Z68.29 Body mass index [BMI] 29.0-29 .9, adult<b r/> GORDON PATHAK 01/04 [place] [facility] BEHAVE COUNS 2-10 [id number] [id number] Diagnos is: ICD-10- CM E66.3 Overwei ght<br/ > EVAN KRAMER 01/11 [place] [facility] EXERCISE CLASS [id number] Diagnos is: ICD-10- CM 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
CRISTAL LAZCANO 01/26 [facility] [place] [place] [facility] [place] [facility] OFFICE O/P EST MOD 30-39 MIN [id number] [id number] Diagnos is: ICD-10- CM M17.9 Osteoar thritis of knee, unspeci fied
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
Cecily ONEILL 02/07 [facility] [place] [place] [facility] WEIGHT MGMT CLASS [id number] [id number] Diagnos is: ICD-10- CM Z68.29 Body mass index [BMI] 29.0-29 .9, adult<b r/> GORDON PATHAK 02/08 [facility] [place] [facility] EXERCISE CLASS [id number] [id number] Diagnos is: ICD-10- CM Z72.3 Lack of physica l exercis e
CRISTAL LAZCANO M 02/09 [facility] [place] [place] [facility] [place] [facility] EXERCISE CLASS [id number] [id number] Diagnos is: ICD-10- CM Z72.3 Lack of physica l exercis e
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
SYDNEYCRISTAL LEAL M 03/05 [facility] [place] [place] [facility] Out[facility] En[facility] [id number] 03/05 [facility] SELF-MGMT EDUC & TRAIN 1 [place] [id number] Diagnos is: ICD-10- CM G47.33 Obstruc tive sleep apnea (adult) (pediat amparo)
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
ILIANA UNDERWOOD 03/07 [facility] [facility] LD GROUP BEHAVE COUNS 2-10 [id number] Diagnos is: ICD-10- CM E66.09 Other obesity due to excess calorie s
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
Cecily ONEILL 03/14 [facility] [place] [facility] GROUP BEHAVE COUNS 2-10 [id number] [id number] Diagnos is: ICD-10- CM E66.3 Overwei ght<br/ > EVAN KRAMER CHABOBBY P 03/15 [place] [facility] SLEEP STUDY UNATT&RESP EFFT [id number] Diagnos is: ICD-10- CM G47.33 Obstruc tive sleep apnea (adult) (pediat amparo)
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
Cecily ONEILL 03/28 [facility] [place] [place] [facility] SLEEP STUDY UNATT&RESP EFFT [id number] [id number] Diagnos is: ICD-10- CM G47.33 Obstruc tive sleep apnea (adult) (pediat amparo)
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
Cecily ONEILL 04/04 [facility] [place] [facility] LD GROUP BEHAVE COUNS 2-10 [id number] Diagnos is: ICD-10- CM E66.09 Other obesity due to excess calorie s
EVAN KRAMER P 04[place]05 [place] [facility] LD GROUP BEHAVE COUNS 2-10 [id number] [id number] Diagnos is: ICD-10- CM E66.3 Overwei ght<br/ > EVAN KRAMER P 04/05 [place] [facility] PT EDUCATION NOC GROUP [id number] Diagnos is: ICD-10- CM Z71.3 Dietary prison classification counselor ing and surveil nancy<b r/> RAKESH GRACIA 04/10 [facility] [place] [facility] CENTER WEIGHT MGMT CLASS 34439-4.63 [id number] Diagnos is: ICD-10- CM Z68.29 Body mass index [BMI] 29.0-29 .9, adult<b r/> GORDON PATHAK 04/12 [facility] [place] [facility] EXERCISE CLASS [id number] [id number] Diagnos is: ICD-10- CM 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
Cecily ONEILL SHANICE 05/09 [facility] [place] [facility] LD GROUP BEHAVE COUNS 2-10 17312-4.63 [id number] Diagnos is: ICD-10- CM E66.09 Other obesity due to excess calorie s
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
CRISTAL LAZCANO M 05/21 [facility] [place] [facility] LD GROUP BEHAVE COUNS 2-10 02404-4.63 [id number] Diagnos is: ICD-10- CM E66.09 Other obesity due to excess calorie s
EVAN KRAMER P [facility] PT EDUCATION NOC GROUP [id number] [id number] Diagnos is: ICD-10- CM Z71.3 Dietary prison classification counselor ing and surveil nancy<b r/> RAKESH GRACIA LIE CHENTE 05/28 [facility] [place] [facility] GROUP BEHAVE COUNS 2-10 72731-6.63 [id number] Diagnos is: ICD-10- CM E66.09 Other obesity due to excess calorie s
EVAN KRAMER CHABOBBY P 05/30 [facility] LD GROUP BEHAVE COUNS 2-10 [id number] [id number] Diagnos is: ICD-10- CM E66.09 Other obesity due to excess calorie s
EVAN KRAMER CHABOBBY P 06/06 [facility] PT EDUCATION NOC GROUP 03054-2.63 [id number] Diagnos is: ICD-10- CM Z71.3 Dietary prison classification counselor ing and surveil nancy<b r/> RAKESH GRACIA LIE CHENTE 06/11 [facility] [place] [facility] LD WEIGHT MGMT CLASS 09975-7.63 [id number] Diagnos is: ICD-10- CM E66.3 Overwei ght<br/ > GORDON PATHAK 06/13 [facility] IELD [facility] LD WEIGHT MGMT CLASS 26748-9.63 [id number] Diagnos is: ICD-10- CM Z68.29 Body mass index [BMI] 29.0-29 .9, adult<b r/> GORDON PATHAK 06/20 [facility] [place] [facility] [place] [facility] PT EDUCATION NOC GROUP 75357-9.63 [id number] Diagnos is: ICD-10- CM Z71.3 Dietary prison classification counselor ing and surveil nancy<b r/> RAKESH GRACIA 06/25 [facility] [place] [facility] LD WEIGHT MGMT CLASS 49436-7.63 [id number] Diagnos is: ICD-10- CM Z68.29 Body mass index [BMI] 29.0-29 .9, adult<b r/> GORDON PATHAK A 06/27 [facility] LD GROUP BEHAVE COUNS 2-10 82858-7.63 [id number] Diagnos is: ICD-10- CM E66.3 Overwei ght<br/ > EVAN KRAMER P 07/04 [facility] WEIGHT MGMT CLASS 04509-4.63 [id number] Diagnos is: ICD-10- CM Z68.29 Body mass index [BMI] 29.0-29 .9, adult<b r/> GORDON PATHAK 07/18 [place] [facility] [place] [facility] OFFICE O/P EST MOD 30 MIN 80553-4.63 [id number] Diagnos is: ICD-10- CM K21.9 Gastro- esophag eal reflux disease without esophag itis
Guzman MENDOZA 07/22 [facility] [place] [facility] Outpatient Encounter [id number] [id number] 07/23 [facility] [place] [facility] GROUP BEHAVE COUNS 2-10 14566-4.63 [id number] Diagnos is: ICD-10- CM E66.3 Overwei ght<br/ > EVAN KRAMER P 07/25 [place] [facility] [place] PT EDUCATION NOC GROUP [id number] [id number] Diagnos is: ICD-10- CM Z71.3 Dietary prison classification counselor ing and surveil nancy<b r/> RAKESH GRACIA 07/30 [facility] [place] [facility] LD GROUP BEHAVE COUNS 2-10 98049-5.63 [id number] Diagnos is: ICD-10- CM E66.3 Overwei ght<br/ > EVAN KRAMER P 08/01 [facility] BEHAVE COUNS 2-10 65189-8.63 [id number] Diagnos is: ICD-10- CM E66.3 Overwei ght<br/ > EVAN KRAMER JOSH P 08/08 [facility] [place] [facility] EXERCISE CLASS 15575-4.63 [id number] Diagnos is: ICD-10- CM 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
LARISA COATES 08/23 [facility] [place] [facility] EXERCISE CLASS 64647-8.63 [id number] Diagnos is: ICD-10- CM Z72.3 Lack of physica l exercis e
Cecily ONEILL 08/26 [facility] [place] [facility] CLASS 87437-8.63 [id number] Diagnos is: ICD-10- CM Z68.29 Body mass index [BMI] 29.0-29 .9, adult<b r/> GORDON PATHAK 08/29 [facility] [place] [facility] [place] [facility] EXERCISE CLASS 47411-7.63 [id number] Diagnos is: ICD-10- CM Z72.3 Lack of physica l exercis e
NENOCRISTAL M 08/30 [facility] [place] [facility] [place] EXERCISE CLASS 88262-8.63 [id number] Diagnos is: ICD-10- CM Z72.3 Lack of physica l exercis e
Cecily ONEILL 09/04 [facility] [place] [place] [facility] [place] WEIGHT MGMT CLASS 61957-1.63 [id number].[id number] Diagnos is: ICD-10- CM E66.09 Other obesity due to excess calorie s
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
CRISTAL LAZCANO M 09/06 [facility] [place] [facility] BEHAVE COUNS 2-10 05583-8.63 [id number] Diagnos is: ICD-10- CM E66.09 Other obesity due to excess calorie s
EVAN KRAMER 09/12 [facility] [place] [facility] [place] [facility] EXERCISE CLASS [id number] [id number] Diagnos is: ICD-10- CM Z72.3 Lack of physica l exercis e
LARISA COATES 09/13 [facility] [place] [facility] [place] WEIGHT MGMT CLASS [id number] [id number] Diagnos is: ICD-10- CM Z68.30 Body mass index [BMI] 30.0-30 .9, adult<b r/> GORDON PATHAK 09/19 [place] [facility] EXERCISE CLASS 92919-6.63 [id number] Diagnos is: ICD-10- CM Z72.3 Lack of physica l exercis e
LARISA COATES 09/20 [facility] [place] EXERCISE CLASS [id number] [id number] Diagnos is: ICD-10- CM Z72.3 Lack of physica l exercis e
CRISTAL LAZCANO M 09/23 [facility] [place] [place] [address]-4.63 [id number] Diagnos is: ICD-10- CM L71.8 Other rosacea
EVAN GEE OSMAN 09/24 [facility] [place] FIT SPECTACLES MONOFOCAL 88055-1.63 [id number] Diagnos is: ICD-10- CM Z46.0 Encount er for fit/adj st of spectac les and contact lenses< br/> EVAN GEE OSMAN 09/24 [facility] [place] EXERCISE CLASS [id number] [id number] Diagnos is: ICD-10- CM Z72.3 Lack of physica l exercis e
Cecily ONEILL 09/25 [facility] [place] EXERCISE CLASS 83535-5.63 [id number] Diagnos is: ICD-10- CM Z72.3 Lack of physica l exercis e
CRISTAL LAZCANO M 09/30 [facility] [place] [place] [facility] [place] LD GROUP BEHAVE COUNS 2-10 55363-6.63 [id number] Diagnos is: ICD-10- CM E66.09 Other obesity due to excess calorie s
EVAN KRAMER P 10/03 [facility] WEIGHT MGMT CLASS 37757-5.63 [id number].[id number] Diagnos is: ICD-10- CM Z68.29 Body mass index [BMI] 29.0-29 .9, adult<b r/> GORDON PATHAK A 10/10 [facility] [place] [facility]CS EXERCISE CLASS [id number] [id number] Diagnos is: ICD-10- CM Z72.3 Lack of physica l exercis e
CRISTAL LAZCANO LLY M 10/14 [facility] [place] [place] [facility] [place] EXERCISE CLASS 36418-4.63 1. 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
Cecily ONEILL 10/16 [facility] [place] [place] [facility] GROUP BEHAVE COUNS 2-10 24638-3.63 [id number] Diagnos is: ICD-10- CM E66.09 Other obesity due to excess calorie s
EVAN KRAMER P 10/17 [facility] [place] EXERCISE CLASS 22712-6.63 [id number] Diagnos is: ICD-10- CM Z72.3 Lack of physica l exercis e
CRISTAL LAZCANO LLY M 10/18 [facility] EXERCISE CLASS 72868-9.63 1. 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
NENOKE LLY M 10/21 [facility] [place] [facility] Outpatient Encounter [id number] [id number] Guzman MENDOZA 10/22 [facility] [place] POS AIRWAY PRESSURE FILTER 90002-4.63 1. Diagnos is: ICD-10- CM G47.30 Sleep apnea, unspeci fied
ST KATHARINA ARVIZU E P 10/22 [facility] [place] EXERCISE CLASS 15128-6.63 1. 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
Cecily ONEILL 10/23 [facility] [place] [facility] [place] [facility] BHV IVNTJ GRP EA ADDL [id number] [id number] Diagnos is: ICD-10- CM Z68.30 Body mass index [BMI] 30.0-30 .9, adult<b r/> GORDON PATHAK 10/24 [place] [facility] UNLISTED PHYSCL MED/[place] [address]-6.63 [id number] Diagnos is: ICD-10- CM Z72.3 Lack of physica l exercis e
LARISA COATES 10/25 [facility] [place] EXERCISE CLASS 19690-8.63 1. 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
CRISTAL LAZCANO 10/25 [facility] Outpatient Encounter [id number] [id number] 10/25 [facility] [place] Outpatient Encounter [id number] [id number] 10/25 [facility] [place] EXERCISE CLASS [id number] [id number] Diagnos is: ICD-10- CM Z72.3 Lack of physica l exercis e
CRISTAL LAZCANO M 10/28 [facility] [place] [facility] [place] COLLJ & INTERPJ DATA EA 30 D 02269-6.63 [id number] Diagnos is: ICD-10- CM G47.30 Sleep apnea, unspeci fied
ST AMANT,KATHARINA E P 10/29 [facility] [place] [place] [facility] [place] EXERCISE CLASS 16623-3.63 [id number] Diagnos is: ICD-10- CM Z72.3 Lack of physica l exercis e
Cecily ONEILL 10/30 [facility] [place] [facility] [place] HLTH BHV IVNTJ GRP EA ADDL [id number] [id number] Diagnos is: ICD-10- CM Z68.30 Body mass index [BMI] 30.0-30 .9, adult<b r/> GORDON PATHAK A 10/31 [place] [facility] [place] [place] [facility] EXERCISE CLASS [id number] [id number] Diagnos is: ICD-10- CM Z72.3 Lack of physica l exercis e
CRISTAL LAZCANO M 11/01 [facility] [place] [place] [facility] [place] [facility] EXERCISE CLASS [id number] [id number] Diagnos is: ICD-10- CM Z72.3 Lack of physica l exercis e
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
Cecily ONEILL SHANICE 11/06 [facility] [place] [facility] LD GROUP BEHAVE COUNS 2-10 37244-5.63 [id number] Diagnos is: ICD-10- CM E66.09 Other obesity due to excess calorie s
EVAN KRAMER P 11/07 [facility] [place] [facility] EXERCISE CLASS 65753-5.63 1. 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
Cecily ONEILL SHANICE 11/13 [facility] [place] [place] [facility] LD HLTH BHV IVNTJ GRP EA ADDL [id number] [id number] Diagnos is: ICD-10- CM Z68.30 Body mass index [BMI] 30.0-30 .9, adult<b r/> GORDON PATHAK 11/14 [facility] [place] [facility] [place] EXERCISE CLASS 50132-8.63 1. 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
Cecily ONEILL SHANICE 11/15 [facility] [place] [place] [facility] EXERCISE CLASS [id number] [id number] Diagnos is: ICD-10- CM Z72.3 Lack of physica l exercis e
CRISTAL LAZCANO 11/18 [facility] [place] [place] [facility] [place] [facility] EXERCISE CLASS 09138-0.63 1. 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
Cecily ONEILL SHANICE 11/20 [facility] [place] [place] [facility] LD GROUP BEHAVE COUNS 2-10 61064-7.63 [id number] Diagnos is: ICD-10- CM E66.09 Other obesity due to excess calorie s
EVAN KRAMER P 11/21 [facility] [place] [place] [facility] EXERCISE CLASS 27690-9.63 1. 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
MAICecily SHANICE 11/27 [facility] [place] [place] [facility] HLTH BHV IVNTJ GRP EA ADDL [id number] [id number] Diagnos is: ICD-10- CM Z68.30 Body mass index [BMI] 30.0-30 .9, adult<b r/> GORDON PATHAK A 11/28 [facility] [place] [facility] EXERCISE CLASS 82737-6.63 1. 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
LARISA COATES 11/29 [facility] [place] [place] [facility] [place] [facility] EXERCISE CLASS 32865-1.63 1. 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
CRISTAL LAZCANO M 12/02 [facility] [place] [place] [facility] COLLJ & INTERPJ DATA EA 30 D 02250-9.63 [id number] Diagnos is: ICD-10- CM G47.30 Sleep apnea, unspeci fied
ST AMANT,KATHARINA E P 12/02 [facility] [place] [facility] EXERCISE CLASS 67759-8.63 1. 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
CRISTAL LAZCANO M 12/04 [facility] [place] [place] [facility] GROUP BEHAVE COUNS 2-10 84002-8.63 [id number] Diagnos is: ICD-10- CM E66.09 Other obesity due to excess calorie s
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<b r/> RAKESH GRACIA LIE CHENTE 12/10 [facility] [place] [facility] [place] [id number] [id number] Diagnos is: ICD-10- CM Z73.3 Stress, not elsewhe re classif ied<br/ > CHALOJOSE ALBERTO CORCORAN RA 12/10 [facility] [place] [facility] [facility] EA ADDL [id number] [id number] Diagnos is: ICD-10- CM Z68.30 Body mass index [BMI] 30.0-30 .9, adult<b r/> GORDON PATHAK 12/12 [place] [facility] [place] [facility] EXERCISE CLASS [id number] [id number] Diagnos is: ICD-10- CM Z72.3 Lack of physica l exercis e
CRISTAL LAZCANO M 12/16 [facility] [place] [place] [facility] [place] 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
EVAN KRAMER CHAEL P 12/26 [place] [facility] IV[facility]P EA ADDL [id number] [id number] Diagnos is: ICD-10- CM Z68.30 Body mass index [BMI] 30.0-30 .9, adult<b r/> GORDON PATHAK A 01/02 [place] [facility] [place] [facility] PT EDUCATION NOC GROUP 67055-4.63 1. 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 38 Diagnos is: ICD-10- CM E66.09 Other obesity due to excess calorie s
EVAN KRAMER CHAEL P 01/09 [facility] IVNTJ GRP EA ADDL [id number] [id number] Diagnos is: ICD-10- CM Z68.30 Body mass index [BMI] 30.0-30 .9, adult<b r/> GORDON PATHAK A 01/16 [facility] [place] [facility] [place] [facility] OFFICE O/P EST MOD 30 MIN 05574-2.63 1. Diagnos is: ICD-10- CM G47.30 Sleep apnea, unspeci fied
Guzman MENDOZA 01/20 [facility] [place] [facility] OFFICE O/P EST MOD 30 MIN 93691-6.68 [id number] Diagnos is: ICD-10- CM G47.33 Obstruc tive sleep apnea (adult) (pediat amparo)
ARELIS NUNO 01/21 [facility] [place] [facility] Outpatient Encounter 41933-2.63 [id number] Diagnos is: ICD-10- CM G47.33 Obstruc tive sleep apnea (adult) (pediat amparo)
NUNO,ARELIS 01/21 [facility] [place] [facility] [place] GROUP BEHAVE COUNS 2-10 26012-5.63 [id number] Diagnos is: ICD-10- CM E66.811 Obesity , class 1
NIA,MI CHAEL P 01/23 [place] [facility] BEHAVE COUNS 2-10 71757-9.63 [id number] Diagnos is: ICD-10- CM E66.811 Obesity , class 1
NIA,MI CHAEL P 01/30 [place] [facility] GRP EA ADDL 20115-3.63 [id number] Diagnos is: ICD-10- CM Z68.30 Body mass index [BMI] 30.0-30 .9, adult<b r/> GORDON PATHAK A 02/06 [place] [facility] LD HLTH [facility] IVNTJ GRP EA ADDL 63069-2.63 [id number] Diagnos is: ICD-10- CM Z68.30 Body mass index [BMI] 30.0-30 .9, adult<b r/> GORDON PATHAK A 02/13 [place] [facility] OFFICE O/P EST MOD 30 MIN 61544-5.68 [id number] Diagnos is: ICD-10- CM G47.33 Obstruc tive sleep apnea (adult) (pediat amparo)
NUNO,ARELIS 02/25 [facility] [place] [facility] Outpatient Encounter 69571-3.63 [phone] Diagnos is: ICD-10- CM G47.33 Obstruc tive sleep apnea (adult) (pediat amparo)
NUNO,ARELIS 02/25 [facility] [place] [facility] LD HLTH [facility] IVNTJ GRP EA ADDL 14584-9.63 [id number] Diagnos is: ICD-10- CM Z68.30 Body mass index [BMI] 30.0-30 .9, adult<b r/> GORDON PATHAK A 02/27 [facility] [place] GROUP BEHAVE COUNS 2-10 97351-3.63 [id number] Diagnos is: ICD-10- CM E66.811 Obesity , class 1
EVAN KRAMER P 03/06 [facility] [place] GROUP BEHAVE COUNS 2-10 97446-0.63 [id number] Diagnos is: ICD-10- CM E66.811 Obesity , class 1
EVAN KRAMER P 03/13 [facility] IELD Social History Combined list of available smoking, tobacco, and other social history from [facility] of Defense and [facility] facilities. Social History Type Response Date Comment Sourc e Tobacco smoking status INIS [facility] FORMER USER 01/21/2024 [facility] [...] quit in 1984 [facility] [place] [facility] Plan of Care List of future care activities from Department of Veterans Affairs facilities. Additional future care activities may be listed in the Assessment and Plan section. Date/Time Care Activity Care Activity Detail Facili ty 07/21/2024 AMBULATORY - MEDICINE AMBULATORY - MEDICI [place] [facility] [place] [facility]
--- OUTSIDE RECORDS SUMMARY | 2024-03-21 09:42 | XMS_ITS | Encounter Summary ---
Author Name [facility] [facility] Address [address] [place] [address] Care Team Providers Care Professional Fee Coder Name Role Phone LEN MENDOZA Primary Care [...] PART B Sep 23, 2014 PART B [id number] HARMONY MCCALL JR PATIENT MEDICARE (WNR) MEDICARE (M) PART A July 25, 2007 PART A [id number] HARMONY MCCALL JR PATIENT MEDICARE (WNR) MEDICARE (M) PART B July 25, 2007 PART B [id number] HARMONY MCCALL JR PATIENT MEDICARE (WNR) MEDICARE (M) PART A July 25, 2007 PART A [id number] HARMONY MCCALL JR PATIENT [facility] MEDICAL EXPENSE (OPT/PROF ) [facility] * Jan 24, 2015 [id number] [phone] CAROLE MCCALL SPOUSE Selected Encounter This [...] 25, 2023 11:30 AM AMBULATORY - [facility] Oct 04, 2023 11:00 AM AMBULATORY - NONE [facility] Oct 11, 2023 11:00 AM AMBULATORY - NONE [place] Oct 18, 2023 11:00 AM AMBULATORY - NONE [place] Oct 23, 2023 09:00 AM AMBULATORY - NONE [facility] Oct 25, 2023 11:00 AM AMBULATORY - [...] AUTHOR: SANTIAGO KRAMER COSIGNER: URGENCY: STATUS: COMPLETED [place] participated in [facility] Group Counseling via [facility] on September 13, 2023. The was provided with information on [facility] and has given verbal consent to use group VVC services for their healthcare. The copy of the Group Telehealth Agreement has been mailed to the . The Veterans location/emergency contact number were confirmed. The Emergency Call Relay Center ([id number]) was available. The visit was locked for security and privacy. [place] identified with 2 identifiers: [ ] Full Name [ ] Address Veterans attended the [facility] MOVE! group session on this [...] presented on plant based foods. The next [facility] MOVE! group meeting will be held on August @ 11:00am. [place]'s reported weight was 209.5 lbs. and gained 1.2 pounds since last group attended. Dx: e66.09 z68.30 The session lasted for 1 hour in duration. /[email or web address]/ SANTIAGO KRAMER STAFF DIETITIAN Signed: 09/16/2023 18:18 SANTIAGO KRAMER DOUSMAN
[2024-03-21 13:06] LABS: MANUAL DIFF FLAG NO
[2024-03-21 13:09] LABS: Basophils Absolute Auto 0.1 X10*3/uL (0.0-0.2); Basophils Percent Auto 1.2 % (0-2); Eosinophils Absolute Auto 0.3 X10*3/uL (0.0-0.4); Eosinophils Percent Auto 5.1 % (0-4); Hematocrit 43.7 % (42.0-52.0); Hemoglobin 14.3 g/dl (14.0-18.0); Imm Gran Abs Auto 0.02 X10*3/uL (0.00-0.03); Imm Gran Pct Auto 0.3 % (0.0-0.4); Lymphocytes Percent Auto 29.5 % (20-40); Mean Corpuscular HGB Conc 32.7 g/dl (31.0-36.0); Mean Corpuscular Hemoglobin 31.1 pg (27.0-33.0); Mean Platelet Volume 9.8 fL (9.4-12.4); Monocytes Absolute Auto 0.6 X10*3/uL (0.1-1.2); Monocytes Percent Auto 9.1 % (2-11); Neutrophils Absolute Auto 3.7 x10*3/uL (2.0-8.3); Neutrophils Percent Auto 54.8 % (45-73); Platelet Count 188 X10*3/uL (160-400); Red Cell Distribution Width 13.5 % (11.0-16.0); White Blood Count 6.7 X10*3/uL (4.8-10.8)
[2024-03-21 13:17] LABS: Prothrombin Time 11.7 SEC (10.9-12.4)
[2024-03-21 13:31] LABS: Alanine Aminotransferase 21 U/L (0-40); Albumin Level 3.7 g/dL (3.5-5.0); Alkaline Phosphatase 69 U/L (39-117); Anion Gap 8 (12-20); Aspartate Amino Transferase 28 U/L (5-37); Bilirubin Total 0.6 mg/dL (0.0-1.0); Blood Urea Nitrogen 23 mg/dL (9-16); Calcium 9.4 mg/dL (8.4-10.2); Carbon Dioxide 30 mmol/L (22-29); Chloride 108 mmol/L (96-108); Estimated Glomerular Filt Rate > 60; Glucose Random 90 mg/dL (60-115); Sodium 142 mmol/L (135-145); Total Protein 6.5 g/dL (6.5-8.0)
[2024-03-21 13:52] LABS: Prostate Specific Antigen 0.79 ng/mL (<0.05-4.0)
== END 2024-03-21 09:23 | disposition home or self-care (01) ==
LOC: HO.HMGCX 09:22
PROVIDERS: Nurse Practitioner Family; PCP Internal Medicine; Visit Provider Physician Assistant
DX: M79.89 Other specified soft tissue disorders (principal); N40.1 Benign prostatic hyperplasia with lower urinary tract symptoms; N13.8 Other obstructive and reflux uropathy; Z12.5 Encounter for screening for malignant neoplasm of prostate
CPT/HCPCS: 36415; 80053; 84153; 85025; 85610; 93971; 99212

== ENCOUNTER 2024-03-25 10:34 | Outpatient (AMB) | payer MEDICARE, OTHER, SELFPAY ==
--- OUTSIDE RECORDS SUMMARY | 2024-03-25 10:44 | XMS_ITS | Continuity of Care Document ---
Author Name [facility] Organization [facility] Care Team Providers Care Technology Intern Name Role Phone [facility] Unavailable Unavailable Problems Combined list of problems [...] ICD-10-CM E66.811 Obesity, class 1 Active Diagnosis [facility] Diagnosis: ICD-10-CM Z68.30 Body mass index [BMI] 30.0-30.9, adult Active Diagnosis [facility] Diagnosis: ICD-10-CM G47.33 Obstructive sleep apnea (adult) (pediatric) Active Diagnosis [facility] Diagnosis: ICD-10-CM G47.30 Sleep apnea, unspecified Active [...] TABLET BY MOUTH DAILY [facility]AL [facility] BROMOCRIPTI NE MESYLATE 0.8MG TAB TAKE THREE TABLETS BY MOUTH ONCE DAILY ORAL ACTIVE ,2016 [facility] CALCIUM 200MG (CA CITRATE-950 MG) TAB TAKE THREE TABLETS BY MOUTH DAILY ORAL ACTIVE ,2016 [facility] CARBOXYMETH YLCELLULOSE NA 0.5% SOLN,OPH INSTILL 1 DROP INTO EACH EYE FOUR TIMES A DAY FOR DRY EYE OPHTHA LMIC ACTIVE 09/25/2024 [id number] 4 Cecily GEE ICHELE 2023 45 [facility] CETIRIZINE HCL 10MG TAB TAKE ONE TABLET BY MOUTH DAILY ORAL ACTIVE BRITT, [facility] CHOLECALCIF FORTINO 25MCG (1,000UNIT) TAB TAKE ONE TABLET BY MOUTH DAILY ORAL ACTIVE BRITT, [facility] LEVOTHYROXI NE NA 125MCG TAB (SYNTHROID) TAKE ONE TABLET BY MOUTH EVERY MORNING 30 MINUTES BEFORE BREAKFAS T ORAL ACTIVE LEN [facility]ENDOZA 2023 [facility] LISINOPRIL 5MG TAB TAKE ONE TABLET BY MOUTH ONCE DAILY TO CONTROL BLOOD PRESSURE ORAL 01/27/2024 [id number] LEN MENDOZA 2022 90 [facility] [place] POTASSIUM 100MG TAB TAKE ONE TABLET BY MOUTH ONCE DAILY ORAL ACTIVE LEN MENDOZA 2017 [facility] METOPROLOL SUCCINATE 50MG TAB,SA TAKE ONE TABLET BY MOUTH ONCE DAILY ORAL ACTIVE LEN MENDOZA 2022 [facility] OTHER CAP/TAB TAKE 5 MG BY MOUTH DAILY ORAL ACTIVE BALWINDER, [facility] 2016 [facility] TAMSULOSIN HCL 0.4MG CAP TAKE 1 CAPSULE BY MOUTH ONCE DAILY ORAL ACTIVE LEN MENDOZA 2019 [facility] IELD Immunizations Combined list of available immunizations from the Department of Defense and Veterans Affairs facilities. 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 Status Comments Source INFLUENZA, HIGH-DOSE, TRIVALENT, PF 2023 SHE REID SSA H RIGHT DELTO ID [id number] 135 complet ed [facility] INFLUENZA, HIGH-DOSE, QUADRIVALENT 2022 [employer]O [employer]ANKS LEFT DELTO ID [id number] 197 complet ed [facility] COVID-19 (MODERNA), MRNA, LNP-S, PF, 100 MCG/0.5ML DOSE OR 50 MCG/0.25ML DOSE 3 2021 207 complet ed MOD; [id number]; 2 [facility] COVID-19 (MODERNA), MRNA, LNP-S, PF, 100 MCG OR 50 MCG DOSE 3 2020 207 complet ed MOD; [id number]; 2 [facility] INFLUENZA VACCINE, QUADRIVALENT, ADJUVANTED 2020 205 complet ed [facility] COVID-19 (MODERNA), MRNA, LNP-S, PF, 100 MCG/0.5 ML DOSE 2 2020 207 complet ed MOD; [id number]; 1 [facility] COVID-19 (MODERNA), MRNA, LNP-S, PF, 100 MCG/0.5 ML DOSE 1 2020 207 complet ed MOD; [id number]; 1 [facility] [...] Left Deltoid [facility] PNEUMOCOCCAL CONJUGATE PCV 13 2017 [...] Jul 12, 2023 10:12 AM Reporting Lab: [facility] [address] [address] Performing Lab: [facility] [place] [facility] [address] [facility] [address] [facility] [place] [facility] LIPID PANEL, NON FASTING CHOLESTEROL [MASS/VOLUM E] IN SERUM OR PLASMA 119 mg/dL 07/18 Specimen Type: SERUM No comment entered. Ordering Provider: ORACIO MENDOZA Report Released Date/Time: Jul 12, 2023 10:12 AM Reporting Lab: [facility] [address] [address] Performing Lab: [facility] [place] [facility] [address] [facility] [address] [facility]PUSTRN [place] [facility] LIPID PANEL, NON FASTING TRIGLYCERID E [MASS/VOLUM E] IN SERUM OR PLASMA 48 mg/dL 0 - 150 07/18 Specimen Type: SERUM No comment entered. Ordering Provider: ORACIO MENDOZA Report Released Date/Time: Jul 12, 2023 10:12 AM Reporting Lab: [facility] [place] [address] [address] Performing Lab: [facility] [place] [facility] [address] [facility] [address] [facility]N [facility] LIPID PANEL, NON FASTING CHOLESTEROL IN LDL [MASS/VOLUM E] IN SERUM OR PLASMA BY CALCULATION 63 mg/dL 0 - 129 07/18 Specimen Type: SERUM No comment entered. Ordering Provider: ORACIO MENDOZA Report Released Date/Time: Jul 12, 2023 10:12 AM Reporting Lab: [facility] [place] [facility] [address] [facility] [address] Performing Lab: [facility] [address] [facility] [address] [facility] TRN [facility] LIPID PANEL, NON FASTING CHOLESTEROL .TOTAL/CHOL ESTEROL IN HDL [MASS RATIO] IN SERUM OR PLASMA 2.6 07/18 Specimen Type: SERUM No comment entered. Ordering Provider: ORACIO MENDOZA Report Released Date/Time: Jul 12, 2023 10:12 AM Reporting Lab: [facility] [place] [facility] [address] [facility] [address] Performing Lab: [facility] [address] [facility] [address] [facility] LIPID PANEL, NON FASTING CHOLESTEROL IN HDL [MASS/VOLUM E] IN SERUM OR PLASMA 46 mg/dL 40 - 60 07/18 Specimen Type: SERUM No comment entered. Ordering Provider: ORACIO MENDOZA Report Released Date/Time: Jul 12, 2023 10:12 AM Reporting Lab: [facility] [place] [facility] [address] [facility] [address] Performing Lab: [facility] [place] [facility] [address] [facility] [address] [facility] [place] [facility] LIVER FUNCTION PROTEIN [MASS/VOLUM E] IN SERUM OR PLASMA 6.7 g/dL 6.0 - 8.3 07/18 Specimen Type: SERUM No comment entered. Ordering Provider: ORACIO MENDOZA Report Released Date/Time: Jul 12, 2023 10:12 AM Reporting Lab: [facility] [place] [facility] [address] [facility] [address] Performing Lab: [facility] [place] [facility] [address] [facility] [address] [facility] [place] [facility] LIVER FUNCTION ALBUMIN [MASS/VOLUM E] IN SERUM OR PLASMA 3.8 g/dL 3.5 - 5.0 07/18 Specimen Type: SERUM No comment entered. Ordering Provider: ORACIO MENDOZA Report Released Date/Time: Jul 12, 2023 10:12 AM Reporting Lab: [facility] [place] [facility] [address] [facility] [address] Performing Lab: [facility] [place] [facility] [address] [facility] [address] [facility] [place] [facility] LIVER FUNCTION ALKALINE PHOSPHATASE [ENZYMATIC ACTIVITY/VO LUME] IN SERUM OR PLASMA 55 U/L 40 - 150 07/18 Specimen Type: SERUM No comment entered. Ordering Provider: ORACIO MENDOZA Report Released Date/Time: Jul 12, 2023 10:12 AM Reporting Lab: [facility] [place] [facility] [address] [facility] [address] Performing Lab: [facility] [place] [facility] [address] [facility] [address] [facility] [place] [facility] LIVER FUNCTION ASPARTATE AMINOTRANSF ERASE [ENZYMATIC ACTIVITY/VO LUME] IN SERUM OR PLASMA 26 U/L 5 - 34 07/18 Specimen Type: SERUM No comment entered. Ordering Provider: ORACIO MENDOZA Report Released Date/Time: Jul 12, 2023 10:12 AM Reporting Lab: [facility] [place] [facility] [address] [facility] [address] Performing Lab: [facility] [place] [facility] [address] [facility] [address] [facility] [place] [facility] LIVER FUNCTION ALANINE AMINOTRANSF ERASE [ENZYMATIC ACTIVITY/VO LUME] IN SERUM OR PLASMA 26 U/L 07/18 Specimen Type: SERUM No comment entered. Ordering Provider: ORACIO MENDOZA Report Released Date/Time: Jul 12, 2023 10:12 AM Reporting Lab: [facility] [place] [facility] [address] [facility] [address] Performing Lab: [facility] [place] [facility] [address] [facility] [address] [facility] [place] [facility] LIVER FUNCTION BILIRUBIN.T OTAL [MASS/VOLUM E] IN SERUM OR PLASMA 0.6 mg/dL 0.2 - 1.2 07/18 Specimen Type: SERUM No comment entered. Ordering Provider: ORACIO MENDOZA Report Released Date/Time: Jul 12, 2023 10:12 AM Reporting Lab: [facility] [place] [facility] [address] [facility] [address] Performing Lab: [facility] [place] [address] [address] [facility] [place] [facility] BASIC METABOLIC PANEL (non-fast ing) UREA NITROGEN [MASS/VOLUM E] IN SERUM OR PLASMA 19 mg/dL 7 - 07/18 Specimen Type: SERUM No comment entered. Ordering Provider: ORACIO MENDOZA Report Released Date/Time: Jul 12, 2023 10:12 AM Reporting Lab: [facility] [place] [facility] [address] [facility] [address] Performing Lab: [facility] [place] [address] [address] [facility] [place] [facility] BASIC METABOLIC PANEL (non-fast ing) GLUCOSE [MASS/VOLUM E] IN SERUM OR PLASMA 95 mg/dL 65 - 100 07/18 Specimen Type: SERUM No comment entered. Ordering Provider: ORACIO MENDOZA Report Released Date/Time: Jul 12, 2023 10:12 AM Reporting Lab: [facility] [place] [facility] [address] [facility] [address] Performing Lab: [facility] [place] [address] [address] [facility] [place] [facility] BASIC METABOLIC PANEL (non-fast ing) SODIUM [MOLES/VOLU ME] IN SERUM OR PLASMA 142 mmol/L 135 - 145 07/18 Specimen Type: SERUM No comment entered. Ordering Provider: ORACIO MENDOZA Report Released Date/Time: Jul 12, 2023 10:12 AM Reporting Lab: [facility] CAMPUSTRN [facility] [address] Performing Lab: [facility]ITALR[facility] [place] [facility] CAMPUSTRN [facility] SYSTEMUSE[address] [address] [facility]ITALRWIREGRASS MEDICAL CENTERN [facility]USE [facility] BASIC METABOLIC PANEL (non-fast ing) POTASSIUM [MOLES/VOLU ME] IN SERUM OR PLASMA 4.7 mmol/L 3.5 - 5.0 07/18 Specimen Type: SERUM No comment entered. Ordering Provider: ORACIO MENDOZA Report Released Date/Time: Jul 12, 2023 10:12 AM Reporting Lab: [facility]ITALR[facility] CAM[facility]STRN [facility] SYSTEMUSE[address] [address] Performing Lab: [facility]ITALRL TRN [facility] SYSTEMUSE[address] [address] [facility] BASIC METABOLIC PANEL (non-fast ing) CHLORIDE [MOLES/VOLU ME] IN SERUM OR PLASMA 107 mmol/L 100 - 110 07/18 Specimen Type: SERUM No comment entered. Ordering Provider: ORACIO MENDOZA Report Released Date/Time: Jul 12, 2023 10:12 AM Reporting Lab: [facility] TRN [address] [address] Performing Lab: [facility]ITALRL TRN [facility] [address] [facility]ITALRWIREGRASS MEDICAL CENTERN [facility]USE [facility] BASIC METABOLIC PANEL (non-fast ing) CARBON DIOXIDE, TOTAL [MOLES/VOLU ME] IN SERUM OR PLASMA 28 meq/L 20 - 30 07/18 Specimen Type: SERUM No comment entered. Ordering Provider: ORACIO MENDOZA Report Released Date/Time: Jul 12, 2023 10:12 AM Reporting Lab: [facility] [address] [address] Performing Lab: [facility] [place] [facility] [address] [facility] [address] [facility] [place] [facility] BASIC METABOLIC PANEL (non-fast ing) CREATININE [MASS/VOLUM E] IN SERUM OR PLASMA 0.90 mg/dL 0.50 - 1.40 07/18 Specimen Type: SERUM No comment entered. Ordering Provider: ORACIO MENDOZA Report Released Date/Time: Jul 12, 2023 10:12 AM Reporting Lab: [facility] [place] [facility] [address] [facility] [address] Performing Lab: [facility] [place] [facility] [address] [facility] [address] [facility] [place] [facility] BASIC METABOLIC PANEL (non-fast ing) GLOMERULAR FILTRATION RATE/1.73 SQ M.PREDICTED [VOLUME RATE/AREA] IN SERUM, PLASMA OR BLOOD BY CREATININE- BASED FORMULA (CKD-EPI 2020) 86 mL/min 60 07/18 Specimen Type: SERUM No comment entered. Ordering Provider: ORACIO MENDOZA Report Released Date/Time: Jul 12, 2023 10:12 AM Reporting Lab: [facility] [place] [facility] [address] [facility] [address] Performing Lab: [facility] [place] [address] [address] [facility] [place] [facility] CBC LEUKOCYTES [#/VOLUME] IN BLOOD BY AUTOMATED COUNT 7.33 10*3/u L 4.50 - 11.00 07/18 Specimen Type: BLOOD No comment entered. Ordering Provider: ORACIO MENDOZA Report Released Date/Time: Jul 12, 2023 10:12 AM Reporting Lab: [facility] [place] [facility] [address] [facility] [address] Performing Lab: [facility] [place] [address] [address] [facility] [place] [facility] CBC ERYTHROCYTE S [#/VOLUME] IN BLOOD BY AUTOMATED COUNT 4.94 10*6/u L 4.23 - 5.66 07/18 Specimen Type: BLOOD No comment entered. Ordering Provider: ORACIO MENDOZA Report Released Date/Time: Jul 12, 2023 10:12 AM Reporting Lab: [facility] [place] [facility] [address] [facility] [address] Performing Lab: [facility] [place] [facility] [address] [facility] [address] [facility] [place] [facility] CBC HEMOGLOBIN [MASS/VOLUM E] IN BLOOD 15.1 g/dL 12.8 - 17 07/18 Specimen Type: BLOOD No comment entered. Ordering Provider: ORACIO MENDOZA Report Released Date/Time: Jul 12, 2023 10:12 AM Reporting Lab: [facility] [place] [facility] [address] [facility] [address] Performing Lab: [facility] [place] [address] [address] [facility] [place] [facility] CBC HEMATOCRIT [VOLUME FRACTION] OF BLOOD BY AUTOMATED COUNT 46.2 39.2 - 50.4 07/18 Specimen Type: BLOOD No comment entered. Ordering Provider: ORACIO MENDOZA Report Released Date/Time: Jul 12, 2023 10:12 AM Reporting Lab: [facility] [place] [facility] [address] [facility] [address] Performing Lab: [facility] [place] [facility] [address] [facility] [address] [facility] [place] [facility] CBC MCV [ENTITIC VOLUME] BY AUTOMATED COUNT 93.5 fL 82 - 99 07/18 Specimen Type: BLOOD No comment entered. Ordering Provider: ORACIO MENDOZA Report Released Date/Time: Jul 12, 2023 10:12 AM Reporting Lab: [facility] [place] [facility] [address] [facility] [address] Performing Lab: [facility] [place] [facility] [address] [facility] [address] [facility] [place] [facility] CBC MCHC [MASS/VOLUM E] BY AUTOMATED COUNT 32.7 g/dL 30.8 - 35.1 07/18 Specimen Type: BLOOD No comment entered. Ordering Provider: ORACIO MENDOZA Report Released Date/Time: Jul 12, 2023 10:12 AM Reporting Lab: [facility] [place] [facility] [address] [facility] [address] Performing Lab: [facility] [place] [facility] [address] [facility] [address] [facility] [place] [facility] CBC PLATELETS [#/VOLUME] IN BLOOD BY AUTOMATED COUNT 181 10*3/u L 140 - 360 07/18 Specimen Type: BLOOD No comment entered. Ordering Provider: ORACIO MENDOZA Report Released Date/Time: Jul 12, 2023 10:12 AM Reporting Lab: [facility] [place] [address] [address] Performing Lab: [facility] [place] [address] [address] [facility] [place] [facility] CBC ERYTHROCYTE DISTRIBUTIO N WIDTH [RATIO] BY AUTOMATED COUNT 13.2 12.0 - 16.0 07/18 Specimen Type: BLOOD No comment entered. Ordering Provider: ORACIO MENDOZA Report Released Date/Time: Jul 12, 2023 10:12 AM Reporting Lab: [facility] [place] [address] [address] Performing Lab: [facility] [place] [address] [address] [facility] [place] [facility] CBC MCH [ENTITIC MASS] BY AUTOMATED COUNT 30.6 pg 26.2 - 32.6 07/18 Specimen Type: BLOOD No comment entered. Ordering Provider: ORACIO MENDOZA Report Released Date/Time: Jul 12, 2023 10:12 AM Reporting Lab: [facility] [place] [address] [address] Performing Lab: [facility] [place] [address] [address] [facility]STRN [place] [facility] THYROID T4 FREE(FT4) THYROXINE (T4) FREE [MASS/VOLUM E] IN SERUM OR PLASMA 1.30 ng/dL 0.6 - 1.6 01/24 Specimen Type: SERUM No comment entered. Ordering Provider: ORACIO MENDOZA Report Released Date/Time: Jan 15, 2023 04:07 PM Reporting Lab: [facility] [place] [facility] [address] [facility] [address] Performing Lab: [facility] [place] [facility] [address] [facility] [address] [facility]ITALRWIREGRASS [facility] CENTERN [place] [facility] TSH THYROTROPIN [UNITS/VOLU ME] IN SERUM OR PLASMA 0.36 u[IU]/ mL 0.35 - 5.00 01/24 Specimen Type: SERUM No comment entered. Ordering Provider: ORACIO MENDOZA Report Released Date/Time: Jan 15, 2023 04:07 PM Reporting Lab: [facility] [place] [facility] [address] [facility] [address] Performing Lab: [facility]ITALR[facility] CAMPUSTRN [facility]ETS [facility] [address] [facility] [address] [facility]ERN [facility] VITAMIN D (25-OH) 25-HYDROXYV ITAMIN D3 [MASS/VOLUM E] IN SERUM OR PLASMA 46 ng/mL 20 - 50 01/24 Specimen Type: SERUM No comment entered. Ordering Provider: ORACIO MENDOZA Report Released Date/Time: Jan 15, 2023 04:07 PM Reporting Lab: [facility] [place] [facility] [address] [facility] [address] Performing Lab: [facility]ITALR[facility] CAMPUSTRN [facility] SYSTEMUSETS [address] [address] [facility]ITALRWIREGRASS [facility]ERN [facility] LIPID PANEL FASTING CHOLESTEROL [MASS/VOLUM E] IN SERUM OR PLASMA 109 mg/dL 01/24 Specimen Type: SERUM No comment entered. Ordering Provider: ORACIO MENDOZA Report Released Date/Time: Jan 15, 2023 04:07 PM Reporting Lab: [facility] [place] [facility] [address] [facility] [address] Performing Lab: [facility] [place] [place] [facility] [address] [facility] [address] [facility] [place] [facility] LIPID PANEL FASTING TRIGLYCERID E [MASS/VOLUM E] IN SERUM OR PLASMA 50 mg/dL 0 - 150 01/24 Specimen Type: SERUM No comment entered. Ordering Provider: ORACIO MENDOZA Report Released Date/Time: Jan 15, 2023 04:07 PM Reporting Lab: [facility] [place] [place] [facility] [address] [facility] [address] Performing Lab: [facility] [place] [facility] [address] [facility] [address] [facility]ITALR[facility]STR[facility] LIPID PANEL FASTING CHOLESTEROL IN LDL [MASS/VOLUM E] IN SERUM OR PLASMA BY CALCULATION 59 mg/dL 0 - 129 01/24 Specimen Type: SERUM No comment entered. Ordering Provider: ORACIO MENDOZA Report Released Date/Time: Jan 15, 2023 04:07 PM Reporting Lab: [facility] [place] [facility] [address] [facility] [address] Performing Lab: [facility] [place] [facility] [address] [facility] [address] [facility]ITALR[facility]STRN [facility] LIPID PANEL FASTING CHOLESTEROL .TOTAL/CHOL ESTEROL IN HDL [MASS RATIO] IN SERUM OR PLASMA 2.7 01/24 Specimen Type: SERUM No comment entered. Ordering Provider: ORACIO MENDOZA Report Released Date/Time: Jan 15, 2023 04:07 PM Reporting Lab: [facility] [place] [facility] [address] [facility] [address] Performing Lab: [facility] [place] [facility] [address] [facility] [address] [facility]N [facility] LIPID PANEL FASTING CHOLESTEROL IN HDL [MASS/VOLUM E] IN SERUM OR PLASMA 40 mg/dL 40 - 60 01/24 Specimen Type: SERUM No comment entered. Ordering Provider: ORACIO MENDOZA Report Released Date/Time: Jan 15, 2023 04:07 PM Reporting Lab: [facility] [place] [facility] [address] [facility] [address] Performing Lab: [facility] [place] [facility] [address] [facility] [address] [facility] CBC LEUKOCYTES [#/VOLUME] IN BLOOD BY AUTOMATED COUNT 6.50 10*3/u L 4.50 - 11.00 01/24 Specimen Type: BLOOD No comment entered. Ordering Provider: ORACIO MENDOZA Report Released Date/Time: Jan 15, 2023 04:07 PM Reporting Lab: [facility] [address] [facility] [phone] Performing Lab: [facility] [address] [facility] [phone] [facility] CBC ERYTHROCYTE S [#/VOLUME] IN BLOOD BY AUTOMATED COUNT 4.73 10*6/u L 4.23 - 5.66 01/24 Specimen Type: BLOOD No comment entered. Ordering Provider: ORACIO MENDOZA Report Released Date/Time: Jan 15, 2023 04:07 PM Reporting Lab: [facility] [address] [facility] [address] Performing Lab: [facility] [address] [place] [phone] [facility] CBC HEMOGLOBIN [MASS/VOLUM E] IN BLOOD 14.7 g/dL 12.8 - 17 01/24 Specimen Type: BLOOD No comment entered. Ordering Provider: ORACIO MENDOZA Report Released Date/Time: Jan 15, 2023 04:07 PM Reporting Lab: [facility] [address] [facility] [address] Performing Lab: [facility] [address] [place] [phone] [facility] CBC HEMATOCRIT [VOLUME FRACTION] OF BLOOD BY AUTOMATED COUNT 44.2 39.2 - 50.4 01/24 Specimen Type: BLOOD No comment entered. Ordering Provider: ORACIO MENDOZA Report Released Date/Time: Jan 15, 2023 04:07 PM Reporting Lab: [facility] [address] [facility] [address] Performing Lab: [facility] [address] [facility] [address] [facility] CBC MCV [ENTITIC VOLUME] BY AUTOMATED COUNT 93.4 fL 82 - 99 01/24 Specimen Type: BLOOD No comment entered. Ordering Provider: ORACIO MENDOZA Report Released Date/Time: Jan 15, 2023 04:07 PM Reporting Lab: [facility] [facility] [address] [facility] [address] Performing Lab: [facility] [place] [facility] [address] [facility] [address] [facility] CBC MCHC [MASS/VOLUM E] BY AUTOMATED COUNT 33.3 g/dL 30.8 - 35.1 01/24 Specimen Type: BLOOD No comment entered. Ordering Provider: ORACIO MENDOZA Report Released Date/Time: Jan 15, 2023 04:07 PM Reporting Lab: [facility] [address] [facility] [address] Performing Lab: [facility] [place] [facility] [address] [facility] [address] [facility] CBC PLATELETS [#/VOLUME] IN BLOOD BY AUTOMATED COUNT 194 10*3/u L 140 - 360 01/24 Specimen Type: BLOOD No comment entered. Ordering Provider: ORACIO MENDOZA Report Released Date/Time: Jan 15, 2023 04:07 PM Reporting Lab: [facility] [place] [facility] [address] [facility] [address] Performing Lab: [facility] [address] [address] [facility] CBC ERYTHROCYTE DISTRIBUTIO N WIDTH [RATIO] BY AUTOMATED COUNT 13.0 12.0 - 16.0 01/24 Specimen Type: BLOOD No comment entered. Ordering Provider: ORACIO MENDOZA Report Released Date/Time: Jan 15, 2023 04:07 PM Reporting [facility] [place] [facility] [address] [facility] [address] Performing Lab: [facility] [place] [facility] [address] [facility] [address] [facility] [facility] CBC MCH [ENTITIC MASS] BY AUTOMATED COUNT 31.1 pg 26.2 - 32.6 01/24 Specimen Type: BLOOD No comment entered. Ordering Provider: ORACIO MENDOZA Report Released Date/Time: Jan 15, 2023 04:07 PM Reporting Lab[facility] [place] [facility] [address] [facility] [address] Performing Lab: [facility] [place] [facility] [address] [facility] [address] [facility] [place] [facility] Vital Signs Combined list of [...] [facility] 2) Encounters from the Department of Defense facilities going back up to 280 months. Location Location Details Encounter Type Encounter Number Reason For Visit Attending Provider ADM Date DC Date Status Disposition Source [facility] EXERCISE CLASS [id number] Diagnos is: ICD-10- CM Z72.3 Lack of physica l exercis e
Cecily ONEILLIN 09/20 [facility] [place] GROUP BEHAVE COUNS 2-10 [id number] [id number] Diagnos is: ICD-10- CM E66.09 Other obesity due to excess calorie s
EVAN KRAMER P 09/21 [place] [facility] EXERCISE CLASS [id number] Diagnos is: ICD-10- CM Z72.3 Lack of physica l exercis e
ILIANA UNDERWOOD 09/21 [facility] EXERCISE CLASS [id number] Diagnos is: ICD-10- CM Z72.3 Lack of physica l exercis e
Cecily ONEILL SHANICE 09/22 [facility] EXERCISE CLASS [id number] Diagnos is: ICD-10- CM Z72.3 Lack of physica l exercis e
CRISTAL LAZCANO LLCourtney M 09/25 [facility] EXERCISE CLASS [id number] Diagnos is: ICD-10- CM Z72.3 Lack of physica l exercis e
CRISTAL LAZCANO LLY M 10/02 [facility] Outpatient Encounter [id number] 10/03 [facility] Outpatient Encounter [id number] REJIGuzman JON Ghassan 10/03 [facility] [place] GROUP BEHAVE COUNS 2-10 [id number] [id number] Diagnos is: ICD-10- CM E66.09 Other obesity due to excess calorie s
EVAN KRAMER P 10/05 [place] [facility] EXERCISE CLASS [id number] Diagnos is: ICD-10- CM Z72.3 Lack of physica l exercis e
CRISTAL LAZCANO M 10/06 [facility] [id number] Diagnos is: ICD-10- CM E66.3 Overwei ght<br/ > GORDON PATHAK 10/12 [place] [facility] EXERCISE CLASS [id number] Diagnos is: ICD-10- CM Z72.3 Lack of physica l exercis e
CRISTAL LAZCANO M 10/16 [facility] [place] EXERCISE CLASS [id number] Diagnos is: ICD-10- CM Z72.3 Lack of physica l exercis e
Cecily ONEILL 10/18 [facility] [place] WEIGHT MGMT CLASS [id number] Diagnos is: ICD-10- CM Z68.29 Body mass index [BMI] 29.0-29 .9, adult<b r/> GORDON PATHAK 10/19 [place] [facility] EXERCISE CLASS [id number] Diagnos is: ICD-10- CM Z72.3 Lack of physica l exercis e
LARISA COATES 10/20 [facility] EXERCISE CLASS [id number] Diagnos is: ICD-10- CM Z72.3 Lack of physica l exercis e
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
LARISA COATES 10/24 [facility] EXERCISE CLASS [id number] Diagnos is: ICD-10- CM Z72.3 Lack of physica l exercis e
Cecily ONEILL 10/25 [facility] [place] [place] WEIGHT MGMT CLASS [id number] Diagnos is: ICD-10- CM Z68.29 Body mass index [BMI] 29.0-29 .9, adult<b r/> GORDON PATHAK 10/26 [place] [facility] EXERCISE CLASS [id number] [id number] Diagnos is: ICD-10- CM Z72.3 Lack of physica l exercis e
LARISA COATES 10/27 [facility] [place] EXERCISE CLASS [id number] Diagnos is: ICD-10- CM Z72.3 Lack of physica l exercis e
Cecily ONEILL SHANICE 10/30 [facility] Outpatient Encounter [id number] 10/31 [facility] EXERCISE CLASS [id number] Diagnos is: ICD-10- CM Z72.3 Lack of physica l exercis e
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
LARISA COATES 11/17 [facility] [place] [place] [facility] EXERCISE CLASS [id number] Diagnos is: ICD-10- CM Z72.3 Lack of physica l exercis e
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
Cecily ONEILL 11/22 [facility] [place] GROUP BEHAVE COUNS 2-10 [id number] [id number] Diagnos is: ICD-10- CM E66.3 Overwei ght<br/ > EVAN KRAMER 11/23 [facility] [place] [facility] [place] [facility] EXERCISE CLASS [id number] [id number] Diagnos is: ICD-10- CM Z72.3 Lack of physica l exercis e
ILIANA UNDERWOOD 11/23 [facility] NUTRITION CLASS [id number] Diagnos is: ICD-10- CM Z71.3 Dietary herb counselor ing and surveil nancy<b r/> RAKESH GRACIA 11/28 [facility] EXERCISE CLASS [id number] [id number] Diagnos is: ICD-10- CM Z72.3 Lack of physica l exercis e
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
CRISTAL LAZCANO M 12/15 [facility] [place] [place] EXERCISE CLASS [id number] [id number] Diagnos is: ICD-10- CM Z72.3 Lack of physica l exercis e
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
CRISTAL LAZCANO M 12/25 [facility] [place] [place] [facility] [place] Outpatient Encounter [id number] 12/28 [facility] [place] [place] WEIGHT MGMT CLASS [id number] [id number] Diagnos is: ICD-10- CM Z68.29 Body mass index [BMI] 29.0-29 .9, adult<b r/> GORDON PATHAK 01/04 [place] [facility] BEHAVE COUNS 2-10 [id number] [id number] Diagnos is: ICD-10- CM E66.3 Overwei ght<br/ > EVAN KRAMER 01/11 [place] [facility] EXERCISE CLASS [id number] [id number] Diagnos is: ICD-10- CM Z72.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
CRISTAL LAZCANO LLY M 01/15 [facility] EXERCISE CLASS [id number] [id number] Diagnos is: ICD-10- CM Z72.3 Lack of physica l exercis e
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
LARISA COATES 01/19 [facility] EXERCISE CLASS [id number] Diagnos is: ICD-10- CM Z72.3 Lack of physica l exercis e
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
CRISTAL LAZCANO 01/26 [facility] [place] [place] OFFICE O/P EST MOD 30-39 MIN [id number] [id number] Diagnos is: ICD-10- CM M17.9 Osteoar thritis of knee, unspeci fied
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
CRISTAL LAZCANO M 01/29 [facility] [place] [place] [facility] PT EDUCATION NOC GROUP [id number] Diagnos is: ICD-10- CM Z71.3 Dietary herb counselor ing and surveil nancy<b r/> RAKESH GRACIA 01/30 [facility] [place] GROUP BEHAVE COUNS 2-10 [id number] [id number] Diagnos is: ICD-10- CM E66.09 Other obesity due to excess calorie s
EVAN KRAMER P 02/01 [facility] [place] [facility] EXERCISE CLASS [id number] [id number] Diagnos is: ICD-10- CM Z72.3 Lack of physica l exercis e
CRISTAL LAZCANO M 02/05 [facility] [place] [facility] [place] EXERCISE CLASS [id number] [id number] Diagnos is: ICD-10- CM Z72.3 Lack of physica l exercis e
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
CRISTAL LAZCANO M 02/09 [facility] [place] [facility] [place] [facility] EXERCISE CLASS [id number] [id number] Diagnos is: ICD-10- CM Z72.3 Lack of physica l exercis e
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
LARISA COATES 02/23 [facility] EXERCISE CLASS [id number] [id number] Diagnos is: ICD-10- CM Z72.3 Lack of physica l exercis e
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
SYDNEYCRISTAL LEAL M 03/05 [facility] [place] [facility] En[facility] [id number] 03/05 [facility] SELF-MGMT EDUC & TRAIN 1 [place] [id number] [id number] Diagnos is: ICD-10- CM G47.33 Obstruc tive sleep apnea (adult) (pediat amparo)
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
ILIANA UNDERWOOD 03/07 [facility] [place] [place] [facility] LD GROUP BEHAVE COUNS 2-10 [id number] [id number] Diagnos is: ICD-10- CM E66.09 Other obesity due to excess calorie s
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
Cecily ONEILL 03/14 [facility] [place] [place] [facility] GROUP BEHAVE COUNS 2-10 [id number] [id number] Diagnos is: ICD-10- CM E66.3 Overwei ght<br/ > EVAN KRAMER CHABOBBY P 03/15 [place] [facility] [place] [facility] SLEEP STUDY UNATT&RESP EFFT [id number] [id number] Diagnos is: ICD-10- CM G47.33 Obstruc tive sleep apnea (adult) (pediat amparo)
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
Cecily ONEILL 03/28 [facility] [place] [facility] SLEEP STUDY UNATT&RESP EFFT 38194-6.68 [id number] Diagnos is: ICD-10- CM G47.33 Obstruc tive sleep apnea (adult) (pediat amparo)
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
Cecily ONEILL 04/04 [facility] [place] [facility] LD GROUP BEHAVE COUNS 2-10 30981-8.63 [id number] Diagnos is: ICD-10- CM E66.09 Other obesity due to excess calorie s
EVAN KRAMER P 04/05 [place] [facility] LD GROUP BEHAVE COUNS 2-10 99581-9.63 [id number] Diagnos is: ICD-10- CM E66.3 Overwei ght<br/ > EVAN KRAMER P 04/05 [place] [facility] [place] [facility] PT EDUCATION NOC GROUP 97893-3.63 [id number] Diagnos is: ICD-10- CM Z71.3 Dietary herb counselor ing and surveil nancy<b r/> RAKESH GRACIA 04/10 [facility] [place] [facility] WEIGHT MGMT CLASS 35869-9.63 [id number] Diagnos is: ICD-10- CM Z68.29 Body mass index [BMI] 29.0-29 .9, adult<b r/> GORDON PATHAK 04/12 [facility] [place] [facility] [place] [facility] EXERCISE CLASS 29657-5.63 [id number] Diagnos is: ICD-10- CM 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
Cecily ONEILL SHANICE 05/09 [facility] [place] LD GROUP BEHAVE COUNS 2-10 59934-6.63 [id number] Diagnos is: ICD-10- CM E66.09 Other obesity due to excess calorie s
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
CRISTAL LAZCANO M 05/21 [facility] [place] LD GROUP BEHAVE COUNS 2-10 73233-9.63 [id number] Diagnos is: ICD-10- CM E66.09 Other obesity due to excess calorie s
[place]RAMER P [place] [facility] PT EDUCATION NOC GROUP [id number] [id number] Diagnos is: ICD-10- CM Z71.3 Dietary herb counselor ing and surveil nancy<b r/> RAKESH GRACIA LIE CHENTE 05/28 [facility] [place] GROUP BEHAVE COUNS 2-10 60133-4.63 [id number] Diagnos is: ICD-10- CM E66.09 Other obesity due to excess calorie s
EVAN KRAMER CHABOBBY P 05/30 [facility] LD GROUP BEHAVE COUNS 2-10 47050-3.63 [id number] Diagnos is: ICD-10- CM E66.09 Other obesity due to excess calorie s
EVAN KRAMER CHABOBBY P 06/06 [facility] PT EDUCATION NOC GROUP 21996-0.63 [id number] Diagnos is: ICD-10- CM Z71.3 Dietary herb counselor ing and surveil nancy<b r/> RAKESH GRACIA LIE CHENTE 06/11 [facility] [place] LD WEIGHT MGMT CLASS 30714-3.63 [id number] Diagnos is: ICD-10- CM E66.3 Overwei ght<br/ > GORDON PATHAK 06/13 [facility] IELD [facility] LD WEIGHT MGMT CLASS 87440-0.63 [id number] Diagnos is: ICD-10- CM Z68.29 Body mass index [BMI] 29.0-29 .9, adult<b r/> GORDON PATHAK 06/20 [facility] [place] [facility] PT EDUCATION NOC GROUP 37783-5.63 [id number] Diagnos is: ICD-10- CM Z71.3 Dietary herb counselor ing and surveil nancy<b r/> RAKESH GRACIA 06/25 [facility] [place] LD WEIGHT MGMT CLASS 16515-4.63 [id number].[id number] Diagnos is: ICD-10- CM Z68.29 Body mass index [BMI] 29.0-29 .9, adult<b r/> GORDON PATHAK A 06/27 [facility] LD GROUP BEHAVE COUNS 2-10 74924-1.63 [id number] Diagnos is: ICD-10- CM E66.3 Overwei ght<br/ > EVAN KRAMER P 07/04 [facility] WEIGHT MGMT CLASS 94974-1.63 [id number].[id number] Diagnos is: ICD-10- CM Z68.29 Body mass index [BMI] 29.0-29 .9, adult<b r/> GORDON PATHAK 07/18 [place] [facility] [place] [facility] OFFICE O/P EST MOD 30 MIN 50219-3.63 [id number] Diagnos is: ICD-10- CM K21.9 Gastro- esophag eal reflux disease without esophag itis
Guzman MENDOZA 07/22 [facility] [place] Outpatient Encounter [id number] [id number] 07/23 [facility] [place] [place] GROUP BEHAVE COUNS 2-10 15777-5.63 [id number] Diagnos is: ICD-10- CM E66.3 Overwei ght<br/ > EVAN KRAMER P 07/25 [place] [facility] PT EDUCATION NOC GROUP 54930-6.63 [id number] Diagnos is: ICD-10- CM Z71.3 Dietary herb counselor ing and surveil nancy<b r/> RAKESH GRACIA 07/30 [facility] [place] LD GROUP BEHAVE COUNS 2-10 73659-9.63 [id number].[id number] Diagnos is: ICD-10- CM E66.3 Overwei ght<br/ > EVAN KRAMER P 08/01 [facility] 2-10 84070-6.63 [id number] Diagnos is: ICD-10- CM E66.3 Overwei ght<br/ > EVAN KRAMER JOSH P 08/08 [facility] [place] [facility] EXERCISE CLASS 78174-7.63 [id number] Diagnos is: ICD-10- CM 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
Cecily ONEILL 09/04 [facility] [place] [place] WEIGHT MGMT CLASS 35705-9.63 [id number].[id number] Diagnos is: ICD-10- CM E66.09 Other obesity due to excess calorie s
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
CRISTAL LAZCANO M 09/06 [facility] [place] [facility] BEHAVE COUNS 2-10 37435-4.63 [id number] Diagnos is: ICD-10- CM E66.09 Other obesity due to excess calorie s
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
LARISA COATES 09/13 [facility] [place] [place] [place] WEIGHT MGMT CLASS 02036-6.63 [id number] Diagnos is: ICD-10- CM Z68.30 Body mass index [BMI] 30.0-30 .9, adult<b r/> GORDON PATHAK 09/19 [place] [facility] EXERCISE CLASS 91583-7.63 [id number] Diagnos is: ICD-10- CM Z72.3 Lack of physica l exercis e
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
CRISTAL LAZCANO M 09/23 [facility] [place] [address]-9.63 [id number] Diagnos is: ICD-10- CM L71.8 Other rosacea
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
Cecily ONEILL 09/25 [facility] EXERCISE CLASS 54856-1.63 [id number] Diagnos is: ICD-10- CM Z72.3 Lack of physica l exercis e
CRISTAL LAZCANO M 09/30 [facility] [place] [facility] [place] LD GROUP BEHAVE COUNS 2-10 18284-6.63 [id number].[id number] Diagnos is: ICD-10- CM E66.09 Other obesity due to excess calorie s
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
CRISTAL LAZCANO LLY M 10/14 [facility] [place] EXERCISE CLASS 79095-6.63 1. 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
Cecily ONEILL 10/16 [facility] [place] GROUP BEHAVE COUNS 2-10 71155-0.63 1BY.[id number] Diagnos is: ICD-10- CM E66.09 Other obesity due to excess calorie s
EVAN KRAMER P 10/17 [facility] EXERCISE CLASS 88591-7.63 [id number] Diagnos is: ICD-10- CM Z72.3 Lack of physica l exercis e
CRISTAL LAZCANO LLY M 10/18 [facility] EXERCISE CLASS 66677-9.63 1. 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
NENOKE LLY M 10/21 [facility] [place] Outpatient Encounter [id number] [id number] Guzman MENDOZA 10/22 [facility] POS AIRWAY PRESSURE FILTER 18826-1.63 1. Diagnos is: ICD-10- CM G47.30 Sleep apnea, unspeci fied
ST KATHARINA ARVIZU E P 10/22 [facility] EXERCISE CLASS 77858-3.63 1. 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
Cecily ONEILL 10/23 [facility] [place] [facility] BHV IVNTJ GRP EA ADDL 66225-4.63 [id number].[id number] Diagnos is: ICD-10- CM Z68.30 Body mass index [BMI] 30.0-30 .9, adult<b r/> GORDON PATHAK 10/24 [place] [facility] UNLISTED PHYSCL MED/[place]X [address]-7.63 [id number] Diagnos is: ICD-10- CM Z72.3 Lack of physica l exercis e
LARISA COATES 10/25 [facility] EXERCISE CLASS 60972-1.63 1. 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
CRISTAL LAZCANO 10/25 [facility] Outpatient Encounter [id number] [id number] 10/25 [facility] Outpatient Encounter [id number] [id number] 10/25 [facility] EXERCISE CLASS 67165-7.63 [id number] Diagnos is: ICD-10- CM Z72.3 Lack of physica l exercis e
CRISTAL LAZCANO M 10/28 [facility] [place] [facility] COLLJ & INTERPJ DATA EA 30 D 54447-3.63 [id number] Diagnos is: ICD-10- CM G47.30 Sleep apnea, unspeci fied
ST AMANT,KATHARINA E P 10/29 [facility] [place] EXERCISE CLASS 78062-5.63 [id number] Diagnos is: ICD-10- CM Z72.3 Lack of physica l exercis e
Cecily ONEILL 10/30 [facility] [place] [facility] [place] [facility] BHV IVNTJ GRP EA ADDL 85979-6.63 [id number] Diagnos is: ICD-10- CM Z68.30 Body mass index [BMI] 30.0-30 .9, adult<b r/> GORDON PATHAK A 10/31 [place] [facility] [place] [facility] EXERCISE CLASS [id number] [id number] Diagnos is: ICD-10- CM Z72.3 Lack of physica l exercis e
CRISTAL LAZCANO M 11/01 [facility] [place] [facility] EXERCISE CLASS [id number] [id number] Diagnos is: ICD-10- CM Z72.3 Lack of physica l exercis e
CRISTAL LAZCANO M 11/04 [facility] [place] [facility] EXERCISE CLASS [id number] [id number] Diagnos is: ICD-10- CM Z72.3 Lack of physica l exercis e
Cecily ONEILL SHANICE 11/06 [facility] [place] [facility] LD GROUP BEHAVE COUNS 2-10 55343-7.63 [id number] Diagnos is: ICD-10- CM E66.09 Other obesity due to excess calorie s
EVAN KRAMER P 11/07 [facility] EXERCISE CLASS 48974-2.63 1. 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
Cecily ONEILL SHANICE 11/13 [facility] [place] [facility] LD HLTH BHV IVNTJ GRP EA ADDL [id number] [id number] Diagnos is: ICD-10- CM Z68.30 Body mass index [BMI] 30.0-30 .9, adult<b r/> GORDON PATHAK 11/14 [facility] EXERCISE CLASS 84629-3.63 1. 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
Cecily ONEILL SHANICE 11/15 [facility] [place] [facility] EXERCISE CLASS [id number] [id number] Diagnos is: ICD-10- CM Z72.3 Lack of physica l exercis e
CRISTAL LAZCANO 11/18 [facility] [place] [facility] EXERCISE CLASS 75241-0.63 1. 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
Cecily ONEILL SHANICE 11/20 [facility] [place] [facility] LD GROUP BEHAVE COUNS 2-10 72620-5.63 [id number] Diagnos is: ICD-10- CM E66.09 Other obesity due to excess calorie s
EVAN KRAMER P 11/21 [facility] [facility] EXERCISE CLASS 91499-3.63 1. 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
MAICecily SHANICE 11/27 [facility] [place] [facility] HLTH BHV IVNTJ GRP EA ADDL 27431-7.63 [id number] Diagnos is: ICD-10- CM Z68.30 Body mass index [BMI] 30.0-30 .9, adult<b r/> GORDON PATHAK A 11/28 [facility] [place] [facility] EXERCISE CLASS 49746-3.63 1. 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
LARISA COATES 11/29 [facility] [place] [facility] [facility] EXERCISE CLASS 89123-2.63 1. 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
CRISTAL LAZCANO M 12/02 [facility] [place] [facility] COLLJ & INTERPJ DATA EA 30 D 86228-1.63 [id number] Diagnos is: ICD-10- CM G47.30 Sleep apnea, unspeci fied
ST AMANT,KATHARINA E P 12/02 [facility] [place] EXERCISE CLASS 74095-3.63 1. 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
CRISTAL LAZCANO M 12/04 [facility] [place] [facility] GROUP BEHAVE COUNS 2-10 34134-8.63 [id number].[id number] Diagnos is: ICD-10- CM E66.09 Other obesity due to excess calorie s
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 nancy<b r/> RAKESH GRACIA LIE CHENTE 12/10 [facility] [place] [facility] [place] [facility] IVNTJ GRP EA ADDL [id number] [id number] Diagnos is: ICD-10- CM Z73.3 Stress, not elsewhe re classif ied<br/ > CHALOJOSE ALBERTO CORCORAN RA 12/10 [facility] [place] [facility] [place] [facility] AD[facility] [id number] [id number] Diagnos is: ICD-10- CM Z68.30 Body mass index [BMI] 30.0-30 .9, adult<b r/> GORDON PATHAK 12/12 [place] [facility] [place] [facility] EXERCISE CLASS [id number] [id number] Diagnos is: ICD-10- CM Z72.3 Lack of physica l exercis e
CRISTAL LAZCANO M 12/16 [facility] [place] [place] [facility] [place] [facility] IVNTJ GRP EA ADDL [id number] [id number] Diagnos is: ICD-10- CM Z68.30 Body mass index [BMI] 30.0-30 .9, adult<b r/> GORDON PATHAK 12/19 [place] [facility] [place] [facility] PT EDUCATION NOC GROUP [id number] [id number] Diagnos is: ICD-10- CM Z71.3 Dietary herb counselor ing and surveil nancy<b r/> RAKESH GRACIA CHENTE 12/24 [facility] [place] [place] [facility] [place] LD GROUP BEHAVE COUNS 2-10 82250-6.63 [id number] Diagnos is: ICD-10- CM E66.09 Other obesity due to excess calorie s
EVAN KRAMER CHAEL P 12/26 [place] [facility] IV[facility]P EA ADDL [id number] [id number] Diagnos is: ICD-10- CM Z68.30 Body mass index [BMI] 30.0-30 .9, adult<b r/> GORDON PATHAK A 01/02 [place] [facility] PT EDUCATION NOC GROUP 33273-4.63 1. Diagnos is: ICD-10- CM Z71.3 Dietary herb counselor ing and surveil nancy<b r/> RAKESH GRACIA 01/07 [place] [facility] [place] [facility] GROUP BEHAVE COUNS 2-10 21995-5.63 1BY. 38 Diagnos is: ICD-10- CM E66.09 Other obesity due to excess calorie s
EVAN KRAMER CHAEL P 01/09 [facility] IELD [facility] IVNTJ GRP EA ADDL [id number] [id number].[id number] Diagnos is: ICD-10- CM Z68.30 Body mass index [BMI] 30.0-30 .9, adult<b r/> GORDON PATHAK A 01/16 [facility] [place] [facility] [facility] OFFICE O/P EST MOD 30 MIN 85812-7.63 1. Diagnos is: ICD-10- CM G47.30 Sleep apnea, unspeci fied
Guzman MENDOZA 01/20 [facility] [place] [facility] OFFICE O/P EST MOD 30 MIN 64631-3.68 [id number] Diagnos is: ICD-10- CM G47.33 Obstruc tive sleep apnea (adult) (pediat amparo)
ARELIS NUNO 01/21 [facility] [place] [facility] Outpatient Encounter [id number] [id number] Diagnos is: ICD-10- CM G47.33 Obstruc tive sleep apnea (adult) (pediat amparo)
NUNO,ARELIS 01/21 [facility] [place] [facility] [place] LD GROUP BEHAVE COUNS 2-10 07449-3.63 [id number].[id number] Diagnos is: ICD-10- CM E66.811 Obesity , class 1
NIA,MI CHAEL P 01/23 [place] [facility] GROUP BEHAVE COUNS 2-10 61976-6.63 [id number] Diagnos is: ICD-10- CM E66.811 Obesity , class 1
NIA,MI CHAEL P 01/30 [place] [facility] IVNTJ GRP EA ADDL [id number] [id number] Diagnos is: ICD-10- CM Z68.30 Body mass index [BMI] 30.0-30 .9, adult<b r/> GORDON PATHAK A 02/06 [place] [facility] LD HLTH BHV IVNTJ GRP EA ADDL 11475-6.63 [id number] Diagnos is: ICD-10- CM Z68.30 Body mass index [BMI] 30.0-30 .9, adult<b r/> GORDON PATHAK A 02/13 [place] [facility] OFFICE O/P EST MOD 30 MIN 97151-6.68 [id number] Diagnos is: ICD-10- CM G47.33 Obstruc tive sleep apnea (adult) (pediat amparo)
NUNO,ARELIS 02/25 [facility] Outpatient Encounter [phone] Diagnos is: ICD-10- CM G47.33 Obstruc tive sleep apnea (adult) (pediat amparo)
NUNO,ARELIS 02/25 [facility] BHV IVNTJ GRP EA ADDL [id number] Diagnos is: ICD-10- CM Z68.30 Body mass index [BMI] 30.0-30 .9, adult<b r/> GORDON PATHAK A 02/27 [facility] LD GROUP BEHAVE COUNS 2-10 [id number] Diagnos is: ICD-10- CM E66.811 Obesity , class 1
EVNA KRAMER P 03/06 [facility] SANGErin LD GROUP BEHAVE COUNS 2-10 [id number] Diagnos is: ICD-10- CM E66.811 Obesity , class 1
EVAN KRAMER P 03/13 [facility] Social History Combined list of available smoking, tobacco, and other social history from [facility] and [facility] facilities. Social History Type Response Date Comment Sourc e Tobacco smoking status NEIS [facility]ACCO FORMER USER 01[facility]2024 [facility] [place] History of tobacco use PR-TOBACCO QUIT 15 YRS OR MORE 01/[facility]/2024 [facility] [...] [facility] [place] [facility] Plan of Care List of future care activities from Department of Veterans Affairs facilities. Additional future care activities may be listed in the Assessment and Plan section. Date/Time Care Activity Care Activity Detail Facili ty 07/21/2024 AMBULATORY - MEDICINE AMBULATORY - MEDICI NE [facility]
--- NOTE | 2024-03-25 10:50 | A.OFFVIS_ITS ---
Intake Visit Reasons: 1 year f/u w/ Labs and PVR Intake Note: Patient is present for follow up on: BPH w urinary obs/LUTS/Nocturia Urology Medication: Tamsulosin, finasteride Blood Thinner: Aspirin Post Void Residual: 29ml's Cell Tuber Machine Required: No Accompanied by: Self / Same As Patient Allergies morphine Allergy (Unknown, Verified 03/26/24 15:28) Unknown ENVIROMENTAL Allergy (Unknown, Uncoded 03/26/24 15:28) POST NASAL DRIP Medication List - Last Reconciled 03/26/24 by DEIDRE Deluna- aspirin (Adult Aspirin Regimen) 81 mg PO DAILY bromocriptine 5 mg (2 x 2.5 mg) PO BEDTIME calcium carbonate-vitamin D3 600 mg-5 mcg (200 unit) 1 tab PO BID cetirizine (Allergy Relief (cetirizine)) 10 mg PO DAILY cholecalciferol (vitamin D3) 25 mcg PO DAILY finasteride 5 mg PO DAILY levothyroxine 100 mcg PO QAM losartan 100 mg PO DAILY meloxicam 15 mg PO DAILY metoprolol succinate ER 50 mg PO DAILY 90 days prednisone 40 mg (2 x 20 mg) PO DAILY 5 days rosuvastatin 20 mg PO DAILY tamsulosin 0.4 mg PO BEDTIME 90 days HPI Comments Details: Bandar is a pleasant 83 year old male patient who is a patient of Dr. Bernard. He has a past medical history of hypertension, prolactinoma, hype rlipidemia, and BPH. He presents to the office today for follow-up of his BPH and nocturia. When asked patient reports to be doing and feeling well. He reports compliance with Flomax and finasteride as prescribed. He discusses his recent back injury in January and has been slowly recovering. He discusses noting urinary dribbling has worsened as he has not been performing his pelvic floor exercises. He otherwise denies any bothersome urinary issues or concerns. He reports episodes of nocturia he had been experiencing have somewhat subsided as he has been compliant with his CPAP machine. We discussed correlation of sleep apnea and nocturia. When asked he denies hematuria, dysuria, foul smelling urine, flank pain, fever, and or chills. In office urinalysis results reviewed with the patient today. PVR 29ml's. He does discuss his ED however does not find this bothersome as he discusses his and him do not find this to be an issue. PSAs are as follows: 03/15 1.4, 03/16 1.6, 03/17 1.6, 03/18 0.8 PFSH Medical History Painful arc syndrome of right shoulder Nocturia Lipid disorder Other specified hypothyroidism Prolactinoma Hypertension, essential Surgical History History of biopsy History of surgery Family History Father No problems noted. Mother Colon cancer Brother No problems noted. Brother No problems noted. Sister No problems noted. Social History Housing: House Alcohol intake: never Patient Tobacco Use Status: Former Tobacco user e-Cigarette/Vaping Use: Never Used service: Yes Current occupational status: retired Cognitive needs: No Hearing needs: No Vision needs: No Review of Systems Const Reports no additional complaints Eyes Reports no additional complaints ENT Reports no additional complaints Card Reports as per HPI Resp Reports no additional complaints GI Reports no additional complaints Reports as per HPI Musc Details: Reports no additional complaints Neuro Reports no additional complaints Physical Exam Const General: cooperative, healthy appearing, comfortable, no acute distress, well developed, alert and awake Nutritional Appearance: overweight Orientation/consciousness: patient oriented x3 Limitations: no limitations HEENT Head: Yes normal to inspection, Yes normocephalic and Yes atraumatic Eyes General: appearance normal, both eyes and all related structures Neck Neck: Yes normal visual inspection and Yes trachea midline Chest Chest palpation & inspection: normal inspection of the chest Resp Effort & Inspection: normal respiratory effort and able to speak in complete sentences Cardio Rhythm: regular rhythm GI Inspection: Yes normal to inspection General: Yes no CVA tenderness Back/Spine/Pelvis Back: no CVA tenderness Neuro General: patient oriented x3 Psych Appearance: grossly normal and well kempt Mental Status: mental status grossly normal Speech and movement: Normal speech and movement present and Clear speech present Affect: normal affect Attitude: cooperative Thought process: Normal thought process present Thought content: Normal thought content present Insight: Fair insight present (Psych) Judgement: Fair judgement present (Psych) Office Procedures Post Void Residual Post Residual Void Post Void Residual (PVR): 29 [id number] Void Residual by ultrasound Results AMB Urinalysis, Automated UA Leukoctes 0 Foster/uL Last Edit by [employer] on 03/25/24 12:11 UA Nitrite Last Edit by [employer] on 03/25/24 12:11 UA Urobilinogen 0.2 mg/dL Last Edit by [employer] on 03/25/24 12:11 UA Protein 0 mg/dL Last Edit by [employer] on 03/25/24 12:11 UA pH 6.5 Last Edit by [employer] on 03/25/24 12:11 UA Blood 0 Tony/uL Last Edit by [employer] on 03/25/24 12:11 UA Specific [place] 1.020 Last Edit by [employer] on 03/25/24 12:11 UA Ketone Last Edit by [employer] on 03/25/24 12:11 UA Bilirubin 0 mg/dL Last Edit by [employer] on 03/25/24 12:11 UA Glucose 0 mg/dL Last Edit by [employer] on 03/25/24 12:11 Results Reviewed Results Reviewed: Laboratory Last Values Urine pH (Auto) 6.5 03/25/24 12:10 Specific [place] (Auto) 1.020 03/25/24 12:10 Urine Protein (Auto) 0 mg/dL 03/25/24 12:10 Glucose (UA)(Auto) 0 mg/dL 03/25/24 12:10 Urine Blood (Auto) 0 Tony/uL 03/25/24 12:10 Urine Bilirubin (Auto) 0 mg/dL 03/25/24 12:10 Urine Urobilinogen (Auto) 0.2 mg/dL 03/25/24 12:10 Leukocyte Esterase (Auto) 0 Foster/uL 03/25/24 12:10 Assessment & Plan Assessment & Plan (1) BPH w urinary obs/LUTS: Code(s): N40.1 - Benign prostatic hyperplasia with lower urinary tract symptoms; N13.8 - Other obstructive and reflux uropathy Category: Medical (2) Urinary dribbling: Code(s): N39.43 - Post-void dribbling Category: Medical Plan In office urinalysis results reviewed with the patient today; as noted above. PVR 29 mL. Continue pelvic floor exercises to assist with urinary dribbling. Patient currently denies any bothersome urinary issues or concerns. He reports be happy with current voiding parameters. Continue Flomax and finasteride as prescribed. Recent PSA results reviewed with the patient today; as noted above. Will obtain PSA in 1 year. Follow-up in 1 year with PSA and PVR; or sooner with any issues, concerns, and or questions. Orders: Orders AMB Urinalysis Automated 03/25/24 Z13.9 - Encounter for screening, unspecified Prostate Specific Antigen 1 Year N13.8 - Other obstructive and reflux uropathy, N40.1 - Benign prostatic hyperplasia with lower urinary tract symptoms AMB Post Void Residual by ultrasound 03/25/24 N13.8 - Other obstructive and reflux uropathy, N40.1 - Benign prostatic hyperplasia with lower urinary tract symptoms Medications: Changed From tamsulosin 0.4 mg PO BEDTIME 90 caps 0RF To tamsulosin 0.4 mg PO BEDTIME 90 days 90 caps 4RF Refilled finasteride 5 mg PO DAILY 90 tabs 4RF Patient Instructions: The patient had an opportunity to ask questions regarding the treatment plan. All questions were answered. Physical exam, labs, and imaging were discussed and reviewed in detail. As well as risks, benefits, and discussion of treatment choices. No major barriers to understanding were identified. The patient expressed understanding and agreement with the above treatment plan. The patient was made aware they should contact our office by phone for worsening of their current condition, the appearance of new symptoms, or with any questions or concerns. Compliance is encouraged with any medications and follow up testing that is ordered. It is a privilege to be allowed the opportunity to participate in? your urological care.? Again, if you have any questions or concerns If you have any questions or concerns please do not hesitate to contact me. The office is [phone]. This note is constructed using voice recognition software. While every effort has been made to ensure accuracy curing oven attendant errors may have been included. Yours sincerely, DEIDRE Deluna-BC Coding Level of Care Code Est Pt Level 3 (67157) Complex EM visit Add On G2211 Diagnoses BPH w urinary obs/LUTS N40.1; N13.8 Urinary dribbling N39.43 CPT Codes Post Residual Void - PVR CPT Code: 13601-Srre Void Residual by ultrasound ([id number])
== END 2024-03-25 11:43 | disposition home or self-care (01) ==
PROVIDERS: PCP Internal Medicine; Visit Provider Nurse Practitioner Family
DX: Z13.9 Encounter for screening, unspecified (principal)
CPT/HCPCS: 99213; G2211

== ENCOUNTER → 2024-03-25 10:34 | Outpatient (BNVA) | payer MEDICARE, OTHER, SELFPAY | PROVIDERS: PCP Internal Medicine; Visit Provider Nurse Practitioner Family | DX: N40.1 Benign prostatic hyperplasia with lower urinary tract symptoms (principal); N13.8 Other obstructive and reflux uropathy; N39.43 Post-void dribbling | CPT/HCPCS: 51798; 81003; 99212 ==

== ENCOUNTER 2024-03-31 09:17 | Outpatient (REF) | payer MEDICARE, OTHER, SELFPAY ==
--- NOTE | ~2024-03-31 | XR_ITS ---
EXAMINATION: XR KNEE, RIGHT CLINICAL INFORMATION: M25.569 - Pain in unspecified knee COMPARISON: X-ray dated January 16, 2013. TECHNIQUE: Single view of the both knee. FINDINGS: Joint space narrowing involving the medial compartment, both knees. No acute cortical disruption or gross malalignment. No lytic or blastic lesions. XR/XR knee RT 1V IMPRESSION: Medial compartment osteoarthrosis, both knees. Electronically signed by: Burt Leung MD 04/03/2024 07:58 AM [facility]
--- NOTE | ~2024-03-31 | XR_ITS ---
EXAMINATION: XR KNEE, LEFT CLINICAL INFORMATION: M25.569 - Pain in unspecified knee COMPARISON: X-ray dated January 16, 2013. Correlated to AP view x-rays same day. TECHNIQUE: [place] view of the left knee. FINDINGS: No joint space narrowing. Degenerative changes in the anterior patella. No acute cortical disruption. Limited examination. XR/XR knee LT 2V IMPRESSION: Osteoarthrosis, patella. Electronically signed by: Burt Leung MD 04/03/2024 08:00 AM [facility]
--- OUTSIDE RECORDS SUMMARY | 2024-03-31 09:39 | XMS_ITS | Continuity of Care Document ---
Author Name [facility] Organization [facility] Care Team Providers Care Stevedore Hold Name Role Phone [facility] Unavailable Unavailable Problems Combined list of problems [...] ICD-10-CM E66.811 Obesity, class 1 Active Diagnosis [facility] Diagnosis: ICD-10-CM Z68.30 Body mass index [BMI] 30.0-30.9, adult Active Diagnosis [facility] Diagnosis: ICD-10-CM G47.33 Obstructive sleep apnea (adult) (pediatric) Active Diagnosis [facility] Diagnosis: ICD-10-CM G47.30 Sleep apnea, unspecified Active Diagnosis [facility] Diagnosis: ICD-10-CM E66.09 Other obesity due to excess calories Active Diagnosis [facility] Diagnosis: ICD-10-CM Z71.3 Dietary counseling and surveillance Active Diagnosis [facility] Diagnosis: ICD-10-CM Z72.3 Lack of physical exercise Active Diagnosis [facility] Diagnosis: ICD-10-CM Z73.3 Stress, not elsewhere classified Active Diagnosis [facility] Diagnosis: ICD-10-CM Z68.29 Body mass index [BMI] 29.0-29.9, adult Active Diagnosis [facility] Diagnosis: ICD-10-CM Z46.0 Encounter for fit/adjst [...] TABLET BY MOUTH DAILY ORAL ACTIVE [facility] BROMOCRIPTI NE MESYLATE 0.8MG TAB TAKE THREE TABLETS BY MOUTH ONCE DAILY ORAL ACTIVE ,2016 [facility] CALCIUM 200MG (CA CITRATE-950 MG) TAB TAKE THREE TABLETS BY MOUTH DAILY ORAL ACTIVE ,2016 [facility] CARBOXYMETH YLCELLULOSE NA 0.5% SOLN,OPH INSTILL 1 DROP INTO EACH EYE FOUR TIMES A DAY FOR DRY EYE OPHTHA LMIC ACTIVE 09/25/2024 [id number] Cecily GEE ICHELE 2023 45 [facility] CETIRIZINE HCL 10MG TAB TAKE ONE TABLET BY MOUTH DAILY ORAL ACTIVE BRITT, [facility] CHOLECALCIF FORTINO 25MCG (1,000UNIT) TAB TAKE ONE TABLET BY MOUTH DAILY ORAL ACTIVE BRITT, [facility] 2016 [facility] LEVOTHYROXI NE NA 125MCG TAB (SYNTHROID) TAKE ONE TABLET BY MOUTH EVERY MORNING 30 MINUTES BEFORE BREAKFAS T ORAL ACTIVE LEN MENDOZA 2023 [facility] LISINOPRIL 5MG TAB TAKE ONE TABLET BY MOUTH ONCE DAILY TO CONTROL BLOOD PRESSURE ORAL 01/27/2024 [id number] LEN MENDOZA 2022 90 [facility] [place] POTASSIUM 100MG TAB TAKE ONE TABLET BY MOUTH ONCE DAILY ORAL ACTIVE LEN MENDOZA 2017 [facility] METOPROLOL SUCCINATE 50MG TAB,SA TAKE ONE TABLET BY MOUTH ONCE DAILY ORAL ACTIVE LEN MENDOZA 2022 [facility] OTHER CAP/TAB TAKE 5 MG BY MOUTH DAILY ORAL ACTIVE BALWINDER, [facility] 2016 [facility] TAMSULOSIN HCL 0.4MG CAP TAKE 1 CAPSULE BY MOUTH ONCE DAILY ORAL ACTIVE LEN MENDOZA 2019 [facility] IELD Immunizations Combined list of available immunizations from the Department of Defense and Veterans Affairs facilities. Immunization Series Date Given Administered By Site Reaction Lot Number CVX Code Drug Passenger Service Supervisor Status Comments Source INFLUENZA, HIGH-DOSE, TRIVALENT, PF 2023 SHE REID SSA H RIGHT DELTO ID [id number] 135 complet ed [facility] INFLUENZA, HIGH-DOSE, QUADRIVALENT 2022 BIENVENIDO BANKS LEFT DELTO ID [id number] 197 complet ed [facility] COVID-19 (MODERNA), MRNA, LNP-S, PF, 100 MCG/0.5ML DOSE OR 50 MCG/0.25ML DOSE 3 2021 207 complet ed MOD; [id number]; 2 [facility] COVID-19 (MODERNA), MRNA, LNP-S, PF, 100 MCG OR 50 MCG DOSE 3 2020 207 complet ed MOD; [id number]; 2 [facility] INFLUENZA VACCINE, QUADRIVALENT, ADJUVANTED 2020 205 complet ed [facility] COVID-19 (MODERNA), MRNA, LNP-S, PF, 100 MCG/0.5 ML DOSE 2 2020 207 complet ed MOD; [id number]; 1 [facility] COVID-19 (MODERNA), MRNA, LNP-S, PF, 100 MCG/0.5 ML DOSE 1 2020 207 complet ed MOD; [id number]; 1 [facility] [...] Left Deltoid [facility] PNEUMOCOCCAL CONJUGATE PCV 13 2017 133 complet [...] Jul 12, 2023 10:12 AM Reporting Lab: [facility] [address] [address] Performing Lab: [facility] [place] [facility] [address] [address] [facility] [place] [facility] LIPID PANEL, NON FASTING CHOLESTEROL [MASS/VOLUM E] IN SERUM OR PLASMA 119 mg/dL 07/18 Specimen Type: SERUM No comment entered. Ordering Provider: ORACIO MENDOZA Report Released Date/Time: Jul 12, 2023 10:12 AM Reporting Lab: [facility] [address] [address] Performing Lab: [facility] [place] [facility] [address] [address] [facility]ITALRVETER[facility] AFFA[facility]-TUSCALOOSATRN [place] [facility] LIPID PANEL, NON FASTING TRIGLYCERID E [MASS/VOLUM E] IN SERUM OR PLASMA 48 mg/dL 0 - 150 07/18 Specimen Type: SERUM No comment entered. Ordering Provider: ORACIO MENDOZA Report Released Date/Time: Jul 12, 2023 10:12 AM Reporting Lab: [facility]ER[facility]OOSATRN [place] [address] [address] Performing Lab: [facility] [place] [facility] [address] [address] [facility]ITALRL WSTRN [facility]USE [facility] LIPID PANEL, NON FASTING CHOLESTEROL IN LDL [MASS/VOLUM E] IN SERUM OR PLASMA BY CALCULATION 63 mg/dL 0 - 129 07/18 Specimen Type: SERUM No comment entered. Ordering Provider: ORACIO MENDOZA Report Released Date/Time: Jul 12, 2023 10:12 AM Reporting Lab: [facility] [place] [facility] [address] [address] Performing Lab: [facility] [address] [address] [facility] HOS[facility]ITALRL TRN [facility] LIPID PANEL, NON FASTING CHOLESTEROL .TOTAL/CHOL ESTEROL IN HDL [MASS RATIO] IN SERUM OR PLASMA 2.6 07/18 Specimen Type: SERUM No comment entered. Ordering Provider: ORACIO MENDOZA Report Released Date/Time: Jul 12, 2023 10:12 AM Reporting Lab: [facility] [place] [facility] [address] [address] Performing Lab: [facility] [address] [address] [facility]ITALRL TRN [facility] LIPID PANEL, NON FASTING CHOLESTEROL IN HDL [MASS/VOLUM E] IN SERUM OR PLASMA 46 mg/dL 40 - 60 07/18 Specimen Type: SERUM No comment entered. Ordering Provider: ORACIO MENDOZA Report Released Date/Time: Jul 12, 2023 10:12 AM Reporting Lab: [facility] [place] [facility] [address] [address] Performing Lab: [facility] [place] [facility] [address] [address] [facility]RL TRN [place] [facility] LIVER FUNCTION PROTEIN [MASS/VOLUM E] IN SERUM OR PLASMA 6.7 g/dL 6.0 - 8.3 07/18 Specimen Type: SERUM No comment entered. Ordering Provider: ORACIO MENDOZA Report Released Date/Time: Jul 12, 2023 10:12 AM Reporting Lab: [facility] [place] [facility] [address] [address] Performing Lab: [facility] [facility] [address] [address] [facility] [place] [facility] LIVER FUNCTION ALBUMIN [MASS/VOLUM E] IN SERUM OR PLASMA 3.8 g/dL 3.5 - 5.0 07/18 Specimen Type: SERUM No comment entered. Ordering Provider: ORACIO MENDOZA Report Released Date/Time: Jul 12, 2023 10:12 AM Reporting Lab: [facility] [place] [facility] [address] [address] Performing Lab: [facility] [place] [facility] [address] [address] [facility] [place] [facility] LIVER FUNCTION ALKALINE PHOSPHATASE [ENZYMATIC ACTIVITY/VO LUME] IN SERUM OR PLASMA 55 U/L 40 - 150 07/18 Specimen Type: SERUM No comment entered. Ordering Provider: ORACIO MENDOZA Report Released Date/Time: Jul 12, 2023 10:12 AM Reporting Lab: [facility] [place] [facility] [address] [address] Performing Lab: [facility] [place] [facility] [address] [address] [facility] [place] [facility] LIVER FUNCTION ASPARTATE AMINOTRANSF ERASE [ENZYMATIC ACTIVITY/VO LUME] IN SERUM OR PLASMA 26 U/L 5 - 34 07/18 Specimen Type: SERUM No comment entered. Ordering Provider: ORACIO MENDOZA Report Released Date/Time: Jul 12, 2023 10:12 AM Reporting Lab: [facility] [place] [facility] [address] [address] Performing Lab: [facility] [place] [facility] [address] [address] [facility] [place] [facility] LIVER FUNCTION ALANINE AMINOTRANSF ERASE [ENZYMATIC ACTIVITY/VO LUME] IN SERUM OR PLASMA 26 U/L 07/18 Specimen Type: SERUM No comment entered. Ordering Provider: ORACIO MENDOZA Report Released Date/Time: Jul 12, 2023 10:12 AM Reporting Lab: [facility] [place] [facility] [address] [address] Performing Lab: [facility] [place] [facility] [address] [address] [facility] [place] [facility] LIVER FUNCTION BILIRUBIN.T OTAL [MASS/VOLUM E] IN SERUM OR PLASMA 0.6 mg/dL 0.2 - 1.2 07/18 Specimen Type: SERUM No comment entered. Ordering Provider: OARCIO MENDOZA Report Released Date/Time: Jul 12, 2023 10:12 AM Reporting Lab: [facility] [place] [facility] [address] [address] Performing Lab: [facility] [place] [address] [address] [facility] [facility] BASIC METABOLIC PANEL (non-fast ing) UREA NITROGEN [MASS/VOLUM E] IN SERUM OR PLASMA 19 mg/dL 7 - 07/18 Specimen Type: SERUM No comment entered. Ordering Provider: ORACIO MENDOZA Report Released Date/Time: Jul 12, 2023 10:12 AM Reporting Lab: [facility] [place] [facility] [address] [address] Performing Lab: [facility] [place] [address] [address] [facility] [place] [facility] BASIC METABOLIC PANEL (non-fast ing) GLUCOSE [MASS/VOLUM E] IN SERUM OR PLASMA 95 mg/dL 65 - 100 07/18 Specimen Type: SERUM No comment entered. Ordering Provider: ORACIO MENDOZA Report Released Date/Time: Jul 12, 2023 10:12 AM Reporting Lab: [facility] [place] [facility] [address] [address] Performing Lab: [facility] [place] [address] [address] [facility] [place] [facility] BASIC METABOLIC PANEL (non-fast ing) SODIUM [MOLES/VOLU ME] IN SERUM OR PLASMA 142 mmol/L 135 - 145 07/18 Specimen Type: SERUM No comment entered. Ordering Provider: ORACIO MENDOZA Report Released Date/Time: Jul 12, 2023 10:12 AM Reporting Lab: [facility]ITALRVETERANS AFFAIRS [facility] C[facility]-TUSCALOOSATRN [facility]AREUSE[address] [address] Performing Lab: [facility]ITALRVETERANS AFFAIRS MED[facility] C[facility]-TUSCALOOSATRN [facility]AREUSE[address] [address] [facility]OS[facility]ITALRSPRINGHILL MEDICAL CENTERN [facility]USE [facility] BASIC METABOLIC PANEL (non-fast ing) POTASSIUM [MOLES/VOLU ME] IN SERUM OR PLASMA 4.7 mmol/L 3.5 - 5.0 07/18 Specimen Type: SERUM No comment entered. Ordering Provider: ORACIO MENDOZA Report Released Date/Time: Jul 12, 2023 10:12 AM Reporting Lab: [facility]ITALRVETERANS AFFAIRS MED[facility] C[facility]-TUSCALOOSATRN [facility]USE[address] [address] Performing Lab: [facility] HOS[facility]ITALRL TRN [facility]USE[address] [address] [facility] BASIC METABOLIC PANEL (non-fast ing) CHLORIDE [MOLES/VOLU ME] IN SERUM OR PLASMA 107 mmol/L 100 - 110 07/18 Specimen Type: SERUM No comment entered. Ordering Provider: ORACIO MENDOZA Report Released Date/Time: Jul 12, 2023 10:12 AM Reporting Lab: [facility]OS[facility]ITALRL TRN [address] [address] Performing Lab: [facility]ITALRL TRN [facility] [address] [facility]OS[facility]ITALRSPRINGHILL MEDICAL CENTERN [facility]USE [facility] BASIC METABOLIC PANEL (non-fast ing) CARBON DIOXIDE, TOTAL [MOLES/VOLU ME] IN SERUM OR PLASMA 28 meq/L 20 - 30 07/18 Specimen Type: SERUM No comment entered. Ordering Provider: ORACIO MENDOZA Report Released Date/Time: Jul 12, 2023 10:12 AM Reporting Lab: [facility]RL TRN [address] [address] Performing Lab: [facility] [place] [facility] [address] [address] [facility] [place] [facility] BASIC METABOLIC PANEL (non-fast ing) CREATININE [MASS/VOLUM E] IN SERUM OR PLASMA 0.90 mg/dL 0.50 - 1.40 07/18 Specimen Type: SERUM No comment entered. Ordering Provider: ORACIO MENDOZA Report Released Date/Time: Jul 12, 2023 10:12 AM Reporting Lab: [facility] [place] [facility] [address] [address] Performing Lab: [facility] [place] [facility] [address] [address] [facility] [place] [facility] BASIC METABOLIC PANEL (non-fast ing) GLOMERULAR FILTRATION RATE/1.73 SQ M.PREDICTED [VOLUME RATE/AREA] IN SERUM, PLASMA OR BLOOD BY CREATININE- BASED FORMULA (CKD-EPI 2020) 86 mL/min 60 07/18 Specimen Type: SERUM No comment entered. Ordering Provider: ORACIO MENDOZA Report Released Date/Time: Jul 12, 2023 10:12 AM Reporting Lab: [facility] [place] [facility] [address] [address] Performing Lab: [facility] [place] [address] [address] [facility]RL [facility]N [place] [facility] CBC LEUKOCYTES [#/VOLUME] IN BLOOD BY AUTOMATED COUNT 7.33 10*3/u L 4.50 - 11.00 07/18 Specimen Type: BLOOD No comment entered. Ordering Provider: ORACIO MENDOZA Report Released Date/Time: Jul 12, 2023 10:12 AM Reporting Lab: [facility] [place] [facility] [address] [address] Performing Lab: [facility] [place] [address] [address] [facility] [place] [facility] CBC ERYTHROCYTE S [#/VOLUME] IN BLOOD BY AUTOMATED COUNT 4.94 10*6/u L 4.23 - 5.66 07/18 Specimen Type: BLOOD No comment entered. Ordering Provider: ORACIO MENDOZA Report Released Date/Time: Jul 12, 2023 10:12 AM Reporting Lab: [facility] [place] [facility] [address] [address] Performing Lab: [facility] [place] [facility] [address] [address] [facility] [place] [facility] CBC HEMOGLOBIN [MASS/VOLUM E] IN BLOOD 15.1 g/dL 12.8 - 17 07/18 Specimen Type: BLOOD No comment entered. Ordering Provider: ORACIO MENDOZA Report Released Date/Time: Jul 12, 2023 10:12 AM Reporting Lab: [facility] [place] [facility] [address] [address] Performing Lab: [facility] [place] [address] [address] [facility] [place] [facility] CBC HEMATOCRIT [VOLUME FRACTION] OF BLOOD BY AUTOMATED COUNT 46.2 39.2 - 50.4 07/18 Specimen Type: BLOOD No comment entered. Ordering Provider: ORACIO MENDOZA Report Released Date/Time: Jul 12, 2023 10:12 AM Reporting Lab: [facility] [place] [facility] [address] [address] Performing Lab: [facility] [place] [facility] [address] [address] [facility] [place] [facility] CBC MCV [ENTITIC VOLUME] BY AUTOMATED COUNT 93.5 fL 82 - 99 07/18 Specimen Type: BLOOD No comment entered. Ordering Provider: ORACIO MENDOZA Report Released Date/Time: Jul 12, 2023 10:12 AM Reporting Lab: [facility] [place] [facility] [address] [address] Performing Lab: [facility] [place] [facility] [address] [address] [facility] [place] [facility] CBC MCHC [MASS/VOLUM E] BY AUTOMATED COUNT 32.7 g/dL 30.8 - 35.1 07/18 Specimen Type: BLOOD No comment entered. Ordering Provider: ORACIO MENDOZA Report Released Date/Time: Jul 12, 2023 10:12 AM Reporting Lab: [facility] [place] [facility] [address] [address] Performing Lab: [facility] [place] [facility] [address] [address] [facility] [place] [facility] CBC PLATELETS [#/VOLUME] IN BLOOD BY AUTOMATED COUNT 181 10*3/u L 140 - 360 07/18 Specimen Type: BLOOD No comment entered. Ordering Provider: ORACIO MENDOZA Report Released Date/Time: Jul 12, 2023 10:12 AM Reporting Lab: [facility] [place] [address] [address] Performing Lab: [facility] [place] [address] [address] [facility] [place] [facility] CBC ERYTHROCYTE DISTRIBUTIO N WIDTH [RATIO] BY AUTOMATED COUNT 13.2 12.0 - 16.0 07/18 Specimen Type: BLOOD No comment entered. Ordering Provider: ORACIO MENDOZA Report Released Date/Time: Jul 12, 2023 10:12 AM Reporting Lab: [facility] [place] [address] [address] Performing Lab: [facility] [place] [address] [address] [facility] [place] [facility] CBC MCH [ENTITIC MASS] BY AUTOMATED COUNT 30.6 pg 26.2 - 32.6 07/18 Specimen Type: BLOOD No comment entered. Ordering Provider: ORACIO MENDOZA Report Released Date/Time: Jul 12, 2023 10:12 AM Reporting Lab: [facility] [place] [address] [address] Performing Lab: [facility] [place] [address] [address] [facility] CNTRVETER[facility] AFF[facility]ATRN [place] [facility] THYROID T4 FREE(FT4) THYROXINE (T4) FREE [MASS/VOLUM E] IN SERUM OR PLASMA 1.30 ng/dL 0.6 - 1.6 01/24 Specimen Type: SERUM No comment entered. Ordering Provider: ORACIO MENDOZA Report Released Date/Time: Jan 15, 2023 04:07 PM Reporting Lab: [facility]RL [facility] [place] [facility] [address] [address] Performing Lab: [facility]ITALRL [facility] [place] [facility] [address] [address] [facility]RSPR[facility]ENTERN [facility] TSH THYROTROPIN [UNITS/VOLU ME] IN SERUM OR PLASMA 0.36 u[IU]/ mL 0.35 - 5.00 01/24 Specimen Type: SERUM No comment entered. Ordering Provider: ORACIO MENDOZA Report Released Date/Time: Jan 15, 2023 04:07 PM Reporting Lab: [facility] [place] [facility] [address] [facility] [address] Performing Lab: [facility]ITALRVETERANS AFFAIRS MEDICAL C[facility]-TUSCALOOSATRN [facility]AREUSETS [facility] [address] [address] [facility]ITALRSPRINGHILL MEDICAL CENTERN [facility] VITAMIN D (25-OH) 25-HYDROXYV ITAMIN D3 [MASS/VOLUM E] IN SERUM OR PLASMA 46 ng/mL 20 - 50 01/24 Specimen Type: SERUM No comment entered. Ordering Provider: ORACIO MENDOZA Report Released Date/Time: Jan 15, 2023 04:07 PM Reporting Lab: [facility] [place] [facility] [address] [address] Performing Lab: [facility]OSPITALRVETERANS AFFAIRS MEDICAL C[facility]-TUSCALOOSATRN [facility]CAREUSETS [address] [address] [facility]RSPRINGHILL [facility]ENTERN [facility] LIPID PANEL FASTING CHOLESTEROL [MASS/VOLUM E] IN SERUM OR PLASMA 109 mg/dL 01/24 Specimen Type: SERUM No comment entered. Ordering Provider: ORACIO MENDOZA Report Released Date/Time: Jan 15, 2023 04:07 PM Reporting Lab: [facility] [place] [facility] [address] [address] Performing Lab: [facility] [place] [place] [facility] [address] [address] [facility]RL WSTRN [place] [facility] LIPID PANEL FASTING TRIGLYCERID E [MASS/VOLUM E] IN SERUM OR PLASMA 50 mg/dL 0 - 150 01/24 Specimen Type: SERUM No comment entered. Ordering Provider: ORACIO MENDOZA Report Released Date/Time: Jan 15, 2023 04:07 PM Reporting Lab: [facility] [place] [facility] [address] [address] Performing Lab: [facility] [place] [facility] [address] [address] [facility]OSPITALRVETERANS AFFAIRS MEDICAL CENTER-TUSCALOOSATRN [facility] LIPID PANEL FASTING CHOLESTEROL IN LDL [MASS/VOLUM E] IN SERUM OR PLASMA BY CALCULATION 59 mg/dL 0 - 129 01/24 Specimen Type: SERUM No comment entered. Ordering Provider: ORACIO MENDOZA Report Released Date/Time: Jan 15, 2023 04:07 PM Reporting Lab: [facility] [place] [facility] [address] [address] Performing Lab: [facility]RL [facility] [place] [facility] [address] [address] [facility]OSPITALRVETERANS [facility] LIPID PANEL FASTING CHOLESTEROL .TOTAL/CHOL ESTEROL IN HDL [MASS RATIO] IN SERUM OR PLASMA 2.7 01/24 Specimen Type: SERUM No comment entered. Ordering Provider: ORACIO MENDOZA Report Released Date/Time: Jan 15, 2023 04:07 PM Reporting Lab: [facility] [place] [facility] [address] [address] Performing Lab: [facility] [place] [facility] [address] [address] [facility] LIPID PANEL FASTING CHOLESTEROL IN HDL [MASS/VOLUM E] IN SERUM OR PLASMA 40 mg/dL 40 - 60 01/24 Specimen Type: SERUM No comment entered. Ordering Provider: ORACIO MENDOZA Report Released Date/Time: Jan 15, 2023 04:07 PM Reporting Lab: [facility] [place] [facility] [address] [address] Performing Lab: [facility] [place] [facility] [address] [address] [facility] [place] [facility] CBC LEUKOCYTES [#/VOLUME] IN BLOOD BY AUTOMATED COUNT 6.50 10*3/u L 4.50 - 11.00 01/24 Specimen Type: BLOOD No comment entered. Ordering Provider: ORACIO MENDOZA Report Released Date/Time: Jan 15, 2023 04:07 PM Reporting Lab: [facility] [place] [facility] [address] [address] Performing Lab: [facility] [place] [facility] [address] [address] [facility] [place] [facility] CBC ERYTHROCYTE S [#/VOLUME] IN BLOOD BY AUTOMATED COUNT 4.73 10*6/u L 4.23 - 5.66 01/24 Specimen Type: BLOOD No comment entered. Ordering Provider: ORACIO MENDOZA Report Released Date/Time: Jan 15, 2023 04:07 PM Reporting Lab: [facility] [address] [facility] [address] Performing Lab: [facility] [address] [place] [address] [facility] CBC HEMOGLOBIN [MASS/VOLUM E] IN BLOOD 14.7 g/dL 12.8 - 17 01/24 Specimen Type: BLOOD No comment entered. Ordering Provider: ORACIO MENDOZA Report Released Date/Time: Jan 15, 2023 04:07 PM Reporting Lab: [facility] [address] [facility] [address] Performing Lab: [facility] [address] [place] [address] [facility] CBC HEMATOCRIT [VOLUME FRACTION] OF BLOOD BY AUTOMATED COUNT 44.2 39.2 - 50.4 01/24 Specimen Type: BLOOD No comment entered. Ordering Provider: ORACIO MENDOZA Report Released Date/Time: Jan 15, 2023 04:07 PM Reporting Lab: [facility] [address] [facility] [address] Performing Lab: [facility] [address] [facility] [address] [facility] [place] CBC MCV [ENTITIC VOLUME] BY AUTOMATED COUNT 93.4 fL 82 - 99 01/24 Specimen Type: BLOOD No comment entered. Ordering Provider: ORACIO MENDOZA Report Released Date/Time: Jan 15, 2023 04:07 PM Reporting Lab: [facility] [place] [facility] [address] [facility] [address] Performing Lab: [facility] [place] [facility] [address] [facility] [address] [facility] [place] CBC MCHC [MASS/VOLUM E] BY AUTOMATED COUNT 33.3 g/dL 30.8 - 35.1 01/24 Specimen Type: BLOOD No comment entered. Ordering Provider: ORACIO MENDOZA Report Released Date/Time: Jan 15, 2023 04:07 PM Reporting Lab: [facility] [place] [facility] [address] [facility] [address] Performing Lab: [facility] [place] [facility] [address] [facility] [address] [facility] [place] CBC PLATELETS [#/VOLUME] IN BLOOD BY AUTOMATED COUNT 194 10*3/u L 140 - 360 01/24 Specimen Type: BLOOD No comment entered. Ordering Provider: ORACIO MENDOZA Report Released Date/Time: Jan 15, 2023 04:07 PM Reporting Lab: [facility] [place] [facility] [address] [facility] [address] Performing Lab: [facility] [address] [address] [facility] [place] CBC ERYTHROCYTE DISTRIBUTIO N WIDTH [RATIO] BY AUTOMATED COUNT 13.0 12.0 - 16.0 01/24 Specimen Type: BLOOD No comment entered. Ordering Provider: ORACIO MENDOZA Report Released Date/Time: Jan 15, 2023 04:07 PM Reporting Lab: [facility] [place] [facility] [address] [facility] [address] Performing Lab[facility] [place] [facility] [address] [facility] [address] [facility] [facility] CBC MCH [ENTITIC MASS] BY AUTOMATED COUNT 31.1 pg 26.2 - 32.6 01/24 Specimen Type: BLOOD No comment entered. Ordering Provider: ORACIO MENDOZA Report Released Date/Time: Jan 15, 2023 04:07 PM Reporting Lab: [facility] [place] [facility] [address] [facility] [address] Performing Lab: [facility] [place] [facility] [address] [facility] [address] [facility] [place] [facility] Vital Signs Combined list of [...] [facility] 2) Encounters from the Department of Defense facilities going back up to 280 months. Location Location Details Encounter Type Encounter Number Reason For Visit Attending Provider ADM Date DC Date Status Disposition Source [facility] EXERCISE CLASS [id number] Diagnos is: ICD-10- CM Z72.3 Lack of physica l exercis e
Cecily ONEILLIN 09/20 [facility] [place] GROUP BEHAVE COUNS 2-10 [id number] [id number] Diagnos is: ICD-10- CM E66.09 Other obesity due to excess calorie s
EVAN KRAMER P 09/21 [place] [facility] EXERCISE CLASS [id number] Diagnos is: ICD-10- CM Z72.3 Lack of physica l exercis e
ILIANA UNDERWOOD 09/21 [facility] EXERCISE CLASS [id number] Diagnos is: ICD-10- CM Z72.3 Lack of physica l exercis e
Cecily ONEILL SHANICE 09/22 [facility] EXERCISE CLASS [id number] Diagnos is: ICD-10- CM Z72.3 Lack of physica l exercis e
CRISTAL LAZCANO LLCourtney M 09/25 [facility] EXERCISE CLASS [id number] Diagnos is: ICD-10- CM Z72.3 Lack of physica l exercis e
CRISTAL LAZCANO LLY M 10/02 [facility] Outpatient Encounter [id number] 10/03 [facility] [place] Outpatient Encounter [id number] REJIGuzman JON Ghassan 10/03 [facility] [place] GROUP BEHAVE COUNS 2-10 [id number] Diagnos is: ICD-10- CM E66.09 Other obesity due to excess calorie s
EVAN KRAMER P 10/05 [place] [facility] EXERCISE CLASS [id number] Diagnos is: ICD-10- CM Z72.3 Lack of physica l exercis e
CRISTAL LAZCANO M 10/06 [facility] [id number] Diagnos is: ICD-10- CM E66.3 Overwei ght<br/ > GORDON PATHAK 10/12 [place] [facility] EXERCISE CLASS [id number] Diagnos is: ICD-10- CM Z72.3 Lack of physica l exercis e
CRISTAL LAZCANO M 10/16 [facility] [place] [place] [facility] EXERCISE CLASS [id number] Diagnos is: ICD-10- CM Z72.3 Lack of physica l exercis e
Cecily ONEILL 10/18 [facility] [place] [place] [facility] [place] WEIGHT MGMT CLASS [id number] Diagnos is: ICD-10- CM Z68.29 Body mass index [BMI] 29.0-29 .9, adult<b r/> GORDON PATHAK 10/19 [place] [facility] EXERCISE CLASS [id number] Diagnos is: ICD-10- CM Z72.3 Lack of physica l exercis e
LARISA COATES 10/20 [facility] EXERCISE CLASS [id number] Diagnos is: ICD-10- CM Z72.3 Lack of physica l exercis e
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
LARISA COATES 10/24 [facility] [place] EXERCISE CLASS [id number] [id number] Diagnos is: ICD-10- CM Z72.3 Lack of physica l exercis e
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
LARISA COATES 10/27 [facility] [place] [place] [facility] EXERCISE CLASS [id number] Diagnos is: ICD-10- CM Z72.3 Lack of physica l exercis e
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
MAICecily SHANICE 11/01 [facility] [place] [facility] [place] EXERCISE CLASS [id number] Diagnos is: ICD-10- CM Z72.3 Lack of physica l exercis e
ILIANA UNDERWOOD 11/03 [facility] [place] [facility] [place] EXERCISE CLASS [id number] Diagnos is: ICD-10- CM Z72.3 Lack of physica l exercis e
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
EVAN KRAMER 11/09 [place] [facility] EXERCISE CLASS [id number] Diagnos is: ICD-10- CM Z72.3 Lack of physica l exercis e
Cecily ONEILLIN 11/15 [facility] [place] LD WEIGHT MGMT CLASS [id number] Diagnos is: ICD-10- CM Z68.29 Body mass index [BMI] 29.0-29 .9, adult<b r/> GORDON PATHAK 11/16 [facility] [place] [facility] EXERCISE CLASS [id number] Diagnos is: ICD-10- CM Z72.3 Lack of physica l exercis e
LARISA COATES 11/17 [facility] [place] [place] [facility] [place] EXERCISE CLASS [id number] Diagnos is: ICD-10- CM Z72.3 Lack of physica l exercis e
CRISTAL LAZCANO 11/20 [facility] [place] [facility] [place] EXERCISE CLASS [id number] Diagnos is: ICD-10- CM Z72.3 Lack of physica l exercis e
Cecily ONEILL 11/22 [facility] [place] GROUP BEHAVE COUNS 2-10 [id number] Diagnos is: ICD-10- CM E66.3 Overwei ght<br/ > EVAN KRAMER 11/23 [facility] [place] [facility] [place] [facility] EXERCISE CLASS [id number] Diagnos is: ICD-10- CM Z72.3 Lack of physica l exercis e
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
CRISTAL LAZCANO 11/29 [facility] Out[facility] En[facility] [id number] 11/29 [facility] [place] WEIGHT MGMT CLASS [id number] Diagnos is: ICD-10- CM Z68.29 Body mass index [BMI] 29.0-29 .9, adult<b r/> GORDON PATHAK 11/30 [place] BEHAVE COUNS 2-10 [id number] Diagnos is: ICD-10- CM E66.3 Overwei ght<br/ > EVAN KRAMER 12/07 [place] [facility] EXERCISE CLASS [id number] Diagnos is: ICD-10- CM Z72.3 Lack of physica l exercis e
Cecily ONEILL 12/13 [facility] [place] WEIGHT MGMT CLASS [id number] Diagnos is: ICD-10- CM Z68.29 Body mass index [BMI] 29.0-29 .9, adult<b r/> GORDON PATHAK 12/14 [place] [facility] EXERCISE CLASS [id number] Diagnos is: ICD-10- CM Z72.3 Lack of physica l exercis e
CRISTAL LAZCANO M 12/15 [facility] [place] [place] [facility] EXERCISE CLASS [id number] Diagnos is: ICD-10- CM Z72.3 Lack of physica l exercis e
CRISTAL LAZCANO M 12/18 [facility] EXERCISE CLASS [id number] Diagnos is: ICD-10- CM Z72.3 Lack of physica l exercis e
LARISA COATES B 12/20 [facility] [place] [place] [facility] [place] WEIGHT MGMT CLASS [id number] Diagnos is: ICD-10- CM Z68.29 Body mass index [BMI] 29.0-29 .9, adult<b r/> GORDON PATHAK 12/21 [place] [facility] EXERCISE CLASS [id number] Diagnos is: ICD-10- CM Z72.3 Lack of physica l exercis e
CRISTAL LAZCANO M 12/25 [facility] [place] [facility] [place] Outpatient Encounter [id number] 12/28 [facility] [place] [facility] [place] WEIGHT MGMT CLASS [id number] Diagnos is: ICD-10- CM Z68.29 Body mass index [BMI] 29.0-29 .9, adult<b r/> GORDON PATHAK 01/04 [place] [facility] BEHAVE COUNS 2-10 [id number] [id number] Diagnos is: ICD-10- CM E66.3 Overwei ght<br/ > EVAN KRAMER 01/11 [place] [facility] EXERCISE CLASS [id number] Diagnos is: ICD-10- CM Z72.3 Lack of physica l exercis e
CRISTAL LAZCANO LLY M 01/12 [facility] EXERCISE CLASS [id number] Diagnos is: ICD-10- CM Z72.3 Lack of physica l exercis e
CRISTAL LAZCANO LLY M 01/15 [facility] EXERCISE CLASS [id number] Diagnos is: ICD-10- CM Z72.3 Lack of physica l exercis e
Cecily ONEILL 01/17 [facility] [place] [place] [facility] LD GROUP BEHAVE COUNS 2-10 [id number] [id number] Diagnos is: ICD-10- CM E66.3 Overwei ght<br/ > NIAEVAN P 01/18 [facility] [place] [facility] EXERCISE CLASS [id number] Diagnos is: ICD-10- CM Z72.3 Lack of physica l exercis e
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
CRISTAL LAZCANO 01/26 [facility] [place] [facility] [place] OFFICE O/P EST MOD 30-39 MIN [id number] [id number] Diagnos is: ICD-10- CM M17.9 Osteoar thritis of knee, unspeci fied
Guzman MENDOZA 01/26 [facility] [place] [place] [facility] EXERCISE CLASS [id number] Diagnos is: ICD-10- CM Z72.3 Lack of physica l exercis e
CRISTAL LAZCANO M 01/29 [facility] [place] [facility] PT EDUCATION NOC GROUP [id number] [id number] Diagnos is: ICD-10- CM Z71.3 Dietary deputy county counsel ing and surveil nancy<b r/> RAKESH GRACIA 01/30 [facility] [place] GROUP BEHAVE COUNS 2-10 [id number] [id number] Diagnos is: ICD-10- CM E66.09 Other obesity due to excess calorie s
EVAN KRAMER P 02/01 [facility] [place] [facility] EXERCISE CLASS [id number] [id number] Diagnos is: ICD-10- CM Z72.3 Lack of physica l exercis e
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
Cecily ONEILL 02/07 [facility] [place] [facility] WEIGHT MGMT CLASS [id number] [id number] Diagnos is: ICD-10- CM Z68.29 Body mass index [BMI] 29.0-29 .9, adult<b r/> GORDON PATHAK 02/08 [facility] [place] [facility] EXERCISE CLASS [id number] [id number] Diagnos is: ICD-10- CM Z72.3 Lack of physica l exercis e
CRISTAL LAZCANO M 02/09 [facility] [place] [facility] [place] [facility] EXERCISE CLASS [id number] Diagnos is: ICD-10- CM Z72.3 Lack of physica l exercis e
CRISTAL LAZCANO M 02/12 [facility] [place] [facility] [place] [facility] SELF-MGMT EDUC/TRAIN 2-4 [place] [id number] [id number] Diagnos is: ICD-10- CM Z71.3 Dietary deputy county counsel ing and surveil nancy<b r/> RAKESH GRACIA 02/13 [facility] EXERCISE CLASS [id number] Diagnos is: ICD-10- CM Z72.3 Lack of physica l exercis e
Cecily ONEILL SHANICE 02/14 [facility] EXERCISE CLASS [id number] Diagnos is: ICD-10- CM Z72.3 Lack of physica l exercis e
NENOCRISTAL HONG M 02/19 [facility] EXERCISE CLASS [id number] [id number] Diagnos is: ICD-10- CM Z72.3 Lack of physica l exercis e
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
LARISA COATES 02/23 [facility] EXERCISE CLASS [id number] Diagnos is: ICD-10- CM Z72.3 Lack of physica l exercis e
CRISTAL LAZCANO M 02/26 [facility] EXERCISE CLASS [id number] [id number] Diagnos is: ICD-10- CM Z72.3 Lack of physica l exercis e
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
SYDNEYCRISTAL LEAL M 03/05 [facility] [place] [facility] Out[facility] En[facility] [id number] 03/05 [facility] SELF-MGMT EDUC & TRAIN 1 [place] [id number] Diagnos is: ICD-10- CM G47.33 Obstruc tive sleep apnea (adult) (pediat amparo)
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
ILIANA UNDERWOOD 03/07 [facility] [place] [place] [facility] LD GROUP BEHAVE COUNS 2-10 19584-8.63 [id number] Diagnos is: ICD-10- CM E66.09 Other obesity due to excess calorie s
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
Cecily ONEILL 03/14 [facility] [place] [place] [facility] GROUP BEHAVE COUNS 2-10 13587-1.63 [id number] Diagnos is: ICD-10- CM E66.3 Overwei ght<br/ > EVAN KRAMER CHABOBBY P 03/15 [place] [facility] SLEEP STUDY UNATT&RESP EFFT 96691-4.63 [id number] Diagnos is: ICD-10- CM G47.33 Obstruc tive sleep apnea (adult) (pediat amparo)
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
Cecily ONEILL 03/28 [facility] [place] [facility] SLEEP STUDY UNATT&RESP EFFT 64452-5.68 [id number] Diagnos is: ICD-10- CM G47.33 Obstruc tive sleep apnea (adult) (pediat amparo)
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
Cecily ONEILL 04/04 [facility] [place] [place] [facility] LD GROUP BEHAVE COUNS 2-10 [id number] [id number] Diagnos is: ICD-10- CM E66.09 Other obesity due to excess calorie s
EVAN KRAMER P 04[place]05 [place] [facility] LD GROUP BEHAVE COUNS 2-10 95931-2.63 [id number] Diagnos is: ICD-10- CM E66.3 Overwei ght<br/ > EVAN KRAMER P 04/05 [place] [facility] PT EDUCATION NOC GROUP [id number] [id number] Diagnos is: ICD-10- CM Z71.3 Dietary deputy county counsel ing and surveil nancy<b r/> RAKESH GRACIA 04/10 [facility] [place] [facility] WEIGHT MGMT CLASS 55780-7.63 [id number] Diagnos is: ICD-10- CM Z68.29 Body mass index [BMI] 29.0-29 .9, adult<b r/> GORDON PATHAK 04/12 [facility] [facility] EXERCISE CLASS [id number] [id number] Diagnos is: ICD-10- CM 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
Cecily ONEILL SHANICE 05/09 [facility] [place] [facility] LD GROUP BEHAVE COUNS 2-10 89232-4.63 [id number] Diagnos is: ICD-10- CM E66.09 Other obesity due to excess calorie s
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
CRISTAL LAZCANO M 05/21 [facility] [place] [facility] LD GROUP BEHAVE COUNS 2-10 79302-3.63 [id number] Diagnos is: ICD-10- CM E66.09 Other obesity due to excess calorie s
EVAN KRAMER P [place] [facility] PT EDUCATION NOC GROUP 70048-3.63 [id number] Diagnos is: ICD-10- CM Z71.3 Dietary deputy county counsel ing and surveil nancy<b r/> RAKESH GRACIA LIE CHENTE 05/28 [facility] [place] [facility] GROUP BEHAVE COUNS 2-10 51485-1.63 [id number].[id number] Diagnos is: ICD-10- CM E66.09 Other obesity due to excess calorie s
EVAN KRAMER CHABOBBY P 05/30 [facility] LD GROUP BEHAVE COUNS 2-10 54855-2.63 [id number] Diagnos is: ICD-10- CM E66.09 Other obesity due to excess calorie s
EVAN KRAMER CHABOBBY P 06/06 [facility] [place] [facility] PT EDUCATION NOC GROUP [id number] [id number] Diagnos is: ICD-10- CM Z71.3 Dietary deputy county counsel ing and surveil nancy<b r/> RAKESH GRACIA LIE CHENTE 06/11 [facility] [place] [facility] LD WEIGHT MGMT CLASS 49538-8.63 [id number] Diagnos is: ICD-10- CM E66.3 Overwei ght<br/ > GORDON PATHAK 06/13 [facility] LD WEIGHT MGMT CLASS [id number] [id number] Diagnos is: ICD-10- CM Z68.29 Body mass index [BMI] 29.0-29 .9, adult<b r/> GORDON PATHAK 06/20 [facility] [place] [facility] [place] [facility] PT EDUCATION NOC GROUP [id number] [id number] Diagnos is: ICD-10- CM Z71.3 Dietary deputy county counsel ing and surveil nancy<b r/> RAKESH GRACIA 06/25 [facility] [place] [facility] LD WEIGHT MGMT CLASS 89429-9.63 [id number] Diagnos is: ICD-10- CM Z68.29 Body mass index [BMI] 29.0-29 .9, adult<b r/> GORDON PATHAK A 06/27 [facility] LD GROUP BEHAVE COUNS 2-10 95044-8.63 [id number].[id number] Diagnos is: ICD-10- CM E66.3 Overwei ght<br/ > EVAN KRAMER P 07/04 [facility] WEIGHT MGMT CLASS 36154-3.63 [id number] Diagnos is: ICD-10- CM Z68.29 Body mass index [BMI] 29.0-29 .9, adult<b r/> GORDON PATHAK 07/18 [place] [facility] [place] [facility] OFFICE O/P EST MOD 30 MIN 27550-9.63 [id number] Diagnos is: ICD-10- CM K21.9 Gastro- esophag eal reflux disease without esophag itis
Guzman MENDOZA 07/22 [facility] [place] [facility] Outpatient Encounter [id number] [id number] 07/23 [facility] [place] [facility] GROUP BEHAVE COUNS 2-10 20761-2.63 [id number] Diagnos is: ICD-10- CM E66.3 Overwei ght<br/ > EVAN KRAMER P 07/25 [place] [facility] [place] [facility] PT EDUCATION NOC GROUP [id number] [id number] Diagnos is: ICD-10- CM Z71.3 Dietary deputy county counsel ing and surveil nancy<b r/> RAKESH GRACIA 07/30 [facility] [place] [facility] LD GROUP BEHAVE COUNS 2-10 13616-3.63 [id number] Diagnos is: ICD-10- CM E66.3 Overwei ght<br/ > EVAN KRAMER P 08/01 [facility] BEHAVE COUNS 2-10 88727-1.63 [id number] Diagnos is: ICD-10- CM E66.3 Overwei ght<br/ > EVAN KRAMER JOSH P 08/08 [facility] [place] EXERCISE CLASS 06887-4.63 [id number] Diagnos is: ICD-10- CM 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
Cecily ONEILL 09/04 [facility] [place] [facility] [place] WEIGHT MGMT CLASS 69441-4.63 [id number] Diagnos is: ICD-10- CM E66.09 Other obesity due to excess calorie s
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
CRISTAL LAZCANO M 09/06 [facility] [place] [facility] GROUP BEHAVE COUNS 2-10 85867-2.63 [id number] Diagnos is: ICD-10- CM E66.09 Other obesity due to excess calorie s
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
CRISTAL LAZCANO M 09/23 [facility] [place] [address]-2.63 [id number] Diagnos is: ICD-10- CM L71.8 Other rosacea
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
Cecily ONEILL 09/25 [facility] EXERCISE CLASS 71155-3.63 [id number] Diagnos is: ICD-10- CM Z72.3 Lack of physica l exercis e
CRISTAL LAZACNO M 09/30 [facility] [place] [facility] [place] LD GROUP BEHAVE COUNS 2-10 30705-5.63 [id number] Diagnos is: ICD-10- CM E66.09 Other obesity due to excess calorie s
EVAN KRAMER P 10/03 [facility] WEIGHT MGMT CLASS 02436-0.63 [id number] Diagnos is: ICD-10- CM Z68.29 Body mass index [BMI] 29.0-29 .9, adult<b r/> GORDON PATHAK A 10/10 [facility] [place] EXERCISE CLASS [id number] [id number] Diagnos is: ICD-10- CM Z72.3 Lack of physica l exercis e
CRISTAL LAZCANO LLY M 10/14 [facility] [place] [place] [facility] EXERCISE CLASS 24303-4.63 1. 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
Cecily ONEILL 10/16 [place] [facility] [place] [place] [facility] GROUP BEHAVE COUNS 2-10 23126-5.63 [id number].[id number] Diagnos is: ICD-10- CM E66.09 Other obesity due to excess calorie s
EVAN KRAMER P 10/17 [facility] EXERCISE CLASS 41834-6.63 [id number] Diagnos is: ICD-10- CM Z72.3 Lack of physica l exercis e
CRISTAL LAZCANO LLY M 10/18 [facility] EXERCISE CLASS 39992-4.63 1. 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
NENOKE LLY M 10/21 [facility] [place] [facility] Outpatient Encounter [id number] [id number] Guzman MENDOZA 10/22 [facility] POS AIRWAY PRESSURE FILTER 97301-0.63 1. Diagnos is: ICD-10- CM G47.30 Sleep apnea, unspeci fied
ST KATHARINA ARVIZU E P 10/22 [facility] EXERCISE CLASS 67115-7.63 1. 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
Cecily ONEILL 10/23 [facility] [place] [place] [facility] BHV IVNTJ GRP EA ADDL 27272-2.63 [id number] Diagnos is: ICD-10- CM Z68.30 Body mass index [BMI] 30.0-30 .9, adult<b r/> GORDON PATHAK 10/24 [place] [facility] UNLISTED PHYSCL MED/[place] PX 58582-4.63 [id number] Diagnos is: ICD-10- CM Z72.3 Lack of physica l exercis e
LARISA COATES 10/25 [facility] EXERCISE CLASS 34163-3.63 1. 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
CRISTAL LAZCANO 10/25 [facility] Outpatient Encounter [id number] [id number] 10/25 [facility] Outpatient Encounter [id number] [id number] 10/25 [facility] EXERCISE CLASS [id number] [id number] Diagnos is: ICD-10- CM Z72.3 Lack of physica l exercis e
CRISTAL LAZCANO M 10/28 [place] [facility] [place] [place] [facility] [place] COLLJ & INTERPJ DATA EA 30 D 45931-5.63 [id number] Diagnos is: ICD-10- CM G47.30 Sleep apnea, unspeci fied
ST AMANT,KATHARINA E P 10/29 [facility] [place] [place] [facility] [place] EXERCISE CLASS 15007-5.63 [id number] Diagnos is: ICD-10- CM Z72.3 Lack of physica l exercis e
Cecily ONEILL 10/30 [place] [facility] [place] [place] [facility] [place] [facility] BHV IVNTJ GRP EA ADDL [id number] [id number] Diagnos is: ICD-10- CM Z68.30 Body mass index [BMI] 30.0-30 .9, adult<b r/> GORDON PATHAK A 10/31 [place] [facility] [facility] EXERCISE CLASS [id number] [id number] Diagnos is: ICD-10- CM Z72.3 Lack of physica l exercis e
CRISTAL LAZCANO M 11/01 [facility] [place] [place] [facility] [place] [facility] EXERCISE CLASS [id number] [id number] Diagnos is: ICD-10- CM Z72.3 Lack of physica l exercis e
CRISTAL LAZCANO M 11/04 [facility] [place] [place] [facility] [place] [facility] EXERCISE CLASS 93242-1.63 [id number] Diagnos is: ICD-10- CM Z72.3 Lack of physica l exercis e
Cecily ONEILL SHANICE 11/06 [place] [facility] [place] [place] [facility] LD GROUP BEHAVE COUNS 2-10 53826-5.63 [id number] Diagnos is: ICD-10- CM E66.09 Other obesity due to excess calorie s
EVAN KRAMER P 11/07 [facility] [place] [facility] EXERCISE CLASS 26366-9.63 1. 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
Cecily ONEILL SHANICE 11/13 [place] [facility] [place] [place] [facility] LD HLTH BHV IVNTJ GRP EA ADDL [id number] [id number] Diagnos is: ICD-10- CM Z68.30 Body mass index [BMI] 30.0-30 .9, adult<b r/> GORDON PATHAK 11/14 [facility] [place] [facility] [place] EXERCISE CLASS 87025-5.63 1. 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
Cecily ONEILL SHANICE 11/15 [place] [facility] [place] [place] [facility] EXERCISE CLASS [id number] [id number] Diagnos is: ICD-10- CM Z72.3 Lack of physica l exercis e
CRISTAL LAZCANO 11/18 [place] [facility] [place] [facility] [place] [facility] EXERCISE CLASS 92015-6.63 1. 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
Cecily ONEILL SHANICE 11/20 [place] [facility] [place] [place] [facility] LD GROUP BEHAVE COUNS 2-10 65585-0.63 [id number] Diagnos is: ICD-10- CM E66.09 Other obesity due to excess calorie s
EVAN KRAMER P 11/21 [facility] [place] EXERCISE CLASS 87889-9.63 1. 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
MAICecily SHANICE 11/27 [place] [facility] [place] [facility] HLTH BHV IVNTJ GRP EA ADDL [id number] [id number] Diagnos is: ICD-10- CM Z68.30 Body mass index [BMI] 30.0-30 .9, adult<b r/> GORDON PATHAK A 11/28 [facility] [place] [facility] EXERCISE CLASS 02720-9.63 1. 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
LARISA COATES 11/29 [place] [facility] [place] [place] [facility] [place] [facility] EXERCISE CLASS 88979-6.63 1. 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
CRISTAL LAZCANO M 12/02 [place] [facility] [place] [facility] COLLJ & INTERPJ DATA EA 30 D 05185-6.63 [id number] Diagnos is: ICD-10- CM G47.30 Sleep apnea, unspeci fied
ST AMANT,KATHARINA E P 12/02 [facility] [place] [facility] EXERCISE CLASS 13196-9.63 1. 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
CRISTAL LAZCANO M 12/04 [place] [facility] [place] [place] [facility] GROUP BEHAVE COUNS 2-10 [id number] [id number] Diagnos is: ICD-10- CM E66.09 Other obesity due to excess calorie s
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<b r/> RAKESH GRACIA LIE CHENTE 12/10 [facility] [place] [place] [facility] [place] [facility] IV[facility]P EA ADDL [id number] [id number] Diagnos is: ICD-10- CM Z73.3 Stress, not elsewhe re classif ied<br/ > CHALOJOSE ALBERTO CORCORAN RA 12/10 [place] [facility] [place] [facility] [place] [facility] EA ADDL [id number] [id number] Diagnos is: ICD-10- CM Z68.30 Body mass index [BMI] 30.0-30 .9, adult<b r/> GORDON PATHAK 12/12 [place] [facility] [place] [facility] EXERCISE CLASS [id number] [id number] Diagnos is: ICD-10- CM Z72.3 Lack of physica l exercis e
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
EVAN KRAMER CHAEL P 12/26 [place] [facility] IV[facility]P EA ADDL [id number] [id number] Diagnos is: ICD-10- CM Z68.30 Body mass index [BMI] 30.0-30 .9, adult<b r/> GORDON PATHAK A 01/02 [place] [facility] [facility] PT EDUCATION NOC GROUP 17417-5.63 1. 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 38 Diagnos is: ICD-10- CM E66.09 Other obesity due to excess calorie s
EVAN KRAMER CHAEL P 01/09 [facility] [place] [facility] IVNTJ GRP EA ADDL [id number] [id number] Diagnos is: ICD-10- CM Z68.30 Body mass index [BMI] 30.0-30 .9, adult<b r/> GORDON PATHAK A 01/16 [facility] [place] [facility] OFFICE O/P EST MOD 30 MIN 60781-0.63 1. Diagnos is: ICD-10- CM G47.30 Sleep apnea, unspeci fied
Guzman MENDOZA 01/20 [facility] [place] [facility] [facility] OFFICE O/P EST MOD 30 MIN 60059-9.68 [id number] Diagnos is: ICD-10- CM G47.33 Obstruc tive sleep apnea (adult) (pediat amparo)
ARELIS NUNO 01/21 [facility] [place] [facility] Outpatient Encounter [id number] Diagnos is: ICD-10- CM G47.33 Obstruc tive sleep apnea (adult) (pediat amparo)
NUNO,ARELIS 01/21 [facility] [place] [facility] [place] [facility] BEHAVE COUNS 2-10 68489-7.63 [id number] Diagnos is: ICD-10- CM E66.811 Obesity , class 1
NIA,MI CHAEL P 01/23 [place] [facility] BEHAVE COUNS 2-10 [id number] [id number] Diagnos is: ICD-10- CM E66.811 Obesity , class 1
NIA,MI CHAEL P 01/30 [place] [facility] IVNTJ GRP EA ADDL [id number] [id number] Diagnos is: ICD-10- CM Z68.30 Body mass index [BMI] 30.0-30 .9, adult<b r/> GORDON PATHAK A 02/06 [place] [facility] IVNTJ GRP EA ADDL [id number] [id number] Diagnos is: ICD-10- CM Z68.30 Body mass index [BMI] 30.0-30 .9, adult<b r/> GORDON PATHAK A 02/13 [place] [facility] OFFICE O/P EST MOD 30 MIN 59979-0.68 [id number] Diagnos is: ICD-10- CM G47.33 Obstruc tive sleep apnea (adult) (pediat amparo)
NUNO,ARELIS 02/25 [facility] [place] [facility] Outpatient Encounter [id number] [id number] Diagnos is: ICD-10- CM G47.33 Obstruc tive sleep apnea (adult) (pediat amparo)
NUNO,ARELIS 02/25 [facility] IVNTJ GRP EA ADDL [id number] [id number] Diagnos is: ICD-10- CM Z68.30 Body mass index [BMI] 30.0-30 .9, adult<b r/> GORDON PATHAK A 02/27 [facility] [place] [facility] BEHAVE COUNS 2-10 [id number] [id number] Diagnos is: ICD-10- CM E66.811 Obesity , class 1
EVAN KRAMER P 03/06 [facility] [facility] BEHAVE COUNS 2-10 45280-8.63 [id number] Diagnos is: ICD-10- CM E66.811 Obesity , class 1
EVAN KRAMER P 03/13 [facility] IELD Social History Combined list of available smoking, tobacco, and other social history from [facility] of Defense and [facility] facilities. Social History Type Response Date Comment Sourc e Tobacco smoking status [place] [facility]CO FORMER USER 01/21/2024 [facility] [place] [facility] History of tobacco use CO-TOBACCO QUIT 15 YRS OR MORE 01/21/2024 [facility] [...] quit [facility] 1984 [facility] [place] [facility] Plan of Care List of future care activities from Department of Veterans Affairs facilities. Additional future care activities may be listed in the Assessment and Plan section. Date/Time Care Activity Care Activity Detail Facili ty 07/21/2024 AMBULATORY - MEDICINE AMBULATORY - MEDICI [place] [facility] [place] [facility]
== END 2024-03-31 09:18 | disposition home or self-care (01) ==
LOC: HO.HOSX 09:17
PROVIDERS: Visit Provider Physician Assistant
DX: M25.561 Pain in right knee (principal); M25.562 Pain in left knee; M17.12 Unilateral primary osteoarthritis, left knee
CPT/HCPCS: 73560; 99212

== ENCOUNTER 2024-03-31 09:58 | Outpatient (AMB) | payer MEDICARE, OTHER, SELFPAY ==
--- NOTE | 2024-03-31 10:03 | A.OFFVIS_ITS ---
Intake Visit Reasons: New Prob: Left knee pain Intake Note: Bandar is a 83 year old male who presents today for a evaluation of his left knee pain/swelling. No hx of injury. Hx of pain 10-15 years ago when his knee was swollen. Hx of drainage and injection with no relief. Patient reports ongoing pain since the beginning of January. He states that he was having issues with his back and his PCP advised him to where compression socks which gave him mild relief. Allergies morphine Allergy (Unknown, Verified 03/26/24 15:28) Unknown ENVIROMENTAL Allergy (Unknown, Uncoded 03/26/24 15:28) POST NASAL DRIP HPI HPI New Prob: Left knee pain: Details: Mr. Beauchamp is an 83-year-old male who presents to the office today for complaints of left knee pain and swelling. He reports that this began roughly 10 days after he had a flare-up with his lower back. He was instructed by his PCP to rest in bed for 10 days for his lower back pain. After 10days in bed he began to ambulate with a walker and developed severe left knee pain and swelling. He was seen in the emergency department in fear of a blood clot. An ultrasound was obtained and negative for DVT. He was prescribed meloxicam and instructed that he should wear compression stockings. He reports that this has been helping with his pain and inflammation. He reports today that his pain has improved but continues to have some discomfort. He has a vacation planned for 03/1924 and will return back the following week. [facility] Medical History Painful arc syndrome of right shoulder Nocturia Lipid disorder Other specified hypothyroidism Prolactinoma Hypertension, essential Surgical History History of biopsy History of surgery Family History Father No problems noted. Mother Colon cancer Brother No problems noted. Brother No problems noted. Sister No problems noted. Social History Housing: House Alcohol intake: never Patient Tobacco Use Status: Former Tobacco user e-Cigarette/Vaping Use: Never Used service: Yes Current occupational status: retired Cognitive needs: No Hearing needs: No Vision needs: No Review of Systems Const All systems reviewed & are unremarkable except as noted in HPI and below Physical Exam Const General: cooperative, healthy appearing and no acute distress Resp Effort & Inspection: normal respiratory effort and able to speak in complete sentences Cardio Rate: regular rate Peripheral pulses: Peripheral pulses 2+ throughout GI Palpation (GI): Soft to palpation Skin Lesions: no lesions Rashes: no rashes Extrem Other: Left knee mild effusion. Mild tenderness to palpation along the medial joint line. No tenderness to palpation lateral joint line. Range of motion 0-100 degrees. NVI. Assessment & Plan Assessment & Plan (1) Osteoarthritis of left knee: Code(s): M17.12 - Unilateral primary osteoarthritis, left knee Category: Medical Plan: Mr. Beauchamp is an 83-year-old male who presents to the office today for complaints of left knee pain and swelling. He reports that this began roughly 10 days after he had a flare-up with his lower back. He was instructed by his PCP to rest in bed for 10 days for his lower back pain. After 10days in bed he began to ambulate with a walker and developed severe left knee pain and swelling. He was seen in the emergency department in fear of a blood clot. An ultrasound was obtained and negative for DVT. He was prescribed meloxicam and instructed that he should wear compression stockings. He reports that this has been helping with his pain and inflammation. He reports today that his pain has improved but continues to have some discomfort. He has a vacation planned for 03/1924 and will return back the following week. We discussed the role of cortisone injections for the left knee however the patient's pain and inflammation has been improving. Therefore we have decided to defer at this time. I did send a refill of meloxicam 15 mg to be taken twice a day for inflammation as needed. Does have a vacation planned for 04/13/2024 and will be on an airplane for roughly 3 hours. I instructed that he should get up and walk every hour and wears compression stockings. Should the patient continue to have pain he would like to schedule a follow-up appointment when he returns for possible cortisone injection. He may cancel this appointment if he no longer needs to at that time. X-rays obtained in the office today were reviewed by me, Abbey Kody, PA-C, and are significant for osteoarthritis. No acute fracture dislocation. Orders: Orders XR knee RT 1V Today M25.569 - Pain in unspecified knee XR knee LT 2V Today M25.569 - Pain in unspecified knee Medications: New meloxicam 15 mg PO DAILY 30 tabs 0RF 30 days Coding Level of Care Code Est Pt Level 3 (75897) Diagnoses Osteoarthritis of left knee M17.12
--- OUTSIDE RECORDS SUMMARY | 2024-03-31 10:49 | XMS_ITS | Continuity of Care Document ---
Author Name [facility] Organization [facility] Care Team Providers Care Human Resources Executive Assistant Name Role Phone [facility] Unavailable Unavailable Problems Combined list of problems [...] ICD-10-CM E66.811 Obesity, class 1 Active Diagnosis [place] Diagnosis: ICD-10-CM Z68.30 Body mass index [BMI] 30.0-30.9, adult Active Diagnosis [facility] Diagnosis: ICD-10-CM G47.33 Obstructive sleep apnea (adult) (pediatric) Active Diagnosis [facility] Diagnosis: ICD-10-CM G47.30 Sleep apnea, unspecified Active Diagnosis [facility] Diagnosis: ICD-10-CM E66.09 Other obesity due to excess calories Active Diagnosis [facility] Diagnosis: ICD-10-CM Z71.3 Dietary counseling and surveillance Active Diagnosis [facility] Diagnosis: ICD-10-CM Z72.3 Lack of physical exercise Active Diagnosis [facility] Diagnosis: ICD-10-CM Z73.3 Stress, not elsewhere classified Active Diagnosis [facility] Diagnosis: ICD-10-CM Z68.29 Body mass index [BMI] 29.0-29.9, adult Active Diagnosis [facility] Diagnosis: ICD-10-CM Z46.0 Encounter for fit/adjst [...] TABLET BY MOUTH DAILY [facility]AL [facility] BROMOCRIPTI NE MESYLATE 0.8MG TAB TAKE THREE TABLETS BY MOUTH ONCE DAILY ORAL ACTIVE ,2016 [facility] CALCIUM 200MG (CA CITRATE-950 MG) TAB TAKE THREE TABLETS BY MOUTH DAILY ORAL ACTIVE ,2016 [facility] CARBOXYMETH YLCELLULOSE NA 0.5% SOLN,OPH INSTILL 1 DROP INTO EACH EYE FOUR TIMES A DAY FOR DRY EYE OPHTHA LMIC ACTIVE 09/25/2024 [id number] Cecily GEE ICHELE 2023 45 [facility] CETIRIZINE HCL 10MG TAB TAKE ONE TABLET BY MOUTH DAILY ORAL ACTIVE BRITT, [facility] 2016 [facility] CHOLECALCIF FORTINO 25MCG (1,000UNIT) TAB TAKE ONE TABLET BY MOUTH DAILY ORAL ACTIVE BRITT, [facility] 2016 [facility] LEVOTHYROXI NE NA 125MCG TAB (SYNTHROID) TAKE ONE TABLET BY MOUTH EVERY MORNING 30 MINUTES BEFORE BREAKFAS T ORAL ACTIVE LEN MENDOZA 2023 [facility] LISINOPRIL 5MG TAB TAKE ONE TABLET BY MOUTH ONCE DAILY TO CONTROL BLOOD PRESSURE ORAL 01/27/2024 [id number] LEN MENDOZA 2022 90 [facility] [place] POTASSIUM 100MG TAB TAKE ONE TABLET BY MOUTH ONCE DAILY ORAL ACTIVE LEN MENDOZA 2017 [facility] METOPROLOL SUCCINATE 50MG TAB,SA TAKE ONE TABLET BY MOUTH ONCE DAILY ORAL ACTIVE LEN MENDOZA 2022 [facility] OTHER CAP/TAB TAKE 5 MG BY MOUTH DAILY ORAL ACTIVE BALWINDER, [facility] 2016 [facility] TAMSULOSIN HCL 0.4MG CAP TAKE 1 CAPSULE BY MOUTH ONCE DAILY ORAL ACTIVE LEN MENDOZA 2019 [facility] Immunizations Combined list of available immunizations from the Department of Defense and Veterans Affairs facilities. Immunization Series Date Given Administered By Site Reaction Lot Number CVX Code Drug Rework Machine Operator Status Comments Source INFLUENZA, HIGH-DOSE, TRIVALENT, PF 2023 SHE REID SSA H RIGHT DELTO ID [id number] 135 complet ed [facility] INFLUENZA, HIGH-DOSE, QUADRIVALENT 2022 BIENVENIDO BANKS LEFT DELTO ID [id number] 197 complet ed [facility] COVID-19 (MODERNA), MRNA, LNP-S, PF, 100 MCG/0.5ML DOSE OR 50 MCG/0.25ML DOSE 3 2021 207 complet ed MOD; [id number]; 2 [facility] COVID-19 (MODERNA), MRNA, LNP-S, PF, 100 MCG OR 50 MCG DOSE 3 2020 207 complet ed MOD; [id number]; 2 [facility] INFLUENZA VACCINE, QUADRIVALENT, ADJUVANTED 2020 205 complet ed [facility] COVID-19 (MODERNA), MRNA, LNP-S, PF, 100 MCG/0.5 ML DOSE 2 2020 207 complet ed MOD; [id number]; 1 [facility] COVID-19 (MODERNA), MRNA, LNP-S, PF, 100 MCG/0.5 ML DOSE 1 2020 207 complet ed MOD; [id number]; 1 [facility] [...] Deltoid [facility] PNEUMOCOCCAL CONJUGATE PCV 13 2017 133 [...] Jul 12, 2023 10:12 AM Reporting Lab: [facility] [address] Performing Lab: [facility] [place] [facility] [address] [address] [facility] BASIC METABOLIC PANEL (non-fast ing) GLUCOSE [MASS/VOLUM E] IN SERUM OR PLASMA 95 mg/dL 65 - 100 07/18 Specimen Type: SERUM No comment entered. Ordering Provider: ORACIO MENDOZA Report Released Date/Time: Jul 12, 2023 10:12 AM Reporting Lab: [facility] [address] Performing Lab: [facility]RM[facility] [place] [address] [address] [facility] BASIC METABOLIC PANEL (non-fast ing) SODIUM [MOLES/VOLU ME] IN SERUM OR PLASMA 142 mmol/L 135 - 145 07/18 Specimen Type: SERUM No comment entered. Ordering Provider: ORACIO MENDOZA Report Released Date/Time: Jul 12, 2023 10:12 AM Reporting Lab: [facility] [address] Performing Lab: [facility]ITALRMARSH[facility]THTRN [place] [facility] [address] [address] [facility]OSPITALRRMC [facility]OSPITALN [facility]ITALUSE [facility] BASIC METABOLIC PANEL (non-fast ing) POTASSIUM [MOLES/VOLU ME] IN SERUM OR PLASMA 4.7 mmol/L 3.5 - 5.0 07/18 Specimen Type: SERUM No comment entered. Ordering Provider: ORACIO MENDOZA Report Released Date/Time: Jul 12, 2023 10:12 AM Reporting Lab: [facility]ITALRMAR[facility]THTRN [facility]ITALUSE[facility] [address] [address] Performing Lab: [facility]PITALRRMC [facility] HOSPITALN [facility]ITALUSE[facility] [address] [address] [facility]ITALUSE [facility] BASIC METABOLIC PANEL (non-fast ing) CHLORIDE [MOLES/VOLU ME] IN SERUM OR PLASMA 107 mmol/L 100 - 110 07/18 Specimen Type: SERUM No comment entered. Ordering Provider: ORACIO MENDOZA Report Released Date/Time: Jul 12, 2023 10:12 AM Reporting Lab: [facility]ITALUSE[facility] [address] [address] Performing Lab: [facility]ITALUSE[facility] [address] [address] [facility] BASIC METABOLIC PANEL (non-fast ing) CARBON DIOXIDE, TOTAL [MOLES/VOLU ME] IN SERUM OR PLASMA 28 meq/L 20 - 30 07/18 Specimen Type: SERUM No comment entered. Ordering Provider: ORACIO MENDOZA Report Released Date/Time: Jul 12, 2023 10:12 AM Reporting Lab: [facility]ITALRMARSH[facility] SOUTHTRN [facility]ITALUSE[facility] [address] [address] Performing Lab: [facility]ITALRRMC [facility] HOSPITALN [facility]ITALUSE[facility] [address] [address] [facility] BASIC METABOLIC PANEL (non-fast ing) CREATININE [MASS/VOLUM E] IN SERUM OR PLASMA 0.90 mg/dL 0.50 - 1.40 07/18 Specimen Type: SERUM No comment entered. Ordering Provider: ORACIO MENDOZA Report Released Date/Time: Jul 12, 2023 10:12 AM Reporting Lab: [facility] [place] [facility] [address] [address] Performing Lab: [facility] [place] [facility] [address] [address] [facility] [place] [facility] BASIC METABOLIC PANEL (non-fast ing) GLOMERULAR FILTRATION RATE/1.73 SQ M.PREDICTED [VOLUME RATE/AREA] IN SERUM, PLASMA OR BLOOD BY CREATININE- BASED FORMULA (CKD-EPI 2020) 86 mL/min 60 07/18 Specimen Type: SERUM No comment entered. Ordering Provider: ORACIO MENDOZA Report Released Date/Time: Jul 12, 2023 10:12 AM Reporting Lab: [facility] [place] [address] [address] Performing Lab: [facility] [place] [address] [address] [facility] [facility] CBC LEUKOCYTES [#/VOLUME] IN BLOOD BY AUTOMATED COUNT 7.33 10*3/u L 4.50 - 11.00 07/18 Specimen Type: BLOOD No comment entered. Ordering Provider: ORACIO MENDOZA Report Released Date/Time: Jul 12, 2023 10:12 AM Reporting Lab: [facility] [place] [address] [address] Performing Lab: [facility] [place] [address] [address] [facility] [place] [facility] CBC ERYTHROCYTE S [#/VOLUME] IN BLOOD BY AUTOMATED COUNT 4.94 10*6/u L 4.23 - 5.66 07/18 Specimen Type: BLOOD No comment entered. Ordering Provider: ORACIO MENDOZA Report Released Date/Time: Jul 12, 2023 10:12 AM Reporting Lab: [facility] [place] [address] [address] Performing Lab: [facility] [place] [address] [place] [address] [facility] [place] [facility] CBC HEMOGLOBIN [MASS/VOLUM E] IN BLOOD 15.1 g/dL 12.8 - 17 07/18 Specimen Type: BLOOD No comment entered. Ordering Provider: ORACIO MENDOZA Report Released Date/Time: Jul 12, 2023 10:12 AM Reporting Lab: [facility] [place] [facility] [address] [address] Performing Lab: [facility] [place] [facility] [address] [address] [facility] [place] [facility] CBC HEMATOCRIT [VOLUME FRACTION] OF BLOOD BY AUTOMATED COUNT 46.2 39.2 - 50.4 07/18 Specimen Type: BLOOD No comment entered. Ordering Provider: ORACIO MENDOZA Report Released Date/Time: Jul 12, 2023 10:12 AM Reporting Lab: [facility] [place] [address] [address] Performing Lab: [facility] [place] [address] [address] [facility] [place] [facility] CBC MCV [ENTITIC VOLUME] BY AUTOMATED COUNT 93.5 fL 82 - 99 07/18 Specimen Type: BLOOD No comment entered. Ordering Provider: ORACIO MENDOZA Report Released Date/Time: Jul 12, 2023 10:12 AM Reporting Lab: [facility] [place] [address] [address] Performing Lab: [facility] [place] [address] [address] [facility] [place] [facility] CBC MCHC [MASS/VOLUM E] BY AUTOMATED COUNT 32.7 g/dL 30.8 - 35.1 07/18 Specimen Type: BLOOD No comment entered. Ordering Provider: ORACIO MENDOZA Report Released Date/Time: Jul 12, 2023 10:12 AM Reporting Lab: [facility] [place] [address] [address] Performing Lab: [facility] [place] [facility] [address] [address] [facility] CBC PLATELETS [#/VOLUME] IN BLOOD BY AUTOMATED COUNT 181 10*3/u L 140 - 360 07/18 Specimen Type: BLOOD No comment entered. Ordering Provider: ORACIO MENDOZA Report Released Date/Time: Jul 12, 2023 10:12 AM Reporting Lab: [facility] [place] [facility] [address] [address] Performing Lab: [facility] [place] [facility] [address] [address] [facility] [place] [facility] CBC ERYTHROCYTE DISTRIBUTIO N WIDTH [RATIO] BY AUTOMATED COUNT 13.2 12.0 - 16.0 07/18 Specimen Type: BLOOD No comment entered. Ordering Provider: ORACIO MENDOZA Report Released Date/Time: Jul 12, 2023 10:12 AM Reporting Lab: [facility] [facility] [address] [address] Performing Lab: [facility] [place] [facility] [address] [address] [facility] [place] [facility] CBC MCH [ENTITIC MASS] BY AUTOMATED COUNT 30.6 pg 26.2 - 32.6 07/18 Specimen Type: BLOOD No comment entered. Ordering Provider: ORACIO MENDOZA Report Released Date/Time: Jul 12, 2023 10:12 AM Reporting Lab: [facility] [address] [address] Performing Lab: [facility] [place] [facility] [address] [address] [facility] [place] [facility] LIPID PANEL, NON FASTING CHOLESTEROL [MASS/VOLUM E] IN SERUM OR PLASMA 119 mg/dL 07/18 Specimen Type: SERUM No comment entered. Ordering Provider: ORACIO MENDOZA Report Released Date/Time: Jul 12, 2023 10:12 AM Reporting Lab: [facility] [place] [facility] [address] [address] Performing Lab: [facility]ITALRMARSH[facility] SOUTHTRN [facility]PITALUSETS [facility] [address] [address] [facility]ITALRRMC [facility]OSPITALN [facility]ITALUSE [facility] LIPID PANEL, NON FASTING TRIGLYCERID E [MASS/VOLUM E] IN SERUM OR PLASMA 48 mg/dL 0 - 150 07/18 Specimen Type: SERUM No comment entered. Ordering Provider: ORACIO MENDOZA Report Released Date/Time: Jul 12, 2023 10:12 AM Reporting Lab: [facility] HOSPITALRL TRN [facility]OSPITALUSETS [facility] [address] [address] Performing Lab: [facility]ITALRRMC [facility] HOSPITALN [facility] [address] [address] [facility] LIPID PANEL, NON FASTING CHOLESTEROL IN LDL [MASS/VOLUM E] IN SERUM OR PLASMA BY CALCULATION 63 mg/dL 0 - 129 07/18 Specimen Type: SERUM No comment entered. Ordering Provider: ORACIO MENDOZA Report Released Date/Time: Jul 12, 2023 10:12 AM Reporting Lab: [facility]ITALRRMC [facility] HOSPITALN [facility]ITALUSE[facility] [address] [address] Performing Lab: [facility]ITALRRMC [facility] HOSPITALN [facility]ITALUSE[facility] [address] [address] [facility] LIPID PANEL, NON FASTING CHOLESTEROL .TOTAL/CHOL ESTEROL IN HDL [MASS RATIO] IN SERUM OR PLASMA 2.6 07/18 Specimen Type: SERUM No comment entered. Ordering Provider: ORACIO MENDOZA Report Released Date/Time: Jul 12, 2023 10:12 AM Reporting Lab: [facility]PITALRMARSHALL [facility] SOUTHTRN [facility]ITALUSE[facility] [address] [address] Performing Lab: [facility]ITALRMARSHALL [facility] SOUTHTRN [facility]ITALUSE[facility] [address] [address] [facility]ITALUSE [facility] LIPID PANEL, NON FASTING CHOLESTEROL IN HDL [MASS/VOLUM E] IN SERUM OR PLASMA 46 mg/dL 40 - 60 07/18 Specimen Type: SERUM No comment entered. Ordering Provider: ORACIO MENDOZA Report Released Date/Time: Jul 12, 2023 10:12 AM Reporting Lab: [facility] [address] [facility] [address] Performing Lab: [facility] [place] [facility] [address] [facility] [address] [facility] LIVER FUNCTION PROTEIN [MASS/VOLUM E] IN SERUM OR PLASMA 6.7 g/dL 6.0 - 8.3 07/18 Specimen Type: SERUM No comment entered. Ordering Provider: ORACIO MENDOZA Report Released Date/Time: Jul 12, 2023 10:12 AM Reporting Lab: [facility] [place] [facility] [address] [facility] [address] Performing Lab: [facility] [place] [facility] [address] [address] [facility] [place] [facility] LIVER FUNCTION ALBUMIN [MASS/VOLUM E] IN SERUM OR PLASMA 3.8 g/dL 3.5 - 5.0 07/18 Specimen Type: SERUM No comment entered. Ordering Provider: ORACIO MENDOZA Report Released Date/Time: Jul 12, 2023 10:12 AM Reporting Lab: [facility] [place] [facility] [address] [address] Performing Lab: [facility] [place] [facility] [address] [address] [facility] [place] [facility] LIVER FUNCTION ALKALINE PHOSPHATASE [ENZYMATIC ACTIVITY/VO LUME] IN SERUM OR PLASMA 55 U/L 40 - 150 07/18 Specimen Type: SERUM No comment entered. Ordering Provider: ORACIO MENDOZA Report Released Date/Time: Jul 12, 2023 10:12 AM Reporting Lab: [facility] [place] [facility] [address] [facility] [address] Performing Lab: [facility] [place] [facility] [address] [address] [facility] [place] [facility] LIVER FUNCTION ASPARTATE AMINOTRANSF ERASE [ENZYMATIC ACTIVITY/VO LUME] IN SERUM OR PLASMA 26 U/L 5 - 34 07/18 Specimen Type: SERUM No comment entered. Ordering Provider: ORACIO MENDOZA Report Released Date/Time: Jul 12, 2023 10:12 AM Reporting Lab: [facility] [place] [facility] [address] [address] Performing Lab: [facility] [place] [facility] [address] [address] [facility] [place] [facility] LIVER FUNCTION ALANINE AMINOTRANSF ERASE [ENZYMATIC ACTIVITY/VO LUME] IN SERUM OR PLASMA 26 U/L 07/18 Specimen Type: SERUM No comment entered. Ordering Provider: ORACIO MENDOZA Report Released Date/Time: Jul 12, 2023 10:12 AM Reporting Lab: [facility] [place] [facility] [address] [address] Performing Lab: [facility] [place] [address] [address] [facility] [facility] LIVER FUNCTION BILIRUBIN.T OTAL [MASS/VOLUM E] IN SERUM OR PLASMA 0.6 mg/dL 0.2 - 1.2 07/18 Specimen Type: SERUM No comment entered. Ordering Provider: ORACIO MENDOZA Report Released Date/Time: Jul 12, 2023 10:12 AM Reporting Lab: [facility] [place] [address] [address] Performing Lab: [facility] [place] [facility] [address] [address] [facility] [place] [facility] TSH THYROTROPIN [UNITS/VOLU ME] IN SERUM OR PLASMA 0.67 u[IU]/ mL 0.35 - 5.00 07/18 Specimen Type: SERUM No comment entered. Ordering Provider: ORACIO MENDOZA Report Released Date/Time: Jul 12, 2023 10:12 AM Reporting Lab: [facility] [place] [address] [address] Performing Lab: [facility] [place] [address] [address] [facility] [place] [facility] CBC LEUKOCYTES [#/VOLUME] IN BLOOD BY AUTOMATED COUNT 6.50 10*3/u L 4.50 - 11.00 01/24 Specimen Type: BLOOD No comment entered. Ordering Provider: ORACIO MENDOZA Report Released Date/Time: Jan 15, 2023 04:07 PM Reporting Lab: [facility] [place] [facility] [address] [place] [address] Performing Lab: [facility] [place] [facility] [address] [address] [facility] [place] CBC ERYTHROCYTE S [#/VOLUME] IN BLOOD BY AUTOMATED COUNT 4.73 10*6/u L 4.23 - 5.66 01/24 Specimen Type: BLOOD No comment entered. Ordering Provider: ORACIO MENDOZA Report Released Date/Time: Jan 15, 2023 04:07 PM Reporting Lab: [facility] [place] [address] [address] Performing Lab: [facility] [place] [address] [address] [facility] WSTRN [place] [facility] CBC HEMOGLOBIN [MASS/VOLUM E] IN BLOOD 14.7 g/dL 12.8 - 17 01/24 Specimen Type: BLOOD No comment entered. Ordering Provider: ORACIO MENDOZA Report Released Date/Time: Jan 15, 2023 04:07 PM Reporting Lab: [facility] [place] [facility] [address] [place] [address] Performing Lab: [facility] [place] [facility] [address] [place] [address] [facility] [place] [facility] CBC HEMATOCRIT [VOLUME FRACTION] OF BLOOD BY AUTOMATED COUNT 44.2 39.2 - 50.4 01/24 Specimen Type: BLOOD No comment entered. Ordering Provider: ORACIO MENDOZA Report Released Date/Time: Jan 15, 2023 04:07 PM Reporting Lab: [facility] [place] [address] [address] Performing Lab: [facility] [place] [facility] [address] [facility] [address] [facility] [place] [facility] CBC MCV [ENTITIC VOLUME] BY AUTOMATED COUNT 93.4 fL 82 - 99 01/24 Specimen Type: BLOOD No comment entered. Ordering Provider: ORACIO MENDOZA Report Released Date/Time: Jan 15, 2023 04:07 PM Reporting Lab: [facility] [place] [facility] [address] [facility] [address] Performing Lab: [facility] [place] [facility] [address] [address] [facility] [place] [facility] CBC MCHC [MASS/VOLUM E] BY AUTOMATED COUNT 33.3 g/dL 30.8 - 35.1 01/24 Specimen Type: BLOOD No comment entered. Ordering Provider: ORACIO MENDOZA Report Released Date/Time: Jan 15, 2023 04:07 PM Reporting Lab: [facility] [place] [facility] [address] [facility] [address] Performing Lab: [facility] [place] [facility] [address] [address] [facility] [place] [facility] CBC PLATELETS [#/VOLUME] IN BLOOD BY AUTOMATED COUNT 194 10*3/u L 140 - 360 01/24 Specimen Type: BLOOD No comment entered. Ordering Provider: ORACIO MENDOZA Report Released Date/Time: Jan 15, 2023 04:07 PM Reporting Lab: [facility] [place] [facility] [address] [address] Performing Lab: [facility] [place] [facility] [address] [address] [facility] [place] [facility] CBC ERYTHROCYTE DISTRIBUTIO N WIDTH [RATIO] BY AUTOMATED COUNT 13.0 12.0 - 16.0 01/24 Specimen Type: BLOOD No comment entered. Ordering Provider: ORACIO MENDOZA Report Released Date/Time: Jan 15, 2023 04:07 PM Reporting Lab: [facility] [place] [facility] [address] [address] Performing Lab: [facility] [place] [facility] [address] [address] [facility]RL [facility] [place] [facility] CBC MCH [ENTITIC MASS] BY AUTOMATED COUNT 31.1 pg 26.2 - 32.6 01/24 Specimen Type: BLOOD No comment entered. Ordering Provider: ORACIO MENDOZA Report Released Date/Time: Jan 15, 2023 04:07 PM Reporting Lab: [facility] [place] [facility] [address] [address] Performing Lab: [facility] [place] [facility] [address] [address] [facility] [place] [facility] LIPID PANEL FASTING CHOLESTEROL [MASS/VOLUM E] IN SERUM OR PLASMA 109 mg/dL 01/24 Specimen Type: SERUM No comment entered. Ordering Provider: ORACIO MENDOZA Report Released Date/Time: Jan 15, 2023 04:07 PM Reporting Lab: [facility] [place] [facility] [address] [address] Performing Lab: [facility] [place] [facility] [address] [address] [facility] [place] [facility] LIPID PANEL FASTING TRIGLYCERID E [MASS/VOLUM E] IN SERUM OR PLASMA 50 mg/dL 0 - 150 01/24 Specimen Type: SERUM No comment entered. Ordering Provider: ORACIO MENDOZA Report Released Date/Time: Jan 15, 2023 04:07 PM Reporting Lab: [facility] [place] [facility] [address] [address] Performing Lab: [facility] [place] [facility] [address] [address] [facility] [place] [facility] LIPID PANEL FASTING CHOLESTEROL IN LDL [MASS/VOLUM E] IN SERUM OR PLASMA BY CALCULATION 59 mg/dL 0 - 129 01/24 Specimen Type: SERUM No comment entered. Ordering Provider: ORACIO MENDOZA Report Released Date/Time: Jan 15, 2023 04:07 PM Reporting Lab: [facility] [place] [facility] [address] [address] Performing Lab: [facility] [place] [facility] [address] [address] [facility] [place] [facility] LIPID PANEL FASTING CHOLESTEROL .TOTAL/CHOL ESTEROL IN HDL [MASS RATIO] IN SERUM OR PLASMA 2.7 01/24 Specimen Type: SERUM No comment entered. Ordering Provider: ORACIO MENDOZA Report Released Date/Time: Jan 15, 2023 04:07 PM Reporting Lab: [facility] [place] HOSPITALUSETS [facility] [address] [address] Performing Lab: [facility]ITALRL TRN [facility]ITALUSE[facility] [address] [address] [facility]OSPITALRRMC [facility]ITALN [facility]OSPITALUSE [facility] LIPID PANEL FASTING CHOLESTEROL IN HDL [MASS/VOLUM E] IN SERUM OR PLASMA 40 mg/dL 40 - 60 01/24 Specimen Type: SERUM No comment entered. Ordering Provider: ORACIO MENDOZA Report Released Date/Time: Jan 15, 2023 04:07 PM Reporting Lab: [facility]OSPITALRMARSHALL [facility]ICAL [facility] SOUTHTRN [facility]PITALUSE[facility] [address] [address] Performing Lab: [facility]PITALRL TRN [facility]PITALUSETS [facility] [address] [address] [facility]PITALRL [facility]OSPITALUSE [facility] THYROID T4 FREE(FT4) THYROXINE (T4) FREE [MASS/VOLUM E] IN SERUM OR PLASMA 1.30 ng/dL 0.6 - 1.6 01/24 Specimen Type: SERUM No comment entered. Ordering Provider: ORACIO MENDOZA Report Released Date/Time: Jan 15, 2023 04:07 PM Reporting Lab: [facility]ITALRL [facility] [place] [facility] [address] [address] Performing Lab: [place] [facility] [place] [facility] [address] [address] [facility]ITALRL TRN [place] [facility] TSH THYROTROPIN [UNITS/VOLU ME] IN SERUM OR PLASMA 0.36 u[IU]/ mL 0.35 - 5.00 01/24 Specimen Type: SERUM No comment entered. Ordering Provider: ORACIO MENDOZA Report Released Date/Time: Jan 15, 2023 04:07 PM Reporting Lab: [facility] [address] [address] Performing Lab: [facility] [address] [address] [facility] VITAMIN D (25-OH) 25-HYDROXYV ITAMIN D3 [MASS/VOLUM E] IN SERUM OR PLASMA 46 ng/mL 20 - 50 01/24 Specimen Type: SERUM No comment entered. Ordering Provider: ORACIO MENDOZA Report Released Date/Time: Jan 15, 2023 04:07 PM Reporting Lab: [facility] [address] [address] Performing Lab: [address] [address] [facility] Vital Signs Combined list of inpatient and [...] [facility] Encounters from the Department of Defense facilities going back up to 280 months. Location Location Details Encounter Type Encounter Number Reason For Visit Attending Provider ADM Date DC Date Status Disposition Source [facility] EX[facility] CLASS [id number] Diagnos is: ICD-10- CM Z72.3 Lack of physica l exercis e
Cecily ONEILLIN 09/20 [facility] [place] [facility] [place] [facility] BEHAVE COUNS 2-10 [id number] [id number] Diagnos is: ICD-10- CM E66.09 Other obesity due to excess calorie s
EVAN KRAMER P 09/21 [place] [facility] EX[facility] CLASS [id number] Diagnos is: ICD-10- CM Z72.3 Lack of physica l exercis e
ILIANA UNDERWOOD 09/21 [facility] EX[facility] CLASS [id number] Diagnos is: ICD-10- CM Z72.3 Lack of physica l exercis e
Cecily ONEILL SHANICE 09/22 [facility] EX[facility] CLASS [id number] [id number] Diagnos is: ICD-10- CM Z72.3 Lack of physica l exercis e
CRISTAL LAZCANO LLCourtney M 09/25 [facility] EX[facility] CLASS [id number] Diagnos is: ICD-10- CM Z72.3 Lack of physica l exercis e
CRISTAL LAZCANO LLY M 10/02 [facility] [place] Outpatient Encounter [id number] 10/03 [facility] [place] [place] [facility] Outpatient Encounter [id number] REJIGuzman JON Ghassan 10/03 [facility] [place] [facility] [place] GROUP BEHAVE COUNS 2-10 [id number] [id number] Diagnos is: ICD-10- CM E66.09 Other obesity due to excess calorie s
EVAN KRAMER P 10/05 [place] [facility] EXERCISE CLASS [id number] Diagnos is: ICD-10- CM Z72.3 Lack of physica l exercis e
CRISTAL LAZCANO M 10/06 [facility] [place] CLASS [id number] [id number] Diagnos is: ICD-10- CM E66.3 Overwei ght<br/ > GORDON PATHAK 10/12 [place] [facility] EXERCISE CLASS [id number] [id number] Diagnos is: ICD-10- CM Z72.3 Lack of physica l exercis e
CRISTAL LAZCANO M 10/16 [facility] [place] [facility] EX[facility] CLASS [id number] [id number] Diagnos is: ICD-10- CM Z72.3 Lack of physica l exercis e
Cecily ONEILL 10/18 [facility] [place] [facility] [place] WEIGHT MGMT CLASS [id number] Diagnos is: ICD-10- CM Z68.29 Body mass index [BMI] 29.0-29 .9, adult<b r/> GORDON PATHAK 10/19 [place] [facility] EXERCISE CLASS [id number] [id number] Diagnos is: ICD-10- CM Z72.3 Lack of physica l exercis e
LARISA COATES 10/20 [facility] EX[facility] CLASS [id number] [id number] Diagnos is: ICD-10- CM Z72.3 Lack of physica l exercis e
LARISA COATES 10/23 [facility] [place] [place] NUTRITION CLASS [id number] Diagnos is: ICD-10- CM Z71.3 Dietary pre parole counseling aide ing and surveil nancy<b r/> RAKESH GRACIA 10/24 [facility] [place] [facility] [place] [facility] UNLISTED PHYSCL MED/[place] PX [id number] [id number] Diagnos is: ICD-10- CM Z72.3 Lack of physica l exercis e
LARISA COATES 10/24 [facility] [place] [facility] [place] EX[facility] CLASS [id number] [id number] Diagnos is: ICD-10- CM Z72.3 Lack of physica l exercis e
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
LARISA COATES 10/27 [facility] [place] [facility] [place] [facility] EXERCISE CLASS [id number] [id number] Diagnos is: ICD-10- CM Z72.3 Lack of physica l exercis e
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
MAICecily SHANICE 11/01 [facility] [place] [facility] [place] EXERCISE CLASS [id number] Diagnos is: ICD-10- CM Z72.3 Lack of physica l exercis e
ILIANA UNDERWOOD 11/03 [facility] [place] [facility] [place] EXERCISE CLASS [id number] [id number] Diagnos is: ICD-10- CM Z72.3 Lack of physica l exercis e
CRISTAL LAZCANO 11/06 [facility] [place] [facility] [place] NUTRITION CLASS [id number] [id number] Diagnos is: ICD-10- CM Z71.3 Dietary pre parole counseling aide ing and surveil nancy<b r/> RAKESH GRACIA 11/07 [facility] [place] [facility] [place] [facility] BEHAVE COUNS 2-10 [id number] [id number] Diagnos is: ICD-10- CM E66.09 Other obesity due to excess calorie s
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
Cecily ONEILLIN 11/15 [facility] [place] [facility] LD WEIGHT MGMT CLASS [id number] [id number] Diagnos is: ICD-10- CM Z68.29 Body mass index [BMI] 29.0-29 .9, adult<b r/> GORDON PATHAK 11/16 [facility] [place] [facility] EXERCISE CLASS [id number] [id number] Diagnos is: ICD-10- CM Z72.3 Lack of physica l exercis e
LARISA COATES 11/17 [facility] [place] [place] [facility] [place] EXERCISE CLASS [id number] [id number] Diagnos is: ICD-10- CM Z72.3 Lack of physica l exercis e
CRISTAL LAZCANO 11/20 [facility] [place] [facility] [place] [facility] EXERCISE CLASS [id number] [id number] Diagnos is: ICD-10- CM Z72.3 Lack of physica l exercis e
Cecily ONEILL 11/22 [facility] [place] [facility] GROUP BEHAVE COUNS 2-10 [id number] [id number] Diagnos is: ICD-10- CM E66.3 Overwei ght<br/ > EVAN KRAMER 11/23 [facility] [place] [facility] [place] [facility] EXERCISE CLASS [id number] [id number] Diagnos is: ICD-10- CM Z72.3 Lack of physica l exercis e
ILIANA UNDERWOOD 11/23 [facility] NUTRITION CLASS [id number] Diagnos is: ICD-10- CM Z71.3 Dietary pre parole counseling aide ing and surveil nancy<b r/> RAKESH GRACIA 11/28 [facility] EXERCISE CLASS [id number] [id number] Diagnos is: ICD-10- CM Z72.3 Lack of physica l exercis e
CRISTAL LAZCANO 11/29 [facility] En[facility] [id number] 11/29 [facility] [place] WEIGHT MGMT CLASS [id number] [id number] Diagnos is: ICD-10- CM Z68.29 Body mass index [BMI] 29.0-29 .9, adult<b r/> GORDON PATHAK 11/30 [place] BEHAVE COUNS 2-10 [id number] [id number] Diagnos is: ICD-10- CM E66.3 Overwei ght<br/ > EVAN KRAMER 12/07 [place] [facility] EXERCISE CLASS [id number] [id number] Diagnos is: ICD-10- CM Z72.3 Lack of physica l exercis e
Cecily ONEILL 12/13 [facility] [place] WEIGHT MGMT CLASS [id number] [id number] Diagnos is: ICD-10- CM Z68.29 Body mass index [BMI] 29.0-29 .9, adult<b r/> GORDON PATHAK 12/14 [place] [facility] EXERCISE CLASS [id number] [id number] Diagnos is: ICD-10- CM Z72.3 Lack of physica l exercis e
CRISTAL LAZCANO M 12/15 [facility] [place] [facility] EXERCISE CLASS [id number] [id number] Diagnos is: ICD-10- CM Z72.3 Lack of physica l exercis e
CRISTAL LAZCANO M 12/18 [facility] EXERCISE CLASS [id number] [id number] Diagnos is: ICD-10- CM Z72.3 Lack of physica l exercis e
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
CRISTAL LAZCANO M 12/25 [facility] [place] [facility] [place] [facility] Outpatient Encounter [id number] 12/28 [facility] [place] [place] [facility] [place] WEIGHT MGMT CLASS [id number] [id number] Diagnos is: ICD-10- CM Z68.29 Body mass index [BMI] 29.0-29 .9, adult<b r/> GORDON PATHAK 01/04 [place] [facility]-10 [id number] [id number] Diagnos is: ICD-10- CM E66.3 Overwei ght<br/ > EVAN KRAMER 01/11 [place] [facility] EXERCISE CLASS [id number] [id number] Diagnos is: ICD-10- CM Z72.3 Lack of physica l exercis e
CRISTAL LAZCANO LLY M 01/12 [facility] EXERCISE CLASS [id number] [id number] Diagnos is: ICD-10- CM Z72.3 Lack of physica l exercis e
CRISTAL LAZCANO LLY M 01/15 [facility] EXERCISE CLASS [id number] [id number] Diagnos is: ICD-10- CM Z72.3 Lack of physica l exercis e
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
ILIANA UNDERWOOD 01/18 [facility] En[facility] [id number] 01/18 [facility] EXERCISE CLASS [id number] [id number] Diagnos is: ICD-10- CM Z72.3 Lack of physica l exercis e
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
CRISTAL LAZCANO 01/26 [facility] [place] [facility] [place] [facility] OFFICE O/P EST MOD 30-39 MIN [id number] [id number] Diagnos is: ICD-10- CM M17.9 Osteoar thritis of knee, unspeci fied
Guzman MENDOZA 01/26 [facility] [place] [facility] [place] [facility] EXERCISE CLASS [id number] [id number] Diagnos is: ICD-10- CM Z72.3 Lack of physica l exercis e
CRISTAL LAZCANO M 01/29 [facility] [place] [place] [facility] [place] [facility] PT EDUCATION NOC GROUP [id number] [id number] Diagnos is: ICD-10- CM Z71.3 Dietary pre parole counseling aide ing and surveil nancy<b r/> RAKESH GRACIA 01/30 [facility] [place] GROUP BEHAVE COUNS 2-10 [id number] [id number] Diagnos is: ICD-10- CM E66.09 Other obesity due to excess calorie s
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
CRISTAL LAZCANO M 02/05 [facility] [place] [place] [facility] [place] [facility] EXERCISE CLASS [id number] [id number] Diagnos is: ICD-10- CM Z72.3 Lack of physica l exercis e
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
CRISTAL LAZCANO M 02/09 [facility] [place] [place] [facility] [place] [facility] EXERCISE CLASS [id number] [id number] Diagnos is: ICD-10- CM Z72.3 Lack of physica l exercis e
CRISTAL LAZCANO M 02/12 [facility] [place] [facility] [place] [facility] SELF-MGMT EDUC/TRAIN 2-4 [place] [id number] [id number] Diagnos is: ICD-10- CM Z71.3 Dietary pre parole counseling aide ing and surveil nancy<b r/> RAKESH GRACIA 02/13 [facility] EXERCISE CLASS [id number] [id number] Diagnos is: ICD-10- CM Z72.3 Lack of physica l exercis e
Cecily ONEILL SHANICE 02/14 [facility] EXERCISE CLASS [id number] [id number] Diagnos is: ICD-10- CM Z72.3 Lack of physica l exercis e
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
LARISA COATES 02/23 [facility] EXERCISE CLASS [id number] [id number] Diagnos is: ICD-10- CM Z72.3 Lack of physica l exercis e
CRISTAL LAZCANO M 02/26 [facility] EXERCISE CLASS [id number] [id number] Diagnos is: ICD-10- CM Z72.3 Lack of physica l exercis e
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
SYDNEYCRISTAL LEAL M 03/05 [facility] [place] [facility] En[facility] [id number] 03/05 [facility] SELF-MGMT EDUC & TRAIN 1 [place] [id number] [id number] Diagnos is: ICD-10- CM G47.33 Obstruc tive sleep apnea (adult) (pediat amparo)
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
ILIANA UNDERWOOD 03/07 [facility] [place] [facility] LD GROUP BEHAVE COUNS 2-10 [id number] [id number] Diagnos is: ICD-10- CM E66.09 Other obesity due to excess calorie s
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
Cecily ONEILL 03/14 [facility] [place] [facility] GROUP BEHAVE COUNS 2-10 [id number] [id number] Diagnos is: ICD-10- CM E66.3 Overwei ght<br/ > EVAN KRAMER CHABOBBY P 03/15 [place] [facility] [place] [facility] SLEEP STUDY UNATT&RESP EFFT [id number] [id number] Diagnos is: ICD-10- CM G47.33 Obstruc tive sleep apnea (adult) (pediat amparo)
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
Cecily ONEILL 03/28 [facility] [place] [facility] SLEEP STUDY UNATT&RESP EFFT 16480-3.68 [id number] Diagnos is: ICD-10- CM G47.33 Obstruc tive sleep apnea (adult) (pediat amparo)
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
Cecily ONEILL 04/04 [facility] [place] [facility] LD GROUP BEHAVE COUNS 2-10 48067-2.63 [id number] Diagnos is: ICD-10- CM E66.09 Other obesity due to excess calorie s
EVAN KRAMER P 04/05 [facility] LD GROUP BEHAVE COUNS 2-10 73458-4.63 [id number] Diagnos is: ICD-10- CM E66.3 Overwei ght<br/ > EVAN KRAMER P 04/05 [place] [facility] [place] [facility] PT EDUCATION NOC GROUP 73461-0.63 [id number] Diagnos is: ICD-10- CM Z71.3 Dietary pre parole counseling aide ing and surveil nancy<b r/> RAKESH GRACIA 04/10 [facility] [place] [facility] WEIGHT MGMT CLASS 97858-4.63 [id number] Diagnos is: ICD-10- CM Z68.29 Body mass index [BMI] 29.0-29 .9, adult<b r/> GORDON PATHAK 04/12 [facility] [place] [facility] EXERCISE CLASS 66140-2.63 [id number] Diagnos is: ICD-10- CM 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
Cecily ONEILL SHANICE 05/09 [facility] LD GROUP BEHAVE COUNS 2-10 02656-7.63 [id number] Diagnos is: ICD-10- CM E66.09 Other obesity due to excess calorie s
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
CRISTAL LAZCANO M 05/21 [facility] LD GROUP BEHAVE COUNS 2-10 39901-6.63 [id number].[id number] Diagnos is: ICD-10- CM E66.09 Other obesity due to excess calorie s
[facility]AN [facility]RAMER [facility] PT EDUCATION NOC GROUP 55385-3.63 [id number] Diagnos is: ICD-10- CM Z71.3 Dietary pre parole counseling aide ing and surveil nancy<b r/> RAKESH GRACIA LIE CHENTE 05/28 [facility] GROUP BEHAVE COUNS 2-10 49117-7.63 [id number].[id number] Diagnos is: ICD-10- CM E66.09 Other obesity due to excess calorie s
EVAN KRAMER CHABOBBY P 05/30 [facility] LD GROUP BEHAVE COUNS 2-10 76944-3.63 [id number] Diagnos is: ICD-10- CM E66.09 Other obesity due to excess calorie s
EVAN KRAMER CHABOBBY P 06/06 [facility] PT EDUCATION NOC GROUP 78354-0.63 [id number] Diagnos is: ICD-10- CM Z71.3 Dietary pre parole counseling aide ing and surveil nancy<b r/> RAKESH GRACIA LIE CHENTE 06/11 [facility] LD WEIGHT MGMT CLASS 86096-7.63 [id number].[id number] Diagnos is: ICD-10- CM E66.3 Overwei ght<br/ > GORDON PATHAK 06/13 [facility] LD WEIGHT MGMT CLASS 98908-1.63 [id number] Diagnos is: ICD-10- CM Z68.29 Body mass index [BMI] 29.0-29 .9, adult<b r/> GORDON PATHAK 06/20 [facility] PT EDUCATION NOC GROUP 77430-2.63 [id number] Diagnos is: ICD-10- CM Z71.3 Dietary pre parole counseling aide ing and surveil nancy<b r/> RAKESH GRACIA 06/25 [facility] LD WEIGHT MGMT CLASS 29152-2.63 [id number] Diagnos is: ICD-10- CM Z68.29 Body mass index [BMI] 29.0-29 .9, adult<b r/> GORDON PATHAK A 06/27 [facility] LD GROUP BEHAVE COUNS 2-10 17731-5.63 1BY.[id number] Diagnos is: ICD-10- CM E66.3 Overwei ght<br/ > EVAN KRAMER P 07/04 [facility] WEIGHT MGMT CLASS 35923-6.63 [id number].[id number] Diagnos is: ICD-10- CM Z68.29 Body mass index [BMI] 29.0-29 .9, adult<b r/> GORDON PATHAK 07/18 [place] [facility] OFFICE O/P EST MOD 30 MIN 21523-3.63 [id number] Diagnos is: ICD-10- CM K21.9 Gastro- esophag eal reflux disease without esophag itis
Guzman MENDOZA 07/22 [facility] Outpatient Encounter [id number] [id number] 07/23 [facility] GROUP BEHAVE COUNS 2-10 92158-5.63 [id number].[id number] Diagnos is: ICD-10- CM E66.3 Overwei ght<br/ > EVAN KRAMER P 07/25 [place] [facility] PT EDUCATION NOC GROUP 79714-6.63 [id number] Diagnos is: ICD-10- CM Z71.3 Dietary pre parole counseling aide ing and surveil nancy<b r/> RAKESH GRACIA 07/30 [facility] LD GROUP BEHAVE COUNS 2-10 74293-9.63 1BY.[id number] Diagnos is: ICD-10- CM E66.3 Overwei ght<br/ > EVAN KRAMER P 08/01 [facility] BEHAVE COUNS 2-10 76701-6.63 [id number] Diagnos is: ICD-10- CM E66.3 Overwei ght<br/ > EVAN KRAMER JOSH P 08/08 [facility] EXERCISE CLASS 83493-3.63 [id number] Diagnos is: ICD-10- CM 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
Cecily ONEILL 09/04 [facility] [place] WEIGHT MGMT CLASS 52122-7.63 [id number].[id number] Diagnos is: ICD-10- CM E66.09 Other obesity due to excess calorie s
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
CRISTAL LAZCANO M 09/06 [facility] BE[facility]-10 75134-8.63 1BY.[id number] Diagnos is: ICD-10- CM E66.09 Other obesity due to excess calorie s
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
CRISTAL LAZCANO M 09/23 [facility] [place] [address]-9.63 [id number] Diagnos is: ICD-10- CM L71.8 Other rosacea
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
CRISTAL LAZCANO M 09/30 [facility] [place] LD GROUP BEHAVE COUNS 2-10 06411-5.63 [id number] Diagnos is: ICD-10- CM E66.09 Other obesity due to excess calorie s
EVAN KRAMER P 10/03 [facility] WEIGHT MGMT CLASS 09193-8.63 [id number] Diagnos is: ICD-10- CM Z68.29 Body mass index [BMI] 29.0-29 .9, adult<b r/> GORDON PATHAK A 10/10 [facility] EXERCISE CLASS 18842-6.63 [id number] Diagnos is: ICD-10- CM Z72.3 Lack of physica l exercis e
CRISTAL LAZCANO LLY M 10/14 [facility] EXERCISE CLASS 42872-3.63 1. 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
Cecily ONEILL 10/16 [facility] GROUP BEHAVE COUNS 2-10 45499-6.63 1BY.[id number] Diagnos is: ICD-10- CM E66.09 Other obesity due to excess calorie s
EVAN KRAMER P 10/17 [facility] EXERCISE CLASS 22851-8.63 [id number] Diagnos is: ICD-10- CM Z72.3 Lack of physica l exercis e
CRISTAL LAZCANO LLY M 10/18 [facility] EXERCISE CLASS 32662-2.63 1. 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
NENOKE LLY M 10/21 [facility] Outpatient Encounter [id number] [id number] Guzman MENDOZA 10/22 [facility] POS AIRWAY PRESSURE FILTER 65401-7.63 1. Diagnos is: ICD-10- CM G47.30 Sleep apnea, unspeci fied
ST KATHARINA ARVIZU E P 10/22 [facility] EXERCISE CLASS 40227-2.63 1. 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
Cecily ONEILL 10/23 [facility] [place] [facility]HV IVNTJ GRP EA ADDL 01516-4.63 [id number] Diagnos is: ICD-10- CM Z68.30 Body mass index [BMI] 30.0-30 .9, adult<b r/> GORDON PATHAK 10/24 [place] [facility] UNLISTED PHYSCL MED/[place] [address]-0.63 [id number] Diagnos is: ICD-10- CM Z72.3 Lack of physica l exercis e
LARISA COATES 10/25 [facility] EXERCISE CLASS 79374-0.63 1. 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
CRISTAL LAZCANO 10/25 [facility] Outpatient Encounter [id number] [id number] 10/25 [facility] Outpatient Encounter 03937-7.63 [id number] 10/25 [facility] EXERCISE CLASS 76646-1.63 [id number] Diagnos is: ICD-10- CM Z72.3 Lack of physica l exercis e
CRISTAL LAZCANO M 10/28 [facility] COLLJ & INTERPJ DATA EA 30 D 82757-4.63 [id number] Diagnos is: ICD-10- CM G47.30 Sleep apnea, unspeci fied
ST AMANT,KATHARINA E P 10/29 [facility] EXERCISE CLASS 47994-7.63 [id number] Diagnos is: ICD-10- CM Z72.3 Lack of physica l exercis e
Cecily OENILL 10/30 [facility] [place] [facility] BHV IVNTJ GRP EA ADDL [id number] [id number] Diagnos is: ICD-10- CM Z68.30 Body mass index [BMI] 30.0-30 .9, adult<b r/> GORDON PATHAK A 10/31 [place] [facility] EXERCISE CLASS 76821-8.63 [id number] Diagnos is: ICD-10- CM Z72.3 Lack of physica l exercis e
CRISTAL LAZCANO M 11/01 [facility] EXERCISE CLASS [id number] [id number] Diagnos is: ICD-10- CM Z72.3 Lack of physica l exercis e
CRISTAL LAZCANO M 11/04 [facility] EXERCISE CLASS [id number] [id number] Diagnos is: ICD-10- CM Z72.3 Lack of physica l exercis e
Cecily ONEILL SHANICE 11/06 [facility] LD GROUP BEHAVE COUNS 2-10 93068-6.63 [id number].[id number] Diagnos is: ICD-10- CM E66.09 Other obesity due to excess calorie s
EVAN KRAMER P 11/07 [facility] EXERCISE CLASS 62421-4.63 1. 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
Cecily ONEILL SHANICE 11/13 [facility] LD HLTH BHV IVNTJ GRP EA ADDL [id number] [id number] Diagnos is: ICD-10- CM Z68.30 Body mass index [BMI] 30.0-30 .9, adult<b r/> GORDON PATHAK 11/14 [facility] EXERCISE CLASS 58417-6.63 1. 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
Cecily ONEILL SHANICE 11/15 [facility] EXERCISE CLASS 88474-3.63 [id number] Diagnos is: ICD-10- CM Z72.3 Lack of physica l exercis e
CRISTAL LAZCANO 11/18 [facility] EXERCISE CLASS 90634-5.63 1. 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
Cecily ONEILL SHANICE 11/20 [facility] LD GROUP BEHAVE COUNS 2-10 29910-6.63 [id number] Diagnos is: ICD-10- CM E66.09 Other obesity due to excess calorie s
EVAN KRAMER P 11/21 [facility] EXERCISE CLASS 18224-8.63 1. 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
MAICecily SHANICE 11/27 [facility] HLTH BHV IVNTJ GRP EA ADDL 08877-8.63 [id number] Diagnos is: ICD-10- CM Z68.30 Body mass index [BMI] 30.0-30 .9, adult<b r/> GORDON PATHAK A 11/28 [facility] [place] EXERCISE CLASS 40066-8.63 1. 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
LARISA COATES 11/29 [facility] EXERCISE CLASS 00685-0.63 1. 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
CRISTAL LAZCANO M 12/02 [facility] COLLJ & INTERPJ DATA EA 30 D 80505-7.63 [id number] Diagnos is: ICD-10- CM G47.30 Sleep apnea, unspeci fied
ST AMANT,KATHARINA E P 12/02 [facility] EXERCISE CLASS 78730-4.63 1. 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
CRISTAL LAZCANO M 12/04 [facility] GROUP BEHAVE COUNS 2-10 45757-0.63 [id number].[id number] Diagnos is: ICD-10- CM E66.09 Other obesity due to excess calorie s
NIA,LA CHAEL P 12/05 [place] [facility] PT EDUCATION NOC GROUP 86584-4.63 [id number] Diagnos is: ICD-10- CM Z71.3 Dietary pre parole counseling aide ing and surveil nancy<b r/> RAKESH GRACIA LIE CHENTE 12/10 [facility] ADDL [id number] [id number] Diagnos is: ICD-10- CM Z73.3 Stress, not elsewhe re classif ied<br/ > CHALOJOSE ALBERTO CORCORAN RA 12/10 [facility] [place] [place] [facility] IV[facility]P EA ADDL [id number] [id number] Diagnos is: ICD-10- CM Z68.30 Body mass index [BMI] 30.0-30 .9, adult<b r/> GORDON PATHAK 12/12 [place] [facility] EXERCISE CLASS 47180-9.63 [id number] Diagnos is: ICD-10- CM Z72.3 Lack of physica l exercis e
CRISTAL LAZCANO M 12/16 [facility] [place] [place] [place] [facility] IVNTJ GRP EA ADDL [id number] [id number].[id number] Diagnos is: ICD-10- CM Z68.30 Body mass index [BMI] 30.0-30 .9, adult<b r/> GORDON PATHAK 12/19 [place] [facility] PT EDUCATION NOC GROUP 03040-7.63 [id number] Diagnos is: ICD-10- CM Z71.3 Dietary pre parole counseling aide ing and surveil nancy<b r/> RAKESH GRACIA CHENTE 12/24 [facility] [place] [place] [place] LD GROUP BEHAVE COUNS 2-10 05261-5.63 [id number].[id number] Diagnos is: ICD-10- CM E66.09 Other obesity due to excess calorie s
EVAN KRAMER CHAEL P 12/26 [place] [facility] ADDL 54480-2.63 [id number] Diagnos is: ICD-10- CM Z68.30 Body mass index [BMI] 30.0-30 .9, adult<b r/> GORDON PATHAK A 01/02 [facility] PT EDUCATION NOC GROUP 80098-1.63 1. Diagnos is: ICD-10- CM Z71.3 Dietary pre parole counseling aide ing and surveil nancy<b r/> RAKESH GRACIA 01/07 [place] [facility] [place] [facility] GROUP BEHAVE COUNS 2-10 97422-4.63 1BY. 38 Diagnos is: ICD-10- CM E66.09 Other obesity due to excess calorie s
EVAN KRAMER CHAEL P 01/[address] [facility] [address] [facility] IVNTJ GRP EA ADDL 64851-2.63 [id number].[id number] Diagnos is: ICD-10- CM Z68.30 Body mass index [BMI] 30.0-30 .9, adult<b r/> GORDON PATHAK A 01/16 [facility] [place] [facility] [place] [facility] OFFICE O/P EST MOD 30 MIN 03074-3.63 1. Diagnos is: ICD-10- CM G47.30 Sleep apnea, unspeci fied
Guzman MENDOZA 01/20 [facility] OFFICE O/P EST MOD 30 MIN 81970-0.68 [id number] Diagnos is: ICD-10- CM G47.33 Obstruc tive sleep apnea (adult) (pediat amparo)
ARELIS NUNO 01/21 [facility] [facility] Outpatient Encounter [id number] [id number] Diagnos is: ICD-10- CM G47.33 Obstruc tive sleep apnea (adult) (pediat amparo)
NUNO,ARELIS 01/21 [facility] [place] [facility] [facility] [place] LD GROUP BEHAVE COUNS 2-10 35901-7.63 [id number].[id number] Diagnos is: ICD-10- CM E66.811 Obesity , class 1
NIA,MI CHAEL P 01/23 [place] [facility] BEHAVE COUNS 2-10 28825-9.63 [id number] Diagnos is: ICD-10- CM E66.811 Obesity , class 1
NIA,MI CHAEL P 01/30 [place] [facility] IV[facility] GRP EA ADDL 22397-2.63 [id number].[id number] Diagnos is: ICD-10- CM Z68.30 Body mass index [BMI] 30.0-30 .9, adult<b r/> GORDON PATHAK A 02/06 [place] [facility] LD HLTH BHV IVNTJ GRP EA ADDL [id number] [id number] Diagnos is: ICD-10- CM Z68.30 Body mass index [BMI] 30.0-30 .9, adult<b r/> GORDON PATHAK A 02/13 [place] [facility] OFFICE O/P EST MOD 30 MIN 20071-9.68 [id number] Diagnos is: ICD-10- CM G47.33 Obstruc tive sleep apnea (adult) (pediat amparo)
NUNO,ARELIS 02/25 [facility] Outpatient Encounter [id number] [id number] Diagnos is: ICD-10- CM G47.33 Obstruc tive sleep apnea (adult) (pediat amparo)
NUNO,ARELIS 02/25 [facility] LD HLTH BHV IVNTJ GRP EA ADDL 22450-3.63 [id number] Diagnos is: ICD-10- CM Z68.30 Body mass index [BMI] 30.0-30 .9, adult<b r/> GORDON PATHAK A 02/27 [facility] [place] [facility] GROUP BEHAVE COUNS 2-10 62066-7.63 [id number] Diagnos is: ICD-10- CM E66.811 Obesity , class 1
EVAN KRAMER P 03/06 [facility] [place] [facility] BEHAVE COUNS 2-10 04830-8.63 [id number] Diagnos is: ICD-10- CM E66.811 Obesity , class 1
EVAN KRAMER P 03/13 [facility] Social History Combined list of available smoking, tobacco, and other social history from [facility] and [facility] facilities. Social History Type Response Date Comment Sourc e Tobacco smoking status WIIS [facility]ACCO FORMER USER 01/21/2024 [facility] History of tobacco use PA-TOBACCO QUIT 15 YRS OR MORE 01/21/2024 [facility] [...] [facility] Plan of Care List of future care activities from [facility] of Veterans Affairs facilities. Additional future care activities may be listed in the Assessment and Plan section. Date/Time Care Activity Care Activity Detail Facili ty 07/21/2024 [facility]BULAT[facility] - MEDICINE AMBULAT[facility] - [facility]ICI [facility]
== END 2024-03-31 10:52 | disposition home or self-care (01) ==
PROVIDERS: PCP Internal Medicine; Visit Provider Physician Assistant
DX: M17.12 Unilateral primary osteoarthritis, left knee (principal)
CPT/HCPCS: 99213

== ENCOUNTER 2024-04-22 08:43 | Outpatient (AMB) | payer MEDICARE, OTHER, SELFPAY ==
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
[2024-04-22 09:03] VITALS: BMI 31.0
--- OUTSIDE RECORDS SUMMARY | 2024-04-22 09:03 | XMS_ITS | Encounter Summary ---
Author Name [facility] [place] [facility] [place] [facility] [place] Address [address] [place] [id number] Care Team Providers Care Support Services Tech Name Role Phone LEN MENDOZA Primary Care [...] PART B Sep 23, 2014 PART B [id number] HARMONY MCCALL JR PATIENT MEDICARE (WNR) MEDICARE (M) PART A July 25, 2007 PART A [id number] [phone] HARMONY MCCALL JR PATIENT MEDICARE (WNR) MEDICARE (M) PART B July 25, 2007 PART B [id number] [phone] HARMONY MCCALL JR PATIENT MEDICARE (WNR) MEDICARE (M) PART A July 25, 2007 PART A [id number] [phone] HARMONY MCCALL JR PATIENT [facility] MEDICAL EXPENSE (OPT/PROF ) [facility] * Jan 24, 2015 [id number] CAROLE MCCALL SPOUSE Selected Encounter This section includes the information on record at [place] for the Encounter. Date/Time Encounter Type Encounter Description Reason Provider Source Apr 03, 2024 11:00 AM HLTH [facility] IVNTJ GRP EA ADDL WEIGHT MGMT & MOVE! PROG - GRP ICD-10-CM Z68.30 Body mass index [BMI] 30.0-30.9, adult GORDON PATHAK Erin Encounter Template Text not used by [place] Assessments - Encounter Diagnoses This section includes the primary and secondary diagnoses documented for the Encounter. Date/Time Primary/Secondary Diagnosis Diagnosis Name Provider Source Apr 04, 2024 02:26 PM PRIMARY Body mass index [BMI] 30.0-30.9, adult GORDON PATHAK Apr 04, 2024 02:26 PM SECONDARY Obesity, class 1 GORDON PATHAK [...] Type Appointme nt Facility Name Apr 10, 2024 11:00 AM AMBULATORY - NONE [facility] Jul 21, 2024 10:00 AM [place] [facility] Vital Signs: All taken on the encounter date This section contains inpatient and outpatient Vital Signs collected on the date of the Encounter. Date/Time Temperature Pulse Blood Pressure Respiratory Rate SP02 Pain Height Weight Body Mass Index Source Apr 03, 2024 11:00 AM 213.4 33 [place] Encounter Notes: All associated encounter notes This section contains the clinical notes associated to the Encounter. Date/Time Encounter Note(s) Provider Source Apr 04, 2024 02:19 PM MOVE NOTE: LOCAL TITLE: WEIGHT MANAGEMENT/MOVE! OUTPATIENT GROUP NOTE STANDARD TITLE: MOVE NOTE DATE OF NOTE: APR 04, 2024@14:19 ENTRY DATE: APR 04, 2024@14:19:08 AUTHOR: GORDON PATHAK EXP COSIGNER: URGENCY: STATUS: COMPLETED participated in MOVE! Group Counseling via [facility] on April 03, 2024. The was provided with information on [facility] and has given verbal consent to use group [facility] services for their healthcare. The copy of the Group Telehealth Agreement has been mailed to the [place]. The Veterans location/emergency contact number were confirmed. The Emergency Call Relay Center (E911) was available. The visit was locked for security and privacy. [place] identified with 2 identifiers: [ ] Full Name [ ] Address Veterans attended the [facility] MOVE! group session on this date. MOVE! is a program designed to provide education about weight management skills to overweight and obese Veterans. Group members attended their first session in 2024. Facilitators welcomed two new group members to the Support Group who recently graduated from the 16 week MOVE initial program. Group members began today's discussion talking about goals for the new . The group seemed to avoid setting specific goals by talking about financial matters and political news. When redirected by the facilitators they stated that they wanted to lose weight (with some mentioning a particular weight that they are targeting). Facilitators helped Veterans to understand the need to set goals that involve specific, measurable actions such as I hope to reduce my night time snacking by 50% . After a somewhat lengthy discussion group members talked about walking more, getting a physical therapy consult to help manage their chronic pain, eliminating particular Red-Light foods, etc. The next [facility] MOVE! group meeting will be held on March @ 11:00am. [place] began the new with a reported weight of 213.4 pounds. Dx: Obesity Class 1 BMI 30.0-30.9 The session lasted for 1 hour in duration. /johanny/ GORDON PATHAK, Ph.D. CLINICAL PSYCHOLOGIST Signed: 04/04/2024 14:32 Receipt Acknowledged By: 04/15/2024 09:38 /johanny/ SANTIAGO KRAMER STAFF DIETITIAN GORDON PATHAK
--- OUTSIDE RECORDS SUMMARY | 2024-04-22 09:04 | XMS_ITS | Encounter Summary ---
Author Name [facility] [facility] Address [address] [place] [address] Care Team Providers Care Philosophy Professor Name Role Phone LEN MENDOZA Primary Care [...] PART B Sep 23, 2014 PART B [id number] HARMONY MCCALL JR PATIENT MEDICARE (WNR) MEDICARE (M) PART A July 25, 2007 PART A [id number] HARMONY MCCALL JR PATIENT MEDICARE (WNR) MEDICARE (M) PART B July 25, 2007 PART B [id number] HARMONY MCCALL JR PATIENT MEDICARE (WNR) MEDICARE (M) PART A July 25, 2007 PART A [id number] [phone] HARMONY MCCALL JR PATIENT [facility] MEDICAL EXPENSE (OPT/PROF ) [facility] * Jan 24, 2015 [id number] CAROLE MCCALL SPOUSE Selected Encounter This section includes the information on record at [place] for the Encounter. Date/Time Encounter Type Encounter Description Reason Provider Source Apr 10, 2024 11:00 AM HLTH [facility] IVNTJ GRP EA ADDL WEIGHT MGMT & MOVE! PROG - GRP ICD-10-CM Z68.30 Body mass index [BMI] 30.0-30.9, adult GORDON PATHAK Erin Encounter Template Text not used by [place] Assessments - Encounter Diagnoses This section includes the primary and secondary diagnoses documented for the Encounter. Date/Time Primary/Secondary Diagnosis Diagnosis Name Provider Source Apr 10, 2024 06:06 PM PRIMARY Body mass index [BMI] 30.0-30.9, adult GORDON PATHAK Apr 10, 2024 06:06 PM SECONDARY Obesity, class 1 GORDON PATHAK [...] 21, 2024 10:00 AM AMBULATORY - MEDICINE [facility] Oct 07, 2024 10:00 AM AMBULATORY MEDICINE [facility] Vital Signs: All taken on the encounter date This section contains inpatient and outpatient Vital Signs collected on the date of the Encounter. Date/Time Temperature Pulse Blood Pressure Respiratory Rate SP02 Pain Height Weight Body Mass Index Source Apr 10, 2024 11:23 AM 212 32 [place] Encounter Notes: All associated encounter notes This section contains the clinical notes associated to the Encounter. Date/Time Encounter Note(s) Provider Source Apr 10, 2024 06:00 PM MOVE NOTE: LOCAL TITLE: WEIGHT MANAGEMENT/MOVE! OUTPATIENT GROUP NOTE STANDARD TITLE: MOVE NOTE DATE OF NOTE: APR 10, 2024@18:00 ENTRY DATE: APR 10, 2024@18:00:18 AUTHOR: GORDON PATHAK EXP COSIGNER: URGENCY: STATUS: COMPLETED participated in MOVE! Group Counseling via [facility] on April 10, 2024. The was provided with information on [facility] and has given verbal consent to use group [facility] services for their healthcare. The copy of the Group Telehealth Agreement has been mailed to the . The Veterans location/emergency contact number were confirmed. The Emergency Call Relay Center (E911) was available. The visit was locked for security and privacy. [place] identified with 2 identifiers: [ ] Full Name [ ] Address Veterans attended the [facility] MOVE! group session on this date. MOVE! is a program designed to provide education about weight management skills to overweight and obese Veterans. Group members combined to lose 0.4 pounds since their last attended group. Group members began today's discussion talking about physical ailments and pain that has resulted in an inability to exercise routinely and in the manner that Veterans wish. Facilitators discussed the benefits of movement and physical therapy to help overcome certain painful conditions. Additionally, Veterans talked about their need to compensate for their more sedentary days with extra effort in changing their food habits. Some Veterans talked about their challenges in maintaining healthy eating habits while traveling or on vacation as some of them have plans to visit warmer climates in the coming weeks. Overall, the mood of the group was more upbeat and hopeful for the new year with a focus on becoming reinvigorated toward losing weight and improving overall health. Veterans shared their strategies for the upcoming week. The next [facility] MOVE! group meeting will be held on March @ 11:00am. 's reported weight was 212.0 lbs. and lost 1.4 pounds since last group attended. Dx: Obesity Class 1 BMI 30.0-30.9 The session lasted for 1 hour in duration. /johanny/ GORDON PATHAK, Ph.D. CLINICAL PSYCHOLOGIST Signed: 04/10/2024 18:12 Receipt Acknowledged By: 04/15/2024 10:10 /johanny/ SANTIAGO KRAMER STAFF DIETITIAN GORDON PATHAK
--- OUTSIDE RECORDS SUMMARY | 2024-04-22 09:04 | XMS_ITS | Continuity of Care Document ---
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 Name Role Phone [facility] Unavailable Unavailable Problems Combined list of problems [...] mass index [BMI] 30.0-30.9, adult Active Diagnosis [facility] Diagnosis: ICD-10-CM E66.811 Obesity, class 1 Active Diagnosis [place] Diagnosis: ICD-10-CM G47.33 Obstructive sleep apnea (adult) (pediatric) Active Diagnosis [facility] Diagnosis: ICD-10-CM G47.30 Sleep apnea, unspecified Active Diagnosis [facility] Diagnosis: ICD-10-CM E66.09 Other obesity due to excess calories Active Diagnosis [facility] Diagnosis: ICD-10-CM Z71.3 Dietary counseling and surveillance Active Diagnosis [facility] Diagnosis: ICD-10-CM Z72.3 Lack of physical exercise Active Diagnosis [facility] Diagnosis: ICD-10-CM Z73.3 Stress, not elsewhere classified Active Diagnosis [facility] Diagnosis: ICD-10-CM Z68.29 Body mass index [BMI] 29.0-29.9, adult Active Diagnosis [facility] Diagnosis: ICD-10-CM Z46.0 Encounter for [...] TABLET BY MOUTH DAILY ORAL ACTIVE BRITT,[facility] BROMOCRIPTI NE MESYLATE 0.8MG TAB TAKE THREE TABLETS BY MOUTH ONCE DAILY ORAL ACTIVE ,2016 [facility] CALCIUM 200MG (CA CITRATE-950 MG) TAB TAKE THREE TABLETS BY MOUTH DAILY ORAL ACTIVE ,2016 [facility] CARBOXYMETH YLCELLULOSE NA 0.5% SOLN,OPH INSTILL 1 DROP INTO EACH EYE FOUR TIMES A DAY FOR DRY EYE OPHTHA LMIC ACTIVE 09/25/2024 [id number] Cecily GEE ICHELE 2023 45 [facility] CETIRIZINE HCL 10MG TAB TAKE ONE TABLET BY MOUTH DAILY ORAL ACTIVE BRITT, [facility] CHOLECALCIF FORTINO 25MCG (1,000UNIT) TAB TAKE ONE TABLET BY MOUTH DAILY ORAL ACTIVE BRITT, [facility] LEVOTHYROXI NE NA 125MCG TAB (SYNTHROID) TAKE ONE TABLET BY MOUTH EVERY MORNING 30 MINUTES BEFORE BREAKFAS T ORAL ACTIVE LEN [facility] 2023 [facility] LISINOPRIL 5MG TAB TAKE ONE TABLET BY MOUTH ONCE DAILY TO CONTROL BLOOD PRESSURE ORAL 01/27/2024 [id number] LEN MENDOZA 2022 90 [facility] [place] POTASSIUM 100MG TAB TAKE ONE TABLET BY MOUTH ONCE DAILY ORAL ACTIVE LEN MENDOZA 2017 [facility] METOPROLOL SUCCINATE 50MG TAB,SA TAKE ONE TABLET BY MOUTH ONCE DAILY ORAL ACTIVE LEN MENDOZA 2022 [facility] OTHER CAP/TAB TAKE 5 MG BY MOUTH DAILY ORAL ACTIVE BALWINDER, [facility] 2016 [facility] TAMSULOSIN HCL 0.4MG CAP TAKE 1 CAPSULE BY MOUTH ONCE DAILY ORAL ACTIVE LEN MENDOZA 2019 [facility] IELD Immunizations Combined list of available immunizations from the Department of Defense and Veterans Affairs facilities. Immunization Series Date Given Administered By Site Reaction Lot Number CVX Code Drug Fitness Consultant Status Comments Source INFLUENZA, HIGH-DOSE, TRIVALENT, PF 2023 SHE REID SSA H RIGHT DELTO ID [id number] 135 complet ed [facility] INFLUENZA, HIGH-DOSE, QUADRIVALENT 2022 BIENVENIDO BANKS LEFT DELTO ID [id number] 197 complet ed [facility] COVID-19 (MODERNA), MRNA, LNP-S, PF, 100 MCG/0.5ML DOSE OR 50 MCG/0.25ML DOSE 3 2021 207 complet ed MOD; [id number]; 2 [facility] COVID-19 (MODERNA), MRNA, LNP-S, PF, 100 MCG OR 50 MCG DOSE 3 2020 207 complet ed MOD; [id number]; 2 [facility] INFLUENZA VACCINE, QUADRIVALENT, ADJUVANTED 2020 205 complet ed [facility] COVID-19 (MODERNA), MRNA, LNP-S, PF, 100 MCG/0.5 ML DOSE 2 2020 207 complet ed MOD; [id number]; 1 [facility] COVID-19 (MODERNA), MRNA, LNP-S, PF, 100 MCG/0.5 ML DOSE 1 2020 207 complet ed MOD; [id number]; 1 [facility] [...] Left Deltoid [facility] [place] PNEUMOCOCCAL CONJUGATE PCV 13 2017 [...] Jul 12, 2023 10:12 AM Reporting Lab: [facility] [address] Performing Lab: [facility] [place] [facility] [address] [address] [facility] [place] [facility] BASIC METABOLIC PANEL (non-fast ing) GLUCOSE [MASS/VOLUM E] IN SERUM OR PLASMA 95 mg/dL 65 - 100 07/18 Specimen Type: SERUM No comment entered. Ordering Provider: ORACIO MENDOZA Report Released Date/Time: Jul 12, 2023 10:12 AM Reporting Lab: [facility] [address] Performing Lab: [facility]PITALRATRI[facility]ENTERTRN [place] [address] [address] [facility] [place] [facility] BASIC METABOLIC PANEL (non-fast ing) SODIUM [MOLES/VOLU ME] IN SERUM OR PLASMA 142 mmol/L 135 - 145 07/18 Specimen Type: SERUM No comment entered. Ordering Provider: ORACIO MENDOZA Report Released Date/Time: Jul 12, 2023 10:12 AM Reporting Lab: [facility] [address] Performing Lab: [facility]PITALRATRI[facility]ENTERTRN [place] [facility] [address] [address] [facility]PITALRUSA [facility]OSPITALN [facility]AREUSE [facility] BASIC METABOLIC PANEL (non-fast ing) POTASSIUM [MOLES/VOLU ME] IN SERUM OR PLASMA 4.7 mmol/L 3.5 - 5.0 07/18 Specimen Type: SERUM No comment entered. Ordering Provider: ORACIO MENDOZA Report Released Date/Time: Jul 12, 2023 10:12 AM Reporting Lab: [facility]ITALRATRI[facility] CENTERTRN [facility]AREUSEOUR [facility] [address] [address] Performing Lab: [facility]OSPITALRUSA [facility] PROVIDENCE HOSPITALN [facility]USEOUR [facility] [address] [address] [facility]USE [facility] BASIC METABOLIC PANEL (non-fast ing) CHLORIDE [MOLES/VOLU ME] IN SERUM OR PLASMA 107 mmol/L 100 - 110 07/18 Specimen Type: SERUM No comment entered. Ordering Provider: ORACIO MENDOZA Report Released Date/Time: Jul 12, 2023 10:12 AM Reporting Lab: [facility]AREUSEOUR [facility] [address] [address] Performing Lab: [facility]USEOUR [facility] [address] [address] [facility] BASIC METABOLIC PANEL (non-fast ing) CARBON DIOXIDE, TOTAL [MOLES/VOLU ME] IN SERUM OR PLASMA 28 meq/L 20 - 30 07/18 Specimen Type: SERUM No comment entered. Ordering Provider: ORACIO MENDOZA Report Released Date/Time: Jul 12, 2023 10:12 AM Reporting Lab: [facility]PITALRATRI[facility] CENTERTRN [facility]AREUSEOUR [facility] [address] [address] Performing Lab: [facility]OSPITALRUSA [facility] PROVID[facility] HOSPITALN [facility]USEOUR [facility] [address] [address] [facility] BASIC METABOLIC PANEL (non-fast ing) CREATININE [MASS/VOLUM E] IN SERUM OR PLASMA 0.90 mg/dL 0.50 - 1.40 07/18 Specimen Type: SERUM No comment entered. Ordering Provider: ORACIO MENDOZA Report Released Date/Time: Jul 12, 2023 10:12 AM Reporting Lab: [facility] [place] [facility] [address] [address] Performing Lab: [facility] [place] [facility] [address] [address] [facility] [place] [facility] BASIC METABOLIC PANEL (non-fast ing) GLOMERULAR FILTRATION RATE/1.73 SQ M.PREDICTED [VOLUME RATE/AREA] IN SERUM, PLASMA OR BLOOD BY CREATININE- BASED FORMULA (CKD-EPI 2020) 86 mL/min 60 07/18 Specimen Type: SERUM No comment entered. Ordering Provider: ORACIO MENDOZA Report Released Date/Time: Jul 12, 2023 10:12 AM Reporting Lab: [facility] [place] [address] [address] Performing Lab: [facility] [place] [address] [address] [facility] [place] [facility] CBC LEUKOCYTES [#/VOLUME] IN BLOOD BY AUTOMATED COUNT 7.33 10*3/u L 4.50 - 11.00 07/18 Specimen Type: BLOOD No comment entered. Ordering Provider: ORACIO MENDOZA Report Released Date/Time: Jul 12, 2023 10:12 AM Reporting Lab: [facility] [place] [address] [address] Performing Lab: [facility] [place] [address] [address] [facility] [place] [facility] CBC ERYTHROCYTE S [#/VOLUME] IN BLOOD BY AUTOMATED COUNT 4.94 10*6/u L 4.23 - 5.66 07/18 Specimen Type: BLOOD No comment entered. Ordering Provider: ORACIO MENDOZA Report Released Date/Time: Jul 12, 2023 10:12 AM Reporting Lab: [facility] [place] [address] [address] Performing Lab: [facility] [place] [address] [place] [address] [facility] [place] [facility] CBC HEMOGLOBIN [MASS/VOLUM E] IN BLOOD 15.1 g/dL 12.8 - 17 07/18 Specimen Type: BLOOD No comment entered. Ordering Provider: ORACIO MENDOZA Report Released Date/Time: Jul 12, 2023 10:12 AM Reporting Lab: [facility] [place] [facility] [address] [address] Performing Lab: [facility] [place] [facility] [address] [address] [facility] [place] [facility] CBC HEMATOCRIT [VOLUME FRACTION] OF BLOOD BY AUTOMATED COUNT 46.2 39.2 - 50.4 07/18 Specimen Type: BLOOD No comment entered. Ordering Provider: ORACIO MENDOZA Report Released Date/Time: Jul 12, 2023 10:12 AM Reporting Lab: [facility] [place] [address] [address] Performing Lab: [facility] [place] [address] [address] [place] [facility] [place] [facility] CBC MCV [ENTITIC VOLUME] BY AUTOMATED COUNT 93.5 fL 82 - 99 07/18 Specimen Type: BLOOD No comment entered. Ordering Provider: ORACIO MENDOZA Report Released Date/Time: Jul 12, 2023 10:12 AM Reporting Lab: [facility] [place] [address] [address] Performing Lab: [facility] [place] [address] [address] [facility] [place] [facility] CBC MCHC [MASS/VOLUM E] BY AUTOMATED COUNT 32.7 g/dL 30.8 - 35.1 07/18 Specimen Type: BLOOD No comment entered. Ordering Provider: ORACIO MENDOZA Report Released Date/Time: Jul 12, 2023 10:12 AM Reporting Lab: [facility] [place] [address] [address] Performing Lab: [facility] [place] [facility] [address] [address] [facility] CBC PLATELETS [#/VOLUME] IN BLOOD BY AUTOMATED COUNT 181 10*3/u L 140 - 360 07/18 Specimen Type: BLOOD No comment entered. Ordering Provider: ORACIO MENDOZA Report Released Date/Time: Jul 12, 2023 10:12 AM Reporting Lab: [facility] [facility] [address] [address] Performing Lab: [facility] [place] [facility] [address] [address] [facility] [place] [facility] CBC ERYTHROCYTE DISTRIBUTIO N WIDTH [RATIO] BY AUTOMATED COUNT 13.2 12.0 - 16.0 07/18 Specimen Type: BLOOD No comment entered. Ordering Provider: ORACIO MENDOZA Report Released Date/Time: Jul 12, 2023 10:12 AM Reporting Lab: [facility] [place] [facility] [address] [address] Performing Lab: [facility] [place] [facility] [address] [address] [facility] [place] [facility] CBC MCH [ENTITIC MASS] BY AUTOMATED COUNT 30.6 pg 26.2 - 32.6 07/18 Specimen Type: BLOOD No comment entered. Ordering Provider: ORACIO MENDOZA Report Released Date/Time: Jul 12, 2023 10:12 AM Reporting Lab: [facility] [place] [facility] [address] [address] Performing Lab: [facility] [place] [facility] [address] [address] [facility] [place] [facility] LIPID PANEL, NON FASTING CHOLESTEROL [MASS/VOLUM E] IN SERUM OR PLASMA 119 mg/dL 07/18 Specimen Type: SERUM No comment entered. Ordering Provider: ORACIO MENDOZA Report Released Date/Time: Jul 12, 2023 10:12 AM Reporting Lab: [facility] [place] [facility] [address] [address] Performing Lab: [facility]PITALRATRI[facility] CENTERTRN [facility]CAREUSETS [facility] [address] [address] [facility]OSPITALRUSA [facility]OSPITALN [facility]AREUSE [facility] LIPID PANEL, NON FASTING TRIGLYCERID E [MASS/VOLUM E] IN SERUM OR PLASMA 48 mg/dL 0 - 150 07/18 Specimen Type: SERUM No comment entered. Ordering Provider: ORACIO MENDOZA Report Released Date/Time: Jul 12, 2023 10:12 AM Reporting Lab: [facility]IV[facility] HOSPITALRL TRN [facility]ALTHCAREUSETS [facility] [address] [address] Performing Lab: [facility]OSPITALRUSA [facility] PROVIDENCE HOSPITALN [facility] [address] [address] [facility] LIPID PANEL, NON FASTING CHOLESTEROL IN LDL [MASS/VOLUM E] IN SERUM OR PLASMA BY CALCULATION 63 mg/dL 0 - 129 07/18 Specimen Type: SERUM No comment entered. Ordering Provider: ORACIO MENDOZA Report Released Date/Time: Jul 12, 2023 10:12 AM Reporting Lab: [facility] HOSPITALRUSA [facility] PROVIDENCE HOSPITALN [facility]CAREUSEOUR [facility] [address] [address] Performing Lab: [facility]OSPITALRUSA [facility] PROVID[facility] HOSPITALN [facility]AREUSEOUR [facility] [address] [address] [facility] LIPID PANEL, NON FASTING CHOLESTEROL .TOTAL/CHOL ESTEROL IN HDL [MASS RATIO] IN SERUM OR PLASMA 2.6 07/18 Specimen Type: SERUM No comment entered. Ordering Provider: ORACIO MENDOZA Report Released Date/Time: Jul 12, 2023 10:12 AM Reporting Lab: [facility]PITALRATRI[facility] CENTERTRN [facility]AREUSEOUR [facility] [address] [address] Performing Lab: [facility]ITALRATRI[facility] CENTERTRN [facility]CAREUSEOUR [facility] [address] [address] [facility]AREUSE [facility] LIPID PANEL, NON FASTING CHOLESTEROL IN HDL [MASS/VOLUM E] IN SERUM OR PLASMA 46 mg/dL 40 - 60 07/18 Specimen Type: SERUM No comment entered. Ordering Provider: ORACIO MENDOZA Report Released Date/Time: Jul 12, 2023 10:12 AM Reporting Lab: [facility] [place] [facility] [address] [address] Performing Lab: [facility] [place] [facility] [address] [address] [facility] [place] [facility] LIVER FUNCTION PROTEIN [MASS/VOLUM E] IN SERUM OR PLASMA 6.7 g/dL 6.0 - 8.3 07/18 Specimen Type: SERUM No comment entered. Ordering Provider: ORACIO MENDOZA Report Released Date/Time: Jul 12, 2023 10:12 AM Reporting Lab: [facility] [place] [facility] [address] [address] Performing Lab: [facility] [place] [facility] [address] [address] [place] [facility] [place] [facility] LIVER FUNCTION ALBUMIN [MASS/VOLUM E] IN SERUM OR PLASMA 3.8 g/dL 3.5 - 5.0 07/18 Specimen Type: SERUM No comment entered. Ordering Provider: ORACIO MENDOZA Report Released Date/Time: Jul 12, 2023 10:12 AM Reporting Lab: [facility] [place] [facility] [address] [address] Performing Lab: [facility] [place] [facility] [address] [address] [place] [facility] [place] [facility] LIVER FUNCTION ALKALINE PHOSPHATASE [ENZYMATIC ACTIVITY/VO LUME] IN SERUM OR PLASMA 55 U/L 40 - 150 07/18 Specimen Type: SERUM No comment entered. Ordering Provider: ORACIO MENDOZA Report Released Date/Time: Jul 12, 2023 10:12 AM Reporting Lab: [facility] [place] [facility] [address] [address] Performing Lab: [facility] [place] [facility] [address] [address] [facility] [place] [facility] LIVER FUNCTION ASPARTATE AMINOTRANSF ERASE [ENZYMATIC ACTIVITY/VO LUME] IN SERUM OR PLASMA 26 U/L 5 - 34 07/18 Specimen Type: SERUM No comment entered. Ordering Provider: ORACIO MENDOZA Report Released Date/Time: Jul 12, 2023 10:12 AM Reporting Lab: [facility] [place] [facility] [address] [address] Performing Lab: [facility] [place] [facility] [address] [address] [facility] [place] [facility] LIVER FUNCTION ALANINE AMINOTRANSF ERASE [ENZYMATIC ACTIVITY/VO LUME] IN SERUM OR PLASMA 26 U/L 07/18 Specimen Type: SERUM No comment entered. Ordering Provider: ORACIO MENDOZA Report Released Date/Time: Jul 12, 2023 10:12 AM Reporting Lab: [facility] [place] [facility] [address] [address] Performing Lab: [facility] [place] [address] [address] [place] [facility] [facility] LIVER FUNCTION BILIRUBIN.T OTAL [MASS/VOLUM E] IN SERUM OR PLASMA 0.6 mg/dL 0.2 - 1.2 07/18 Specimen Type: SERUM No comment entered. Ordering Provider: ORACIO MENDOZA Report Released Date/Time: Jul 12, 2023 10:12 AM Reporting Lab: [facility] [place] [address] [address] Performing Lab: [facility] [place] [facility] [address] [address] [facility] [place] [facility] TSH THYROTROPIN [UNITS/VOLU ME] IN SERUM OR PLASMA 0.67 u[IU]/ mL 0.35 - 5.00 07/18 Specimen Type: SERUM No comment entered. Ordering Provider: ORACIO MENDOZA Report Released Date/Time: Jul 12, 2023 10:12 AM Reporting Lab: [facility] [place] [address] [address] Performing Lab: [facility] [place] [address] [address] [facility] CNTRATRIUM [facility] CENTERTRN [place] [facility] BASIC METABOLIC PANEL (fasting) UREA NITROGEN [MASS/VOLUM E] IN SERUM OR PLASMA 17 mg/dL 7 - 25 01/24 Specimen Type: SERUM No comment entered. Ordering Provider: ORACIO MENDOZA Report Released Date/Time: Jan 15, 2023 04:07 PM Reporting Lab: [facility]PITALRATRIUM [facility] F[facility] CH[facility] CENTERTRN [facility]USE[address] [address] Performing Lab: [facility] HOSPITALRL WSTRN [facility]USE[address] [address] [facility] HOSPITALRUSA [facility]OSPITALN [facility]AREUSE [facility] BASIC METABOLIC PANEL (fasting) GLUCOSE [MASS/VOLUM E] IN SERUM OR PLASMA 94 mg/dL 65 - 100 01/24 Specimen Type: SERUM No comment entered. Ordering Provider: ORACIO MENDOZA Report Released Date/Time: Jan 15, 2023 04:07 PM Reporting Lab: [facility]PITALRATRI[facility] CENTERTRN [facility]AREUSE[address] [address] Performing Lab: [facility] HOSPITALRL WSTRN [facility]USE[address] [address] [facility]AREUSE [facility] BASIC METABOLIC PANEL (fasting) SODIUM [MOLES/VOLU ME] IN SERUM OR PLASMA 141 mmol/L 135 - 145 01/24 Specimen Type: SERUM No comment entered. Ordering Provider: ORACIO MENDOZA Report Released Date/Time: Jan 15, 2023 04:07 PM Reporting Lab: [facility] HOSPITALRL TRN [address] [address] Performing Lab: [facility] HOSPITALRL WSTRN [address] [address] [facility]OSPITALRUSA [facility]OSPITALN [facility]AREUSE [facility] BASIC METABOLIC PANEL (fasting) POTASSIUM [MOLES/VOLU ME] IN SERUM OR PLASMA 3.8 mmol/L 3.5 - 5.0 01/24 Specimen Type: SERUM No comment entered. Ordering Provider: ORACIO MENDOZA Report Released Date/Time: Jan 15, 2023 04:07 PM Reporting Lab: [facility] HOSPITALRL TRN [address] [address] Performing Lab: [facility] HOSPITALRL WSTRN [facility]CAREUSETS [facility] [address] [address] [facility]OSPITALRL WSTRN [facility]AREUSE [facility] BASIC METABOLIC PANEL (fasting) CHLORIDE [MOLES/VOLU ME] IN SERUM OR PLASMA 107 mmol/L 100 - 110 01/24 Specimen Type: SERUM No comment entered. Ordering Provider: ORACIO MENDOZA Report Released Date/Time: Jan 15, 2023 04:07 PM Reporting Lab: [facility] HOSPITALRL WSTRN [place] [facility] [address] [address] Performing Lab: [facility] HOSPITALRL TRN [facility]AREUSEOUR [facility] [address] [address] [facility]PITALRUSA [facility] PROVIDENCE HOSPITALN [facility]AREUSE [facility] BASIC METABOLIC PANEL (fasting) CARBON DIOXIDE, TOTAL [MOLES/VOLU ME] IN SERUM OR PLASMA 27 meq/L 20 - 30 01/24 Specimen Type: SERUM No comment entered. Ordering Provider: ORACIO MENDOZA Report Released Date/Time: Jan 15, 2023 04:07 PM Reporting Lab: [facility] HOSPITALRL TRN [facility]AREUSE[address] [address] Performing Lab: [facility] W[facility]N [facility] [address] [address] [facility]N [facility] BASIC METABOLIC PANEL (fasting) CREATININE [MASS/VOLUM E] IN SERUM OR PLASMA 0.90 mg/dL 0.50 - 1.40 01/24 Specimen Type: SERUM No comment entered. Ordering Provider: ORACIO MENDOZA Report Released Date/Time: Jan 15, 2023 04:07 PM Reporting Lab: [facility] [place] [facility] [address] [phone] Performing Lab: [place] [facility] W[facility] [address] [facility]ITALRUSA [facility]ITALN [facility] BASIC METABOLIC PANEL (fasting) GLOMERULAR FILTRATION RATE/1.73 SQ M.PREDICTED [VOLUME RATE/AREA] IN SERUM, PLASMA OR BLOOD BY CREATININE- BASED FORMULA (CKD-EPI 2020) 86 mL/min 60 01/24 Specimen Type: SERUM No comment entered. Ordering Provider: ORACIO MENDOZA Report Released Date/Time: Jan 15, 2023 04:07 PM Reporting Lab: [facility] [place] [facility] [address] [address] Performing Lab: [facility] [place] [facility] [address] [address] [facility] [place] [facility] LIPID PANEL FASTING CHOLESTEROL [MASS/VOLUM E] IN SERUM OR PLASMA 109 mg/dL 01/24 Specimen Type: SERUM No comment entered. Ordering Provider: ORACIO MENDOZA Report Released Date/Time: Jan 15, 2023 04:07 PM Reporting Lab: [place] [facility] [place] [facility] [address] [address] Performing Lab: [place] [facility] [place] [address] [address] [place] [facility] [place] [facility] LIPID PANEL FASTING TRIGLYCERID E [MASS/VOLUM E] IN SERUM OR PLASMA 50 mg/dL 0 - 150 01/24 Specimen Type: SERUM No comment entered. Ordering Provider: ORACIO MENDOZA Report Released Date/Time: Jan 15, 2023 04:07 PM Reporting Lab: [facility] [place] [facility] [address] [address] Performing Lab: [facility] [place] [address] [address] [address] [place] [facility] [place] [facility] LIPID PANEL FASTING CHOLESTEROL IN LDL [MASS/VOLUM E] IN SERUM OR PLASMA BY CALCULATION 59 mg/dL 0 - 129 01/24 Specimen Type: SERUM No comment entered. Ordering Provider: ORACIO MENDOZA Report Released Date/Time: Jan 15, 2023 04:07 PM Reporting Lab: [facility] [place] [facility] [address] [address] Performing Lab: [facility] [place] [facility] [address] [address] [facility] [place] [facility] LIPID PANEL FASTING CHOLESTEROL .TOTAL/CHOL ESTEROL IN HDL [MASS RATIO] IN SERUM OR PLASMA 2.7 01/24 Specimen Type: SERUM No comment entered. Ordering Provider: ORACIO MENDOZA Report Released Date/Time: Jan 15, 2023 04:07 PM Reporting Lab: [facility]TRN [facility] [address] [address] Performing Lab: [facility]ITAL[facility]ENTERTRN [facility]USE[address] [address] [facility]RL [facility]N [facility] LIPID PANEL FASTING CHOLESTEROL IN HDL [MASS/VOLUM E] IN SERUM OR PLASMA 40 mg/dL 40 - 60 01/24 Specimen Type: SERUM No comment entered. Ordering Provider: ORACIO MENDOZA Report Released Date/Time: Jan 15, 2023 04:07 PM Reporting Lab: [facility]ITALRUSA [facility]ITALN [address] [address] Performing Lab: [facility]ITAL[facility]ENTERTRN [facility]USE[address] [address] [facility]ITALRUSA [facility]OSPITALN [facility]AREUSE [facility] THYROID T4 FREE(FT4) THYROXINE (T4) FREE [MASS/VOLUM E] IN SERUM OR PLASMA 1.30 ng/dL 0.6 - 1.6 01/24 Specimen Type: SERUM No comment entered. Ordering Provider: ORACIO MENDOZA Report Released Date/Time: Jan 15, 2023 04:07 PM Reporting Lab: [facility]ITALRAT[facility]ENTERTRN [facility]AREUSEOUR [facility] [address] [address] Performing Lab: [facility]ITALRAT[facility]ENTERTRN [facility]AREUSEOUR [facility] [address] [address] [facility]ITALN [facility] TSH THYROTROPIN [UNITS/VOLU ME] IN SERUM OR PLASMA 0.36 u[IU]/ mL 0.35 - 5.00 01/24 Specimen Type: SERUM No comment entered. Ordering Provider: ORACIO MENDOZA Report Released Date/Time: Jan 15, 2023 04:07 PM Reporting Lab: [facility]ITALRUSA [facility] HOSPITALN [facility]AREUSE[address] [address] Performing Lab: [facility] [address] [address] [facility] VITAMIN D (25-OH) 25-HYDROXYV ITAMIN D3 [MASS/VOLUM E] IN SERUM OR PLASMA 46 ng/mL 20 - 50 01/24 Specimen Type: SERUM No comment entered. Ordering Provider: ORACIO MENDOZA Report Released Date/Time: Jan 15, 2023 04:07 PM Reporting Lab: [facility] [address] [address] Performing Lab: [facility] [address] [address] [facility] Vital Signs Combined list of inpatient and outpatient Vital Signs from Department of Defense and Veterans Affairs, ranging from 12 months to all on record, depending upon the facility. Vital Sign Value Date Comments Source WEIGHT 212 04/10/2024 11:23:02 [place] BMI 32kg/m2 04/10/2024 11:23:02 [place] WEIGHT 213.4 04/03/2024 11:00:00 [place] BMI 33kg/m2 04/03/2024 11:00:00 [place] WEIGHT 213 03/13/2024 11:16:32 [place] BMI 32kg/m2 03/13/2024 11:16:32 [place] WEIGHT 213.2 03/06/2024 15:47:02 [place] BMI 32kg/m2 03/06/2024 15:47:02 [place] WEIGHT 214.6 02/28/2024 11:00:00 [place] BMI 33kg/m2 02/28/2024 11:00:00 [place] Encounters Combined list of: 1) Encounters from Department of Veterans Affairs facilities going back up to thelast 18 months. 2) Encounters from the Department of Defense facilities going back up to 280 months. Location Location Details Encounter Type Encounter Number Reason For Visit Attending Provider ADM Date DC Date Status Disposition Source [facility] EXERCISE CLASS [id number] Diagnos is: ICD-10- CM Z72.3 Lack of physica l exercis e
LARISA COATES 10/20 [facility] EXERCISE CLASS [id number] Diagnos is: ICD-10- CM Z72.3 Lack of physica l exercis e
LARISA COATES 10/23 [facility] NUTRITION CLASS [id number] Diagnos is: ICD-10- CM Z71.3 Dietary herb counselor ing and surveil nancy<b r/> RAKESH GRACIA 10/24 [facility] [place] [id number] Diagnos is: ICD-10- CM Z72.3 Lack of physica l exercis e
LARISA COATES 10/24 [facility] [place] [place] [facility] EXERCISE CLASS [id number] Diagnos is: ICD-10- CM Z72.3 Lack of physica l exercis e
Cecily ONEILL 10/25 [facility] [place] [facility] [place] WEIGHT MGMT CLASS [id number] Diagnos is: ICD-10- CM Z68.29 Body mass index [BMI] 29.0-29 .9, adult<b r/> GORDON PATHAK 10/26 [place] [facility] EXERCISE CLASS [id number] [id number] Diagnos is: ICD-10- CM Z72.3 Lack of physica l exercis e
LARISA COATES 10/27 [facility] [place] [facility] EXERCISE CLASS [id number] Diagnos is: ICD-10- CM Z72.3 Lack of physica l exercis e
Cecily ONEILL SHANICE 10/30 [facility] Outpatient Encounter [id number] 10/31 [facility] EXERCISE CLASS [id number] [id number] Diagnos is: ICD-10- CM Z72.3 Lack of physica l exercis e
Cecily ONEILLIN 11/01 [facility] EXERCISE CLASS [id number] Diagnos is: ICD-10- CM Z72.3 Lack of physica l exercis e
ILIANA UNDERWOOD 11/03 [facility] EXERCISE CLASS [id number] Diagnos is: ICD-10- CM Z72.3 Lack of physica l exercis e
CRISTAL LAZCANO 11/06 [facility] [place] [facility] [place] NUTRITION CLASS [id number] Diagnos is: ICD-10- CM Z71.3 Dietary herb counselor ing and surveil nancy<b r/> RAKESH GRACIA 11/07 [facility] [place] [facility] [place] GROUP BEHAVE COUNS 2-10 [id number] Diagnos is: ICD-10- CM E66.09 Other obesity due to excess calorie s
EVAN KRAMER 11/09 [place] [facility] EXERCISE CLASS [id number] [id number] Diagnos is: ICD-10- CM Z72.3 Lack of physica l exercis e
Cecily ONEILL SHANICE 11/15 [facility] [place] [facility] LD WEIGHT MGMT CLASS [id number] [id number] Diagnos is: ICD-10- CM Z68.29 Body mass index [BMI] 29.0-29 .9, adult<b r/> GORDON PATHAK A 11/16 [place] [facility] EXERCISE CLASS [id number] Diagnos is: ICD-10- CM Z72.3 Lack of physica l exercis e
LARISA COATES 11/17 [facility] EXERCISE CLASS [id number] Diagnos is: ICD-10- CM Z72.3 Lack of physica l exercis e
CRISTAL LAZCANO 11/20 [facility] [place] [facility] EXERCISE CLASS [id number] [id number] Diagnos is: ICD-10- CM Z72.3 Lack of physica l exercis e
Cecily ONEILL SHANICE 11/22 [facility] [place] [facility] GROUP BEHAVE COUNS 2-10 [id number] [id number] Diagnos is: ICD-10- CM E66.3 Overwei ght<br/ > EVAN KRAMER P 11/23 [place] [facility] EXERCISE CLASS [id number] [id number] Diagnos is: ICD-10- CM Z72.3 Lack of physica l exercis e
ILIANA UNDERWOOD 11/23 [facility] NUTRITION CLASS [id number] Diagnos is: ICD-10- CM Z71.3 Dietary herb counselor ing and surveil nancy<b r/> GRACIARAKESH ELDRIDGE 11/28 [place] [facility] [place] [facility] [place] [facility] EXERCISE CLASS [id number] [id number] Diagnos is: ICD-10- CM Z72.3 Lack of physica l exercis e
CRISTAL LAZCANO M 11/29 [place] [facility] [place] [facility] [place] [facility] Outpatient Encounter [id number] 11/29 [place] [facility] [place] [facility] WEIGHT MGMT CLASS [id number] [id number] Diagnos is: ICD-10- CM Z68.29 Body mass index [BMI] 29.0-29 .9, adult<b r/> GORDON PATHAK 11/30 [facility] GROUP BEHAVE COUNS 2-10 [id number] [id number] Diagnos is: ICD-10- CM E66.3 Overwei ght<br/ > EVAN KRAMER P 12/07 [facility] [place] [facility] EXERCISE CLASS [id number] [id number] Diagnos is: ICD-10- CM Z72.3 Lack of physica l exercis e
Cecily ONEILL 12/13 [place] [facility] [place] [facility] WEIGHT MGMT CLASS [id number] [id number] Diagnos is: ICD-10- CM Z68.29 Body mass index [BMI] 29.0-29 .9, adult<b r/> GORDON PATHAK 12/14 [place] [facility] [place] [facility] EXERCISE CLASS [id number] Diagnos is: ICD-10- CM Z72.3 Lack of physica l exercis e
CRISTAL LAZCANO 12/15 [facility] EXERCISE CLASS [id number] [id number] Diagnos is: ICD-10- CM Z72.3 Lack of physica l exercis e
CRISTAL LAZCANO LLCourtney M 12/18 [facility] EXERCISE CLASS [id number] [id number] Diagnos is: ICD-10- CM Z72.3 Lack of physica l exercis e
LARISA COATES B 12/20 [facility] [place] WEIGHT MGMT CLASS [id number] [id number] Diagnos is: ICD-10- CM Z68.29 Body mass index [BMI] 29.0-29 .9, adult<b r/> GORDON PATHAK 12/21 [place] [facility] EXERCISE CLASS [id number] [id number] Diagnos is: ICD-10- CM Z72.3 Lack of physica l exercis e
CRISTAL LAZCANO M 12/25 [facility] Out[facility]counter [id number] 12/28 [facility] [place] WEIGHT MGMT CLASS [id number] [id number] Diagnos is: ICD-10- CM Z68.29 Body mass index [BMI] 29.0-29 .9, adult<b r/> GORDON PATHAK 01/04 [place] [facility] LD GROUP BEHAVE COUNS 2-10 [id number] [id number] Diagnos is: ICD-10- CM E66.3 Overwei ght<br/ > EVAN KRAMER P 01/11 [place] [facility] EXERCISE CLASS [id number] Diagnos is: ICD-10- CM Z72.3 Lack of physica l exercis e
CRISTAL LAZCANO M 01/12 [facility] EXERCISE CLASS [id number] [id number] Diagnos is: ICD-10- CM Z72.3 Lack of physica l exercis e
CRISTAL LAZCANO M 01/15 [facility] EXERCISE CLASS [id number] [id number] Diagnos is: ICD-10- CM Z72.3 Lack of physica l exercis e
Cecily ONEILL 01/17 [facility] [place] GROUP BEHAVE COUNS 2-10 [id number] [id number] Diagnos is: ICD-10- CM E66.3 Overwei ght<br/ > EVAN KRAMER P 01/18 [place] [facility] EXERCISE CLASS [id number] [id number] Diagnos is: ICD-10- CM Z72.3 Lack of physica l exercis e
ILIANA UNDERWOOD 01/18 [facility] Out[facility] Encounter [id number] 01/18 [facility] EXERCISE CLASS [id number] [id number] Diagnos is: ICD-10- CM Z72.3 Lack of physica l exercis e
LARISA COATES 01/19 [facility] EXERCISE CLASS [id number] [id number] Diagnos is: ICD-10- CM Z72.3 Lack of physica l exercis e
Cecily ONEILLIN 01/24 [facility] [place] [facility] [place] [facility] Outpatient Encounter [id number] 01/25 [facility] [place] [facility] WEIGHT MGMT CLASS [id number] [id number] Diagnos is: ICD-10- CM Z68.29 Body mass index [BMI] 29.0-29 .9, adult<b r/> GORDON PATHAK 01/25 [place] [facility] EXERCISE CLASS [id number] [id number] Diagnos is: ICD-10- CM Z72.3 Lack of physica l exercis e
CRISTAL LAZCANO M 01/26 [facility] [place] [facility] [place] OFFICE O/P EST MOD 30-39 MIN [id number] [id number] Diagnos is: ICD-10- CM M17.9 Osteoar thritis of knee, unspeci fied
Guzman MENDOZA 01/26 [facility] [place] [facility] [place] EXERCISE CLASS [id number] [id number] Diagnos is: ICD-10- CM Z72.3 Lack of physica l exercis e
CRISTAL LAZCANO M 01/29 [facility] [place] [facility] [place] [facility] PT EDUCATION NOC GROUP [id number] [id number] Diagnos is: ICD-10- CM Z71.3 Dietary herb counselor ing and surveil nancy<b r/> RAKESH GRACIA 01/30 [facility] [place] [facility] LD GROUP BEHAVE COUNS 2-10 [id number] [id number] Diagnos is: ICD-10- CM E66.09 Other obesity due to excess calorie s
EVAN KRAMER P 02/01 [facility] [place] [facility] EXERCISE CLASS [id number] [id number] Diagnos is: ICD-10- CM Z72.3 Lack of physica l exercis e
CRISTAL LAZCANO LLCourtney M 02/05 [facility] EXERCISE CLASS [id number] [id number] Diagnos is: ICD-10- CM Z72.3 Lack of physica l exercis e
Cecily ONEILL 02/07 [facility] [place] [facility] [place] WEIGHT MGMT CLASS [id number] [id number] Diagnos is: ICD-10- CM Z68.29 Body mass index [BMI] 29.0-29 .9, adult<b r/> GORDON PATHAK 02/08 [facility] [place] [facility] [place] [facility] EXERCISE CLASS [id number] [id number] Diagnos is: ICD-10- CM Z72.3 Lack of physica l exercis e
NENOCRISTAL M 02/09 [facility] [place] [facility] EXERCISE CLASS [id number] [id number] Diagnos is: ICD-10- CM Z72.3 Lack of physica l exercis e
SYDNEYCRISTAL LEAL M 02/12 [facility] [place] [facility] SELF-MGMT EDUC/TRAIN 2-4 [place] [id number] [id number] Diagnos is: ICD-10- CM Z71.3 Dietary herb counselor ing and surveil nancy<b r/> RAKESH GRACIA 02/13 [facility] EXERCISE CLASS [id number] [id number] Diagnos is: ICD-10- CM Z72.3 Lack of physica l exercis e
Cecily ONEILL SHANICE 02/14 [facility] [place] [facility] [place] [facility] EXERCISE CLASS [id number] [id number] Diagnos is: ICD-10- CM Z72.3 Lack of physica l exercis e
CRISTAL LAZCANO M 02/19 [facility] [place] [facility] [place] EXERCISE CLASS [id number] [id number] Diagnos is: ICD-10- CM Z72.3 Lack of physica l exercis e
Cecily ONEILL SHANICE 02/21 [facility] [place] [facility] [place] Outpatient Encounter [id number] Diagnos is: ICD-10- CM Z02.89 Encount er for other adminis trative examina tions<b r/> ZANDER SANCHEZ A 02/22 [facility] [place] [facility] WEIGHT MGMT CLASS [id number] [id number] Diagnos is: ICD-10- CM Z68.29 Body mass index [BMI] 29.0-29 .9, adult<b r/> GORDON PATHAK A 02/22 [place] [facility] [place] EXERCISE CLASS [id number] [id number] Diagnos is: ICD-10- CM Z72.3 Lack of physica l exercis e
LARISA COATES 02/23 [facility] [place] [facility] [place] EXERCISE CLASS [id number] [id number] Diagnos is: ICD-10- CM Z72.3 Lack of physica l exercis e
CRISTAL LAZCANO 02/26 [facility] EXERCISE CLASS [id number] [id number] Diagnos is: ICD-10- CM Z72.3 Lack of physica l exercis e
LARISA COATES 02/27 [facility] EXERCISE CLASS [id number] [id number] Diagnos is: ICD-10- CM Z72.3 Lack of physica l exercis e
Cecily ONEILLIN 02/28 [facility] [place] [facility] [place] WEIGHT MGMT CLASS [id number] [id number] Diagnos is: ICD-10- CM Z68.29 Body mass index [BMI] 29.0-29 .9, adult<b r/> GORDON PATHAK 03/01 [place] [facility] Out[facility] Encounter [id number] 03/05 [facility] EXERCISE CLASS [id number] [id number] Diagnos is: ICD-10- CM Z72.3 Lack of physica l exercis e
SYDNEYCRISTAL LEAL Cecily 03/05 [facility] Out[facility] Encounter [id number] 03/05 [facility] SELF-MGMT EDUC & TRAIN 1 [place] [id number] [id number] Diagnos is: ICD-10- CM G47.33 Obstruc tive sleep apnea (adult) (pediat amparo)
SHELBIMATTEO AMPARO 03/05 [facility] EXERCISE CLASS [id number] [id number] Diagnos is: ICD-10- CM Z72.3 Lack of physica l exercis e
ILIANA UNDERWOOD NABILADANNY GEORGE 03/07 [facility] [place] [facility] LD GROUP BEHAVE COUNS 2-10 [id number] [id number] Diagnos is: ICD-10- CM E66.09 Other obesity due to excess calorie s
EVAN KRAMER P 03/08 [place] [facility] EXERCISE CLASS [id number] [id number] Diagnos is: ICD-10- CM Z72.3 Lack of physica l exercis e
LARISA COATES 03/09 [facility] EXERCISE CLASS [id number] [id number] Diagnos is: ICD-10- CM Z72.3 Lack of physica l exercis e
Cecily ONEILL 03/14 [facility] [place] [facility] GROUP BEHAVE COUNS 2-10 [id number] [id number] Diagnos is: ICD-10- CM E66.3 Overwei ght<br/ > EVAN KRAMER P 03/15 [place] [facility] [place] [facility] SLEEP STUDY UNATT&RESP EFFT [id number] [id number] Diagnos is: ICD-10- CM G47.33 Obstruc tive sleep apnea (adult) (pediat amparo)
SHELBI,FREDE AMPARO 03/16 [facility] EXERCISE CLASS [id number] [id number] Diagnos is: ICD-10- CM Z72.3 Lack of physica l exercis e
Cecily ONEILL 03/21 [facility] EXERCISE CLASS [id number] [id number] Diagnos is: ICD-10- CM Z72.3 Lack of physica l exercis e
LARISA COATES 03/23 [facility] [place] [facility] [place] [facility] PT EDUCATION NOC GROUP [id number] [id number] Diagnos is: ICD-10- CM Z71.3 Dietary herb counselor ing and surveil nancy<b r/> RAKESH GRACIA 03/27 [facility] [place] [facility] [place] [facility] EXERCISE CLASS [id number] [id number] Diagnos is: ICD-10- CM Z72.3 Lack of physica l exercis e
Cecily ONEILL SHANICE 03/28 [facility] [place] [facility] SLEEP STUDY UNATT&RESP EFFT [id number] Diagnos is: ICD-10- CM G47.33 Obstruc tive sleep apnea (adult) (pediat amparo)
CURIOSO-UCourtneyVILMA 03/28 [facility] LD GROUP BEHAVE COUNS 2-10 [id number] [id number] Diagnos is: ICD-10- CM E66.3 Overwei ght<br/ > EVAN KRAMER P 03/29 [facility] [place] [facility] EXERCISE CLASS [id number] [id number] Diagnos is: ICD-10- CM Z72.3 Lack of physica l exercis e
Cecily ONEILL SHANICE 04/04 [facility] [place] [facility] LD GROUP BEHAVE COUNS 2-10 [id number] [id number] Diagnos is: ICD-10- CM E66.09 Other obesity due to excess calorie s
EVAN KRAMER P 04/05 [place] [facility] LD GROUP BEHAVE COUNS 2-10 [id number] [id number] Diagnos is: ICD-10- CM E66.3 Overwei ght<br/ > EVAN KRAMER P 04/05 [facility] [place] [facility] [place] [facility] PT EDUCATION NOC GROUP [id number] [id number] Diagnos is: ICD-10- CM Z71.3 Dietary herb counselor ing and surveil nancy<b r/> RAKESH GRACIA 04/10 [place] [facility] [place] [facility] [place] LD WEIGHT MGMT CLASS 29018-1.63 [id number] Diagnos is: ICD-10- CM Z68.29 Body mass index [BMI] 29.0-29 .9, adult<b r/> GORDON PATHAK 04/12 [facility] [place] [facility] [place] [facility] EXERCISE CLASS 66154-3.63 [id number] Diagnos is: ICD-10- CM 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
Cecily ONEILL SHANICE 04/25 [place] [facility] [place] [facility] [place] LD WEIGHT MGMT CLASS 92170-6.63 [id number] Diagnos is: ICD-10- CM Z68.29 Body mass index [BMI] 29.0-29 .9, adult<b r/> GORDON PATHAK 04/26 [facility] [place] [facility] EXERCISE CLASS 68033-4.63 [id number] Diagnos is: ICD-10- CM Z72.3 Lack of physica l exercis e
SYDNEYETCRISTAL LLY M 04/27 [place] [facility] [place] [facility] EXERCISE CLASS 61954-4.63 [id number] Diagnos is: ICD-10- CM Z72.3 Lack of physica l exercis e
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
Cecily ONEILL 05/02 [place] [facility] [place] 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
SYDNEYETKE LLY M 05/07 [facility] [place] [facility] [place] [facility] EXERCISE CLASS 07006-9.63 [id number] Diagnos is: ICD-10- CM Z72.3 Lack of physica l exercis e
Cecily ONEILL SHANICE 05/09 [place] [facility] [place] [facility] LD GROUP BEHAVE COUNS 2-10 34036-3.63 [id number] Diagnos is: ICD-10- CM E66.09 Other obesity due to excess calorie s
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
CRISTAL LAZCANO M 05/11 [facility] [place] [facility] [place] [facility] PT EDUCATION NOC GROUP [id number] [id number] Diagnos is: ICD-10- CM Z71.3 Dietary herb counselor ing and surveil nancy<b r/> RAKESH GRACIA 05/15 [facility] [place] [facility] [place] [facility] EXERCISE CLASS 19027-5.63 [id number] Diagnos is: ICD-10- CM Z72.3 Lack of physica l exercis e
Cecily ONEILL SHANICE 05/16 [facility] [place] [place] [facility] WEIGHT MGMT CLASS 41505-7.63 [id number] Diagnos is: ICD-10- CM Z68.29 Body mass index [BMI] 29.0-29 .9, adult<b r/> GORDON PATHAK 05/17 [place] [facility] [place] [facility] EXERCISE CLASS 33333-8.63 [id number] Diagnos is: ICD-10- CM Z72.3 Lack of physica l exercis e
CRISTAL LAZCANO M 05/21 [facility] [place] [facility] LD GROUP BEHAVE COUNS 2-10 67301-8.63 [id number].[id number] Diagnos is: ICD-10- CM E66.09 Other obesity due to excess calorie s
EVAN KRAMER P [place] [facility] PT EDUCATION NOC GROUP 61687-0.63 [id number] Diagnos is: ICD-10- CM Z71.3 Dietary herb counselor ing and surveil nancy<b r/> RAKESH GRACIA LIE CHENTE 05/28 [facility] [place] [facility] LD GROUP BEHAVE COUNS 2-10 20838-0.63 [id number].[id number] Diagnos is: ICD-10- CM E66.09 Other obesity due to excess calorie s
EVAN KRAMER P 05/30 [place] [facility] LD GROUP BEHAVE COUNS 2-10 42929-2.63 [id number].[id number] Diagnos is: ICD-10- CM E66.09 Other obesity due to excess calorie s
EVAN KRAMER P 06/06 [place] [facility] PT EDUCATION NOC GROUP 02229-5.63 [id number] Diagnos is: ICD-10- CM Z71.3 Dietary herb counselor ing and surveil nancy<b r/> RAKESH GRACIA LIE CHENTE 06/11 [facility] [place] [facility] LD WEIGHT MGMT CLASS 38368-9.63 [id number].[id number] Diagnos is: ICD-10- CM E66.3 Overwei ght<br/ > GORDON PATHAK 06[facility] CLASS 75009-0.63 [id number].[id number] Diagnos is: ICD-10- CM Z68.29 Body mass index [BMI] 29.0-29 .9, adult<b r/> GORDON PATHAK 06/20 [place] [facility] PT EDUCATION NOC GROUP 49891-6.63 [id number] Diagnos is: ICD-10- CM Z71.3 Dietary herb counselor ing and surveil nancy<b r/> RAKESH GRACIA 06/25 [facility] [place] [facility] WEIGHT MGMT CLASS 99265-9.63 [id number].[id number] Diagnos is: ICD-10- CM Z68.29 Body mass index [BMI] 29.0-29 .9, adult<b r/> LAWSON GORDON Macedo 06/27 [facility] LD GROUP BEHAVE COUNS 2-10 08129-1.63 1BY.[id number] Diagnos is: ICD-10- CM E66.3 Overwei ght<br/ > NIAEVAN SORIANO P 07/04 [facility] WEIGHT MGMT CLASS 16114-8.63 [id number].[id number] Diagnos is: ICD-10- CM Z68.29 Body mass index [BMI] 29.0-29 .9, adult<b r/> LAWSON GORDON Macedo 07/18 [facility] [place] [facility] [facility] OFFICE O/P EST MOD 30 MIN 62659-4.63 [id number] Diagnos is: ICD-10- CM K21.9 Gastro- esophag eal reflux disease without esophag itis
Guzman MENDOZA 07/22 [facility] [place] [facility] [place] [facility] Outpatient Encounter [id number] [id number] 07/23 [facility] [place] [facility] GROUP BEHAVE COUNS 2-10 26249-3.63 [id number].[id number] Diagnos is: ICD-10- CM E66.3 Overwei ght<br/ > EVAN KRAMER P 07/25 [facility] [place] [facility] [place] [facility] PT EDUCATION NOC GROUP 63627-9.63 [id number] Diagnos is: ICD-10- CM Z71.3 Dietary herb counselor ing and surveil nancy<b r/> RAKESH GRACIA 05/07 /2024 [facility] [place] [facility] LD GROUP BEHAVE COUNS 2-10 92392-9.63 [id number].[id number] Diagnos is: ICD-10- CM E66.3 Overwei ght<br/ > EVAN KRAMER P 08/01 [place] [facility] LD GROUP BEHAVE COUNS 2-10 84595-8.63 1BY.[id number] Diagnos is: ICD-10- CM E66.3 Overwei ght<br/ > EVAN KRAMER P 08/08 [place] [facility] EXERCISE CLASS 47335-4.63 [id number] Diagnos is: ICD-10- CM 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
Cecily ONEILL SHANICE 08/21 [facility] [place] [facility] LD WEIGHT MGMT CLASS 43472-0.63 [id number].[id number] Diagnos is: ICD-10- CM Z68.29 Body mass index [BMI] 29.0-29 .9, adult<b r/> GORDON PATHAK 08/22 [place] [facility] EXERCISE CLASS 09633-4.63 [id number] Diagnos is: ICD-10- CM Z72.3 Lack of physica l exercis e
LARISA COATES 08/23 [facility] [place] [facility] EXERCISE CLASS 00482-0.63 [id number] Diagnos is: ICD-10- CM Z72.3 Lack of physica l exercis e
Cecily ONEILL SHANICE 08/26 [facility] [place] [facility] LD WEIGHT MGMT CLASS 07412-6.63 [id number] Diagnos is: ICD-10- CM Z68.29 Body mass index [BMI] 29.0-29 .9, adult<b r/> GORDON PATHAK 08/29 [place] [facility] EXERCISE CLASS 65837-7.63 [id number] Diagnos is: ICD-10- CM Z72.3 Lack of physica l exercis e
CRISTAL LAZCANO LLY M 08/30 [facility] [place] [facility] EXERCISE CLASS 66152-5.63 [id number] Diagnos is: ICD-10- CM Z72.3 Lack of physica l exercis e
Cecily ONEILL 09/04 [facility] [place] [facility] [place] WEIGHT MGMT CLASS 15471-2.63 [id number].[id number] Diagnos is: ICD-10- CM E66.09 Other obesity due to excess calorie s
GORDON PATHAK 09/05 [place] [facility] [place] EXERCISE CLASS 07433-4.63 [id number] Diagnos is: ICD-10- CM Z72.3 Lack of physica l exercis e
CRISTAL LAZCANO M 09/06 [facility] [place] [facility] LD GROUP BEHAVE COUNS 2-10 53137-4.63 1BY.[id number] Diagnos is: ICD-10- CM E66.09 Other obesity due to excess calorie s
EVAN KRAMER P 09/12 [place] [facility] EXERCISE CLASS 71889-8.63 [id number] Diagnos is: ICD-10- CM Z72.3 Lack of physica l exercis e
LARISA COATES 09/13 [facility] [place] [facility] WEIGHT MGMT CLASS 22182-6.63 [id number] Diagnos is: ICD-10- CM Z68.30 Body mass index [BMI] 30.0-30 .9, adult<b r/> GORDON PATHAK 09/19 [place] [facility] EXERCISE CLASS 83032-5.63 [id number] Diagnos is: ICD-10- CM Z72.3 Lack of physica l exercis e
LARISA COATES 09/20 [facility] [place] EXERCISE CLASS 02952-2.63 [id number] Diagnos is: ICD-10- CM Z72.3 Lack of physica l exercis e
CRISTAL LAZCANO M 09/23 [facility] [place] [place] [address]-0.63 [id number] Diagnos is: ICD-10- CM L71.8 Other rosacea
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
Cecily ONEILL 09/25 [facility] [place] [place] EXERCISE CLASS 75336-2.63 [id number] Diagnos is: ICD-10- CM Z72.3 Lack of physica l exercis e
CRISTAL LAZCANO 09/30 [facility] [place] [facility] [place] LD GROUP BEHAVE COUNS 2-10 15841-0.63 [id number].[id number] Diagnos is: ICD-10- CM E66.09 Other obesity due to excess calorie s
EVAN KRAMER 10/03 [facility] WEIGHT MGMT CLASS 37592-2.63 [id number].[id number] Diagnos is: ICD-10- CM Z68.29 Body mass index [BMI] 29.0-29 .9, adult<b r/> GORDON PATHAK 10/10 [facility] [place] EXERCISE CLASS 91698-9.63 [id number] Diagnos is: ICD-10- CM Z72.3 Lack of physica l exercis e
CRISTAL LAZCANOY M 10/14 [facility] EXERCISE CLASS 00855-6.63 [id number] Diagnos is: ICD-10- CM Z72.3 Lack of physica l exercis e
Cecily ONEILL 10/16 [facility] [place] [facility] GROUP BEHAVE COUNS 2-10 80288-9.63 [id number].[id number] Diagnos is: ICD-10- CM E66.09 Other obesity due to excess calorie s
EVAN KRAMER 10/17 [facility] EXERCISE CLASS 20126-0.63 [id number] Diagnos is: ICD-10- CM Z72.3 Lack of physica l exercis e
CRISTAL LAZCANO M 10/18 [facility] EXERCISE CLASS 46428-5.63 [id number] Diagnos is: ICD-10- CM Z72.3 Lack of physica l exercis e
CRISTAL LAZCANO M 10/21 [facility] Out[facility] Encounter [id number] [id number] Guzman MENDOZA 10/22 [facility] POS AIRWAY PRESSURE FILTER 62151-8.63 [id number] Diagnos is: ICD-10- CM G47.30 Sleep apnea, unspeci fied
KATHARINA ARVIZU P 10/22 [facility] EXERCISE CLASS 28373-3.63 1. 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
Cecily ONEILL 10/23 [facility] [place] [facility] [place] LD HLTH BHV IVNTJ GRP EA ADDL 85145-6.63 [id number].[id number] Diagnos is: ICD-10- CM Z68.30 Body mass index [BMI] 30.0-30 .9, adult<b r/> GORDON PATHAK 10/24 [place] [facility] UNLISTED PHYSCL [place] [address]-7.63 1. 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
LARISA COATES 10/25 [facility] EXERCISE CLASS 10389-0.63 1. 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
CRISTAL LAZCANO 10/25 [facility] Outpatient Encounter 79922-9.63 [id number] 10/25 [facility] [place] Outpatient Encounter [id number] [id number] 10/25 [facility] [place] EXERCISE CLASS 70036-3.63 [id number] Diagnos is: ICD-10- CM Z72.3 Lack of physica l exercis e
CHALLET,KE LLY M 10/28 [facility] [place] [place] [facility] [place] [facility] COLLJ & INTERPJ DATA EA 30 D 07203-1.63 [id number] Diagnos is: ICD-10- CM G47.30 Sleep apnea, unspeci fied
ST AMANT,KATHARINA E P 10/29 [facility] [place] [facility] [place] [facility] EXERCISE CLASS 86770-9.63 [id number] Diagnos is: ICD-10- CM Z72.3 Lack of physica l exercis e
Cecily ONEILL SHANICE 10/30 [facility] [place] [facility] LD HLTH BHV IVNTJ GRP EA ADDL 78827-9.63 [id number] Diagnos is: ICD-10- CM Z68.30 Body mass index [BMI] 30.0-30 .9, adult<b r/> GORDON PATHAK 10/31 [place] [facility] [place] [facility] EXERCISE CLASS 38638-5.63 [id number] Diagnos is: ICD-10- CM Z72.3 Lack of physica l exercis e
CHALLET,KE LLY M 11/01 [facility] [place] [facility] [place] [facility] EXERCISE CLASS 90375-6.63 [id number] Diagnos is: ICD-10- CM Z72.3 Lack of physica l exercis e
CHALLET,KE LLY M 11/04 [facility] [place] [facility] [place] [facility] EXERCISE CLASS 36732-4.63 [id number] Diagnos is: ICD-10- CM Z72.3 Lack of physica l exercis e
Cecily ONEILL SHANICE 11/06 [facility] [place] [facility] LD GROUP BEHAVE COUNS 2-10 88012-3.63 [id number] Diagnos is: ICD-10- CM E66.09 Other obesity due to excess calorie s
EVAN KRAMER P [place] [facility] EXERCISE CLASS 74358-0.63 1. 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
MAI,Cecily SHANICE 11/13 [facility] [place] [facility] IV[facility] GRP EA ADDL [id number] [id number] Diagnos is: ICD-10- CM Z68.30 Body mass index [BMI] 30.0-30 .9, adult<b r/> GORDON PATHAK [place] [facility] EXERCISE CLASS 20616-3.63 1. 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
MAI,Cecily SHANICE 11/15 [facility] [place] [facility] [place] [facility] EXERCISE CLASS 49702-9.63 1. 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
CRISTAL LAZCANO LLY M 11/18 [facility] [place] EXERCISE CLASS 59209-9.63 1. 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
MAI,Cecily SHANICE 11/20 [facility] [place] [facility] GROUP BEHAVE COUNS 2-10 25586-3.63 [id number] Diagnos is: ICD-10- CM E66.09 Other obesity due to excess calorie s
EVAN KRAMER P 11/21 [place] [facility] EXERCISE CLASS 06950-1.63 [id number] Diagnos is: ICD-10- CM Z72.3 Lack of physica l exercis e
Cecily ONEILLIN 11/27 [facility] [place] [facility] HLTH BHV IVNTJ GRP EA ADDL [id number] [id number] Diagnos is: ICD-10- CM Z68.30 Body mass index [BMI] 30.0-30 .9, adult<b r/> GORDON PATHAK A 11/28 [place] [facility] [place] [facility] EXERCISE CLASS 24503-6.63 1. 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
LARISA COATES 11/29 [facility] [place] [facility] [place] [facility] EXERCISE CLASS 15401-2.63 1. 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
CRISTAL LAZCANO LLY M 12/02 [facility] [place] [facility] COLLJ & INTERPJ DATA EA 30 D 16589-8.63 [id number] Diagnos is: ICD-10- CM G47.30 Sleep apnea, unspeci fied
ST AMDAVIDKATHARINA E P 12/02 [facility] [place] [facility] [place] [facility] EXERCISE CLASS 68002-0.63 1. 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
NENOKE LLY M 12/04 [facility] [place] [facility] GROUP BEHAVE COUNS 2-10 55972-6.63 [id number].[id number] Diagnos is: ICD-10- CM E66.09 Other obesity due to excess calorie s
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<b r/> RAKESH GRACIA 12/10 [facility] [place] [facility] [place] [facility] HLTH V IVNTJ GRP EA ADDL [id number] [id number] Diagnos is: ICD-10- CM Z73.3 Stress, not elsewhe re classif ied<br/ > DAYSI HANLEYU RA 12/10 [facility] [place] [facility] IVNTJ GRP EA ADDL [id number] [id number] Diagnos is: ICD-10- CM Z68.30 Body mass index [BMI] 30.0-30 .9, adult<b r/> GORDON PATHAK Hellen 12/12 [facility] [place] [facility] EXERCISE CLASS 13741-7.63 [id number] Diagnos is: ICD-10- CM Z72.3 Lack of physica l exercis e
CRISTAL LAZCANO 12/16 [place] [facility] [facility] IVNTJ GRP EA ADDL 47537-9.63 [id number] Diagnos is: ICD-10- CM Z68.30 Body mass index [BMI] 30.0-30 .9, adult<b r/> GORDON PATHAK Hellen 12/19 [place] [facility] [place] [facility] PT EDUCATION NOC GROUP 60555-7.63 1. 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
EVAN KRAMER P 12/26 [facility] [place] [facility] BHV IVNTJ GRP EA ADDL 79519-7.63 [id number] Diagnos is: ICD-10- CM Z68.30 Body mass index [BMI] 30.0-30 .9, adult<b r/> GORDON PATHAK 01/02 [facility] [place] [facility] PT EDUCATION NOC GROUP 36400-8.63 1. Diagnos is: ICD-10- CM Z71.3 Dietary herb counselor ing and surveil nancy<b r/> RAKESH GRACIA NEYDA ELDRIDGE 01/07 [place] [facility] [facility] GROUP BEHAVE COUNS 2-10 92539-3.63 1BY. 38 Diagnos is: ICD-10- CM E66.09 Other obesity due to excess calorie s
EVAN KRAMER P 01/09 [facility] IVNTJ GRP EA ADDL 33877-3.63 [id number] Diagnos is: ICD-10- CM Z68.30 Body mass index [BMI] 30.0-30 .9, adult<b r/> GORDON PATHAK 01/16 [facility] [place] [place] [facility] OFFICE O/P EST MOD 30 MIN 67575-8.63 1. Diagnos is: ICD-10- CM G47.30 Sleep apnea, unspeci fied
Guzman MENDOZA 01/20 [place] [facility] [facility] OFFICE O/P EST MOD 30 MIN 26943-2.68 [id number] Diagnos is: ICD-10- CM G47.33 Obstruc tive sleep apnea (adult) (pediat amparo)
ARELIS NUNO 01/21 [facility] [place] [facility] Outpatient Encounter [id number] [id number] Diagnos is: ICD-10- CM G47.33 Obstruc tive sleep apnea (adult) (pediat amparo)
NUNO,ARELIS 01/21 [place] [facility] [facility] LD GROUP BEHAVE COUNS 2-10 49067-7.63 1BY. 47 Diagnos is: ICD-10- CM E66.811 Obesity , class 1
EVAN KRAMER CHAEL P 01/23 [place] GROUP BEHAVE COUNS 2-10 67241-5.63 [id number] Diagnos is: ICD-10- CM E66.811 Obesity , class 1
NIA,MI CHAEL P 01/30 [facility] IVNTJ GRP EA ADDL 70039-7.63 [id number] Diagnos is: ICD-10- CM Z68.30 Body mass index [BMI] 30.0-30 .9, adult<b r/> GORDON PATHAK 02/06 [facility] [id number] [id number] Diagnos is: ICD-10- CM Z68.30 Body mass index [BMI] 30.0-30 .9, adult<b r/> GORDON PATHAK 02/13 [facility] [place] [facility] OFFICE O/P EST MOD 30 MIN 65561-5.68 [id number] Diagnos is: ICD-10- CM G47.33 Obstruc tive sleep apnea (adult) (pediat amparo)
YAAKOVARELIS 02/25 [facility] [place] [place] [facility] Outpatient Encounter 02298-9.63 [id number] Diagnos is: ICD-10- CM G47.33 Obstruc tive sleep apnea (adult) (pediat amparo)
YAAKOV,ARELIS 02/25 [place] [facility] [place] [facility] LD TH V IVNTJ GRP EA ADDL 55343-0.63 [id number] Diagnos is: ICD-10- CM Z68.30 Body mass index [BMI] 30.0-30 .9, adult<b r/> GORDON PATHAK 02/27 [facility] [place] GROUP BEHAVE COUNS 2-10 72953-0.63 [id number] Diagnos is: ICD-10- CM E66.811 Obesity , class 1
EVAN KRAMER P 03/06 [facility] [place] GROUP BEHAVE COUNS 2-10 44279-2.63 [id number] Diagnos is: ICD-10- CM E66.811 Obesity , class 1
NIAEVAN CH P 03/13 [facility] [place] [facility]TH BHV IVNTJ GRP EA ADDL 02708-4.63 1BY. Diagnos is: ICD-10- CM Z68.30 Body mass index [BMI] 30.0-30 .9, adult<b r/> GORDON PATHAK 04/03 [facility] [place] [facility] BHV IVNTJ GRP EA ADDL [id number] [id number] Diagnos is: ICD-10- CM Z68.30 Body mass index [BMI] 30.0-30 .9, adult<b r/> GORDON PATHAK 04/10 [facility] [place] Social History Combined list of available smoking, tobacco, and other social history from Department of Defense and Veterans Affairs facilities. Social History Type Response Date Comment [facility] e Tobacco smoking status [facility] VA-TOBACCO FORMER USER 01[facility]21/2024 [facility] [place] History of tobacco use VA-TOBACCO QUIT 15 YRS OR MORE 01/21/2024 [facility] History of tobacco use VA-TOBACCO QUIT 15 YRS OR MORE 01/26/2023 [facility] History of tobacco use VA-TOBACCO QUIT 15 YRS OR MORE 01/27/2022 [facility] History of tobacco use VA-TOBACCO FORMER USER 09/17/2020 [facility] History of tobacco use VA-TOBACCO NEVER USED 06/04/2019 [facility] [place] of [place] use [place] 03/14/2018 [facility] History of tobacco use QUIT TOBACCO USE > 7 YEARS AGO 04/04/2017 [facility] History of tobacco use QUIT TOBACCO USE > 7 YEARS AGO 04/05/2016 quit in 1985 [facility] Plan of Care List of future care activities from Department of [facility] facilities. Additional future care activities may be listed in the Assessment and Plan section. Date/Time Care Activity Care Activity Detail Facili ty 07/21/2024 AMBULATORY - MEDICINE AMBULATORY - [facility]ICI [facility] 10/07/2024 AMBULATORY - MEDICINE AMBULATORY - [facility]IC[facility]
== END 2024-04-22 09:22 | disposition home or self-care (01) ==
PROVIDERS: PCP Internal Medicine; Visit Provider Physician Assistant
DX: M17.12 Unilateral primary osteoarthritis, left knee (principal)
CPT/HCPCS: 99213

== ENCOUNTER → 2024-04-22 08:43 | Outpatient (BNVA) | payer MEDICARE, OTHER, SELFPAY | PROVIDERS: PCP Internal Medicine; Visit Provider Physician Assistant | DX: M17.12 Unilateral primary osteoarthritis, left knee (principal) | CPT/HCPCS: 99212 ==

== ENCOUNTER 2024-05-02 09:33 | Outpatient (RCR) | payer MEDICARE, OTHER, SELFPAY ==
--- NOTE | 2024-05-02 13:54 | MHC.PT.EP ---
[facility] [place] Office [place] Office [place] Office [address] [phone] F: [phone] F: [phone] F: [phone] F: [phone] Physical Therapy Plan of Care Date of Evaluation: 05/02/24 Date of Surgery: Diagnosis: L knee OA Assessment: Patient is a 83 year old R handed male who presents with s/s consistent with OA L knee, L knee pain. He is retired but enjoys staying active during the day walking 5000 steps. Patient past medical history includes shoulder and back pain. Current impairments include pain, balance, ROM, strength, activity tolerance and functional mobility. Functional limitations include decreased ability to walk, stand, sleep, negotiate stairs and transfer. Patient is motivated with good rehab potential. Skilled PT will address impairments and functional limitations in order to achieve goals. 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 Manual therapy to restore motion and function. Therapeutic exercise to improve strength and flexibility. Neuromuscular re-education for posture and balance. Therapeutic activities to return to functional activities of daily living. Electronically signed by: Dimitris Laguna, PT Please sign and return to therapist. Thank you for your referral.
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
== END 2024-06-13 07:24 | disposition home or self-care (01) ==
LOC: HO.PTCHIC 09:33
PROVIDERS: PCP Internal Medicine; Visit Provider Internal Medicine
DX: M17.12 Unilateral primary osteoarthritis, left knee (principal)
CPT/HCPCS: 97110; 97162

== ENCOUNTER → 2024-05-02 12:54 | Outpatient (BNVA) | payer MEDICARE, OTHER, SELFPAY | PROVIDERS: PCP Internal Medicine; Visit Provider Nurse Practitioner Family | DX: I10 Essential (primary) hypertension (principal); E78.5 Hyperlipidemia, unspecified; I44.7 Left bundle-branch block, unspecified; I25.10 Atherosclerotic heart disease of native coronary artery without angina pectoris; R53.83 Other fatigue; I71.43 Infrarenal abdominal aortic aneurysm, without rupture; Z99.89 Dependence on other enabling machines and devices | CPT/HCPCS: 93005; 99212 ==

== ENCOUNTER → 2024-05-02 12:54 | Outpatient (AMB) | payer MEDICARE, OTHER, SELFPAY | END | disposition home or self-care (01) | PROVIDERS: PCP Internal Medicine; Visit Provider Nurse Practitioner Family | CPT/HCPCS: 93010; 99214; G2211 ==

== ENCOUNTER 2024-05-16 14:39 | Outpatient (AMB) | payer OTHER, MEDICARE, SELFPAY ==
[2024-05-16 14:52] VITALS: BP 134/70; PULSE 76; O2SAT 97; BMI 30.7
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
== END 2024-05-16 15:24 | disposition home or self-care (01) ==
PROVIDERS: PCP Internal Medicine; Visit Provider Internal Medicine
DX: S20.212A Contusion of left front wall of thorax, 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 (principal); V89.2XXA Person injured in unspecified motor-vehicle accident, traffic, 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; M25.561 Pain in right knee; M25.562 Pain in left knee; G89.29 Other chronic pain; G40.802 Other epilepsy, not intractable, without status epilepticus; S60.312A Abrasion of left thumb, 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; S80.02XA Contusion of left knee, 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; S80.01XA Contusion of right knee, 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; R53.83 Other fatigue

== ENCOUNTER → 2024-05-16 14:39 | Outpatient (BNVA) | payer OTHER, MEDICARE, SELFPAY | PROVIDERS: PCP Internal Medicine; Visit Provider Internal Medicine | DX: S20.212A Contusion of left front wall of thorax, 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 (principal); S60.312A Abrasion of left thumb, 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; S80.02XA Contusion of left knee, 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; S80.01XA Contusion of right knee, 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; V89.2XXA Person injured in unspecified motor-vehicle accident, traffic, 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; G89.29 Other chronic pain; M25.561 Pain in right knee; M25.562 Pain in left knee; G40.802 Other epilepsy, not intractable, without status epilepticus; R53.83 Other fatigue; Z79.899 Other long term (current) drug therapy; Y93.9 Activity, unspecified; Y92.9 Unspecified place or not applicable; Y99.9 Unspecified external cause status | CPT/HCPCS: 96127 ==

== ENCOUNTER 2024-05-27 10:49 | Outpatient (AMB) | payer MEDICARE, OTHER, SELFPAY ==
[2024-05-27 10:51] VITALS: BP 132/60; PULSE 70; O2SAT 96; BMI 31.0
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
== END 2024-05-27 11:22 | disposition home or self-care (01) ==
PROVIDERS: PCP Internal Medicine; Visit Provider Internal Medicine
DX: G40.802 Other epilepsy, not intractable, without status epilepticus (principal); V89.2XXA Person injured in unspecified motor-vehicle accident, traffic, 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; M25.561 Pain in right knee; M25.562 Pain in left knee; G89.29 Other chronic pain; S20.212A Contusion of left front wall of thorax, 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; R53.83 Other fatigue

== ENCOUNTER → 2024-05-27 10:49 | Outpatient (BNVA) | payer MEDICARE, OTHER, SELFPAY | PROVIDERS: PCP Internal Medicine; Visit Provider Internal Medicine | DX: G40.802 Other epilepsy, not intractable, without status epilepticus (principal); M25.561 Pain in right knee; M25.562 Pain in left knee; G89.29 Other chronic pain; R53.83 Other fatigue; S20.212D Contusion of left front wall of thorax, subsequent encounter; V89.2XXD Person injured in unspecified motor-vehicle accident, traffic, subsequent encounter | CPT/HCPCS: 99212 ==

== ENCOUNTER 2024-06-26 14:06 | Outpatient (AMB) | payer MEDICARE, OTHER, SELFPAY ==
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
== END 2024-06-26 14:44 | disposition home or self-care (01) ==
LOC: HO.HOS 14:07
PROVIDERS: PCP Internal Medicine; Visit Provider Physician Assistant
DX: M17.12 Unilateral primary osteoarthritis, left knee (principal)
CPT/HCPCS: 20610; 99213

== ENCOUNTER → 2024-06-26 14:06 | Outpatient (BNVA) | payer MEDICARE, OTHER, SELFPAY | PROVIDERS: PCP Internal Medicine; Visit Provider Physician Assistant | DX: M17.12 Unilateral primary osteoarthritis, left knee (principal) | CPT/HCPCS: 20610; 99212; J1010; J2003 ==

== ENCOUNTER 2024-07-03 13:00 | Outpatient (RCR) | payer MEDICARE, OTHER, SELFPAY ==
--- NOTE | 2024-05-29 09:47 | MHC.PT.EP ---
[facility] [place] Office [place] Office [place] Office [address] [phone] F: [phone] F: [phone] F: [phone] F: [phone] Physical Therapy Plan of Care Date of Evaluation: 05/29/24 Date of Surgery: Diagnosis: bilateral knee pain. Assessment: Patient is an 83 year old R handed male who presents with s/s consistent with bilateral knee pain. He is retired but likes staying active and tracks his step daily to maintain an activity level. Patient past medical history includes seizures, shoulder pain, knee OA, HTN. Current impairments include pain, posture, ROM, flexibility, strength, activity tolerance and functional mobility. Functional limitations include decreased ability to stand, walk, bend, drive, squat, lift, carry, and transfer. Patient is motivated with good rehab potential. Skilled PT will address impairments and functional limitations in order to achieve goals. 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 Manual therapy to restore motion and function. Therapeutic exercise to improve strength and flexibility. Neuromuscular re-education for posture and balance. Therapeutic activities to return to functional activities of daily living. Electronically signed by: Dimitris Laguna, PT Please sign and return to therapist. Thank you for your referral.
--- NOTE | 2024-10-03 07:13 | MHC.PT.DC ---
[facility] [place] Office [place] Office [place] Office [address] Corinna Soria [address] [phone] F: [phone] F: [phone] F: [phone] F: [phone] Physical Therapy Discharge Report Diagnosis: bilateral knee pain. Date of Surgery: Date of Evaluation: 05/29/24 Date of Discharge: Treatments to Date: 10 Cancellations to Date: No Shows to Date: Discharge Status: Discharge Summary: 07/03/24: pt is I with [facility]. AROM 0-132. Strength is 4/5 grossly. His pain fluctuates from 0-4/10. He has progressed his steps but not met his LTG. He is motivated to continue on his own and participate in exercise classes. He is appropriate to d/c to [facility] at this time. 07/01; Pt c/o some pain with step ups. Pt challenged with balance EC. 06/27/24: pt progressing well with skilled PT. less discomfort. increased tolerance. progress shuttle NV. 06/24; Pt challenged with balance exs. Pt performing exs at home. Pt has 2 [place] appts. 06/19/24: pt with similar discomfort but improved functional mobility. progressed with caution. 06/17/24: progressing steps per day. continues with good motivation. some L knee tightness still present. 06/12/24: pt progressing steps/activity. responding well to program. continue to progress as tolerated. 06/06/24: pt progressing well with skilled PT. no adverse reactions. s/s improving. 06/04; Pt agustin exs with no increase in pain. Pt fatigued after hip exs. Patient is an 83 year old R handed male who presents with s/s consistent with bilateral knee pain. He is retired but likes staying active and tracks his step daily to maintain an activity level. Patient past medical history includes seizures, shoulder pain, knee OA, HTN. Current impairments include pain, posture, ROM, flexibility, strength, activity tolerance and functional mobility. Functional limitations include decreased ability to stand, walk, bend, drive, squat, lift, carry, and transfer. Patient is motivated with good rehab potential. Skilled PT will address impairments and functional limitations in order to achieve goals. Electronically signed by: Dimitris Laguna, PT Please sign and return to therapist. Thank you for your referral.
== END 2024-10-03 07:14 | disposition home or self-care (01) ==
LOC: HO.PTCHIC 13:00
PROVIDERS: PCP Internal Medicine; Visit Provider Internal Medicine
DX: M25.561 Pain in right knee (principal); M25.562 Pain in left knee
CPT/HCPCS: 97110; 97162

== ENCOUNTER 2024-07-25 09:05 | Outpatient (AMB) | payer MEDICARE, OTHER, SELFPAY ==
--- NOTE | 2024-07-25 09:21 | MHC.OFFVIS ---
Vital Signs 07/25/24 09:24 Height 5 ft 11 in Weight 219 lb 9.286 oz BMI 30.6 BP 132/62 Blood Pressure Location Lt brachial Position Sitting Pulse 95 Pulse Source Pulse Oximeter Intake Visit Reasons: f/u per [place] s[place]p [facility] [place] Hat Blocking Operator Required: No Accompanied by: Daughter Allergies morphine Allergy (Unknown, Verified 06/26/24 14:32) Unknown ENVIROMENTAL Allergy (Unknown, Uncoded 03/26/24 15:28) POST NASAL DRIP Medication List - Last Reconciled 07/25/24 by Marsha Dominguez NP-C aspirin (Adult Aspirin Regimen) 81 mg PO DAILY bromocriptine 5 mg (2 x 2.5 mg) PO BEDTIME calcium carbonate-vitamin D3 600 mg-5 mcg (200 unit) 1 tab PO BID cetirizine (Allergy Relief (cetirizine)) 10 mg PO DAILY cholecalciferol (vitamin D3) 25 mcg PO DAILY finasteride 5 mg PO DAILY levothyroxine 100 mcg PO QAM losartan 100 mg PO DAILY rosuvastatin 20 mg PO DAILY tamsulosin 0.4 mg PO BEDTIME 90 days HPI HPI f/u per [place] [facility] [place]: Details: Bandar is an 83-year-old male with past medical history of hypertension, hyperlipidemia, abdominal aortic aneurysm, left bundle branch block, nonobstructive CAD, mild sleep apnea now on CPAP, who was admitted to [facility] recently following seizure type events at home. He was noted to have sinus bradycardia and his metoprolol was stopped. Today he presents with his daughter and sister. Daughter explains that his episodes prior to admission included brief loss of consciousness, brief right facial drooping followed by an episode of arm rigidity and shaking. They are still not convinced he is having actual seizures. She believes that the sinus bradycardia may be a contributing factor to this. He has seen Neurology and his EEG was not entirely conclusive. They are not talking about doing a longer term EEG monitoring. He has been experiencing some episodes where he feels like something is wrong and that he will pass out. He finds that if he gets up and moves this symptom will go away. He has done well overall since his hospital discharge with no concerning symptoms. He ambulates with a cane has not had any recent falls. He wears his CPAP mask and continues to have less fatigue. He has no shortness of breath, PND, orthopnea or edema. He continues to walk routinely. Takes his meds as directed. [facility] Medical History Painful arc syndrome of right shoulder Nocturia Lipid disorder Other specified hypothyroidism Prolactinoma Hypertension, essential Surgical History History of biopsy History of surgery Family History Father No problems noted. Mother Colon cancer Brother No problems noted. Brother No problems noted. Sister No problems noted. Social History Housing: House Alcohol intake: never Patient Tobacco Use Status: Former Tobacco user e-Cigarette/Vaping Use: Never Used service: Yes Current occupational status: retired Cognitive needs: No Hearing needs: No Vision needs: No Review of Systems Const Denies chills, Denies fatigue, Denies fever(s), Denies frequent falls, Denies weakness, Denies weight gain and Denies weight loss ENT Reports dizziness Card Denies chest pain, Denies leg edema, Denies lightheadedness, Denies palpitations, Denies dyspnea and Denies dyspnea on exertion Resp Denies cough, Denies dyspnea and Denies dyspnea on exertion GI Denies hematochezia Musc Denies abnormal gait, Denies muscle weakness, Denies numbness, Denies radiating pain into limb and Denies tingling Neuro Denies abnormal gait, Reports dizziness, Denies frequent falls, Denies numbness, Denies tingling and Denies weakness Endo Denies fatigue and Denies palpitations Physical Exam Vital Signs: Last Vital Signs Pulse 95 07/25/24 09:24 BP 132/62 07/25/24 09:24 BMI result Body Mass Index 30.6 Const General: cooperative, healthy appearing, comfortable and no acute distress Orientation/consciousness: patient oriented x3 Neck Neck: Yes normal visual inspection and Yes no JVD Resp Effort & Inspection: normal respiratory effort Auscultation: clear to auscultation bilaterally, no crackles, no rales, no rhonchi and no wheezes Cardio Jugular venous distension: no JVD Rate: regular rate Rhythm: regular rhythm Heart sounds: S1 normal heart sound present, S2 normal heart sound present, no gallops, no murmurs and no rubs Peripheral pulses: Peripheral pulses 2+ throughout Neuro General: patient oriented x3 Extrem General: Yes normal to inspection and No no pedal edema Psych Appearance: grossly normal Mental Status: mental status grossly normal Speech and movement: Normal speech and movement present Assessment & Plan Assessment & Plan (1) Bradycardia: Code(s): R00.1 - Bradycardia, unspecified Category: Medical Plan: Recent [facility] evaluation for seizure type event and noted to have marked sinus bradycardia. His metoprolol was stopped. His heart rate improved during the admission. Pulse rate on exam today is normal at 95. Home pulse rate checks in the last week have shown heart rates ranging 70-90. Unclear if his symptom of presyncope is related to sinus bradycardia. Informed daughter that his episode of arm rigidity and shaking with loss of consciousness is less likely to be cardiac in nature. He is still being evaluated by Neurology. Will check a cardiac event monitor to assess for any significant bradycardia, pauses or arrhythmia. Will keep him off all rate slowing medications at this time. Cardiology follow-up when test results are known. (2) CAD (coronary artery disease): Code(s): I25.10 - Atherosclerotic heart disease of [place] coronary artery without angina pectoris Category: Medical Plan: Cardiac evaluation done for reports of fatigue and activity intolerance. He has cardiac risks of a strong family history of CAD in 3 of his siblings, age, hypertension, hyperlipidemia. His EKG shows left bundle branch block which is chronic. Echocardiogram done 12/28/2022 shows EF 54%, no valve abnormalities, mild increase in the LV wall thickness. Nuclear stress test done 12/29/2022 shows no clear ischemia or infarct, perfusion defects in the septum and inferior wall probably related to known left bundle branch block, normal EF. CTA of the coronary arteries was done on 10/17/2023 showing nonobstructive coronary artery disease with minimal stenosis of the left main, mild stenosis of the proximal LAD and minimal stenosis of the mid LAD, mild scattered atherosclerotic plaque in the descending thoracic aorta. He was then diagnosed with sleep apnea. His fatigue has improved since wearing his CPAP. - continue management for nonobstructive CAD with daily aspirin indefinitely. Continue rosuvastatin with ideal LDL goal less than 70. Continue metoprolol. Signs and symptoms of angina reviewed with him. (3) Activity intolerance related to fatigue: Code(s): R53.83 - Other fatigue Category: Medical Plan: Much improved following the addition of nightly CPAP. (4) LBBB (left bundle branch block): Code(s): I44.7 - Left bundle-branch block, unspecified Category: Medical Plan: Present on EKG. Not new. EKG nondiagnostic for ischemia. (5) AAA (abdominal aortic aneurysm): Code(s): I71.40 - Abdominal aortic aneurysm, without rupture, unspecified Category: Medical Qualifiers: Abdominal aorta location: infrarenal aorta Presence of rupture: without rupture Qualified Code(s): I71.43 - Infrarenal abdominal aortic aneurysm, without rupture Plan: History of abdominal aortic aneurysm. Abdominal ultrasound done 01/25/2023 showed a 4.7 infrarenal abdominal aortic aneurysm. A CTA of the abdomen and pelvis was done on 03/05/2023 showing abdominal aortic aneurysm 4.5 cm. Was evaluated by Dr. Odonnell last October. He is on aspirin and statin. [place] LDL goal less than 70. Labs done 01/16/2024 showed LDL 63. He will continue follow with Dr. Odonnell. Reviewed light physical activity and no heavy lifting. (6) Seizure: Code(s): R56.9 - Unspecified convulsions Category: Medical Plan: As above. Following with neurology. Daughter states seizure disorder not confirmed yet. (7) Hospital discharge follow-up: Code(s): Z09 - Encounter for follow-up examination after completed treatment for conditions other than malignant neoplasm Category: Medical Plan: [facility] discharge and test results reviewed Plan Time spent on chart review, documentation, interview and assessment In discussing the management and assessment plan, I conveyed my concern for possible sinus node dysfunctio, as seen by bradycardia episodes. A one-month cardiac event monitor was recommended to trace extended heart rhythm patterns unsupported by beta-blockers, with the understanding that Metoprolol exacerbated his symptoms. No indication for pacemaker implantation at this time. Consent for the cardiac event monitoring with patient comfort preference was granted, acknowledging risk mitigation using less adhesive-sensitive leads. The necessity of further neurologic investigation will be done by neurology while a cardiac etiology for his symptom is evaluated. Clear communication lines were established should significant cardiac symptoms recur ensuring proactive re-evaluation. Orders: Orders ECG 30 day event monitor Today R00.1 - Bradycardia, unspecified, R56.9 - Unspecified convulsions Patient Instructions: - Use the bus monitor continuously over a month. - Change the monitor pads frequently to avoid skin irritation. - Avoid using Metoprolol or any medications that may slow down the heart rate. - Report any new or recurrent symptoms such as dizziness, fainting, or drooping. - Attend follow-up appointments as scheduled. - Seek immediate help if symptoms worsen suddenly. Coding Level of Care Code Est Pt Level 4 (44405) Complex EM visit Add On G2211 Diagnoses Bradycardia R00.1 CAD (coronary artery disease) I25.10 Activity intolerance related to fatigue R53.83 LBBB (left bundle branch block) I44.7 Infrarenal abdominal aortic aneurysm (AAA) without rupture I71.43 Abdominal aorta location: infrarenal aorta Presence of rupture: without rupture Seizure R56.9 Hospital discharge follow-up Z09 Time Spent (min) 35
[2024-07-25 09:24] VITALS: BP 132/62; PULSE 95; BMI 30.6
--- OUTSIDE RECORDS SUMMARY | 2024-07-25 09:35 | XMS_ITS | Encounter Summary ---
Author Name [facility] [place] Address [address] [place] [id number] Care Team Providers Care Mutuel Cashier Name Role Phone LEN MENDOZA Primary Care [...] PART B Sep 23, 2014 PART B [id number] [phone] [id number] HARMONY MCCALL JR PATIENT MEDICARE (WNR) MEDICARE (M) PART A July 25, 2007 PART A [id number] [phone] HARMONY MCCALL JR PATIENT MEDICARE (WNR) MEDICARE (M) PART B July 25, 2007 PART B [id number] HARMONY MCCALL JR PATIENT MEDICARE (WNR) MEDICARE (M) PART A July 25, 2007 PART A [id number] HARMONY MCCALL JR PATIENT [employer] (OPT/PROF ) [facility] * Jan 24, 2015 [id number] CAROLE MCCALL SPOUSE Selected Encounter This section includes the information on record at [place] for the Encounter. Date/Time Encounter Type Encounter Description Reason Provider Source Feb 26, 2024 08:30 AM OFFICE O/P EST MOD 30 MIN SLEEP MEDICINE ICD-10-CM G47.33 Obstructive sleep apnea (adult) (pediatric) ARELIS NUNO Erin Encounter Template Text not used by [place] Assessments - Encounter Diagnoses This section includes the primary and secondary diagnoses documented for the Encounter. Date/Time Primary/Secondary Diagnosis Diagnosis Name Provider Source Feb 26, 2024 10:25 AM PRIMARY Obstructive sleep apnea (adult) (pediatric) ARELIS NUNO [facility] Plan of Treatment: Future Appointments (+ [...] AM AMBULATORY - NONE [place] Apr 03, 2024 11:00 AM AMBULATORY - NONE [place] Apr 10, 2024 11:00 AM AMBULATORY - NONE [place] Apr 24, 2024 11:00 AM AMBULATORY - NONE [place] Apr 29, 2024 10:00 AM AMBULATORY - NONE [facility] May 01, 2024 11:00 AM AMBULATORY - NONE [place] Jun 24, 2024 10:00 AM AMBULATORY - NONE [facility] Jun 26, 2024 11:00 AM AMBULATORY - NONE [place] Jul 03, 2024 11:00 AM AMBULATORY - NONE [place] Jul 10, 2024 11:00 AM AMBULATORY - NONE [place] Jul 17, 2024 11:00 AM AMBULATORY - NONE [...] UP (VVC) This visit was conducted in [facility] clinic. -Consent for video telehealth visit obtained from /caregiver -Address on file as well as 's current location were confirmed -Phone number ( ) current as posted in [employer] demographics -Pt is located at home -Safety and emergency procedures addressed during visit -Environment surveyed for participants -[facility] conference locked identified with 2 identifiers: [X] [...] Drowsy Driving: No EPWORTH SLEEPINESS SCALE: TOTAL 2/24 Sitting and Reading 0 score Watching Television [...] - 02/24/2024 : 1940 Age: 83 years [place] Compliance Report Compliance Payor [place] [facility] Usage 01/26/2024 - 02/24/2024 Usage days [...] 256 hours AirSense 11 AutoSet Serial number [id number] Mode AutoSet Min Pressure 5 cmH2O Max [...] MD ATTENDING Signed: 02/26/2024 10:25 ARELIS NUNO [facility]
--- OUTSIDE RECORDS SUMMARY | 2024-07-25 09:35 | XMS_ITS | Encounter Summary ---
Author Name [facility] [place] Address [address] [place] [address] Care Team Providers Care Digital Forensic Examiner Name Role Phone LUCAS STRATTON Primary Care [...] PART B Sep 23, 2014 PART B [id number] [id number] [phone] [id number] HARMONY MCCALL JR PATIENT MEDICARE (WNR) MEDICARE (M) PART A July 25, 2007 PART A [id number] HARMONY MCCALL JR PATIENT MEDICARE (WNR) MEDICARE (M) PART B July 25, 2007 PART B [id number] HARMONY MCCALL JR PATIENT MEDICARE (WNR) MEDICARE (M) PART A July 25, 2007 PART A [id number] HARMONY MCCALL JR PATIENT [employer] (OPT/PROF ) [facility] * Jan 24, 2015 [id number] CAROLE MCCALL SPOUSE Selected Encounter This section includes the information on record at [place] for the Encounter. Date/Time Encounter Type Encounter Description Reason Provider Source Jan 21, 2024 11:00 AM OFFICE O/P EST MOD 30 MIN PRIMARY CARE/MEDICINE ICD-10-CM G47.30 Sleep apnea, unspecified ELIAN STRATTON AM IHErin Encounter Template Text not used by [place] Assessments - Encounter Diagnoses This section includes the primary and secondary diagnoses documented for the Encounter. Date/Time Primary/Secondary Diagnosis Diagnosis Name Provider Source Feb 02, 2024 06:03 AM PRIMARY Sleep apnea, unspecified STRATTON,WILL MYRIAM Ferrell [place] [facility] Feb 02, 2024 06:03 AM SECONDARY Encounter for immunization FRANKLINS[facility] SSA H [place] [facility] [place] [facility] Feb 02, 2024 06:03 AM SECONDARY Essential (primary) hypertension STRATTON,WILL MYRIAM J [place] [facility] [place] [facility] Feb 02, 2024 06:03 AM SECONDARY Hypothyroidism, unspecified STRATTON,WILL MYRIAM [facility] Plan of Treatment: Future [...] 22, 2024 11:00 AM AMBULATORY - NONE [place] [facility] [place] [facility] Jan 24, 2024 11:00 AM AMBULATORY - NONE [place] Jan 31, 2024 11:00 AM AMBULATORY - NONE [place] Feb 07, 2024 11:00 AM AMBULATORY - NONE [place] Feb 14, 2024 11:00 AM AMBULATORY - NONE [place] Feb 26, 2024 08:30 AM AMBULATORY - NONE [place] [facility] [place] [facility] Feb 26, 2024 08:30 AM AMBULATORY - MEDICINE [place]N [place] [facility] Feb 28, 2024 11:00 AM [...] 29, 2024 10:00 [facility] May 01, 2024 11:00 AM AMBULATORY - NONE [place] Jun 24, 2024 10:00 AM AMBULATORY - NONE [facility] Jun 26, 2024 11:00 AM AMBULATORY - [...] Source Jan 21, 2024 10:55 AM 136[facility] Jan 21, 2024 10:52 AM 98.1 63 151/78 20 97 0 68 [phone] 32 [facility] Immunizations: All administered on the encounter date This section contains immunizations associated to the Encounter. Immunization Series Date Issued Administered By Site Reaction Lot Number CVX Code Drug Photovoltaic Installation Technician Comment(s) Source INFLUENZA, HIGH-DOSE, TRIVALENT, PF Jan 21, 2024 SHE DAVEY SSA H RIGHT DELTO ID [id number] SANOFI PASTEUR ADMINISTERE D AT [place], [facility] Social History: Smoking Status (Most current) [...] Current Smoking Status Comment Mary cerrato Jan 21, 2024 11:00 AM VA-TOBACCO FORMER USER [place] [facility] [place] [facility] Tobacco Use History This section includes a history of the smoking, or tobacco-related health factors, that were collected on or before the date of the Encounter. The data comes from the [place] facility where the Encounter took place. Date/Time Smoking Status/Tobacco Use Comment Amaya coburn Jan 21, 2024 11:00 AM VA-TOBACCO QUIT 15 YRS OR MORE [place] [facility] [place] [facility] Jan 26, 2023 01:30 PM VA-TOBACCO FORMER USER [place] [facility] [place] [facility] Jan 26, 2023 01:30 PM VA-TOBACCO QUIT 15 YRS OR MORE [place] [facility] [place] [facility] Jan 27, 2022 11:00 AM VA-TOBACCO FORMER USER [place] [facility] [place] [facility] Jan 27, 2022 11:00 AM VA-TOBACCO QUIT 15 YRS OR MORE [place] [facility] [place] [facility] Sep 17, 2020 09:00 AM VA-TOBACCO FORMER USER [place] [facility] [place] [facility] Sep 17, 2020 09:00 AM VA-TOBACCO QUIT 15 YRS OR MORE [place] [facility] [place] [facility] Jun 04, 2019 02:57 PM VA-TOBACCO NEVER USED [place] [facility] [place] [facility] Mar 14, 2018 11:23 AM VA-TOBACCO FORMER USER [place] [facility] [place] [facility] Mar 14, 2018 11:23 AM VA-TOBACCO QUIT 15 YRS OR MORE [place] [facility] [place] [facility] Apr 04, 2017 12:30 PM QUIT TOBACCO USE > 7 YEARS AGO [place] [facility] [place] [facility] Apr 05, 2016 01:02 PM QUIT TOBACCO USE > 7 YEARS AGO quit in 1984 [place] [facility] [place] [facility] Encounter Notes: All associated encounter [...] 83 year old . HPI: Pleasant male here to follow up. [...] 10:52)BMI: 32.3212 lb [96.16 kg] (01/21/2024 10:52) Greer is alert and oriented X3 Cardiovasc: 2plus [...] aortic aneurysm - this is followed by yolis guzmán 3. Benign hypertension - repeat 136/74 4. [...] as: Straight or Heterosexual /es/ Lucas Stratton DNP, CLINICAL GENETICS LABORATORY CHIEF-BC, CNL Primary Care Nurse Practitioner Signed: 01/21/2024 12:34 LUCAS STRATTON [place] [facility] [place] [facility] Jan 21, 2024 10:54 AM PREVENTIVE MEDICINE NURSING NOTE: LOCAL TITLE: CLINICAL REMINDERS/NURSING STANDARD TITLE: PREVENTIVE MEDICINE NURSING NOTE DATE OF NOTE: JAN 21, 2024@10:54 ENTRY DATE: JAN 21, 2024@10:54:34 AUTHOR: ARRON AUGUSTINIGNER: URGENCY: STATUS: COMPLETED CLINICAL REMINDERS/NURSING Has ADDENDA [...] full rights to use it throughout the [place] system. PRIMARY SCREEN RESULT: The Primary Screen is NEGATIVE. The individual answered never to all forms of IPV above (i.e., answered never to all 5 items) The individual accepts education and/or resources: No EDUCATION: Other: not interested at this time /johanny/ [facility] Coal Handling Supervisor BODY MASKER,PRIMARY CARE Signed: 01/21/2024 10:57 01/21/2024 ADDENDUM STATUS: COMPLETED Influenza Immunization: Influenza, High-Dose, Trivalent, Preservative Free (Fluzone-Syringe) Administered: INFLUENZA, HIGH-DOSE, TRIVALENT, PF Date Administered: Jan 21, 2024 11:00 Photovoltaic Installation Technician: SANOFI PASTEUR Lot: [id number] Exp Date: Sep 22, 2024 [facility]: [id number] Admin Route/Site: INTRAMUSCULAR/RIGHT DELTOID Dosage: 0.5mL Vaccine Information Statement(s): INFLUENZA(FLU) VACC(INACTIVATED OR RECOMBINANT)VIS Oct 29, 2020 ([facility]) Order By: Policy Administered By: Terri Davey [...] NURSE Signed: 01/21/2024 11:31 ARRON AUGUSTIN [facility]
--- OUTSIDE RECORDS SUMMARY | 2024-07-25 09:35 | XMS_ITS | Encounter Summary ---
Author Name [facility] [place] Address [address] [place] [id number] Care Team Providers Care Field Map Editor Name Role Phone LEN MENDOZA Primary Care [...] PART B Sep 23, 2014 PART B [id number] PK04 [phone] [id number] HARMONY MCCALL JR PATIENT MEDICARE (WNR) MEDICARE (M) PART A July 25, 2007 PART A [id number] [phone] HARMONY MCCALL JR PATIENT MEDICARE (WNR) MEDICARE (M) PART B July 25, 2007 PART B [id number] [phone] [id number] HARMONY MCCALL JR PATIENT MEDICARE (WNR) MEDICARE (M) PART A July 25, 2007 PART A [id number] [phone] [id number] HARMONY MCCALL JR PATIENT [employer] (OPT/PROF ) [facility] * Jan 24, 2015 [id number] CAROLE MCCALL SPOUSE Selected Encounter This section includes the information on record at [place] for the Encounter. Date/Time Encounter Type Encounter Description Reason Pro vider Source IHE Encounter Template Text not used by [place]
--- OUTSIDE RECORDS SUMMARY | 2024-07-25 09:35 | XMS_ITS | Encounter Summary ---
Author Name [facility] [place] Address [address] [place] [address] Care Team Providers Care Offset Pressman Name Role Phone LEN MENDOZA Primary Care [...] PART B Sep 23, 2014 PART B [id number] HARMONY MCCALL JR PATIENT MEDICARE (WNR) MEDICARE (M) PART A July 25, 2007 PART A [id number] [phone] HARMONY MCCALL JR PATIENT MEDICARE (WNR) MEDICARE (M) PART B July 25, 2007 PART B [id number] HARMONY MCCALL JR PATIENT MEDICARE (WNR) MEDICARE (M) PART A July 25, 2007 PART A [id number] HARMONY MCCALL JR PATIENT [employer] (OPT/PROF ) [facility] * Jan 24, 2015 [id number] CAROLE MCCALL SPOUSE Selected Encounter This section includes the information on record at [place] for the Encounter. Date/Time Encounter Type Encounter Description Reason Provider Source Oct 23, 2023 09:00 AM POS [facility] PRESSURE FILTER SLEEP MEDICINE ICD-10-CM G47.[address], [address] [facility],CURTIS P IHE Encounter Template Text not used by [place] Assessments - Encounter Diagnoses This section includes the primary and secondary diagnoses documented for the Encounter. Date/Time Primary/Secondary Diagnosis Diagnosis Name Provider Source Nov 19, 2023 08:19 AM PRIMARY Sleep apnea, unspecified [facility] P [place] [facility] [place] [facility] Plan of Treatment: Future Appointments [...] AMBULATORY - NONE [facility] [place] [facility] Dec 06, 2023 11:00 AM AMBULATORY - NONE [place] Dec 11, 2023 10:00 AM AMBULATORY - NONE [facility] [place] [facility] Dec 11, 2023 01:00 PM AMBULATORY - MEDICINE [facility] [place] [facility] Dec 13, 2023 11:00 AM AMBULATORY - NONE [place] Dec 20, 2023 11:00 AM AMBULATORY - NONE [place] Dec 25, 2023 10:00 AM AMBULATORY - NONE [facility] [place] [facility] Dec 27, 2023 11:00 AM AMBULATORY - NONE [place] Jan 03, 2024 11:00 AM AMBULATORY - NONE [place] Jan 08, 2024 10:00 AM AMBULATORY - NONE [facility] [place] [facility] Jan 10, 2024 11:00 AM AMBULATORY - NONE [place] Jan 17, 2024 11:00 AM AMBULATORY - NONE [place] Jan 21, 2024 11:00 AM AMBULATORY - MEDICINE [facility] [place] [facility] Jan 22, 2024 11:00 AM AMBULATORY - MEDICINE [facility] Social History: Smoking Status (Most [...] YRS OR MORE [place] [facility] [place] [facility] Tobacco Use History This section includes a history of the smoking, or tobacco-related health factors, that were collected on or before the date of the Encounter. The data comes from the [place] facility where the Encounter took place. Date/Time Smoking Status/Tobacco Use Comment F acility Jan 26, 2023 01:30 PM VA-TOBACCO QUIT 15 YRS OR MORE [facility] [place] [facility] Jan 27, 2022 11:00 AM VA-TOBACCO FORMER USER [facility] [place] [facility] Jan 27, 2022 11:00 AM VA-TOBACCO QUIT 15 YRS OR MORE [facility] [place] [facility] Sep 17, 2020 09:00 AM VA-TOBACCO FORMER USER [facility] [place] [facility] Sep 17, 2020 09:00 AM VA-TOBACCO QUIT 15 YRS OR MORE [facility] [place] [facility] Jun 04, 2019 02:57 PM VA-TOBACCO NEVER USED [facility] [place] [facility] Mar 14, 2018 11:23 AM VA-TOBACCO FORMER USER [facility] [place] [facility] Mar 14, 2018 11:23 AM VA-TOBACCO QUIT 15 YRS OR MORE [facility] Apr 04, 2017 12:30 PM QUIT TOBACCO [...] CURTIS PUCKETT EXP COSIGNER: URGENCY: STATUS: COMPLETED [place] with diagnosis of sleep apnea was seen in clinic for Auto-CPAP set up. Home sleep test on 03/06/2023 with AHI 12.3. As recommended Vet was issued a [employer]Med Airsense 11 set to APAP @ 5-20 cmH2O, with tub, tubing and filters. [place] instructed on proper operation and cleaning of all equipment and given manuals. Vet was fit with F20 largeand instructed in application and adjustments. [place] demonstrated understanding of all instructions. We discussed ways to acclimate to therapy and the dangers of untreated sleep apnea. [place] will have 1&4 week data checks in AirView. Self-alert placed for yearly renewal. Written instructions for care and cleaning and contact information for department was given. was encouraged to call with any issues. Vet will be added to Airview. RTC placed for follow up. /[email or web address]/ CURTIS PUCKETT RESPIRATORY THERAPIST Signed: 10/23/2023 10:15 Receipt Acknowledged By: 10/24/2023 11:07 /[email or web address]/ CURTIS COLLINS [facility]
--- OUTSIDE RECORDS SUMMARY | 2024-07-25 09:35 | XMS_ITS ---
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 Cecily ONEILL SHANICE 08/21 [facility] WEIGHT MGMT CLASS 51695-2.63 [id number] Diagnos is: ICD-10- CM Z68.29 Body mass index [BMI] 29.0-29 .9, adult GORDON PATHAK 08/22 [place] [facility] EXERCISE CLASS [id number] [id number] Diagnos is: ICD-10- CM 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 LARISA COATES 08/23 [facility] [place] EXERCISE CLASS [id number] [id number] Diagnos is: ICD-10- CM Z72.3 Lack of physica l exercis Cecily Lange SHANICE 08/26 [facility] [place] [facility] WEIGHT MGMT CLASS 08431-0.63 [id number] Diagnos is: ICD-10- CM Z68.29 Body mass index [BMI] 29.0-29 .9, adult GORDON PATHAK 08/29 [place] [facility] EXERCISE CLASS [id number] [id number] Diagnos is: ICD-10- CM 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 CRISTAL LAZCANO 08/30 [facility] EXERCISE CLASS [id number] [id number] Diagnos is: ICD-10- CM Z72.3 Lack of physica l exercis Cecily Lange 09/04 [facility] [place] [facility] [place] WEIGHT MGMT CLASS 34972-0.63 [id number] Diagnos is: ICD-10- CM E66.09 Other obesity due to excess calorie s GORDON PATHAK 09/05 [facility] EX[facility]ISE CLASS [id number] [id number] Diagnos is: ICD-10- CM Z72.3 Lack of physica l exercis CRISTAL Meyers 09/06 [facility] [place] [facility] LD GROUP BEHAVE COUNS 2-10 52963-6.63 [id number] Diagnos is: ICD-10- CM E66.09 Other obesity due to excess calorie s EVAN KRAMER 09/12 [facility] [place] [facility] EXERCISE CLASS 45765-4.63 [id number] Diagnos is: ICD-10- CM Z72.3 Lack of physica l exercis LARISA Hadley 09/13 [facility] [place] [facility] LD WEIGHT MGMT CLASS 17031-1.63 [id number] Diagnos is: ICD-10- CM Z68.30 Body mass index [BMI] 30.0-30 .9, adult GORDON PATHAK 09/19 [facility] [place] [facility] EXERCISE CLASS [id number] [id number] Diagnos is: ICD-10- CM Z72.3 Lack of physica l exercis LARISA Hadley 09/20 [facility] EXERCISE CLASS [id number] [id number] Diagnos is: ICD-10- CM Z72.3 Lack of physica l exercis RCISTAL Meyers 09/23 [facility] [place] 1 [address]-0.63 [id number] Diagnos is: ICD-10- CM L71.8 Other rosacea EVAN GEE 09/24 [facility] FIT SPECTACLES MONOFOCAL 85282-5.63 [id number] Diagnos is: ICD-10- CM Z46.0 Encount er for fit/adj st of spectac les and contact lenses EVAN GEE 09/24 [facility] EXERCISE CLASS 98232-2.63 [id number] Diagnos is: ICD-10- CM Z72.3 Lack of physica l exercCecily Gooden 09/25 [facility] EXERCISE CLASS [id number] [id number] Diagnos is: ICD-10- CM Z72.3 Lack of physica l exercCRISTAL Cruz 09/30 [facility] [place] [facility] [place] GROUP BEHAVE COUNS 2-10 29288-8.63 [id number] Diagnos is: ICD-10- CM E66.09 Other obesity due to excess calorie EVAN Qureshi P 10/03 [place] WEIGHT MGMT CLASS 77177-1.63 [id number] Diagnos is: ICD-10- CM Z68.29 Body mass index [BMI] 29.0-29 .9, adult GORDON PATHAK 10/10 [place] [facility] EXERCISE CLASS 87676-6.63 [id number] Diagnos is: ICD-10- CM Z72.3 Lack of physica l exercCRISTAL Cruz 10/14 [facility] EXERCISE CLASS 66150-7.63 [id number] Diagnos is: ICD-10- CM 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 Diagnos is: ICD-10- CM Z72.3 Lack of physica l exercis CRISTAL Meyers 10/25 [facility] Outpatient Encounter [id number] [id number] 10/25 [facility] Outpatient Encounter [id number] [id number] 10/25 [facility] EXERCISE CLASS [id number] [id number] Diagnos is: ICD-10- CM Z72.3 Lack of physica l exercis CRISTAL Meyers 10/28 [facility] COLLJ & INTERPJ DATA EA 30 D 83277-3.63 [id number] Diagnos is: ICD-10- CM G47.30 Sleep apnea, unspeci fied ST AMKATHARINA HERNANDEZ E P 10/29 [facility] EXERCISE CLASS [id number] [id number] Diagnos is: ICD-10- CM Z72.3 Lack of physica l exercis Cecily Lange 10/30 [facility] [place] [facility] [place] [facility] BHV IVNTJ GRP EA ADDL [id number] [id number] Diagnos is: ICD-10- CM Z68.30 Body mass index [BMI] 30.0-30 .9, adult GORDON PATHAK 10/31 [place] [facility] EXERCISE CLASS [id number] [id number] Diagnos is: ICD-10- CM 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.3 Lack of physica l exercis e CRISTAL LAZCANO LLY M 11/01 [facility] EXERCISE CLASS [id number] [id number] Diagnos is: ICD-10- CM Z72.3 Lack of physica l exercis e CRISTAL LAZCANO LLY M 11/04 [facility] EXERCISE CLASS [id number] [id number] Diagnos is: ICD-10- CM 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 Diagnos is: ICD-10- CM Z72.3 Lack of physica l exercis Cecily Lange SHANICE 11/20 [facility] [place] [place] [facility] [place] GROUP BEHAVE COUNS 2-10 54515-8.63 [id number] Diagnos is: ICD-10- CM E66.09 Other obesity due to excess calorie s EVAN KRAMER 11/21 [place] [facility] EXERCISE CLASS [id number] [id number] Diagnos is: ICD-10- CM Z72.3 Lack of physica l exercis Cecily Lange SHANICE 11/27 [facility] [place] [place] [facility] [place] [facility] BHV IVNTJ GRP EA ADDL [id number] [id number] Diagnos is: ICD-10- CM Z68.30 Body mass index [BMI] 30.0-30 .9, adult GORDON PATHAK 11/28 [place] [facility] EXERCISE CLASS [id number] [id number] Diagnos is: ICD-10- CM Z72.3 Lack of physica l exercis LARISA Hadley 11/29 [facility] EXERCISE CLASS 34076-4.63 1. 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 Diagnos is: ICD-10- CM Z73.3 Stress, not elsewhe re classif ied JOSE ALBERTO HANLEY RA 12/10 [facility] [place] [place] [facility] HLTH BHV IVNTJ GRP EA ADDL [id number] [id number] Diagnos is: ICD-10- CM Z68.30 Body mass index [BMI] 30.0-30 .9, adult GORDON PATHAK 12/12 [place] [facility] EXERCISE CLASS [id number] [id number] Diagnos is: ICD-10- CM Z72.3 Lack of physica l exercis e CRISTAL LAZCANOCourtney M 12/16 [facility] [place] [place] [facility] LD TH V IVNTJ GRP EA ADDL [id number] [id number] Diagnos is: ICD-10- CM Z68.30 Body mass index [BMI] 30.0-30 .9, adult GORDON PATHAK 12/19 [place] [facility] PT EDUCATION NOC GROUP [id number] [id number] Diagnos is: ICD-10- CM 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 38 Diagnos is: ICD-10- CM E66.09 Other obesity due to excess calorie bebeto JEFFERSONNIAEVAN MORENO P 01/09 [place] HLTH V IVNTJ GRP EA ADDL 51188-2.63 [id number] Diagnos is: ICD-10- CM Z68.30 Body mass index [BMI] 30.0-30 .9, adult GORDON PATHAK 01/16 [place] [facility] OFFICE O/P EST MOD 30 MIN [id number] [id number] Diagnos is: ICD-10- CM G47.30 Sleep apnea, unspeci shital Guzman MENDOZA 01/20 [facility] [place] [place] [facility] OFFICE O/P EST MOD 30 MIN [id number] [id number] Diagnos is: ICD-10- CM G47.33 Obstruc tive sleep apnea (adult) ([facility] [place]) TREVOR NUNOE 01/21 [place] [facility] Outpatient Encounter [id number] [id number] Diagnos is: ICD-10- CM G47.33 Obstruc tive sleep apnea (adult) ([facility] [place]) NUNOARELIS 01/21 [place] [facility] [place] [facility] [place] GROUP BEHAVE COUNS 2-10 85892-1.63 1BY. 47 Diagnos is: ICD-10- CM E66.811 Obesity , class 1 NIA,DC CHAEL P 01/23 [place] GROUP BEHAVE COUNS 2-10 23121-0.63 [id number] Diagnos is: ICD-10- CM E66.811 Obesity , class 1 NIA,DC CHAEL P 01/30 [place] TH BHV IVNTJ GRP EA ADDL [id number] [id number] Diagnos is: ICD-10- CM Z68.30 Body mass index [BMI] 30.0-30 .9, adult GORDON PATHAK 02/06 [place] [facility] BHV IVNTJ GRP EA ADDL [id number] [id number] Diagnos is: ICD-10- CM Z68.30 Body mass index [BMI] 30.0-30 .9, adult GORDON PATHAK 02/13 [place] [facility] OFFICE O/P EST MOD 30 MIN 57277-6.68 [id number] Diagnos is: ICD-10- CM G47.33 Obstruc tive sleep apnea (adult) ([facility]) ARELIS NUNO 02/25 [place] [facility] Outpatient Encounter [id number] 1. Diagnos is: ICD-10- CM G47.33 Obstruc tive sleep apnea (adult) ([facility]) TREVOR NUNOE 02/25 [facility] [place] [facility] BHV IVNTJ GRP EA ADDL [id number] [id number] Diagnos is: ICD-10- CM Z68.30 Body mass index [BMI] 30.0-30 .9, adult GORDON PATHAK 02/27 [place] GROUP BEHAVE COUNS 2-10 18473-1.63 [id number].[id number] Diagnos is: ICD-10- CM E66.811 Obesity , class 1 NIAEVAN P 03/06 [place] GROUP BEHAVE COUNS 2-10 05080-4.63 [id number] Diagnos is: ICD-10- CM E66.811 Obesity , class 1 NIAVEAN CH P 03/13 [place] TH V IVNTJ GRP EA ADDL 43952-9.63 1BY. 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 RAKESH Murphy CHENTE 04/29 [facility] [place] [place] [facility] LD GROUP BEHAVE COUNS 2-10 [id number] [id number] Diagnos is: ICD-10- CM E66.811 Obesity , class 1 NIA,EVAN CHAEL P 05/01 [place] [facility] PT EDUCATION NOC GROUP [id number] [id number] Diagnos is: ICD-10- CM 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 RAKESH Murphy CHENTE 06/24 [facility] [place] [place] [facility] LD HLTH BHV IVNTJ GRP EA ADDL [id number] [id number].[id number] Diagnos is: ICD-10- CM E66.811 Obesity , class 1 GORDON PATHAK A 06/26 [facility] BEHAVE COUNS 2-10 45427-4.63 [id number] Diagnos is: ICD-10- CM E66.811 Obesity , class 1 NIAEVAN CH CHAEL P 07/03 [place] [facility] Outpatient Encounter [id number] [id number] 07/03 [facility] EXERCISE CLASS [id number] [id number] Diagnos is: ICD-10- CM Z72.3 Lack of physica l exercis e CRISTAL LAZCANO 07/07 [facility] EXERCISE CLASS [id number] [id number] Diagnos is: ICD-10- CM Z72.3 Lack of physica l exercis e Cecily ONEILL 07/09 [facility] [place] [place] [facility] [place] GROUP BEHAVE COUNS 2-10 52774-0.63 [id number] Diagnos is: ICD-10- CM E66.811 Obesity , class 1 EVAN KRAMER P 07/10 [place] [facility] Outpatient Encounter [id number] [id number] 07/10 [facility] BEHAVE COUNS 2-10 35528-8.63 1BY. 92 Diagnos is: ICD-10- CM E66.811 Obesity , class 1 NIAEVAN CHAEL P 07/17 [place] [facility] Outpatient Encounter [id number] [id number] 07/21 [facility] [place] [place] [facility] Outpatient Encounter [id number] [id number]/22 [facility] [place] [place] [facility] LD HLTH BHV IVNTJ GRP EA ADDL 17627-9.63 [id number].[id number] Diagnos is: ICD-10- CM Z68.30 Body mass index [BMI] 30.0-30 .9, adult GORDON PATHAK 07/24 [facility] IE Social History Combined list of available smoking, tobacco, and other social history from Department of Defense and Veterans Affairs facilities. Social History Type Response Date Comment Sourc e Tobacco smoking status NHIS [facility]BACCO FORMER USER 01/21/2024 [facility] History of tobacco use VA-TOBACCO QUIT 15 YRS OR MORE 01/21/2024 [facility] History of tobacco use VA-TOBACCO FORMER USER 01/26/2023 [facility] History of tobacco use VA-TOBACCO FORMER USER 01/27/2022 [facility] History of tobacco use VA-TOBACCO QUIT 15 YRS OR MORE 09/17/2020 [facility] History of tobacco use CA-TOBACCO FORMER USER 03/14/2018 [facility] History of tobacco use QUIT TOBACCO USE > 7 YEARS AGO 04/04/2017 [facility] History of tobacco use QUIT TOBACCO USE > 7 YEARS AGO 04/05/2016 quit in 1984 [place] [facility] [place] [facility] Plan of Care List of future care activities from Department of Veterans Affairs facilities. Additional future care activities may be listed in the Assessment and Plan section. Date/Time Care Activity Care Activity Detail Facili ty 07/25/2024 AMBULATORY - MEDICINE AMBULATORY - MEDICI [facility] [place] [facility] Continuity of Care Document Created on: July 25, 2024 HARMONY MCCALL JR : 1940 Sex: Male Author Name [facility] Organization [facility] Care Team Providers Care Venereal Disease Investigator Name Role Phone [facility] Unavailable Unavailable Problems Combined list of problems from Department of Defense and Veterans Affairs facilities. It does not include entries that were removed or entered in error. Problem Status Onset Date Problem Type Date of Resolution Comments Source Abdominal aortic aneurysm Active Condition Feb 08, 2018 Entered By: Guzman MENDOZA Comment: FOLLOW UP [facility] 2022 Entered By: Guzman MENDOZA Comment: non va [...] mass index [BMI] 30.0-30.9, adult Active Diagnosis [facility] Diagnosis: ICD-10-CM E66.811 Obesity, class 1 Active Diagnosis [place] Diagnosis: ICD-10-CM Z72.3 Lack of physical exercise Active Diagnosis [facility] Diagnosis: ICD-10-CM Z71.3 Dietary counseling and surveillance Active Diagnosis [facility] Diagnosis: ICD-10-CM G47.33 Obstructive sleep apnea (adult) (pediatric) Active Diagnosis [facility] Diagnosis: ICD-10-CM G47.30 Sleep apnea, unspecified Active Diagnosis [facility] Diagnosis: ICD-10-CM E66.09 Other obesity due to excess calories Active Diagnosis [facility] Diagnosis: ICD-10-CM Z73.3 Stress, not elsewhere classified Active Diagnosis [facility] Diagnosis: ICD-10-CM Z68.29 Body mass index [BMI] 29.0-29.9, adult Active Diagnosis [facility] Diagnosis: ICD-10-CM Z46.0 Encounter for fit/adjst of spectacles and contact lenses Active Diagnosis [facility] Diagnosis: ICD-10-CM L71.8 Other rosacea Active Diagnosis [facility] Diagnosis: ICD-10-CM E66.3 Overweight Active Diagnosis [facility] Diagnosis: ICD-10-CM K21.9 Gastro-esophageal reflux disease without esophagitis Active Diagnosis [facility] Diagnosis: ICD-10-CM Z02.89 Encounter for other administrative examinations Active Diagnosis [facility] Diagnosis: ICD-10-CM M17.9 Osteoarthritis of knee, unspecified Active Diagnosis [facility] Medications Combined list of outpatient medications from Department of Defense and Veterans Affairs facilities.Medications provided include 1) outpatient medications from the last 15 months, and 2) patient-reported medications. Medication Details Route Status Patient Instructions Prescription Expires Prescription Number Last Dispense Date Ordering Provider Order Date Order Qty Source ASPIRIN 81MG TAB,CHEWABL E CHEW ONE TABLET BY MOUTH DAILY [facility] ACTIVE , [facility] [address] [facility] BROMOCRIPTI NE MESYLATE 0.8MG TAB TAKE THREE TABLETS BY MOUTH ONCE DAILY ORAL ACTIVE , [facility] [address] [facility] CALCIUM 200MG (CA CITRATE-950 MG) TAB TAKE THREE TABLETS BY MOUTH DAILY ORAL ACTIVE BRITT, [facility] [address] [facility] CARBOXYMETH YLCELLULOSE NA 0.5% SOLN,OPH INSTILL 1 DROP INTO EACH EYE FOUR TIMES A DAY FOR DRY EYE OPHTHA LMIC ACTIVE 09/25/2024 [id number] Cecily GEE ICHELE 2023 [address] [facility] CETIRIZINE HCL 10MG TAB TAKE ONE TABLET BY MOUTH DAILY ORAL ACTIVE , [facility] [address] [facility] CHOLECALCIF FORTINO 25MCG (1,000UNIT) TAB TAKE ONE TABLET BY MOUTH DAILY ORAL ACTIVE , [facility] [address] [facility] LEVOTHYROXI NE NA 125MCG TAB (SYNTHROID) TAKE ONE TABLET BY MOUTH EVERY MORNING 30 MINUTES BEFORE BREAKFAS T ORAL ACTIVE LEN MENDOZA 2023 [facility] LISINOPRIL 5MG TAB TAKE ONE TABLET BY MOUTH ONCE DAILY TO CONTROL BLOOD PRESSURE ORAL 01/27/2024 [id number] LEN MENDOZA 2022 [address] [facility] POTASSIUM 100MG TAB TAKE ONE TABLET BY MOUTH ONCE DAILY ORAL ACTIVE LEN MENDOZA 2017 [facility] METOPROLOL SUCCINATE 50MG TAB,SA TAKE ONE TABLET BY MOUTH ONCE DAILY ORAL ACTIVE LEN MENDOZA 2022 [facility] OTHER CAP/TAB TAKE 5 MG BY MOUTH DAILY ORAL ACTIVE [place] BRITT 2016 [facility] TAMSULOSIN HCL 0.4MG CAP TAKE 1 CAPSULE BY MOUTH ONCE DAILY ORAL ACTIVE LEN MENDOZA 2019 [facility] IELD Immunizations Combined list of available immunizations from the Department of Defense and [facility] Affairs facilities. Immunization Series Date Given Administered By Site Reaction Lot Number CVX Code Drug Range Rider Status Comments Source INFLUENZA, HIGH-DOSE, TRIVALENT, PF 2023 [facility] RIGHT DELTO ID [id number] 135 complet ed [facility] INFLUENZA, HIGH-DOSE, QUADRIVALENT 2022 [facility] LEFT DELTO ID [id number] 197 complet ed [facility] COVID-19 (MODERNA), MRNA, LNP-S, PF, 100 MCG/0.5ML DOSE OR 50 MCG/0.25ML DOSE 3 2021 207 complet ed MOD; [id number]; 2 [facility] COVID-19 (MODERNA), MRNA, LNP-S, PF, 100 MCG OR 50 MCG DOSE 3 2020 207 complet ed MOD; [id number]; 2 [facility] INFLUENZA VACCINE, QUADRIVALENT, ADJUVANTED 2020 205 complet ed [facility] COVID-19 (MODERNA), MRNA, LNP-S, PF, 100 MCG/0.5 ML DOSE 2 2020 207 complet ed MOD; [id number]; 1 [facility] COVID-19 (MODERNA), MRNA, LNP-S, PF, 100 MCG/0.5 ML DOSE 1 2020 207 complet ed MOD; [id number]; 1 [facility] [...] [facility] PNEUMOCOCCAL CONJUGATE PCV 13 2017 133 complet [...] Jul 12, 2023 10:12 AM Reporting Lab: [facility] [place] [facility] [address] [facility] [address] Performing Lab: [facility] [place] [facility] [address] [facility] [address] [facility] [facility] CBC LEUKOCYTES [#/VOLUME] IN BLOOD BY AUTOMATED COUNT 7.33 10*3/u L 4.50 - 11.00 04/25 /2024 Specimen Type: BLOOD No comment entered. Ordering Provider: ORACIO MENDOZA Report Released Date/Time: Jul 12, 2023 10:12 AM Reporting Lab: [facility] [address] [facility] [address] Performing Lab: [facility] [address] [facility] [address] [facility] [place] [facility] CBC ERYTHROCYTE S [#/VOLUME] IN BLOOD BY AUTOMATED COUNT 4.94 10*6/u L 4.23 - 5.66 07/18 Specimen Type: BLOOD No comment entered. Ordering Provider: ORACIO MENDOZA Report Released Date/Time: Jul 12, 2023 10:12 AM Reporting Lab: [facility] [place] [address] [address] Performing Lab: [facility] [place] [address] [address] [facility] [place] [facility] CBC HEMOGLOBIN [MASS/VOLUM E] IN BLOOD 15.1 g/dL 12.8 - 17 07/18 Specimen Type: BLOOD No comment entered. Ordering Provider: ORACIO MENDOZA Report Released Date/Time: Jul 12, 2023 10:12 AM Reporting Lab: [facility] [place] [address] [address] Performing Lab: [facility] [place] [address] [address] [facility] [place] [facility] CBC HEMATOCRIT [VOLUME FRACTION] OF BLOOD BY AUTOMATED COUNT 46.2 39.2 - 50.4 07/18 Specimen Type: BLOOD No comment entered. Ordering Provider: ORACIO MENDOZA Report Released Date/Time: Jul 12, 2023 10:12 AM Reporting Lab: [facility] [address] [place] [address] Performing Lab: [facility] [address] [place] [address] [facility] [place] [facility] CBC MCV [ENTITIC VOLUME] BY AUTOMATED COUNT 93.5 fL 82 - 99 07/18 Specimen Type: BLOOD No comment entered. Ordering Provider: ORACIO MENDOZA Report Released Date/Time: Jul 12, 2023 10:12 AM Reporting Lab: [facility] [place] [facility] [address] [facility] [address] Performing Lab: [facility] [place] [facility] [address] [facility] [address] [facility] [place] [facility] CBC MCHC [MASS/VOLUM E] BY AUTOMATED COUNT 32.7 g/dL 30.8 - 35.1 07/18 Specimen Type: BLOOD No comment entered. Ordering Provider: ORACIO MENDOZA Report Released Date/Time: Jul 12, 2023 10:12 AM Reporting Lab: [facility] [place] [address] [address] Performing Lab: [facility] [place] [address] [address] [facility] [place] [facility] CBC PLATELETS [#/VOLUME] IN BLOOD BY AUTOMATED COUNT 181 10*3/u L 140 - 360 07/18 Specimen Type: BLOOD No comment entered. Ordering Provider: ORACIO MENDOZA Report Released Date/Time: Jul 12, 2023 10:12 AM Reporting Lab: [facility] [place] [address] [address] Performing Lab: [facility] [facility] [address] [place] [address] [facility] [place] CBC ERYTHROCYTE DISTRIBUTIO N WIDTH [RATIO] BY AUTOMATED COUNT 13.2 12.0 - 16.0 07/18 Specimen Type: BLOOD No comment entered. Ordering Provider: ORACIO MENDOZA Report Released Date/Time: Jul 12, 2023 10:12 AM Reporting Lab: [facility] [place] [address] [address] Performing Lab: [facility] [place] [address] [address] [facility] CBC MCH [ENTITIC MASS] BY AUTOMATED COUNT 30.6 pg 26.2 - 32.6 07/18 Specimen Type: BLOOD No comment entered. Ordering Provider: ORACIO MENDOZA Report Released Date/Time: Jul 12, 2023 10:12 AM Reporting Lab: [facility]PITALUSENORTHWELL HEALTH [address] [facility] [address] Performing Lab: [facility] HOSPITALRUNIVERSITY [facility] WOMEN'S HOSPITALTRN [facility] HOSPITALUSETS [facility] [address] [facility] [address] [facility] HOSPITALUSE [facility] LIPID PANEL, NON FASTING CHOLESTEROL [MASS/VOLUM E] IN SERUM OR PLASMA 119 mg/dL 07/18 Specimen Type: SERUM No comment entered. Ordering Provider: ORACIO MENDOZA Report Released Date/Time: Jul 12, 2023 10:12 AM Reporting Lab: [facility] HOSPITALUSE[address] [address] Performing Lab: [facility] HOSPITALRUNIVERS[facility] WOM[facility]'S HOSPITALTRN [facility] HOSPITALUSETS [address] [address] [facility] HOSPITALUSE [facility] LIPID PANEL, NON FASTING TRIGLYCERID E [MASS/VOLUM E] IN SERUM OR PLASMA 48 mg/dL 0 - 150 07/18 Specimen Type: SERUM No comment entered. Ordering Provider: ORACIO MENDOZA Report Released Date/Time: Jul 12, 2023 10:12 AM Reporting Lab: [facility] HOSPITALRST. VINCENT'S BLOUNTN [facility] HOSPITALUSETS [facility] [address] [facility] [address] Performing Lab: [facility] HOSPITALRUNIVERS[facility] WOMEN'S HOSPITALTRN [facility] HOSPITALUSETS [facility] [address] [facility] [address] [facility]ERN [facility] HOSPITALUSE [facility] LIPID PANEL, NON FASTING CHOLESTEROL IN LDL [MASS/VOLUM E] IN SERUM OR PLASMA BY CALCULATION 63 mg/dL 0 - 129 07/18 Specimen Type: SERUM No comment entered. Ordering Provider: ORACIO MENDOZA Report Released Date/Time: Jul 12, 2023 10:12 AM Reporting Lab: [facility] HOSPITALRST. VINCENT'S BLOUNTN [facility] HOSPITALUSENORTHWELL HEALTH [address] [facility] [address] Performing Lab: [facility] LIVINGST[facility] HOSPITALRL TRN [place] [facility] [address] [facility] [address] [facility]ERN [facility] HOSPITALUSE [facility] LIPID PANEL, NON FASTING CHOLESTEROL .TOTAL/CHOL ESTEROL IN HDL [MASS RATIO] IN SERUM OR PLASMA 2.6 07/18 Specimen Type: SERUM No comment entered. Ordering Provider: ORACIO MENDOZA Report Released Date/Time: Jul 12, 2023 10:12 AM Reporting Lab: [facility] HOSPITALRUNIVERSITY [facility] WOMEN'S HOSPITALTRN [facility] HOSPITALUSENORTHWELL HEALTH [address] [facility] [address] Performing Lab: [facility] HOSPITALRST. VINCENT'S BLOUNTN [facility] HOSPITALUSENORTHWELL HEALTH [address] [facility] [address] [facility] LIPID PANEL, NON FASTING CHOLESTEROL IN HDL [MASS/VOLUM E] IN SERUM OR PLASMA 46 mg/dL 40 - 60 07/18 Specimen Type: SERUM No comment entered. Ordering Provider: ORACIO MENDOZA Report Released Date/Time: Jul 12, 2023 10:12 AM Reporting Lab: [facility] HOSPITALRUNIVERSITY [facility] WOMEN'S HOSPITALTRN [facility] HOSPITALUSENORTHWELL HEALTH [address] [facility] [address] Performing Lab: [facility] HOSPITALRUNIVERSITY [facility] WOM[facility]'S HOSPITALTRN [facility] HOSPITALUSENORTHWELL HEALTH [address] [facility] [address] [facility] BASIC METABOLIC PANEL (non-fast ing) UREA NITROGEN [MASS/VOLUM E] IN SERUM OR PLASMA 19 mg/dL 7 - 25 07/18 Specimen Type: SERUM No comment entered. Ordering Provider: ORACIO MENDOZA Report Released Date/Time: Jul 12, 2023 10:12 AM Reporting Lab: [facility] HOSPITALRUNIVERSITY [facility] WOMEN'S HOSPITALTRN [facility] HOSPITALUSENORTHWELL HEALTH [address] [facility] [address] Performing Lab: [facility] HOSPITALRUNIVERSITY [facility] WOM[facility]'S HOSPITALTRN [facility] HOSPITALUSENORTHWELL HEALTH [address] [facility] [address] [facility] BASIC METABOLIC PANEL (non-fast ing) GLUCOSE [MASS/VOLUM E] IN SERUM OR PLASMA 95 mg/dL 65 - 100 07/18 Specimen Type: SERUM No comment entered. Ordering Provider: ORACIO MENDOZA Report Released Date/Time: Jul 12, 2023 10:12 AM Reporting Lab: [facility] [place] [facility] [address] [facility] [address] Performing Lab: [facility] [place] [facility] [address] [facility] [address] [facility] [place] [facility] BASIC METABOLIC PANEL (non-fast ing) SODIUM [MOLES/VOLU ME] IN SERUM OR PLASMA 142 mmol/L 135 - 145 07/18 Specimen Type: SERUM No comment entered. Ordering Provider: ORACIO MENDOZA Report Released Date/Time: Jul 12, 2023 10:12 AM Reporting Lab: [facility] [place] [facility] [address] [facility] [address] Performing Lab: [facility] [place] [facility] [address] [facility] [address] [facility] [place] [facility] BASIC METABOLIC PANEL (non-fast ing) POTASSIUM [MOLES/VOLU ME] IN SERUM OR PLASMA 4.7 mmol/L 3.5 - 5.0 07/18 Specimen Type: SERUM No comment entered. Ordering Provider: ORACIO MENDOZA Report Released Date/Time: Jul 12, 2023 10:12 AM Reporting Lab: [facility] [place] [facility] [address] [facility] [address] Performing Lab: [facility] [place] [facility] [address] [facility] [address] [facility] [place] [facility] BASIC METABOLIC PANEL (non-fast ing) CHLORIDE [MOLES/VOLU ME] IN SERUM OR PLASMA 107 mmol/L 100 - 110 07/18 Specimen Type: SERUM No comment entered. Ordering Provider: ORACIO MENDOZA Report Released Date/Time: Jul 12, 2023 10:12 AM Reporting Lab: [facility] [place] [facility] [address] [facility] [address] Performing Lab: [facility] [place] [facility] [address] [facility] [address] [facility] [place] [facility] BASIC METABOLIC PANEL (non-fast ing) CARBON DIOXIDE, TOTAL [MOLES/VOLU ME] IN SERUM OR PLASMA 28 meq/L 20 - 30 07/18 Specimen Type: SERUM No comment entered. Ordering Provider: ORACIO MENDOZA Report Released Date/Time: Jul 12, 2023 10:12 AM Reporting Lab: [facility] HOSPITALRST. VINCENT'S BLOUNTN [address] [address] Performing Lab: [facility] HOSPITALRST. VINCENT'S BLOUNTN [address] [address] [facility]ERN [facility] HOSPITALUSE [facility] BASIC METABOLIC PANEL (non-fast ing) CREATININE [MASS/VOLUM E] IN SERUM OR PLASMA 0.90 mg/dL 0.50 - 1.40 07/18 Specimen Type: SERUM No comment entered. Ordering Provider: ORACIO MENDOZA Report Released Date/Time: Jul 12, 2023 10:12 AM Reporting Lab: [facility] [address] [address] Performing Lab: [facility] HOSPITALRST. VINCENT'S BLOUNTN [facility] HOSPITALUSE[address] [address] [facility] BASIC METABOLIC PANEL (non-fast ing) GLOMERULAR FILTRATION RATE/1.73 SQ M.PREDICTED [VOLUME RATE/AREA] IN SERUM, PLASMA OR BLOOD BY CREATININE- BASED FORMULA (CKD-EPI 2020) 86 mL/min 60 07/18 Specimen Type: SERUM No comment entered. Ordering Provider: ORACIO MENDOZA Report Released Date/Time: Jul 12, 2023 10:12 AM Reporting Lab: [facility] HOSPITALRUNIVERSITY [facility] WOM[facility]'S HOSPITALTRN [facility] HOSPITALUSE[address] [address] Performing Lab: [facility] HOSPITALRST. VINCENT'S BLOUNTN [facility] HOSPITALUSE[address] [address] [facility]ERN [facility]ITALUSE [facility] LIVER FUNCTION PROTEIN [MASS/VOLUM E] IN SERUM OR PLASMA 6.7 g/dL 6.0 - 8.3 07/18 Specimen Type: SERUM No comment entered. Ordering Provider: ORACIO MENDOZA Report Released Date/Time: Jul 12, 2023 10:12 AM Reporting Lab: [facility]IVINGST[facility] HOSPITALRL WSTRN [place] [facility] [address] [facility] [address] Performing Lab: [facility] [place] [facility] [address] [facility] [address] [facility] [place] [facility] LIVER FUNCTION ALBUMIN [MASS/VOLUM E] IN SERUM OR PLASMA 3.8 g/dL 3.5 - 5.0 07/18 Specimen Type: SERUM No comment entered. Ordering Provider: ORACIO MENDOZA Report Released Date/Time: Jul 12, 2023 10:12 AM Reporting Lab: [facility] [place] [facility] [address] [facility] [address] Performing Lab: [facility] [place] [facility] [address] [facility] [address] [facility] [place] [facility] LIVER FUNCTION ALKALINE PHOSPHATASE [ENZYMATIC ACTIVITY/VO LUME] IN SERUM OR PLASMA 55 U/L 40 - 150 07/18 Specimen Type: SERUM No comment entered. Ordering Provider: ORACIO MENDOZA Report Released Date/Time: Jul 12, 2023 10:12 AM Reporting Lab: [facility] [place] [facility] [address] [facility] [address] Performing Lab: [facility] [place] [facility] [address] [facility] [address] [facility] [place] [facility] LIVER FUNCTION ASPARTATE AMINOTRANSF ERASE [ENZYMATIC ACTIVITY/VO LUME] IN SERUM OR PLASMA 26 U/L 5 - 34 07/18 Specimen Type: SERUM No comment entered. Ordering Provider: ORACIO MENDOZA Report Released Date/Time: Jul 12, 2023 10:12 AM Reporting Lab: [facility] [place] [facility] [address] [facility] [address] Performing Lab: [facility] [place] [facility] [address] [facility] [address] [facility] [place] [facility] LIVER FUNCTION ALANINE AMINOTRANSF ERASE [ENZYMATIC ACTIVITY/VO LUME] IN SERUM OR PLASMA 26 U/L 07/18 Specimen Type: SERUM No comment entered. Ordering Provider: ORACIO MENDOZA Report Released Date/Time: Jul 12, 2023 10:12 AM Reporting Lab: [facility] [place] [facility] [address] [facility] [address] Performing Lab: [facility] [place] [facility] [address] [facility] [address] [facility] [place] [facility] LIVER FUNCTION BILIRUBIN.T OTAL [MASS/VOLUM E] IN SERUM OR PLASMA 0.6 mg/dL 0.2 - 1.2 07/18 Specimen Type: SERUM No comment entered. Ordering Provider: ORACIO MENDOZA Report Released Date/Time: Jul 12, 2023 10:12 AM Reporting Lab: [facility] [place] [facility] [address] [facility] [address] Performing Lab: [facility] [place] [facility] [address] [facility] [address] [facility] [place] [facility] THYROID T4 FREE(FT4) THYROXINE (T4) FREE [MASS/VOLUM E] IN SERUM OR PLASMA 1.30 ng/dL 0.6 - 1.6 01/24 Specimen Type: SERUM No comment entered. Ordering Provider: ORACIO MENDOZA Report Released Date/Time: Jan 15, 2023 04:07 PM Reporting Lab: [facility] [place] [facility] [address] [facility] [address] Performing Lab: [facility] [place] [facility] [address] [facility] [address] [facility] [place] [facility] VITAMIN D (25-OH) 25-HYDROXYV ITAMIN D3 [MASS/VOLUM E] IN SERUM OR PLASMA 46 ng/mL 20 - 50 01/24 Specimen Type: SERUM No comment entered. Ordering Provider: ORACIO MENDOZA Report Released Date/Time: Jan 15, 2023 04:07 PM Reporting Lab: [facility] [place] [facility] [address] [facility] [address] Performing Lab: [facility] [place] [facility] [address] [facility] [address] [facility] [place] [facility] TSH THYROTROPIN [UNITS/VOLU ME] IN SERUM OR PLASMA 0.36 u[IU]/ mL 0.35 - 5.00 01/24 Specimen Type: SERUM No comment entered. Ordering Provider: ORACIO MENDOZA Report Released Date/Time: Jan 15, 2023 04:07 PM Reporting Lab: [facility] HOSPITALRUNIVERSITY OF [facility] AND WOMEN'S HOSPITALTRN [address] [address] Performing Lab: [facility]IVINGSTON HOSPITALRL TRN [facility]OSPITALUSE[address] [address] [facility] HOSPITALRST. VINCENT'[facility] BL[facility]N [facility] BASIC METABOLIC PANEL (fasting) UREA NITROGEN [MASS/VOLUM E] IN SERUM OR PLASMA 17 mg/dL 7 - 25 01/24 Specimen Type: SERUM No comment entered. Ordering Provider: ORACIO MENDOZA Report Released Date/Time: Jan 15, 2023 04:07 PM Reporting Lab: [facility] HOSPITALRST. VINCENT'S BLOUNTN [address] [address] Performing Lab: [facility]IVING[facility] HOSPITALRL TRN [facility]OSPITALUSE[address] [address] [facility] BASIC METABOLIC PANEL (fasting) GLUCOSE [MASS/VOLUM E] IN SERUM OR PLASMA 94 mg/dL 65 - 100 01/24 Specimen Type: SERUM No comment entered. Ordering Provider: ORACIO MENDOZA Report Released Date/Time: Jan 15, 2023 04:07 PM Reporting Lab: [facility]IVINGSTON HOSPITALRL TRN [facility]OSPITALUSE[address] [address] Performing Lab: [facility] HOSPITALRL TRN [facility]OSPITALUSE[address] [address] [facility] HOSPITALRST. VINCENT'[facility] BLOUNTN [facility] BASIC METABOLIC PANEL (fasting) SODIUM [MOLES/VOLU ME] IN SERUM OR PLASMA 141 mmol/L 135 - 145 01/24 Specimen Type: SERUM No comment entered. Ordering Provider: ORACIO MENDOZA Report Released Date/Time: Jan 15, 2023 04:07 PM Reporting Lab: [facility] HOSPITALRST. VINCENT'[facility] BLOUNTN [facility]OSPITALUSE[address] [address] Performing Lab: [facility] [place] [facility] [address] [facility] [address] [facility] HOSPITALRST. VINCENT'[facility] BLOUNTN [facility] HOSPITALUSE [facility] BASIC METABOLIC PANEL (fasting) POTASSIUM [MOLES/VOLU ME] IN SERUM OR PLASMA 3.8 mmol/L 3.5 - 5.0 01/24 Specimen Type: SERUM No comment entered. Ordering Provider: ORACIO MENDOZA Report Released Date/Time: Jan 15, 2023 04:07 PM Reporting Lab: [facility]IV[facility] HOSPITALRL TRN [facility] HOSPITALUSETS [facility] [address] [facility] [address] Performing Lab: [facility] HOSPITALRL TRN [facility]OSPITALUSE[address] [address] [facility] BASIC METABOLIC PANEL (fasting) CHLORIDE [MOLES/VOLU ME] IN SERUM OR PLASMA 107 mmol/L 100 - 110 01/24 Specimen Type: SERUM No comment entered. Ordering Provider: ORACIO MENDOZA Report Released Date/Time: Jan 15, 2023 04:07 PM Reporting Lab: [facility] HOSPITALRUNIVERSITY [facility] WOMEN'S HOSPITALTRN [facility]OSPITALUSE[address] [address] Performing Lab: [facility] HOSPITALRL TRN [facility]PITALUSE[address] [address] [facility] HOSPITALRST. [facility]INCENT[facility] BLOUNTN [facility] BASIC METABOLIC PANEL (fasting) CARBON DIOXIDE, TOTAL [MOLES/VOLU ME] IN SERUM OR PLASMA 27 meq/L 20 - 30 01/24 Specimen Type: SERUM No comment entered. Ordering Provider: ORACIO MENDOZA Report Released Date/Time: Jan 15, 2023 04:07 PM Reporting Lab: [facility] HOSPITALRL TRN [facility] HOSPITALUSETS [address] [address] Performing Lab: [facility] HOSPITALRL TRN [facility] HOSPITALUSETS [address] [address] [facility] HOSPITALRST. VINCENT'[facility] BLOUNTN [facility] BASIC METABOLIC PANEL (fasting) CREATININE [MASS/VOLUM E] IN SERUM OR PLASMA 0.90 mg/dL 0.50 - 1.40 01/24 Specimen Type: SERUM No comment entered. Ordering Provider: ORACIO MENDOZA Report Released Date/Time: Jan 15, 2023 04:07 PM Reporting Lab: [facility] [place] [facility] [address] [facility] [address] Performing Lab: [facility] [place] [facility] [address] [facility] [address] [facility] [place] [facility] BASIC METABOLIC PANEL (fasting) GLOMERULAR FILTRATION RATE/1.73 SQ M.PREDICTED [VOLUME RATE/AREA] IN SERUM, PLASMA OR BLOOD BY CREATININE- BASED FORMULA (CKD-EPI 2020) 86 mL/min 60 01/24 Specimen Type: SERUM No comment entered. Ordering Provider: ORACIO MENDOZA Report Released Date/Time: Jan 15, 2023 04:07 PM Reporting Lab: [facility] [place] [facility] [address] [facility] [address] Performing Lab: [facility] [place] [facility] [address] [facility] [address] [facility] CBC LEUKOCYTES [#/VOLUME] IN BLOOD BY AUTOMATED COUNT 6.50 10*3/u L 4.50 - 11.00 01/24 Specimen Type: BLOOD No comment entered. Ordering Provider: ORACIO MENDOZA Report Released Date/Time: Jan 15, 2023 04:07 PM Reporting Lab: [facility] [address] [facility] [address] Performing Lab: [facility] [place] [facility] [address] [facility] [address] [facility] [place] [facility] CBC ERYTHROCYTE S [#/VOLUME] IN BLOOD BY AUTOMATED COUNT 4.73 10*6/u L 4.23 - 5.66 01/24 Specimen Type: BLOOD No comment entered. Ordering Provider: ORACIO MENDOZA Report Released Date/Time: Jan 15, 2023 04:07 PM Reporting Lab: [facility] [address] [facility] [address] Performing Lab: [facility] [address] [facility] [address] [facility] CBC HEMOGLOBIN [MASS/VOLUM E] IN BLOOD 14.7 g/dL 12.8 - 17 01/24 Specimen Type: BLOOD No comment entered. Ordering Provider: ORACIO MENDOZA Report Released Date/Time: Jan 15, 2023 04:07 PM Reporting Lab: [facility] [place] [facility] [address] [facility] [address] Performing Lab: [facility] [place] [facility] [address] [facility] [address] [facility] CBC HEMATOCRIT [VOLUME FRACTION] OF BLOOD BY AUTOMATED COUNT 44.2 39.2 - 50.4 01/24 Specimen Type: BLOOD No comment entered. Ordering Provider: ORACIO MENDOZA Report Released Date/Time: Jan 15, 2023 04:07 PM Reporting Lab[facility] [place] [address] [address] Performing Lab: [facility] [place] [address] [address] [facility] [place] [facility] CBC MCV [ENTITIC VOLUME] BY AUTOMATED COUNT 93.4 fL 82 - 99 01/24 Specimen Type: BLOOD No comment entered. Ordering Provider: ORACIO MENDOZA Report Released Date/Time: Jan 15, 2023 04:07 PM Reporting Lab: [facility] [place] [address] [address] Performing Lab: [facility] [place] [address] [address] [facility] [place] CBC MCHC [MASS/VOLUM E] BY AUTOMATED COUNT 33.3 g/dL 30.8 - 35.1 01/24 Specimen Type: BLOOD No comment entered. Ordering Provider: ORACIO MENDOZA Report Released Date/Time: Jan 15, 2023 04:07 PM Reporting Lab: [facility] [place] [address] [address] Performing Lab: [facility] [place] [address] [address] [facility] [place] [facility] CBC PLATELETS [#/VOLUME] IN BLOOD BY AUTOMATED COUNT 194 10*3/u L 140 - 360 01/24 Specimen Type: BLOOD No comment entered. Ordering Provider: ORACIO MENDOZA Report Released Date/Time: Jan 15, 2023 04:07 PM Reporting Lab: [place] [facility] [place] [facility] [address] [facility] [address] Performing Lab: [facility] [place] [facility] [address] [facility] [address] [place] [facility] [place] [facility] CBC ERYTHROCYTE DISTRIBUTIO N WIDTH [RATIO] BY AUTOMATED COUNT 13.0 12.0 - 16.0 01/24 Specimen Type: BLOOD No comment entered. Ordering Provider: ORACIO MENDOZA Report Released Date/Time: Jan 15, 2023 04:07 PM Reporting [facility] [place] [facility] [address] [facility] [address] Performing Lab: [place] [facility] [place] [facility] [address] [facility] [address] [place] [facility] [place] [facility] CBC MCH [ENTITIC MASS] BY AUTOMATED COUNT 31.1 pg 26.2 - 32.6 01/24 Specimen Type: BLOOD No comment entered. Ordering Provider: ORACIO MENDOZA Report Released Date/Time: Jan 15, 2023 04:07 PM Reporting Lab: [place] [facility] [place] [facility] [address] [facility] [address] Performing Lab: [facility] [place] [facility] [address] [facility] [address] [place] [facility] [place] [facility] Vital Signs Combined list of inpatient and outpatient Vital Signs from Department of Defense and Veterans Affairs, ranging from 12 months to all on record, depending upon the facility. Vital Sign Value Date Comments Source WEIGHT 213.9 07/24/2024 11:00:00 [place] BMI 33 kg/m2 07/24/2024 11:00:00 [place] WEIGHT 214 07/17/2024 11:00:00 [place] BMI 33 kg/m2 07/17/2024 11:00:00 [place] WEIGHT 213.8 07/10/2024 11:26:33 [place] BMI 33 kg/m2 07/10/2024 11:26:33 [place] WEIGHT 214.9 07/03/2024 11:40:05 [place] BMI 33 kg/m2 07/03/2024 11:40:05 [place] WEIGHT 216 06/26/2024 11:42:21 [place] BMI 33 kg/m2 06/26/2024 11:42:21 [place] Encounters Combined list of: 1) Encounters from Department of [facility] facilities going backup to the last 18 months, not all [place] inpatient encounters are included; 2) Encounters from the Department of [facility] facilities going backup to 280 months. Location Location Details Encounter Type Encounter Number Reason For Visit Attending Provider ADM Date DC Date Status [facility] Outpatient Encounter [id number] 01[facility] WEIGHT MGMT CLASS [id number] Diagnos is: ICD-10- CM Z68.29 Body mass index [BMI] 29.0-29 .9, adult GORDON PATHAK 01/25 [place] [facility] EXERCISE CLASS [id number] Diagnos is: ICD-10- CM Z72.3 Lack of physica l CRISTAL Loaiza 01[facility] OFFICE O/P EST MOD 30-39 MIN [id number] Diagnos is: ICD-10- CM M17.9 Osteoar thritis of knee, unspeci Guzman Vásquez 01/26 [facility] [place] [place] [facility] [place] [facility] EXERCISE CLASS [id number] Diagnos is: ICD-10- CM Z72.3 Lack of physica l exercis e CRISTAL LAZCANO 01/29 [facility] [place] [facility] [place] [facility] PT EDUCATION NOC GROUP [id number] Diagnos is: ICD-10- CM 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 RAKESH Murphy 01/30 [place] [facility] [place] [place] [facility] LD GROUP BEHAVE COUNS 2-10 [id number] Diagnos is: ICD-10- CM E66.09 Other obesity due to excess calorie s NIAEVAN Jarvis [place] [facility] [place] [facility] EXERCISE CLASS [id number] Diagnos is: ICD-10- CM Z72.3 Lack of physica l exercis e CRISTAL LAZCANO 02/05 [place] [facility] [place] [place] [facility] [place] [facility] EXERCISE CLASS [id number] Diagnos is: ICD-10- CM Z72.3 Lack of physica l exercis e Cecily ONEILL 02/07 [facility] [place] [place] [facility] WEIGHT MGMT CLASS [id number] Diagnos is: ICD-10- CM Z68.29 Body mass index [BMI] 29.0-29 .9, adult GORDON PATHAK 02/08 [place] [facility] [place] [facility] EXERCISE CLASS [id number] Diagnos is: ICD-10- CM Z72.3 Lack of physica l exercis e CRISTAL LAZCANO 02/09 [facility] [place] [place] [facility] [place] [facility] EXERCISE CLASS [id number] Diagnos is: ICD-10- CM Z72.3 Lack of physica l exercis e CRISTAL LAZCANO 02/12 [facility] [place] [facility] [place] [facility] SELF-MGMT EDUC/TRAIN 2-4 [place] [id number] Diagnos is: ICD-10- CM 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 RAKESH Murphy 02/13 [facility] [place] [facility] [place] [facility] EXERCISE CLASS [id number] Diagnos is: ICD-10- CM Z72.3 Lack of physica l exercis Cecily Lange 02/14 [facility] [place] [facility] [place] [facility] EXERCISE CLASS [id number] Diagnos is: ICD-10- CM Z72.3 Lack of physica l exercis CRISTAL Meyers 02/19 [facility] [place] [place] [facility] EXERCISE CLASS [id number] Diagnos is: ICD-10- CM Z72.3 Lack of physica l exercis Cecily Lange 02/21 [facility] [place] [place] [facility] Outpatient Encounter [id number] Diagnos is: ICD-10- CM Z02.89 Encount er for other adminis trative examina tiZANDER Murray 02/22 [facility] [place] [place] [facility] [place] WEIGHT MGMT CLASS [id number] Diagnos is: ICD-10- CM Z68.29 Body mass index [BMI] 29.0-29 .9, adult GORDON PATHAK A 02/22 [place] [facility] [place] [facility] EXERCISE CLASS [id number] Diagnos is: ICD-10- CM Z72.3 Lack of physica l exercis LARISA Hadley 02/23 [facility] [place] [facility] [place] [facility] EXERCISE CLASS [id number] Diagnos is: ICD-10- CM Z72.3 Lack of physica l exercis e CRISTAL LAZCANO M 02/26 [facility] [place] [facility] [place] [facility] EXERCISE CLASS [id number] Diagnos is: ICD-10- CM Z72.3 Lack of physica l exercis e LARISA COATES 02/27 [facility] [place] [place] [facility] EXERCISE CLASS [id number] Diagnos is: ICD-10- CM Z72.3 Lack of physica l exercis e Cecily ONEILL 02/28 [facility] [place] [place] [facility] [place] WEIGHT MGMT CLASS [id number] Diagnos is: ICD-10- CM Z68.29 Body mass index [BMI] 29.0-29 .9, adult GORDON PATHAK 03/01 [place] [facility] [place] [facility] [id number] 03/05 [facility] [place] [facility] [place] [facility] EXERCISE CLASS [id number] Diagnos is: ICD-10- CM Z72.3 Lack of physica l exercis e CRISTAL LAZCANO M 03/05 [facility] [place] [facility] [place] [facility] Out[facility] Encounter [id number] 03/05 [facility] [place] [facility] [place] [facility] SELF-MGMT EDUC & TRA[place] 1 [place] [id number] Diagnos is: ICD-10- CM G47.33 Obstruc tive sleep apnea (adult) (pediat amparo) MATTEO MARIO AMPARO 03/05 [facility] [place] [place] [facility] EXERCISE CLASS [id number] Diagnos is: ICD-10- CM Z72.3 Lack of physica l exercis e ILIANA UNDERWOOD 03/07 [facility] [place] [place] [facility] LD GROUP BEHAVE COUNS 2-10 [id number] Diagnos is: ICD-10- CM E66.09 Other obesity due to excess calorie s NIAEVAN MORENO P 03/08 [place] [facility] [place] [facility] EXERCISE CLASS [id number] Diagnos is: ICD-10- CM Z72.3 Lack of physica l exercis e LARISA COATES 03/09 [facility] [place] [facility] [place] [facility] EXERCISE CLASS [id number] Diagnos is: ICD-10- CM Z72.3 Lack of physica l exercis e Cecily ONEILL 03/14 [facility] [place] [place] [facility] LD GROUP BEHAVE COUNS 2-10 [id number] Diagnos is: ICD-10- CM E66.3 Overwei elizabethEVAN [place] P 03/15 [place] [facility] [place] [facility] SLEEP STUDY UNATT&RESP EFFT [id number] Diagnos is: ICD-10- CM G47.33 Obstruc tive sleep apnea (adult) ([facility]) MATTEO MARIO AMPARO 03/16 [facility] [place] [facility] [place] [facility] EXERCISE CLASS [id number] Diagnos is: ICD-10- CM Z72.3 Lack of physica l exercis Cecily Lange SHANICE 03/21 [facility] [place] [place] [facility] [place] [facility] EXERCISE CLASS [id number] Diagnos is: ICD-10- CM Z72.3 Lack of physica l exercis LARISA Hadley 03/23 [facility] [place] [facility] [place] [facility] PT EDUCATION NOC GROUP [id number] Diagnos is: ICD-10- CM 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 SLEEP STUDY UNATT&RESP EFFT [id number] Diagnos is: ICD-10- CM G47.33 Obstruc tive sleep apnea (adult) (pediat amparo) VILMA TONEY 03/28 [facility] [place] LD GROUP BEHAVE COUNS 2-10 [id number] Diagnos is: ICD-10- CM E66.3 Overwei ghEVAN [place] P 03/29 [facility] [place] [facility] EXERCISE CLASS [id number] Diagnos is: ICD-10- CM Z72.3 Lack of physica l exercis Cecily Lange SHANICE 04/04 [facility] [place] [place] [facility] LD GROUP BEHAVE COUNS 2-10 [id number] Diagnos is: ICD-10- CM E66.09 Other obesity due to excess calorie s EVAN KRAMER P 04/05 [place] [facility] LD GROUP BEHAVE COUNS 2-10 [id number] Diagnos is: ICD-10- CM E66.3 EVAN Johnson 04/05 [facility] [place] [facility] PT EDUCATION NOC GROUP [id number] Diagnos is: ICD-10- CM 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0-29 .9, adult GORDON PATHAK 04/19 [facility] IE [facility] [place] [facility] EXERCISE CLASS [id number] Diagnos is: ICD-10- CM Z72.3 Lack of physica l exercis ILIANA Choi 04/20 [place] [facility] [place] [facility] [place] [facility] EXERCISE CLASS [id number] Diagnos is: ICD-10- CM Z72.3 Lack of physica l exercCecily Gooden 04/25 [facility] [place] [facility] [place] WEIGHT MGMT CLASS [id number] Diagnos is: ICD-10- CM Z68.29 Body mass index [BMI] 29.0-29 .9, adult GORDON PATHAK 04/26 [facility] [place] [facility] [place] [facility] EXERCISE CLASS [id number] Diagnos is: ICD-10- CM Z72.3 Lack of physica l exercis e SYDNEYCRISTAL LEAL M 04/27 [facility] [place] [facility] [facility] [place] [facility] EXERCISE CLASS [id number] Diagnos is: ICD-10- CM Z72.3 Lack of physica l exercis e NENOCRISTAL M 04/30 [facility] [place] [facility] [facility] [place] [facility] EXERCISE CLASS [id number] Diagnos is: ICD-10- CM Z72.3 Lack of physica l exercis e Cecily ONEILL 05/02 [facility] [place] [facility] WEIGHT MGMT CLASS [id number] Diagnos is: ICD-10- CM Z68.29 Body mass index [BMI] 29.0-29 .9, adult GORDON PATHAK 05/03 [facility] [place] [facility] EXERCISE CLASS [id number] Diagnos is: ICD-10- CM Z72.3 Lack of physica l exercis e LARISA COATES 05/04 [facility] [place] [facility] [place] [facility] EXERCISE CLASS [id number] Diagnos is: ICD-10- CM Z72.3 Lack of physica l exercis e CRISTAL LAZCANO M 05/07 [facility] [place] [facility] [facility] [place] [facility] EXERCISE CLASS [id number] Diagnos is: ICD-10- CM Z72.3 Lack of physica l exercis e Cecily ONEILL 05/09 [facility] [place] [facility] [place] GROUP BEHAVE COUNS 2-10 [id number] Diagnos is: ICD-10- CM E66.09 Other obesity due to excess calorie EVAN Qureshi P 05/10 [place] [facility] [place] [facility] EXERCISE CLASS [id number] Diagnos is: ICD-10- CM Z72.3 Lack of physica l exercis e CRISTAL LAZCANO 05/11 [facility] [place] [facility] [facility] [place] [facility] PT EDUCATION NOC GROUP [id number] Diagnos is: ICD-10- CM 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 RAKESH Murphy 05/15 [facility] [place] [facility] [facility] [place] [facility] EXERCISE CLASS [id number] Diagnos is: ICD-10- CM Z72.3 Lack of physica l exercis Cecily Lange 05/16 [facility] [place] [place] [facility] LD WEIGHT MGMT CLASS [id number] Diagnos is: ICD-10- CM Z68.29 Body mass index [BMI] 29.0-29 .9, adult GORDON PATHAK [place] [facility] [place] [facility] EXERCISE CLASS [id number] Diagnos is: ICD-10- CM Z72.3 Lack of physica l exercis CRISTAL Meyers M 05/21 [place] [facility] [place] [facility] BEHAVE COUNS 2-10 [id number] Diagnos is: ICD-10- CM E66.09 Other obesity due to excess calorie EVAN Qureshi P [place] [facility] [place] [facility] PT EDUCATION NOC GROUP [id number] Diagnos is: ICD-10- CM 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 RAKESH Murphy LIE CHENTE 05/28 [place] [facility] [place] [facility] [place] LD GROUP BEHAVE COUNS 2-10 [id number] [id number] Diagnos is: ICD-10- CM E66.09 Other obesity due to excess calorie EVAN Qureshi P 05/30 [place] GROUP BEHAVE COUNS 2-10 [id number] [id number] Diagnos is: ICD-10- CM E66.09 Other obesity due to excess calorie EVAN Qureshi P 06/06 [place] [facility] [place] [facility] PT EDUCATION NOC GROUP [id number] Diagnos is: ICD-10- CM 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 RAKESH Murphy LIE CHENTE 06/11 [place] [facility] [place] [facility] WEIGHT MGMT CLASS [id number] Diagnos is: ICD-10- CM E66.3 Overwei ght GORDON PATHAK 06/13 [place] WEIGHT MGMT CLASS [id number] Diagnos is: ICD-10- CM Z68.29 Body mass index [BMI] 29.0-29 .9, adult GORDON PATHAK 06/20 [place] [facility] [place] [facility] PT EDUCATION NOC GROUP [id number] Diagnos is: ICD-10- CM 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 RAKESH Murphy LIE CHENTE 06/25 [place] [facility] [place] [facility] [place] WEIGHT MGMT CLASS [id number] [id number] Diagnos is: ICD-10- CM Z68.29 Body mass index [BMI] 29.0-29 .9, adult GORDON PATHAK 06/27 [place] GROUP BEHAVE COUNS 2-10 [id number] [id number] Diagnos is: ICD-10- CM E66.3 OverweEVAN Kendall JOSH P 07/04 [facility] [facility] MG[facility] CLASS [id number] Diagnos is: ICD-10- CM Z68.29 Body mass index [BMI] 29.0-29 .9, adult GORDON PATHAK 07/18 [place] [facility] [place] [facility] OFFICE O/P EST MOD 30 MIN [id number] Diagnos is: ICD-10- CM K21.9 Gastro- esophag eal reflux disease without esophag itGuzman Mcnally 07/22 [place] [facility] [place] [place] [facility] [place] [facility] Outpatient Encounter [id number] 07/23 [place] [facility] [place] [facility] GROUP BEHAVE COUNS 2-10 [id number] Diagnos is: ICD-10- CM E66.3 Overmadayi EVAN Estevez JOSH P 07/25 [place] [facility] [place] [facility] PT EDUCATION NOC GROUP [id number] Diagnos is: ICD-10- CM 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
--- OUTSIDE RECORDS SUMMARY | 2024-07-25 09:35 | XMS_ITS | Encounter Summary ---
Author Name [facility] [place] [facility] [place] Address [address] [place] [address] Care Team Providers Care [place] Filler Name Role Phone LUCAS STRATTON Primary Care [...] Member ID Insurance Provider's Telephone Number Policy Byarra's Name Patient's Relationship to Policy Ybarra MEDICARE (WNR) MEDICARE (M) PART B Sep 23, 2014 PART B [id number] [phone] [id number] HARMONY MCCALL JR PATIENT MEDICARE (WNR) MEDICARE (M) PART A July 25, 2007 PART A [id number] [phone] HARMONY MCCALL JR PATIENT MEDICARE (WNR) MEDICARE (M) PART B July 25, 2007 PART B [id number] [phone] HARMONY MCCALL JR PATIENT MEDICARE (WNR) MEDICARE (M) PART A July 25, 2007 PART A [id number] [phone] [id number] HARMONY MCCALL JR PATIENT [employer] (OPT/PROF ) [facility] * Jan 24, 2015 [id number] CAROLE MCCALL SPOUSE Selected Encounter This section includes the information on record at [place] for the Encounter. Date/Time Encounter Type Encounter Description Reason Provider Source Oct 26, 2023 10:00 AM UNLISTED PHYSCL MED/REHAB PX [facility] ICD-10-CM Z72.3 Lack of physical exercise TERRY COATES [facility] Encounter Template Text not used by [place] Assessments - Encounter Diagnoses This section includes the primary and secondary diagnoses documented for the Encounter. Date/Time Primary/Secondary Diagnosis Diagnosis Name Provider Source Oct 26, 2023 10:44 AM PRIMARY Lack of physical exercise TERRY COATES [place] [facility] [place] [facility] Plan of Treatment: Future Appointments (+ [...] - NONE [facility] [facility] Dec 06, 2023 11:00 AM AMBULATORY - NONE [place] Dec 11, 2023 10:00 AM AMBULATORY - NONE [facility] [place] [facility] Dec 11, 2023 01:00 PM AMBULATORY - MEDICINE [facility] [place] [facility] Dec 13, 2023 11:00 AM AMBULATORY - NONE [place] Dec 20, 2023 11:00 AM AMBULATORY - NONE [place] Dec 25, 2023 10:00 AM AMBULATORY - NONE [facility] [place] [facility] Dec 27, 2023 11:00 AM AMBULATORY - NONE [place] Jan 03, 2024 11:00 AM AMBULATORY - NONE [place] Jan 08, 2024 10:00 AM AMBULATORY - NONE [facility] [place] [facility] Jan 10, 2024 11:00 AM AMBULATORY - NONE [place] Jan 17, 2024 11:00 AM AMBULATORY - NONE [place] Jan 21, 2024 11:00 AM AMBULATORY - MEDICINE [facility] [place] [facility] Jan 22, 2024 11:00 AM AMBULATORY - NONE [facility] [facility] Jan 22, 2024 11:00 AM AMBULATORY - MEDICINE [facility] [place] [facility] Social History: Smoking Status (Most current) [...] PM VA-TOBACCO QUIT 15 YRS OR MORE [place] [facility] [place] [facility] Tobacco Use History This section includes a history of the smoking, or tobacco-related health factors, that were collected on or before the date of the Encounter. The data comes from the [place] facility where the Encounter took place. Date/Time Smoking Status/Tobacco Use Comment F acility Jan 26, 2023 01:30 PM VA-TOBACCO QUIT 15 YRS OR MORE [facility] [place] [facility] Jan 27, 2022 11:00 AM VA-TOBACCO FORMER USER [facility] [place] [facility] Jan 27, 2022 11:00 AM VA-TOBACCO QUIT 15 YRS OR MORE [facility] [place] [facility] Sep 17, 2020 09:00 AM VA-TOBACCO FORMER USER [facility] [facility] Sep 17, 2020 09:00 AM VA-TOBACCO QUIT 15 YRS OR MORE [facility] [place] [facility] Jun 04, 2019 02:57 PM VA-TOBACCO NEVER USED [facility] [place] [facility] Mar 14, 2018 11:23 AM VA-TOBACCO FORMER USER [facility] [facility] Mar 14, 2018 11:23 AM VA-TOBACCO QUIT [address] [facility] Apr 04, 2017 12:30 PM QUIT TOBACCO USE > [address] 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 Q34. What activities would you [...] and/or group meetings to help support the [place] with reaching their desired goals. Are you interested in receiving Whole Health Coaching outside of the [employer] program? Yes /johanny/ TERRY COATES PT, DPT PHYSICAL THERAPIST Signed: 10/26/2023 11:00 TERRY COATES [facility] Oct 26, 2023 10:38 AM GERIATRIC [...] veterans participation in the [employer] Exercise Program. [place] HARMONY MCCALL JR completed their Annual physical [...] By: 10/29/2023 09:27 /johanny/ Lucas Stratton DNP, TIERCE FILLER-BC, CNL Primary Care Nurse Practitioner 10/29/2023 ADDENDUM STATUS: COMPLETED yes /es/ Lucas Stratton DNP, TIERCE FILLER-BC, CNL Primary Care Nurse Practitioner Signed: 10/29/2023 09:27 [facility] COATES [facility]
--- OUTSIDE RECORDS SUMMARY | 2024-07-25 09:35 | XMS_ITS | Continuity of Care Document ---
Author Organization [facility] ter Address [address] [place] [id number]- Care Team Providers Care Naphthalene Operator Name Role Phone Marco Antonio MAYFIELD, Nicolle Gutierrez Primary Care Physicia n Encounter [facility] [id number] Date(s): 07/19/24 - 07/21/[address] [address]- Discharge Disposition: A-D/C Home Attending Physician: Connie Young MD Admitting Physician: Мария Plasecncia MD, Rai Referring Physician: Not on Staff, Referring MD Encounter Type: Disch Obv Allergies, Adverse Reactions, Alerts Substance Criticality Severity Reaction Reaction Severity Status morphine Active Medications aspirin 81 mg oral delayed release tablet 81 mg, By Mouth, Daily, # 30 tablet, Refills 0, Tot. Refills 0, Maintenance, 05/09/24 4:16:00 PM EST, Route to Pharmacy Electronically, [facility], Partial fill upon patient request if the prescription is for a schedule II opioid drug., 182, cm, 05/08/24 3:19:00 EST, Height, 96.5, kg, 05/07/24 1:12:00 EST, Dry Weight Start Date: 05/09/24 Stop Date: 06/08/24 Status: Ordered Quantity: 30.0 Unit: tablet Repeat number: 1 bromocriptine 2.5 mg oral tablet 5 mg, 2, tablet, By Mouth, Daily at bedtime, # 360 tablet, Refills 0, Maintenance, 05/07/24 10:46:00AM EST, Partial fill upon patient request if the prescription is for a schedule II opioid drug. Start Date: 05/07/24 Status: Ordered Quantity: 360.0 Unit: tablet Repeat number: 1 finasteride 5 mg oral tablet 1 tablet = 5 mg, By Mouth, Daily, # 90 tablet, 0 Refills, Maintenance, 05/07/24 10:45:00 AM EST, Tablet, Partial fill upon patient request if the prescription is for a schedule II opioid drug. Start Date: 05/07/24 Status: Ordered Quantity: 90.0 Unit: tablet Repeat number: 1 Keppra XR 500 mg oral tablet, extended release 3 tablet = 1,500 mg, By Mouth, Daily, plesae take total 1500 mg extended release daily at bedtime starting from tonight, # 100 each, 1 Refills, Maintenance, 05/13/24 10:51:00 AM EST, ER Tablet, [id number], Partial fill upon patient request if the prescription is for a schedule II opioid drug., 182, cm, 05/08/24 3:19:00 EST, Height, 96.5, kg, 05/07/24 1:12:00 EST, Dry Weight Start Date: 05/13/24 Status: Ordered Quantity: 100.0 Unit: each Repeat number: 2 levothyroxine 0.1 mg oral tablet 1 tablet = 100 mcg, By Mouth, Daily, # 60 tablet, 0 Refills, Maintenance, 05/07/24 10:45:00 AM EST, Tablet, Partial fill upon patient request if the prescription is for a schedule II opioid drug. Start Date: 05/07/24 Status: Ordered Quantity: 60.0 Unit: tablet Repeat number: 1 losartan 100 mg oral tablet 1 tablet = 100 mg, By Mouth, Daily, # 90 tablet, 0 Refills, Maintenance, 05/07/24 10:45:00 AM EST, Tablet, Partial fill upon patient request if the prescription is for a schedule II opioid drug. Start Date: 05/07/24 Status: Ordered Quantity: 90.0 Unit: tablet Repeat number: 1 losartan 50 mg oral tablet 100 mg, Tablet, By Mouth, 07/21/24 9:00:00 AM EDT Start Date: 07/21/24 Stop Date: 07/21/24 Status: Completed Repeat number: 1 meloxicam 15 mg oral tablet 1 tablet = 15 mg, By Mouth, Daily, # 30 tablet, 0 Refills, Maintenance, 05/07/24 10:45:00 AM EST, Tablet, Partial fill upon patient request if the prescription is for a schedule II opioid drug. Start Date: 05/07/24 Status: Ordered Quantity: 30.0 Unit: tablet Repeat number: 1 rosuvastatin 20 mg oral tablet 1 tablet = 20 mg, By Mouth, Daily, # 90 tablet, 0 Refills, Maintenance, 05/07/24 10:45:00 AM EST, Tablet, Partial fill upon patient request if the prescription is for a schedule II opioid drug. Start Date: 05/07/24 Status: Ordered Quantity: 90.0 Unit: tablet Repeat number: 1 tamsulosin 0.4 mg oral capsule 0.4 mg, 1, capsule, By Mouth, Daily, # 90 capsule, Refills 0, Maintenance, 05/07/24 10:45:00 AM EST,Partial fill upon patient request if the prescription is for a schedule II opioid drug. Start Date: 05/07/24 Status: Ordered Quantity: 90.0 Unit: capsule Repeat number: 1 Vitamin B12 = 1,000 mcg, By Mouth, Daily, 0 Refills, Maintenance, 07/19/24 3:56:00 PM EDT, Partial fill upon patient request if the prescription is for a schedule II opioid drug. Start Date: 07/19/24 Status: Ordered Repeat number: 1 Vitamin B6 = 50 mg, By Mouth, 2 times a day, 0 Refills, Maintenance, 07/19/24 3:54:00 PM EDT, Partial fill uponpatient request if the prescription is for a schedule II opioid drug. Start Date: 07/19/24 Status: Ordered Repeat number: 1 Problem List Condition Confirmation Course Effective Dates Status [facility] Informant Obese class I Confirmed Active Results Radiology Reports * Exam Date Time Procedure Performing Provider Status 07/19/24 1:03 PM Chest 2 Views Frontal and Lat Julian Meyer; Evangelist (Verified) Notes: (Chest 2 Views Frontal and Lat) Reason For Exam: Shortness of Breath, Fever;Other: RESULT: Chest 2 Views Frontal and Lat Chest 2 Views Frontal and Lat Refer to EMR; Hx of Present Illness: Recently dx with seizure condition. since then has had 4 seizures but today had 4 witnessed tonic clonic seizures lasting about 3-5 mins. By time ems arrived, seizure activity stopped. Did have a fall with stiking ashley, has lac to R eye. on ASA. aaox4.; Reason: Other:; Shortness of Breath, Fever; Clinical Question(s): Pneumonia; Order Comment: pt collared @ 07 19 COMPARISON: None. FINDINGS: LINES AND TUBES: None. LUNGS AND PLEURA: Clear lungs. Normal pulmonary vascularity. No pleural effusion. No pneumothorax. HEART, MEDIASTINUM AND NEERU: Heart is normal in size. Tortuous aorta. BONES AND SOFT TISSUES: No acute abnormality. Spine degenerative changes. IMPRESSION: No acute abnormality. WSN: [id number] Ordering Physician: Abimbola Alba Dictated By: Kiko Giron MD Dictated Date/Time: 07/19/24 1:07 pm Reviewed By: Kiko Giron MD Signed By: Kiko Giron MD Signed Date/Time: 07/19/24 1:07 pm Transcribed By: TRUONG Transcribed Date/Time: 07/19/24 1:06 pm * Exam Date Time Procedure Performing Provider Status 07/19/24 10:[address] Cervical Spine W/O Contrast Brooke Guzman; Auth (Verified) Notes: (CT Cervical Spine W/O Contrast) Reason For Exam: Neck trauma, dangerous injury mechanism;Other: RESULT: CT Cervical Spine W/O Contrast CT of the head and cervical spine dated July 19, 2024. Comparison films are from May 06, 2024. HISTORY: Pain secondary to trauma. Recent seizure. CT imaging of the head was performed with multislice acquisition from the foramen magnum to the vertex. No intravenous contrast material was utilized. Axial, coronal, and sagittal reconstruction was performed. A weight based protocol using automatic tube modulation was used to optimize exposure para meters. Examination of the posterior fossa shows a normal size midline fourth ventricle. No mass, hemorrhage, or abnormal extra-axial fluid collection is identified. Supratentorially, the lateral and third ventricles are normal in size, contour and position. No mass, hemorrhage, or abnormal extra-axial fluid collection is identified. The montoya-white matter differentiation is well preserved. No hyperdense vessel or loss of the insular ribbon is appreciated. Visualized osseous structures, paranasal sinuses and orbits shows mucosal thickening in the maxillary sinuses right greater than left, the ethmoid sinuses left greater than right and in the left frontal sinus. The mastoid air cells are clear. Evaluation of the cervical spine was performed with multislice acquisition from the skull base through the apices of the lungs with axial, coronal, and sagittal reconstruction. A weight based protocol using automatic tube modulation was used to optimize exposure parameters. The vertebral bodies are normal in height and alignment. There is loss of intervertebral disc spaceheight and osteophyte formation most prominent at C5-6. The facet joints align normally without locked or perched facets. The craniocervical articulation is anatomic. Prevertebral soft tissues are within normal limits. No orbital hematoma is seen. The apices the lungs are unremarkable. IMPRESSION: No evidence of acute intracranial abnormality and no significant interval change. No evidence of cervical spine fracture or dislocation. Paranasal sinus inflammation as described above. Examination 86985 and [address]. Thank you for allowing me to participate in the care of this patient. WSN: [id number] Ordering Physician: Abimbola Alba Dictated By: Jude Solis MD Dictated Date/Time: 07/19/24 10:48 a Reviewed By: Jude Solis MD Signed By: Jude Solis MD Signed Date/Time: 07/19/24 10:48 am Transcribed By: TRUONG Transcribed Date/Time: 07/19/24 10:26 am * Exam Date Time Procedure Performing Provider Status 07/19/24 10:[address] Head/Brain W/O Contrast Brooke Caba; Evangelist (Verified) Notes: (CT Head/Brain W/O Contrast) Reason For Exam: 4x seizures this AM, fall w/ headstrike;Seizure Disorder RESULT: CT Head/Brain W/O Contrast CT of the head and cervical spine dated July 19, 2024. Comparison films are from May 06, 2024. HISTORY: Pain secondary to trauma. Recent seizure. CT imaging of the head was performed with multislice acquisition from the foramen magnum to the vertex. No intravenous contrast material was utilized. Axial, coronal, and sagittal reconstruction was performed. A weight based protocol using automatic tube modulation was used to optimize exposure para meters. Examination of the posterior fossa shows a normal size midline fourth ventricle. No mass, hemorrhage, or abnormal extra-axial fluid collection is identified. Supratentorially, the lateral and third ventricles are normal in size, contour and position. No mass, hemorrhage, or abnormal extra-axial fluid collection is identified. The montoya-white matter differentiation is well preserved. No hyperdense vessel or loss of the insular ribbon is appreciated. Visualized osseous structures, paranasal sinuses and orbits shows mucosal thickening in the maxillary sinuses right greater than left, the ethmoid sinuses left greater than right and in the left frontal sinus. The mastoid air cells are clear. Evaluation of the cervical spine was performed with multislice acquisition from the skull base through the apices of the lungs with axial, coronal, and sagittal reconstruction. A weight based protocol using automatic tube modulation was used to optimize exposure parameters. The vertebral bodies are normal in height and alignment. There is loss of intervertebral disc spaceheight and osteophyte formation most prominent at C5-6. The facet joints align normally without locked or perched facets. The craniocervical articulation is anatomic. Prevertebral soft tissues are within normal limits. No orbital hematoma is seen. The apices the lungs are unremarkable. IMPRESSION: No evidence of acute intracranial abnormality and no significant interval change. No evidence of cervical spine fracture or dislocation. Paranasal sinus inflammation as described above. Examination 45935 and [address]. Thank you for allowing me to participate in the care of this patient. WSN: [id number] Ordering Physician: Abimbola Alba Dictated By: Jude Solis MD Dictated Date/Time: 07/19/24 10:48 a Reviewed By: Jude Solis MD Signed By: Jude Solis MD Signed Date/Time: 07/19/24 10:48 am Transcribed By: TRUONG Transcribed Date/Time: 07/19/24 10:26 am Vital Signs Most recent to oldest [Reference Range]: 1 2 3 Height 180 cm (07/21/24 9:51 AM) 180 cm (07/21/24 6:05 AM) 180 cm (07/21/24 3:55 AM) Weight 98.5 kg (07/19/24 3:41 PM) Oxygen Saturation [94-100 %] 97 % (07/21/24 9:51 AM) 97 % (07/21/24 6:05 AM) 95 % (07/21/24 3:55 AM) Pulse Rate [55-90 bpm] 66 bpm (07/21/24 9:51 AM) 58 bpm (07/21/24 6:05 AM) 72 bpm (07/21/24 3:55 AM) Body Mass Index [18.5-24.99 kg/m2] 30.4 kg/m2 *>HHI* (07/19/24 3:41 PM) Blood Pressure [90-138/55-84 mm Hg] 148/69mm Hg *H* (07/21/24 9:51 AM) 154/65mm Hg *H* (07/21/24 8:55 AM) 154/65mm Hg *H* (07/21/24 6:05 AM) Respiratory Rate [16-30 br/min] 17 br/min (07/21/24 9:51 AM) 16 br/min (07/21/24 9:00 AM) 16 br/min (07/21/24 6:05 AM) Temperature [96.8-100.4 DegF] 98.5 DegF (07/21/24 9:51 AM) 97.6 DegF (07/21/24 6:05 AM) 97.7 DegF (07/21/24 3:55 AM) Mode of Delivery (Oxygen) Room air (07/21/24 9:51 AM) Room air (07/21/24 6:05 AM) Room air (07/21/24 3:55 AM) Blood pressure sites Arm, right (07/21/24 9:51 AM) Arm, right (07/21/24 6:05 AM) Arm, right (07/21/24 3:55 AM) Temperature Route Oral (07/21/24 9:51 AM) Oral (07/21/24 6:05 AM) Oral (07/21/24 3:55 AM) Dry Weight 98.5 kg (07/19/24 3:41 PM) Social History Social History Type Response Sex Male Sex Representation Male (finding) Admission evaluation note * Patsy Mccollum NP: MODIFY, MODIFY, PERFORM Event Display: Admission Note Authored Date: [id number] Patient: ??ANGELHARMONY Ovalle JR ? Age:??83 Years?Sex:??Male?:??1940?? Chief Complaint/Reason for Consultation Recently dx with seizure condition. since then has had 4 seizures but today had 4 witnessed tonic clonic seizures lasting about 3-5 mins. By time ems arrived, seizure activity stopped. Did have a fall with stiking ashley, has lac to R eye. on ASA. aaox4. History of Present Illness The patient is an 83 year old male with history of??YARELI on CPAP, complex partial seizure,??non-obstructive CAD, hypertension, hypothyroidism, BPH, OA L. Knee, gynecomastia, ?pituitary prolactinoma who presents to the emergency department for seizures, fall with head strike. ??Patient states that hewas feeling warm which is his seizure aura, attempted to stand up and walk which usually makes him feel better when he fell and hit his forehead.?? He states that he was able to get up and back into bed.?? He states that he felt another aura and does not remember what happened afterwards. Per ED note his??daughter states that he was calling out for help.?? His daughter states that when she arrived, patient was at the end of his seizure, was staring into space appeared postictal. ??She also??states that in front of her he had another episode where she felt that??his right arm was shaking and possibly his left arm as well. ??They called for an ambulance. ??Of note patient recently increased his Keppra dose from 1000 mg ER daily.?? The patient was taking??2000 mg ER daily but RX history looks like only 250 mg IR BID was added to the original dose. The patient started taking the higher dose2 nights ago secondary to [place] increased frequency in [place]?? [place] He does state that on the he had an aura and when he took his pulse it was only 30 bpm, states that he felt unwell but after about 30 minutes all of his symptoms resolved so he did not present to the hospital. ??Patient is alert and oriented, acting at his baseline.?? He denies any symptoms of chest pain, headache, shortness of breath, nausea or vomiting.? In the ED, the patient is afebrile with elevated blood pressure initially, now resolved and otherwise stable vital signs.?? CT head and neck are nonacute.?? CXR shows no acute abnormality.?? EKG shows sinus bradycardia, heart rate 54, LBBB.?? 2nd EKG shows SB rate 44, LBBB.?? Laboratory data is u nremarkable.?HS troponin is 17,??25.?? U tox, UA and viral panel are negative.?? ED provider discussed with neurology who recommended continuing the patient's home dose of Keppra.. ??The patient was given Keppra 2000 mg and losartan in the??ED. He is admitted for seizure and bradycardia.?? Review of Systems Constitutional:??No weight loss, fever, chills, weakness or fatigue. Allergy/Immune: Denies any??Eczema or hives Eyes:??No visual loss, blurred vision, double vision or yellow sclera ENT:??No hearing loss, sneezing, congestion, runny nose or sore throat. Respiratory:??No shortness of breath, cough or sputum production. Cardiovascular:??No chest pain, chest pressure or chest discomfort. No palpitations or pedal edema. Gastrointestinal:??No anorexia, nausea, vomiting or diarrhea. No abdominal pain or blood in stool. Genitourinary:??No burning micturition. No urinary frequency or incontinence. Neurologic:??No headache, dizziness, syncope, unilateral weakness, ataxia, numbness or tingling in the extremities. No change in bowel or bladder control. Musculoskeletal:??No muscle pain, back pain, joint pain or stiffness. Hematologic/Lymphatics:??No bleeding or bruising. No painful lymph nodes. Skin:??No rash or itching. Endocrine:??No reports of sweating. No cold or heat intolerance. No polyuria or polydipsia. Psychiatric:??No depression or anxiety. Objective Vital Signs?? Temperature: 97.7 DegF (07/20/24 03:01:00) Temperature Route: Oral (07/20/24 03:01:00) Pulse Rate: 65 bpm (07/20/24 03:01:00) Respiratory Rate: 22 br/min (07/20/24 03:01:00) Systolic Blood Pressure:??163 mm Hg??High (07/20/24 03:01:00) Diastolic Blood Pressure:??88 mm Hg??High (07/20/24 03:01:00) Blood pressure sites: Arm, right (07/20/24 03:01:00) Mean Arterial Pressure: 113 mm Hg (07/20/24 03:01:00) Pulse Pressure: 75 mm Hg (07/20/24 03:01:00) Oxygen Saturation: 99 % (07/20/24 03:01:00) Mode of Delivery (Oxygen): Room air (07/20/24 03:01:00) Early Warning Score: 4 (07/20/24 03:02:12) ? Intake/Output? 07/19 08:56 07/20 07:00 07/19 07:00 07/18 07:00 07/17 07:00 ?? 07/20 03:22 07/20 03:22 07/20 06:59 07/19 06:59 07/18 06:59 Intake ?480 ?0 ?480 ?0 ?0 Output ?0 ?0 ?0 ?0 ?0 Net Total ?480 ?0 ?480 ?0 ?0 ? Urine Count ?5 ?0 ?5 ?0 ?0 ? Physical Exam Constitutional: Alert, in no distress. Mental Status: Oriented to person, place and time. Head: Normocephalic. Eyes: Pupils are equal, round and reactive to light. Extraocular muscles intact. Ear, Nose and Throat: Oropharynx clear, mucous membranes moist. Ears and nose without masses, lesions or deformities. Trachea midline. Neck: Supple, Full range of motion. Respiratory: Clear to auscultation. No wheezing, rales or rhonchi. Cardiovascular: S1 S2 regular. No murmurs, rubs or gallops. Gastrointestinal: Abdomen soft, non-tender, non-distended. Normal bowel sounds. No pulsatile mass.?? Genitourinary: No costovertebral angle tenderness. Neurologic: Cranial nerves II-XII grossly intact. No focal neurological deficits. Flexor plantar response. Moves all extremities spontaneously. Sensation intact bilaterally. Skin: No rashes or lesions. No petechiae or purpura.?? Musculoskeletal: No cyanosis or clubbing. No gross deformities. Normal range of motion. Heme/Lymphatics/Immun: Palpation of neck reveals no swelling or tenderness of neck nodes.?? Psychiatric: Normal mood and affect Assessment/Plan Assessment:??The patient is an 83 year old male with history of??YARELI on CPAP, complex partial seizure,??non-obstructive CAD, hypertension, hypothyroidism, BPH, OA L. Knee, gynecomastia, ?pituitary prolactinoma who presents to the emergency department for seizures, fall with head strike.??Patient states that he was feeling warm which is his seizure aura, attempted to stand up and walk which usually makes him feel better when he fell and hit his forehead.??He states that he was able to get up andback into bed.??He states that he felt another aura and does not remember what happened afterwards.Per ED note his??daughter states that he was calling out for help.??His daughter states that when she arrived, patient was at the end of his seizure, was staring into space appeared postictal.??She also??states that in front of her he had another episode where she felt that??his right arm was shaking and possibly his left arm as well.??They called for an ambulance.??Of note patient recently increased his Keppra dose from 1000 mg ER daily.??The patient was taking??2000 mg ER daily but RX historylooks like only 250 mg IR BID was added to the original dose. The patient started taking the higherdose 2 nights ago secondary to having increased frequency in [place].??He is followed by a neurologist in [place].??He does state that on the he had an aura and when he took his pulse it was only 30 bpm, states that he felt unwell but after about 30 minutes all of his symptoms resolved so he didnot present to the hospital.??Patient is alert and oriented, acting at his baseline.??He denies anysymptoms of chest pain, headache, shortness of breath, nausea or vomiting.? In the ED, the patient is afebrile with elevated blood pressure initially, now resolved and otherwise stable vital signs.??CT head and neck are nonacute.??CXR shows no acute abnormality.??EKG shows sinus bradycardia, heart rate 54, LBBB.??2nd EKG shows SB rate 44, LBBB.??Laboratory data is unremarkable.?HS troponin is 17,??25.??U tox, UA and viral panel are negative.??ED provider discussed with neurology who recommended continuing the patient's home dose of Keppra.?The patient was given Keppra 2000 mg and losartan in the??ED. He is admitted for seizure and bradycardia.? Seizure (R56.9):?? 83 year old male with history of??YARELI on CPAP, complex partial seizure,??non- obstructive CAD, hypertension, hypothyroidism, BPH, OA L. Knee, gynecomastia, ?pituitary prolactinoma who presents to the emergency department for seizures, fall with head strike.??Patient states that he was feeling warm which is his seizure aura, attempted to stand up and walk which usually makes him feel better when hefell and hit his forehead.??He states that he was able to get up and back into bed.??He states thathe felt another aura and does not remember what happened afterwards. Per ED note his??daughter states that he was calling out for help.??His daughter states that when she arrived, patient was at the end of his seizure, was staring into space appeared postictal.??She also??states that in front of her he had another episode where she felt that??his right arm was shaking and possibly his left arm aswell.??In the ED, the patient is afebrile with elevated blood pressure initially, now resolved and otherwise stable vital signs.??CT head and neck are nonacute.??CXR shows no acute abnormality.??EKG s hows sinus bradycardia, heart rate 54, LBBB.??2nd EKG shows SB rate 44, LBBB.??Laboratory data is unremarkable.?HS troponin is 17,??25.??U tox, UA and viral panel are negative.??ED provider discussed with neurology who recommended continuing the patient's home dose of Keppra.?The patient was g iven Keppra 2000 mg and losartan in the??ED. He is admitted for seizure and bradycardia.?? -Neurology input appreciated. -Patient states he has been taking 2000 mg ER at night.?? However, in reviewing the patient's pharmacy history it??appears that he was taking 1000 mg ER at night.?? An additional Keppra IR 250 mg BIDwas added for an equivalent of 750 mg BID.?? We do not carry the extended release version of Keppra.?? -Continue Keppra IR 750 mg BR while inpatient. -Ativan 1 mg prn seizure activity. -Consider formal neurology consult for possible medication adjustment.? Bradycardia (R00.1):?? -Patient states his pulse??was in the 30s while at home.?? Here HR has been??42-71. -He??has been taking metoprolol 50 mg XL daily. -I have reduced the dose to metoprolol XL 25 mg daily. -Continue telemetry. ?? BPH (benign prostatic hyperplasia) (N40.0):?? -Continue finasteride and tamsulosin. ?? Hypertension (I10):?? Hyperlipidemia (E78.5):?? CAD (coronary artery disease) (I25.10):?? -Continue ASA metoprolol, losartan and rosuvastatin. ?? YARELI (obstructive sleep apnea) (G47.33):?? -CPAP. ?? 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 -Continue Bromocriptine. ?? Hypothyroidism (E03.9): -Continue home dose of levothyroxine. ?? Diet:?? Cardiac. ?? VTE Prophylaxis:?VTE Prophylaxis Assessment:??VTE Prophylaxis Ordered ?? Discharge Planning:?? -Pending clinical course. ?? Code Status:??Full code. ?Order Code Status:??Code Status Ordered ? Histories Allergies Allergies ?(Active and Proposed Allergies Only) morphine? (Severity: Unknown severity, Onset: Unknown) ? Past Medical History/Problem List Active Problems(1) Obese class I ? Past Surgical History No surgery history documented. ? Social History No social history documented. ? Psychosocial History ? Family History No Family History documented. ? Medications Home Medications Aspirin (aspirin 81 mg oral delayed release tablet)??81 Milligram By Mouth Daily for 30 Days Bromocriptine (bromocriptine 2.5 mg oral tablet)??5 Milligram 2 tablet By Mouth Daily at bedtime Cyanocobalamin (Vitamin B12)??1,000 Microgram By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 recently increased his Keppra dose [id number] mg ER daily. The patient was taking 2000 mg ER daily but RX history looks like only 250 mg IR BID was added to the original dose. The patient started taking the higher dose 2 nights ago secondary to having increased frequency in [place]. He is followed by a neurologist in [place]. He does state that on the he had an aura and when he took his pulse it was only 30 bpm, states that he felt unwell but after about 30 minutes all of his symptoms resolved so he did not present to the hospital. Patient is alert and oriented, acting at his baseline. He denies any symptoms of chest pain, headache, shortness of breath, nausea or vomiting. In the ED, the patient is afebrile with elevated blood pressure initially, now resolved and otherwise stable vital signs. CT head and neck are nonacute. CXR shows no acute abnormality. EKG shows sinus bradycardia, heart rate 54, LBBB. 2nd EKG shows SB rate 44, LBBB. Laboratory data is unremarkable.HS troponin is 17, 25. U tox, UA and viral panel are negative. ED provider discussed with neurologywho recommended continuing the patient's home dose of Keppra.. The patient was given Keppra 2000 mgand losartan in the ED. He is admitted for seizure and bradycardia. Home Medications Aspirin (aspirin 81 mg oral delayed release tablet) 81 Milligram By Mouth Daily for 30 Days Bromocriptine (bromocriptine 2.5 mg oral tablet) 5 Milligram 2 tablet By Mouth Daily at bedtime Cyanocobalamin (Vitamin B12) 1,000 Microgram By Mouth Daily Finasteride (finasteride 5 mg oral tablet) 1 tab(s) 5 Milligram By Mouth Daily levETIRAcetam (Keppra XR 500 mg oral tablet, extended release) 2 tab(s) 1,000 Milligram By Mouth Daily Levothyroxine (levothyroxine 0.1 mg oral tablet) 1 tab(s) 100 Microgram By Mouth Daily Losartan (losartan 100 mg oral tablet) 1 tab(s) 100 Milligram By Mouth Daily Meloxicam (meloxicam 15 mg oral tablet) 1 tab(s) 15 Milligram By Mouth Daily Metoprolol (Metoprolol Succinate ER 50 mg oral tablet, extended release) 50 Milligram 1 tablet By Mouth Daily Pyridoxine (Vitamin B6) 50 Milligram By Mouth 2 times a day Rosuvastatin (rosuvastatin 20 mg oral tablet) 1 tab(s) 20 Milligram By Mouth Daily Tamsulosin (tamsulosin 0.4 mg oral capsule) 0.4 Milligram 1 capsule By Mouth Daily ??? -Patient states he has been taking 2000 mg ER at night. However, in reviewing the patient's pharmacy history it appears that he was taking 1000 mg ER at night. An additional Keppra IR 250 mg BID was added for an equivalent of 750 mg BID. We do not carry the extended release version of Keppra. -Continue Keppra IR 750 mg BR while inpatient. ??? -Patient states his pulse was in the 30s while at home. Here HR has been 42-71. -He has been taking metoprolol 50 mg XL daily. -I have reduced the dose to metoprolol XL 25 mg daily. >>>>>>>>>>>>>>>>>>>>>>>>>>>> END admission H&P Excerpt: >>>>>>>>>>>>>>>>>>>>>>>>>>>> >>>>>>>>>>>> Neurological Exam: APPEARANCE: Pleasant, cooperative, neat, not in distress. COGNITION & LANGUAGE: There is good memory for events over past months and years and from several minutes ago during the encounter. There is spontaneous multi sentence grammatical fluent speech. There is understanding of multi sentence responses. III, IV, : Primary position is normal and pupils are equal. Visual pursuits are conjugate, smooth, full. There is no nystagmus. FACIAL MOVEMENT voluntary movement full and symmetric, without delayed initiation or slowness. There is no baseline asymmetry. STRENGTH: UE: Deferred LE: Deferred TONE: Normal proximally and distally in upper and lower extremities. REFLEXES: No clonus at the ankles. COORDINATION: Caksqy-[id number] is without ataxia or prominent tremor. Finger tapping is normal, foot tapping is normal. GAIT: Erect, narrow base, normal stride length and pace, normal arm swing; no associated tremor. >>>>>>>>>>>> Neurological Exam: Normal, with details as follows: APPEARANCE: Pleasant, cooperative, neat, not in distress. COGNITION & LANGUAGE: There is good memory for events over past months and years and from several minutes ago during the encounter. There is spontaneous multi sentence grammatical fluent speech. There is understanding of multi sentence responses. CRANIAL NERVES: visual evans intact to motion in the periphery, pupils equal and reactive, II, IV,: Primary position is normal and pupils are equal. Visual pursuits are conjugate, smooth, full. There is no nystagmus, there is mild left ptosis. FACIAL MOVEMENT voluntary movement full and symmetric, without delayed initiation. There is no baseline asymmetry., Face sensation full and symmetric, hearing bilaterally absent to finger brush, palate elevated symmetrically, shoulder shrug intact. tongue midline without atrophy STRENGTH: Upper extremities: Full proximally and distally; lower extremities full proximally and distally TONE: Normal proximally and distally in upper and lower extremities. REFLEXES: biceps: Trace, brachioradialis trace, No clonus at ankles, plantars, flexor. COORDINATION: Izcrim-qg-[id number] is without ataxia or prominent tremor. Finger tapping is normal, foot tapping is normal. GAIT: Deferred IMPRESSION: --Breakthrough seizures with some confusion about appropriate antiseizure medication dosing. ???Fall after getting up during one of his seizures which possibly related both to partial incapacitation from the seizure and to lightheadedness from muted vasovagal reflexes in the context of beta-pauline treatment from cardiology. I remain unclear what his outpatient neurologist intended for his modified dosing. I cannot say forsure that it was working as he had six or seven seizures between mid April and june and none for about 7 days until he had four on 1 day. The data are too sparse. The patient feels he might of made an error. I cannot exclude that there was no ever in communication between the neurologist's office and the pharmacy. I think this should be cleared up. He had a flurry of seizures. He has had none today. Bradycardia was found and metoprolol was reduced. Otherwise, no system history was found at admission. The flurry of seizures likely have related to the stress of bradycardia but I think it highly plausible that it was at least in large part related to medication errors. I think no further investigation is needed. Medication management is. PLAN No changes to current antiseizure dosing suggested by outpatient neurology. Communication with outpatient neurology to understand what his discharge dosage of levetiracetam should be. This can be done SundayJuly 21. With this confusion, I suggest medication monitoring with his daughter arranging so that his medication organizer is appropriately filled and there is someone they are watching him taking his medication. His daughter was present during this encounter and she agrees to do this. I suggested that he not stand up at the beginning of any recurrent seizure that might happen. This does not help his seizure. It may precipitate another fall. He understands. * Adithya Torres: PERFORM Event Display: Consultation Note Authored Date: Talked with patient and daughter at bedside sounds like he had prolonged episode of convulsion lasting about 5 minutes with no postevent confusion or headache. Lower likelihood that this is seizure especially in the light of he is bradycardic on admission. Recommend follow-up with Dr. Bernard and continue his extended release Keppra in the interim and follow-up with cardiology regarding bradycardia as this may relate represent convulsive syncope. Note * Claudia Hackett RN: PERFORM Event Display: Discharge/Transfer Note Hospital Authored Date: [id number] Nursing Discharge Note Entered On: 07/21/2024 17:27 EDT Performed On: 07/21/2024 17:27 EDT by Claudia Hackett RN Nursing Discharge Note 2 Discharge Time : 07/21/2024 10:14 EDT Discharge Level of Care at Discharge : Home/Skilled Nursing/Foster Care Patient Left Unit Via : Wheelchair Patient Accompanied Off Unit with : Responsible adult DC Instructions Provided & Signed by Pt : Yes Patient Understands D/C Instructions : Yes Patient Instructions Discharge Signed : Yes Did Pt have Specialty Bed or Wound Vac : No Claudia Hackett RN - 07/21/2024 17:27 EDT * Connie Young MD: MODIFY, PERFORM Event Display: Discharge/Transfer Note Hospital Authored Date: [id number] Patient: ??HARMONY MCCALL JR ? Age:??83 Years?Sex:??Male?:??1940?? 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) CAD (coronary artery disease) (I25.10) Bradycardia (R00.1) Seizure (R56.9) _ Discharge Medications Aspirin (aspirin 81 mg oral delayed release tablet)??81 Milligram By Mouth Daily for 30 Days Bromocriptine (bromocriptine 2.5 mg oral tablet)??5 Milligram 2 tablet By Mouth Daily at bedtime Cyanocobalamin (Vitamin B12)??1,000 Microgram By Mouth Daily Finasteride (finasteride 5 mg oral tablet)??1 tab(s) 5 Milligram By Mouth Daily levETIRAcetam (Keppra XR 500 mg oral tablet, extended release)??3 tab(s) 1,500 Milligram By Mouth Daily plesae take ??total 1500 mg extended release daily at bedtime starting from tonight Levothyroxine (levothyroxine 0.1 mg oral tablet)??1 tab(s) 100 Microgram By Mouth Daily Losartan (losartan 100 mg oral tablet)??1 tab(s) 100 Milligram By Mouth Daily Meloxicam (meloxicam 15 mg oral tablet)??1 tab(s) 15 Milligram By Mouth Daily Pyridoxine (Vitamin B6)??50 Milligram By Mouth 2 times a day Rosuvastatin (rosuvastatin 20 mg oral tablet)??1 tab(s) 20 Milligram By Mouth Daily Tamsulosin (tamsulosin 0.4 mg oral capsule)??0.4 Milligram 1 capsule By Mouth Daily ? Durable Medical Equipment Discharge recommendations: Home with outpatient sevices (05/08/24) Ambulatory devices needed: None (05/06/24) ? Medications Started none Allergies Allergies ?(Active and Proposed Allergies Only) morphine? (Severity: Unknown severity, Onset: Unknown) ? Objective Assessment and Plan ?The patient is an 83 year old male with history of??YARELI on CPAP, complex partial seizure,??non-obstructive CAD, hypertension, hypothyroidism, BPH, OA L. Knee, gynecomastia, ?pituitary prolactinoma who presents to the emergency department for seizures, fall with head strike.??Patient states that he was feeling warm which is his seizure aura, attempted to stand up and walk which usually makes himfeel better when he fell and hit his forehead.??He states that he was able to get up and back into bed.??He states that he felt another aura and does not remember what happened afterwards. His daughter states that when she arrived, patient was at the end of his seizure, was staring into space appeared postictal.??She also??states that in front of her he had another episode where she felt that??his right arm was shaking and possibly his left arm as well.??They called for an ambulance and pt was brougght to ER. Pt was given 2000mg of IV Keppra and admitted for further management. ?? Seizure (R56.9):?? Pt is a known seizure disorder and his home regimen included Keppra XR 1000mg daily at bedtime. He tellm that he could not tolrate the short acting keppra as it was making him sleepy. -Neurology consulted -Pt was placed on Keppra 750mg Bid in the ER No further episode of seizure Has been seen by neurology, appreciate recommendation Neurology recommends?? continue Keppra?? at currenbt dose ??until seen by his primary neurologist Patient is currently taking Keppra 1500 mg extended release at bedtime which he will continue ??plan was discussed with patient and his daughter was at bedside ? Bradycardia (R00.1):?? -Patient states his pulse??was in the 30s while at home.?? Here HR has been??42-71. -He??has been taking metoprolol 50 mg XL daily. 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 BPH (benign prostatic hyperplasia) (N40.0):?? -Continue finasteride and tamsulosin. ?? Hypertension (I10):?? Hyperlipidemia (E78.5):?? CAD (coronary artery disease) (I25.10):?? -Continue ASA metoprolol, losartan and rosuvastatin. ?? YARELI (obstructive sleep apnea) (G47.33):?? -CPAP. ?? 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 -Continue Bromocriptine. ?? Hypothyroidism (E03.9): -Continue home dose of levothyroxine. ? . Physical Exam GENERAL: In no apparent distress HEENT: Head normocephalic, PERRL,Moist mucous membrane. Neck supple CARDIOVASCULAR: Normal rate and rhythm, no murmurs, no rubs, no gallops RESPIRATORY: Lungs clear to auscultation, no wheezes , no crackles ABDOMEN/GI: Nondistended, soft, nontender, normal bowel sounds EXTREMITIES: No pitting edema BUSHING PRESS OPERATOR: Alert and oriented x 3.Non focal neuro exam. ? Consultants Neurology Pending Results Add On Lab Order ordered on 07/19/2024 Follow-Up Appointments Added Follow Up ?Time Frame ?Comments Marco Antonio MAYFIELD , Nicolle Gutierrez?1 week?pl call to schedule follow up?? Patient Instructions Please continue taking Keppra extended release?? 1500 mg daily at bedtime.?Please??do not take Metoprolol until seen by?? your veneer production machine operator.?? Post Discharge Care Discharge ?07/21/24 9:22:00 EDT ?Order Comment:?? Discharge Prescriptions ?None, 07/21/24 9:22:00 EDT ?Order Comment:?? Home Health Face to Face ^HomeHealthFTF Results Discharge Labs BLOOD COUNT & DIFF WBC 10.0 k/mm3 ()?? 07/19/2024 10:44 RBC 5.14 m/mm3 ()?? 07/19/2024 10:44 Hgb 15.9 Gm/dL ()?? 07/19/2024 10:44 Hct 47.4 % ()?? 07/19/2024 10:44 MCV 92.2 femtoliters ()?? 07/19/2024 10:44 MCH 30.9 pg ()?? 07/19/2024 10:44 MCHC 33.5 Gm/dL ()?? 07/19/2024 10:44 Platelet Count 157 k/mm3 ()?? 07/19/2024 10:44 RDW-SD 45.0 femtoliters ()?? 07/19/2024 10:44 MPV 9.1 femtoliters (Low)?? 07/19/2024 10:44 Nucleated RBC (Automated) 0.0 #/100 WBC'S ()?? 07/19/2024 10:44 Abs. NRBC 0.0 k/mm3 ()?? 07/19/2024 10:44 Abs. Neut 7.1 k/mm3 (High)?? 07/19/2024 10:44 Abs. Lymph 1.9 k/mm3 ()?? 07/19/2024 10:44 Abs. [place] 0.8 k/mm3 ()?? 07/19/2024 10:44 Abs. Eo 0.2 k/mm3 ()?? 07/19/2024 10:44 Abs. Baso 0.1 k/mm3 ()?? 07/19/2024 10:44 Neut % 70.8 % ()?? 07/19/2024 10:44 Lymph % 18.6 % ()?? 07/19/2024 10:44 [place] % 7.9 % ()?? 07/19/2024 10:44 Eos % 1.7 % ()?? 07/19/2024 10:44 Baso % 0.7 % ()?? 07/19/2024 10:44 Imm Gran 0.3 % ()?? 07/19/2024 10:44 Abs. Imm Gran 0.0 k/mm3 ()?? 07/19/2024 10:44 ?? CARDIAC High Sensitivity Troponin (HSTnT) 25 ng/L (High)?? 07/19/2024 15:32 ? CHEM GENERAL Sodium 142 mmol/L ()?? 07/19/2024 10:44 Potassium 3.9 mmol/L ()?? 07/19/2024 10:44 Chloride 107 mmol/L ()?? 07/19/2024 10:44 Bicarbonate Level 27 mmol/L ()?? 07/19/2024 10:44 Anion Gap 8 mmol/L ()?? 07/19/2024 10:44 Glucose Level 96 mg/dL ()?? 07/19/2024 10:44 Glucose, POC 126 mg/dL (High)?? 07/20/2024 09:55 BUN 19 mg/dL ()?? 07/19/2024 10:44 Creatinine-Blood 0.95 mg/dL ()?? 07/19/2024 10:44 Estimated GFR Creatinine 80 ML/MIN/1.73 M2 ()?? 07/19/2024 10:44 Calcium 9.8 mg/dL ()?? 07/19/2024 10:44 Magnesium 2.3 mg/dL ()?? 07/19/2024 10:44 Lactate 1.9 mmol/L ()?? 07/19/2024 10:44 ? COAG INR 1.1 ()?? 07/19/2024 10:44 Protime (PT) 11.2 seconds ()?? 07/19/2024 10:44 ?? ENDOCRINE/TUMOR MARKER TSH 0.38 uIU/mL (Low)?? 07/19/2024 10:44 Free T4 1.67 ng/dL ()?? 07/19/2024 10:44 ?? TOXICOLOGY/TDM Barbiturate Screen, Urine NONE DETECTED ()?? 07/19/2024 10:50 Cannabinoid Screen, Urine NONE DETECTED ()?? 07/19/2024 10:50 Cocaine Metabolite Screen, Urine NONE DETECTED ()?? 07/19/2024 10:50 Benzodiazepine Screen, Urine NONE DETECTED ()?? 07/19/2024 10:50 Amphetamine Screen, Urine NONE DETECTED ()?? 07/19/2024 10:50 Opiate Screen, Urine NONE DETECTED ()?? 07/19/2024 10:50 Levetiracetam Level 40.90 mg/L ()?? 07/19/2024 10:44 ? UA/URINALYSIS Appear/Color, Urine LIGHT YELLOW ()?? 07/19/2024 10:50 Specific [place], Urine 1.015 ()?? 07/19/2024 10:50 pH, Urine 8.0 ()?? 07/19/2024 10:50 Albumin, Urine NEGATIVE ()?? 07/19/2024 10:50 Glucose, Urine NEGATIVE ()?? 07/19/2024 10:50 Ketones, Urine NEGATIVE ()?? 07/19/2024 10:50 Bilirubin, Urine NEGATIVE ()?? 07/19/2024 10:50 Hemoglobin, Urine NEGATIVE ()?? 07/19/2024 10:50 Nitrite, Urine NEGATIVE ()?? 07/19/2024 10:50 Leukocyte, Urine NEGATIVE ()?? 07/19/2024 10:50 Urobilinogen NORMAL mg/dL ()?? 07/19/2024 10:50 WBC's, Urine 1 /HPF ()?? 07/19/2024 10:50 RBC's, Urine 1 /HPF ()?? 07/19/2024 10:50 Squamous Epith <1 /HPF ()?? 07/19/2024 10:50 Amorphous Crystals MODERATE /HPF ()?? 07/19/2024 10:50 Hold Urine Culture Testing available 48 hours from time of collection. ()?? 07/19/2024 10:50 ?? URINE OTHER Est Creatinine Clearance 64.69 mL/min ()?? 07/19/2024 17:14 ? VIROLOGY Influenza A PCR NEGATIVE ()?? 07/19/2024 10:50 Influenza B PCR NEGATIVE ()?? 07/19/2024 10:50 RSV PCR NEGATIVE ()?? 07/19/2024 10:50 COVID-19 PCR Specimen Source NASAL ()?? 07/19/2024 10:50 COVID-19 PCR Result NEGATIVE ()?? 07/19/2024 10:50 ? 35_ minutes spent on discharge * Keith Álvarez RN: PERFORM Event Display: Patient Education/Instruction Authored Date: Inpatient Adult Discharge Instructions. [address] [id number] Name: HARMONY MCCALL : 1940?? Visit: 07/19/2024 08:56?? Current Date: 07/21/2024 10:03 ?? Account: [id number]?? Inpatient Adult Discharge Instructions We would like to thank you for allowing us to assist you with your healthcare needs. The following includes patient education materials and information regarding your injury/illness. Our entire staffstrives to provide an excellent experience for our patients and their families. PLEASE ENSURE YOU FOLLOW-UP PER THE INSTRUCTIONS BELOW! ?? YOUR OPINION IS IMPORTANT TO US! Please complete the survey you may receive by mail or email. Your feedback will be used to make improvements to the healthcare experiences of our patients and their families. Surveys are administered by [facility] [place]. ?? If further treatment with your primary care physician or another doctor is recommended, it is important for you to keep the appointment. Call your primary care physician or return to the Emergency Department immediately if your condition worsens, fails to improve, or new symptoms develop. If you need to find a doctor, you can call [facility] [employer] Link for a referral at [phone] or toll free at [phone] or log in to [email or web address].. ?? [facility], in keeping with [facility] guidance, no longer requires face masks for staff, patientsor visitors in most situations. Similiar to time spent indoors at other locations, there is the chance that you were exposed to repiratory viruses during your time with us (such as flu or COVID-19). If you develop symptoms concerning for a viral respiratory infection, please seek testing (and treatment if indicated) from your medical provider or home test kit. ?? You can view and manage your care through the patient portal or by using a health care rasheed of your choosing. [employer] is a website that allows you to securely view your medical information including your hospital discharge summary, office visit summaries, medications and follow-up visits. You can also request appointments, renew medications, and request access to your medical information using a health care rasheed of your choosing, or just ask a question. You are entitled to know the individuals who participated in your treatment. This information is available within your medical record and will be provided upon your request. You can enroll at [email or web address] or register d uring your next office visit. You have been discharged from [facility], Patient Care Unit: D3B??. If you have any questions regarding these instructions, including results of studies pending, afteryou leave, please call us and we will be happy to assist you 16/10. [facility] Your Care Team Attending Physician Connie Young MD?? Consulting Providers Connie Young MD?? Discharging Providers Connie Young MD Reason for Your Visit Recently dx with seizure condition. since then has had 4 seizures but today had 4 witnessed tonic clonic seizures lasting about 3-5 mins. By time ems arrived, seizure activity stopped. Did have a fall with stiking ashley, has lac to R eye. on ASA. aaox4.?? Your Diagnosis BPH (benign prostatic hyperplasia) Hypertension Hyperlipidemia YARELI (obstructive sleep apnea) Hypothyroidism Prolactin secreting pituitary adenoma CAD (coronary artery disease) Bradycardia Seizure Tests Performed Below is a partial list of the tests performed during your hospitalization. You may have had other tests and procedures not included in this list. Please discuss all test results with your provider. Amphetamine Urine Screen Barbiturate Urine Screen Basic Metabolic Panel Benzodiazepine Urine Screen Cannabinoid Urine Screen CBC w/ Differential Cocaine Urine Screen COVID-19, RSV, and Flu A/B, Rapid PCR FREE T4 GLUCOSE POC High??Sensitivity??Troponin T INR Lactate Level Levetiracetam Level Magnesium Level Opiate Screen Urine TSH with T4 Reflex (Adults Only) Urinalysis w/hold for Urine Culture CT Cervical Spine W/O Contrast CT Head/Brain W/O Contrast XR Chest 2 Views Frontal and Lat Add On Lab Order?? Amphetamine Urine Screen?? Barbiturate Urine Screen?? Basic Metabolic Panel?? Benzodiazepine Urine Screen?? CBC w/ Differential?? COVID-19, RSV, and Flu A/B, Rapid PCR?? CT Cervical Spine W/O Contrast?? CT Head/Brain W/O Contrast?? Cannabinoid Urine Screen?? Cocaine Urine Screen?? Free T4?? Glucose POC?? High??Sensitivity??Troponin T?? INR?? Lactic Acid Level (Lactate Level)?? Levetiracetam Level?? Magnesium Level?? Opiate Screen Urine?? TSH with T4 Reflex (Adults Only)?? Urinalysis w/hold for Urine Culture?? Chest 2 Views Frontal and Lat (XR Chest 2 Views Frontal and Lat)?? Primary Care Provider Nicolle Bernard MD? Advance Directive Health Care Proxy on File Yes - Health Care Proxy Discharge Vitals Temperature: 98.5 DegF Height: 180 cm Pulse Rate: 66 bpm Weight: 98.5 kg Respiratory Rate: 17 br/min Body Mass Index:??30.4 kg/m2??Critical Systolic Blood Pressure:??148 mm Hg??High Body surface area: 2.22 Diastolic Blood Pressure: 69 mm Hg ?? Oxygen Saturation: 97 % ?? Studies Pending All studies ordered during this hospital stay have been completed unless listed below. Please discuss all pending results with your provider listed above in these instructions. ?? Add On Lab Order?? What to do next Instructions From Your Doctor Please continue taking Keppra extended release?? 1500 mg daily at bedtime.?Please??do not take Metoprolol until seen by?? your veneer production machine operator.? Orders? 07/21/24 9:22:00 EDT?? Prescriptions??, ??07/21/24 9:22:00 EDT?? You Need to Schedule the Following Appointments Follow Up with??Nicolle Bernard MD When:??Within 1 week Why: pl call to schedule follow up?? Where: [address] [place] [address] [address] [facility] [place] [address]- Discharge Medications HARMONY MCCALL JR :1940 Visit Date:07/19/2024 Medications: Please continue your medications until treatment is completed or stopped by your provider. Medications not listed below should be discontinued. Discuss any questions related to medications with your provider. What How Much When Instructions Next Dose Changed levETIRAcetam (Keppra XR 500 mg oral tablet, extended release) 3 tab(s) Oral Daily plesae take ??total 1500 mg extended release daily at bedtime starting from tonight ?? 07/21/24 PM Unchanged Aspirin (aspirin 81 mg oral delayed release tablet) 81 Milligram Oral Daily Duration: 30 Days 07/22/24 AM Unchanged Bromocriptine (bromocriptine 2.5 mg oral tablet) 2 tab(s) Oral Daily at Bedtime 07/21/24 PM Unchanged Cyanocobalamin (Vitamin B12) 1,000 Microgram Oral Daily 07/22/24 AM Unchanged Finasteride (finasteride 5 mg oral tablet) 1 tab(s) Oral Daily 07/22/24 AM Unchanged Levothyroxine (levothyroxine 0.1 mg oral tablet) 1 tab(s) Oral Daily 07/22/24 AM Unchanged Losartan (losartan 100 mg oral tablet) 1 tab(s) Oral Daily 07/22/24 AM Unchanged Meloxicam (meloxicam 15 mg oral tablet) 1 tab(s) Oral Daily 07/22/24 AM Unchanged Pyridoxine (Vitamin B6) 50 Milligram Oral Twice a day 07/21/24 PM Unchanged Rosuvastatin (rosuvastatin 20 mg oral tablet) 1 tab(s) Oral Daily 07/22/24 AM Unchanged Tamsulosin (tamsulosin 0.4 mg oral capsule) 1 capsule Oral Daily 07/22/24 AM ?? What How Much When Comments Stop Taking Metoprolol (Metoprolol Succinate ER 50 mg oral tablet, extended release) 1 tab(s) Oral Daily Prescription Given During Visit No new medications prescribed at time of discharge.?? Laboratory Results Below is a partial list of the most recent Laboratory test results done prior to this discharge. You may have had other tests and procedures not included in this list. Please discuss all test resultswith your provider. Est Creatinine Clearance - 64.69 mL/min (07/19/2024) Amphetamine Urine Screen (07/19/2024) ???Amphetamine Screen, Urine - NONE DETECTED Barbiturate Urine Screen (07/19/2024) ???Barbiturate Screen, Urine - NONE DETECTED Basic Metabolic Panel (07/19/2024) ???Sodium - 142 mmol/L???Potassium - 3.9 mmol/L???Chloride - 107 mmol/L???Bicarbonate Level - 27 mmol/L???Anion Gap - 8 mmol/L???Glucose Level - 96 mg/dL???BUN - 19 mg/dL???Creatinine-Blood - 0.95 mg/dL???Estimated GFR Creatinine - 80 ML/MIN/1.73 M2???Calcium - 9.8 mg/dL Benzodiazepine Urine Screen (07/19/2024) ???Benzodiazepine Screen, Urine - NONE DETECTED Cannabinoid Urine Screen (07/19/2024) ???Cannabinoid Screen, Urine - NONE DETECTED CBC w/ Differential (07/19/2024) ???WBC - 10.0 k/mm3???RBC - 5.14 m/mm3???Hgb - 15.9 Gm/dL???Hct - 47.4 %???MCV - 92.2 femtoliters???MCH - 30.9 pg???MCHC - 33.5 Gm/dL???Platelet Count - 157 k/mm3???RDW-SD - 45.0 femtoliters???MPV - 9.1 femtoliters???Nucleated RBC (Automated) - 0.0 #/100 WBC'S???Abs. NRBC - 0.0 k/mm3???Abs. Neut - 7.1 k/mm3???Abs. Lymph - 1.9 k/mm3???Abs. [place] - 0.8 k/mm3???Abs. Eo - 0.2 k/mm3???Abs. Baso - 0.1 k/mm3???Neut % - 70.8 %???Lymph % - 18.6 %???[place] % - 7.9 %???Eos % - 1.7 %???Baso % - 0.7 %???Imm Gran - 0.3 %???Abs. Imm Gran - 0.0 k/mm3 Cocaine Urine Screen (07/19/2024) ???Cocaine Metabolite Screen, Urine - NONE DETECTED COVID-19, RSV, and Flu A/B, Rapid PCR (07/19/2024) ???Influenza A PCR - NEGATIVE???Influenza B PCR - NEGATIVE???RSV PCR - NEGATIVE???COVID-19 PCR Specimen Source - NASAL???COVID-19 PCR Result - NEGATIVE FREE T4 (07/19/2024) ???Free T4 - 1.67 ng/dL GLUCOSE POC (07/20/2024) ???Glucose, POC - 126 mg/dL High??Sensitivity??Troponin T (07/19/2024) ???High Sensitivity Troponin (HSTnT) - 25 ng/L INR (07/19/2024) ???INR - 1.1???Protime (PT) - 11.2 seconds Lactate Level (07/19/2024) ???Lactate - 1.9 mmol/L Levetiracetam Level (07/19/2024) ???Levetiracetam Level - 40.90 mg/L Magnesium Level (07/19/2024) ???Magnesium - 2.3 mg/dL Opiate Screen Urine (07/19/2024) ???Opiate Screen, Urine - NONE DETECTED TSH with T4 Reflex (Adults Only) (07/19/2024) ???TSH - 0.38 uIU/mL Urinalysis w/hold for Urine Culture (07/19/2024) ???Appear/Color, Urine - LIGHT YELLOW???Specific [place], Urine - 1.015???pH, Urine - 8.0???Albumin, Urine - NEGATIVE???Glucose, Urine - NEGATIVE???Ketones, Urine - NEGATIVE???Bilirubin, Urine - NEGATIVE???Hemoglobin, Urine - NEGATIVE???Nitrite, Urine - NEGATIVE???Leukocyte, Urine - NEGATIVE???Urobi linogen - NORMAL? ?WBC's, Urine - 1 /HPF? ?RBC's, Urine - 1 /HPF? ?Squamous Epith - <1 /HPF? ?Amorphous Crystals - MODERATE???Hold Urine Culture - Testing available 48 hours from time of collection. You will be contacted within 72 hours with your results. Allergies (NKA means No Known Allergies) morphine Problems Active Problems??(1) Obese class I?? Education Materials Below is the list of Educational Leaflet Providered with your Discharge Instructions. Valuables and Belongings I fully understand and agree that [facility] accepts no responsibility for all my personal property including clothing, toilet articles, radios, jewelry, dentures, hearing aids, rings, money, or any other property that is in my possession or is brought to me after admission. I understand certain valuables may be placed in a hospital safe for a short period of time. I understand that the hospital is not liable for loss or damage due to accident, fire, or other natural occurrence while said property is in the safe. I accept full responsibility for any personal property that I keep with me, and will not hold the hospital responsible in case of loss or disappearance. I acknowledge that i have been encouraged to send valuables and belongings home. ?? Date for Pt to Sign Valuables/Belongings: 07/19/24 15:19:00 ?? Other Discharge Information ? Pulmonary Rehab Status?? Pulmonary Rehab Discharge Status?? Respiratory Rate: 17 br/min ? Common Emergency Awareness Tips IS IT A STROKE? Act FAST and Check for these signs: FACE Does the face look uneven? ARM Does one arm drift down? SPEECH Does their speech sound strange? TIME Call at any sign of stroke ?? Heart Attack Signs Chest discomfort: Most heart attacks involve discomfort in the center of the chest and lasts more than a few minutes, or goes away and comes back. It can feel like uncomfortable pressure, squeezing, fullness or pain. Discomfort in upper body: Symptoms can include pain or discomfort in one or both arms, back, neck, jaw or stomach. Shortness of breath: With or without discomfort. Other signs: Breaking out in a cold sweat, nausea, or lightheaded. Remember, MINUTES DO MATTER. If you experience any of these heart attack warning signs, call to get immediate medical attention! ?? Smoking can increase your chances of developing chronic health problems and can cause harmful effects to other family members in your house. If you smoke, you are strongly encouraged to quit. Please call [facility] [employer] Link at [phone] or [phone] ([phone]) or log in to [email or web address] for referrals to smoking cessation programs. ?? 947 Suicide & Crisis Lifeline is available 16/10 if you or someone you know needs to find a reason to keep living. By calling 903 you'll be connected to a skilled, trained counselor at a crisis center in your area. INPATIENT DISCHARGE INSTRUCTIONS SIGNATURE PAGE HARMONY MCCALL JR Location:[facility] Registration Date and Time:07/19/2024 08:56 EDT Primary Care Physician: Marco Antonio MAYFIELD , Nicolle Gutierrez, Attending Physician: Connie Young MD I HARMONY MCCALL JR, have received the above patient education materials/instructions and have verbalized understanding. If ambulance or transport services are being used I further acknowledge beinggiven a choice of service. ?? If you need to contact me, please call me at this number: . Patient/Glass Block Bender Name: Patient/Glass Block Bender Signature: Relationship to Patient: Witness Name/Signature: Date: Patient Care team information Care Team Personnel Name: Darek Castro RN Position: S RN Member Role: Primary Care Nurse Name: Carlos Manzanares RN Position: S RN Member Role: Primary Care Nurse Name: Matt Brown RN Position: S RN Member Role: Primary Care Nurse Name: Marco Antonio MAYFIELD , Nicolle Gutierrez Position: S Physician - Neurology Member Role: PCP [facility] [address] [facility] [place] [id number] Telecom: Name: Debo Emery RN Position: S RN Member Role: Primary Care Nurse Name: Yogesh Treviño Position: S RN Member Role: Primary Care Nurse Care Team Related Persons Name: CAROLE MCCALL Name: GELA SALINAS Insurance Providers Guarantor name: HARMONY MCCALL Health Plan Information #: 2 Payer: [facility] Member Number: [id number] Policy Number: NA Group Number: [id number] Health Plan Information #: 1 Payer: MEDICARE PART B OUTPT Member Number: [id number] Policy Number: NA Group Number: [id number]
--- OUTSIDE RECORDS SUMMARY | 2024-07-25 09:35 | XMS_ITS | Encounter Summary ---
Author Name [place] Organization [place] Address [address] [place] [address] Care Team Providers Care Concierge Name Role Phone LEN MENDOZA Primary Care [...] PART B Sep 23, 2014 PART B [id number] [phone] [id number] HARMONY MCCALL JR PATIENT MEDICARE (WNR) MEDICARE (M) PART A July 25, 2007 PART A [id number] HARMONY MCCALL JR PATIENT MEDICARE (WNR) MEDICARE (M) PART B July 25, 2007 PART B [id number] HARMONY MCCALL JR PATIENT MEDICARE (WNR) MEDICARE (M) PART A July 25, 2007 PART A [id number] [phone] [id number] HARMONY MCCALL JR PATIENT [employer] (OPT/PROF ) [facility] [place] * Jan 24, 2015 [id number] CAROLE MCCALL SPOUSE Selected Encounter This [...] PRIMARY Lack of physical exercise JANIE LAZCANO [place] [facility] [place] [facility] [...] PM VA-TOBACCO QUIT 15 YRS OR MORE [place] [facility] [facility] [...] AM VA-TOBACCO QUIT 15 YRS OR MORE [facility] Apr 04, 2017 12:30 PM QUIT TOBACCO USE > 7 YEARS AGO [facility] Apr 05, 2016 01:02 PM QUIT TOBACCO USE > 7 YEARS AGO quit in 1984 [facility] Encounter Notes: All associated encounter [...] verbally aware of Telehealth Group [place] practices. [place] Location: address on record unless specified below. Emergency Contact: on record unless specified below. participated remotely in the [facility] exercise program today through [place] [employer]. Activities were focused on progression of their individual exercise prescription (cardiorespiratory fitness training, strength training, etc.) and group-based exercise sessions to include, but not limited to: flexibility training, balance training & functional circuit training. Exercise participation was supervised remotely by [facility] staff and any questions/concerns were addressed with the patient. Modifications were made to programming as appropriate to suit Veterans individual needs, preferences, and whole health concerns. /es/ Janie Lazcano PT,DPT PHYSICAL THERAPIST Signed: 11/02/2023 10:44 JANIE LAZCANO [facility]
--- OUTSIDE RECORDS SUMMARY | 2024-07-25 09:36 | XMS_ITS | Encounter Summary ---
Author Name [place] Organization [place] Address [address] [place] [address] Care Team Providers Care Print Cutter Name Role Phone LEN MENDOZA Primary [...] PART B Sep 23, 2014 PART B [id number] [phone] 2 HARMONY MCCALL JR PATIENT MEDICARE (WNR) MEDICARE (M) PART A July 25, 2007 PART A [id number] HARMONY MCCALL JR PATIENT MEDICARE (WNR) MEDICARE (M) PART B July 25, 2007 PART B [id number] HARMONY MCCALL JR PATIENT MEDICARE (WNR) MEDICARE (M) PART A July 25, 2007 PART A [id number] [phone] [id number] HARMONY MCCALL JR PATIENT [employer] (OPT/PROF ) [facility] [place] * Jan 24, 2015 [id number] [phone] CAROLE MCCALL SPOUSE Selected Encounter This section includes the information on record at [place] for the Encounter. Date/Time Encounter Type Encounter Description Reason Provider Source Dec 06, 2023 11:00 AM GROUP BEHAVE COUNS 2-10 WEIGHT MGMT & MOVE! PROG - GRP ICD-10-CM E66.09 Other obesity due to excess calories MIGUEL KRAMER Erin Encounter Template Text not used by [place] [...] AMBULATORY - NONE [facility] [place] [facility] Dec 11, 2023 01:00 PM AMBULATORY - MEDICINE [facility] [place] [facility] Dec 13, 2023 11:00 AM AMBULATORY - NONE [place] Dec 20, 2023 11:00 AM AMBULATORY - NONE [place] Dec 25, 2023 10:00 AM AMBULATORY - NONE [facility] [place] [facility] Dec 27, 2023 11:00 AM AMBULATORY - NONE [place] Jan 03, 2024 11:00 AM AMBULATORY - NONE [place] Jan 08, 2024 10:00 AM AMBULATORY - NONE [facility] [place] [facility] Jan 10, 2024 11:00 AM AMBULATORY - NONE [place] Jan 17, 2024 11:00 AM AMBULATORY - NONE [place] Jan 21, 2024 11:00 AM AMBULATORY - MEDICINE [facility] [place] [facility] Jan 22, 2024 11:00 AM AMBULATORY - MEDICINE [facility] Jan 22, 2024 11:00 AM AMBULATORY - NONE [facility] [place] [place] [facility] Jan 24, 2024 11:00 AM AMBULATORY - NONE [place] Jan 31, 2024 11:00 AM AMBULATORY - NONE [place] Feb 07, 2024 11:00 AM AMBULATORY - NONE [place] Feb 14, 2024 11:00 AM AMBULATORY - NONE [place] Feb 26, 2024 08:30 AM AMBULATORY - NONE [facility] [place] [facility] Feb 26, 2024 08:30 AM AMBULATORY - MEDICINE [place] [facility] Feb 28, 2024 11:00 AM [...] DATE: DEC 06, 2023@13:32:30 AUTHOR: SANTIAGO KRAMER COSIGNER: URGENCY: STATUS: COMPLETED [place] participated in MOVE! Group Counseling via [facility] on December 06, 2023. The [place] was provided with information on [facility] and has given verbal consent to use group VV services for their healthcare. The copy of the Group Telehealth Agreement has been mailed to the [place]. The Veterans location/emergency contact number were confirmed. The Emergency Call Relay Center (E911) was available. The visit was locked for security and privacy. identified with 2 identifiers: [ ] Full Name [ ] Address Veterans attended the [facility] MOVE! group session on this date. [...] for the next week. The next [facility] MOVE! group meeting will be held on November @ 11:00am. [place]'s reported weight was 211.0 lbs. and gained 0.5 pounds since last group attended. Dx: e66.09 z68.30 The session lasted for 1 hour in duration. /johanny/ SANTIAGO KRAMER STAFF DIETITIAN Signed: 12/06/2023 14:04 Receipt Acknowledged By: 12/14/2023 17:58 /johanny/ GORDON PATHAK, Ph.D. CLINICAL PSYCHOLOGIST SANTIAGO KRAMERFIELD
--- OUTSIDE RECORDS SUMMARY | 2024-07-25 09:36 | XMS_ITS | Encounter Summary ---
Author Name [facility] [place] Organization [place] Address [address] [place] [address] Care Team Providers Care Filenet Architect Name Role Phone LEN MENDOZA Primary Care [...] PART B Sep 23, 2014 PART B [id number] HARMONY MCCALL JR PATIENT MEDICARE (WNR) MEDICARE (M) PART A July 25, 2007 PART A [id number] HARMONY MCCALL JR PATIENT MEDICARE (WNR) MEDICARE (M) PART B July 25, 2007 PART B [id number] HARMONY MCCALL JR PATIENT MEDICARE (WNR) MEDICARE (M) PART A July 25, 2007 PART A [id number] HARMONY MCCALL JR PATIENT [employer] (OPT/PROF ) [facility] * Jan 24, 2015 [id number] CAROLE MCCALL SPOUSE Selected Encounter This section includes the information on record at [place] for the Encounter. Date/Time Encounter Type Encounter Description Reason Provider Source Apr 10, 2024 11:00 AM HLTH BHV IVNTJ GRP EA ADDL WEIGHT MGMT & MOVE! PROG - GRP ICD-10-CM Z68.30 Body mass index [BMI] 30.0-30.9, adult GORDON PATHAK [facility] Encounter Template Text not used by [place] Assessments - Encounter Diagnoses This section includes the primary and secondary diagnoses documented for the Encounter. Date/Time Primary/Secondary Diagnosis Diagnosis Name Provider Source Apr 10, 2024 06:06 PM PRIMARY Body mass index [BMI] 30.0-30.9, adult GORDON APTHAK Apr 10, 2024 06:06 PM SECONDARY Obesity, [...] Appointment Type Appointme nt Facility Name Apr 24, 2024 11:00 AM AMBULATORY - NONE [place] Apr 29, 2024 10:00 AM [facility] May 01, 2024 11:00 AM AMBULATORY - NONE [place] Jun 24, 2024 10:00 AM [facility] [place] [facility] Jun 26, 2024 11[facility]00 AM AMBULATORY - NONE [place] Jul 03, 2024 11:00 AM AMBULATORY - NONE [place] Jul 10, 2024 11:00 AM AMBULATORY - NONE [place] Jul 17, 2024 11:00 AM AMBULATORY - NONE [place] Oct 07, 2024 10:00 AM [facility] Vital Signs: All taken on the [...] DATE: APR 10, 2024@18:00:18 AUTHOR: GORDON PATHAK COSIGNER: URGENCY: STATUS: COMPLETED [place] participated in MOVE! Group Counseling via [facility] on April 10, 2024. The was provided with information on [facility] and has given verbal consent to use group VV services for their healthcare. The copy of the Group Telehealth Agreement has been mailed to the [place]. The Veterans location/emergency contact number were confirmed. The Emergency Call Relay Center (E911) was available. The visit was locked for security and privacy. identified with 2 identifiers: [ ] Full Name [ ] Address Veterans attended the [facility] MOVE! group session on this date. MOVE! [...] strategies for the upcoming week. The next [facility] MOVE! group meeting will be held on [...]
--- OUTSIDE RECORDS SUMMARY | 2024-07-25 09:36 | XMS_ITS | Encounter Summary ---
Author Name [place] Organization [place] Address [address] [place] [address] Care Team Providers Care Database Marketing Manager Name Role Phone LEN MENDOZA Primary [...] PART B Sep 23, 2014 PART B [id number] HARMONY MCCALL JR PATIENT MEDICARE (WNR) MEDICARE (M) PART A July 25, 2007 PART A [id number] HARMONY MCCALL JR PATIENT MEDICARE (WNR) MEDICARE (M) PART B July 25, 2007 PART B [id number] HARMONY MCCALL JR PATIENT MEDICARE (WNR) MEDICARE (M) PART A July 25, 2007 PART A [id number] [phone] [id number] HARMONY MCCALL JR PATIENT [employer] (OPT/PROF ) [facility] * Jan 24, 2015 [id number] [phone] CAROLE MCCALL SPOUSE Selected Encounter This [...] 29, 2024 10:00 AM [facility] May 01, 2024 11:00 AM AMBULATORY - NONE [place] Jun 24, 2024 10:00 AM [facility]UL[facility]ORY - NONE [facility] [facility] Jun 26, 2024 11:00 AM AMBULATORY [...] SANTIAGO KRAMER EXP COSIGNER: URGENCY: STATUS: COMPLETED [place] participated in MOVE! Group Counseling via [facility] on March 06, 2024. The was provided with information on [facility] and has given verbal consent to use group VVC services for their healthcare. The copy of the Group Telehealth Agreement has been mailed to the [place]. The Veterans location/emergency contact number were confirmed. The Emergency Call Relay Center (E911) was available. The visit was locked for security and privacy. identified with 2 identifiers: [ ] Full Name [ ] Address Veterans attended the [facility] MOVE! group session on this date. MOVE! is a program designed to provide education about weight management skills to overweight and obese Veterans. Group members combined to lose 6.9 pounds since their last attended group. Group members began by sharing their past week. Facilitators introduced a civil engineering intern who presented on the nutrition facts and recommendations concerning nuts and seeds. Group members thanked the advertising internship for the presentation. Veterans shared their strategies for the upcoming week. The next [facility] MOVE! group meeting will be held on February @ 11:00am. [place]'s reported weight was 213.2 lbs. and lost 1.4 pounds since last group attended. Dx: e66.811 z68.30 The session lasted for 1 hour in duration. /johanny/ SANTIAGO KRAMER STAFF DIETITIAN Signed: 03/06/2024 15:45 Receipt Acknowledged By: 03/06/2024 16:21 /johanny/ GRODON PATHAK, Ph.D. CLINICAL PSYCHOLOGIST ASNTIAGO KRAMERFIELD
--- OUTSIDE RECORDS SUMMARY | 2024-07-25 09:36 | XMS_ITS ---
Author Name Department [place] Organization [place] Address [address] [place] [address] Care Team Providers Care Ese Teacher Name Role Phone LUCAS STRATTON [facility] Insurance Providers: All historical and [...] PART B Sep 23, 2014 PART B [id number] HARMONY MCCALL JR PATIENT MEDICARE (WNR) MEDICARE (M) PART A July 25, 2007 PART A [id number] [phone] HARMONY MCCALL JR PATIENT MEDICARE (WNR) MEDICARE (M) PART B July 25, 2007 PART B [id number] [phone] HARMONY MCCALL JR PATIENT MEDICARE (WNR) MEDICARE (M) PART A July 25, 2007 PART A [id number] HARMONY MCCALL JR PATIENT WELLPOINT MEDICAL EXPENSE (OPT/PROF ) [facility] * Jan 24, 2015 [id number] 18 CAROLE MCCALL SPOUSE Selected Encounter This section includes the information on record at [place] for the Encounter. Date/Time Encounter Type Encounter Description Reason Pro vider Source Jul 22, 2024 10:59 AM Outpatient Encounter TELEPHONE PRIMARY CARE IHE Encounter Template Text not used by [place] Plan of Treatment: Future Appointments (+ 6 [...] 20 appointments. The data comes from all [facility] facilities. Appointment Date/Time Appointment Type Appointme nt Facility Name July 24, 2024 11:00 AM AMBULATORY - NONE [facility] July 25, 2024 03:30 PM AMBULATORY - MEDICINE [facility] Oct 07, 2024 10:00 AM AMBULATORY - MEDICINE [facility] Active, Pending, and Scheduled Orders This section includes a listing of several types of active, pending, and scheduled orders, including clinic medications orders, diagnostic test orders, procedure orders and consult orders; where the start date of the order is 45 days before the date of the Encounter or 45 days after the date of theEncounter. The data comes from all [facility]. Test Date/Time Test Type Test Details Facility Name Jul 10, 2024 12:00 AM Laboratory - Chemi stry Order VITAMIN B12 BLOOD (SST-SERUM) [facility] Jul 10, 2024 12:00 AM Laboratory - Chemi stry Order IRON & TIBC PANEL BLOOD (SST-SERUM) [facility] Jul 10, 2024 12:00 AM Laboratory - Chemi stry Order CBC BLOOD (LAV-BLOOD) [facility] Jul 10, 2024 12:00 AM Laboratory - Chemi stry Order BASIC METABOLIC PANEL (non-fasting) BLOOD (SST-SERUM) [facility] Jul 10, 2024 12:00 AM Laboratory - Chemi stry Order LIPID PANEL, NON FASTING BLOOD (SST-SERUM) [facility] [place] [facility] Jul 10, 2024 12:00 AM Laboratory - Chemi stry Order LIVER FUNCTION BLOOD (SST-SERUM) [facility] [place] [facility] [place] [facility] Jul 10, 2024 12:00 AM Laboratory - Chemi stry Order TSH BLOOD (SST-SERUM) [facility] [place] [facility] [place] [facility] Jul 10, 2024 12:00 AM Laboratory - Chemi stry Order FERRITIN [facility] [place] [facility] Social History: Smoking Status (Most [...] 21, 2024 11:00 AM VA-TOBACCO FORMER USER [place] [facility] [facility] [...] YRS OR MORE [place] [facility] [place] [facility] Jan 26, 2023 01:30 PM VA-TOBACCO FORMER USER [place] [facility] [facility] Jan 26, 2023 01:30 PM [...] 04, 2019 02:57 PM VA-TOBACCO NEVER USED [facility] Mar 14, 2018 11:23 AM VA-TOBACCO FORMER USER [facility] Mar 14, 2018 11:23 AM VA-TOBACCO QUIT 15 YRS OR MORE [facility] Apr 04, 2017 12:30 PM QUIT TOBACCO USE > 7 YEARS AGO [facility] Apr 05, 2016 01:02 PM QUIT TOBACCO USE > 7 YEARS AGO quit in 1984 [facility] Encounter Notes: All associated encounter notes This section contains the clinical notes associated to the Encounter. Date/Time Encounter Note(s) Provider Source Jul 22, 2024 10:59 AM NONVA NOTE: LOCAL TITLE: NON-VA HOSPITALIZATIONS/ER STANDARD TITLE: NONVA NOTE DATE OF NOTE: JUL 22, 2024@10:59 ENTRY DATE: JUL 22, 2024@10:59:23 AUTHOR: BALDEV BANKS COSIGNER: URGENCY: STATUS: COMPLETED Taken from [facility] Portal: Discharge Summary Admit: 07/19/24 D/C: 07/21/24 Hospital Course: The patient is an 83 year old male with history of YARELI on CPAP, complex partial seizure, non-obstructive CAD, hypertension, hypothyroidism, BPH, OA L. Knee, gynecomastia, ?pituitary prolactinoma who presents to the emergency department for seizures, fall with head strike. Patient states that he was feeling warm which is his seizure aura, attempted to stand up and walk which usually makes him feel better when he fell and hit his forehead. [...] arm as well. They called for an ambulance and pt was brougght to ER. Pt was given 2000mg of IV Keppra and admitted for further management. # Seizure: Pt is a known seizure disorder and his home regimen included Keppra XR 1000mg daily at bedtime. He tellm that he could not tolrate the short acting keppra as it was making him sleepy. -Neurology consulted -Pt was placed on Keppra 750mg Bid in the ER No further episode of seizure Has been seen by neurology, appreciate recommendation Neurology recommends continue Keppra at currenbt dose until seen by his primary neurologist Patient is currently taking Keppra 1500 mg extended release at bedtime which he will continue plan was discussed with patient and his daughter was at bedside # Bradycardia: Patient states his pulse was in the 30s while at home. Here HR has been 42-71. -He has been taking metoprolol 50 mg XL daily. Will continue to hold metoprolol on discharge Patient will follow-up with his high school home economics teacher He will benefit from heart monitor as outpatient # BPH (benign prostatic hyperplasia) (N40.0): -Continue finasteride and tamsulosin. # Hypertension, Hyperlipidemia, CAD: Continue ASA metoprolol, losartan and rosuvastatin. # YARELI: CPAP. 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 # Hypothyroidism: Continue home dose of levothyroxine. Discharge Medications: Aspirin 81mg Daily for 30 Days Bromocriptine 2.5mg, 2 tablet By Mouth Daily at bedtime Cyanocobalamin 1,000mcg Daily Finasteride 5mg Daily Levetiracetam 500mg, 3 tab(s) Daily Levothyroxine 0.1mg Daily Losartan 100mg Daily Meloxicam 15mg Daily Pyridoxine 50mg 2 times a day Rosuvastatin 20mg Daily Tamsulosin 0.4mg Daily D/C home PCP visit scheduled 07/25/24 /johanny/ BALDEV BANKS MSN, RN, CNL Primary Care RN Signed: 07/22/2024 11:05 Receipt Acknowledged By: 07/22/2024 11:46 /johanny/ Lucas Stratton DNP, PUBLIC HEALTH INFORMATICIAN-BC, CNL Primary Care Nurse Practitioner BALDEV BANKS [facility] [place]
--- OUTSIDE RECORDS SUMMARY | 2024-07-25 09:36 | XMS_ITS | Encounter Summary ---
Author Name Department of [place] Organization [place] Address [address] [place] [address] Care Team Providers Care Real Estate Asset Manager Name Role Phone LEN MENDOZA Primary [...] PART B Sep 23, 2014 PART B [id number] [id number] HARMONY MCCALL JR PATIENT MEDICARE (WNR) MEDICARE (M) PART A July 25, 2007 PART A [id number] [id number] HARMONY MCCALL JR PATIENT MEDICARE (WNR) MEDICARE (M) PART B July 25, 2007 PART B [id number] [id number] HARMONY MCCALL JR PATIENT MEDICARE (WNR) MEDICARE (M) PART A July 25, 2007 PART A [id number] HARMONY MCCALL JR PATIENT WELLPOINT MEDICAL EXPENSE (OPT/PROF ) [facility] * Jan 24, 2015 [id number] 18 CAROLE MCCALL SPOUSE Selected Encounter This section includes the information on record at [place] for the Encounter. Date/Time Encounter Type Encounter Description Reason Provider Source Sep 07, 2023 11:02 AM EXERCISE CLASS HEALTH/WELLBEING [facility]VS ICD-10-CM Z72.3 Lack of physical exercise JANIE LAZCANO [facility] Encounter Template Text not used by [place] Assessments - Encounter Diagnoses This section includes the primary and secondary diagnoses documented for the Encounter. Date/Time Primary/Secondary Diagnosis Diagnosis Name Provider Source Sep 07, 2023 11:22 AM PRIMARY Lack of physical exercise [facility] Plan of Treatment: Future Appointments [...] 25, 2023 11:30 AM [facility] [place] [facility] Oct 04, 2023 11:00 AM AMBULATORY - NONE [place] Oct 11, 2023 11:00 AM AMBULATORY - NONE [place] [facility] Oct 18, 2023 11:00 AM AMBULATORY - NONE [place] Oct 23, 2023 09:00 AM [facility] [place] [facility] Oct 25, 2023 11:00 AM [...] 03, 2023 02:00 PM AMBULATORY - NONE [place] [facility] [place] [facility] Dec 06, 2023 11:00 AM AMBULATORY - NONE [place] Dec 11, 2023 10:00 AM AMBULATORY - NONE [facility] [place] [facility] Dec 11, 2023 01:00 PM AMBULATORY - MEDICINE [facility] [place] [facility] Dec 13, 2023 11:00 AM AMBULATORY - NONE [place] Dec 20, 2023 11:00 AM AMBULATORY - NONE [place] Dec 25, 2023 10:00 AM AMBULATORY - NONE [facility] [place] [facility] Social History: Smoking Status [...] VA-TOBACCO FORMER USER [facility] [place] [facility] Tobacco Use History This section includes a history of the smoking, or tobacco-related health factors, that were collected on or before the date of the Encounter. The data comes from the [place] facility where the Encounter took place. Date/Time Smoking Status/Tobacco Use Comment F acility Jan 26, 2023 01:30 PM VA-TOBACCO QUIT 15 YRS OR MORE [facility] [place] [facility] Jan 27, 2022 11:00 AM VA-TOBACCO FORMER USER [facility] [place] [facility] Jan 27, 2022 11:00 AM VA-TOBACCO QUIT 15 YRS OR MORE [facility] [facility] Sep 17, 2020 09:00 AM VA-TOBACCO FORMER USER [facility] [facility] Sep 17, 2020 09:00 AM VA-TOBACCO QUIT 15 YRS OR MORE [facility] [facility] Jun 04, 2019 02:57 PM VA-TOBACCO NEVER USED [facility] [facility] Mar 14, 2018 11:23 AM VA-TOBACCO FORMER USER [facility] [facility] Mar 14, 2018 11:23 AM VA-TOBACCO QUIT 15 YRS OR MORE [facility] [place] [facility] Apr 04, 2017 12:30 PM QUIT TOBACCO USE > 7 YEARS AGO [facility] Apr 05, 2016 01:02 PM QUIT TOBACCO USE > 7 YEARS AGO quit in 1984 [facility] Encounter Notes: All associated encounter [...] been made verbally aware of [facility] [place] practices. Morral's Location: address on record unless specified below. Emergency Contact: on record unless specified below. Morral participated remotely in the [facility] exercise program today through [place] Virtual Earth Science Laboratory Technician. Activities were focused on progression of their individual exercise prescription (cardiorespiratory fitness training, strength training, etc.) and group-based exercise sessions to include, but not limited to: flexibility training, balance training & functional circuit training. Exercise participation was supervised [facility] and any questions/concerns were addressed with the patient. Modifications were made to programming as appropriate to suit Veterans individual needs, preferences, and whole health concerns. /es/ Janie Lazcano PT,DPT PHYSICAL THERAPIST Signed: 09/07/2023 11:26 JANIE LAZCANO [facility]
--- OUTSIDE RECORDS SUMMARY | 2024-07-25 09:36 | XMS_ITS | Encounter Summary ---
Author Name Department of [place] Organization [place] Address [address] [place] [address] Care Team Providers Care Hospital Coder Name Role Phone LEN MENDOZA Primary [...] PART B Sep 23, 2014 PART B [id number] HARMONY MCCALL JR PATIENT MEDICARE (WNR) MEDICARE (M) PART A July 25, 2007 PART A [id number] HARMONY MCCALL JR PATIENT MEDICARE (WNR) MEDICARE (M) PART B July 25, 2007 PART B [id number] [id number] HARMONY MCCALL JR PATIENT MEDICARE (WNR) MEDICARE (M) PART A July 25, 2007 PART A [id number] [id number] HARMONY MCCALL JR PATIENT WELL[employer] MEDICAL EXPENSE (OPT/PROF ) [facility] * Jan 24, 2015 [id number] 18 CAROLE MCCALL SPOUSE Selected Encounter This [...] AM PRIMARY Sleep apnea, unspecified [facility] Plan of Treatment: Future Appointments (+ 6 [...] AMBULATORY - NONE [facility] [place] [facility] Dec 11, 2023 01:00 PM AMBULATORY - MEDICINE [facility] [place] [facility] Dec 13, 2023 11:00 AM AMBULATORY - NONE [place] Dec 20, 2023 11:00 AM AMBULATORY - NONE [place] Dec 25, 2023 10:00 AM AMBULATORY - NONE [facility] [place] [facility] Dec 27, 2023 11:00 AM AMBULATORY - NONE [place] Jan 03, 2024 11:00 AM AMBULATORY - NONE [place] Jan 08, 2024 10:00 AM AMBULATORY - NONE [facility] [place] [facility] Jan 10, 2024 11:00 AM AMBULATORY - NONE [place] Jan 17, 2024 11:00 AM AMBULATORY - NONE [place] Jan 21, 2024 11:00 AM AMBULATORY - MEDICINE [facility] [place] [facility] Jan 22, 2024 11:00 AM AMBULATORY - [place]ICINE [place] [facility] Jan 22, 2024 11:00 AM AMBULATORY - NONE [facility] [place] [facility] Jan 24, 2024 11:00 AM AMBULATORY - NONE [place] Jan 31, 2024 11:00 AM AMBULATORY - NONE [place] Feb 07, 2024 11:00 AM AMBULATORY - NONE [place] Feb 14, 2024 11:00 AM AMBULATORY - NONE [place] Feb 26, 2024 08:30 AM [facility]ONE [facility] Feb 26, 2024 08:30 AM AMBULATORY - MEDICINE [facility] Encounter Notes: All associated encounter notes This section contains the clinical notes associated to the Encounter. Date/Time Encounter Note(s) Provider Source Dec 03, 2023 02:29 PM RESPIRATORY THERAP Y NOTE: LOCAL TITLE: RESPIRATORY THERAPY NOTE(BLANK) STANDARD TITLE: RESPIRATORY THERAPY NOTE DATE OF NOTE: DEC 03, 2023@14:29 ENTRY DATE: DEC 03, 2023@14:29:59 AUTHOR: CURTIS PUCKETT COSIGNER: URGENCY: STATUS: COMPLETED diagnosed with sleep apnea seen for follow up regarding his APAP 5-20 cmH2O. We reviewed compliance data. He has been non-compliant using only 16/45 days. Haviland states he used his device 16 days then stopped and felt no different. He is aware his apnea is classified as mild. He also stated he had nights where the pressure went very high and the mask leaked. Likely caused by positional mask leak with further explanation. has also lost weight since initial testing and feels this may have reversed his sleep apnea. Radha was offered and is agreeable to [facility] Compliance Report Usage 10/23/2023 - 12/03/2023 [...] 42 hours AirSense 11 AutoSet Serial number [id number] Mode AutoSet Min Pressure 5 cmH2O Max [...] RESPIRATORY THERAPIST Signed: 12/03/2023 14:40 CURTIS PUCKETT [facility]
--- OUTSIDE RECORDS SUMMARY | 2024-07-25 09:36 | XMS_ITS | Encounter Summary ---
Author Name Department of Veter[place] Organization [place] Address [address] [place] [address] Care Team Providers Care Wildlife Refuge Specialist Name Role Phone LEN MENDOZA Primary [...] PART B Sep 23, 2014 PART B [id number] [phone] [id number] HARMONY MCCALL JR PATIENT MEDICARE (WNR) MEDICARE (M) PART A July 25, 2007 PART A [id number] [id number] HARMONY MCCALL JR PATIENT MEDICARE (WNR) MEDICARE (M) PART B July 25, 2007 PART B [id number] [id number] HARMONY MCCALL JR PATIENT MEDICARE (WNR) MEDICARE (M) PART A July 25, 2007 PART A [id number] [id number] HARMONY MCCALL JR PATIENT WELLPOINT MEDICAL EXPENSE (OPT/PROF ) [facility] * Jan 24, 2015 [id number] 18 CAROLE MCCALL SPOUSE Selected Encounter This section includes the information on record at [place] for the Encounter. Date/Time Encounter Type Encounter Description Reason Provider Source July 24, 2024 11:00 AM [facility] WEIGHT MGMT & MOVE! PROG - GRP ICD-10-CM Z68.30 Body mass index [BMI] 30.0-30.9, adult GORDON PATHAK [facility] Encounter Template Text not used by [place] Assessments - Encounter Diagnoses This section includes the primary and secondary diagnoses documented for the Encounter. Date/Time Primary/Secondary Diagnosis Diagnosis Name Provider Source July 24, 2024 07:15 PM PRIMARY Body mass index [BMI] 30.0-30.9, adult GORDON PATHAK July 24, 2024 07:15 PM SECONDARY Obesity, class 1 GORDON PATHAK Plan of Treatment: Future Appointments (+ 6 months) and Future Tests (+/- 45 days) The Plan of Treatment section includes future care activities for the patient [facility] [place] [facility]. This section includes future appointments and future orders which are active, pending or scheduled. Future Appointments This section includes appointments that were scheduled to occur 6 months from the date of the Encounter, up to a maximum of 20 appointments. The data comes from all [facility] facilities. Appointment Date/Time Appointment Type Appointme nt Facility Name July 25, 2024 03:30 PM AMBULATORY - MEDICINE [facility] Oct 07, 2024 10:00 AM AMBULATORY - MEDICINE [facility] Active, Pending, and Scheduled Orders This section includes a listing of several types of active, pending, and scheduled orders, including clinic medications orders, diagnostic test orders, procedure orders and consult orders; where the start date of the order is 45 days before the date of the Encounter or 45 days after the date of theEncounter. The data comes from all [facility]. Test Date/Time Test Type Test Details Facility Name Jul 10, 2024 12:00 AM Laboratory - Chemi stry Order VITAMIN B12 BLOOD (SST-SERUM) [facility] Jul 10, 2024 12:00 AM Laboratory - Chemi stry Order IRON & TIBC PANEL BLOOD (SST-SERUM) [facility] Jul 10, 2024 12:00 AM Laboratory - Chemi stry Order BASIC METABOLIC PANEL (non-fasting) BLOOD (SST-SERUM) [facility] Jul 10, 2024 12:00 AM Laboratory - Chemi stry Order LIPID PANEL, NON FASTING BLOOD (SST-SERUM) [facility] Jul 10, 2024 12:00 AM Laboratory - Chemi stry Order CBC BLOOD (LAV-BLOOD) [facility] Jul 10, 2024 12:00 AM Laboratory - Chemi stry Order LIVER FUNCTION BLOOD (SST-SERUM) [facility] Jul 10, 2024 12:00 AM Laboratory - Chemi stry Order TSH BLOOD (SST-SERUM) [facility] Jul 10, 2024 12:00 AM Laboratory - Chemi stry Order FERRITIN BLOOD (SST-SERUM) [facility] Vital Signs: All taken on the encounter date This section contains inpatient and outpatient Vital Signs collected on the date of the Encounter. Date/Time Temperature Pulse Blood Pressure Respiratory Rate SP02 Pain Height Weight Body Mass Index Source July 24, 2024 11:00 AM 213.9 33 [place] Encounter Notes: All associated encounter notes This section contains the clinical notes associated to the Encounter. Date/Time Encounter Note(s) Provider Source July 24, 2024 07:07 PM MOVE NOTE: LOCAL TITLE: WEIGHT MANAGEMENT/MOVE! OUTPATIENT GROUP NOTE STANDARD TITLE: MOVE NOTE DATE OF NOTE: JULY 24, 2024@19:07 ENTRY DATE: JULY 24, 2024@19:07:29 AUTHOR: GORDON PATHAK COSIGNER: URGENCY: STATUS: COMPLETED Clayton participated in MOVE! Group Counseling via VVC on July 24, 2024. The Clayton was provided with information on VVC and [...] Name [ ] Address Veterans attended the [facility] MOVE! group session on this date. MOVE! is a program designed to provide education about weight management skills to overweight and obese Veterans. Group members attended the first combined Support group on this date and their weight will serve as the baseline moving forward. Veterans began today's group discussion with introductions. This is the first week of the combined Support Group after merging the groups from the [facility] and [facility]. Additionally, some Veterans joined the support group for the very first time as new graduates of the initial 16 week MOVE group. Facilitators and Veterans all took time to introduce themselves and talked about their own personal goals for the future. Veterans shared how successful their journeys have been in the MOVE program to date and all expressed eagerness and optimism about how this group will continue to benefit them in their efforts to improve their health. Group members shared their plans for the coming week. The next [facility] MOVE! group meeting will be held on July @ 11:00am. 's reported weight was 213.9 lbs. and lost 0.1 pounds since last group attended. Dx: Obesity Class 1 BMI 30.0-30.9 The session lasted for 1 hour in duration. /johanny/ GORDON PATHAK, Ph.D. CLINICAL PSYCHOLOGIST Signed: 07/24/2024 19:36 Receipt Acknowledged By: * AWAITING SIGNATURE * RAMIRO NICKERSON * AWAITING SIGNATURE * SANTIAGO KRAMER MARK A [place]
--- OUTSIDE RECORDS SUMMARY | 2024-07-25 09:36 | XMS_ITS | Encounter Summary ---
Author Name [place] Address [address] [place] [address] Care Team Providers Care Homeowner Association Manager Name Role Phone LEN MENDOZA Primary [...] PART B Sep 23, 2014 PART B [id number] [id number] HARMONY MCCALL JR PATIENT MEDICARE (WNR) MEDICARE (M) PART A July 25, 2007 PART A [id number] [id number] HARMONY MCCALL JR PATIENT MEDICARE (WNR) MEDICARE (M) PART B July 25, 2007 PART B [id number] [id number] HARMONY MCCALL JR PATIENT MEDICARE (WNR) MEDICARE (M) PART A July 25, 2007 PART A [id number] [id number] HARMONY MCCALL JR PATIENT WELLPOINT MEDICAL EXPENSE (OPT/PROF ) [facility] * Jan 24, 2015 [id number] 18 CAROLE MCCALL SPOUSE Selected Encounter This [...] Obstructive sleep apnea (adult) (pediatric) ARELIS NUNO [facility] Plan of Treatment: Future Appointments (+ [...] 26, 2024 08:30 AM AMBULATORY - NONE [facility] Feb 26, 2024 08:30 AM [...] 29, 2024 10:00 AM AMBULATORY - NONE [facility] May 01, 2024 11:00 AM AMBULATORY - NONE [place] Jun 24, 2024 10:00 AM AMBULATORY - NONE [facility] [place] [facility] Jun 26, 2024 11:00 AM AMBULATORY - [...] number ( ) current as posted in RealD demographics -Pt is located at home -Safety and emergency procedures addressed during visit -Environment surveyed for participants -VVC conference locked identified with 2 identifiers: [X] Full Name [X] Date of [ ] VA ID Card Reason for referral: [place] has many questions regarding his sleep apnea, [...] of recording time with sufficient technical quality. MIRACLE MCCALLJUAN RAMON 10/20/2023 - 11/18/2023 : 1940 Age: 83 years [employer] Compliance Report Compliance Payor [facility] Usage [...] 42 hours AirSense 11 AutoSet Serial number [id number] Mode AutoSet Min Pressure 5 cmH2O Max [...] 5-10 cmH20 - provided video for reinforcement (https://[email or web address]/watch?v=[email or web address]) - if no improvement in daytime sleepiness after 1 month of consistent use, he may discontinue CPAP RTC in 1 months. Total time spent during this encounter 45 min. /johanny/ ARELIS NUNO MD ATTENDING Signed: 01/22/2024 12:18 ARELIS NUNO [facility]
--- OUTSIDE RECORDS SUMMARY | 2024-07-25 09:36 | XMS_ITS | Encounter Summary ---
Author Name [facility] [place] Organization [place] Address [address] [place] [address] Care Team Providers Care Kitchen Runner Name Role Phone LEN MENDOZA Primary Care [...] PART B Sep 23, 2014 PART B [id number] [id number] [phone] [id number] HARMONY MCCALL JR PATIENT MEDICARE (WNR) MEDICARE (M) PART A July 25, 2007 PART A [id number] [phone] HARMONY MCCALL JR PATIENT MEDICARE (WNR) MEDICARE (M) PART B July 25, 2007 PART B [id number] HARMONY MCCALL JR PATIENT MEDICARE (WNR) MEDICARE (M) PART A July 25, 2007 PART A [id number] HARMONY MCCALL JR PATIENT WELLPOINT MEDICAL EXPENSE (OPT/PROF ) [facility] * Jan 24, 2015 [id number] [phone] CAROLE MCCALL SPOUSE Selected Encounter This [...] Appointment Type Appointme nt Facility Name Apr 03, 2024 11:00 AM AMBULATORY - NONE [facility] Apr 10, 2024 11:00 AM AMBULATORY - NONE [facility] Apr 24, 2024 11:00 AM AMBULATORY - NONE [facility] Apr 29, 2024 10:00 [facility] May 01, 2024 11:00 AM AM[facility]ORY - NONE [facility] [facility] Jun 24, 2024 10:00 AM [facility] NONE [facility] Jun 26, 2024 11:00 AM AMBULATORY [...] in MOVE! Group Counseling via VV on March 13, 2024. The [place] was provided with information on [facility] and has given verbal consent to use group VVC services for their healthcare. The copy of the Group Telehealth Agreement has been mailed to the . The Veterans location/emergency contact number were confirmed. The Emergency Call Relay Center ([id number]) was available. The visit was locked for security and privacy. [place] identified with 2 identifiers: [ ] Full Name [ ] Address Veterans attended the [facility] MOVE! group session on this date. MOVE! [...] schedule after the new year. The next [facility] MOVE! group meeting will be held on March @ 11:00am. [place]'s reported weight was 213.2 lbs. and was stable since last group attended. Dx: [id number] [id number] The session lasted for 1 hour in duration. /johanny/ SANTIAGO KRAMER STAFF DIETITIAN Signed: 03/13/2024 15:20 Receipt Acknowledged By: 03/13/2024 16:44 /johanny/ GORDON PATHAK, Ph.D. CLINICAL PSYCHOLOGIST SANTIAGO KRAMER
--- OUTSIDE RECORDS SUMMARY | 2024-07-25 09:36 | XMS_ITS | Encounter Summary ---
Author Name Department of Vetera Affairs [place] Address [address] [place] [id number] Care Team Providers Care Personnel Administrator Name Role Phone LEN MENDOZA Primary [...] PART B Sep 23, 2014 PART B [id number] HARMONY MCCALL JR PATIENT MEDICARE (WNR) MEDICARE (M) PART A July 25, 2007 PART A [id number] HARMONY MCCALL JR PATIENT MEDICARE (WNR) MEDICARE (M) PART B July 25, 2007 PART B [id number] HARMONY MCCALL JR PATIENT MEDICARE (WNR) MEDICARE (M) PART A July 25, 2007 PART A [id number] HARMONY MCCALL JR PATIENT WELLPOINT MEDICAL EXPENSE (OPT/PROF ) [facility] * Jan 24, 2015 [id number] CAROLE MCCALL SPOUSE Selected Encounter This section includes the information on record at [place] for the Encounter. Date/Time Encounter Type Encounter Description Reason Provider Source Dec 03, 2023 10:48 AM EXERCISE CLASS HEALTH/WELLBEING SRVS ICD-10-CM Z72.3 Lack of physical exercise JANIE LAZCANO [facility] Encounter Template Text not used by [place] Assessments - Encounter Diagnoses This section includes the primary and secondary diagnoses documented for the Encounter. Date/Time Primary/Secondary Diagnosis Diagnosis Name Provider Source Dec 03, 2023 11:02 AM PRIMARY Lack of physical exercise [facility]ANIE LAZCANO [facility] Plan of Treatment: Future Appointments (+ 6 [...] AMBULATORY - NONE [facility] [place] [facility] Dec 11, 2023 01:00 PM AMBULATORY - MEDICINE [place] [facility] [facility] Dec 13, 2023 11:00 AM AMBULATORY - NONE [place] [facility] Dec 20, 2023 11:00 AM AMBULATORY - NONE [facility] Dec 25, 2023 10:00 AM AMBULATORY - NONE [facility] [place] [facility] Dec 27, 2023 11:00 AM AMBULATORY - NONE [place] Jan 03, 2024 11:00 AM AMBULATORY - NONE [facility] [facility] Jan 08, 2024 10:00 AM AMBULATORY - NONE [facility] [place] [facility] Jan 10, 2024 11:00 AM AMBULATORY - NONE [place] Jan 17, 2024 11:00 AM AMBULATORY - NONE [place] Jan 21, 2024 11:00 AM AMBULATORY - MEDICINE [place] [facility] [place] [facility] Jan 22, 2024 11:00 AM AM[facility]ULATORY - [facility]IC[facility] Jan 22, 2024 11:00 AM AMBULATORY - NONE [facility] [place] [facility] Jan 24, 2024 11:00 AM AMBULATORY - NONE [place] Jan 31, 2024 11:00 AM AMBULATORY - NONE [facility] [facility] Feb 07, 2024 11:00 AM AMBULATORY - NONE [facility] [facility] Feb 14, 2024 11:00 AM AMBULATORY - NONE [facility] [facility] Feb 26, 2024 08:30 AM AMBULATORY - NONE [facility] [place] [facility] Feb 26, 2024 08:30 AM AMBULATORY - MEDICINE [facility] Social History: Smoking Status (Most current) [...] PM VA-TOBACCO QUIT 15 YRS OR MORE [place] [facility] [place] [facility] Tobacco Use History This section includes a history of the smoking, or tobacco-related health factors, that were collected on or before the date of the Encounter. The data comes from the [place] facility where the Encounter took place. Date/Time Smoking Status/Tobacco Use Comment F acility Jan 26, 2023 01:30 PM VA-TOBACCO QUIT 15 YRS OR MORE [facility] [place] [facility] Jan 27, 2022 11:00 AM VA-TOBACCO FORMER USER [facility] [place] [facility] Jan 27, 2022 11:00 AM VA-TOBACCO QUIT 15 YRS OR MORE [facility] [place] [facility] Sep 17, 2020 09:00 AM VA-TOBACCO FORMER USER [facility] [place] [facility] Sep 17, 2020 09:00 AM VA-TOBACCO QUIT 15 YRS OR MORE [facility] [place] [facility] Jun 04, 2019 02:57 PM VA-TOBACCO NEVER USED [facility] [place] [facility] Mar 14, 2018 11:23 AM VA-TOBACCO FORMER USER [facility] [place] [facility] Mar 14, 2018 11:23 AM VA-TOBACCO QUIT 15 YRS OR MORE [facility] Apr 04, 2017 12:30 PM QUIT TOBACCO USE > 7 YEARS AGO [facility] Apr 05, 2016 01:02 PM QUIT TOBACCO USE > 7 YEARS AGO quit in 1984 [facility] Encounter Notes: All associated encounter notes This section contains the clinical notes associated to the Encounter. Date/Time Encounter Note(s) Provider Source Dec 03, 2023 10:57 AM GERIATRIC MEDICINE NOTE: LOCAL TITLE: GEROFIT VCM/VVC/VOD TELEHEALTH SUPERVISED EXERCISE STANDARD TITLE: GERIATRIC MEDICINE NOTE DATE OF NOTE: DEC 03, 2023@10:57 ENTRY DATE: DEC 03, 2023@10:57:35 AUTHOR: JANIE LAZCANO EXP COSIGNER: URGENCY: STATUS: COMPLETED [place] Provided informed consent to receive treatment via Telehealth., [place] mailed and has been made verbally aware of Telehealth Group [place] practices. 's Location: address on record unless specified below. Emergency Contact: on record unless specified below. [place] participated remotely in the [facility] exercise program today through [place] Virtual [employer]. Activities were focused on progression of their individual exercise prescription (cardiorespiratory fitness training, strength training, etc.) and group-based exercise sessions to include, but not limited to: flexibility training, balance training & functional circuit training. Exercise participation [facility] supervised [facility] and any questions/concerns were addressed with the patient. Modifications were made to programming as appropriate to suit Veterans individual needs, preferences, and whole health concerns. /es/ Janie Lazcano PT,DPT PHYSICAL THERAPIST Signed: 12/03/2023 11:07 JANIE LAZCANO [facility]
--- OUTSIDE RECORDS SUMMARY | 2024-07-25 09:36 | XMS_ITS | Encounter Summary ---
Author Name Department of Vetera Affairs ([place]) Organization [place] Address [address] [place] [address] Care Team Providers Care Firmware Software Verification Engineer Name Role Phone LEN MENDOZA Primary [...] PART B Sep 23, 2014 PART B [id number] PK04 [phone] [id number] HARMONY MCCALL JR PATIENT MEDICARE (WNR) MEDICARE (M) PART A July 25, 2007 PART A [id number] [phone] HARMONY MCCALL JR PATIENT MEDICARE (WNR) MEDICARE (M) PART B July 25, 2007 PART B [id number] [phone] HARMONY MCCALL JR PATIENT MEDICARE (WNR) MEDICARE (M) PART A July 25, 2007 PART A [id number] HARMONY MCCALL JR PATIENT WELLPOINT MEDICAL EXPENSE (OPT/PROF ) [facility] * Jan 24, 2015 [id number] CAROLE MCCALL SPOUSE Selected Encounter This [...] Lack of physical exercise JANIE LAZCANO [place] [facility] [place] [facility] Plan of Treatment: Future Appointments [...] AMBULATORY - NONE [facility] [place] [facility] Oct 25, 2023 11:00 AM AMBULATORY [...] AMBULATORY - NONE [facility] [place] [facility] Dec 06, 2023 11:00 AM AMBULATORY - NONE [place] Dec 11, 2023 10:00 AM AMBULATORY - NONE [facility] [place] [facility] Dec 11, 2023 01:00 PM AMBULATORY - MEDICINE [place] [facility] [place] [facility] Dec 13, 2023 11:00 AM AMBULATORY - NONE [place] [facility] Dec 20, 2023 11:00 AM AMBULATORY - NONE [place] Dec 25, 2023 10:00 AM AMBULATORY - NONE [facility] [place] [facility] Dec 27, 2023 11:00 AM AMBULATORY - NONE [place] Jan 03, 2024 11:00 AM AMBULATORY - NONE [place] Jan 08, 2024 10:00 AM AMBULATORY - NONE [facility] [place] [facility] Jan 10, 2024 11:00 AM AMBULATORY - NONE [place] Jan 17, 2024 11:00 AM AMBULATORY - NONE [place] Jan 21, 2024 11:00 AM AMBULATORY - MEDICINE [place] [facility] [place] [facility] Social History: Smoking Status (Most current) [...] VA-TOBACCO FORMER USER [facility] [place] [facility] Tobacco Use History This section includes a history of the smoking, or tobacco-related health factors, that were collected on or before the date of the Encounter. The data comes from the [place] facility where the Encounter took place. Date/Time Smoking Status/Tobacco Use Comment F acility Jan 26, 2023 01:30 PM VA-TOBACCO QUIT 15 YRS OR MORE [facility] [place] [facility] Jan 27, 2022 11:00 AM VA-TOBACCO FORMER USER [facility] [place] [facility] Jan 27, 2022 11:00 AM VA-TOBACCO QUIT 15 YRS OR MORE [facility] [place] [facility] Sep 17, 2020 09:00 AM VA-TOBACCO FORMER USER [facility] [place] [facility] Sep 17, 2020 09:00 AM VA-TOBACCO QUIT 15 YRS OR MORE [facility] [place] [facility] Jun 04, 2019 02:57 PM VA-TOBACCO NEVER USED [facility] [place] [facility] Mar 14, 2018 11:23 AM VA-TOBACCO FORMER USER [facility] [place] [facility] Mar 14, 2018 11:23 AM VA-TOBACCO QUIT 15 YRS OR MORE [facility] Apr 04, 2017 12:30 PM QUIT TOBACCO USE > 7 YEARS AGO [facility] Apr 05, 2016 01:02 PM QUIT [...] verbally aware of Telehealth Group [place] practices. [place]'s Location: address on record unless specified below. Emergency Contact: on record unless specified below. [place] participated remotely in the [facility] exercise program today through [place] Virtual Sociology Professor. Activities were focused on progression of [...] PHYSICAL THERAPIST Signed: 10/19/2023 10:39 JANIE LAZCANO [facility]
--- OUTSIDE RECORDS SUMMARY | 2024-07-25 09:36 | XMS_ITS | Encounter Summary ---
Author Name Department of Vetera [place] Affairs ([place]) Organization Department [place] Address [address] [place] [id number] Care Team Providers Care Clay Thrower Name Role Phone LEN MENDOZA Primary Care [...] PART B Sep 23, 2014 PART B [id number] PK04 [phone] [id number] HARMONY MCCALL JR PATIENT MEDICARE (WNR) MEDICARE (M) PART A July 25, 2007 PART A [id number] HARMONY MCCALL JR PATIENT MEDICARE (WNR) MEDICARE (M) PART B July 25, 2007 PART B [id number] [id number] [phone] HARMONY MCCALL JR PATIENT MEDICARE (WNR) MEDICARE (M) PART A July 25, 2007 PART A [id number] [id number] [phone] [id number] HARMONY MCACLL JR PATIENT WELLPOINT MEDICAL EXPENSE (OPT/PROF ) [facility] * Jan 24, 2015 [id number] CAROLE MCCALL SPOUSE Selected Encounter This section includes the information on record at VA for the Encounter. Date/Time Encounter Type Encounter Description Reason Pro vider Source IHE Encounter Template Text not used by VA
--- OUTSIDE RECORDS SUMMARY | 2024-07-25 09:36 | XMS_ITS | Encounter Summary ---
Author Name Department of Vetera [place] Affairs ([place] Organization [place] Address [address] [place] [address] Care Team Providers Care Consulting Business Developer Name Role Phone LEN MENDOZA Primary [...] PART B Sep 23, 2014 PART B [id number] HARMONY MCCALL JR PATIENT MEDICARE (WNR) MEDICARE (M) PART A July 25, 2007 PART A [id number] [id number] [phone] HARMONY MCCALL JR PATIENT MEDICARE (WNR) MEDICARE (M) PART B July 25, 2007 PART B [id number] HARMONY MCCALL JR PATIENT MEDICARE (WNR) MEDICARE (M) PART A July 25, 2007 PART A [id number] [id number] HARMONY MCCALL JR PATIENT WELLPOINT MEDICAL EXPENSE (OPT/PROF ) [facility] * Jan 24, 2015 [id number] CAROLE MCCALL SPOUSE Selected Encounter This section includes the information on record at [place] for the Encounter. Date/Time Encounter Type Encounter Description Reason Pro vider Source Jul 21, 2024 02:08 PM Outpatient Encounter ADMIN PAT ACTIVTIES (MASNONCT) IHE Encounter Template Text not used by [place] Plan of Treatment: Future Appointments (+ 6 months) and Future Tests (+/- 45 days) The Plan of Treatment section includes future care activities for the patient [facility] [place] [facility]. This section includes future appointments and future orders which are active, pending or scheduled. Future Appointments This section includes appointments that were scheduled to occur 6 months from the date of the Encounter, up to a maximum of 20 appointments. The data comes from all [facility] facilities. Appointment Date/Time Appointment Type Appointme nt Facility Name July 24, 2024 11:00 AM AM[facility]ULATORY - NONE [facility] July 25, 2024 03:30 PM AMBULATORY - MEDICINE [facility] Oct 07, 2024 10:00 AM AMBULATORY - MEDICINE [facility] Active, Pending, and Scheduled Orders This section includes a listing of several types of active, pending, and scheduled orders, including clinic medications orders, diagnostic test orders, procedure orders and consult orders; where the start date of the order is 45 days before the date of the Encounter or 45 days after the date of theEncounter. The data comes from all [facility]. Test Date/Time Test Type Test Details Facility Name Jul 10, 2024 12:00 AM Laboratory - Chemi stry Order VITAMIN B12 BLOOD (SST-SERUM) [facility] Jul 10, 2024 12:00 AM Laboratory - Chemi stry Order CBC BLOOD (LAV-BLOOD) [facility] Jul 10, 2024 12:00 AM Laboratory - Chemi stry Order IRON & TIBC PANEL BLOOD (SST-SERUM) [facility] Jul 10, 2024 12:00 AM Laboratory - Chemi stry Order LIPID PANEL, NON FASTING BLOOD (SST-SERUM) [facility] Jul 10, 2024 12:00 AM Laboratory - Chemi stry Order LIVER FUNCTION BLOOD (SST-SERUM) [facility] [place] [facility] Jul 10, 2024 12:00 AM Laboratory - Chemi stry Order BASIC METABOLIC PANEL (non-fasting) BLOOD (SST-SERUM) [facility] [place] [facility] [place] [facility] Jul 10, 2024 12:00 AM Laboratory - Chemi stry Order TSH BLOOD (SST-SERUM) [facility] [place] [facility] [place] [facility] Jul 10, 2024 12:00 AM Laboratory - Chemi stry Order FERRITIN BLOOD (SST-SERUM) [facility] Social History: Smoking Status (Most current) [...] ity Jan 21, 2024 11:00 AM VA-TOBACCO QUIT 15 YRS OR MORE [facility] [place] [place] [facility] Tobacco Use [...] YRS OR MORE [place] [facility] [place] [facility] Jan 26, 2023 01:30 PM VA-TOBACCO FORMER USER [facility] [place] [facility] Jan 26, 2023 01:30 PM VA-TOBACCO [...] VA-TOBACCO FORMER USER [place] [facility] [place] [facility] Sep 17, 2020 09:00 AM VA-TOBACCO QUIT 15 YRS OR MORE [place] [facility] [place] [facility] Jun 04, 2019 02:57 PM VA-TOBACCO NEVER USED IN [facility] [place] [facility] Mar 14, 2018 11:23 AM VA-TOBACCO FORMER USER IN [facility] [place] [facility] Mar 14, 2018 11:23 AM VA-TOBACCO QUIT 15 YRS OR MORE [place] [facility] [place] [facility] Apr 04, 2017 12:30 PM QUIT TOBACCO USE > 7 YEARS AGO [place] [facility] [place] [facility] Apr 05, 2016 01:02 PM QUIT TOBACCO USE > 7 YEARS AGO quit in 1984 [facility] Encounter Notes: All associated encounter notes This section contains the clinical notes associated to the Encounter. Date/Time Encounter Note(s) Provider Source Jul 21, 2024 02:24 PM ADDENDUM: LOCAL TITLE: Addendum STANDARD TITLE: ADDENDUM DATE OF NOTE: JUL 21, 2024@14:24:36 ENTRY DATE: JUL 21, 2024@14:24:36 AUTHOR: BALDEV BANKS COSIGNER: URGENCY: STATUS: COMPLETED Alert to [facility] for scheduling /johanny/ BALDEV BANKS MSN, RN, CNL Primary Care RN Signed: 07/21/2024 14:24 Receipt Acknowledged By: 07/22/2024 08:13 /johanny/ WINNIE GALDAMEZ ADVANCED BENCH MOLDER APPRENTICE === --- Original Document --- 07/21/24 CCC: SCHEDULING ADMINISTRATION: Caller Verification Emergency Contact: CAROLE MCCALL Emergency Contact Caller/Recipient Relation to Patient: Self Caller Name: HARMONY MCCALL Administrative Administrative Note Reason: Outside Care Performed Administrative Note Comments: [place] states he was admitted to [facility] on 07/19 for suspected seizure and was d/c home on 07/21. [place] is requesting to schedule a post d/c follow up. Please call back to advise. IMPORTANT: This note was created by [facility] Clinical Contact Center staff. Please do not alert the staff member by adding them as a signer for future communications. Alerts are not monitored by this user. /johanny/ ATIYA SANDYN[facility] Signed: 07/21/2024 14:08 Receipt Acknowledged By: 07/21/2024 14:25 /es/ BALDEV BANKS MSN, RN, CNL Primary Care RN for GISELE AUGUSTIN 07/21/2024 14:24 /es/ BALDEV BANKS MSN, RN, CNL Primary Care RN BALDEV BANKS [facility] [place] [facility] Jul 21, 2024 02:08 PM ADMINISTRATIVE NOTE: LOCAL TITLE: CCC: SCHEDULING ADMINISTRATION STANDARD TITLE: ADMINISTRATIVE NOTE DATE OF NOTE: JUL 21, 2024@14:08:07 ENTRY DATE: JUL 21, 2024@14:08:07 AUTHOR: ATIYA SABA COSIGNER: URGENCY: STATUS: COMPLETED CCC: SCHEDULING ADMINISTRATION Has ADDENDA Caller Verification Emergency Contact: CAROLE MCCALL Emergency Contact Caller/Recipient Relation to Patient: Self Caller Name: HARMONY MCCALL Administrative Administrative Note Reason: Outside Care Performed Administrative Note Comments: [place] states he was admitted to [facility] on 07/19 for suspected seizure and was d/c home on 07/21. is requesting to schedule a post d/c follow up. Please call back to advise. IMPORTANT: This note was created by [facility] Clinical Contact Center staff. Please do not alert the staff member by adding them as a signer for future communications. Alerts are not monitored by this user. /johanny/ ATIYA SANDYN[facility] Signed: 07/21/2024 14:08 Receipt Acknowledged By: 07/21/2024 14:25 /es/ BALDEV BANKS MSN, RN, CNL Primary Care RN for GISELE AUGUSTIN 07/21/2024 14:24 /es/ BALDEV BANKS MSN, RN, CNL Primary Care RN 07/21/2024 ADDENDUM STATUS: COMPLETED [facility] /johanny/ BALDEV BANKS MSN, RN, CNL Primary Care RN Signed: 07/21/2024 14:24 Receipt Acknowledged By: 07/22/2024 08:13 /johanny/ WINNIE GALDAMEZ ADVANCED BENCH MOLDER APPRENTICE 07/22/2024 ADDENDUM STATUS: COMPLETED spoke to and scheduled appointment. /johanny/ WINNIE GALDAMEZ ADVANCED BENCH MOLDER APPRENTICE Signed: 07/22/2024 08:14 AT[facility] SABA [facility]
--- OUTSIDE RECORDS SUMMARY | 2024-07-25 09:36 | XMS_ITS | Encounter Summary ---
Author Name Department of Vetera Affairs ([place]) Organization [place] Address [address] [place] [id number] Care Team Providers Care Chief Informatics Officer Name Role Phone LEN MENDOZA Primary [...] PART B Sep 23, 2014 PART B [id number] HARMONY MCCALL JR PATIENT MEDICARE (WNR) MEDICARE (M) PART A July 25, 2007 PART A [id number] HARMONY MCCALL JR PATIENT MEDICARE (WNR) MEDICARE (M) PART B July 25, 2007 PART B [id number] [phone] HARMONY MCCALL JR PATIENT MEDICARE (WNR) MEDICARE (M) PART A July 25, 2007 PART A [id number] [phone] [id number] HARMONY MCCALL JR PATIENT WELLPOINT MEDICAL EXPENSE (OPT/PROF ) [facility] * Jan 24, 2015 [id number] CAROLE MCCALL SPOUSE Selected Encounter This [...] PRIMARY Lack of physical exercise JANIE LAZCANO [place] [facility] [place] [facility] Plan of Treatment: Future Appointments (+ 6 [...] [facility] [facility] Oct [...] [place] [facility] Jan 10, 2024 11:00 AM AMBULATORY - NONE [place] Jan 17, 2024 11:00 AM AMBULATORY - NONE [place] Jan 21, 2024 11:00 AM AMBULATORY - MEDICINE [facility] [facility] Social History: Smoking Status (Most current) and [...] AM VA-TOBACCO QUIT 15 YRS OR MORE [facility] Apr 04, 2017 12:30 PM QUIT TOBACCO USE > 7 YEARS AGO [facility] Apr 05, 2016 01:02 PM QUIT TOBACCO USE > 7 YEARS AGO quit in 1984 [facility] Encounter Notes: All associated encounter notes This section contains the clinical notes associated to the Encounter. Date/Time Encounter Note(s) Provider Source Oct 22, 2023 11:28 AM GERIATRIC MEDICINE NOTE: LOCAL TITLE: GEROFIT VCM/VVC/VOD TELEHEALTH SUPERVISED EXERCISE STANDARD TITLE: GERIATRIC MEDICINE NOTE DATE OF NOTE: OCT 22, 2023@11:28 ENTRY DATE: OCT 22, 2023@11:28:15 AUTHOR: JANIE LAZCANO EXP COSIGNER: URGENCY: STATUS: COMPLETED [place] Provided informed consent to receive treatment via Telehealth., mailed and has been made verbally aware of Telehealth Group [place] practices. 's Location: address on record unless specified below. Emergency Contact: on record unless specified below. Taylor participated remotely in the [facility] exercise program today through [place] Virtual Medical Device Engineer. Activities were focused on progression of their individual exercise prescription (cardiorespiratory fitness training, strength training, etc.) and group-based exercise sessions to include, but not limited to: flexibility training, balance training & functional circuit training. Exercise participation was supervised remotely by [facility] staff and any questions/concerns were addressed with the patient. Modifications were made to programming as appropriate to suit Veterans individual needs, preferences, and whole health concerns. /es/ Janie Lazcano PT,DPT PHYSICAL THERAPIST Signed: 10/22/2023 11:38 JANIE LAZCANO [facility]
--- OUTSIDE RECORDS SUMMARY | 2024-07-25 09:36 | XMS_ITS | Encounter Summary ---
Author Name Department of Vetera [place] Affairs ([place]) Organization [place] Address [address] [place] [id number] Care Team Providers Care Snaker Name Role Phone LEN MENDOZA Primary Care [...] PART B Sep 23, 2014 PART B [id number] PK04 [phone] [id number] HARMONY MCCALL JR PATIENT MEDICARE (WNR) MEDICARE (M) PART A July 25, 2007 PART A [id number] HARMONY MCCALL JR PATIENT MEDICARE (WNR) MEDICARE (M) PART B July 25, 2007 PART B [id number] HARMONY MCCALL JR PATIENT MEDICARE (WNR) MEDICARE (M) PART A July 25, 2007 PART A [id number] HARMONY MCCALL JR PATIENT WELLPOINT MEDICAL EXPENSE (OPT/PROF ) [facility] * Jan 24, 2015 [id number] 18 CAROLE MCCALL SPOUSE Selected Encounter This section includes the information on record at [place] for the Encounter. Date/Time Encounter Type Encounter Description Reason Provider Source Jan 03, 2024 11:00 AM HLTH BHV IVNTJ GRP EA ADDL WEIGHT MGMT & MOVE! PROG - GRP ICD-10-CM Z68.30 Body mass index [BMI] 30.0-30.9, adult GORDON PATHAK [facility] Encounter Template Text not used by [place] Assessments - Encounter Diagnoses This section includes the primary and secondary diagnoses documented for the Encounter. Date/Time Primary/Secondary Diagnosis Diagnosis Name Provider Source Jan 03, 2024 05:49 PM PRIMARY Body mass index [BMI] 30.0-30.9, adult GORDON PATHAK [facility] Jan 03, 2024 05:49 PM SECONDARY Other obesity due to excess calories GORDON PATHAK [facility] Plan of Treatment: Future Appointments (+ 6 [...] MEDICINE [facility] [place] [facility] Jan [...] [place] [facility] Feb 26, 2024 08:30 AM AMBULATORY - MEDICINE [place] [place] [facility] Feb [...] [place] [facility] May 01, 2024 11:00 AM [...] AUTHOR: GORDON PATHAK COSIGNER: URGENCY: STATUS: COMPLETED [place] participated in MOVE! Group Counseling via [facility] on January 03, 2024. The [place] was provided with information on [facility] and has given verbal consent to use group VVC services for their healthcare. The copy of the Group Telehealth Agreement has been mailed to the [place]. The Veterans location/emergency contact number were confirmed. The Emergency Call Relay Center ([phone]) was available. The visit was locked for security and privacy. [place] identified with 2 identifiers: [ ] Full Name [ ] Address Veterans attended the [facility] MOVE! group session on this date. [...] such experiments produced weight loss. The next [facility] MOVE! group meeting will be held [...]
--- OUTSIDE RECORDS SUMMARY | 2024-07-25 09:36 | XMS_ITS | Encounter Summary ---
Author Name Department of Vetera [place] Affairs ([place] Organization [place] Address [address] [place] [address] Care Team Providers Care Subway Train Driver Name Role Phone LEN MENDOZA Primary [...] PART B Sep 23, 2014 PART B [id number] [id number] [phone] [id number] HARMONY MCCALL JR PATIENT MEDICARE (WNR) MEDICARE (M) PART A July 25, 2007 PART A [id number] HARMONY MCCALL JR PATIENT MEDICARE (WNR) MEDICARE (M) PART B July 25, 2007 PART B [id number] HARMONY MCCALL JR PATIENT MEDICARE (WNR) MEDICARE (M) PART A July 25, 2007 PART A [id number] PK04 [phone] [id number] HARMONY MCCALL JR PATIENT WELLPOINT MEDICAL EXPENSE (OPT/PROF ) [facility] * Jan 24, 2015 [id number] 18 CAROLE MCCALL SPOUSE Selected Encounter This section includes the information on record at [place] for the Encounter. Date/Time Encounter Type Encounter Description Reason Provider Source Sep 25, 2023 11:30 AM COMPRE OPH EXAM EST PT 1/> OPTOMETRY ICD-10-CM L71.8 Other rosacea NIMO GEE E Encounter Template Text not used by [place] Assessments - Encounter Diagnoses This section includes the primary and secondary diagnoses documented for the Encounter. Date/Time Primary/Secondary Diagnosis Diagnosis Name Provider Source Oct 24, 2023 10:16 AM PRIMARY Other rosacea NIMO GEE [place] [facility] [place] [facility] Oct 24, 2023 10:16 AM SECONDARY Benign neoplasm of pituitary gland NIMO GEE [place] [facility] [facility] Oct 24, 2023 10:16 AM SECONDARY Dry eye syndrome of bilateral lacrimal glands NIMO GEE [facility] [place] [facility] Oct 24, 2023 10:16 AM SECONDARY Meibomian gland dysfnct left eye, upper and lower eyelids NIMO GEE [facility] [place] [facility] Oct 24, 2023 10:16 AM SECONDARY Meibomian gland dysfnct right eye, upper and lower eyelids NIMO GEE [facility] [place] [facility] Oct 24, 2023 10:16 AM SECONDARY Presence of intraocular lens NIMO GEE [facility] [place] [facility] Oct 24, 2023 10:16 AM SECONDARY Rhinophyma NIMO GEE [place] [facility] [place] [facility] Plan of Treatment: [...] NONE [facility] [facility] Oct 25, 2023 11:00 AM AMBULATORY [...] NONE [facility] [facility] Dec 06, 2023 11:00 AM AMBULATORY - NONE [place] Dec 11, 2023 10:00 AM AMBULATORY - NONE [facility] [facility] Dec 11, 2023 01:00 PM AMBULATORY - MEDICINE [facility] [place] [facility] Dec 13, 2023 11:00 AM AMBULATORY - NONE [place] Dec 20, 2023 11:00 AM AMBULATORY - NONE [place] Dec 25, 2023 10:00 AM AMBULATORY - NONE [facility] [place] [facility] Dec 27, 2023 11:00 AM AMBULATORY - NONE [place] Jan 03, 2024 11:00 AM AMBULATORY - NONE [place] Jan 08, 2024 10:00 AM [facility]ONE [facility] Social History: Smoking Status (Most current) and [...] VA-TOBACCO QUIT 15 YRS OR MORE [facility] Use History This section includes [...] MORE [facility] [place] [facility] Apr 04, 2017 12:30 PM QUIT TOBACCO USE > 7 YEARS AGO [facility] [place] [facility] Apr 05, 2016 01:02 PM QUIT TOBACCO USE > 7 YEARS AGO quit in 1984 [place] [facility] [place] [facility] Encounter Notes: All associated encounter notes [...] Remote Allergy/ADR Data available for this patient [facility] [place] [facility] No Known Allergies Med Recon NoGlossary (Tool #1) INCLUDED IN THIS LIST: Alphabetical list of active outpatient prescriptions dispensed from this [place] (local) and dispensed from another [place] or [facility] facility (remote) as well as inpatient orders (local pending and active), local clinic medications, locally documented non-VA medications, and local prescriptions that have or been discontinued in the past 90 days. Non-VA Meds Last Documented On: Jul 23, 2023 NOTE The display of VA prescriptions dispensed from another [place] or [facility] facility (remote) is limited to active outpatient prescription entries matched to National Drug File at the originating site and may not include some items such as investigational drugs, compounds, etc. NOT INCLUDED IN THIS LIST: Medications self-entered by the patient into personal health records (i.e. [employer]CL[employer]) are NOT included in this list. Non-VA medications documented outside this [place], remote inpatient orders (regardless of status) and [...] ONCE DAILY TO CONTROL BLOOD PRESSURE Rx# [id number] Last Released: 05/11/23 Qty/Days Supply: Rx Expiration [...] 09/25/2023 12:11 GRECIA GEE [facility] [place] [facility] Sep 25, 2023 07:53 AM OPTOMETRY NOTE: [...] ocular complications OU -currently managed by outside hogshead liner -no optic nerve pallor or gross VF defects observed -continue to monitor yearly 1. H/O bilateral upper lid blepharoplasty with mild residual posis OD -no impact to visual function at present -continue to monitor yearly 2. Pseudophakia OU - trace PCO not impacting vision OU - monitor at [facility] 3. 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 Presbyopia OU -Spec Rx updated, order 1 pair NVO per pt request -moniotr annually Return to Clinic 1 year or earlier BEA /johanny/ JM BLAKELY OPTOMETRY STUDENT Signed: 09/25/2023 16:34 /johanny/ Grecia Gee OD CHIEF OF OPTOMETRY Cosigned: 09/26/2023 07:24 JM BLAKELY [facility]
== END 2024-07-25 10:03 | disposition home or self-care (01) ==
LOC: HO.HCS 09:06
PROVIDERS: PCP Internal Medicine; Visit Provider Nurse Practitioner Family
DX: R00.1 Bradycardia, unspecified (principal); I25.10 Atherosclerotic heart disease of native coronary artery without angina pectoris; R53.83 Other fatigue; I44.7 Left bundle-branch block, unspecified; I71.43 Infrarenal abdominal aortic aneurysm, without rupture; R56.9 Unspecified convulsions; Z09 Encounter for follow-up examination after completed treatment for conditions other than malignant neoplasm
CPT/HCPCS: 99214; G2211

== ENCOUNTER → 2024-07-25 09:05 | Outpatient (BNVA) | payer MEDICARE, OTHER, SELFPAY | PROVIDERS: PCP Internal Medicine; Visit Provider Nurse Practitioner Family | DX: Z09 Encounter for follow-up examination after completed treatment for conditions other than malignant neoplasm (principal); I25.10 Atherosclerotic heart disease of native coronary artery without angina pectoris; I44.7 Left bundle-branch block, unspecified; I71.43 Infrarenal abdominal aortic aneurysm, without rupture; R00.1 Bradycardia, unspecified; R56.9 Unspecified convulsions; R53.83 Other fatigue | CPT/HCPCS: 99212 ==

== ENCOUNTER → 2024-07-28 10:29 | Outpatient (REF) | payer MEDICARE, OTHER, SELFPAY ==
--- OUTSIDE RECORDS SUMMARY | 2024-07-28 11:53 | XMS_ITS ---
Author Name [facility] Organization [facility] Address [address] [place] [address] Care Team Providers Care Validation Software Facilitator Name Role Phone LEN MENDOZA Primary Care [...] PART B Sep 23, 2014 PART B [id number] HARMONY MCCALL JR PATIENT MEDICARE (WNR) MEDICARE (M) PART A July 25, 2007 PART A [id number] HARMONY MCCALL JR PATIENT MEDICARE (WNR) MEDICARE (M) PART B July 25, 2007 PART B [id number] HARMONY MCCALL JR PATIENT MEDICARE (WNR) MEDICARE (M) PART A July 25, 2007 PART A [id number] [phone] [id number] HARMONY MCCALL JR PATIENT [employer] (OPT/PROF ) [facility] * Jan 24, 2015 [id number] CAROLE MCCALL SPOUSE Selected Encounter This section includes the information on record at [place] for the Encounter. Date/Time Encounter Type Encounter Description Reason Provider Source July 25, 2024 03:30 PM Outpatient Encounter PRIMARY CARE/MEDICINE LEN MENDOZA Encounter Template Text not used by [place] Plan of Treatment: Future Appointments (+ 6 months) and Future Tests (+/- 45 days) The Plan of Treatment section includes future care activities for the patient from all [place] [facility] This section includes future appointments and future orders which are active, pending or scheduled. Future Appointments This section includes appointments that were scheduled to occur 6 months from the date of the Encounter, up to a maximum of 20 appointments. The data comes from all [facility] facilities. Appointment Date/Time Appointment Type Appointme nt Facility Name Oct 07, 2024 10:00 AM AMBULATORY - MEDICINE [facility] Active, Pending, and Scheduled Orders This section includes a listing of several types of active, pending, and scheduled orders, including clinic medications orders, diagnostic test orders, procedure orders and consult orders; where the start date of the order is 45 days before the date of the Encounter or 45 days after the date of theEncounter. The data comes from all [facility]. Test Date/Time Test Type Test Details Facility Name Jul 10, 2024 12:00 AM Laboratory - Chemi stry Order VITAMIN B12 BLOOD (SST-SERUM) [facility] Jul 10, 2024 12:00 AM Laboratory - Chemi stry Order CBC BLOOD (LAV-BLOOD) [facility] Jul 10, 2024 12:00 AM Laboratory - Chemi stry Order BASIC METABOLIC PANEL (non-fasting) BLOOD (SST-SERUM) [facility] Jul 10, 2024 12:00 AM Laboratory - Chemi stry Order LIPID PANEL, NON FASTING BLOOD (SST-SERUM) [facility] Jul 10, 2024 12:00 AM Laboratory - Chemi stry Order IRON & TIBC PANEL BLOOD (SST-SERUM) [facility] Jul 10, 2024 12:00 AM Laboratory - Chemi stry Order LIVER FUNCTION BLOOD (SST-SERUM) [facility] [place] [facility] Jul 10, 2024 12:00 AM Laboratory - Chemi stry Order TSH BLOOD (SST-SERUM) [facility] [place] [facility] Jul 10, 2024 12:00 AM Laboratory - Chemi stry Order FERRITIN [facility]LO[facility] (SST[facility]SERUM[facility] [place] [facility] Vital Signs: All taken on the encounter date This section contains inpatient and outpatient Vital Signs collected on the date of the Encounter. Date/Time Temperature Pulse Blood Pressure Respiratory Rate SP02 Pain Height Weight Body Mass Index Source July 25, 2024 03:13 PM 98.3 72 124/80 20 99 2 68 222 34 [place] [facility] Social History: Smoking Status (Most [...] AM VA-TOBACCO QUIT 15 YRS OR [facility] Tobacco Use History This section includes a history of the smoking, or tobacco-related health factors, that were collected on or before the date of the Encounter. The data comes from the [place] facility where the Encounter took place. Date/Time Smoking Status/Tobacco Use Comment F acility Jan 21, 2024 11:00 AM VA-TOBACCO QUIT 15 YRS OR MORE [facility] [place] [facility] Jan 26, 2023 01:30 PM VA-TOBACCO FORMER USER [facility] [place] [facility] Jan 26, 2023 01:30 PM VA-TOBACCO QUIT 15 YRS OR MORE [facility] [place] [facility] Jan 27, 2022 11:00 AM VA-TOBACCO FORMER USER [facility] [place] [facility] Jan 27, 2022 11:00 AM VA-TOBACCO QUIT 15 YRS OR MORE [facility] [place] [facility] Sep 17, 2020 09:00 AM VA-TOBACCO FORMER USER [facility] [place] [facility] Sep 17, 2020 09:00 AM VA-TOBACCO QUIT 15 YRS OR MORE [facility] [place] [facility] Jun 04, 2019 02:57 PM VA-TOBACCO NEVER USED [facility] [place] [facility] Mar 14, 2018 11:23 AM VA-TOBACCO FORMER USER [facility] [place] [facility] Mar 14, 2018 11:23 AM VA-TOBACCO QUIT 15 YRS OR MORE [facility] [place] [facility] Apr 04, 2017 12:30 PM QUIT TOBACCO USE > 7 YEARS AGO [facility] [place] [facility] Apr 05, 2016 01:02 PM QUIT TOBACCO USE > 7 YEARS AGO [facility] Encounter Notes: All associated encounter notes This section contains the clinical notes associated to the Encounter. Date/Time Encounter Note(s) Provider Source July 25, 2024 03:19 PM PREVENTIVE MEDICIN E NURSING NOTE: LOCAL TITLE: CLINICAL REMINDERS/NURSING STANDARD TITLE: PREVENTIVE MEDICINE NURSING NOTE DATE OF NOTE: JULY 25, 2024@15:19 ENTRY DATE: JULY 25, 2024@15:19:23 AUTHOR: ARRON AUGUSTIN EXP COSIGNER: URGENCY: STATUS: COMPLETED Advance Directive Screen [...] of his/her rights. Suicide Screen: C-SSRS Screening [place]-Suicide Severity Rating Scale (C-SSRS Screener) 1. Over [...] Not worried about housing near future [facility] reports the following: Within the past 12 months, you worried whether your food would run out before you got money to buy more. Never true Within the past 12 months, the food you bought just didn't last and you didn't have money to get more. Never true Homelessness/Food Insecurity Screen: [facility] reports the following: Within the past 12 months, you worried whether your food would run out before you got money to buy more. Never true Within the past 12 months, the food you bought just didn't last and you didn't have money to get more. Never true /es/ Arron Augustin [employer] SENIOR PARTNER,PRIMARY CARE Signed: 07/25/2024 15:20 ARRON AUGUSTIN [facility]
--- OUTSIDE RECORDS SUMMARY | 2024-07-28 11:53 | XMS_ITS | Continuity of Care Document ---
Author Name [facility] Organization [facility] Care Team Providers Care Business Administration Program Chair Name Role Phone [facility] Unavailable Unavailable Problems Combined list of problems [...] mass index [BMI] 30.0-30.9, adult Active Diagnosis [facility] Diagnosis: ICD-10-CM E66.811 Obesity, class 1 Active Diagnosis [place] Diagnosis: ICD-10-CM Z72.3 Lack of physical exercise Active Diagnosis [facility] Diagnosis: ICD-10-CM Z71.3 Dietary counseling and surveillance Active Diagnosis [facility] Diagnosis: ICD-10-CM G47.33 Obstructive sleep apnea (adult) (pediatric) Active Diagnosis [facility] Diagnosis: ICD-10-CM G47.30 Sleep apnea, unspecified Active Diagnosis [facility] Diagnosis: ICD-10-CM E66.09 Other obesity due to excess calories Active Diagnosis [facility] Diagnosis: ICD-10-CM Z73.3 Stress, not elsewhere classified Active Diagnosis [facility] Diagnosis: ICD-10-CM Z68.29 Body mass index [BMI] 29.0-29.9, adult Active Diagnosis [facility] Diagnosis: ICD-10-CM Z46.0 Encounter for fit/adjst of spectacles and contact lenses Active Diagnosis [facility] Diagnosis: ICD-10-CM L71.8 Other rosacea Active Diagnosis [facility] Diagnosis: ICD-10-CM E66.3 Overweight Active Diagnosis [place] Diagnosis: ICD-10-CM K21.9 Gastro-esophageal reflux disease without esophagitis Active Diagnosis [facility] Diagnosis: ICD-10-CM Z02.89 Encounter for other administrative examinations Active Diagnosis [facility] [place] [facility] Medications Combined list of outpatient medications from Department of Defense and Veterans Affairs facilities.Medications provided include 1) outpatient medications from the last 15 months, and 2) patient-reported medications. Medication Details Route Status Patient Instructions Prescription Expires Prescription Number Last Dispense Date Ordering Provider Order Date Order Qty Source ASPIRIN 81MG TAB,CHEWABL E CHEW ONE TABLET BY MOUTH DAILY ORAL ACTIVE BRITT,2016 [facility] [place] [facility] BROMOCRIPTI NE MESYLATE 0.8MG TAB TAKE THREE TABLETS BY MOUTH ONCE DAILY ORAL ACTIVE ,[facility] CALCIUM 200MG (CA CITRATE-950 MG) TAB TAKE THREE TABLETS BY MOUTH DAILY ORAL ACTIVE BRITT,2016 [facility] [place] [facility] CARBOXYMETH YLCELLULOSE NA 0.5% SOLN,OPH INSTILL 1 DROP INTO EACH EYE FOUR TIMES A DAY FOR DRY EYE OPHTHA LMIC ACTIVE 09/25/2024 [id number] Cecily GEE ICHELE 2023 45 [facility] CETIRIZINE HCL 10MG TAB TAKE ONE TABLET BY MOUTH DAILY ORAL ACTIVE BRITT, [facility] 2016 [facility] CHOLECALCIF FORTINO 25MCG (1,000UNIT) TAB TAKE ONE TABLET BY MOUTH DAILY ORAL ACTIVE BRITT [facility] 2016 [facility] LEVOTHYROXI NE NA 125MCG TAB (SYNTHROID) TAKE ONE TABLET BY MOUTH EVERY MORNING 30 MINUTES BEFORE BREAKFAS T ORAL ACTIVE LEN MENDOZA 2023 [facility] LISINOPRIL 5MG TAB TAKE ONE TABLET BY MOUTH ONCE DAILY TO CONTROL BLOOD PRESSURE ORAL 01/27/2024 [id number] LEN MENDOZA 2022 90 [facility] [place] POTASSIUM 100MG TAB TAKE ONE TABLET BY MOUTH ONCE DAILY ORAL ACTIVE LEN MENDOZA 2017 [facility] OTHER CAP/TAB TAKE 5 MG BY MOUTH DAILY ORAL ACTIVE BALWINDER [facility] 2016 [facility] TAMSULOSIN HCL 0.4MG CAP TAKE 1 CAPSULE BY MOUTH ONCE DAILY ORAL ACTIVE LEN MENDOZA [address] [facility] IELD Immunizations Combined list of available immunizations from the Department of Defense and Veterans Affairs facilities. Immunization Series Date Given Administered By Site Reaction Lot Number CVX Code Drug Carrot Harvester Status Comments Source INFLUENZA, HIGH-DOSE, TRIVALENT, PF 2023 [facility] H RIGHT DELTO ID [id number] 135 complet ed [facility] INFLUENZA, HIGH-DOSE, QUADRIVALENT 2022 [facility] LEFT DELTO ID [id number] 197 complet ed [facility] COVID-19 (MODERNA), MRNA, LNP-S, PF, 100 MCG/0.5ML DOSE OR 50 MCG/0.25ML DOSE 3 2021 207 complet ed MOD; [id number]; 2 [facility] COVID-19 (MODERNA), MRNA, LNP-S, PF, 100 MCG OR 50 MCG DOSE 3 2020 207 complet ed MOD; [id number]; 2 [facility] [place] INFLUENZA VACCINE, QUADRIVALENT, ADJUVANTED 2020 205 complet ed [facility] COVID-19 (MODERNA), MRNA, LNP-S, PF, 100 MCG/0.5 ML DOSE 2 2020 207 complet ed MOD; [id number]; 1 [facility] [place] COVID-19 (MODERNA), MRNA, LNP-S, PF, 100 MCG/0.5 ML DOSE 1 2020 207 complet ed MOD; [id number]; 1 [facility] [place] [...] 2016 88 complet ed Site: Left Deltoid [facility] [place] [facility] Results Combined list of recent chemistry, hematology [...] Jul 12, 2023 10:12 AM Reporting Lab: [facility] [address] [address] Performing Lab: [facility] [place] [address] [address] [facility] BASIC METABOLIC PANEL (non-fast ing) UREA NITROGEN [MASS/VOLUM E] IN SERUM OR PLASMA 19 mg/dL 7 - 25 07/18 Specimen Type: SERUM No comment entered. Ordering Provider: ORACIO MENDOZA Report Released Date/Time: Jul 12, 2023 10:12 AM Reporting Lab: [facility] [place] [address] [address] Performing Lab: [facility] [place] [address] [address] [facility] TS [facility] BASIC METABOLIC PANEL (non-fast ing) GLUCOSE [MASS/VOLUM E] IN SERUM OR PLASMA 95 mg/dL 65 - 100 07/18 Specimen Type: SERUM No comment entered. Ordering Provider: ORACIO MENDOZA Report Released Date/Time: Jul 12, 2023 10:12 AM Reporting Lab: [facility] [place] [address] [address] Performing Lab: [facility] [place] [address] [address] [facility] TS [facility] BASIC METABOLIC PANEL (non-fast ing) SODIUM [MOLES/VOLU ME] IN SERUM OR PLASMA 142 mmol/L 135 - 145 07/18 Specimen Type: SERUM No comment entered. Ordering Provider: ORACIO MENDOZA Report Released Date/Time: Jul 12, 2023 10:12 AM Reporting Lab: [facility] [address] [address] Performing Lab: [facility]USE[address] [address] [facility]N [facility]ITALUSE [facility] BASIC METABOLIC PANEL (non-fast ing) POTASSIUM [MOLES/VOLU ME] IN SERUM OR PLASMA 4.7 mmol/L 3.5 - 5.0 07/18 Specimen Type: SERUM No comment entered. Ordering Provider: ORACIO MENDOZA Report Released Date/Time: Jul 12, 2023 10:12 AM Reporting Lab: [facility]OURTRN [facility]ITALUSE[address] [address] Performing Lab: [facility]TR[facility] [address] [facility]ITALUSE [facility] BASIC METABOLIC PANEL (non-fast ing) CHLORIDE [MOLES/VOLU ME] IN SERUM OR PLASMA 107 mmol/L 100 - 110 07/18 Specimen Type: SERUM No comment entered. Ordering Provider: ORACIO MENDOZA Report Released Date/Time: Jul 12, 2023 10:12 AM Reporting Lab: [facility] [address] [address] Performing Lab: [facility] [address] [address] [facility]ITALN [facility]PITALUSE [facility] BASIC METABOLIC PANEL (non-fast ing) CARBON DIOXIDE, TOTAL [MOLES/VOLU ME] IN SERUM OR PLASMA 28 meq/L 20 - 30 07/18 Specimen Type: SERUM No comment entered. Ordering Provider: ORACIO MENDOZA Report Released Date/Time: Jul 12, 2023 10:12 AM Reporting Lab: [facility] [address] [address] Performing Lab: [facility] W[facility]N [facility]ITALUSE[facility] [address] [facility] [address] [facility] BASIC METABOLIC PANEL (non-fast ing) CREATININE [MASS/VOLUM E] IN SERUM OR PLASMA 0.90 mg/dL 0.50 - 1.40 07/18 Specimen Type: SERUM No comment entered. Ordering Provider: ORACIO MENDOZA Report Released Date/Time: Jul 12, 2023 10:12 AM Reporting Lab: [facility]ERN [facility]ITALUSE[facility] [address] [facility] [address] Performing Lab: [facility]OSPITALN [facility] [address] [facility] [address] [facility] BASIC METABOLIC PANEL (non-fast ing) GLOMERULAR FILTRATION RATE/1.73 SQ M.PREDICTED [VOLUME RATE/AREA] IN SERUM, PLASMA OR BLOOD BY CREATININE- BASED FORMULA (CKD-EPI 2020) 86 mL/min 60 07/18 Specimen Type: SERUM No comment entered. Ordering Provider: ORACIO MENDOZA Report Released Date/Time: Jul 12, 2023 10:12 AM Reporting Lab: [facility]OS[facility]ITALN [facility]PITALUSE[facility] [address] [facility] [address] Performing Lab: [facility]N [facility]ITALUSE[address] [address] [facility] LIPID PANEL, NON FASTING CHOLESTEROL [MASS/VOLUM E] IN SERUM OR PLASMA 119 mg/dL 07/18 Specimen Type: SERUM No comment entered. Ordering Provider: ORACIO MENDOZA Report Released Date/Time: Jul 12, 2023 10:12 AM Reporting Lab: [facility]OSPITALN [facility]ITALUSE[facility] [address] [facility] [address] Performing Lab: [facility]N [facility]ITALUSE[address] [address] [facility] LIPID PANEL, NON FASTING TRIGLYCERID E [MASS/VOLUM E] IN SERUM OR PLASMA 48 mg/dL 0 - 150 07/18 Specimen Type: SERUM No comment entered. Ordering Provider: ORACIO MENDOZA Report Released Date/Time: Jul 12, 2023 10:12 AM Reporting Lab: [facility] [place] [facility] [address] [facility] [address] Performing Lab: [facility] [place] [facility] [address] [facility] [address] [facility] [facility] LIPID PANEL, NON FASTING CHOLESTEROL IN LDL [MASS/VOLUM E] IN SERUM OR PLASMA BY CALCULATION 63 mg/dL 0 - 129 07/18 Specimen Type: SERUM No comment entered. Ordering Provider: ORACIO MENDOZA Report Released Date/Time: Jul 12, 2023 10:12 AM Reporting Lab: [facility] [place] [facility] [address] [facility] [address] Performing Lab: [facility] [place] [facility] [address] [facility] [address] [facility] [place] [facility] LIPID PANEL, NON FASTING CHOLESTEROL .TOTAL/CHOL ESTEROL IN HDL [MASS RATIO] IN SERUM OR PLASMA 2.6 07/18 Specimen Type: SERUM No comment entered. Ordering Provider: ORACIO MENDOZA Report Released Date/Time: Jul 12, 2023 10:12 AM Reporting Lab: [facility] [place] [facility] [address] [facility] [address] Performing Lab: [facility] [place] [facility] [address] [facility] [address] [facility] [place] [facility] LIPID PANEL, NON FASTING CHOLESTEROL IN HDL [MASS/VOLUM E] IN SERUM OR PLASMA 46 mg/dL 40 - 60 07/18 Specimen Type: SERUM No comment entered. Ordering Provider: ORACIO MENDOZA Report Released Date/Time: Jul 12, 2023 10:12 AM Reporting Lab: [facility] [place] [facility] [address] [facility] [address] Performing Lab: [facility] [place] [facility] [address] [facility] [address] [facility] [place] [facility] CBC LEUKOCYTES [#/VOLUME] IN BLOOD BY AUTOMATED COUNT 7.33 10*3/u L 4.50 - 11.00 07/18 Specimen Type: BLOOD No comment entered. Ordering Provider: ORACIO MENDOZA Report Released Date/Time: Jul 12, 2023 10:12 AM Reporting Lab: [facility] [place] [facility] [address] [facility] [address] Performing Lab: [facility] [place] [facility] [address] [facility] [address] [facility] [place] [facility] CBC ERYTHROCYTE S [#/VOLUME] IN BLOOD BY AUTOMATED COUNT 4.94 10*6/u L 4.23 - 5.66 07/18 Specimen Type: BLOOD No comment entered. Ordering Provider: ORACIO MENDOZA Report Released Date/Time: Jul 12, 2023 10:12 AM Reporting Lab: [facility] [place] [address] [address] Performing Lab: [facility] [place] [address] [address] [facility] [place] [facility] CBC HEMOGLOBIN [MASS/VOLUM E] IN BLOOD 15.1 g/dL 12.8 - 17 07/18 Specimen Type: BLOOD No comment entered. Ordering Provider: ORACIO MENDOZA Report Released Date/Time: Jul 12, 2023 10:12 AM Reporting Lab: [facility] [place] [address] [address] Performing Lab: [facility] [place] [address] [address] [facility] [place] [facility] CBC HEMATOCRIT [VOLUME FRACTION] OF BLOOD BY AUTOMATED COUNT 46.2 39.2 - 50.4 07/18 Specimen Type: BLOOD No comment entered. Ordering Provider: ORACIO MENDOZA Report Released Date/Time: Jul 12, 2023 10:12 AM Reporting Lab: [facility] [place] [address] [address] Performing Lab: [facility] [place] [address] [address] [facility] [place] [facility] CBC MCV [ENTITIC VOLUME] BY AUTOMATED COUNT 93.5 fL 82 - 99 07/18 Specimen Type: BLOOD No comment entered. Ordering Provider: ORACIO MENDOZA Report Released Date/Time: Jul 12, 2023 10:12 AM Reporting Lab: [facility] [place] [facility] [address] [facility] [address] Performing Lab: [facility] [place] [facility] [address] [facility] [address] [facility] [place] [facility] CBC MCHC [MASS/VOLUM E] BY AUTOMATED COUNT 32.7 g/dL 30.8 - 35.1 07/18 Specimen Type: BLOOD No comment entered. Ordering Provider: ORACIO MENDOZA Report Released Date/Time: Jul 12, 2023 10:12 AM Reporting Lab: [facility] [place] [address] [address] Performing Lab: [facility] [place] [address] [address] [facility] [place] [facility] CBC PLATELETS [#/VOLUME] IN BLOOD BY AUTOMATED COUNT 181 10*3/u L 140 - 360 07/18 Specimen Type: BLOOD No comment entered. Ordering Provider: ORACIO MENDOZA Report Released Date/Time: Jul 12, 2023 10:12 AM Reporting Lab: [facility] [place] [address] [address] Performing Lab: [facility] [place] [facility] [address] [facility] [address] [facility] [place] [facility] CBC ERYTHROCYTE DISTRIBUTIO N WIDTH [RATIO] BY AUTOMATED COUNT 13.2 12.0 - 16.0 07/18 Specimen Type: BLOOD No comment entered. Ordering Provider: ORACIO MENDOZA Report Released Date/Time: Jul 12, 2023 10:12 AM Reporting Lab: [facility] [place] [address] [address] Performing Lab: [facility] [place] [facility] [address] [facility] [address] [facility] [place] [facility] CBC MCH [ENTITIC MASS] BY AUTOMATED COUNT 30.6 pg 26.2 - 32.6 07/18 Specimen Type: BLOOD No comment entered. Ordering Provider: ORACIO MENDOZA Report Released Date/Time: Jul 12, 2023 10:12 AM Reporting Lab: [facility] [place] [facility] [address] [facility] [address] Performing Lab: [facility] [place] [facility] [address] [facility] [address] [facility] [place] [facility] LIVER FUNCTION PROTEIN [MASS/VOLUM E] IN SERUM OR PLASMA 6.7 g/dL 6.0 - 8.3 07/18 Specimen Type: SERUM No comment entered. Ordering Provider: ORACIO MENDOZA Report Released Date/Time: Jul 12, 2023 10:12 AM Reporting Lab: [facility] [place] [facility] [address] [facility] [address] Performing Lab: [facility] [place] [facility] [address] [facility] [address] [facility] [place] [facility] LIVER FUNCTION ALBUMIN [MASS/VOLUM E] IN SERUM OR PLASMA 3.8 g/dL 3.5 - 5.0 07/18 Specimen Type: SERUM No comment entered. Ordering Provider: ORACIO MENDOZA Report Released Date/Time: Jul 12, 2023 10:12 AM Reporting Lab: [facility] [place] [facility] [address] [facility] [address] Performing Lab: [facility] [place] [facility] [address] [facility] [address] [facility] [place] [facility] LIVER FUNCTION ALKALINE PHOSPHATASE [ENZYMATIC ACTIVITY/VO LUME] IN SERUM OR PLASMA 55 U/L 40 - 150 07/18 Specimen Type: SERUM No comment entered. Ordering Provider: ORACIO MENDOZA Report Released Date/Time: Jul 12, 2023 10:12 AM Reporting Lab: [facility] [place] [facility] [address] [facility] [address] Performing Lab: [facility] [place] [facility] [address] [facility] [address] [facility] [place] [facility] LIVER FUNCTION ASPARTATE AMINOTRANSF ERASE [ENZYMATIC ACTIVITY/VO LUME] IN SERUM OR PLASMA 26 U/L 5 - 34 07/18 Specimen Type: SERUM No comment entered. Ordering Provider: ORACIO MENDOZA Report Released Date/Time: Jul 12, 2023 10:12 AM Reporting Lab: [facility] [place] [facility] [address] [facility] [address] Performing Lab: [facility] [place] [facility] [address] [facility] [address] [facility] [place] [facility] LIVER FUNCTION ALANINE AMINOTRANSF ERASE [ENZYMATIC ACTIVITY/VO LUME] IN SERUM OR PLASMA 26 U/L 07/18 Specimen Type: SERUM No comment entered. Ordering Provider: ORACIO MENDOZA Report Released Date/Time: Jul 12, 2023 10:12 AM Reporting Lab: [facility] [place] [facility] [address] [facility] [address] Performing Lab: [facility] [place] [facility] [address] [facility] [address] [facility] [place] [facility] LIVER FUNCTION BILIRUBIN.T OTAL [MASS/VOLUM E] IN SERUM OR PLASMA 0.6 mg/dL 0.2 - 1.2 07/18 Specimen Type: SERUM No comment entered. Ordering Provider: ORACIO MENDOZA Report Released Date/Time: Jul 12, 2023 10:12 AM Reporting Lab: [facility] [place] [facility] [address] [facility] [address] Performing Lab: [facility] [place] [facility] [address] [facility] [address] [facility] [place] [facility] THYROID T4 FREE(FT4) THYROXINE (T4) FREE [MASS/VOLUM E] IN SERUM OR PLASMA 1.30 ng/dL 0.6 - 1.6 11/01 /2023 Specimen Type: SERUM No comment entered. Ordering Provider: ORACIO MENDOZA Report Released Date/Time: Jan 15, 2023 04:07 PM Reporting Lab: [facility] [place] [facility] [address] [facility] [address] Performing Lab: [facility] [place] [facility] [address] [facility] [address] [facility] [place] [facility] VITAMIN D (25-OH) 25-HYDROXYV ITAMIN D3 [MASS/VOLUM E] IN SERUM OR PLASMA 46 ng/mL 20 - 50 01/24 Specimen Type: SERUM No comment entered. Ordering Provider: ORACIO MENDOZA Report Released Date/Time: Jan 15, 2023 04:07 PM Reporting Lab: [facility] [place] [facility] [address] [facility] [address] Performing Lab: [facility] [place] [facility] [address] [facility] [address] [facility] [place] [facility] TSH THYROTROPIN [UNITS/VOLU ME] IN SERUM OR PLASMA 0.36 u[IU]/ mL 0.35 - 5.00 01/24 Specimen Type: SERUM No comment entered. Ordering Provider: ORACIO MENDOZA Report Released Date/Time: Jan 15, 2023 04:07 PM Reporting Lab: [facility] [place] [facility] [address] [facility] [address] Performing Lab: [facility] [place] [facility] [address] [facility] [address] [facility] [place] [facility] BASIC METABOLIC PANEL (fasting) UREA NITROGEN [MASS/VOLUM E] IN SERUM OR PLASMA 17 mg/dL 7 - 25 01/24 Specimen Type: SERUM No comment entered. Ordering Provider: ORACIO MENDOZA Report Released Date/Time: Jan 15, 2023 04:07 PM Reporting Lab: [facility] [place] [facility] [address] [facility] [address] Performing Lab: [facility] [place] [facility] [address] [facility] [address] [facility] BASIC METABOLIC PANEL (fasting) GLUCOSE [MASS/VOLUM E] IN SERUM OR PLASMA 94 mg/dL 65 - 100 01/24 Specimen Type: SERUM No comment entered. Ordering Provider: ORACIO MENDOZA Report Released Date/Time: Jan 15, 2023 04:07 PM Reporting Lab: [address] [address] Performing Lab: [address] [address] [facility] BASIC METABOLIC PANEL (fasting) SODIUM [MOLES/VOLU ME] IN SERUM OR PLASMA 141 mmol/L 135 - 145 01/24 Specimen Type: SERUM No comment entered. Ordering Provider: ORACIO MENDOZA Report Released Date/Time: Jan 15, 2023 04:07 PM Reporting Lab: [address] [address] Performing Lab: [address] [address] [facility] BASIC METABOLIC PANEL (fasting) POTASSIUM [MOLES/VOLU ME] IN SERUM OR PLASMA 3.8 mmol/L 3.5 - 5.0 01/24 Specimen Type: SERUM No comment entered. Ordering Provider: ORACIO MENDOZA Report Released Date/Time: Jan 15, 2023 04:07 PM Reporting Lab: [address] [address] Performing Lab: [facility] [address] [address] [facility] BASIC METABOLIC PANEL (fasting) CHLORIDE [MOLES/VOLU ME] IN SERUM OR PLASMA 107 mmol/L 100 - 110 01/24 Specimen Type: SERUM No comment entered. Ordering Provider: ORACIO MENDOZA Report Released Date/Time: Jan 15, 2023 04:07 PM Reporting Lab: [address] [address] Performing Lab: [facility] [address] [address] [facility] BASIC METABOLIC PANEL (fasting) CARBON DIOXIDE, TOTAL [MOLES/VOLU ME] IN SERUM OR PLASMA 27 meq/L 20 - 30 01/24 Specimen Type: SERUM No comment entered. Ordering Provider: ORACIO MENDOZA Report Released Date/Time: Jan 15, 2023 04:07 PM Reporting Lab: [facility] [address] [facility] [address] Performing Lab: [facility] [address] [address] [facility] BASIC METABOLIC PANEL (fasting) CREATININE [MASS/VOLUM E] IN SERUM OR PLASMA 0.90 mg/dL 0.50 - 1.40 01/24 Specimen Type: SERUM No comment entered. Ordering Provider: ORACIO MENDOZA Report Released Date/Time: Jan 15, 2023 04:07 PM Reporting Lab: [facility]OURTR[facility] [address] [address] Performing Lab: [facility]N [address] [address] [facility] BASIC METABOLIC PANEL (fasting) GLOMERULAR FILTRATION RATE/1.73 SQ M.PREDICTED [VOLUME RATE/AREA] IN SERUM, PLASMA OR BLOOD BY CREATININE- BASED FORMULA (CKD-EPI 2020) 86 mL/min 60 01/24 Specimen Type: SERUM No comment entered. Ordering Provider: ORACIO MENDOZA Report Released Date/Time: Jan 15, 2023 04:07 PM Reporting Lab: [facility] [facility] [address] Performing Lab: [facility] [address] [address] [facility] LIPID PANEL FASTING CHOLESTEROL [MASS/VOLUM E] IN SERUM OR PLASMA 109 mg/dL 01/24 Specimen Type: SERUM No comment entered. Ordering Provider: ORACIO MENDOZA Report Released Date/Time: Jan 15, 2023 04:07 PM Reporting Lab: [facility] [place] [facility] [address] [facility] [address] Performing Lab: [facility] [place] [facility] [address] [facility] [address] [facility] [place] [facility] LIPID PANEL FASTING TRIGLYCERID E [MASS/VOLUM E] IN SERUM OR PLASMA 50 mg/dL 0 - 150 01/24 Specimen Type: SERUM No comment entered. Ordering Provider: ORACIO MENDOZA Report Released Date/Time: Jan 15, 2023 04:07 PM Reporting Lab: [facility] [place] [facility] [address] [facility] [facility] [address] Performing Lab: [facility] [place] [facility] [address] [facility] [facility] [address] [facility] LIPID PANEL FASTING CHOLESTEROL IN LDL [MASS/VOLUM E] IN SERUM OR PLASMA BY CALCULATION 59 mg/dL 0 - 129 01/24 Specimen Type: SERUM No comment entered. Ordering Provider: ORACIO MENDOZA Report Released Date/Time: Jan 15, 2023 04:07 PM Reporting Lab: [facility] [place] [facility] [address] [facility] [address] Performing Lab: [facility] [place] [address] [address] [facility] [place] [facility] LIPID PANEL FASTING CHOLESTEROL .TOTAL/CHOL ESTEROL IN HDL [MASS RATIO] IN SERUM OR PLASMA 2.7 01/24 Specimen Type: SERUM No comment entered. Ordering Provider: ORACIO MENDOZA Report Released Date/Time: Jan 15, 2023 04:07 PM Reporting Lab: [facility] [place] [facility] [address] [facility] [facility] [address] Performing Lab: [facility] [place] [place] [facility] [address] [facility] [facility] [address] [facility] [place] [facility] LIPID PANEL FASTING CHOLESTEROL IN HDL [MASS/VOLUM E] IN SERUM OR PLASMA 40 mg/dL 40 - 60 01/24 Specimen Type: SERUM No comment entered. Ordering Provider: ORACIO MENDOZA Report Released Date/Time: Jan 15, 2023 04:07 PM Reporting Lab: [facility] [place] [facility] [address] [facility] [address] Performing Lab: [facility] [place] [facility] [address] [facility] [address] [facility] [place] [facility] Vital Signs Combined list of inpatient and outpatient Vital Signs from Department of Defense and Veterans Affairs, ranging from 12 months to all on record, depending upon the facility. Vital Sign Value Date Comments Source SYSTOLIC BLOOD PRESSURE 124 07/26/19 25 15:13:03 [facility] [place] [facility] DIASTOLIC BLOOD PRESSURE 80 025 15:13:03 [facility] [place] [facility] PULSE OXIMETRY 99 07/25/2024 15:13:03 [facility] [place] WEIGHT 222 07/25/2024 15:13:03 [facility] [place] [facility] BMI 34 kg/m2 07/25/2024 15:13:03 [facility] [place] [facility] PAIN 2 07/25/2024 15:13:03 [facility] [place] HEIGHT 68 07/25/2024 15:13:03 [facility] [place] [facility] TEMPERATURE 98.3 07/25/2024 15:13:03 [facility] [place] [facility] PULSE 72 07/25/2024 15:13:03 [facility] [place] [facility] RESPIRATION 20 07/25/2024 15:13:03 [facility] [place] [facility] WEIGHT 213.9 07/24/2024 11:00:00 [place] BMI 33 kg/m2 07/24/2024 11:00:00 [place] WEIGHT 214 07/17/2024 11:00:00 [place] BMI 33 kg/m2 07/17/2024 11:00:00 [place] WEIGHT 213.8 07/10/2024 11:26:33 [place] BMI 33 kg/m2 07/10/2024 11:26:33 [place] WEIGHT 214.9 07/03/2024 11:40:05 [place] BMI 33 kg/m2 07/03/2024 11:40:05 [place] Encounters Combined list of: 1) Encounters from Department of Veterans Affairs facilities going backup to the last 18 months, not all [place] inpatient encounters are included; 2) Encounters from the Department of Defense facilities going backup to 280 months. Location Location Details Encounter Type Encounter Number Reason For Visit Attending Provider ADM Date DC Date Status Disposition Source [facility] [place] EXERCISE CLASS [id number] Diagnos is: ICD-10- CM Z72.3 Lack of physica l exercis CRISTAL Meyers 01/29 [facility] PT EDUCATION NOC GROUP [id number] Diagnos is: ICD-10- CM Z71.3 Dietary diet counselor ing and surveil RAKESH Murpyh 01/30 [facility] [place] [place] [facility] BEHAVE COUNS 2-10 [id number] Diagnos is: ICD-10- CM E66.09 Other obesity due to excess calorie EVAN Qureshi 02/01 [place] [facility] EXERCISE CLASS [id number] Diagnos is: ICD-10- CM Z72.3 Lack of physica l exercis CRISTAL Meyers 02/05 [facility] EXERCISE CLASS [id number] Diagnos is: ICD-10- CM Z72.3 Lack of physica l exercis Cecily Lange 02/07 [facility] [place] [facility] [place] WEIGHT MGMT CLASS [id number] Diagnos is: ICD-10- CM Z68.29 Body mass index [BMI] 29.0-29 .9, adult GRODON PATHAK 02/08 [place] [facility] EXERCISE CLASS [id number] Diagnos is: ICD-10- CM Z72.3 Lack of physica l exercis e CRISTAL LAZCANO M 02/09 [facility] EXERCISE CLASS [id number] Diagnos is: ICD-10- CM Z72.3 Lack of physica l exercis e CRISTAL LAZCANO M 02/12 [facility] SELF-MGMT EDUC/TRAIN 2-4 [place] [id number] [id number] Diagnos is: ICD-10- CM Z71.3 Dietary diet counselor ing and surveil RAKESH Murphy 02/13 [facility] EXERCISE CLASS [id number] Diagnos is: ICD-10- CM 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 Cecily ONEILL 02/14 [facility] EXERCISE CLASS [id number] Diagnos is: ICD-10- CM Z72.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 SYDNEYCRISTAL LEAL M 02/19 [facility] EXERCISE CLASS [id number] Diagnos is: ICD-10- CM 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 Cecily ONEILL 02/21 [facility] Outpatient Encounter [id number] Diagnos is: ICD-10- CM Z02.89 Encount er for other adminis trative examina tions ZANDER SANCHEZ Hellen 02/22 [facility] [place] [facility] [place] WEIGHT MGMT CLASS [id number] Diagnos is: ICD-10- CM Z68.29 Body mass index [BMI] 29.0-29 .9, adult GORDON PATHAK 02/22 [place] [facility] EXERCISE CLASS [id number] [id number] Diagnos is: ICD-10- CM Z72.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 LARISA COATES 02/23 [facility] EXERCISE CLASS [id number] Diagnos is: ICD-10- CM Z72.3 Lack of physica l exercis e CRISTAL LAZCANO 02/26 [facility] EXERCISE CLASS [id number] Diagnos is: ICD-10- CM Z72.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 LARISA COATES 02/27 [facility] EXERCISE CLASS [id number] Diagnos is: ICD-10- CM Z72.3 Lack of physica l exercis e Cecily ONEILL 02/28 [facility] [place] [facility] [place] WEIGHT MGMT CLASS [id number] Diagnos is: ICD-10- CM Z68.29 Body mass index [BMI] 29.0-29 .9, adult GORDON PATHAK 03/01 [place] [facility] Out[facility] Encounter [id number] 03/05 [facility] EXERCISE CLASS [id number] Diagnos is: ICD-10- CM Z72.3 Lack of physica l exercis e CRISTAL LAZCANO 03/05 [facility] En[facility] [id number] 03/05 [facility] [place] SELF-MGMT EDUC & TRAIN 1 [place] [id number] [id number] Diagnos is: ICD-10- CM G47.33 Obstruc tive sleep apnea (adult) (pediat [facility]) SHELBIMATTEO AMPARO 03/05 [facility] EXERCISE CLASS [id number] [id number] Diagnos is: ICD-10- CM Z72.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 ILIANA UNDERWOOD 03/07 [facility] [place] [facility] LD GROUP BEHAVE COUNS 2-10 [id number] [id number] Diagnos is: ICD-10- CM E66.09 Other obesity due to excess calorie s EVAN KRAMER P 03/08 [place] [facility] EXERCISE CLASS [id number] [id number] Diagnos is: ICD-10- CM Z72.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 LARISA COATES 03/09 [facility] EXERCISE CLASS [id number] Diagnos is: ICD-10- CM 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 Cecily ONEILL 03/14 [facility] [place] [facility] [place] BEHAVE COUNS 2-10 [id number] [id number] Diagnos is: ICD-10- CM E66.3 Overwei EVAN Estevez P 03/15 [place] [facility] [place] [facility] SLEEP STUDY UNATT&RESP EFFT [id number] [id number] Diagnos is: ICD-10- CM G47.33 Obstruc tive sleep apnea (adult) ([facility]) MATTEO MARIO AMPARO 03/16 [facility] [place] [facility] [place] [facility] EXERCISE CLASS [id number] Diagnos is: ICD-10- CM Z72.3 Lack of physica l exercis Cecily Lange 03/21 [facility] [place] [facility] [place] [facility] EXERCISE CLASS [id number] Diagnos is: ICD-10- CM Z72.3 Lack of physica l exercis LARISA Hadley 03/23 [facility] [place] [facility] [place] [facility] PT EDUCATION NOC GROUP [id number] Diagnos is: ICD-10- CM Z71.3 Dietary diet counselor ing and surveil RAKESH Murphy 03/27 [facility] [place] [facility] [place] [facility] EXERCISE CLASS [id number] Diagnos is: ICD-10- CM Z72.3 Lack of physica l exercCecily Gooden 03/28 [facility] [place] [facility] SLEEP STUDY UNATT&RESP EFFT [id number] [id number] Diagnos is: ICD-10- CM G47.33 Obstruc tive sleep apnea (adult) ([facility]) VILMA TONEY 03/28 [facility] [place] BEHAVE COUNS 2-10 [id number] Diagnos is: ICD-10- CM E66.3 Overwei ght EVAN KRAMER P 03/29 [place] [facility] EXERCISE CLASS [id number] Diagnos is: ICD-10- CM Z72.3 Lack of physica l exercis Cecily LangeIN 04/04 [facility] [place] [facility] [place] BEHAVE COUNS 2-10 [id number] [id number] Diagnos is: ICD-10- CM E66.09 Other obesity due to excess calorie s EVAN KRAMER P 04/05 [place] [facility] LD GROUP BEHAVE COUNS 2-10 [id number] [id number] Diagnos is: ICD-10- CM E66.3 Overwei EVAN Estevez JOSH P 04/05 [place] [facility] PT EDUCATION NOC GROUP [id number] Diagnos is: ICD-10- CM Z71.3 Dietary diet counselor ing and surveil RAKESH Murphy 04/10 [facility] [place] [facility] WEIGHT MGMT CLASS [id number] Diagnos is: ICD-10- CM Z68.29 Body mass index [BMI] 29.0-29 .9, adult GORDON PATHAK 04/12 [place] [facility] EXERCISE CLASS [id number] Diagnos is: ICD-10- CM Z72.3 Lack of physica l exercCecily Gooden 04/18 [facility] [place] [facility] WEIGHT MGMT CLASS [id number] [id number] Diagnos is: ICD-10- CM Z68.29 Body mass index [BMI] 29.0-29 .9, adult GORDON PATHAK 04/19 [place] [facility] EXERCISE CLASS [id number] Diagnos is: ICD-10- CM 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 Cecily ONEILL SHANICE 05/02 [facility] [place] [facility] [place] WEIGHT MGMT CLASS [id number] Diagnos is: ICD-10- CM Z68.29 Body mass index [BMI] 29.0-29 .9, adult GORDON PATHAK 05/03 [place] [facility] [place] [facility] EXERCISE CLASS [id number] Diagnos is: ICD-10- CM 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.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 LARISA COATES 05/04 [facility] EXERCISE CLASS [id number] Diagnos is: ICD-10- CM Z72.3 Lack of physica l exercis e NENOCRISTAL LLCourtney M 05/07 [facility] [place] EXERCISE CLASS [id number] Diagnos is: ICD-10- CM 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.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 Cecily ONEILL SHANICE 05/09 [facility] [place] [facility] LD GROUP BEHAVE COUNS 2-10 [id number] [id number] Diagnos is: ICD-10- CM E66.09 Other obesity due to excess calorie s EVAN KRAMER P 05/10 [place] [facility] EXERCISE CLASS [id number] Diagnos is: ICD-10- CM 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.3 Lack of physica l exercis e CRISTAL LAZCANO M 05/11 [facility] PT EDUCATION NOC GROUP [id number] Diagnos is: ICD-10- CM Z71.3 Dietary diet counselor ing and surveil RAKESH Murphy 05/15 [facility] EXERCISE CLASS [id number] Diagnos is: ICD-10- CM 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 Cecily ONEILL SHANICE 05/16 [facility] [place] [facility] CLASS [id number] [id number] Diagnos is: ICD-10- CM Z68.29 Body mass index [BMI] 29.0-29 .9, adult GORDON PATHAK Hellen 05/17 [place] [facility] EXERCISE CLASS [id number] Diagnos is: ICD-10- CM Z72.3 Lack of physica l exercis fransico SYDNEYMELCRISTAL PACourtney Cecily 05/21 [facility] [place] [facility] BEHAVE COUNS 2-10 [id number] [id number] Diagnos is: ICD-10- CM E66.09 Other obesity due to excess calorie EVAN Qureshi P [place] [facility] PT EDUCATION NOC GROUP [id number] [id number] Diagnos is: ICD-10- CM Z71.3 Dietary diet counselor ing and surveil RAKESH Murphy CHENTE 05/28 [facility] [place] [facility] LD GROUP BEHAVE COUNS 2-10 [id number] [id number] Diagnos is: ICD-10- CM E66.09 Other obesity due to excess calorie EVAN Qureshi P 05/30 [place] [facility] LD GROUP BEHAVE COUNS 2-10 [id number] [id number] Diagnos is: ICD-10- CM E66.09 Other obesity due to excess calorie EVAN Qureshi P 06/06 [place] [facility] PT EDUCATION NOC GROUP [id number] Diagnos is: ICD-10- CM Z71.3 Dietary diet counselor ing and surveil RAKESH Murphy CHENTE 06/11 [facility] [place] [facility] LD WEIGHT MGMT CLASS [id number] [id number] Diagnos is: ICD-10- CM E66.3 Overwei ght GORDON PATHAK 06/13 [facility] [facility] CLASS [id number] [id number] Diagnos is: ICD-10- CM Z68.29 Body mass index [BMI] 29.0-29 .9, adult GORDON PATHAK 06/20 [facility] [place] [facility] [place] [facility] PT EDUCATION NOC GROUP [id number] Diagnos is: ICD-10- CM Z71.3 Dietary diet counselor ing and surveil RAKESH Murphy 06/25 [facility] [place] [facility] WEIGHT MGMT CLASS [id number] [id number] Diagnos is: ICD-10- CM Z68.29 Body mass index [BMI] 29.0-29 .9, adult GORDON PATHAK 06/27 [facility] GROUP BEHAVE COUNS 2-10 [id number] [id number] Diagnos is: ICD-10- CM E66.3 Overwei EVAN Estevez P 07/04 [facility] WEIGHT MGMT CLASS [id number] [id number] Diagnos is: ICD-10- CM Z68.29 Body mass index [BMI] 29.0-29 .9, adult GORDON PATHAK 07/18 [facility] [place] [facility] [facility] OFFICE O/P EST MOD 30 MIN [id number] [id number] Diagnos is: ICD-10- CM K21.9 Gastro- esophag eal reflux disease without esophag Guzman Vigil 07/22 [facility] [place] [facility] [place] [facility] Outpatient Encounter [id number] 07/23 [facility] [place] [facility] GROUP BEHAVE COUNS 2-10 [id number] [id number] Diagnos is: ICD-10- CM E66.3 Overwei EVAN Estevez P 07/25 [place] [facility] [place] [facility] PT EDUCATION NOC GROUP [id number] Diagnos is: ICD-10- CM Z71.3 Dietary diet counselor ing and surveil RAKESH Murphy 07/30 [facility] [place] [place] [facility] BEHAVE COUNS 2-10 [id number] [id number] Diagnos is: ICD-10- CM E66.3 OverweEVAN Kendall P 08/01 [place] BEHAVE COUNS 2-10 [id number] [id number] Diagnos is: ICD-10- CM E66.3 Overwei EVAN Estevez P 08/08 [place] [facility] EXERCISE CLASS [id number] [id number] Diagnos is: ICD-10- CM Z72.3 Lack of physica l exercis Cecily Lange 08/21 [facility] [place] [facility] [place] WEIGHT MGMT CLASS [id number] [id number] Diagnos is: ICD-10- CM Z68.29 Body mass index [BMI] 29.0-29 .9, adult GORDON PATHAK 08/22 [place] [facility] EXERCISE CLASS [id number] [id number] Diagnos is: ICD-10- CM Z72.3 Lack of physica l exercis LARISA Hadley 08/23 [facility] [place] [facility] EXERCISE CLASS [id number] Diagnos is: ICD-10- CM Z72.3 Lack of physica l exercis Cecily Lange 08/26 [facility] [place] [place] WEIGHT MGMT CLASS [id number] [id number] Diagnos is: ICD-10- CM Z68.29 Body mass index [BMI] 29.0-29 .9, adult GORDON PATHAK 08/29 [place] [facility] EXERCISE CLASS [id number] [id number] Diagnos is: ICD-10- CM 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 NENOCRISTAL PITTS M 09/06 [facility] [place] [facility] GROUP BEHAVE COUNS 2-10 [id number] [id number] Diagnos is: ICD-10- CM E66.09 Other obesity due to excess calorie s EVAN KRAMER 09/12 [place] [facility] [place] EXERCISE CLASS [id number] [id number] Diagnos is: ICD-10- CM Z72.3 Lack of physica l exercis LARISA Hadley 09/13 [facility] [place] [facility] WEIGHT MGMT CLASS [id number] [id number] Diagnos is: ICD-10- CM Z68.30 Body mass index [BMI] 30.0-30 .9, adult GORDON PATHAK 09/19 [place] [facility] [place] [facility] EXERCISE CLASS [id number] [id number] Diagnos is: ICD-10- CM Z72.3 Lack of physica l exercis LARISA Hadley 09/20 [facility] EXERCISE CLASS [id number] Diagnos is: ICD-10- CM Z72.3 Lack of physica l exercis CRISTAL Meyers 09/23 [facility] [place] 1/ 29672-6.63 [id number] Diagnos is: ICD-10- CM L71.8 Other rosacea EVAN GEE 09/24 [facility] FIT SPECTACLES MONOFOCAL 55064-3.63 [id number] Diagnos is: ICD-10- CM Z46.0 Encount er for fit/adj st of spectac les and contact lenses EVAN GEE 09/24 [facility] EXERCISE CLASS [id number] Diagnos is: ICD-10- CM 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 CRISTAL LAZCANO M 10/14 [facility] EXERCISE CLASS [id number] Diagnos is: ICD-10- CM Z72.3 Lack of physica l exercis Cecily Lange 10/16 [facility] [place] [facility] BEHAVE COUNS 2-10 [id number] [id number] Diagnos is: ICD-10- CM E66.09 Other obesity due to excess calorie s NIAEVAN CH P 10/17 [place] [facility] EXERCISE CLASS [id number] Diagnos is: ICD-10- CM Z72.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 CRISTAL LAZCANO M 10/18 [facility] EXERCISE CLASS [id number] Diagnos is: ICD-10- CM 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.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 CRISTAL LAZCANO M 10/21 [facility] Outpatient Encounter [id number] Guzman MENDOZA 10/22 [facility] POS AIRWAY PRESSURE FILTER [id number] [id number] Diagnos is: ICD-10- CM G47.30 Sleep apnea, unspeci fied ST AMKATHARINA HERNANDEZ E P 10/22 [facility] EXERCISE CLASS [id number] Diagnos is: ICD-10- CM Z72.3 Lack of physica l exercis Cecily Lange 10/23 [facility] [place] [facility] IVNTJ GRP EA ADDL [id number] [id number] Diagnos is: ICD-10- CM Z68.30 Body mass index [BMI] 30.0-30 .9, adult GORDON PATHAK 10/24 [place] [facility] UNLISTED PHYSCL MED/[place] [address]-3.63 1. 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.3 Lack of physica l exercis e CRISTAL LAZCANO 10/28 [facility] COLLJ & INTERPJ DATA EA 30 D [id number] Diagnos is: ICD-10- CM G47.30 Sleep apnea, unspeci fied ST AMANT,KATHARINA E P 10/29 [facility] EXERCISE CLASS [id number] [id number] Diagnos is: ICD-10- CM Z72.3 Lack of physica l exercis Cecily Lange SHANICE 10/30 [facility] [place] TH BHV IVNTJ GRP EA ADDL [id number] Diagnos is: ICD-10- CM Z68.30 Body mass index [BMI] 30.0-30 .9, adult GORDON PATHAK 10/31 [place] [facility] EXERCISE CLASS [id number] Diagnos is: ICD-10- CM Z72.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 CRISTAL LAZCANO M 11/01 [facility] EXERCISE CLASS [id number] [id number] Diagnos is: ICD-10- CM Z72.3 Lack of physica l exercis e CRISTAL LAZCANO M 11/04 [facility] EXERCISE CLASS [id number] Diagnos is: ICD-10- CM Z72.3 Lack of physica l exercis Cecily Lange SHANICE 11/06 [facility] [place] GROUP BEHAVE COUNS 2-10 [id number] [id number] Diagnos is: ICD-10- CM E66.09 Other obesity due to excess calorie s NIAEVAN CH 11/07 [place] [facility] EXERCISE CLASS 07158-9.63 1. Diagnos is: ICD-10- CM Z72.3 Lack of physica l exercis Cecily Lange SHANICE 11/13 [facility] [place] HLTH BHV IVNTJ GRP EA ADDL [id number] [id number] Diagnos is: ICD-10- CM Z68.30 Body mass index [BMI] 30.0-30 .9, adult GORDON PATHAK [place] [facility] EXERCISE CLASS [id number] [id number] Diagnos is: ICD-10- CM Z72.3 Lack of physica l exercis Cecily Lange SHANICE 11/15 [facility] EXERCISE CLASS [id number] [id number] Diagnos is: ICD-10- CM Z72.3 Lack of physica l exercis CRISTAL Meyers 11/18 [facility] EXERCISE CLASS 35675-4.63 1. Diagnos is: ICD-10- CM Z72.3 Lack of physica l exercis Cecily LangeIN 11/20 [facility] [place] GROUP BEHAVE COUNS 2-10 [id number] [id number] Diagnos is: ICD-10- CM E66.09 Other obesity due to excess calorie s EVAN KRAMER [place] [facility] EXERCISE CLASS [id number] [id number] Diagnos is: ICD-10- CM Z72.3 Lack of physica l exercis Cecily Lange SHANICE 11/27 [facility] [place] HLTH BHV IVNTJ GRP EA ADDL [id number] [id number] Diagnos is: ICD-10- CM Z68.30 Body mass index [BMI] 30.0-30 .9, adult GORDON PATHAK 11/28 [place] [facility] EXERCISE CLASS [id number] [id number] Diagnos is: ICD-10- CM Z72.3 Lack of physica l exercis LARISA Hadley 09/06 /2024 [facility] EXERCISE CLASS [id number] 1. 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 CRISTAL LAZCANO LLY M 12/04 [facility] GROUP BEHAVE COUNS 2-10 [id number] [id number] Diagnos is: ICD-10- CM E66.09 Other obesity due to excess calorie s EVAN KRAMER P 12/05 [place] [facility] PT EDUCATION NOC GROUP [id number] [id number] Diagnos is: ICD-10- CM Z71.3 Dietary diet counselor ing and surveil RAKESH Murphy 12/10 [facility] HLTH BHV IVNTJ GRP EA ADDL [id number] Diagnos is: ICD-10- CM Z73.3 Stress, not elsewhe re classif ied JOSE ALBERTO HANLEY RA 12/10 [facility] [place] [facility] BHV IVNTJ GRP EA ADDL [id number] [id number] Diagnos is: ICD-10- CM Z68.30 Body mass index [BMI] 30.0-30 .9, adult GORDON PATHAK 12/12 [place] [facility] EXERCISE CLASS [id number] [id number] Diagnos is: ICD-10- CM Z72.3 Lack of physica l exercis CRISTAL Meyers 12/16 [facility] [place] HLTH BHV IVNTJ GRP EA ADDL [id number] [id number] Diagnos is: ICD-10- CM Z68.30 Body mass index [BMI] 30.0-30 .9, adult GORDON PATHAK 12/19 [place] [facility] PT EDUCATION NOC GROUP [id number] 1. Diagnos is: ICD-10- CM Z71.3 Dietary diet counselor ing and surveil RAKESH Murphy CHENTE 12/24 [facility] LD GROUP BEHAVE COUNS 2-10 [id number] [id number] Diagnos is: ICD-10- CM E66.09 Other obesity due to excess calorie bebeto CHOUDHURYANEVAN MORENO P 12/26 [place] BHV IVNTJ GRP EA ADDL [id number] [id number] Diagnos is: ICD-10- CM Z68.30 Body mass index [BMI] 30.0-30 .9, adult GORDON PATHAK 01/02 [place] [facility] PT EDUCATION NOC GROUP 89197-9.63 1. Diagnos is: ICD-10- CM Z71.3 Dietary diet counselor ing and surveil RAKESH Murphy CHENTE 01/07 [facility] [place] [facility] [place] GROUP BEHAVE COUNS 2-10 33060-0.63 1BY. 38 Diagnos is: ICD-10- CM E66.09 Other obesity due to excess calorie EVAN Qureshi JOSH P 01/09 [place] BHV IVNTJ GRP EA ADDL [id number] [id number] Diagnos is: ICD-10- CM Z68.30 Body mass index [BMI] 30.0-30 .9, adult GORDON PATHAK 01/16 [place] [facility] OFFICE O/P EST MOD 30 MIN [id number] 1. Diagnos is: ICD-10- CM G47.30 Sleep apnea, unspeci fied Guzman MENDOZA 01/20 [place] [facility] [place] [facility] OFFICE O/P EST MOD 30 MIN [id number] [id number] Diagnos is: ICD-10- CM G47.33 Obstruc tive sleep apnea (adult) ([facility] [place]) ARELIS NUNO 01/21 [facility] Outpatient Encounter [id number] Diagnos is: ICD-10- CM G47.33 Obstruc tive sleep apnea (adult) ([facility]) ARELIS NUNO 01/21 [place] [facility] [place] [facility] [place] GROUP BEHAVE COUNS 2-10 54329-8.63 1BY. 47 Diagnos is: ICD-10- CM E66.811 Obesity , class 1 NIA,[place] CHAEL P 01/23 [facility] [place] GROUP BEHAVE COUNS 2-10 [id number] [id number] Diagnos is: ICD-10- CM E66.811 Obesity , class 1 [place] CHAEL P 01/30 [facility] [place] BHV IVNTJ GRP EA ADDL [id number] [id number] Diagnos is: ICD-10- CM Z68.30 Body mass index [BMI] 30.0-30 .9, adult GORDON PATHAK 02/06 [facility] [place] BHV IVNTJ GRP EA ADDL [id number] [id number] Diagnos is: ICD-10- CM Z68.30 Body mass index [BMI] 30.0-30 .9, adult GORDON PATHAK 02/13 [place] [facility]P EST MOD 30 MIN [id number] [id number] Diagnos is: ICD-10- CM G47.33 Obstruc tive sleep apnea (adult) ([facility]) ARELIS NUNO 02/25 [place] [facility] Outpatient Encounter [id number] [id number] Diagnos is: ICD-10- CM G47.33 Obstruc tive sleep apnea (adult) ([facility] [place]) YAAKOVARELIS02/25 [facility] [place] BHV IVNTJ GRP EA ADDL [id number] [id number] Diagnos is: ICD-10- CM Z68.30 Body mass index [BMI] 30.0-30 .9, adult GORDON PATHAK 02/27 [place] BEHAVE COUNS 2-10 55113-3.63 [id number].[id number] Diagnos is: ICD-10- CM E66.811 Obesity , class 1 [place] CHAEL P 03/06 [place] BEHAVE COUNS 2-10 95479-2.63 [id number] Diagnos is: ICD-10- CM E66.811 Obesity , class 1 [place] CHAEL P 03/13 [place] BHV IVNTJ GRP EA ADDL 49501-5.63 1BY. 02 Diagnos is: ICD-10- CM Z68.30 Body mass index [BMI] 30.0-30 .9, adult GORDON PATHAK 04/03 [place] [facility] BHV IVNTJ GRP EA ADDL [id number] [id number] 02 Diagnos is: ICD-10- CM Z68.30 Body mass index [BMI] 30.0-30 .9, adult GORDON PATHAK 04/10 [place] [facility] BHV IVNTJ GRP EA ADDL [id number] [id number] Diagnos is: ICD-10- CM Z68.30 Body mass index [BMI] 30.0-30 .9, adult GORDON PATHAK 04/24 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 [place] [facility] Outpatient Encounter [id number] 07/03 [facility] [place] [facility] EXERCISE CLASS [id number] [id number] Diagnos is: ICD-10- CM Z72.3 Lack of physica l exercbernie e RCISTAL LAZCANO 07/07 [facility] EXERCISE CLASS [id number] [id number] Diagnos is: ICD-10- CM Z72.3 Lack of physica l Cecily Arango 07/09 [facility] BEHAVE COUNS 2-10 84138-9.63 [id number] Diagnos is: ICD-10- CM E66.811 Obesity , class 1 NIAEVAN CHAEL P 07/10 [place] [facility] Outpatient Encounter [id number] 07/10 [place] [facility] [place] [facility] LD GROUP BEHAVE COUNS 2-10 23128-9.63 1BY. 92 Diagnos is: ICD-10- CM E66.811 Obesity , class 1 NIAEVAN CHAEL P 07/17 [facility] [place] [facility] Outpatient Encounter [id number] 07/21 [place] [facility] [place] [facility] Outpatient Encounter [id number] 07/22 [facility] [place] [facility] LD HLTH BHV IVNTJ GRP EA ADDL [id number] [id number] Diagnos is: ICD-10- CM Z68.30 Body mass index [BMI] 30.0-30 .9, adult GORDON PATHAK 07/24 [facility] [place] [facility] Outpatient Encounter [id number] Guzman MENDOZA 07/25 [place] [facility] [place] [facility] Social History Combined list of available smoking, tobacco, and other social history from Department of Defense and Veterans Affairs facilities. Social History Type Response Date Comment Sour e Tobacco smoking status KYIS VA-TOBACCO FORMER USER 01[facility]21/2024 [facility] [place] [facility] History of tobacco use VA-TOBACCO QUIT 15 YRS OR MORE 01/21[facility]20[facility] [place] [facility] History of tobacco use GA-TOBACCO QUIT 15 YRS OR MORE 01/26/2023 [facility] [place] [facility] History of tobacco use GA-TOBACCO FORMER USER 01/27/2022 [facility] [place] [facility] History of tobacco use GA-TOBACCO FORMER USER 09/17/2020 [facility] [place] [facility] History of tobacco use GA-TOBACCO NEVER USED 06/04/2019 [facility] [place] [facility] History of tobacco use GA-TOBACCO FOR[facility]ER [facility] [place] [facility] History of tobacco use QUIT TOBACCO USE > 7 YEARS AGO 04/04/2017 [facility] [place] [facility] History of tobacco use QUIT TOBACCO USE > 7 YEARS AGO 04/05/2016 quit in 1985 [facility] Plan of Care List of future care activities from Department of Veterans Affairs facilities. Additional future care activities may be listed in the Assessment and Plan section. Date/Time Care Activity Care Activity Detail Facili ty 10/07/2024 AMBULATORY - MEDICINE AM[facility]ULAT[facility]
--- OUTSIDE RECORDS SUMMARY | 2024-07-28 11:53 | XMS_ITS | Encounter Summary ---
Author Name [facility] [facility] [place] [facility] [place] Address [address] [place] [address] Care Team Providers Care Brine Tank Tender Name Role Phone LEN MENDOZA Primary [...] PART B Sep 23, 2014 PART B [id number] [phone] HARMONY MCCALL JR PATIENT MEDICARE (WNR) MEDICARE (M) PART A July 25, 2007 PART A [id number] HARMONY MCCALL JR PATIENT MEDICARE (WNR) MEDICARE (M) PART B July 25, 2007 PART B [id number] HARMONY MCCALL JR PATIENT MEDICARE (WNR) MEDICARE (M) PART A July 25, 2007 PART A [id number] HARMONY MCCALL JR PATIENT [employer] (OPT/PROF ) [facility] * Jan 24, 2015 [id number] CAROLE MCCALL SPOUSE Selected Encounter This section includes the information on record at VA for the Encounter. Date/Time Encounter Type Encounter Description Reason Pro vider Source IHE Encounter Template Text not used by VA
--- OUTSIDE RECORDS SUMMARY | 2024-07-28 11:53 | XMS_ITS | Encounter Summary ---
Author Name [facility] [facility] [place] Address [address] [place] [address] Care Team Providers Care Varitypist Name Role Phone LEN MENDOZA Primary Care [...] PART B Sep 23, 2014 PART B [id number] [phone] HARMONY MCCALL JR PATIENT MEDICARE (WNR) MEDICARE (M) PART A July 25, 2007 PART A [id number] [phone] HARMONY MCCALL JR PATIENT MEDICARE (WNR) MEDICARE (M) PART B July 25, 2007 PART B [id number] HARMONY MCCALL JR PATIENT MEDICARE (WNR) MEDICARE (M) PART A July 25, 2007 PART A [id number] HARMONY MCCALL JR PATIENT [employer] (OPT/PROF ) [facility] * Jan 24, 2015 [id number] CAROLE MCCALL SPOUSE Selected Encounter This section includes the information on record at [place] for the Encounter. Date/Time Encounter Type Encounter Description Reason Provider Source July 24, 2024 11:00 AM [facility] IVNTJ GRP EA ADDL WEIGHT MGMT & MOVE! PROG - GRP ICD-10-CM Z68.30 Body mass index [BMI] 30.0-30.9, adult GORDON PATHAK [facility] Encounter Template Text not used by [place] [...] activities for the patient from all [place] [facility] This section includes future appointments and future orders which are active, pending or scheduled. Future Appointments This section includes appointments that were scheduled to occur 6 months from the date of the Encounter, up to a maximum of 20 appointments. The data comes from all [facility] facilities. Appointment Date/Time Appointment Type Appointme nt Facility Name July 25, 2024 03:30 PM AMBULATORY - MEDICINE [facility] Oct 07, 2024 10:00 AM AMBULATORY - MEDICINE [facility] Active, Pending, and Scheduled Orders This section includes a listing of several types of active, pending, and scheduled orders, including clinic medications orders, diagnostic test orders, procedure orders and consult orders; where the start date of the order is 45 days before the date of the Encounter or 45 days after the date of theEncounter. The data comes from all [facility]. Test Date/Time Test Type Test Details Facility Name Jul 10, 2024 12:00 AM Laboratory - Chemi stry Order VITAMIN B12 BLOOD (SST-SERUM) [facility] Jul 10, 2024 12:00 AM Laboratory - Chemi stry Order IRON & TIBC PANEL BLOOD (SST-SERUM) [facility] Jul 10, 2024 12:00 AM Laboratory - Chemi stry Order BASIC METABOLIC PANEL (non-fasting) BLOOD (SST-SERUM) [facility] Jul 10, 2024 12:00 AM Laboratory - Chemi stry Order CBC BLOOD (LAV-BLOOD) [facility] Jul 10, 2024 12:00 AM Laboratory - Chemi stry Order LIPID PANEL, NON FASTING BLOOD (SST-SERUM) [facility] Jul 10, 2024 12:00 AM Laboratory - Chemi stry Order LIVER FUNCTION BLOOD (SST-SERUM) [facility] Jul 10, 2024 12:00 AM Laboratory - Chemi stry Order TSH BLOOD (SST-SERUM) [facility] Jul 10, 2024 12:00 AM Laboratory - Chemi stry Order FERRITIN BLOOD (SST-SERUM) [facility] Vital Signs: All taken on [...] AUTHOR: GORDON PATHAK COSIGNER: URGENCY: STATUS: COMPLETED [place] participated in MOVE! Group Counseling via [facility] on July 24, 2024. The [place] was provided with information on [facility] and [...] Name [ ] Address Veterans attended the [facility] MOVE! group session on this date. MOVE! [...] Group after merging the groups from the [facility] and [facility]. Additionally, some Veterans joined the support [...] plans for the coming week. The next [facility] MOVE! group meeting will be held on July @ 11:00am. 's reported weight was 213.9 lbs. and lost 0.1 pounds since last group attended. Dx: Obesity Class 1 BMI 30.0-30.9 The session lasted for 1 hour in duration. /johanny/ GORDON PATHAK, Ph.D. CLINICAL PSYCHOLOGIST Signed: 07/24/2024 19:36 Receipt Acknowledged By: * AWAITING SIGNATURE * RAMIRO NICKERSON 07/28/2024 08:59 /es/ SANTIAGO KRAMER STAFF DIETITIAN GORDON PATHAK
== END ==
LOC: HO.CARD 10:29
PROVIDERS: PCP Internal Medicine; Visit Provider Nurse Practitioner Family
DX: R00.1 Bradycardia, unspecified (principal); R56.9 Unspecified convulsions
CPT/HCPCS: 93270

== ENCOUNTER → 2024-07-28 10:35 | Outpatient (BNV) | payer MEDICARE, OTHER, SELFPAY | PROVIDERS: PCP Internal Medicine; Visit Provider Internal Medicine | DX: I47.10 Supraventricular tachycardia, unspecified (principal); I48.91 Unspecified atrial fibrillation | CPT/HCPCS: 93272 ==

== ENCOUNTER 2024-08-07 10:52 | Day surgery (SDC) | payer MEDICARE, OTHER, SELFPAY ==
--- OUTSIDE RECORDS SUMMARY | 2024-08-06 08:54 | XMS_ITS | Continuity of Care Document ---
Author Name [facility] Organization [facility] Care Team Providers Care Superintendent Building Name Role Phone [facility] Unavailable Unavailable Problems Combined list of problems [...] Active Condition [facility] Syncope Active Condition [facility] Diagnosis: ICD-10-CM E66.811 Obesity, class 1 Active Diagnosis [facility] Diagnosis: ICD-10-CM R55 Syncope and collapse Active Diagnosis [facility] Diagnosis: ICD-10-CM Z68.30 Body mass index [BMI] 30.0-30.9, adult Active Diagnosis [facility] Diagnosis: ICD-10-CM Z72.3 Lack of physical exercise Active Diagnosis [facility] Diagnosis: ICD-10-CM Z71.3 Dietary counseling and surveillance Active Diagnosis [facility] Diagnosis: ICD-10-CM G47.33 Obstructive sleep apnea (adult) (pediatric) Active Diagnosis [facility] Diagnosis: ICD-10-CM G47.30 Sleep apnea, unspecified Active Diagnosis [facility] Diagnosis: ICD-10-CM E66.09 Other obesity due to excess calories Active Diagnosis [facility] Diagnosis: ICD-10-CM Z73.3 Stress, not elsewhere classified Active Diagnosis [facility] Diagnosis: ICD-10-CM Z68.29 Body mass index [BMI] 29.0-29.9, adult Active Diagnosis [facility] Diagnosis: ICD-10-CM Z46.0 Encounter for fit/adjst of spectacles and contact lenses Active Diagnosis [facility] Diagnosis: ICD-10-CM L71.8 Other rosacea Active Diagnosis [facility] Diagnosis: ICD-10-CM E66.3 Overweight Active Diagnosis [facility] Diagnosis: ICD-10-CM K21.9 Gastro-esophageal reflux disease without esophagitis Active Diagnosis [facility] Diagnosis: ICD-10-CM Z02.89 Encounter for other administrative examinations Active Diagnosis [facility] Medications Combined list of outpatient medications from Department of Defense and Veterans Affairs facilities.Medications provided include 1) outpatient medications from the last 15 months, and 2) patient-reported medications. Medication Details Route Status Patient Instructions Prescription Expires Prescription Number Last Dispense Date Ordering Provider Order Date Order Qty Source ASPIRIN 81MG TAB,CHEWABL E CHEW ONE TABLET BY MOUTH DAILY [facility] BROMOCRIPTI NE MESYLATE 0.8MG TAB TAKE THREE TABLETS BY MOUTH ONCE DAILY [facility] ACTIVE BR[facility] CALCIUM 200MG (CA CITRATE-950 MG) TAB TAKE THREE TABLETS BY MOUTH DAILY [facility]AL ACTIVE ,2016 [facility] CARBOXYMETH YLCELLULOSE NA 0.5% SOLN,OPH INSTILL 1 DROP INTO EACH EYE FOUR TIMES A DAY FOR DRY EYE OPHTHA LMIC ACTIVE 09/25/2024 [id number] 4 Cecily GEE 2023 45 [facility] CETIRIZINE HCL 10MG TAB TAKE ONE TABLET BY MOUTH DAILY ORAL ACTIVE BRITT, [facility] 2016 [facility] CHOLECALCIF FORTINO 25MCG (1,000UNIT) TAB TAKE ONE TABLET BY MOUTH DAILY ORAL ACTIVE BALWINDER [facility] 2016 [facility] LEVOTHYROXI NE NA 125MCG TAB (SYNTHROID) TAKE ONE TABLET BY MOUTH EVERY MORNING 30 MINUTES BEFORE BREAKFAS T ORAL ACTIVE LEN MENDOZA 2023 [facility] [place] POTASSIUM 100MG TAB TAKE ONE TABLET BY MOUTH ONCE DAILY ORAL ACTIVE LEN MENDOZA 2017 [facility] OTHER CAP/TAB TAKE 5 MG BY MOUTH DAILY ORAL ACTIVE BALWINDER [facility] 2016 [facility] TAMSULOSIN HCL 0.4MG CAP TAKE 1 CAPSULE BY MOUTH ONCE DAILY ORAL ACTIVE LEN MENDOZA 2019 [facility] IELD Immunizations Combined list of available immunizations from the Department of Defense and Veterans Affairs facilities. Immunization Series Date Given Administered By Site Reaction Lot Number CVX Code Drug Help Desk Operator Status Comments Source INFLUENZA, HIGH-DOSE, TRIVALENT, PF 2023 [facility] H RIGHT DELTO ID [id number] 135 complet ed [facility] INFLUENZA, HIGH-DOSE, QUADRIVALENT 2022 [facility] LEFT DELTO ID [id number] 197 complet ed [facility] COVID-19 (MODERNA), MRNA, LNP-S, PF, 100 MCG/0.5ML DOSE OR 50 MCG/0.25ML DOSE 3 2021 207 complet ed MOD; [id number]; 2 [facility] COVID-19 (MODERNA), MRNA, LNP-S, PF, 100 MCG OR 50 MCG DOSE 3 2020 207 complet ed MOD; [id number]; 2 [facility] INFLUENZA VACCINE, QUADRIVALENT, ADJUVANTED 2020 205 complet ed [facility] COVID-19 (MODERNA), MRNA, LNP-S, PF, 100 MCG/0.5 ML DOSE 2 2020 207 complet ed MOD; [id number]; 1 [facility] COVID-19 (MODERNA), MRNA, LNP-S, PF, 100 MCG/0.5 ML DOSE 1 2020 207 complet ed MOD; [id number]; 1 [facility] [...] Site: Left Deltoid [facility] Results Combined list of recent [...] 12, 2023 10:12 AM Reporting Lab: [facility] [place] [facility] [address] [facility] [address] Performing Lab: [facility] [address] [facility] [address] [facility] LIPID PANEL, NON FASTING CHOLESTEROL [MASS/VOLUM E] IN SERUM OR PLASMA 119 mg/dL 07/18 Specimen Type: SERUM No comment entered. Ordering Provider: ORACIO MENDOZA Report Released Date/Time: Jul 12, 2023 10:12 AM Reporting Lab: [facility] [place] [facility] [address] [facility] [address] Performing Lab: [facility] [place] [facility] [address] [facility] [address] [facility] LIPID PANEL, NON FASTING TRIGLYCERID E [MASS/VOLUM E] IN SERUM OR PLASMA 48 mg/dL 0 - 150 07/18 Specimen Type: SERUM No comment entered. Ordering Provider: ORACIO MENDOZA Report Released Date/Time: Jul 12, 2023 10:12 AM Reporting Lab: [facility] [place] [facility] [address] [facility] [address] Performing Lab: [facility]ITALRNORTHE[facility]ENTERN [facility]CH[facility] [address] [facility] [address] [facility] LIPID PANEL, NON FASTING CHOLESTEROL IN LDL [MASS/VOLUM E] IN SERUM OR PLASMA BY CALCULATION 63 mg/dL 0 - 129 07/18 Specimen Type: SERUM No comment entered. Ordering Provider: ORACIO MENDOZA Report Released Date/Time: Jul 12, 2023 10:12 AM Reporting Lab: [facility] [address] [facility] [address] Performing Lab: [facility] [address] [facility] [address] [facility] LIPID PANEL, NON FASTING CHOLESTEROL .TOTAL/CHOL ESTEROL IN HDL [MASS RATIO] IN SERUM OR PLASMA 2.6 07/18 Specimen Type: SERUM No comment entered. Ordering Provider: ORACIO MENDOZA Report Released Date/Time: Jul 12, 2023 10:12 AM Reporting Lab: [facility] [address] [facility] [address] Performing Lab: [facility] [place] [facility] [address] [facility] [address] [facility] LIPID PANEL, NON FASTING CHOLESTEROL IN HDL [MASS/VOLUM E] IN SERUM OR PLASMA 46 mg/dL 40 - 60 07/18 Specimen Type: SERUM No comment entered. Ordering Provider: ORACIO MENDOZA Report Released Date/Time: Jul 12, 2023 10:12 AM Reporting Lab: [facility] [address] [facility] [address] Performing Lab: [facility] [address] [facility] [address] [facility] CBC LEUKOCYTES [#/VOLUME] IN BLOOD BY AUTOMATED COUNT 7.33 10*3/u L 4.50 - 11.00 07/18 Specimen Type: BLOOD No comment entered. Ordering Provider: ORACIO MENDOZA Report Released Date/Time: Jul 12, 2023 10:12 AM Reporting Lab: [facility] [address] [facility] [address] Performing Lab: [facility] [address] [facility] [address] [facility] CBC ERYTHROCYTE S [#/VOLUME] IN BLOOD BY AUTOMATED COUNT 4.94 10*6/u L 4.23 - 5.66 07/18 Specimen Type: BLOOD No comment entered. Ordering Provider: ORACIO MENDOZA Report Released Date/Time: Jul 12, 2023 10:12 AM Reporting Lab: [facility] [address] [facility] [address] Performing Lab: [facility] [address] [facility] [address] [facility] CBC HEMOGLOBIN [MASS/VOLUM E] IN BLOOD 15.1 g/dL 12.8 - 17 07/18 Specimen Type: BLOOD No comment entered. Ordering Provider: ORACIO MENDOZA Report Released Date/Time: Jul 12, 2023 10:12 AM Reporting Lab: [facility] [place] [facility] [address] [facility] [address] Performing Lab: [facility] [place] [address] [address] [facility] CBC HEMATOCRIT [VOLUME FRACTION] OF BLOOD BY AUTOMATED COUNT 46.2 39.2 - 50.4 07/18 Specimen Type: BLOOD No comment entered. Ordering Provider: ORACIO MENDOZA Report Released Date/Time: Jul 12, 2023 10:12 AM Reporting Lab: [facility] [place] [address] [address] Performing Lab[facility] [place] [facility] [address] [facility] [address] [facility] CBC MCV [ENTITIC VOLUME] BY AUTOMATED COUNT 93.5 fL 82 - 99 07/18 Specimen Type: BLOOD No comment entered. Ordering Provider: ORACIO MENDOZA Report Released Date/Time: Jul 12, 2023 10:12 AM Reporting Lab: [facility] [address] [facility] [address] Performing Lab: [facility] [place] [address] [address] [facility] CBC MCHC [MASS/VOLUM E] BY AUTOMATED COUNT 32.7 g/dL 30.8 - 35.1 07/18 Specimen Type: BLOOD No comment entered. Ordering Provider: ORACIO MENDOZA Report Released Date/Time: Jul 12, 2023 10:12 AM Reporting Lab: [facility] [place] [facility] [address] [facility] [address] Performing Lab: [facility] [place] [facility] [address] [facility] [address] [facility] CBC PLATELETS [#/VOLUME] IN BLOOD BY AUTOMATED COUNT 181 10*3/u L 140 - 360 07/18 Specimen Type: BLOOD No comment entered. Ordering Provider: ORACIO MENDOZA Report Released Date/Time: Jul 12, 2023 10:12 AM Reporting Lab: [facility] [place] [address] [address] Performing Lab: [facility] [place] [facility] [address] [facility] [address] [facility] CBC ERYTHROCYTE DISTRIBUTIO N WIDTH [RATIO] BY AUTOMATED COUNT 13.2 12.0 - 16.0 07/18 Specimen Type: BLOOD No comment entered. Ordering Provider: ORACIO MENDOZA Report Released Date/Time: Jul 12, 2023 10:12 AM Reporting Lab: [facility] [place] [address] [address] Performing Lab: [facility] [place] [facility] [address] [facility] [address] [facility] CBC MCH [ENTITIC MASS] BY AUTOMATED COUNT 30.6 pg 26.2 - 32.6 07/18 Specimen Type: BLOOD No comment entered. Ordering Provider: ORACIO MENDOZA Report Released Date/Time: Jul 12, 2023 10:12 AM Reporting Lab: [facility] [place] [address] [address] Performing Lab: [facility] [place] [address] [address] [facility] LIVER FUNCTION PROTEIN [MASS/VOLUM E] IN SERUM OR PLASMA 6.7 g/dL 6.0 - 8.3 07/18 Specimen Type: SERUM No comment entered. Ordering Provider: ORACIO MENDOZA Report Released Date/Time: Jul 12, 2023 10:12 AM Reporting Lab: [facility] [address] [facility] [address] Performing Lab: [facility] [address] [facility] [address] [facility] LIVER FUNCTION ALBUMIN [MASS/VOLUM E] IN SERUM OR PLASMA 3.8 g/dL 3.5 - 5.0 07/18 Specimen Type: SERUM No comment entered. Ordering Provider: ORACIO MENDOZA Report Released Date/Time: Jul 12, 2023 10:12 AM Reporting Lab: [facility] [place] [facility] [address] [facility] [address] Performing Lab: [facility] [place] [facility] [address] [facility] [address] [facility] LIVER FUNCTION ALKALINE PHOSPHATASE [ENZYMATIC ACTIVITY/VO LUME] IN SERUM OR PLASMA 55 U/L 40 - 150 07/18 Specimen Type: SERUM No comment entered. Ordering Provider: ORACIO MENDOZA Report Released Date/Time: Jul 12, 2023 10:12 AM Reporting Lab: [facility] [address] [facility] [address] Performing Lab: [facility] [address] [facility] [address] [facility] LIVER FUNCTION ASPARTATE AMINOTRANSF ERASE [ENZYMATIC ACTIVITY/VO LUME] IN SERUM OR PLASMA 26 U/L 5 - 34 07/18 Specimen Type: SERUM No comment entered. Ordering Provider: ORACIO MENDOZA Report Released Date/Time: Jul 12, 2023 10:12 AM Reporting Lab: [facility] [address] [facility] [address] Performing Lab: [facility] [address] [facility] [address] [facility] LIVER FUNCTION ALANINE AMINOTRANSF ERASE [ENZYMATIC ACTIVITY/VO LUME] IN SERUM OR PLASMA 26 U/L 07/18 Specimen Type: SERUM No comment entered. Ordering Provider: ORACIO MENDOZA Report Released Date/Time: Jul 12, 2023 10:12 AM Reporting Lab: [facility] [address] [facility] [address] Performing Lab: [facility] [address] [facility] [address] [facility] LIVER FUNCTION BILIRUBIN.T OTAL [MASS/VOLUM E] IN SERUM OR PLASMA 0.6 mg/dL 0.2 - 1.2 07/18 Specimen Type: SERUM No comment entered. Ordering Provider: ORACIO MENDOZA Report Released Date/Time: Jul 12, 2023 10:12 AM Reporting Lab: [facility] [address] [facility] [address] Performing Lab: [facility] [address] [facility] [address] [facility]ITAL[facility] TRN [facility] BASIC METABOLIC PANEL (non-fast ing) UREA NITROGEN [MASS/VOLUM E] IN SERUM OR PLASMA 19 mg/dL 7 - 25 07/18 Specimen Type: SERUM No comment entered. Ordering Provider: ORACIO MENDOZA Report Released Date/Time: Jul 12, 2023 10:12 AM Reporting Lab: [facility] [address] [facility] [address] Performing Lab: [facility] [address] [facility] [address] [facility] TRN [facility] BASIC METABOLIC PANEL (non-fast ing) GLUCOSE [MASS/VOLUM E] IN SERUM OR PLASMA 95 mg/dL 65 - 100 07/18 Specimen Type: SERUM No comment entered. Ordering Provider: ORACIO MENDOZA Report Released Date/Time: Jul 12, 2023 10:12 AM Reporting Lab: [facility] [address] [facility] [address] Performing Lab: [facility] [address] [facility] [address] [facility] [place] [facility] BASIC METABOLIC PANEL (non-fast ing) SODIUM [MOLES/VOLU ME] IN SERUM OR PLASMA 142 mmol/L 135 - 145 07/18 Specimen Type: SERUM No comment entered. Ordering Provider: ORACIO MENDOZA Report Released Date/Time: Jul 12, 2023 10:12 AM Reporting Lab: [facility] [address] [facility] [address] Performing Lab: [facility] [place] [facility] [address] [facility] [address] [facility] [place] [facility] BASIC METABOLIC PANEL (non-fast ing) POTASSIUM [MOLES/VOLU ME] IN SERUM OR PLASMA 4.7 mmol/L 3.5 - 5.0 07/18 Specimen Type: SERUM No comment entered. Ordering Provider: ORACIO MENDOZA Report Released Date/Time: Jul 12, 2023 10:12 AM Reporting Lab: [facility] [place] [facility] [address] [facility] [address] Performing Lab: [facility] [address] [facility] [address] [facility] [place] [facility] BASIC METABOLIC PANEL (non-fast ing) CHLORIDE [MOLES/VOLU ME] IN SERUM OR PLASMA 107 mmol/L 100 - 110 07/18 Specimen Type: SERUM No comment entered. Ordering Provider: ORACIO MENDOZA Report Released Date/Time: Jul 12, 2023 10:12 AM Reporting Lab: [facility] [address] [facility] [address] Performing Lab: [facility] [facility] [address] [facility] [address] [facility] [place] [facility] BASIC METABOLIC PANEL (non-fast ing) CARBON DIOXIDE, TOTAL [MOLES/VOLU ME] IN SERUM OR PLASMA 28 meq/L 20 - 30 07/18 Specimen Type: SERUM No comment entered. Ordering Provider: ORACIO MENDOZA Report Released Date/Time: Jul 12, 2023 10:12 AM Reporting Lab: [address] [address] Performing Lab: [address] [address] [facility] BASIC METABOLIC PANEL (non-fast ing) CREATININE [MASS/VOLUM E] IN SERUM OR PLASMA 0.90 mg/dL 0.50 - 1.40 07/18 Specimen Type: SERUM No comment entered. Ordering Provider: ORACIO MENDOZA Report Released Date/Time: Jul 12, 2023 10:12 AM Reporting Lab: [address] [address] Performing Lab: [address] [address] [facility] BASIC METABOLIC PANEL (non-fast ing) GLOMERULAR FILTRATION RATE/1.73 SQ M.PREDICTED [VOLUME RATE/AREA] IN SERUM, PLASMA OR BLOOD BY CREATININE- BASED FORMULA (CKD-EPI 2020) 86 mL/min 60 07/18 Specimen Type: SERUM No comment entered. Ordering Provider: ORACIO MENDOZA Report Released Date/Time: Jul 12, 2023 10:12 AM Reporting Lab: [address] [address] Performing Lab: [address] [address] [facility] THYROID T4 FREE(FT4) THYROXINE (T4) FREE [MASS/VOLUM E] IN SERUM OR PLASMA 1.30 ng/dL 0.6 - 1.6 01/24 Specimen Type: SERUM No comment entered. Ordering Provider: ORACIO MENDOZA Report Released Date/Time: Jan 15, 2023 04:07 PM Reporting Lab: [facility] [place] [facility] [address] [facility] [address] Performing Lab: [facility] [place] [facility] [address] [facility] [address] [facility] [place] [facility] TSH THYROTROPIN [UNITS/VOLU ME] IN SERUM OR PLASMA 0.36 u[IU]/ mL 0.35 - 5.00 01/24 Specimen Type: SERUM No comment entered. Ordering Provider: ORACIO MENDOZA Report Released Date/Time: Jan 15, 2023 04:07 PM Reporting Lab: [facility] [place] [facility] [address] [facility] [address] Performing Lab: [facility] [place] [facility] [address] [facility] [address] [facility] [place] [facility] VITAMIN D (25-OH) 25-HYDROXYV ITAMIN D3 [MASS/VOLUM E] IN SERUM OR PLASMA 46 ng/mL 20 - 50 01/24 Specimen Type: SERUM No comment entered. Ordering Provider: ORACIO MENDOZA Report Released Date/Time: Jan 15, 2023 04:07 PM Reporting Lab: [facility] [place] [facility] [address] [facility] [address] Performing Lab: [facility] [place] [facility] [address] [facility] [address] [facility] [place] [facility] BASIC METABOLIC PANEL (fasting) UREA NITROGEN [MASS/VOLUM E] IN SERUM OR PLASMA 17 mg/dL 7 - 25 01/24 Specimen Type: SERUM No comment entered. Ordering Provider: ORACIO MENDOZA Report Released Date/Time: Jan 15, 2023 04:07 PM Reporting Lab: [facility] [place] [facility] [address] [facility] [address] Performing Lab: [facility] [place] [facility] [address] [facility] [address] [facility] [place] [facility] BASIC METABOLIC PANEL (fasting) GLUCOSE [MASS/VOLUM E] IN SERUM OR PLASMA 94 mg/dL 65 - 100 01/24 Specimen Type: SERUM No comment entered. Ordering Provider: ORACIO MENDOZA Report Released Date/Time: Jan 15, 2023 04:07 PM Reporting Lab: [facility] [address] [facility] [address] Performing Lab: [facility]ITALR[facility]ENTERTRN [facility] [address] [facility] [address] [facility] HOSPITALRNORTHEAST ALAB[facility] CENTERN [facility] BASIC METABOLIC PANEL (fasting) SODIUM [MOLES/VOLU ME] IN SERUM OR PLASMA 141 mmol/L 135 - 145 01/24 Specimen Type: SERUM No comment entered. Ordering Provider: ORACIO MENDOZA Report Released Date/Time: Jan 15, 2023 04:07 PM Reporting Lab: [facility]ITALRCHILTON [facility] CENTERTRN [address] [address] Performing Lab: [facility] [address] [facility] HOSPITALRNORTHEAST AL[facility] CENTERN [facility] [address] [facility] HOSPITALRNORTHEAST [facility] MEDICAL CENTERN [facility] BASIC METABOLIC PANEL (fasting) POTASSIUM [MOLES/VOLU ME] IN SERUM OR PLASMA 3.8 mmol/L 3.5 - 5.0 01/24 Specimen Type: SERUM No comment entered. Ordering Provider: ORACIO MENDOZA Report Released Date/Time: Jan 15, 2023 04:07 PM Reporting Lab: [facility]ITALRNORT[facility] [address] Performing Lab: [facility] HOSPITALRL TRN [facility].USETS [facility] [address] [facility] [address] [facility]OSPITALRNORTHE[facility]ERN [facility]USE [facility] BASIC METABOLIC PANEL (fasting) CHLORIDE [MOLES/VOLU ME] IN SERUM OR PLASMA 107 mmol/L 100 - 110 01/24 Specimen Type: SERUM No comment entered. Ordering Provider: ORACIO MENDOZA Report Released Date/Time: Jan 15, 2023 04:07 PM Reporting Lab: [facility]ITALRCHIL[facility] CENTERTRN [facility] [address] Performing Lab: [facility] HOSPITALRL TRN [facility] [address] [facility] BASIC METABOLIC PANEL (fasting) CARBON DIOXIDE, TOTAL [MOLES/VOLU ME] IN SERUM OR PLASMA 27 meq/L 20 - 30 01/24 Specimen Type: SERUM No comment entered. Ordering Provider: ORACIO MENDOZA Report Released Date/Time: Jan 15, 2023 04:07 PM Reporting Lab: [address] [address] Performing Lab: [address] [address] [facility] BASIC METABOLIC PANEL (fasting) CREATININE [MASS/VOLUM E] IN SERUM OR PLASMA 0.90 mg/dL 0.50 - 1.40 01/24 Specimen Type: SERUM No comment entered. Ordering Provider: ORACIO MENDOZA Report Released Date/Time: Jan 15, 2023 04:07 PM Reporting Lab: [address] [address] Performing Lab: [address] [address] [facility] BASIC METABOLIC PANEL (fasting) GLOMERULAR FILTRATION RATE/1.73 SQ M.PREDICTED [VOLUME RATE/AREA] IN SERUM, PLASMA OR BLOOD BY CREATININE- BASED FORMULA (CKD-EPI 2020) 86 mL/min 60 01/24 Specimen Type: SERUM No comment entered. Ordering Provider: ORACIO MENDOZA Report Released Date/Time: Jan 15, 2023 04:07 PM Reporting Lab: [address] [address] Performing Lab: [address] [address] [facility] CBC LEUKOCYTES [#/VOLUME] IN BLOOD BY AUTOMATED COUNT 6.50 10*3/u L 4.50 - 11.00 01/24 Specimen Type: BLOOD No comment entered. Ordering Provider: ORACIO MENDOZA Report Released Date/Time: Jan 15, 2023 04:07 PM Reporting Lab: [facility] [address] [facility] [address] Performing Lab: [facility] [address] [facility] [address] [facility] CBC ERYTHROCYTE S [#/VOLUME] IN BLOOD BY AUTOMATED COUNT 4.73 10*6/u L 4.23 - 5.66 01/24 Specimen Type: BLOOD No comment entered. Ordering Provider: ORACIO MENDOZA Report Released Date/Time: Jan 15, 2023 04:07 PM Reporting Lab: [facility] [address] [facility] [address] Performing Lab: [facility] [address] [facility] [address] [facility] CBC HEMOGLOBIN [MASS/VOLUM E] IN BLOOD 14.7 g/dL 12.8 - 17 01/24 Specimen Type: BLOOD No comment entered. Ordering Provider: ORACIO MENDOZA Report Released Date/Time: Jan 15, 2023 04:07 PM Reporting Lab: [facility] [address] [facility] [address] Performing Lab: [facility] [address] [facility] [address] [facility] CBC HEMATOCRIT [VOLUME FRACTION] OF BLOOD BY AUTOMATED COUNT 44.2 39.2 - 50.4 01/24 Specimen Type: BLOOD No comment entered. Ordering Provider: ORACIO MENDOZA Report Released Date/Time: Jan 15, 2023 04:07 PM Reporting Lab: [facility] [address] [facility] [address] Performing Lab: [facility] [address] [facility] [address] [facility] CBC MCV [ENTITIC VOLUME] BY AUTOMATED COUNT 93.4 fL 82 - 99 01/24 Specimen Type: BLOOD No comment entered. Ordering Provider: ORACIO MENDOZA Report Released Date/Time: Jan 15, 2023 04:07 PM Reporting Lab: [facility] [address] [facility] [address] Performing Lab: [facility] [address] [facility] [address] [facility] CBC MCHC [MASS/VOLUM E] BY AUTOMATED COUNT 33.3 g/dL 30.8 - 35.1 01/24 Specimen Type: BLOOD No comment entered. Ordering Provider: ORACIO MENDOZA Report Released Date/Time: Jan 15, 2023 04:07 PM Reporting Lab: [facility] [address] [address] Performing Lab: [facility] [address] [address] [facility] CBC PLATELETS [#/VOLUME] IN BLOOD BY AUTOMATED COUNT 194 10*3/u L 140 - 360 01/24 Specimen Type: BLOOD No comment entered. Ordering Provider: ORACIO MENDOZA Report Released Date/Time: Jan 15, 2023 04:07 PM Reporting Lab: [facility] [address] [facility] [address] Performing Lab: [facility] [address] [address] [facility] CBC ERYTHROCYTE DISTRIBUTIO N WIDTH [RATIO] BY AUTOMATED COUNT 13.0 12.0 - 16.0 01/24 Specimen Type: BLOOD No comment entered. Ordering Provider: ORACIO MENDOZA Report Released Date/Time: Jan 15, 2023 04:07 PM Reporting Lab: [facility] [address] [facility] [address] Performing Lab: [facility] [address] [facility] [address] [facility] CBC MCH [ENTITIC MASS] BY AUTOMATED COUNT 31.1 pg 26.2 - 32.6 01/24 Specimen Type: BLOOD No comment entered. Ordering Provider: ORACIO MENDOZA Report Released Date/Time: Jan 15, 2023 04:07 PM Reporting Lab: [facility] [address] [facility] [address] Performing Lab: [facility] [address] [facility] [address] [facility] Vital Signs Combined list of inpatient [...] 20 07/25/2024 15:13:03 [facility] WEIGHT 213.9 07/24/2024 11:00:00 [place] BMI 33 kg/m2 07/24/2024 11:00:00 [place] WEIGHT 214 07/17/2024 11:00:00 [place] BMI 33 kg/m2 07/17/2024 11:00:00 [place] WEIGHT 213.8 07/10/2024 11:26:33 [place] BMI 33 kg/m2 07/10/2024 11:26:33 [place] WEIGHT 214.9 07/03/2024 11:40:05 [place] BMI 33 kg/m2 07/03/2024 11:40:05 [place] Encounters Combined list of: 1) Encounters from [facility] facilities going backup to the last 18 months, not all [place] inpatient encounters are included; 2) Encounters from the Department of Defense facilities going backup to 280 months. Location Location Details Encounter Type Encounter Number Reason For Visit Attending Provider ADM Date DC Date Status Disposition Source [facility] EXERCISE CLASS [id number] Diagnos is: ICD-10- CM Z72.3 Lack of physica l exercis Cecily Lange 02/07 [facility] LD WEIGHT MGMT CLASS [id number] Diagnos is: ICD-10- CM Z68.29 Body mass index [BMI] 29.0-29 .9, adult GORDON PATHAK 02/08 [place] [facility] EXERCISE CLASS [id number] Diagnos is: ICD-10- CM Z72.3 Lack of physica l exercis CRISTAL Meyers 02/09 [facility] EXERCISE CLASS [id number] Diagnos is: ICD-10- CM Z72.3 Lack of physica l exercis CRISTAL Meyers 02/12 [facility] SELF-MGMT EDUC/TR[place] 2-4 [place] [id number] Diagnos is: ICD-10- CM Z71.3 Dietary residential counselor ing and surveil RAKESH Murphy 02/13 [facility] EXERCISE CLASS [id number] Diagnos is: ICD-10- CM Z72.3 Lack of physica l exercis e Cecily ONEILL SHANICE 02/14 [facility] EXERCISE CLASS [id number] Diagnos is: ICD-10- CM Z72.3 Lack of physica l exercis e CRISTAL LAZCANO M 02/19 [facility] EXERCISE CLASS [id number] Diagnos is: ICD-10- CM Z72.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 Cecily ONEILL SHANICE 02/21 [facility] Outpatient Encounter [id number] Diagnos is: ICD-10- CM Z02.89 Encount er for other adminis trative examina tions ZANDER SANCHEZ A 02/22 [facility] [place] WEIGHT MGMT CLASS [id number] Diagnos is: ICD-10- CM Z68.29 Body mass index [BMI] 29.0-29 .9, adult GORDON PATHAK A 02/22 [place] [facility] EXERCISE CLASS [id number] Diagnos is: ICD-10- CM Z72.3 Lack of physica l exercis e LARISA COATES 02/23 [facility] EXERCISE CLASS [id number] Diagnos is: ICD-10- CM Z72.3 Lack of physica l exercis e CRISTAL LAZCANO 02/26 [facility] EXERCISE CLASS [id number] Diagnos is: ICD-10- CM Z72.3 Lack of physica l exercis e LARISA COATES 02/27 [facility] EXERCISE CLASS [id number] Diagnos is: ICD-10- CM Z72.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 Cecily ONEILL 02/28 [facility] WEIGHT MGMT CLASS [id number] Diagnos is: ICD-10- CM Z68.29 Body mass index [BMI] 29.0-29 .9, adult GORDON PATHAK 03/01 [place] [facility] Outpatient Encounter [id number] 03/05 [facility] EXERCISE CLASS [id number] Diagnos is: ICD-10- CM Z72.3 Lack of physica l exercis e CRISTAL LAZCANO 03/05 [facility] Outpatient Encounter [id number] 03/05 [facility] SELF-MGMT EDUC & TRAIN 1 [place] [id number] Diagnos is: ICD-10- CM G47.33 Obstruc tive sleep apnea (adult) (pediat amparo) SHELBIMATTEO AMPARO 03/05 [facility] EXERCISE CLASS [id number] Diagnos is: ICD-10- CM 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.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 ILIANA UNDERWOOD 03/07 [facility] LD GROUP BEHAVE COUNS 2-10 [id number] [id number] Diagnos is: ICD-10- CM E66.09 Other obesity due to excess calorie s EVAN KRAMER CHABOBBY P 03/08 [place] [facility] EXERCISE CLASS [id number] Diagnos is: ICD-10- CM Z72.3 Lack of physica l exercis LARISA Hadley 03/09 [facility] EXERCISE CLASS [id number] Diagnos is: ICD-10- CM Z72.3 Lack of physica l exercis Cecily Lange 03/14 [facility] [place] LD GROUP BEHAVE COUNS 2-10 [id number] [id number] Diagnos is: ICD-10- CM E66.3 Overwei EVAN Estevez JOSH P 03/15 [place] [facility] SLEEP STUDY UNATT&RESP EFFT [id number] [id number] Diagnos is: ICD-10- CM G47.33 Obstruc tive sleep apnea (adult) (pediat amparo) MATTEO MARIO AMPARO 03/16 [facility] EXERCISE CLASS [id number] Diagnos is: ICD-10- CM Z72.3 Lack of physica l exercis Cecily Lange 03/21 [facility] EXERCISE CLASS [id number] Diagnos is: ICD-10- CM Z72.3 Lack of physica l exercis LARISA Hadley 03/23 [facility] PT EDUCATION NOC GROUP [id number] Diagnos is: ICD-10- CM Z71.3 Dietary residential counselor ing and surveil RAKESH Murphy [place]E 03/27 [facility] EXERCISE CLASS [id number] Diagnos is: ICD-10- CM Z72.3 Lack of physica l exercis Cecily LangeIN 03/28 [facility] SLEEP STUDY UNATT&RESP EFFT [id number] Diagnos is: ICD-10- CM G47.33 Obstruc tive sleep apnea (adult) (pediat amparo) VILMA TONEY 03/28 [facility] LD GROUP BEHAVE COUNS 2-10 [id number] [id number] Diagnos is: ICD-10- CM E66.3 Overwei [facility] EVAN KRAMER P 03/29 [place] [facility] EXERCISE CLASS [id number] Diagnos is: ICD-10- CM Z72.3 Lack of physica l exercis Cecily Lange 04/04 [facility] LD GROUP BEHAVE COUNS 2-10 [id number] [id number] Diagnos is: ICD-10- CM E66.09 Other obesity due to excess calorie EVAN Qureshi P 04/05 [place] [facility] BEHAVE COUNS 2-10 [id number] [id number] Diagnos is: ICD-10- CM E66.3 Overwei elizabethEVAN [place] P 04/05 [place] [facility] PT EDUCATION NOC GROUP [id number] Diagnos is: ICD-10- CM Z71.3 Dietary residential counselor ing and surveil RAKESH Murphy [place]E 04/10 [facility] [place] WEIGHT MGMT CLASS [id number] Diagnos is: ICD-10- CM Z68.29 Body mass index [BMI] 29.0-29 .9, adult GORDON PATHAK 04/12 [place] [facility] EXERCISE CLASS [id number] Diagnos is: ICD-10- CM Z72.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 Cecily ONEILL SHANICE 04/18 [facility] [place] WEIGHT MGMT CLASS [id number] Diagnos is: ICD-10- CM Z68.29 Body mass index [BMI] 29.0-29 .9, adult GORDON PATHAK 04/19 [place] [facility] EXERCISE CLASS [id number] Diagnos is: ICD-10- CM 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.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 ILIANA UNDERWOOD 04/20 [facility] EXERCISE CLASS [id number] Diagnos is: ICD-10- CM Z72.3 Lack of physica l exercis Cecily Lange SHANICE 04/25 [facility] [place] WEIGHT MGMT CLASS [id number] [id number] Diagnos is: ICD-10- CM Z68.29 Body mass index [BMI] 29.0-29 .9, adult GORDON PATHAK 04/26 [place] [facility] EXERCISE CLASS [id number] Diagnos is: ICD-10- CM Z72.3 Lack of physica l exercis e CRISTAL LAZCANO 04/27 [facility] EXERCISE CLASS [id number] Diagnos is: ICD-10- CM Z72.3 Lack of physica l exercis e CRISTAL LAZCANO 04/30 [facility] EXERCISE CLASS [id number] Diagnos is: ICD-10- CM Z72.3 Lack of physica l exercis Cecily Lange 05/02 [facility] [place] [place] [facility] WEIGHT MGMT CLASS [id number] Diagnos is: ICD-10- CM Z68.29 Body mass index [BMI] 29.0-29 .9, adult GORDON PATHAK 05/03 [facility] EXERCISE CLASS [id number] Diagnos is: ICD-10- CM Z72.3 Lack of physica l exercis LARISA Hadley 05/04 [facility] EXERCISE CLASS [id number] Diagnos is: ICD-10- CM Z72.3 Lack of physica l exercis e CRISTAL LAZCANO M 05/07 [facility] EXERCISE CLASS [id number] Diagnos is: ICD-10- CM Z72.3 Lack of physica l exercis Cecily Lange 05/09 [facility] GROUP BEHAVE COUNS 2-10 [id number] [id number] Diagnos is: ICD-10- CM E66.09 Other obesity due to excess calorie s EVAN KRAMER 05/10 [place] [facility] EXERCISE CLASS [id number] Diagnos is: ICD-10- CM Z72.3 Lack of physica l exercis CRISTAL Meyers M 05/11 [facility] PT EDUCATION NOC GROUP [id number] Diagnos is: ICD-10- CM Z71.3 Dietary residential counselor ing and surveil RAKESH Murphy LIE [place] 05/15 [facility] EXERCISE CLASS [id number] Diagnos is: ICD-10- CM Z72.3 Lack of physica l exercis e Cecily ONEILL 05/16 [facility] [place] WEIGHT MGMT CLASS [id number] [id number] Diagnos is: ICD-10- CM Z68.29 Body mass index [BMI] 29.0-29 .9, adult GORDON PATHAK 05/17 [place] [facility] EXERCISE CLASS [id number] Diagnos is: ICD-10- CM Z72.3 Lack of physica l exercis e CRISTAL LAZCANO 05/21 [facility] [place] LD GROUP BEHAVE COUNS 2-10 [id number] [id number] Diagnos is: ICD-10- CM E66.09 Other obesity due to excess calorie EVAN Quershi P [place] [facility] PT EDUCATION NOC GROUP [id number] [id number] Diagnos is: ICD-10- CM Z71.3 Dietary residential counselor ing and surveil RAKESH Murphy LIE CHENTE 05/28 [facility] [place] LD GROUP BEHAVE COUNS 2-10 [id number] [id number] Diagnos is: ICD-10- CM E66.09 Other obesity due to excess calorie EVAN Qureshi P 05/30 [place] [facility] BEHAVE COUNS 2-10 [id number] [id number] Diagnos is: ICD-10- CM E66.09 Other obesity due to excess calorie s NIAEVAN MORENO P 06/06 [facility] [place] [facility] [place] [facility] PT EDUCATION NOC GROUP [id number] Diagnos is: ICD-10- CM Z71.3 Dietary residential counselor ing and surveil RAKESH Murphy LIE CHENTE 06/11 [place] [facility] [place] [facility] [place] WEIGHT MGMT CLASS [id number] [id number] Diagnos is: ICD-10- CM E66.3 Overwei GORDON Mary Hellen 06/13 [place] WEIGHT MGMT CLASS [id number] [id number] Diagnos is: ICD-10- CM Z68.29 Body mass index [BMI] 29.0-29 .9, adult GORDON PATHAK Hellen 06/20 [facility] [place] [facility] [place] [facility] PT EDUCATION NOC GROUP [id number] [id number] Diagnos is: ICD-10- CM Z71.3 Dietary residential counselor ing and surveil RAKESH Murphy [place] 06/25 [place] [facility] [place] [facility] [place] WEIGHT MGMT CLASS [id number] [id number] Diagnos is: ICD-10- CM Z68.29 Body mass index [BMI] 29.0-29 .9, adult GORDON PATHAK Hellen 06/27 [facility] [place] LD GROUP BEHAVE COUNS 2-10 [id number] [id number] Diagnos is: ICD-10- CM E66.3 Overwei naseem KRAMEREVAN MORENO P 07/04 [facility] [place] WEIGHT MGMT CLASS [id number] [id number] Diagnos is: ICD-10- CM Z68.29 Body mass index [BMI] 29.0-29 .9, adult GORDON PATHAK Hellen 07/18 [facility] [place] [facility] [facility] [facility] OFFICE O/P EST MOD 30 MIN [id number] [id number] Diagnos is: ICD-10- CM K21.9 Gastro- esophag eal reflux disease without esophag Guzman Vigil 07/22 [place] [facility] [place] [facility] Outpatient Encounter [id number] 07/23 [place] [facility] [place] [place] [facility] LD GROUP BEHAVE COUNS 2-10 [id number] [id number] Diagnos is: ICD-10- CM E66.3 Overwei elizabetht EVAN KRAMER P 07/25 [facility] PT EDUCATION NOC GROUP [id number] Diagnos is: ICD-10- CM Z71.3 Dietary residential counselor ing and surveil RAKESH Murphy 07/30 [place] [facility] [place] [facility] LD GROUP BEHAVE COUNS 2-10 [id number] [id number] Diagnos is: ICD-10- CM E66.3 Overwei EVAN Estevez P 08/01 [facility] BEHAVE COUNS 2-10 [id number] [id number] Diagnos is: ICD-10- CM E66.3 Overwei EVAN Estevez P 08/08 [place] [facility] EXERCISE CLASS [id number] Diagnos is: ICD-10- CM Z72.3 Lack of physica l exercis Cecily Lange 08/21 [place] [facility] [place] [facility] WEIGHT MGMT CLASS [id number] [id number] Diagnos is: ICD-10- CM Z68.29 Body mass index [BMI] 29.0-29 .9, adult GORDON PATHAK 08/22 [place] [facility] EXERCISE CLASS [id number] Diagnos is: ICD-10- CM Z72.3 Lack of physica l exercis e LARISA COATES 08/23 [facility] EXERCISE CLASS [id number] [id number] Diagnos is: ICD-10- CM 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.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 Cecily ONEILL SHANICE 08/26 [place] [facility] [place] [facility] [place] WEIGHT MGMT CLASS [id number] [id number] Diagnos is: ICD-10- CM Z68.29 Body mass index [BMI] 29.0-29 .9, adult GORDON PATHAK 08/29 [place] [facility] EXERCISE CLASS [id number] [id number] Diagnos is: ICD-10- CM Z72.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 CRISTAL LAZCANO M 08/30 [place] [facility] [place] [place] [facility] EXERCISE CLASS [id number] [id number] Diagnos is: ICD-10- CM Z72.3 Lack of physica l exercis Cecily Lange SHANICE 09/04 [place] [facility] [place] [place] [facility] [place] WEIGHT MGMT CLASS [id number] [id number] Diagnos is: ICD-10- CM E66.09 Other obesity due to excess calorie s GORDON PATHAK Hellen 09/05 [place] [facility] EXERCISE CLASS [id number] Diagnos is: ICD-10- CM Z72.3 Lack of physica l exercis e CRISTAL LAZCANO M 09/06 [place] [facility] [place] [facility] LD GROUP BEHAVE COUNS 2-10 [id number] [id number] Diagnos is: ICD-10- CM E66.09 Other obesity due to excess calorie s EVAN KRAMER P 09/12 [place] [facility] EX[facility] CLASS 15070-6.63 [id number] Diagnos is: ICD-10- CM Z72.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 LARISA COATES 09/13 [facility] [place] WEIGHT MGMT CLASS 72017-8.63 [id number] Diagnos is: ICD-10- CM Z68.30 Body mass index [BMI] 30.0-30 .9, adult GORDON PATHAK 09/19 [place] [facility] EX[facility] CLASS 81107-9.63 [id number] Diagnos is: ICD-10- CM Z72.3 Lack of physica l exercis LARISA Hadley 09/20 [facility] EXERCISE CLASS [id number] [id number] Diagnos is: ICD-10- CM Z72.3 Lack of physica l exercis CRISTAL Meyers 09/23 [facility] COMPRE OPH EXAM EST PT 1/ 79692-6.63 [id number] Diagnos is: ICD-10- CM L71.8 Other rosacea MARLEN,MI OSMAN 09/24 [facility] FIT SPECTACLES MONOFOCAL 78060-1.63 [id number] Diagnos is: ICD-10- CM Z46.0 Encount er for fit/adj st of spectac les and contact lenses EVAN GEE OSMAN 09/24 [facility] EXERCISE CLASS 10869-3.63 [id number] Diagnos is: ICD-10- CM Z72.3 Lack of physica l exercis e Cecily ONEILL 09/25 [facility] EXERCISE CLASS 66924-6.63 [id number] Diagnos is: ICD-10- CM 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.3 Lack of physica l exercis e CRISTAL LAZCANO M 09/30 [facility] LD GROUP BEHAVE COUNS 2-10 02657-6.63 [id number] Diagnos is: ICD-10- CM E66.09 Other obesity due to excess calorie EVAN Qureshi P 10/03 [place] MGMT CLASS 77494-5.63 [id number] Diagnos is: ICD-10- CM Z68.29 Body mass index [BMI] 29.0-29 .9, adult GORDON PATHAK 10/10 [place] [facility] EXERCISE CLASS [id number] [id number] Diagnos is: ICD-10- CM 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.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 CRISTAL LAZCANO M 10/14 [facility] EXERCISE CLASS [id number] [id number] Diagnos is: ICD-10- CM Z72.3 Lack of physica l exercis Cecily LangeIN 10/16 [facility] LD GROUP BEHAVE COUNS 2-10 63755-8.63 [id number] Diagnos is: ICD-10- CM E66.09 Other obesity due to excess calorie EVAN Qureshi P 10/17 [place] [facility] EXERCISE CLASS 78620-5.63 [id number] Diagnos is: ICD-10- CM Z72.3 Lack of physica l exercis e CRISTAL LAZCANO M 10/18 [facility] EX[facility] CLASS 60271-4.63 1. Diagnos is: ICD-10- CM Z72.3 Lack of physica l exercis e CRISTAL LAZCANO 10/21 [facility] Outpatient Encounter [id number] Guzman MENDOZA 10/22 [facility] POS AIRWAY PRESSURE FILTER [id number] [id number] Diagnos is: ICD-10- CM G47.30 Sleep apnea, unspeci fied ST AMDAVID,KATHARINA E P 10/22 [facility] [facility] EXERCISE CLASS [id number] Diagnos is: ICD-10- CM Z72.3 Lack of physica l exercis e Cecily ONEILL 10/23 [facility] [place] [facility] BHV IVNTJ GRP EA ADDL [id number] Diagnos is: ICD-10- CM Z68.30 Body mass index [BMI] 30.0-30 .9, adult GORDON PATHAK 10/24 [place] [facility] UNLISTED PHYSCL MED/[place] [id number] [id number] Diagnos is: ICD-10- CM Z72.3 Lack of physica l exercis LARISA Hadley 10/25 [facility] EXERCISE CLASS [id number] 1. 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.3 Lack of physica l exercis e CRISTAL LAZCANO M 10/28 [facility] COLLJ & INTERPJ DATA EA 30 D [id number] Diagnos is: ICD-10- CM G47.30 Sleep apnea, unspeci fied ST AMANT,KATHARINA E P 10/29 [facility] EXERCISE CLASS [id number] Diagnos is: ICD-10- CM Z72.3 Lack of physica l exercis e Cecily ONEILL 10/30 [facility] [place] [facility] BHV IVNTJ GRP EA ADDL [id number] [id number] Diagnos is: ICD-10- CM Z68.30 Body mass index [BMI] 30.0-30 .9, adult GORDON PATHAK 10/31 [place] [facility] EXERCISE CLASS [id number] Diagnos is: ICD-10- CM 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 CRISTAL LAZCANO M 11/01 [facility] EXERCISE CLASS [id number] Diagnos is: ICD-10- CM Z72.3 Lack of physica l exercis e CRISTAL LAZCANO 11/04 [facility] EXERCISE CLASS [id number] Diagnos is: ICD-10- CM Z72.3 Lack of physica l exercis Cecily Lange SHANICE 11/06 [facility] LD GROUP BEHAVE COUNS 2-10 [id number] [id number] Diagnos is: ICD-10- CM E66.09 Other obesity due to excess calorie s EVAN KRAMER P 11/07 [place] [facility] EXERCISE CLASS [id number] 1. Diagnos is: ICD-10- CM Z72.3 Lack of physica l exercis e Cecily ONEILL SHANICE 11/13 [facility] HLTH BHV IVNTJ GRP EA ADDL [id number] Diagnos is: ICD-10- CM Z68.30 Body mass index [BMI] 30.0-30 .9, adult GORDON PATHAK 11/14 [place] [facility] EXERCISE CLASS [id number] Diagnos is: ICD-10- CM Z72.3 Lack of physica l exercis e Cecily ONEILL SHANICE 11/15 [facility] EXERCISE CLASS [id number] Diagnos is: ICD-10- CM Z72.3 Lack of physica l exercis e CRISTAL LAZCANO 11/18 [facility] EXERCISE CLASS [id number] 1. Diagnos is: ICD-10- CM Z72.3 Lack of physica l exercis Cecily Lange SHANICE 11/20 [facility] LD GROUP BEHAVE COUNS 2-10 [id number] [id number] Diagnos is: ICD-10- CM E66.09 Other obesity due to excess calorie EVAN Qureshi P 11/21 [facility] IE [facility] EXERCISE CLASS [id number] [id number] Diagnos is: ICD-10- CM Z72.3 Lack of physica l exercis Cecily Lange 11/27 [facility] [facility] HLTH BHV IVNTJ GRP EA ADDL [id number] [id number] Diagnos is: ICD-10- CM Z68.30 Body mass index [BMI] 30.0-30 .9, adult GORDON PATHAK 11/28 [facility] [place]ELD [place] [facility] EXERCISE CLASS [id number] 1. Diagnos is: ICD-10- CM Z72.3 Lack of physica l exercis LARISA Hadley 11/29 [facility] EXERCISE CLASS [id number] 1. Diagnos is: ICD-10- CM Z72.3 Lack of physica l exercis CRISTAL Meyers 12/02 [facility] COLLJ & INTERPJ DATA EA 30 D [id number] [id number] Diagnos is: ICD-10- CM G47.30 Sleep apnea, unspeci fied ST AMDAVID,KATHARINA E P 12/02 [facility]ELD [facility] EXERCISE CLASS [id number] 1. Diagnos is: ICD-10- CM Z72.3 Lack of physica l exercis CRISTAL Meyers M 12/04 [facility] GROUP BEHAVE COUNS 2-10 [id number] [id number] Diagnos is: ICD-10- CM E66.09 Other obesity due to excess calorie EVAN Qureshi JOSH P 12/05 [place] [facility] PT EDUCATION NOC GROUP [id number] [id number] Diagnos is: ICD-10- CM Z71.3 Dietary residential counselor ing and surveil RAKESH Murphy 12/10 [facility] BHV IVNTJ GRP EA ADDL [id number] Diagnos is: ICD-10- CM Z73.3 Stress, not elsewhe re classif ied JOSE ALBERTO HANLEY RA 12/10 [facility] [place] [facility] [place] [facility]TH V IVNTJ GRP EA ADDL [id number] [id number] Diagnos is: ICD-10- CM Z68.30 Body mass index [BMI] 30.0-30 .9, adult GORDON PATHAK 12/12 [place] [facility] [place] EXERCISE CLASS [id number] [id number] Diagnos is: ICD-10- CM Z72.3 Lack of physica l exercis CRISTAL Meyers 12/16 [facility] [facility] [place] TH V IVNTJ GRP EA ADDL [id number] [id number] Diagnos is: ICD-10- CM Z68.30 Body mass index [BMI] 30.0-30 .9, adult GORDON PATHAK 12/19 [place] [facility] PT EDUCATION NOC GROUP [id number] [id number] Diagnos is: ICD-10- CM Z71.3 Dietary residential counselor ing and surveil RAKESH Murphy 12/24 [facility] [place] [facility] [place] [facility] GROUP BEHAVE COUNS 2-10 [id number] [id number] Diagnos is: ICD-10- CM E66.09 Other obesity due to excess calorie s EVAN KRAMER 12/26 [place] BHV IVNTJ GRP EA ADDL [id number] [id number] Diagnos is: ICD-10- CM Z68.30 Body mass index [BMI] 30.0-30 .9, adult GORDON PATHAK 01/02 [place] [facility] [place] [facility] PT EDUCATION NOC GROUP 63561-3.63 1. Diagnos is: ICD-10- CM Z71.3 Dietary residential counselor ing and surveil RAKESH Murphy 01/07 [place] [facility] [place] [facility] GROUP BEHAVE COUNS 2-10 74110-6.63 1BY. 38 Diagnos is: ICD-10- CM E66.09 Other obesity due to excess calorie EVAN Qureshi 01/09 [facility] IELD [facility] IVNTJ GRP EA ADDL [id number] [id number] Diagnos is: ICD-10- CM Z68.30 Body mass index [BMI] 30.0-30 .9, adult GORDON PATHAK 01/16 [place] [facility] [place] [facility] OFFICE O/P EST MOD 30 MIN [id number] [id number] Diagnos is: ICD-10- CM G47.30 Sleep apnea, unspeci Guzman Vásquez 01/20 [facility] OFFICE O/P EST MOD 30 MIN [id number] [id number] Diagnos is: ICD-10- CM G47.33 Obstruc tive sleep apnea (adult) (pediat amparo) ARELIS NUNO 01/21 [facility] Outpatient Encounter [id number] Diagnos is: ICD-10- CM G47.33 Obstruc tive sleep apnea (adult) (pediat amparo) ARELIS NUNO 01/21 [facility] [place] [facility] GROUP BEHAVE COUNS 2-10 04459-0.63 1BY. 47 Diagnos is: ICD-10- CM E66.811 Obesity , class 1 NIAEVAN CH P 01/23 [facility] IELD [place] GROUP BEHAVE COUNS 2-10 50024-3.63 [id number] Diagnos is: ICD-10- CM E66.811 Obesity , class 1 NIAEVAN CH P 01/30 [facility]ELD [place] [facility] EA ADDL [id number] [id number] Diagnos is: ICD-10- CM Z68.30 Body mass index [BMI] 30.0-30 .9, adult GORDON PATHAK 02/06 [facility] [place]ELD [place] BHV IVNTJ GRP EA ADDL [id number] [id number] Diagnos is: ICD-10- CM Z68.30 Body mass index [BMI] 30.0-30 .9, adult GORDON PATHAK 02/13 [facility] IELD [facility] OFFICE O/P EST MOD 30 MIN [id number] [id number] Diagnos is: ICD-10- CM G47.33 Obstruc tive sleep apnea (adult) (pediat amparo) ARELIS NUNO 02/25 [facility] Outpatient Encounter [id number] Diagnos is: ICD-10- CM G47.33 Obstruc tive sleep apnea (adult) (pediat amparo) ARELIS NUNO 02/25 [place] [facility] [place] V IVNTJ GRP EA ADDL [id number] [id number] Diagnos is: ICD-10- CM Z68.30 Body mass index [BMI] 30.0-30 .9, adult GORDON PATHAK 02/27 [facility] [place]ELD [place] GROUP BEHAVE COUNS 2-10 89930-9.63 [id number] Diagnos is: ICD-10- CM E66.811 Obesity , class 1 NIAEVAN CH P 03/06 [place] GROUP BEHAVE COUNS 2-10 49993-5.63 [id number] Diagnos is: ICD-10- CM E66.811 Obesity , class 1 NIAEVAN P 03/13 [place] [facility] BHV IVNTJ GRP EA ADDL 71287-7.63 [id number].[id number] Diagnos is: ICD-10- CM Z68.30 Body mass index [BMI] 30.0-30 .9, adult GORDON PATHAK 04/03 [place] [facility] BHV IVNTJ GRP EA ADDL [id number] [id number] Diagnos is: ICD-10- CM Z68.30 Body mass index [BMI] 30.0-30 .9, GORDON Guzman 04/10 [place] [facility] BHV IVNTJ GRP EA ADDL [id number] [id number] Diagnos is: ICD-10- CM Z68.30 Body mass index [BMI] 30.0-30 .9, GORDON Guzman 04/24 [place] [facility] PT EDUCATION NOC GROUP [id number] [id number] Diagnos is: ICD-10- CM Z71.3 Dietary residential counselor ing and surveil RAKESH Murphy CHENTE 04/29 [facility] [place] GROUP BEHAVE COUNS 2-10 [id number] [id number] Diagnos is: ICD-10- CM E66.811 Obesity , class 1 NIAEVAN CH P 05/01 [place] [facility] PT EDUCATION NOC GROUP [id number] [id number] Diagnos is: ICD-10- CM Z71.3 Dietary residential counselor ing and surveil RAKESH Murphy LIE [place] 06/24 [facility] LD HLTH BHV IVNTJ GRP EA ADDL [id number] [id number] Diagnos is: ICD-10- CM E66.811 Obesity , class 1 GORDON PATHAK 06/26 [place] [facility] BEHAVE COUNS 2-10 [id number] [id number] Diagnos is: ICD-10- CM E66.811 Obesity , class 1 EVAN KRAMER P 07/03 [place] [facility] Outpatient Encounter [id number] [id number] 07/03 [facility] EXERCISE CLASS [id number] [id number] Diagnos is: ICD-10- CM Z72.3 Lack of physica l exercis e CRISTAL LAZCANO 07/07 [facility] EXERCISE CLASS [id number] [id number] Diagnos is: ICD-10- CM Z72.3 Lack of physica l exercis e Cecily ONEILL 07/09 [facility] [place] [facility] LD GROUP BEHAVE COUNS 2-10 37643-2.63 1BY. 78 Diagnos is: ICD-10- CM E66.811 Obesity , class 1 EVAN KRAMER P 07/10 [place] [facility] Outpatient Encounter [id number] [id number]/10 [facility] [place] [facility] LD GROUP BEHAVE COUNS 2-10 47979-1.63 1BY. 92 Diagnos is: ICD-10- CM E66.811 Obesity , class 1 EVAN KRAMER P 07/17 [place] [facility] Outpatient Encounter [id number] 07/21 [facility] Outpatient Encounter [id number] [id number] 07/22 [place] [facility] [place] [facility] LD HLTH BHV IVNTJ GRP EA ADDL [id number] [id number] Diagnos is: ICD-10- CM Z68.30 Body mass index [BMI] 30.0-30 .9, adult GORDON PATHAK 07/24 [facility] OFFICE O/P EST MOD 30 MIN [id number]. [id number] Diagnos is: ICD-10- CM R55 Syncope and collaps e Guzman MENDOZA J 07/25 [place] [facility] [place] [facility] LD GROUP BEHAVE COUNS 2-10 66317-1. 1BY. 39 Diagnos is: ICD-10- CM E66.811 Obesity , class 1 EVAN KRAMER P 07/31 [facility] IE Social History Combined list of available smoking, tobacco, and other social history from Department of Defense and Veterans Affairs facilities. Social History Type Response Date Comment Sour e Tobacco smoking status NHIS VA-TOBACCO FORMER USER 01/21/2024 [facility] History of tobacco use VA-TOBACCO QUIT 15 YRS OR MORE 01/21/2024 [facility] History of tobacco use VA-TOBACCO FORMER USER 01/26/2023 [facility] History of tobacco use VA-TOBACCO FORMER USER 01/27/2022 [facility] History of tobacco use VA-TOBACCO QUIT 15 YRS OR MORE 09/17/2020 [facility] History of tobacco use VA-TOBACCO NEVER USED 06/04/2019 [facility] History of tobacco use VA-TOBACCO FORMER USER 03/14/2018 [facility] History of tobacco use QUIT TOBACCO USE > 7 YEARS AGO 04/04/2017 [facility] History of tobacco use QUIT TOBACCO USE > 7 YEARS AGO 04/05/2016 quit in 1985 [facility] Plan of Care List of future care activities from Department of [facility] Affairs facilities. Additional future care activities may be listed in the Assessment and Plan section. Date/Time Care Activity Care Activity Detail Facili ty 10/07/2024 AMBULATORY - MEDICINE AMBULATORY - MEDICI [facility]
--- OUTSIDE RECORDS SUMMARY | 2024-08-06 08:54 | XMS_ITS | Encounter Summary ---
Author Name [facility] [place] [place] Address [address] [place] [address] Care Team Providers Care Shellfish Grower Name Role Phone LUCAS SRTATTON Primary Care Provider Unavaila ble Insurance Providers: [...] PART B Sep 23, 2014 PART B [id number] HARMONY MCCALL JR PATIENT MEDICARE (WNR) MEDICARE (M) PART A July 25, 2007 PART A [id number] HARMONY MCCALL JR PATIENT MEDICARE (WNR) MEDICARE (M) PART B July 25, 2007 PART B [id number] HARMONY MCCALL JR PATIENT MEDICARE (WNR) MEDICARE (M) PART A July 25, 2007 PART A [id number] HARMONY MCCALL JR PATIENT [employer] (OPT/PROF ) [facility] * Jan 24, 2015 [id number] CAROLE MCCALL SPOUSE Selected Encounter This section includes the information on record at [place] for the Encounter. Date/Time Encounter Type Encounter Description Reason Provider Source July 25, 2024 03:30 PM OFFICE O/P EST MOD 30 MIN PRIMARY CARE/MEDICINE ICD-10-CM R55 Syncope and collapse ELIAN STRATTON AM [facility] Encounter Template Text not used by [place] Assessments - Encounter Diagnoses This section includes the primary and secondary diagnoses documented for the Encounter. Date/Time Primary/Secondary Diagnosis Diagnosis Name Provider Source July 31, 2024 10:01 AM PRIMARY Syncope and collapse ELIAN STRATTON AM [facility] Plan of Treatment: Future Appointments (+ 6 months) and Future Tests (+/- 45 days) The Plan of Treatment section includes future care activities for the patient [facility] [place] [facility] This section includes future appointments and [...] 31, 2024 11:00 AM AMBULATORY - NONE [facility] Oct 07, 2024 10:00 AM AMBULATORY - MEDICINE [facility] Active, Pending, and Scheduled Orders [...] - Chemi stry Order CBC BLOOD (LAV-BLOOD) [facility] Jul 10, 2024 12:00 AM Laboratory - Chemi stry Order BASIC METABOLIC PANEL (non-fasting) BLOOD (SST-SERUM) [facility] Jul 10, 2024 12:00 AM Laboratory - Chemi stry Order VITAMIN B12 BLOOD ([facility]SERUM) [facility] Jul 10, 2024 12:00 AM Laboratory - Chemi stry Order LIPID PANEL, NON FASTING BLOOD (SST-SERUM) [facility] Jul 10, 2024 12:00 AM Laboratory - Chemi stry Order LIVER FUNCTION BLOOD (SST-SERUM) [facility] Jul 10, 2024 12:00 AM Laboratory - Chemi stry Order IRON & TIBC PANEL BLOOD (SST-SERUM) [facility] Jul 10, 2024 12:00 AM Laboratory - Chemi stry Order TSH BLOOD (SST-SERUM) [facility] Jul 10, 2024 12:00 AM Laboratory - Chemi stry Order FERRITIN BLOOD (SST-SERUM) [facility] Vital Signs: All taken on the encounter date This section contains inpatient and outpatient Vital Signs collected on the date of the Encounter. Date/Time Temperature Pulse Blood Pressure Respiratory Rate SP02 Pain Height Weight Body Mass Index Source July 25, 2024 03:13 PM 98.3 72 124/80 20 99 2 68 222 34 [facility] Social History: Smoking Status (Most current) [...] 21, 2024 11:00 AM VA-TOBACCO FORMER USER [facility] Tobacco Use History This section includes a history of the smoking, or tobacco-related health factors, that were collected on or before the date of the Encounter. The data comes from the [place] facility where the Encounter took place. Date/Time Smoking Status/Tobacco Use Comment F acility Jan 21, 2024 11:00 AM [facility] Jan 26, 2023 01:30 PM [facility] Jan 26, 2023 01:30 PM VA-TOBACCO QUIT 15 YRS OR MORE [place] [facility] [place] [facility] Jan 27, 2022 11:00 AM VA-TOBACCO FORMER USER [place] [facility] [place] [facility] Jan 27, 2022 11:00 AM VA-TOBACCO QUIT 15 YRS [place] MORE [place] [facility] [facility] Sep 17, 2020 09:00 AM VA-TOBACCO FORMER USER [place] [facility] [facility] Sep 17, 2020 09:00 AM VA-TOBACCO QUIT 15 YRS OR MORE [place] [facility] [facility] Jun 04, 2019 02:57 PM VA-TOBACCO NEVER USED [place] [facility] [facility] Mar 14, 2018 11:23 AM VA-TOBACCO FORMER US[place] [facility] [facility] Mar 14, 2018 11:23 AM VA-TOBACCO QUIT 15 YRS OR MORE [place] [facility] [facility] Apr 04, 2017 12:30 PM QUIT TOBACCO USE > 7 YEARS AGO [place] [facility] [facility] Apr 05, 2016 01:02 PM QUIT TOBACCO USE > 7 YEARS AGO [place] in 1984 [place] [facility] [facility] Encounter Notes: All associated encounter notes [...] 83 year old . HPI: Pleasant male [place] here with his daughter s/p hospitalization for syncope vs. seizures. He is now following with neurology, Dr. Bernard in [place] and cardiology, Marsha Dominguez NP in [place]. He was having previous issues with dizziness [...] 15:13)BMI: 33.8222 lb [100.70 kg] (07/25/2024 15:13) is alert and oriented X3 Eyes:No scleral [...] treatment planning, education and counseling of the patient/family/childcare center director, placing orders, communicating with other health care [...] or non-VA provider. /johanny/ Lucas Stratton DNP, IN HOME BABY SITTER-BC, CNL Primary Care Nurse Practitioner Signed: 07/31/2024 09:59 REJILUCAS Ghassan [place] [facility] [place] [facility] July 25, 2024 03:19 PM PREVENTIVE MEDICINE [...] of his/her rights. Suicide Screen: C-SSRS Screening [place]-Suicide Severity Rating Scale (C-SSRS Screener) 1. Over [...] more. Never true Homelessness/Food Insecurity Screen: The [place] reports the following: Within the past 12 months, you worried whether your food would run out before you got money to buy more. Never true Within the past 12 months, the food you bought just didn't last and you didn't have money to get more. Never true /es/ Arron Augustin, Health Director Mobile WINDER OPERATOR,PRIMARY CARE Signed: 07/25/2024 15:20 ARRON AUGUSTIN [facility]
--- OUTSIDE RECORDS SUMMARY | 2024-08-06 08:55 | XMS_ITS | Encounter Summary ---
Author Name [facility] [place] Address [address] [place] [id number] Care Team Providers Care Well Service Pump Equipment Operator Name Role Phone LEN MENDOZA Primary [...] PART B Sep 23, 2014 PART B [id number] HARMONY MCCALL JR PATIENT MEDICARE (WNR) MEDICARE (M) PART A July 25, 2007 PART A [id number] HARMONY MCCALL JR PATIENT MEDICARE (WNR) MEDICARE (M) PART B July 25, 2007 PART B [id number] [phone] HARMONY MCCALL JR PATIENT MEDICARE (WNR) MEDICARE (M) PART A July 25, 2007 PART A [id number] HARMONY MCCALL JR PATIENT [employer] (OPT/PROF ) [facility] * Jan 24, 2015 [id number] CAROLE MCCALL SPOUSE Selected Encounter This section includes the information on record at [place] for the Encounter. Date/Time Encounter Type Encounter Description Reason Provider Source July 24, 2024 11:00 AM [facility] IVNTJ GRP EA ADDL WEIGHT MGMT & MOVE! PROG - GRP ICD-10-CM Z68.30 Body mass index [BMI] 30.0-30.9, adult GORDON PATHAK [facility] Encounter Template Text not used by [place] Assessments - Encounter Diagnoses This section includes the primary and secondary diagnoses documented for the Encounter. Date/Time Primary/Secondary Diagnosis Diagnosis Name Provider Source July 24, 2024 07:15 PM PRIMARY Body mass index [BMI] 30.0-30.9, adult GORDON PATHAK [place] July 24, 2024 07:15 PM SECONDARY Obesity, class 1 GORDON PATHAK Plan of Treatment: Future Appointments (+ 6 months) and Future Tests (+/- 45 days) The Plan of Treatment section includes future care activities for the patient from all [place] [facility]. This section includes future appointments and future [...] 25, 2024 03:30 PM AMBULATORY - MEDICINE [facility] July 31, 2024 11:00 AM AMBULATORY - NONE [facility] Oct 07, 2024 10:00 AM AMBULATORY - MEDICINE [facility] Active, Pending, and Scheduled Orders This section includes a listing of several types of active, pending, and scheduled orders, including clinic medications orders, diagnostic test orders, procedure orders and consult orders; where thestart date of the order is 45 days before the date of the Encounter or 45 days after the date of the Encounter. The data comes from all [facility]. Test Date/Time Test Type Test Details Facility Name Jul 10, 2024 12:00 AM Laboratory - Chemi stry Order VITAMIN B12 BLOOD (SST-SERUM) [facility] Jul 10, 2024 12:00 AM Laboratory - Chemi stry Order CBC BLOOD (LAV-BLOOD) [facility] Jul 10, 2024 12:00 AM Laboratory - Chemi stry Order BASIC METABOLIC PANEL (non-fasting) BLOOD (SST-SERUM) [facility] Jul 10, 2024 12:00 AM Laboratory - Chemi stry Order LIPID PANEL, NON FASTING BLOOD (SST-SERUM) [facility] Jul 10, 2024 12:00 AM Laboratory - Chemi stry Order IRON & TIBC PANEL BLOOD (SST-SERUM) [facility] Jul 10, 2024 12:00 AM Laboratory - Chemi stry Order LIVER FUNCTION BLOOD (SST-SERUM) [facility] Jul 10, 2024 12:00 AM Laboratory - Chemi stry Order TSH BLOOD (SST-SERUM) [facility] Jul 10, 2024 12:00 AM Laboratory - Chemi stry Order FERRITIN BLOOD (SST-SERUM) [facility] Vital Signs: All taken on [...] via VVC on July 24, 2024. The was provided with information [...] [ ] Address Veterans attended the [facility] MOVE! group session on this date. [...] Group after merging the groups from the [place] and [facility]. Additionally, some Veterans joined the support [...] plans for the coming week. The next [facility] MOVE! group meeting will be held on July @ 11:00am. 's reported weight was 213.9 lbs. and lost 0.1 pounds since last group attended. Dx: Obesity Class 1 BMI 30.0-30.9 The session lasted for 1 hour in duration. /johanny/ GORDON PATHAK, Ph.D. CLINICAL PSYCHOLOGIST Signed: 07/24/2024 19:36 Receipt Acknowledged By: 07/30/2024 09:19 /johanny/ RAMIRO NICKERSON RD, LDN Staff Dietitian 07/28/2024 08:59 /johanny/ SANTIAGO KRAMER STAFF DIETITIAN GORDON PATHAK
--- OUTSIDE RECORDS SUMMARY | 2024-08-06 08:55 | XMS_ITS | Encounter Summary ---
Author Name [facility] [place] Address [address] [place] [address] Care Team Providers Care Head Sulfide Operator Name Role Phone LEN MENDOZA Primary [...] PART B Sep 23, 2014 PART B [id number] HARMONY MCCALL JR PATIENT MEDICARE (WNR) MEDICARE (M) PART A July 25, 2007 PART A [id number] HARMONY MCCALL JR PATIENT MEDICARE (WNR) MEDICARE (M) PART B July 25, 2007 PART B [id number] [phone] HARMONY MCCALL JR PATIENT MEDICARE (WNR) MEDICARE (M) PART A July 25, 2007 PART A [id number] HARMONY MCCALL JR PATIENT [employer]PENSE (OPT/PROF ) [facility] * Jan 24, 2015 [id number] [phone] CAROLE MCCALL SPOUSE Selected Encounter This section includes the information on record at [place] for the Encounter. Date/Time Encounter Type Encounter Description Reason Provider Source July 31, 2024 11:00 AM GROUP BEHAVE COUNS 2-10 WEIGHT MGMT & MOVE! PROG - GRP ICD-10-CM E66.811 Obesity, class 1 SANTIAGO KRAMER Erin Encounter Template Text not used by [place] Assessments - Encounter Diagnoses This section includes the primary and secondary diagnoses documented for the Encounter. Date/Time Primary/Secondary Diagnosis Diagnosis Name Provider Source August 01, 2024 08:22 AM PRIMARY Obesity, class 1 SANTIAGO KRAMER [place] Plan of Treatment: Future Appointments (+ 6 months) and Future Tests (+/- 45 days) The Plan of Treatment section includes future care activities for the patient from all [place] [facility]. This section includes future appointments and [...] 07, 2024 10:00 AM AMBULATORY - MEDICINE [facility] Active, Pending, and Scheduled Orders This section includes a listing of several types of active, pending, and scheduled orders, including clinic medications orders, diagnostic test orders, procedure orders and consult orders; where the start date of the order is 45 days before the date of the Encounter or 45 days after the date of theEncounter. The data comes from all [facility]. Test Date/Time Test Type Test Details Facility Name Jul 10, 2024 12:00 AM Laboratory - Chemi stry Order VITAMIN B12 BLOOD (SST-SERUM) [facility] Jul 10, 2024 12:00 AM Laboratory - Chemi stry Order CBC BLOOD (LAV-BLOOD) [facility] Jul 10, 2024 12:00 AM Laboratory - Chemi stry Order BASIC METABOLIC PANEL (non-fasting) BLOOD (SST-SERUM) [facility] Jul 10, 2024 12:00 AM Laboratory - Chemi stry Order LIPID PANEL, NON FASTING BLOOD (SST-SERUM) [facility] Jul 10, 2024 12:00 AM Laboratory - Chemi stry Order IRON & TIBC PANEL BLOOD (SST-SERUM) [facility] Jul 10, 2024 12:00 AM Laboratory - Chemi stry Order LIVER FUNCTION BLOOD (SST-SERUM) [facility] Jul 10, 2024 12:00 AM Laboratory - Chemi stry Order TSH BLOOD (SST-SERUM) [facility] Jul 10, 2024 12:00 AM Laboratory - Chemi stry Order FERRITIN BLOOD (SST-SERUM) [facility] Encounter Notes: All associated encounter notes This section contains the clinical notes associated to the Encounter. Date/Time Encounter Note(s) Provider Source July 31, 2024 11:00 AM MOVE NOTE: LOCAL TITLE: WEIGHT MANAGEMENT/MOVE! OUTPATIENT GROUP NOTE STANDARD TITLE: MOVE NOTE DATE OF NOTE: JULY 31, 2024@11:00 ENTRY DATE: AUGUST 01, 2024@08:23 AUTHOR: SANTIAGO KRAMER COSIGNER: URGENCY: STATUS: COMPLETED participated in MOVE! Group Counseling via [facility] on July 31, 2024. The was provided with information on [facility] and has given verbal consent to use group VVC services for their healthcare. The copy of the Group Telehealth Agreement has been mailed to the . The Veterans location/emergency contact number were confirmed. The Emergency Call Relay Center ([phone]) was available. The visit was locked for security and privacy. [place] identified with 2 identifiers: [ ] Full Name [ ] Address Veterans attended the [facility] MOVE! group session on this date. MOVE! is a program designed to provide education about weight management skills to overweight and obese Veterans. Group members attended the first combined Support group on this date and their weight will serve as the baseline moving forward. Facilitators and Veterans all took time to introduce themselves and talked about their history with the MOVE program. A group member shared their struggle with starting an exercise routine. Faciliators and other group members gave suggestions and tips on to manage exercise. Group members shared their plans for the coming week. Facilitators introduced Clarisse a supply chain intern and she offered to provide education on a topic at next weeks session. [place] wanted a topic on plant based foods. The next [facility] MOVE! group meeting will be held on July @ 11:00am. 's reported weight was 214.5 lbs. and gained 0.6 pounds since last group attended. Dx: e66.811 z68.30 The session lasted for 1 hour in duration. /johanny/ SANTIAGO KRAMER STAFF DIETITIAN Signed: 08/01/2024 08:54 Receipt Acknowledged By: 08/01/2024 15:38 /johanny/ GORDON PATHAK, Ph.D. CLINICAL PSYCHOLOGIST SANTIAGO KRAMER
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
[2024-08-07] VITALS (11 sets, daily range): BP systolic 147–173; BP diastolic 68–86; PULSE 60–65; RESP 11–17; TEMP 36.1–36.8; O2SAT 95–99; BMI 30.4
--- NOTE | ~2024-08-07 | XR_ITS ---
EXAMINATION: XR CHEST CLINICAL INFORMATION: post pacemaker placement COMPARISON: None available. TECHNIQUE: Frontal view of the chest was obtained. FINDINGS: Left-sided dual-lead pacer device in place with leads extending into the right atrium and right ventricle. There is mild cardiac enlargement. The aorta is uncoiled, calcified, and tortuous. The mediastinal and hilar silhouettes appear normal. The lungs are clear bilaterally. No pneumothorax or effusion. No focal osseous or soft tissue abnormality. XR/XR chest 1V IMPRESSION: 1. Left-sided dual-lead pacer device in place with leads in the right atrium and right ventricle. 2. Mild cardiac enlargement. 3. No active lung disease. Electronically signed by: Malvin Guzman MD 08/07/2024 03:03 PM EDT
--- NOTE | ~2024-08-07 | IR_ITS ---
EXAMINATION: XR FLUOROSCOPY CLINICAL INFORMATION: PACEMAKER INSERTION OR PROCEDURE COMPARISON: None available. FINDINGS/ IR/IR fluoroscopy <1hr IMPRESSION: Intraoperative fluoroscopy was provided to referring physician for insertion of pacemaker. No radiologist was present. FLUOROSCOPY TIME: 5.4 minutes DOSE AREA PRODUCT: 137 uGy-m2 (microgray-meter squared) Electronically signed by: Pio Mills MD 08/22/2024 10:32 AM EDT
[2024-08-07] MEDS: Lactated Ringers 1,000 ML 100 ML IVCONT (11:21)
--- NOTE | 2024-08-07 13:39 | PC.NURSE ---
1st count Bhumi Burrows and Catrachita Erickson Sponge and sharps Marcie Lot [id number] Exp 06/10/2026 right lateral thigh placed by ANGELA White [id number] Cut 30 cooag 30 Tee [id number] sequential 07266 IR/OR C arm
--- NOTE | 2024-08-07 13:56 | PC.NURSE ---
08/07/2024 2nd count Brittani Patton RN and Catrachita Erickson 2nd count correct
--- NOTE | 2024-08-07 14:03 | PC.NURSE ---
08/07/2024 The irrigation used was 1 Liter of injectable saline mixed with one gram of Vancomycin
--- NOTE | 2024-08-07 14:11 | PC.NURSE ---
1411 Final count Brittani Patton RN, Roro Hanna;ANGELA leonard and Catrachita Huffwell, OR Tech Count correct
--- NOTE | 2024-08-07 14:32 | P.OP_ITS ---
Operative Note Operative Note Date of Service: 08/07/24 Narrative: Indication: Sinus node dysfunction Sinus bradycardia Left bundle branch block Summary: Medtronic dual chamber pacemaker implantation (CPT 59948) Narrative: Patient presented to the EP lab in a fasting, nonsedated state after written informed consent was verified. A timeout was called prior to beginning of the case. The procedure was performed under general anesthesia. 2g IV Ancef was initiated prior to skin incision. The patient was prepped and draped in the usual sterile fashion. A 1-inch incision was made medial the left deltopectoral groove. A pocket was created using a combination of electrocautery and blunt dissection. The left subclavian vein was accessed with a micropuncture needle after 10 cc of IV contrast was injected. Two seperate accesses were obtained under fluoroscopic guidance. The RV lead was advanced to the low RV septum using a combination of straight and curved stylets. The active fixation mechanism was extended in the usual manner. Lead parameters (sensing, current of injury, impedance, and capture threshold) were noted to be excellent. The RA lead was advanced to the RAA using a combination of straight and curved stylets. The active fixation mechanism was extended in the usual manner. Lead parameters (sensing, current of injury, impedance, and capture threshold) were noted to be excellent. Adequate slack was confirmed on both leads. The leads were secured to the underlying pectoralis muscle with 0-Ethibond sutures. The pocket was flushed with IV antibiotic irrigant. Any bleeders in the pocket were controlled with electrocautery. The leads were inserted into the respective ports of the pacemaker generator and locked using the provided wrench. The generator was then placed within the pocket and the leads were wrapped underneath the generator. The pocket was closed in 3 layers: 2-0 Vicryl followed by 4-0 V-Loc. Exofin was applied over the incision site. Gauze and tegaderm was then applied over the incision site. Recommendations: 1. Keep the chest incision site dry for 7 days. 2. No lifting more than 10 lbs with the left arm. 3. No raising the left arm above shoulder level or reaching behind the back. 4. Wear the left arm sling continuously for 24 hours, then wear only when sleeping for 2 weeks. 5. No driving for 2 weeks. 6. Resume aspirin after 2 days. Continue other home meds as before. 7. Follow up in EP clinic in 7-10 days for incision site check. Follow [place] with [facility] as scheduled.
--- NOTE | 2024-08-07 14:40 | ECG_ITS ---
Test Reason : CARDIOVERSION Blood Pressure : */* mmHG Vent. Rate : 60 BPM Atrial Rate : 60 BPM P-R Int : 258 ms QRS Dur : 150 ms QT Int : 476 ms P-R-T Axes : * -7 87 degrees QTcB Int : 476 ms Atrial-paced rhythm with prolonged AV conduction Left bundle branch block Abnormal ECG When compared with ECG of 11-Apr-2013 12:57, Electronic atrial pacemaker has replaced Sinus rhythm Left bundle branch block is now Present Referred By: Yakov Varela Electronically Signed By: ANCA CRANE MD
--- NOTE | 2024-08-08 13:30 | HO.POSTANES ---
Post Anesthesia Evaluation Post Anesthesia Evaluation Date of Service: 08/08/24 Anesthesia: General Mental Status: Awake Pain Control: Satisfactory Nausea/Vomiting: None Hydration: Adequate Anesthesia-Related Issues: No Anes. Related Issues
== END 2024-08-07 17:01 | disposition home or self-care (01) ==
PROVIDERS: PCP Internal Medicine; Visit Provider Student in an Organized Health Care Education/Training Program
PROC: (CPT 33208; principal; 2024-08-07 12:30)
DX: I49.5 Sick sinus syndrome (principal); R00.1 Bradycardia, unspecified; I44.7 Left bundle-branch block, unspecified; I11.0 Hypertensive heart disease with heart failure; R55 Syncope and collapse; Z79.82 Long term (current) use of aspirin; Z79.899 Other long term (current) drug therapy; Z87.891 Personal history of nicotine dependence
CPT/HCPCS: 33208; 71045; 76000; 93005; C1785; C1892; C1898; J0690; J1100; J2003; J2405; J2598; J2704; J3010; J3370; Q9967

== ENCOUNTER → 2024-08-07 14:40 | Outpatient (BNV) | payer MEDICARE, OTHER, SELFPAY | PROVIDERS: PCP Internal Medicine; Visit Provider Radiology Diagnostic Radiology | DX: I51.7 Cardiomegaly (principal) | CPT/HCPCS: 71045 ==

== ENCOUNTER → 2024-08-07 14:40 | Outpatient (BNV) | payer MEDICARE, OTHER, SELFPAY | PROVIDERS: PCP Internal Medicine; Visit Provider Internal Medicine Cardiovascular Disease | DX: I45.9 Conduction disorder, unspecified (principal); I44.7 Left bundle-branch block, unspecified; Z95.0 Presence of cardiac pacemaker | CPT/HCPCS: 93010 ==

== ENCOUNTER → 2024-08-23 23:59 | Outpatient (BNV) | payer MEDICARE, OTHER, SELFPAY ==
--- NOTE | 2024-09-03 16:48 | MHC.OFFVIS ---
Intake Visit Reasons: REmote device check- Medtronic Allergies morphine Allergy (Unknown, Verified 08/07/24 11:07) Unknown ENVIROMENTAL Allergy (Unknown, Uncoded 08/07/24 11:07) POST NASAL DRIP [facility] Medical History Painful arc syndrome of right shoulder Nocturia Lipid disorder Other specified hypothyroidism Prolactinoma Hypertension, essential Surgical History History of biopsy History of surgery Family History Father No problems noted. Mother Colon cancer Brother No problems noted. Brother No problems noted. Sister No problems noted. Social History Housing: House Are you a primary child care associate teacher to a significant other at home: No Do you presently have visiting nurse or other home services: No Alcohol intake: never Patient Tobacco Use Status: Former Tobacco user e-Cigarette/Vaping Use: Never Used service: Yes Current occupational status: retired Cognitive needs: No Hearing needs: No Vision needs: No Office Procedures Cardiac Device Check Cardiac Device Check Details: Remote pacemaker report generated 08/23/2024. Pacemaker function is adequate. I was requested to read this study today [id number] Cardiac Device Interrogation, pacemaker Procedure code (CPT) selection complete Assessment & Plan Assessment & Plan (1) Cardiac pacemaker in situ: Code(s): Z95.0 - Presence of cardiac pacemaker Category: Medical Plan: See above Coding Level of Care Code Procedure Only Diagnoses Cardiac pacemaker in situ Z95.0 CPT Codes Cardiac Device Check - Cardiac Device 12: [id number] Cardiac Device Interrogation, pacemaker ([id number])
== END ==
PROVIDERS: PCP Internal Medicine; Visit Provider Internal Medicine Cardiovascular Disease
DX: Z45.018 Encounter for adjustment and management of other part of cardiac pacemaker (principal)
CPT/HCPCS: 93294

== ENCOUNTER 2024-09-04 09:15 | Outpatient (AMB) | payer MEDICARE, OTHER, SELFPAY ==
--- NOTE | 2024-09-04 09:24 | MHC.OFFVIS ---
Vital Signs 09/04/24 09:26 Height 5 ft 11 in Weight 218 lb 4.122 oz BMI 30.4 BP 110/68 Blood Pressure Location Lt brachial Position Sitting Pulse 71 Pulse Source Monitor Intake Visit Reasons: 6 wk follow up medtronic Allergies morphine Allergy (Unknown, Verified 08/07/24 11:07) Unknown ENVIROMENTAL Allergy (Unknown, Uncoded 08/07/24 11:07) POST NASAL DRIP Medication List - Last Reconciled 09/04/24 by SEDRICK Camacho aspirin (Adult Aspirin Regimen) 81 mg PO DAILY bromocriptine 5 mg (2 x 2.5 mg) PO BEDTIME calcium carbonate-vitamin D3 600 mg-5 mcg (200 unit) 1 tab PO BID cetirizine (Allergy Relief (cetirizine)) 10 mg PO DAILY cholecalciferol (vitamin D3) 25 mcg PO DAILY finasteride 5 mg PO DAILY levothyroxine 100 mcg PO QAM losartan 100 mg PO DAILY rosuvastatin 20 mg PO DAILY tamsulosin 0.4 mg PO BEDTIME 90 days HPI HPI 6 wk follow up medtronic: Details: Bandar is an 84-year-old male with past medical history of hypertension, hyperlipidemia, abdominal aortic aneurysm, left bundle branch block, nonobstructive CAD, mild sleep apnea now on CPAP, who recently was admitted to [facility] recently following seizure type events at home. He was noted to have sinus bradycardia and his metoprolol was stopped. On last visit a cardiac event monitor was ordered for him which showed sinus pauses and evidence of high-degree heart block. He underwent pacemaker placement on 08/07/2024 and now presents for follow-up. Today he reports he has been having some fatigue otherwise feels well. He has not had recurrent presyncope or syncope since his pacemaker was placed. He is not having any chest discomfort, shortness of breath, lightheadedness. He notices that his heart rate is running faster than it had been. He is taking his meds as directed. Pacemaker site is feeling good. He did go to the surgeon's office for a wound check. Daughter is present. Patient asks if his heart problems are cause from Agent [place]. [facility] Medical History Painful arc syndrome of right shoulder Nocturia Lipid disorder Other specified hypothyroidism Prolactinoma Hypertension, essential Surgical History History of biopsy History of surgery Family History Father No problems noted. Mother Colon cancer Brother No problems noted. Brother No problems noted. Sister No problems noted. Social History Housing: House Are you a primary customer care voice consultant to a significant other at home: No Do you presently have visiting nurse or other home services: No Alcohol intake: never Patient Tobacco Use Status: Former Tobacco user e-Cigarette/Vaping Use: Never Used service: Yes Current occupational status: retired Cognitive needs: No Hearing needs: No Vision needs: No Review of Systems Const All systems reviewed & are unremarkable except as noted in HPI and below Reports fatigue and Denies weakness ENT Denies dizziness Card Denies chest pain, Denies chest pain with activity, Denies syncope, Denies rapid heart rate, Denies pedal edema, Denies edema, Denies leg edema, Denies lightheadedness, Denies palpitations, Denies dyspnea, Denies dyspnea on exertion and Denies orthopnea Resp Denies cough, Denies dyspnea and Denies dyspnea on exertion GI Denies hematochezia and Denies change in stool character Musc Denies abnormal gait, Denies muscle cramps, Denies muscle weakness, Denies numbness, Denies radiating pain into limb and Denies tingling Neuro Denies abnormal gait, Denies dizziness, Denies syncope, Denies numbness, Denies tingling and Denies weakness Endo Reports fatigue and Denies palpitations Physical Exam Vital Signs: Last Vital Signs Pulse 71 09/04/24 09:26 BP 110/68 09/04/24 09:26 BMI result Body Mass Index 30.4 Const General: cooperative, healthy appearing, comfortable and no acute distress Orientation/consciousness: patient oriented x3 Neck Neck: Yes normal visual inspection and Yes no JVD Chest Other: pacer site left upper chest intact, well approximated, skin glue in place, no redness, swelling or drainage Resp Effort & Inspection: normal respiratory effort Auscultation: clear to auscultation bilaterally, no crackles, no rales, no rhonchi and no wheezes Cardio Jugular venous distension: no JVD Rate: regular rate Rhythm: regular rhythm Heart sounds: S1 normal heart sound present, S2 normal heart sound present, no gallops, no murmurs and no rubs Peripheral pulses: Peripheral pulses 2+ throughout Neuro General: patient oriented x3 Extrem General: Yes normal to inspection and No no pedal edema Psych Appearance: grossly normal Mental Status: mental status grossly normal Speech and movement: Normal speech and movement present Office Procedures Cardiac Device Check Cardiac Device Check Details: Today, battery 13.7 years, AAI to DDD mode low rate 60, atrial threshold 0.75 volts at 0.4 milliseconds, RV threshold is 1 volt at 0.4 milliseconds, AT/ AF 0, V paced less than 1%, a paced 39.8% [id number] Cardiac Device Check, pacemaker dual lead Procedure code (CPT) selection complete EKG Details: Today, read by me, normal sinus rhythm with sinus arrhythmia, right axis, left bundle branch block, rate 70 [id number], Complete Assessment & Plan Assessment & Plan (1) Bradycardia: Code(s): R00.1 - Bradycardia, unspecified Category: Medical Plan: Recent [facility] evaluation for seizure type event and noted to have marked sinus bradycardia. His metoprolol was stopped. His heart rate improved during the admission. On last visit there was concerns that his seizure type event could be syncope from cardiac pauses or significant bradycardia. A cardiac event monitor was done for further evaluation showing sinus pause 5.1 seconds and 3.2 seconds as well as possible high-degree AV block with symptoms of lightheadedness and presyncope. There was also a question of possible atrial fibrillation. He underwent dual-chamber pacemaker placement 08/07/2024 and has had no presyncopal/syncopal events since then. He is still undergoing evaluation and treatment for possible seizures, follows with neurology. Device interrogation today shows it is functioning normally. EKG today shows sinus rhythm with sinus arrhythmia, left bundle branch block. Will continue to follow his device remotely and monitor for the presence of possible atrial fibrillation. At present no med changes made. (2) CAD (coronary artery disease): Code(s): I25.10 - Atherosclerotic heart disease of [place] coronary artery without angina pectoris Category: Medical Plan: Prior reports of fatigue and activity intolerance. He has cardiac risks of a strong family history of CAD in 3 of his siblings, age, hypertension, hyperlipidemia. His EKG shows left bundle branch block which is chronic. Echocardiogram done 12/28/2022 shows EF 54%, no valve abnormalities, mild increase in the LV wall thickness. Nuclear stress test done 12/29/2022 shows no clear ischemia or infarct, perfusion defects in the septum and inferior wall probably related to known left bundle branch block, normal EF. CTA of the coronary arteries was done on 10/17/2023 showing nonobstructive coronary artery disease with minimal stenosis of the left main, mild stenosis of the proximal LAD and minimal stenosis of the mid LAD, mild scattered atherosclerotic plaque in the descending thoracic aorta. He was then diagnosed with sleep apnea. His fatigue has improved since wearing his CPAP. - continue management for nonobstructive CAD with daily aspirin indefinitely. Continue rosuvastatin with ideal LDL goal less than 70. Signs and symptoms of angina reviewed with him. (3) Activity intolerance related to fatigue: Code(s): R53.83 - Other fatigue Category: Medical Plan: Much improved following the addition of nightly CPAP and now with pacemaker. (4) LBBB (left bundle branch block): Code(s): I44.7 - Left bundle-branch block, unspecified Category: Medical Plan: Present on EKG. Not new. EKG nondiagnostic for ischemia. (5) AAA (abdominal aortic aneurysm): Code(s): I71.40 - Abdominal aortic aneurysm, without rupture, unspecified Category: Medical Qualifiers: Abdominal aorta location: infrarenal aorta Presence of rupture: without rupture Qualified Code(s): I71.43 - Infrarenal abdominal aortic aneurysm, without rupture Plan: History of abdominal aortic aneurysm. Abdominal ultrasound done 01/25/2023 showed a 4.7 infrarenal abdominal aortic aneurysm. A CTA of the abdomen and pelvis was done on 03/05/2023 showing abdominal aortic aneurysm 4.5 cm. Was evaluated by Dr. Odonnell last October. He is on aspirin and statin. [place] LDL goal less than 70. Labs done 01/16/2024 showed LDL 63. He will continue follow with Dr. Odonnell. Reviewed light physical activity and no heavy lifting. (6) Seizure: Code(s): R56.9 - Unspecified convulsions Category: Medical Plan: As above. Following with neurology. Daughter states seizure disorder not confirmed yet. (7) Cardiac pacemaker in situ: Comment: Medtronic dual-chamber pacemaker 08/07/24 Code(s): Z95.0 - Presence of cardiac pacemaker Category: Medical Plan: Will arrange for full device check long with rep next visit. Plan I discussed with the patient and family the function of the newly implanted pacemaker, emphasizing its role in preventing further significant pauses and managing AV block. I clarified the potentiality of atrial fibrillation and the importance of monitoring through pacemaker telemonitoring, highlighting how AFib could affect fatigue levels and whether anticoagulation might be required in the event of confirmed presence of AFib. Consent was obtained for ongoing monitoring and the patient agreed to adhere to the guidelines for using the pacemaker monitoring system effectively. We emphasized the standard rhythms deriving from pacemaker data and its significance in ongoing health assessments. Patient Instructions: - Follow instructions for pacemaker monitoring; ensure regular telemonitoring transmits data. - Understand and report any new or worsening symptoms including dizziness, palpitations, general health changes. - Discuss [place] [facility] with [facility] for [facility] concerns. - No special restrictions; maintain current activity levels in accordance with how you feel. - Call for immediate help if feeling any chest pain or fainting episodes. Patient was informed and verbally consented to the use of an ambient scribe for clinic note documentation during this visit. Visit time spent on chart review, interview, assessment, orders, documentation. Coding Level of Care Code Est Pt Level 4 (11030) Complex EM visit Add On G2211 Diagnoses Bradycardia R00.1 CAD (coronary artery disease) I25.10 Activity intolerance related to fatigue R53.83 LBBB (left bundle branch block) I44.7 Infrarenal abdominal aortic aneurysm (AAA) without rupture I71.43 Abdominal aorta location: infrarenal aorta Presence of rupture: without rupture Seizure R56.9 Cardiac pacemaker in situ Z95.0 CPT Codes Cardiac Device Check - Cardiac Device 2: [id number] Cardiac Device Check, pacemaker dual lead ([id number]) EKG - CPT: 05656-[id number], Complete ([id number]) Time Spent (min) 32
[2024-09-04 09:26] VITALS: BP 110/68; PULSE 71; BMI 30.4
== END 2024-09-04 10:39 | disposition home or self-care (01) ==
LOC: HO.HCS 09:16
PROVIDERS: PCP Internal Medicine; Visit Provider Nurse Practitioner Family
DX: R00.1 Bradycardia, unspecified (principal); I25.10 Atherosclerotic heart disease of native coronary artery without angina pectoris; R53.83 Other fatigue; I44.7 Left bundle-branch block, unspecified; I71.43 Infrarenal abdominal aortic aneurysm, without rupture; R56.9 Unspecified convulsions; Z95.0 Presence of cardiac pacemaker
CPT/HCPCS: 93010; 93280; 99214; G2211

== ENCOUNTER → 2024-09-04 09:15 | Outpatient (BNVA) | payer MEDICARE, OTHER, SELFPAY | PROVIDERS: PCP Internal Medicine; Visit Provider Nurse Practitioner Family | DX: Z45.018 Encounter for adjustment and management of other part of cardiac pacemaker (principal); I25.10 Atherosclerotic heart disease of native coronary artery without angina pectoris; I44.7 Left bundle-branch block, unspecified; I71.43 Infrarenal abdominal aortic aneurysm, without rupture; R00.1 Bradycardia, unspecified; R53.83 Other fatigue; R56.9 Unspecified convulsions; R94.31 Abnormal electrocardiogram [ECG] [EKG] | CPT/HCPCS: 93005; 93280; 99212 ==

== ENCOUNTER 2024-10-06 14:45 | Outpatient (AMB) | payer MEDICARE, OTHER, SELFPAY ==
--- NOTE | 2024-10-07 16:38 | A.OFFVIS_ITS ---
Intake Visit Reasons: device ck only Allergies morphine Allergy (Unknown, Verified 08/07/24 11:07) Unknown ENVIROMENTAL Allergy (Unknown, Uncoded 08/07/24 11:07) POST NASAL DRIP [facility] Medical History Painful arc syndrome of right shoulder Nocturia Lipid disorder Other specified hypothyroidism Prolactinoma Hypertension, essential Surgical History History of biopsy History of surgery Family History Father No problems noted. Mother Colon cancer Brother No problems noted. Brother No problems noted. Sister No problems noted. Social History Housing: House Are you a primary manager progressive care to a significant other at home: No Do you presently have visiting nurse or other home services: No Alcohol intake: never Patient Tobacco Use Status: Former Tobacco user e-Cigarette/Vaping Use: Never Used service: Yes Current occupational status: retired Cognitive needs: No Hearing needs: No Vision needs: No Office Procedures Cardiac Device Check Cardiac Device Check Details: Medtronic dual-chamber pacemaker interrogation showing battery 13.3 years, DDD to AAI mode, low rate 60, atrial threshold 0.75 volts at 0.4 milliseconds, RV threshold 1 volt at 0.4 milliseconds in no alerts, atrial paced 36.4%, V pace 18.6% 30518-JK Cardiac Device Check, pacemaker dual lead Procedure code (CPT) selection complete Assessment & Plan Assessment & Plan (1) Cardiac pacemaker in situ: Comment: Medtronic dual-chamber pacemaker 08/07/24 Code(s): Z95.0 - Presence of cardiac pacemaker Category: Medical Plan: Device check Coding Level of Care Code Procedure Only Diagnoses Cardiac pacemaker in situ Z95.0 CPT Codes Cardiac Device Check - Cardiac Device 2: 52579-SP Cardiac Device Check, pacemaker dual lead ([id number])
== END 2024-10-06 15:28 | disposition home or self-care (01) ==
LOC: HO.HCS 14:46
PROVIDERS: PCP Internal Medicine; Visit Provider Nurse Practitioner Family
DX: Z45.018 Encounter for adjustment and management of other part of cardiac pacemaker (principal)
CPT/HCPCS: 93280

== ENCOUNTER → 2024-10-06 14:45 | Outpatient (BNVA) | payer MEDICARE, OTHER, SELFPAY | PROVIDERS: PCP Internal Medicine; Visit Provider Nurse Practitioner Family | DX: Z45.018 Encounter for adjustment and management of other part of cardiac pacemaker (principal) | CPT/HCPCS: 93280 ==

== ENCOUNTER 2024-10-24 09:51 | Outpatient (REF) | payer MEDICARE, OTHER, SELFPAY ==
--- NOTE | ~2024-10-24 | US_ITS ---
EXAMINATION: US RETROPERITONEAL LIMITED (AORTA) CLINICAL INFORMATION: Infrarenal abdominal aorta.. COMPARISON: September 25, 2023. Correlated to CT angiogram aorta dated March 05, 2023. TECHNIQUE: Francisco-scale, color Doppler and spectral Doppler evaluation of the abdominal aorta. FINDINGS: The aorta is patent without intraluminal flap. There is irregularity and the calcified plaques in the distal abdominal aorta with a saccular dilatation. The measurements of the aorta in maximum AP and transverse dimensions respectively are as follows: Proximal: 3.1 x 3.4 cm. Mid: 2.2 x 2.2 cm. Distal: 4.7 x 5.0 cm. The measurements of the common iliac arteries in maximum dimensions are as follows: Right: AP: 1.2 cm. TRV: 1.5 cm. Left: AP: 1.3 cm. TRV: 1.4 cm. US/US abdominal aortic aneurysm IMPRESSION: 4.7 x 5.0 cm saccular aneurysm, distal abdominal aorta. Slightly larger since prior exam.. Electronically signed by: Burt Leung MD 10/24/2024 10:35 AM EDT
== END 2024-10-24 09:52 | disposition home or self-care (01) ==
LOC: HO.HMGCX 09:51
PROVIDERS: PCP Internal Medicine; Visit Provider Surgery Vascular Surgery
DX: I71.43 Infrarenal abdominal aortic aneurysm, without rupture (principal)
CPT/HCPCS: 76706

== ENCOUNTER → 2024-10-24 09:53 | Outpatient (BNV) | payer MEDICARE, OTHER, SELFPAY | PROVIDERS: PCP Internal Medicine; Visit Provider Radiology Diagnostic Radiology | DX: I71.43 Infrarenal abdominal aortic aneurysm, without rupture (principal) | CPT/HCPCS: 76706 ==

== ENCOUNTER 2024-11-20 13:32 | Outpatient (AMB) | payer MEDICARE, OTHER, SELFPAY ==
--- OUTSIDE RECORDS SUMMARY | 2024-07-25 11:30 | XMS_ITS | Encounter Summary ---
Author Name Department of Vetera Affairs ([place]) Organization [place] Address [address] [place] [address] Care Team Providers Care Director Private Music Therapy Agency Name Role Phone LUCAS STRATTON Primary Care [...] PART B Sep 23, 2014 PART B [id number] [id number] HARMONY MCCALL JR PATIENT MEDICARE (WNR) MEDICARE (M) PART A July 25, 2007 PART A [id number] [id number] HARMONY MCCALL JR PATIENT MEDICARE (WNR) MEDICARE (M) PART B July 25, 2007 PART B [id number] [id number] HARMONY MCCALL JR PATIENT MEDICARE (WNR) MEDICARE (M) PART A July 25, 2007 PART A [id number] [id number] [phone] [id number] HARMONY MCCALL JR PATIENT WELLPOINT MEDICAL EXPENSE (OPT/PROF ) [facility] * Jan 24, 2015 [id number] 18 ACROLE MCCALL SPOUSE Selected Encounter This section includes the information on record at [place] for the Encounter. Date/Time Encounter Type Encounter Description Reason Provider Source July 25, 2024 03:30 PM OFFICE O/P EST MOD 30 MIN PRIMARY CARE/MEDICINE ICD-10-CM R55 Syncope and collapse ELIAN STRATTON AM [facility] Encounter Template Text not used by [place] Assessments - Encounter Diagnoses This section includes the primary and secondary diagnoses documented for the Encounter. Date/Time Primary/Secondary Diagnosis Diagnosis Name Provider Source Oct 15, 2024 08:51 AM PRIMARY Syncope and collapse ELIAN STRATTON AM [facility] Plan of Treatment: Future Appointments [...] Type Appointme nt Facility Name July 31, 2024 11:00 AM AMBULATORY - NONE [place] Aug 28, 2024 11:00 AM AMBULATORY - NONE [place] Sep 18, 2024 11:00 AM AMBULATORY - NONE [place] Oct 02, 2024 11:00 AM AMBULATORY - NONE [place] Oct 07, 2024 10:00 AM AMBULATORY - MEDICINE [facility] Oct 09, 2024 11:00 AM AMBULATORY - NONE [place] Oct 23, 2024 11:00 AM AMBULATORY - NONE [place] Nov 13, 2024 11:00 AM AMBULATORY - NONE [place] Nov 20, 2024 11:00 AM AMBULATORY - NONE [place] [...] Chemi stry Order VITAMIN B12 BLOOD (SST-SERUM) [facility] Jul 10, 2024 12:00 AM Laboratory - Chemi stry Order BASIC METABOLIC PANEL (non-fasting) BLOOD (SST-SERUM) [facility] Jul 10, 2024 12:00 AM Laboratory - Chemi stry Order CBC BLOOD (LAV-BLOOD) [facility] Jul 10, 2024 12:00 AM Laboratory - Chemi stry Order LIVER FUNCTION BLOOD (SST-SERUM) [facility] Jul 10, 2024 12:00 AM Laboratory - Chemi stry Order IRON & TIBC PANEL BLOOD (SST-SERUM) [facility] Jul 10, 2024 12:00 AM Laboratory - Chemi stry Order LIPID PANEL, NON FASTING BLOOD (SST-SERUM) [facility] Jul 10, 2024 12:00 AM Laboratory - Chemi stry Order TSH BLOOD (SST-SERUM) [facility] Jul 10, 2024 12:00 AM Laboratory - Chemi stry Order FERRITIN BLOOD (SST-SERUM) [facility] Vital Signs: All taken on the encounter date This section contains inpatient and outpatient Vital Signs collected on the date of the Encounter. Date/Time Temperature Pulse Blood Pressure Respiratory Rate SP02 Pain Height Weight Body Mass Index Source July 25, 2024 03:13 PM 98.3 72 124/80 20 99 2 68 222 34 [facility] Social History: Smoking Status (Most [...] 21, 2024 11:00 AM VA-TOBACCO FORMER USER [facility] Tobacco Use History This section includes a history of the smoking, or tobacco-related health factors, that were collected on or before the date of the Encounter. The data comes from the [place] facility where the Encounter took place. Date/Time Smoking Status/Tobacco Use Comment [facility] Jan 21, 2024 11:00 AM VA-TOBACCO QUIT 15 YRS OR MORE [place] [facility] [place] [facility] Jan 26, 2023 01:30 PM VA-TOBACCO FORMER USER [place] [facility] [place] [facility] Jan 26, 2023 01:30 PM VA-TOBACCO QUIT 15 YRS OR MORE [facility] [place] [facility] Jan 27, 2022 11:00 AM VA-TOBACCO FORMER USER [place] [facility] [place] [facility] Jan 27, 2022 11:00 AM VA-TOBACCO QUIT 15 YRS OR MORE [place] [facility] [place] [facility] Sep 17, 2020 09:00 AM VA-TOBACCO FORMER USER [place] [facility] [place] [facility] Sep 17, 2020 09:00 AM VA-TOBACCO QUIT 15 YRS OR MORE [place] [facility] [place] [facility] Jun 04, 2019 02:57 PM VA-TOBACCO NEVER USED [place] [facility] [place] [facility] Mar 14, 2018 11:23 AM VA-TOBACCO FORMER USER [place] [facility] [place] [facility] Mar 14, 2018 11:23 AM VA-TOBACCO QUIT 15 YRS OR MORE [place] [facility] [place] [facility] Apr 04, 2017 12:30 PM QUIT TOBACCO USE > 7 YEARS AGO [place] [facility] [place] [facility] Apr 05, 2016 01:02 PM QUIT TOBACCO USE > 7 YEARS AGO quit in 1984 [place] [facility] [place] [facility] Encounter Notes: All associated encounter notes This section contains the clinical notes associated to the Encounter. Date/Time Encounter Note(s) Provider Source July 25, 2024 03:30 PM PRIMARY CARE NURSE PRACTITIONER OUTPATIENT NOTE: LOCAL TITLE: NURSE PRACTITIONER OUTPATIENT NOTE STANDARD TITLE: PRIMARY CARE NURSE PRACTITIONER OUTPATIENT NOTE DATE OF NOTE: JULY 25, 2024@15:30 ENTRY DATE: JULY 31, 2024@09:56:10 AUTHOR: LUCAS STRATTON COSIGNER: URGENCY: STATUS: COMPLETED Chief complaint: Patient is a 83 year old . HPI: Pleasant male [place] here with his daughter s/p hospitalization for syncope vs. seizures. He is now following with neurology, Dr. Bernard in [place] and cardiology, Marsha Dominguez NP in [place]. He was having previous issues with dizziness and syncope, at this point there is consideration his heart rate was going too low, he has stopped BB and has been doing well. He maintains non va as provider. Allergies: Patient has answered NKA The following VA and Non-VA meds were reconciled with patient. The patient was educated on the use of the medications including indication and side effects. Active and Recently Outpatient Medications (excluding Supplies): Active Outpatient Medications Status 1) CARBOXYMETHYLCELLULOSE NA 0.5% OPH SOLN INSTILL 1 DROP INTO ACTIVE EACH EYE FOUR TIMES A DAY Indication: FOR DRY EYE Active Non-VA Medications Status 1) Non-VA ASPIRIN 81MG CHEW TAB 81MG BY MOUTH DAILY ACTIVE 2) Non-VA BROMOCRIPTINE MESYLATE 0.8MG TAB 2.4MG BY MOUTH ONCE ACTIVE DAILY 3) Non-VA CALCIUM 200MG (CA CITRATE-950MG) TAB 600 MG BY MOUTH ACTIVE DAILY 4) Non-VA CETIRIZINE HCL 10MG TAB 10MG BY MOUTH DAILY ACTIVE 5) Non-VA CHOLECALCIF 25MCG (D3-1,000UNIT) TAB 1000UNIT BY ACTIVE MOUTH DAILY 6) Non-VA LEVOTHYROXINE NA 125MCG TAB 125MCG BY MOUTH EVERY ACTIVE MORNING 30 MINUTES BEFORE BREAKFAST Indication: FOR THYROID 7) Non-VA LOSARTAN 100MG TAB 100MG BY MOUTH ONCE DAILY ACTIVE 8) Non-VA OTHER CAP/TAB 5 MG BY MOUTH DAILY ACTIVE 9) Non-VA TAMSULOSIN HCL 0.4MG CAP 0.4MG BY MOUTH ONCE DAILY ACTIVE 10 Total Medications Review of Systems: Constitutional: (-)for Fevers, chills, weakness, nights sweats On examination: 98.3 F [36.8 C] (07/25/2024 15:13)124/80 (07/25/2024 15:13)72 (07/25/2024 15:13)20 (07/25/2024 15:13)2 (07/25/2024 15:13)BMI: 33.8222 lb [100.70 kg] (07/25/2024 15:13) [place] is alert and oriented X3 Eyes:No scleral icterus, lids normal, Pupils equal,round and reactive to light HEENT: External without scars, lesions or masses, TM's without erythema or perforations, Oropharynx without erythema or exudates or worrisome lesions Neck: supple without masses, trachea midline, ln [...] Problem List is the source for the following: syncope vs. sz - see above Today I spent 30 minutes on some or all of the following: chart review, history, physical examination, treatment planning, education and counseling of the patient/family/critical care registered nurse, placing orders, communicating with other health care providers, completing health and wellness screenings (see below) and documentation in the electronic health record. Follow up visit in 12 mos. Medication Reconciliation: Outpatient: Has the patient been taking medications as documented in the EMLR? YES: The patient has been taking medications as documented in the EMLR. Essential Medication List for Review used to complete this medication reconciliation. INCLUDED IN THIS LIST: Alphabetical list of active outpatient prescriptions dispensed from this [place] (local) and dispensed from another VA or [...] or non-VA provider. /johanny/ Lucas Stratton DNP, PIT LABORER-BC, CNL Primary Care Nurse Practitioner Signed: 07/31/2024 09:59 LUCAS STRATTON [place] [facility] [place] [facility] July 25, 2024 03:19 PM PREVENTIVE MEDICINE NURSING NOTE: LOCAL TITLE: CLINICAL REMINDERS/NURSING STANDARD TITLE: PREVENTIVE MEDICINE NURSING NOTE DATE OF NOTE: JULY 25, 2024@15:19 ENTRY DATE: JULY 25, 2024@15:19:23 AUTHOR: ARRON AUGUSTIN COSIGNER: URGENCY: STATUS: COMPLETED Advance Directive Screen MH AD: Patient does not have an Advance Directive completed and is requesting more information. A consult was sent to Social Work Services at this visit so that an appointment can be made with the patient to review the advance directive. The patient received education about Advance Directives and written notification of his/her rights. Suicide Screen: C-SSRS Screening [place]-Suicide Severity Rating Scale (C-SSRS Screener) 1. Over [...] Not worried about housing near future The [place] reports the following: Within the past 12 months, you worried whether your food would run out before you got money to buy more. Never true Within the past 12 months, the food you bought just didn't last and you didn't have money to get more. Never true Homelessness/Food Insecurity Screen: The reports the following: Within the past 12 months, you worried whether your food would run out before you got money to buy more. Never true Within the past 12 months, the food you bought just didn't last and you didn't have money to get more. Never true /johanny/ Arron [facility] Records Management Officer LITIGATION SERVICES MANAGER,PRIMARY CARE Signed: 07/25/2024 15:20 ARRON AUGUSTIN [facility]
--- OUTSIDE RECORDS SUMMARY | 2024-08-28 07:00 | XMS_ITS | Encounter Summary ---
Author Name [facility] Address [address] [place] [id number] Care Team Providers Care Imagery Intelligence Name Role Phone LEN MENDOZA Primary Care [...] PART B Sep 23, 2014 PART B [id number] HARMONY MCCALL JR PATIENT MEDICARE (WNR) MEDICARE (M) PART A July 25, 2007 PART A [id number] [phone] HARMONY MCCALL JR PATIENT MEDICARE (WNR) MEDICARE (M) PART B July 25, 2007 PART B [id number] [phone] HARMONY MCCALL JR PATIENT MEDICARE (WNR) MEDICARE (M) PART A July 25, 2007 PART A [id number] [phone] HARMONY MCCALL JR PATIENT [employer] (OPT/PROF ) [facility] * Jan 24, 2015 [id number] CAROLE MCCALL SPOUSE Selected Encounter This section includes the information on record at [place] for the Encounter. Date/Time Encounter Type Encounter Description Reason Provider Source Aug 28, 2024 11:00 AM HLTH BHV IVNTJ GRP EA ADDL WEIGHT MGMT & MOVE! PROG - GRP ICD-10-CM E66.811 Obesity, class 1 GORDON PATHAK [facility] Encounter Template Text not used by [facility] Assessments - Encounter Diagnoses This section includes the primary and secondary diagnoses documented for the Encounter. Date/Time Primary/Secondary Diagnosis Diagnosis Name Provider Source Aug 28, 2024 04:33 PM PRIMARY Obesity, class 1 GORDON PATHAK [place] Aug 28, 2024 04:33 PM SECONDARY Body mass index [BMI] 31.0-31.9, adult GORDON PATHAK ASMITA Plan of Treatment: Future [...] Appointment Type Appointme nt Facility Name Sep 18, 2024 11:00 AM AMBULATORY - NONE [place] Oct 02, 2024 11:00 AM AMBULATORY - NONE [place] Oct 07, 2024 10:00 AM [facility] Oct 09, 2024 11:00 AM AMBULATORY - NONE [place] Oct 23, 2024 11:00 AM AMBULATORY - NONE [place] Nov 13, 2024 11:00 AM AMBULATORY - NONE [place] Nov 20, 2024 11:00 AM AMBULATORY - NONE [place] Feb 24, 2025 10:00 AM [facility] [place] [facility] Vital Signs: All taken on the encounter date This section contains inpatient and outpatient Vital Signs collected on the date of the Encounter. Date/Time Temperature Pulse Blood Pressure Respiratory Rate SP02 Pain Height Weight Body Mass Index Source Aug 28, 2024 11:00 AM 217.4 lb 33 [place] Encounter Notes: All associated encounter notes This section contains the clinical notes associated to the Encounter. Date/Time Encounter Note(s) Provider Source Aug 28, 2024 04:25 PM MOVE NOTE: LOCAL TITLE: WEIGHT MANAGEMENT/MOVE! OUTPATIENT GROUP NOTE STANDARD TITLE: MOVE NOTE DATE OF NOTE: AUG 28, 2024@16:25 ENTRY DATE: AUG 28, 2024@16:25:59 AUTHOR: GORDON PATHAK COSIGNER: URGENCY: STATUS: COMPLETED participated in MOVE! Group Counseling via [facility] on August 28, 2024. The was provided with information on [facility] and has given verbal consent to use group VV services for their healthcare. The copy of the Group Telehealth Agreement has been mailed to the [place]. The Veterans location/emergency contact number were confirmed. The Emergency Call Relay Center (E911) was available. The visit was locked for security and privacy. identified with 2 identifiers: [ ] Full Name [ ] Address Veterans attended the [facility] MOVE! group session on this date. MOVE! is a program designed to provide education about weight management skills to overweight and obese Veterans. Group members attended the Support group on this date and combined to lose 2.2 pounds since their last group attended. The group began talking about the utility of the BMI chart. Facilitators shared the useful aspects of it and why doctors still refer to it while also reiterating the benefit of choosing one's own weight loss goals and using the BMI chart as a reference and general guideline. Discussed the benefits that can be achieved with a 10% weight loss. Veterans were particularly motivated to learn that medication dosages might be reduced or eliminated completely. Several group members shared lessons learned from this past week. Veterans talked about the importance of finding meaningful ways to celebrate successes and treat oneself to activities that produce happiness so that folks do not turn to food for comfort. Veterans promised to share their activities with the group next week and liked the goal to summer hard by living their preferred lifestyle that brings them missy and good health. The next [facility] MOVE! group meeting will be held on August @ 11:00am. [place]'s reported weight was 217.4 lbs. and gained 2.9 pounds since last group attended. Dx: Obesity Class 1 BMI 31.0-31.9 The session lasted for 1 hour in duration. /es/ GORDON PATHAK, Ph.D. CLINICAL PSYCHOLOGIST Signed: 08/28/2024 16:49 Receipt Acknowledged By: 09/03/2024 12:25 /es/ SANTIAGO KRAMER STAFF DIETITIAN GORDON PATHAK
--- OUTSIDE RECORDS SUMMARY | 2024-10-07 06:00 | XMS_ITS | Encounter Summary ---
Author Name [facility] [place] [facility] [place] Address [address] [place] [address] Care Team Providers Care Jewel Supervisor Name Role Phone LEN MEDNOZA Primary Care [...] PART B Sep 23, 2014 PART B [id number] [phone] 2 HARMONY MCCALL JR PATIENT MEDICARE (WNR) MEDICARE (M) PART A July 25, 2007 PART A [id number] HARMONY MCCALL JR PATIENT MEDICARE (WNR) MEDICARE (M) PART B July 25, 2007 PART B [id number] HARMONY MCCALL JR PATIENT MEDICARE (WNR) MEDICARE (M) PART A July 25, 2007 PART A [id number] HARMONY MCCALL JR PATIENT [employer] (OPT/PROF ) [facility] * Jan 24, 2015 [id number] CAROLE MCCALL SPOUSE Selected Encounter This section includes the information on record at [place] for the Encounter. Date/Time Encounter Type Encounter Description Reason Provider Source Oct 07, 2024 10:00 AM OFFICE O/P EST MOD 30 MIN OPTOMETRY ICD-10-CM L71.8 Other rosacea NIMO GEE E Encounter Template Text not used by [place] Assessments - Encounter Diagnoses This section includes the primary and secondary diagnoses documented for the Encounter. Date/Time Primary/Secondary Diagnosis Diagnosis Name Provider Source Oct 07, 2024 10:36 AM PRIMARY Other rosacea NIMO GEE [place] [facility] [place] [facility] Oct 07, 2024 10:36 AM SECONDARY Benign neoplasm of pituitary gland NIMO GEE [facility] [place] [facility] Oct 07, 2024 10:36 AM SECONDARY Dry eye syndrome of bilateral lacrimal glands NIMO GEE [facility] [place] [facility] Oct 07, 2024 10:36 AM SECONDARY Endothelial corneal dystrophy, bilateral NIMO GEE [facility] [place] [facility] Oct 07, 2024 10:36 AM SECONDARY Meibomian gland dysfnct left eye, upper and lower eyelids NIMO GEE [facility] [place] [facility] Oct 07, 2024 10:36 AM SECONDARY Meibomian gland dysfnct right eye, upper and lower eyelids NIMO GEE [facility] [place] [facility] Oct 07, 2024 10:36 AM SECONDARY Presence of intraocular lens NIMO GEE [facility] [place] [facility] Oct 07, 2024 10:36 AM SECONDARY Vitreous degeneration, bilateral NIMO GEE [place] [facility] [place] [facility] Plan of Treatment: Future Appointments [...] Appointment Type Appointme nt Facility Name Oct 09, 2024 11:00 AM AMBULATORY - NONE [facility] [facility] Oct 23, 2024 11:00 AM AMBULATORY - NONE [facility] [facility] Nov 13, 2024 11:00 AM AMBULATORY - NONE [facility] Nov 20, 2024 11:00 AM AMBULATORY - NONE [place] Feb 24, 2025 10:00 AM AMBULATORY - MEDICINE [place] [facility] [place] [facility] Mar 03, 2025 10:00 AM AM[facility] - [facility] Social History: Smoking Status (Most current) [...] 21, 2024 11:00 AM VA-TOBACCO FORMER USER [place] [facility] [place] [facility] Tobacco Use History This section includes a history of the smoking, or tobacco-related health factors, that were collected on or before the date of the Encounter. The data comes from the [place] facility where the Encounter took place. Date/Time Smoking Status/Tobacco Use Comment F acility Jan 21, 2024 11:00 AM VA-TOBACCO QUIT 15 YRS OR MORE [facility] [place] [facility] Jan 26, 2023 01:30 PM VA-TOBACCO FORMER USER [facility] [place] [facility] Jan 26, 2023 01:30 PM VA-TOBACCO QUIT 15 YRS OR MORE [facility] [place] [facility] Jan 27, 2022 11:00 AM VA-TOBACCO FORMER USER [facility] [place] [facility] Jan 27, 2022 11:00 AM VA-TOBACCO QUIT 15 YRS OR MORE [facility] [place] [facility] Sep 17, 2020 09:00 AM VA-TOBACCO FORMER USER [facility] [place] [facility] Sep 17, 2020 09:00 AM VA-TOBACCO QUIT 15 YRS OR MORE [facility] [place] [facility] Jun 04, 2019 02:57 PM VA-TOBACCO NEVER USED [facility] [place] [facility] Mar 14, 2018 11:23 AM VA-TOBACCO FORMER USER [place] [facility] [place] [facility] Mar 14, 2018 11:23 AM VA-TOBACCO QUIT 15 YRS OR MORE [facility] Apr 04, 2017 12:30 PM QUIT TOBACCO USE > 7 YEARS AGO [facility] [place] [facility] Apr 05, 2016 01:02 PM QUIT TOBACCO USE > 7 YEARS AGO quit [facility] Encounter Notes: All associated encounter notes This section contains the clinical notes associated to the Encounter. Date/Time Encounter Note(s) Provider Source Oct 07, 2024 10:30 AM OPTOMETRY NOTE: LOCAL TITLE: OPTOMETRY NOTE STANDARD TITLE: OPTOMETRY NOTE DATE OF NOTE: OCT 07, 2024@10:30 ENTRY DATE: OCT 07, 2024@10:30:19 AUTHOR: GRECIA GEE COSIGNER: URGENCY: STATUS: COMPLETED I saw this patient in conjunction with the student and agree to the stated findings and plan as noted below after reviewing both the history and repeating valdovinos elements of the physical exam. Patient with history of previous bilateral upper lid blepharoplasty as well as bilateral cataract surgery returns today for examination. He has a history of dry eye disease and notes burning eyes without use of lubricating drops. 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 His last eye examination was here on September 25, 2023. Impression: Rosacea facies with meibomian gland dysfunction all 4 lids with mild bilateral dry eye disease and mild superficial punctate keratitis each eye. Restart lubricating drops 3-4 times a day each eye. Mild bilateral Fuchs corneal dystrophy not impacting best corrected acuity. Bilateral pseudophakia looks perfect declines new reading glasses today. Bilateral bilateral posterior vitreous detachments with no evidence of retinal hole, tear, detachment either eye. 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 Plan: Patient education as noted above. Discussed presence of dry eyes with need for consistent daily use of lubricating drops 3-4 times a day each eye. Order lubricating drops now for mail out. Declines new reading glasses today. Return in 12 months or sooner if need be. Ophthalmic medication reconciliation: Lubricating drops 3-4 times a day each eye. Total time spent: Chart review, history, examining and counseling patient, entering orders, medical decision making as well as clinical documentation 35 minutes - 3 refraction = 32 minutes. Medication Reconciliation: Outpatient: Has the patient been taking medications as documented in the EMLR? YES: The patient has been taking medications as documented in the EMLR. Essential Medication List for Review used to complete this medication reconciliation. INCLUDED IN THIS LIST: Alphabetical list of active outpatient prescriptions dispensed from this [facility] (local) and dispensed from another [place] or [facility] facility (remote) as well as inpatient orders [...] Remote Allergy/ADR Data available for this patient [place] [facility] [place] [facility] No Known Allergies Med Recon NoGlossary (Tool #1) INCLUDED IN THIS LIST: Alphabetical list of active outpatient prescriptions dispensed from this [place] (local) and dispensed from another [place] or [facility] facility (remote) as well as inpatient orders (local pending and active), local clinic medications, locally documented non-VA medications, and local prescriptions that have or been discontinued in the past 90 days. Non-VA Meds Last Documented On: Jul 23, 2023 NOTE The display of VA prescriptions dispensed from another VA or [facility] facility (remote) is limited to active outpatient prescription entries matched to National Drug File at the originating site and may not include some items such as investigational drugs, compounds, etc. NOT INCLUDED IN THIS LIST: Medications self-entered by the patient into personal health records (i.e. [employer]) are NOT included in this list. Non-VA [...] CARBOXYMETHYLCELLULOSE NA 0.5% OPH SOLN (Status = ) INSTILL 1 DROP INTO EACH EYE FOUR TIMES A DAY FOR DRY EYE Rx# [id number] Last Released: 09/28/23 Qty/Days Supply: Rx Expiration Date: 09/25/24 Refills Remainin Indication: FOR DRY EYE Non-VA CETIRIZINE HCL 10MG TAB TAKE ONE TABLET BY MOUTH DAILY Non-VA CHOLECALCIF 25MCG (D3-1,000UNIT) TAB TAKE ONE TABLET BY MOUTH DAILY Non-VA LEVOTHYROXINE NA 125MCG TAB TAKE ONE TABLET BY MOUTH EVERY MORNING 30 MINUTES BEFORE BREAKFAST Indication: FOR THYROID Non-VA LOSARTAN 100MG TAB TAKE ONE TABLET BY MOUTH ONCE DAILY Patient wants to buy from Non-VA pharmacy. Medication prescribed by Non-VA provider. Non-VA OTHER CAP/TAB TAKE 5 MG BY MOUTH DAILY bronocystine Non-VA TAMSULOSIN HCL 0.4MG CAP TAKE 1 CAPSULE BY MOUTH ONCE DAILY Medication prescribed by Non-VA provider. SUPPLIES Declines printed copy of medication list now. /johanny/ Grecia Gee OD CHIEF OF OPTOMETRY Signed: 10/07/2024 10:38 GRECIA GEE [facility] [facility] Oct 07, 2024 09:47 AM OPTOMETRY NOTE: LOCAL TITLE: OPTOMETRY NOTE STANDARD TITLE: OPTOMETRY NOTE DATE OF NOTE: OCT 07, 2024@09:47 ENTRY DATE: OCT 07, 2024@09:47:22 AUTHOR: RUDOLPH VALVERDE COSIGNER: GRECIA GEE URGENCY: STATUS: COMPLETED Active problems - Computerized Problem List is the source for the followin. Syncope 2. Exposure to potentially hazardous substance 3. Sleep apnea 4. COVID-19 5. Iron deficiency anemia 6. Abdominal aortic aneurysm 7. Osteoarthritis 8. Prolactinoma 9. Gastroesophageal reflux disease 10. Benign hypertension 11. Hypothyroidism 12. Hypercholesterolemia 13. Allergic rhinitis Active Outpatient Medications (including Supplies): Active Non-VA Medications Status = 1) Non-VA ASPIRIN 81MG CHEW TAB 81MG [...] CAP 0.4MG BY MOUTH ONCE DAILY ACTIVE Allergies: Patient has answered NKA All medications including those prescribed by outside VA's, community providers, and all OTC meds were reviewed and reconciled with patient to the best of their abilities. This 84 year old MALE is seen today for CEE. BISHNU:09/25/2023 Chief Complaint: Patient presents with stable vision, only wears NVOs. Just needs more light, doesn't feel like he really even needs the reading glasses. Feels burning sensation off and on throughout the eyar. [place] relief from from refrash drops but stopped using them for awhile. Feels like the summer is the worst. OHx: -MGD and ocular rosacea OU -h/o bilateral blepharoplasty w/ residual ptosis OD -residual ptosis OD -h/o herpes zoster September 2018 involving RUL without ocular involvement -Pseudophakia OU (-) Pain: (-) CAMEJO: (-) Diplopia: (-) Flashes: (x) Floaters: very rare and doesn't bother him anymore (-) Amaurosis Fugax/Tia's: (-) Eye Injury: (-) Eye Surgery: UL blepharoplasty OU, CE OU (-) TBI FOHx: (-) Glaucoma/ARMD/Blindness (-) Smoker/Length of Time/PPD: quit in 1984 VITALS (most recent, as listed in the electronic record): B/P: 124/80 (07/25/2024 15:13) Pulse: 72 (07/25/2024 15:13) Temperature: 98.3 F [36.8 C] (07/25/2024 15:13) Weight: 218.7 lb [99.20 kg] (09/18/2024 11:00) Height: 68 in [172.7 cm] (07/25/2024 15:13) BMI: BMI: 33.3 PERTINENT LABS: HEMOGLOBIN A1C TREND Collection DT Spec HGBA1c 01/24/2023 10:46 BLOOD 5.0 07/24/2022 10:44 BLOOD 4.8 01/25/2022 08:39 BLOOD 4.8 07/27/2021 11:38 BLOOD 5.0 03/14/2021 09:49 BLOOD 5.3 Current Rx with last BCVA: OD: plano sph 20/20-2 OS: plano sph 20/20 Add: +2.50 DVA ( )sc ( x )cc - phoropter OD: 20/20-2 slow OS: 20/20 Pupils: PERRL (-)APD EOMs: SAFE OU, (-)Pain/Diplopia CVF (facial, peripheral): FTFC OU, (-) gross visual field defects Subjective Refraction: OD: plano sph 20/20-2 OS: plano sph 20 Add: +2.50 20/20 * vision fluctuates, blinking helps to clear letters All the above performed by student, reviewed by attending Anterior segment: Performed by student, repeated by attending Lids: dermatochalasis OU, ptosis OD, 2 papillae RLL 2 mm, 2 papillae RUL 0.5 mm, 1 papillae AMADOR 0.25mm Conj: white and quiet OU Cornea: arcus, 1+ SPK inferiorly, trace guttata OU AC: D&Q OU Angles: 4x4 OU Iris: flat and clear OU, (-) TID OU Tonometry: Performed by student, reviewed by attending [ ] GAT [ x ] iCare [] Perdomo OD 9 mmHg OS 9 mmHg Time: 10:05am Previous IOP: OD 8 mmHg OS 9 mmHg Time: 11:28am Fundus exam: Dilated: 10:08am Dilating Drops: 1GTT 1 % Tropicamide OU & 1GTT 2.5% Phenylephrine OU (Pt. ed. on side effects, dilation warning given [...] safely. Performed by student, repeated by attending Lens: PCIOL well centered OS, PCIOL mildly superiorly decentered, (-) PXE OU Vit: clear OU (-) PVD C/D: 0.2/0.2 OD, 0.15/0.15 OS, (-) nerve pallor Macula: trace ERM OD, flat and clear OS PPole: clear OU A/V: 2/3 Vessels: normal caliber OU Periph: flat and intact (-)holes, tears, detachments 360 OU Assessment/Plan: 1.Dry eyes with rosacea OU; symptomatic - Pt. ed. on todays findings - Ordering Refresh - Ed. pt. to use QID OU even on days when eyes are not feeling dry - Monitor 2.Benign neoplasm of pituitary gland, prolactimona without ocular complications - managed by outisd eprovider - no optic nerve pallor or gross visual field defects - monitor 3.Pseudophakia OU - PCIOLs appear well centered and stable today - Pt. ed. on findings - Monitor 4.Presbyopia OU - Pt. ed. on todays findings - Pt. does not wish to order any duplicate frames at this time - Monitor Return to Clinic 12 months or earlier BEA /johanny/ RUDOLPH VALVERDE OPTOMETRY STUDENT Signed: 10/07/2024 14:43 /johanny/ Grecia Gee OD CHIEF OF OPTOMETRY Cosigned: 10/08/2024 06:52 RUDOLPH VALVERDE [facility]
--- OUTSIDE RECORDS SUMMARY | 2024-10-09 07:00 | XMS_ITS | Encounter Summary ---
Author Name [facility] [place] [facility] [place] Address [address] [place] [id number] Care Team Providers Care Joy Operator Name Role Phone LEN MENDOZA Primary [...] PART B Sep 23, 2014 PART B [id number] [phone] 2 HARMONY MCCALL JR PATIENT MEDICARE (WNR) MEDICARE (M) PART A July 25, 2007 PART A [id number] [phone] HARMONY MCCALL JR PATIENT MEDICARE (WNR) MEDICARE (M) PART B July 25, 2007 PART B [id number] HARMONY MCCALL JR PATIENT MEDICARE (WNR) MEDICARE (M) PART A July 25, 2007 PART A [id number] HARMONY MCCALL JR PATIENT [employer] (OPT/PROF ) [facility] * Jan 24, 2015 [id number] CAROLE MCCALL SPOUSE Selected Encounter This section includes the information on record at [place] for the Encounter. Date/Time Encounter Type Encounter Description Reason Provider Source Oct 09, 2024 11:00 AM HLTH BHV IVNTJ GRP EA ADDL WEIGHT MGMT & MOVE! PROG - GRP ICD-10-CM Z68.31 Body mass index [BMI] 31.0-31.9, adult GORDON PATHAK [facility] Encounter Template Text not used by [place] Assessments - Encounter Diagnoses This section includes the primary and secondary diagnoses documented for the Encounter. Date/Time Primary/Secondary Diagnosis Diagnosis Name Provider Source Oct 09, 2024 04:28 PM PRIMARY Body mass index [BMI] 31.0-31.9, adult GORDON PATHAK Oct 09, 2024 04:28 PM SECONDARY Obesity, class 1 GORDON PATHAK [...] Type Appointme nt Facility Name Oct 23, 2024 11:00 AM AMBULATORY - NONE [facility] Nov 13, 2024 11:00 AM AMBULATORY - NONE [facility] Nov 20, 2024 11:00 AM AMBULATORY - NONE [facility] Feb 24, 2025 10:00 AM AMBULATORY - MEDICINE [place] [facility] [place] [facility] Mar 03, 2025 10:00 AM AMBULATORY - MEDICINE [facility] Vital Signs: All taken on the encounter date This section contains inpatient and outpatient Vital Signs collected on the date of the Encounter. Date/Time Temperature Pulse Blood Pressure Respiratory Rate SP02 Pain Height Weight Body Mass Index Source Oct 09, 2024 12:11 PM 218.9 lb 33 [place] Encounter Notes: All associated encounter notes This section contains the clinical notes associated to the Encounter. Date/Time Encounter Note(s) Provider Source Oct 09, 2024 04:20 PM MOVE NOTE: LOCAL TITLE: WEIGHT MANAGEMENT/MOVE! OUTPATIENT GROUP NOTE STANDARD TITLE: MOVE NOTE DATE OF NOTE: OCT 09, 2024@16:20 ENTRY DATE: OCT 09, 2024@16:20:10 AUTHOR: GORDON PATHAK COSIGNER: URGENCY: STATUS: COMPLETED participated in MOVE! Group Counseling via [facility] on October 09, 2024. The was provided with information on [facility] and has given verbal consent to use group [facility] services for their healthcare. The copy of the Group Telehealth Agreement has been mailed to the Speed. The Veterans location/emergency contact number were confirmed. The Emergency Call Relay Center (E911) was available. The visit was locked for security and privacy. [facility] identified with 2 identifiers: [ ] Full Name [ ] Address Veterans attended the [facility] MOVE! group session on this date. MOVE! is a program designed to provide education about weight management skills to overweight and obese Veterans. Group members attended the Support group on this date and combined to lose 17.0 pounds since their last group attended. Veterans began discussion talking about renewing weight loss with a decrease in caloric intake. Veterans also noticed the need to exercise even on days that are exceedingly hot. Some group members changed their routine so that they exercise earlier in the morning during cooler temperatures. Veterans talked about filling their days with more enjoyable activities as a way to address ongoing stress and the importance of doing such activities every day to deal with the accumulating stress that occurs when it is not addressed. Several members talked about walking, hunting, talking to a friend or counselor as ways to reduce stress and the emotional eating that often accompanies it. Group members shared their smart goals for the next week. Next [facility] MOVE! group meeting will be held on September @ 11:00am. 's reported weight was 218.9 lbs. and lost 2.6 pounds since last group attended. Dx: Obesity Class 1 BMI 31.0-31.9 The session lasted for 1 hour in duration. /johanny/ GORDON PATHAK, Ph.D. CLINICAL PSYCHOLOGIST Signed: 10/09/2024 16:44 Receipt Acknowledged By: 10/13/2024 08:00 /johanny/ SANTIAGO KRAMER STAFF DIETITIAN GORDON PATHAK [facility]
--- OUTSIDE RECORDS SUMMARY | 2024-11-20 09:14 | XMS_ITS | Continuity of Care Document ---
Author Name [facility] Organization [facility] Care Team Providers Care Air Launch Weapons Technician Name Role Phone [facility] Unavailable Unavailable Problems Combined list of problems [...] ICD-10-CM E66.811 Obesity, class 1 Active Diagnosis [facility] Diagnosis: ICD-10-CM Z68.31 Body mass index [BMI] 31.0-31.9, adult Active Diagnosis [facility] Diagnosis: ICD-10-CM L71.8 Other rosacea Active Diagnosis [facility] [place] [facility] Diagnosis: ICD-10-CM E66.3 Overweight Active Diagnosis [facility] Diagnosis: ICD-10-CM Z72.3 Lack of physical exercise Active Diagnosis [facility] [place] [facility] Diagnosis: ICD-10-CM R55 Syncope and collapse Active Diagnosis [facility] Diagnosis: ICD-10-CM Z68.30 Body mass index [BMI] 30.0-30.9, adult Active Diagnosis [facility] Diagnosis: ICD-10-CM Z71.3 Dietary counseling and surveillance Active Diagnosis [facility] Diagnosis: ICD-10-CM G47.33 Obstructive sleep apnea (adult) (pediatric) Active Diagnosis [facility] Diagnosis: ICD-10-CM G47.30 Sleep apnea, unspecified Active Diagnosis [facility] Diagnosis: ICD-10-CM E66.09 Other obesity due to excess calories Active Diagnosis [facility] Diagnosis: ICD-10-CM Z73.3 Stress, not elsewhere classified Active Diagnosis [facility] Diagnosis: ICD-10-CM Z68.29 Body mass index [BMI] 29.0-29.9, adult Active Diagnosis [facility] Diagnosis: ICD-10-CM Z46.0 Encounter for fit/adjst of spectacles and contact lenses Active Diagnosis [facility] Diagnosis: ICD-10-CM K21.9 Gastro-esophageal reflux disease without esophagitis Active Diagnosis [facility] Medications Combined list of outpatient medications from Department of Defense and Veterans Affairs facilities.Medications provided include 1) outpatient medications from the last 15 months, and 2) patient-reported medications. Medication Details Route Status Patient Instructions Prescription Expires Prescription Number Last Dispense Date Ordering Provider Order Date Order Qty Source ASPIRIN 81MG TAB,CHEWABL E CHEW ONE TABLET BY MOUTH DAILY [facility]AL [facility] BROMOCRIPTI NE MESYLATE 0.8MG TAB TAKE THREE TABLETS BY MOUTH ONCE DAILY ORAL ACTIVE BRITT,[facility] CALCIUM 200MG (CA CITRATE-950 MG) TAB TAKE THREE TABLETS BY MOUTH DAILY ORAL ACTIVE ,2016 [facility] CARBOXYMETH YLCELLULOSE NA 0.5% SOLN,OPH INSTILL 1 DROP INTO EACH EYE FOUR TIMES A DAY FOR DRY EYE OPHTHA LMIC ACTIVE 10/08/2025 [id number] 5 Cecily GEE 2024 [facility] CARBOXYMETH YLCELLULOSE NA 0.5% SOLN,OPH INSTILL 1 DROP INTO EACH EYE FOUR TIMES A DAY FOR DRY EYE OPHTHA LMIC DISCONT INUED 09/25/2024 [id number] 4 Cecily GEE 2023 45 [facility] CETIRIZINE HCL 10MG TAB TAKE ONE TABLET BY MOUTH DAILY ORAL ACTIVE [facility] 2016 [facility] CHOLECALCIF FORTINO 25MCG (1,000UNIT) TAB TAKE ONE TABLET BY MOUTH DAILY ORAL ACTIVE [facility] 2016 [facility] LEVOTHYROXI NE NA 125MCG TAB (SYNTHROID) TAKE ONE TABLET BY MOUTH EVERY MORNING 30 MINUTES BEFORE BREAKFAS T ORAL ACTIVE LEN MENDOZA 2023 [facility] [place] POTASSIUM 100MG TAB TAKE ONE TABLET BY MOUTH ONCE DAILY ORAL ACTIVE LEN MENDOZA 2017 [facility] OTHER CAP/TAB TAKE 5 MG BY MOUTH DAILY ORAL ACTIVE [place] BRITT [facility] 2016 [facility] TAMSULOSIN HCL 0.4MG CAP TAKE 1 CAPSULE BY MOUTH ONCE DAILY ORAL ACTIVE LEN MENDOZA 2019 [facility] IELD Immunizations Combined list of available immunizations from the Department of Defense and Veterans Affairs facilities. Immunization Series Date Given Administered By Site Reaction Lot Number CVX Code Drug Veterinary Epidemiologist Status Comments Source INFLUENZA, HIGH-DOSE, TRIVALENT, PF 2023 [facility] RIGHT DELTO ID [id number] 135 complet ed [facility]MINISTE [facility] INFLUENZA, HIGH-DOSE, QUADRIVALENT 11/03/ 2023 [facility]O [facility]AN[facility] LEFT DELTO ID [id number] 197 complet ed ADMINISTE [facility] AT [facility], [facility] COVID-19 (MODERNA), MRNA, LNP-S, PF, 100 MCG/0.5ML DOSE OR 50 MCG/0.25ML DOSE 3 2021 207 complet ed MOD; [id number]; 2 [facility] COVID-19 (MODERNA), MRNA, LNP-S, PF, 100 MCG OR 50 MCG DOSE 3 2020 207 complet ed MOD; [id number]; 2 [facility] [place] INFLUENZA VACCINE, QUADRIVALENT, ADJUVANTED 2020 205 complet ed [facility] COVID-19 (MODERNA), MRNA, LNP-S, PF, 100 MCG/0.5 ML DOSE 2 2020 207 complet ed MOD; [id number]; 1 [facility] [place] COVID-19 (MODERNA), MRNA, LNP-S, PF, 100 MCG/0.5 ML DOSE 1 2020 207 complet ed MOD; [id number]; 1 [facility] [place] [...] Jul 12, 2023 10:12 AM Reporting Lab: [address] [address] Performing Lab: [facility] [address] [facility] BASIC METABOLIC PANEL (non-fast ing) GLUCOSE [MASS/VOLUM E] IN SERUM OR PLASMA 95 mg/dL 65 - 100 07/18 Specimen Type: SERUM No comment entered. Ordering Provider: ORACIO MENDOZA Report Released Date/Time: Jul 12, 2023 10:12 AM Reporting Lab: [facility] [address] Performing Lab: [facility] [address] [facility] TS [facility] BASIC METABOLIC PANEL (non-fast ing) SODIUM [MOLES/VOLU ME] IN SERUM OR PLASMA 142 mmol/L 135 - 145 07/18 Specimen Type: SERUM No comment entered. Ordering Provider: ORACIO MENDOZA Report Released Date/Time: Jul 12, 2023 10:12 AM Reporting Lab: [facility] [address] Performing Lab: [facility]ITALRFLORALA [facility]OR[facility]OSPITALTRN [place] [facility] [address] [facility] [address] [facility]ITAL[facility]N [facility] BASIC METABOLIC PANEL (non-fast ing) POTASSIUM [MOLES/VOLU ME] IN SERUM OR PLASMA 4.7 mmol/L 3.5 - 5.0 07/18 Specimen Type: SERUM No comment entered. Ordering Provider: ORACIO MENDOZA Report Released Date/Time: Jul 12, 2023 10:12 AM Reporting Lab: [facility]ITALRFLORALA MEMORIAL HOSPITALTRN [facility]USE[facility] [address] [facility] [address] Performing Lab: [facility]ITALRNOL[facility]ERYN [facility]ENTERUSE[address] [address] [facility] BASIC METABOLIC PANEL (non-fast ing) CHLORIDE [MOLES/VOLU ME] IN SERUM OR PLASMA 107 mmol/L 100 - 110 07/18 Specimen Type: SERUM No comment entered. Ordering Provider: ORACIO MENDOZA Report Released Date/Time: Jul 12, 2023 10:12 AM Reporting Lab: [facility] [address] [facility] [address] Performing Lab: [facility]ITALRNOL[facility]ERYN [facility]USE[facility] [address] [facility] [address] [facility] BASIC METABOLIC PANEL (non-fast ing) CARBON DIOXIDE, TOTAL [MOLES/VOLU ME] IN SERUM OR PLASMA 28 meq/L 20 - 30 07/18 Specimen Type: SERUM No comment entered. Ordering Provider: ORACIO MENDOZA Report Released Date/Time: Jul 12, 2023 10:12 AM Reporting Lab: [facility]ITALRFLORALA MEMORIAL HOSPITALTRN [facility]USE[facility] [address] [facility] [address] Performing Lab: [facility]ITALRNOL[facility]ERYN [facility]ENTERUSE[address] [address] [facility] BASIC METABOLIC PANEL (non-fast ing) CREATININE [MASS/VOLUM E] IN SERUM OR PLASMA 0.90 mg/dL 0.50 - 1.40 07/18 Specimen Type: SERUM No comment entered. Ordering Provider: ORACIO MENDOZA Report Released Date/Time: Jul 12, 2023 10:12 AM Reporting Lab: [facility] [place] [facility] [address] [facility] [address] Performing Lab: [facility] [place] [facility] [address] [facility] [address] [facility] [place] [facility] BASIC METABOLIC PANEL (non-fast ing) GLOMERULAR FILTRATION RATE/1.73 SQ M.PREDICTED [VOLUME RATE/AREA] IN SERUM, PLASMA OR BLOOD BY CREATININE- BASED FORMULA (CKD-EPI 2020) 86 mL/min 60 07/18 Specimen Type: SERUM No comment entered. Ordering Provider: ORACIO MENDOZA Report Released Date/Time: Jul 12, 2023 10:12 AM Reporting Lab: [facility] [place] [address] [address] Performing Lab: [facility] [place] [facility] [address] [facility] [address] [facility] [place] [facility] CBC LEUKOCYTES [#/VOLUME] IN BLOOD BY AUTOMATED COUNT 7.33 10*3/u L 4.50 - 11.00 07/18 Specimen Type: BLOOD No comment entered. Ordering Provider: ORACIO MENDOZA Report Released Date/Time: Jul 12, 2023 10:12 AM Reporting Lab: [facility] [place] [address] [address] Performing Lab: [facility] [place] [facility] [address] [facility] [address] [facility] [place] [facility] CBC ERYTHROCYTE S [#/VOLUME] IN BLOOD BY AUTOMATED COUNT 4.94 10*6/u L 4.23 - 5.66 07/18 Specimen Type: BLOOD No comment entered. Ordering Provider: ORACIO MENDOZA Report Released Date/Time: Jul 12, 2023 10:12 AM Reporting Lab: [facility] [place] [address] [address] Performing Lab: [facility] [place] [address] [address] [facility] [place] [facility] CBC HEMOGLOBIN [MASS/VOLUM E] IN BLOOD 15.1 g/dL 12.8 - 17 07/18 Specimen Type: BLOOD No comment entered. Ordering Provider: ORACIO MENDOZA Report Released Date/Time: Jul 12, 2023 10:12 AM Reporting Lab: [facility] [place] [facility] [address] [facility] [address] Performing Lab: [facility] [place] [facility] [address] [facility] [address] [facility] [place] [facility] CBC HEMATOCRIT [VOLUME FRACTION] OF BLOOD BY AUTOMATED COUNT 46.2 39.2 - 50.4 07/18 Specimen Type: BLOOD No comment entered. Ordering Provider: ORACIO MENDOZA Report Released Date/Time: Jul 12, 2023 10:12 AM Reporting Lab: [facility] [place] [address] [address] Performing Lab: [facility] [place] [address] [address] [facility] [place] [facility] CBC MCV [ENTITIC VOLUME] BY AUTOMATED COUNT 93.5 fL 82 - 99 07/18 Specimen Type: BLOOD No comment entered. Ordering Provider: ORACIO MENDOZA Report Released Date/Time: Jul 12, 2023 10:12 AM Reporting Lab: [facility] [place] [address] [address] Performing Lab: [facility] [place] [address] [address] [facility] [place] [facility] CBC MCHC [MASS/VOLUM E] BY AUTOMATED COUNT 32.7 g/dL 30.8 - 35.1 07/18 Specimen Type: BLOOD No comment entered. Ordering Provider: ORACIO MENDOZA Report Released Date/Time: Jul 12, 2023 10:12 AM Reporting Lab: [facility] [place] [address] [address] Performing Lab: [facility] [place] [facility] [address] [facility] [address] [facility] [place] [facility] CBC PLATELETS [#/VOLUME] IN BLOOD BY AUTOMATED COUNT 181 10*3/u L 140 - 360 07/18 Specimen Type: BLOOD No comment entered. Ordering Provider: ORACIO MENDOZA Report Released Date/Time: Jul 12, 2023 10:12 AM Reporting Lab: [facility] [place] [facility] [address] [facility] [address] Performing Lab: [facility] [place] [facility] [address] [facility] [address] [facility] [place] [facility] CBC ERYTHROCYTE DISTRIBUTIO N WIDTH [RATIO] BY AUTOMATED COUNT 13.2 12.0 - 16.0 07/18 Specimen Type: BLOOD No comment entered. Ordering Provider: ORACIO MENDOZA Report Released Date/Time: Jul 12, 2023 10:12 AM Reporting Lab: [facility] [place] [facility] [address] [facility] [address] Performing Lab: [facility] [place] [facility] [address] [facility] [address] [facility] [place] [facility] CBC MCH [ENTITIC MASS] BY AUTOMATED COUNT 30.6 pg 26.2 - 32.6 07/18 Specimen Type: BLOOD No comment entered. Ordering Provider: ORACIO MENDOZA Report Released Date/Time: Jul 12, 2023 10:12 AM Reporting Lab: [facility] [place] [facility] [address] [facility] [address] Performing Lab: [facility] [place] [facility] [address] [place] [address] [facility] [place] [facility] TSH THYROTROPIN [UNITS/VOLU ME] IN SERUM OR PLASMA 0.67 u[IU]/ mL 0.35 - 5.00 07/18 Specimen Type: SERUM No comment entered. Ordering Provider: ORACIO MENDOZA Report Released Date/Time: Jul 12, 2023 10:12 AM Reporting Lab: [facility] [place] [facility] [address] [facility] [address] Performing Lab: [facility] [place] [facility] [address] [facility] [address] [facility] [place] [facility] LIVER FUNCTION PROTEIN [MASS/VOLUM E] IN SERUM OR PLASMA 6.7 g/dL 6.0 - 8.3 07/18 Specimen Type: SERUM No comment entered. Ordering Provider: ORACIO MENDOZA Report Released Date/Time: Jul 12, 2023 10:12 AM Reporting Lab: [facility] [place] [facility] [address] [facility] [address] Performing Lab: [facility] [place] [facility] [address] [facility] [address] [facility] [place] [facility] LIVER FUNCTION ALBUMIN [MASS/VOLUM E] IN SERUM OR PLASMA 3.8 g/dL 3.5 - 5.0 07/18 Specimen Type: SERUM No comment entered. Ordering Provider: ORACIO MENDOZA Report Released Date/Time: Jul 12, 2023 10:12 AM Reporting Lab: [facility] [place] [facility] [address] [facility] [address] Performing Lab: [facility] [place] [facility] [address] [facility] [address] [facility] W[facility] [place] [facility] LIVER FUNCTION ALKALINE PHOSPHATASE [ENZYMATIC ACTIVITY/VO LUME] IN SERUM OR PLASMA 55 U/L 40 - 150 07/18 Specimen Type: SERUM No comment entered. Ordering Provider: ORACIO MENDOZA Report Released Date/Time: Jul 12, 2023 10:12 AM Reporting Lab: [facility] [place] [facility] [address] [facility] [address] Performing Lab: [facility] [place] [facility] [address] [facility] [address] [facility] [place] [facility] LIVER FUNCTION ASPARTATE AMINOTRANSF ERASE [ENZYMATIC ACTIVITY/VO LUME] IN SERUM OR PLASMA 26 U/L 5 - 34 07/18 Specimen Type: SERUM No comment entered. Ordering Provider: ORACIO MENDOZA Report Released Date/Time: Jul 12, 2023 10:12 AM Reporting Lab: [facility] [place] [facility] [address] [facility] [address] Performing Lab: [facility] [place] [facility] [address] [facility] [address] [facility] [place] [facility] LIVER FUNCTION ALANINE AMINOTRANSF ERASE [ENZYMATIC ACTIVITY/VO LUME] IN SERUM OR PLASMA 26 U/L 07/18 Specimen Type: SERUM No comment entered. Ordering Provider: ORACIO MENDOZA Report Released Date/Time: Jul 12, 2023 10:12 AM Reporting Lab: [facility] [place] [facility] [address] [facility] [address] Performing Lab: [facility] [place] [facility] [address] [facility] [address] [facility] [place] [facility] LIVER FUNCTION BILIRUBIN.T OTAL [MASS/VOLUM E] IN SERUM OR PLASMA 0.6 mg/dL 0.2 - 1.2 07/18 Specimen Type: SERUM No comment entered. Ordering Provider: ORACIO MENDOZA Report Released Date/Time: Jul 12, 2023 10:12 AM Reporting Lab: [facility] [place] [facility] [address] [facility] [address] Performing Lab: [facility] [place] [facility] [address] [facility] [address] [facility] [place] [facility] LIPID PANEL, NON FASTING CHOLESTEROL [MASS/VOLUM E] IN SERUM OR PLASMA 119 mg/dL 07/18 Specimen Type: SERUM No comment entered. Ordering Provider: ORACIO MENDOZA Report Released Date/Time: Jul 12, 2023 10:12 AM Reporting Lab: [facility] [place] [facility] [address] [facility] [address] Performing Lab: [facility] [place] [facility] [address] [facility] [address] [facility] [place] [facility] LIPID PANEL, NON FASTING TRIGLYCERID E [MASS/VOLUM E] IN SERUM OR PLASMA 48 mg/dL 0 - 150 07/18 Specimen Type: SERUM No comment entered. Ordering Provider: ORACIO MENDOZA Report Released Date/Time: Jul 12, 2023 10:12 AM Reporting Lab: [facility] [place] [facility] [address] [facility] [address] Performing Lab: [facility] [address] [facility] [address] [facility] LIPID PANEL, NON FASTING CHOLESTEROL IN LDL [MASS/VOLUM E] IN SERUM OR PLASMA BY CALCULATION 63 mg/dL 0 - 129 07/18 Specimen Type: SERUM No comment entered. Ordering Provider: ORACIO MENDOZA Report Released Date/Time: Jul 12, 2023 10:12 AM Reporting Lab: [facility] [address] [facility] [address] Performing Lab: [facility] [address] [address] [facility]RL TRN [facility] LIPID PANEL, NON FASTING CHOLESTEROL .TOTAL/CHOL ESTEROL IN HDL [MASS RATIO] IN SERUM OR PLASMA 2.6 07/18 Specimen Type: SERUM No comment entered. Ordering Provider: ORACIO MENDOZA Report Released Date/Time: Jul 12, 2023 10:12 AM Reporting Lab: [facility] [address] [facility] [address] Performing Lab: [facility] [address] [facility] [address] [facility]RL WSTRN [facility] LIPID PANEL, NON FASTING CHOLESTEROL IN HDL [MASS/VOLUM E] IN SERUM OR PLASMA 46 mg/dL 40 - 60 07/18 Specimen Type: SERUM No comment entered. Ordering Provider: ORACIO MENDOZA Report Released Date/Time: Jul 12, 2023 10:12 AM Reporting Lab: [facility] [place] [facility] [address] [facility] [address] Performing Lab: [facility] [address] [facility] [address] [facility] TRN [place] [facility] THYROID T4 FREE(FT4) THYROXINE (T4) FREE [MASS/VOLUM E] IN SERUM OR PLASMA 1.30 ng/dL 0.6 - 1.6 01/24 Specimen Type: SERUM No comment entered. Ordering Provider: ORACIO MENDOZA Report Released Date/Time: Jan 15, 2023 04:07 PM Reporting Lab: [facility] TRN [place] [facility] [address] [facility] [address] Performing Lab: [facility]RL WSTRN [place] [facility] [address] [facility] [address] [facility]ITALRFLORAL[facility]OR[facility]ITALTRN M[facility] TSH THYROTROPIN [UNITS/VOLU ME] IN SERUM OR PLASMA 0.36 u[IU]/ mL 0.35 - 5.00 01/24 Specimen Type: SERUM No comment entered. Ordering Provider: ORACIO MENDOZA Report Released Date/Time: Jan 15, 2023 04:07 PM Reporting Lab: [facility]RL TRN [place] [facility] [address] [facility] [address] Performing Lab: [facility]ITALRL TRN [facility] [address] [facility] [address] [facility]RNOL[facility] MON[facility]OMERYN M[facility] CBC LEUKOCYTES [#/VOLUME] IN BLOOD BY AUTOMATED COUNT 6.50 10*3/u L 4.50 - 11.00 01/24 Specimen Type: BLOOD No comment entered. Ordering Provider: ORACIO MENDOZA Report Released Date/Time: Jan 15, 2023 04:07 PM Reporting Lab: [facility] [place] [facility] [address] [facility] [address] Performing Lab: [facility] [address] [facility] [address] [facility] [place] [facility] CBC ERYTHROCYTE S [#/VOLUME] IN BLOOD BY AUTOMATED COUNT 4.73 10*6/u L 4.23 - 5.66 01/24 Specimen Type: BLOOD No comment entered. Ordering Provider: ORACIO MENDOZA Report Released Date/Time: Jan 15, 2023 04:07 PM Reporting Lab: [facility] [place] [facility] [address] [facility] [address] Performing Lab: [facility] [place] [facility] [address] [facility] [address] [facility] [place] [facility] CBC HEMOGLOBIN [MASS/VOLUM E] IN BLOOD 14.7 g/dL 12.8 - 17 01/24 Specimen Type: BLOOD No comment entered. Ordering Provider: ORACIO MENDOZA Report Released Date/Time: Jan 15, 2023 04:07 PM Reporting Lab: [facility] [place] [facility] [address] [facility] [address] Performing Lab: [facility] [place] [facility] [address] [facility] [address] [facility] [place] [facility] CBC HEMATOCRIT [VOLUME FRACTION] OF BLOOD BY AUTOMATED COUNT 44.2 39.2 - 50.4 01/24 Specimen Type: BLOOD No comment entered. Ordering Provider: ORACIO MENDOZA Report Released Date/Time: Jan 15, 2023 04:07 PM Reporting Lab: [facility] [place] [facility] [address] [facility] [address] Performing Lab: [facility] [place] [facility] [address] [facility] [address] [facility] [place] [facility] CBC MCV [ENTITIC VOLUME] BY AUTOMATED COUNT 93.4 fL 82 - 99 01/24 Specimen Type: BLOOD No comment entered. Ordering Provider: ORACIO MENDOZA Report Released Date/Time: Jan 15, 2023 04:07 PM Reporting Lab: [facility] [place] [facility] [address] [facility] [facility] [facility] [address] Performing Lab: [facility] [place] [facility] [address] [facility] [address] [facility] [facility] CBC MCHC [MASS/VOLUM E] BY AUTOMATED COUNT 33.3 g/dL 30.8 - 35.1 01/24 Specimen Type: BLOOD No comment entered. Ordering Provider: ORACIO MENDOZA Report Released Date/Time: Jan 15, 2023 04:07 PM Reporting Lab: [facility] [place] [facility] [address] [facility] [address] Performing Lab: [facility] [place] [facility] [address] [facility] [address] [facility] CBC PLATELETS [#/VOLUME] IN BLOOD BY AUTOMATED COUNT 194 10*3/u L 140 - 360 01/24 Specimen Type: BLOOD No comment entered. Ordering Provider: ORACIO MENDOZA Report Released Date/Time: Jan 15, 2023 04:07 PM Reporting Lab: [facility] [place] [facility] [address] [facility] [address] Performing Lab: [facility] [place] [facility] [address] [facility] [address] [facility] [facility] CBC ERYTHROCYTE DISTRIBUTIO N WIDTH [RATIO] BY AUTOMATED COUNT 13.0 12.0 - 16.0 01/24 Specimen Type: BLOOD No comment entered. Ordering Provider: ORACIO MENDOZA Report Released Date/Time: Jan 15, 2023 04:07 PM Reporting Lab: [facility] [place] [facility] [address] [facility] [address] Performing Lab: [facility] [place] [facility] [address] [facility] [address] [facility] CBC MCH [ENTITIC MASS] BY AUTOMATED COUNT 31.1 pg 26.2 - 32.6 01/24 Specimen Type: BLOOD No comment entered. Ordering Provider: ORACIO MENDOZA Report Released Date/Time: Jan 15, 2023 04:07 PM Reporting Lab: [facility] [place] [facility] [address] [facility] [address] Performing Lab: [facility] [place] [facility] [address] [facility] [address] [facility] [place] [facility] VITAMIN D (25-OH) 25-HYDROXYV ITAMIN D3 [MASS/VOLUM E] IN SERUM OR PLASMA 46 ng/mL 20 - 50 01/24 Specimen Type: SERUM No comment entered. Ordering Provider: ORACIO MENDOZA Report Released Date/Time: Jan 15, 2023 04:07 PM Reporting Lab: [facility] [place] [facility] [address] [facility] [address] Performing Lab: [facility] [place] [facility] [address] [facility] [address] [facility] [facility] BASIC METABOLIC PANEL (fasting) UREA NITROGEN [MASS/VOLUM E] IN SERUM OR PLASMA 17 mg/dL 7 - 25 01/24 Specimen Type: SERUM No comment entered. Ordering Provider: ORACIO MENDOZA Report Released Date/Time: Jan 15, 2023 04:07 PM Reporting Lab: [facility] [place] [facility] [address] [facility] [address] Performing Lab: [facility] [place] [address] [address] [facility] [place] [facility] BASIC METABOLIC PANEL (fasting) GLUCOSE [MASS/VOLUM E] IN SERUM OR PLASMA 94 mg/dL 65 - 100 01/24 Specimen Type: SERUM No comment entered. Ordering Provider: ORACIO MENDOZA Report Released Date/Time: Jan 15, 2023 04:07 PM Reporting Lab: [facility] [place] [facility] [address] [facility] [address] Performing Lab: [facility] [place] [address] [address] [facility] [facility] BASIC METABOLIC PANEL (fasting) SODIUM [MOLES/VOLU ME] IN SERUM OR PLASMA 141 mmol/L 135 - 145 01/24 Specimen Type: SERUM No comment entered. Ordering Provider: ORACIO MENDOZA Report Released Date/Time: Jan 15, 2023 04:07 PM Reporting Lab: [facility] [place] [facility] [address] [facility] [address] Performing Lab: [facility] [place] [address] [address] [facility] BASIC METABOLIC PANEL (fasting) POTASSIUM [MOLES/VOLU ME] IN SERUM OR PLASMA 3.8 mmol/L 3.5 - 5.0 01/24 Specimen Type: SERUM No comment entered. Ordering Provider: ORACIO MENDOZA Report Released Date/Time: Jan 15, 2023 04:07 PM Reporting Lab: [facility] [address] Performing Lab: [facility]ITALRFLORALA [facility]ITALTRN [facility]USE[facility] [address] [facility] [address] [facility] BASIC METABOLIC PANEL (fasting) CHLORIDE [MOLES/VOLU ME] IN SERUM OR PLASMA 107 mmol/L 100 - 110 01/24 Specimen Type: SERUM No comment entered. Ordering Provider: ORACIO MENDOZA Report Released Date/Time: Jan 15, 2023 04:07 PM Reporting Lab: [facility] [address] [address] Performing Lab: [facility]ITAL[facility]N [facility]USE[address] [address] [facility] BASIC METABOLIC PANEL (fasting) CARBON DIOXIDE, TOTAL [MOLES/VOLU ME] IN SERUM OR PLASMA 27 meq/L 20 - 30 01/24 Specimen Type: SERUM No comment entered. Ordering Provider: ORACIO MENDOZA Report Released Date/Time: Jan 15, 2023 04:07 PM Reporting Lab: [facility]ITAL[facility]ENTERUSE[address] [address] Performing Lab: [facility]ITALRFLORALA MEMOR[facility] HOSPITALTRN [facility]USE[address] [address] [facility] BASIC METABOLIC PANEL (fasting) CREATININE [MASS/VOLUM E] IN SERUM OR PLASMA 0.90 mg/dL 0.50 - 1.40 01/24 Specimen Type: SERUM No comment entered. Ordering Provider: ORACIO MENDOZA Report Released Date/Time: Jan 15, 2023 04:07 PM Reporting Lab: [facility]ITAL[facility]N [facility]USE[address] [address] Performing Lab: [facility]RN [facility]USE[facility] [address] [facility] [address] [facility] BASIC METABOLIC PANEL (fasting) GLOMERULAR FILTRATION RATE/1.73 SQ M.PREDICTED [VOLUME RATE/AREA] IN SERUM, PLASMA OR BLOOD BY CREATININE- BASED FORMULA (CKD-EPI 2020) 86 mL/min 60 01/24 Specimen Type: SERUM No comment entered. Ordering Provider: ORACIO MENDOZA Report Released Date/Time: Jan 15, 2023 04:07 PM Reporting Lab: [facility] [address] [facility] [address] Performing Lab: [facility]USE[facility] [address] [facility] [address] [facility] Vital Signs Combined list of inpatient and outpatient Vital Signs from Department of Defense and Veterans Affairs, ranging from 12 months to all on record, depending upon the facility. Vital Sign Value Date Comments Source WEIGHT 222 11/13/2024 11:33:15 [place] BMI 34 kg/m2 11/13/2024 11:33:15 [place] WEIGHT 218.9 10/09/2024 12:11:05 [place] BMI 33 kg/m2 10/09/2024 12:11:05 [place] WEIGHT 221.5 10/02/2024 11:00:00 [place] BMI 34 kg/m2 10/02/2024 11:00:00 [place] WEIGHT 218.7 09/18/2024 11:00:00 [place] BMI 33 kg/m2 09/18/2024 11:00:00 [place] WEIGHT 217.4 08/28/2024 11:00:00 [place] BMI 33 kg/m2 08/28/2024 11:00:00 [place] Encounters Combined list of: 1) Encounters from Department of Veterans Affairs facilities going backup to the last 18 months, not all VA inpatient encounters are included; 2) Encounters from the Department of Defense facilities going backup to 280 months. Location Location Details Encounter Type Encounter Number Reason For Visit Attending Provider ADM Date DC Date Status Disposition Source [place] [facility] 2-10 [id number] Diagnos is: ICD-10- CM E66.09 Other obesity due to excess calorie EVAN Qureshi P [place] [facility] NOC GROUP [id number] Diagnos is: ICD-10- CM Z71.3 Dietary peer financial counselor ing and surveil RAKESH Murphy [place] 05/28 [facility]-10 [id number] Diagnos is: ICD-10- CM E66.09 Other obesity due to excess calorie EVAN Qureshi P 05/30 [place] [facility] 2-10 [id number] Diagnos is: ICD-10- CM E66.09 Other obesity due to excess calorie EVAN Qureshi P 06/06 [place] [facility] PT EDUCATION NOC GROUP [id number] Diagnos is: ICD-10- CM Z71.3 Dietary peer financial counselor ing and surveil RAKESH Murphy 06/11 [facility] [place] [facility] LD WEIGHT MGMT CLASS [id number] Diagnos is: ICD-10- CM E66.3 Overwei ght GORDON PATHAK 06/13 [place] [facility] LD WEIGHT MGMT CLASS [id number] Diagnos is: ICD-10- CM Z68.29 Body mass index [BMI] 29.0-29 .9, adult GORDON PATHAK 06/20 [place] [facility]UC[facility]OC GROUP [id number] Diagnos is: ICD-10- CM Z71.3 Dietary peer financial counselor ing and surveil RAKESH Murphy [place] 06/25 [facility] [place] [facility] WEIGHT MGMT CLASS [id number] Diagnos is: ICD-10- CM Z68.29 Body mass index [BMI] 29.0-29 .9, adult GORDON PATHAK 06[facility]27 [facility] 2-10 [id number] [id number] Diagnos is: ICD-10- CM E66.3 Overwei elizabethEVAN [place] [facility] CLASS [id number] Diagnos is: ICD-10- CM Z68.29 Body mass index [BMI] 29.0-29 .9, adult GORDON PATHAK 07/18 [place] [facility] OFFICE O/P EST MOD 30 MIN [id number] Diagnos is: ICD-10- CM K21.9 Gastro- esophag eal reflux disease without esophag itGuzman Mcnally 07/22 [facility] [place] [facility] [place] [facility] Outpatient Encounter [id number] 07/23 [facility] [place] [facility]HAVE [facility] 2-10 [id number] Diagnos is: ICD-10- CM E66.3 Overwei EVAN Estevez P 07/25 [place] [facility] [place] [facility] PT EDUCATION NOC GROUP [id number] Diagnos is: ICD-10- CM Z71.3 Dietary peer financial counselor ing and surveil RAKESH Murphy 07/30 [facility] [place] [facility] LD GROUP BEHAVE COUNS 2-10 [id number] [id number] Diagnos is: ICD-10- CM E66.3 Overi elizabethEVAN [place] P 08/01 [place] [facility] LD GROUP BEHAVE COUNS 2-10 [id number] [id number] Diagnos is: ICD-10- CM E66.3 EVAN Johnson P 08/08 [place] [facility] EXERCISE CLASS [id number] Diagnos is: ICD-10- CM 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.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 Cecily ONEILL SHANICE 08/21 [facility] [place] [facility] CLASS [id number] [id number] Diagnos is: ICD-10- CM Z68.29 Body mass index [BMI] 29.0-29 .9, adult GORDON PATHAK 08/22 [place] [facility] EXERCISE CLASS [id number] Diagnos is: ICD-10- CM Z72.3 Lack of physica l exercis e LARISA COATES 08/23 [facility] [place] EXERCISE CLASS [id number] Diagnos is: ICD-10- CM Z72.3 Lack of physica l exercis Cecily LangeIN 08/26 [facility] [place] [facility] MGMT CLASS [id number] Diagnos is: ICD-10- CM Z68.29 Body mass index [BMI] 29.0-29 .9, adult GORDON PATHAK 08/29 [place] [facility] EXERCISE CLASS [id number] Diagnos is: ICD-10- CM Z72.3 Lack of physica l exercis e CRISTAL LAZCANO 08/30 [facility] [place] EXERCISE CLASS [id number] Diagnos is: ICD-10- CM Z72.3 Lack of physica l exercis Cecily Lange 09/04 [facility] [place] [facility] WEIGHT MGMT CLASS [id number] [id number] Diagnos is: ICD-10- CM E66.09 Other obesity due to excess calorie s GORDON PATHAK Hellen 09/05 [facility] [place] [facility] [place] 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0-30 .9, adult GORDON PATHAK 09/19 [facility] [place] [facility] [place] [facility] EXERCISE CLASS [id number] Diagnos is: ICD-10- CM Z72.3 Lack of physica l exercis LARISA Hadley 09/20 [facility] [place] [facility] EXERCISE CLASS [id number] Diagnos is: ICD-10- CM Z72.3 Lack of physica l exercis e CRISTAL LAZCANO 09/23 [facility] [place] 1/ [id number] [id number] Diagnos is: ICD-10- CM L71.8 Other rosacea EVAN GEE 09/24 [facility] FIT SPECTACLES MONOFOCAL [id number] [id number] Diagnos is: ICD-10- CM Z46.0 Encount er for fit/adj st of spectac les and contact lenses EVAN GEE 09/24 [facility] EXERCISE CLASS [id number] Diagnos is: ICD-10- CM Z72.3 Lack of physica l exercis Cecily Lange 09/25 [facility] EXERCISE CLASS [id number] Diagnos is: ICD-10- CM Z72.3 Lack of physica l exercis e CRISTAL LAZCANO M 09/30 [facility] [place] [facility] GROUP BEHAVE COUNS 2-10 [id number] [id number] Diagnos is: ICD-10- CM E66.09 Other obesity due to excess calorie s EVAN KRAMER JOSH P 10/03 [place] [facility] WEIGHT MGMT CLASS [id number] [id number] Diagnos is: ICD-10- CM Z68.29 Body mass index [BMI] 29.0-29 .9, adult GORDON PATHAK 10/10 [place] [facility] EXERCISE CLASS [id number] Diagnos is: ICD-10- CM Z72.3 Lack of physica l exercis e CRISTAL LAZCANO M 10/14 [facility] EXERCISE CLASS [id number] Diagnos is: ICD-10- CM Z72.3 Lack of physica l exercis Cecily Lange 10/16 [facility] [place] [facility] GROUP BEHAVE COUNS 2-10 [id number] [id number] Diagnos is: ICD-10- CM E66.09 Other obesity due to excess calorie s EVAN KRAMER P 10/17 [place] [facility] EXERCISE CLASS [id number] [id number] Diagnos is: ICD-10- CM Z72.3 Lack of physica l exercis e CRISTAL LAZCANO M 10/18 [facility] EXERCISE CLASS [id number] 1. Diagnos is: ICD-10- CM Z72.3 Lack of physica l exercis e CRISTAL LAZCANO M 10/21 [facility] Outpatient Encounter [id number] Guzman MENDOZA 10/22 [facility] POS AIRWAY PRESSURE FILTER [id number] Diagnos is: ICD-10- CM G47.30 Sleep apnea, unspeci fied ST AMANT,KATHARINA E P 10/22 [facility] EXERCISE CLASS [id number] Diagnos is: ICD-10- CM Z72.3 Lack of physica l exercis Cecily Lange 10/23 [facility] [place] [place] [facility] LD HLTH BHV IVNTJ GRP EA ADDL [id number] 1BY. [id number] Diagnos is: ICD-10- CM Z68.30 Body mass index [BMI] 30.0-30 .9, adult GORDON PATHAK 10/24 [place] [facility] UNLISTED PHYSCL MED/[place]X [id number] [id number] Diagnos is: ICD-10- CM Z72.3 Lack of physica l exercis e LARISA COATES 10/25 [facility] EXERCISE CLASS [id number] 1. Diagnos is: ICD-10- CM Z72.3 Lack of physica l exercis e CRISTAL LAZCANO 10/25 [facility] Out[facility] Encounter [id number] 10/25 [facility] Out[facility] Encounter [id number] 10/25 [facility] EXERCISE CLASS [id number] Diagnos is: ICD-10- CM Z72.3 Lack of physica l exercis e CRISTAL LAZCANO M 10/28 [facility] COLLJ & INTERPJ DATA EA 30 D [id number] [id number] Diagnos is: ICD-10- CM G47.30 Sleep apnea, unspeci fied ST AMANT,KATHARINA E P 10/29 [facility] EXERCISE CLASS [id number] Diagnos is: ICD-10- CM Z72.3 Lack of physica l exercis e Cecily ONEILL 10/30 [facility] [place] [place] [facility] BHV IVNTJ GRP EA ADDL [id number] Diagnos is: ICD-10- CM Z68.30 Body mass index [BMI] 30.0-30 .9, adult GORDON PATHAK 10/31 [facility] [place] [facility] EXERCISE CLASS [id number] [id number] Diagnos is: ICD-10- CM Z72.3 Lack of physica l exercis e CRISTAL LAZCANOCourtney M 11/01 [facility] EXERCISE CLASS [id number] Diagnos is: ICD-10- CM Z72.3 Lack of physica l exercis e CRISTAL LAZCANO M 11/04 [facility] EXERCISE CLASS [id number] Diagnos is: ICD-10- CM Z72.3 Lack of physica l exercis e Cecily ONEILL SHANICE 11/06 [facility] [place] [facility] [place] [facility] BEHAVE COUNS 2-10 [id number] [id number] Diagnos is: ICD-10- CM E66.09 Other obesity due to excess calorie s EVAN KRAMER [place] [facility] EXERCISE CLASS [id number] [id number] Diagnos is: ICD-10- CM Z72.3 Lack of physica l exercis Cecily Lange SHANICE 11/13 [facility] [place] [facility] BHV IVNTJ GRP EA ADDL [id number] Diagnos is: ICD-10- CM Z68.30 Body mass index [BMI] 30.0-30 .9, adult GORDON PATHAK 11/14 [place] [facility] EXERCISE CLASS [id number] Diagnos is: ICD-10- CM Z72.3 Lack of physica l exercis e Cecily ONEILL SHANICE 11/15 [facility] [place] [facility] EXERCISE CLASS [id number] Diagnos is: ICD-10- CM Z72.3 Lack of physica l exercis e CRISTAL LAZCANO M 11/18 [facility] EXERCISE CLASS [id number] 1. 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 Diagnos is: ICD-10- CM Z72.3 Lack of physica l exercis e CRISTAL LAZCANO M 12/02 [facility] [place] [facility] COLLJ & INTERPJ DATA EA 30 D [id number] Diagnos is: ICD-10- CM G47.30 Sleep apnea, unspeci fied KATHARINA PUCKETT E P 12/02 [place] [facility] EXERCISE CLASS 72899-6.63 1. Diagnos is: ICD-10- CM Z72.3 Lack of physica l exercis e CRISTAL LAZCANO M 12/04 [facility] [place] [facility] GROUP BEHAVE COUNS 2-10 52431-3.63 [id number] Diagnos is: ICD-10- CM E66.09 Other obesity due to excess calorie s EVAN KRAMER P [place] [facility] [place] PT EDUCATION NOC GROUP 25975-7.63 1. Diagnos is: ICD-10- CM Z71.3 Dietary peer financial counselor ing and surveil RAKESH Murphy 12/10 [facility] [place] [facility] [place] [facility] HLTH V IVNTJ GRP EA ADDL [id number] 1. Diagnos is: ICD-10- CM Z73.3 Stress, not elsewhe re classif ied JOSE ALBERTO HANLEY RA 12/10 [facility] [place] [facility] HLTH BHV IVNTJ GRP EA ADDL [id number] Diagnos is: ICD-10- CM Z68.30 Body mass index [BMI] 30.0-30 .9, adult GORDON PATHAK 12/12 [place] [facility] EXERCISE CLASS [id number] Diagnos is: ICD-10- CM Z72.3 Lack of physica l exercis e CRISTAL LAZCANO M 12/16 [facility] [place] [facility] BHV IVNTJ GRP EA ADDL [id number] Diagnos is: ICD-10- CM Z68.30 Body mass index [BMI] 30.0-30 .9, adult GORDON PATHAK 12/19 [place] [facility] PT EDUCATION NOC GROUP 98294-6.63 1. Diagnos is: ICD-10- CM Z71.3 Dietary peer financial counselor ing and surveil RAKESH Murphy CHENTE 12/24 [facility] [place] [facility] GROUP BEHAVE COUNS 2-10 22660-4.63 [id number] Diagnos is: ICD-10- CM E66.09 Other obesity due to excess calorie EVAN Qureshi LATOSHAEL P 12/26 [place] [facility] BHV IVNTJ GRP EA ADDL [id number] [id number] Diagnos is: ICD-10- CM Z68.30 Body mass index [BMI] 30.0-30 .9, adult GODRON PATHAK 01/02 [place] [facility] PT EDUCATION NOC GROUP 76252-7.63 1. Diagnos is: ICD-10- CM Z71.3 Dietary peer financial counselor ing and surveil RAKESH Murphy CHENTE 01/07 [facility] [place] [facility] GROUP BEHAVE COUNS 2-10 16683-0.63 1BY. 38 Diagnos is: ICD-10- CM E66.09 Other obesity due to excess calorie EVAN Qureshi CHABOBBY P 01/09 [place] [facility] IVNTJ GRP EA ADDL 91035-7.63 [id number] Diagnos is: ICD-10- CM Z68.30 Body mass index [BMI] 30.0-30 .9, adult GORDON PATHAK 01/16 [place] [facility] OFFICE O/P EST MOD 30 MIN 52621-7.63 1. Diagnos is: ICD-10- CM G47.30 Sleep apnea, unspeci juvenaled Guzman MENDOZA 01/20 [facility] [place] [place] [facility] OFFICE O/P EST MOD 30 MIN [id number] [id number] Diagnos is: ICD-10- CM G47.33 Obstruc tive sleep apnea (adult) ([facility]) ARELIS NUNO 01/21 [facility] [facility] Outpatient Encounter [id number] Diagnos is: ICD-10- CM G47.33 Obstruc tive sleep apnea (adult) ([facility]) ARELIS NUNO 01/21 [facility] [place] [facility] [place] GROUP BEHAVE COUNS 2-10 [id number] 1BY. 47 Diagnos is: ICD-10- CM E66.811 Obesity , class 1 NIA,SC CHAEL P 01/23 [facility]-10 [id number] Diagnos is: ICD-10- CM E66.811 Obesity , class 1 NIA,SC CHAEL P 01/30 [facility] [place] [facility]P EA ADDL [id number] Diagnos is: ICD-10- CM Z68.30 Body mass index [BMI] 30.0-30 .9, adult GORDON PATHAK 02/06 [facility] IVNTJ GRP EA ADDL [id number] Diagnos is: ICD-10- CM Z68.30 Body mass index [BMI] 30.0-30 .9, adult GORDON PATHAK 02/13 [facility] OFFICE O/P EST MOD 30 MIN [id number] Diagnos is: ICD-10- CM G47.33 Obstruc tive sleep apnea (adult) ([facility]) NUNO,02/25 [place] [facility] [place] [facility] Outpatient Encounter [id number] 1. Diagnos is: ICD-10- CM G47.33 Obstruc tive sleep apnea (adult) ([facility]) YAAKOVARELIS02/25 [facility] [place] [place] [facility] IVNTJ GRP EA ADDL [id number] Diagnos is: ICD-10- CM Z68.30 Body mass index [BMI] 30.0-30 .9, adult GORDON PATHAK 02/27 [place] GROUP BEHAVE COUNS 2-10 [id number] Diagnos is: ICD-10- CM E66.811 Obesity , class 1 NIAEVAN CH CHAEL P 03/06 [place] [facility] BEHAVE COUNS 2-10 [id number] Diagnos is: ICD-10- CM E66.811 Obesity , class 1 NIAEVAN CH CHAEL P 03/13 [place] [facility]HV IVNTJ GRP EA ADDL [id number] 1BY. 02 Diagnos is: ICD-10- CM Z68.30 Body mass index [BMI] 30.0-30 .9, adult GORDON PATHAK 04/03 [place] [facility]HV IVNTJ GRP EA ADDL [id number] Diagnos is: ICD-10- CM Z68.30 Body mass index [BMI] 30.0-30 .9, adult GORDON PATHAK 04/10 [place] [facility]HV IVNTJ GRP EA ADDL [id number] Diagnos is: ICD-10- CM Z68.30 Body mass index [BMI] 30.0-30 .9, adult GORDON PATHAK 04/24 [place] [facility] [place] PT EDUCATION NOC GROUP [id number] Diagnos is: ICD-10- CM Z71.3 Dietary peer financial counselor ing and surveil RAKESH Murphy 04/29 [facility] [place] [facility] GROUP BEHAVE COUNS 2-10 [id number] Diagnos is: ICD-10- CM E66.811 Obesity , class 1 NIAEVAN CH CHAEL P 05/01 [place] [facility] [place] [facility] PT EDUCATION NOC GROUP [id number] Diagnos is: ICD-10- CM Z71.3 Dietary peer financial counselor ing and surveil RAKESH Murphy 06/24 [facility] [place] [facility] BHV IVNTJ GRP EA ADDL [id number] Diagnos is: ICD-10- CM E66.811 Obesity , class 1 GORDON PATHAK A 06/26 [place] [facility] LD GROUP BEHAVE COUNS 2-10 [id number] Diagnos is: ICD-10- CM E66.811 Obesity , class 1 EVAN KRAMER CHAEL P 07/03 [place] [facility] Outpatient Encounter [id number] 07/03 [facility] EXERCISE CLASS [id number] Diagnos is: ICD-10- CM Z72.3 Lack of physica l exercis e CRISTAL LAZCANO 07/07 [facility] EXERCISE CLASS [id number] Diagnos is: ICD-10- CM Z72.3 Lack of physica l exercis e Cecily ONEILL 07/09 [facility] [place] [facility] GROUP BEHAVE COUNS 2-10 [id number] [id number] Diagnos is: ICD-10- CM E66.811 Obesity , class 1 NIAEVAN CH P 07/10 [place] [facility] [place] [facility] Outpatient Encounter [id number] 07/10 [facility] [place] [facility] LD GROUP BEHAVE COUNS 2-10 [id number] 1BY. 92 Diagnos is: ICD-10- CM E66.811 Obesity , class 1 NIAEVAN CH P 07/17 [place] [facility] [place] [facility] Outpatient Encounter [id number] 07/21 [facility] [place] [facility] [place] [facility] Outpatient Encounter [id number] [facility] [place] [facility] BHV IVNTJ GRP EA ADDL [id number] Diagnos is: ICD-10- CM Z68.30 Body mass index [BMI] 30.0-30 .9, adult GORDON PATHAK 07/24 [place] [facility] [place] OFFICE O/P EST MOD 30 MIN [id number] Diagnos is: ICD-10- CM R55 Syncope and collGuzman Whitley 07/25 [facility] [place] [facility] GROUP BEHAVE COUNS 2-10 [id number] Diagnos is: ICD-10- CM E66.811 Obesity , class 1 NIAEVAN CH P 07/31 [place] [facility] [place] [facility] PH1 ASSMT&MGMT NQHP 11-20 [id number] Diagnos is: ICD-10- CM Z72.3 Lack of physica l LARISA Bowen 08/20 [facility] [place] [facility] [place] [facility]HV IVNTJ GRP EA ADDL [id number] Diagnos is: ICD-10- CM E66.811 Obesity , class 1 GORDON PATHAK 08/28 [place] [facility] BEHAVE COUNS 2-10 [id number] [id number] Diagnos is: ICD-10- CM E66.3 Overwei ght KRISHAN,BIRD HELLE KARTHIK 09/18 [place] [facility] BEHAVE COUNS 2-10 [id number] [id number] Diagnos is: ICD-10- CM E66.811 Obesity , class 1 KRISHAN,BIRD HELLE KARTHIK 10/02 [place] [facility] [place] [facility] OFFICE O/P EST MOD 30 MIN [id number] Diagnos is: ICD-10- CM L71.8 Other EVAN Weiss 10/07 [facility] [place] [facility] [place] V IVNTJ GRP EA ADDL [id number] Diagnos is: ICD-10- CM Z68.31 Body mass index [BMI] 31.0-31 .9, adult GORDON PATHAK 10/09 [place] [facility] V IVNTJ GRP EA ADDL [id number] Diagnos is: ICD-10- CM Z68.31 Body mass index [BMI] 31.0-31 .9, adult GORDON PATHAK 10/23 [place] [facility] V IVNTJ GRP EA ADDL [id number] Diagnos is: ICD-10- CM E66.811 Obesity , class 1 GORDON PATHAK 11/13 [place] Social History Combined list of available smoking, tobacco, and other social history from Department of Defense and Veterans Affairs facilities. Social History Type Response Date Comment Sourc e Tobacco smoking status NHIS VA-TOBACCO QUIT 15 YRS OR MORE 01/21/2024 [facility] [place] [facility] History of tobacco use VA-TOBACCO FORMER USER 01/21/2024 [facility] [place] [facility] History of tobacco use VA-TOBACCO FORMER USER 01/26/2023 [facility] [place] [facility] History of tobacco use VA-TOBACCO FORMER USER 01/27/2022 [facility] [place] [facility] History of tobacco use UT-TOBACCO FORMER USER 09/17/2020 [facility] [place] [facility] History of tobacco use UT-TOBACCO NEVER USED 06/04/2019 [facility] [place] [facility] History of tobacco use VA-TOBACCO FORMER USER 03/14/2018 [facility] [place] [facility] History of tobacco use QUIT TOBACCO USE > 7 YEARS AGO 04/04/2017 [facility] [place] [facility] History of tobacco use QUIT TOBACCO USE > 7 YEARS AGO 04/05/2016 quit in 1985 [facility] [place] [facility] Plan of Care List of future care activities from Department of Veterans Affairs facilities. Additional future care activities may be listed in the Assessment and Plan section. Date/Time Care Activity Care Activity Detail Maryi ty 11/20/2024 AMBULATORY - NONE AMBULATORY - NONE YARITZA SADLER
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
--- OUTSIDE RECORDS SUMMARY | 2024-11-20 14:17 | XMS_ITS | Clinical Summary ---
Author Organization [facility] Address [address] [place] [phone] Phone Care Team Providers Care Roof Designer Name Role Phone Wilfredo Bernard MD Primary Care Provider Allergies Active Allergy Reactions Criticality Noted Date Comments Adhesive Rash with Blisters High 08/11/2024 Morphine Nausea and/or Vomiting Low 10/07/2022 Medications pravastatin (PRAVACHOL) 40 MG tablet Take 40 mg by mouth daily. Active levothyroxine (SYNTHROID, LEVOTHROID) 125 MCG tablet Take 125 mcg by mouth every morning. Active bromocriptine (PARLODEL) 2.5 mg tablet Take 2.5 mg by mouth daily. Active losartan (COZAAR) 100 MG tablet Take 100 mg by mouth daily. Active tamsulosin (FLOMAX) 0.4 mg Cap Take 0.4 mg by mouth daily. Active Ca/D3/mag ox/zinc/engraver copperplate/eliseo /bor (CALCIUM 600-D3 PLUS, MAG-ZINC, ORAL) Take by mouth. Active cholecalciferol, vitamin D3, (VITAMIN D3) 25 mcg (1,000 unit) capsule Take 1,000 Units by mouth daily. Active aspirin 81 mg chewable tablet Take 81 mg by mouth daily. Active cetirizine (ZYRTEC) 10 MG tablet Take 10 mg by mouth daily. Active finasteride (PROSCAR) 5 mg tablet Take 1 tablet by mouth every morning. 05/12/2024 Active levETIRAcetam (KEPPRA XR) 500 mg 24 hr tablet Take 1,000 mg by mouth daily. 08/11/2024 Active rosuvastatin (CRESTOR) 20 MG tablet Take 1 tablet by mouth every morning. 07/08/2024 Active Active Problems Problem Noted Date Diagnosed Date Sinus node dysfunction 08/11/2024 Assessment & Plan (08/11/2024 3:31 PM EDT): Cardiac pacemaker in situ. Left bundle branch block 08/11/2024 Assessment & Plan (08/11/2024 3:33 PM EDT): Noted on EKG. This is chronic. No changes in management at this time. Cardiac pacemaker in situ 08/11/2024 Assessment & Plan (08/11/2024 3:34 PM EDT): Med[employer] implanted on 08/07/2024. 14.6-year battery life. RA and RV pacing and sensing stable. 1 nonsustained VT lasting 3 seconds. AP 14.1% and OVAL OR CIRCULAR GLASS CUTTER less than 0.1%. No parameter changes. Plan: Continue remote monitoring Follow-up in 3 months Benign essential hypertension 08/11/2024 Assessment & Plan (08/11/2024 3:34 PM EDT): Blood pressure under good control. Patient is currently on losartan. Will continue current management and have patient return in 3 months. Plan: Continue losartan Follow-up in 3 months Social History Tobacco Use Types Packs/Day Years Used Date Smoking Tobacco: Never Assessed Education Answer Date Recorded Are you interested in more education? Not on nay e 10/07/2022 Are you concerned about learning? Not on file 10/07/2022 No 10/07/2022 No 10/07/2022 Digital Access Answer Date Recorded No 10/07/2022 No 10/07/2022 Reliable internet access at home? Not on file 10/07/2022 Device with a working camera? Not on file Intimate Partner Violence Answer Date R ecorded Are you denied basic needs s uch as food, clothing, or medical care? No 10/07/2022 In the past 12 months have y ou been in a relationship with a person who hurts, threatens, or tries to control you? No 10/07/2022 Are you denied basic needs s uch as food, clothing, or medical care? No 10/07/2022 In the past 12 months have y ou been in a relationship with a person who hurts, threatens, or tries to control you? No 10/07/2022 Sex and Gender Information Value Date Recorded Sex Assigned at Not on file Legal Sex Male 1:52 PM EDT Gender Identity Not on file Sexual Orientation Not on file Last Filed Vital Signs Vital Sign Reading Time Taken Comments Blood Pressure 126/80 08/11/2024 2:37 PM EDT Pulse 100 08/11/2024 2:37 PM EDT Temperature 37.2 C (99 F) 10/07/2022 6:00 PM EDT Respiratory Rate 23 10/07/2022 6:00 PM EDT Oxygen Saturation 98% 08/11/2024 2:37 PM EDT Inhaled Oxygen Concentration - - Weight 99.3 kg (219 lb) 08/11/2024 2:37 PM EDT Height 180.3 cm (5' 10.98 ) 08/11/2024 2:37 PM E DT Body Mass Index 30.56 08/11/2024 2:37 PM EDT Plan of Treatment Upcoming Encounters Date Type Department Care Team (Late st Contact Info) Description 05/12/2025 10:20 AM EST Office Visit [facility] [address] [place] [address] [address] Floor, [address] [place] [address] Israel Gore MD [address] [place] [phone] Health Maintenance Due Date Last Done Comments Adult Td,Tdap Booster 1942 TSH LEVEL 1942 DEPRESSION SCREENING 1954 PNEUMOCOCCAL VACCINES (50+ y ears) (1 of 1 - PCV) 1992 RSV VACCINE (1 - 1-dose 75+ series) 2017 ZOSTER VACCINES (2 of 2) 08/06/2019 06/11/2019 CREATININE LEVEL 10/08/2023 10/07/2022 POTASSIUM LEVEL 10/08/2023 10/07/2022 COVID-19 VACCINE (1 - 2023-2 5 season) 2023 BLOOD PRESSURE 02/11/2025 08/11/2024 HEPATITIS A VACCINES Aged Out No long er eligible based on patient's age to complete this topic HIB VACCINES Aged Out No longer eligi ble based on patient's age to complete this topic MENINGOCOCCAL VACCINES (ACWY) Aged Out No longer eligible based on patient's age to complete this topic MENINGOCOCCAL VACCINES (B) Aged Out N o longer eligible based on patient's age to complete this topic Medical Devices Not on file Procedures Procedure Name Priority Date/Time Associated Diagnosis Comments BASIC METABOLIC PANEL STAT 10/07/2022 2:52 PM EDT from Last 3 Months or Most Recently Relevant to Health Maintenance Results * Basic metabolic panel (10/07/2022 2:52 PM EDT) SODIUM 141 133 - 146 mmol/L [facility] CHLORIDE 106 96 - 108 mmol/L [facility] POTASSIUM 4.0 3.3 - 5.1 mmol/L [facility] CO2 26 21 - 35 mmol/L [facility] BUN 19 6 - 19 mg/dL [facility] CREATININE 1.10 0.5 - 1.5 mg/dL [facility] GLUCOSE 99 70 - 99 mg/dL [facility] CALCIUM 8.8 8.4 - 10.3 mg/dL [facility] EGFR 68 >59 mL/min/1.7 3m2 [facility] Comment:Estimated glomerular filtration rate calculated using the CKD-EPI refit equation. ANION GAP 13 10 - 20 mmol/L [facility] Blood 10/07/2022 2:52 PM EDT 10/07/2022 2:56 PM EDT us Chuy Shah MD LAB BLOOD ORDERABLES Final Result [facility] [address] [place], [place] [id number] from Last 3 Months or Most Recently Relevant to Health Maintenance Insurance MEDICARE PART A & B [facility] MEDICARE SUPPLEMENT Care Teams Roof Designer Relationship Specialty Start Date End Date Wilfredo Bernard MD [address] [place] [id number] PCP - General Internal Medicine 10/07/22 Additional Source Comments The information contained in this document represents components of the legal health record. It is not the complete legal health record.[facility]
== END 2024-11-20 13:49 | disposition home or self-care (01) ==
LOC: HO.HSM 13:33
PROVIDERS: PCP Internal Medicine; Visit Provider Psychiatry & Neurology Neurology
DX: D35.2 Benign neoplasm of pituitary gland (principal); G40.209 Localization-related (focal) (partial) symptomatic epilepsy and epileptic syndromes with complex partial seizures, not intractable, without status epilepticus
CPT/HCPCS: 99214

== ENCOUNTER → 2024-11-20 13:32 | Outpatient (BNVA) | payer MEDICARE, OTHER, SELFPAY | PROVIDERS: PCP Internal Medicine; Visit Provider Psychiatry & Neurology Neurology | DX: G40.209 Localization-related (focal) (partial) symptomatic epilepsy and epileptic syndromes with complex partial seizures, not intractable, without status epilepticus (principal); D35.2 Benign neoplasm of pituitary gland | CPT/HCPCS: 99212 ==

== ENCOUNTER 2024-12-09 10:01 | Outpatient (AMB) | payer MEDICARE, OTHER, SELFPAY ==
[2024-12-09 10:26] VITALS: BMI 30.4
--- NOTE | 2024-12-09 10:26 | A.OFFVIS_ITS ---
Vital Signs 12/09/24 10:26 Height 5 ft 11 in Weight 218 lb BMI 30.4 Intake Visit Reasons: 1y follow up s/p Arterial US 10/24/24 Intake Note: 1 yr follow up Abd US 10/24/24 for AAA, pt states no complaints Harnessmaker Required: No Accompanied by: Spouse Allergies morphine Allergy (Unknown, Verified 12/09/24 10:27) Unknown ENVIROMENTAL Allergy (Unknown, Uncoded 12/09/24 10:27) POST NASAL DRIP HPI HPI 1y follow up s/p Arterial US 10/24/24: Details: The patient is an 84-year-old male presenting for evaluation of an abdominal aortic aneurysm. The aneurysm has been monitored with ultrasounds every six months, and recent imaging indicates it is slightly larger than previous measurements. The last computed tomography (CT) scan was performed in February 2023, approximately 18 months ago. The patient recently underwent pacemaker insertion at [facility]. This was done on 07/28/[address] Varela and he received a Medtronic dual-chamber pacemaker. He now presents for routine aortic surveillance follow-up. 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 Mother Colon cancer Brother No problems noted. Brother No problems noted. Sister No problems noted. Social History Housing: House Are you a primary healthcare administrative assistant to a significant other at home: No Do you presently have visiting nurse or other home services: No Alcohol intake: never Patient Tobacco Use Status: Former Tobacco user e-Cigarette/Vaping Use: Never Used service: Yes Current occupational status: retired Cognitive needs: No Hearing needs: No Vision needs: No Review of Systems Const All systems reviewed & are unremarkable except as noted in HPI and below Reports no additional complaints ENT Reports Normal hearing present Card Denies chest pain, Denies chest pain at rest, Denies chest pain with activity and Denies pedal edema Resp Denies cough GI Denies abdominal pain Musc Denies abnormal gait, Denies muscle cramps and Denies radiating pain into limb Skin/Breast Denies skin ulcer and Denies wounds Neuro Reports Normal hearing present and Denies abnormal gait Psych Reports no additional complaints Physical Exam Vital Signs: BMI result Body Mass Index 30.4 Const General: cooperative, healthy appearing and comfortable Orientation/consciousness: oriented to person, oriented to place and oriented to time HEENT Head: Yes normal to inspection Neck Neck: Yes normal visual inspection Carotids: no bruits Chest Chest palpation & inspection: normal inspection of the chest Resp Effort & Inspection: normal respiratory effort and able to speak in complete sentences Auscultation: clear to auscultation bilaterally, no crackles, no rales, no rhon chi and no wheezes Cardio Rate: regular rate Rhythm: regular rhythm Heart sounds: S1 normal heart sound present and S2 normal heart sound present Bruits: no carotid bruits Peripheral pulses: Peripheral pulses 2+ throughout GI Inspection: Yes normal to inspection Skin Wounds: no wounds Hair: normal Neuro General: oriented to person, oriented to place and oriented to time Cranial nerves: Yes CN's II-XII intact bilaterally and Yes Normal hearing present Cognition (Neuro): normal cognition Motor exam (neuro): 5/5 motor strength present throughout Extrem Other: venous exam: No significant superficial varicosities or spider telangiectasias, minimal edema General: No clubbing, No cyanosis and No edema Psych Appearance: grossly normal Mental Status: mental status grossly normal Speech and movement: Normal speech and movement present Results Reviewed Results Reviewed: Ultrasound dated 10/24/2024 demonstrates distal aorta measuring 4.7 x 5 cm. Assessment & Plan Assessment & Plan (1) AAA (abdominal aortic aneurysm): Code(s): I71.40 - Abdominal aortic aneurysm, without rupture, unspecified Category: Medical Qualifiers: Abdominal aorta location: infrarenal aorta Presence of rupture: without rupture Qualified Code(s): I71.43 - Infrarenal abdominal aortic aneurysm, without rupture Plan: In short patient has slow progressive enlargement of his aorta. We did discuss these findings with the patient and will obtain a CT angiogram of abdomen and pelvis to better elucidate the true size of this aneurysm. He will follow up with us after testing. Thank you for allowing us to assist in his care. Orders: Orders Creatinine Today I71.43 - Infrarenal abdominal aortic aneurysm, without rupture CT angio abdomen pelvis Today I71.43 - Infrarenal abdominal aortic aneurysm, without rupture Blood Urea Nitrogen Today I71.43 - Infrarenal abdominal aortic aneurysm, without rupture Coding Level of Care Code Est Pt Level 4 (98017) Complex EM visit Add On G2211 Diagnoses Infrarenal abdominal aortic aneurysm (AAA) without rupture I71.43 Abdominal aorta location: infrarenal aorta Presence of rupture: without rupture
--- OUTSIDE RECORDS SUMMARY | 2024-12-09 13:01 | XMS_ITS | Clinical Summary ---
Author Organization [facility] Address [address] [place] [address] Phone Care Team Providers Care Hand I Thermal Cutter Name Role Phone Wilfredo Bernard MD Primary Care Provider [phone] Allergies Active Allergy Reactions Criticality Noted Date [...] 0.4 mg by mouth daily. Active Ca/D3/mag ox/zinc/copier operator/eliseo /bor (CALCIUM 600-D3 PLUS, MAG-ZINC, ORAL) Take [...] VT lasting 3 seconds. AP 14.1% and TERRAZZO JOURNEYMAN less than 0.1%. No parameter changes. Plan: [...] Description 05/12/2025 10:20 AM EST Office Visit [facility] [address] [place] [address] 3rd Floor, [address] [place] [address] Israel Gore MD [address] [place] [address] Health Maintenance Due Date Last Done Comments Adult Td,Tdap Booster 1942 TSH LEVEL 1942 DEPRESSION SCREENING 1954 PNEUMOCOCCAL VACCINES (50+ y ears) (1 of 1 - PCV) 1992 RSV VACCINE (1 - 1-dose 75+ series) 2017 ZOSTER VACCINES (2 of 2) 08/06/2019 06/11/2019 CREATININE LEVEL 10/08/2023 10/07/2022 POTASSIUM LEVEL 10/08/2023 10/07/2022 INFLUENZA VACCINE (#1) 2024 COVID-19 VACCINE ( - 2023-2 5 season) 2024 BLOOD PRESSURE 02/11/2025 08/11/2024 HEPATITIS A VACCINES [...] EDT) SODIUM 141 133 - 146 mmol/L [facility] CHLORIDE 106 96 - 108 mmol/L [facility] POTASSIUM 4.0 3.3 - 5.1 mmol/L [facility] CO2 26 21 - 35 mmol/L [facility] BUN 19 6 - 19 mg/dL [facility] CREATININE 1.10 0.5 - 1.5 mg/dL [facility] GLUCOSE 99 70 - 99 mg/dL [facility] CALCIUM 8.8 8.4 - 10.3 mg/dL [facility] EGFR 68 >59 mL/min/1.7 3m2 [facility] Comment:Estimated glomerular filtration rate calculated using the CKD-EPI refit equation. ANION GAP 13 10 - 20 mmol/L [facility] Blood 10/07/2022 2:52 PM EDT 10/07/2022 2:56 PM EDT us Chuy Shah MD LAB BLOOD ORDERABLES Final Result [facility] [address] [place] [address] from Last 3 Months or Most Recently Relevant to Health Maintenance Insurance MEDICARE PART A & B [facility] MEDICARE SUPPLEMENT Care Teams Hand I Thermal Cutter Relationship Specialty Start Date End Date Wilfredo Bernard MD [address] [place] [address] PCP - General Internal Medicine 10/07/22 Additional Source Comments The information contained in this document represents components of the legal health record. It is not the complete legal health record.[facility]
== END 2024-12-09 10:44 | disposition home or self-care (01) ==
LOC: HO.HVS 10:02
PROVIDERS: PCP Internal Medicine; Visit Provider Surgery Vascular Surgery
DX: I71.43 Infrarenal abdominal aortic aneurysm, without rupture (principal)
CPT/HCPCS: 99214; G2211

== ENCOUNTER → 2024-12-09 10:01 | Outpatient (BNVA) | payer MEDICARE, OTHER, SELFPAY | PROVIDERS: PCP Internal Medicine; Visit Provider Surgery Vascular Surgery | DX: I71.43 Infrarenal abdominal aortic aneurysm, without rupture (principal) | CPT/HCPCS: 99212 ==

== ENCOUNTER → 2024-12-25 23:59 | Outpatient (BNV) | payer MEDICARE, OTHER, SELFPAY ==
--- NOTE | 2024-12-29 16:04 | MHC.OFFVIS ---
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 Mother Colon cancer Brother No problems noted. Brother No problems noted. Sister No problems noted. Social History Housing: House Are you a primary residential child care counselor to a significant other at home: No Do you presently have visiting nurse or other home services: No Alcohol intake: never Patient Tobacco Use Status: Former Tobacco user e-Cigarette/Vaping Use: Never Used service: Yes Current occupational status: retired Cognitive needs: No Hearing needs: No Vision needs: No Office Procedures Cardiac Device Check Cardiac Device Check Details: Remote pacemaker report generated 12/25/2024. Pacemaker function is adequate [id number] Cardiac Device Interrogation, pacemaker Procedure code (CPT) selection complete Assessment & Plan Assessment & Plan (1) Cardiac pacemaker in situ: Comment: Medtronic dual-chamber pacemaker 08/07/24 Code(s): Z95.0 - Presence of cardiac pacemaker Category: Medical Plan: See above Coding Level of Care Code Procedure Only Diagnoses Cardiac pacemaker in situ Z95.0 CPT Codes Cardiac Device Check - Cardiac Device 12: [id number] Cardiac Device Interrogation, pacemaker ([id number])
== END ==
PROVIDERS: PCP Internal Medicine; Visit Provider Internal Medicine Cardiovascular Disease
DX: Z45.018 Encounter for adjustment and management of other part of cardiac pacemaker (principal)
CPT/HCPCS: 93294

== ENCOUNTER 2025-01-09 09:29 | Outpatient (REF) | payer MEDICARE, OTHER, SELFPAY ==
--- OUTSIDE RECORDS SUMMARY | 2025-01-09 10:39 | XMS_ITS | Clinical Summary ---
Author Organization [facility] Address [address] [place] [address] Phone Care Team Providers Care Venetian Blind Tape Cutter Name Role Phone Wilfredo Bernard MD Primary Care Provider [phone] Allergies Active Allergy Reactions Criticality Noted Date [...] 0.4 mg by mouth daily. Active Ca/D3/mag ox/zinc/copy holder/eliseo /bor (CALCIUM 600-D3 PLUS, MAG-ZINC, ORAL) Take [...] VT lasting 3 seconds. AP 14.1% and MERCHANT TAILOR less than 0.1%. No parameter changes. Plan: [...] Description 05/12/2025 10:20 AM EST Office Visit [facility] [address] [place] [address] [address]rd Floor, [address] [place] [address] Israel Gore MD [address] [place] [address] Health Maintenance Due Date Last Done Comments Adult Td,Tdap Booster 1942 TSH LEVEL 1942 DEPRESSION SCREENING 1954 PNEUMOCOCCAL VACCINES (50+ y ears) (1 of 1 - PCV) 1992 RSV VACCINE (1 - 1-dose 75+ series) 2017 ZOSTER VACCINES (2 of 2) 08/06/2019 06/11/2019 CREATININE LEVEL 10/08/2023 10/07/2022 POTASSIUM LEVEL 10/08/2023 10/07/2022 INFLUENZA VACCINE (#1) 2024 COVID-19 VACCINE ( - 2024-2 6 season) 2024 BLOOD PRESSURE 02/11/2025 08/11/2024 HEPATITIS [...] EDT) SODIUM 141 133 - 146 mmol/L [facility] CHLORIDE 106 96 - 108 mmol/L [facility] POTASSIUM 4.0 3.3 - 5.1 mmol/L [facility] CO2 26 21 - 35 mmol/L [facility] BUN 19 6 - 19 mg/dL [facility] CREATININE 1.10 0.5 - 1.5 mg/dL [facility] GLUCOSE 99 70 - 99 mg/dL [facility] CALCIUM 8.8 8.4 - 10.3 mg/dL [facility] EGFR 68 >59 mL/min/1.7 3m2 [facility] Comment:Estimated glomerular filtration rate calculated using the CKD-EPI refit equation. ANION GAP 13 10 - 20 mmol/L [facility] Blood 10/07/2022 2:52 PM EDT 10/07/2022 2:56 PM EDT us Chuy Shah MD LAB BLOOD ORDERABLES Final Result [facility] [address] [place] [address] from Last 3 Months or Most Recently Relevant to Health Maintenance Insurance MEDICARE PART A & B [facility]IC[facility] SUPPLEMENT Care Teams Venetian Blind Tape Cutter Relationship Specialty Start Date End Date Wilfredo Bernard MD [address] [place] [address] PCP - General Internal Medicine 10/07/22 Additional Source Comments The information contained in this document represents components of the legal health record. It is not the complete legal health record.[facility]
[2025-01-09 13:31] LABS: MANUAL DIFF FLAG NO
[2025-01-09 13:39] LABS: Hematocrit 45.6 % (42.0-52.0); Hemoglobin 14.6 g/dl (14.0-18.0); Imm Gran Abs Auto 0.02 X10*3/uL (0.00-0.03); Imm Gran Pct Auto 0.3 % (0.0-0.4); Lymphocytes Absolute Auto 2.7 X10*3/uL (1.2-4.9); Mean Corpuscular HGB Conc 32.0 g/dl (31.0-36.0); Mean Corpuscular Hemoglobin 30.2 pg (27.0-33.0); Mean Corpuscular Volume 94.4 fL (80.0-98.0); NRBC Abs Auto 0.000 X10*3/uL (0.0-0.012); NRBC Pct Auto 0.0 /100WBC (0.0-0.2); Platelet Count 189 X10*3/uL (160-400); Red Blood Count 4.83 X10*6/uL (4.60-5.80); White Blood Count 7.3 X10*3/uL (4.8-10.8)
[2025-01-09 17:21] LABS: Alanine Aminotransferase 26 U/L (0-40); Albumin Level 4.1 g/dL (3.5-5.0); Alkaline Phosphatase 71 U/L (39-117); Anion Gap 12 (12-20); Aspartate Amino Transferase 37 U/L (5-37); Blood Urea Nitrogen 16 mg/dL (9-16); Calcium 9.6 mg/dL (8.4-10.2); Carbon Dioxide 27 mmol/L (22-29); Chloride 110 mmol/L (96-108); Estimated Glomerular Filt Rate > 60; Potassium 4.0 mmol/L (3.3-5.1); Sodium 145 mmol/L (135-145); Total Protein 6.7 g/dL (6.5-8.0)
== END 2025-01-09 09:30 | disposition home or self-care (01) ==
LOC: HO.HMGCLDS 09:29
PROVIDERS: Absent Provider Surgery Vascular Surgery; PCP Internal Medicine; Visit Provider Internal Medicine
DX: E11.9 Type 2 diabetes mellitus without complications (principal); E78.9 Disorder of lipoprotein metabolism, unspecified; I10 Essential (primary) hypertension; E03.8 Other specified hypothyroidism
CPT/HCPCS: 36415; 80053; 83036; 84443; 85025

== ENCOUNTER 2025-01-15 07:33 | Outpatient (REF) | payer MEDICARE, OTHER, SELFPAY ==
--- NOTE | ~2025-01-15 | CT_ITS ---
CLINICAL HISTORY: I71.43 - Infrarenal abdominal aortic aneurysm, without rupture CT angiography abdomen and pelvis with contrast. 3-D post processing. Comparison: CT/NM/SR - CT ABDOMEN PELVIS ANGIOGRAPHY WITH IV CONTRAST - 03/05/23 14:56 EST Findings: There is an infrarenal abdominal aortic fusiform aneurysm measuring up to 8 cm in length an up to 4.8 cm in diameter. It terminates at the bifurcation. Cardiac leads are seen in the right atrium and right ventricle. No consolidation or effusion. The gallbladder and solid organs are within normal limits. No renal stones. No bowel obstruction, pneumoperitoneum, or pneumatosis. There is colonic diverticulosis without evidence of diverticulitis. There are multiple urinary bladder calculi. There is a mild chronic compression fracture of L1. The rest of the GI tract is unremarkable. IMPRESSION: 1. Infrarenal fusiform aortic aneurysm mildly increased in diameter now measuring up to 4.8 cm. 2. Multiple urinary bladder calculi. 3. Colonic diverticulosis. This document has been electronically signed by: Doroteo Ng MD on 01/15/2025 09:21:43
--- OUTSIDE RECORDS SUMMARY | 2025-01-15 07:37 | XMS_ITS | Clinical Summary ---
Author Organization [facility] Address [address] [place] [address] Phone Care Team Providers Care Office Assistant Name Role Phone Wilfredo Bernard MD Primary Care Provider [phone] Allergies Active Allergy Reactions Criticality Noted Date [...] mg by mouth daily. Active Ca/D3/mag ox/zinc/copy room technician/eliseo /bor (CALCIUM 600-D3 PLUS, MAG-ZINC, ORAL) Take [...] VT lasting 3 seconds. AP 14.1% and FINANCIAL PLANNING ADVISER less than 0.1%. No parameter changes. Plan: [...] Description 05/12/2025 10:20 AM EST Office Visit [facility] [address] [place] [address] [address]rd Floor, [address] [place] [address] Israel Gore MD [address] [place] [address] Health Maintenance Due Date Last Done Comments [...] EDT) SODIUM 141 133 - 146 mmol/L [facility] CHLORIDE 106 96 - 108 mmol/L [facility] POTASSIUM 4.0 3.3 - 5.1 mmol/L [facility] CO2 26 21 - 35 mmol/L [facility] BUN 19 6 - 19 mg/dL [facility] CREATININE 1.10 0.5 - 1.5 mg/dL [facility] GLUCOSE 99 70 - 99 mg/dL [facility] CALCIUM 8.8 8.4 - 10.3 mg/dL [facility] EGFR 68 >59 mL/min/1.7 3m2 [facility] Comment:Estimated glomerular filtration rate calculated using the CKD-EPI refit equation. ANION GAP 13 10 - 20 mmol/L [facility] Blood 10/07/2022 2:52 PM EDT 10/07/2022 2:56 PM EDT us Chuy Shah MD LAB BLOOD ORDERABLES Final Result [facility] [address] [place] [address] from Last 3 Months or Most Recently Relevant to Health Maintenance Insurance MEDICARE PART A & [facility] SUPPLEMENT Care Teams Office Assistant Relationship Specialty Start Date End Date Wilfredo Bernard MD [address] [facility] [place] [address] PCP - General Internal Medicine 10/07/22 Additional Source Comments The information contained in this document represents components of the legal health record. It is not the complete legal health record.[facility]
[2025-01-15] MEDS: iohexoL 350 MG/ML 100 ML INFUS..BTL IV (08:51)
== END 2025-01-15 07:34 | disposition home or self-care (01) ==
LOC: HO.CT 07:33
PROVIDERS: PCP Internal Medicine; Visit Provider Surgery Vascular Surgery
DX: I71.43 Infrarenal abdominal aortic aneurysm, without rupture (principal)
CPT/HCPCS: 74174; Q9967

== ENCOUNTER 2025-01-19 14:37 | Outpatient (AMB) | payer MEDICARE, OTHER, SELFPAY ==
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
--- OUTSIDE RECORDS SUMMARY | 2025-01-19 18:08 | XMS_ITS | Clinical Summary ---
Author Organization [facility] Address [address] [place] [address] Phone Care Team Providers Care Division Head Name Role Phone Wilfredo Bernard MD Primary Care Provider [phone] Allergies Active Allergy Reactions Criticality Noted Date [...] mg by mouth daily. Active Ca/D3/mag ox/zinc/copy supervisor/eliseo /bor (CALCIUM 600-D3 PLUS, MAG-ZINC, ORAL) Take [...] VT lasting 3 seconds. AP 14.1% and SERVICE TESTER less than 0.1%. No parameter changes. Plan: [...] Description 05/12/2025 10:20 AM EST Office Visit [facility] [address] [place] [address] [address]rd Floor, [address] [place] [address] Israel Gore MD [address] [place] [address] Health Maintenance Due Date Last Done Comments [...] EDT) SODIUM 141 133 - 146 mmol/L [facility] CHLORIDE 106 96 - 108 mmol/L [facility] POTASSIUM 4.0 3.3 - 5.1 mmol/L [facility] CO2 26 21 - 35 mmol/L [facility] BUN 19 6 - 19 mg/dL [facility] CREATININE 1.10 0.5 - 1.5 mg/dL [facility] GLUCOSE 99 70 - 99 mg/dL [facility] CALCIUM 8.8 8.4 - 10.3 mg/dL [facility] EGFR 68 >59 mL/min/1.7 3m2 [facility] Comment:Estimated glomerular filtration rate calculated using the CKD-EPI refit equation. ANION GAP 13 10 - 20 mmol/L [facility] Blood 10/07/2022 2:52 PM EDT 10/07/2022 2:56 PM EDT us Chuy Shah MD LAB BLOOD ORDERABLES Final Result [facility] [address] [place] [address] from Last 3 Months or Most Recently Relevant to Health Maintenance Insurance MEDICARE PART A & B [facility] EXTENSION MEDICARE SUPPLEMENT Care Teams Division Head Relationship Specialty Start Date End Date Wilfredo Bernard MD [address] [facility] [place] [address] PCP - General Internal Medicine 10/07/22 Additional Source Comments The information contained in this document represents components of the legal health record. It is not the complete legal health record.[facility]
== END 2025-01-19 15:19 | disposition home or self-care (01) ==
LOC: HO.HSM 14:38
PROVIDERS: PCP Internal Medicine; Visit Provider Psychiatry & Neurology Neurology
DX: G40.209 Localization-related (focal) (partial) symptomatic epilepsy and epileptic syndromes with complex partial seizures, not intractable, without status epilepticus (principal); D35.2 Benign neoplasm of pituitary gland
CPT/HCPCS: 99214

== ENCOUNTER → 2025-01-19 14:37 | Outpatient (BNVA) | payer MEDICARE, OTHER, SELFPAY | PROVIDERS: PCP Internal Medicine; Visit Provider Psychiatry & Neurology Neurology | DX: G40.209 Localization-related (focal) (partial) symptomatic epilepsy and epileptic syndromes with complex partial seizures, not intractable, without status epilepticus (principal); D35.2 Benign neoplasm of pituitary gland; Z87.891 Personal history of nicotine dependence; I10 Essential (primary) hypertension; Z95.0 Presence of cardiac pacemaker | CPT/HCPCS: 99212 ==

== ENCOUNTER 2025-01-20 15:18 | Outpatient (REF) | payer MEDICARE, OTHER, SELFPAY ==
--- OUTSIDE RECORDS SUMMARY | 2025-01-20 19:44 | XMS_ITS | Clinical Summary ---
Author Organization [facility] Address [address] [place] [id number] Phone Care Team Providers Care Automatic Line Set Up Mechanic Name Role Phone Wilfredo Bernard MD Primary Care Provider [phone] Allergies Active Allergy Reactions Criticality Noted Date [...] 0.4 mg by mouth daily. Active Ca/D3/mag ox/zinc/copper etcher/eliseo /bor (CALCIUM 600-D3 PLUS, MAG-ZINC, ORAL) Take [...] VT lasting 3 seconds. AP 14.1% and CHEMICAL PROCESSING LABORER less than 0.1%. No parameter changes. Plan: [...] Description 05/12/2025 10:20 AM EST Office Visit [facility] [address] [place] [address] [address] Floor, [address] [place] [address] Israel Gore MD [address] [place] [id number] Health Maintenance Due Date Last Done Comments [...] EDT) SODIUM 141 133 - 146 mmol/L [facility] CHLORIDE 106 96 - 108 mmol/L [facility] POTASSIUM 4.0 3.3 - 5.1 mmol/L [facility] CO2 26 21 - 35 mmol/L [facility] BUN 19 6 - 19 mg/dL [facility] CREATININE 1.10 0.5 - 1.5 mg/dL [facility] GLUCOSE 99 70 - 99 mg/dL [facility] CALCIUM 8.8 8.4 - 10.3 mg/dL [facility] EGFR 68 >59 mL/min/1.7 3m2 [facility] Comment:Estimated glomerular filtration rate calculated using the CKD-EPI refit equation. ANION GAP 13 10 - 20 mmol/L [facility] Blood 10/07/2022 2:52 PM EDT 10/07/2022 2:56 PM EDT us Chuy Shah MD LAB BLOOD ORDERABLES Final Result [facility] [address] [place] [address] from Last 3 Months or Most Recently Relevant to Health Maintenance Insurance MEDICARE PART A & [facility] Care Teams Automatic Line Set Up Mechanic Relationship Specialty Start Date End Date Wilfredo Bernard MD [address] [facility] [place] [id number] PCP - General Internal Medicine 10/07/22 Additional Source Comments The information contained in this document represents components of the legal health record. It is not the complete legal health record.[facility]
== END 2025-01-20 15:19 | disposition home or self-care (01) ==
LOC: HO.HMGCLDS 15:18
PROVIDERS: PCP Internal Medicine; Visit Provider Psychiatry & Neurology Neurology
DX: D35.2 Benign neoplasm of pituitary gland (principal)
CPT/HCPCS: 36415; 84146

== ENCOUNTER 2025-01-22 09:55 | Outpatient (AMB) | payer MEDICARE, OTHER, SELFPAY ==
--- NOTE | 2025-01-22 10:04 | MHC.OFFVIS ---
Intake Visit Reasons: follow up CTA Abd/Pelvis 01/15/25 Intake Note: Patient presents for follow up CTA Abd/Pelvis performed on 01/15/25. No complaints. Accompanied by: Spouse Allergies morphine Allergy (Unknown, Verified 01/22/25 10:06) Unknown ENVIROMENTAL Allergy (Unknown, Uncoded 12/09/24 10:27) POST NASAL DRIP HPI HPI follow up CTA Abd/Pelvis 01/15/25: Details: The patient is an 84-year-old male presenting for follow-up regarding an abdominal aortic aneurysm. The aneurysm was initially detected at approximately 4.5 cm and has now increased to 4.8 cm as per the latest CT scan. The patient has been monitored with ultrasounds and CT scans The patient has a history of hypertension, which is currently well-controlled. He quit smoking in 1984, which has positively impacted his vascular health. 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 Mother Colon cancer Brother No problems noted. Brother No problems noted. Sister No problems noted. Social History Housing: House Are you a primary patient care manager to a significant other at home: No Do you presently have visiting nurse or other home services: No Alcohol intake: never Patient Tobacco Use Status: Former Tobacco user e-Cigarette/Vaping Use: Never Used service: Yes Current occupational status: retired Cognitive needs: No Hearing needs: No Vision needs: No Review of Systems Const All systems reviewed & are unremarkable except as noted in HPI and below Reports no additional complaints ENT Reports Normal hearing present Card Denies chest pain, Denies chest pain at rest, Denies chest pain with activity and Denies pedal edema Resp Denies cough GI Denies abdominal pain Musc Denies abnormal gait, Denies muscle cramps and Denies radiating pain into limb Skin/Breast Denies skin ulcer and Denies wounds Neuro Reports Normal hearing present and Denies abnormal gait Psych Reports no additional complaints Physical Exam Const General: cooperative, healthy appearing and comfortable Orientation/consciousness: oriented to person, oriented to place and oriented to time HEENT Head: Yes normal to inspection Neck Neck: Yes normal visual inspection Carotids: no bruits Chest Chest palpation & inspection: normal inspection of the chest Resp Effort & Inspection: normal respiratory effort and able to speak in complete sentences Auscultation: clear to auscultation bilaterally, no crackles, no rales, no rhonchi and no wheezes Cardio Rate: regular rate Rhythm: regular rhythm Heart sounds: S1 normal heart sound present and S2 normal heart sound present Bruits: no carotid bruits Peripheral pulses: Peripheral pulses 2+ throughout GI Inspection: Yes normal to inspection Skin Wounds: no wounds Hair: normal Neuro General: oriented to person, oriented to place and oriented to time Cranial nerves: Yes CN's II-XII intact bilaterally and Yes Normal hearing present Cognition (Neuro): normal cognition Motor exam (neuro): 5/5 motor strength present throughout Extrem Other: venous exam: No significant superficial varicosities or spider telangiectasias, minimal edema General: No clubbing, No cyanosis and No edema Psych Appearance: grossly normal Mental Status: mental status grossly normal Speech and movement: Normal speech and movement present Results Reviewed Results Reviewed: CT scan dated 01/15/2025 demonstrates abdominal aortic aneurysm of 4.8 cm Assessment & Plan Assessment & Plan (1) AAA (abdominal aortic aneurysm): Code(s): I71.40 - Abdominal aortic aneurysm, without rupture, unspecified Category: Medical Qualifiers: Abdominal aorta location: infrarenal aorta Presence of rupture: without rupture Qualified Code(s): I71.43 - Infrarenal abdominal aortic aneurysm, without rupture Plan: In short patient has radiologic evidence of a AAA on 4.[address] scan. We have discussed the pathophysiology of aortic aneurysms and the risk of ruptures. We have discussed rupture risk based on size. In addition we have discussed conservative measures and risk factor modification for prevention of increase in size of the aneurysm. the patient is scheduled for surveillance follow-up in approximately 6 months. Thank you for allowing us to participate in the care of this patient Plan Patient was informed and verbally consented to the use of an ambient scribe for clinic note documentation during this visit. Orders: Orders US abdominal aortic aneurysm 6 Months I71.43 - Infrarenal abdominal aortic aneurysm, without rupture Patient Instructions: - Continue regular follow-up appointments and imaging studies as scheduled. - Maintain current hypertension management plan. - Monitor for any new symptoms or changes in health and report them promptly. Coding Level of Care Code Est Pt Level 4 (54189) Diagnoses Infrarenal abdominal aortic aneurysm (AAA) without rupture I71.43 Abdominal aorta location: infrarenal aorta Presence of rupture: without rupture
--- OUTSIDE RECORDS SUMMARY | 2025-01-22 11:45 | XMS_ITS | Clinical Summary ---
Author Organization [facility] Address [address] [place] [id number] Phone Care Team Providers Care Program Services Assistant Name Role Phone Wilfredo Bernard MD Primary Care Provider [phone] Allergies Active Allergy Reactions Criticality Noted Date [...] mg by mouth daily. Active Ca/D3/mag ox/zinc/copy worker/eliseo /bor (CALCIUM 600-D3 PLUS, MAG-ZINC, ORAL) Take [...] VT lasting 3 seconds. AP 14.1% and TELEPHONE CLAIMS REPRESENTATIVE less than 0.1%. No parameter changes. Plan: [...] Description 05/12/2025 10:20 AM EST Office Visit [facility] [address] [place] [address] [address] Floor, [address] [place] [address] Israel Gore MD [address] [place] [id number] Health Maintenance Due Date Last Done Comments [...] EDT) SODIUM 141 133 - 146 mmol/L [facility] CHLORIDE 106 96 - 108 mmol/L [facility] POTASSIUM 4.0 3.3 - 5.1 mmol/L [facility] CO2 26 21 - 35 mmol/L [facility] BUN 19 6 - 19 mg/dL [facility] CREATININE 1.10 0.5 - 1.5 mg/dL [facility] GLUCOSE 99 70 - 99 mg/dL [facility] CALCIUM 8.8 8.4 - 10.3 mg/dL [facility] EGFR 68 >59 mL/min/1.7 3m2 [facility] Comment:Estimated glomerular filtration rate calculated using the CKD-EPI refit equation. ANION GAP 13 10 - 20 mmol/L [facility] Blood 10/07/2022 2:52 PM EDT 10/07/2022 2:56 PM EDT us Chuy Shah MD LAB BLOOD ORDERABLES Final Result [facility] [address] [place] [address] from Last 3 Months or Most Recently Relevant to Health Maintenance Insurance MEDICARE PART A & B [employer] [facility]LE[facility] Care Teams Program Services Assistant Relationship Specialty Start Date End Date Wilfredo Bernard MD [address] [facility] [place] [id number] PCP - General Internal Medicine 10/07/22 Additional Source Comments The information contained in this document represents components of the legal health record. It is not the complete legal health record.[facility]
== END 2025-01-22 10:50 | disposition home or self-care (01) ==
LOC: HO.HVS 09:55
PROVIDERS: PCP Internal Medicine; Visit Provider Surgery Vascular Surgery
DX: I71.43 Infrarenal abdominal aortic aneurysm, without rupture (principal)
CPT/HCPCS: 99214

== ENCOUNTER → 2025-01-22 09:55 | Outpatient (BNVA) | payer MEDICARE, OTHER, SELFPAY | PROVIDERS: PCP Internal Medicine; Visit Provider Surgery Vascular Surgery | DX: I71.43 Infrarenal abdominal aortic aneurysm, without rupture (principal) | CPT/HCPCS: 99212 ==

== ENCOUNTER 2025-01-30 11:23 | Outpatient (AMB) | payer MEDICARE, OTHER, SELFPAY ==
[2025-01-30 11:26] VITALS: BP 150/74; PULSE 72; O2SAT 96; BMI 32.2
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
--- OUTSIDE RECORDS SUMMARY | 2025-01-30 13:44 | XMS_ITS | Clinical Summary ---
Author Organization [facility] Address [address] [place] [address] Phone Care Team Providers Care Traffic Operator Name Role Phone Wilfredo Bernard MD Primary Care Provider [phone] Allergies Active Allergy Reactions Criticality Noted Date [...] mg by mouth daily. Active Ca/D3/mag ox/zinc/copper tapper/eliseo /bor (CALCIUM 600-D3 PLUS, MAG-ZINC, ORAL) Take [...] VT lasting 3 seconds. AP 14.1% and SPICE CLEANER less than 0.1%. No parameter changes. Plan: [...] Description 05/12/2025 10:20 AM EST Office Visit [facility] [address] [place] [address] 3rd Floor, [address] [place] [address] Israel Gore MD [address] [place] [address] Health Maintenance Due Date Last Done Comments [...] Date/Time Associated Diagnosis Comments BASIC METABOLIC PANEL (BMP) STAT 10/07/2022 2:52 PM EDT from Last 3 Months or Most Recently Relevant to Health Maintenance Results * Basic metabolic panel (10/07/2022 2:52 PM EDT) SODIUM 141 133 - 146 mmol/L [facility] CHLORIDE 106 96 - 108 mmol/L [facility] POTASSIUM 4.0 3.3 - 5.1 mmol/L [facility] CO2 26 21 - 35 mmol/L [facility] BUN 19 6 - 19 mg/dL [facility] CREATININE 1.10 0.5 - 1.5 mg/dL [facility] GLUCOSE 99 70 - 99 mg/dL [facility] CALCIUM 8.8 8.4 - 10.3 mg/dL [facility] EGFR 68 >59 mL/min/1.7 3m2 [facility] Comment:Estimated glomerular filtration rate calculated using the CKD-EPI refit equation. ANION GAP 13 10 - 20 mmol/L [facility] Blood 10/07/2022 2:52 PM EDT 10/07/2022 2:56 PM EDT us Chuy Shha MD LAB BLOOD BKR ORDERABLES Fi nal Result [facility] [address] [place] [address] from Last 3 Months or Most Recently Relevant to Health Maintenance Insurance MEDICARE PART A & B [facility] MEDIC[facility] SUPPLEMENT Care Teams Traffic Operator Relationship Specialty Start Date End Date Wilfredo Bernard MD [address] [place] [address] PCP - General Internal Medicine 10/07/22 Additional Source Comments The information contained in this document represents components of the legal health record. It is not the complete legal health record.[facility]
== END 2025-01-30 11:57 | disposition home or self-care (01) ==
LOC: HO.HMCC 11:24
PROVIDERS: PCP Internal Medicine; Visit Provider Internal Medicine
DX: Z00.00 Encounter for general adult medical examination without abnormal findings (principal); D35.2 Benign neoplasm of pituitary gland; E11.9 Type 2 diabetes mellitus without complications; I10 Essential (primary) hypertension; E03.8 Other specified hypothyroidism; E78.9 Disorder of lipoprotein metabolism, unspecified; I71.43 Infrarenal abdominal aortic aneurysm, without rupture; Z95.0 Presence of cardiac pacemaker; N40.1 Benign prostatic hyperplasia with lower urinary tract symptoms; N13.8 Other obstructive and reflux uropathy; G47.33 Obstructive sleep apnea (adult) (pediatric); Z99.89 Dependence on other enabling machines and devices

== ENCOUNTER → 2025-01-30 11:23 | Outpatient (BNVA) | payer MEDICARE, OTHER, SELFPAY | PROVIDERS: PCP Internal Medicine; Visit Provider Internal Medicine | DX: Z13.31 Encounter for screening for depression (principal); I10 Essential (primary) hypertension; D35.2 Benign neoplasm of pituitary gland; E03.8 Other specified hypothyroidism; E11.9 Type 2 diabetes mellitus without complications; I71.43 Infrarenal abdominal aortic aneurysm, without rupture; Z95.0 Presence of cardiac pacemaker; N40.1 Benign prostatic hyperplasia with lower urinary tract symptoms; N13.8 Other obstructive and reflux uropathy; G47.33 Obstructive sleep apnea (adult) (pediatric); Z99.89 Dependence on other enabling machines and devices | CPT/HCPCS: 96127; 99212 ==

== ENCOUNTER 2025-02-13 08:27 | Outpatient (AMB) | payer MEDICARE, OTHER, SELFPAY ==
--- NOTE | 2025-02-13 08:30 | MHC.OFFVIS ---
Intake Visit Reasons: OV-LT knee pain/possible Cortisone inj-last 06/26/24 Intake Note: Bandar is a 84 year old male who presents today for a follow up of his left knee osteoarthritis, last ijrzgcpu23/03/25. Patient reports his last injection gave him relief. He is wanting to talk about repeating the injection and seeing if there is any other treatment options besides surgery. Allergies morphine Allergy (Unknown, Verified 02/13/25 08:43) Unknown ENVIROMENTAL Allergy (Unknown, Uncoded 12/09/24 10:27) POST NASAL DRIP HPI HPI OV-LT knee pain/possible Cortisone inj-last 06/26/24: Details: Mr. Beauchamp is an 84-year-old male who presents to the office today accompanied by his for follow up of left knee pain due to osteoarthritis. Last cortisone injection was administered on 06/26/2024 which gave him relief. He reports that he was walking 1 day and he had a sharp increase in left knee pain. Ever since then he has had waxing and waning knee pain that is located mainly on the medial aspect of the knee. He is looking to discuss continuation of cortisone treatment or other treatment options available that exclude surgery. 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 Mother Colon cancer Brother No problems noted. Brother No problems noted. Sister No problems noted. Social History Housing: House Are you a primary post anesthesia care unit nurse to a significant other at home: No Do you presently have visiting nurse or other home services: No Alcohol intake: never Patient Tobacco Use Status: Former Tobacco user e-Cigarette/Vaping Use: Never Used service: Yes Current occupational status: retired Cognitive needs: No Hearing needs: No Vision needs: No Review of Systems Const All systems reviewed & are unremarkable except as noted in HPI and below Physical Exam Const General: cooperative, healthy appearing and no acute distress Resp Effort & Inspection: normal respiratory effort and able to speak in complete sentences Extrem Other: Left knee mild effusion. Mild tenderness to palpation along the medial joint line. No tenderness to palpation lateral joint line. Range of motion 0-100 degrees. NVI. Office Procedures AMB Joint Injection/Aspiration Joint Injection/Aspiration Primary Site: Left Knee Prep: site was prepped using aseptic technique, ethochloride spray was applied and injection warnings given Injected: 40 mg of, Decadron, with 3 mL of, 1% plain Lidocaine, 0.25% Bupivacaine and in the joint Approach Used: anterolateral Procedure: The patient tolerated the procedure well, but had some pain with the injection and there was some relief with the local anesthesia Coding - Large joint Procedure code (CPT) selection complete Assessment & Plan Assessment & Plan (1) Osteoarthritis of left knee: Code(s): M17.12 - Unilateral primary osteoarthritis, left knee Category: Medical Plan The patient was offered a cortisone injection in left knee. The patient was explained the risks, benefits, and alternatives to receiving this injection. After receiving consent for the injection, the patient had the procedure done while in the office today. The patient tolerated the procedure well with no complications. The risks, benefits, and alternatives to a corticosteroid injection were discussed with the patient, including the potential benefits of decreased inflammation and pain, improved function, and diagnostic value. Risks were reviewed, including post-injection flare, skin or fat atrophy, transient facial flushing, temporary elevation in blood glucose, bruising, and rare but serious complications such as infection, tendon weakening or rupture, and cartilage damage with repeated injections. Procedure-related discomfort and possible vasovagal symptoms were also explained. Alternatives were reviewed, including NSAIDs, physical therapy, activity modification, bracing, ice/heat, weight management, hyaluronic acid injections when appropriate, PRP or other orthobiologics, oral steroids, surgery depending on pathology, and observation. The patient verbalized understanding and elected to proceed. After receiving consent for the injection, the patient had the procedure done while in the office today. The patient tolerated the procedure well with no complications. Follow-up will be PRN, or sooner if needed Coding Level of Care Code Est Pt Level 3 (87794) Diagnoses Osteoarthritis of left knee M17.12 CPT Codes Coding - Large joint: 00481 - Large joint ([id number])
--- OUTSIDE RECORDS SUMMARY | 2025-02-13 08:31 | XMS_ITS | Clinical Summary ---
Author Organization [facility] Address [address] [place] [address] Phone Care Team Providers Care Quality Supervisor Name Role Phone Wilfredo Bernard MD Primary Care Provider [phone] Allergies Active Allergy Reactions Criticality Noted Date [...] 0.4 mg by mouth daily. Active Ca/D3/mag ox/zinc/naval aircrewman helicopter/eliseo /bor (CALCIUM 600-D3 PLUS, MAG-ZINC, ORAL) Take [...] VT lasting 3 seconds. AP 14.1% and EXHIBIT ARTIST less than 0.1%. No parameter changes. Plan: [...] Description 05/12/2025 10:20 AM EST Office Visit [facility] [address] [place] [address] [address]rd Floor, [address] [place] [address] Israel Gore MD [address] [place] [address] Health Maintenance Due Date Last Done Comments [...] EDT) SODIUM 141 133 - 146 mmol/L [facility] CHLORIDE 106 96 - 108 mmol/L [facility] POTASSIUM 4.0 3.3 - 5.1 mmol/L [facility] CO2 26 21 - 35 mmol/L [facility] BUN 19 6 - 19 mg/dL [facility] CREATININE 1.10 0.5 - 1.5 mg/dL [facility] GLUCOSE 99 70 - 99 mg/dL [facility] CALCIUM 8.8 8.4 - 10.3 mg/dL [facility] EGFR 68 >59 mL/min/1.7 3m2 [facility] Comment:Estimated glomerular filtration rate calculated using the CKD-EPI refit equation. ANION GAP 13 10 - 20 mmol/L [facility] Blood 10/07/2022 2:52 PM EDT 10/07/2022 2:56 PM EDT us Chuy Shah MD LAB BLOOD BKR ORDERABLES Fi nal Result [facility] [address] [place] [address] from Last 3 Months or Most Recently Relevant to Health Maintenance Insurance MEDICARE PART A & B [facility] SUPPLEMENT Care Teams Quality Supervisor Relationship Specialty Start Date End Date Wilfredo Bernard MD [address] [place] [address] PCP - General Internal Medicine 10/07/22 Additional Source Comments The information contained in this document represents components of the legal health record. It is not the complete legal health record.[facility]
== END 2025-02-13 09:19 | disposition home or self-care (01) ==
LOC: HO.HOS 08:28
PROVIDERS: PCP Internal Medicine; Visit Provider Physician Assistant
DX: M17.12 Unilateral primary osteoarthritis, left knee (principal)
CPT/HCPCS: 20610; 99213

== ENCOUNTER → 2025-02-13 08:27 | Outpatient (BNVA) | payer MEDICARE, OTHER, SELFPAY | PROVIDERS: PCP Internal Medicine; Visit Provider Physician Assistant | DX: M17.12 Unilateral primary osteoarthritis, left knee (principal) | CPT/HCPCS: 20610; 99212; J0665; J1100; J2003 ==

== ENCOUNTER 2025-02-24 11:37 | Outpatient (REF) | payer MEDICARE, OTHER, SELFPAY ==
[2025-02-24 14:44] LABS: Prostate Specific Antigen 0.72 ng/mL (<0.05-4.0)
== END 2025-02-24 11:38 | disposition home or self-care (01) ==
LOC: HO.HMGCLDS 11:37
PROVIDERS: Absent Provider Nurse Practitioner Family; PCP Internal Medicine; Visit Provider Internal Medicine
DX: N40.1 Benign prostatic hyperplasia with lower urinary tract symptoms (principal); N13.8 Other obstructive and reflux uropathy; I10 Essential (primary) hypertension; Z12.5 Encounter for screening for malignant neoplasm of prostate; Z95.0 Presence of cardiac pacemaker; E11.9 Type 2 diabetes mellitus without complications; E03.8 Other specified hypothyroidism; D35.2 Benign neoplasm of pituitary gland; M25.562 Pain in left knee
CPT/HCPCS: 36415; 84153; 99212

== ENCOUNTER 2025-02-24 11:37 | Outpatient (AMB) | payer MEDICARE, OTHER, SELFPAY ==
--- NOTE | 2025-02-24 11:40 | A.OFFPC_ITS ---
Vital Signs 02/24/25 11:41 Height 5 ft 11 in Weight 229 lb BMI 31.9 BP 132/74 Blood Pressure Location Lt brachial Position Sitting Pulse 69 Pulse Source Pulse Oximeter Pulse Oximetry (%) 97 Intake Visit Reasons: 3 week follow up Allergies morphine Allergy (Unknown, Verified 02/24/25 11:41) Unknown ENVIROMENTAL Allergy (Unknown, Uncoded 12/09/24 10:27) POST NASAL DRIP Medication List - Last Reconciled 02/24/25 by Wilfredo Bernard MD amlodipine 5 mg PO DAILY aspirin (Adult Aspirin Regimen) 81 mg PO DAILY bromocriptine 2.5 mg PO BEDTIME calcium carbonate-vitamin D3 600 mg-5 mcg (200 unit) 1 tab PO ONCE cetirizine (Allergy Relief (cetirizine)) 10 mg PO DAILY cholecalciferol (vitamin D3) 25 mcg PO DAILY finasteride 5 mg PO DAILY levothyroxine 100 mcg PO QAM losartan 100 mg PO DAILY rosuvastatin 20 mg PO DAILY tamsulosin 0.4 mg PO BEDTIME 90 days Tobacco use date assessed: 05/27/24 Fall risk assessment: No Falls in past year Last assessed Fall Risk: 02/24/25 Dental Screening Dental Screen Date: 05/27/24 HPI HPI Comments History of Present Illness Details History of Present Illness The patient is an 84 year old individual presenting for a follow-up on hypertension management. Essential Hypertension: - The patient was seen on January 30 for a wellness visit, where blood pressure was elevated. - Amlodipine 5 mg daily was added to the patient's existing losartan regimen. - The patient has been taking half a tab let of amlodipine and tolerating it well. - The patient monitors blood pressure at home and reports fluctuations, noting that readings are lower after exercise. Osteoarthritis of the knee: - The patient reports seeing an orthoped ic specialist for knee pain. Left - A cortisone injection in June was eff ective and improved walking ability. - A recent cortisone injection administe red approximately two weeks ago has not provided relief, and the patient reports that the knee pain has worsened in the last couple of days. - The patient inquired about gell inject ions as a potential treatment. Hypothyroidism: - The patient takes levothyroxine, which is managed by this office. Medical History: - Hypertension - Osteoarthritis of the knee, treated wi th cortisone injections - Hypothyroidism Social History: - Exercise: The patient participates in a [place] exercise program. - Advance directives: The patient is in the process of appointing the patient's daughter as the healthcare proxy. Diagnostic Results: - Laboratory studies: A recent CBC, elec trolytes, kidney function panel, and lipid panel were all stable and within normal limits. 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 Mother Colon cancer Brother No problems noted. Brother No problems noted. Sister No problems noted. Social History Housing: House Are you a primary med care manager to a significant other at home: No Do you presently have visiting nurse or other home services: No Alcohol intake: never Patient Tobacco Use Status: Former Tobacco user e-Cigarette/Vaping Use: Never Used service: Yes Current occupational status: retired Cognitive needs: No Hearing needs: No Vision needs: No Questionnaire Thrive Questionnaire Date Thrive assessed: 05/16/24 I am a: Patient What is your living situation today?: I have a steady place to live Within the past 12 months, did the food you bought not last and you didn't have the money to get more?: Never true Within the past 12 months, did you worry whether your food would run out before you got money to buy more?: Never true Do you have trouble paying for medicines?: No Do you have trouble getting transportation to medical appointments?: No Do you have trouble paying your heating and electricity bill?: No Do you have trouble taking care of your child, family member or friend?: No Do you have trouble with day-to-day activities such as bathing, preparing meals, shopping, managing finances, etc.?: No Are you currently unemployed and looking for a job?: No Are you interested in more education?: No Please select the resources that you would like help with: None Currently or been in a relationship where the following occur: No concerns reported THRIVE Score: 0 DIPAK-7 AMB Questionnaire DIPAK-7 Date DIPAK - 7 assessed: 05/16/24 Source: Developed by Drs. Judah Isabel, Willa Geiger, Farhad Malcolm and colleagues, with an educational maritza from [employer]. Review of Systems Narrative Review of Systems - General: No fever no chills - Neurological: No headaches no dizziness - Ear nose throat: No sore throat no hearing difficulty no ear pain - Cardiovascular: No syncope, no chest pain, no palpitations - Gastrointestinal: No nausea vomiting or diarrhea Physical exam (Primary Care) Vital Signs: Last Vital Signs Pulse 69 02/24/25 11:41 BP 132/74 02/24/25 11:41 Pulse Ox 97 02/24/25 11:41 BMI result Body Mass Index 31.9 Tobacco/Smoking Status: Tobacco use Status Tobacco use date assessed 05/27/24 02/24/25 11:43 Patient Tobacco Use Status Former Tobacco user 02/24/25 11:43 e-Cigarette/Vaping Use Never Used 02/24/25 11:43 Thrive Assessment: Date of Thrive Assessment Date Thrive assessed 05/16/24 02/24/25 11:43 Currently or been in a relationship where the following occur: No concerns reported Narrative Physical Exam General: No acute distress HEENT: No acute findings Neck: Supple Respiratory system: Able to talk in full sentences, no audible wheeze Cardiovascular: S1-S2 Gastrointestinal: No pain Extremities: Cortisone shot given for left knee pain, patient reports worsening pain despite treatment, both knees looks the same, ROM limited due to pain ELECTRICAL SOFTWARE ENGINEER: Alert awake oriented x3 motor intact Skin: Normal turgor Coding Level of Care Code Complex visit Add On G2211 Diagnoses Hypertension, essential I10 Cardiac pacemaker in situ Z95.0 Diet-controlled diabetes mellitus E11.9 Other specified hypothyroidism E03.8 Prolactinoma D35.2 Acute pain of left knee M25.562 Chronicity: acute Assessment & Plan Assessment & Plan (1) Hypertension, essential: Code(s): I10 - Essential (primary) hypertension Category: Medical (2) Cardiac pacemaker in situ: Comment: Medtronic dual-chamber pacemaker 08/07/24 Code(s): Z95.0 - Presence of cardiac pacemaker Category: Medical (3) Diet-controlled diabetes mellitus: Code(s): E11.9 - Type 2 diabetes mellitus without complications Category: Medical (4) Other specified hypothyroidism: Code(s): E03.8 - Other specified hypothyroidism Category: Medical (5) Prolactinoma: Comment: MRI brain WWO at [facility] in 2002: R pituitary 3 x 3 mm heterogenous enhancing lesion (reported) MRI brain WWO at [facility] in 2019: No specific pituitary lesion noted, heterogenous background pituitary enhancement noted (reported). 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 - Blood Pressure Monitoring: The patient was instructed to continue monitoring blood pressure at home. - Patient Education: Provided education on the correct technique for home blood pressure monitoring - Osteoarthritis of the knee: Advised the patient to contact the patient's energy specialist to discuss the ineffectiveness of the recent cortisone injection and to inquire about other treatment options, such as viscosupplementation. - Specialist Follow-up: The patient will proceed with the upcoming cardiology appointment. - Advance Care Planning: Provided the patient with healthcare proxy forms to complete. - Follow-up: The patient will return for a follow-up visit in four months. - continue meds, and diet control for diabetes and thyroid Medications: New amlodipine 5 mg (1/2 x 10 mg) PO DAILY 90 tabs 0RF Changed From bromocriptine 5 mg (2 x 2.5 mg) PO BEDTIME 180 tabs 0RF To bromocriptine 2.5 mg PO BEDTIME
[2025-02-24 11:41] VITALS: BP 132/74; PULSE 69; O2SAT 97; BMI 31.9
--- OUTSIDE RECORDS SUMMARY | 2025-02-24 13:48 | XMS_ITS | Clinical Summary ---
Author Organization [facility] Address [address] [place] [address] Phone Care Team Providers Care Wine Steward/Stewardess Name Role Phone Wilfredo Bernard MD Primary Care Provider [phone] Allergies Active Allergy Reactions Criticality Noted Date [...] 0.4 mg by mouth daily. Active Ca/D3/mag ox/zinc/microscopist/eliseo /bor (CALCIUM 600-D3 PLUS, MAG-ZINC, ORAL) Take [...] VT lasting 3 seconds. AP 14.1% and BARREL RACER less than 0.1%. No parameter changes. Plan: [...] Description 05/12/2025 10:20 AM EST Office Visit [facility] [address] [place] [address] [address]rd Floor, [address] [place] [address] Israel Gore MD [address] [place] [address] Health Maintenance Due Date Last Done Comments [...] EDT) SODIUM 141 133 - 146 mmol/L [facility] CHLORIDE 106 96 - 108 mmol/L [facility] POTASSIUM 4.0 3.3 - 5.1 mmol/L [facility] CO2 26 21 - 35 mmol/L [facility] BUN 19 6 - 19 mg/dL [facility] CREATININE 1.10 0.5 - 1.5 mg/dL [facility] GLUCOSE 99 70 - 99 mg/dL [facility] CALCIUM 8.8 8.4 - 10.3 mg/dL [facility] EGFR 68 >59 mL/min/1.7 3m2 [facility] Comment:Estimated glomerular filtration rate calculated using the CKD-EPI refit equation. ANION GAP 13 10 - 20 mmol/L [facility] Blood 10/07/2022 2:52 PM EDT 10/07/2022 2:56 PM EDT us Chuy Shah MD LAB BLOOD BKR ORDERABLES Fi nal Result [facility] [address] [place] [address] from Last 3 Months or Most Recently Relevant to Health Maintenance Insurance MEDICARE PART A & B [facility] MEDIC[facility] SUPPLEMENT Care Teams Wine Steward/Stewardess Relationship Specialty Start Date End Date Wilfredo Bernard MD [address] [place] [address] PCP - General Internal Medicine 10/07/22 Additional Source Comments The information contained in this document represents components of the legal health record. It is not the complete legal health record.[facility]
== END 2025-02-24 12:03 | disposition home or self-care (01) ==
LOC: HO.HMCC 11:37
PROVIDERS: PCP Internal Medicine; Visit Provider Internal Medicine
DX: I10 Essential (primary) hypertension (principal); Z95.0 Presence of cardiac pacemaker; E11.9 Type 2 diabetes mellitus without complications; D35.2 Benign neoplasm of pituitary gland; E03.8 Other specified hypothyroidism; M25.562 Pain in left knee

== ENCOUNTER 2025-03-02 12:12 | Outpatient (AMB) | payer MEDICARE, OTHER, SELFPAY ==
[2025-03-02 12:49] VITALS: BP 122/66; PULSE 77; BMI 31.4
--- NOTE | 2025-03-02 12:49 | MHC.OFFVIS ---
Vital Signs 03/02/25 12:49 Height 5 ft 11 in Weight 224 lb 13.944 oz BMI 31.4 BP 122/66 Blood Pressure Location Lt brachial Position Sitting Pulse 77 Pulse Source Pulse Oximeter Intake Visit Reasons: 6m w device check Allergies morphine Allergy (Unknown, Verified 02/24/25 11:41) Unknown ENVIROMENTAL Allergy (Unknown, Uncoded 12/09/24 10:27) POST NASAL DRIP Medication List - Last Reconciled 03/02/25 by Marsha Dominguez NP-C amlodipine 5 mg (1/2 x 10 mg) PO DAILY aspirin (Adult Aspirin Regimen) 81 mg PO DAILY bromocriptine 2.5 mg PO BEDTIME calcium carbonate-vitamin D3 600 mg-5 mcg (200 unit) 1 tab PO ONCE cetirizine (Allergy Relief (cetirizine)) 10 mg PO DAILY cholecalciferol (vitamin D3) 25 mcg PO DAILY finasteride 5 mg PO DAILY levothyroxine 100 mcg PO QAM losartan 100 mg PO DAILY rosuvastatin 20 mg PO DAILY tamsulosin 0.4 mg PO BEDTIME 90 days HPI HPI 6m w device check: Details: Bandar is an 84-year-old male with past medical history of hypertension, hyperlipidemia, abdominal aortic aneurysm, left bundle branch block, nonobstructive CAD, mild sleep apnea now on CPAP, symptomatic sinus bradycardia, 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 Today he reports he has been having some fatigue otherwise feels well. No lightheadedness, presyncope, syncope, falls. He is not having any chest discomfort, shortness of breath at rest or with activity. He has a mild discomfort at the pacemaker site at times. He will get some tingling in his left hand randomly. He is noticing elevated heart rates when he does physical activities. He feels that this is holding him back as he stops what he is doing to rest. He says he was previously on metoprolol but it was taken away prior to the pacemaker placement. Taking all meds as directed. Patient asks if his heart problems are cause from [place]. 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 Mother Colon cancer Brother No problems noted. Brother No problems noted. Sister No problems noted. Social History Housing: House Are you a primary ocular care aide to a significant other at home: No Do you presently have visiting nurse or other home services: No Alcohol intake: never Patient Tobacco Use Status: Former Tobacco user e-Cigarette/Vaping Use: Never Used service: Yes Current occupational status: retired Cognitive needs: No Hearing needs: No Vision needs: No Review of Systems Const All systems reviewed & are unremarkable except as noted in HPI and below Denies weakness ENT Denies dizziness Card Denies chest pain, Denies chest pain with activity, Denies syncope, Denies rapid heart rate, Denies pedal edema, Denies edema, Denies leg edema, Denies lightheadedness, Denies palpitations, Denies dyspnea, Denies dyspnea on exertion and Denies orthopnea Resp Denies cough, Denies dyspnea and Denies dyspnea on exertion GI Denies hematochezia and Denies change in stool character Musc Denies abnormal gait, Denies muscle cramps, Denies muscle weakness, Denies numbness, Denies radiating pain into limb and Denies tingling Neuro Denies abnormal gait, Denies dizziness, Denies syncope, Denies numbness, Denies tingling and Denies weakness Endo Denies palpitations Physical Exam Vital Signs: Last Vital Signs Pulse 77 03/02/25 12:49 BP 122/66 03/02/25 12:49 BMI result Body Mass Index 31.4 Const General: cooperative, healthy appearing, comfortable and no acute distress Orientation/consciousness: patient oriented x3 Neck Neck: Yes normal visual inspection Resp Effort & Inspection: normal respiratory effort Auscultation: clear to auscultation bilaterally, no rales, no rhonchi and no wheezes Cardio Rate: regular rate Rhythm: regular rhythm Heart sounds: S1 normal heart sound present, S2 normal heart sound present, no gallops, no murmurs and no rubs Neuro General: patient oriented x3 Extrem General: Yes normal to inspection, No no pedal edema and No calf tenderness Psych Appearance: grossly normal Mental Status: mental status grossly normal Speech and movement: Normal speech and movement present Office Procedures Cardiac Device Check Cardiac Device Check Details: Today, Medtronic dual-chamber pacemaker interrogation today shows battery 13.4 years, AAI to DDD mode, low rate 60, right atrial threshold 0.75 volts at 0.4 milliseconds, RV threshold 1 volt at 0.4 milliseconds V paced 18.9%, a paced 32.7% 31763-KG Cardiac Device Check, pacemaker dual lead Procedure code (CPT) selection complete Assessment & Plan Assessment & Plan (1) Bradycardia: Code(s): R00.1 - Bradycardia, unspecified Category: Medical Plan: Prior symptomatic bradycardia and evidence of high-degree heart block with prior presyncope/syncopal event. Dual chamber pacemaker placement 08/07/2024 and he has done well since then with no presyncope or syncope. He has noticing more elevated heart rates with activity that are causing him to hold back on what he does. Pacemaker does show rates only over 100. Will start on metoprolol XL 25 mg daily. He will monitor his blood pressure at home and call if his systolic is running low. (2) Cardiac pacemaker in situ: Comment: Medtronic dual-chamber pacemaker 08/07/24 Code(s): Z95.0 - Presence of cardiac pacemaker Category: Medical Plan: Functioning well on interrogation today. Remote monitoring in use. Will arrange for next office interrogation 6 months, sooner if needed. (3) CAD (coronary artery disease): Code(s): I25.10 - Atherosclerotic heart disease of [place] coronary artery without angina pectoris Category: Medical Plan: Cardiac evaluation for prior reports of fatigue and activity intolerance does show nonobstructive coronary disease.: He has cardiac risks of a strong family history of CAD in 3 of his siblings, age, hypertension, hyperlipidemia. Echocardiogram done 12/28/2022 shows EF 54%, no valve abnormalities, mild increase in the LV wall thickness. Nuclear stress test done 12/29/2022 shows no clear ischemia or infarct, perfusion defects in the septum and inferior wall probably related to known left bundle branch block, normal EF. CTA of the coronary arteries was done on 10/17/2023 showing nonobstructive coronary artery disease with minimal stenosis of the left main, mild stenosis of the proximal LAD and minimal stenosis of the mid LAD, mild scattered atherosclerotic plaque in the descending thoracic aorta. He was then diagnosed with sleep apnea. His fatigue has improved since wearing his CPAP. - continue management for nonobstructive CAD with daily aspirin indefinitely. Continue rosuvastatin with ideal LDL goal less than 70. Signs and symptoms of angina reviewed with him. (4) Activity intolerance related to fatigue: Code(s): R53.83 - Other fatigue Category: Medical Plan: Much improved following the addition of nightly CPAP and now with pacemaker. (5) LBBB (left bundle branch block): Code(s): I44.7 - Left bundle-branch block, unspecified Category: Medical Plan: History of left bundle branch block. (6) AAA (abdominal aortic aneurysm): Code(s): I71.40 - Abdominal aortic aneurysm, without rupture, unspecified Category: Medical Qualifiers: Abdominal aorta location: infrarenal aorta Presence of rupture: without rupture Qualified Code(s): I71.43 - Infrarenal abdominal aortic aneurysm, without rupture Plan: History of abdominal aortic aneurysm. A CTA of the abdomen and pelvis was done on 03/05/2023 showing abdominal aortic aneurysm 4.5 cm. A repeat CTA of the abdomen 01/15/2025 shows infrarenal aortic aneurysm 4.8 cm. Being followed by Dr. Odonnell last October. He is on aspirin and statin. [place] LDL goal less than 70. Labs done 01/16/2024 showed LDL 63. Reviewed light physical activity and no heavy lifting. Plan I discussed with the patient that his episodes of rapid heart rate with activity are likely due to the discontinuation of metoprolol. I recommended restarting a low dose of metoprolol 25 mg daily to help control the rate and improve his exercise tolerance. I explained that with the pacemaker in place, we no longer need to worry about his heart rate going too low. I also reassured him that the discomfort at his pacemaker site is not unusual, the site is well-healed, and surgical revision is not necessary unless it becomes very uncomfortable or erodes through the skin. The patient understood and agreed with the plan. I informed the patient that I would fax my finalized note, which includes his diagnoses, to his [place] primary care provider, Lucas Stratton, as requested. We will have him follow up in six months, and he was advised to call if he does not feel well on the metoprolol. Medications: New metoprolol succinate ER 25 mg PO DAILY 30 tabs 5RF Patient Instructions: - Start taking metoprolol 25 mg once a day. This medication will help keep your heart from beating too fast when you are active. - Continue to check your blood pressure at home in the morning and afternoon and keep a log. - Call our office if you feel unwell or if your blood pressure readings are too low after starting the new medication. - We will send a copy of today's visit note to your [place] primary care provider, Lucas Stratton. - You have a follow-up appointment scheduled in 6 months. Please call sooner if you have any problems. Patient was informed and verbally consented to the use of an ambient scribe for clinic note documentation during this visit. Visit time spent on chart review, interview, assessment, orders, documentation. Coding Level of Care Code Est Pt Level 4 (94133) Complex visit Add On G2211 Diagnoses Bradycardia R00.1 Cardiac pacemaker in situ Z95.0 CAD (coronary artery disease) I25.10 Activity intolerance related to fatigue R53.83 LBBB (left bundle branch block) I44.7 Infrarenal abdominal aortic aneurysm (AAA) without rupture I71.43 Abdominal aorta location: infrarenal aorta Presence of rupture: without rupture CPT Codes Cardiac Device Check - Cardiac Device 2: [id number] Cardiac Device Check, pacemaker dual lead ([id number]) Time Spent (min) 28
== END 2025-03-02 13:11 | disposition home or self-care (01) ==
LOC: HO.HCS 12:13
PROVIDERS: PCP Internal Medicine; Visit Provider Nurse Practitioner Family
DX: R00.1 Bradycardia, unspecified (principal); Z95.0 Presence of cardiac pacemaker; I25.10 Atherosclerotic heart disease of native coronary artery without angina pectoris; R53.83 Other fatigue; I44.7 Left bundle-branch block, unspecified; I71.43 Infrarenal abdominal aortic aneurysm, without rupture
CPT/HCPCS: 93280; 99214; G2211

== ENCOUNTER → 2025-03-02 12:12 | Outpatient (BNVA) | payer MEDICARE, OTHER, SELFPAY | PROVIDERS: PCP Internal Medicine; Visit Provider Nurse Practitioner Family | DX: Z45.010 Encounter for checking and testing of cardiac pacemaker pulse generator [battery] (principal); R00.1 Bradycardia, unspecified; R53.83 Other fatigue; I25.10 Atherosclerotic heart disease of native coronary artery without angina pectoris; I71.43 Infrarenal abdominal aortic aneurysm, without rupture | CPT/HCPCS: 93280; 99212 ==

== ENCOUNTER 2025-03-24 10:20 | Outpatient (AMB) | payer MEDICARE, OTHER, SELFPAY ==
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
--- OUTSIDE RECORDS SUMMARY | 2025-03-24 13:50 | XMS_ITS | Clinical Summary ---
Author Organization [facility] Address [address] [place] [id number] Phone Care Team Providers Care Crane Crew Supervisor Name Role Phone Wilfredo Bernard MD Primary Care Provider [phone] Allergies Active Allergy Reactions Criticality Noted Date [...] mg by mouth daily. Active Ca/D3/mag ox/zinc/copy editor/eliseo /bor (CALCIUM 600-D3 PLUS, MAG-ZINC, ORAL) Take [...] VT lasting 3 seconds. AP 14.1% and GRADES 1 THRU 6 HOME TEACHER less than 0.1%. No parameter changes. Plan: [...] Description 05/12/2025 10:20 AM EST Office Visit [facility] [address], [address] [place] [address] Israel Gore MD [address] [place] [address] Health Maintenance Due Date Last Done Comments Adult Td,Tdap Booster 1942 TSH LEVEL 1942 DEPRESSION SCREENING 1954 PNEUMOCOCCAL VACCINES (50+ y ears) (1 of 1 - PCV) 1992 RSV VACCINE (1 - 1-dose 75+ series) 2017 ZOSTER VACCINES (2 of 2) 08/06/2019 06/11/2019 CREATININE LEVEL 10/08/2023 10/07/2022 POTASSIUM LEVEL 10/08/2023 10/07/2022 INFLUENZA VACCINE (#1) 2024 COVID-19 VACCINE ( 2024-2 6 season) 2024 BLOOD PRESSURE 02/11/2025 [...] EDT) SODIUM 141 133 - 146 mmol/L [facility] CHLORIDE 106 96 - 108 mmol/L [facility] POTASSIUM 4.0 3.3 - 5.1 mmol/L [facility] CO2 26 21 - 35 mmol/L [facility] BUN 19 6 - 19 mg/dL [facility] CREATININE 1.10 0.5 - 1.5 mg/dL [facility] GLUCOSE 99 70 - 99 mg/dL [facility] CALCIUM 8.8 8.4 - 10.3 mg/dL [facility] EGFR 68 >59 mL/min/1.7 3m2 [facility] Comment:Estimated glomerular filtration rate calculated using the CKD-EPI refit equation. ANION GAP 13 10 - 20 mmol/L [facility] Blood 10/07/2022 2:52 PM EDT 10/07/2022 2:56 PM EDT us Chuy Shah MD LAB BLOOD BKR ORDERABLES Fi nal Result [facility] [address] [place] [address] from Last 3 Months or Most Recently Relevant to Health Maintenance Insurance MEDICARE PART A & B [employer] [facility] SUPPLE[facility] Care Teams Crane Crew Supervisor Relationship Specialty Start Date End Date Wilfredo Bernard MD [address] [facility] [place] [address] PCP - General Internal Medicine 10/07/22 Additional Source Comments The information contained in this document represents components of the legal health record. It is not the complete legal health record.[facility]
== END 2025-03-24 11:52 | disposition home or self-care (01) ==
LOC: HO.HUSH 10:21
PROVIDERS: PCP Internal Medicine; Visit Provider Nurse Practitioner Family
DX: N40.1 Benign prostatic hyperplasia with lower urinary tract symptoms (principal); R35.1 Nocturia; N13.8 Other obstructive and reflux uropathy; N52.9 Male erectile dysfunction, unspecified; N39.43 Post-void dribbling; Z13.9 Encounter for screening, unspecified
CPT/HCPCS: 99213; G2211

== ENCOUNTER → 2025-03-24 10:20 | Outpatient (BNVA) | payer MEDICARE, OTHER, SELFPAY | PROVIDERS: PCP Internal Medicine; Visit Provider Nurse Practitioner Family | DX: N40.1 Benign prostatic hyperplasia with lower urinary tract symptoms (principal); N13.8 Other obstructive and reflux uropathy; R35.1 Nocturia; N52.9 Male erectile dysfunction, unspecified; N39.43 Post-void dribbling; Z13.9 Encounter for screening, unspecified | CPT/HCPCS: 51798; 81003; 99212 ==